=== PATIENT | female | born 1945 | race Caucasian/White ===

== ENCOUNTER 2017-10-07 01:42 | Inpatient (IN) | payer OTHER, MEDICARE ==
--- NOTE | 2017-10-01 15:59 | Cons- Neurosurgical ---
General Information and HPI Consulting Request Date of Consult: 10/01/17 Requested By: Dania HARRIS,Ray Rose Reason for Consult: Pseudo claudication and lumbar spinal stenosis Source of Information: patient Exam Limitations: no limitations History of Present Illness: 71-year-old right-handed lady in satisfactory condition intensive neurosurgical claudication many years back. She was operated on and 2013 Dr. Gonzales tediously from which she did very well however his symptoms have returned and she is unable to walk a city block without having to stop. She has cramping in her legs sensation of weakness as well as discomfort in her back Symptoms are worse with activity bending standing and walking is somewhat improved with rest Review of systems is positive for hearing problems She has been in physical therapy extensively without any strong persistent improvement Allergies/Medications Allergies: Coded Allergies: Sulfa (Sulfonamide Antibiotics) (Intermediate, SKIN TURNS PURPLE/HOT 09/24/17) Penicillins (Mild, ITCHING 09/24/17) aspirin (HX GASTRITIS 09/24/17) atorvastatin (PER PT MED LIST 09/24/17) prednisone (Severe, VISION CHANGES 09/24/17) Uncoded Allergies: ENVIRONMENTAL (UNKNOWN 07/20/13) MULTIPLE ANTIBIOTICS (UNKNOWN 07/20/13) Home Med List: Acetaminophen (Tylenol) 325 MG TABLET PAIN (Reported) Azelastine/Fluticasone (Dymista Nasal [place]) 137 MCG-50 MCG/SPRAY SPRAY.PUMP 1 SPRAY NASB PRN ALLERGIES (Reported) Budesonide/Formoterol Fumarate (Symbicort 160-4.5 Mcg Inhaler) 160 MCG-4.5 MCG/ ACTUATION HFA.AER.AD ASTHMA (Reported) Cetirizine HCl (Zyrtec) 10 MG CAPSULE aLLERGIES (Reported) Cholecalciferol (Vitamin D3) (Vitamin D) 1,000 UNIT TABLET 1 TAB PO DAILY SUPPLEMENT (Reported) Clopidogrel Bisulfate (Plavix) 75 MG TABLET 1 TAB PO DAILY ANTICOAGULATION ( Reported) Cyclobenzaprine HCl 5 MG TABLET SLEEP (Reported) Diltiazem HCl (Cartia Xt) 120 MG CAP.ER.24H 1 CAP PO DAILY CARDIAC (Reported) Docusate Sodium (Colace) 100 MG CAPSULE 1 CAP PO BID STOOL SOFTENER (Reported ) Gabapentin 300 MG CAPSULE 1 CAP PO PRN PAIN (Reported) Glimepiride 2 MG TABLET 1.5 TAB PO DAILY DM (Reported) Iron Carb,Gl/FA/B12/C/Docusate (Ferralet 90 Tablet) 90 MG-1 MG-12 MCG-120 MG-50 MG TABLET 1 TAB PO DAILY SUPPLEMENT (Reported) Losartan Potassium (Cozaar) 25 MG TABLET 1 TAB PO DAILY HTN (Reported) Magnesium Oxide (Magnesium) 400 MG CAPSULE 1 CAP PO DAILY SUPPLEMENT ( Reported) Melatonin 3 MG TABLET 1 TAB PO QPM SLEEP AID (Reported) Montelukast Sodium (Singulair) 10 MG TABLET 1 TAB PO DAILY ALLERGIES ( Reported) Multiple Vitamin (Multivitamins) 1 EACH TABLET 1 TAB PO DAILY SUPPLEMENT ( Reported) Multivit-Min/FA/Lutein/Zeaxant (Macular Vitamin Tablet) 500 MCG-5 MG-1 MG TABLET SUPPLEMENT (Reported) Omeprazole 40 MG CAPSULE.DR 1 CAP PO DAILY GERD (Reported) Sitagliptin Phosphate (Januvia) 100 MG TABLET 1 TAB PO DAILY DM (Reported) Tobramycin (Tobrex) 0.3 % DROPS 2 GTT OPH TID EYE (Reported) Current Medications: see attached list Past History Medical History Blood Transfusion Hx: No Neurological: TIA EENT: NONE Cardiovascular: hypertension, hyperlipidemia Respiratory: asthma, bronchitis, COPD, MRSA PNA Gastrointestinal: NONE Hepatic: NONE Renal: NONE Musculoskeletal: osteoarthritis, chronic back pain s/p spinal fusion; OA CARPAL TUNNEL Psychiatric: NONE Endocrine: NIDDM Blood Disorders: NONE Cancer(s): NONE 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 Home Who Do You Live With? spouse Services at Home: None Primary Language: Pashto Smoking Status: Never Smoked ETOH Use: denies use Illicit Drug Use: denies illicit drug use Living Will? unknown Power of Appliquer/HCP? unknown Name of POA/HCP: Dr. Rollins Other Social History: Not relevant Functional Ability ADLs Independent: dressing. Ambulation: independent IADLs Independent: shopping. Employment History Employment: Retired Profession/Employer: not applicable Retired? yes Review of Systems Review of Systems: She denies bowel or bladder or sexual dysfunction. She has hearing problems. Review of Systems Constitutional: Denies: no symptoms. EENTM: Reports: hearing changes. Denies: no symptoms. Cardiovascular: Denies: no symptoms. Respiratory: Denies: no symptoms. GI: Denies: no symptoms. Genitourinary: Denies: no symptoms. Musculoskeletal: Reports: see HPI. Skin: Denies: no symptoms. Neurological/Psychological: Denies: no symptoms. Hematologic/Endocrine: Denies: no symptoms. Immunologic/Allergic: Denies: no symptoms. All Other Systems: Reviewed and Negative Exam & Diagnostic Data Vital Signs and I&O . she stands 4 foot 11 and weighs 186pounds Physical Exam: To palpation of the incision. Preserved range of forward bending limitation of hyperextension. Her gait is within normal limits and she is able to stand on tiptoes Motor strength is 5 over 5 in all groups. She is areflexic at knee and ankle. Her toes are indifference. She has negative straight leg raising Physical Exam General Appearance: no apparent distress Head: atraumatic Eyes: Bilateral: normal appearance. Ears, Nose, Throat: normal pharynx Neck: normal inspection Respiratory: normal breath sounds Cardiovascular: regular rate/rhythm Breasts deferred to primary care Peripheral Pulses: 2+ carotid (R), 2+ carotid (L) Gastrointestinal: soft Rectal: deferred Back: normal inspection, normal range of motion Extremities: normal inspection Neurologic/Psych: no motor/sensory deficits Cranial Nerves: normal speech Reflexes: 0: knee (R), knee (L), ankle (R), ankle (L). Skin: intact Lymphatic: no anterior cervical fidel Reproductive: deferred Pelvic: deferred Other Physical Findings: Scars from previous surgery Last 24 Hours of Labs: Pending results from primary care Imaging Results: CT and MRI demonstrated satisfactory fusion, L4 5 L5-S1, shows a grade 1 retrolisthesis of L2 on L3 anterolisthesis grade 1 of L5 and S1 with a collapsed disc space at L5-S1. She has very severe canal stenosis and facet overgrowth at L2-3 and at L5-S1, significant spondylosis with irritation of nerve roots and the foramen Other Results: Pending Assessment/Plan Assessment/Plan She has severe spinal stenosis above and below levels were previous surgery. She requires surgery for treatment of cervical claudication Consult Acknowledgment - Thank you for your consult request.
[~2017-10-07] VITALS: Ht 149.9 cm; Wt 89.0 kg
[~2017-10-07 01:42] MED LIST: 8HR ARTHRITIS650 M1 PO; ALBUTEROL0.09 MG/A2 IH; AMARYL2 M1; ARTIFICIAL TEAR15 M2 OP; ATROVENT 0.02%2.5 ML INH; AZITHROMYCIN250 MG PO; CARTIA XT120 M1 PO; CHERATUSSIN AC120 ML PO; CHLORASEPTI1 LOZ/PAC PO; CLOPIDOGREL75 MG PO; COLACE100 M1 PO; COLACE100 MG PO; COZAAR 100MG T100 MG PO; COZAAR25 M1 PO; CRESTOR20 MG PO; CYCLOBENZAPRINE5 M2 PO; DIOVAN 40 MG40 MG PO; DIOVAN80 MG PO; DUONEB 3 MG/3 ML3 ML INH/SOL; DYMISTA NASAL S23 GM NASB; FERRALET 90 TA1 EACH PO; FLUTICASON0.05 MG/A2 NS; GABAPENTIN300 M2 PO; GLIMEPIRIDE2 MG PO; GLYBURIDE2.5 MG PO; GLYBURIDE5 MG PO; GUANFACINE HCL1 MG PO; HYDRALAZINE HCL50 MG PO; HYDRODIURIL 2525 MG PO; JANUVIA 100MG100 MG PO; JANUVIA100 M1 PO; LANSOPRAZOLE30 MG PO; LEADER MELATONIN5 MG PO; LIDODERM 5% PAT1 PAT EXT; LOSARTAN POTASS50 MG PO; MACULAR VITAMI1 EACH PO; MAGNESIUM OXID400 MG PO; MAGNESIUM400 M1 PO; MEDROL 2 MG TABL2 MG PO; MEDROL DOSEPAK1 PA1 PO; MELATONIN10 M5 PO; MELATONIN3 M4 PO; METHYLPREDNISOLO4 MG PO; MIRALAX17 GM PO; MONTELUKAST SOD10 MG PO; MOXIFLOXACIN H400 M1 PO; MULTIVITAMIN1 TAB PO; MULTIVITAMINS1 EAC9 PO; NORVASC 5MG TAB5 MG PO; NOVOLOG100 U/ML SC; OMEPRAZOLE40 M1 PO; PLAVIX75 M1 PO; PROAIR HFA0.09 MG/Ac INH; PROAIR HFA8.5 GM INH; ROBITUSSIN COU118 ML PO; ROBITUSSIN W/CO10 ML PO; Robitussin PO; SINGULAIR10 M1 PO; SYMBICORT 160/41 PUF INH; SYMBICORT 16010.2 GM INH; TESSALON PERLE100 MG PO; TOBREX5 ML OPH; TRAMADOL50 MG PO; TYLENOL TAB 32325 MG PO; TYLENOL325 M1; TYLENOL325 MG PO; VALSARTAN80 MG PO; VANCOMYCIN 11000 MG IV; VANCOMYCIN HC1000 MG IV; VENTOLIN H0.09 MG/Ac INH; VICODIN5-300 PO; VITAMIN C500 M3 PO; VITAMIN C500 M6 PO; VITAMIN D NATU400 IU PO; VITAMIN D1000 UNIT PO; ZYRTEC ALLERGY10 MG PO; ZYRTEC10 M6 PO
--- NOTE | 2017-10-07 16:06 | RADIOLOGY REPORT ---
EXAMINATION: XR LUMBOSACRAL SPINE CLINICAL INFORMATION: 71-year-old female for L2-L3 and L5-S1 fusion. COMPARISON: MRI of the lumbosacral spine done on 10/06/[address] of the lumbosacral spine done on 01/05/2017. TECHNIQUE: Multiple fluoroscopic spot radiographs were obtained at the time of the procedure. FLUOROSCOPY TIME: 1 minute and 7 seconds. FINDINGS: Fluoroscopic assistance is provided at the time of the spinal fusion. Postsurgical changes of previous posterior spinal fusion are noted at L3 through L5 showing intact hardware and satisfactory alignment. New radiopaque hardware is identified at L2-L3 and L5-S1 disc space. IMPRESSION: New radiopaque hardware is visualized at L2-L3 and L5-S1. Please refer to Dr. Najera's operative note for further full details.
--- NOTE | 2017-10-07 17:11 | Operative Report ---
Operative/Inv Procedure Report Surgery Date: 10/07/17 Name of Procedure: #1 decompressive lumbar laminectomy L2-3 #2 decompressive lumbar laminectomy L5 S1. #3 revision laminectomy L3-4 #4 neurolysis L3 4 #5 preparation of space for fusion L5-S1 #6 reconstitution of graft material #7 insertion of TL ORIF fuse F UAC cage L5-S1 left As secondary #8 stealth registration #9 stealth guided pedicle screw insertion L2-3 L5 S1 #10 arthrodesis bilateral L2 to S1 #11 pedicle screw insertion L3 4 L4 5 bilateral #12 installation of vancomycin antibiotic Pre-Operative Diagnosis: #1 spondylolisthesis L2-3 #2 spinal stenosis L2-3 #3 spinal stenosis L5-S1 #4 status post fusion L3 to L5 Post-Operative Diagnosis: same Estimated Blood Loss: 1200cc Surgeon/Server Programmer: Dania HARRIS,Ray Rose(co-surgeon) MD Dempsey Michael Anesthesia: general endotracheal tube Monitors: neurophysiology arterial line IV Fluids: D5NS Implants: 11 11 mm x 24 mm x 4 fuse cage at L5-S1 Urine Output: Satisfactory Drains: 2xhemovacs Specimens: explanted hardware Microbiology: none Tourniquet: none Complications: none Condition: stable Operative Indication: 71-year-old woman who is status post multilevel fusion and did well for a few years and then developed significant back pain and leg pain especially in her thighs and difficulty ambulating Her films demonstrated significant spinal stenosis at the level above and below the fusion with an element of instability at the level above the fusion and to a lesser degree at the level beneath the fusion Indication for surgery alternative risks and possible complication were discussed at length patient elected to have surgery performed O guarantees given all questions answered Operative/Procedure Note Note: Patient was brought to the operating room supine was intubated supine and placed prone on the Leo table. All surfaces were double checked with myself Ray Najera MD anesthesia to verify that there were no compromises The patient was given vancomycin intravenously because of the allergies Her back was prepped and draped in usual sterile manner and infiltrated with lidocaine and epinephrine. Sharp dissection was carried down to the aponeurosis was taken down on both sides of the midline and the lamina of 2 and 5 were identified and the transverse processes of 2 and 5 likewise identified. The previous hardware was identified and from scar tissue and the underlying bone and was then removed by Ray Najera MD and this we dictated separately Following this a film was obtained demonstrating a marker under the lamina of L2 and following this the spinous processes of L2 was removed the lamina of L2 fins and limp full laminectomy at L2-3 accomplished with a medial facetectomy and foraminotomy. It was noted that there was still significant stenosis at that point in this required taking down the root a no growth of lamina as well as residual lamina at the L3 4 level. This requires significant neural lysis then to free the dura and nerve tissue from the scar Attention was then directed to the L5-S1 level where the spinous process of L5 was removed and the whole lamina of L5 removed and a full exposure L5-S1 accomplish and foraminotomies accomplished bilaterally and a foraminotomy and facetectomy accomplished medially on the left. Following this the dura was retracted the annulus incised at the L5-S1 level disc removed and using dilation instruments 689 and 10 up to 11 mm it was verified that the space can tolerate a cage 11 mm. DBF graft on was prepared with patient's autologous blood and reconstituted. Following this the space was prepped by aggressive curettes used and upper up- biting and straight pituitaries following which the cage was inserted in the standard fashion under direct visualization and under C-arm control and with continuous neurophysiological monitoring which remained normal Attention was then directed to the L2-3 space 40 approach was made from the right hand side doing the exact same decompression insertion and placement of cage and this was done by Ray Najera MD will be dictated separately is to be noted that in both cases the spaces prior to an the insertion of the cage were packed with DBF graft on the autologous bone Following this, and this is going to be dictated separately, the stealth registration was accomplished pedicle screws were inserted bilaterally at L2. There were then also inserted at S1. The O arm was used to verify positioning and this suggested repositioning the left handed the screw at L2 which was done. After correct position was verified and all the neurophysiological monitoring was normal V spaces were prepped for the fusion the rods were inserted over the pedicles and were attached both autologous and allograft material was used in both gutters to accomplish arthrodesis 2 Hemovac drains were placed vancomycin was placed over the both gutters. The muscle was closed in depth with 0 Dexon muscle and aponeurosis were then closed with 0 Dexon subcutaneous and subcuticular tissue were closed with 3-0 Dexon and skin closed with stainless steel maya a full dressing was applied and the patient was in satisfactory condition upon removal to the recovery room Findings: Scarring, stenosis, spondylosis Discharge Disposition: PACU Additional Comments: Neurophysiological monitoring remained perfectly normal. Anesthesia had a lot of intervention required to keep the blood pressure and a satisfactory range CC: Dania HARRIS,Ray Rose
[2017-10-07 17:27] LABS: ABSOLUTE BASOPHIL COUNT 0.1 /CUMM (0.0-0.2); ABSOLUTE EOSINOPHIL COUNT 0.1 /CUMM (0.0-0.7); ABSOLUTE GRANULOCYTE CT 17.6 /CUMM (1.4-6.5); ABSOLUTE LYMPH COUNT 3.3 /CUMM (1.2-3.4); ABSOLUTE MONOCYTE COUNT 1.9 /CUMM (0.10-0.60); BASOPHIL % 0.6 % (0.0-2.0); EOSINOPHIL % 0.6 % (0-5); GRANULOCYTE % 76.4 % (42.2-75.2); MEAN CORPUSCULAR HGB 29.1 PG (27.0-31.0); MEAN CORPUSCULAR HGB CONC 33.8 G/DL (33.0-37.0); MEAN CORPUSCULAR VOLUME 85.9 FL (81.0-99.0); MEAN PLATELET VOLUME 7.9 FL (7.4-10.4); PLATELET COUNT 193 /CUMM (130-400); RBC DISTRIBUTION WIDTH 13.6 % (11.5-14.5); RED BLOOD CELL CT 3.61 /CUMM (4.20-5.40)
--- NOTE | 2017-10-07 17:46 | RADIOLOGY REPORT ---
EXAMINATION: XR LUMBOSACRAL SPINE CLINICAL INFORMATION: L2-L3, L3-L4, L4-L5 and L5-S1 laminectomy and fusion performed in operating room. COMPARISON: Recent lumbar spine MRI from 10/06/2017. TECHNIQUE: Intraoperative fluoroscopic and intraoperative CT imaging of lumbar spine performed. DLP was 1098 mGycm Fluoro time was 11.42 sec DAP was 692 Rcm2 FINDINGS: Please refer to accession # [id number]. The intraoperative CT images were obtained. Patient has undergone multilevel laminectomy and spinal fusion. The pedicle screws are in satisfactory position. Findings include intervertebral cage placement at L2-L3 and L5-S1. Postoperative edema/fluid and gas in the posterior paraspinal region. IMPRESSION: Intraoperative CT imaging of lumbar spine was utilized.
[2017-10-07 18:26] LABS: ABSOLUTE BASOPHIL COUNT 0.1 /CUMM (0.0-0.2); ABSOLUTE EOSINOPHIL COUNT 0.1 /CUMM (0.0-0.7); ABSOLUTE GRANULOCYTE CT 19.6 /CUMM (1.4-6.5); ABSOLUTE LYMPH COUNT 3.1 /CUMM (1.2-3.4); BASOPHIL % 0.2 % (0.0-2.0); EOSINOPHIL % 0.4 % (0-5); GRANULOCYTE % 78.9 % (42.2-75.2); HEMATOCRIT 31.4 % (37-47); MEAN CORPUSCULAR HGB 28.8 PG (27.0-31.0); MEAN CORPUSCULAR HGB CONC 33.6 G/DL (33.0-37.0); MEAN CORPUSCULAR VOLUME 85.8 FL (81.0-99.0); MEAN PLATELET VOLUME 7.9 FL (7.4-10.4); PLATELET COUNT 193 /CUMM (130-400); RBC DISTRIBUTION WIDTH 13.5 % (11.5-14.5); RED BLOOD CELL CT 3.66 /CUMM (4.20-5.40); WHITE BLOOD CELL COUNT 24.8 /CUMM (4.8-10.8)
--- NOTE | 2017-10-07 18:52 | RADIOLOGY REPORT ---
EXAMINATION: XR PORTABLE CHEST CLINICAL INFORMATION: 71-year-old woman post intubation. COMPARISON: 09/25/2017 chest radiograph TECHNIQUE: Portable frontal view of the chest was obtained. FINDINGS: Lung volumes are somewhat low, accentuating normal bronchovascular markings. A new endotracheal tube is seen with its tip at the level of the thoracic inlet, about 3.5 cm from the dashawn. No definite focal airspace consolidation or overt pulmonary edema is appreciated. Heart size is approximately stable. IMPRESSION: Low lung volumes with endotracheal tube placement as described.
--- NOTE | 2017-10-07 19:30 | Cons- CRCU ---
General Information and HPI Consulting Request Date of Consult: 10/07/17 Requested By: Dr Najera Reason for Consult: Hypotension requiring pressors Source of Information: old records Exam Limitations: unable to give history, clinical condition, physical impairment History of Present Illness: This is a 71-year-old female with past medical history significant for asthma, COPD not on home oxygen, history of multiple admissions for MRSA pneumonia, hypertension, hyperlipidemia, diabetes mellitus, TIA on Plavix, insomnia, GERD, osteoarthritis, carpal tunnel syndrome, peripheral vascular disease, bilateral lung nodules, previous occluded right internal carotid artery with no significant flow, chronic back pain status post spinal fusion in 2012, was admitted to surgical service on 10/06/2017 for severe back pain, and claudication, found to have severe spinal stenosis requiring laminectomy. She is status post lumbar laminectomy on 10/07/2017, underwent surgery for 9 hours, intubated for the procedure, hypotensive requiring pressors. Medical team was consulted for management of hypotension/ventilator management. Patient was intubated, we couldn't get any history from her. However according to the charts, Patient has extensive neurosurgical history. She has chronic back pain, underwent lumbar surgery in 2012. However patient has been having back pain, bilateral leg pain, thigh pain associated with lower extremity weakness for a few months. Increased with activity, bending, sitting, walking. Decreased with rest. No improvement with physical therapy. MRI BACK 10/06/2017 Status post posterior lumbar interbody fusion with decompressive laminectomies at L3-L4 and L4-L5 with a stable mild anterolisthesis at the L4-L5 level. Retrosubluxation at L2-L3 with a diffuse disc bulge and broad-based right posterolateral disc protrusion are stable. Severe central canal stenosis with thecal sac compression and exuberant facet arthropathy. PACU EVENTS She has very severe canal stenosis and facet overgrowth at L2-3 and at L5-S1, significant spondylosis with irritation of nerve roots and the foramen. Underwent decompressive lumbar laminectomy L2-L3, L5-S1, revision laminectomy L3 -L4 by on 10/07/2017. She was intubated for the surgery, which lasted for about 9 hours with 1200 mL blood loss. She did have a Cell Saver and apparently she did receive back about half a liter of blood. Patient was under general anesthesia for a prolonged period of time with continuous neurophysiological monitoring. She was receiving propofol and subsequently fentanyl. Apparently during the surgery she became significantly bradycardic and went into junctional rhythm. Initially she was hemodynamically stable and subsequently she became profoundly hypotensive during the surgery requiring more than 5 L of normal saline resuscitation. She was treated with epinephrine drip with resolution of her junctional rhythm now in sinus bradycardia. And slowly the epinephrine drip is now being weaned off. According to the documentation, review of systems was negative except for above. Allergies/Medications Allergies: Coded Allergies: Sulfa (Sulfonamide Antibiotics) (Intermediate, SKIN TURNS PURPLE/HOT 09/24/17) Penicillins (Mild, ITCHING 09/24/17) aspirin (HX GASTRITIS 10/06/17) ASA->BLEEDING atorvastatin (PER PT MED LIST 09/24/17) prednisone (Severe, VISION CHANGES 09/24/17) Uncoded Allergies: ENVIRONMENTAL (UNKNOWN 07/20/13) MULTIPLE ANTIBIOTICS (UNKNOWN 07/20/13) Home Med List: Acetaminophen (8HR Arthritis Pain Relief) 650 MG TABLET.ER 2 TAB PO QHS PAIN (Reported) Albuterol Sulfate (Proair Hfa) 90 MCG HFA.AER.AD 2 PUF INH PRN ASTHMA/ ALLERGIES (Reported) Ascorbate Calcium (Vitamin C) 500 MG TABLET 1 TAB PO DAILY SUPPLEMENT ( Reported) Azelastine/Fluticasone (Dymista Nasal [place]) 137 MCG-50 MCG/SPRAY SPRAY.PUMP 1 SPRAY NASB PRN ALLERGIES (Reported) Budesonide/Formoterol Fumarate (Symbicort 160-4.5 Mcg Inhaler) 160 MCG-4.5 MCG/ ACTUATION HFA.AER.AD 2 PUFF INH BID ASTHMA/ALLERGIES (Reported) Cetirizine HCl (Zyrtec) 10 MG CAPSULE 1 CAP PO DAILY ALLERGIES (Reported) Cholecalciferol (Vitamin D3) (Vitamin D) 1,000 UNIT TABLET 1 TAB PO DAILY SUPPLEMENT (Reported) Clopidogrel Bisulfate (Plavix) 75 MG TABLET 1 TAB PO DAILY ANTICOAGULATION ( Reported) Cyclobenzaprine HCl 5 MG TABLET 1 TAB PO QHS MUSCLE SPASMS (Reported) Diltiazem HCl (Cartia Xt) 120 MG CAP.ER.24H 1 CAP PO DAILY CARDIAC (Reported) Docusate Sodium (Colace) 100 MG CAPSULE 1 CAP PO BID STOOL SOFTENER (Reported ) Gabapentin 300 MG CAPSULE 1 CAP PO PRN PAIN (Reported) Glimepiride 2 MG TABLET 1.5 TAB PO DAILY DM (Reported) Iron Carb,Gl/FA/B12/C/Docusate (Ferralet 90 Tablet) 90 MG-1 MG-12 MCG-120 MG-50 MG TABLET 1 TAB PO DAILY SUPPLEMENT (Reported) Losartan Potassium (Cozaar) 25 MG TABLET 1 TAB PO DAILY HTN (Reported) Magnesium Oxide (Magnesium) (Unknown Strength) CAPSULE (Unknown Dose) PO TID SUPPLEMENT (Reported) Melatonin 10 MG CAPSULE 1 CAP PO QPM SLEEP (Reported) Montelukast Sodium (Singulair) 10 MG TABLET 1 TAB PO DAILY ALLERGIES ( Reported) Multiple Vitamin (Multivitamins) 1 EACH TABLET 1 TAB PO DAILY SUPPLEMENT ( Reported) Multivit-Min/FA/Lutein/Zeaxant (Macular Vitamin Tablet) 500 MCG-5 MG-1 MG TABLET 1 TAB PO DAILY SUPPLEMENT (Reported) Omeprazole 40 MG CAPSULE.DR 1 CAP PO DAILY AC GERD (Reported) Sitagliptin Phosphate (Januvia) 100 MG TABLET 1 TAB PO DAILY DM (Reported) Tobramycin (Tobrex) 0.3 % DROPS 2 GTT OPH TID EYE (Reported) Current Medications: Current Medications Sig/Clementine Start time Last Medication Dose Route Stop Time Status Admin Acetaminophen 1,000 MG .STK-MED ONE 10/07 0645 DC IV 10/07 0646 Cefazolin Sodium 2,000 MG ONCE 10/07 0000 NR IV 10/07 2359 Fentanyl Citrate 250 MCG .STK-MED ONE 10/07 0645 DC IM 10/07 0646 Midazolam HCl 4 MG .STK-MED ONE 10/07 0646 DC IM 10/07 0647 Morphine Sulfate 8 MG .STK-MED ONE 10/07 0646 DC IM 10/07 0647 Remifentanil 3 MG .STK-MED ONE 10/07 0646 DC IV 10/07 0647 Review of Systems Comments ROS UNOBTAINABLE Past History Medical History Blood Transfusion Hx: No Neurological: TIA EENT: NONE Cardiovascular: hypertension, hyperlipidemia Respiratory: asthma, bronchitis, COPD, MRSA PNA Gastrointestinal: NONE Hepatic: NONE Renal: NONE Musculoskeletal: osteoarthritis, chronic back pain s/p spinal fusion; OA CARPAL TUNNEL Psychiatric: NONE Endocrine: NIDDM Blood Disorders: NONE Cancer(s): NONE 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 Home Who Do You Live With? spouse Primary Language: Croatian Smoking Status: Never Smoked ETOH Use: denies use Illicit Drug Use: denies illicit drug use Living Will? unknown Power of Information Services Vice President/HCP? unknown Name of POA/HCP: Dr. Rollins Other Social History: Not relevant Functional Ability ADLs Independent: dressing. Ambulation: independent IADLs Independent: shopping. Employment History Employment: Retired Profession/Employer: not applicable Exam & Diagnostic Data Last 24 Hrs of Vital Signs/I&O Vital Signs Date Time Temp Pulse Resp B/P B/P Pulse O2 O2 Flow FiO2 Mean Ox Delivery Rate 10/07 1730 100 Physical Exam General Appearance: well developed/nourished, no apparent distress, sedated, intubated Head: atraumatic, normal appearance Ears, Nose, Throat: normal pharynx Neck: normal inspection Respiratory: decreased breath sounds, rhonchi Cardiovascular: regular rate/rhythm Gastrointestinal: normal bowel sounds, soft, non-tender Back: S/P LUMBAR LAMINECTOMY AND [address] Extremities: no edema Last 48 Hrs of Labs/Chucky: Laboratory Tests 10/07/17 1805: pH 7.45, pCO2 25 L, pO2 228 H, HCO3 17 L, ABG O2 Sat (Measured) 98.0, P-50 ( Temp Corrected) N, Carboxyhemoglobin 0.3 L, O2 Concentration % 100%, Temperature 97.2, Respiration Rate 16, O2 Delivery Method ESPRIT, Vent Mode AC, Expiratory Pressure 5, Tidal Volume 500, Phlebotomy Draw Site CRUZITO 10/07/17 1754: Magnesium Cancelled 10/07/17 1710: CBC w Diff NO MAN DIFF REQ, RBC 3.61 L, MCV 85.9, MCH 29.1, MCHC 33.8, RDW 13.6 , MPV 7.9, Gran % 76.4 H, Lymphocytes % 14.3 L, Monocytes % 8.1, Eosinophils % 0.6, Basophils % 0.6, Absolute Granulocytes 17.6 H, Absolute Lymphocytes 3.3, Absolute Monocytes 1.9 H, Absolute Eosinophils 0.1, Absolute Basophils 0.1 10/07/17 1655: Anion Gap 8, Estimated GFR 54 L, BUN/Creatinine Ratio 19.0, Magnesium 1.1 L, Troponin I 0.03, Cortisol PM Sample 27.9 H, CBC w Diff NO MAN DIFF REQ, RBC 3.66 L, MCV 85.8, MCH 28.8, MCHC 33.6, RDW 13.5, MPV 7.9, Gran % 78.9 H, Lymphocytes % 12.4 L, Monocytes % 8.1, Eosinophils % 0.4, Basophils % 0.2, Absolute Granulocytes 19.6 H, Absolute Lymphocytes 3.1, Absolute Monocytes 2.0 H, Absolute Eosinophils 0.1, Absolute Basophils 0.1 Assessment/Plan CRCU Impression/Plan: This is a 71-year-old female with past medical history significant for asthma, COPD not on home oxygen, history of multiple admissions for MRSA pneumonia, hypertension, hyperlipidemia, diabetes mellitus, TIA on Plavix, insomnia, GERD, osteoarthritis, carpal tunnel syndrome, peripheral vascular disease, bilateral lung nodules, previous occluded right internal carotid artery with no significant flow, chronic back pain status post spinal fusion in 2012, was admitted to surgical service on 10/06/2017 for severe back pain, and claudication, found to have severe spinal stenosis requiring laminectomy. She is status post lumbar laminectomy on 10/07/2017, underwent surgery for 9 hours, intubated for the procedure, hypotensive requiring pressors. Medical team was consulted for management of hypotension/ventilator management. Vitals afebrile, heart rate 50-60, blood pressure 110/70, saturating at 99, intubated tidal volume 500, FiO2 60%, PEEP 5, respiratory rate 16. labs Leukocytosis 23, no bandemia, hemoglobin 10.5, hematocrit 31, platelets 190 ABG 7.4, 2009 Sodium 134, potassium 4.2, BUN 19 creatinine 1 Mag 1.1 CHEST x-ray low lung volumes for with endotracheal tube placement, no consolidation or pulmonary edema - Severe lumbar spinal stenosis status post laminectomy She has very severe canal stenosis and facet overgrowth at L2-3 and at L5-S1, significant spondylosis with irritation of nerve roots and the foramen. She was admitted under surgical service on 10/06/2017 for elective surgery. * Underwent decompressive lumbar laminectomy L2-L3, L5-S1, revision laminectomy L3-L4 by on 10/07/2017. * She was intubated after the surgery * Surgery lasted for about 9 hours with 1200 mL blood loss. She did have a Cell Saver and apparently she did receive back about half a liter of blood. * Postoperative wound care as per neurosurgery team * [address] * Venodyne boots ordered * No anticoagulationplavix home med/ DVT prophylaxis given back surgery * Patient was given 1 dose of cefazolin before her surgery. She was started on vancomycin as per primary team. * Continue antibiotics as per surgical team Postoperative respiratory failure Patient had extensive lumbar surgery for 8 hours, required anesthesia for long time, propofol, remifentanil. She was intubated postoperatively for respiratory failure due to prolonged anesthesia. Also she was noted to have apnea periods during her surgery. * Status post intubated * Ventilator settings respiratory rate 16, tidal volume 500, PEEP 5, FiO2 60% * Started on fentanyl IV drip-titrate to mild sedation * Aspiration precautions * Continue to monitor vitals and ventilator settings * DUO. Nebs every 8 hours * ABG in the a.m. * Chest x-ray in a.m. * We'll keep her on ventilator tonight given her prolonged periods of apnea during surgery * Will start weaning trials in morning and extubate if needed * IV Protonix 40 daily Hypotension/SHOCK requiring pressors Patient was found to have significant hypotension during her surgery, SBP was noted to be around 60-70. Hypotension most likely from propofol sedation for longer periods of time. Also patient was found to have significant blood loss 1200 mL due to extensive lumbar surgery which might have led to hypotension. Patient received 5 L of IV fluid resuscitation during her surgery. Later she was started on levo fed through her PICC line to maintain adequate blood pressure support, map goal greater than 65. * Epinephrine drip now weaned off * Blood pressure ranging in between 120-130 * If necessary will start dopamine drip for hypotension given her sinus bradycardia * Continue D5 Ringer's lactated 75 mL per hour, adjust accordingly based on her urine output * Monitor urine output * Map goals 60-65 * Monitor hemoglobin and hematocrit closely * Transfuse if hemoglobin falls less than 7 * Follow-up random cortisol level * If patient's blood pressure starts to rise can give her amlodipine followed by her home medication losartan Significant sinus bradycardia/junctional rhythm Patient was found to be in in junctional rhythm, later sinus bradycardia during her surgery. Sinus bradycardia most likely from prolonged GERD propofol sedation. She follows Dr. Young aquarist. Echocardiogram in 2014 showed ejection fraction 65%. * Will get troponin and EKG * Continuous telemetry monitoring * Cardiology consult in a.m. * Rule out ACS Leukocytosis Patient was found to have elevated WBC count 23,000, no bandemia at the time of admission. She has history of chronic leukocytosis with the baseline WBC ranging around 15,000. Chest x-ray was clear, no pneumonia or consolidation was found. Will follow-up her urine cultures. * Monitor for any fever, worsening leukocytosis * No source of infection found * Most possibly from STRESS/surgery * Patient is on postoperative antibiotics vancomycin as per surgical team Hypomagnesemia Patient was found to have low mag 1.1. Repleted with 2 bags of IV mag sulfate Follow-up electrolytes in the a.m. Follow-up phosphorus History of diabetes mellitus Patient has diabetes mellitus type 2, takes oral hypoglycemic agents. Fingersticks every 4 hours Novolin nothing by mouth sliding scale was ordered Continue d5 RL Hold her home medications oral hypoglycemic agents glimepiride and sitagliptin for now COPD continue [facility] nebs H/O TIA 2012- Prominent calcified plaque is seen in the right ICA as described, with only trickle flow noted in the proximal and mid ICA, and no definite flow in the distal ICA. There is no hemodynamically significant stenosis in the left ICA. * Continue holding Plavix 75 daily given back surgery. History of hypertension Takes losartan 25 and Cardizem 120 extended release daily Hold them for now given hypotension Patient is full code Nothing by mouth, intubated Pain pathway fentanyl drip Alps given back surgery for DVT prophylaxis Housekeeping IntubatION-yes PICC line-10/06/2017-double lumen peripheral line-yes Arterial line-yes-10/07/2017 Foleys catheter yes NG tube-none back surgery- [address] Consult Acknowledgment - Thank you for your consult request.
--- NOTE | 2017-10-07 19:34 | Cons- CRCU ---
General Information and HPI Consulting Request Date of Consult: 10/07/17 Requested By: surg History of Present Illness: PT followed by Dr. Kahn as out pt This is a lady with extensive past history which includes MRSA pneumonia, significant asthma history, chronic bronchitis, significant chronic low back pain, hypertension, diabetes, hyperlipidemia, previous spirometry and pulmonary function test showing mild obstructive pulmonary disease, peripheral vascular disease, bilateral lung nodules which has been stable, coronary artery calcification, goiter, previous occluded right internal carotid artery with no significant flow, previous lumbar surgery now with significant pain and claudication had a very prolonged surgery today with extensive lumbar disc and vertebrae surg. Patient did go through significant amount of blood loss approximately 1200 mL. She did have a Cell Saver and apparently she did receive back about half a liter of blood. Patient was under general anesthesia for a prolonged period of time with continuous neurophysiological monitoring. She was receiving propofol and subsequently fentanyl. Apparently during the surgery she became significantly bradycardic and went into junctional rhythm. Initially she was hemodynamically stable and subsequently she became profoundly hypotensive during the surgery requiring more than 5 L of normal saline resuscitation. She was treated with epinephrine drip with resolution of her junctional rhythm now in sinus bradycardia. And slowly the epinephrine drip is now being weaned off. When I saw her she was intubated just coming out of anesthesia. She was awake and was following commands. She did move all her limbs. The heart rate was about 52 and she was in sinus bradycardia. No other history could be obtained. Allergies/Medications Allergies: Coded Allergies: Sulfa (Sulfonamide Antibiotics) (Intermediate, SKIN TURNS PURPLE/HOT 09/24/17) Penicillins (Mild, ITCHING 09/24/17) aspirin (HX GASTRITIS 10/06/17) ASA->BLEEDING atorvastatin (PER PT MED LIST 09/24/17) prednisone (Severe, VISION CHANGES 09/24/17) Uncoded Allergies: ENVIRONMENTAL (UNKNOWN 07/20/13) MULTIPLE ANTIBIOTICS (UNKNOWN 07/20/13) Home Med List: Acetaminophen (8HR Arthritis Pain Relief) 650 MG TABLET.ER 2 TAB PO QHS PAIN (Reported) Albuterol Sulfate (Proair Hfa) 90 MCG HFA.AER.AD 2 PUF INH PRN ASTHMA/ ALLERGIES (Reported) Ascorbate Calcium (Vitamin C) 500 MG TABLET 1 TAB PO DAILY SUPPLEMENT ( Reported) Azelastine/Fluticasone (Dymista Nasal [place]) 137 MCG-50 MCG/SPRAY SPRAY.PUMP 1 SPRAY NASB PRN ALLERGIES (Reported) Budesonide/Formoterol Fumarate (Symbicort 160-4.5 Mcg Inhaler) 160 MCG-4.5 MCG/ ACTUATION HFA.AER.AD 2 PUFF INH BID ASTHMA/ALLERGIES (Reported) Cetirizine HCl (Zyrtec) 10 MG CAPSULE 1 CAP PO DAILY ALLERGIES (Reported) Cholecalciferol (Vitamin D3) (Vitamin D) 1,000 UNIT TABLET 1 TAB PO DAILY SUPPLEMENT (Reported) Clopidogrel Bisulfate (Plavix) 75 MG TABLET 1 TAB PO DAILY ANTICOAGULATION ( Reported) Cyclobenzaprine HCl 5 MG TABLET 1 TAB PO QHS MUSCLE SPASMS (Reported) Diltiazem HCl (Cartia Xt) 120 MG CAP.ER.24H 1 CAP PO DAILY CARDIAC (Reported) Docusate Sodium (Colace) 100 MG CAPSULE 1 CAP PO BID STOOL SOFTENER (Reported ) Gabapentin 300 MG CAPSULE 1 CAP PO PRN PAIN (Reported) Glimepiride 2 MG TABLET 1.5 TAB PO DAILY DM (Reported) Iron Carb,Gl/FA/B12/C/Docusate (Ferralet 90 Tablet) 90 MG-1 MG-12 MCG-120 MG-50 MG TABLET 1 TAB PO DAILY SUPPLEMENT (Reported) Losartan Potassium (Cozaar) 25 MG TABLET 1 TAB PO DAILY HTN (Reported) Magnesium Oxide (Magnesium) (Unknown Strength) CAPSULE (Unknown Dose) PO TID SUPPLEMENT (Reported) Melatonin 10 MG CAPSULE 1 CAP PO QPM SLEEP (Reported) Montelukast Sodium (Singulair) 10 MG TABLET 1 TAB PO DAILY ALLERGIES ( Reported) Multiple Vitamin (Multivitamins) 1 EACH TABLET 1 TAB PO DAILY SUPPLEMENT ( Reported) Multivit-Min/FA/Lutein/Zeaxant (Macular Vitamin Tablet) 500 MCG-5 MG-1 MG TABLET 1 TAB PO DAILY SUPPLEMENT (Reported) Omeprazole 40 MG CAPSULE.DR 1 CAP PO DAILY AC GERD (Reported) Sitagliptin Phosphate (Januvia) 100 MG TABLET 1 TAB PO DAILY DM (Reported) Tobramycin (Tobrex) 0.3 % DROPS 2 GTT OPH TID EYE (Reported) Review of Systems Comments Could not be obtained intubated sedated Past History Medical History Blood Transfusion Hx: No Neurological: TIA EENT: NONE Cardiovascular: hypertension, hyperlipidemia Respiratory: asthma, bronchitis, COPD, MRSA PNA Gastrointestinal: NONE Hepatic: NONE Renal: NONE Musculoskeletal: osteoarthritis, chronic back pain s/p spinal fusion; OA CARPAL TUNNEL Psychiatric: NONE Endocrine: NIDDM Blood Disorders: NONE Cancer(s): NONE 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 Home Who Do You Live With? spouse Primary Language: Luxembourgish Smoking Status: Never Smoked ETOH Use: denies use Illicit Drug Use: denies illicit drug use Living Will? 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 Rollins Other Social History: Not relevant Functional Ability ADLs Independent: dressing. Ambulation: independent IADLs Independent: shopping. Employment History Employment: Retired Profession/Employer: not applicable Exam & Diagnostic Data Last 24 Hrs of Vital Signs/I&O Vital Signs Date Time Temp Pulse Resp B/P B/P Pulse O2 O2 Flow FiO2 Mean Ox Delivery Rate 10/07 1730 100 Last 48 Hrs of Labs/Chucky: Laboratory Tests 10/07/17 1805: pH 7.45, pCO2 25 L, pO2 228 H, HCO3 17 L, ABG O2 Sat (Measured) 98.0, P-50 ( Temp Corrected) N, Carboxyhemoglobin 0.3 L, O2 Concentration % 100%, Temperature 97.2, Respiration Rate 16, O2 Delivery Method ESPRIT, Vent Mode AC, Expiratory Pressure 5, Tidal Volume 500, Phlebotomy Draw Site [place] 10/07/17 1754: Magnesium Cancelled 10/07/17 1710: CBC w Diff NO MAN DIFF REQ, RBC 3.61 L, MCV 85.9, MCH 29.1, MCHC 33.8, RDW 13.6 , MPV 7.9, Gran % 76.4 H, Lymphocytes % 14.3 L, Monocytes % 8.1, Eosinophils % 0.6, Basophils % 0.6, Absolute Granulocytes 17.6 H, Absolute Lymphocytes 3.3, Absolute Monocytes 1.9 H, Absolute Eosinophils 0.1, Absolute Basophils 0.1 10/07/17 1655: Anion Gap 8, Estimated GFR 54 L, BUN/Creatinine Ratio 19.0, Magnesium 1.1 L, Troponin I 0.03, Cortisol PM Sample Pending, CBC w Diff NO MAN DIFF REQ, RBC 3.66 L, MCV 85.8, MCH 28.8, MCHC 33.6, RDW 13.5, MPV 7.9, Gran % 78.9 H, Lymphocytes % 12.4 L, Monocytes % 8.1, Eosinophils % 0.4, Basophils % 0.2, Absolute Granulocytes 19.6 H, Absolute Lymphocytes 3.1, Absolute Monocytes 2.0 H, Absolute Eosinophils 0.1, Absolute Basophils 0.1 Assessment/Plan CRCU Impression/Plan: CORTEZ Obese lady Intubated Vitals reviewed HR 52 sinus bp 110/70 sat 99 on 60 percent fio2 Moves all limbs Neck supp no jvd, bruit noted Chest reduced bs, no rhonchi, mild wheezing Abd soft obese non tender Back s/p surg with 2 drains Ext trace edema neuro intact This is a lady with extensive past history which includes MRSA pneumonia, significant asthma history, chronic bronchitis, significant chronic low back pain, hypertension, diabetes, hyperlipidemia, previous spirometry and pulmonary function test showing mild obstructive pulmonary disease, peripheral vascular disease, bilateral lung nodules which has been stable, coronary artery calcification, goiter, previous occluded right internal carotid artery with no significant flow, previous lumbar surgery now with significant pain and claudication had extensive surgery today with extensive lumbar surgery. Patient did go through significant amount of blood loss approximately 1200 mL. She did have a Cell Saver and apparently she did receive back about half a liter of blood. Patient was under general anesthesia for a prolonged period of time with continuous neurophysiological monitoring. She was receiving propofol and subsequently fentanyl. Apparently during the surgery she became significantly bradycardic and went into junctional rhythm. Initially she was hemodynamically stable and subsequently she became profoundly hypotensive during the surgery requiring more than 5 L of normal saline resuscitation. She was treated with epinephrine drip with resolution of her junctional rhythm now in sinus bradycardia. And slowly the epinephrine drip is now being weaned off. Attempted spontaneous breathing trial was not sucessful and hence needs to be intubated overnight ISSUES include * Postoperative respiratory failure due to prolonged anesthesia now noted periods of apnea during postanesthesia (patient had extensive lumbar surgery and a very long anesthesia time) * Significant bradycardia, junctional rhythm, significant hypotension during prolonged period of anesthesia which included propofol and fentanyl as she needed to have neurophysiological monitoring. This may be related to propofol causing significant bradycardia. Acute ischemic heart disease needs to be ruled out but that seems less likely. Her initial troponin is stable. EKG now pending. Patient seems to have sinus bradycardia at this time. Initially required epinephrine drip now this is being weaned off. * Significant blood loss due to extensive lumbar surgery, with hypotension and shock requiring vasopressors and aggressive fluid resuscitation now improved. Appears euvolemic and patient appears to be aggressively resuscitated already * Severe peripheral vascular disease coronary artery disease history. Patient has had complete obstruction of her carotid artery on the right side no evidence suggestive of acute stroke at this time as she was moving all her limbs and following commands * Mild Obstructive lung disease with sig reversible component by history, previous smoking history, previous recurrent pneumonia with MRSA infection in the past * Morbid obesity with signs and symptoms suggestive of sleep apnea * History of DM, HTN, PVD on plavix now held, severe Chronic pain RECOMMENDATION * Keep on the ventilator tonight as she has prolonged periods of apnea * If sedation is needed please start fentanyl drip and titrate to mild sedation. * Check random cortisol level * If she becomes hypotensive we will start her on dopamine drip which would also help a heart rate * Fingerstick glucose to be checked every 4 hours as she is diabetic and was on oral hypoglycemic agents in the past * D5 lactated Ringer's at 75 mL * Venodyne boots * Watch urine output and blood pressure * Hold antihypertensives for now to the blood pressure comes up * If the blood pressure starts to rise can give amlodipine followed by losartan if needed * Orogastric tube if needed * Nebulizer therapy with DuoNeb every 8 hours * We will start weaning trials in the morning and extubate if needed * Repeat chest x-ray in am * Check EKG and troponin * Keep sugars around 150 pt is critically ill tts 90 mins with the patient discussed with anesthesia, geological technical officer and surg staff and OR nurse Consult Acknowledgment - Thank you for your consult request.
[2017-10-07 20:00] VITALS: BP 160/70
--- NOTE | 2017-10-07 20:54 | PN- Orthopedic ---
See Addendum Subjective Subjective: Patient intubated, awake and alert, complaining of pain in her lower back Objective Vital Signs and I&Os Vital Signs Date Time Temp Pulse Resp B/P B/P Pulse O2 O2 Flow FiO2 Mean Ox Delivery Rate 10/08 1999 40 10/07 1730 100 Vital signs stable, afebrile, blood pressure 160/70. Heart rate 68, normal sinus rhythm, oxygen 100% on ventilator Physical Exam: Well-developed well-nourished Awake and alert, following commands HEENT: Atraumatic, extraocular motion intact, intubated Neck: Supple, no lymphadenopathy Respiratory: No respiratory distress, on ventilator Extremities: Bilateral lower extremities are neurovascularly intact with sensation motor grossly intact CLARIBEL drains in place, holding self suction, approximately 10 mL of bloody drainage in each Neuro: Alert Skin: Warm and dry, no rash on exposed skin Results Last 48 Hours of Labs: Laboratory Tests 10/07 10/07 10/07 1805 1754 1710 Blood Gas pH (7.35 - 7.45 PH) 7.45 pCO2 (35 - 45 TORR) 25 L pO2 (80 - 100 TORR) 228 H HCO3 (21 - 28 MEQ/L) 17 L ABG O2 Sat (Measured) (>96.0 %) 98.0 P-50 (Temp Corrected) N Carboxyhemoglobin (1.5 - 5.0 %) 0.3 L O2 Concentration % 100% Temperature (97.0 - 100.0 FARH) 97.2 Respiration Rate (BPM) 16 O2 Delivery Method ESPRIT Vent Mode AC Expiratory Pressure (CMH2O/P) 5 Tidal Volume (CC) 500 Chemistry Magnesium Cancelled Hematology CBC w Diff NO MAN DIFF REQ WBC (4.8 - 10.8 /CUMM) 23.0 H RBC (4.20 - 5.40 /CUMM) 3.61 L Hgb (12.0 - 16.0 G/DL) 10.5 L Hct (37 - 47 %) 31.0 L MCV (81.0 - 99.0 FL) 85.9 MCH (27.0 - 31.0 PG) 29.1 MCHC (33.0 - 37.0 G/DL) 33.8 RDW (11.5 - 14.5 %) 13.6 Plt Count (130 - 400 /CUMM) 193 MPV (7.4 - 10.4 FL) 7.9 Gran % (42.2 - 75.2 %) 76.4 H Lymphocytes % (20.5 - 51.1 %) 14.3 L Monocytes % (1.7 - 9.3 %) 8.1 Eosinophils % (0 - 5 %) 0.6 Basophils % (0.0 - 2.0 %) 0.6 Absolute Granulocytes (1.4 - 6.5 /CUMM) 17.6 H Absolute Lymphocytes (1.2 - 3.4 /CUMM) 3.3 Absolute Monocytes (0.10 - 0.60 /CUMM) 1.9 H Absolute Eosinophils (0.0 - 0.7 /CUMM) 0.1 Absolute Basophils (0.0 - 0.2 /CUMM) 0.1 Miscellaneous Phlebotomy Draw Site [facility] 10/07 1655 Chemistry Sodium (137 - 145 mmol/L) 134 L Potassium (3.5 - 5.1 mmol/L) 4.2 Chloride (98 - 107 mmol/L) 105 Carbon Dioxide (22 - 30 mmol/L) 20 L Anion Gap (5 - 16) 8 BUN (7 - 17 mg/dL) 19 H Creatinine (0.5 - 1.0 mg/dL) 1.0 Estimated GFR (>60 ml/min) 54 L BUN/Creatinine Ratio (7 - 25 %) 19.0 Magnesium (1.6 - 2.3 mg/dL) 1.1 L Troponin I (< 0.11 ng/ml) 0.03 Cortisol PM Sample (1.7 - 14.1) 27.9 H Hematology CBC w Diff NO MAN DIFF REQ WBC (4.8 - 10.8 /CUMM) 24.8 H RBC (4.20 - 5.40 /CUMM) 3.66 L Hgb (12.0 - 16.0 G/DL) 10.5 L Hct (37 - 47 %) 31.4 L MCV (81.0 - 99.0 FL) 85.8 MCH (27.0 - 31.0 PG) 28.8 MCHC (33.0 - 37.0 G/DL) 33.6 RDW (11.5 - 14.5 %) 13.5 Plt Count (130 - 400 /CUMM) 193 MPV (7.4 - 10.4 FL) 7.9 Gran % (42.2 - 75.2 %) 78.9 H Lymphocytes % (20.5 - 51.1 %) 12.4 L Monocytes % (1.7 - 9.3 %) 8.1 Eosinophils % (0 - 5 %) 0.4 Basophils % (0.0 - 2.0 %) 0.2 Absolute Granulocytes (1.4 - 6.5 /CUMM) 19.6 H Absolute Lymphocytes (1.2 - 3.4 /CUMM) 3.1 Absolute Monocytes (0.10 - 0.60 /CUMM) 2.0 H Absolute Eosinophils (0.0 - 0.7 /CUMM) 0.1 Absolute Basophils (0.0 - 0.2 /CUMM) 0.1 Assessment/Plan Assessment/Plan Status post 4 level lumbar fusion, L2-3, L3 4, L4 5, L5-S1 secondary to spinal stenosis and previous lumbar fusion Admitted into the ICU for overnight monitoring secondary to junctional bradycardia and hypotension intraoperative and immediately postoperatively. Patient is currently stable. Arrhythmia discussed with Dr. Young who reviewed EKG, now in normal sinus rhythm, continue telemetry monitoring Appreciate ICU management and input, remains intubated on ventilator support due to inability to wean in the recovery room Leukocytosis postoperatively, likely reactive, recheck in a.m. A.m. labs Continue CLARIBEL drains 2 to self suction, recorded output every shift May weight-bear as tolerated and out of bed when extubated Pain medication as needed, fentanyl drip started Continue vancomycin every 12 hours Hold Plavix Heparin subcutaneous starting in the morning Dressing change postop day 2 Core Measures Venous Thromboembolism VTE Risk Factors Age>40 No Mechanical VTE Prophylaxis d/t N/A MechProphylax Ordered No VTE Pharm Prophylaxis d/t Surgical Contraindication (initially)
[2017-10-08] VITALS: BP 110/60
--- NOTE | 2017-10-08 03:53 | PN- Orthopedic ---
See Addendum Subjective Subjective: awake and alert, requesting tube be removed pain better controlled. moving extermities well, no deficits noted Objective Vital Signs and I&Os Vital Signs Date Time Temp Pulse Resp B/P B/P Pulse O2 O2 Flow FiO2 Mean Ox Delivery Rate 10/08 0256 40 10/08 0012 40 10/08 0000 98.0 87 16 110/60 99 Ventilator 40% 10/08 0000 99 Ventilator 40% 10/07 2258 78 167/58 10/07 2223 40 10/076 100 Ventilator 40% 10/07 2108 Ventilator 40% 10/08 1999 40 10/08 1999 95.5 64 18 160/70 100 Ventilator 40% 10/07 1730 100 Intake & Output 10/08 0810/08 0000 10/07 0810/07 0000 10/06 1600 Intake Total 149 Output Total 215 Balance -66 Intake, IV 149 Intake, Oral 0 Output, 100 Drainage Output, Urine 115 Patient 205 lb Weight Weight Bed scale Measurement Method Physical Exam: Well-developed well-nourished Awake and alert, following commands HEENT: Atraumatic, extraocular motion intact, intubated Neck: Supple, no lymphadenopathy Respiratory: No respiratory distress, on ventilator Back: dressing CDI Extremities: Bilateral lower extremities are neurovascularly intact with sensation motor grossly intact KWAME drains in place, holding self suction, approximately 10 mL/15ml of bloody drainage last recorded outputs since surgery kwame#1 80/40(last 4hrs), kwame #2 20/45 (last 4hrs) Skin: Warm and dry, no rash on exposed skin Results Last 48 Hours of Labs: Laboratory Tests 10/07 10/07 10/07 1805 1754 1710 Blood Gas pH (7.35 - 7.45 PH) 7.45 pCO2 (35 - 45 TORR) 25 L pO2 (80 - 100 TORR) 228 H HCO3 (21 - 28 MEQ/L) 17 L ABG O2 Sat (Measured) (>96.0 %) 98.0 P-50 (Temp Corrected) N Carboxyhemoglobin (1.5 - 5.0 %) 0.3 L O2 Concentration % 100% Temperature (97.0 - 100.0 FARH) 97.2 Respiration Rate (BPM) 16 O2 Delivery Method ESPRIT Vent Mode AC Expiratory Pressure (CMH2O/P) 5 Tidal Volume (CC) 500 Chemistry Magnesium Cancelled Hematology CBC w Diff NO MAN DIFF REQ WBC (4.8 - 10.8 /CUMM) 23.0 H RBC (4.20 - 5.40 /CUMM) 3.61 L Hgb (12.0 - 16.0 G/DL) 10.5 L Hct (37 - 47 %) 31.0 L MCV (81.0 - 99.0 FL) 85.9 MCH (27.0 - 31.0 PG) 29.1 MCHC (33.0 - 37.0 G/DL) 33.8 RDW (11.5 - 14.5 %) 13.6 Plt Count (130 - 400 /CUMM) 193 MPV (7.4 - 10.4 FL) 7.9 Gran % (42.2 - 75.2 %) 76.4 H Lymphocytes % (20.5 - 51.1 %) 14.3 L Monocytes % (1.7 - 9.3 %) 8.1 Eosinophils % (0 - 5 %) 0.6 Basophils % (0.0 - 2.0 %) 0.6 Absolute Granulocytes (1.4 - 6.5 /CUMM) 17.6 H Absolute Lymphocytes (1.2 - 3.4 /CUMM) 3.3 Absolute Monocytes (0.10 - 0.60 /CUMM) 1.9 H Absolute Eosinophils (0.0 - 0.7 /CUMM) 0.1 Absolute Basophils (0.0 - 0.2 /CUMM) 0.1 Miscellaneous Phlebotomy Draw Site [place] 10/07 1655 Chemistry Sodium (137 - 145 mmol/L) 134 L Potassium (3.5 - 5.1 mmol/L) 4.2 Chloride (98 - 107 mmol/L) 105 Carbon Dioxide (22 - 30 mmol/L) 20 L Anion Gap (5 - 16) 8 BUN (7 - 17 mg/dL) 19 H Creatinine (0.5 - 1.0 mg/dL) 1.0 Estimated GFR (>60 ml/min) 54 L BUN/Creatinine Ratio (7 - 25 %) 19.0 Calcium (8.4 - 10.2 mg/dL) 7.5 L Phosphorus (2.5 - 4.5 mg/dL) 4.8 H Magnesium (1.6 - 2.3 mg/dL) 1.1 L Troponin I (< 0.11 ng/ml) 0.03 TSH (0.270 - 4.200 uIU/mL) 2.140 Free T4 (0.78 - 2.44 ng/dL) 1.98 Cortisol PM Sample (1.7 - 14.1) 27.9 H Hematology CBC w Diff NO MAN DIFF REQ WBC (4.8 - 10.8 /CUMM) 24.8 H RBC (4.20 - 5.40 /CUMM) 3.66 L Hgb (12.0 - 16.0 G/DL) 10.5 L Hct (37 - 47 %) 31.4 L MCV (81.0 - 99.0 FL) 85.8 MCH (27.0 - 31.0 PG) 28.8 MCHC (33.0 - 37.0 G/DL) 33.6 RDW (11.5 - 14.5 %) 13.5 Plt Count (130 - 400 /CUMM) 193 MPV (7.4 - 10.4 FL) 7.9 Gran % (42.2 - 75.2 %) 78.9 H Lymphocytes % (20.5 - 51.1 %) 12.4 L Monocytes % (1.7 - 9.3 %) 8.1 Eosinophils % (0 - 5 %) 0.4 Basophils % (0.0 - 2.0 %) 0.2 Absolute Granulocytes (1.4 - 6.5 /CUMM) 19.6 H Absolute Lymphocytes (1.2 - 3.4 /CUMM) 3.1 Absolute Monocytes (0.10 - 0.60 /CUMM) 2.0 H Absolute Eosinophils (0.0 - 0.7 /CUMM) 0.1 Absolute Basophils (0.0 - 0.2 /CUMM) 0.1 Assessment/Plan Assessment/Plan POD1 Status post 4 level lumbar fusion, L2-3, L3 4, L4 5, L5-S1 secondary to spinal stenosis and previous lumbar fusion Continue ICU monitoring secondary to junctional bradycardia and hypotension intraoperative and immediately postoperatively. Patient is currently stable. no further Arrhythmias remains intubated on ventilator support due to inability to wean in the recovery room, likely trial of extubation today per critical care Leukocytosis postoperatively, likely reactive, recheck in a.m. A.m. labs Continue KWAME drains 2 to self suction, recorded output every shift oob to chair when extubated Pain medication as needed, fentanyl drip started Continue vancomycin every 12 hours Hold Plavix Heparin subcutaneous starting today for DVT PPX ALPS Dressing change postop day 2 Core Measures Venous Thromboembolism VTE Risk Factors Age>40 No Mechanical VTE Prophylaxis d/t N/A MechProphylax Ordered No VTE Pharm Prophylaxis d/t Surgical Contraindication (initially)
[2017-10-08 04:54] LABS: ABSOLUTE BASOPHIL COUNT 0 /CUMM (0.0-0.2); ABSOLUTE EOSINOPHIL COUNT 0 /CUMM (0.0-0.7); ABSOLUTE GRANULOCYTE CT 20.2 /CUMM (1.4-6.5); ABSOLUTE LYMPH COUNT 1.5 /CUMM (1.2-3.4); ABSOLUTE MONOCYTE COUNT 2.2 /CUMM (0.10-0.60); BASOPHIL % 0.1 % (0.0-2.0); EOSINOPHIL % 0 % (0-5); GRANULOCYTE % 84.3 % (42.2-75.2); HEMATOCRIT 33.7 % (37-47); MEAN CORPUSCULAR HGB 28.7 PG (27.0-31.0); MEAN CORPUSCULAR HGB CONC 33.2 G/DL (33.0-37.0); MEAN CORPUSCULAR VOLUME 86.3 FL (81.0-99.0); MEAN PLATELET VOLUME 8.8 FL (7.4-10.4); PLATELET COUNT 201 /CUMM (130-400); RBC DISTRIBUTION WIDTH 13.8 % (11.5-14.5); RED BLOOD CELL CT 3.91 /CUMM (4.20-5.40)
--- NOTE | 2017-10-08 07:38 | PN- CRCU ---
Dulce Webster 10/08/17 0738: Subjective HPI/Critical Care Issues: #Severe lumbar spinal stenosis status post laminectomy on 10/07/2017 #Postoperative respiratory failure requiring mechanical ventilation #Intraoperative severe hypotension/circular tissue shock requiring pressor support #Intraoperative sinus bradycardia/junctional rhythm #Leukocytosis with bandemia without source of infection #Electrolyte imbalance #History of diabetes #History of severe COPD/asthma #History of TIA #History of hypertension 24 hour events Patient was seen and examined this morning. She is alert and awake and slightly anxious and requesting to take intubation tube out. She denied any significant complaint except generalized body aches especially at back. She is off of pressor at the moment and maintaining her blood pressure on her own. Minimum drainage were noted from surgical drains. Intake/Output--- 6860/898 MAXIMUM TEMPERATURE 98.0 Heart rate ranges from 6494 Respiratory [id number] Blood pressure 110378/6390 6 mmHg Ventilator setting at mode before meals/respiratory rate set at 16tidal volume [id number] 40%peak at 5 ABGs this morning 7.51///-- Objective Current Medications: Current Medications Sig/Clementine Start time Last Medication Dose Route Stop Time Status Admin Acetaminophen 1,000 MG .STK-MED ONE 10/07 1436 DC IV 10/07 1437 Albuterol Sulfate 3 ML Q8 10/07 2200 DC INH Albuterol Sulfate 3 ML TID 10/07 2100 AC 10/08 INH 0814 Cefazolin Sodium 2,000 MG ONCE 10/07 0000 DC IV 10/07 2359 Dextrose/Lactated 1,000 ML Q13H 10/07 2030 CAN Ringer's IV Dextrose/Lactated 1,000 ML Q13H 10/07 1945 AC 10/07 Ringer's IV 2158 Fentanyl Citrate 1,000 MCG Q24H 10/07 2030 AC 10/08 Dextrose/Water 250 ML IV 0739 Hydralazine HCl 5 MG ONCE ONE 10/07 2300 DC 10/07 IV 10/07 2301 2258 Insulin Human Regular 0 Q6 10/08 1200 AC SC Insulin Human Regular 0 Q4 10/08 0200 DC 10/08 SC 0535 Insulin Human Regular 0 Q6 10/07 2359 DC SC Ipratropium Crawford 2.5 ML TID 10/07 2100 AC 10/08 INH 0814 Magnesium Sulfate 1 GM ONCE ONE 10/08 0745 AC 10/08 Dextrose/Water 100 ML IV 10/08 1144 0815 Magnesium Sulfate 1 GM Q2H 10/07 2045 DC 10/08 Dextrose/Water 100 ML IV 10/08 0044 0021 Morphine Sulfate 4 MG ONCE ONE 10/07 2100 DC 10/07 IV 10/07 Ondansetron HCl 4 MG Q6P PRN 10/07 194 AC 10/07 IV 2155 Pantoprazole Sodium 40 MG DAILY 10/08 0900 AC 10/08 IV 0815 Promethazine HCl 12.5 MG Q6P PRN 10/07 194 AC IV 10/14 1859 Remifentanil 1 MG .STK-MED ONE 10/07 1531 DC IV 10/07 1532 Remifentanil 2 MG .STK-MED ONE 10/07 1436 DC IV 10/07 1437 Remifentanil 2 MG .STK-MED ONE 10/07 1125 DC IV 10/07 1126 Vancomycin HCl 1,000 MG Q12H 10/08 0400 AC 10/08 Sodium Chloride 250 ML IV 0345 Vital Signs & I&O Last 24 Hrs of Vitals and I&O: Vital Signs Date Time Temp Pulse Resp B/P B/P Pulse O2 O2 Flow FiO2 Mean Ox Delivery Rate 10/08 0822 40 10/08 0626 40 10/08 0400 100 Ventilator 40% 10/08 0256 40 10/08 0012 40 10/08 0000 98.0 87 16 110/60 99 Ventilator 40% 10/08 0000 99 Ventilator 40% 10/07 2258 78 167/58 10/07 2223 40 10/07 2136 100 Ventilator 40% 10/07 2108 Ventilator 40% 10/08 1999 40 10/08 1999 95.5 64 18 160/70 100 Ventilator 40% 10/07 1730 100 Intake & Output 10/08 1600 10/08 0800 10/08 0000 Intake Total 911 149 Output Total 438 215 Balance 473 -66 Intake, IV 911 149 Intake, Oral 0 Output, 155 100 Drainage Output, Urine 283 115 Patient 205 lb Weight Weight Bed scale Measurement Method Exam General Appearance: well developed/nourished, alert, awake, anxious, intubated Head: atraumatic Neck: supple Respiratory: chest non-tender, no respiratory distress Cardiovascular: regular rate/rhythm Abdomen: normal bowel sounds, soft, non-tender Extremities: normal inspection, no edema Results Last 24 Hrs of Lab Results: Laboratory Tests 10/08/17 0615: pH 7.51 H, pCO2 23 L, pO2 187 H, HCO3 18 L, ABG O2 Sat (Measured) 99.0, P-50 (Temp Corrected) N, Carboxyhemoglobin 0.3 L, O2 Concentration % .40, Respiration Rate 16, O2 Delivery Method VENT, Vent Mode A/C, Expiratory Pressure 5, Tidal Volume 500, Phlebotomy Draw Site MUSE 10/08/17 0400: Anion Gap 10, Estimated GFR > 60, Glucose 277 H, Calcium 8.1 L, Phosphorus 3.1 , Magnesium 1.8, Total Bilirubin 0.5, AST 59 H, ALT 46, Troponin I 0.16 *H, Albumin 2.7 L, Cortisol AM Sample 20.5, CBC w Diff MAN DIFF ORDERED, RBC 3.91 L, MCV 86.3, MCH 28.7, MCHC 33.2, RDW 13.8, MPV 8.8, Gran % 84.3 H, Lymphocytes % 6.4 L, Monocytes % 9.2, Eosinophils % 0, Basophils % 0.1, Absolute Granulocytes 20.2 H, Segmented Neutrophils 88 H, Absolute Lymphocytes 1.5, Lymphocytes 6 L, Monocytes 6, Absolute Monocytes 2.2 H, Absolute Eosinophils 0 , Absolute Basophils 0, Platelet Estimate ADEQUATE, Polychromasia 1+, Ovalocytes FEW, Fld Total RBCs Counted 100 10/07/17 1805: pH 7.45, pCO2 25 L, pO2 228 H, HCO3 17 L, ABG O2 Sat (Measured) 98.0, P-50 ( Temp Corrected) N, Carboxyhemoglobin 0.3 L, O2 Concentration % 100%, Temperature 97.2, Respiration Rate 16, O2 Delivery Method ESPRIT, Vent Mode AC, Expiratory Pressure 5, Tidal Volume 500, Phlebotomy Draw Site MUSE 10/07/17 1754: Magnesium Cancelled 10/07/17 1710: CBC w Diff NO MAN DIFF REQ, RBC 3.61 L, MCV 85.9, MCH 29.1, MCHC 33.8, RDW 13.6 , MPV 7.9, Gran % 76.4 H, Lymphocytes % 14.3 L, Monocytes % 8.1, Eosinophils % 0.6, Basophils % 0.6, Absolute Granulocytes 17.6 H, Absolute Lymphocytes 3.3, Absolute Monocytes 1.9 H, Absolute Eosinophils 0.1, Absolute Basophils 0.1 10/07/17 1655: Anion Gap 8, Estimated GFR 54 L, BUN/Creatinine Ratio 19.0, Calcium 7.5 L, Phosphorus 4.8 H, Magnesium 1.1 L, Troponin I 0.03, TSH 2.140, Free T4 1.98, Cortisol PM Sample 27.9 H, CBC w Diff NO MAN DIFF REQ, RBC 3.66 L, MCV 85.8, MCH 28.8, MCHC 33.6, RDW 13.5, MPV 7.9, Gran % 78.9 H, Lymphocytes % 12.4 L, Monocytes % 8.1, Eosinophils % 0.4, Basophils % 0.2, Absolute Granulocytes 19.6 H, Absolute Lymphocytes 3.1, Absolute Monocytes 2.0 H, Absolute Eosinophils 0.1 , Absolute Basophils 0.1 Diagnostic Data CXR Findings: IMPRESSION: Endotracheal tube terminates approximately 5 cm above the dashawn. No acute pulmonary disease. Impression/Plan Impression/Plan Impression/Plan: This is a 71-year-old female with past medical history significant for asthma, COPD not on home oxygen, history of multiple admissions for MRSA pneumonia, hypertension, hyperlipidemia, diabetes mellitus, TIA on Plavix, insomnia, GERD, osteoarthritis, carpal tunnel syndrome, peripheral vascular disease, bilateral lung nodules, previous occluded right internal carotid artery with no significant flow, chronic back pain status post spinal fusion in 2012, was admitted to surgical service on 10/06/2017 for severe back pain, and claudication, found to have severe spinal stenosis requiring laminectomy on .She underwent prolonged surgery and had general anesthesia for prolonged period of time. Severe lumbar spinal stenosis status post laminectomy on 10/07/2017 Postoperative respiratory failure requiring mechanical ventilation Intraoperative severe hypotension/circular tissue shock requiring pressor support Intraoperative sinus bradycardia/junctional rhythm Leukocytosis with bandemia without source of infection Electrolyte imbalance History of diabetes History of severe COPD/asthma History of TIA History of hypertension Management Respiratory Patient was intubated this morning with ventilator settings of before meals/16 bladder volume [id number] 40%/PEEP at 5-----tolerated breathing trial well and was extubated successfully around 10 AM this morning. Postextubation she was breathing fine without any difficulty and maintaining her oxygen saturation more than 90%. ID Patient has significant leukocytosis with no bandemia most likely it's reactive and patient remained afebrile, will watch WBCs. Currently she is on vancomycin as per primary team and according to them neurosurgical patients needs to be on vancomycin while drains are inside the surgical site. Once drainage good taken out vancomycin would be stopped. Cardiovascular Patient had significant bradycardia and junctional rhythm which was noticed during anesthesia/neurosurgery. Patient was seen by cardiology and most likely her transient bradycardia and junctional rhythm was due to anesthesia side effects. Currently she is in sinus rhythm without any significant complaints. Cardiology on board And also had significant intraoperative hypotension acquired fluid resuscitation and pressor support for a few hours. Currently maintaining her blood pressure without any pressor support. Morning troponin also went up to 0.16 most likely demand supply mismatch and given her significant hypotension. Serial troponins and EKGs needs to be done Hematology H&H stable at 11.2/33.7 WBC count 24.0 with no bandemia most likely reactive and we will watch Metabolic Potassium 4.0, magnesium 1.8. We will replete electrolytes accordingly Currently on Novolin nothing by mouth sliding scale for blood glucose coverage And she will start eating should switch to NovoLog Alimentary Restart oral food as tolerated, recommending consistent carbohydrate 2. Neurology Neurological deficit noted ICU checklist Lines: PICC line placed yesterday Drips D5 Ringer's lactate at 75 m/h Pressors--- weaned off Ventilator--- successfully extubated at 10 AM on 10/08/2017 Prophylaxis GI--- on IV protonix DVT----Alps Sedation/analgesia weaned off from fentanyl currently on as needed morphine CODE STATUS: Full code Oleg Kahn MD 10/08/17 1003: Impression/Plan Impression/Plan Recommendations: Impression 71 year old woman * extensive back surgery * intubated for perioperative respiratory failure now resolved * bradycardia resolved, likely perioperative/anesthesia related * hypotension resolved likely perioperative blood loss * hx of asthma * hx of MRSA pna Plan Respiratory -doing well with spontaneous breathing trial -extubate -trc/nebs ID -per surgical team CVS -f/u Dr. Young's/Cardiology recommendations -bradycardia resolved, likely perioperative/anesthesia related -hypotension resolved likely perioperative blood loss Heme -monitor cbc, platelets Metabolic -ins/outs -creatinine/electrolyte monitoring Alimentary -NPO for now, will check swallowing evaluation after extubation Neuro -pain control -dc fentanyl DVT prophylaxis at all times TTS 35 min
[2017-10-08 08:00] VITALS: BP 140/70
--- NOTE | 2017-10-08 08:25 | RADIOLOGY REPORT ---
EXAMINATION: XR PORTABLE CHEST CLINICAL INFORMATION: Status post intubation COMPARISON: Multiple chest x-rays most recent prior dated 10/07/2017 TECHNIQUE: Portable frontal view of the chest was obtained. FINDINGS: Endotracheal tube terminates approximately 5 cm above the dashawn. Right-sided PICC line with the tip at the cavoatrial junction. Borderline heart size. Lungs are clear. IMPRESSION: Endotracheal tube terminates approximately 5 cm above the dashawn. No acute pulmonary disease.
--- NOTE | 2017-10-08 11:37 | Cons- Cardiology ---
General Information and HPI Consulting Request Date of Consult: 10/08/17 Requested By: Dania HARRIS,Ray Rose Reason for Consult: Bradycardia and hypotension Source of Information: patient, old records Exam Limitations: unable to give history History of Present Illness: Mrs. Eduardo is a 71-year-old female with a history of hypertension and abnormal EKG with prior coronary disease. The patient underwent a 9 hour surgical procedure yesterday. During the surgical procedure she was noted to be hypotensive and in a junctional rhythm. She was subsequently transferred to the PACU and ultimately the ICU. By the time the patient arrived in the ICU, her rhythm had stabilized into sinus bradycardia with episodes of sinus arrhythmia. She was tapered off of her epinephrine. She remained intubated overnight. This morning, she is hemodynamically stable and, if anything, mildly hypertensive. She remains in sinus rhythm with a heart rate of 80-100/min. She remains intubated. Weaning trials are ongoing. The patient is awake and alert and denies any symptoms. Allergies/Medications Allergies: Coded Allergies: Sulfa (Sulfonamide Antibiotics) (Intermediate, SKIN TURNS PURPLE/HOT 09/24/17) Penicillins (Mild, ITCHING 09/24/17) aspirin (HX GASTRITIS 10/06/17) ASA->BLEEDING atorvastatin (PER PT MED LIST 09/24/17) prednisone (Severe, VISION CHANGES 09/24/17) Uncoded Allergies: ENVIRONMENTAL (UNKNOWN 07/20/13) MULTIPLE ANTIBIOTICS (UNKNOWN 07/20/13) Home Med List: Acetaminophen (8HR Arthritis Pain Relief) 650 MG TABLET.ER 2 TAB PO QHS PAIN (Reported) Albuterol Sulfate (Proair Hfa) 90 MCG HFA.AER.AD 2 PUF INH PRN ASTHMA/ ALLERGIES (Reported) Ascorbate Calcium (Vitamin C) 500 MG TABLET 1 TAB PO DAILY SUPPLEMENT ( Reported) Azelastine/Fluticasone (Dymista Nasal [place]) 137 MCG-50 MCG/SPRAY SPRAY.PUMP 1 SPRAY NASB PRN ALLERGIES (Reported) Budesonide/Formoterol Fumarate (Symbicort 160-4.5 Mcg Inhaler) 160 MCG-4.5 MCG/ ACTUATION HFA.AER.AD 2 PUFF INH BID ASTHMA/ALLERGIES (Reported) Cetirizine HCl (Zyrtec) 10 MG CAPSULE 1 CAP PO DAILY ALLERGIES (Reported) Cholecalciferol (Vitamin D3) (Vitamin D) 1,000 UNIT TABLET 1 TAB PO DAILY SUPPLEMENT (Reported) Clopidogrel Bisulfate (Plavix) 75 MG TABLET 1 TAB PO DAILY ANTICOAGULATION ( Reported) Cyclobenzaprine HCl 5 MG TABLET 1 TAB PO QHS MUSCLE SPASMS (Reported) Diltiazem HCl (Cartia Xt) 120 MG CAP.ER.24H 1 CAP PO DAILY CARDIAC (Reported) Docusate Sodium (Colace) 100 MG CAPSULE 1 CAP PO BID STOOL SOFTENER (Reported ) Gabapentin 300 MG CAPSULE 1 CAP PO PRN PAIN (Reported) Glimepiride 2 MG TABLET 1.5 TAB PO DAILY DM (Reported) Iron Carb,Gl/FA/B12/C/Docusate (Ferralet 90 Tablet) 90 MG-1 MG-12 MCG-120 MG-50 MG TABLET 1 TAB PO DAILY SUPPLEMENT (Reported) Losartan Potassium (Cozaar) 25 MG TABLET 1 TAB PO DAILY HTN (Reported) Magnesium Oxide (Magnesium) (Unknown Strength) CAPSULE (Unknown Dose) PO TID SUPPLEMENT (Reported) Melatonin 10 MG CAPSULE 1 CAP PO QPM SLEEP (Reported) Montelukast Sodium (Singulair) 10 MG TABLET 1 TAB PO DAILY ALLERGIES ( Reported) Multiple Vitamin (Multivitamins) 1 EACH TABLET 1 TAB PO DAILY SUPPLEMENT ( Reported) Multivit-Min/FA/Lutein/Zeaxant (Macular Vitamin Tablet) 500 MCG-5 MG-1 MG TABLET 1 TAB PO DAILY SUPPLEMENT (Reported) Omeprazole 40 MG CAPSULE.DR 1 CAP PO DAILY AC GERD (Reported) Sitagliptin Phosphate (Januvia) 100 MG TABLET 1 TAB PO DAILY DM (Reported) Tobramycin (Tobrex) 0.3 % DROPS 2 GTT OPH TID EYE (Reported) Past History Medical History Blood Transfusion Hx: No Neurological: TIA EENT: NONE Cardiovascular: hypertension, hyperlipidemia, CAROTID ARTERY STENOSIS Respiratory: asthma, bronchitis, COPD, MRSA PNA Gastrointestinal: GERD Hepatic: STEATOSIS OF LIVER Renal: NONE Musculoskeletal: osteoarthritis, chronic back pain s/p spinal fusion; OA CARPAL TUNNEL Psychiatric: NONE Endocrine: NIDDM Blood Disorders: NONE Cancer(s): NONE 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 Home Who Do You Live With? spouse Primary Language: Malaysian Smoking Status: Never Smoked ETOH Use: denies use Illicit Drug Use: denies illicit drug use Living Will? 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 Rollins Other Social History: Not relevant Functional Ability ADLs Independent: dressing. Ambulation: independent IADLs Independent: shopping. Employment History Employment: Retired Profession/Employer not applicable Exam & Diagnostic Data Vital Signs and I&O Vital Signs Date Time Temp Pulse Resp B/P B/P Pulse O2 O2 Flow FiO2 Mean Ox Delivery Rate 10/08 0822 40 10/08 0800 100 Ventilator 40% 10/08 0800 97.1 92 23 140/70 100 Ventilator 40% 10/08 0626 40 10/08 0400 100 Ventilator 40% 10/08 0256 40 10/08 0012 40 10/08 0000 98.0 87 16 110/60 99 Ventilator 40% 10/08 0000 99 Ventilator 40% 10/07 2258 78 167/58 10/07 2223 40 10/07 2136 100 Ventilator 40% 10/07 2108 Ventilator 40% 10/07 2000 40 10/08 1999 95.5 64 18 160/70 100 Ventilator 40% 10/07 1730 100 Intake & Output 10/08 1600 10/08 0800 10/08 0000 10/07 1600 10/07 0800 10/07 0000 Intake Total 911 149 Output Total 438 215 Balance 473 -66 Intake, IV 911 149 Intake, Oral 0 Output, 155 100 Drainage Output, Urine 283 115 Patient 205 lb Weight Weight Bed scale Measurement Method Physical Exam: General Appearance: well developed/nourished, alert, awake, anxious, intubated Head: normal Neck: supple, JVP normal, carotid upstrokes normal bilaterally, no masses or thyromegaly Respiratory: chest non-tender, clear to auscultation and percussion bilaterally Cardiovascular: regular rate/rhythm, normal S1, S2, 1/6 to 2/6 systolic murmur Abdomen: normal bowel sounds, soft, non-tender Extremities: Trace bilateral edema Labs/Chucky Results: Laboratory Tests 10/08 10/08 10/08 1118 0615 0400 Blood Gas pH (7.35 - 7.45 PH) 7.51 H pCO2 (35 - 45 TORR) 23 L pO2 (80 - 100 TORR) 187 H HCO3 (21 - 28 MEQ/L) 18 L ABG O2 Sat (Measured) (>96.0 %) 99.0 P-50 (Temp Corrected) N Carboxyhemoglobin (1.5 - 5.0 %) 0.3 L O2 Concentration % .40 Respiration Rate (BPM) 16 O2 Delivery Method VENT Vent Mode A/C Expiratory Pressure (CMH2O/P) 5 Tidal Volume (CC) 500 Chemistry Sodium (137 - 145 mmol/L) 136 L Potassium (3.5 - 5.1 mmol/L) 4.0 Chloride (98 - 107 mmol/L) 103 Carbon Dioxide (22 - 30 mmol/L) 22 Anion Gap (5 - 16) 10 BUN (7 - 17 mg/dL) 18 H Creatinine (0.5 - 1.0 mg/dL) 0.8 Estimated GFR (>60 ml/min) > 60 Glucose (65 - 99 mg/dL) 277 H Calcium (8.4 - 10.2 mg/dL) 8.1 L Phosphorus (2.5 - 4.5 mg/dL) 3.1 Magnesium (1.6 - 2.3 mg/dL) 1.8 Total Bilirubin (0.2 - 1.3 mg/dL) 0.5 AST (14 - 36 U/L) 59 H ALT (9 - 52 U/L) 46 Troponin I (< 0.11 ng/ml) 0.06 0.16 *H Albumin (3.5 - 5.0 g/dL) 2.7 L Cortisol AM Sample (4.46 - 22.7 ug/dL) 20.5 Hematology CBC w Diff MAN DIFF ORDERED WBC (4.8 - 10.8 /CUMM) 24.0 H RBC (4.20 - 5.40 /CUMM) 3.91 L Hgb (12.0 - 16.0 G/DL) 11.2 L Hct (37 - 47 %) 33.7 L MCV (81.0 - 99.0 FL) 86.3 MCH (27.0 - 31.0 PG) 28.7 MCHC (33.0 - 37.0 G/DL) 33.2 RDW (11.5 - 14.5 %) 13.8 Plt Count (130 - 400 /CUMM) 201 MPV (7.4 - 10.4 FL) 8.8 Gran % (42.2 - 75.2 %) 84.3 H Lymphocytes % (20.5 - 51.1 %) 6.4 L Monocytes % (1.7 - 9.3 %) 9.2 Eosinophils % (0 - 5 %) 0 Basophils % (0.0 - 2.0 %) 0.1 Absolute Granulocytes (1.4 - 6.5 /CUMM) 20.2 H Segmented Neutrophils (42.2 - 75.2 %) 88 H Absolute Lymphocytes (1.2 - 3.4 /CUMM) 1.5 Lymphocytes (20.5 - 51.1 %) 6 L Monocytes (1.7 - 9.3 %) 6 Absolute Monocytes (0.10 - 0.60 /CUMM) 2.2 H Absolute Eosinophils (0.0 - 0.7 /CUMM) 0 Absolute Basophils (0.0 - 0.2 /CUMM) 0 Platelet Estimate (ADEQUATE) ADEQUATE Polychromasia 1+ Ovalocytes FEW Miscellaneous Phlebotomy Draw Site CRUZITO Other Body Source Fld Total RBCs Counted (%) 100 10/07 10/07 10/07 1805 1754 1710 Blood Gas pH (7.35 - 7.45 PH) 7.45 pCO2 (35 - 45 TORR) 25 L pO2 (80 - 100 TORR) 228 H HCO3 (21 - 28 MEQ/L) 17 L ABG O2 Sat (Measured) (>96.0 %) 98.0 P-50 (Temp Corrected) N Carboxyhemoglobin (1.5 - 5.0 %) 0.3 L O2 Concentration % 100% Temperature (97.0 - 100.0 FARH) 97.2 Respiration Rate (BPM) 16 O2 Delivery Method ESPRIT Vent Mode AC Expiratory Pressure (CMH2O/P) 5 Tidal Volume (CC) 500 Chemistry Magnesium Cancelled Hematology CBC w Diff NO MAN DIFF REQ WBC (4.8 - 10.8 /CUMM) 23.0 H RBC (4.20 - 5.40 /CUMM) 3.61 L Hgb (12.0 - 16.0 G/DL) 10.5 L Hct (37 - 47 %) 31.0 L MCV (81.0 - 99.0 FL) 85.9 MCH (27.0 - 31.0 PG) 29.1 MCHC (33.0 - 37.0 G/DL) 33.8 RDW (11.5 - 14.5 %) 13.6 Plt Count (130 - 400 /CUMM) 193 MPV (7.4 - 10.4 FL) 7.9 Gran % (42.2 - 75.2 %) 76.4 H Lymphocytes % (20.5 - 51.1 %) 14.3 L Monocytes % (1.7 - 9.3 %) 8.1 Eosinophils % (0 - 5 %) 0.6 Basophils % (0.0 - 2.0 %) 0.6 Absolute Granulocytes (1.4 - 6.5 /CUMM) 17.6 H Absolute Lymphocytes (1.2 - 3.4 /CUMM) 3.3 Absolute Monocytes (0.10 - 0.60 /CUMM) 1.9 H Absolute Eosinophils (0.0 - 0.7 /CUMM) 0.1 Absolute Basophils (0.0 - 0.2 /CUMM) 0.1 Miscellaneous Phlebotomy Draw Site [place] 10/07 1655 Chemistry Sodium (137 - 145 mmol/L) 134 L Potassium (3.5 - 5.1 mmol/L) 4.2 Chloride (98 - 107 mmol/L) 105 Carbon Dioxide (22 - 30 mmol/L) 20 L Anion Gap (5 - 16) 8 BUN (7 - 17 mg/dL) 19 H Creatinine (0.5 - 1.0 mg/dL) 1.0 Estimated GFR (>60 ml/min) 54 L BUN/Creatinine Ratio (7 - 25 %) 19.0 Calcium (8.4 - 10.2 mg/dL) 7.5 L Phosphorus (2.5 - 4.5 mg/dL) 4.8 H Magnesium (1.6 - 2.3 mg/dL) 1.1 L Troponin I (< 0.11 ng/ml) 0.03 TSH (0.270 - 4.200 uIU/mL) 2.140 Free T4 (0.78 - 2.44 ng/dL) 1.98 Cortisol PM Sample (1.7 - 14.1) 27.9 H Hematology CBC w Diff NO MAN DIFF REQ WBC (4.8 - 10.8 /CUMM) 24.8 H RBC (4.20 - 5.40 /CUMM) 3.66 L Hgb (12.0 - 16.0 G/DL) 10.5 L Hct (37 - 47 %) 31.4 L MCV (81.0 - 99.0 FL) 85.8 MCH (27.0 - 31.0 PG) 28.8 MCHC (33.0 - 37.0 G/DL) 33.6 RDW (11.5 - 14.5 %) 13.5 Plt Count (130 - 400 /CUMM) 193 MPV (7.4 - 10.4 FL) 7.9 Gran % (42.2 - 75.2 %) 78.9 H Lymphocytes % (20.5 - 51.1 %) 12.4 L Monocytes % (1.7 - 9.3 %) 8.1 Eosinophils % (0 - 5 %) 0.4 Basophils % (0.0 - 2.0 %) 0.2 Absolute Granulocytes (1.4 - 6.5 /CUMM) 19.6 H Absolute Lymphocytes (1.2 - 3.4 /CUMM) 3.1 Absolute Monocytes (0.10 - 0.60 /CUMM) 2.0 H Absolute Eosinophils (0.0 - 0.7 /CUMM) 0.1 Absolute Basophils (0.0 - 0.2 /CUMM) 0.1 Diagnostic Data EKG Results Currently sinus rhythm with nonspecific ST-T changes. Assessment/Plan Assessment/Plan Assessment: 1. Day #1 postop multilevel back fusion surgery 2. Intraoperative and postoperative bradycardia with transient junctional rhythm 3. Intraoperative and transient postoperative hypotension, initially requiring pressors, now stable 4. History of hypertension 5. History of hyperlipidemia 6. History of carotid arteries plaque bilaterally. Recommendations: -Ongoing weaning trials as per the critical care team -Serial troponins checked -No reason to repeat echocardiogram at the present time -Monitor heart rate and blood pressure for now. -Once hemodynamically stable, restart Cardizem at 30 milligrams p.o. every 6 hours -Further plans at the above Consult Acknowledgment - Thank you for your consult request.
--- NOTE | 2017-10-08 15:06 | PN- Neurosurgical ---
Surgical Brief Attending Note Brief Attending Note: POD#1 AVSS no motor or sensory deficit drains functioning feels tired out and is hoarse but doing quite well given extent of surgery mobilize with brace as per Dr Najera
[2017-10-08 16:00] VITALS: BP 158/60
--- NOTE | 2017-10-08 18:12 | ULTRASOUND REPORT ---
EXAMINATION: US TRIPLEX LOWER EXTREMITY, RIGHT UPPER EXTREMITY CLINICAL INFORMATION: Swollen status post PICC line placement. COMPARISON: Chest x-ray 10/08/2017 TECHNIQUE: Color-flow triplex imaging with spectral analysis and compression Doppler were performed on the right upper extremity FINDINGS: There is a right PICC line in place. There is occlusive thrombus within the right brachial veins and basilic vein. Study limited secondary to bandages. The right internal jugular vein, imaged innominate vein, subclavian vein, and axillary vein remain patent. The cephalic vein remains patent. IMPRESSION: Positive study. Right PICC line in place with occlusive thrombus within the mid to distal right brachial veins and the basilic vein Findings were discussed with Dr. Alva GODDARD at 6:06 PM on 10/08/2017.
--- NOTE | 2017-10-08 18:26 | Event Note ---
Event Note Event Note: The patient was noted to have right upper extremity edema more than left. She has PICC line in her right upper extremity, right upper extremity ultrasound was ordered to rule out DVT. Around 6:15 PM [facility] was called with positive DVT results. Attending Dr. Kahn was informed and he want to update surgical PA that they should call neurosurgery, orthopedic Ray Najera MD, vascular surgery Dr. zayas . Surgical PA was called and informed. Surgical PA will consult vascular surgery and neurosurgery for further advice if need of any IVC filter placement. Of note patient has recent spinal laminectomy and not a candidate for IV heparin drip given bleeding risk.
--- NOTE | 2017-10-08 20:49 | Event Note ---
Event Note Event Note: Surgical PA Elicia contacted Ray Najera MD for critical finding-right upper extremity deep vein thrombosis- occlusive thrombus within the mid to distal right brachial veins and the basilic vein. * Ray Najera MD recommended to get vascular surgery commendations. * Surgical PA Spoke with Vascular surgeon registration clerk who recommended to start the xaralto 15 mg twice daily. No recommendations for IV heparin drip. Recommended to follow-up as an outpatient to get ultrasound right upper extremity within 1 week. * Surgical PA Discussed with Ray Najera MD about starting Xarelto who agreed with the plan. * Finally patient was started on Xarelto for right upper extremity DVT as per neurosurgeon, orthopedic surgeon, vascular surgeon * I discussed with patient at bedside who agreed with the plan. * We will closely monitor her drain output, hemoglobin for any acute bleed given her back surgery
--- NOTE | 2017-10-08 21:08 | Cons- Vascular Surgery ---
Elicia Ferraro 10/08/17 2106: General Information and HPI Consulting Request Date of Consult: 10/08/17 Requested By: Dania HARRIS,Ray Rose Reason for Consult: dvt right arm Source of Information: patient (chart) Exam Limitations: no limitations History of Present Illness: This is a 71-year-old female who is postop day 1 lumbar instrumented fusion. She had a prolonged operative course and was intubated and admitted to the ICU for postoperative care. While in the ICU. she developed a right upper extremity DVT, ultrasound showed both basilic and cephalic veins occluded distally. Patient complained of right arm pain with swelling. She denied any shortness of breath or chest pain. Bilateral lower extremities are slightly edematous however nontender. Allergies/Medications Allergies: Coded Allergies: Sulfa (Sulfonamide Antibiotics) (Intermediate, SKIN TURNS PURPLE/HOT 09/24/17) Penicillins (Mild, ITCHING 09/24/17) aspirin (HX GASTRITIS 10/06/17) ASA->BLEEDING atorvastatin (PER PT MED LIST 09/24/17) prednisone (Severe, VISION CHANGES 09/24/17) Uncoded Allergies: ENVIRONMENTAL (UNKNOWN 07/20/13) MULTIPLE ANTIBIOTICS (UNKNOWN 07/20/13) Home Med List: Acetaminophen (8HR Arthritis Pain Relief) 650 MG TABLET.ER 2 TAB PO QHS PAIN (Reported) Albuterol Sulfate (Proair Hfa) 90 MCG HFA.AER.AD 2 PUF INH PRN ASTHMA/ ALLERGIES (Reported) Ascorbate Calcium (Vitamin C) 500 MG TABLET 1 TAB PO DAILY SUPPLEMENT ( Reported) Azelastine/Fluticasone (Dymista Nasal [place]) 137 MCG-50 MCG/SPRAY SPRAY.PUMP 1 SPRAY NASB PRN ALLERGIES (Reported) Budesonide/Formoterol Fumarate (Symbicort 160-4.5 Mcg Inhaler) 160 MCG-4.5 MCG/ ACTUATION HFA.AER.AD 2 PUFF INH BID ASTHMA/ALLERGIES (Reported) Cetirizine HCl (Zyrtec) 10 MG CAPSULE 1 CAP PO DAILY ALLERGIES (Reported) Cholecalciferol (Vitamin D3) (Vitamin D) 1,000 UNIT TABLET 1 TAB PO DAILY SUPPLEMENT (Reported) Clopidogrel Bisulfate (Plavix) 75 MG TABLET 1 TAB PO DAILY ANTICOAGULATION ( Reported) Cyclobenzaprine HCl 5 MG TABLET 1 TAB PO QHS MUSCLE SPASMS (Reported) Diltiazem HCl (Cartia Xt) 120 MG CAP.ER.24H 1 CAP PO DAILY CARDIAC (Reported) Docusate Sodium (Colace) 100 MG CAPSULE 1 CAP PO BID STOOL SOFTENER (Reported ) Gabapentin 300 MG CAPSULE 1 CAP PO PRN PAIN (Reported) Glimepiride 2 MG TABLET 1.5 TAB PO DAILY DM (Reported) Iron Carb,Gl/FA/B12/C/Docusate (Ferralet 90 Tablet) 90 MG-1 MG-12 MCG-120 MG-50 MG TABLET 1 TAB PO DAILY SUPPLEMENT (Reported) Losartan Potassium (Cozaar) 25 MG TABLET 1 TAB PO DAILY HTN (Reported) Magnesium Oxide (Magnesium) (Unknown Strength) CAPSULE (Unknown Dose) PO TID SUPPLEMENT (Reported) Melatonin 10 MG CAPSULE 1 CAP PO QPM SLEEP (Reported) Montelukast Sodium (Singulair) 10 MG TABLET 1 TAB PO DAILY ALLERGIES ( Reported) Multiple Vitamin (Multivitamins) 1 EACH TABLET 1 TAB PO DAILY SUPPLEMENT ( Reported) Multivit-Min/FA/Lutein/Zeaxant (Macular Vitamin Tablet) 500 MCG-5 MG-1 MG TABLET 1 TAB PO DAILY SUPPLEMENT (Reported) Omeprazole 40 MG CAPSULE.DR 1 CAP PO DAILY AC GERD (Reported) Sitagliptin Phosphate (Januvia) 100 MG TABLET 1 TAB PO DAILY DM (Reported) Tobramycin (Tobrex) 0.3 % DROPS 2 GTT OPH TID EYE (Reported) Current Medications: Current Medications Sig/Clementine Start time Last Medication Dose Route Stop Time Status Admin Albuterol Sulfate 3 ML TID 10/07 2099 AC 10/08 INH 2018 Budesonide/ 2 PUF BID 10/08 2100 AC Formoterol Fumarate INH Dextrose/Lactated 1,000 ML Q13H 10/07 1945 AC 10/07 Ringer's IV 2158 Diltiazem HCl 30 MG Q6 10/08 194 AC PO Fentanyl Citrate 1,000 MCG Q24H 10/07 2030 DC 10/08 Dextrose/Water 250 ML IV 0739 Guaifenesin 600 MG Q12 10/08 2100 AC PO Hydralazine HCl 5 MG ONCE ONE 10/07 2300 DC 10/07 IV 10/07 2301 2258 Insulin Aspart 0 TIDAC 10/08 1700 AC 10/08 SC 1720 Insulin Human Regular 0 Q6 10/08 1200 DC SC Insulin Human Regular 0 Q4 10/08 0200 DC 10/08 SC 0535 Insulin Human Regular 0 Q6 10/07 2359 DC SC Ipratropium Sentinel 2.5 ML TID 10/07 2100 AC 10/08 INH 2018 Magnesium Sulfate 1 GM ONCE ONE 10/08 0745 DC 10/08 Dextrose/Water 100 ML IV 10/08 1144 0815 Magnesium Sulfate 1 GM Q2H 10/07 2045 DC 10/08 Dextrose/Water 100 ML IV 10/08 0044 0021 Montelukast Sodium 10 MG AT BEDTIME 10/08 2100 AC PO Morphine Sulfate 2 MG Q3P PRN 10/08 1345 AC 10/08 IV 1727 Morphine Sulfate 2 MG Q3P PRN 10/08 1030 DC 10/08 IV 1036 Ondansetron HCl 4 MG .STK-MED ONE 10/08 0948 DC IM 10/08 0949 Ondansetron HCl 4 MG Q6P PRN 10/07 1945 AC 10/08 IV 0950 Oxycodone/ 1 TAB Q3P PRN 10/08 1030 AC Acetaminophen PO Oxycodone/ 2 TAB Q3P PRN 10/08 1030 AC Acetaminophen PO Pantoprazole Sodium 40 MG DAILY 10/08 0900 AC 10/08 IV 0815 Promethazine HCl 12.5 MG Q6P PRN 10/07 1945 AC IV 10/14 1859 Rivaroxaban 15 MG BID 10/08 2100 AC PO Vancomycin HCl 1,000 MG Q12H 10/08 0400 AC 10/08 Sodium Chloride 250 ML IV 1640 Past History Medical History Blood Transfusion Hx: No Neurological: TIA EENT: NONE Cardiovascular: hypertension, hyperlipidemia, CAROTID ARTERY STENOSIS Respiratory: asthma, bronchitis, COPD, MRSA PNA Gastrointestinal: GERD Hepatic: STEATOSIS OF LIVER Renal: NONE Musculoskeletal: osteoarthritis, chronic back pain s/p spinal fusion; OA CARPAL TUNNEL Psychiatric: NONE Endocrine: NIDDM Blood Disorders: NONE Cancer(s): NONE 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 Home Who Do You Live With? spouse Primary Language: Bolivian Smoking Status: Never Smoked ETOH Use: denies use Illicit Drug Use: denies illicit drug use Living Will? unknown Power of Professor Of Floriculture/HCP? unknown Name of POA/HCP: Dr. Rollins Other Social History: Not relevant Functional Ability ADLs Independent: dressing. Ambulation: independent IADLs Independent: shopping. Employment History Employment: Retired Profession/Employer: not applicable Retired? yes Review of Systems Review of Systems: Constitutional: No chills no fever pos weakness HEENT: No blurred vision visual changes. pos sore throat pain CV: denies chest pain edema orthopnea syncopal episode no peripheral edema Respiratory: No cough hemoptysis shortness of breath or wheeze GI: No abdominal pain bloating constipation or diarrhea or bloody stools no vomiting Musculoskeletal: No neck pain pos back pain Skin: No recent acute changes in skin Neurological: No dizziness weakness or acute mental status changes Review of Systems Constitutional: Reports: malaise. Exam & Diagnostic Data Vital Signs and I&O Vital Signs Date Time Temp Pulse Resp B/P B/P Pulse O2 O2 Flow FiO2 Mean Ox Delivery Rate 10/08 2020 95 Nasal 2.0L Cannula 10/08 1600 97 Nasal 1.0L Cannula 10/09 1599 98.4 102 20 158/60 97 Nasal 1.0L Cannula 10/08 1338 98 Nasal 1.0L Cannula 10/08 1200 Nasal 2.0L Cannula 10/08 0822 40 10/08 0800 100 Ventilator 40% 10/08 0800 97.1 92 23 140/70 100 Ventilator 40% 10/08 0626 40 10/08 0400 100 Ventilator 40% 10/08 0256 40 10/08 0012 40 10/08 0000 98.0 87 16 110/60 99 Ventilator 40% 10/08 0000 99 Ventilator 40% 10/07 2258 78 167/58 10/07 2223 40 10/07 2136 100 Ventilator 40% Intake & Output 10/08 1600 10/08 0800 10/08 0000 10/07 1600 10/07 0800 10/07 0000 Intake Total 970 911 149 Output Total 300 438 215 Balance 670 473 -66 Intake, IV 750 911 149 Intake, Oral 220 0 Number 0 Bowel Movements Output, 150 155 100 Drainage Output, Urine 150 283 115 Patient 205 lb Weight Weight Bed scale Measurement Method Physical Exam: Patient is alert and oriented sitting upright eating soup Answers all questions appropriately moves all extremities without deficits Chest is clear to auscultation symmetric without rales rhonchi or wheeze Is regular rate rhythm without murmurs rubs gallops Abdomen is rounded without distention nontender to palpation Lumbar spine dressings intact drains functioning Bilateral lower extremities are soft without tenderness Right upper extremity moderate edema distal to the PICC line there is good radial pulse palpated and sensory motor is intact Admission Lab Results I reviewed the following labs: ultrasound imprssion -There is a right PICC line in place. There is occlusive thrombus within the right brachial veins and basilic vein. Study limited secondary to bandages. The right internal jugular vein, imaged innominate vein, subclavian vein, and axillary vein remain patent. The cephalic vein remains patent. Laboratory Tests 10/08 10/08 10/08 1118 0615 0400 Blood Gas pH (7.35 - 7.45 PH) 7.51 H pCO2 (35 - 45 TORR) 23 L pO2 (80 - 100 TORR) 187 H HCO3 (21 - 28 MEQ/L) 18 L ABG O2 Sat (Measured) (>96.0 %) 99.0 P-50 (Temp Corrected) N Carboxyhemoglobin (1.5 - 5.0 %) 0.3 L O2 Concentration % .40 Respiration Rate (BPM) 16 O2 Delivery Method VENT Vent Mode A/C Expiratory Pressure (CMH2O/P) 5 Tidal Volume (CC) 500 Chemistry Sodium (137 - 145 mmol/L) 136 L Potassium (3.5 - 5.1 mmol/L) 4.0 Chloride (98 - 107 mmol/L) 103 Carbon Dioxide (22 - 30 mmol/L) 22 Anion Gap (5 - 16) 10 BUN (7 - 17 mg/dL) 18 H Creatinine (0.5 - 1.0 mg/dL) 0.8 Estimated GFR (>60 ml/min) > 60 Glucose (65 - 99 mg/dL) 277 H Calcium (8.4 - 10.2 mg/dL) 8.1 L Phosphorus (2.5 - 4.5 mg/dL) 3.1 Magnesium (1.6 - 2.3 mg/dL) 1.8 Total Bilirubin (0.2 - 1.3 mg/dL) 0.5 AST (14 - 36 U/L) 59 H ALT (9 - 52 U/L) 46 Troponin I (< 0.11 ng/ml) 0.06 0.16 *H Albumin (3.5 - 5.0 g/dL) 2.7 L Cortisol AM Sample (4.46 - 22.7 ug/dL) 20.5 Hematology CBC w Diff MAN DIFF ORDERED WBC (4.8 - 10.8 /CUMM) 24.0 H RBC (4.20 - 5.40 /CUMM) 3.91 L Hgb (12.0 - 16.0 G/DL) 11.2 L Hct (37 - 47 %) 33.7 L MCV (81.0 - 99.0 FL) 86.3 MCH (27.0 - 31.0 PG) 28.7 MCHC (33.0 - 37.0 G/DL) 33.2 RDW (11.5 - 14.5 %) 13.8 Plt Count (130 - 400 /CUMM) 201 MPV (7.4 - 10.4 FL) 8.8 Gran % (42.2 - 75.2 %) 84.3 H Lymphocytes % (20.5 - 51.1 %) 6.4 L Monocytes % (1.7 - 9.3 %) 9.2 Eosinophils % (0 - 5 %) 0 Basophils % (0.0 - 2.0 %) 0.1 Absolute Granulocytes (1.4 - 6.5 /CUMM) 20.2 H Segmented Neutrophils (42.2 - 75.2 %) 88 H Absolute Lymphocytes (1.2 - 3.4 /CUMM) 1.5 Lymphocytes (20.5 - 51.1 %) 6 L Monocytes (1.7 - 9.3 %) 6 Absolute Monocytes (0.10 - 0.60 /CUMM) 2.2 H Absolute Eosinophils (0.0 - 0.7 /CUMM) 0 Absolute Basophils (0.0 - 0.2 /CUMM) 0 Platelet Estimate (ADEQUATE) ADEQUATE Polychromasia 1+ Ovalocytes FEW Miscellaneous Phlebotomy Draw Site CRUZITO Other Body Source Fld Total RBCs Counted (%) 100 Assessment/Plan Assessment/Plan A/P 71-year-old female postop day 1 after lumbar instrumented fusion currently in the ICU She is progressing well but has developed a right upper extremity DVT (occlusive thrombus within the right brachial veins and basilic vein). Recommendation I have spoken with Dr. Vernon who is the attending surgeon has cleared the patient for anticoagulation from a surgical standpoint. I have consulted with Dr. Velazquez who is the on-call vascular surgeon and discussed the patient and her postoperative course. He is recommending xeralto 15 mg twice a day and repeat ultrasound in 1 week as an outpatient. He has asked the patient to follow-up in his office after the ultrasound Consult Acknowledgment - Thank you for your consult request. Tye Velazquez MD 10/10/17 0025: Assessment/Plan Consult Acknowledgment - Thank you for your consult request. Attending MD Review Statement Attending Statement Attending MD Statement: discuss w/resident/PA/CHILD CARE COORDINATOR, agreed w/resident/PA/CHILD CARE COORDINATOR Attending Assessment/Plan: She has iatrogenic venous thrombosis of the right arm with edema. This is at risk of propagation and central embolization. She will benefit from systemic anticoagulation to decrease risk of clot propagation. Recommend Xarelto 15mg BID as long as orthopedic surgeon feels bleeding risk is low. Surveillance duplex in 1 week to evaluate for clot stabilization. Mobilize right arm to promote venous recanalization.
[2017-10-09] VITALS: BP 144/60
[2017-10-09 05:18] LABS: ABSOLUTE BASOPHIL COUNT 0 /CUMM (0.0-0.2); ABSOLUTE EOSINOPHIL COUNT 0.2 /CUMM (0.0-0.7); ABSOLUTE GRANULOCYTE CT 15.6 /CUMM (1.4-6.5); ABSOLUTE LYMPH COUNT 2.2 /CUMM (1.2-3.4); ABSOLUTE MONOCYTE COUNT 1.9 /CUMM (0.10-0.60); BASOPHIL % 0.2 % (0.0-2.0); EOSINOPHIL % 0.8 % (0-5); GRANULOCYTE % 78.4 % (42.2-75.2); MEAN CORPUSCULAR HGB 28.9 PG (27.0-31.0); MEAN CORPUSCULAR HGB CONC 33.5 G/DL (33.0-37.0); MEAN CORPUSCULAR VOLUME 86.2 FL (81.0-99.0); MEAN PLATELET VOLUME 8.3 FL (7.4-10.4); PLATELET COUNT 177 /CUMM (130-400); RED BLOOD CELL CT 3.29 /CUMM (4.20-5.40); WHITE BLOOD CELL COUNT 19.9 /CUMM (4.8-10.8)
[2017-10-09 05:29] LABS: HEMATOCRIT 28.3 % (37-47)
--- NOTE | 2017-10-09 05:40 | PN- Orthopedic ---
See Addendum Subjective Subjective: 71-year-old female postop day #2 after lumbar fusion with instrumentation. Patient is sitting up in bed complaints of moderate back pain but this is tolerable. Drains putting out approximately 120 mL of serosanguineous fluid. Right arm is wrapped with an Bernabe bandage. She is tolerating by mouth's and is passing gas. She denies any shortness of breath or chest pain. Review of Systems: No fevers chills or weakness no paresthesias of the lower extremities no motor weakness Objective Vital Signs and I&Os Vital Signs Date Time Temp Pulse Resp B/P B/P Pulse O2 O2 Flow FiO2 Mean Ox Delivery Rate 10/09 0000 98 Nasal 1.0L Cannula 10/09 0000 99.6 103 22 144/60 98 Nasal 1.0L Cannula 10/08 2200 100 Nasal 1.0L Cannula 10/08 2132 104 22 138/44 10/08 2020 95 Nasal 2.0L Cannula 10/08 1600 97 Nasal 1.0L Cannula 10/08 1600 98.4 102 20 158/60 97 Nasal 1.0L Cannula 10/08 1338 98 Nasal 1.0L Cannula 10/08 1200 Nasal 2.0L Cannula 10/08 0822 40 10/08 0800 100 Ventilator 40% 10/08 0800 97.1 92 23 140/70 100 Ventilator 40% 10/08 0626 40 Intake & Output 10/09 0800 10/09 0000 10/08 1600 10/08 0800 10/08 0000 10/07 1600 Intake Total 1036 970 911 149 Output Total 315 300 438 215 Balance 721 670 473 -66 Intake, IV 936 750 911 149 Intake, Oral 100 220 0 Number 0 Bowel Movements Output, 105 150 155 100 Drainage Output, Urine 210 150 283 115 Patient 205 lb Weight Weight Bed scale Measurement Method Physical Exam: Alert and oriented 3 comfortable Chest is clear to auscultation symmetric without rales rhonchi Heart regular rate and rhythm without murmurs rubs gallops Abdomen is rounded nontender no guarding no rebound Lumbar spine dressings changed wound is clean dry and intact no drainage noted, CLARIBEL drains put out approximately 120 overnight Lower extremities without edema sensorimotor intact Right upper extremity moderate edema distal to PICC line Bernabe wrap applied Assessment/Plan Assessment/Plan 71-year-old female postop day 2 instrumented lumbar fusion. She developed a right arm DVT consultation with Dr. Velazquez from vascular surgery was obtained and recommendations of oral coagulation has been started, xeralto. She had a low urine output overnight and was bolused 500 mL of normal saline she responded well to this. Plan today will be out of bed with brace continue to monitor her JPs we will leave in the [place]. Core Measures Venous Thromboembolism VTE Risk Factors Age>40 No Mechanical VTE Prophylaxis d/t N/A MechProphylax Ordered No VTE Pharm Prophylaxis d/t Surgical Contraindication (initially)
--- NOTE | 2017-10-09 07:46 | PN- Cardiology ---
Subjective Subjective: The patient remains stable from a cardiac standpoint. Her heart rate and blood pressure are stable. She was restarted on Cardizem yesterday. Increased shortness of breath overnight. Right upper extremity DVT associated with PICC line noted. Currently on oral anticoagulation. CTA chest pending Objective Vital Signs and I&Os Vital Signs Date Time Temp Pulse Resp B/P B/P Pulse O2 O2 Flow FiO2 Mean Ox Delivery Rate 10/09 0548 100 Nasal 2.0L Cannula 10/09 05 98.7 90 24 109/37 10/09 0400 100 Nasal 1.0L Cannula 10/09 0000 98 Nasal 1.0L Cannula 10/09 0000 99.6 103 22 144/60 98 Nasal 1.0L Cannula 10/08 2200 100 Nasal 1.0L Cannula 10/08 2132 104 22 138/44 10/08 2020 95 Nasal 2.0L Cannula 10/08 1600 97 Nasal 1.0L Cannula 10/08 1600 98.4 102 20 158/60 97 Nasal 1.0L Cannula 10/08 1338 98 Nasal 1.0L Cannula 10/08 1200 Nasal 2.0L Cannula 10/08 0822 40 10/08 0800 100 Ventilator 40% 10/08 08 97.1 92 23 140/70 100 Ventilator 40% Intake & Output 10/09 0800 10/09 0000 10/08 1600 10/08 0800 10/08 0000 10/07 1600 Intake Total 1387 1036 970 911 149 Output Total 470 315 300 438 215 Balance 917 721 670 473 -66 Intake, IV 1167 936 750 911 149 Intake, Oral 220 100 220 0 Number 0 Bowel Movements Output, 130 105 150 155 100 Drainage Output, Urine 340 210 150 283 115 Patient 205 lb 205 lb Weight Weight Bed scale Measurement Method Physical Exam: General Appearance: well developed/nourished, alert, awake, oriented, mild distress related to dyspnea Head: normal HEENT: Normal Neck: supple, JVP normal, carotid upstrokes normal bilaterally, no masses or thyromegaly Respiratory: chest non-tender, clear to auscultation and percussion bilaterally Cardiovascular: regular rate/rhythm, normal S1, S2, 1-2/6 systolic murmur Abdomen: normal bowel sounds, soft, non-tender Extremities: normal inspection, right upper extremity bandaged, bilateral upper extremity edema noted Vascular: Pulses are 2+ and equal bilaterally Neurologic: Grossly normal/nonfocal Current Medications: Current Medications Sig/Clementine Start time Last Medication Dose Route Stop Time Status Admin Albuterol Sulfate 3 ML TID 10/07 2100 AC 10/09 INH 0545 Budesonide/ 2 PUF BID 10/08 2100 AC 10/09 Formoterol Fumarate INH 0517 Dextrose/Lactated 1,000 ML Q13H 10/07 194 AC 10/07 Ringer's IV 2158 Diltiazem HCl 30 MG Q6 10/08 194 AC 10/09 PO 0526 Fentanyl Citrate 1,000 MCG Q24H 10/07 2030 DC 10/08 Dextrose/Water 250 ML IV 0739 Guaifenesin 600 MG Q12 10/08 2100 AC 10/08 PO 2135 Insulin Aspart 0 TIDAC 10/08 1700 AC 10/08 SC 1720 Insulin Human Regular 0 Q6 10/08 1200 DC SC Insulin Human Regular 0 Q4 10/08 0200 DC 10/08 SC 0535 Ipratropium [place] 2.5 ML TID 10/07 2100 AC 10/09 INH 0545 Magnesium Sulfate 1 GM ONCE ONE 10/08 0745 WV 10/08 Dextrose/Water 100 ML IV 10/08 1144 0815 Montelukast Sodium 10 MG AT BEDTIME 10/08 2100 AC 10/08 PO 2132 Morphine Sulfate 2 MG Q3P PRN 10/08 1345 AC 10/09 IV 0524 Morphine Sulfate 2 MG Q3P PRN 10/08 1030 DC 10/08 IV 1036 Ondansetron HCl 4 MG .STK-MED ONE 10/08 0948 DC IM 10/08 0949 Ondansetron HCl 4 MG Q6P PRN 10/07 1945 10/08 IV 0950 Oxycodone/ 1 TAB Q3P PRN 10/08 1030 AC Acetaminophen PO Oxycodone/ 2 TAB Q3P PRN 10/08 1030 AC Acetaminophen PO Pantoprazole Sodium 40 MG DAILY 10/08 0900 AC 10/08 IV 0815 Promethazine HCl 12.5 MG Q6P PRN 10/07 1945 AC IV 10/14 1859 Rivaroxaban 15 MG BID 10/08 2100 AC 10/08 PO 2134 Sodium Chloride 500 ML BOLUS ONE 10/09 0045 DC 10/09 IV 10/09 0144 0052 Vancomycin HCl 1,000 MG Q12H 10/09 399 AC 10/09 Sodium Chloride 250 ML IV 0350 Results Last 48 Hrs of Labs/Mics: Laboratory Tests 10/09/17399: Anion Gap 5, Estimated GFR > 60, Glucose 178 H, Calcium 7.7 L, Phosphorus 2.8, Magnesium 1.5 L, Total Bilirubin 0.3, AST 45 H, ALT 47, Albumin 2.4 L, CBC w Diff NO MAN DIFF REQ, RBC 3.29 L, MCV 86.2, MCH 28.9, MCHC 33.5, RDW 14.0, MPV 8.3, Gran % 78.4 H, Lymphocytes % 11.0 L, Monocytes % 9.6 H, Eosinophils % 0.8, Basophils % 0.2, Absolute Granulocytes 15.6 H, Absolute Lymphocytes 2.2, Absolute Monocytes 1.9 H, Absolute Eosinophils 0.2, Absolute Basophils 0 10/08/17 1118: Troponin I 0.06 10/08/17 0615: pH 7.51 H, pCO2 23 L, pO2 187 H, HCO3 18 L, ABG O2 Sat (Measured) 99.0, P-50 (Temp Corrected) N, Carboxyhemoglobin 0.3 L, O2 Concentration % .40, Respiration Rate 16, O2 Delivery Method VENT, Vent Mode A/C, Expiratory Pressure 5, Tidal Volume 500, Phlebotomy Draw Site CASCADE 10/08/17399: Anion Gap 10, Estimated GFR > 60, Glucose 277 H, Calcium 8.1 L, Phosphorus 3.1 , Magnesium 1.8, Total Bilirubin 0.5, AST 59 H, ALT 46, Troponin I 0.16 *H, Albumin 2.7 L, Cortisol AM Sample 20.5, CBC w Diff MAN DIFF ORDERED, RBC 3.91 L, MCV 86.3, MCH 28.7, MCHC 33.2, RDW 13.8, MPV 8.8, Gran % 84.3 H, Lymphocytes % 6.4 L, Monocytes % 9.2, Eosinophils % 0, Basophils % 0.1, Absolute Granulocytes 20.2 H, Segmented Neutrophils 88 H, Absolute Lymphocytes 1.5, Lymphocytes 6 L, Monocytes 6, Absolute Monocytes 2.2 H, Absolute Eosinophils 0 , Absolute Basophils 0, Platelet Estimate ADEQUATE, Polychromasia 1+, Ovalocytes FEW, Fld Total RBCs Counted 100 10/07/172033: Urine Color Cancelled, Urine Clarity Cancelled, Urine pH Cancelled, Ur Specific [place] Cancelled, Urine Protein Cancelled, Urine Ketones Cancelled, Urine Nitrite Cancelled, Urine Bilirubin Cancelled, Urine Urobilinogen Cancelled, Ur Leukocyte Esterase Cancelled, Ur Microscopic Cancelled, Urine Hemoglobin Cancelled, Urine Glucose Cancelled 10/07/17 1805: pH 7.45, pCO2 25 L, pO2 228 H, HCO3 17 L, ABG O2 Sat (Measured) 98.0, P-50 ( Temp Corrected) N, Carboxyhemoglobin 0.3 L, O2 Concentration % 100%, Temperature 97.2, Respiration Rate 16, O2 Delivery Method ESPRIT, Vent Mode AC, Expiratory Pressure 5, Tidal Volume 500, Phlebotomy Draw Site CASCADE 10/07/17 1754: Magnesium Cancelled 10/07/17 1710: CBC w Diff NO MAN DIFF REQ, RBC 3.61 L, MCV 85.9, MCH 29.1, MCHC 33.8, RDW 13.6 , MPV 7.9, Gran % 76.4 H, Lymphocytes % 14.3 L, Monocytes % 8.1, Eosinophils % 0.6, Basophils % 0.6, Absolute Granulocytes 17.6 H, Absolute Lymphocytes 3.3, Absolute Monocytes 1.9 H, Absolute Eosinophils 0.1, Absolute Basophils 0.1 10/07/17 1655: Anion Gap 8, Estimated GFR 54 L, BUN/Creatinine Ratio 19.0, Calcium 7.5 L, Phosphorus 4.8 H, Magnesium 1.1 L, Troponin I 0.03, TSH 2.140, Free T4 1.98, Cortisol PM Sample 27.9 H, CBC w Diff NO MAN DIFF REQ, RBC 3.66 L, MCV 85.8, MCH 28.8, MCHC 33.6, RDW 13.5, MPV 7.9, Gran % 78.9 H, Lymphocytes % 12.4 L, Monocytes % 8.1, Eosinophils % 0.4, Basophils % 0.2, Absolute Granulocytes 19.6 H, Absolute Lymphocytes 3.1, Absolute Monocytes 2.0 H, Absolute Eosinophils 0.1 , Absolute Basophils 0.1 Assessment/Plan Assessment/Plan Assessment: 1. Day #2 postop multilevel back fusion surgery 2. Intraoperative and postoperative bradycardia with transient junctional rhythm-resolved 3. Intraoperative and transient postoperative hypotension, initially requiring pressors, now stable and resolved 4. History of hypertension 5. History of hyperlipidemia 6. History of carotid arteries plaque bilaterally. Recommendations: -Stable postextubation -Serial troponins negative -No reason to repeat echocardiogram at the present time -Monitor heart rate and blood pressure for now. -Oral Cardizem restarted as discussed. Continue to monitor for now. Further increases in Cardizem dose depending on clinical course -As noted, the patient was started on Xarelto for right upper extremity DVT -Evaluation for increased shortness of breath in process -In view of the fact that the patient is significantly positive on her fluid balance and is edematous, consider increasing IV Lasix to optimize negative fluid balance. (In addition to the fluid status recorded, the patient reportedly received 5 L of IV fluid in the operating room). Continue telemetry? Yes
[2017-10-09 08:00] VITALS: BP 160/60
--- NOTE | 2017-10-09 08:53 | PN- Neurosurgical ---
Surgical Brief Attending Note Brief Attending Note: Postoperative day #2 Able to move both lower extremities and upper extremities well Incision dry Definite shortness of breath and tachypnea Being sent down for CTA of chest Anticoagulation per medicine cardiology
--- NOTE | 2017-10-09 08:54 | PN- Resident CRCU ---
Dulce Webster 10/09/17 0854: Subjective HPI/CRCU Issues: #Severe lumbar spinal stenosis status post laminectomy on 10/07/2017 #Postoperative respiratory failure requiring mechanical ventilation #Intraoperative severe hypotension leading to hypovolemic shock requiring pressor support #Intraoperative sinus bradycardia/junctional rhythm #Leukocytosis with bandemia without source of infection #Electrolyte imbalance #History of diabetes #History of severe COPD/asthma #History of TIA #History of hypertension 24 Hour Events: Yesterday evening patient was found to have a right upper extremity DVT. We consulted surgical PA who spoke with vascular surgery and started patient on xeralto 15 mg twice a day. Patient was seen and examined this morning. She was found to be very short of breath and uncomfortable. She was complaining cough of right upper abdominal/ right lower chest pain and tenderness. Pain was pleuritic in nature. Yesterday night she was slightly hypotensive with tachycardic there was concern for PE and given her right lower chest pleuritic pain CTA was ordered to rule out PE or any pulmonary pathology/infiltrate. 470 mL of drainage from CLARIBEL drain 1 and 2 since surgery.She was also complaining of some pain while swallowing food. Objective Vital Signs & I&O Last 8 Hrs of Vitals and I&O: Blood pressure 138/50, temperature 98.2, pulse 102, respiratory rate 20 and she is saturating 100% on 2 L nasal cannula. Exam General Appearance: alert, awake, mild distress Head: atraumatic, normal appearance Neck: supple Respiratory: bilateral mild rhonchi, right lower chest/upper abdomen tenderness Cardiovascular: regular rate/rhythm, edema Gastrointestinal: soft, right upper quadrant tenderness Extremities: normal inspection, bilateral trace lower extremity edema Weaning Parameters NIF: 37 Minute Volume: 9.5 Resp rate: 22 Vt: 432 Heart Rate: 93 Weaning Schedule Start Time: 0812 Minute Volume: 10.2 Resp Rate: 17 Vt: 325 Heart Rate: 92 End Time: 1012 Minute Volume: 10.7 Resp Rate: 24 Vt: 400 Heart Rate: 95 Impression/Plan Impression/Problem List Impression: This is a 71-year-old female with past medical history significant for asthma, COPD not on home oxygen, history of multiple admissions for MRSA pneumonia, hypertension, hyperlipidemia, diabetes mellitus, TIA on Plavix, insomnia, GERD, osteoarthritis, carpal tunnel syndrome, peripheral vascular disease, bilateral lung nodules, previous occluded right internal carotid artery with no significant flow, chronic back pain status post spinal fusion in 2012, was admitted to surgical service on 10/06/2017 for severe back pain, and claudication, found to have severe spinal stenosis requiring laminectomy on .She underwent prolonged surgery and had general anesthesia for prolonged period of time. Patient was also found to have right upper extremity DVT significant for occlusive thrombus within the mid to distal right brachial vein and the Basilic vein Severe lumbar spinal stenosis status post laminectomy on 10/07/2017 Postoperative respiratory failure requiring mechanical ventilation Intraoperative severe hypotension/circular tissue shock requiring pressor support Intraoperative sinus bradycardia/junctional rhythm Leukocytosis with bandemia without source of infection Electrolyte imbalance History of diabetes History of severe COPD/asthma History of TIA History of hypertension Problem List: 1. Spondylosis of lumbar spine 2. DVT (deep venous thrombosis) Pain Ratin Pain Location: Right upper quadrant Tomorrow's Labs & Rationales: CBC and ICU BUNDLE Plan Respiratory: * Patient was extubated successfully yesterday. No postextubation dyspnea. As she was complaining of some pain and difficulty on swallowing we will give her 40 mg of IV Solu-Medrol to reduce edema if any. * She was dyspneic and short of breath this morning. CTA doesn't show any evidence of pulmonary embolism or infiltrate. I shortness of breath was most likely due to fluid overload and 40 mg of IV Lasix was given resulted in significant relief. * Patient was also encouraged for incentive spirometry Infectious Diseases: Leukocytosis is most likely reactive in nature. Her WBC count is nicely going down. We will continue vancomycin as per surgery for prophylaxis. Cardiovascular: She remained stable and troponin became negative yesterday and she remained in sinus rhythm. Cardiology is on board. Home dose of Cardizem was started yesterday. As per cardiology there is no need for echocardiogram in this admission. Hematology: For her DVT patient was started on anticoagulation with xeralto 15 mg twice a day. Anticoagulation with risk of bleeding were again discussed with surgical PA who contacted neurosurgery as well as vascular surgery given her increased bleeding risk for spinal hematoma in situation of prolonged recent surgery we found out that neurosurgery as well as vascular surgery are comfortable continuing her on current dose of anticoagulation. We'll continue monitoring H&H daily Metabolic: We will replete electrolytes accordingly Alimentary: She is currently on regular diet Neurological: No neurological deficit noted DVT/Prophylaxis: shannan Kahn MD,Oleg 10/09/17 1349: Objective Current Medications: Current Medications Sig/Clementine Start time Last Medication Dose Route Stop Time Status Admin Albuterol Sulfate 3 ML TID 10/07 2100 AC 10/10 INH 0813 Budesonide/ 2 PUF BID 10/08 2100 AC 10/10 Formoterol Fumarate INH 0511 Dextrose/Lactated 1,000 ML Q13H 10/07 1945 DC 10/09 Ringer's IV 1149 Diltiazem HCl 30 MG Q6 10/08 1946 AC 10/10 PO 0547 Furosemide 40 MG ONCE ONE 10/09 1015 DC 10/09 IV 10/09 1016 1006 Guaifenesin 600 MG Q12 10/08 2100 AC 10/10 PO 0915 Hydrocodone Bitart/ 2 TAB Q4 10/10 1000 CAN Acetaminophen PO Hydrocodone Bitart/ 1 TAB Q4 HRS NEEDED PRN 10/10 0715 AC Acetaminophen PO Hydrocodone Bitart/ 1 TAB Q4P PRN 10/10 0715 CAN Acetaminophen PO Hydrocodone Bitart/ 2 TAB Q4 HRS NEEDED PRN 10/10 0715 AC Acetaminophen PO Insulin Aspart 0 TIDAC 10/10 1200 UNVr SC Insulin Aspart 0 TIDAC 10/08 1700 DC 10/10 SC 0753 Ipratropium [place] 2.5 ML TID 10/07 2100 AC 10/10 INH 0813 Magnesium Oxide 400 MG BID 10/09 1004 DC 10/09 PO 10/09 2101 2053 Magnesium Sulfate 1 GM ONCE ONE 10/10 0900 AC 10/10 Dextrose/Water 100 ML IV 10/10 1259 0915 Methylprednisolone 40 MG ONCE ONE 10/09 1100 DC 10/09 IV 10/09 1101 1119 Montelukast Sodium 10 MG AT BEDTIME 10/08 2100 AC 10/09 PO 2053 Morphine Sulfate 2 MG Q3P PRN 10/08 1345 AC 10/10 IV 0547 Ondansetron HCl 4 MG Q6P PRN 10/07 1945 AC 10/08 IV 0950 Oxycodone/ 1 TAB Q3P PRN 10/08 1030 DC Acetaminophen PO Oxycodone/ 2 TAB Q3P PRN 10/08 1030 DC Acetaminophen PO Pantoprazole Sodium 40 MG DAILY 10/08 0900 AC 10/10 IV 0915 Polyethylene Glycol 17 GM DAILY 10/09 1115 AC 10/10 PO 0915 Potassium Chloride 40 MEQ ONCE ONE 10/09 1015 DC 10/09 PO 10/09 1016 1120 Promethazine HCl 12.5 MG Q6P PRN 10/07 1945 AC IV 10/14 1859 Rivaroxaban 15 MG BID 10/08 2100 AC 10/10 PO 0915 Senna/Docusate Sodium 2 TAB DAILY PRN 10/09 1115 AC 10/09 PO 2052 Vancomycin HCl 1,000 MG Q12H 10/08 0400 AC 10/10 Sodium Chloride 250 ML IV 0409 Attending MD Review Statement Attending Sign Off Attending Cosign Statement: I have: examined this patient, reviewed avalbl EMR data, personally reviewd images, discussd w/resident/PA/CALCINER OPERATOR, discussed mgmt plan w/anna marie, discussed mgmt plan w/CM, discussed mgmt plan w/pt, agreed w/resident/PA/CALCINER OPERATOR, amended to note. Other Findings: Impression 71 year old woman * extensive back surgery * RUE DVT * hx of asthma * hx of MRSA pna Plan Respiratory -trc/nebs -solumedrol once today ID -per surgical team CVS -f/u Dr. Young's/Cardiology recommendations Heme -monitor cbc, platelets -xarelto -inquire with vascular surgery plan of action regarding picc line on right Metabolic -ins/outs -creatinine/electrolyte monitoring Alimentary -diet as tolerated Neuro -pain control DVT prophylaxis at all times TTS 35 min
--- NOTE | 2017-10-09 10:21 | CT SCAN REPORT ---
EXAMINATION: CT ANGIOGRAM CHEST CLINICAL INFORMATION: PE. Shortness of breath and DVT. The technologist notes indicate the patient is status post back surgery. COMPARISON: None TECHNIQUE: Multiple axial images were obtained through the chest after the administration of 59 mL of Optiray 320 intravenous contrast. Images were reviewed on a dedicated 3-D workstation. FINDINGS: No central or segmental pulmonary embolus seen. The aorta is normal in caliber. No aneurysm or dissection. No pulmonary nodules or masses seen. There is borderline bronchiectasis in the lower lobes bilaterally. There is chronic appearing posterior left lower lobe consolidation. No pleural effusion or pneumothorax. Normal heart size. No adrenal mass. No acute or suspicious osseous abnormality with multilevel degenerative changes of the thoracic spine. IMPRESSION: No central or segmental pulmonary embolus seen.
[2017-10-09 12:00] VITALS: BP 138/50
--- NOTE | 2017-10-09 12:03 | ULTRASOUND REPORT ---
EXAMINATION: LEFT UPPER EXTREMITY VENOUS ULTRASOUND CLINICAL INFORMATION: Left upper extremity edema COMPARISON: None. TECHNIQUE: Doppler spectral analysis and color flow Doppler imaging was performed of the left upper extremity. Compression and augmentation maneuvers were performed. FINDINGS: The left internal jugular vein, subclavian vein, axillary vein, brachial vein, basilic vein, cephalic vein, and visualized forearm veins were well-identified and normal. They demonstrate normal compressibility and color fill-in. IMPRESSION: No evidence for left upper extremity deep vein thrombosis.
--- NOTE | 2017-10-09 13:00 | ULTRASOUND REPORT ---
EXAMINATION: US ABDOMEN LIMITED CLINICAL INFORMATION: This is a 71-year-old female with a positive Sales's sign. Possible cholecystitis.. Right upper quadrant pain. COMPARISON: None TECHNIQUE: Real-time imaging of the right upper quadrant abdominal viscera. FINDINGS: PANCREAS: Normal. LIVER: There is coarse inhomogeneous increased echogenicity throughout the liver consistent with primary hepatocellular disease. There are small areas of decreased density in the classic location near the gallbladder suggesting focal fatty sparing. No intrahepatic or extrahepatic biliary duct dilatation is demonstrated. Liver is of normal size. No focal masses are seen. GALLBLADDER: Normal. The gallbladder is physiologically distended without evidence of stones, sludge, polyps, wall thickening or pericholecystic fluid. There is no tenderness to direct palpation over the gallbladder. COMMON BILE DUCT: Normal in caliber measuring 0.3 cm in diameter. RIGHT KIDNEY: Normal. No hydronephrosis. No renal calculi or focal parenchymal lesions. The kidney measures 9.2 cm in maximum dimension. FREE FLUID: None. IMPRESSION: 1. 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 2. Normal-appearing gallbladder without evidence of cholelithiasis or ultrasound findings of cholecystitis.
[2017-10-09 16:00] VITALS: BP 140/52
[2017-10-09 23:00] VITALS: BP 168/60
[2017-10-10 04:05] LABS: ABSOLUTE BASOPHIL COUNT 0 /CUMM (0.0-0.2); ABSOLUTE EOSINOPHIL COUNT 0 /CUMM (0.0-0.7); ABSOLUTE GRANULOCYTE CT 16.9 /CUMM (1.4-6.5); ABSOLUTE LYMPH COUNT 1.5 /CUMM (1.2-3.4); ABSOLUTE MONOCYTE COUNT 1.5 /CUMM (0.10-0.60); BASOPHIL % 0 % (0.0-2.0); EOSINOPHIL % 0 % (0-5); GRANULOCYTE % 85.2 % (42.2-75.2); HEMATOCRIT 26.3 % (37-47); MEAN CORPUSCULAR HGB 28.8 PG (27.0-31.0); MEAN CORPUSCULAR HGB CONC 33.3 G/DL (33.0-37.0); MEAN CORPUSCULAR VOLUME 86.6 FL (81.0-99.0); MEAN PLATELET VOLUME 7.8 FL (7.4-10.4); PLATELET COUNT 180 /CUMM (130-400); RBC DISTRIBUTION WIDTH 13.4 % (11.5-14.5); RED BLOOD CELL CT 3.04 /CUMM (4.20-5.40); WHITE BLOOD CELL COUNT 19.8 /CUMM (4.8-10.8)
--- NOTE | 2017-10-10 05:44 | PN- Orthopedic ---
See Addendum Subjective Subjective: Overnight events noted. Patient is sitting up in bed and is comfortable in current position. Was oob yesterday to bedside chair, but has not ambulated. Drains putting out 10mL from #1 CLARIBEL and 20 mL from #2 CLARIBEL overnight. Tolerating diet. Otherwise, comfortable. Denies sob, cp, n/v/d, f/c/s. Objective Vital Signs and I&Os Vital Signs Date Time Temp Pulse Resp B/P B/P Pulse O2 O2 Flow FiO2 Mean Ox Delivery Rate 10/10 0547 84 25 176/64 10/10 0400 98 Nasal 2.0L Cannula 10/10 0000 98 Nasal 2.0L Cannula 10/09 2315 102 16 168/58 10/09 2300 97.9 100 21 168/60 98 Nasal 2.0L Cannula 10/09 2000 98 Nasal 2.0L Cannula 10/09 1939 96 Nasal 1.0L Cannula 10/09 1704 99 140/52 10/09 1600 97 Nasal 2.0L Cannula 10/09 1600 98.2 92 18 140/52 97 Nasal 2.0L Cannula 10/09 1200 100 Nasal 2.0L Cannula 10/09 1200 98.2 102 20 138/50 100 Nasal 2.0L Cannula 10/09 1120 99 176/79 10/09 0826 97 Nasal 1.0L Cannula 10/09 0800 100 Nasal 1.0L Cannula 10/09 0800 97.9 92 18 160/60 100 Nasal 1.0L Cannula Intake & Output 10/10 0800 10/10 0000 10/09 1600 10/09 0800 10/09 0000 10/08 1600 Intake Total 3782 677 3182 1036 970 Output Total 1255 2070 470 315 300 Balance -192 -1180 917 721 670 Intake, IV 530 063 1054 936 750 Intake, Oral 360 340 220 100 220 Number 0 0 0 Bowel Movements Output, 55 120 130 105 150 Drainage Output, Urine 1200 1950 340 210 150 Patient 205 lb Weight Physical Exam: General: AAOx3, answering questions without problems, NAd CV: RRR Pulm: decrease in bilateral bases Abdmomen: obese, nt/nd Neuro: dressing are c/d/i, CLARIBEL putting out about 30mL overnight, bloody moving all extremitys spontaneously Extremities: moderate amount of peripheral edema Current Medications: Current Medications Sig/Clementine Start time Last Medication Dose Route Stop Time Status Admin Albuterol Sulfate 3 ML TID 10/07 2100 AC 10/09 INH 1933 Budesonide/ 2 PUF BID 10/08 2100 AC 10/10 Formoterol Fumarate INH 0511 Dextrose/Lactated 1,000 ML Q13H 10/07 1945 AC 10/09 Ringer's IV 1149 Diltiazem HCl 30 MG Q6 10/08 1946 AC 10/09 PO 2315 Furosemide 40 MG ONCE ONE 10/09 1015 DC 10/09 IV 10/09 1016 1006 Guaifenesin 600 MG Q12 10/08 2100 AC 10/09 PO 2052 Insulin Aspart 0 TIDAC 10/08 1700 AC 10/09 SC 210 Ipratropium [place] 2.5 ML TID 10/07 2100 AC 10/09 INH 1933 Magnesium Oxide 400 MG BID 10/09 1004 DC 10/09 PO 10/09 Methylprednisolone 40 MG ONCE ONE 10/09 1100 DC 10/09 IV 10/09 1101 1119 Montelukast Sodium 10 MG AT BEDTIME 10/08 2100 AC 10/09 PO 2052 Morphine Sulfate 2 MG Q3P PRN 10/08 1345 AC 10/09 IV 2133 Ondansetron HCl 4 MG Q6P PRN 10/07 1945 AC 10/08 IV 0950 Oxycodone/ 1 TAB Q3P PRN 10/08 1030 AC Acetaminophen PO Oxycodone/ 2 TAB Q3P PRN 10/08 1030 AC Acetaminophen PO Pantoprazole Sodium 40 MG DAILY 10/08 0900 AC 10/09 IV 0833 Polyethylene Glycol 17 GM DAILY 10/09 1115 AC PO Potassium Chloride 40 MEQ ONCE ONE 10/09 1015 DC 10/09 PO 10/09 1016 1120 Promethazine HCl 12.5 MG Q6P PRN 10/07 1945 AC IV 10/14 1859 Rivaroxaban 15 MG BID 10/08 2100 AC 10/09 PO 2054 Senna/Docusate Sodium 2 TAB DAILY PRN 10/09 1115 AC 10/09 PO 2052 Vancomycin HCl 1,000 MG Q12H 10/08 0400 AC 10/10 Sodium Chloride 250 ML IV 0409 Results Last 48 Hours of Labs: Laboratory Tests 10/10 10/09 0320 0400 Chemistry Sodium (137 - 145 mmol/L) 137 135 L Potassium (3.5 - 5.1 mmol/L) 4.3 3.8 Chloride (98 - 107 mmol/L) 99 101 Carbon Dioxide (22 - 30 mmol/L) 30 28 Anion Gap (5 - 16) 7 5 BUN (7 - 17 mg/dL) 13 11 Creatinine (0.5 - 1.0 mg/dL) 0.6 0.7 Estimated GFR (>60 ml/min) > 60 > 60 BUN/Creatinine Ratio (7 - 25 %) 21.7 Glucose (65 - 99 mg/dL) 178 H Calcium (8.4 - 10.2 mg/dL) 7.7 L Phosphorus (2.5 - 4.5 mg/dL) 2.8 Magnesium (1.6 - 2.3 mg/dL) 1.5 L Total Bilirubin (0.2 - 1.3 mg/dL) 0.3 AST (14 - 36 U/L) 45 H ALT (9 - 52 U/L) 47 [id number] Pept (<125 pg/mL) 389 H Albumin (3.5 - 5.0 g/dL) 2.4 L Hematology CBC w Diff MAN DIFF ORDERED NO MAN DIFF REQ WBC (4.8 - 10.8 /CUMM) 19.8 H 19.9 H RBC (4.20 - 5.40 /CUMM) 3.04 L 3.29 L Hgb (12.0 - 16.0 G/DL) 8.8 L 9.5 L Hct (37 - 47 %) 26.3 L 28.3 L MCV (81.0 - 99.0 FL) 86.6 86.2 MCH (27.0 - 31.0 PG) 28.8 28.9 MCHC (33.0 - 37.0 G/DL) 33.3 33.5 RDW (11.5 - 14.5 %) 13.4 14.0 Plt Count (130 - 400 /CUMM) 180 177 MPV (7.4 - 10.4 FL) 7.8 8.3 Gran % (42.2 - 75.2 %) 85.2 H 78.4 H Lymphocytes % (20.5 - 51.1 %) 7.4 L 11.0 L Monocytes % (1.7 - 9.3 %) 7.4 9.6 H Eosinophils % (0 - 5 %) 0 0.8 Basophils % (0.0 - 2.0 %) 0 0.2 Absolute Granulocytes (1.4 - 6.5 /CUMM) 16.9 H 15.6 H Absolute Lymphocytes (1.2 - 3.4 /CUMM) 1.5 2.2 Absolute Monocytes (0.10 - 0.60 /CUMM) 1.5 H 1.9 H Absolute Eosinophils (0.0 - 0.7 /CUMM) 0 0.2 Absolute Basophils (0.0 - 0.2 /CUMM) 0 0 Platelet Estimate (ADEQUATE) ADEQUATE Normocytic RBCs VERIFIED Normochromic RBCs VERIFIED 10/08 10/08 1118 0615 Blood Gas pH (7.35 - 7.45 PH) 7.51 H pCO2 (35 - 45 TORR) 23 L pO2 (80 - 100 TORR) 187 H HCO3 (21 - 28 MEQ/L) 18 L ABG O2 Sat (Measured) (>96.0 %) 99.0 P-50 (Temp Corrected) N Carboxyhemoglobin (1.5 - 5.0 %) 0.3 L O2 Concentration % .40 Respiration Rate (BPM) 16 O2 Delivery Method VENT Vent Mode A/C Expiratory Pressure (CMH2O/P) 5 Tidal Volume (CC) 500 Chemistry Troponin I (< 0.11 ng/ml) 0.06 Miscellaneous Phlebotomy Draw Site CRUZITO Assessment/Plan Assessment/Plan 71-year-old female POD#3 s/p instrumented lumbar fusion. Post op course complicated by RUE DVT. Consultation with Dr. Velazquez from vascular surgery was obtained and recommendations of oral coagulation has been started, xeralto. Making good UOP and otherwise HD stable - Monitor and record CLARIBEL output - Appreciate ongoing medical and vascular recommendations - Castillo - OOB with PT/OT/nursing as tolerated - continue current pain regimen - dc IVFs - Continue abx - Need to monitor H&H, drop to 8.8/26.3 this morning - xerelto per vascular Core Measures Venous Thromboembolism VTE Risk Factors Age>40 No Mechanical VTE Prophylaxis d/t N/A MechProphylax Ordered No VTE Pharm Prophylaxis d/t Surgical Contraindication (initially)
--- NOTE | 2017-10-10 06:14 | PN- Resident CRCU ---
CaitlinGeorgenicole 10/10/17 0612: Subjective HPI/CRCU Issues: #Severe lumbar spinal stenosis status post laminectomy on 10/07/2017 #Postoperative respiratory failure requiring mechanical ventilation #Intraoperative severe hypotension leading to hypovolemic shock requiring pressor support #Intraoperative sinus bradycardia/junctional rhythm #Leukocytosis with bandemia without source of infection #Electrolyte imbalance #History of diabetes #History of severe COPD/asthma #History of TIA #History of hypertension Mrs. Eduardo feels better compared to yesterday. No shortness of breath no chest pain, and cough is improved compared to yesterday. She has been afebrile overnight. Vitals were stable overnight. Pain is adequately controlled, and pain in her right hypochondriac area seems to have improved compared to yesterday. Rates it as 4-10/22. 24 Hour Events: Temp99.4 MO 92-104 SBP 146-173 DBP 50-80 Pulse ox 100% on 2 L nasal cannula Input 2767 mL Output 4405 milliliters CLARIBEL drain output. 160 mL, 45 mL Objective Vital Signs & I&O Last 8 Hrs of Vitals and I&O: Intake & Output 10/10 0800 Intake Total 814 Output Total 1080 Balance -266 Intake, IV 714 Intake, Oral 100 Number 0 Bowel Movements Output, 30 Drainage Output, Urine 1050 Exam General Appearance: awake Other Physical Findings: General Exam: AAOx3, No acute distress, Skin: No rashes, no breakdown;HEENT: PERRLA, EOMI;Neck: Supple, No JVD; No cervical lymphadenopathy;CVS: Reg Rate, Normal S1,S2, No MGR;Resp: Normal air entry, ronchi but no rales;Abdomen: Soft, No tenderness, Normal Bowel Sounds;Neuro: Normal Speech, Strength 5/5 b/l x 4 extremities, Sensation intact, CN III-XII NL, Reflexes 2+;Extremities: No cyanosis, bilateral pedal edema; CLARIBEL drains in place. Couldnt complete the neurological exam, but she could move her lower extremities, and was able to push the leg against resistance. She has PICC line in place on the right arm, but no erythema was noted. Weaning Parameters NIF: 37 Minute Volume: 9.5 Resp rate: 22 Vt: 432 Heart Rate: 93 Weaning Schedule Start Time: 0812 Minute Volume: 10.2 Resp Rate: 17 Vt: 325 Heart Rate: 92 End Time: 1012 Minute Volume: 10.7 Resp Rate: 24 Vt: 400 Heart Rate: 95 Current Medications: Current Medications Sig/Clementine Start time Last Medication Dose Route Stop Time Status Admin Albuterol Sulfate 3 ML TID 10/07 2100 AC 10/09 INH 1933 Budesonide/ 2 PUF BID 10/08 2100 AC 10/10 Formoterol Fumarate INH 0511 Dextrose/Lactated 1,000 ML Q13H 10/07 1945 DC 10/09 Ringer's IV 1149 Diltiazem HCl 30 MG Q6 10/08 1946 AC 10/10 PO 0547 Furosemide 40 MG ONCE ONE 10/09 1015 DC 10/09 IV 10/09 1016 1006 Guaifenesin 600 MG Q12 10/08 2100 AC 10/09 PO 2052 Insulin Aspart 0 TIDAC 10/08 1700 AC 10/09 SC 210 Ipratropium [place] 2.5 ML TID 10/07 2100 AC 10/09 INH 1933 Magnesium Oxide 400 MG BID 10/09 1004 DC 10/09 PO 10/09 Methylprednisolone 40 MG ONCE ONE 10/09 1100 DC 10/09 IV 10/09 1101 1119 Montelukast Sodium 10 MG AT BEDTIME 10/08 2100 AC 10/09 PO 2052 Morphine Sulfate 2 MG Q3P PRN 10/08 1345 AC 10/10 IV 0547 Ondansetron HCl 4 MG Q6P PRN 10/07 194 AC 10/08 IV 0950 Oxycodone/ 1 TAB Q3P PRN 10/08 1030 AC Acetaminophen PO Oxycodone/ 2 TAB Q3P PRN 10/08 1030 AC Acetaminophen PO Pantoprazole Sodium 40 MG DAILY 10/08 0900 AC 10/09 IV 0833 Polyethylene Glycol 17 GM DAILY 10/09 1115 AC PO Potassium Chloride 40 MEQ ONCE ONE 10/09 1015 DC 10/09 PO 10/09 1016 1120 Promethazine HCl 12.5 MG Q6P PRN 10/07 1945 AC IV 10/14 1859 Rivaroxaban 15 MG BID 10/08 2100 AC 10/09 PO 2054 Senna/Docusate Sodium 2 TAB DAILY PRN 10/09 1115 AC 10/09 PO 2052 Vancomycin HCl 1,000 MG Q12H 10/08 0400 AC 10/10 Sodium Chloride 250 ML IV 0409 Impression/Plan Impression/Problem List Impression: Ms Eduardo is a 71-year-old woman with past medical history significant for asthma, COPD not on home oxygen, history of multiple admissions for MRSA pneumonia, hypertension, hyperlipidemia, diabetes mellitus, TIA on Plavix, insomnia, GERD, osteoarthritis, carpal tunnel syndrome, peripheral vascular disease, bilateral lung nodules, previous occluded right internal carotid artery with no significant flow, chronic back pain status post spinal fusion in 2012, was admitted to surgical service on 10/06/2017 for severe back pain, and claudication, found to have severe spinal stenosis requiring laminectomy on .She underwent prolonged surgery and had general anesthesia for prolonged period of time. Severe lumbar spinal stenosis status post laminectomy on 10/07/2017 Postoperative respiratory failure requiring mechanical ventilation Intraoperative severe hypotension/circular tissue shock requiring pressor support Intraoperative sinus bradycardia/junctional rhythm Leukocytosis with bandemia without source of infection Electrolyte imbalance History of diabetes History of severe COPD/asthma History of TIA History of hypertension Pertinent labs in the last 24 hrs: WBC 24.01 (10/08/2017)-->19.8 (10/10/2017) Hemoglobin 11.2 (10/08/2017)-->8.8 (10/10/2017) Platelet count 180k Sodium 137, K 4.3 BUN 13, creatinine 0.6. Magnesium 1.6, phosphorus 2.9, Problem list: #1 postoperative day 3 laminectomy #2 deep venous thrombosis right upper extremity #3 anemia, likely acute blood loss #4 hypomagnesemia 1. Respiratory: Stable at this time. She was given 1 dose of Solu-Medrol 40 mg IV, which could be repeated today. She's currently on 2 L nasal cannula supplemental oxygen, which could be tapered down today as tolerated. Continue guaifenesin, beta agonists. If the respiratory status worsens, would get a chest x-ray and diures appropriately. 2. Infectious: Leukocytosis. Improving she is currently on vancomycin for prophylaxis of MRSA infection as per orthopedic service. Difficulty decision to surgeon regarding continuation of prophylactic dose of vancomycin. 3. Circulatory-rate controlled. Currently normal sinus rhythm. Continue Cardizem 30 mg every 6. We'll change it to long-acting Cardizem in the next 24 hours. No echocardiogram at this time as per the salesperson terrazzo tiles. Would continue to monitor closely, and if she has any signs of volume overload, would get an echocardiogram and diurese her appropriately. Would add Losartan today after discussing with the salesperson terrazzo tiles. 4. Hematology: Noted to have a drop in H&H. Would recheck her H&H in the p.m., and would transfuse to keep it about 8. Given her recent surgery, she probably is not appropriately responding to loss of blood. Check reticulocyte counts, iron panel and transfuse if needed which would give her a good load of iron. Guaiac all stools. Platelets stable at this time. Monitor any abnormal bleed given her anticoagulation, and recent surgery. In regards to treatment of DVT, difficulty decision to the surgeon to continue the DOAC at this time. As per the vascular/surgical service who opted to leave the PICC line in place. Would defer the decision of PICC line management to surgical service. 5. Metabolic stable at this time. Blood sugars in the range of 200-300s. Range NovoLog sliding scale coverage from medium to high. Would start levemir at a low dose, after discussing with the attending. 6. Alimentary-tolerating diet well. Bowel regimen ordered. 7. Neurology-pain control with Vicodin as per surgical service. ICU checklist: DVT prophylaxis-pharmacological. GI prophylaxis-Protonix. #1 Central line- PICC line in place. #2 Arterial line- none( removed ) #3 Castillo catheter ( in place ) #4 Rectal tube ( none ) #5 NG tube ( none ) #6 IV/peripheral line- in place. #7 IV drips ( none ) #8 Vent settings: ( none ) #9 pressors ( none ) Problem List: 1. DVT (deep venous thrombosis) 2. MRSA (methicillin resistant staph aureus) culture positive 3. DVT prophylaxis Pain Ratin Tomorrow's Labs & Rationales: cbc icu bundle Plan DVT/Prophylaxis: pharmacological Oleg Kahn MD 10/10/17 1052: Attending MD Review Statement Attending Sign Off Attending Cosign Statement: I have: examined this patient, reviewed [facility] EMR data, personally reviewd images, discussd w/resident/PA/SENIOR EXECUTIVE ASSISTANT, discussed mgmt plan w/anna marie, discussed mgmt plan w/CM, discussed mgmt plan w/pt, agreed w/resident/PA/SENIOR EXECUTIVE ASSISTANT, amended to note. Other Findings: Impression 71 year old woman * extensive back surgery * RUE DVT * hx of asthma * hx of MRSA pna Plan Respiratory -trc/nebs -solumedrol once more today ID -per surgical team CVS -f/u Dr. Young's/Cardiology recommendations Heme -monitor cbc, platelets -xarelto -continue picc line per vascular surgery - RUE DVT and PICC line management per vascular Metabolic -ins/outs -creatinine/electrolyte monitoring Alimentary -diet as tolerated Neuro -pain control DVT prophylaxis at all times TTS 35 min DG to telemetry
[2017-10-10 08:00] VITALS: BP 140/60
--- NOTE | 2017-10-10 11:02 | PN- Cardiology ---
Subjective Subjective: The patient seems to be doing somewhat better today. No specific complaints. Respiratory status improved. Tearful over the recent of her cousin in [place]. Objective Vital Signs and I&Os Vital Signs Date Time Temp Pulse Resp B/P B/P Pulse O2 O2 Flow FiO2 Mean Ox Delivery Rate 10/10 0835 96 Room Air 10/10 0800 97.4 76 18 140/60 100 Nasal 2.0L Cannula 10/10 0800 100 Nasal 2.0L Cannula 10/10 0547 84 25 176/64 10/10 0400 98 Nasal 2.0L Cannula 10/10 0000 98 Nasal 2.0L Cannula 10/09 2315 102 16 168/58 10/09 2300 97.9 100 21 168/60 98 Nasal 2.0L Cannula 10/09 2000 98 Nasal 2.0L Cannula 10/09 1939 96 Nasal 1.0L Cannula 10/09 1704 99 140/52 10/09 1600 97 Nasal 2.0L Cannula 10/09 1600 98.2 92 18 140/52 97 Nasal 2.0L Cannula 10/09 1200 100 Nasal 2.0L Cannula 10/09 1200 98.2 102 20 138/50 100 Nasal 2.0L Cannula 10/09 1120 99 176/79 Intake & Output 10/10 1600 10/10 0800 10/10 0000 10/09 1600 10/09 0800 10/09 0000 Intake Total 814 6489 589 8246 1036 Output Total 1080 1255 2070 470 315 Balance -266 -192 -1180 917 721 Intake, IV 714 597 205 6397 936 Intake, Oral 100 360 340 220 100 Number 0 0 0 Bowel Movements Output, 30 55 120 130 105 Drainage Output, Urine 1050 1200 1950 340 210 Patient 205 lb Weight Physical Exam: General Appearance: well developed/nourished, alert, awake, oriented, mild distress related to dyspnea Head: normal HEENT: Normal Neck: supple, JVP normal, carotid upstrokes normal bilaterally, no masses or thyromegaly Respiratory: chest non-tender, essentially clear to auscultation and percussion bilaterally Cardiovascular: regular rate/rhythm, normal S1, S2, 1-2/6 systolic murmur Abdomen: normal bowel sounds, soft, non-tender Extremities: normal inspection, right upper extremity bandaged, bilateral upper extremity edema noted Vascular: Pulses are 2+ and equal bilaterally Neurologic: Grossly normal/nonfocal Current Medications: Current Medications Sig/Clementine Start time Last Medication Dose Route Stop Time Status Admin Albuterol Sulfate 3 ML TID 10/07 2100 AC 10/10 INH 0813 Budesonide/ 2 PUF BID 10/08 2100 AC 10/10 Formoterol Fumarate INH 0511 Dextrose/Lactated 1,000 ML Q13H 10/07 1945 DC 10/09 Ringer's IV 1149 Diltiazem HCl 30 MG Q6 10/08 1946 AC 10/10 PO 0547 Guaifenesin 600 MG Q12 10/08 2100 AC 10/10 PO 0915 Hydrocodone Bitart/ 2 TAB Q4 10/10 1000 CAN Acetaminophen PO Hydrocodone Bitart/ 1 TAB Q4 HRS NEEDED PRN 10/10 0715 AC 10/10 Acetaminophen PO 1027 Hydrocodone Bitart/ 1 TAB Q4P PRN 10/10 0715 CAN Acetaminophen PO Hydrocodone Bitart/ 2 TAB Q4 HRS NEEDED PRN 10/10 0715 AC Acetaminophen PO Insulin Aspart 0 TIDAC 10/10 1200 AC SC Insulin Aspart 0 TIDAC 10/08 1700 DC 10/10 SC 0753 Ipratropium [place] 2.5 ML TID 10/07 2100 AC 10/10 INH 0813 Magnesium Oxide 400 MG BID 10/09 1004 DC 10/09 PO 10/09 2102052 Magnesium Sulfate 1 GM ONCE ONE 10/10 0900 AC 10/10 Dextrose/Water 100 ML IV 10/10 1259 0915 Methylprednisolone 40 MG ONCE ONE 10/09 1100 DC 10/09 IV 10/09 1101 1119 Montelukast Sodium 10 MG AT BEDTIME 10/08 2100 AC 10/09 PO 205 Morphine Sulfate 2 MG Q3P PRN 10/08 1345 AC 10/10 IV 0547 Ondansetron HCl 4 MG Q6P PRN 10/07 1945 AC 10/08 IV 0950 Oxycodone/ 1 TAB Q3P PRN 10/08 1030 DC Acetaminophen PO Oxycodone/ 2 TAB Q3P PRN 10/08 1030 DC Acetaminophen PO Pantoprazole Sodium 40 MG DAILY 10/08 0900 AC 10/10 IV 0915 Polyethylene Glycol 17 GM DAILY 10/09 1115 AC 10/10 PO 0915 Promethazine HCl 12.5 MG Q6P PRN 04/25 1945 AC IV 10/14 1858 Rivaroxaban 15 MG BID 10/08 2099 AC 10/10 PO 0915 Senna/Docusate Sodium 2 TAB DAILY PRN 10/09 111 AC 10/09 PO 2052 Vancomycin HCl 1,000 MG Q12H 10/09 399 10/10 Sodium Chloride 250 ML IV 0409 Results Last 48 Hrs of Labs/Mics: Laboratory Tests 10/10/17 0320: Anion Gap 7, Estimated GFR > 60, BUN/Creatinine Ratio 21.7, Phosphorus 2.9, Magnesium 1.6, Iron 21 L, TIBC 228 L, Ferritin 209.0, CBC w Diff MAN DIFF ORDERED, RBC 3.04 L, MCV 86.6, MCH 28.8, MCHC 33.3, RDW 13.4, MPV 7.8, Gran % 85.2 H, Lymphocytes % 7.4 L, Monocytes % 7.4, Eosinophils % 0, Basophils % 0, Absolute Granulocytes 16.9 H, Absolute Lymphocytes 1.5, Absolute Monocytes 1.5 H, Absolute Eosinophils 0, Absolute Basophils 0, Platelet Estimate ADEQUATE, Normocytic RBCs VERIFIED, Normochromic RBCs VERIFIED, Retic Count 2.73 H 10/09/17 0400: Anion Gap 5, Estimated GFR > 60, Glucose 178 H, Calcium 7.7 L, Phosphorus 2.8, Magnesium 1.5 L, Total Bilirubin 0.3, AST 45 H, ALT 47, Yox-Y-Ipauofggzcr Pept 389 H, Albumin 2.4 L, CBC w Diff NO MAN DIFF REQ, RBC 3.29 L, MCV 86.2, MCH 28.9, MCHC 33.5, RDW 14.0, MPV 8.3, Gran % 78.4 H, Lymphocytes % 11.0 L, Monocytes % 9.6 H, Eosinophils % 0.8, Basophils % 0.2, Absolute Granulocytes 15.6 H, Absolute Lymphocytes 2.2, Absolute Monocytes 1.9 H, Absolute Eosinophils 0.2, Absolute Basophils 0 10/08/17 1118: Troponin I 0.06 Assessment/Plan Assessment/Plan Assessment: 1. Day #3 postop multilevel back fusion surgery 2. Intraoperative and postoperative bradycardia with transient junctional rhythm-resolved 3. Intraoperative and transient postoperative hypotension, initially requiring pressors, now stable and resolved 4. History of hypertension 5. History of hyperlipidemia 6. History of carotid arteries plaque bilaterally. Recommendations: -Respiratory status stable -Cardiac status stable -No reason to repeat echocardiogram at the present time -Monitor heart rate and blood pressure for now. -Oral Cardizem restarted as discussed. Continue to monitor for now. Further increases in Cardizem dose depending on clinical course -As noted, the patient was started on Xarelto for right upper extremity DVT -Evaluation for increased shortness of breath in process -In view of the fact that the patient is significantly positive on her fluid balance and is edematous, consider increasing IV Lasix to optimize negative fluid balance. (In addition to the fluid status recorded, the patient reportedly received 5 L of IV fluid in the operating room). Continue telemetry? Yes
--- NOTE | 2017-10-10 12:08 | Transfer of Care Summary ---
Hospital Course Course Hospital Course: Ms Eduardo is a 71-year-old woman with past medical history significant for asthma, COPD not on home oxygen, history of multiple admissions for MRSA pneumonia, hypertension, hyperlipidemia, diabetes mellitus, TIA on Plavix, insomnia, GERD, osteoarthritis, carpal tunnel syndrome, peripheral vascular disease, bilateral lung nodules, previous occluded right internal carotid artery with no significant flow, chronic back pain status post spinal fusion in 2012, was admitted to surgical service on 10/06/2017 for severe back pain, and claudication, found to have severe spinal stenosis requiring laminectomy on .She underwent prolonged surgery and had general anesthesia for prolonged period of time. Problem list: #1 postoperative day 3 laminectomy #2 deep venous thrombosis right upper extremity #3 anemia, likely acute blood loss #4 hypomagnesemia #5 Postoperative respiratory failure requiring mechanical ventilation #6 Intraoperative severe hypotension/circular tissue shock requiring pressor support #7 Intraoperative sinus bradycardia/junctional rhythm #8 Leukocytosis with bandemia without source of infection #9 Electrolyte imbalance #10 History of diabetes #11 History of severe COPD/asthma #12 History of TIA History of hypertension 1. Respiratory: Stable at this time. She was given 1 dose of Solu-Medrol 40 mg IV, which could be repeated today. She's currently on 2 L nasal cannula supplemental oxygen, which could be tapered down today as tolerated. Continue guaifenesin, beta agonists. If the respiratory status worsens, would get a chest x-ray and diures appropriately. 2. Infectious: Leukocytosis. Improving she is currently on vancomycin for prophylaxis of MRSA infection as per orthopedic service. Difficulty decision to surgeon regarding continuation of prophylactic dose of vancomycin. 3. Circulatory-rate controlled. Currently normal sinus rhythm. Continue Cardizem 30 mg every 6. We'll change it to long-acting Cardizem in the next 24 hours. No echocardiogram at this time as per the chip loft worker. Would continue to monitor closely, and if she has any signs of volume overload, would get an echocardiogram and diurese her appropriately. Would add Losartan today after discussing with the chip loft worker. 4. Hematology: Noted to have a drop in H&H. Would recheck her H&H in the p.m., and would transfuse to keep it about 8. Given her recent surgery, she probably is not appropriately responding to loss of blood. Check reticulocyte counts, iron panel and transfuse if needed which would give her a good load of iron. Guaiac all stools. Platelets stable at this time. Monitor any abnormal bleed given her anticoagulation, and recent surgery. In regards to treatment of DVT, difficulty decision to the surgeon to continue the DOAC at this time. As per the vascular/surgical service who opted to leave the PICC line in place. Would defer the decision of PICC line management to surgical service. 5. Metabolic stable at this time. Blood sugars in the range of 200-300s. Range NovoLog sliding scale coverage from medium to high. Would start levemir at a low dose, after discussing with the attending. 6. Alimentary-tolerating diet well. Bowel regimen ordered. 7. Neurology-pain control with Vicodin as per surgical service. ICU checklist: DVT prophylaxis-pharmacological. GI prophylaxis-Protonix. #1 Central line- PICC line in place. #2 Arterial line- none( removed ) #3 Castillo catheter ( in place ) #4 Rectal tube ( none ) #5 NG tube ( none ) #6 IV/peripheral line- in place. #7 IV drips ( none ) #8 Vent settings: ( none ) #9 pressors ( none )
--- NOTE | 2017-10-10 14:06 | PN- Orthopedic ---
See Addendum Subjective Subjective: Patient was seen earlier this morning and once again this afternoon. I have seen and examined the patient with Dr. Hopper from neurosurgery. Patient is comfortable on current pain meds. Drains are still in place Castillo will be removed this afternoon she is reminded to get out of bed with assistance Objective Vital Signs and I&Os Vital Signs Date Time Temp Pulse Resp B/P B/P Pulse O2 O2 Flow FiO2 Mean Ox Delivery Rate 10/10 1315 84 120/48 10/10 1131 147/58 10/10 0835 96 Room Air 10/10 0800 97.4 76 18 140/60 100 Nasal 2.0L Cannula 10/10 0800 100 Nasal 2.0L Cannula 10/10 0547 84 25 176/64 10/10 0400 98 Nasal 2.0L Cannula 10/10 0000 98 Nasal 2.0L Cannula 10/09 2315 102 16 168/58 10/09 2300 97.9 100 21 168/60 98 Nasal 2.0L Cannula 10/09 2000 98 Nasal 2.0L Cannula 10/09 1939 96 Nasal 1.0L Cannula 10/09 1704 99 140/52 10/09 1600 97 Nasal 2.0L Cannula 10/09 1600 98.2 92 18 140/52 97 Nasal 2.0L Cannula Intake & Output 10/10 1600 10/10 0800 10/10 0000 10/09 1600 10/09 0800 10/09 0000 Intake Total 814 7710 487 5992 1036 Output Total 1080 1255 2070 470 315 Balance -266 -192 -1180 917 721 Intake, IV 714 600 777 3436 936 Intake, Oral 100 360 340 220 100 Number 0 0 0 Bowel Movements Output, 30 55 120 130 105 Drainage Output, Urine 1050 1200 1950 340 210 Patient 205 lb Weight Physical Exam: Patient is alert and oriented 3 dressings dry drains with minimal output. Bilateral lower extremities are soft without tenderness. She has moderate weakness of her lower extremities due to deconditioning. Chest is clear to auscultation symmetric without rales rhonchi or wheeze Is regular rate rhythm without murmurs rubs gallops Assessment/Plan Assessment/Plan Assessment and plan patient is 3 days status post multilevel lumbar fusion with instrumentation she still has 2 Leo-Lawson drains and these will be removed when there is no drainage. She will continue on vancomycin and Zaroxolyn. Plan is to get her out of bed DC the Castillo and advance her Core Measures Venous Thromboembolism VTE Risk Factors Age>40 No Mechanical VTE Prophylaxis d/t N/A MechProphylax Ordered No VTE Pharm Prophylaxis d/t Surgical Contraindication (initially)
[2017-10-10 16:00] VITALS: BP 152/60
[2017-10-10 21:34] LABS: ABSOLUTE BASOPHIL COUNT 0 /CUMM (0.0-0.2); ABSOLUTE EOSINOPHIL COUNT 0 /CUMM (0.0-0.7); ABSOLUTE GRANULOCYTE CT 16.1 /CUMM (1.4-6.5); ABSOLUTE LYMPH COUNT 0.9 /CUMM (1.2-3.4); ABSOLUTE MONOCYTE COUNT 0.8 /CUMM (0.10-0.60); BASOPHIL % 0 % (0.0-2.0); EOSINOPHIL % 0 % (0-5); HEMATOCRIT 25.6 % (37-47); MEAN CORPUSCULAR HGB CONC 33.5 G/DL (33.0-37.0); MEAN CORPUSCULAR VOLUME 86.7 FL (81.0-99.0); MEAN PLATELET VOLUME 8.1 FL (7.4-10.4); PLATELET COUNT 231 /CUMM (130-400); RBC DISTRIBUTION WIDTH 13.8 % (11.5-14.5); RED BLOOD CELL CT 2.95 /CUMM (4.20-5.40); WHITE BLOOD CELL COUNT 17.8 /CUMM (4.8-10.8)
[2017-10-10 21:52] LABS: GRANULOCYTE % 90.6 % (42.2-75.2)
[2017-10-10 22:28] VITALS: BP 140/58
[2017-10-11 06:30] VITALS: BP 166/68
[2017-10-11 07:50] LABS: ABSOLUTE BASOPHIL COUNT 0 /CUMM (0.0-0.2); ABSOLUTE EOSINOPHIL COUNT 0 /CUMM (0.0-0.7); ABSOLUTE GRANULOCYTE CT 14.2 /CUMM (1.4-6.5); ABSOLUTE MONOCYTE COUNT 1.3 /CUMM (0.10-0.60); BASOPHIL % 0.2 % (0.0-2.0); EOSINOPHIL % 0 % (0-5); GRANULOCYTE % 80.8 % (42.2-75.2); HEMATOCRIT 25.2 % (37-47); MEAN CORPUSCULAR HGB 28.7 PG (27.0-31.0); MEAN CORPUSCULAR VOLUME 87.1 FL (81.0-99.0); MEAN PLATELET VOLUME 8.1 FL (7.4-10.4); PLATELET COUNT 244 /CUMM (130-400); RBC DISTRIBUTION WIDTH 13.6 % (11.5-14.5); WHITE BLOOD CELL COUNT 17.6 /CUMM (4.8-10.8)
--- NOTE | 2017-10-11 08:22 | PN- Orthopedic ---
See Addendum Subjective Subjective: 71-year-old female postop day 4 after multilevel lumbar instrumented fusion with complications doing daily include Postoperative respiratory failure requiring mechanical ventilation Intraoperative severe hypotension leading to hypovolemic shock requiring pressor support Intraoperative sinus bradycardia/junctional rhythm Leukocytosis with bandemia without source of infection Electrolyte imbalance DVT right upper extremity. She is now been downgraded to telemetry and has been seen today and appears to be doing well. She has an appetite however she hasn't had a bowel movement yet she denies any abdominal pain nausea or vomiting. Her back pain currently is controlled with pain medication. She has been complaining of right anterior rib pain. She had a prior CAT scan of the abdomen and also ultrasound of the right upper quadrant that showed no evidence of gallbladder disease. She has pinpoint tenderness over the anterior lateral aspect of the right ribs. Review of Systems: No fevers or chills no shortness of breath or chest pain Pain is controlled No bowel movement yet No abdominal pain or tenderness Positive right anterior reproducible chest pain No numbness or weakness of her lower extremities No edema or calf tenderness of the lower extremities Right arm edema has subsided Objective Vital Signs and I&Os Vital Signs Date Time Temp Pulse Resp B/P B/P Pulse O2 O2 Flow FiO2 Mean Ox Delivery Rate 10/11 0809 98 Room Air Room Air 10/11 0630 98.0 84 18 166/68 94 Room Air 10/11 0506 86 10/11 0000 Room Air 10/10 2358 92 156/68 10/10 2228 98.4 93 18 140/58 93 Room Air 10/10 2038 94 Room Air Room Air 10/10 1837 98 150/62 10/10 1600 94 Room Air 10/10 1600 98.3 88 18 152/60 94 Room Air 10/10 1315 84 120/48 10/10 1131 147/58 10/10 0835 96 Room Air Intake & Output 10/11 1600 10/11 0800 10/11 0000 10/10 1600 10/10 0800 10/10 0000 Intake Total 250 950 518 9938 Output Total 800 477 780 8690 1255 Balance -550 -250 -15 -266 -192 Intake, IV 250 160 714 703 Intake, Oral 800 100 360 Number 0 0 Bowel Movements Output, 50 75 30 55 Drainage Output, Urine 750 150 040 0941 1200 Patient is lying in bed sitting upright had breakfast complains of no abdominal pain however has right anterior rib pain. Chest is clear to auscultation symmetric without rales rhonchi or wheeze palpation of the anterior chest wall over the 10th rib area there is pain but no crepitus and there is reproducible pain that follows anteriorly and to the lateral aspect of the sternum. There is no bruising over this area or ecchymosis. Abdomen is rounded without distention nontender in all 4 quadrants there is no epigastric pain or right upper quadrant tenderness Heart is regular rate rhythm without murmurs rubs gallops Lumbar incision dressing was changed yesterday dressings are clean dry and intact. Drains are in place with minimal output overnight Bilateral lower extremities calves are soft bilaterally distal pulses are intact Physical Exam: Physical exam see above Assessment/Plan Assessment/Plan Assessment and plan Postop day #4 after lumbar instrumented fusion Short stay in the ICU and now on telemetry Recommend chest x-ray with marker placement over symptomatic area 's may be as result of positioning and surgery that she has tenderness over the ribs. Prior CAT scan and ultrasound of her right upper quadrant was done on 10/09 which was normal She hasn't had a bowel movement yet but is on stool softeners. Out of bed to chair today and hopefully she will get out with physical therapy Castillo catheter is out Core Measures Venous Thromboembolism VTE Risk Factors Age>40 No Mechanical VTE Prophylaxis d/t N/A MechProphylax Ordered No VTE Pharm Prophylaxis d/t Surgical Contraindication (initially)
--- NOTE | 2017-10-11 11:34 | RADIOLOGY REPORT ---
EXAMINATION: XR RIBS, RIGHT CLINICAL INFORMATION: Right anterior rib pain. Possible fracture. COMPARISON: CT images of the chest from 10/09/2017. TECHNIQUE: 3 views of the right ribs were obtained. FINDINGS: Lungs are symmetrically expanded and clear. No pulmonary consolidation, pneumothorax or pleural effusion. Cardiac silhouette is normal in size. The tip of the right arm peripherally inserted catheter is located in the [id number] superior vena cava. The right-sided ribs are unremarkable. No evidence of an acute, displaced rib fracture. 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 Lower lumbar spinal fusion hardware is partially included in the [id number]. IMPRESSION: 1. No acute pulmonary disease. 2. No evidence of right rib fracture.
--- NOTE | 2017-10-11 13:17 | PN- Pulmonary ---
Subjective HPI/Critical Care Issues: Patient seen and examined this morning. She had a rib x-ray which was normal. Overall she's feeling much better and she is not short of breath at rest. Her pain seems to be controlled as well. Objective Current Medications: Current Medications Sig/Clementine Start time Last Medication Dose Route Stop Time Status Admin Albuterol Sulfate 3 ML TID 10/07 2100 AC 10/11 INH 0807 Artificial Tears 2 GTT 4 TIMES/DAY 10/10 2100 AC 10/11 OPH 1252 Budesonide/ 2 PUF BID 10/08 2100 AC 10/11 Formoterol Fumarate INH 0825 Diclofenac Sodium 1 ALVARO 4 TIMES/DAY 10/11 1300 AC 10/11 TOP 1252 Diltiazem HCl 120 MG DAILY 10/12 0900 AC PO Diltiazem HCl 30 MG Q6 10/08 1946 AC 10/11 PO 10/12 0800 1252 Guaifenesin 600 MG Q12 10/08 2100 AC 10/11 PO 0823 Hydrocodone Bitart/ 1 TAB Q4 HRS NEEDED PRN 10/10 0715 AC 10/11 Acetaminophen PO 1027 Hydrocodone Bitart/ 2 TAB Q4 HRS NEEDED PRN 10/10 0715 AC 10/10 Acetaminophen PO 1514 Insulin Aspart 0 TIDAC 10/10 1200 AC 10/11 SC 1249 Ipratropium [place] 2.5 ML TID 10/07 2100 AC 10/11 INH 0807 Losartan Potassium 25 MG DAILY 10/10 1121 AC 10/11 PO 0823 Montelukast Sodium 10 MG AT BEDTIME 10/08 2100 AC 10/10 PO 2147 Morphine Sulfate 4 MG .STK-MED ONE 10/10 1659 DC IM 10/10 1700 Morphine Sulfate 2 MG Q3P PRN 10/08 1345 AC 10/11 IV 0540 Ondansetron HCl 4 MG Q6P PRN 10/07 1945 AC 10/08 IV 0950 Pantoprazole Sodium 40 MG DAILY 10/08 0900 AC 10/11 IV 1026 Polyethylene Glycol 17 GM DAILY 10/09 1115 AC 10/11 PO 0824 Promethazine HCl 12.5 MG Q6P PRN 10/07 1945 AC IV 10/14 1859 Rivaroxaban 15 MG BID 10/08 2100 AC 10/11 PO 0824 Senna/Docusate Sodium 2 TAB DAILY PRN 10/09 1115 AC 10/09 PO 205 Vancomycin HCl 1,000 MG Q12H 10/08 0400 AC 10/11 Sodium Chloride 250 ML IV 0505 Vital Signs & I&O Last 24 Hrs of Vitals and I&O: Vital Signs Date Time Temp Pulse Resp B/P B/P Pulse O2 O2 Flow FiO2 Mean Ox Delivery Rate 10/11 1252 88 160/88 10/11 0823 84 166/88 10/11 0809 98 Room Air Room Air 10/11 0630 98.0 84 18 166/68 94 Room Air 10/11 0506 86 10/11 0000 Room Air 10/10 2358 92 156/68 10/10 2228 98.4 93 18 140/58 93 Room Air 10/10 2038 94 Room Air Room Air 10/10 1837 98 150/62 10/10 1600 94 Room Air 10/10 1600 98.3 88 18 152/60 94 Room Air Intake & Output 10/11 1600 10/11 0800 10/11 0000 Intake Total 250 Output Total 800 250 Balance -550 -250 Intake, IV 250 Output, 50 Drainage Output, Urine 750 250 Exam Other Physical Findings: Generally the patient is awake and alert and comfortable at rest. Her lung examination reveals an improved examination with diminished breath sounds at the bases. Abdomen is soft. Upper extremity edema is improving. Cardiovascular exam reveals an S1 and S2. Results Last 24 Hrs of Lab Results: Laboratory Tests 10/11/17 0640: Anion Gap 7, Estimated GFR > 60, BUN/Creatinine Ratio 30.0 H, CBC w Diff NO MAN DIFF REQ, RBC 2.90 L, MCV 87.1, MCH 28.7, MCHC 33.0, RDW 13.6, MPV 8.1, Gran % 80.8 H, Lymphocytes % 11.3 L, Monocytes % 7.7, Eosinophils % 0, Basophils % 0.2, Absolute Granulocytes 14.2 H, Absolute Lymphocytes 2.0, Absolute Monocytes 1.3 H, Absolute Eosinophils 0, Absolute Basophils 0 10/10/17 2016: CBC w Diff NO MAN DIFF REQ, RBC 2.95 L, MCV 86.7, MCH 29.0, MCHC 33.5, RDW 13.8 , MPV 8.1, Gran % 90.6 H, Lymphocytes % 5.2 L, Monocytes % 4.2, Eosinophils % 0, Basophils % 0, Absolute Granulocytes 16.1 H, Absolute Lymphocytes 0.9 L, Absolute Monocytes 0.8 H, Absolute Eosinophils 0, Absolute Basophils 0 Impression/Plan Impression/Plan Impression/Plan: Impression 71 year old woman * extensive back surgery * RUE DVT * hx of asthma * hx of MRSA pna Plan -trc/nebs -No further steroids are necessary -f/u Dr. Young's/Cardiology recommendations -xarelto -continue picc line per vascular surgery - RUE DVT and PICC line management per vascular -pain control -IST -will sign out to medical team to follow up in consultation as of 10/12 DVT prophylaxis at all times
[2017-10-11 14:00] VITALS: BP 160/60
--- NOTE | 2017-10-11 15:15 | PN- Cardiology ---
Subjective Subjective: The patient continues to improve clinically. She has less discomfort today. Cardiac status stable. Objective Vital Signs and I&Os Vital Signs Date Time Temp Pulse Resp B/P B/P Pulse O2 O2 Flow FiO2 Mean Ox Delivery Rate 10/11 1252 88 160/88 10/11 0823 84 166/88 10/11 0809 98 Room Air Room Air 10/11 0630 98.0 84 18 166/68 94 Room Air 10/11 0506 86 10/11 0000 Room Air 10/10 2358 92 156/68 10/10 2228 98.4 93 18 140/58 93 Room Air 10/10 2038 94 Room Air Room Air 10/10 1837 98 150/62 10/10 1600 94 Room Air 10/10 1600 98.3 88 18 152/60 94 Room Air Intake & Output 10/11 1600 10/11 0800 10/11 0000 10/10 1600 10/10 0800 10/10 0000 Intake Total 440 250 763 233 8084 Output Total 600 800 914 867 4023 1255 Balance -160 -550 -250 -15 -266 -192 Intake, IV 40 250 160 714 703 Intake, Oral 400 800 100 360 Number 0 0 Bowel Movements Output, 50 75 30 55 Drainage Output, Urine 600 750 396 232 5538 1200 Physical Exam: General Appearance: well developed/nourished, alert, awake, oriented, mild distress related to dyspnea Head: normal HEENT: Normal Neck: supple, JVP normal, carotid upstrokes normal bilaterally, no masses or thyromegaly Respiratory: chest non-tender, essentially clear to auscultation and percussion bilaterally Cardiovascular: regular rate/rhythm, normal S1, S2, 1-2/6 systolic murmur Abdomen: normal bowel sounds, soft, non-tender Extremities: normal inspection, right upper extremity bandaged, bilateral upper extremity edema noted Vascular: Pulses are 2+ and equal bilaterally Neurologic: Grossly normal/nonfocal Current Medications: Current Medications Sig/Clementine Start time Last Medication Dose Route Stop Time Status Admin Albuterol Sulfate 3 ML TID 10/07 INH 1320 Artificial Tears 2 GTT 4 TIMES/DAY 10/10 2100 10/11 OPH 1252 Budesonide/ 2 PUF BID 10/08 Formoterol Fumarate INH 0825 Diclofenac Sodium 1 ALVARO 4 TIMES/DAY 10/11 1300 AC 10/11 TOP 1252 Diltiazem HCl 120 MG DAILY 10/12 0900 AC PO Diltiazem HCl 30 MG Q6 10/08 1946 AC 10/11 PO 10/12 0800 1252 Guaifenesin 600 MG Q12 10/08 2100 AC 10/11 PO 0823 Hydrocodone Bitart/ 1 TAB Q4 HRS NEEDED PRN 10/10 0715 AC 10/11 Acetaminophen PO 1448 Hydrocodone Bitart/ 2 TAB Q4 HRS NEEDED PRN 10/10 0715 AC 10/10 Acetaminophen PO 1514 Insulin Aspart 0 TIDAC 10/10 1200 AC 10/11 SC 1249 Ipratropium [place] 2.5 ML TID 10/07 2100 AC 10/11 INH 1320 Losartan Potassium 25 MG DAILY 10/10 1121 AC 10/11 PO 0823 Montelukast Sodium 10 MG AT BEDTIME 10/08 2100 AC 10/10 PO 2147 Morphine Sulfate 4 MG .STK-MED ONE 10/10 1659 DC IM 10/10 1700 Morphine Sulfate 2 MG Q3P PRN 10/08 1345 AC 10/11 IV 1400 Ondansetron HCl 4 MG Q6P PRN 10/07 1945 AC 10/08 IV 0950 Pantoprazole Sodium 40 MG DAILY 10/08 0900 AC 10/11 IV 1026 Polyethylene Glycol 17 GM DAILY 10/09 1115 AC 10/11 PO 0824 Promethazine HCl 12.5 MG Q6P PRN 10/07 194 AC IV 10/14 1859 Rivaroxaban 15 MG BID 10/08 2100 AC 10/11 PO 0824 Senna/Docusate Sodium 2 TAB DAILY PRN 10/09 1115 AC 10/09 PO 2053 Vancomycin HCl 1,000 MG Q12H 10/08 0400 AC 10/11 Sodium Chloride 250 ML IV 0505 Results Last 48 Hrs of Labs/Mics: Laboratory Tests 10/11/17 0640: Anion Gap 7, Estimated GFR > 60, BUN/Creatinine Ratio 30.0 H, CBC w Diff NO MAN DIFF REQ, RBC 2.90 L, MCV 87.1, MCH 28.7, MCHC 33.0, RDW 13.6, MPV 8.1, Gran % 80.8 H, Lymphocytes % 11.3 L, Monocytes % 7.7, Eosinophils % 0, Basophils % 0.2, Absolute Granulocytes 14.2 H, Absolute Lymphocytes 2.0, Absolute Monocytes 1.3 H, Absolute Eosinophils 0, Absolute Basophils 0 10/10/17 2016: CBC w Diff NO MAN DIFF REQ, RBC 2.95 L, MCV 86.7, MCH 29.0, MCHC 33.5, RDW 13.8 , MPV 8.1, Gran % 90.6 H, Lymphocytes % 5.2 L, Monocytes % 4.2, Eosinophils % 0, Basophils % 0, Absolute Granulocytes 16.1 H, Absolute Lymphocytes 0.9 L, Absolute Monocytes 0.8 H, Absolute Eosinophils 0, Absolute Basophils 0 10/10/17 0320: Anion Gap 7, Estimated GFR > 60, BUN/Creatinine Ratio 21.7, Phosphorus 2.9, Magnesium 1.6, Iron 21 L, TIBC 228 L, Ferritin 209.0, CBC w Diff MAN DIFF ORDERED, RBC 3.04 L, MCV 86.6, MCH 28.8, MCHC 33.3, RDW 13.4, MPV 7.8, Gran % 85.2 H, Lymphocytes % 7.4 L, Monocytes % 7.4, Eosinophils % 0, Basophils % 0, Absolute Granulocytes 16.9 H, Absolute Lymphocytes 1.5, Absolute Monocytes 1.5 H, Absolute Eosinophils 0, Absolute Basophils 0, Platelet Estimate ADEQUATE, Normocytic RBCs VERIFIED, Normochromic RBCs VERIFIED, Retic Count 2.73 H Assessment/Plan Assessment/Plan Assessment: 1. Day #3 postop multilevel back fusion surgery 2. Intraoperative and postoperative bradycardia with transient junctional rhythm-resolved 3. Intraoperative and transient postoperative hypotension, initially requiring pressors, now stable and resolved 4. History of hypertension 5. History of hyperlipidemia 6. History of carotid arteries plaque bilaterally. Recommendations: -Respiratory status stable -Cardiac status stable -No reason to repeat echocardiogram at the present time -Monitor heart rate and blood pressure for now. -Restart Cardizem CD 120 mg daily in the morning -As noted, the patient was started on Xarelto for right upper extremity DVT -Continue to monitor fluid status -Out of bed as tolerated with physical therapy Continue telemetry? Yes
--- NOTE | 2017-10-11 17:01 | Operative Report ---
Operative/Inv Procedure Report Surgery Date: 10/07/17 Name of Procedure: 1) L3-L5 Removal Of Posterobilateral Btcurih-Arlzo-Zay-Crosslink Transvertebral Segmental Instrumentation Construct (Dania/Ke) 2) L3-L5 Posterobilateral Lumbar Region Fusion Mass Exploration (With Visual , Palpation And Mechanical Assessment) (Dania/Ke) 3) L3-L4 Posterobilateral Two Column Osteotomy Of Surgical Fusion Mass Required To Achieve Optimal Clinically Necessary Posterobilateral Revision Lateral Recess And Unroofing Foraminal Decompression At The L3-L4 Spinal Level As Well As L2-S1 Revision And New Fusion With Partial Congregation Of Segmental Lordosis (Dania/Ke) 4) L2 New Bilateral Decompressive Hemilaminotomies, L2-L3 Posterobilateral Osseous Element Lateral Recess And Foraminal Decompression (Right Subtotal And Left Partial Medial Facetectomies With Right Unroofing And Left Medial Expanding Foraminotomies), Extensive But Otherwise Standard Bilateral Recess Untethering Neurolysis, Right Neurodecompressive Intracanal Lateral Recess And Intraforaminal Discectomy Of Impinging Herniated Disk Fragment, Posterobilateral Neural Element Decompression And Subtotal Intradiscal Decorticating Discectomy For Interbody Arthrodesis Disk Space Preparation (Ke/Dania) 5) L3 Revision Bilateral Hemilaminectomies, L3-L4 Revision Posterobilateral Osseous Element Lateral Recess And Foraminal Decompression (Bilateral Subtotal Facetectomies And Unroofing Foraminotomies Which Could Only Be Accomplished After The Above Bilateral Osteotomy) And Complete Multizone Neural Element Decompression (Excluding The Component Of Decompression Requiring Extensive And Distinct Bilateral Recess Epidural Neurolysis Procedural Service Which Is Separately Listed Below With Detailed Description Of Surgical Necessity) (Ke /Dania) 6) L4 Revision Bilateral Hemilaminectomies, L4-L5 Revision Posterobilateral Osseous Element Lateral Recess And Foraminal Decompression (Bilateral Partial Medial Facetectomies And Expanding Foraminotomies), Extensive But Otherwise Standard Decompressive Bilateral Recess Neurolysis (Consistent With Other Decompresisve Procedures At This Level) And Complete Multizone Neural Element Decompression (Ke/Dania) 7) L5 Revision Bilateral Decompressive Hemilaminectomies, L5-S1 Posterobilateral Osseous Element Lateral Recess And Foraminal Decompression ( Right Partial Medial And Left Subtotal Facetectomies With Right Medial Expanding And Left Partial Unroofing Foraminotomies), Bilateral Recess Neurolysis, Left Intracanal Lateral Recess And Intraforaminal Neurodecompressive Discectomy, Confirmation Of Multizone Neural Element Decompression And Intradiscal Subtotal Decorticating Discectomy For Interbody Arthrodesis Disk Space Preparation ( Ke/Dania) 8) L2-L3 Bilateral Spinal Canal Dorsal, Dorsobilateral, Lateral Canal And Lateral Recess As Well As L2-L3 And L5-S1 Ventrobilateral, And Ventrobilateral Paracentral Epidural Neurolysis Surgically Required For Safe Completion Of The Remaining Originally Planned Multilevel Bilateral Neural Element Decompression And Mobilization, Discectomy And Interbody Fusion Portions Of The Procedure ( Ke/Dania) 9) L2-L3 Multicolumn (Anterior Column Interbody And Posterobilateral Column Osteoarticular Element And Intertransverse Process) Instrumented Fusion Using Morselized Locally Harvested Autograft Augmented With Nonstructural Allograft Substitute Osteopromotive Material ([facility]chner[facility] [facility]) 10) L3-L4 Revision Posterobilateral Column Osteoarticular Element And Intertransverse Process Instrumented Fusion Using Morselized Locally Harvested Autograft Augmented With Nonstructural Allograft Substitute Osteopromotive Material ([facility] [facility]) 11) L4-L5 Revision Posterobilateral Column Osteoarticular Element And Intertransverse Process Instrumented Fusion Using Morselized Locally Harvested Autograft Augmented With Nonstructural Allograft Substitute Osteopromotive Material ([facility] [facility]) 12) L5-S1 Multicolumn (Anterior Column Interbody And Posterobilateral Column Osteoarticular Element And Intertransverse Process) Instrumented Fusion Using Morselized Locally Harvested Autograft Augmented With Nonstructural Allograft Substitute Osteopromotive Material ([facility] [facility]) 13) L5-S1 Combination Closed And Open Treatment Of Dynamically Hypermobile And Unstable Lumbar Spondylolisthesis Subluxation Associated With Neural Element Deviation, Compression And Risk Of Neurological Functional Compromise Indicating Reduction Using Intraoperative Positioning And Direct Internal Manipulation Prior To Instrumented Stabilization Followed By Postoperative Rigid Lumbar Orthotic Bracing (Dania/Violetak) 14) L2-L3 Implantation Of Right Interbody Cage Instrumentation ([place]/ Blechner) 15) L5-S1 Implantation Of Left Interbody Cage Instrumentation (Blechner/[place] ) 16) L2-S1 Implantation Of Posterobilateral Miompsg-Vpust-Tiv Segmental Instrumentation Construct (Blechner/[place]) 17) L2-S1 Stealth Frameless Stereotactic Computer-Assisted Spinal Navigational Placement Of Posterobilateral Pedicle Screw Instrumentation (Dania) 18) Preparation, Reconstitution And Implantation Of L2-S1 Interbody And Posterobilateral Intertransverse Process Nonstructural Allograft Subtitute Osteopromotive Material (Dania) 19) Maurice, Preparation And Implantation Of L2-S1 Interbody And Posterobilateral Intertransverse Process Morselized Local Autograft (Dania) Pre-Operative Diagnosis: Primary Surgically Treated Diagnoses: 1) L5-S1 Lumbosacral Intervertebral Disc Disorder With Associated Bilateral Combined Proximal Lower Lumbar And Lumbosacral Distribution As Well As Concurrent Bilateral Combined Upper And Mid-Lumbar Distribution Radiculopathy* 2) L2-L3, L3-L4 And L4-L5 Lumbar Intervertebral Disc Disorder With Associated Bilateral Combined Upper And Mid-Lumbar Distribution As Well As Concurrent Bilateral Combined Proximal Lower Lumbar And Lumbosacral Distribution Radiculopathy* 3) L5-S1 Degenerative Dynamic Mid Grade I Lumbar Spondylolisthesis 4) Bilateral (Right Greater Than Left) Lower Extremity Proximal (Iliopsoas) Subjective And Objectively Documented Motor Neurological Deficit 5) L2-L3 And L5-S1 Degenerative And Secondary Postoperative Adjacent Spinal Segmental Radiologic And Clinical Lumbar And Lumbosacral Symptomatic And Laterally Compressive Microinstability (L2-L3 Low Grade I Dynamic Retrolisthesis And L5-S1 Grade I Dynamic Anterolisthesis) Secondary To Loss Of Posterobilateral Column Stability Due To Incompetent Facet Complex Associated With Translational Motion Greater Than Adjacent Segments Without Meeting Formal Mechanical Radiologic Criteria For High Risk Segmental Instability 6) L5-S1 Bilateral Recess And Foraminal Lumbosacral Osseous And Hypertrophic Soft Tissue Spinal Stenosis 7) L2-L3, L3-L4 And L4-L5 Bilateral Recess And Foraminal Lumbar Spinal Stenosis (Osseous And Hypertrophic Soft Tissue Stenosis Bilaterally At L2-L3 And Left L4-L5; Postoperative Epidural Fibrotic Soft Tissue Stenosis Bilaterally At L3-L4 And L4-L5) 8) Severe, Activity And Functionally Limiting, Intermittently Incapacitating , Debilitating And Disabling Lumbosacral Region Back Pain 9) L5-S1 Lumbosacral Spondylosis With Associated Bilateral Combined Proximal Lower Lumbar And Lumbosacral Distribution As Well As Concurrent Bilateral Combined Upper And Mid-Lumbar Distribution Radiculopathy* 10) L2-L3, L3-L4 And L4-L5 Lumbar Spondylosis With Associated Bilateral Combined Upper And Mid-Lumbar Distribution As Well As Concurrent Bilateral Combined Proximal Lower Lumbar And Lumbosacral Distribution Radiculopathy* 11) L2-L3 Degenerative Low Grade I Lumbar Retrolisthesis 12) L5-S1 Severe Degeneration Of Lumbosacral Intervertebral Disk Associated With Significant Disk Space Collapse, Intradiscal Vacuum Phenomenon, Degenerative Segmental Instability And Bilateral Vertical Foraminal Narrowing With Stenosis As Well As Adjacent Endplate MRI Modic Signal, Radiologic And CT Sclerotic And Erosive Changes 13) L2-L3, L3-L4 And L4-L5 Severe Degeneration Of Lumbar Intervertebral Discs Associated With L2-L3 Disk Space Collapse, Bilateral Vertical Foraminal Narrowing And Stenosis And Adjacent Endplate MRI Modic Signal, Radiologic And CT Sclerotic And Mild Erosive Changes As Well As L3-L4 And L4-L5 Postoperative Changes Consistent With Mature Interbody Fusion 14) Bilateral Lower Extremity Upper And Mid-Lumbar Distribution Resting, Positional And Claudicating Radiculopathy (Intermittent Anterior Thigh Pain And Iliopsoas Motor Deficit As Well As Associated Mild Ambulatory Dysfunction) (* = Refer Here And Elsewhere In This Diagnosis List And Document As Well As To Other Hospital And Office Documents For Additional Detailed Radiculopathy Symptom And Finding Description) 15) Bilateral Lower Extremity Proximal Lower Lumbar And Lumbosacral Distribution Resting, Positional And Claudicating Radiculopathy (Intermittent Radiating Buttock Pain) (* = Refer Here And To Other Sources Listed Above For Additional Details Regarding Radiculopathy) 16) L5-S1 Left-Sided Intraforaminal Displacement Of Degenerative Lumbosacral Intervertebral Disk 17) L2-L3 Right-Sided Broad Based Lateral Recess, Intraforaminal And Far Lateral Displacement Of Degenerative Lumbar Intervertebral Disk 18) L5-S1 Lumbosacral Spondylosis 19) L2-L3, L3-L4 And L4-L5 Lumbar Spondylosis 20) L2-L3, L3-L4, L4-L5 And L5-S1 Bilateral Hypertrophic Degenerative Lumbar Facet Arthritis 21) L2-L3, L3-L4, L4-L5 And L5-S1 Bilateral Degenerative Lumbar Facet Osteoarthritis 22) L2-L3 And L5-S1 Bilateral Degenerative Lumbar Facet Instability 23) L2-L3, L3-L4, L4-L5 And L5-S1 Bilateral Multizone (L2-L3 And L5-S1 Degenerative Dorsal, Dorsolateral And Lateral As Well As L3-L4 And L4-L5 Postoperative Circumferential) Likely Adherent, Tethering And Potentially Neurocompressive Or Circumferentially Neuroconstricting Degenerative And Postoperative Lumbar And Lumbosacral Epidural Fibrosis 24) L3-L4 And L4-L5 Postprocedural Arthrodesis Status 25) L3-L5 Retained Hardware 26) Lumbosacral Regional Spinal Degenerative Arthritis (Spondylopathy) 27) Diffuse Lumbar Regional Spinal Degenerative Arthritis (Spondylopathy) Comorbid Diagnoses: 28) History Of MRSA Pneumonia 29) Type II Diabetes Without Known Or Reported Specifically Associated Conditions Or Complications 30) Moderate Obesity (Based On World Health Organization Body Mass Index Criteria With Patient BMI = 37.6) 31) Very High Body Mass Index (BMI = 37.6) Potentially Adversely Affecting Acute And Detention Lumbar And Lumbosacral Spine General And Surgical Orthopaedic Treatment As Well As Overall Health Outcomes 32) Hypertension 33) Hypercholesterolemia Post-Operative Diagnosis: Same as preoperative diagnosis list with the addition of: Intraoperative Surgically Treated Diagnoses: 1) L2-L3 And L5-S1 Exacerbated Intraoperative (Post-Decompression And Pre- Instrumentation)Significant Anterior And Posterior Column Destabilization Secondary To Required Extensive Osseous Decompression Above And Beyond Preoperatively Documented Segmental Instability Significant Associated Translational Instability With Axial Disk Space Collapse Associated With Transpedicular Foraminal Narrowing Requiring Acute Intraoperative Instrumentation For Stabilization, Transpedicular Foraminal Distraction And Height Congregation As Well As For Optimization Of Fusion Potential And Overall Outcome 2) L3-L4 Extreme Dense Adherent, Compressive And Constricting Circumferential Epidrual Fibrosis (Well Beyond Two Standard Deviations Above The Mean Even For Revision Procedure) Requiring Separate And Distinct Neurolysis To Safely Decompress And Protect Neural Elements As Well As To Allow Completion Of The Remainder Of The Necessary Components Of The Procedure Intraoperative And Postoperative Diagnoses Relevant To Postoperative Care: 1) L2-L3 And L5-S1 Potential Increased Postoperative (Post-Osteotomy, Post- Decompression, Post-Instrumentation And Pre-Arthrodesis) Microinstability Under Cyclic Loading Even With Multicolumn Instrumentation Requiring Early Postoperative Activity Limitation And Circumferential Buttressed Lumbar Compression Orthosis Use For Optimized Symptom Control, Stabilization, Fusion, Postoperative Function And Overall Outcome Particularly Given Preoperative Diagnosis Of Osteoporosis 2) Expected Acute Postoperative Lumbar And Lumbosacral Region Pain Requiring Postoperative Intravenous Narcotic Analgesic Pain Medication And Inpatient Nursing Observation Following Complex And Extensive But Uncomplicated Revision Multilevel Lumbar And Lumbosacral Decompression And Revision Multicolumn Instrumented Fusion With Reduction Of Spondylolisthesis 3) Expected Acute Postoperative Lumbar And Lumbosacral Region Muscular Spasm Requiring Postoperative Muscle Relaxant Medication And Inpatient Nursing Observation Following Procedure Documented Above 4) L2 New; L2-L3, L3, L3-L4, L4 And L4-L5 Revision; L5 And L5-S1 New Acute Lumbar And Lumbosacral Region Dorsal, Dorsolateral, Lateral And Ventrolateral Osseous And Soft Tissue Stenosis Decompression, Epidural Neurolysis As Well As L2-L3 Right And L5-S1 Left Decompressive Discectomy Postprocedural Status 5) L2-L3 And L5-S1 New; L3-L4 And L4-L5 Revision Lumbar And Lumbosacral Spine Region Early Postprocedural Instrumented Arthrodesis Status 6) Potential For Impaired Bone Healing Relative To The Standard Healing Likelihood And Timecourse For The Extent (Number Of Levels And Overall Complexity) Of Arthrodesis Performed (Due To The Multicolumn, Multilevel, Revision Nature Of The Patient's Procedure, The Need For Partial Augmentation Of Fusion Mass With Allograft Substitute Osteopromotive Material, Multiple Active And Labile Medical Conditions And Medications With Potential Adverse Bone Healing Effects As Well As Patient History Of Osteoporosis And Diffuse Erosive Arthritic Processes) All Of Which Meet Criteria For The Use Of An External Pulsed Electromagnetic Field Stimulation Device To Likely Optimize And Potentially Accelerate Osseous Fusion Formation Estimated Blood Loss: 1200 cc estimated blood loss with 575 cc cell saver return Surgeon/Windows Laptop Technician: UMER MURRELL MD - Primary Consulting Orthopaedic Co-Surgeon ERIC DEMPSEY MD - Primary Admitting Neurological Co-Surgeon Surgical Providers: Regarding Orthopaedic Spine Portion Of Procedure Dictated Here: Umer Murrell M.D. - Orthopaedic Surgeon (Co-Surgeon/Primary Surgeon) Eric Dempsey M.D. - Neurosurgeon (Co-Surgeon/Windows Laptop Technician Surgeon) See Neurosurgical Operative Report Regarding Surgical Provider Designation For Neurosurgical Spine Portion Of Procedure Anesthesia: general endotracheal tube Monitors: Standard general anesthesia and other perioperative monitoring was performed per anesthesia protocols. Standard Intraoperative EMG, SSEP and MEP electrophysiological monitoring was performed per protocol (NeuroAlert). Refer to anesthesia and intraoperative electrophysiological monitoring records for details. IV Fluids: Standard anesthesia perioperative fluid management was performed without requirement for additional or emergent fluid resuscitation. Refer to anesthesia and cell-saver records for details. Implants: Implants Removed (And Sent To Pathology For Analysis Per Hospital Protocol): Posterolateral Transvertebral Pedicle Dkfzd-[id number]-[id number] Instrumentation Construct Implants Removed: [place] Crosslink x 1 [place] Trans-Segmental Connecting Rods x 2 [place] F[place] Pedicle Screws x 4 Graft Removed: None Implants Placed: Posterolateral Lumbar And Lumbosacral [place] Region Interbody Implants: OSSIANIX FUSE Titanium Posterolateral Interbody Cage Implants: 1 x 11 mm Height x 9 mm Width x 24.5 mm Depth x 8 Degree Lordosis On The Left At L5-S1 1 x 10 mm Height x 9 mm Width x 24.5 mm Depth x 4 Degree Lordosis On The Right At L2-L3 Posterobilateral Lumbosacral Region Transpedicular Transvertebral Implants: Alektoa ATS System Posterobilateral Transpedicular Transvertebral Towlczu-Ixyxe-Kap\\ Construct: 2 x 6.5 mm Diameter x 40 mm Length Dual Thread Pitch Pedicle Screws One On Each Side At S1 5 x 6.5 mm Diameter x 45 mm Length Dual Thread Pitch Pedicle Screws One On Each Side At L5 And L4 And On The Right At L3 2 x 5.5 mm Diameter x 50 mm Length Dual Thread Pitch Pedicle Screws One On The Left At L3 And One On The Right At L2 1 x 5.5 mm Diameter x 45 mm Length Dual Thread Pitch Pedicle Screw On The Left At L2 1 x 4.75 mm Diameter x 90 mm Length Pratts-Chrome Richard On The Right From L2-S1 1 x 4.75 mm Diameter x 100 mm Length Pratts-Chrome Richard On The Left From L2-S1 Graft Placed: Autograft Placed: Morselized Locally Harvested Autograft Harvested From: Resection Of L2 And L5 Spinous Processes L2 And L5 New And L3 And L4 Revision Bilateral Hemilaminectomies L2-L3 And L5-S1 New And L3-L4 And L4-L5 Revision Facetectomies And Foraminotomies Placed At L2-L3 And L5-S1 In Anterior Column Filling Central Chamber Of Each Interbody Cage In Disk Space Anterior To And Surrounding Each Interbody Cage Placed At L2-L3, L3-L4, L4-L5 And L5-S1 In Posterobilateral Columns In Bilateral Intertransverse Posterolateral Spaces Allograft Placed: Nonstructural Processed Allograft Substitute Osteopromotive Material Placed: Medtronic Sofamor [place] Edelmira DBF 1 x 6 cc Container Placed In Intervertebral Disk Spaces Anterior To Cage At L2-L3 And L5-S1 2 x 3 cc Containers Placed In The Posterolateral Intertransverse Spaces Bilaterally From L2-S1 MedRazorsight SpinalGraft Flixpress Progenix Plus 2 x 10 cc Syringe Containers In The Posterolateral Intertransverse Spaces Bilaterally From L2 To S1 Urine Output: Refer to anesthesia records for details. Drains: Large bore (15 Kinyarwanda) subfascial CLARIBEL drains x 2 to medium bulb suction reservoir. Fenestrated portions of drain tubes placed in each posterolateral intertransverse space (lateral gutter) with unfenestrated portion through deep muscle, fascia, subcutaneous tissue, and skin of bilateral superolateral aspect of surgical site [place] without suture fixation. Specimens: Removed implants from prior instrumented fusion surgery as well as L2-L3 And L5- S1 lumbar disk fragments sent to pathology for analysis per hospital protocol Complications: None Operative/Procedure Note Note: Preoperative Holding Area Assessment/Preparation: The patient was evaluated in the preoperative holding area prior to the administration of any sedating medications and shortly prior to transporting her to the operating room for surgery. No significant clinical changes or contraindications to the scheduled surgical procedure were documented compared to the stable longstanding preoperative baseline of mechanical axial and radicular lumbar painful symptoms and reported exacerbation with provocative activity or testing without gross physiologic examination deficit which was documented on primary orthopaedic office, neurosurgical consultation and medical clearance general, neurovascular and musculoskeletal evaluations. Specifically, she continues to report her original presenting preoperative resting, activity limiting and claudicating aching and spasmodic axial lower back pain and bilateral anterior thigh radiation. These symptoms are unchanged from her pre- admission office evaluation. As in the office, she was otherwise grossly neurovascularly and musculoskeletally intact in both lower extremities based on standard detailed but directed immediate preoperative motor and sensory testing with no new findings or suggestion that her surgical risk profile might need to be reassessed compared to that reviewed during the recent consent process. The patient showed no obvious signs of respiratory obstruction, restriction, other abnormality or distress that might be associated with her pulmonary history which was cleared preoperatively and appeared to be adequately controlled. The surgical plan and site were confirmed with the patient and preoperative paperwork was finalized. The region of the intended surgical site was cleansed, prepped and marked per protocol. The surgeons, anesthesia care team members, and operating room staff verified the patient identity, surgical procedure, and operative site as well as other clinical details with the patient in an initial documented preoperative confirmation (awake time out) prior to the administration of significant sedation or anesthesia. The patient confirmed that she had discontinued her anticoagulant medication at least 7 days prior to surgery. Prior to receiving any preoperative medications, she also confirmed her NPO status since midnight. The patient has a remote history of culture documented pulmonary MRSA infection several years ago and so, although she has not had any recurrence of either pneumonia or MRSA, contact precautions were followed throughout the preoperative process and will be continued throughout her hospitalization per hospital protocol. The patient has very poor peripheral venous access and, at the recommendation of both the [facility] IV team and the Anesthesia service, arrangement was made for placement of a PICC line preoperatively. This was performed by interventional radiology in the right antecubital region on the day prior to surgery and confirmed to be in optimal position radiologically. Achieving access preoperatively also allowed the patient to have a contrast MRI that same day which was reviewed and will be available for reference intraoperatively. The site evidently required dressing change following placement. The site currently appears clean and the dressing is intact. There is no erythema, site abnormality or more proximal tenderness in the right upper extremity. Surgical Procedure: Dr. Murrell and Dr. Dempsey were both present for and participated equally as co-surgeons in all clinically significant phases of the surgical procedure documented below as well as for all critical intraoperative and perioperative decisions and interventions. The set-up, positioning, hardware removal, exploration and mechanical testing of previous fusion, posterolateral column osteotomy, reduction of spondylolisthesis, frameless CT-referenced stereotactic analysis and guidance, disk space and posterobilateral osseous element fusion surface preparation and decortication, stabilization with implantation of multicolumn (interbody cage and posterobilateral sonnkrv-dzmjc-spp construct) instrumentation, multicolumn (interbody and posterobilateral intertransverse- process space) arthrodesis and closure portions of the procedure are described in greatest detail in this operative report. Refer to Dr. Garza Neurosurgical operative report for additional details particularly regarding the electrophysiological monitoring, exposure, combined revision and new decompressive laminar and posterobilateral osseoligamentous resections ( facetectomies and foraminotomies), distinct procedural epidural neurolysis where necessary and decompressive intraforaminal discectomies as well as complete neural element decompression and mobilization (as necessary for instrumentation and fusion) portions of the procedure. The patient's body habitus and obesity (based on World Health Organization criteria with BMI = 37.6) with very deep soft tissue layers increased the complexity, duration, difficulty and risk of the procedure and intraoperative care as well as all perioperative (both pre-operative and post-operative as well as both outpatient and inpatient) care. This increase was quite significant but estimated to be less than 50% and slightly less than two standard deviations from the mean in all categories even for similar clinical presentations in the more complex range for this type of procedure. This additional care, although nearly a statistically significant increase, was not felt to yet warrant distinct and separate procedural services as designated by modifier coding but may require additional separately designated services later depending on her postoperative course. Set-Up/Positioning/Exposure - The patient was brought to the operating room in stable condition and underwent uncomplicated induction of general anesthesia, intubation, and placement of all appropriate monitors, lines, tubes and catheters without difficulty. 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 This antibiotic dose was repeated after eight hours at the end of the procedure per standard operative protocols. The patient was positioned prone on the Leo operating table in standard fashion for a lower lumbar discectomy taking care to protect and stabilize the spine during transfer, avoid positions of nerve stretch, pad all pressure points, and support the head without any pressure on the eyes using a foam head rest and head-holding frame. The patient 's obese body habitus required several areas of additional foam padding to minimize pressure both at the chest, iliac crest and thigh supports as well as between these supports particularly at the lower chest wall and abdomen where there was some unavoidable contact with the frame of the Leo table. This additional padding was successful in minimizing pressure in these areas as much as was possible in this circumstance. Electrophysiological monitoring electrodes were applied per standard monitoring protocol. The arms were abducted less than 90 degrees at the shoulders, flexed less than 90 degrees at the elbows and supported on well-padded arm-boards with additional foam padding from the axillary regions to the hands. All pressure points were either fully padded or suspended without any contact at all between pads. Baseline preoperative electrophysiological monitoring readings were obtained and no gross abnormalities were noted with no asymmetry or other finding to suggest occult compression or neurophysiologic deficit. A cross-table lateral fluoroscopic image was obtained with a skin marker in place to determine the optimal levels for incision, to define the rostral and caudal extension of dissection both above and below her previous incision, to document optimized intraoperative lumbar alignment, and to confirm acceptable radiologic visualization as well as definitive numerical identification of all intended operative levels with sufficient detail up to the upper lumbar and down to the lumbosacral junction regions throughout the procedure. This image also documented the lack of positional reduction of the L5-S1 Grade II spondylolisthesis confirming the need for separate and distinct mechanical reduction of this subluxation throughout the instrumentation and stabilization portion of the procedure so as to restore alignment and sagittal balance as close to normal as possible which is required to optimize long-term outcome and minimize further regional degenerative processes. Fortunately, the subluxation at L2-L3 was minimal, less dynamic, less unstable, aligned well with standard surgical positioning and did not appear to require specific mechanical reduction beyond that provided by standard interspace distraction and cage implantation as described in the instrumentation section below. The approach, exposure, hemostasis and retractor placement are dictated in greatest detail by Dr. Dempsey in his Neurosurgery operative report. The exploration of previous fusion and mechanical testing at the L3-L4 and L4-L5 levels as well as the L3-L4 posterolateral fusion mass osteotomy required for safe revision decompression at that level is detailed in this operative report. The new and revision laminar, posterobilateral osseous and soft tissue resection , extensive epidural neurolysis, decompressive discectomy, osteophytectomy and final central canal, lateral recess and foraminal neural element decompression portions of the procedure are then also described in greatest detail in the Neurosurgery operative report. Refer to that document for additional details regarding the primary neurosurgical portions of the procedure which are only briefly summarized here. All remaining post-decompression procedural services are described most completely in this operative report as detailed in the final sections below regarding the spondylolisthesis reduction, instrumented arthrodesis and closure portions of the procedure. The surgical field was prepped and draped using standard sterile technique with Duraprep, sterile towels, an Ioband incise drape and an edge-adhesive rectangular surgical field drape. Prior to beginning the procedure, the surgeons, anesthesia care team, and operating room staff again documented the patient identity, surgical procedure, and operative site in a final confirmation ("final time out") per standard hospital and [facility] protocol. In brief summary of the initial primarily neurosurgical portions of the procedure, after sterile prep and drape as described above, the patient's previous midline surgical site incision was mapped based on visualization and palpation localization of surface landmarks (bilateral iliac crests and spinous process tips), marked with a sterile surgical marking pen and infiltrated with 0.5% Marcaine local anesthetic with epinephrine prior to making a new incision using a #10 scalpel blade which extended the old incision longitudinally from the palpated and radiologically localized superior tip of the L1 spinous process to the inferior tip of the S1 spinous process overlying the intended L2-S1 operative vertebral levels. Hemostasis was achieved using Bovie and Bipolar electrocautery as well as Aquamantys bipolar radiofrequency hydrothermal hemostatic vascular cautery beginning with the incision and continuing throughout the procedure with settings appropriate to each progressive level. The lumbosacral fascia was divided over both sides of the fluoroscopically localized L1-S1 midline structures and L3-L5 posterolateral fixation hardware using the Bovie electrocautery which was also used to maintain hemostasis throughout the exposure. Care was taken to preserve the midline interspinous ligamentous tissue as much as possible at all newly dissected levels until these levels had been confirmed to be the intended operative levels by fluoroscopic localization. Care was also taken to avoid electrocautery dissection below the fascial level until intact osseous elements had been definitively identified to provide a protected periosteal plane for dissection outside of the previous laminectomy defect. The dissection was then carried down both side of the spinous processes and intact palpated laminae above and below the previous midline surgical dissection (presumed to be the L2 and L5 levels by palpation) down to the medial laminar margin and then extended laterally to expose the corresponding laminae, the adjacent inferior facet complex for each level and both the upper and lower extent of the previous hardware at L3 and L5 respectively. The laminar edges and interlaminar spaces were dissected using straight and curved curettes taking care to dissect in a subperiosteal plane along the laminar bone and avoid early dissection into the previously operated interlaminar zone and laminotomy site. With the edges of the previous laminectomy identified and defined the dissection was continued out to the medial margin of the L2-L3 and L5-S1 facet capsules which were preserved initially. The edge of the previous laminectomy was identified and dissection carried along its superficial margin taking care to avoid revision dissection into the previous laminectomy defect until the entire laminectomy area had been carefully cleared of fibrous tissue and defined. This allowed optimized neurolysis which in turn allowed revision decompression into the canal. With the previous operative site identified and cleared of extraspinal postoperative fibrous tissue from her previous surgery, careful sublaminar dissection was carried beneath the previously unoperated upper lamina which was marked with a radioopaque instrument and confirmed to be the intended operative level by fluoroscopic imaging. Intraoperative findings of multilevel lumbar degenerative disk disease and spondylolisthesis were unchanged from the preoperative and earlier intraoperative radiologic studies and no obvious interval change or additional abnormality was noted. The L5-S1 spondylolisthesis was still sufficiently subluxed that a separate reduction procedure was indicated likley even to allow and certainly to optimize alignment for fixation and long-term healing. Once the previous laminectomy region was fully circumscribed with the new operative laminar level confirmed and before neurolysis and revision decompression was initiated, the posterolateral dissection was extended over the facet complexes, down the lateral faceteal wall and along the dorsal surfaces of the L2 transverse processes, L3-L5 posterolateral fusions masses and sacral ala bilaterally out to their most lateral extent to fully expose and prepare the posterolateral gutter for osteotomy and revision fusion. This area was packed with a moist counted sponge and attention was returned to the canal region where the level was confirmed prior to beginning the revision decompression. The supralaminar fibrotic tissue from the patients prior surgery made dissection difficult, as had been discussed with her preoperatively, and was associated with meningeal tethering in the previous laminectomy site. Debulking of this superficial fibrotic tissue with direct dissection in the epidural plane was required to safely access the laminar edges and perform revision laminectomy. This epidural dissection was well beyond (more than two standard deviations above the mean compared to) the normal dissection required even for revision decompression and discectomy in duration and complexity particularly at the L3 laminar and L3-L4 interlaminar levels adjacent to her new L2-L3 level of maximal stenosis and was required to safely mobilize the thecal sac from the edges of the previous laminectomy. The thecal sac could not have been safely mobilized from the undersurface of the lamina and the remainder of the critical decompressive portions of the procedure could not have been completed without this additional neurolysis procedural service. Superior and inferior deep Gelpi retractors were placed with the deep retractor ends inserted beneath the deep muscular layer just superficial to the fusion masses and transverse processes in the posterolateral spaces so as to provide optimal retraction and visualization. The depth of the patient's soft tissue planes made retraction, visualization, dissection, neural element retraction and discectomy considerably more difficult. The L3-L5 bilateral hardware construct was then debrided of overlying soft tissue as well as bone where necessary and removed using standard techniques with a universal removal instrument set. The crosslink, set screws and rods were removed and a distractor was used between each screw head to perform mechanical testing to assess the stability of the bone-screw interface at each screw site and the integrity of the arthrodesis at each level on each side. Distraction at each interval confirmed solid fusion at each level on both sides. There was no evidence of gross motion of any screw within its pedicle screw hole except for the L5 screw on the right which had some obvious toggling but no gross erosive changes. Given that the fusion appeared solid throughout the previous intended arthrodesis segment this toggling likely represented either asymptomatic loosening or a small minority of the patient's mechanical pain in this case. The screws were then removed with fairly significant counterclockwise torque application required in each case for removal (even on the right at L5) confirming that none of the screws were grossly loose or likley a significant pain generator. With the screws removed, the bilateral fusion masses were debrided of overlying soft tissue and visualy inspected. The fusion masses were confirmed to be fully bridging the arthrodesis levels, confluent, corticated and mature without any detectable clefts, defects or osteopenic areas by visual and palpation assessment. All removed hardware was sent to pathology for documentation per hospital protocol. Hemostasis was achieved with Bovie electrocautery, Gelfoam and bone wax where necessary particularly in the previous screw holes. FloSeal (5 cc) was used to assist with hemostasis throughout this initial phase of dissection particularly in previously operated areas. Osteotomy/Laminectomy/Discectomy/Neural Element Decompression - The lateral margin of the pars interarticularis of L2 was identified bilaterally so as to insure that the hemilaminectomies did not approach, thin or destabilize this region. The L2 spinous process was debrided of periosteal soft tissue and attached interspinous ligament, resected en bloc at its base and morselized for later reimplantation as local autograft. Bilateral hemilaminectomies were performed by piecemeal resection of the laminar bone using Kerrison rongeurs after dissecting under the leading edge with a curved curette to free any underlying adhesions. This sublaminar dissection was made possible bilaterally by the debulking epidural neurolysis described above. Where possible the ligamentum flavum was left in place during the osseous decompression as a protective layer and then later removed to complete the dorsal central canal and dorsolateral recess decompression where the ligament contributed significantly to the compression. Once the canal could be safely accessed and decompressed at the newly dissected L2 level on both sides, attention was turned to the adherent fibrotic tissue at the superior margin of the L3 level which was still tethering the thecal sac and precluding safe dissection into the lateral recesses for decompression at that level or into the ventral canal for access to the disk space at the L2-L3 level. Working dorsally it was found that the L3 lamina had partially reformed with recurrent compression and significant tethering of the neural elements bilaterally in this region. Complex epidural neurolysis significantly greater than usual (well more than two standard deviations above the mean) even for revision cases was necessary first in the dorsal midline and then extending into the dorsolateral and lateral recess zones bilaterally using very delicate dissection with a combination of curved curettes and fine blunt or ball tip nerve hooks to slowly free the tethered dura from the dense adhesions and to decompress several areas of compressing and even circumferentially constricting fibrotic tissue. This tissue was much more dense, adherent and compressive than usual due to the combined postoperative, inflammatory, degenerative and hypermobility origin of the scar. Once a clear plane was developed the revision laminectomy and partial medial facetectomy could be performed using Kerrison rongeurs. Even this was not sufficient to gain access to the lateral canal for safe mobilization of the neural elements so as to allow for L2-L3 discectomy and instrumentation. Therefore, an osteotomy of the right sided L3-L4 fusion mass was necessary to perform a complete right L3-L4 facetectomy and medial partial unroofing foraminotomy to access a clear epidural plane in the lateral canal at that level. This allowed sufficient untethering of the dorsolateral, lateral and ventrolateral thecal sac to the level of the L3 pedicle so as to allow safe mobilization and retraction of the traversing L3 root and thecal sac. Even then some additional ventral epidural neurolysis was required using an Madelyn curette so as to free the ventral dura from the L2-L3 disk space, the L3 dorsal vertebral body wall and even the upper L3-L4 disk margin so that there was no tension on the neural elements during discectomy and interbody instrumentation of the L2-L3 interspace. Without this extensive and distinct epidural neurolysis procedural service, the remainder of the planned and necessary procedure could not have been completed. The severe stenosis at both the L2-L3 and relaminized L3-L4 region was associated with hyperemia of the nerve root meninges, inflammation and irritation consistent with the severity, chronicity and poor response to conservative measures of the patient's static and claudicating symptoms and deficits confirming the indications for surgery. All of these findings also suggested that improvement would have been unlikely with further conservative management and without surgical intervention. Attention was then turned to the L5 level which was resected using standard technique by piecemeal removal with a Kerrison rongeur after dissecting under the leading edge with a curved curette to remove any adhesions. Since the inferior aspect of the L5 laminar level had not been previously operated, this area did not have evidence of significant epidural fibrosis. As the laminectomy dissection approached the upper margin of the L5 lamina more adherent and tethering fibrotic tisue was noted, however the adhesions were not as dense or as difficult to dissect at the L4-L5 interlaminar and L4 laminar levels as was described above for L3-L4 and L3. As at L3 there was partial relaminization at L4 however there was less hypertrophic bone growth and inflammatory response in the lateral recesses at L4-L5 compared to L3-L4. At L4 and L4-L5 there was still considerable requirement for detailed and delicate epidural neurolysis well above average for even revision procedures but not beyond two standard deviations above the mean as had been the case at L3 and L3-L4. Therefore epidural neurolysis was felt to be more consistent with the normally included degree of dissection associated with revision decompression at this level whereas neurolysis required a prolonged and distinct complex additional procedural service at the upper level. Once the neural elements were untethered within the lateral recess, a partial medial facetectomy was performed on the right and a subtotal facetectomy was performed on the left to provide optimal access to the left L5-S1 disk space for posterolateral-transforaminal discectomy and instrumentation. With the decompression, epidural neurolysis and required neural element mobilization completed from L2 to S1, attention was turned to the discectomy and instrumented interbody fusion portion of the procedure. All resected osteotomy, laminar and faceteal decompression bone along with the spinous processes resected initially were cleaned of soft tissue, morselized, and saved in sterile saline for later reimplantation as autograft. Initial discectomy and anterior column stabilization was performed at the L5-S1 level. A Barrington 4 was used to dissect down the superomedial wall of the left S1 pedicle to the floor of the canal in the plane previously cleared by epidural neurolysis as described above. Some additional ventral neurolysis and untethering of the thecal sac was required using an Madelyn curette so as to adequately and safely medially retract the neural elements. During dissection and nerve root mobilization a focal contained disk herniation fragment was identified elevating the fibrotic tissue in the ventral lateral recess to form an area of unidirectional compression and elevation of the exiting L5 root in the entry zone of the foramen. With the perineural dissection, neurolysis and exposure of the contained disk herniation fragment complete, the traversing nerve root and thecal sac could be gently and safely retracted with a Love nerve root retractor so as to expose the disk space while protecting the neural elements. This exposure allowed safe rectangular annulectomy using a #11 scalpal blade followed by complete decompressive discectomy of the primary intraforaminal herniated fragment and any remaining loose or nonviable intradiscal fragments within the disk space and in the lateral subforaminal zone using standard technique with pituitary rongeurs. Epidural hemostasis was achieved using Bipolar electrocautery and gentle packing of the epidural space with small volume of Thrombin soaked Gelfoam held with Patties which also provided some medial retraction of the neural elements for optimal exposure of the disk space. All resected disk material was sent to pathology for analysis per hospital protocol. Before proceding with the decorticating discectomy and fusion, the neural element retraction was released and the decompression was again checked bilaterally to insure clear passage by a nerve hook and [place] instrument dorsal and ventral to the nerve root within the foramen to the maximal depth palpable with those instruments. The ventral canal was also checked to insure that there were no entraped, migrated or sequestered disk material and that there was no residual unidirectional impingement from the ventral aspect of the canal. On this final check there was no evidence of residual compression from the preoperatively disgnosed stenosis, epidural fibrosis or disk herniation impingement. Arthrodesis/Instrumentation - The fusion portion of the procedure including instrumentation and grafting is dictated in greatest detail in this operative report. Arthrodesis was first performed at the L5-S1 level. With the left L5-S1 disk space fully exposed and the neural elements retracted and protected with a Love nerve root retractor, the disk space was prepared and optimized for interbody arthrodesis by performing a subtotal decorticating discectomy (distinct from the decompressive discectomy required and previously performed for neural element decompression to address the patient's significant radicular symptoms and deficits as detailed above). This was accomplished using standard technique starting with straight and angled pituitary rongeurs. Chondral endplate resection down to punctate cortical bleeding bone was then performed using sequential and alternating rotating distracting and decorticating aaron. Endplate decortication was finalized using multiple straight and angled serrated curettes. As expected based on preoperative imaging, the disk space was extremely degenerative with minimal disk space and near [id number] contact palpable throughout the width and depth of the space. Although the degree of degeneration makes it very likely that the anterior annulus is incompetent, there were no defects detected on gentle palpation at the anterior and anterolateral disk space margins using the decorticating curettes noted above suggesting a fairly well preserved and competent annulus or possibly the presence of dense fibrotic scarring which should contain the graft within the disk space. Care was still taken to avoid any projection of instruments, implants or graft material beyond the annular disk margin in any direction. The interbody distractors were able to achieve good disk space and foraminal height baptism but did not significantly reduce the spondyolisthesis which required a distinct procedure for maintenance of a manual intraoperative reduction during interbody implant placement so that improved sagittal alignment could be maintained. Although this reduction meets criteria for a deformity correction, it was felt that, in this case, the less specialized and complex reduction of spondylolisthesis procedural service designation would be most appropriate since the alignment correction was primarily in a single plane and the patient's baseline functional limitations (above and beyond those related to her spinal condition) make the functional impact of this correction less pronounced to her overall outcome than it owuld be in a healthier individual ( although still critical to minimizing her risk of accelerated degenerative processes in the future). Hemostasis was confirmed and the interspace and surgical site were thoroughly irrigated prior to placement of the anterior column interbody implant and central morselized autograft. The L5-S1 disk space was templated using standard sequential trialing technique ultimately documenting optimal fit and soft tissue tension with a standard trial of 11 mm height, 24.5 mm depth, 9 mm width and 4 degrees of lordosis. Fluoroscopic anterior-posterior and lateral images were obtained and documented optimal positioning, disk space and foraminal height baptism, fixation of the manually reduced position of spondylolisthesis previously achieved by manipulation and maintained throughout the implantation of instrumentation, adequate lordosis baptism with good endplate support and distraction without endplate compromise. It was felt that additional lordosis would be beneficial in this circumstance at the lumbosacral junction level and would not likely significantly increase the risk of endplate compromise and so a final implant was chosen with all dimensions identical in size to that of the trial with the exception of the lordosis which was selected to be increased to 8 degrees compared to the trial. Approximately 5 cc of autograft and 2 cc of a 6 cc container of Vouchr Grayson Demineralized Bone Fiber (DBF) allograft substitute osteopromotive material was gently compressed into the anterior margin of the disk space and across the midline anterior and contralateral to the intended position of the interbody cage taking care to avoid projection of graft beyond the confines of the grossly degenerative disk space and incompetent annulus. Care was also taken to completely fill the height of the disk space with graft in these peripheral zones while avoiding excessive packing of graft in the intended path of the cage so that the graft would not impede optimal placement of the cage or result in projection of graft outside of the disk space during cage impaction. The 11 mm height x 9 mm width x 24.5 mm depth x 8 degree lordosis FUSE Titanium rotating lordotic implant central chamber was packed with morselized autograft such that graft was projecting slightly beyond the height of the implant so as to provide optimal graft-endplate contact after central disk space placement of the graft-filled implant and rotation into lordotic alignment. The above prepared interbody implant was then gently impacted into the interspace in the flat horizontal position until it was recessed well beyond the posterior vertebral body wall and endplate edge on lateral fluoroscopic view. The cage was then further impacted until fluoroscopic lateral images documented the final position to be nearly to the anterior endplate edge of both adjacent vertebral bodies so as to provide optimal anterior distraction and final lordosis. The cage was then rotated 90 degrees into final vertical lordotic position per the implant design. With the implant in final position, the spondylolisthesis documented preoperatively was maintained in a partially reduced position. Manual manipulation during implantation was required to achieve this result constituting a distinct spondylolisthesis reduction maneuver. This reduction was sufficient to noticably improve spinal alignment, mechanics and opposing endplate overlapping surface area for fusion. Since the spondylolisthesis was the only deformity present, no other deformity reduction in any other plane was necessary in this case. Final fluoroscopic views confirmed optimal cage position with partial baptism of disk space and foraminal height, partial reduction of anterolisthesis, complete control of dynamic instability at that level and partial baptism of segmental lordosis all of which were felt to be adequate to optimize the patient's outcome. Once the interbody FUSE implant was in optimal position, excellent interference fit was documented with no motion visualized or palpated when gentle dorsally directed ("pull-out") force was applied to the cage using the captured impaction handle. The impaction handle was then removed and the posterior aspect of the cage was both visually and fluoroscopically confirmed to be recessed by several millimeters within the disk space well below the edge of both endplates. The Love nerve root retractor was removed and the overlying traversing neural elements were allowed to return to their normal resting positions with no encroachment, contact or even close proximity noted to the interbody cage. No significant residual epidural fibrotic tethering or compression was noted. The shoulder and axilla of each exposed root was checked to insure that there was no significant tethering in either region that might be associated with compressive acute take-off ("kinking") at the nerve exit from the thecal sac. Attention was then turned to the L2-L3 level where similar decompression and arthrodesis procedure was performed to that described for L5-S1 above. The L2- L3 right ventrolateral canal dissection, neural element mobilization and decompressive discectomy were performed after all portions of the L2-L3 ventrolateral decompression were completed as previously documented above and in greatest detail in Dr. Dempsey's neurosurgical operative report. Once the decompression had been completed (including decompressive discectomy of the documented intraforaminal herniation fragment causing deviation of the exiting nerve root correlating with clinical presentation and MRI findings) and clear passage of all neural structures was confirmed by palpation, the interbody instrumented arthrodesis portion of the procedure was performed which is described in greatest detail in this operative report. Identical interbody arthrodesis procedure was performed at L2-L3 on the right using similar technique and implant to that described above for L5-S1 on the left and with identical optimized final intraoperative assessment and results. After endplate preparation and decortication the anterior and anterolateral disk space was filled with the same volume of combined autograft and allograft material as that described for the L5-S1 level above using identical technique. Based on trial sizing, an identical type, width and depth but slightly smaller height and lordotic angle of interbody implant (10 mm height x 9 mm width x 24.5 mm depth x 4 degree lordosis FUSE Titanium rotating lordotic implant) as that described above for the L5-S1 level was selected, centrally filled with morselized local autograft, gently impacted into the L2-L3 interspace with optimal anterior position and rotated into vertical lordotic position with good interference fit and full baptism of disk space height, foraminal height and stability by radiographic and gentle mechanical testing. Once the interbody instrumentation was completed optimally at both operative levels, epidural hemostasis was carefully achieved using small pieces of Thrombin soaked Gelfoam as well as FloSeal gently packed with paddies where necessary. Attention was then turned to the posterobilateral screw-richard construct placement and stabilization. The O-Arm was not initially functioning and so pedicle screws were placed using standard posterolateral entry point landmarks and palpation of the medial pedicle wall within the canal. The four new pedicle screws were placed bilaterally at S1 and L2 using standard and identical, bilaterally symmetrical technique. At each screw site the entry point was selected using standard anatomic landmarks for normal anatomy patients without deformity. Each entry point was localized at the confluence of the base of the transverse process or sacral ala just superior and lateral to the upper flare of the pars interarticularis of that vertebral level where it meets the inferolateral margin of the facet joint above it. Once the pedicle screw entry site was localized, the outer cortex at that site was breached with an awl and a pedicle dissector was advanced through the pedicle (along a trajectory determined by palpation of the medial pedicle wall within the canal using a curved curette) and projected into the anterior third of the vertebral body taking care not to angle too closely to the upper vertebral body endplate. This defined pedicle screw path was then tapped with a 5.5 mm tap at S1 and a 4.5 mm tap at L2 following the same trajectory. Initial screw length measurement was made off the tap depth markings. The screw path was then palpated with a ball-tip probe to its base and along the obregon of the screw hole in all four quadrants with no deep or pedicle wall cortical breach detected. With the probe at the maximal depth of the screw hole , a hemostat was applied to the probe at the screw entry site level and the previous screw length estimate from the tap markings was confirmed by measuring from the clamp to the tip of the probe with a ruler. The measurements were consistent in each case and screw length was then selected on the basis of those correlated measurements. All four new screw holes were dissected, tapped, checked for breach and measured before any of the screws were placed so that bilateral decortication of the posterobilateral osseous elements could be readily performed without access being blocked or limited by implanted hardware. Prior to final screw placement, the intertransverse spaces were thoroughly irrigated with 500 cc of antibiotic irrigant and the transverse processes, sacral ala, lateral facet complexes and pars interarticularis as well as the previous L3-L5 fusion masses and superficial bone surrounding the previous screw holes were decorticated bilaterally to punctate bleeding corticocancellous bone using the [place] Oscar drill. The inner obregon of the previous screw holes were debrided of soft tissue using a straight curette taking care to preserve as much bone as possible for optimal fixation of the new screws placed at these positions. For each screw site, the entry opening and trajectory was confirmed using the ball-tip probe, the appropriate size screw was attached to the pedicle screwdriver and the screw was advanced at the previously defined entry site and trajectory with good insertional and final torque documented at each site. Rigid final fixation was also documented with no loosening evident when posteriorly directed ("pull-out") force was applied with the route driver coin machines. The route driver coin machines was then removed and the implanted screw was confirmed to be in optimal position with mobile head to allow for final richard placement and fixation. This identical technique was used for placement of all ten (6 replacement and 4 new) screws. Based on the above confirmed depth measurements, Medtronic Oceansblue Systemsa system dual thread-pitch 40 mm length by 6.5 mm diameter pedicle screws were placed bilaterally at S1, 45 mm length by 6.5 mm diameter screws were placed bilaterally at L5, L4 and on the right at L3, 50 mm length by 5.5 mm diameter screws were placed on the left at L3 and on the right at L2, and a 45 mm length by 5.5 mm diameter screw was placed on the left at L2. Each screw was tested using NIM electrical stimulation and neurophysiological monitoring. All screws were found to have extremely low conductance to exiting and traversing nerve roots well within standard and acceptable levels suggesting intact pedicle wall without cortical breach to or direct screw contact with adjacent neural structures. This confirmed the findings on intrapedicular palpation performed after tapping and prior to screw placement described above as well as visual inspection of the medial pedicle wall where accessable during final assessment of neural element decompression prior to closure described below. By this stage of the procedure, the O-Arm was operational and so navigational technique was used to confirm optimal positioning as well as to adjust placement where necessary (in this case at the left L2 site as described below). The reference grid was rigidly affixed to the long spinous process post which had in turn been rigidly secured to the S1 spinous process using the clamp designed for this purpose. The entire height and depth of this spinous process had been previously exposed via initial subperiosteal dissection (described above) and was confirmed to be stable to palpation as well as to gentle side-to- side stress application prior to use as the fixed anatomic reference point for stereotactic navigation. Any previously placed packing sponges in the latter gutters were removed and accounted for. Prior to and following each O-Arm scan the surgical site was thoroughly irrigated with approximately 150 cc of antibiotic irrigant using manual bulb mechanical pulse lavage technique, the deep Gelpi retractors were removed and an additional 150 cc of manual pulse antibiotic irrigation was used for the obregon of the surgical site. The final irrigant was left to fill the surgical opening during the O-Arm scan so as to further cleanse and hydrate the tissues as well as to optimize scan image contrast and overall quality. The O-Arm CT scan was acquired per standard protocol and the scan data was transferred to the [email or web address] station for rendering of three-dimensional navigation model. All appropriate operating room personnel precautions were followed during CT scan acquisition. The scan images were reviewed in all planes and found to be of good quality and appropriate anatomic detail for evaluation and stereotactic navigation of osseous structures. The O-Arm was opened and backed out of the room. The protective covering was removed from the operative field using proper technique to maintain surgical field sterility at all times. Deep Gelpi retractors were replaced with optimal exposure and visualization again achieved. The surgical site was again thoroughly irrigated with 150 cc of antibiotic irrigant using manual pulse lavage technique prior to proceeding with pedicle screw navigation and placement. The navigated instruments were registered to the reference frame and confirmed to be accurate within the spatial model by properly localizing anatomical landmarks with the registered instrument tips prior to proceeding with stereotactically guided pedicle screw placement. The left L2 screw was noted to be lateral in the pedicle with partial lateral wall breach remote from any of the neural elements. Although the distal end of the screw appeared well fixed within the vertebral body, it was felt that intrapedicular purchase could be improved by adjusting the screw trajectory to a more medial position within the pedicle using stereotactic guidance. The left L2 screw was removed and the pedicle hole was re-dissected and re-tapped using navigating instruments and guidance with standard stereotactic technique taking care to avoid any medial or inferior secondary breach of this fairly small diameter pedicle on repositioning. The screw was then replaced in this slightly more medial position and found to be stable with good osseous purchase and fixation in this position. Electrophysiological testing of the screw was repeated with low conductance demonstrated to the neural structures similar to results during initial testing described above (and consistent with a small superficial lateral but no oher directional pedicle wall breach). With the posterolateral osseous decortication completed and the pedicle screw instrumentation in place as described above, the posterobilateral fusion was then performed using standard technique prior to final interpedicular richard placement and fixation. The intertransverse space was then gently packed on both sides with a mixture of the remaining cleaned and morselized autograft, the remainder (2 cc) of the previously opened and three new containers of OPHTHONIX Edelmira DBF (one 6 cc and two 3 cc containers for a total of 14 cc reconstituted with several milliliters of blood per recommended protocol), and Progenix DBM (20 cc) in order from deep-medial (closely approximating the decorticated structures) to superficial-lateral. All graft material was divided equally between the two sides and distributed evenly on each side (with a majority of new graft placed at L5-S1 and L2-L3 and less added to the already solid fusion mass from L3 to L5) so that the total fusion mass volume was even across the four intended arthrodesis levels from L2-S1. Care was taken to compress graft against the posterolateral decorticated structures for optimal ingrowth while avoiding any extension of graft deep (below the intertransverse membrane) or medial (close to the decompressed canal or foraminal openings) to the intended fusion bed so as to prevent any contact or impingement on the neural elements or other unintended structures. Precontoured Medtronic Oceansblue Systemsa system 4.75 mm diameter Pratts-Chrome rods 90 and 100 mm in length were found to fit optimally without need for additional lordotic contouring. The length of both rods was checked to insure that there was only minimal extension beyond the superior or inferior screw heads with no impingement on the upper facet complex or sacral ala. The rods were placed so as to optimize baptism of lordosis with the concavity of the richard contour oriented posteriorly. Due to thespondylolisthesis at L5-S1, the heads of the L5 screws were slightly below those of the S1 level. Reduction of these screws to the rods using a ventral to dorsal reducing tool specifically designed for this purpose provided the final manipulation for reduction of the spondylolisthesis to lock this level into an adequately and significantly reduced position so as to optimize overall fusion healing, lumbar sagittal alignment and post-fusion spinal mechanics. Set screws were placed over the rods in the heads of each screw taking care not to cross-thread. Prior to final tightening all neural elements including each exposed and decompressed foraminal nerve root exit zone was confirmed to have unimpeded passage by palpation with a nerve hook and [place] dissecting instrument. The alignment and decompression was felt to be optimal with no additional in-situ correction required and so the set screws were tightened maximally and sheared off at preset torque per their design with the screw-richard interfaces fixed in their resting position (neutral mode) with no compression or distraction applied. Upon final assessment, this [id number] instrumentation combined with the anterior implants formed a rigid construct which resisted both translational and angular forces in the sagittal, coronal and axial planes by gentle intraoperative manual testing. Following posterobilateral decortication with arthrodesis graft placement and after hardware fixation but prior to final closure, each exposed foraminal opening and all neural elements including each decompressed foraminal nerve root exit zone was again checked with a Perez instrument passed above and below as well as a nerve hook passes on all sides of each decompressed nerve root and confirmed to have unimpeded passage by palpation with a nerve hook and Perez instrument. The decompression was felt to be optimal with no residual stenosis or impingement by graft or other material noted. The retractors were removed and the superficial soft tissues were checked with no evidence of pressure changes or need for debridement. Continuous electrophysiological monitoring throughout the procedure showed no significant or prolonged adverse changes at any point during the decompression, instrumentation, or at any other time during the case. Although significant, regional alignment improvement was achieved, this was felt to be a consequence of the fusion and spondylolisthesis reduction procedures and so this deformity correction was felt to be an included part of those procedural services and not designated as a separately required additional service in this case. Closure/Recovery - The surgical site was thoroughly irrigated and hemostasis was carefully achieved prior to closure. FloSeal (5 cc) was then placed in the bilateral epidural spaces to provide additional hemostasis. Several pieces of Thrombin- soaked Gelfoam were used to cover the laminectomy and unroofed foraminotomy openings and placed over the dorsal and dorsolateral surfaces of the decompressed thecal sac as well as the exiting and traversing nerve roots so as to minimize epidural fibrotic adhesions to the decompressed neural elements. 250 cc of a 500 cc vial of Vancomycin powder was divided equally between the two posterolateral gutters and spread evenly overlying the arthrodesis bone graft on each side taking care to avoid placement close to the canal or unroofed foramina. Dual large bore subfascial CLARIBEL drains were placed with one on each side in the lateral intertransverse spaces and carried out through the superior wall of each side of the surgical site using trocars. Initial counts were correct prior to closure. The deep lumbar muscular layer was reapproximated using #0 Vicryl interrupted suture technique so as to minimize open subfascial space for hematoma collection. The fascial layer was reapproximated in a [id number]-[id number] closure using #0 Vicryl interrupted, [id number] suture technique. The suprafacial tissues were thoroughly irrigated and the remaining Vancomycin powder (250 cc) was placed in the suprafascial plane prior to final superficial closure. The deep suprafascial closure was performed with #2-0 Vicryl interrupted, simple suture technique. The superficial subcutaneous layer was closed with #3-0 undyed Vicryl inverted, interrupted, simple sutures. The skin was closed using maya with the edges everted. A standard, sterile Xeroform dressing was placed, covered with folded fluff gauze 6x6s and ABD pads and held in place using Cover-Roll with good surgical site and bilateral drain site coverage. All counts were correct prior to removing the drapes. The patient was turned into the supine position on the hospital bed using careful log-roll technique, avoiding torsional stress and stabilizing the lumbar region during transfer. She was then extubated in the operating room without difficulty. Recovery Room Assessment: The patient was transported to the recovery room in stable condition where gross neurological examination showed normal function on initial recovery from anesthesia with no obvious deficits compared to her pre-operative assessments. The patient will follow the usual postoperative protocol for lower lumbar revision decompression, extensive neurolysis, spondylolisthesis reduction followed by revision and extending new multicolumn instrumented fusion with some adjustments and accommodations made to the standard protocol because of the extent and duration of her surgery, degree of preoperative functional limitation , patient's body habitus, multilevel severe degenerative changes and multiple comorbid medical conditions. Her postoperative care plan will include early mobilization, IV and then weaning to oral medication pain control, and discharge planning starting on postoperative day #1 or #2 with possible need for inpatient rehabilitation program. She will use a circumferential four-quadrant buttressed compression brace during the initial phase of healing for stability and to limit angular motion. She has difficult venous access and so the PICC line which was placed preoperatively will be maintained per protocol by the specialty nursing team postoperatively until venous access is no longer required. Lower extremity (particularly gentle hip and knee) motion is encouraged to promote longitudinal nerve motion and minimize fibrotic neural tethering during the fibrous consolidation and motion segment stabilization healing phase. She is an excellent candidate for an inpatient rehabilitation program given her limited functional level, complex spinal condition and multiple medical problems. She has already made some preoperative preparations for rehabilitation program transfer and discharge planning will assist in finalizing these arrangements starting on POD #2 or #3. Once she is home, outpatient rehabilitation program will be arranged through the office to begin slowly but progressively at approximately 6 weeks after surgery assuming standard and uncomplicated postoperative course and following clearance at initial postoperative follow-up assessment. Given the revision nature of her lumbar procedure, use of allograft substitute osteopromotive material to augment arthrodesis graft and her history of osteoporosis, a spinal fusion osteogenesis stimulator is indicated and will be ordered, applied and followed through the office. Discharge Disposition: PACU (-> ICU) CC: Dania HARRIS,Umer Rose; Ke HARRIS,Eric Lang
[2017-10-11 19:21] LABS: ABSOLUTE BASOPHIL COUNT 0 /CUMM (0.0-0.2); ABSOLUTE EOSINOPHIL COUNT 0.1 /CUMM (0.0-0.7); ABSOLUTE GRANULOCYTE CT 10.4 /CUMM (1.4-6.5); ABSOLUTE LYMPH COUNT 2.9 /CUMM (1.2-3.4); ABSOLUTE MONOCYTE COUNT 1.4 /CUMM (0.10-0.60); BASOPHIL % 0.3 % (0.0-2.0); EOSINOPHIL % 0.9 % (0-5); GRANULOCYTE % 69.8 % (42.2-75.2); HEMATOCRIT 22.8 % (37-47); MEAN CORPUSCULAR HGB 28.8 PG (27.0-31.0); MEAN CORPUSCULAR HGB CONC 33.3 G/DL (33.0-37.0); MEAN CORPUSCULAR VOLUME 86.5 FL (81.0-99.0); MEAN PLATELET VOLUME 7.5 FL (7.4-10.4); PLATELET COUNT 275 /CUMM (130-400); RBC DISTRIBUTION WIDTH 14.1 % (11.5-14.5); RED BLOOD CELL CT 2.63 /CUMM (4.20-5.40); WHITE BLOOD CELL COUNT 14.9 /CUMM (4.8-10.8)
[2017-10-11 22:10] VITALS: BP 158/52
[2017-10-12 06:21] LABS: ABSOLUTE BASOPHIL COUNT 0.1 /CUMM (0.0-0.2); ABSOLUTE EOSINOPHIL COUNT 0.4 /CUMM (0.0-0.7); ABSOLUTE LYMPH COUNT 3.6 /CUMM (1.2-3.4); ABSOLUTE MONOCYTE COUNT 2.1 /CUMM (0.10-0.60); BASOPHIL % 0.5 % (0.0-2.0); EOSINOPHIL % 2.4 % (0-5); GRANULOCYTE % 65.8 % (42.2-75.2); MEAN CORPUSCULAR HGB 28.4 PG (27.0-31.0); MEAN CORPUSCULAR HGB CONC 32.9 G/DL (33.0-37.0); MEAN CORPUSCULAR VOLUME 86.3 FL (81.0-99.0); MEAN PLATELET VOLUME 7.6 FL (7.4-10.4); PLATELET COUNT 221 /CUMM (130-400); RBC DISTRIBUTION WIDTH 14.1 % (11.5-14.5); WHITE BLOOD CELL COUNT 18.3 /CUMM (4.8-10.8)
[2017-10-12 06:24] VITALS: BP 150/60
--- NOTE | 2017-10-12 07:57 | PN- Orthopedic ---
See Addendum Subjective Subjective: Pt was seen numerous times overnight by evening PA due to calls regarding bleeding from CLARIBEL site. Site has a constant bloody ooze. Dr. Najera notified. Pt remained stable overnight, HCT 22 - 2 units of prbc transfused which completed around 540 this morning. Stat post transfusion hct 25.8 and all vitasl stable. Pt seen at approx 720 - pale, nauseated, lightheaded. Awake and answers questions appropriately but seems lethargic. Denies any pain but states that she feels horrible - mostly nausea. Objective Vital Signs and I&Os Vital Signs Date Time Temp Pulse Resp B/P B/P Pulse O2 O2 Flow FiO2 Mean Ox Delivery Rate 10/12 0627 98.5 10/12 0624 98.7 105 36 150/60 96 Room Air 10/12 0337 98.5 10/12 0000 Room Air 10/11 2255 98 150/58 10/11 2210 97.8 94 20 158/52 98 Room Air 10/11 2029 96 Room Air 10/11 1714 92 158/70 10/11 1400 97.9 94 20 160/60 95 Room Air 10/11 1252 88 160/88 10/11 0823 84 166/88 10/11 0809 98 Room Air Room Air Intake & Output 10/12 0800 10/12 0000 10/11 1600 10/11 0810/11 0000 10/10 1600 Intake Total 440 250 960 Output Total 350 600 800 250 975 Balance -350 -160 -550 -250 -15 Intake, IV 40 250 160 Intake, Oral 400 800 Output, 100 50 75 Drainage Output, Urine 250 600 750 250 900 Physical Exam: Current Vitals: HR 100, Sat 97% on RA, systolic bp 130, temp 97 General: somewhat lethargic although awake and answering all questions appropriately Chest: regular rhythm, rate around 100-105, no rales/rhonchi/wheezes - clear bilaterally Abd: softly distended, nontender except to deep palpation Ext: 1-2+ edema all 4 ext, PICC in RUE Wd: dressing saturated with bloody drainage. Last changed at 430 am per RN, active constant bloody drainage from R CLARIBEL site, wound is clean and dry with maya intact, no surrounding erythema Current Medications: Current Medications Sig/Clementine Start time Last Medication Dose Route Stop Time Status Admin Acetaminophen 650 MG ONCE ONE 04/30 0330 DC 10/12 PO 10/12 0331 0337 Albuterol Sulfate 3 ML TID 10/07 2100 AC 10/12 INH 0247 Artificial Tears 2 GTT 4 TIMES/DAY 10/10 2100 AC 10/11 OPH 2025 Budesonide/ 2 PUF BID 10/08 2100 AC 10/11 Formoterol Fumarate INH 2026 Cefazolin Sodium 2 GM IQ8 10/12 0000 CAN N/A 1 UNIT IV 10/13 0000 Diclofenac Sodium 1 ALVARO 4 TIMES/DAY 10/11 1300 AC 10/11 TOP 202 Diltiazem HCl 120 MG DAILY 10/12 0900 AC PO Diltiazem HCl 30 MG Q6 10/08 1946 AC 10/12 PO 10/12 0800 0601 Diphenhydramine HCl 25 MG ONCE ONE 10/12 0330 DC 10/12 IV 10/12 0331 0337 Guaifenesin 600 MG Q12 10/08 2100 AC 10/11 PO 202 Hydrocodone Bitart/ 1 TAB Q4 HRS NEEDED PRN 10/10 0715 AC 10/11 Acetaminophen PO 1448 Hydrocodone Bitart/ 2 TAB Q4 HRS NEEDED PRN 10/10 0715 AC 10/11 Acetaminophen PO 2304 Insulin Aspart 0 TIDAC 10/10 1200 AC 10/11 SC 1715 Ipratropium [place] 2.5 ML TID 10/07 2100 AC 10/12 INH 0248 Losartan Potassium 25 MG DAILY 10/10 1121 AC 10/11 PO 0823 Montelukast Sodium 10 MG AT BEDTIME 10/08 2100 AC 10/11 PO 202 Morphine Sulfate 4 MG .STK-MED ONE 10/11 1717 DC IM 10/11 1718 Morphine Sulfate 4 MG .STK-MED ONE 10/11 1356 DC IM 10/11 1357 Morphine Sulfate 2 MG Q3P PRN 10/08 1345 AC 10/11 IV 1400 Ondansetron HCl 4 MG Q6P PRN 10/07 1945 AC 10/08 IV 0950 Pantoprazole Sodium 40 MG DAILY 10/08 0900 AC 10/11 IV 1026 Polyethylene Glycol 17 GM DAILY 10/09 1115 AC 10/11 PO 0824 Promethazine HCl 12.5 MG Q6P PRN 10/07 1945 AC IV 10/14 1859 Rivaroxaban 15 MG BID 10/08 2100 AC 10/11 PO 2025 Senna/Docusate Sodium 1 TAB .STK-MED ONE 10/11 2256 DC PO 10/11 2257 Senna/Docusate Sodium 2 TAB DAILY PRN 10/09 1115 AC 10/11 PO 2258 Sodium Chloride 500 ML BOLUS ONE 10/12 0745 AC IV 10/12 0844 Vancomycin HCl 1,000 MG Q12H 10/12 0400 AC 10/12 Sodium Chloride 250 ML IV 10/13 0359 0550 Vancomycin HCl 1,000 MG Q12H 10/08 0400 DC 10/11 Sodium Chloride 250 ML IV 1714 Results Last 48 Hours of Labs: Laboratory Tests 10/12 10/11 0550 1900 Chemistry Sodium (137 - 145 mmol/L) 134 L Potassium (3.5 - 5.1 mmol/L) 4.4 Chloride (98 - 107 mmol/L) 99 Carbon Dioxide (22 - 30 mmol/L) 30 Anion Gap (5 - 16) 4 L BUN (7 - 17 mg/dL) 28 H Creatinine (0.5 - 1.0 mg/dL) 0.8 Estimated GFR (>60 ml/min) > 60 BUN/Creatinine Ratio (7 - 25 %) 35.0 H Magnesium (1.6 - 2.3 mg/dL) 1.4 L Hematology CBC w Diff MAN DIFF ORDERED NO MAN DIFF REQ WBC (4.8 - 10.8 /CUMM) 18.3 H 14.9 H RBC (4.20 - 5.40 /CUMM) 2.90 L 2.63 L Hgb (12.0 - 16.0 G/DL) 8.2 L 7.6 L Hct (37 - 47 %) 25.0 L 22.8 L MCV (81.0 - 99.0 FL) 86.3 86.5 MCH (27.0 - 31.0 PG) 28.4 28.8 MCHC (33.0 - 37.0 G/DL) 32.9 L 33.3 RDW (11.5 - 14.5 %) 14.1 14.1 Plt Count (130 - 400 /CUMM) 221 275 MPV (7.4 - 10.4 FL) 7.6 7.5 Gran % (42.2 - 75.2 %) 65.8 69.8 Lymphocytes % (20.5 - 51.1 %) 19.7 L 19.5 L Monocytes % (1.7 - 9.3 %) 11.6 H 9.5 H Eosinophils % (0 - 5 %) 2.4 0.9 Basophils % (0.0 - 2.0 %) 0.5 0.3 Absolute Granulocytes (1.4 - 6.5 /CUMM) 12.0 H 10.4 H Segmented Neutrophils (42.2 - 75.2 %) 71 Band Neutrophils (0.0 - 5.0 %) 1 Absolute Lymphocytes (1.2 - 3.4 /CUMM) 3.6 H 2.9 Lymphocytes (20.5 - 51.1 %) 16 L Monocytes (1.7 - 9.3 %) 10 H Absolute Monocytes (0.10 - 0.60 /CUMM) 2.1 H 1.4 H Eosinophils (0 - 5.0 %) 2 Absolute Eosinophils (0.0 - 0.7 /CUMM) 0.4 0.1 Absolute Basophils (0.0 - 0.2 /CUMM) 0.1 0 Platelet Estimate (ADEQUATE) ADEQUATE Polychromasia 1+ Hypochromic-Microcytic 1+ Poikilocytosis 1+ Ovalocytes 1+ Other Body Source Fld Total RBCs Counted (%) 100 10/11 10/10 0640 2015 Chemistry Sodium (137 - 145 mmol/L) 137 Potassium (3.5 - 5.1 mmol/L) 4.5 Chloride (98 - 107 mmol/L) 98 Carbon Dioxide (22 - 30 mmol/L) 32 H Anion Gap (5 - 16) 7 BUN (7 - 17 mg/dL) 21 H Creatinine (0.5 - 1.0 mg/dL) 0.7 Estimated GFR (>60 ml/min) > 60 BUN/Creatinine Ratio (7 - 25 %) 30.0 H Hematology CBC w Diff NO MAN DIFF REQ NO MAN DIFF REQ WBC (4.8 - 10.8 /CUMM) 17.6 H 17.8 H RBC (4.20 - 5.40 /CUMM) 2.90 L 2.95 L Hgb (12.0 - 16.0 G/DL) 8.3 L 8.6 L Hct (37 - 47 %) 25.2 L 25.6 L MCV (81.0 - 99.0 FL) 87.1 86.7 MCH (27.0 - 31.0 PG) 28.7 29.0 MCHC (33.0 - 37.0 G/DL) 33.0 33.5 RDW (11.5 - 14.5 %) 13.6 13.8 Plt Count (130 - 400 /CUMM) 244 231 MPV (7.4 - 10.4 FL) 8.1 8.1 Gran % (42.2 - 75.2 %) 80.8 H 90.6 H Lymphocytes % (20.5 - 51.1 %) 11.3 L 5.2 L Monocytes % (1.7 - 9.3 %) 7.7 4.2 Eosinophils % (0 - 5 %) 0 0 Basophils % (0.0 - 2.0 %) 0.2 0 Absolute Granulocytes (1.4 - 6.5 /CUMM) 14.2 H 16.1 H Absolute Lymphocytes (1.2 - 3.4 /CUMM) 2.0 0.9 L Absolute Monocytes (0.10 - 0.60 /CUMM) 1.3 H 0.8 H Absolute Eosinophils (0.0 - 0.7 /CUMM) 0 0 Absolute Basophils (0.0 - 0.2 /CUMM) 0 0 Assessment/Plan Assessment/Plan 71yo female 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
[2017-10-12 08:02] VITALS: BP 130/54
--- NOTE | 2017-10-12 09:25 | PN- Resident CRCU ---
Subjective HPI/CRCU Issues: Status post laminectomy day 5 Postoperative respiratory failure status post extubation Postoperative hypotension off from pressors Intraoperative sinus bradycardia Right upper extremity deep vein thrombosis Leukocytosis Electrolyte abnormalities Acute blood loss anemia Right upper quadrant abdomen pain 24 Hour Events: pt was seen and examined this afternoon. Patient was found to have significant bleed from the drain sites, drop in hemoglobin, requiring blood transfusion overnight,, found to be lethargic this morning, transferred to ICU for close monitoring She is very lethargic but awakens and responds appropriately Denies any fever or chills, chest pain, short of breath Complains of right upper quadrant pain associated with the nausea. Denies any vomiting She has no back pain. Vitals- 99, 101,18,150/70, 95 on ra. Objective Vital Signs & I&O Last 8 Hrs of Vitals and I&O: Vital Signs Date Time Temp Pulse Resp B/P B/P Pulse O2 O2 Flow FiO2 Mean Ox Delivery Rate 10/12 1200 98 Nasal 2.0L Cannula 10/12 1154 110 154/78 10/12 0842 96 Nasal 2.0L Cannula 10/12 0802 97.5 104 22 130/54 97 Room Air 10/12 0627 98.5 10/12 0624 98.7 105 36 150/60 96 Room Air Exam General Appearance: well developed/nourished, alert, awake, lethargic, mild distress Other Physical Findings: Chest: regular rhythm, rate around 100-105, no rales/rhonchi/wheezes - clear bilaterally Abd: softly distended, nontender except to deep palpation Ext: 1-2+ edema all 4 ext, PICC in RUE Wd: dressing saturated with bloody drainage. active constant bloody drainage from R CLARIBEL site, wound is clean and dry with maya intact, no surrounding erythema Weaning Parameters NIF: 37 Minute Volume: 9.5 Resp rate: 22 Vt: 432 Heart Rate: 93 Weaning Schedule Start Time: 0812 Minute Volume: 10.2 Resp Rate: 17 Vt: 325 Heart Rate: 92 End Time: 1012 Minute Volume: 10.7 Resp Rate: 24 Vt: 400 Heart Rate: 95 Current Medications: Current Medications Sig/Clementine Start time Last Medication Dose Route Stop Time Status Admin Acetaminophen 650 MG ONCE ONE 10/12 329 DC 10/12 PO 10/12 Albuterol Sulfate 3 ML TID 10/07 2099 AC 10/12 INH 1329 Artificial Tears 2 GTT 4 TIMES/DAY 10/10 2100 AC 10/11 OPH 2025 Budesonide/ 2 PUF BID 10/08 2100 AC 10/11 Formoterol Fumarate INH 2026 Cefazolin Sodium 2 GM IQ8 10/12 0000 CAN N/A 1 UNIT IV 10/13 0000 Diclofenac Sodium 1 ALVARO 4 TIMES/DAY 10/11 1300 AC 10/11 TOP 202 Diltiazem HCl 120 MG DAILY 10/12 0900 AC 10/12 PO 1154 Diltiazem HCl 30 MG Q6 10/08 1946 DC 10/12 PO 10/12 0800 0601 Diphenhydramine HCl 25 MG .STK-MED ONE 10/12 0336 DC PO 10/12 0337 Diphenhydramine HCl 25 MG ONCE ONE 10/12 0330 DC 10/12 IV 10/12 0331 0337 Guaifenesin 600 MG Q12 10/08 2100 AC 10/12 PO 1154 Hydrocodone Bitart/ 1 TAB Q4 HRS NEEDED PRN 10/10 0715 AC 10/11 Acetaminophen PO 1448 Hydrocodone Bitart/ 2 TAB Q4 HRS NEEDED PRN 10/10 0715 AC 10/11 Acetaminophen PO 2304 Insulin Aspart 0 TIDAC 10/10 1200 AC 10/12 SC 1155 Ipratropium [place] 2.5 ML TID 10/07 2100 AC 10/12 INH 1329 Losartan Potassium 25 MG DAILY 10/10 1121 AC 10/12 PO 1154 Magnesium Oxide 400 MG ONE ONE 10/12 0915 DC 10/12 PO 10/12 0916 1154 Montelukast Sodium 10 MG AT BEDTIME 10/08 2100 AC 10/11 PO 202 Morphine Sulfate 4 MG .STK-MED ONE 10/11 1717 DC IM 10/11 1718 Morphine Sulfate 4 MG .STK-MED ONE 10/11 1356 DC IM 10/11 1357 Morphine Sulfate 2 MG Q3P PRN 10/08 1345 AC 10/12 IV 1139 Ondansetron HCl 4 MG Q6P PRN 10/07 1945 AC 10/08 IV 0950 Pantoprazole Sodium 40 MG DAILY 10/08 0900 AC 10/12 IV 1142 Polyethylene Glycol 17 GM DAILY 10/09 1115 AC 10/12 PO 1154 Promethazine HCl 12.5 MG Q6P PRN 10/07 1945 AC IV 10/14 185 Rivaroxaban 15 MG BID 10/08 2100 DC 10/11 PO 2025 Senna/Docusate Sodium 1 TAB .STK-MED ONE 10/11 2257 DC PO 10/11 2257 Senna/Docusate Sodium 2 TAB DAILY PRN 10/09 1115 AC 10/11 PO 2258 Sodium Chloride 500 ML BOLUS ONE 10/12 0745 DC 10/12 IV 10/12 0844 0807 Vancomycin HCl 1,000 MG Q12H 10/12 0400 AC 10/12 Sodium Chloride 250 ML IV 10/13 0359 0550 Vancomycin HCl 1,000 MG Q12H 10/08 0400 DC 10/11 Sodium Chloride 250 ML IV 1714 Impression/Plan Impression/Problem List Impression: This is a 71-year-old female with past medical history significant for asthma, COPD not on home oxygen, history of multiple admissions for MRSA pneumonia, hypertension, hyperlipidemia, diabetes mellitus, TIA on Plavix, insomnia, GERD, osteoarthritis, carpal tunnel syndrome, peripheral vascular disease, bilateral lung nodules, previous occluded right internal carotid artery with no significant flow, chronic back pain status post spinal fusion in 2012, was admitted to surgical service on 10/06/2017 for severe back pain, and claudication, found to have severe spinal stenosis requiring laminectomy. She is status post lumbar laminectomy on 10/07/2017 and she is status post respiratory failure requiring intubation, hypotension requiring pressors, bradycardia from prolonged anesthesia. Was in ICU for couple of days for close monitoring. she is status post exbut, s/p off from pressors. Bradycardia was resolved. Also patient was found to have right upper extremity deep vein thrombosis, started on xaralto based on vascular surgery, ortho surgery, neuro surgery recommendations. She was transferred from ICU to telemetry on 2017. On 10/12/2017, Ms. Eduardo was found to have acute blood loss anemia and significant bleeding from CLARIBEL site overnight that required 2 units of blood transfusion. She has right upper quadrant pain associated with the nausea. Given her acute blood loss anemia, bleed from her surgical site patient was transferred again to ICU for close monitoring. Medical team was consulted to follow-up with her closely Vitals afebrile, heart rate 110, blood pressure 150/70, saturating at 99 2L. labs Leukocytosis 21, no bandemia, hemoglobin 7.8, hematocrit 22, platelets 223 INR 2.03 Sodium 133, potassium 5, BUN 31, creatinine 0.9, serum glucose 268 Lactic acid 1.[address] abdomen was done which showed no acute findings. No evidence of paraspinal abscess. No evidence of acute lower Rib fracture Rib x-ray negative for fracture RUE US- Right PICC line in place with occlusive thrombus within the mid to distal right brachial veins and the basilic vein LUE US no deep vein thrombosis CT angiogram chest no evidence of pulmonary embolus Ultrasound abdomen showed hepatocellular disease possibly from hepatic steatosis. No evidence of cholelithiasis or cholecystitis - Acute blood loss anemia On postoperative day 5 patient was found to have significant bleeding from the drain sites. She was very lethargic. She was found to have a drop in hemoglobin 7.8, hematocrit 22 requiring blood transfusion. Acute blood loss anemia, significant bleeding from drain sites most possibly from starting xaralto very soon after her back surgery laminectomy. * ICU close monitoring * Monitor vitals closely every shift * Serial hemoglobin and hematocrit * Transfuse with hemoglobin cold greater than 8 * She is status post 3 unit blood transfusion so far * xaralto was held * Surgical site management as per neurosurgery * No Further neurosurgical interventions were planned * No other sites of bleeding or hematoma were found Right upper quadrant pain Patient has been complaining right upper quadrant pain associated with the nausea for last couple of days. Ultrasound abdomen showed hepatocellular disease possibly from hepatic steatosis. No evidence of cholelithiasis or cholecystitis. CAT scan abdomen and pelvis was done, with no acute findings in abdomen or pelvis. No evidence of paraspinal abscess. No evidence of acute lower rib fracture. No source was found to explain her right upper quadrant pain. That possibility might be musculoskeletal pain. Of note her liver function tests were normal. Right upper extremity deep vein thrombosis Right PICC line in place with occlusive thrombus within the mid to distal right brachial veins and the basilic vein. patient was started on Xarelto for right upper extremity DVT as per neurosurgeon, orthopedic surgeon, vascular surgeon. * Postoperative day 5- patient had acute blood loss anemia from surgical site bleeding * Xarelto was stopped * Further plan for anticoagulation as per vascular surgery Severe lumbar spinal stenosis status post laminectomy day 5 She has very severe canal stenosis and facet overgrowth at L2-3 and at L5-S1, significant spondylosis with irritation of nerve roots and the foramen. She was admitted under surgical service on 10/06/2017 for elective surgery. She Underwent decompressive lumbar laminectomy L2-L3, L5-S1, revision laminectomy L3 -L4 by on 10/07/2017. Status post respiratory failure requiring intubation. She was extubated on 10/08/2017. Surgery lasted for about 9 hours with 1200 mL blood loss. She did have a Cell Saver and apparently she did receive back about half a liter of blood. She has [address]. She was found to have right upper extremity deep vein thrombosis started on Xarelto. However 10/12/2017 she was found to acute blood loss anemia and bleeding from CLARIBEL drain, xaralto was held. * Management as per surgery * Wound dressing as per surgery Postoperative respiratory failure s/p extubation Patient had extensive lumbar surgery for 8 hours, required anesthesia for long time, propofol, remifentanil. She was intubated postoperatively for respiratory failure due to prolonged anesthesia. Also she was noted to have apnea periods during her surgery. Status post extubation on 10/08/2017. * Aspiration precautions * Continue to monitor vitals * DUO. Nebs every 8 hours Hypotension s/p off from pressors Patient was found to have significant hypotension during her surgery, SBP was noted to be around 60-70. Hypotension most likely from propofol sedation for longer periods of time. Also patient was found to have significant blood loss 1200 mL due to extensive lumbar surgery which might have led to hypotension. Patient received 5 L of IV fluid resuscitation during her surgery. Later she was started on levo fed through her PICC line to maintain adequate blood pressure support. * off from pressors * Blood pressure ranging in between 130-150 Significant sinus bradycardia/junctional rhythm Patient was found to be in in junctional rhythm, later sinus bradycardia during her surgery. Sinus bradycardia most likely from prolonged GERD propofol sedation. 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 Echocardiogram in 2014 showed ejection fraction 65%. Her troponin and EKGs within normal limits. * Customer Support Executive on board * Telemetry events uneventful Leukocytosis Patient was found to have elevated WBC count 23,000, no bandemia at the time of admission. She has history of chronic leukocytosis with the baseline WBC ranging around 15,000. Chest x-ray was clear, no pneumonia or consolidation was found. Cultures were negative. * Monitor for any fever, worsening leukocytosis * No source of infection found * Most possibly from STRESS/surgery * Patient is on postoperative antibiotics vancomycin DAY5 as per surgical team Hypomagnesemia Patient was found to have low mag 1.4 Repleted with 2 bags of IV mag sulfate Follow-up electrolytes in the a.m. History of diabetes mellitus Patient has diabetes mellitus type 2, takes oral hypoglycemic agents. Fingersticks tidac/HS Novolog nothing by mouth sliding scale Hold her home medications oral hypoglycemic agents glimepiride and sitagliptin for now consider starting Levemir given her uncontrolled blood sugars COPD continue [facility] nebs H/O TIA 2012- Prominent calcified plaque is seen in the right ICA as described, with only trickle flow noted in the proximal and mid ICA, and no definite flow in the distal ICA. There is no hemodynamically significant stenosis in the left ICA. * Continue holding Plavix 75 daily given back surgery/ABLA. History of hypertension Takes losartan 25 and Cardizem 120 extended release daily Patient is full code REG DIET Pain pathway Vicodin, morphine Alps given back surgery/ABLA for DVT prophylaxis Housekeeping Status post extubation PICC line-10/06/2017-double lumen peripheral line-yes Arterial line-yes-10/07/2017-removed Foleys catheter yes NG tube-none back surgery- 2 drains -removed 10/12/2017 Problem List: 1. DVT (deep venous thrombosis) 2. Spondylosis of lumbar spine Pain Ratin Tomorrow's Labs & Rationales: cbc icu labs Plan DVT/Prophylaxis: pharmacological
[2017-10-12 09:38] LABS: ABSOLUTE BASOPHIL COUNT 0 /CUMM (0.0-0.2); ABSOLUTE EOSINOPHIL COUNT 0.3 /CUMM (0.0-0.7); ABSOLUTE GRANULOCYTE CT 15.6 /CUMM (1.4-6.5); ABSOLUTE LYMPH COUNT 3.1 /CUMM (1.2-3.4); ABSOLUTE MONOCYTE COUNT 1.8 /CUMM (0.10-0.60); BASOPHIL % 0.1 % (0.0-2.0); EOSINOPHIL % 1.6 % (0-5); GRANULOCYTE % 74.8 % (42.2-75.2); HEMATOCRIT 22.7 % (37-47); MEAN CORPUSCULAR HGB 29.2 PG (27.0-31.0); MEAN CORPUSCULAR HGB CONC 34.3 G/DL (33.0-37.0); MEAN CORPUSCULAR VOLUME 85.1 FL (81.0-99.0); PLATELET COUNT 223 /CUMM (130-400); RBC DISTRIBUTION WIDTH 14.1 % (11.5-14.5); RED BLOOD CELL CT 2.67 /CUMM (4.20-5.40); WHITE BLOOD CELL COUNT 20.8 /CUMM (4.8-10.8)
--- NOTE | 2017-10-12 09:43 | Event Note ---
Event Note Event Note: S: I received a call from surgical service for an urgent consult of Mrs. Eduardo for acute blood loss anemia and severe right upper quadrant pain associated with nausea. B: Ms Eduardo is a 71-year-old female status post major lumbar laminectomy and fusion procedure postop day #5, PICC line right side with DVT on Xarelto. Patient has past medical history significant for asthma, COPD not on home oxygen , history of multiple admissions for MRSA pneumonia, hypertension, hyperlipidemia, diabetes mellitus, TIA on Plavix, insomnia, GERD, osteoarthritis , carpal tunnel syndrome, peripheral vascular disease, bilateral lung nodules, 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She underwent prolonged surgery and had general anesthesia for prolonged period of time. Patient had a CRCU stay for hypotension postoperative, improved. No right chest pain, right upper quadrant abdominal pain radiated to the right flank with negative chest x-ray for right hip fracture, abdominal ultrasound showed a hepatocellular process possibly due to hepatic steatosis. Normal-appearing gallbladder without evidence of cholelithiasis or ultrasound findings of cholecystitis. PE was ruled out. Patient was transferred to telemetry floor overnight. A: Patient had significant bleeding from CLARIBEL site overnight that required transfusion of 2 units of blood. This morning vital signs are stable blood pressure 130/54, pulse rate 104, temperature 97.5, saturating 97% on room air. Patient is alert oriented 3 Patient complains of shortness of breath despite adequate saturation on room air and was started on 2 L nasal cannula for comfort. Patient complains of right upper quadrant pain radiating to right flank that has been constant for the last 4 days, associated with nausea today but no vomiting. Patient denied any bowel movement only passed some gas. Patient has adequate urine output. Tele events were reviewed, NSR average 90 BPM R: Discussed the case with Ray Najera MD and my attending Dr. Magana 1-we will obtain abdomen and pelvis CT scan with and without contrast to rule out intra-peritoneal bleeds, hepatic bleeding, kidney stone, concerns for intestinal perforation (discussed the differential and study choice with Arsenio Schulz MD) 2-a call back from vascular services was placed to discussed anticoagulation--- meanwhile will hold Xarelto dose 3-we will obtain surveillance ultrasound of bilateral lower extremity to rule out DVT in anticipation to discontinue anticoagulation given massive bleeding from CLARIBEL site 4-we will obtain CBC, lactic acid, lactate dehydrogenase, liver function, coagulation profile 5-magnesium was repleted p.o. 6-recommendation to start low-dose Levemir, avoid tight control of blood sugar. Fasting blood sugar has been running between 203 100 7-patient will be transferred back to ICU for close monitoring, I signed out to ICU team, the attending Dr. Kahn will evaluate the patient and give further recommendation Surgical PA Kamilla Paula was updated about the recommendations. The patient was seen and discussed with Dr. Herrera and above events noted this morning. CT abd/pelvis done. Agree with transfer back to ICU as above. Orthopedics and Dr. Kahn aware. Dr. Kahn will resume care.
[2017-10-12 10:03] LABS: PT 22.3 SEC (9.4-12.5); PTT 26 SEC (25-37)
--- NOTE | 2017-10-12 10:49 | CT SCAN REPORT ---
EXAMINATION: CT ABDOMEN AND PELVIS WITHOUT AND WITH CONTRAST CLINICAL INFORMATION: 71-year-old female, postoperative day 5, with profuse drainage from CLARIBEL site and abdominal pain. Evaluate for abdominal process, pulmonary process and rib fracture. COMPARISON: Limited abdominal ultrasound from 10/09/2017. CT images from 08/21/2015. TECHNIQUE: Multidetector volumetric imaging was performed through the abdomen prior to IV contrast. The abdomen and pelvis were then reexamined after the administration of 95 mL Optiray 320 intravenous contrast. Sagittal and coronal reformatted images were obtained on the technologist's workstation. DLP: 2557 mGy-cm FINDINGS: LUNG BASES: No evidence of basilar consolidation, pulmonary edema or pleural effusion. Atherosclerotic calcification of coronary arteries. LIVER, GALLBLADDER, AND BILIARY TREE: Liver has normal size and contour. The attenuation of the liver is in the normal range on the noncontrast images. However, on the portal venous phase postcontrast images, the liver is diffusely hypodense compared to the spleen, which suggests possibility of mild steatosis. No evidence of hepatic mass or intrahepatic bile duct dilatation. The gallbladder is unremarkable. PANCREAS: Unremarkable. SPLEEN: Unremarkable. ADRENAL GLANDS: Unremarkable. KIDNEYS AND URETERS: Kidneys are normal in size and enhance symmetrically. No suspicious renal lesion, nephrolithiasis or hydronephrosis. BLADDER: Urinary bladder has normal wall thickness. Small focus of gas in the lumen of the bladder is likely secondary to recent bladder catheterization. GASTROINTESTINAL TRACT: Stomach is unremarkable. Loops of bowel are normal in caliber. The appendix is normal. There is a diverticulum of the sigmoid colon without diverticulitis. No ascites or pneumoperitoneum. ABDOMINAL WALL: No acute findings. There is chronic diastases of rectus abdominis muscles. A very small fat-containing umbilical hernia is noted. LYMPH NODES: Normal. VASCULAR: Atherosclerotic calcification of the abdominal aorta and iliac arteries without aneurysm. No retroperitoneal hematoma. PELVIC VISCERA: The uterus and adnexa are grossly unremarkable. No pelvic free fluid or pelvic abscess. MUSCULOSKELETAL STRUCTURES: Eris along the midline of the back in this patient who is status post multilevel lumbar laminectomy and spinal fusion. Spinal fusion rods and transpedicular screws are noted from L2 to S1. Surgical changes from the multilevel discectomy/fusion, and the intervertebral cages are in satisfactory position at L2-L3 and L5-S1. There is no unusual posterior paraspinal fluid collection. The visualized ribs in the lower chest are intact; no acute, displaced rib fracture. IMPRESSION: 1. No acute findings in the abdomen or pelvis. 2. Status post lumbosacral spinal surgery; no evidence of paraspinal abscess. 3. No evidence of an acute lower rib fracture.
--- NOTE | 2017-10-12 11:38 | Cons- Medical ---
General Information and HPI Consulting Request Date of Consult: 10/12/17 Requested By: Dania HARRIS,Ray Rose Reason for Consult: Acute blood loss anemia DVT right upper limb Allergies/Medications Allergies: Coded Allergies: Sulfa (Sulfonamide Antibiotics) (Intermediate, SKIN TURNS PURPLE/HOT 09/24/17) Penicillins (Mild, ITCHING 09/24/17) aspirin (HX GASTRITIS 10/06/17) ASA->BLEEDING atorvastatin (PER PT MED LIST 09/24/17) prednisone (Severe, VISION CHANGES 09/24/17) Uncoded Allergies: ENVIRONMENTAL (UNKNOWN 07/20/13) MULTIPLE ANTIBIOTICS (UNKNOWN 07/20/13) Home Med List: Acetaminophen (8HR Arthritis Pain Relief) 650 MG TABLET.ER 2 TAB PO QHS PAIN (Reported) Albuterol Sulfate (Proair Hfa) 90 MCG HFA.AER.AD 2 PUF INH PRN ASTHMA/ ALLERGIES (Reported) Ascorbate Calcium (Vitamin C) 500 MG TABLET 1 TAB PO DAILY SUPPLEMENT ( Reported) Azelastine/Fluticasone (Dymista Nasal [place]) 137 MCG-50 MCG/SPRAY SPRAY.PUMP 1 SPRAY NASB PRN ALLERGIES (Reported) Budesonide/Formoterol Fumarate (Symbicort 160-4.5 Mcg Inhaler) 160 MCG-4.5 MCG/ ACTUATION HFA.AER.AD 2 PUFF INH BID ASTHMA/ALLERGIES (Reported) Cetirizine HCl (Zyrtec) 10 MG CAPSULE 1 CAP PO DAILY ALLERGIES (Reported) Cholecalciferol (Vitamin D3) (Vitamin D) 1,000 UNIT TABLET 1 TAB PO DAILY SUPPLEMENT (Reported) Clopidogrel Bisulfate (Plavix) 75 MG TABLET 1 TAB PO DAILY ANTICOAGULATION ( Reported) Cyclobenzaprine HCl 5 MG TABLET 1 TAB PO QHS MUSCLE SPASMS (Reported) Diltiazem HCl (Cartia Xt) 120 MG CAP.ER.24H 1 CAP PO DAILY CARDIAC (Reported) Docusate Sodium (Colace) 100 MG CAPSULE 1 CAP PO BID STOOL SOFTENER (Reported ) Gabapentin 300 MG CAPSULE 1 CAP PO PRN PAIN (Reported) Glimepiride 2 MG TABLET 1.5 TAB PO DAILY DM (Reported) Iron Carb,Gl/FA/B12/C/Docusate (Ferralet 90 Tablet) 90 MG-1 MG-12 MCG-120 MG-50 MG TABLET 1 TAB PO DAILY SUPPLEMENT (Reported) Losartan Potassium (Cozaar) 25 MG TABLET 1 TAB PO DAILY HTN (Reported) Magnesium Oxide (Magnesium) (Unknown Strength) CAPSULE (Unknown Dose) PO TID SUPPLEMENT (Reported) Melatonin 10 MG CAPSULE 1 CAP PO QPM SLEEP (Reported) Montelukast Sodium (Singulair) 10 MG TABLET 1 TAB PO DAILY ALLERGIES ( Reported) Multiple Vitamin (Multivitamins) 1 EACH TABLET 1 TAB PO DAILY SUPPLEMENT ( Reported) Multivit-Min/FA/Lutein/Zeaxant (Macular Vitamin Tablet) 500 MCG-5 MG-1 MG TABLET 1 TAB PO DAILY SUPPLEMENT (Reported) Omeprazole 40 MG CAPSULE.DR 1 CAP PO DAILY AC GERD (Reported) Sitagliptin Phosphate (Januvia) 100 MG TABLET 1 TAB PO DAILY DM (Reported) Tobramycin (Tobrex) 0.3 % DROPS 2 GTT OPH TID EYE (Reported) Past History Medical History Blood Transfusion Hx: No Neurological: TIA EENT: NONE Cardiovascular: hypertension, hyperlipidemia, CAROTID ARTERY STENOSIS Respiratory: asthma, bronchitis, COPD, MRSA PNA Gastrointestinal: GERD Hepatic: STEATOSIS OF LIVER Renal: NONE Musculoskeletal: osteoarthritis, chronic back pain s/p spinal fusion; OA CARPAL TUNNEL Psychiatric: NONE Endocrine: NIDDM Blood Disorders: NONE Cancer(s): NONE 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 Home Who Do You Live With? spouse Primary Language: Romanian Smoking Status: Never Smoked ETOH Use: denies use Illicit Drug Use: denies illicit drug use Living Will? unknown Power of Sas Developer Analyst/HCP? unknown Name of POA/HCP: Dr. Rollins Other Social History: Not relevant Functional Ability ADLs Independent: dressing. Ambulation: independent IADLs Independent: shopping. Employment History Employment: Retired Profession/Employer: not applicable Assessment/Plan Consult Acknowledgment - Thank you for your consult request.
--- NOTE | 2017-10-12 11:51 | PN- Cardiology ---
Subjective Subjective: The patient was noted to develop significant bleeding from CLARIBEL site on Xarelto overnight requiring transfusion of 2 units of packed red blood cells. Xarelto has been placed on hold, and she was transferred to the intensive care unit. She has had no recent chest pain. 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 She complains of shortness of breath which has been stable for the past few days. No nausea or vomiting. No diaphoresis. Objective Vital Signs and I&Os Vital Signs Date Time Temp Pulse Resp B/P B/P Pulse O2 O2 Flow FiO2 Mean Ox Delivery Rate 10/12 0842 96 Nasal 2.0L Cannula 10/12 0802 97.5 104 22 130/54 97 Room Air 10/12 0627 98.5 10/12 0624 98.7 105 36 150/60 96 Room Air 10/12 0337 98.5 10/12 0000 Room Air 10/11 2255 98 150/58 10/11 2210 97.8 94 20 158/52 98 Room Air 10/11 2029 96 Room Air 10/11 1714 92 158/70 10/11 1400 97.9 94 20 160/60 95 Room Air 10/11 1252 88 160/88 Intake & Output 10/12 1600 10/12 0800 10/12 0000 10/11 1600 10/11 0800 10/11 0000 Intake Total 850 440 250 Output Total 350 350 600 800 250 Balance 500 -350 -160 -550 -250 Intake, IV 850 40 250 Intake, Oral 400 Output, 100 50 Drainage Output, Urine 350 250 600 750 250 Physical Exam: Gen: NAD HEENT: normal Lungs: clear to auscultation, normal resp. effort Heart: RRR, S1, S2, 1/6 systolic murmur Abdomen: Soft, nontender, no masses Extremities: No clubbing, cyanosis, or edema. Neuro: Alert and oriented x 3, cranial nerves intact Current Medications: Current Medications Sig/Clementine Start time Last Medication Dose Route Stop Time Status Admin Acetaminophen 650 MG ONCE ONE 10/12 329 DC 10/12 PO 10/12 Albuterol Sulfate 3 ML TID 10/07 INH 0247 Artificial Tears 2 GTT 4 TIMES/DAY 10/10 OPH 2024 Budesonide/ 2 PUF BID 10/08 Formoterol Fumarate INH 2026 Cefazolin Sodium 2 GM IQ8 10/12 0000 CAN N/A 1 UNIT IV 10/13 0000 Diclofenac Sodium 1 ALVARO 4 TIMES/DAY 10/11 1300 AC 10/11 TOP 2025 Diltiazem HCl 120 MG DAILY 10/12 0900 AC PO Diltiazem HCl 30 MG Q6 10/08 1946 DC 10/12 PO 10/12 0800 0601 Diphenhydramine HCl 25 MG .STK-MED ONE 10/12 0336 DC PO 10/12 0337 Diphenhydramine HCl 25 MG ONCE ONE 10/12 0330 DC 10/12 IV 10/12 0331 0337 Guaifenesin 600 MG Q12 10/08 2100 AC 10/11 PO 202 Hydrocodone Bitart/ 1 TAB Q4 HRS NEEDED PRN 10/10 0715 AC 10/11 Acetaminophen PO 1448 Hydrocodone Bitart/ 2 TAB Q4 HRS NEEDED PRN 10/10 0715 AC 10/11 Acetaminophen PO 2304 Insulin Aspart 0 TIDAC 10/10 1200 AC 10/11 SC 1715 Ipratropium Armstrong 2.5 ML TID 10/07 2100 AC 10/12 INH 0248 Losartan Potassium 25 MG DAILY 10/10 1121 AC 10/11 PO 0823 Magnesium Oxide 400 MG ONE ONE 10/12 0915 DC PO 10/12 0916 Montelukast Sodium 10 MG AT BEDTIME 10/08 2100 AC 10/11 PO 2024 Morphine Sulfate 4 MG .STK-MED ONE 10/11 1717 DC IM 10/11 1718 Morphine Sulfate 4 MG .STK-MED ONE 10/11 1356 DC IM 10/11 1357 Morphine Sulfate 2 MG Q3P PRN 10/08 1345 AC 10/12 IV 1139 Ondansetron HCl 4 MG Q6P PRN 10/07 1945 AC 10/08 IV 0950 Pantoprazole Sodium 40 MG DAILY 10/08 0900 AC 10/11 IV 1026 Polyethylene Glycol 17 GM DAILY 10/09 1115 AC 10/11 PO 0824 Promethazine HCl 12.5 MG Q6P PRN 10/07 1945 AC IV 10/14 1859 Rivaroxaban 15 MG BID 10/08 2100 DC 10/11 PO 202 Senna/Docusate Sodium 1 TAB .STK-MED ONE 10/11 2257 DC PO 10/11 225 Senna/Docusate Sodium 2 TAB DAILY PRN 10/09 1115 AC 10/11 PO 2258 Sodium Chloride 500 ML BOLUS ONE 10/12 0745 DC 10/12 IV 10/12 0844 0807 Vancomycin HCl 1,000 MG Q12H 10/12 040 AC 10/12 Sodium Chloride 250 ML IV 10/13 0359 0550 Vancomycin HCl 1,000 MG Q12H 10/08 0400 DC 10/11 Sodium Chloride 250 ML IV 1714 Results Last 48 Hrs of Labs/Mics: Laboratory Tests 10/12/17 0912: Lactic Acid 1.6 10/12/17 0912: Anion Gap 4 L, Estimated GFR > 60, Glucose 268 H, Calcium 7.5 L, Phosphorus 4.0, Magnesium 1.4 L, Total Bilirubin 0.3, AST 21, ALT 50, Albumin 2.1 L, PT 22.3 H, INR 2.03 H, APTT 26, CBC w Diff NO MAN DIFF REQ, RBC 2.67 L, MCV 85.1 , MCH 29.2, MCHC 34.3, RDW 14.1, MPV 8.0, Gran % 74.8, Lymphocytes % 14.7 L, Monocytes % 8.8, Eosinophils % 1.6, Basophils % 0.1, Absolute Granulocytes 15.6 H, Absolute Lymphocytes 3.1, Absolute Monocytes 1.8 H, Absolute Eosinophils 0.3 , Absolute Basophils 0 10/12/17 0550: Anion Gap 4 L, Estimated GFR > 60, BUN/Creatinine Ratio 35.0 H, Magnesium 1.4 L, Total Bilirubin 0.4, Direct Bilirubin 0.3, AST 23, ALT 43, Alkaline Phosphatase 47, Lactate Dehydrogenase 557, Total Protein 4.0 L, Albumin 2.1 L, CBC w Diff MAN DIFF ORDERED, RBC 2.90 L, MCV 86.3, MCH 28.4, MCHC 32.9 L, RDW 14.1, MPV 7.6, Gran % 65.8, Lymphocytes % 19.7 L, Monocytes % 11.6 H, Eosinophils % 2.4, Basophils % 0.5, Absolute Granulocytes 12.0 H, Segmented Neutrophils 71, Band Neutrophils 1, Absolute Lymphocytes 3.6 H, Lymphocytes 16 L, Monocytes 10 H, Absolute Monocytes 2.1 H, Eosinophils 2, Absolute Eosinophils 0.4, Absolute Basophils 0.1, Platelet Estimate ADEQUATE, Polychromasia 1+, Hypochromic-Microcytic 1+, Poikilocytosis 1+, Ovalocytes 1+, Fld Total RBCs Counted 100 10/11/17 1900: CBC w Diff NO MAN DIFF REQ, RBC 2.63 L, MCV 86.5, MCH 28.8, MCHC 33.3, RDW 14.1 , MPV 7.5, Gran % 69.8, Lymphocytes % 19.5 L, Monocytes % 9.5 H, Eosinophils % 0.9, Basophils % 0.3, Absolute Granulocytes 10.4 H, Absolute Lymphocytes 2.9, Absolute Monocytes 1.4 H, Absolute Eosinophils 0.1, Absolute Basophils 0 10/11/17 0640: Anion Gap 7, Estimated GFR > 60, BUN/Creatinine Ratio 30.0 H, CBC w Diff NO MAN DIFF REQ, RBC 2.90 L, MCV 87.1, MCH 28.7, MCHC 33.0, RDW 13.6, MPV 8.1, Gran % 80.8 H, Lymphocytes % 11.3 L, Monocytes % 7.7, Eosinophils % 0, Basophils % 0.2, Absolute Granulocytes 14.2 H, Absolute Lymphocytes 2.0, Absolute Monocytes 1.3 H, Absolute Eosinophils 0, Absolute Basophils 0 10/10/17 2016: CBC w Diff NO MAN DIFF REQ, RBC 2.95 L, MCV 86.7, MCH 29.0, MCHC 33.5, RDW 13.8 , MPV 8.1, Gran % 90.6 H, Lymphocytes % 5.2 L, Monocytes % 4.2, Eosinophils % 0, Basophils % 0, Absolute Granulocytes 16.1 H, Absolute Lymphocytes 0.9 L, Absolute Monocytes 0.8 H, Absolute Eosinophils 0, Absolute Basophils 0 Recent Imaging Studies: CT scan of the abdomen and pelvis: 1. No acute findings in the abdomen or pelvis. 2. Status post lumbosacral spinal surgery; no evidence of paraspinal abscess. 3. No evidence of an acute lower rib fracture. Assessment/Plan Assessment/Plan Assessment: 1. Status post back fusion surgery 2. Intraoperative and postoperative bradycardia and hypotension, improved 3. Acute blood loss anemia on Xarelto 4. Left upper extremity deep vein thrombus Plan: * Anticoagulation on hold on hold * The patient is currently receiving transfusion * Continue diltiazem and losartan Continue telemetry? Yes
--- NOTE | 2017-10-12 12:04 | PN- Neurosurgical ---
Surgical Brief Attending Note Brief Attending Note: Postoperative day #5 Significant bleeding from the drains sides probably consecutive to being restarted on Xarelto so soon after surgery. This is a recognized issue with anticoagulants especially those that are difficult to reverse She is very lethargic, but awakens and responds appropriately. She is complaining significantly of right flank pain much more than incisional pain or leg pain. She is markedly tender to palpation of her lower ribs on the right side and the whole area between the underside of her breast and her right flank. She is being transfused. Her H&H is still 7 and 22 thus she will require 4 more units to remain in a satisfactory level. A CAT scan of her abdomen has been obtained and apparently it does not show any significant lesion and a lot in the liver however we are waiting on the final reports. She has been returned to the intensive care which is a logical decision. At this point no neurosurgical intervention necessary
--- NOTE | 2017-10-12 12:13 | ULTRASOUND REPORT ---
EXAMINATION: US TRIPLEX OF LOWER EXTREMITIES, BILATERAL CLINICAL INFORMATION: Pain COMPARISON: None TECHNIQUE: Color-flow triplex imaging with spectral analysis and compression Doppler were performed on the lower extremities. FINDINGS: Respiratory variation, normal compression and augmented flow are noted throughout the lower extremities. The visualized common femoral vein, superficial femoral vein, profunda femoral vein, popliteal vein and midcalf peroneal and posterior tibial venous segments show no evidence of deep venous thrombosis. There is no Mclean's cyst. IMPRESSION: Normal triplex scan without evidence of deep venous thrombosis involving the lower extremities.
--- NOTE | 2017-10-12 12:22 | PN- CRCU ---
Subjective HPI/Critical Care Issues: Patient seen and examined this morning. She was transferred to the ICU after significant bleeding/blood loss from her back surgical area resulting in a drop in hemoglobin. She appears pale and lethargic however her vital signs appear within reasonable limits. Objective Current Medications: Current Medications Sig/Clementine Start time Last Medication Dose Route Stop Time Status Admin Acetaminophen 650 MG ONCE ONE 10/12 0330 DC 10/12 PO 10/12 0331 0337 Albuterol Sulfate 3 ML TID 10/07 2100 AC 10/12 INH 0247 Artificial Tears 2 GTT 4 TIMES/DAY 10/10 2100 AC 10/11 OPH 2025 Budesonide/ 2 PUF BID 10/08 2100 AC 10/11 Formoterol Fumarate INH 2026 Cefazolin Sodium 2 GM IQ8 10/12 0000 CAN N/A 1 UNIT IV 10/13 0000 Diclofenac Sodium 1 ALVARO 4 TIMES/DAY 10/11 1300 AC 10/11 TOP 202 Diltiazem HCl 120 MG DAILY 10/12 0900 AC 10/12 PO 1154 Diltiazem HCl 30 MG Q6 10/08 1946 DC 10/12 PO 10/12 0800 0601 Diphenhydramine HCl 25 MG .STK-MED ONE 10/12 0336 DC PO 10/12 0337 Diphenhydramine HCl 25 MG ONCE ONE 10/12 0330 DC 10/12 IV 10/12 0331 0337 Guaifenesin 600 MG Q12 10/08 2100 AC 10/12 PO 1154 Hydrocodone Bitart/ 1 TAB Q4 HRS NEEDED PRN 10/10 0715 AC 10/11 Acetaminophen PO 1448 Hydrocodone Bitart/ 2 TAB Q4 HRS NEEDED PRN 10/10 0715 AC 10/11 Acetaminophen PO 2304 Insulin Aspart 0 TIDAC 10/10 1200 AC 10/12 SC 1155 Ipratropium [place] 2.5 ML TID 10/07 2100 AC 10/12 INH 0248 Losartan Potassium 25 MG DAILY 10/10 1121 AC 10/12 PO 1154 Magnesium Oxide 400 MG ONE ONE 10/12 0915 DC 10/12 PO 10/12 0916 1154 Montelukast Sodium 10 MG AT BEDTIME 10/08 2100 AC 10/11 PO 2025 Morphine Sulfate 4 MG .STK-MED ONE 10/11 1717 DC IM 10/11 1718 Morphine Sulfate 4 MG .STK-MED ONE 10/11 1356 DC IM 10/11 1357 Morphine Sulfate 2 MG Q3P PRN 10/08 1345 AC 10/12 IV 1139 Ondansetron HCl 4 MG Q6P PRN 10/07 1945 AC 10/08 IV 0950 Pantoprazole Sodium 40 MG DAILY 10/08 0900 AC 10/12 IV 1142 Polyethylene Glycol 17 GM DAILY 10/09 1115 AC 10/12 PO 1154 Promethazine HCl 12.5 MG Q6P PRN 10/07 1945 AC IV 10/14 1859 Rivaroxaban 15 MG BID 10/08 2100 DC 10/11 PO 2026 Senna/Docusate Sodium 1 TAB .STK-MED ONE 10/11 2257 DC PO 10/11 2258 Senna/Docusate Sodium 2 TAB DAILY PRN 10/09 1115 AC 10/11 PO 2258 Sodium Chloride 500 ML BOLUS ONE 10/12 0745 DC 10/12 IV 10/12 0844 0807 Vancomycin HCl 1,000 MG Q12H 10/12 0400 AC 10/12 Sodium Chloride 250 ML IV 10/13 0359 0550 Vancomycin HCl 1,000 MG Q12H 10/08 0400 DC 10/11 Sodium Chloride 250 ML IV 1714 Vital Signs & I&O Last 24 Hrs of Vitals and I&O: Vital Signs Date Time Temp Pulse Resp B/P B/P Pulse O2 O2 Flow FiO2 Mean Ox Delivery Rate 10/12 1154 110 154/78 10/12 0842 96 Nasal 2.0L Cannula 10/12 0802 97.5 104 22 130/54 97 Room Air 10/12 0627 98.5 10/12 0624 98.7 105 36 150/60 96 Room Air 10/12 0337 98.5 10/12 0000 Room Air 10/11 2255 98 150/58 10/11 2210 97.8 94 20 158/52 98 Room Air 10/11 2029 96 Room Air 10/11 1714 92 158/70 10/11 1400 97.9 94 20 160/60 95 Room Air 10/11 1252 88 160/88 Intake & Output 10/12 1600 10/12 0800 10/12 0000 Intake Total 850 Output Total 350 350 Balance 500 -350 Intake, IV 850 Output, 100 Drainage Output, Urine 350 250 Exam Other Physical Findings: Patient is arousable awake however lethargic. She appears pale. Her heart exam is normal. Respiratory examination is with some rare rhonchi. Her dressing in the back was soaked with blood and recently changed by surgery. Some upper extremity edema. Results Last 24 Hrs of Lab Results: Laboratory Tests 10/12/17 0912: Lactic Acid 1.6 10/12/17 0912: Anion Gap 4 L, Estimated GFR > 60, Glucose 268 H, Calcium 7.5 L, Phosphorus 4.0, Magnesium 1.4 L, Total Bilirubin 0.3, AST 21, ALT 50, Albumin 2.1 L, PT 22.3 H, INR 2.03 H, APTT 26, CBC w Diff NO MAN DIFF REQ, RBC 2.67 L, MCV 85.1 , MCH 29.2, MCHC 34.3, RDW 14.1, MPV 8.0, Gran % 74.8, Lymphocytes % 14.7 L, Monocytes % 8.8, Eosinophils % 1.6, Basophils % 0.1, Absolute Granulocytes 15.6 H, Absolute Lymphocytes 3.1, Absolute Monocytes 1.8 H, Absolute Eosinophils 0.3 , Absolute Basophils 0 10/12/17 0550: Anion Gap 4 L, Estimated GFR > 60, BUN/Creatinine Ratio 35.0 H, Magnesium 1.4 L, Total Bilirubin 0.4, Direct Bilirubin 0.3, AST 23, ALT 43, Alkaline Phosphatase 47, Lactate Dehydrogenase 557, Total Protein 4.0 L, Albumin 2.1 L, CBC w Diff MAN DIFF ORDERED, RBC 2.90 L, MCV 86.3, MCH 28.4, MCHC 32.9 L, RDW 14.1, MPV 7.6, Gran % 65.8, Lymphocytes % 19.7 L, Monocytes % 11.6 H, Eosinophils % 2.4, Basophils % 0.5, Absolute Granulocytes 12.0 H, Segmented Neutrophils 71, Band Neutrophils 1, Absolute Lymphocytes 3.6 H, Lymphocytes 16 L, Monocytes 10 H, Absolute Monocytes 2.1 H, Eosinophils 2, Absolute Eosinophils 0.4, Absolute Basophils 0.1, Platelet Estimate ADEQUATE, Polychromasia 1+, Hypochromic-Microcytic 1+, Poikilocytosis 1+, Ovalocytes 1+, Fld Total RBCs Counted 100 10/11/17 1900: CBC w Diff NO MAN DIFF REQ, RBC 2.63 L, MCV 86.5, MCH 28.8, MCHC 33.3, RDW 14.1 , MPV 7.5, Gran % 69.8, Lymphocytes % 19.5 L, Monocytes % 9.5 H, Eosinophils % 0.9, Basophils % 0.3, Absolute Granulocytes 10.4 H, Absolute Lymphocytes 2.9, Absolute Monocytes 1.4 H, Absolute Eosinophils 0.1, Absolute Basophils 0 Impression/Plan Impression/Plan Impression/Plan: Impression 71 year old woman * extensive back surgery * acute blood loss anemia, likely surgical site * RUE DVT * hx of asthma * hx of MRSA pna Plan Respiratory -trc/nebs -monitor saturations ID -per surgical team CVS -f/u Dr. Young's/Cardiology recommendations Heme -monitor cbc, platelets -xarelto was discontinued, alert vascular surgery regarding inability to anticoagulate given blood loss -continue picc line per vascular surgery - RUE DVT and PICC line management per vascular Metabolic -ins/outs -creatinine/electrolyte monitoring Alimentary -per surgery Neuro -pain control DVT prophylaxis at all times TTS 35 min F/u all imaging and cbc's
--- NOTE | 2017-10-12 15:47 | PN- Vascular Surgery ---
Subjective Subjective: pt complaining of abdominal pain and feeling weak. Review of Systems: as above Objective Vital Signs and I&Os Vital Signs Date Time Temp Pulse Resp B/P B/P Pulse O2 O2 Flow FiO2 Mean Ox Delivery Rate 10/12 1524 Nasal 2.0L Cannula 10/12 1200 98 Nasal 2.0L Cannula 10/12 1154 110 154/78 10/12 0842 96 Nasal 2.0L Cannula 10/12 0802 97.5 104 22 130/54 97 Room Air 10/12 0627 98.5 10/12 0624 98.7 105 36 150/60 96 Room Air 10/12 0337 98.5 10/12 0000 Room Air 10/11 2255 98 150/58 10/11 2210 97.8 94 20 158/52 98 Room Air 10/11 2029 96 Room Air 10/11 1714 92 158/70 Intake & Output 10/12 1600 10/12 0800 10/12 0000 10/11 1600 10/11 0800 10/11 0000 Intake Total 520 850 440 250 Output Total 300 350 350 600 800 250 Balance 220 500 -350 -160 -550 -250 Intake, Blood 320 Product Intake, IV 850 40 250 Intake, Oral 200 400 Output, 100 50 Drainage Output, Urine 300 350 250 600 750 250 soft,nt,nd extremities wwp. no appreciable swelling. Assessment/Plan Assessment/Plan 71 f w/ hx of obestiy s/p lumbar spinal fusion post op with right arm dvt 2/2 picc line started on xarelto now with concern for bleed. -ok to hold AC in setting of possible active bleeding -CT does not show intra-abdominal/rp bleed. -consider gi consult for possible gi bleed. -lower extremity duplex with no le dvt. no indication for IVC filter at this time as it is upper extremity dvt and no pe. -would resume ac when no contr-indication. Consider asa/low dose sqh if possible. please call with questions.
[2017-10-12 17:59] LABS: ABSOLUTE BASOPHIL COUNT 0 /CUMM (0.0-0.2); ABSOLUTE EOSINOPHIL COUNT 0 /CUMM (0.0-0.7); ABSOLUTE GRANULOCYTE CT 23.5 /CUMM (1.4-6.5); ABSOLUTE LYMPH COUNT 3.4 /CUMM (1.2-3.4); ABSOLUTE MONOCYTE COUNT 2.3 /CUMM (0.10-0.60); BASOPHIL % 0 % (0.0-2.0); EOSINOPHIL % 0.1 % (0-5); GRANULOCYTE % 80.6 % (42.2-75.2); HEMATOCRIT 27.5 % (37-47); MEAN CORPUSCULAR HGB 29.2 PG (27.0-31.0); MEAN CORPUSCULAR HGB CONC 33.3 G/DL (33.0-37.0); MEAN CORPUSCULAR VOLUME 87.7 FL (81.0-99.0); MEAN PLATELET VOLUME 8.2 FL (7.4-10.4); PLATELET COUNT 207 /CUMM (130-400); RBC DISTRIBUTION WIDTH 14.2 % (11.5-14.5); RED BLOOD CELL CT 3.14 /CUMM (4.20-5.40)
[2017-10-12 18:00] VITALS: BP 162/84
[2017-10-12 18:17] LABS: WHITE BLOOD CELL COUNT 29.2 /CUMM (4.8-10.8)
[2017-10-13] VITALS: BP 150/60
[2017-10-13 00:23] LABS: ABSOLUTE BASOPHIL COUNT 0.2 /CUMM (0.0-0.2); ABSOLUTE EOSINOPHIL COUNT 0.2 /CUMM (0.0-0.7); ABSOLUTE GRANULOCYTE CT 21.5 /CUMM (1.4-6.5); ABSOLUTE LYMPH COUNT 4.4 /CUMM (1.2-3.4); ABSOLUTE MONOCYTE COUNT 2.5 /CUMM (0.10-0.60); BASOPHIL % 0.7 % (0.0-2.0); EOSINOPHIL % 0.6 % (0-5); GRANULOCYTE % 74.8 % (42.2-75.2); HEMATOCRIT 28.5 % (37-47); MEAN CORPUSCULAR HGB 30.7 PG (27.0-31.0); MEAN CORPUSCULAR HGB CONC 35.2 G/DL (33.0-37.0); MEAN CORPUSCULAR VOLUME 87.2 FL (81.0-99.0); MEAN PLATELET VOLUME 8.3 FL (7.4-10.4); PLATELET COUNT 198 /CUMM (130-400); RBC DISTRIBUTION WIDTH 14.3 % (11.5-14.5); RED BLOOD CELL CT 3.26 /CUMM (4.20-5.40); WHITE BLOOD CELL COUNT 28.8 /CUMM (4.8-10.8)
[2017-10-13 05:29] LABS: ABSOLUTE BASOPHIL COUNT 0.1 /CUMM (0.0-0.2); ABSOLUTE EOSINOPHIL COUNT 0.4 /CUMM (0.0-0.7); ABSOLUTE GRANULOCYTE CT 20.3 /CUMM (1.4-6.5); ABSOLUTE LYMPH COUNT 3.8 /CUMM (1.2-3.4); ABSOLUTE MONOCYTE COUNT 2.8 /CUMM (0.10-0.60); BASOPHIL % 0.3 % (0.0-2.0); EOSINOPHIL % 1.6 % (0-5); GRANULOCYTE % 73.9 % (42.2-75.2); HEMATOCRIT 28.4 % (37-47); MEAN CORPUSCULAR HGB 29.7 PG (27.0-31.0); MEAN CORPUSCULAR HGB CONC 33.3 G/DL (33.0-37.0); MEAN PLATELET VOLUME 7.8 FL (7.4-10.4); PLATELET COUNT 212 /CUMM (130-400); RBC DISTRIBUTION WIDTH 14.4 % (11.5-14.5); RED BLOOD CELL CT 3.19 /CUMM (4.20-5.40); WHITE BLOOD CELL COUNT 27.4 /CUMM (4.8-10.8)
--- NOTE | 2017-10-13 05:35 | PN- Resident CRCU ---
Jared Tucker 10/13/17 0534: Subjective HPI/CRCU Issues: Tm 96.8 heart rate 90-103 Pulse rate 18-20 Systolic blood pressure 119-167 Diastolic blood pressure 60-84 96% on 2 L nasal cannula Total input 2160 mL, output 1400 mL. She was comfortable this morning. She seems improved compared to yesterday. She did not have any chest pain, palpitations. Continues to have cough, which seems to have been improved compared to yesterday. Did not have any excess bleeding at the dressing site, as per the nursing staff. Did not have any fever. Continues to have pain in the right side of the chest, although the imaging has been unremarkable. Objective Vital Signs & I&O Last 8 Hrs of Vitals and I&O: Vital Signs Date Time Temp Pulse Resp B/P B/P Pulse O2 O2 Flow FiO2 Mean Ox Delivery Rate 10/13 0521 98 Nasal 2.0L Cannula 10/13 0400 99 Nasal 2.0L Cannula 10/13 0000 100 Nasal 2.0L Cannula 10/13 0000 96.0 95 20 150/60 100 Nasal 2.0L Cannula 10/12 2000 98 Nasal 2.0L Cannula 10/12 1951 94 Nasal 2.0L Cannula 10/12 1800 97 Nasal 2.0L Cannula 10/12 1800 97.2 92 28 162/84 100 Nasal 2.0L Cannula 10/12 1524 Nasal 2.0L Cannula 10/12 1200 98 Nasal 2.0L Cannula 10/12 1154 110 154/78 10/12 0842 96 Nasal 2.0L Cannula 10/12 0802 97.5 104 22 130/54 97 Room Air 10/12 0627 98.5 10/12 0624 98.7 105 36 150/60 96 Room Air Intake & Output 10/13 0800 10/13 0000 10/12 1600 Intake Total 1290 520 Output Total 700 300 Balance 590 220 Intake, Blood 300 320 Product Intake, IV 300 Intake, Oral 690 200 Output, Urine 700 300 Exam General Appearance: alert Other Physical Findings: General Exam: AAOx3, No acute distress, Skin: No rashes, dressing in place on the back ( couldnt examine the wound, as she was in a lot of pain);HEENT: PERRLA , EOMI;Neck: Supple, No JVD; No cervical lymphadenopathy;CVS: Reg Rate, Normal S1,S2, No MGR;Resp: Normal air entry, no ronchi/rales;Abdomen: Soft, No tenderness, Normal Bowel Sounds;Neuro: Normal Speech, Strength 5/5 b/l x 4 extremities, Sensation intact, CN III-XII NL, Reflexes 2+;Extremities: No cyanosis,1 + pedal edema Weaning Parameters NIF: 37 Minute Volume: 9.5 Resp rate: 22 Vt: 432 Heart Rate: 93 Weaning Schedule Start Time: 0812 Minute Volume: 10.2 Resp Rate: 17 Vt: 325 Heart Rate: 92 End Time: 1012 Minute Volume: 10.7 Resp Rate: 24 Vt: 400 Heart Rate: 95 Current Medications: Current Medications Sig/Clementine Start time Last Medication Dose Route Stop Time Status Admin Albuterol Sulfate 3 ML TID 10/07 2100 AC 10/13 INH 1153 Artificial Tears 2 GTT 4 TIMES/DAY 10/10 2100 AC 10/13 OPH 0802 Bisacodyl 5 MG DAILY 10/13 0845 AC 10/13 PO 1138 Budesonide/ 2 PUF BID 10/08 2100 AC 10/13 Formoterol Fumarate INH 0846 Diclofenac Sodium 1 ALVARO 4 TIMES/DAY 10/11 1300 AC 10/13 TOP 0846 Diltiazem HCl 120 MG DAILY 10/12 0900 AC 10/13 PO 0750 Furosemide 20 MG ONCE ONE 10/12 1845 DC 10/12 IV 10/12 1846 1908 Guaifenesin 10 ML Q6P PRN 10/12 2030 AC 10/12 PO 2022 Guaifenesin 600 MG Q12 10/08 2100 AC 10/13 PO 0845 Heparin Sodium 5,000 UNIT Q8 10/13 1400 AC (Porcine) SC Hydrocodone Bitart/ 1 TAB Q4 HRS NEEDED PRN 10/10 0715 AC 10/11 Acetaminophen PO 1448 Hydrocodone Bitart/ 2 TAB Q4 HRS NEEDED PRN 10/10 0715 AC 10/13 Acetaminophen PO 0750 Insulin Aspart 0 TIDAC 10/13 1200 AC 10/13 SC 1142 Insulin Aspart 0 TIDAC 10/10 1200 DC 10/12 SC 1646 Insulin Human Regular 0 Q6 10/13 0745 DC 10/13 SC 0750 Ipratropium [place] 2.5 ML TID 10/07 2100 AC 10/13 INH 0518 Losartan Potassium 25 MG DAILY 10/10 1121 AC 10/13 PO 0845 Magnesium Oxide 400 MG BID 10/12 2100 DC 10/13 PO 10/13 0901 0845 Montelukast Sodium 10 MG AT BEDTIME 10/08 2100 AC 10/12 PO 2114 Morphine Sulfate 2 MG Q3P PRN 10/08 1345 AC 10/13 IV 1138 Ondansetron HCl 4 MG Q6P PRN 10/07 1945 AC 10/08 IV 0950 Pantoprazole Sodium 40 MG DAILY 10/08 0900 AC 10/13 IV 0845 Polyethylene Glycol 17 GM DAILY 10/09 1115 AC 10/13 PO 0845 Promethazine HCl 12.5 MG Q6P PRN 10/07 1945 AC 10/12 IV 10/14 1859 1641 Senna/Docusate Sodium 2 TAB DAILY 10/13 0900 AC 10/13 PO 1138 Senna/Docusate Sodium 2 TAB DAILY PRN 10/09 1115 DC 10/11 PO 10/13 0859 2258 Vancomycin HCl 1,000 MG Q12H 10/12 0400 DC 10/12 Sodium Chloride 250 ML IV 10/13 0359 1620 Impression/Plan Impression/Problem List Impression: Ms Eduardo is a 71-year-old woman with PMHx of Asthma, COPD not on home oxygen, history of multiple admissions for MRSA pneumonia, HTN, HLD, T2DM, TIA on Plavix , insomnia, GERD, osteoarthritis, carpal tunnel syndrome, PVD, bilateral lung nodules, 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 Hospital course was complicated by a prolonged surgery for approximately 9 hrs, with blood loss of approximately 1200 ml intraoperatively. She was under continuous neurophysiological monitoring. She received propofol and fentanyl. As per the note, she was significantly bradycardic and had into junctional rhythm. She was also found to be hypotensive during the surgery requiring more than 5 L of normal saline resuscitation, and was started on epinephrine drip with resolution of her junctional rhythm now in sinus bradycardia. She was transfered to the ICU for the managment of post operative repiratory failure, and was successfully extubated without any complications. She was found to have DVT in right arm, which was attributed to prolonged surgery, and was started on xarelto after consulting vascular surgery. After she was more hemodynamically stable, she was transfered to floor for further management under surgical service. Daily ins and outs were monitored closely in the ICU,and was found to have decreasing CLARIBEL drain output from the surgical site, with eventual discontinuation of CLARIBEL drains by the surgery. She was found to have an acute drop in H&H, and had severe bleeding from the surgical site. Problem list : -Severe lumbar spinal stenosis status post laminectomy on 10/07/2017 -Postoperative respiratory failure requiring mechanical ventilation -Intraoperative severe hypotension/circular tissue shock requiring pressor support -Intraoperative sinus bradycardia/junctional rhythm -Leukocytosis with bandemia without source of infection -Electrolyte imbalance -History of diabetes -History of severe COPD/asthma -History of TIA -History of hypertension Pertinent labs in the last 24 hrs: WBC 24.01 (10/08/2017)-->19.8 (10/10/2017)--> 27.4 (10/13) Hemoglobin 11.2 (10/08/2017)-->8.8 (10/10/2017)-->7.8 (10/12)--> post 2 PRBC tx 9.4 (10/13) Platelet count 180k Sodium 137, K 4.3 BUN 13, creatinine 0.6. Magnesium 1.6, phosphorus 2.9, Problem list: #1 postoperative day 3 laminectomy #2 deep venous thrombosis right upper extremity #3 anemia, likely acute blood loss #4 hypomagnesemia 1. Respiratory: Stable at this time. She was tx'ed w/ Solumedrol briefly. She' s currently on 2 L nasal cannula supplemental oxygen, which could be tapered down today as tolerated. Continue guaifenesin, beta agonists. 2. Infectious: Leukocytosis. Likely multifactorial in her case, with hematological cause likely. She also received Solu-Medrol recently. She was on vancomycin for prophylaxis, as per orthopedics. -Continue to monitor daily CBCs. -Continue to monitor for any signs of infection. -Daily wound check, as per surgery. 3. Circulatory-rate controlled. Currently normal sinus rhythm. Currently on Cardizem and Cozaar. No echocardiogram at this time as per the assembly instructions writer. -Restart aspirin after discussing with the assembly instructions writer. 4. Hematology: Noted to have a drop in H&H, likely due to bleeding from the surgery site. Would recheck her H&H in the p.m., and would transfuse to keep it about 8. Given her recent surgery, she probably is not appropriately responding to loss of blood. - Recheck CBC q12hr. In regards to treatment of DVT, difficulty decision to the surgeon to continue the DOAC at this time. As per the vascular/surgical service who opted to leave the PICC line in place. Would defer the decision of PICC line management to surgical service. -AC as per surgery. Risks vs benefits discussed w/ the pt. -Ideally, she should be started on iv heparin and transitioned to lovenox/ coumdin -Heparin sc has been started by the surgical service. -Guiac negative. 5. Metabolic stable at this time. Blood sugars in the range of 200-300s. Range NovoLog sliding scale coverage from medium to high. 6. Alimentary-tolerating diet well. Bowel regimen ordered. Gi was consulted by the overnight team. Informed the surgical team. 7. Neurology-pain control with Vicodin as per surgical service. ICU checklist: DVT prophylaxis-pharmacological. GI prophylaxis-Protonix. #1 Central line- PICC line in place. Would defer the decision to the #2 Arterial line- none( removed ) #3 Castillo catheter ( in place ) #4 Rectal tube ( none ) #5 NG tube ( none ) #6 IV/peripheral line- in place. #7 IV drips ( none ) #8 Vent settings: ( none ) #9 pressors ( none ) Problem List: 1. DVT (deep venous thrombosis) Pain Ratin Tomorrow's Labs & Rationales: cbc bep Plan DVT/Prophylaxis: pharmacological Oleg Kahn MD 10/13/17 1115: Attending MD Review Statement Attending Sign Off Attending Cosign Statement: I have: examined this patient, reviewed [employer] EMR data, personally reviewd images, discussd w/resident/PA/[employer] W[employer]OW [employer]AME MAKER, discussed mgmt plan w/anna marie, discussed mgmt plan w/CM, discussed mgmt plan w/pt, agreed w/resident/PA/[employer] W[employer]OW FRAME [employer]KER, amended to note. Other Findings: Impression 71 year old woman * extensive back surgery * acute blood loss anemia, likely surgical site * RUE DVT * hx of asthma * hx of MRSA pna * leukocytosis - etiology is steroids, vs inflammatory, vs infectious, vs ? hematological disorder Plan Respiratory -trc/nebs -monitor saturations ID -per surgical team, has been on vancomycin, given leukocytosis, it would be reasonable to consider ID consultation, will d/w surgical team CVS -f/u cardiology recommendations Heme -monitor cbc, platelets -a/c is held -once appropriate from the surgical point of view, a/c should be restarted, however agents with reversibility should be considered -f/u vascular sx -continue picc line per vascular surgery - RUE DVT and PICC line management per vascular Metabolic -ins/outs -creatinine/electrolyte monitoring Alimentary -per surgery -GI has been consulted as well given blood loss Neuro -pain control DVT prophylaxis at all times TTS 35 min
--- NOTE | 2017-10-13 05:56 | PN- Orthopedic ---
See Addendum Subjective Subjective: Awake and alert this morning Seems much improved from yesterday States that she doesn't remember everything that happened yesterday but she feels much better Coughing overnight and now having a breathing treatment Still complaining of pain at the right lower chest/upper quadrant area which has been present since surgery Objective Vital Signs and I&Os Vital Signs Date Time Temp Pulse Resp B/P B/P Pulse O2 O2 Flow FiO2 Mean Ox Delivery Rate 10/13 0521 98 Nasal 2.0L Cannula 10/13 0400 99 Nasal 2.0L Cannula 10/13 0000 100 Nasal 2.0L Cannula 10/13 0000 96.0 95 20 150/60 100 Nasal 2.0L Cannula 10/13 1999 98 Nasal 2.0L Cannula 10/12 1951 94 Nasal 2.0L Cannula 10/12 1800 97 Nasal 2.0L Cannula 10/12 1800 97.2 92 28 162/84 100 Nasal 2.0L Cannula 10/12 1524 Nasal 2.0L Cannula 10/12 1200 98 Nasal 2.0L Cannula 10/12 1154 110 154/78 10/12 0842 96 Nasal 2.0L Cannula 10/12 0802 97.5 104 22 130/54 97 Room Air 10/12 0627 98.5 10/12 0624 98.7 105 36 150/60 96 Room Air Intake & Output 10/13 0800 10/13 0000 10/12 1600 10/12 0800 10/12 0000 10/11 1600 Intake Total 1290 520 850 440 Output Total 700 300 350 350 600 Balance 590 220 500 -350 -160 Intake, Blood 300 320 Product Intake, IV 300 850 40 Intake, Oral 690 200 400 Output, 100 Drainage Output, Urine 700 300 350 250 600 Physical Exam: afebrile, vss Sat 99% on 2L General: alert and oriented times three Chest: decreased sounds at bases bilaterally, no r/r/w, RRR Abd: soft, good bs Ext: 1-2+ edema all 4 ext, PICC in RUE Wd: - dressing was just changed 15 minutes ago by nursing - she states that the dressing was wet with bloody drainage but it did not soak through to the entire dressing. Per RN no active drainage from the CLARIBEL site Assessment/Plan Assessment/Plan 71yo female s/p lumbar fusion 10/07 and RUE dvt who was transferred to ICU secondary to profuse bleeding/anemia from site ysterday now greatly improved. Numerous transfusions -total of 4 units yesterday Hct this morning stable at 28 Holding xarelto Vascular surgery recommending asa/hep sc if possible - Right sided pain likely secondary to positioning in the OR - ambulation will help Pain management OOB today Core Measures Venous Thromboembolism VTE Risk Factors Age>40 No Mechanical VTE Prophylaxis d/t N/A MechProphylax Ordered No VTE Pharm Prophylaxis d/t Surgical Contraindication (initially)
[2017-10-13 08:00] VITALS: BP 178/60
--- NOTE | 2017-10-13 09:07 | PN- Neurosurgical ---
Surgical Brief Attending Note Brief Attending Note: Postoperative day #6 Much more awake and alert and conversant No new deficits H&H appears stable Continue workup for flank pain
--- NOTE | 2017-10-13 14:41 | Cons- Gastroenterology ---
General Information and HPI Consulting Request Date of Consult: 10/13/17 Requested By: Dania HARRIS,Ray Rose Reason for Consult: Acute drop in H&H Source of Information: patient, electronic medical record Exam Limitations: no limitations History of Present Illness: B: Ms Eduardo is a 71-year-old female status post major lumbar laminectomy and fusion procedure who developed a right upper extremity DVT due to a PICC line and who is on Xarelto. This was diagnosed by Doppler ultrasound results are as follows. FINDINGS: There is a right PICC line in place. There is occlusive thrombus within the right brachial veins and basilic vein. Study limited secondary to bandages. The right internal jugular vein, imaged innominate vein, subclavian vein, and axillary vein remain patent. The cephalic vein remains patent. IMPRESSION: Positive study. Right PICC line in place with occlusive thrombus within the mid to distal right brachial veins and the basilic vein Patient has past medical history significant for asthma, COPD not on home oxygen. She has had multiple admissions for MRSA pneumonia, hypertension, hyperlipidemia, diabetes mellitus, TIA on Plavix, insomnia, GERD, osteoarthritis , carpal tunnel syndrome, peripheral vascular disease, bilateral lung nodules, and a previously occluded right internal carotid artery, chronic back pain for which she underwent spinal fusion in 2012. Ms. Eduardo was admitted to the surgical service on 10/06/2017 for severe back pain, and claudication, found to have severe spinal stenosis requiring laminectomy on 10/07/2017. She underwent prolonged surgery and had general anesthesia for prolonged period of time. On 10/07 Ms. Eduardo had significant bleeding from her CLARIBEL site that required transfusion of 2 units of blood. The morning after she was seen by vascular surgery. At that time her viral signs were stable and she was alert and oriented times three. She reports that she had soaked many gauze pads after the CLARIBEL drain was removed and ultimately require transfusion of another 2 units of blood. Her H&H has been stable for the past 3 days. She denies melena or bright red blood per rectum. She had some mild nausea and vomiting which has resolved. She is had no fever or shaking chills. She of fact has had no bowel movement since admission and is recently been given MiraLAX and feels that she may need to move her bowels within the next several hours. She underwent a CT scan of the abdomen and pelvis which did not show a retroperitoneal hematoma. Allergies/Medications Allergies: Coded Allergies: Sulfa (Sulfonamide Antibiotics) (Intermediate, SKIN TURNS PURPLE/HOT 09/24/17) Penicillins (Mild, ITCHING 09/24/17) aspirin (HX GASTRITIS 10/06/17) ASA->BLEEDING atorvastatin (PER PT MED LIST 09/24/17) prednisone (Severe, VISION CHANGES 09/24/17) Uncoded Allergies: ENVIRONMENTAL (UNKNOWN 07/20/13) MULTIPLE ANTIBIOTICS (UNKNOWN 07/20/13) Home Med List: Acetaminophen (8HR Arthritis Pain Relief) 650 MG TABLET.ER 2 TAB PO QHS PAIN (Reported) Albuterol Sulfate (Proair Hfa) 90 MCG HFA.AER.AD 2 PUF INH PRN ASTHMA/ ALLERGIES (Reported) Ascorbate Calcium (Vitamin C) 500 MG TABLET 1 TAB PO DAILY SUPPLEMENT ( Reported) Azelastine/Fluticasone (Dymista Nasal [place]) 137 MCG-50 MCG/SPRAY SPRAY.PUMP 1 SPRAY NASB PRN ALLERGIES (Reported) Budesonide/Formoterol Fumarate (Symbicort 160-4.5 Mcg Inhaler) 160 MCG-4.5 MCG/ ACTUATION HFA.AER.AD 2 PUFF INH BID ASTHMA/ALLERGIES (Reported) Cetirizine HCl (Zyrtec) 10 MG CAPSULE 1 CAP PO DAILY ALLERGIES (Reported) Cholecalciferol (Vitamin D3) (Vitamin D) 1,000 UNIT TABLET 1 TAB PO DAILY SUPPLEMENT (Reported) Clopidogrel Bisulfate (Plavix) 75 MG TABLET 1 TAB PO DAILY ANTICOAGULATION ( Reported) Cyclobenzaprine HCl 5 MG TABLET 1 TAB PO QHS MUSCLE SPASMS (Reported) Diltiazem HCl (Cartia Xt) 120 MG CAP.ER.24H 1 CAP PO DAILY CARDIAC (Reported) Docusate Sodium (Colace) 100 MG CAPSULE 1 CAP PO BID STOOL SOFTENER (Reported ) Gabapentin 300 MG CAPSULE 1 CAP PO PRN PAIN (Reported) Glimepiride 2 MG TABLET 1.5 TAB PO DAILY DM (Reported) Iron Carb,Gl/FA/B12/C/Docusate (Ferralet 90 Tablet) 90 MG-1 MG-12 MCG-120 MG-50 MG TABLET 1 TAB PO DAILY SUPPLEMENT (Reported) Losartan Potassium (Cozaar) 25 MG TABLET 1 TAB PO DAILY HTN (Reported) Magnesium Oxide (Magnesium) (Unknown Strength) CAPSULE (Unknown Dose) PO TID SUPPLEMENT (Reported) Melatonin 10 MG CAPSULE 1 CAP PO QPM SLEEP (Reported) Montelukast Sodium (Singulair) 10 MG TABLET 1 TAB PO DAILY ALLERGIES ( Reported) Multiple Vitamin (Multivitamins) 1 EACH TABLET 1 TAB PO DAILY SUPPLEMENT ( Reported) Multivit-Min/FA/Lutein/Zeaxant (Macular Vitamin Tablet) 500 MCG-5 MG-1 MG TABLET 1 TAB PO DAILY SUPPLEMENT (Reported) Omeprazole 40 MG CAPSULE.DR 1 CAP PO DAILY AC GERD (Reported) Sitagliptin Phosphate (Januvia) 100 MG TABLET 1 TAB PO DAILY DM (Reported) Tobramycin (Tobrex) 0.3 % DROPS 2 GTT OPH TID EYE (Reported) Current Medications: Current Medications Sig/Clementine Start time Last Medication Dose Route Stop Time Status Admin Albuterol Sulfate 3 ML TID 10/07 2100 AC 10/13 INH 1153 Artificial Tears 2 GTT 4 TIMES/DAY 10/10 2100 AC 10/13 OPH 1420 Bisacodyl 5 MG DAILY 10/13 0845 AC 10/13 PO 1138 Budesonide/ 2 PUF BID 10/08 2100 AC 10/13 Formoterol Fumarate INH 0846 Diclofenac Sodium 1 ALVARO 4 TIMES/DAY 10/11 1300 AC 10/13 TOP 1420 Diltiazem HCl 120 MG DAILY 10/12 0900 AC 10/13 PO 0750 Furosemide 20 MG ONCE ONE 10/12 1845 DC 10/12 IV 10/12 1846 1908 Guaifenesin 10 ML Q6P PRN 10/12 2030 AC 10/12 PO 2022 Guaifenesin 600 MG Q12 10/08 2100 AC 10/13 PO 0845 Heparin Sodium 5,000 UNIT Q8 10/13 1400 AC 10/13 (Porcine) SC 1420 Hydrocodone Bitart/ 1 TAB Q4 HRS NEEDED PRN 10/10 0715 AC 10/11 Acetaminophen PO 1448 Hydrocodone Bitart/ 2 TAB Q4 HRS NEEDED PRN 10/10 0715 AC 10/13 Acetaminophen PO 1422 Insulin Aspart 0 TIDAC 10/13 1200 AC 10/13 SC 1142 Insulin Aspart 0 TIDAC 10/10 1200 DC 10/12 SC 1646 Insulin Human Regular 0 Q6 10/13 0745 DC 10/13 SC 0750 Ipratropium [place] 2.5 ML TID 10/07 2100 AC 10/13 INH 0518 Losartan Potassium 25 MG DAILY 10/10 1121 AC 10/13 PO 0845 Magnesium Oxide 400 MG BID 10/12 2100 DC 10/13 PO 10/13 0901 0845 Montelukast Sodium 10 MG AT BEDTIME 10/08 2100 AC 10/12 PO 2114 Morphine Sulfate 4 MG .STK-MED ONE 10/13 0508 DC IM 10/13 0509 Morphine Sulfate 2 MG Q3P PRN 10/08 1345 AC 10/13 IV 1138 Ondansetron HCl 4 MG Q6P PRN 10/07 1945 AC 10/08 IV 0950 Pantoprazole Sodium 40 MG DAILY 10/08 0900 AC 10/13 IV 0845 Polyethylene Glycol 17 GM DAILY 10/09 1115 AC 10/13 PO 0845 Promethazine HCl 12.5 MG Q6P PRN 10/07 1945 AC 10/12 IV 10/14 1859 1641 Senna/Docusate Sodium 2 TAB DAILY 10/13 0900 AC 10/13 PO 1138 Senna/Docusate Sodium 2 TAB DAILY PRN 10/09 1115 DC 10/11 PO 10/13 0859 2258 Vancomycin HCl 1,000 MG Q12H 10/12 0400 DC 10/12 Sodium Chloride 250 ML IV 10/13 0359 1620 Past History Medical History Blood Transfusion Hx: No Neurological: TIA EENT: NONE Cardiovascular: hypertension, hyperlipidemia, CAROTID ARTERY STENOSIS Respiratory: asthma, bronchitis, COPD, MRSA PNA Gastrointestinal: GERD Hepatic: STEATOSIS OF LIVER Renal: NONE Musculoskeletal: osteoarthritis, chronic back pain s/p spinal fusion; OA CARPAL TUNNEL Psychiatric: NONE Endocrine: NIDDM Blood Disorders: NONE Cancer(s): NONE 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 Home Who Do You Live With? spouse Primary Language: Turkmen Smoking Status: Never Smoked ETOH Use: denies use Illicit Drug Use: denies illicit drug use Living Will? unknown Power of Junior Engineer/HCP? unknown Name of POA/HCP: Dr. Rollins Other Social History: Not relevant Functional Ability ADLs Independent: dressing. Ambulation: independent IADLs Independent: shopping. Employment History Employment: Retired Profession/Employer: not applicable Exam & Diagnostic Data Vital Signs and I&O Vital Signs Date Time Temp Pulse Resp B/P B/P Pulse O2 O2 Flow FiO2 Mean Ox Delivery Rate 10/13 1153 96 Nasal 2.0L Cannula 10/13 0845 95 171/55 10/13 0800 97.4 92 23 178/60 100 Nasal 2.0L Cannula 10/13 0800 99 Nasal 2.0L Cannula 10/13 0521 98 Nasal 2.0L Cannula 10/13 0400 99 Nasal 2.0L Cannula 10/13 0000 100 Nasal 2.0L Cannula 10/13 0000 96.0 95 20 150/60 100 Nasal 2.0L Cannula 10/12 2000 98 Nasal 2.0L Cannula 10/12 1951 94 Nasal 2.0L Cannula 10/12 1800 97 Nasal 2.0L Cannula 10/12 1800 97.2 92 28 162/84 100 Nasal 2.0L Cannula 10/12 1524 Nasal 2.0L Cannula Intake & Output 10/13 1600 10/13 0400 10/12 1600 10/12 0400 10/11 1600 10/11 0400 Intake Total 400 1290 1370 690 Output Total 400 700 313 507 3444 250 Balance 0 590 720 -350 -710 -250 Intake, Blood 300 320 Product Intake, IV 300 850 290 Intake, Oral 400 690 200 400 Output, 100 50 Drainage Output, Urine 400 700 729 100 1720 250 Physical Exam General Appearance: well developed/nourished, no apparent distress Head: atraumatic, normal appearance Eyes: Bilateral: normal appearance. Neck: normal inspection, supple Respiratory: lungs clear Cardiovascular: regular rate/rhythm Gastrointestinal: normal bowel sounds, soft, non-tender, no organomegaly Extremities: normal inspection Neurologic/Psych: awake, alert, oriented x 3, normal mood/affect Skin: intact, normal color, warm/dry Results Pertinent Lab Results: Laboratory Tests 10/13 10/13 0430 0030 Chemistry Sodium (137 - 145 mmol/L) 131 L 132 L Potassium (3.5 - 5.1 mmol/L) 4.6 4.6 Chloride (98 - 107 mmol/L) 96 L 96 L Carbon Dioxide (22 - 30 mmol/L) 29 28 Anion Gap (5 - 16) 6 8 BUN (7 - 17 mg/dL) 36 H 38 H Creatinine (0.5 - 1.0 mg/dL) 0.9 1.0 Estimated GFR (>60 ml/min) > 60 54 L Glucose (65 - 99 mg/dL) 162 H 184 H Calcium (8.4 - 10.2 mg/dL) 7.4 L 7.4 L Phosphorus (2.5 - 4.5 mg/dL) 4.6 H 4.4 Magnesium (1.6 - 2.3 mg/dL) 1.6 1.5 L Total Bilirubin (0.2 - 1.3 mg/dL) 0.5 0.4 AST (14 - 36 U/L) 16 16 ALT (9 - 52 U/L) 40 39 Albumin (3.5 - 5.0 g/dL) 2.3 L 2.2 L Hematology CBC w Diff MAN DIFF ORDERED WBC (4.8 - 10.8 /CUMM) 27.4 H RBC (4.20 - 5.40 /CUMM) 3.19 L Hgb (12.0 - 16.0 G/DL) 9.4 L Hct (37 - 47 %) 28.4 L MCV (81.0 - 99.0 FL) 89.0 MCH (27.0 - 31.0 PG) 29.7 MCHC (33.0 - 37.0 G/DL) 33.3 RDW (11.5 - 14.5 %) 14.4 Plt Count (130 - 400 /CUMM) 212 MPV (7.4 - 10.4 FL) 7.8 Gran % (42.2 - 75.2 %) 73.9 Lymphocytes % (20.5 - 51.1 %) 13.9 L Monocytes % (1.7 - 9.3 %) 10.3 H Eosinophils % (0 - 5 %) 1.6 Basophils % (0.0 - 2.0 %) 0.3 Absolute Granulocytes (1.4 - 6.5 /CUMM) 20.3 H Segmented Neutrophils (42.2 - 75.2 %) 74 Band Neutrophils (0.0 - 5.0 %) 4 Absolute Lymphocytes (1.2 - 3.4 /CUMM) 3.8 H Lymphocytes (20.5 - 51.1 %) 13 L Monocytes (1.7 - 9.3 %) 5 Absolute Monocytes (0.10 - 0.60 /CUMM) 2.8 H Eosinophils (0 - 5.0 %) 4 Absolute Eosinophils (0.0 - 0.7 /CUMM) 0.4 Absolute Basophils (0.0 - 0.2 /CUMM) 0.1 Nucleated RBCs (0.0 - 0.0 /100WBC) 1 H Platelet Estimate (ADEQUATE) ADEQUATE Polychromasia 1+ Basophilic Stippling 1+ Anisocytosis 1+ Elliptocytes FEW 10/12 10/12 2350 2000 Chemistry Sodium Cancelled Potassium Cancelled Chloride Cancelled Carbon Dioxide Cancelled Anion Gap Cancelled BUN Cancelled Creatinine Cancelled BUN/Creatinine Ratio Cancelled Hematology CBC w Diff MAN DIFF ORDERED WBC (4.8 - 10.8 /CUMM) 28.8 H RBC (4.20 - 5.40 /CUMM) 3.26 L Hgb (12.0 - 16.0 G/DL) 10.0 L Hct (37 - 47 %) 28.5 L MCV (81.0 - 99.0 FL) 87.2 MCH (27.0 - 31.0 PG) 30.7 MCHC (33.0 - 37.0 G/DL) 35.2 RDW (11.5 - 14.5 %) 14.3 Plt Count (130 - 400 /CUMM) 198 MPV (7.4 - 10.4 FL) 8.3 Gran % (42.2 - 75.2 %) 74.8 Lymphocytes % (20.5 - 51.1 %) 15.2 L Monocytes % (1.7 - 9.3 %) 8.7 Eosinophils % (0 - 5 %) 0.6 Basophils % (0.0 - 2.0 %) 0.7 Absolute Granulocytes (1.4 - 6.5 /CUMM) 21.5 H Segmented Neutrophils (42.2 - 75.2 %) 66 Band Neutrophils (0.0 - 5.0 %) 2 Absolute Lymphocytes (1.2 - 3.4 /CUMM) 4.4 H Lymphocytes (20.5 - 51.1 %) 15 L Monocytes (1.7 - 9.3 %) 12 H Absolute Monocytes (0.10 - 0.60 /CUMM) 2.5 H Eosinophils (0 - 5.0 %) 1 Absolute Eosinophils (0.0 - 0.7 /CUMM) 0.2 Absolute Basophils (0.0 - 0.2 /CUMM) 0.2 Metamyelocytes (0.0 - 1.0 %) 3 H Myelocytes (0 - 0 %) 1 H Platelet Estimate (ADEQUATE) ADEQUATE Polychromasia 1+ Basophilic Stippling RARE Anisocytosis 1+ Stomatocytes 1+ Dane Cells FEW Elliptocytes FEW 10/12 10/12 1840 1840 Urines Urinalysis MOD H Urine Color (YEL,AMB,STR) YEL Urine Clarity (CLEAR) CLEAR Urine pH (5.0 - 8.0) 6.0 Ur Specific [place] (1.001 - 1.035) 1.015 Urine Protein (NEG,<30 MG/DL) NEG Urine Ketones (NEG) NEG Urine Nitrite (NEG) NEG Urine Bilirubin (NEG) NEG Urine Urobilinogen (0.1 - 1.0 EU/dl) 0.2 Ur Leukocyte Esterase (NEG) NEG Ur Microscopic SEDIMENT EXAMINED Urine RBC (0 - 5 /HPF) 1-3 Urine WBC (0 - 2 /HPF) 1-3 H Ur Epithelial Cells (NONE,FEW) MOD H Urine Hemoglobin (NEG) TRACE-INTACT Ur Random Creatinine (mg/dL) 87.1 Ur Random Sodium (30 - 90 mmol/L) 5 L Ur Random Potassium (mmol/L) 70.0 Fraction Sodium Excret (<1% %) 0.0 Urine Glucose (N MG/DL) NEG 10/12 10/12 1700 0912 Chemistry Sodium (137 - 145 mmol/L) 128 L Potassium (3.5 - 5.1 mmol/L) 5.2 H Chloride (98 - 107 mmol/L) 94 L Carbon Dioxide (22 - 30 mmol/L) 27 Anion Gap (5 - 16) 7 BUN (7 - 17 mg/dL) 35 H Creatinine (0.5 - 1.0 mg/dL) 0.9 Estimated GFR (>60 ml/min) > 60 Glucose (65 - 99 mg/dL) 226 H Serum Osmolality (285 - 295 MOSM/KG) 291 Lactic Acid (0.7 - 2.1 mmol/L) 1.6 Calcium (8.4 - 10.2 mg/dL) 7.3 L Phosphorus (2.5 - 4.5 mg/dL) 4.8 H Magnesium (1.6 - 2.3 mg/dL) 1.5 L Total Bilirubin (0.2 - 1.3 mg/dL) 0.4 AST (14 - 36 U/L) 19 ALT (9 - 52 U/L) 40 Albumin (3.5 - 5.0 g/dL) 2.3 L Hematology CBC w Diff NO MAN DIFF REQ WBC (4.8 - 10.8 /CUMM) 29.2 H RBC (4.20 - 5.40 /CUMM) 3.14 L Hgb (12.0 - 16.0 G/DL) 9.2 L Hct (37 - 47 %) 27.5 L MCV (81.0 - 99.0 FL) 87.7 MCH (27.0 - 31.0 PG) 29.2 MCHC (33.0 - 37.0 G/DL) 33.3 RDW (11.5 - 14.5 %) 14.2 Plt Count (130 - 400 /CUMM) 207 MPV (7.4 - 10.4 FL) 8.2 Gran % (42.2 - 75.2 %) 80.6 H Lymphocytes % (20.5 - 51.1 %) 11.5 L Monocytes % (1.7 - 9.3 %) 7.8 Eosinophils % (0 - 5 %) 0.1 Basophils % (0.0 - 2.0 %) 0 Absolute Granulocytes (1.4 - 6.5 /CUMM) 23.5 H Absolute Lymphocytes (1.2 - 3.4 /CUMM) 3.4 Absolute Monocytes (0.10 - 0.60 /CUMM) 2.3 H Absolute Eosinophils (0.0 - 0.7 /CUMM) 0 Absolute Basophils (0.0 - 0.2 /CUMM) 0 10/12 10/12 0912 0550 Chemistry Sodium (137 - 145 mmol/L) 133 L 134 L Potassium (3.5 - 5.1 mmol/L) 5.0 4.4 Chloride (98 - 107 mmol/L) 100 99 Carbon Dioxide (22 - 30 mmol/L) 29 30 Anion Gap (5 - 16) 4 L 4 L BUN (7 - 17 mg/dL) 31 H 28 H Creatinine (0.5 - 1.0 mg/dL) 0.9 0.8 Estimated GFR (>60 ml/min) > 60 > 60 BUN/Creatinine Ratio (7 - 25 %) 35.0 H Glucose (65 - 99 mg/dL) 268 H Calcium (8.4 - 10.2 mg/dL) 7.5 L Phosphorus (2.5 - 4.5 mg/dL) 4.0 Magnesium (1.6 - 2.3 mg/dL) 1.4 L 1.4 L Total Bilirubin (0.2 - 1.3 mg/dL) 0.3 0.4 Direct Bilirubin (< 0.4 mg/dL) 0.3 AST (14 - 36 U/L) 21 23 ALT (9 - 52 U/L) 50 43 Alkaline Phosphatase (<127 U/L) 47 Lactate Dehydrogenase (313 - 618 U/L) 557 Total Protein (6.3 - 8.2 g/dL) 4.0 L Albumin (3.5 - 5.0 g/dL) 2.1 L 2.1 L Coagulation PT (9.4 - 12.5 SEC) 22.3 H INR (0.90 - 1.19) 2.03 H APTT (25 - 37 SEC) 26 Hematology CBC w Diff NO MAN DIFF REQ MAN DIFF ORDERED WBC (4.8 - 10.8 /CUMM) 20.8 H 18.3 H RBC (4.20 - 5.40 /CUMM) 2.67 L 2.90 L Hgb (12.0 - 16.0 G/DL) 7.8 L 8.2 L Hct (37 - 47 %) 22.7 L 25.0 L MCV (81.0 - 99.0 FL) 85.1 86.3 MCH (27.0 - 31.0 PG) 29.2 28.4 MCHC (33.0 - 37.0 G/DL) 34.3 32.9 L RDW (11.5 - 14.5 %) 14.1 14.1 Plt Count (130 - 400 /CUMM) 223 221 MPV (7.4 - 10.4 FL) 8.0 7.6 Gran % (42.2 - 75.2 %) 74.8 65.8 Lymphocytes % (20.5 - 51.1 %) 14.7 L 19.7 L Monocytes % (1.7 - 9.3 %) 8.8 11.6 H Eosinophils % (0 - 5 %) 1.6 2.4 Basophils % (0.0 - 2.0 %) 0.1 0.5 Absolute Granulocytes (1.4 - 6.5 /CUMM) 15.6 H 12.0 H Segmented Neutrophils (42.2 - 75.2 %) 71 Band Neutrophils (0.0 - 5.0 %) 1 Absolute Lymphocytes (1.2 - 3.4 /CUMM) 3.1 3.6 H Lymphocytes (20.5 - 51.1 %) 16 L Monocytes (1.7 - 9.3 %) 10 H Absolute Monocytes (0.10 - 0.60 /CUMM) 1.8 H 2.1 H Eosinophils (0 - 5.0 %) 2 Absolute Eosinophils (0.0 - 0.7 /CUMM) 0.3 0.4 Absolute Basophils (0.0 - 0.2 /CUMM) 0 0.1 Platelet Estimate (ADEQUATE) ADEQUATE Polychromasia 1+ Hypochromic-Microcytic 1+ Poikilocytosis 1+ Ovalocytes 1+ Other Body Source Fld Total RBCs Counted (%) 100 10/11 10/11 1900 0640 Chemistry Sodium (137 - 145 mmol/L) 137 Potassium (3.5 - 5.1 mmol/L) 4.5 Chloride (98 - 107 mmol/L) 98 Carbon Dioxide (22 - 30 mmol/L) 32 H Anion Gap (5 - 16) 7 BUN (7 - 17 mg/dL) 21 H Creatinine (0.5 - 1.0 mg/dL) 0.7 Estimated GFR (>60 ml/min) > 60 BUN/Creatinine Ratio (7 - 25 %) 30.0 H Hematology CBC w Diff NO MAN DIFF REQ NO MAN DIFF REQ WBC (4.8 - 10.8 /CUMM) 14.9 H 17.6 H RBC (4.20 - 5.40 /CUMM) 2.63 L 2.90 L Hgb (12.0 - 16.0 G/DL) 7.6 L 8.3 L Hct (37 - 47 %) 22.8 L 25.2 L MCV (81.0 - 99.0 FL) 86.5 87.1 MCH (27.0 - 31.0 PG) 28.8 28.7 MCHC (33.0 - 37.0 G/DL) 33.3 33.0 RDW (11.5 - 14.5 %) 14.1 13.6 Plt Count (130 - 400 /CUMM) 275 244 MPV (7.4 - 10.4 FL) 7.5 8.1 Gran % (42.2 - 75.2 %) 69.8 80.8 H Lymphocytes % (20.5 - 51.1 %) 19.5 L 11.3 L Monocytes % (1.7 - 9.3 %) 9.5 H 7.7 Eosinophils % (0 - 5 %) 0.9 0 Basophils % (0.0 - 2.0 %) 0.3 0.2 Absolute Granulocytes (1.4 - 6.5 /CUMM) 10.4 H 14.2 H Absolute Lymphocytes (1.2 - 3.4 /CUMM) 2.9 2.0 Absolute Monocytes (0.10 - 0.60 /CUMM) 1.4 H 1.3 H Absolute Eosinophils (0.0 - 0.7 /CUMM) 0.1 0 Absolute Basophils (0.0 - 0.2 /CUMM) 0 0 10/11 2015 Hematology CBC w Diff NO MAN DIFF REQ WBC (4.8 - 10.8 /CUMM) 17.8 H RBC (4.20 - 5.40 /CUMM) 2.95 L Hgb (12.0 - 16.0 G/DL) 8.6 L Hct (37 - 47 %) 25.6 L MCV (81.0 - 99.0 FL) 86.7 MCH (27.0 - 31.0 PG) 29.0 MCHC (33.0 - 37.0 G/DL) 33.5 RDW (11.5 - 14.5 %) 13.8 Plt Count (130 - 400 /CUMM) 231 MPV (7.4 - 10.4 FL) 8.1 Gran % (42.2 - 75.2 %) 90.6 H Lymphocytes % (20.5 - 51.1 %) 5.2 L Monocytes % (1.7 - 9.3 %) 4.2 Eosinophils % (0 - 5 %) 0 Basophils % (0.0 - 2.0 %) 0 Absolute Granulocytes (1.4 - 6.5 /CUMM) 16.1 H Absolute Lymphocytes (1.2 - 3.4 /CUMM) 0.9 L Absolute Monocytes (0.10 - 0.60 /CUMM) 0.8 H Absolute Eosinophils (0.0 - 0.7 /CUMM) 0 Absolute Basophils (0.0 - 0.2 /CUMM) 0 Assessment/Plan Assessment/Recommendations: ASSESSMENT: 1. Acute drop in H&H 2. Large volume bleeding from CLARIBEL drain 3. Status post lumbar laminectomy RECOMMENDATIONS: Given that there is a source of blood loss which was acute as well as the fact the patient's H&H has been stable for 3 days with no luminal GI blood losses I do not believe that any GI evaluation is necessary at this time. Should patient have evidence of active luminal GI bleeding, either melena or bright red blood per rectum or nausea vomiting and hematemesis we will be more than happy to investigate endoscopically. However given recent lumbar laminectomy I am hesitant to term patient back and forth in the immediate postoperative state especially with little evidence for GI bleeding. I discussed this with surgery who does not feel that he GI consult is needed at this time as well as with the medical house staff. We will be more than happy to come back should there be any change in her clinical condition. Meantime GI will sign off for now. Consult Acknowledgment - Thank you for your consult request.
[2017-10-13 16:00] VITALS: BP 140/70
--- NOTE | 2017-10-13 17:22 | PN- Cardiology ---
Subjective Subjective: No chest pain. No shortness of breath. Minimal bleeding noted. No nausea or vomiting. No lightheadedness or dizziness. Objective Vital Signs and I&Os Vital Signs Date Time Temp Pulse Resp B/P B/P Pulse O2 O2 Flow FiO2 Mean Ox Delivery Rate 10/13 1600 100 Nasal 2.0L Cannula 10/13 1600 98.8 88 16 140/70 100 Nasal 2.0L Cannula 10/13 1153 96 Nasal 2.0L Cannula 10/13 0845 95 171/55 10/13 0800 97.4 92 23 178/60 100 Nasal 2.0L Cannula 10/13 0800 99 Nasal 2.0L Cannula 10/13 0521 98 Nasal 2.0L Cannula 10/13 0400 99 Nasal 2.0L Cannula 10/13 0000 100 Nasal 2.0L Cannula 10/13 0000 96.0 95 20 150/60 100 Nasal 2.0L Cannula 10/13 1999 98 Nasal 2.0L Cannula 10/12 1951 94 Nasal 2.0L Cannula 10/12 1800 97 Nasal 2.0L Cannula 10/12 1800 97.2 92 28 162/84 100 Nasal 2.0L Cannula Intake & Output 10/13 1600 10/13 0800 10/13 0000 10/12 1600 10/12 0800 10/12 0000 Intake Total 037 708 1485 520 850 Output Total 400 400 700 300 350 350 Balance 120 0 590 220 500 -350 Intake, Blood 300 320 Product Intake, IV 80 300 850 Intake, Oral 440 400 690 200 Number 0 Bowel Movements Output, 100 Drainage Output, Urine 400 400 700 300 350 250 Physical Exam: Gen: NAD HEENT: normal Lungs: clear to auscultation, normal resp. effort Heart: RRR, S1, S2, 1/6 systolic murmur Abdomen: Soft, nontender, no masses Extremities: No clubbing, cyanosis, or edema. Neuro: Alert and oriented x 3, cranial nerves intact Current Medications: Current Medications Sig/Clementine Start time Last Medication Dose Route Stop Time Status Admin Albuterol Sulfate 3 ML TID 10/07 2099 AC 10/13 INH 1153 Artificial Tears 2 GTT 4 TIMES/DAY 10/10 OPH 1643 Bisacodyl 5 MG DAILY 10/13 08 AC 10/13 PO 1138 Budesonide/ 2 PUF BID 04/26 2100 AC 05/01 Formoterol Fumarate INH 0846 Diclofenac Sodium 1 ALVARO 4 TIMES/DAY 10/11 1300 AC 10/13 TOP 1420 Diltiazem HCl 120 MG DAILY 10/12 0900 AC 10/13 PO 0750 Furosemide 20 MG ONCE ONE 10/12 1845 DC 10/12 IV 10/12 1846 1908 Guaifenesin 10 ML Q6P PRN 10/12 2030 AC 10/12 PO 2022 Guaifenesin 600 MG Q12 10/08 2100 AC 10/13 PO 0845 Heparin Sodium 5,000 UNIT Q8 10/13 1400 AC 10/13 (Porcine) SC 1420 Hydrocodone Bitart/ 1 TAB Q4 HRS NEEDED PRN 10/10 0715 AC 10/11 Acetaminophen PO 1448 Hydrocodone Bitart/ 2 TAB Q4 HRS NEEDED PRN 10/10 0715 AC 10/13 Acetaminophen PO 1422 Insulin Aspart 0 TIDAC 10/13 1200 AC 10/13 SC 1643 Insulin Aspart 0 TIDAC 10/10 1200 DC 10/12 SC 1646 Insulin Human Regular 0 Q6 10/13 0745 DC 10/13 SC 0750 Ipratropium [place] 2.5 ML TID 10/07 2100 AC 10/13 INH 0518 Losartan Potassium 25 MG DAILY 10/10 1121 AC 10/13 PO 0845 Magnesium Oxide 400 MG BID 10/12 2100 DC 10/13 PO 10/13 0901 0845 Montelukast Sodium 10 MG AT BEDTIME 10/08 2100 AC 10/12 PO 2114 Morphine Sulfate 4 MG .STK-MED ONE 10/13 0508 DC IM 10/13 0509 Morphine Sulfate 2 MG Q3P PRN 10/08 1345 AC 10/13 IV 1138 Ondansetron HCl 4 MG Q6P PRN 10/07 194 AC 10/08 IV 0950 Pantoprazole Sodium 40 MG DAILY 10/08 0900 AC 10/13 IV 0845 Polyethylene Glycol 17 GM DAILY 10/09 1115 AC 10/13 PO 0845 Promethazine HCl 12.5 MG Q6P PRN 10/07 194 AC 10/12 IV 10/14 1859 1641 Senna/Docusate Sodium 2 TAB DAILY 10/13 0900 AC 10/13 PO 1138 Senna/Docusate Sodium 2 TAB DAILY PRN 10/09 1115 DC 10/11 PO 10/13 0859 2258 Vancomycin HCl 1,000 MG Q12H 10/120 DC 10/12 Sodium Chloride 250 ML IV 10/13 0359 1620 Results Last 48 Hrs of Labs/Mics: Laboratory Tests 10/13/17 0430: Anion Gap 6, Estimated GFR > 60, Glucose 162 H, Calcium 7.4 L, Phosphorus 4.6 H, Magnesium 1.6, Total Bilirubin 0.5, AST 16, ALT 40, Albumin 2.3 L, CBC w Diff MAN DIFF ORDERED, RBC 3.19 L, MCV 89.0, MCH 29.7, MCHC 33.3, RDW 14.4, MPV 7.8, Gran % 73.9, Lymphocytes % 13.9 L, Monocytes % 10.3 H, Eosinophils % 1.6, Basophils % 0.3, Absolute Granulocytes 20.3 H, Segmented Neutrophils 74, Band Neutrophils 4, Absolute Lymphocytes 3.8 H, Lymphocytes 13 L, Monocytes 5, Absolute Monocytes 2.8 H, Eosinophils 4, Absolute Eosinophils 0.4, Absolute Basophils 0.1, Nucleated RBCs 1 H, Platelet Estimate ADEQUATE, Polychromasia 1+ , Basophilic Stippling 1+, Anisocytosis 1+, Elliptocytes FEW 10/13/17 0030: Anion Gap 8, Estimated GFR 54 L, Glucose 184 H, Calcium 7.4 L, Phosphorus 4.4 , Magnesium 1.5 L, Total Bilirubin 0.4, AST 16, ALT 39, Albumin 2.2 L 10/12/17 2350: CBC w Diff MAN DIFF ORDERED, RBC 3.26 L, MCV 87.2, MCH 30.7, MCHC 35.2, RDW 14.3, MPV 8.3, Gran % 74.8, Lymphocytes % 15.2 L, Monocytes % 8.7, Eosinophils % 0.6, Basophils % 0.7, Absolute Granulocytes 21.5 H, Segmented Neutrophils 66, Band Neutrophils 2, Absolute Lymphocytes 4.4 H, Lymphocytes 15 L, Monocytes 12 H, Absolute Monocytes 2.5 H, Eosinophils 1, Absolute Eosinophils 0.2, Absolute Basophils 0.2, Metamyelocytes 3 H, Myelocytes 1 H, Platelet Estimate ADEQUATE, Polychromasia 1+, Basophilic Stippling RARE, Anisocytosis 1+, Stomatocytes 1+, [place] Cells FEW, Elliptocytes FEW 10/12/171999: Sodium Cancelled, Potassium Cancelled, Chloride Cancelled, Carbon Dioxide Cancelled, Anion Gap Cancelled, BUN Cancelled, Creatinine Cancelled, BUN/ Creatinine Ratio Cancelled 10/12/171839: Urinalysis MOD H, Urine Color YEL, Urine Clarity CLEAR, Urine pH 6.0, Ur Specific [place] 1.015, Urine Protein NEG, Urine Ketones NEG, Urine Nitrite NEG, Urine Bilirubin NEG, Urine Urobilinogen 0.2, Ur Leukocyte Esterase NEG, Ur Microscopic SEDIMENT EXAMINED, Urine RBC 1-3, Urine WBC 1-3 H, Ur Epithelial Cells MOD H, Urine Hemoglobin TRACE-INTACT, Urine Glucose NEG 10/12/171839: Ur Random Creatinine 87.1, Ur Random Sodium 5 L, Ur Random Potassium 70.0, Fraction Sodium Excret 0.0 10/12/17 1700: Anion Gap 7, Estimated GFR > 60, Glucose 226 H, Serum Osmolality 291, Calcium 7.3 L, Phosphorus 4.8 H, Magnesium 1.5 L, Total Bilirubin 0.4, AST 19, ALT 40 , Albumin 2.3 L, CBC w Diff NO MAN DIFF REQ, RBC 3.14 L, MCV 87.7, MCH 29.2, MCHC 33.3, RDW 14.2, MPV 8.2, Gran % 80.6 H, Lymphocytes % 11.5 L, Monocytes % 7.8, Eosinophils % 0.1, Basophils % 0, Absolute Granulocytes 23.5 H, Absolute Lymphocytes 3.4, Absolute Monocytes 2.3 H, Absolute Eosinophils 0, Absolute Basophils 0 10/12/17 0912: Lactic Acid 1.6 10/12/17 0912: Anion Gap 4 L, Estimated GFR > 60, Glucose 268 H, Calcium 7.5 L, Phosphorus 4.0, Magnesium 1.4 L, Total Bilirubin 0.3, AST 21, ALT 50, Albumin 2.1 L, PT 22.3 H, INR 2.03 H, APTT 26, CBC w Diff NO MAN DIFF REQ, RBC 2.67 L, MCV 85.1 , MCH 29.2, MCHC 34.3, RDW 14.1, MPV 8.0, Gran % 74.8, Lymphocytes % 14.7 L, Monocytes % 8.8, Eosinophils % 1.6, Basophils % 0.1, Absolute Granulocytes 15.6 H, Absolute Lymphocytes 3.1, Absolute Monocytes 1.8 H, Absolute Eosinophils 0.3 , Absolute Basophils 0 10/12/17 0550: Anion Gap 4 L, Estimated GFR > 60, BUN/Creatinine Ratio 35.0 H, Magnesium 1.4 L, Total Bilirubin 0.4, Direct Bilirubin 0.3, AST 23, ALT 43, Alkaline Phosphatase 47, Lactate Dehydrogenase 557, Total Protein 4.0 L, Albumin 2.1 L, CBC w Diff MAN DIFF ORDERED, RBC 2.90 L, MCV 86.3, MCH 28.4, MCHC 32.9 L, RDW 14.1, MPV 7.6, Gran % 65.8, Lymphocytes % 19.7 L, Monocytes % 11.6 H, Eosinophils % 2.4, Basophils % 0.5, Absolute Granulocytes 12.0 H, Segmented Neutrophils 71, Band Neutrophils 1, Absolute Lymphocytes 3.6 H, Lymphocytes 16 L, Monocytes 10 H, Absolute Monocytes 2.1 H, Eosinophils 2, Absolute Eosinophils 0.4, Absolute Basophils 0.1, Platelet Estimate ADEQUATE, Polychromasia 1+, Hypochromic-Microcytic 1+, Poikilocytosis 1+, Ovalocytes 1+, Fld Total RBCs Counted 100 10/11/17 1900: CBC w Diff NO MAN DIFF REQ, RBC 2.63 L, MCV 86.5, MCH 28.8, MCHC 33.3, RDW 14.1 , MPV 7.5, Gran % 69.8, Lymphocytes % 19.5 L, Monocytes % 9.5 H, Eosinophils % 0.9, Basophils % 0.3, Absolute Granulocytes 10.4 H, Absolute Lymphocytes 2.9, Absolute Monocytes 1.4 H, Absolute Eosinophils 0.1, Absolute Basophils 0 Microbiology 10/12 0900 GI: Surveillance Culture - COMP Assessment/Plan Assessment/Plan Assessment: 1. Status post back fusion surgery 2. Intraoperative and postoperative bradycardia and hypotension, improved 3. Acute blood loss anemia on Xarelto 4. Left upper extremity deep vein thrombus Plan: * Anticoagulation on hold for acute bleeding * Recommend low-dose aspirin and subcutaneous heparin if possible. * Continue diltiazem and losartan Continue telemetry? Yes
[2017-10-13 19:03] LABS: ABSOLUTE BASOPHIL COUNT 0.1 /CUMM (0.0-0.2); ABSOLUTE EOSINOPHIL COUNT 0.4 /CUMM (0.0-0.7); ABSOLUTE GRANULOCYTE CT 18.7 /CUMM (1.4-6.5); ABSOLUTE LYMPH COUNT 2.8 /CUMM (1.2-3.4); ABSOLUTE MONOCYTE COUNT 1.3 /CUMM (0.10-0.60); BASOPHIL % 0.3 % (0.0-2.0); EOSINOPHIL % 1.8 % (0-5); GRANULOCYTE % 80.3 % (42.2-75.2); HEMATOCRIT 25.3 % (37-47); MEAN CORPUSCULAR HGB CONC 33.6 G/DL (33.0-37.0); MEAN CORPUSCULAR VOLUME 89.2 FL (81.0-99.0); MEAN PLATELET VOLUME 7.8 FL (7.4-10.4); PLATELET COUNT 217 /CUMM (130-400); RBC DISTRIBUTION WIDTH 14.6 % (11.5-14.5); RED BLOOD CELL CT 2.84 /CUMM (4.20-5.40); WHITE BLOOD CELL COUNT 23.3 /CUMM (4.8-10.8)
[2017-10-14] VITALS: BP 144/60
--- NOTE | 2017-10-14 05:38 | PN- Neurosurgical ---
Subjective Subjective: PT ASLEEP IN BED. UPON WAKING, SHE COMPLAINS OF STILL RIGHT SIDE ABD PAIN. STILL NOT MUCH OF AN APPETITE. WAS OOB TO CHAIR YESTERDAY. dENIES PARESTHESIAS VOIDED OVERNIGHT MANY TIMES DUE TO LASIX. DENIES SOB/CP. HAD SOME MILD SOB LAST NIGHT BUT NOT SURE IF THE BREATHIUNG TREATMENT OR THE LASIX HELPED MORE RN states that she changed the dressing 2 hours ago and that the dressing was completely dry and that the incision looked dry with no drainage or surrounding erythema Objective Vital Signs and I&Os Vital Signs Date Time Temp Pulse Resp B/P B/P Pulse O2 O2 Flow FiO2 Mean Ox Delivery Rate 10/14 0400 100 Nasal 2.0L Cannula 10/14 0045 99 Nasal 2.0L Cannula 10/14 0000 98.7 80 20 144/60 98 Nasal 2.0L Cannula 10/14 0000 98 Nasal 2.0L Cannula 10/13 2019 96 Room Air Room Air 10/13 2000 Room Air 10/13 1600 100 Nasal 2.0L Cannula 10/13 1600 98.8 88 16 140/70 100 Nasal 2.0L Cannula 10/13 1153 96 Nasal 2.0L Cannula 10/13 0845 95 171/55 10/13 0800 97.4 92 23 178/60 100 Nasal 2.0L Cannula 10/13 0800 99 Nasal 2.0L Cannula Intake & Output 10/14 0810/14 0000 10/13 1600 10/13 0800 10/13 0000 10/12 1600 Intake Total 940 166 511 5251 520 Output Total 600 400 400 700 300 Balance 340 120 0 590 220 Intake, Blood 300 300 320 Product Intake, IV 80 300 Intake, Oral 640 440 400 690 200 Number 0 Bowel Movements Output, Urine 600 400 400 700 300 Physical Exam: GEN- NAD RESP- CLEAR, GOOD EFFORT CARDIAC- RRR ABD-ND, SOFT, TENDER IN RUQ AND MID ABDOMEN. NO REBOUND EXT- WARM AND DRY, NO PITTING EDEMA, SENSORY AND MOTOR FUNCTION INTACT DISTALLY Current Medications: Current Medications Sig/Clementine Start time Last Medication Dose Route Stop Time Status Admin Albuterol Sulfate 3 ML TID 10/07 2099 AC 10/14 INH 0042 Artificial Tears 2 GTT 4 TIMES/DAY 10/10 OPH 2037 Bisacodyl 5 MG DAILY 10/13 844 AC 10/13 PO 1138 Budesonide/ 2 PUF BID 10/08 2100 AC 10/13 Formoterol Fumarate INH 2037 Diclofenac Sodium 1 ALVARO 4 TIMES/DAY 10/11 1300 AC 10/13 TOP 1420 Diltiazem HCl 120 MG DAILY 10/12 0900 AC 10/13 PO 0750 Furosemide 20 MG ONCE ONE 10/14 0100 DC 10/14 IV 10/14 0101 0050 Guaifenesin 10 ML Q6P PRN 10/12 2030 AC 10/13 PO 2159 Guaifenesin 600 MG Q12 10/08 2100 AC 10/13 PO 2037 Heparin Sodium 5,000 UNIT Q8 10/13 1400 AC 10/13 (Porcine) SC 2036 Hydrocodone Bitart/ 1 TAB Q4 HRS NEEDED PRN 10/10 0715 AC 10/11 Acetaminophen PO 1448 Hydrocodone Bitart/ 2 TAB Q4 HRS NEEDED PRN 10/10 0715 AC 10/13 Acetaminophen PO 2320 Insulin Aspart 0 TIDAC 10/13 1200 AC 10/13 SC 1643 Insulin Aspart 0 TIDAC 10/10 1200 DC 10/12 SC 1646 Insulin Human Regular 0 Q6 10/13 0745 DC 10/13 SC 0750 Ipratropium [place] 2.5 ML TID 10/07 2100 AC 10/14 INH 0045 Lidocaine 1 PAT DAILY 10/13 1813 AC 10/13 EXT 2036 Losartan Potassium 25 MG DAILY 10/10 1121 AC 10/13 PO 0845 Magnesium Oxide 400 MG BID 10/12 2100 DC 10/13 PO 10/13 0901 0845 Montelukast Sodium 10 MG AT BEDTIME 10/08 2100 AC 10/13 PO 2037 Morphine Sulfate 2 MG Q3P PRN 10/08 1345 AC 10/13 IV 1138 Ondansetron HCl 4 MG Q6P PRN 10/07 1945 AC 10/08 IV 0950 Pantoprazole Sodium 40 MG DAILY 10/08 0900 AC 10/13 IV 0845 Polyethylene Glycol 17 GM DAILY 10/09 1115 AC 10/13 PO 0845 Promethazine HCl 12.5 MG Q6P PRN 10/07 1945 AC 10/12 IV 10/14 1859 1641 Senna/Docusate Sodium 2 TAB DAILY 10/13 0900 AC 10/13 PO 1138 Senna/Docusate Sodium 2 TAB DAILY PRN 10/09 1115 DC 10/11 PO 10/13 0859 2258 Results Last 48 Hours of Labs: Laboratory Tests 10/13 10/13 1810 8840 Chemistry Sodium (137 - 145 mmol/L) 131 L Potassium (3.5 - 5.1 mmol/L) 4.6 Chloride (98 - 107 mmol/L) 96 L Carbon Dioxide (22 - 30 mmol/L) 29 Anion Gap (5 - 16) 6 BUN (7 - 17 mg/dL) 36 H Creatinine (0.5 - 1.0 mg/dL) 0.9 Estimated GFR (>60 ml/min) > 60 Glucose (65 - 99 mg/dL) 162 H Calcium (8.4 - 10.2 mg/dL) 7.4 L Phosphorus (2.5 - 4.5 mg/dL) 4.6 H Magnesium (1.6 - 2.3 mg/dL) 1.6 Total Bilirubin (0.2 - 1.3 mg/dL) 0.5 AST (14 - 36 U/L) 16 ALT (9 - 52 U/L) 40 Albumin (3.5 - 5.0 g/dL) 2.3 L Hematology CBC w Diff MAN DIFF ORDERED MAN DIFF ORDERED WBC (4.8 - 10.8 /CUMM) 23.3 H 27.4 H RBC (4.20 - 5.40 /CUMM) 2.84 L 3.19 L Hgb (12.0 - 16.0 G/DL) 8.5 L 9.4 L Hct (37 - 47 %) 25.3 L 28.4 L MCV (81.0 - 99.0 FL) 89.2 89.0 MCH (27.0 - 31.0 PG) 30.0 29.7 MCHC (33.0 - 37.0 G/DL) 33.6 33.3 RDW (11.5 - 14.5 %) 14.6 H 14.4 Plt Count (130 - 400 /CUMM) 217 212 MPV (7.4 - 10.4 FL) 7.8 7.8 Gran % (42.2 - 75.2 %) 80.3 H 73.9 Lymphocytes % (20.5 - 51.1 %) 12.2 L 13.9 L Monocytes % (1.7 - 9.3 %) 5.4 10.3 H Eosinophils % (0 - 5 %) 1.8 1.6 Basophils % (0.0 - 2.0 %) 0.3 0.3 Absolute Granulocytes (1.4 - 6.5 /CUMM) 18.7 H 20.3 H Segmented Neutrophils (42.2 - 75.2 %) 80 H 74 Band Neutrophils (0.0 - 5.0 %) 1 4 Absolute Lymphocytes (1.2 - 3.4 /CUMM) 2.8 3.8 H Lymphocytes (20.5 - 51.1 %) 14 L 13 L Monocytes (1.7 - 9.3 %) 3 5 Absolute Monocytes (0.10 - 0.60 /CUMM) 1.3 H 2.8 H Eosinophils (0 - 5.0 %) 1 4 Absolute Eosinophils (0.0 - 0.7 /CUMM) 0.4 0.4 Absolute Basophils (0.0 - 0.2 /CUMM) 0.1 0.1 Metamyelocytes (0.0 - 1.0 %) 1 Nucleated RBCs (0.0 - 0.0 /100WBC) 1 H Platelet Estimate (ADEQUATE) ADEQUATE ADEQUATE Polychromasia 1+ 1+ Basophilic Stippling 1+ Anisocytosis 1+ 1+ Elliptocytes FEW Other Body Source Fld Total RBCs Counted (%) 100 10/13 10/12 10/12 0030 2350 1999 Chemistry Sodium (137 - 145 mmol/L) 132 L Cancelled Potassium (3.5 - 5.1 mmol/L) 4.6 Cancelled Chloride (98 - 107 mmol/L) 96 L Cancelled Carbon Dioxide (22 - 30 mmol/L) 28 Cancelled Anion Gap (5 - 16) 8 Cancelled BUN (7 - 17 mg/dL) 38 H Cancelled Creatinine (0.5 - 1.0 mg/dL) 1.0 Cancelled Estimated GFR (>60 ml/min) 54 L BUN/Creatinine Ratio Cancelled Glucose (65 - 99 mg/dL) 184 H Calcium (8.4 - 10.2 mg/dL) 7.4 L Phosphorus (2.5 - 4.5 mg/dL) 4.4 Magnesium (1.6 - 2.3 mg/dL) 1.5 L Total Bilirubin (0.2 - 1.3 mg/dL) 0.4 AST (14 - 36 U/L) 16 ALT (9 - 52 U/L) 39 Albumin (3.5 - 5.0 g/dL) 2.2 L Hematology CBC w Diff MAN DIFF ORDERED WBC (4.8 - 10.8 /CUMM) 28.8 H RBC (4.20 - 5.40 /CUMM) 3.26 L Hgb (12.0 - 16.0 G/DL) 10.0 L Hct (37 - 47 %) 28.5 L MCV (81.0 - 99.0 FL) 87.2 MCH (27.0 - 31.0 PG) 30.7 MCHC (33.0 - 37.0 G/DL) 35.2 RDW (11.5 - 14.5 %) 14.3 Plt Count (130 - 400 /CUMM) 198 MPV (7.4 - 10.4 FL) 8.3 Gran % (42.2 - 75.2 %) 74.8 Lymphocytes % (20.5 - 51.1 %) 15.2 L Monocytes % (1.7 - 9.3 %) 8.7 Eosinophils % (0 - 5 %) 0.6 Basophils % (0.0 - 2.0 %) 0.7 Absolute Granulocytes (1.4 - 6.5 /CUMM) 21.5 H Segmented Neutrophils (42.2 - 75.2 %) 66 Band Neutrophils (0.0 - 5.0 %) 2 Absolute Lymphocytes (1.2 - 3.4 /CUMM) 4.4 H Lymphocytes (20.5 - 51.1 %) 15 L Monocytes (1.7 - 9.3 %) 12 H Absolute Monocytes (0.10 - 0.60 /CUMM) 2.5 H Eosinophils (0 - 5.0 %) 1 Absolute Eosinophils (0.0 - 0.7 /CUMM) 0.2 Absolute Basophils (0.0 - 0.2 /CUMM) 0.2 Metamyelocytes (0.0 - 1.0 %) 3 H Myelocytes (0 - 0 %) 1 H Platelet Estimate (ADEQUATE) ADEQUATE Polychromasia 1+ Basophilic Stippling RARE Anisocytosis 1+ Stomatocytes 1+ [place] Cells FEW Elliptocytes FEW 10/12 10/12 1840 1840 Urines Urinalysis MOD H Urine Color (YEL,AMB,STR) YEL Urine Clarity (CLEAR) CLEAR Urine pH (5.0 - 8.0) 6.0 Ur Specific [place] (1.001 - 1.035) 1.015 Urine Protein (NEG,<30 MG/DL) NEG Urine Ketones (NEG) NEG Urine Nitrite (NEG) NEG Urine Bilirubin (NEG) NEG Urine Urobilinogen (0.1 - 1.0 EU/dl) 0.2 Ur Leukocyte Esterase (NEG) NEG Ur Microscopic SEDIMENT EXAMINED Urine RBC (0 - 5 /HPF) 1-3 Urine WBC (0 - 2 /HPF) 1-3 H Ur Epithelial Cells (NONE,FEW) MOD H Urine Hemoglobin (NEG) TRACE-INTACT Ur Random Creatinine (mg/dL) 87.1 Ur Random Sodium (30 - 90 mmol/L) 5 L Ur Random Potassium (mmol/L) 70.0 Fraction Sodium Excret (<1% %) 0.0 Urine Glucose (N MG/DL) NEG 10/12 10/12 1700 0912 Chemistry Sodium (137 - 145 mmol/L) 128 L Potassium (3.5 - 5.1 mmol/L) 5.2 H Chloride (98 - 107 mmol/L) 94 L Carbon Dioxide (22 - 30 mmol/L) 27 Anion Gap (5 - 16) 7 BUN (7 - 17 mg/dL) 35 H Creatinine (0.5 - 1.0 mg/dL) 0.9 Estimated GFR (>60 ml/min) > 60 Glucose (65 - 99 mg/dL) 226 H Serum Osmolality (285 - 295 MOSM/KG) 291 Lactic Acid (0.7 - 2.1 mmol/L) 1.6 Calcium (8.4 - 10.2 mg/dL) 7.3 L Phosphorus (2.5 - 4.5 mg/dL) 4.8 H Magnesium (1.6 - 2.3 mg/dL) 1.5 L Total Bilirubin (0.2 - 1.3 mg/dL) 0.4 AST (14 - 36 U/L) 19 ALT (9 - 52 U/L) 40 Albumin (3.5 - 5.0 g/dL) 2.3 L Hematology CBC w Diff NO MAN DIFF REQ WBC (4.8 - 10.8 /CUMM) 29.2 H RBC (4.20 - 5.40 /CUMM) 3.14 L Hgb (12.0 - 16.0 G/DL) 9.2 L Hct (37 - 47 %) 27.5 L MCV (81.0 - 99.0 FL) 87.7 MCH (27.0 - 31.0 PG) 29.2 MCHC (33.0 - 37.0 G/DL) 33.3 RDW (11.5 - 14.5 %) 14.2 Plt Count (130 - 400 /CUMM) 207 MPV (7.4 - 10.4 FL) 8.2 Gran % (42.2 - 75.2 %) 80.6 H Lymphocytes % (20.5 - 51.1 %) 11.5 L Monocytes % (1.7 - 9.3 %) 7.8 Eosinophils % (0 - 5 %) 0.1 Basophils % (0.0 - 2.0 %) 0 Absolute Granulocytes (1.4 - 6.5 /CUMM) 23.5 H Absolute Lymphocytes (1.2 - 3.4 /CUMM) 3.4 Absolute Monocytes (0.10 - 0.60 /CUMM) 2.3 H Absolute Eosinophils (0.0 - 0.7 /CUMM) 0 Absolute Basophils (0.0 - 0.2 /CUMM) 0 10/12 10/12 0912 0550 Chemistry Sodium (137 - 145 mmol/L) 133 L 134 L Potassium (3.5 - 5.1 mmol/L) 5.0 4.4 Chloride (98 - 107 mmol/L) 100 99 Carbon Dioxide (22 - 30 mmol/L) 29 30 Anion Gap (5 - 16) 4 L 4 L BUN (7 - 17 mg/dL) 31 H 28 H Creatinine (0.5 - 1.0 mg/dL) 0.9 0.8 Estimated GFR (>60 ml/min) > 60 > 60 BUN/Creatinine Ratio (7 - 25 %) 35.0 H Glucose (65 - 99 mg/dL) 268 H Calcium (8.4 - 10.2 mg/dL) 7.5 L Phosphorus (2.5 - 4.5 mg/dL) 4.0 Magnesium (1.6 - 2.3 mg/dL) 1.4 L 1.4 L Total Bilirubin (0.2 - 1.3 mg/dL) 0.3 0.4 Direct Bilirubin (< 0.4 mg/dL) 0.3 AST (14 - 36 U/L) 21 23 ALT (9 - 52 U/L) 50 43 Alkaline Phosphatase (<127 U/L) 47 Lactate Dehydrogenase (313 - 618 U/L) 557 Total Protein (6.3 - 8.2 g/dL) 4.0 L Albumin (3.5 - 5.0 g/dL) 2.1 L 2.1 L Coagulation PT (9.4 - 12.5 SEC) 22.3 H INR (0.90 - 1.19) 2.03 H APTT (25 - 37 SEC) 26 Hematology CBC w Diff NO MAN DIFF REQ MAN DIFF ORDERED WBC (4.8 - 10.8 /CUMM) 20.8 H 18.3 H RBC (4.20 - 5.40 /CUMM) 2.67 L 2.90 L Hgb (12.0 - 16.0 G/DL) 7.8 L 8.2 L Hct (37 - 47 %) 22.7 L 25.0 L MCV (81.0 - 99.0 FL) 85.1 86.3 MCH (27.0 - 31.0 PG) 29.2 28.4 MCHC (33.0 - 37.0 G/DL) 34.3 32.9 L RDW (11.5 - 14.5 %) 14.1 14.1 Plt Count (130 - 400 /CUMM) 223 221 MPV (7.4 - 10.4 FL) 8.0 7.6 Gran % (42.2 - 75.2 %) 74.8 65.8 Lymphocytes % (20.5 - 51.1 %) 14.7 L 19.7 L Monocytes % (1.7 - 9.3 %) 8.8 11.6 H Eosinophils % (0 - 5 %) 1.6 2.4 Basophils % (0.0 - 2.0 %) 0.1 0.5 Absolute Granulocytes (1.4 - 6.5 /CUMM) 15.6 H 12.0 H Segmented Neutrophils (42.2 - 75.2 %) 71 Band Neutrophils (0.0 - 5.0 %) 1 Absolute Lymphocytes (1.2 - 3.4 /CUMM) 3.1 3.6 H Lymphocytes (20.5 - 51.1 %) 16 L Monocytes (1.7 - 9.3 %) 10 H Absolute Monocytes (0.10 - 0.60 /CUMM) 1.8 H 2.1 H Eosinophils (0 - 5.0 %) 2 Absolute Eosinophils (0.0 - 0.7 /CUMM) 0.3 0.4 Absolute Basophils (0.0 - 0.2 /CUMM) 0 0.1 Platelet Estimate (ADEQUATE) ADEQUATE Polychromasia 1+ Hypochromic-Microcytic 1+ Poikilocytosis 1+ Ovalocytes 1+ Other Body Source Fld Total RBCs Counted (%) 100 Assessment/Plan Assessment/Plan 71yo female s/p lumbar fusion 10/07 and RUE dvt who has got 2 units of pRBCs last night as H&H continues to drop, a total of 6units of pRBCs for acute blood loss anemia during this admission. Got 20mg lasix last night for SOB which seemed to have helped FU H&H this morning May consider another dose of lasix today if still with SOB Cont breathing treatments Holding xarelto Vascular surgery recommending asa/hep sc if possible - Right sided pain likely secondary to positioning in the OR - ambulation will help Pain management OOB today ALPS Core Measures Venous Thromboembolism VTE Risk Factors Age>40 No Mechanical VTE Prophylaxis d/t N/A MechProphylax Ordered No VTE Pharm Prophylaxis d/t Surgical Contraindication (initially)
[2017-10-14 06:22] LABS: ABSOLUTE BASOPHIL COUNT 0.1 /CUMM (0.0-0.2); ABSOLUTE EOSINOPHIL COUNT 0.6 /CUMM (0.0-0.7); ABSOLUTE GRANULOCYTE CT 14.2 /CUMM (1.4-6.5); ABSOLUTE LYMPH COUNT 2.8 /CUMM (1.2-3.4); ABSOLUTE MONOCYTE COUNT 1.5 /CUMM (0.10-0.60); BASOPHIL % 0.4 % (0.0-2.0); EOSINOPHIL % 3.2 % (0-5); GRANULOCYTE % 74.1 % (42.2-75.2); MEAN CORPUSCULAR HGB 29.4 PG (27.0-31.0); MEAN CORPUSCULAR HGB CONC 33.4 G/DL (33.0-37.0); MEAN PLATELET VOLUME 7.6 FL (7.4-10.4); PLATELET COUNT 197 /CUMM (130-400); RBC DISTRIBUTION WIDTH 14.7 % (11.5-14.5); WHITE BLOOD CELL COUNT 19.1 /CUMM (4.8-10.8)
[2017-10-14 06:27] LABS: HEMATOCRIT 31.9 % (37-47); RED BLOOD CELL CT 3.62 /CUMM (4.20-5.40)
--- NOTE | 2017-10-14 07:03 | PN- Resident CRCU ---
Jared Tucker 10/14/17 0702: Subjective HPI/CRCU Issues: Tm 99.4 heart rate 86-90 Pulse rate 12-28 Systolic blood pressure 135-187 Diastolic blood pressure 48-62 96% on 2 L nasal cannula Total input 1930 mL, output 3175 mL ( after she received 20mg lasix iv in the pm of 10/13/17) She was sleepy this morning when I saw her. She stated that she was more tired compared to yesterday. She also had dyspnea this a.m. She received 2 units of packed red blood cells overnight, and was also given a dose of Lasix because of which she had to use the bedpan overnight. Pain is adequately controlled. She did not have any weakness in her lower extremity is, paresthesia. As per the nursing note, the dressing was changed twice yesterday, and did not have any gross blood. It appeared dry. Objective Vital Signs & I&O Last 8 Hrs of Vitals and I&O: Intake & Output 10/14 0800 Intake Total 470 Output Total 2175 Balance -1705 Intake, Blood 350 Product Intake, Oral 120 Output, Urine 2175 Exam General Appearance: no apparent distress Other Physical Findings: General Exam: AAOx3, No acute distress, Skin: No rashes, dressing in place on the back ( couldnt examine the wound, as she was in a lot of pain);HEENT: PERRLA , EOMI;Neck: Supple, No JVD; No cervical lymphadenopathy;CVS: Reg Rate, Normal S1,S2, No MGR;Resp: decreased air entry, ronchi and rales found ;Abdomen: Soft, No tenderness, Normal Bowel Sounds;Neuro: Normal Speech, Strength 5/5 b/l x 4 extremities, Sensation intact, CN III-XII NL, Reflexes 2+;Extremities: No cyanosis,1 + pedal edema Weaning Parameters NIF: 37 Minute Volume: 9.5 Resp rate: 22 Vt: 432 Heart Rate: 93 Weaning Schedule Start Time: 0812 Minute Volume: 10.2 Resp Rate: 17 Vt: 325 Heart Rate: 92 End Time: 1012 Minute Volume: 10.7 Resp Rate: 24 Vt: 400 Heart Rate: 95 Current Medications: Current Medications Sig/Clementine Start time Last Medication Dose Route Stop Time Status Admin Albuterol Sulfate 3 ML TID 10/07 2100 AC 10/14 INH 1332 Artificial Tears 2 GTT 4 TIMES/DAY 10/10 2100 AC 10/14 OPH 1340 Bisacodyl 10 MG ONCE PRN 10/14 1245 AC 10/14 VA 1340 Bisacodyl 5 MG DAILY 10/13 0845 AC 10/14 PO 0945 Budesonide/ 2 PUF BID 10/08 2100 AC 10/14 Formoterol Fumarate INH 0806 Cyclobenzaprine HCl 5 MG BID 10/14 1030 AC 10/14 PO 1159 Diclofenac Sodium 1 ALVARO 4 TIMES/DAY 10/11 1300 AC 10/13 TOP 1420 Diltiazem HCl 120 MG DAILY 10/12 0900 AC 10/14 PO 0946 Furosemide 20 MG ONCE ONE 10/14 0100 DC 10/14 IV 10/14 0101 0050 Guaifenesin 10 ML .STK-MED ONE 10/13 2157 DC PO 10/13 215 Guaifenesin 10 ML Q6P PRN 10/12 2030 AC 10/13 PO 2159 Guaifenesin 600 MG Q12 10/08 2100 AC 10/14 PO 0946 Heparin Sodium 5,000 UNIT Q8 10/13 1400 AC 10/14 (Porcine) SC 1340 Hydrocodone Bitart/ 1 TAB Q4 HRS NEEDED PRN 10/10 0715 AC 10/11 Acetaminophen PO 1448 Hydrocodone Bitart/ 2 TAB Q4 HRS NEEDED PRN 10/10 0715 AC 10/14 Acetaminophen PO 0636 Insulin Aspart 0 TIDAC 10/13 1200 AC 10/14 SC 1200 Ipratropium [place] 2.5 ML TID 10/07 2100 AC 10/14 INH 1332 Lidocaine 1 PAT DAILY 10/13 1813 AC 10/14 EXT 0946 Losartan Potassium 25 MG DAILY 10/10 1121 AC 10/14 PO 0946 Magnesium Sulfate 1 GM ONCE ONE 10/14 0815 DC 10/14 Dextrose/Water 100 ML IV 10/14 1214 0946 Montelukast Sodium 10 MG AT BEDTIME 10/08 2100 AC 10/13 PO 2037 Morphine Sulfate 2 MG Q3P PRN 10/08 1345 AC 10/14 IV 1340 Ondansetron HCl 4 MG Q6P PRN 10/07 1945 AC 10/08 IV 0950 Pantoprazole Sodium 40 MG DAILY 10/08 0900 AC 10/14 IV 0947 Polyethylene Glycol 17 GM DAILY 10/09 1115 AC 10/14 PO 0946 Promethazine HCl 12.5 MG Q6P PRN 10/07 1944 AC 10/12 IV 10/14 1859 1641 Senna/Docusate Sodium 2 TAB DAILY 10/13 09 10/14 PO 0947 Impression/Plan Impression/Problem List Impression: Ms Eduardo is a 71-year-old woman with PMHx of Asthma, COPD not on home oxygen, history of multiple admissions for MRSA pneumonia, HTN, HLD, T2DM, TIA on Plavix , insomnia, GERD, osteoarthritis, carpal tunnel syndrome, PVD, bilateral lung nodules, 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 Hospital course was complicated by a prolonged surgery for approximately 9 hrs, with blood loss of approximately 1200 ml intraoperatively. She was under continuous neurophysiological monitoring. She received propofol and fentanyl. As per the note, she was significantly bradycardic and had into junctional rhythm. She was also found to be hypotensive during the surgery requiring more than 5 L of normal saline resuscitation, and was started on epinephrine drip with resolution of her junctional rhythm now in sinus bradycardia. She was transfered to the ICU for the managment of post operative repiratory failure, and was successfully extubated without any complications. She was found to have DVT in right arm, which was attributed to prolonged surgery, and was started on xarelto after consulting vascular surgery. After she was more hemodynamically stable, she was transfered to floor for further management under surgical service. Daily ins and outs were monitored closely in the ICU,and was found to have decreasing CLARIBEL drain output from the surgical site, with eventual discontinuation of CLARIBEL drains by the surgery. She was found to have an acute drop in H&H, and had severe bleeding from the surgical site. Problem list : Pertinent labs in the last 24 hrs: WBC 24.01 (10/08/2017)-->19.8 (10/10/2017)--> 27.4 (10/13) Hemoglobin 11.2 (10/08/2017)-->8.8 (10/10/2017)-->7.8 (10/12)--> post 2 PRBC tx 9.4 (10/13) Platelet count 180k Sodium 137, K 4.3 BUN 13, creatinine 0.6. Magnesium 1.6, phosphorus 2.9, Problem list: #1 postoperative day 7 laminectomy ( Severe lumbar spinal stenosis status post laminectomy on 10/07/2017) #2 deep venous thrombosis right upper extremity #3 anemia, likely acute blood loss #4 hypomagnesemia, electrolyte imbalance #5 history of diabetes #6 Postoperative respiratory failure requiring mechanical ventilation #7 Intraoperative severe hypotension/circular tissue shock requiring pressor support #8 Intraoperative sinus bradycardia/junctional rhythm #9 Leukocytosis with bandemia without source of infection #10 History of COPD #11 History of TIA #12 History of hypertension 1. Respiratory: Continues to have dyspnea, likely due to fluid overload. She was tx'ed w/ Solumedrol briefly. She's currently on 2 L nasal cannula supplemental oxygen, which could be tapered down today as tolerated. Continue guaifenesin, beta agonists. -She would likely need a dose of lasix this am. 2. Infectious: Leukocytosis. Likely multifactorial in her case, with hematological cause likely. She also received Solu-Medrol recently. She was on vancomycin for prophylaxis, as per orthopedics. -Continue to monitor daily CBCs. -Continue to monitor for any signs of infection. -Daily wound check, as per surgery. -Leucocytosis chornic, hematological cause likely ? CLL 3. Circulatory-rate controlled. Currently normal sinus rhythm. Currently on Cardizem and Cozaar. No echocardiogram at this time as per the sewer line repairer. -Restart aspirin after discussing with the sewer line repairer. 4. Hematology: Noted to have a drop in H&H, likely due to bleeding from the surgery site. Would recheck her H&H in the p.m., and would transfuse to keep it about 8. Given her recent surgery, she probably is not appropriately responding to loss of blood. - Recheck CBC q12hr. - Please dont overzealously transfuse, which would put her at a higher risk of fluid overload. In regards to treatment of DVT, difficulty decision to the surgeon to continue the DOAC at this time. As per the vascular/surgical service who opted to leave the PICC line in place. Would defer the decision of PICC line management to surgical service. -AC as per surgery. Risks vs benefits discussed w/ the pt. -Ideally, she should be started on iv heparin and transitioned to lovenox/ coumdin -Heparin sc has been started by the surgical service. -Guiac negative. 5. Metabolic stable at this time. Blood sugars in the range of 180-200. Range NovoLog sliding scale coverage from medium to high. 6. Alimentary-tolerating diet well. Bowel regimen ordered. Gi was consulted by the overnight team. Informed the surgical team. 7. Neurology-pain control with Vicodin as per surgical service. ICU checklist: DVT prophylaxis-pharmacological. GI prophylaxis-Protonix. #1 Central line- PICC line in place. Would defer the decision to the vascular to remove the line. #2 Arterial line- none( removed ) #3 Castillo catheter ( in place ) #4 Rectal tube ( none ) #5 NG tube ( none ) #6 IV/peripheral line- in place. #7 IV drips ( none ) #8 Vent settings: ( none ) #9 pressors ( none ) Problem List: 1. DVT (deep venous thrombosis) 2. Spondylosis of lumbar spine 3. Chronic pain 4. Leukocytosis 5. H/O carotid stenosis Pain Ratin Tomorrow's Labs & Rationales: cbc icu bundle. Plan DVT/Prophylaxis: pharmacological Oleg Kahn MD 10/14/17 1146: Attending MD Review Statement Attending Sign Off Attending Cosign Statement: I have: examined this patient, reviewed [facility] EMR data, personally reviewd images, discussd w/resident/PA/TELEVISION CAMERA OPERATOR, discussed mgmt plan w/anna marie, discussed mgmt plan w/CM, discussed mgmt plan w/pt, agreed w/resident/PA/TELEVISION CAMERA OPERATOR, amended to note. Other Findings: Impression 71 year old woman * extensive back surgery * acute blood loss anemia, likely surgical site * RUE DVT * hx of asthma * hx of MRSA pna * leukocytosis improved - etiology - ?hematological disorder Plan Respiratory -trc/nebs -monitor saturations ID -off abx, has chronically elevated leukocytosis, no indication for any infection at this time, continue to trend and inquire with hematology regarding pursuing a hematological workup CVS -f/u cardiology recommendations Heme -monitor cbc, platelets -a/c is held, once her hemoglobin is stable within 24-48 hours will hope to resume aspirin and heparin subcutaneously initially for prophylaxis if okay with surgery -f/u vascular sx regarding picc line/RUE DVT Metabolic -ins/outs -creatinine/electrolyte monitoring Alimentary -tolerating diet Neuro -pain control -add muscle relaxant (flexeril) takes on an outpatient basis, her pain seems to be related to this DVT prophylaxis at all times TTS 35 min The critical care team (Richa Kahn) - will assume the role of the attending of record from surgery for the duration of Mrs. Eduardo's ICU stay.
[2017-10-14 08:00] VITALS: BP 150/60
--- NOTE | 2017-10-14 08:22 | RADIOLOGY REPORT ---
EXAMINATION: XR PORTABLE CHEST CLINICAL INFORMATION: Abnormal lungs auscultation on exam. Rales and rhonchi. Fluid overload. Status post blood transfusion. COMPARISON: Chest radiograph 10/11/2017 TECHNIQUE: Portable frontal view of the chest was obtained. FINDINGS: Allowing for low lung volumes the lungs are clear without consolidation, edema, or effusion. No pneumothorax. A right-sided PICC is in stable position with tip overlying the central SVC. EKG leads overlie the chest. IMPRESSION: - No active disease in the chest. - Stable right-sided PICC.
--- NOTE | 2017-10-14 11:39 | PN- Cardiology ---
Subjective Subjective: Clinically, the patient is doing a bit better today. She remains extremely fatigued. She did not sleep well last night. She is continues to complain of right sided discomfort. Objective Vital Signs and I&Os Vital Signs Date Time Temp Pulse Resp B/P B/P Pulse O2 O2 Flow FiO2 Mean Ox Delivery Rate 10/14 0946 165/58 10/14 0859 97 Nasal 2.0L Cannula 10/14 0819 Nasal 2.0L Cannula 10/14 08 98.8 74 18 150/60 96 Nasal 2.0L Cannula 10/14 0800 96 Nasal 2.0L Cannula 10/14 0400 100 Nasal 2.0L Cannula 10/14 0045 99 Nasal 2.0L Cannula 10/14 0000 98.7 80 20 144/60 98 Nasal 2.0L Cannula 10/14 0000 98 Nasal 2.0L Cannula 10/13 2019 96 Room Air Room Air 10/13 2000 Room Air 10/13 1600 100 Nasal 2.0L Cannula 10/13 1600 98.8 88 16 140/70 100 Nasal 2.0L Cannula 10/13 1153 96 Nasal 2.0L Cannula Intake & Output 10/14 1600 10/14 0800 10/14 0000 10/13 1600 10/13 0800 10/13 0000 Intake Total 470 940 879 671 0152 Output Total 2175 600 400 400 700 Balance -1705 340 120 0 590 Intake, Blood 350 300 300 Product Intake, IV 80 300 Intake, Oral 120 640 440 400 690 Number 0 Bowel Movements Output, Urine 2175 600 400 400 700 Physical Exam: General Appearance: well developed/nourished, alert, awake, oriented, mild distress related to dyspnea Head: normal HEENT: Normal Neck: supple, JVP normal, carotid upstrokes normal bilaterally, no masses or thyromegaly Respiratory: chest non-tender, essentially clear to auscultation and percussion bilaterally Cardiovascular: regular rate/rhythm, normal S1, S2, 1-2/6 systolic murmur Abdomen: normal bowel sounds, soft, non-tender Extremities: normal inspection, right upper extremity bandaged, bilateral upper extremity edema noted Vascular: Pulses are 2+ and equal bilaterally Neurologic: Grossly normal/nonfocal Current Medications: Current Medications Sig/Clementine Start time Last Medication Dose Route Stop Time Status Admin Albuterol Sulfate 3 ML TID 10/07 2099 AC 05/02 INH 0854 Artificial Tears 2 GTT 4 TIMES/DAY 10/10 2100 AC 10/14 OPH 0947 Bisacodyl 5 MG DAILY 10/13 0845 AC 10/14 PO 0945 Budesonide/ 2 PUF BID 10/08 2100 AC 10/14 Formoterol Fumarate INH 0806 Cyclobenzaprine HCl 5 MG BID 10/14 1030 AC PO Diclofenac Sodium 1 ALVARO 4 TIMES/DAY 10/11 1300 AC 10/13 TOP 1420 Diltiazem HCl 120 MG DAILY 10/12 0900 AC 10/14 PO 0946 Furosemide 20 MG ONCE ONE 10/14 0100 DC 10/14 IV 10/14 0101 0050 Guaifenesin 10 ML .STK-MED ONE 10/13 2157 DC PO 10/13 2159 Guaifenesin 10 ML Q6P PRN 10/12 2030 AC 10/13 PO 2159 Guaifenesin 600 MG Q12 10/08 2100 AC 10/14 PO 0946 Heparin Sodium 5,000 UNIT Q8 10/13 1400 AC 10/14 (Porcine) SC 0626 Hydrocodone Bitart/ 1 TAB Q4 HRS NEEDED PRN 10/10 0715 AC 10/11 Acetaminophen PO 1448 Hydrocodone Bitart/ 2 TAB Q4 HRS NEEDED PRN 10/10 0715 AC 10/14 Acetaminophen PO 0636 Insulin Aspart 0 TIDAC 10/13 1200 AC 10/14 SC 0806 Ipratropium [place] 2.5 ML TID 10/07 2100 AC 10/14 INH 0855 Lidocaine 1 PAT DAILY 10/13 1813 AC 10/14 EXT 0946 Losartan Potassium 25 MG DAILY 10/10 1121 AC 10/14 PO 0946 Magnesium Sulfate 1 GM ONCE ONE 10/14 0815 AC 10/14 Dextrose/Water 100 ML IV 10/14 1214 0946 Montelukast Sodium 10 MG AT BEDTIME 10/08 2100 AC 10/13 PO 2037 Morphine Sulfate 2 MG Q3P PRN 10/08 1345 AC 10/14 IV 0806 Ondansetron HCl 4 MG Q6P PRN 10/07 194 AC 10/08 IV 0950 Pantoprazole Sodium 40 MG DAILY 10/08 0900 AC 10/14 IV 0947 Polyethylene Glycol 17 GM DAILY 10/09 1115 AC 10/14 PO 0946 Promethazine HCl 12.5 MG Q6P PRN 10/07 1945 AC 10/12 IV 10/14 1859 1641 Senna/Docusate Sodium 2 TAB DAILY 10/13 09 AC 10/14 PO 0947 Results Last 48 Hrs of Labs/Mics: Laboratory Tests 10/14/17 0540: Anion Gap 5, Estimated GFR > 60, Glucose 154 H, Calcium 7.9 L, Phosphorus 3.9, Magnesium 1.5 L, Total Bilirubin 0.5, AST 18, ALT 46, Albumin 2.4 L, CBC w Diff NO MAN DIFF REQ, RBC 3.62 L, MCV 88.0, MCH 29.4, MCHC 33.4, RDW 14.7 H, MPV 7.6, Gran % 74.1, Lymphocytes % 14.5 L, Monocytes % 7.8, Eosinophils % 3.2, Basophils % 0.4, Absolute Granulocytes 14.2 H, Absolute Lymphocytes 2.8, Absolute Monocytes 1.5 H, Absolute Eosinophils 0.6, Absolute Basophils 0.1 10/13/17 1810: CBC w Diff MAN DIFF ORDERED, RBC 2.84 L, MCV 89.2, MCH 30.0, MCHC 33.6, RDW 14.6 H, MPV 7.8, Gran % 80.3 H, Lymphocytes % 12.2 L, Monocytes % 5.4, Eosinophils % 1.8, Basophils % 0.3, Absolute Granulocytes 18.7 H, Segmented Neutrophils 80 H, Band Neutrophils 1, Absolute Lymphocytes 2.8, Lymphocytes 14 L, Monocytes 3, Absolute Monocytes 1.3 H, Eosinophils 1, Absolute Eosinophils 0.4, Absolute Basophils 0.1, Metamyelocytes 1, Platelet Estimate ADEQUATE, Polychromasia 1+, Anisocytosis 1+, Fld Total RBCs Counted 100 10/13/17 0430: Anion Gap 6, Estimated GFR > 60, Glucose 162 H, Calcium 7.4 L, Phosphorus 4.6 H, Magnesium 1.6, Total Bilirubin 0.5, AST 16, ALT 40, Albumin 2.3 L, CBC w Diff MAN DIFF ORDERED, RBC 3.19 L, MCV 89.0, MCH 29.7, MCHC 33.3, RDW 14.4, MPV 7.8, Gran % 73.9, Lymphocytes % 13.9 L, Monocytes % 10.3 H, Eosinophils % 1.6, Basophils % 0.3, Absolute Granulocytes 20.3 H, Segmented Neutrophils 74, Band Neutrophils 4, Absolute Lymphocytes 3.8 H, Lymphocytes 13 L, Monocytes 5, Absolute Monocytes 2.8 H, Eosinophils 4, Absolute Eosinophils 0.4, Absolute Basophils 0.1, Nucleated RBCs 1 H, Platelet Estimate ADEQUATE, Polychromasia 1+ , Basophilic Stippling 1+, Anisocytosis 1+, Elliptocytes FEW 10/13/17 0030: Anion Gap 8, Estimated GFR 54 L, Glucose 184 H, Calcium 7.4 L, Phosphorus 4.4 , Magnesium 1.5 L, Total Bilirubin 0.4, AST 16, ALT 39, Albumin 2.2 L 10/12/17 2350: CBC w Diff MAN DIFF ORDERED, RBC 3.26 L, MCV 87.2, MCH 30.7, MCHC 35.2, RDW 14.3, MPV 8.3, Gran % 74.8, Lymphocytes % 15.2 L, Monocytes % 8.7, Eosinophils % 0.6, Basophils % 0.7, Absolute Granulocytes 21.5 H, Segmented Neutrophils 66, Band Neutrophils 2, Absolute Lymphocytes 4.4 H, Lymphocytes 15 L, Monocytes 12 H, Absolute Monocytes 2.5 H, Eosinophils 1, Absolute Eosinophils 0.2, Absolute Basophils 0.2, Metamyelocytes 3 H, Myelocytes 1 H, Platelet Estimate ADEQUATE, Polychromasia 1+, Basophilic Stippling RARE, Anisocytosis 1+, Stomatocytes 1+, [place] Cells FEW, Elliptocytes FEW 10/12/17 2000: Sodium Cancelled, Potassium Cancelled, Chloride Cancelled, Carbon Dioxide Cancelled, Anion Gap Cancelled, BUN Cancelled, Creatinine Cancelled, BUN/ Creatinine Ratio Cancelled 10/12/17 184: Urinalysis MOD H, Urine Color YEL, Urine Clarity CLEAR, Urine pH 6.0, Ur Specific [place] 1.015, Urine Protein NEG, Urine Ketones NEG, Urine Nitrite NEG, Urine Bilirubin NEG, Urine Urobilinogen 0.2, Ur Leukocyte Esterase NEG, Ur Microscopic SEDIMENT EXAMINED, Urine RBC 1-3, Urine WBC 1-3 H, Ur Epithelial Cells MOD H, Urine Hemoglobin TRACE-INTACT, Urine Glucose NEG 10/12/17 1840: Ur Random Creatinine 87.1, Ur Random Sodium 5 L, Ur Random Potassium 70.0, Fraction Sodium Excret 0.0 10/12/17 1700: Anion Gap 7, Estimated GFR > 60, Glucose 226 H, Serum Osmolality 291, Calcium 7.3 L, Phosphorus 4.8 H, Magnesium 1.5 L, Total Bilirubin 0.4, AST 19, ALT 40 , Albumin 2.3 L, CBC w Diff NO MAN DIFF REQ, RBC 3.14 L, MCV 87.7, MCH 29.2, MCHC 33.3, RDW 14.2, MPV 8.2, Gran % 80.6 H, Lymphocytes % 11.5 L, Monocytes % 7.8, Eosinophils % 0.1, Basophils % 0, Absolute Granulocytes 23.5 H, Absolute Lymphocytes 3.4, Absolute Monocytes 2.3 H, Absolute Eosinophils 0, Absolute Basophils 0 Assessment/Plan Assessment/Plan Assessment: 1. Status post back fusion surgery 2. Intraoperative and postoperative bradycardia and hypotension, improved 3. Acute blood loss anemia on Xarelto 4. Left upper extremity deep vein thrombus 5. History of hypertension 6. History of hyperlipidemia 7. History of bilateral carotid plaque Plan: -Anticoagulation remains on hold for acute bleeding -Recommend low-dose aspirin and subcutaneous heparin if possible. -Continue diltiazem and losartan -Continue as per the surgical/medical team Continue telemetry? Yes
[2017-10-14 15:10] LABS: PT 11.4 SEC (9.4-12.5)
[2017-10-14 15:15] LABS: ABSOLUTE BASOPHIL COUNT 0.1 /CUMM (0.0-0.2); ABSOLUTE EOSINOPHIL COUNT 0.6 /CUMM (0.0-0.7); ABSOLUTE LYMPH COUNT 2.6 /CUMM (1.2-3.4); ABSOLUTE MONOCYTE COUNT 1.3 /CUMM (0.10-0.60); BASOPHIL % 0.3 % (0.0-2.0); GRANULOCYTE % 75.7 % (42.2-75.2); HEMATOCRIT 31.7 % (37-47); MEAN CORPUSCULAR HGB 29.6 PG (27.0-31.0); MEAN CORPUSCULAR HGB CONC 33.7 G/DL (33.0-37.0); MEAN PLATELET VOLUME 7.8 FL (7.4-10.4); PLATELET COUNT 220 /CUMM (130-400); RBC DISTRIBUTION WIDTH 14.9 % (11.5-14.5); WHITE BLOOD CELL COUNT 18.5 /CUMM (4.8-10.8)
[2017-10-14 16:00] VITALS: BP 150/60
[2017-10-15] VITALS: BP 146/52
[2017-10-15 05:35] LABS: ABSOLUTE BASOPHIL COUNT 0.1 /CUMM (0.0-0.2); ABSOLUTE EOSINOPHIL COUNT 0.7 /CUMM (0.0-0.7); ABSOLUTE GRANULOCYTE CT 12.8 /CUMM (1.4-6.5); ABSOLUTE LYMPH COUNT 2.6 /CUMM (1.2-3.4); ABSOLUTE MONOCYTE COUNT 1.4 /CUMM (0.10-0.60); BASOPHIL % 0.5 % (0.0-2.0); EOSINOPHIL % 4.2 % (0-5); GRANULOCYTE % 72.6 % (42.2-75.2); HEMATOCRIT 32.2 % (37-47); MEAN CORPUSCULAR HGB 29.1 PG (27.0-31.0); MEAN CORPUSCULAR HGB CONC 33.1 G/DL (33.0-37.0); MEAN CORPUSCULAR VOLUME 88.1 FL (81.0-99.0); MEAN PLATELET VOLUME 7.6 FL (7.4-10.4); PLATELET COUNT 246 /CUMM (130-400); RBC DISTRIBUTION WIDTH 14.9 % (11.5-14.5); RED BLOOD CELL CT 3.66 /CUMM (4.20-5.40); WHITE BLOOD CELL COUNT 17.7 /CUMM (4.8-10.8)
--- NOTE | 2017-10-15 05:45 | PN- Orthopedic ---
See Addendum Subjective Subjective: FEELING OK, MINIMAL OOB YESTERDAY, +BM, AYAH DIET, PAIN CONTROLLED, DENIES ABD PAIN, DENIES EXTREMITY PAIN. MAIN COMPLAINT IS SLIGHT SOB Objective Vital Signs and I&Os Vital Signs Date Time Temp Pulse Resp B/P B/P Pulse O2 O2 Flow FiO2 Mean Ox Delivery Rate 10/15 0538 97 Nasal 1.0L Cannula 10/15 0400 97 Nasal 1.0L Cannula 10/15 0000 93 Nasal 1.0L Cannula 10/15 0000 97.3 81 27 146/52 93 Nasal 1.0L Cannula 10/14 2000 94 Room Air Room Air 10/14 1925 99 Nasal 2.0L Cannula 10/14 1600 97.6 82 22 150/60 95 Nasal 2.0L Cannula 10/14 1600 95 Nasal 2.0L Cannula 10/14 1200 95 Nasal 2.0L Cannula 10/14 0946 165/58 10/14 0859 97 Nasal 2.0L Cannula 10/14 0819 Nasal 2.0L Cannula 10/14 0800 98.8 74 18 150/60 96 Nasal 2.0L Cannula 10/14 0800 96 Nasal 2.0L Cannula Intake & Output 10/15 0800 10/15 0000 10/14 1600 10/14 0800 10/14 0000 10/13 1600 Intake Total 500 710 470 940 520 Output Total 622 592 8875 600 400 Balance -400 -115 -1705 340 120 Intake, Blood 350 300 Product Intake, IV 150 80 Intake, Oral 500 560 120 640 440 Number 1 0 0 Bowel Movements Output, Urine 735 542 3687 600 400 Physical Exam: gen- NAD card-S1S2 RRR pulm- DECREASED BS BL anteriorly abd- obese, soft, nt back- dressing cdi, ttp at inciison ext-calves soft nt bl, palp dp bl, some edema bl le, gross motor intact bl. rue picc in place- no erythema, nontender, site clean/dry. Current Medications: Current Medications Sig/Clementine Start time Last Medication Dose Route Stop Time Status Admin Albuterol Sulfate 3 ML TID 10/07 2099 AC 10/15 INH 0536 Artificial Tears 2 GTT 4 TIMES/DAY 10/10 2099 AC 10/14 OPH 2124 Bisacodyl 10 MG ONCE PRN 10/14 1245 AC 10/14 [place] 1340 Bisacodyl 5 MG DAILY 10/13 0845 AC 10/14 PO 0945 Budesonide/ 2 PUF BID 10/08 2100 AC 10/14 Formoterol Fumarate INH 2122 Cyclobenzaprine HCl 5 MG BID 10/14 1030 AC 10/14 PO 2121 Diclofenac Sodium 1 ALVARO 4 TIMES/DAY 10/11 1300 AC 10/14 TOP 2131 Diltiazem HCl 120 MG DAILY 10/12 0900 AC 10/14 PO 0946 Guaifenesin 10 ML .STK-MED ONE 10/14 2128 DC PO 10/14 2130 Guaifenesin 10 ML Q6P PRN 10/12 2030 AC 10/14 PO 2130 Guaifenesin 600 MG Q12 10/08 2100 AC 10/14 PO 2121 Heparin Sodium 5,000 UNIT Q8 10/13 1400 AC 10/14 (Porcine) SC 2127 Hydrocodone Bitart/ 1 TAB Q4 HRS NEEDED PRN 10/10 0715 AC 10/11 Acetaminophen PO 1448 Hydrocodone Bitart/ 2 TAB Q4 HRS NEEDED PRN 10/10 0715 AC 10/14 Acetaminophen PO 2120 Insulin Aspart 0 TIDAC 10/13 1200 AC 10/14 SC 1638 Ipratropium [place] 2.5 ML TID 10/07 2100 AC 10/15 INH 0536 Lidocaine 1 PAT DAILY 10/13 1813 AC 10/14 EXT 0946 Losartan Potassium 25 MG DAILY 10/10 1121 AC 10/14 PO 0946 Magnesium Sulfate 1 GM ONCE ONE 10/14 0815 DC 10/14 Dextrose/Water 100 ML IV 10/14 1214 0946 Montelukast Sodium 10 MG AT BEDTIME 10/08 2100 AC 10/14 PO 2121 Morphine Sulfate 4 MG .STK-MED ONE 10/14 2009 DC IM 10/14 2010 Morphine Sulfate 2 MG Q3P PRN 10/08 1345 AC 10/15 IV 0256 Ondansetron HCl 4 MG Q6P PRN 10/07 1945 AC 10/08 IV 0950 Pantoprazole Sodium 40 MG DAILY 10/08 0900 AC 10/14 IV 0947 Polyethylene Glycol 17 GM DAILY 10/09 1115 AC 10/14 PO 0946 Promethazine HCl 12.5 MG Q6P PRN 10/07 194 DC 10/12 IV 10/14 1859 1641 Senna/Docusate Sodium 2 TAB DAILY 10/13 0900 AC 10/14 PO 0947 Sodium Chloride 2 SPRAY Q4P PRN 10/14 2000 AC KIM Results Last 48 Hours of Labs: Laboratory Tests 10/15 10/14 0508 1406 Chemistry Sodium Pending Potassium Pending Chloride Pending Carbon Dioxide Pending Anion Gap Pending BUN Pending Creatinine Pending Glucose Pending Calcium Pending Phosphorus Pending Magnesium Pending Total Bilirubin Pending AST Pending ALT Pending Albumin Pending Coagulation PT (9.4 - 12.5 SEC) 11.4 INR (0.90 - 1.19) 1.05 Hematology CBC w Diff NO MAN DIFF REQ NO MAN DIFF REQ WBC (4.8 - 10.8 /CUMM) 17.7 H 18.5 H RBC (4.20 - 5.40 /CUMM) 3.66 L 3.60 L Hgb (12.0 - 16.0 G/DL) 10.7 L 10.7 L Hct (37 - 47 %) 32.2 L 31.7 L MCV (81.0 - 99.0 FL) 88.1 88.0 MCH (27.0 - 31.0 PG) 29.1 29.6 MCHC (33.0 - 37.0 G/DL) 33.1 33.7 RDW (11.5 - 14.5 %) 14.9 H 14.9 H Plt Count (130 - 400 /CUMM) 246 220 MPV (7.4 - 10.4 FL) 7.6 7.8 Gran % (42.2 - 75.2 %) 72.6 75.7 H Lymphocytes % (20.5 - 51.1 %) 14.8 L 14.1 L Monocytes % (1.7 - 9.3 %) 7.9 6.9 Eosinophils % (0 - 5 %) 4.2 3.0 Basophils % (0.0 - 2.0 %) 0.5 0.3 Absolute Granulocytes (1.4 - 6.5 /CUMM) 12.8 H 14.0 H Absolute Lymphocytes (1.2 - 3.4 /CUMM) 2.6 2.6 Absolute Monocytes (0.10 - 0.60 /CUMM) 1.4 H 1.3 H Absolute Eosinophils (0.0 - 0.7 /CUMM) 0.7 0.6 Absolute Basophils (0.0 - 0.2 /CUMM) 0.1 0.1 10/14 05 0540 1810 Chemistry Sodium (137 - 145 mmol/L) 134 L Potassium (3.5 - 5.1 mmol/L) 3.8 Chloride (98 - 107 mmol/L) 96 L Carbon Dioxide (22 - 30 mmol/L) 33 H Anion Gap (5 - 16) 5 BUN (7 - 17 mg/dL) 21 H Creatinine (0.5 - 1.0 mg/dL) 0.7 Estimated GFR (>60 ml/min) > 60 Glucose (65 - 99 mg/dL) 154 H Calcium (8.4 - 10.2 mg/dL) 7.9 L Phosphorus (2.5 - 4.5 mg/dL) 3.9 Magnesium (1.6 - 2.3 mg/dL) 1.5 L Total Bilirubin (0.2 - 1.3 mg/dL) 0.5 AST (14 - 36 U/L) 18 ALT (9 - 52 U/L) 46 Albumin (3.5 - 5.0 g/dL) 2.4 L Hematology CBC w Diff NO MAN DIFF REQ MAN DIFF ORDERED WBC (4.8 - 10.8 /CUMM) 19.1 H 23.3 H RBC (4.20 - 5.40 /CUMM) 3.62 L 2.84 L Hgb (12.0 - 16.0 G/DL) 10.6 L 8.5 L Hct (37 - 47 %) 31.9 L 25.3 L MCV (81.0 - 99.0 FL) 88.0 89.2 MCH (27.0 - 31.0 PG) 29.4 30.0 MCHC (33.0 - 37.0 G/DL) 33.4 33.6 RDW (11.5 - 14.5 %) 14.7 H 14.6 H Plt Count (130 - 400 /CUMM) 197 217 MPV (7.4 - 10.4 FL) 7.6 7.8 Gran % (42.2 - 75.2 %) 74.1 80.3 H Lymphocytes % (20.5 - 51.1 %) 14.5 L 12.2 L Monocytes % (1.7 - 9.3 %) 7.8 5.4 Eosinophils % (0 - 5 %) 3.2 1.8 Basophils % (0.0 - 2.0 %) 0.4 0.3 Absolute Granulocytes (1.4 - 6.5 /CUMM) 14.2 H 18.7 H Segmented Neutrophils (42.2 - 75.2 %) 80 H Band Neutrophils (0.0 - 5.0 %) 1 Absolute Lymphocytes (1.2 - 3.4 /CUMM) 2.8 2.8 Lymphocytes (20.5 - 51.1 %) 14 L Monocytes (1.7 - 9.3 %) 3 Absolute Monocytes (0.10 - 0.60 /CUMM) 1.5 H 1.3 H Eosinophils (0 - 5.0 %) 1 Absolute Eosinophils (0.0 - 0.7 /CUMM) 0.6 0.4 Absolute Basophils (0.0 - 0.2 /CUMM) 0.1 0.1 Metamyelocytes (0.0 - 1.0 %) 1 Platelet Estimate (ADEQUATE) ADEQUATE Polychromasia 1+ Anisocytosis 1+ Other Body Source Fld Total RBCs Counted (%) 100 Assessment/Plan Assessment/Plan A- POD8 sp 4level lumbar fusion, to icu postop due to acute blood loss anemia and hemodynamic instability, now with improving H&H after multiple transfusions, with UE dvt at picc site with one lumen occluded, neurosurg stable. P- daily dsg changes- not changed now as pt on bedpan having bm cont hold xarelto picc line- if not working, attempt access lue. per vasc surg yesterday- tpa to occluded lumen if ok with neurosurg/primary team, cont hepsq. prn pain meds fu lytes oob titrate o2 off medical care per primary team will dw attending
--- NOTE | 2017-10-15 07:06 | PN- Resident CRCU ---
Jared Tucker 10/15/17 0705: Subjective HPI/CRCU Issues: She is comfortable this morning. Did not have any new concerns. Pain is adequately controlled. As per the nursing staff, she did not have any bleeding from the surgical site. No paresthesias, weakness in lower extremities. She worked with physical therapy yesterday to get out of the bed and sit in a chair. Had 1 bowel movement yesterday. MAXIMUM TEMPERATURE 98.8 Pulse rate 74-81, respiration 22-36 Blood pressure 143-171/53-101 Input 1330, output 2350 mL. Objective Vital Signs & I&O Last 8 Hrs of Vitals and I&O: Intake & Output 10/15 0800 Intake Total 120 Output Total 625 Balance -505 Intake, Oral 120 Number 0 Bowel Movements Output, Urine 625 Exam General Appearance: awake Other Physical Findings: General Exam: AAOx3, No acute distress, Skin: No rashes, dressing in place on the back w/ no e/o bleeding ( couldnt examine the wound, as she was in a lot of pain);HEENT: PERRLA, EOMI;Neck: Supple, No JVD; No cervical lymphadenopathy;CVS: Reg Rate, Normal S1,S2, No MGR;Resp: coarse ronchi found ;Abdomen: Soft, No tenderness, Normal Bowel Sounds;Neuro: Normal Speech, Strength 5/5 b/l x 4 extremities, Sensation intact, CN III-XII NL, Reflexes 2+;Extremities: No cyanosis,1 + pedal edema Weaning Parameters NIF: 37 Minute Volume: 9.5 Resp rate: 22 Vt: 432 Heart Rate: 93 Weaning Schedule Start Time: 0812 Minute Volume: 10.2 Resp Rate: 17 Vt: 325 Heart Rate: 92 End Time: 1012 Minute Volume: 10.7 Resp Rate: 24 Vt: 400 Heart Rate: 95 Impression/Plan Impression/Problem List Impression: Ms Eduardo is a 71-year-old woman with PMHx of Asthma, COPD not on home oxygen, history of multiple admissions for MRSA pneumonia, HTN, HLD, T2DM, TIA on Plavix , insomnia, GERD, osteoarthritis, carpal tunnel syndrome, PVD, bilateral lung nodules, 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 Hospital course was complicated by a prolonged surgery for approximately 9 hrs, with blood loss of approximately 1200 ml intraoperatively. She was under continuous neurophysiological monitoring. She received propofol and fentanyl. As per the note, she was significantly bradycardic and had into junctional rhythm. She was also found to be hypotensive during the surgery requiring more than 5 L of normal saline resuscitation, and was started on epinephrine drip with resolution of her junctional rhythm now in sinus bradycardia. She was transfered to the ICU for the managment of post operative repiratory failure, and was successfully extubated without any complications. She was found to have DVT in right arm, which was attributed to prolonged surgery, and was started on xarelto after consulting vascular surgery. After she was more hemodynamically stable, she was transfered to floor for further management under surgical service. Daily ins and outs were monitored closely in the ICU,and was found to have decreasing CLARIBEL drain output from the surgical site, with eventual discontinuation of CLARIBEL drains by the surgery. She was found to have an acute drop in H&H, and had severe bleeding from the surgical site. Problem list : Pertinent labs in the last 24 hrs: WBC 24.01 (10/08/2017)-->19.8 (10/10/2017)--> 27.4 (10/13)-->17.7(10/14) Hemoglobin 11.2 (10/08/2017)-->8.8 (10/10/2017)-->7.8 (10/12)--> post 2 PRBC tx 9.4 (10/13)-->10.7(10/14) Platelet count 180k-->246(10/14) Sodium 137, K 4.3 BUN 13, creatinine 0.6. Problem list: #1 postoperative day 8 laminectomy ( Severe lumbar spinal stenosis status post laminectomy on 10/07/2017) #2 deep venous thrombosis right upper extremity #3 anemia, likely acute blood loss #4 hypomagnesemia, electrolyte imbalance #5 history of diabetes #6 Postoperative respiratory failure requiring mechanical ventilation #7 Intraoperative severe hypotension/circular tissue shock requiring pressor support #8 Intraoperative sinus bradycardia/junctional rhythm #9 Leukocytosis with bandemia without source of infection #10 History of COPD #11 History of TIA #12 History of hypertension 1. Respiratory: Dyspnea improved. She's currently on 2 L nasal cannula supplemental oxygen, which could be tapered down today as tolerated. Continue guaifenesin, beta agonists. -No lasix today. 2. Infectious: Leukocytosis. Likely multifactorial in her case, with hematological cause likely,which is improving. She also received Solu-Medrol recently. She was on vancomycin for prophylaxis, as per orthopedics. -Continue to monitor daily CBCs. -Continue to monitor for any signs of infection. -Daily wound check, as per surgery. -Leucocytosis chornic, hematological cause likely ? CLL 3. Circulatory-rate controlled. Currently normal sinus rhythm. Currently on Cardizem and Cozaar. No echocardiogram at this time as per the public relations player. -Restart aspirin after discussing with the public relations player. -Reached out to the surgical team for advise on restarting ASA. 4. Hematology: Noted to have a drop in H&H, likely due to bleeding from the surgery site. Given her recent surgery, she probably is not appropriately responding to loss of blood. - Recheck CBC in the am. - Please dont overzealously transfuse, which would put her at a higher risk of fluid overload. In regards to treatment of DVT, difficulty decision to the surgeon to continue the DOAC at this time. As per the vascular/surgical service who opted to leave the PICC line in place. Would defer the decision of PICC line management to surgical service. -AC as per surgery. Risks vs benefits discussed w/ the pt. -Ideally, she should be started on iv heparin and transitioned to lovenox/ coumdin -Heparin sc has been started by the surgical service. -Guiac negative. -To reach out to Heamatology for advice. 5. Metabolic stable at this time. Blood sugars in the range of 200s. Range NovoLog sliding scale coverage from medium to high. 6. Alimentary-tolerating diet well. Bowel regimen ordered. Gi was consulted by the overnight team. Informed the surgical team. 7. Neurology-pain control with Vicodin as per surgical service. ICU checklist: DVT prophylaxis-pharmacological. GI prophylaxis-Protonix. #1 Central line- PICC line in place. Would defer the decision to the vascular to remove the line. #2 Arterial line- none( removed ) #3 Castillo catheter ( in place ) #4 Rectal tube ( none ) #5 NG tube ( none ) #6 IV/peripheral line- in place. #7 IV drips ( none ) #8 Vent settings: ( none ) #9 pressors ( none ) Final recs after discssing with the attending... Problem List: 1. DVT (deep venous thrombosis) 2. MRSA (methicillin resistant staph aureus) culture positive Pain Ratin Tomorrow's Labs & Rationales: cbc bep Plan DVT/Prophylaxis: pharmacological Oleg Kahn MD 10/15/17 0933: Objective Current Medications: Current Medications Sig/Clementine Start time Last Medication Dose Route Stop Time Status Admin Albuterol Sulfate 3 ML TID 10/07 2100 AC 10/16 INH 0834 Artificial Tears 2 GTT 4 TIMES/DAY 10/10 2100 AC 10/15 OPH 2145 Bisacodyl 10 MG ONCE PRN 10/14 1245 AC 10/14 [place] 1340 Bisacodyl 5 MG DAILY 10/13 0845 AC 10/14 PO 0945 Budesonide/ 2 PUF BID 10/08 2100 AC 10/15 Formoterol Fumarate INH 2145 Cyclobenzaprine HCl 5 MG BID 10/14 1030 AC 10/15 PO 2145 Diclofenac Sodium 1 ALVARO 4 TIMES/DAY 10/11 1300 AC 10/15 TOP 2145 Diltiazem HCl 120 MG DAILY 10/12 0900 AC 10/15 PO 1008 Guaifenesin 10 ML Q6P PRN 10/12 2030 AC 10/14 PO 2130 Guaifenesin 600 MG Q12 10/08 2100 AC 10/15 PO 2145 Heparin Sodium 5,000 UNIT Q8 10/13 1400 AC 10/16 (Porcine) SC 0616 Hydrocodone Bitart/ 1 TAB Q4 HRS NEEDED PRN 10/10 0715 AC 10/11 Acetaminophen PO 1448 Hydrocodone Bitart/ 2 TAB Q4 HRS NEEDED PRN 10/10 0715 AC 10/16 Acetaminophen PO 0743 Insulin Aspart 0 TIDAC 10/13 1200 AC 10/15 SC 1708 Ipratropium [place] 2.5 ML TID 10/07 2100 DC 10/15 INH 1338 Lidocaine 1 PAT DAILY 10/13 1813 AC 10/15 EXT 1008 Losartan Potassium 25 MG DAILY 10/10 1121 AC 10/15 PO 1008 Montelukast Sodium 10 MG AT BEDTIME 10/08 2100 AC 10/15 PO 2145 Morphine Sulfate 2 MG Q3P PRN 10/08 1345 DC 10/15 IV 1137 Ondansetron HCl 4 MG Q6P PRN 10/07 1945 AC 10/08 IV 0950 Pantoprazole Sodium 40 MG DAILY 10/08 0900 AC 10/15 IV 1007 Polyethylene Glycol 17 GM DAILY 10/09 1115 AC 10/15 PO 1007 Senna/Docusate Sodium 2 TAB DAILY 10/13 0900 AC 10/15 PO 1007 Sodium Chloride 2 SPRAY Q4P PRN 10/15 1999 AC KIM Attending MD Review Statement Attending Sign Off Attending Cosign Statement: I have: examined this patient, reviewed avalbl EMR data, personally reviewd images, discussd w/resident/PA/CONVEYOR MONITOR, discussed mgmt plan w/anna marie, discussed mgmt plan w/CM, discussed mgmt plan w/pt, agreed w/resident/PA/CONVEYOR MONITOR, amended to note. Other Findings: Impression 71 year old woman * extensive back surgery * acute blood loss anemia, likely surgical site * RUE DVT * hx of asthma * hx of MRSA pna * leukocytosis improved - etiology - ?hematological disorder Plan Respiratory -trc/nebs -monitor saturations ID -off abx, has chronically elevated leukocytosis, no indication for any infection at this time, continue to trend and inquire with hematology regarding pursuing a hematological workup -leukocytosis is trending down CVS -f/u cardiology recommendations -aspirin was recommended - however the patient has an allergy to aspirin and this will not be started Heme -monitor cbc, platelets -f/u vascular sx regarding picc line/RUE DVT -if continues to have a stable hgb without bleeding, will need to evaluate vermin exterminator a/c options, such as pradaxa vs coumadin, would avoid xarelto likely Metabolic -ins/outs -creatinine/electrolyte monitoring Alimentary -tolerating diet Neuro -pain control -add muscle relaxant (flexeril) takes on an outpatient basis, her pain seems to be related to this DVT prophylaxis at all times TTS 35 min Downgrade to telemetry
[2017-10-15 08:00] VITALS: BP 160/60
--- NOTE | 2017-10-15 12:28 | PN- Cardiology ---
Subjective Subjective: No chest pain. No shortness of breath. No bleeding noted. No nausea or vomiting. I spoke to the patient to clarify the history of aspirin intolerance. She notes that decades ago she had bleeding while taking aspirin, and she was told not to take aspirin after that. She is not able to recall the details, however it does not sound like a true allergy. Patients who have bleeding secondary to high- dose aspirin are typically able to tolerate low-dose aspirin. Objective Vital Signs and I&Os Vital Signs Date Time Temp Pulse Resp B/P B/P Pulse O2 O2 Flow FiO2 Mean Ox Delivery Rate 10/15 1008 82 160/55 10/15 0905 97 Room Air Room Air 10/15 0800 100 Nasal 1.0L Cannula 10/15 0800 97.9 80 22 160/60 100 Nasal 1.0L Cannula 10/15 0538 97 Nasal 1.0L Cannula 10/15 0400 97 Nasal 1.0L Cannula 10/15 0000 93 Nasal 1.0L Cannula 10/15 0000 97.3 81 27 146/52 93 Nasal 1.0L Cannula 10/14 2000 94 Room Air Room Air 10/14 1925 99 Nasal 2.0L Cannula 10/14 1600 97.6 82 22 150/60 95 Nasal 2.0L Cannula 10/14 1600 95 Nasal 2.0L Cannula Intake & Output 10/15 1600 / 0800 05/ 0000 / 1600 10/14 0800 05/ 0000 Intake Total 120 500 710 470 940 Output Total 625 567 219 4025 600 Balance -505 -400 -115 -1705 340 Intake, Blood 350 300 Product Intake, IV 150 Intake, Oral 120 500 560 120 640 Number 0 1 0 Bowel Movements Output, Urine 625 198 490 3219 600 Physical Exam: Gen: NAD HEENT: normal Lungs: clear to auscultation, normal resp. effort Heart: RRR, S1, S2, 1/6 systolic murmur Abdomen: Soft, nontender, no masses Extremities: No clubbing, cyanosis, or edema. Neuro: Alert and oriented x 3, cranial nerves intact Assessment/Plan Assessment/Plan Assessment: 1. Status post back fusion surgery 2. Intraoperative and postoperative bradycardia and hypotension, improved 3. Acute blood loss anemia on Xarelto 4. Left upper extremity deep vein thrombus 5. History of hypertension 6. History of hyperlipidemia 7. History of bilateral carotid plaque Plan: * Anticoagulation remains on hold for acute bleeding. Would discuss with surgery regarding timing of restarting anticoagulation. * Given the history of bleeding while on Xarelto, would consider changing to Pradaxa when anticoagulation is restarted since a reversal agent is available for Pradaxa * Continue diltiazem and losartan Continue telemetry? Yes
--- NOTE | 2017-10-15 14:43 | Transfer of Care Summary ---
Hospital Course Course Hospital Course: Ms Eduardo is a 71-year-old woman with PMHx of Asthma, COPD not on home oxygen, history of multiple admissions for MRSA pneumonia, HTN, HLD, T2DM, TIA on Plavix , insomnia, GERD, osteoarthritis, carpal tunnel syndrome, PVD, bilateral lung nodules, 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 Hospital course was complicated by a prolonged surgery for approximately 9 hrs, with blood loss of approximately 1200 ml intraoperatively. She was under continuous neurophysiological monitoring. She received propofol and fentanyl. As per the note, she was significantly bradycardic and had into junctional rhythm. She was also found to be hypotensive during the surgery requiring more than 5 L of normal saline resuscitation, and was started on epinephrine drip with resolution of her junctional rhythm now in sinus bradycardia which was not documented. She was transfered to the ICU for the managment of post operative repiratory failure, and was successfully extubated without any complications. She was found to have DVT in right arm, which was attributed to prolonged surgery, and was started on xarelto after consulting vascular surgery. After she was more hemodynamically stable, she was transfered to floor for further management under surgical service. Daily ins and outs were monitored closely in the ICU,and was found to have decreasing CLARIBEL drain output from the surgical site, with eventual discontinuation of CLARIBEL drains by the surgery. She was found to have an acute drop in H&H, and had severe bleeding from the surgical site. Pertinent labs: WBC 24.01 (10/08)-->19.8 (10/10)--> 27.4 (10/13)-->17.7(10/14) Hemoglobin 11.2 (10/08)-->8.8 (10/10)-->7.8 (10/12)--> post 2 PRBC tx 9.4 (10/13)--> 10.7(10/14) Platelet count 180k-->246(10/14) Sodium 137, K 4.3 BUN 13, creatinine 0.6. Problem list: #1 postoperative day 9 laminectomy ( Severe lumbar spinal stenosis status post laminectomy on 10/07/2017) #2 deep venous thrombosis right upper extremity #3 anemia, likely acute blood loss #4 hypomagnesemia, electrolyte imbalance #5 history of diabetes #6 Postoperative respiratory failure requiring mechanical ventilation #7 Intraoperative severe hypotension/circular tissue shock requiring pressor support #8 Intraoperative sinus bradycardia/junctional rhythm #9 Leukocytosis with bandemia without source of infection #10 History of COPD #11 History of TIA #12 History of hypertension She was initiallly being taken care of by the surgical service, and was transitioned to the medical team on 10/14/17 when she had acute dyspnea likely secondary to transfuson of 2-3 PRBCs. She was given furosemide, as needed. The surgical service was managing the area of laminectomy actively, and CLARIBEL drain was kept in place till the drainage was minimal as per the surgery. The wound was checked every day, and was found to have increased bleeding from the area after xarelto was inititated. After consulting with the vascular surgery, the surgical team discontinued the anticoagulation with resulting in resolution of post-surgical bleeding. She was kept off anticoagulation, despite her recent diagnosis of VTE in upper extremity since the risk of bleeding leading to neurological compromose was far greater than worsening venous thrombolism. The risks and benefits were discussed with the patient. The surgical service including vascular surgery was consulted for advice. CTA and US doppler LE negative for VTE. 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 She was also on vancomycin as part of prophylaxis, as per the surgical service which was discontinued when she was taken over by the surgical service, given no clear indication. CT abdomen negative for any infection or any acute processes. Hemodynamics monitored while she was in the ICU. She did not have any epsiodes of hypotension, and her antihypertensives were resumed after discussing with the auricular acupuncturist. Tele events were monitored closley, since she had recent h/o junctional rhythm during surgery that was not clearly documented by the surgical service. No echocardiogram at this time as per the auricular acupuncturist. H&H was checked daily, and monitored closely. Since she did not have a significant drop in H&H, with bhaskar 7.6 on 10/11, but was transfused approximately 6 units by the surgical service; other sources of blood loss were investigated including GI. She was found to be hemo-occult negative, and also undwernt a GI evaluation by the business development consultant. Bleeding was thought to be from the surgery site, and the bonemarrow was likely not responding appropriately to the acute loss of blood, makes us think that she might be having some form of PMN. Retic count was very low, adjusted to anemia. In regards to treatment of DVT, the treatment was deferred to the surgeon to continue the DOAC or warfarin which is safter in her case at this time or even pradaxa after starting heparin. As per the vascular/surgical service who opted to leave the PICC line in place, as againt the medical opinon. Deferred the decision of PICC line management to surgical service. It was planned to attempt at finding iv access again, and if unsuccessful would request IR for a PICC line placement on the opposite side of the current picc line. No use of tPA, as per Dr Kahn which would increase the risk of bleeding into the surgical site. The blood sugars stayed in the range of 200s, which was slighly lesser than optimal in regards to diabetic management, and was not started any long acting given her her transient use of steroids. The dose of insulin sliding scale adjusted accordingly. BM+ w/ dulcolax suppository. Pain management was done by the surgical service, w/ vicodin. She continued to have pain in her right side of the chest which could not be attributed to any visceral cause. RUQ, chest x ray was negative for any pathology. It was likely due to musculoskeletal cause, and was monitored closely. No change in respiratory status. DVT prophylaxis-pharmacological. GI prophylaxis-Protonix. #1 Central line- PICC line in place. Would defer the decision to the vascular to remove the line. #2 Arterial line- none( removed ) #3 Castillo catheter ( in place ) #4 Rectal tube ( none ) #5 NG tube ( none ) #6 IV/peripheral line- in place. #7 IV drips ( none ) #8 Vent settings: ( none ) #9 pressors ( none ) To follow on the floors after being transferred from the ICU: 1. Restart Plavix after discussing with Surgery. Await response from the surgery. As per surgery, they prefer to start antiplatelets at the time of dc. 2. PICC line placement on the opposite side, and removal of current PICC line ( would have surgery remove the line given thrombosis ) 3. Restart iv heparin once Hb is stable, and transition to either warfarin or Pradaxa ( renal function stable ) 4. Taper off oxygen. 5. Daily neuro checks. 6. Lasix, if needed for volume overload. 7. Discuss the final plan with Ortho, Neuro surg and Vascular before discharging the pt. 8. Reached out to [facility] for advice on leucocytosis. Would discuss with the attending, if workup could be done in house, for example- flow cytometry before being evaluated by hem onc as an outpatient. Pertinent Lab Results: RAD - XRY-LUMBOSACRAL SPINE AP & LAT 10/07/17- Fluoroscopic assistance is provided at the time of the spinal fusion. Postsurgical changes of previous posterior spinal fusion are noted at L3 through L5 showing intact hardware and satisfactory alignment. New radiopaque hardware is identified at L2-L3 and L5-S1 disc space. IMPRESSION: New radiopaque hardware is visualized at L2-L3 and L5-S1 RAD - XRY-PORTABLE CHEST XRAY 10/07/17-1808 Lung volumes are somewhat low, accentuating normal bronchovascular markings. A new endotracheal tube is seen with its tip at the level of the thoracic inlet, about 3.5 cm from the dashawn. No definite focal airspace consolidation or overt pulmonary edema is appreciated. Heart size is approximately stable. IMPRESSION: Low lung volumes with endotracheal tube placement as described. US - US-UNILATERAL VENOUS DOPPLER 10/08/17- There is a right PICC line in place. There is occlusive thrombus within the right brachial veins and basilic vein. Study limited secondary to bandages. The right internal jugular vein, imaged innominate vein, subclavian vein, and axillary vein remain patent. The cephalic vein remains patent. IMPRESSION: Positive study. Right PICC line in place with occlusive thrombus within the mid to distal right brachial veins and the basilic vein XRY-PORTABLE CHEST XRAY 10/08/17-0500 Endotracheal tube terminates approximately 5 cm above the dashawn. Right-sided PICC line with the tip at the cavoatrial junction. Borderline heart size. Lungs are clear. IMPRESSION: Endotracheal tube terminates approximately 5 cm above the dashawn. No acute pulmonary disease. --------- CAT - CTA CHEST 10/09/17-08 No central or segmental pulmonary embolus seen. The aorta is normal in caliber. No aneurysm or dissection. No pulmonary nodules or masses seen. There is borderline bronchiectasis in the lower lobes bilaterally. There is chronic appearing posterior left lower lobe consolidation. No pleural effusion or pneumothorax. Normal heart size. No adrenal mass. No acute or suspicious osseous abnormality with multilevel degenerative changes of the thoracic spine. IMPRESSION: No central or segmental pulmonary embolus seen. CT ABDOMEN AND PELVIS WITHOUT AND WITH CONTRAST 10/12/171030 1. No acute findings in the abdomen or pelvis. 2. Status post lumbosacral spinal surgery; no evidence of paraspinal abscess. 3. No evidence of an acute lower rib fracture. US - US-EXT BILAT VENOUS DOPPLER, US TRIPLEX OF LOWER EXTREMITIES, BILATERAL Normal triplex scan without evidence of deep venous thrombosis involving the lower extremities. XRY-PORTABLE CHEST XRAY 10/14/17-32 - No active disease in the chest. - Stable right-sided PICC. Assessment/Plan: as above Attending MD Review Statement Documenting Attending: Femi HARRIS,Oleg
[2017-10-15 16:00] VITALS: BP 170/64
[2017-10-15 18:15] VITALS: BP 150/86
[2017-10-15 22:50] VITALS: BP 160/100
[2017-10-16 06:05] VITALS: BP 150/60
--- NOTE | 2017-10-16 07:35 | Cons- Hematology ---
General Information and HPI Consulting Request Date of Consult: 10/16/17 Requested By: Oleg Kahn MD History of Present Illness: The 71-year-old woman with an extremely complicated recent past medical history now found to have a right upper extremity DVT associated with a PICC line and persistent leukocytosis. She was initially admitted on orthopedic procedure. Patient underwent prolonged operation applicator by respiratory failure , hypotension and bradycardia. While he PICC line was in place, she developed a DVT. Oral anticoagulation was initiated, applicator by surgical wound bleeding. Anti-coagulation was discontinued; the PICC line remains in place. Patient was also noted to have a persistent leukocytosis. Currently she feels she is improving globally Allergies/Medications Allergies: Coded Allergies: Sulfa (Sulfonamide Antibiotics) (Intermediate, SKIN TURNS PURPLE/HOT 09/24/17) Penicillins (Mild, ITCHING 09/24/17) aspirin (HX GASTRITIS 10/06/17) ASA->BLEEDING atorvastatin (PER PT MED LIST 09/24/17) prednisone (Severe, VISION CHANGES 09/24/17) Uncoded Allergies: ENVIRONMENTAL (UNKNOWN 07/20/13) MULTIPLE ANTIBIOTICS (UNKNOWN 07/20/13) Home Med List: Acetaminophen (8HR Arthritis Pain Relief) 650 MG TABLET.ER 2 TAB PO QHS PAIN (Reported) Albuterol Sulfate (Proair Hfa) 90 MCG HFA.AER.AD 2 PUF INH PRN ASTHMA/ ALLERGIES (Reported) Ascorbate Calcium (Vitamin C) 500 MG TABLET 1 TAB PO DAILY SUPPLEMENT ( Reported) Azelastine/Fluticasone (Dymista Nasal [place]) 137 MCG-50 MCG/SPRAY SPRAY.PUMP 1 SPRAY NASB PRN ALLERGIES (Reported) Budesonide/Formoterol Fumarate (Symbicort 160-4.5 Mcg Inhaler) 160 MCG-4.5 MCG/ ACTUATION HFA.AER.AD 2 PUFF INH BID ASTHMA/ALLERGIES (Reported) Cetirizine HCl (Zyrtec) 10 MG CAPSULE 1 CAP PO DAILY ALLERGIES (Reported) Cholecalciferol (Vitamin D3) (Vitamin D) 1,000 UNIT TABLET 1 TAB PO DAILY SUPPLEMENT (Reported) Clopidogrel Bisulfate (Plavix) 75 MG TABLET 1 TAB PO DAILY ANTICOAGULATION ( Reported) Cyclobenzaprine HCl 5 MG TABLET 1 TAB PO QHS MUSCLE SPASMS (Reported) Diltiazem HCl (Cartia Xt) 120 MG CAP.ER.24H 1 CAP PO DAILY CARDIAC (Reported) Docusate Sodium (Colace) 100 MG CAPSULE 1 CAP PO BID STOOL SOFTENER (Reported ) Gabapentin 300 MG CAPSULE 1 CAP PO PRN PAIN (Reported) Glimepiride 2 MG TABLET 1.5 TAB PO DAILY DM (Reported) Iron Carb,Gl/FA/B12/C/Docusate (Ferralet 90 Tablet) 90 MG-1 MG-12 MCG-120 MG-50 MG TABLET 1 TAB PO DAILY SUPPLEMENT (Reported) Losartan Potassium (Cozaar) 25 MG TABLET 1 TAB PO DAILY HTN (Reported) Magnesium Oxide (Magnesium) (Unknown Strength) CAPSULE (Unknown Dose) PO TID SUPPLEMENT (Reported) Melatonin 10 MG CAPSULE 1 CAP PO QPM SLEEP (Reported) Montelukast Sodium (Singulair) 10 MG TABLET 1 TAB PO DAILY ALLERGIES ( Reported) Multiple Vitamin (Multivitamins) 1 EACH TABLET 1 TAB PO DAILY SUPPLEMENT ( Reported) Multivit-Min/FA/Lutein/Zeaxant (Macular Vitamin Tablet) 500 MCG-5 MG-1 MG TABLET 1 TAB PO DAILY SUPPLEMENT (Reported) Omeprazole 40 MG CAPSULE.DR 1 CAP PO DAILY AC GERD (Reported) Sitagliptin Phosphate (Januvia) 100 MG TABLET 1 TAB PO DAILY DM (Reported) Tobramycin (Tobrex) 0.3 % DROPS 2 GTT OPH TID EYE (Reported) Current Medications: Current Medications Sig/Clementine Start time Last Medication Dose Route Stop Time Status Admin Albuterol Sulfate 3 ML TID 10/07 2100 AC 10/16 INH 0041 Artificial Tears 2 GTT 4 TIMES/DAY 10/10 2100 AC 10/15 OPH 2145 Bisacodyl 10 MG ONCE PRN 10/14 1245 AC 10/14 VA 1340 Bisacodyl 5 MG DAILY 10/13 0845 AC 10/14 PO 0945 Budesonide/ 2 PUF BID 10/08 2100 AC 10/15 Formoterol Fumarate INH 2145 Cyclobenzaprine HCl 5 MG BID 10/14 1030 AC 10/15 PO 2145 Diclofenac Sodium 1 ALVARO 4 TIMES/DAY 10/11 1300 AC 10/15 TOP 2145 Diltiazem HCl 120 MG DAILY 10/12 0900 AC 10/15 PO 1008 Guaifenesin 10 ML Q6P PRN 10/12 2030 AC 10/14 PO 2130 Guaifenesin 600 MG Q12 10/08 2100 AC 10/15 PO 2145 Heparin Sodium 5,000 UNIT Q8 10/13 1400 AC 10/16 (Porcine) SC 0616 Hydrocodone Bitart/ 1 TAB Q4 HRS NEEDED PRN 10/10 0715 AC 10/11 Acetaminophen PO 1448 Hydrocodone Bitart/ 2 TAB Q4 HRS NEEDED PRN 10/10 0715 AC 10/16 Acetaminophen PO 0025 Insulin Aspart 0 TIDAC 10/13 1200 AC 10/15 SC 1708 Ipratropium [place] 2.5 ML TID 10/07 2100 DC 10/15 INH 1338 Lidocaine 1 PAT DAILY 10/13 1813 AC 10/15 EXT 1008 Losartan Potassium 25 MG DAILY 10/10 1121 AC 10/15 PO 1008 Montelukast Sodium 10 MG AT BEDTIME 10/08 2100 AC 10/15 PO 2145 Morphine Sulfate 2 MG Q3P PRN 10/08 1345 DC 10/15 IV 1137 Ondansetron HCl 4 MG Q6P PRN 10/07 1945 AC 10/08 IV 0950 Pantoprazole Sodium 40 MG DAILY 10/08 0900 AC 10/15 IV 1007 Polyethylene Glycol 17 GM DAILY 10/09 1115 AC 10/15 PO 1007 Senna/Docusate Sodium 2 TAB DAILY 10/13 0900 AC 10/15 PO 1007 Sodium Chloride 2 SPRAY Q4P PRN 10/15 1999 [facility] Review of Systems Review of Systems: Patient denies headaches or dizziness. Patient denies new shortness of breath cough chest pain or hemoptysis. She denies nausea vomiting or abdominal pain. Unaware GI blood loss. She denies dysuria hematuria. 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 Home Who Do You Live With? spouse Primary Language: [place] Smoking Status: Never Smoked ETOH Use: denies use Illicit Drug Use: denies illicit drug use Living Will? unknown Power of Barkeep/HCP? unknown Name of POA/HCP: Dr. Rollins Other Social History: Not relevant Functional Ability ADLs Independent: dressing. Ambulation: independent IADLs Independent: shopping. Employment History Employment: Retired Profession/Employer: not applicable Exam & Diagnostic Data Vital Signs and I&O Vital Signs Date Time Temp Pulse Resp B/P B/P Pulse O2 O2 Flow FiO2 Mean Ox Delivery Rate 10/16 06 98.1 77 20 150/60 97 Room Air 10/16 0044 97 Room Air Room Air 10/16 0000 92 Room Air 10/15 2250 98.8 81 19 160/100 98 / 1945 97 Room Air 10/15 1815 97.7 83 16 150/86 96 10/15 1615 Nasal 2.0L Cannula 10/15 1612 Nasal 2.0L Cannula 10/15 1600 97.8 90 20 170/64 95 Room Air / 1008 82 160/55 / 0905 97 Room Air Room Air 10/15 0800 100 Nasal 1.0L Cannula 10/15 0800 97.9 80 22 160/60 100 Nasal 1.0L Cannula Intake & Output 10/16 0800 / 0000 /03 1600 Intake Total 740 Output Total 1000 450 Balance -1000 290 Intake, IV 20 Intake, Oral 720 Output, Urine 1000 450 Patient 204 lb Weight Gen.: in NAD ENT: Sclera anicteric Chest: Normal respiratory effort, decreased breath sounds Cor: RRR, no extra sounds Abdomen: Soft, bowel sounds present, no tenderness, no rebound Extremities: Without clubbing, cyanosis, PICC line in place, minimal right upper extremity edema Neurology: Alert and oriented 3, no gross deficit Last 48 Hours of Lab Results: Laboratory Tests 10/16 10/15 0630 0508 Chemistry Sodium (137 - 145 mmol/L) Pending 135 L Potassium (3.5 - 5.1 mmol/L) Pending 4.0 Chloride (98 - 107 mmol/L) Pending 96 L Carbon Dioxide (22 - 30 mmol/L) Pending 34 H Anion Gap (5 - 16) Pending 4 L BUN (7 - 17 mg/dL) Pending 12 Creatinine (0.5 - 1.0 mg/dL) Pending 0.6 Estimated GFR (>60 ml/min) > 60 Glucose (65 - 99 mg/dL) Pending 148 H Calcium (8.4 - 10.2 mg/dL) Pending 8.1 L Phosphorus (2.5 - 4.5 mg/dL) Pending 3.4 Magnesium (1.6 - 2.3 mg/dL) Pending 1.6 Total Bilirubin (0.2 - 1.3 mg/dL) Pending 0.5 AST (14 - 36 U/L) Pending 16 ALT (9 - 52 U/L) Pending 36 Albumin (3.5 - 5.0 g/dL) Pending 2.5 L Hematology CBC w Diff Pending NO MAN DIFF REQ WBC (4.8 - 10.8 /CUMM) Pending 17.7 H RBC (4.20 - 5.40 /CUMM) Pending 3.66 L Hgb (12.0 - 16.0 G/DL) Pending 10.7 L Hct (37 - 47 %) Pending 32.2 L MCV (81.0 - 99.0 FL) Pending 88.1 MCH (27.0 - 31.0 PG) Pending 29.1 MCHC (33.0 - 37.0 G/DL) Pending 33.1 RDW (11.5 - 14.5 %) Pending 14.9 H Plt Count (130 - 400 /CUMM) Pending 246 MPV (7.4 - 10.4 FL) Pending 7.6 Gran % (42.2 - 75.2 %) 72.6 Lymphocytes % (20.5 - 51.1 %) 14.8 L Monocytes % (1.7 - 9.3 %) 7.9 Eosinophils % (0 - 5 %) 4.2 Basophils % (0.0 - 2.0 %) 0.5 Absolute Granulocytes (1.4 - 6.5 /CUMM) 12.8 H Absolute Lymphocytes (1.2 - 3.4 /CUMM) 2.6 Absolute Monocytes (0.10 - 0.60 /CUMM) 1.4 H Absolute Eosinophils (0.0 - 0.7 /CUMM) 0.7 Absolute Basophils (0.0 - 0.2 /CUMM) 0.1 / 1406 Coagulation PT (9.4 - 12.5 SEC) 11.4 INR (0.90 - 1.19) 1.05 Hematology CBC w Diff NO MAN DIFF REQ WBC (4.8 - 10.8 /CUMM) 18.5 H RBC (4.20 - 5.40 /CUMM) 3.60 L Hgb (12.0 - 16.0 G/DL) 10.7 L Hct (37 - 47 %) 31.7 L MCV (81.0 - 99.0 FL) 88.0 MCH (27.0 - 31.0 PG) 29.6 MCHC (33.0 - 37.0 G/DL) 33.7 RDW (11.5 - 14.5 %) 14.9 H Plt Count (130 - 400 /CUMM) 220 MPV (7.4 - 10.4 FL) 7.8 Gran % (42.2 - 75.2 %) 75.7 H Lymphocytes % (20.5 - 51.1 %) 14.1 L Monocytes % (1.7 - 9.3 %) 6.9 Eosinophils % (0 - 5 %) 3.0 Basophils % (0.0 - 2.0 %) 0.3 Absolute Granulocytes (1.4 - 6.5 /CUMM) 14.0 H Absolute Lymphocytes (1.2 - 3.4 /CUMM) 2.6 Absolute Monocytes (0.10 - 0.60 /CUMM) 1.3 H Absolute Eosinophils (0.0 - 0.7 /CUMM) 0.6 Absolute Basophils (0.0 - 0.2 /CUMM) 0.1 NATALEE-negative in 2016 Imaging/Other Studies: 1. chest x-ray no active disease 2. CTA chest-no pulmonary emboli 3. CT abdomen and pelvis-no acute issues 4. Doppler ultrasound-no DVT in lower extremities 5. Doppler ultrasound-right upper extremity DVT Assessment/Plan Assessment: 1. leukocytosis with left shift-careful review of the hospital records/computer documented leukocytosis since 2013. Myeloproliferative disorders are still possible. Recommend- Flow cytometry MARCUS-2 analysis bcr-abl This can easily be accomplished as an outpatient 2. Right upper extremity [id number] line currently in place not on anticoagulation. Strong consideration should be given to removal of the PICC line and +/-short-term anticoagulation. Would reimage right upper extremity or possible clot propagation Recommendations: .. Consult Acknowledgment - Thank you for your consult request.
[2017-10-16 08:09] LABS: ABSOLUTE BASOPHIL COUNT 0.1 /CUMM (0.0-0.2); ABSOLUTE EOSINOPHIL COUNT 0.7 /CUMM (0.0-0.7); ABSOLUTE GRANULOCYTE CT 9.2 /CUMM (1.4-6.5); ABSOLUTE LYMPH COUNT 2.4 /CUMM (1.2-3.4); ABSOLUTE MONOCYTE COUNT 1.3 /CUMM (0.10-0.60); BASOPHIL % 0.5 % (0.0-2.0); EOSINOPHIL % 5.3 % (0-5); GRANULOCYTE % 67.4 % (42.2-75.2); HEMATOCRIT 30.3 % (37-47); MEAN CORPUSCULAR HGB 29.7 PG (27.0-31.0); MEAN CORPUSCULAR HGB CONC 33.4 G/DL (33.0-37.0); MEAN CORPUSCULAR VOLUME 88.8 FL (81.0-99.0); MEAN PLATELET VOLUME 7.6 FL (7.4-10.4); RBC DISTRIBUTION WIDTH 15.3 % (11.5-14.5); RED BLOOD CELL CT 3.41 /CUMM (4.20-5.40)
--- NOTE | 2017-10-16 08:26 | PN- Housestaff ---
Rita HARRIS,Dar 10/16/17 0825: Subjective Follow-up For: Acute blood loss anemia DVT right upper extremity Persistent leukocytosis Tele-Events Since Last Visit: Sinus rhythm HR 60s-80s Subjective: Patient was seen and examined at bedside. She was resting comfortably in a chair. She had no acute events overnight. She reports that she is having some mild right groin pain which occurred after transitioning from the commode to her bed. She also complains of mild pain and tenderness of the left volar aspect of the forearm as well as some swelling. She is also reporting mild gas pain. Other than that she offers no complaints. Review of Systems Constitutional: Denies: chills, fever. Cardiovascular: Reports: no symptoms. Respiratory: Reports: no symptoms. Gastrointestinal: Reports: bloating. Genitourinary: Reports: no symptoms. Musculoskeletal: Reports: see HPI, joint pain. Objective Last 24 Hrs of Vital Signs/I&O Vital Signs Date Time Temp Pulse Resp B/P B/P Pulse O2 O2 Flow FiO2 Mean Ox Delivery Rate 10/16 06 98.1 77 20 150/60 97 Room Air 10/16 0044 97 Room Air Room Air 10/16 0000 92 Room Air 10/15 2250 98.8 81 19 160/100 98 10/15 1945 97 Room Air 10/15 1815 97.7 83 16 150/86 96 10/15 1615 Nasal 2.0L Cannula 10/15 1612 Nasal 2.0L Cannula 10/15 1600 97.8 90 20 170/64 95 Room Air 10/15 1008 82 160/55 10/15 0905 97 Room Air Room Air Intake & Output 10/16 1600 10/16 0800 10/16 0000 Intake Total 480 Output Total 375 1000 Balance 105 -1000 Intake, Oral 480 Output, Urine 375 1000 Patient 204 lb Weight Physical Exam General Appearance: Alert, Oriented X3, Cooperative, No Acute Distress Cardiovascular: Regular Rate, Normal S1, Normal S2 Lungs: Clear to Auscultation, Normal Air Movement Abdomen: Normal Bowel Sounds, Soft, No Tenderness Neurological: Normal Speech, Normal Tone, Sensation Intact Extremities: No Clubbing, No Cyanosis, No Edema, there is induration and tenderness to palpation of the left volar forearm Current Medications: Current Medications Sig/Clementine Start time Last Medication Dose Route Stop Time Status Admin Albuterol Sulfate 3 ML TID 10/07 2100 AC 10/16 INH 0041 Artificial Tears 2 GTT 4 TIMES/DAY 10/10 2100 AC 10/15 OPH 2145 Bisacodyl 10 MG ONCE PRN 10/14 1245 AC 10/14 IN 1340 Bisacodyl 5 MG DAILY 10/13 0845 AC 10/14 PO 0945 Budesonide/ 2 PUF BID 10/08 2100 AC 10/15 Formoterol Fumarate INH 2145 Cyclobenzaprine HCl 5 MG BID 10/14 1030 AC 10/15 PO 2145 Diclofenac Sodium 1 ALVARO 4 TIMES/DAY 10/11 1300 AC 10/15 TOP 2145 Diltiazem HCl 120 MG DAILY 10/12 0900 AC 10/15 PO 1008 Guaifenesin 10 ML Q6P PRN 10/12 2030 AC 10/14 PO 2130 Guaifenesin 600 MG Q12 10/08 2100 AC 10/15 PO 2145 Heparin Sodium 5,000 UNIT Q8 10/13 1400 AC 10/16 (Porcine) SC 0616 Hydrocodone Bitart/ 1 TAB Q4 HRS NEEDED PRN 10/10 0715 AC 10/11 Acetaminophen PO 1448 Hydrocodone Bitart/ 2 TAB Q4 HRS NEEDED PRN 10/10 0715 AC 10/16 Acetaminophen PO 0743 Insulin Aspart 0 TIDAC 10/13 1200 AC 10/15 SC 1708 Ipratropium [place] 2.5 ML TID 10/07 2100 DC 10/15 INH 1338 Lidocaine 1 PAT DAILY 10/13 1813 AC 10/15 EXT 1008 Losartan Potassium 25 MG DAILY 10/10 1121 AC 10/15 PO 1008 Montelukast Sodium 10 MG AT BEDTIME 10/08 2100 AC 10/15 PO 2145 Morphine Sulfate 2 MG Q3P PRN 10/08 1345 DC 10/15 IV 1137 Ondansetron HCl 4 MG Q6P PRN 10/07 1945 AC 10/08 IV 0950 Pantoprazole Sodium 40 MG DAILY 10/08 09 AC 10/15 IV 1007 Polyethylene Glycol 17 GM DAILY 10/09 1115 AC 10/15 PO 1007 Senna/Docusate Sodium 2 TAB DAILY 10/13 0900 AC 10/15 PO 1007 Sodium Chloride 2 SPRAY Q4P PRN 10/14 2000 AC KIM Last 24 Hrs of Lab/Chucky Results Last 24 Hrs of Labs/Mics: Laboratory Tests 10/16/17 0630: Anion Gap 5, Estimated GFR > 60, Glucose 171 H, Calcium 8.3 L, Phosphorus 3.4, Magnesium 1.5 L, Total Bilirubin 0.4, AST 16, ALT 31, Albumin 2.5 L, CBC w Diff NO MAN DIFF REQ, RBC 3.41 L, MCV 88.8, MCH 29.7, MCHC 33.4, RDW 15.3 H, MPV 7.6, Gran % 67.4, Lymphocytes % 17.3 L, Monocytes % 9.5 H, Eosinophils % 5.3 H, Basophils % 0.5, Absolute Granulocytes 9.2 H, Absolute Lymphocytes 2.4, Absolute Monocytes 1.3 H, Absolute Eosinophils 0.7, Absolute Basophils 0.1 Assessment/Plan Assessment: 71-year-old woman with PMHx of Asthma, COPD not on home oxygen, history of multiple admissions for MRSA pneumonia, HTN, HLD, T2DM, TIA on Plavix, insomnia, GERD, osteoarthritis, carpal tunnel syndrome, PVD, bilateral lung nodules, 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 Patient was transferred out of the ICU to the telemetry floor on 11/11/2017 #Right upper extremity DVT DVT is surrounding the PICC line. One of the 2 lm is occluded. After discussion with Dr. Trinidad, IR, today they are unwilling to put in another PICC line so that the current one may be removed stating that the standard of care is to treat through the PICC line already in place. -We will begin IV heparin for DVT protocol and observe for any signs of bleeding -We'll begin bridging to Coumadin in a day or 2 after a period of observation on IV heparin -Patient is properly bridged we will remove the PICC line prior to discharge #Persistent leukocytosis WBC continues to trend down. Patient was seen and evaluated by the heme/onc today -We'll refer to heme for outpatient workup of potential MDS -Continue to trend WBC #Status post laminectomy Surgical recommendations appreciated, will continue to follow. #Acute blood loss anemia H/H has remained stable -Continue to follow CBC #Chronic medical problems Continue current medical regimen DVT prophylaxis: IV heparin Diet: Diabetic diet CODE STATUS: Full code Problem List: 1. DVT (deep venous thrombosis) Pain Ratin Pain Location: Right groin, left forearm, back Pain Goal: Pain 4 or less Pain Plan: Pain pathway Tomorrow's Labs & Rationales: CBC, BEP Mekhi HARRISMichellelisseth 10/16/17 1201: Attending MD Review Statement Attending Statement Attending MD Statement: examined this patient, discuss w/resident/PA/CREDIT COLLECTIONS MANAGER, agreed w/resident/PA/CREDIT COLLECTIONS MANAGER, reviewed EMR data (avail) Attending Assessment/Plan: 71F PMH COPD not on home oxygen, history of MRSA pneumonia, HTN, HLD, T2DM, TIA on Plavix, insomnia, GERD, osteoarthritis, carpal tunnel syndrome, PVD, bilateral lung nodules, previous occluded right internal carotid artery with no significant flow, chronic back pain status post spinal fusion in 2012, was admitted to surgical service on 10/06/2017 for severe back pain, and claudication, found to have severe spinal stenosis requiring laminectomy on . Course was complicated by acute blood loss anemia requiring transfusion with junctional rhythm zachary-operatively that has resolved, also now with RUE DVT surrounding PICC. Patient complains of significant back pain today. It is relieved by Vicodin but has now worn off. She has no other complaints and is able to walk with walker. 1. RUE DVT 2. S/p laminectomy 3. Acute blood loss anemia Plan - Continue on telemetry - Will speak with vascular surgery regarding plan for RUE DVT and IV line that is in place, will need to be pulled, and when to start anti-coagulation, which should be with Coumadin so that it is reversible in case of further bleeding - Continue home medications
[2017-10-16 09:01] LABS: WHITE BLOOD CELL COUNT 13.6 /CUMM (4.8-10.8)
[2017-10-16 09:02] LABS: PLATELET COUNT 297 /CUMM (130-400)
[2017-10-16 09:07] VITALS: BP 178/62
--- NOTE | 2017-10-16 09:44 | PN- Pulmonary ---
Subjective HPI/Critical Care Issues: pt seen and examined 97% on room air transferred out of ICU Objective Current Medications: Current Medications Sig/Clementine Start time Last Medication Dose Route Stop Time Status Admin Albuterol Sulfate 3 ML TID 10/07 2100 AC 10/16 INH 0834 Artificial Tears 2 GTT 4 TIMES/DAY 10/10 2100 AC 10/16 OPH 0920 Bisacodyl 10 MG ONCE PRN 10/14 1245 AC 10/14 CA 1340 Bisacodyl 5 MG DAILY 10/13 0845 AC 10/16 PO 0910 Budesonide/ 2 PUF BID 10/08 2100 AC 10/16 Formoterol Fumarate INH 0919 Cyclobenzaprine HCl 5 MG BID 10/14 1030 AC 10/16 PO 0910 Diclofenac Sodium 1 ALVARO 4 TIMES/DAY 10/11 1300 AC 10/15 TOP 2145 Diltiazem HCl 120 MG DAILY 10/12 0900 AC 10/16 PO 0910 Guaifenesin 10 ML Q6P PRN 10/12 2030 AC 10/14 PO 2130 Guaifenesin 600 MG Q12 10/08 2100 AC 10/16 PO 0910 Heparin Sodium 5,000 UNIT Q8 10/13 1400 AC 10/16 (Porcine) SC 0616 Hydrocodone Bitart/ 1 TAB Q4 HRS NEEDED PRN 10/10 0715 AC 10/11 Acetaminophen PO 1448 Hydrocodone Bitart/ 2 TAB Q4 HRS NEEDED PRN 10/10 0715 AC 10/16 Acetaminophen PO 0743 Insulin Aspart 0 TIDAC 10/13 1200 AC 10/16 SC 0909 Ipratropium [place] 2.5 ML TID 10/07 2100 DC 10/15 INH 1338 Lidocaine 1 PAT DAILY 10/13 1813 AC 10/16 EXT 0911 Losartan Potassium 25 MG DAILY 10/10 1121 AC 10/16 PO 0910 Montelukast Sodium 10 MG AT BEDTIME 10/08 2100 AC 10/15 PO 2145 Morphine Sulfate 2 MG Q3P PRN 10/08 1345 DC 10/15 IV 1137 Ondansetron HCl 4 MG Q6P PRN 10/07 1945 AC 10/08 IV 0950 Pantoprazole Sodium 40 MG DAILY 10/08 0900 AC 10/16 IV 0911 Polyethylene Glycol 17 GM DAILY 10/09 1115 AC 10/16 PO 0909 Senna/Docusate Sodium 2 TAB DAILY 10/13 0900 AC 10/15 PO 1007 Sodium Chloride 2 SPRAY Q4P PRN 10/15 1999 AC 10/16 KIM 0922 Vital Signs & I&O Last 24 Hrs of Vitals and I&O: Vital Signs Date Time Temp Pulse Resp B/P B/P Pulse O2 O2 Flow FiO2 Mean Ox Delivery Rate 10/16 0910 87 178/62 10/16 0907 87 178/62 10/16 0605 98.1 77 20 150/60 97 Room Air 10/16 0044 97 Room Air Room Air 10/16 0000 92 Room Air 10/15 2250 98.8 81 19 160/100 98 10/15 1945 97 Room Air 10/15 1815 97.7 83 16 150/86 96 10/15 1615 Nasal 2.0L Cannula 10/15 1612 Nasal 2.0L Cannula 10/15 1600 97.8 90 20 170/64 95 Room Air 10/15 1008 82 160/55 Intake & Output 10/16 1600 10/16 0800 10/16 0000 Intake Total 480 Output Total 375 1000 Balance 105 -1000 Intake, Oral 480 Output, Urine 375 1000 Patient 204 lb Weight Exam Other Physical Findings: awake and alert room air diminished bs abd soft mild edema back dressing intact Results Last 24 Hrs of Lab Results: Laboratory Tests 10/16/17 0630: Anion Gap 5, Estimated GFR > 60, Glucose 171 H, Calcium 8.3 L, Phosphorus 3.4, Magnesium 1.5 L, Total Bilirubin 0.4, AST 16, ALT 31, Albumin 2.5 L, CBC w Diff NO MAN DIFF REQ, RBC 3.41 L, MCV 88.8, MCH 29.7, MCHC 33.4, RDW 15.3 H, MPV 7.6, Gran % 67.4, Lymphocytes % 17.3 L, Monocytes % 9.5 H, Eosinophils % 5.3 H, Basophils % 0.5, Absolute Granulocytes 9.2 H, Absolute Lymphocytes 2.4, Absolute Monocytes 1.3 H, Absolute Eosinophils 0.7, Absolute Basophils 0.1 Impression/Plan Impression/Plan Impression/Plan: Impression 71 year old woman * extensive back surgery * acute blood loss anemia, likely surgical site * RUE DVT * hx of asthma * hx of MRSA pna * leukocytosis improved - etiology - ?hematological disorder Plan -trc/nebs, symbicort -monitor saturations -off abx, has chronically elevated leukocytosis, no indication for any infection at this time, continue to trend and inquire with hematology regarding pursuing a hematological workup -leukocytosis is trending down -f/u cardiology recommendations -aspirin was recommended - however the patient has an allergy to aspirin and this will not be started -monitor cbc, platelets -f/u vascular sx regarding picc line/RUE DVT -repeat RUE imaging -if continues to have a stable hgb without bleeding, will need to evaluate termite control technician a/c options, such as pradaxa vs coumadin, would avoid xarelto likely DVT prophylaxis at all times
--- NOTE | 2017-10-16 11:28 | PN- Neurosurgical ---
See Addendum Subjective Subjective: Reports pain not well controlled this morning with vicodin. Out of bed to chair and requiring assist of 2 with rolling walker to get from chair to commode. PICC line still in place in right upper extremity. Objective Vital Signs and I&Os Vital Signs Date Time Temp Pulse Resp B/P B/P Pulse O2 O2 Flow FiO2 Mean Ox Delivery Rate 10/16 0955 96 Room Air Room Air 10/16 0910 87 178/62 10/16 0907 87 178/62 10/16 0800 Room Air 10/16 0605 98.1 77 20 150/60 97 Room Air 10/16 0044 97 Room Air Room Air 10/16 0000 92 Room Air 10/15 2250 98.8 81 19 160/100 98 10/15 1945 97 Room Air 10/15 1815 97.7 83 16 150/86 96 10/15 1615 Nasal 2.0L Cannula 10/15 1612 Nasal 2.0L Cannula 10/15 1600 97.8 90 20 170/64 95 Room Air Intake & Output 10/16 1600 10/16 0800 10/16 0000 10/15 1600 10/15 0800 10/15 0000 Intake Total 480 740 120 500 Output Total 375 1000 450 625 900 Balance 105 -1000 290 -505 -400 Intake, IV 20 Intake, Oral 480 720 120 500 Number 0 1 Bowel Movements Output, Urine 375 1000 450 625 900 Patient 204 lb Weight Physical Exam: General - alert & oriented x 3. uncomfortable. no acute distress. Lumbar - brace in place (removed to change dressing). lumbar incision well approximated with maya. no erythema or exudates. no drains in place. dry guaze dressing replaced over lumbar incision. Extremities - warm bilaterally. no c/c/e. calves soft and nontender b/l. rue picc remains in place, without evidence no erythema, nontender, site clean/dry. no gross motor or sensory deficits. Current Medications: Current Medications Sig/Clementine Start time Last Medication Dose Route Stop Time Status Admin Albuterol Sulfate 3 ML TID 10/07 2099 AC 10/16 INH 0834 Artificial Tears 2 GTT 4 TIMES/DAY 10/10 2099 AC 10/16 OPH 0920 Bisacodyl 10 MG ONCE PRN 10/14 1245 AC 10/14 IN 1340 Bisacodyl 5 MG DAILY 10/13 0845 AC 10/16 PO 0910 Budesonide/ 2 PUF BID 10/08 2100 AC 10/16 Formoterol Fumarate INH 0919 Cyclobenzaprine HCl 5 MG BID 10/14 1030 AC 10/16 PO 0910 Diclofenac Sodium 1 ALVARO 4 TIMES/DAY 10/11 1300 AC 10/15 TOP 2145 Diltiazem HCl 120 MG DAILY 10/12 0900 AC 10/16 PO 0910 Guaifenesin 10 ML Q6P PRN 10/12 2030 AC 10/14 PO 2130 Guaifenesin 600 MG Q12 10/08 2100 AC 10/16 PO 0910 Heparin Sodium 5,000 UNIT Q8 10/13 1400 AC 10/16 (Porcine) SC 0616 Hydrocodone Bitart/ 1 TAB Q4 HRS NEEDED PRN 10/10 0715 AC 10/11 Acetaminophen PO 1448 Hydrocodone Bitart/ 2 TAB Q4 HRS NEEDED PRN 10/10 0715 AC 10/16 Acetaminophen PO 0743 Insulin Aspart 0 TIDAC 10/13 1200 AC 10/16 SC 0909 Ipratropium [place] 2.5 ML TID 10/07 2100 DC 10/15 INH 1338 Lidocaine 1 PAT DAILY 10/13 1813 AC 10/16 EXT 0911 Losartan Potassium 25 MG DAILY 10/10 1121 AC 10/16 PO 0910 Montelukast Sodium 10 MG AT BEDTIME 10/08 2100 AC 10/15 PO 2145 Morphine Sulfate 2 MG ONCE ONE 10/16 1115 DC 10/16 IV 10/16 1116 1122 Morphine Sulfate 2 MG Q3P PRN 10/08 1345 DC 10/15 IV 1137 Ondansetron HCl 4 MG Q6P PRN 10/07 1945 AC 10/08 IV 0950 Pantoprazole Sodium 40 MG DAILY 10/08 09 AC 10/16 IV 0911 Polyethylene Glycol 17 GM DAILY 10/09 1115 AC 10/16 PO 0909 Senna/Docusate Sodium 2 TAB DAILY 10/13 0900 AC 10/15 PO 1007 Sodium Chloride 2 SPRAY Q4P PRN 10/15 1999 AC 10/16 KIM 0922 Results Last 48 Hours of Labs: Laboratory Tests 10/16 10/15 0630 0508 Chemistry Sodium (137 - 145 mmol/L) 136 L 135 L Potassium (3.5 - 5.1 mmol/L) 4.3 4.0 Chloride (98 - 107 mmol/L) 97 L 96 L Carbon Dioxide (22 - 30 mmol/L) 33 H 34 H Anion Gap (5 - 16) 5 4 L BUN (7 - 17 mg/dL) 14 12 Creatinine (0.5 - 1.0 mg/dL) 0.7 0.6 Estimated GFR (>60 ml/min) > 60 > 60 Glucose (65 - 99 mg/dL) 171 H 148 H Calcium (8.4 - 10.2 mg/dL) 8.3 L 8.1 L Phosphorus (2.5 - 4.5 mg/dL) 3.4 3.4 Magnesium (1.6 - 2.3 mg/dL) 1.5 L 1.6 Total Bilirubin (0.2 - 1.3 mg/dL) 0.4 0.5 AST (14 - 36 U/L) 16 16 ALT (9 - 52 U/L) 31 36 Albumin (3.5 - 5.0 g/dL) 2.5 L 2.5 L Hematology CBC w Diff NO MAN DIFF REQ NO MAN DIFF REQ WBC (4.8 - 10.8 /CUMM) 13.6 H 17.7 H RBC (4.20 - 5.40 /CUMM) 3.41 L 3.66 L Hgb (12.0 - 16.0 G/DL) 10.1 L 10.7 L Hct (37 - 47 %) 30.3 L 32.2 L MCV (81.0 - 99.0 FL) 88.8 88.1 MCH (27.0 - 31.0 PG) 29.7 29.1 MCHC (33.0 - 37.0 G/DL) 33.4 33.1 RDW (11.5 - 14.5 %) 15.3 H 14.9 H Plt Count (130 - 400 /CUMM) 297 246 MPV (7.4 - 10.4 FL) 7.6 7.6 Gran % (42.2 - 75.2 %) 67.4 72.6 Lymphocytes % (20.5 - 51.1 %) 17.3 L 14.8 L Monocytes % (1.7 - 9.3 %) 9.5 H 7.9 Eosinophils % (0 - 5 %) 5.3 H 4.2 Basophils % (0.0 - 2.0 %) 0.5 0.5 Absolute Granulocytes (1.4 - 6.5 /CUMM) 9.2 H 12.8 H Absolute Lymphocytes (1.2 - 3.4 /CUMM) 2.4 2.6 Absolute Monocytes (0.10 - 0.60 /CUMM) 1.3 H 1.4 H Absolute Eosinophils (0.0 - 0.7 /CUMM) 0.7 0.7 Absolute Basophils (0.0 - 0.2 /CUMM) 0.1 0.1 05/02 1406 Coagulation PT (9.4 - 12.5 SEC) 11.4 INR (0.90 - 1.19) 1.05 Hematology CBC w Diff NO MAN DIFF REQ WBC (4.8 - 10.8 /CUMM) 18.5 H RBC (4.20 - 5.40 /CUMM) 3.60 L Hgb (12.0 - 16.0 G/DL) 10.7 L Hct (37 - 47 %) 31.7 L MCV (81.0 - 99.0 FL) 88.0 MCH (27.0 - 31.0 PG) 29.6 MCHC (33.0 - 37.0 G/DL) 33.7 RDW (11.5 - 14.5 %) 14.9 H Plt Count (130 - 400 /CUMM) 220 MPV (7.4 - 10.4 FL) 7.8 Gran % (42.2 - 75.2 %) 75.7 H Lymphocytes % (20.5 - 51.1 %) 14.1 L Monocytes % (1.7 - 9.3 %) 6.9 Eosinophils % (0 - 5 %) 3.0 Basophils % (0.0 - 2.0 %) 0.3 Absolute Granulocytes (1.4 - 6.5 /CUMM) 14.0 H Absolute Lymphocytes (1.2 - 3.4 /CUMM) 2.6 Absolute Monocytes (0.10 - 0.60 /CUMM) 1.3 H Absolute Eosinophils (0.0 - 0.7 /CUMM) 0.6 Absolute Basophils (0.0 - 0.2 /CUMM) 0.1 Assessment/Plan Assessment/Plan This 71 year old female with hx htn, tia, hld, oa, dm, carotid stenosis, is POD# 9 s/p 4 level lumbar fusion, icu postop due to acute blood loss anemia and hemodynamic instability, with improving anemia after multiple transfusions, right upper extremity dvt at picc line site with one lumen occluded, and currently uncontrolled pain tolerating diet pain currently not well controlled. may consider trying alternative narcotic or adding a long acting pain medication, if vicodin not working well lumbar dressing changed (incision without evidence of infection, dry guaze dressing daily) cont hold xarelto. will clarify what a/c is recommended by vascular hep sc ordered may consider another site for peripheral access ?picc line removal if not working will clarify with vascular surgeon oob/ambulation d/c planning will d/w and
--- NOTE | 2017-10-16 12:24 | PN- Cardiology ---
Subjective Subjective: Stable cardiac status Objective Vital Signs and I&Os Vital Signs Date Time Temp Pulse Resp B/P B/P Pulse O2 O2 Flow FiO2 Mean Ox Delivery Rate 10/16 0955 96 Room Air Room Air 10/16 0910 87 178/62 10/16 0907 87 178/62 10/16 0800 Room Air 10/16 0605 98.1 77 20 150/60 97 Room Air 10/16 0044 97 Room Air Room Air 10/16 0000 92 Room Air 10/15 2250 98.8 81 19 160/100 98 10/15 1945 97 Room Air 10/15 1815 97.7 83 16 150/86 96 10/15 1615 Nasal 2.0L Cannula 10/15 1612 Nasal 2.0L Cannula 10/15 1600 97.8 90 20 170/64 95 Room Air Intake & Output 10/16 1600 10/16 0800 10/16 0000 10/15 1600 10/15 0800 10/15 0000 Intake Total 480 740 120 500 Output Total 375 1000 450 625 900 Balance 105 -1000 290 -505 -400 Intake, IV 20 Intake, Oral 480 720 120 500 Number 0 1 Bowel Movements Output, Urine 375 1000 450 625 900 Patient 204 lb Weight Physical Exam: General Appearance: well developed/nourished, alert, awake, oriented, mild distress related to dyspnea Head: normal HEENT: Normal Neck: supple, JVP normal, carotid upstrokes normal bilaterally, no masses or thyromegaly Respiratory: chest non-tender, essentially clear to auscultation and percussion bilaterally Cardiovascular: regular rate/rhythm, normal S1, S2, 1-2/6 systolic murmur Abdomen: normal bowel sounds, soft, non-tender Extremities: normal inspection, right upper extremity bandaged, bilateral upper extremity edema noted Vascular: Pulses are 2+ and equal bilaterally Neurologic: Grossly normal/nonfocal Current Medications: Current Medications Sig/Clementine Start time Last Medication Dose Route Stop Time Status Admin Albuterol Sulfate 3 ML TID 10/07 INH 0834 Artificial Tears 2 GTT 4 TIMES/DAY 10/10 OPH 1221 Bisacodyl 10 MG ONCE PRN 10/14 1245 AC 10/14 VT 1340 Bisacodyl 5 MG DAILY 10/13 0845 AC 10/16 PO 0910 Budesonide/ 2 PUF BID 10/08 Formoterol Fumarate INH 0919 Cyclobenzaprine HCl 5 MG BID 10/14 1030 AC 10/16 PO 0910 Diclofenac Sodium 1 ALVARO 4 TIMES/DAY 10/11 1300 AC 10/15 TOP 2145 Diltiazem HCl 120 MG DAILY 10/12 0900 AC 10/16 PO 0910 Guaifenesin 10 ML Q6P PRN 10/12 2030 AC 10/14 PO 2130 Guaifenesin 600 MG Q12 10/08 2100 AC 10/16 PO 0910 Heparin Sodium 5,000 UNIT Q8 10/13 1400 AC 10/16 (Porcine) SC 0616 Hydrocodone Bitart/ 1 TAB Q4 HRS NEEDED PRN 10/10 0715 AC 10/11 Acetaminophen PO 1448 Hydrocodone Bitart/ 2 TAB Q4 HRS NEEDED PRN 10/10 0715 AC 10/16 Acetaminophen PO 0743 Insulin Aspart 0 TIDAC 10/13 1200 AC 10/16 SC 1220 Ipratropium [place] 2.5 ML TID 10/07 2100 DC 10/15 INH 1338 Lidocaine 1 PAT DAILY 10/13 1813 AC 10/16 EXT 0911 Losartan Potassium 25 MG DAILY 10/10 1121 AC 10/16 PO 0910 Montelukast Sodium 10 MG AT BEDTIME 10/08 2100 AC 10/15 PO 2145 Morphine Sulfate 2 MG ONCE ONE 10/16 1115 DC 10/16 IV 10/16 1116 1122 Morphine Sulfate 2 MG Q3P PRN 10/08 1345 DC 10/15 IV 1137 Ondansetron HCl 4 MG Q6P PRN 10/07 1945 AC 10/08 IV 0950 Pantoprazole Sodium 40 MG DAILY 10/08 09 AC 10/16 IV 0911 Polyethylene Glycol 17 GM DAILY 10/09 1115 AC 10/16 PO 0909 Senna/Docusate Sodium 2 TAB DAILY 10/13 0900 AC 10/15 PO 1007 Sodium Chloride 2 SPRAY Q4P PRN 10/15 1999 AC 10/16 KIM 0922 Results Last 48 Hrs of Labs/Mics: Laboratory Tests 10/16/17 0630: Anion Gap 5, Estimated GFR > 60, Glucose 171 H, Calcium 8.3 L, Phosphorus 3.4, Magnesium 1.5 L, Total Bilirubin 0.4, AST 16, ALT 31, Albumin 2.5 L, CBC w Diff NO MAN DIFF REQ, RBC 3.41 L, MCV 88.8, MCH 29.7, MCHC 33.4, RDW 15.3 H, MPV 7.6, Gran % 67.4, Lymphocytes % 17.3 L, Monocytes % 9.5 H, Eosinophils % 5.3 H, Basophils % 0.5, Absolute Granulocytes 9.2 H, Absolute Lymphocytes 2.4, Absolute Monocytes 1.3 H, Absolute Eosinophils 0.7, Absolute Basophils 0.1 10/15/17 0508: Anion Gap 4 L, Estimated GFR > 60, Glucose 148 H, Calcium 8.1 L, Phosphorus 3.4, Magnesium 1.6, Total Bilirubin 0.5, AST 16, ALT 36, Albumin 2.5 L, CBC w Diff NO MAN DIFF REQ, RBC 3.66 L, MCV 88.1, MCH 29.1, MCHC 33.1, RDW 14.9 H, MPV 7.6, Gran % 72.6, Lymphocytes % 14.8 L, Monocytes % 7.9, Eosinophils % 4.2, Basophils % 0.5, Absolute Granulocytes 12.8 H, Absolute Lymphocytes 2.6, Absolute Monocytes 1.4 H, Absolute Eosinophils 0.7, Absolute Basophils 0.1 10/14/17 1406: PT 11.4, INR 1.05, CBC w Diff NO MAN DIFF REQ, RBC 3.60 L, MCV 88.0, MCH 29.6, MCHC 33.7, RDW 14.9 H, MPV 7.8, Gran % 75.7 H, Lymphocytes % 14.1 L, Monocytes % 6.9, Eosinophils % 3.0, Basophils % 0.3, Absolute Granulocytes 14.0 H, Absolute Lymphocytes 2.6, Absolute Monocytes 1.3 H, Absolute Eosinophils 0.6 , Absolute Basophils 0.1 Assessment/Plan Assessment/Plan Assessment: 1. Status post back fusion surgery 2. Intraoperative and postoperative bradycardia and hypotension, improved 3. Acute blood loss anemia on Xarelto 4. Left upper extremity deep vein thrombus 5. History of hypertension 6. History of hyperlipidemia 7. History of bilateral carotid plaque Plan: * Anticoagulation remains on hold to recent bleeding issues. Would discuss with surgery regarding timing of restarting anticoagulation. * Given the history of bleeding while on Xarelto, would consider changing to Pradaxa when anticoagulation is restarted since a reversal agent is available for Pradaxa * Continue diltiazem and losartan Continue telemetry? Yes
[2017-10-16 14:20] VITALS: BP 148/76
[2017-10-16 23:29] VITALS: BP 146/52
[2017-10-17 00:49] LABS: PTT > 120 SEC (25-37)
[2017-10-17 07:05] VITALS: BP 138/60
[2017-10-17 08:32] LABS: ABSOLUTE BASOPHIL COUNT 0.1 /CUMM (0.0-0.2); ABSOLUTE EOSINOPHIL COUNT 0.9 /CUMM (0.0-0.7); ABSOLUTE LYMPH COUNT 2.3 /CUMM (1.2-3.4); ABSOLUTE MONOCYTE COUNT 1.5 /CUMM (0.10-0.60); BASOPHIL % 0.5 % (0.0-2.0); GRANULOCYTE % 68.1 % (42.2-75.2); HEMATOCRIT 30.6 % (37-47); MEAN CORPUSCULAR HGB 29.5 PG (27.0-31.0); MEAN CORPUSCULAR HGB CONC 33.2 G/DL (33.0-37.0); MEAN CORPUSCULAR VOLUME 88.9 FL (81.0-99.0); MEAN PLATELET VOLUME 7.6 FL (7.4-10.4); PLATELET COUNT 325 /CUMM (130-400); RBC DISTRIBUTION WIDTH 15.6 % (11.5-14.5); RED BLOOD CELL CT 3.45 /CUMM (4.20-5.40); WHITE BLOOD CELL COUNT 14.7 /CUMM (4.8-10.8)
[2017-10-17 08:40] VITALS: BP 174/64
--- NOTE | 2017-10-17 08:41 | PN- Housestaff ---
Alfred HARRIS,Eric 10/17/17 0841: Subjective Follow-up For: Acute blood loss anemia DVT right upper extremity Persistent leukocytosis Tele-Events Since Last Visit: sinus rhythm, no events Subjective: no overnight events Review of Systems Constitutional: Reports: see HPI. Objective Last 24 Hrs of Vital Signs/I&O Vital Signs Date Time Temp Pulse Resp B/P B/P Pulse O2 O2 Flow FiO2 Mean Ox Delivery Rate 10/17 0917 97 Room Air 10/17 0852 76 174/64 10/17 0840 76 174/64 10/17 0800 Room Air 10/17 0705 98.1 74 20 138/60 94 Room Air 10/16 2329 97.8 75 20 146/52 100 Room Air 10/16 2104 98 Room Air Room Air 10/16 1420 98.0 85 20 148/76 96 Intake & Output 10/17 1600 10/17 0800 10/17 0000 Intake Total 263 Output Total 400 200 Balance -137 -200 Intake, IV 163 Intake, Oral 100 Output, Urine 400 200 Patient 93.1 kg Weight Physical Exam General Appearance: Alert, Oriented X3, Cooperative, No Acute Distress Cardiovascular: Regular Rate, Normal S1, Normal S2, No Murmurs Lungs: Clear to Auscultation, Normal Air Movement Abdomen: Normal Bowel Sounds, Soft, No Tenderness, No Masses Extremities: No Clubbing, No Cyanosis, No Edema, Normal Pulses, left forearm tender Current Medications: Current Medications Sig/Clementine Start time Last Medication Dose Route Stop Time Status Admin Al Hydroxide/Mg 30 ML Q4-6 PRN PRN 10/16 1530 CAN Hydroxide PO Albuterol Sulfate 3 ML TID 10/07 2100 AC 10/17 INH 0914 Artificial Tears 2 GTT 4 TIMES/DAY 10/10 2100 AC 10/17 OPH 0853 Bisacodyl 10 MG ONCE PRN 10/14 1245 AC 10/14 WA 1340 Bisacodyl 5 MG DAILY 10/13 0845 AC 10/16 PO 0910 Budesonide/ 2 PUF BID 10/08 2100 AC 10/17 Formoterol Fumarate INH 0900 Cyclobenzaprine HCl 5 MG BID 10/14 1030 AC 10/17 PO 0852 Diclofenac Sodium 1 ALVARO 4 TIMES/DAY 10/11 1300 AC 10/15 TOP 2145 Diltiazem HCl 120 MG DAILY 10/12 0900 AC 10/17 PO 0851 Guaifenesin 10 ML Q6P PRN 10/12 2030 AC 10/14 PO 2130 Guaifenesin 600 MG Q12 10/08 2100 AC 10/17 PO 0852 Heparin Sodium 5,000 UNIT Q8 10/13 1400 DC 10/16 (Porcine) SC 1407 Heparin Sodium/ 25,000 UNIT Q24H 10/16 1515 AC 10/16 Dextrose IV 1702 Dextrose/Water 500 ML Hydrocodone Bitart/ 1 TAB Q4 HRS NEEDED PRN 10/10 0715 AC 10/11 Acetaminophen PO 1448 Hydrocodone Bitart/ 2 TAB Q4 HRS NEEDED PRN 10/10 0715 AC 10/17 Acetaminophen PO 1018 Insulin Aspart 0 TIDAC 10/13 1200 AC 10/17 SC 0849 Lidocaine 1 PAT DAILY 10/13 1813 AC 10/17 EXT 0852 Losartan Potassium 25 MG DAILY 10/10 1121 AC 10/17 PO 0852 Magnesium Oxide 400 MG BID 10/17 1004 AC 10/17 PO 10/18 210 1018 Magnesium Sulfate 1 GM ONCE ONE 10/16 1315 DC 10/16 Dextrose/Water 100 ML IV 10/16 1714 1407 Montelukast Sodium 10 MG AT BEDTIME 10/08 2100 AC 10/16 PO 2017 Morphine Sulfate 2 MG ONCE ONE 10/16 1115 DC 10/16 IV 10/16 1116 1122 Ondansetron HCl 4 MG Q6P PRN 10/07 1945 AC 10/08 IV 0950 Pantoprazole Sodium 40 MG DAILY 10/08 0900 AC 10/17 IV 0852 Polyethylene Glycol 17 GM DAILY 10/09 1115 AC 10/17 PO 0849 Senna/Docusate Sodium 2 TAB DAILY 10/13 0900 AC 10/15 PO 1007 Simethicone 40 MG Q6P PRN 10/16 1500 AC 10/16 PO 1628 Sodium Chloride 2 SPRAY Q4P PRN 10/14 2000 AC 10/16 KIM 0922 Warfarin Sodium 5 MG COUMADIN 1700 ONE 10/17 1700 AC PO 10/17 1701 Last 24 Hrs of Lab/Chucky Results Last 24 Hrs of Labs/Mics: Laboratory Tests 10/17/17 0810: PT 11.9, INR 1.09, APTT > 120 *H 10/17/17 0634: Magnesium Cancelled 10/17/17 0634: Anion Gap 5, Estimated GFR > 60, BUN/Creatinine Ratio 23.3, Magnesium 1.5 L, CBC w Diff NO MAN DIFF REQ, RBC 3.45 L, MCV 88.9, MCH 29.5, MCHC 33.2, RDW 15.6 H, MPV 7.6, Gran % 68.1, Lymphocytes % 15.5 L, Monocytes % 9.9 H, Eosinophils % 6.0 H, Basophils % 0.5, Absolute Granulocytes 10.0 H, Absolute Lymphocytes 2.3, Absolute Monocytes 1.5 H, Absolute Eosinophils 0.9, Absolute Basophils 0.1 10/16/17 2349: APTT > 120 *H Assessment/Plan Assessment: 71-year-old woman with PMHx of Asthma, COPD not on home oxygen, history of multiple admissions for MRSA pneumonia, HTN, HLD, T2DM, TIA on Plavix, insomnia, GERD, osteoarthritis, carpal tunnel syndrome, PVD, bilateral lung nodules, 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 Patient was transferred out of the ICU to the telemetry floor on 11/11/2017 RUE DVT: DVT surrounding the PICC line 1 lumen occluded Plan to replace PICC IV heparin bridge to coumadin Follow up repeat RUE ultrasound Persistent leukocytosis Follow up hematology/oncology Continue to trend WBC Laminectomy: Follow up neurosurgical recommendations Acute blood loss anemia CBC stable on IV heparin Start coumadin today 5mg Daily INR Diabetic diet DVT ppx-IV heparin and coumadin Full code Problem List: 1. DVT (deep venous thrombosis) 2. Leukocytosis 3. Spondylosis of lumbar spine Pain Ratin Pain Location: back Pain Goal: Pain 4 or less Pain Plan: prn Tomorrow's Labs & Rationales: cbc, pt/inr Oleg Kahn MD 10/17/17 1117: Attending MD Review Statement Attending Statement Attending Statement: examined this patient, discuss w/resident/PA/ENGLISH ADJUNCT FACULTY, agreed w/resident/PA/ENGLISH ADJUNCT FACULTY, discussed with family, reviewed EMR data (avail), discussed with nursing, discussed with case mgmt, reviewed images, amended to note Attending Assessment/Plan: I, Oleg Femi, M.D. have examined this patient, reviewed available EMR data, personally reviewed images, discussed with resident/PA/ENGLISH ADJ[employer]CT FACULTY, discussed management plan with housestaff and nursing staff, discussed managment plan all of healthcare providers, discussed management plan with patient and/or family, agreed with resident/PA/ENGLISH ADJ[employer]CT FACULTY. The past history and parts of the chart have been autopopulated. Impression 71 year old woman * extensive back surgery * acute blood loss anemia, likely surgical site * RUE DVT * hx of asthma * hx of MRSA pna * leukocytosis improved - etiology - ?hematological disorder Plan -trc/nebs, symbicort -monitor saturations -off abx, has chronically elevated leukocytosis, no indication for any infection at this time, continue to trend and inquire with hematology regarding pursuing a hematological workup -leukocytosis is trending down -f/u cardiology recommendations -aspirin was recommended - however the patient has an allergy to aspirin and this will not be started -monitor cbc, platelets -f/u vascular sx regarding picc line/RUE DVT -f/u RUE imaging -initiate coumadin 5mg tonight, in dicussion with patient, agreed upon coumadin with heparin as a 5 days overlap and therapeutic for 24 hrs - goal INR 2-3 DVT prophylaxis at all times
[2017-10-17 09:23] LABS: PTT > 120 SEC (25-37)
[2017-10-17 09:28] LABS: PT 11.9 SEC (9.4-12.5)
--- NOTE | 2017-10-17 16:19 | ULTRASOUND REPORT ---
EXAMINATION: US TRIPLEX UPPER EXTREMITY, RIGHT CLINICAL INFORMATION: History of right upper extremity DVT, evaluate for propagation COMPARISON: 10/08/2017 TECHNIQUE: Color-flow triplex imaging with spectral analysis and compression Doppler were performed on the lower extremity. FINDINGS: Limited evaluation due to presence of bandaging. Decreased clot burden within the upper brachial vein. Decreased clot burden within the basilic vein with improved compressibility and color flow. No evidence of thrombus within the internal jugular vein, innominate vein, subclavian vein, axillary vein, cephalic vein. IMPRESSION: Improved appearance with decreasing clot burden within the brachial and basilic veins. There is limited visualization of portions of the brachials from the mid arm to the elbow due to PICC line bandaging.
[2017-10-17 17:00] LABS: PTT > 120 SEC (25-37)
--- NOTE | 2017-10-17 17:49 | CT SCAN REPORT ---
EXAMINATION: CT HEAD WITHOUT CONTRAST CLINICAL INFORMATION: Head trauma. COMPARISON: None TECHNIQUE: Contiguous axial imaging was performed from the skull base to vertex without intravenous administration of contrast. DLP: 621 mGy-cm FINDINGS: No acute intracranial hemorrhage or extra-axial fluid collection. There is chronic encephalomalacia in the right parietal lobe. No acute territorial infarction demonstrated. No hydrocephalus. Incidental cavum septum lucidum. No mass effect or midline shift. No calvarial fracture. Mild mucosal thickening within the sphenoid sinus. Mastoid air cells are aerated. No subgaleal hematoma. IMPRESSION: No acute intracranial pathology. Chronic right parietal encephalomalacia.
[2017-10-17 22:36] VITALS: BP 172/70
[2017-10-18 01:15] LABS: PTT 44 SEC (25-37)
[2017-10-18 06:09] LABS: ABSOLUTE BASOPHIL COUNT 0.1 /CUMM (0.0-0.2); ABSOLUTE EOSINOPHIL COUNT 0.8 /CUMM (0.0-0.7); ABSOLUTE GRANULOCYTE CT 8.4 /CUMM (1.4-6.5); ABSOLUTE LYMPH COUNT 2.6 /CUMM (1.2-3.4); ABSOLUTE MONOCYTE COUNT 1.4 /CUMM (0.10-0.60); BASOPHIL % 0.4 % (0.0-2.0); GRANULOCYTE % 63.6 % (42.2-75.2); HEMATOCRIT 31.2 % (37-47); MEAN CORPUSCULAR HGB 29.3 PG (27.0-31.0); MEAN CORPUSCULAR HGB CONC 32.7 G/DL (33.0-37.0); MEAN CORPUSCULAR VOLUME 89.5 FL (81.0-99.0); PLATELET COUNT 373 /CUMM (130-400); RBC DISTRIBUTION WIDTH 15.6 % (11.5-14.5); RED BLOOD CELL CT 3.48 /CUMM (4.20-5.40); WHITE BLOOD CELL COUNT 13.2 /CUMM (4.8-10.8)
[2017-10-18 06:10] LABS: PT 11.7 SEC (9.4-12.5)
[2017-10-18 06:41] VITALS: BP 170/70
--- NOTE | 2017-10-18 09:12 | PN- Housestaff ---
Rita HARRIS,Dar 10/18/17911: Subjective Follow-up For: Right upper extremity DVT Status post laminectomy POD #11 Tele-Events Since Last Visit: Sinus rhythm HR 70s80s Subjective: Patient was seen and examined at bedside. Patient is currently complaining of severe back pain with since her bandages were changed. Chest wall is that her lower extremities are slightly swollen today. She has no other complaints at this time. While being taken down to ultrasound yesterday transportation lost control of her wheelchair and she ended up hitting her head on an IV pole. CT head was negative for any acute pathology. He denies any chest pain, shortness of breath, nausea, vomiting, fever, chills.. Review of Systems Constitutional: Reports: see HPI. Objective Last 24 Hrs of Vital Signs/I&O Vital Signs Date Time Temp Pulse Resp B/P B/P Pulse O2 O2 Flow FiO2 Mean Ox Delivery Rate 10/18 0902 98 Room Air 10/18 0819 81 160/62 10/18 0800 Room Air 10/18 0641 97.6 78 20 170/70 95 Room Air 10/17 2236 98.6 85 18 172/70 96 Room Air 10/17 1936 97 Room Air Room Air 10/17 0917 97 Room Air Intake & Output 10/18 1600 10/18 0800 10/18 0000 Intake Total 380 780.5 Output Total 1000 650 Balance -620 130.5 Intake, IV 80 60.5 Intake, Oral 300 720 Output, Urine 1000 650 Patient 193 lb Weight Physical Exam General Appearance: Alert, Oriented X3, Cooperative Skin Temp/Moisture Exam: Warm/Dry Cardiovascular: Regular Rate, Normal S1, Normal S2 Lungs: Clear to Auscultation, Normal Air Movement Abdomen: Normal Bowel Sounds, Soft, No Tenderness Neurological: Normal Speech, Normal Tone, Sensation Intact Extremities: No Clubbing, No Cyanosis, 1+ PITTING EDEMA OF THE DISTAL EXTREMITIES Current Medications: Current Medications Sig/Clementine Start time Last Medication Dose Route Stop Time Status Admin Albuterol Sulfate 3 ML TID 10/07 2099 AC 10/18 INH 0901 Artificial Tears 2 GTT 4 TIMES/DAY 10/10 2099 AC 10/18 OPH 0821 Bisacodyl 10 MG ONCE PRN 10/14 1245 AC 10/14 WI 1340 Bisacodyl 5 MG DAILY 10/13 0845 AC 05/04 PO 0910 Budesonide/ 2 PUF 0700,1900 10/18 1900 AC 10/18 Formoterol Fumarate INH 0822 Budesonide/ 2 PUF BID 10/08 2100 DC 10/17 Formoterol Fumarate INH 2016 Cyclobenzaprine HCl 5 MG BID 10/14 1030 AC 10/18 PO 0819 Diclofenac Sodium 1 ALVARO 4 TIMES/DAY 10/11 1300 AC 10/15 TOP 2145 Diltiazem HCl 120 MG DAILY 10/12 0900 AC 10/18 PO 0819 Guaifenesin 10 ML Q6P PRN 10/12 2030 AC 10/14 PO 2130 Guaifenesin 600 MG Q12 10/08 2100 AC 10/18 PO 0819 Heparin Sodium 6,578 UNIT BOLUS ONE 10/18 0230 DC 10/18 (Porcine) IV 10/18 0231 0230 Heparin Sodium/ 25,000 UNIT Q24H 10/16 1515 AC 10/17 Dextrose IV 1621 Dextrose/Water 500 ML Hydrocodone Bitart/ 1 TAB Q4 HRS NEEDED PRN 10/10 0715 AC 10/17 Acetaminophen PO 1625 Hydrocodone Bitart/ 2 TAB Q4 HRS NEEDED PRN 10/10 0715 AC 10/18 Acetaminophen PO 0543 Insulin Aspart 0 TIDAC 10/13 1200 AC 10/18 SC 0816 Lidocaine 1 PAT DAILY 10/13 1813 AC 10/18 EXT 0817 Losartan Potassium 25 MG DAILY 10/10 1121 AC 10/18 PO 0819 Magnesium Oxide 400 MG BID 10/17 1004 AC 10/18 PO 10/18 2101 0819 Montelukast Sodium 10 MG AT BEDTIME 10/08 2100 AC 10/17 PO 2014 Ondansetron HCl 4 MG Q6P PRN 10/07 1945 AC 10/08 IV 0950 Pantoprazole Sodium 40 MG DAILY 10/08 0900 AC 10/18 IV 0817 Polyethylene Glycol 17 GM DAILY 10/09 1115 AC 10/17 PO 0849 Senna/Docusate Sodium 2 TAB DAILY 10/13 0900 AC 10/15 PO 1007 Simethicone 40 MG Q6P PRN 10/16 1500 AC 10/16 PO 1628 Sodium Chloride 2 SPRAY Q4P PRN 10/14 2000 AC 10/16 KIM 0922 Warfarin Sodium 5 MG COUMADIN 1700 ONE 10/17 1700 DC 10/17 PO 10/17 1701 1620 Last 24 Hrs of Lab/Chucky Results Last 24 Hrs of Labs/Mics: Laboratory Tests 10/18/17 0830: APTT 50 H 10/18/17 0552: PT 11.7, INR 1.07, CBC w Diff NO MAN DIFF REQ, RBC 3.48 L, MCV 89.5, MCH 29.3, MCHC 32.7 L, RDW 15.6 H, MPV 7.0 L, Gran % 63.6, Lymphocytes % 19.6 L, Monocytes % 10.4 H, Eosinophils % 6.0 H, Basophils % 0.4, Absolute Granulocytes 8.4 H, Absolute Lymphocytes 2.6, Absolute Monocytes 1.4 H, Absolute Eosinophils 0.8, Absolute Basophils 0.1 10/18/17 0026: APTT 44 H 10/17/17 1545: APTT > 120 *H Orders Radiology Findings: CT head No acute intracranial hemorrhage or extra-axial fluid collection. There is chronic encephalomalacia in the right parietal lobe. No acute territorial infarction demonstrated. No hydrocephalus. Incidental cavum septum lucidum. No mass effect or midline shift. No calvarial fracture. Mild mucosal thickening within the sphenoid sinus. Mastoid air cells are aerated. No subgaleal hematoma. IMPRESSION: No acute intracranial pathology. Chronic right parietal encephalomalacia. RUE doppler US Limited evaluation due to presence of bandaging. Decreased clot burden within the upper brachial vein. Decreased clot burden within the basilic vein with improved compressibility and color flow. No evidence of thrombus within the internal jugular vein, innominate vein, subclavian vein, axillary vein, cephalic vein. IMPRESSION: Improved appearance with decreasing clot burden within the brachial and basilic veins. There is limited visualization of portions of the brachials from the mid arm to the elbow due to PICC line bandaging. Assessment/Plan Assessment: 71-year-old woman with PMHx of Asthma, COPD not on home oxygen, history of multiple admissions for MRSA pneumonia, HTN, HLD, T2DM, TIA on Plavix, insomnia, GERD, osteoarthritis, carpal tunnel syndrome, PVD, bilateral lung nodules, 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 Patient suffered very mild head trauma when she went down for her ultrasound yesterday, CT head was negative for any acute intracranial pathology. #Right upper extremity DVT Currently bridging from heparin to warfarin. INR today remains subtherapeutic. -Continue IV heparin -Continue to monitor INR and dose Coumadin -Will remove PICC line after patient isn't therapeutic INR range. #Persistent leukocytosis Persistent leukocytosis, has continues to trend down but remains steadily elevated. -Continue to trend WBC -We'll refer to heme for outpatient workup of potential MDS #Status post laminectomy Surgical recommendations appreciated, will continue to follow. #Acute blood loss anemia H/H has remained stable -Continue to follow CBC #Chronic medical problems Continue current medical regimen DVT prophylaxis: IV heparin, alps Diet: Diabetic diet CODE STATUS: Full code Problem List: 1. DVT (deep venous thrombosis) 2. Spondylosis of lumbar spine Pain Ratin Pain Location: Lower back Pain Goal: Pain 4 or less Pain Plan: Pain pathway Tomorrow's Labs & Rationales: CBC, BEP Oleg Kahn MD 10/18/17 1036: Attending MD Review Statement Attending Statement Attending Statement: examined this patient, discuss w/resident/PA/NEWS INTERN, agreed w/resident/PA/NEWS INTERN, discussed with family, reviewed EMR data (avail), discussed with nursing, discussed with case mgmt, reviewed images, amended to note Attending Assessment/Plan: Oleg Tinsley M.D. have examined this patient, reviewed available EMR data, personally reviewed images, discussed with resident/PA/NEWS INTERN, discussed management plan with housestaff and nursing staff, discussed managment plan all of healthcare providers, discussed management plan with patient and/or family, agreed with resident/PA/NEWS INTERN. The past history and parts of the chart have been autopopulated. Impression 71 year old woman * extensive back surgery * acute blood loss anemia, likely surgical site * RUE DVT * hx of asthma * hx of MRSA pna * leukocytosis improved - etiology - ?hematological disorder Plan -f/u surgical recommendations -trc/nebs, symbicort -leukocytosis can be followed up with Dr. Junior on an outpatient basis -f/u cardiology recommendations -aspirin was recommended - however the patient has an allergy to aspirin and this will not be started -monitor cbc, platelets -f/u vascular sx regarding picc line/RUE DVT -coumadin 5mg tonight, check INR in am - in dicussion with patient, agreed upon coumadin with heparin as a 5 days overlap and therapeutic for 24 hrs - goal INR 2-3 DVT prophylaxis at all times
[2017-10-18 09:30] LABS: PTT 50 SEC (25-37)
[2017-10-18 14:22] VITALS: BP 156/62
[2017-10-18 17:24] LABS: PTT > 120 SEC (25-37)
[2017-10-18 22:15] VITALS: BP 158/66
[2017-10-19 01:19] LABS: PTT 48 SEC (25-37)
[2017-10-19 06:55] VITALS: BP 146/64
--- NOTE | 2017-10-19 07:13 | PN- Housestaff ---
Rita HARRIS,Dar 10/19/1712: Subjective Follow-up For: Right upper extremity DVT Status post laminectomy POD #12 Tele-Events Since Last Visit: Sinus rhythm with HR 70s90s Subjective: Patient was seen and examined at bedside. She was in mild distress secondary to back pain. She also has less severe pain of her left forearm and right hip. This morning while working with respiratory therapy she will short of breath and complained of chest tightness and at times chest pressure. She denies any nausea, vomiting, fever, chills. Review of Systems Constitutional: Reports: see HPI. Objective Last 24 Hrs of Vital Signs/I&O Vital Signs Date Time Temp Pulse Resp B/P B/P Pulse O2 O2 Flow FiO2 Mean Ox Delivery Rate 10/19 0655 99.0 74 18 146/64 98 Room Air 10/18 2215 99.3 86 18 158/66 96 Room Air 10/18 2002 96 Room Air Room Air 10/18 1422 98.8 72 20 156/62 99 Room Air 10/18 0902 98 Room Air 10/18 0819 81 160/62 10/18 0800 Room Air Intake & Output 10/19 0810/19 0000 10/18 1600 Intake Total 510 537 734.2 Output Total 400 750 700 Balance 110 -213 34.2 Intake, IV 150 75 152.2 Intake, Oral 360 462 582 Number 2 Bowel Movements Output, Urine 400 750 700 Patient 196 lb Weight Weight Bed scale Measurement Method Physical Exam General Appearance: Alert, Oriented X3, Cooperative, Mild Distress Skin Temp/Moisture Exam: Warm/Dry Cardiovascular: Regular Rate, Normal S1, Normal S2 Lungs: Clear to Auscultation, Normal Air Movement Abdomen: Normal Bowel Sounds, Soft, mild tendernss to palpation of lower abdomen Neurological: Normal Speech, Normal Tone Extremities: No Clubbing, No Cyanosis, No Edema Current Medications: Current Medications Sig/Clementine Start time Last Medication Dose Route Stop Time Status Admin Albuterol Sulfate 3 ML TID 10/07 2099 AC 10/18 INH 1957 Artificial Tears 2 GTT 4 TIMES/DAY 10/10 2099 AC 10/18 OPH 2016 Bisacodyl 10 MG ONCE PRN 10/14 1245 AC 10/14 HI 1340 Bisacodyl 5 MG DAILY 10/13 0845 AC 10/16 PO 0910 Budesonide/ 2 PUF 0700,1900 10/18 1900 AC 10/19 Formoterol Fumarate INH 0519 Cyclobenzaprine HCl 5 MG BID 10/14 1030 AC 10/18 PO 2015 Diclofenac Sodium 1 ALVARO 4 TIMES/DAY 10/11 1300 AC 10/18 TOP 2016 Diltiazem HCl 120 MG DAILY 10/12 0900 AC 10/18 PO 0819 Guaifenesin 10 ML Q6P PRN 10/12 2030 AC 10/14 PO 2130 Guaifenesin 600 MG Q12 10/08 2100 AC 10/18 PO 2016 Heparin Sodium 3,548 UNIT BOLUS ONE 10/19 0150 DC 10/19 (Porcine) IV 10/19 0151 0200 Heparin Sodium 3,500 UNIT ONCE ONE 10/18 0950 DC 10/18 (Porcine) IV 10/18 0951 1029 Heparin Sodium/ 25,000 UNIT Q24H 10/16 1515 AC 10/18 Dextrose IV 1553 Dextrose/Water 500 ML Hydrocodone Bitart/ 1 TAB Q4 HRS NEEDED PRN 10/10 0715 AC 10/17 Acetaminophen PO 1625 Hydrocodone Bitart/ 2 TAB Q4 HRS NEEDED PRN 10/10 0715 AC 10/18 Acetaminophen PO 2152 Insulin Aspart 0 TIDAC 10/13 1200 AC 10/18 SC 1247 Lidocaine 1 PAT DAILY 10/13 1813 AC 10/18 EXT 0817 Losartan Potassium 25 MG DAILY 10/10 1121 AC 10/18 PO 0819 Magnesium Oxide 400 MG BID 10/17 1004 DC 10/18 PO 10/18 2102014 Montelukast Sodium 10 MG AT BEDTIME 10/08 2100 AC 10/18 PO 2016 Ondansetron HCl 4 MG Q6P PRN 10/07 1945 AC 10/08 IV 0950 Pantoprazole Sodium 40 MG DAILY 10/08 0900 AC 10/18 IV 0817 Polyethylene Glycol 17 GM DAILY 10/09 1115 AC 10/17 PO 0849 Senna/Docusate Sodium 2 TAB DAILY 10/13 0900 AC 10/15 PO 1007 Simethicone 40 MG Q6P PRN 10/16 1500 AC 10/18 PO 1151 Sodium Chloride 2 SPRAY Q4P PRN 10/14 2000 AC 10/16 KIM 0922 Warfarin Sodium 5 MG COUMADIN 1700 ONE 10/18 1700 DC 10/18 PO 10/18 1701 1551 Last 24 Hrs of Lab/Chucky Results Last 24 Hrs of Labs/Mics: Laboratory Tests 10/19/17 0915: Troponin I < 0.01, APTT 55 H 10/19/17 0538: Anion Gap 6, Estimated GFR > 60, BUN/Creatinine Ratio 28.3 H, Magnesium 1.5 L, PT 11.7, INR 1.07, CBC w Diff NO MAN DIFF REQ, RBC 3.62 L, MCV 89.7, MCH 29.5, MCHC 32.9 L, RDW 15.9 H, MPV 7.6, Gran % 65.7, Lymphocytes % 18.0 L, Monocytes % 10.2 H, Eosinophils % 5.6 H, Basophils % 0.5, Absolute Granulocytes 8.7 H, Absolute Lymphocytes 2.4, Absolute Monocytes 1.4 H, Absolute Eosinophils 0.7, Absolute Basophils 0.1 10/19/17 0049: APTT 48 H Assessment/Plan Assessment: 71-year-old woman with PMHx of Asthma, COPD not on home oxygen, history of multiple admissions for MRSA pneumonia, HTN, HLD, T2DM, TIA on Plavix, insomnia, GERD, osteoarthritis, carpal tunnel syndrome, PVD, bilateral lung nodules, 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 #Right upper extremity DVT Currently bridging from heparin to warfarin. INR today remains subtherapeutic. -Continue IV heparin -Increased Coumadin dose to 10 mg today -Continue to monitor INR and dose Coumadin -Will remove PICC line after patient isn't therapeutic INR range. #Persistent leukocytosis Persistent leukocytosis, has remained stable but elevated for the past 4 days -Continue to trend WBC -We'll refer to heme for outpatient workup of potential MDS #Status post laminectomy Surgical recommendations appreciated, will continue to follow. -Patient started on MS Contin 15 mg by mouth twice a day for continued surgical pain #Acute blood loss anemia H/H has remained stable -Continue to follow CBC #Chronic medical problems Continue current medical regimen DVT prophylaxis: IV heparin, alps Diet: Diabetic diet CODE STATUS: Full code Problem List: 1. DVT (deep venous thrombosis) Pain Ratin Pain Location: lower back, L forearm, lower abdomen Pain Goal: Pain 4 or less Pain Plan: pain pathway Tomorrow's Labs & Rationales: cbc, bep, INR Steven Gaming MD 10/19/17 1125: Attending MD Review Statement Attending Statement Attending MD Statement: examined this patient, discuss w/resident/PA/DIE TRIMMER, agreed w/resident/PA/DIE TRIMMER, reviewed EMR data (avail) Attending Assessment/Plan: 71F PMH COPD not on home oxygen, history of MRSA pneumonia, HTN, HLD, T2DM, TIA on Plavix, insomnia, GERD, osteoarthritis, carpal tunnel syndrome, PVD, bilateral lung nodules, previous occluded right internal carotid artery with no significant flow, chronic back pain status post spinal fusion in 2012, was admitted to surgical service on 10/06/2017 for severe back pain, and claudication, found to have severe spinal stenosis requiring laminectomy on . Course was complicated by acute blood loss anemia requiring transfusion with junctional rhythm zachary-operatively that has resolved, also now with RUE DVT surrounding PICC. Back pain is still present but improved. Also complains of right lower anterior rib pain, left wrist pain, and bilateral lower abdominal pain (that occured after being moved a few days ago). 1. RUE DVT 2. S/p laminectomy 3. Acute blood loss anemia Plan - Continue on telemetry - Continue to bridge to Coumadin - Will continue heparin through PICC and pull when INR is therapeutic with appropriate overlap - Continue home medications - Continue current pain regimen
[2017-10-19 08:07] LABS: ABSOLUTE BASOPHIL COUNT 0.1 /CUMM (0.0-0.2); ABSOLUTE EOSINOPHIL COUNT 0.7 /CUMM (0.0-0.7); ABSOLUTE GRANULOCYTE CT 8.7 /CUMM (1.4-6.5); ABSOLUTE LYMPH COUNT 2.4 /CUMM (1.2-3.4); ABSOLUTE MONOCYTE COUNT 1.4 /CUMM (0.10-0.60); BASOPHIL % 0.5 % (0.0-2.0); EOSINOPHIL % 5.6 % (0-5); GRANULOCYTE % 65.7 % (42.2-75.2); HEMATOCRIT 32.5 % (37-47); MEAN CORPUSCULAR HGB 29.5 PG (27.0-31.0); MEAN CORPUSCULAR HGB CONC 32.9 G/DL (33.0-37.0); MEAN CORPUSCULAR VOLUME 89.7 FL (81.0-99.0); MEAN PLATELET VOLUME 7.6 FL (7.4-10.4); PLATELET COUNT 393 /CUMM (130-400); RBC DISTRIBUTION WIDTH 15.9 % (11.5-14.5); RED BLOOD CELL CT 3.62 /CUMM (4.20-5.40); WHITE BLOOD CELL COUNT 13.3 /CUMM (4.8-10.8)
[2017-10-19 08:12] LABS: PT 11.7 SEC (9.4-12.5)
[2017-10-19 09:37] LABS: PTT 55 SEC (25-37)
--- NOTE | 2017-10-19 10:45 | PN- Pulmonary ---
Subjective HPI/Critical Care Issues: pt seen and examined still with pain on exertion dyspnea on exertion no cough no n/v/d/c, no cp, no delacruz Objective Current Medications: Current Medications Sig/Clementine Start time Last Medication Dose Route Stop Time Status Admin Albuterol Sulfate 3 ML TID 10/07 2100 AC 10/19 INH 0820 Artificial Tears 2 GTT 4 TIMES/DAY 10/10 2100 AC 10/19 OPH 0844 Bisacodyl 10 MG ONCE PRN 10/14 1245 AC 10/14 CO 1340 Bisacodyl 5 MG DAILY 10/13 0845 AC 10/19 PO 0843 Budesonide/ 2 PUF 0700,1900 10/18 1900 AC 10/19 Formoterol Fumarate INH 0519 Cyclobenzaprine HCl 5 MG BID 10/14 1030 AC 10/19 PO 0843 Diclofenac Sodium 1 ALVARO 4 TIMES/DAY 10/11 1300 AC 10/19 TOP 0844 Diltiazem HCl 120 MG DAILY 10/12 0900 AC 10/19 PO 0843 Guaifenesin 10 ML Q6P PRN 10/12 2030 AC 10/14 PO 2130 Guaifenesin 600 MG Q12 10/08 2100 AC 10/19 PO 0843 Heparin Sodium 5,000 UNIT .STK-MED ONE 10/19 0155 DC (Porcine) IV 10/19 0156 Heparin Sodium 3,548 UNIT BOLUS ONE 10/19 0150 DC 10/19 (Porcine) IV 10/19 0151 0200 Heparin Sodium/ 25,000 UNIT Q24H 10/16 1515 AC 10/18 Dextrose IV 1553 Dextrose/Water 500 ML Hydrocodone Bitart/ 1 TAB Q4 HRS NEEDED PRN 10/10 0715 AC 10/17 Acetaminophen PO 1625 Hydrocodone Bitart/ 2 TAB Q4 HRS NEEDED PRN 10/10 0715 AC 10/19 Acetaminophen PO 0843 Insulin Aspart 0 TIDAC 10/13 1200 AC 10/19 SC 0844 Lidocaine 1 PAT DAILY 10/13 1813 AC 10/19 EXT 0844 Losartan Potassium 25 MG DAILY 10/10 1121 AC 10/19 PO 0843 Magnesium Oxide 400 MG BID 10/17 1004 DC 10/18 PO 10/18 Montelukast Sodium 10 MG AT BEDTIME 10/08 2100 AC 10/18 PO 2016 Ondansetron HCl 4 MG Q6P PRN 10/07 1945 AC 10/08 IV 0950 Pantoprazole Sodium 40 MG DAILY 10/08 09 AC 10/19 IV 0843 Polyethylene Glycol 17 GM DAILY 10/09 1115 AC 10/19 PO 0843 Senna/Docusate Sodium 2 TAB DAILY 10/13 09 AC 10/19 PO 0843 Simethicone 40 MG Q6P PRN 10/16 1500 AC 10/18 PO 1151 Sodium Chloride 2 SPRAY Q4P PRN 10/15 1999 AC 10/16 KIM 0922 Warfarin Sodium 5 MG COUMADIN 1700 ONE 10/18 1700 DC 10/18 PO 10/18 1701 1551 Vital Signs & I&O Last 24 Hrs of Vitals and I&O: Vital Signs Date Time Temp Pulse Resp B/P B/P Pulse O2 O2 Flow FiO2 Mean Ox Delivery Rate 10/20 0748 98 Room Air Room Air 10/19 0655 99.0 74 18 146/64 98 Room Air 10/18 2215 99.3 86 18 158/66 96 Room Air 10/18 2002 96 Room Air Room Air 10/18 1422 98.8 72 20 156/62 99 Room Air Intake & Output 10/19 1600 10/19 0800 10/19 0000 Intake Total 510 537 Output Total 400 750 Balance 110 -213 Intake, IV 150 75 Intake, Oral 360 462 Output, Urine 400 750 Patient 196 lb Weight Weight Bed scale Measurement Method Exam Other Physical Findings: gen awake and alert heent room air cvs s1, s2 lungs clear bilaterally abd soft ext no edema Results Last 24 Hrs of Lab Results: Laboratory Tests 10/19/17 0915: Troponin I < 0.01, APTT 55 H 10/19/17 0538: Anion Gap 6, Estimated GFR > 60, BUN/Creatinine Ratio 28.3 H, Magnesium 1.5 L, PT 11.7, INR 1.07, CBC w Diff NO MAN DIFF REQ, RBC 3.62 L, MCV 89.7, MCH 29.5, MCHC 32.9 L, RDW 15.9 H, MPV 7.6, Gran % 65.7, Lymphocytes % 18.0 L, Monocytes % 10.2 H, Eosinophils % 5.6 H, Basophils % 0.5, Absolute Granulocytes 8.7 H, Absolute Lymphocytes 2.4, Absolute Monocytes 1.4 H, Absolute Eosinophils 0.7, Absolute Basophils 0.1 10/19/17 0049: APTT 48 H 10/18/17 1600: APTT > 120 *H Impression/Plan Impression/Plan Impression/Plan: Impression 71 year old woman * extensive back surgery * acute blood loss anemia, likely surgical site * RUE DVT * hx of asthma * hx of MRSA pna * leukocytosis improved - etiology - ?hematological disorder Plan -f/u surgery and cardiology recommendations -trc/nebs, symbicort -leukocytosis is now stable - can be followed up with Dr. Junior on an outpatient basis -monitor cbc, platelets -f/u vascular sx regarding picc line/RUE DVT -coumadin dosing - in dicussion with patient, agreed upon coumadin with heparin as a 5 days overlap and therapeutic for 24 hrs - goal INR 2-3 DVT prophylaxis at all times
[2017-10-19 14:00] VITALS: BP 140/88
[2017-10-19 18:02] LABS: PTT 61 SEC (25-37)
--- NOTE | 2017-10-19 18:21 | PN- Cardiology ---
Subjective Subjective: Intermittent mild shortness of breath and chest discomfort. No nausea or vomiting. No palpitations. Objective Vital Signs and I&Os Vital Signs Date Time Temp Pulse Resp B/P B/P Pulse O2 O2 Flow FiO2 Mean Ox Delivery Rate 10/20 08 78 144/70 10/20 0802 97 Room Air Room Air 10/20 0718 98.2 78 20 144/70 95 Room Air 10/19 2311 99.0 82 17 154/94 97 10/19 2040 96 Room Air Intake & Output 10/20 0000 10/19 1600 10/19 0000 Intake Total 200 355 550 510 537 Output Total 550 700 350 400 750 Balance -350 -345 200 110 -213 Intake, IV 115 100 150 75 Intake, Oral 200 240 450 360 462 Number 1 Bowel Movements Output, Urine 550 700 350 400 750 Patient 195 lb 196 lb Weight Weight Bed scale Measurement Method Physical Exam: Gen: NAD HEENT: normal Lungs: clear to auscultation, normal resp. effort Heart: RRR, S1, S2, 1/6 systolic murmur Abdomen: Soft, nontender, no masses Extremities: No clubbing, cyanosis, or edema. Neuro: Alert and oriented x 3, cranial nerves intact Current Medications: Current Medications Sig/Clementine Start time Last Medication Dose Route Stop Time Status Admin Albuterol Sulfate 3 ML TID 10/07 2100 AC 10/20 INH 1407 Artificial Tears 2 GTT 4 TIMES/DAY 10/10 2100 AC 10/20 OPH 1230 Bisacodyl 10 MG ONCE PRN 10/14 1245 AC 10/14 MO 1340 Bisacodyl 5 MG DAILY 10/13 0845 AC 10/20 PO 0802 Budesonide/ 2 PUF 0700,1900 10/18 1900 AC 10/20 Formoterol Fumarate INH 0638 Cyclobenzaprine HCl 5 MG BID 10/14 1030 AC 10/20 PO 0801 Diclofenac Sodium 1 ALVARO 4 TIMES/DAY 10/11 1300 AC 10/19 TOP 2133 Diltiazem HCl 120 MG DAILY 10/12 0900 AC 10/20 PO 0802 Guaifenesin 10 ML Q6P PRN 10/12 2030 AC 10/14 PO 2130 Guaifenesin 600 MG Q12 10/08 2100 AC 10/20 PO 0801 Heparin Sodium/ 25,000 UNIT Q24H 10/16 1515 AC 10/19 Dextrose IV 1646 Dextrose/Water 500 ML Hydrocodone Bitart/ 1 TAB Q4 HRS NEEDED PRN 10/10 0715 AC 10/17 Acetaminophen PO 1625 Hydrocodone Bitart/ 2 TAB Q4 HRS NEEDED PRN 10/10 0715 AC 10/20 Acetaminophen PO 0951 Insulin Aspart 0 TIDAC 10/13 1200 AC 10/20 SC 1228 Lidocaine 1 PAT DAILY 10/13 1813 AC 10/20 EXT 0801 Losartan Potassium 25 MG DAILY 10/10 1121 AC 10/20 PO 0802 Montelukast Sodium 10 MG AT BEDTIME 10/08 2100 AC 10/19 PO 2130 Morphine Sulfate 15 MG BID 10/19 1335 AC 10/20 PO 0801 Ondansetron HCl 4 MG Q6P PRN 10/07 1945 AC 10/08 IV 0950 Pantoprazole Sodium 40 MG DAILY 10/08 0900 AC 10/20 IV 0802 Polyethylene Glycol 17 GM DAILY 10/09 1115 AC 10/20 PO 0759 Senna/Docusate Sodium 2 TAB DAILY 10/13 0900 AC 10/20 PO 0801 Simethicone 40 MG Q6P PRN 10/16 1500 AC 10/18 PO 1151 Sodium Chloride 2 SPRAY Q4P PRN 10/14 2000 AC 10/16 KIM 0922 Warfarin Sodium 10 MG COUMADIN 1700 ONE 10/20 1700 AC PO 10/20 1701 Warfarin Sodium 10 MG COUMADIN 1700 ONE 10/19 1700 DC 10/19 PO 10/19 1701 1647 Results Last 48 Hrs of Labs/Mics: Laboratory Tests 10/20/17 0500: PT 13.5 H, INR 1.24 H 10/20/17 0500: APTT 66 H, CBC w Diff NO MAN DIFF REQ, RBC 3.47 L, MCV 89.6, MCH 29.3, MCHC 32.7 L, RDW 16.0 H, MPV 7.6, Gran % 70.1, Lymphocytes % 14.3 L, Monocytes % 8.9, Eosinophils % 5.2 H, Basophils % 1.5, Absolute Granulocytes 10.0 H, Absolute Lymphocytes 2.0, Absolute Monocytes 1.3 H, Absolute Eosinophils 0.7, Absolute Basophils 0.2 10/19/17 1700: APTT 61 H 10/19/17 0915: Troponin I < 0.01, APTT 55 H 10/19/17 0538: Anion Gap 6, Estimated GFR > 60, BUN/Creatinine Ratio 28.3 H, Magnesium 1.5 L, PT 11.7, INR 1.07, CBC w Diff NO MAN DIFF REQ, RBC 3.62 L, MCV 89.7, MCH 29.5, MCHC 32.9 L, RDW 15.9 H, MPV 7.6, Gran % 65.7, Lymphocytes % 18.0 L, Monocytes % 10.2 H, Eosinophils % 5.6 H, Basophils % 0.5, Absolute Granulocytes 8.7 H, Absolute Lymphocytes 2.4, Absolute Monocytes 1.4 H, Absolute Eosinophils 0.7, Absolute Basophils 0.1 10/19/17 0049: APTT 48 H 10/18/17 1600: APTT > 120 *H Assessment/Plan Assessment/Plan Assessment: 1. Status post back fusion surgery 2. Intraoperative and postoperative bradycardia and hypotension, improved 3. Acute blood loss anemia on Xarelto 4. Left upper extremity deep vein thrombus 5. History of hypertension 6. History of hyperlipidemia 7. History of bilateral carotid plaque Plan: * Dose warfarin for INR 2-3 * IV heparin bridging * Continue other cardiac medications Continue telemetry? Yes
[2017-10-19 23:11] VITALS: BP 154/94
[2017-10-20 06:11] LABS: ABSOLUTE BASOPHIL COUNT 0.2 /CUMM (0.0-0.2); ABSOLUTE EOSINOPHIL COUNT 0.7 /CUMM (0.0-0.7); ABSOLUTE MONOCYTE COUNT 1.3 /CUMM (0.10-0.60); BASOPHIL % 1.5 % (0.0-2.0); EOSINOPHIL % 5.2 % (0-5); GRANULOCYTE % 70.1 % (42.2-75.2); MEAN CORPUSCULAR HGB 29.3 PG (27.0-31.0); MEAN CORPUSCULAR HGB CONC 32.7 G/DL (33.0-37.0); MEAN CORPUSCULAR VOLUME 89.6 FL (81.0-99.0); MEAN PLATELET VOLUME 7.6 FL (7.4-10.4); PLATELET COUNT 421 /CUMM (130-400); RED BLOOD CELL CT 3.47 /CUMM (4.20-5.40); WHITE BLOOD CELL COUNT 14.2 /CUMM (4.8-10.8)
[2017-10-20 06:16] LABS: PT 13.5 SEC (9.4-12.5)
[2017-10-20 06:19] LABS: PTT 66 SEC (25-37)
[2017-10-20 07:18] VITALS: BP 144/70
--- NOTE | 2017-10-20 07:26 | PN- Housestaff ---
Rita HARRIS,Dar 10/20/17 0725: Subjective Follow-up For: Right upper extremity DVT Status post laminectomy POD #13 Tele-Events Since Last Visit: Sinus rhythm with HR 70s90s Subjective: Patient was seen and examined. She is resting comfortably. She had no acute events overnight. The change to her analgesic regimen significantly improved her pain, she reports now 5/10 pain in her back, and he applied to her left forearm is also improving pain as well. She denies any chest tightness, chest pain, shortness of breath, nausea, vomiting, fever, chills. Review of Systems Constitutional: Reports: see HPI. Objective Last 24 Hrs of Vital Signs/I&O Vital Signs Date Time Temp Pulse Resp B/P B/P Pulse O2 O2 Flow FiO2 Mean Ox Delivery Rate 10/20 717 98.2 78 20 144/70 95 Room Air 10/19 2311 99.0 82 17 154/94 97 10/19 2040 96 Room Air 10/19 1400 97.6 79 20 140/88 96 10/19 0848 98 Room Air Room Air Intake & Output 10/20 0810/20 0000 10/19 1600 Intake Total 200 355 550 Output Total 550 700 350 Balance -350 -345 200 Intake, IV 115 100 Intake, Oral 200 240 450 Number 1 Bowel Movements Output, Urine 550 700 350 Patient 195 lb Weight Physical Exam General Appearance: Alert, Oriented X3, Cooperative, No Acute Distress Skin Temp/Moisture Exam: Warm/Dry Cardiovascular: Regular Rate, Normal S1, Normal S2 Lungs: Clear to Auscultation, Normal Air Movement Abdomen: mild TTP in lower abdomen, improved from yesterday Neurological: Normal Speech, Normal Tone, Sensation Intact Current Medications: Current Medications Sig/Clementine Start time Last Medication Dose Route Stop Time Status Admin Albuterol Sulfate 3 ML TID 10/07 2099 AC 10/19 INH 2036 Artificial Tears 2 GTT 4 TIMES/DAY 10/10 2100 AC 10/19 OPH 2132 Bisacodyl 10 MG ONCE PRN 10/14 1245 AC 10/14 OH 1340 Bisacodyl 5 MG DAILY 10/13 0845 AC 10/19 PO 0843 Budesonide/ 2 PUF 0700,1900 0506 1900 AC 10/20 Formoterol Fumarate INH 0638 Cyclobenzaprine HCl 5 MG BID 10/14 1030 AC 10/19 PO 2130 Diclofenac Sodium 1 ALVARO 4 TIMES/DAY 10/11 1300 AC 10/19 TOP 2133 Diltiazem HCl 120 MG DAILY 10/12 09 AC 10/19 PO 0843 Guaifenesin 10 ML Q6P PRN 10/12 2030 AC 10/14 PO 2130 Guaifenesin 600 MG Q12 10/08 2100 AC 10/19 PO 2130 Heparin Sodium/ 25,000 UNIT Q24H 10/16 1515 AC 10/19 Dextrose IV 1646 Dextrose/Water 500 ML Hydrocodone Bitart/ 1 TAB Q4 HRS NEEDED PRN 10/10 0715 AC 10/17 Acetaminophen PO 1625 Hydrocodone Bitart/ 2 TAB Q4 HRS NEEDED PRN 10/10 0715 AC 10/20 Acetaminophen PO 0517 Insulin Aspart 0 TIDAC 10/13 1200 AC 10/19 SC 1835 Lidocaine 1 PAT DAILY 10/13 181 AC 10/19 EXT 0844 Losartan Potassium 25 MG DAILY 10/10 1121 AC 10/19 PO 0843 Montelukast Sodium 10 MG AT BEDTIME 10/08 2100 AC 10/19 PO 2130 Morphine Sulfate 4 MG ONCE ONE 10/19 1345 DC 10/19 IV 10/19 1346 1353 Morphine Sulfate 15 MG BID 10/19 1335 AC 10/19 PO 2130 Ondansetron HCl 4 MG Q6P PRN 10/07 194 AC 10/08 IV 0950 Pantoprazole Sodium 40 MG DAILY 10/08 09 AC 10/19 IV 0843 Polyethylene Glycol 17 GM DAILY 10/09 1115 AC 10/19 PO 0843 Senna/Docusate Sodium 2 TAB DAILY 10/13 0900 AC 10/19 PO 0843 Simethicone 40 MG Q6P PRN 10/16 1500 AC 10/18 PO 1151 Sodium Chloride 2 SPRAY Q4P PRN 10/14 2000 AC 10/16 KIM 0922 Warfarin Sodium 10 MG COUMADIN 1700 ONE 10/19 1700 DC 10/19 PO 10/19 1701 1647 Last 24 Hrs of Lab/Chucky Results Last 24 Hrs of Labs/Mics: Laboratory Tests 10/20/17 0500: PT 13.5 H, INR 1.24 H 10/20/17 0500: APTT 66 H, CBC w Diff NO MAN DIFF REQ, RBC 3.47 L, MCV 89.6, MCH 29.3, MCHC 32.7 L, RDW 16.0 H, MPV 7.6, Gran % 70.1, Lymphocytes % 14.3 L, Monocytes % 8.9, Eosinophils % 5.2 H, Basophils % 1.5, Absolute Granulocytes 10.0 H, Absolute Lymphocytes 2.0, Absolute Monocytes 1.3 H, Absolute Eosinophils 0.7, Absolute Basophils 0.2 10/19/17 1700: APTT 61 H Assessment/Plan Assessment: 71-year-old woman with PMHx of Asthma, COPD not on home oxygen, history of multiple admissions for MRSA pneumonia, HTN, HLD, T2DM, TIA on Plavix, insomnia, GERD, osteoarthritis, carpal tunnel syndrome, PVD, bilateral lung nodules, 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 #Right upper extremity DVT Currently bridging from heparin to warfarin. INR increased today but remains subtherapeutic. -Continue IV heparin - continue Coumadin dose to 10 mg today - Continue to monitor INR and dose Coumadin - Will remove PICC line after patient isn't therapeutic INR range. #Persistent leukocytosis Persistent leukocytosis, has remained stable but elevated for the past 4 days -Continue to trend WBC -We'll refer to heme for outpatient workup of potential MDS #Status post laminectomy Surgical recommendations appreciated, will continue to follow. -continue MS Contin 15 mg by mouth twice a day for continued surgical pain, continue vicodin for breakthrough pain #Acute blood loss anemia H/H has remained stable -Continue to follow CBC #Chronic medical problems - Continue current medical regimen DVT prophylaxis: IV heparin, warfarin, alps Diet: Diabetic diet CODE STATUS: Full code Problem List: 1. DVT (deep venous thrombosis) 2. Spondylosis of lumbar spine Pain Ratin Pain Location: lower back, L forearm Pain Goal: Pain 7 or less Pain Plan: pain pathway Tomorrow's Labs & Rationales: cbc, bep, INR Steven Gaming MD 10/20/17 1330: Attending MD Review Statement Attending Statement Attending MD Statement: examined this patient, discuss w/resident/PA/IRON MOLDER HELPER, agreed w/resident/PA/IRON MOLDER HELPER, reviewed EMR data (avail) Attending Assessment/Plan: 71F PMH COPD not on home oxygen, history of MRSA pneumonia, HTN, HLD, T2DM, TIA on Plavix, insomnia, GERD, osteoarthritis, carpal tunnel syndrome, PVD, bilateral lung nodules, previous occluded right internal carotid artery with no significant flow, chronic back pain status post spinal fusion in 2012, was admitted to surgical service on 10/06/2017 for severe back pain, and claudication, found to have severe spinal stenosis requiring laminectomy on . Course was complicated by acute blood loss anemia requiring transfusion with junctional rhythm zachary-operatively that has resolved, also now with RUE DVT surrounding PICC. Pain is significantly improved today. Her right rib and lower abdominal pain have nearly resolved, and her left wrist/hand pain has improved with a warm compress. Her back pain is under control and she was able to participate with PT today. No other complaints. INR creeping up. 1. RUE DVT 2. S/p laminectomy 3. Acute blood loss anemia Plan - Continue on telemetry - Continue to bridge to Coumadin - Will continue heparin through PICC and pull when INR is therapeutic with appropriate overlap - Continue home medications - Continue current pain regimen - Anticipated discharge tomorrow on Coumadin with or without Lovenox
--- NOTE | 2017-10-20 07:47 | Discharge Summary ---
Visit Information Visit Dates Admission Date: 10/07/17 Discharge Date: 10/22/17 Hospital Course Course Attending Physician: Steven Gaming MD Primary Care Physician: Flavio Garcia MD Consulting Request: 1 Consulting Specialty: Cardiology Consulting Request: 2 Consulting Specialty: Gastroenterology Consulting Request: 3 Consulting Specialty: Neurosurgery Consulting Request: 4 Consulting Specialty: Orthopedics Consulting Request: 5 Consulting Specialty: Thoracic/Vascular Surgery Hospital Course: 71-year-old woman with past medical history of COPD not on home oxygen, asthma, MRSA pneumonia, inm-wllcqik-psozjiqrk diabetes mellitus, hypertension, hyperlipidemia, TIA on Plavix, insomnia, GERD, osteoarthritis, PVD, carpal tunnel syndrome, bilateral lung nodules, occluded right ICA, and chronic back pain status post spinal fusion (2012) admitted to the surgical service on for severe back pain and claudication found to have severe spinal stenosis for which a laminectomy was performed on 10/07/17. The laminectomy was prolonged lasting approximately 9 hours with approximately 1200 mL of intraoperative blood loss. Patient developed significant bradycardia with junctional rhythm intraoperatively while receiving intravenous propofol/ fentanyl with resulting hypotension requiring 5 L of normal saline fluid resuscitation and epinephrine drip. Junctional rhythm resolved by the end of the surgery. Postoperatively patient was transferred to the ICU for respiratory failure but was subsequently extubated. Surgical maya were removed on . Patient was found to have a right upper extremity DVT which was attributed to the prolonged surgery for which vascular surgery consult was placed and she was started on Xarelto. During the ICU stay patient suffered acute blood loss anemia from the surgical site. Problem list -Severe lumbar spinal stenosis status post laminectomy -right upper extremity DVT -Acute surgical blood loss anemia -Acute hypoxic respiratory failure -intraoperative severe hypotension, resolved -Intraoperative sinus bradycardia/junctional rhythm, resolved -COPD, not on home oxygen -Nkt-ncedyap-apjeqkjpl diabetes mellitus -History of recurrent MRSA pneumonia -Hypertension -Hyperlipidemia -History of TIA, on Plavix -GERD -Osteoarthritis -Bilateral pulmonary nodules -History of occluded right ICA Patient was transferred to care under the medical service on 10/14/17 when she developed acute shortness of breath thought to be secondary to transfusion of multiple units of packed red blood cells for which she was given intravenous Lasix. Patient was found to have bleeding from the surgical site for which Xarelto was discontinued. CTA chest and lower extremity Doppler were negative for VTE. 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 She was also on vancomycin as part of prophylaxis, as per the surgical service which was discontinued when she was taken over by the surgical service, given no clear indication. CT abdomen negative for any infection or any acute processes. H&H was checked daily, and monitored closely. Since she did not have a significant drop in H&H, with bhaskar 7.6 on 10/11, but was transfused approximately 6 units by the surgical service; other sources of blood loss were investigated including GI. She was found to be hemo-occult negative, and also undwernt a GI evaluation by the cancer program consultant. Bleeding was thought to be from the surgery site, and the bonemarrow was likely not responding appropriately to the acute loss of blood, makes us think that she might be having some form of PMN. Retic count was very low, adjusted to anemia. In regards to treatment of DVT, the treatment was deferred to the surgeon to continue the DOAC or warfarin which is safter in her case at this time or even pradaxa after starting heparin. As per the vascular/surgical service who opted to leave the PICC line in place, as againt the medical opinon. Deferred the decision of PICC line management to surgical service. It was planned to attempt at finding iv access again, and if unsuccessful would request IR for a PICC line placement on the opposite side of the current picc line. No use of tPA, as per Dr Kahn which would increase the risk of bleeding into the surgical site. It was decided that despite having a DVT in the right upper extremity and given that 1 of the lumens was patent and the PICC line the line would remain in place while in hospital. Patient was started on heparin for anticoagulation and hemoglobin and INR were checked daily. Coumadin was dosed but patient remained out of the therapeutic range. She was discharged to [facility] with explicit instructions to continue anticoagulation with Lovenox and continue Coumadin until with daily INR checks until she is within the therapeutic range (INR 2-3). Patient was seen by physical therapy whom recommended discharge to a [place] [facility] facility. PICC line was removed prior to discharge. Plavix will be held on discharge in light of starting warfarin. Allergies: Coded Allergies: Sulfa (Sulfonamide Antibiotics) (Intermediate, SKIN TURNS PURPLE/HOT 09/24/17) Penicillins (Mild, ITCHING 09/24/17) aspirin (HX GASTRITIS 10/06/17) ASA->BLEEDING atorvastatin (PER PT MED LIST 09/24/17) prednisone (Severe, VISION CHANGES 09/24/17) Uncoded Allergies: ENVIRONMENTAL (UNKNOWN 07/20/13) MULTIPLE ANTIBIOTICS (UNKNOWN 07/20/13) Significant Procedures: SERVICE DATE: 10/07/17- EXAM TYPE: RAD - XRY-LUMBOSACRAL SPINE AP & LAT IMPRESSION: New radiopaque hardware is visualized at L2-L3 and L5-S1. SERVICE DATE: 10/07/17- EXAM TYPE: RAD - XRY-LUMBOSACRAL SPINE AP & LAT IMPRESSION: Intraoperative CT imaging of lumbar spine was utilized. SERVICE DATE: 10/07/17 EXAM TYPE: RAD - XRY-PORTABLE CHEST XRAY IMPRESSION: Low lung volumes with endotracheal tube placement as described. SERVICE DATE: 10/08/17- EXAM TYPE: US - US-UNILATERAL VENOUS DOPPLER IMPRESSION: Positive study. Right PICC line in place with occlusive thrombus within the mid to distal right brachial veins and the basilic vein SERVICE DATE: 10/08/17 EXAM TYPE: RAD - XRY-PORTABLE CHEST XRAY IMPRESSION: Endotracheal tube terminates approximately 5 cm above the dashawn. No acute pulmonary disease. SERVICE DATE: 10/09/17 EXAM TYPE: CAT - CTA CHEST IMPRESSION: No central or segmental pulmonary embolus seen. SERVICE DATE: 10/09/17 EXAM TYPE: US - US-LIMITED ABDOMEN IMPRESSION: 1. 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 2. Normal-appearing gallbladder without evidence of cholelithiasis or ultrasound findings of cholecystitis. SERVICE DATE: 10/09/17 EXAM TYPE: US - US-UNILATERAL VENOUS DOPPLER IMPRESSION: No evidence for left upper extremity deep vein thrombosis. SERVICE DATE: 10/11/17- EXAM TYPE: RAD - XRY-RIBS UNILATERAL-RIGHT IMPRESSION: 1. No acute pulmonary disease. 2. No evidence of right rib fracture. SERVICE DATE: 10/12/17 EXAM TYPE: CAT - CT ABD & PELVIS W/ & W/O IV CO IMPRESSION: 1. No acute findings in the abdomen or pelvis. 2. Status post lumbosacral spinal surgery; no evidence of paraspinal abscess. 3. No evidence of an acute lower rib fracture. SERVICE DATE: 10/12/17 EXAM TYPE: US - US-EXT BILAT VENOUS DOPPLER IMPRESSION: Normal triplex scan without evidence of deep venous thrombosis involving the lower extremities. SERVICE DATE: 10/14/17 EXAM TYPE: RAD - XRY-PORTABLE CHEST XRAY IMPRESSION: - No active disease in the chest. - Stable right-sided PICC. SERVICE DATE: 10/17/17 EXAM TYPE: US - US-DUPLEX VENOUS EXTREM UNI IMPRESSION: Improved appearance with decreasing clot burden within the brachial and basilic veins. There is limited visualization of portions of the brachials from the mid arm to the elbow due to PICC line bandaging. SERVICE DATE: 10/17/17 EXAM TYPE: CAT - CT HEAD WO IV CONTRAST IMPRESSION: No acute intracranial pathology. Chronic right parietal encephalomalacia. Disposition Summary Disposition Principal Diagnosis: Acute surgical blood loss anemia Intraoperative hypotension/bradycardia Acute hypoxic respiratory failure requiring mechanical ventilation Severe lumbar spinal stenosis status post prolonged laminectomy Right upper extremity deep venous thrombosis Additional Diagnosis: As above Discharge Disposition: SNF Discharge Instructions General Discharge Information Code Status: Full Code Patient's Diet: Diabetic diet Patient's Activity: Per PT assessment Follow-Up Instructions/Appts: Follow-up with your orthopedist, neurosurgeon, technician chemical cleaning, and vascular surgeon after discharge. Take Coumadin as directed and follow up with your Coumadin clinic. Restart Plavix. Medications at Discharge Discharge Medications: Stop taking the following medications: Clopidogrel Bisulfate (Plavix) 75 MG TABLET ORAL DAILY Acetaminophen (8HR Arthritis Pain Relief) 650 MG TABLET.ER ORAL TAKE AT BEDTIME Continue taking these medications: Cetirizine HCl (Zyrtec) 10 MG CAPSULE 1 Capsule ORAL DAILY Cholecalciferol (Vitamin D3) (Vitamin D) 1,000 UNIT TABLET 1 Tablet ORAL DAILY Omeprazole (Omeprazole) 40 MG CAPSULE.DR 1 Capsule ORAL DAILY BEFORE BREAKFAST Tobramycin (Tobrex) 0.3 % DROPS 2 Drop In the eye THREE TIMES DAILY Multivit-Min/FA/Lutein/Zeaxant (Macular Vitamin Tablet) 500 MCG-5 MG-1 MG TABLET 1 Tablet ORAL DAILY Budesonide/Formoterol Fumarate (Symbicort 160-4.5 Mcg Inhaler) 160 MCG-4.5 MCG/ ACTUATION HFA.AER.AD 2 PUFF Inhale through mouth TWICE DAILY Docusate Sodium (Colace) 100 MG CAPSULE 1 Capsule ORAL TWICE DAILY Multiple Vitamin (Multivitamins) 1 EACH TABLET 1 Tablet ORAL DAILY Montelukast Sodium (Singulair) 10 MG TABLET 1 Tablet ORAL DAILY Magnesium Oxide (Magnesium) (Unknown Strength) CAPSULE Unknown Dose ORAL THREE TIMES DAILY Losartan Potassium (Cozaar) 25 MG TABLET 1 Tablet ORAL DAILY Sitagliptin Phosphate (Januvia) 100 MG TABLET 1 Tablet ORAL DAILY Iron Carb,Gl/FA/B12/C/Docusate (Ferralet 90 Tablet) 90 MG-1 MG-12 MCG-120 MG-50 MG TABLET 1 Tablet ORAL DAILY Azelastine/Fluticasone (Dymista Nasal [place]) 137 MCG-50 MCG/SPRAY SPRAY.PUMP 1 [place] Both sides of nose NEEDED Cyclobenzaprine HCl (Cyclobenzaprine HCl) 5 MG TABLET 1 Tablet ORAL TAKE AT BEDTIME Diltiazem HCl (Cartia Xt) 120 MG CAP.ER.24H 1 Capsule ORAL DAILY Glimepiride (Glimepiride) 2 MG TABLET 1.5 Tablet ORAL DAILY Gabapentin (Gabapentin) 300 MG CAPSULE 1 Capsule ORAL NEEDED Melatonin (Melatonin) 10 MG CAPSULE 1 Capsule ORAL Every night Ascorbate Calcium (Vitamin C) 500 MG TABLET 1 Tablet ORAL DAILY Albuterol Sulfate (Proair Hfa) 90 MCG HFA.AER.AD 2 Puff Inhale through mouth as needed for ASTHMA/ALLERGIES Start taking the following new medications: Polyethylene Glycol 3350 (Miralax) 17 GRAM/DOSE POWDER 17 Gram ORAL DAILY Qty = 1 No Refills Hydrocodone/Acetaminophen (Hydrocodon-Acetaminophen 5-325) 5 MG-325 MG TABLET 1 Tablet ORAL EVERY 4 HOURS NEEDED as needed for PAIN SCALE 4-6 (MODERATE ) Qty = 10 No Refills Hydrocodone/Acetaminophen (Hydrocodon-Acetaminophen 5-325) 5 MG-325 MG TABLET 2 Tablet ORAL EVERY 4 HOURS NEEDED as needed for PAIN SCALE 7-10 (SEVERE) Qty = 10 No Refills Morphine Sulfate (Morphine Sulfate ER) 15 MG TABLET.ER 15 Milligram ORAL TWICE DAILY Qty = 20 No Refills Lidocaine (Lidoderm) 5 % ADH..PATCH 1 Patch ON SKIN DAILY as needed for Post-op pain Qty = 30 No Refills Enoxaparin Sodium (Lovenox) 80 MG/0.8 ML SYRINGE 80 Milligram Inject into fatty tissue TWICE DAILY Qty = 10 No Refills Instructions: 80 mg BID until INR is therapeutic then discontinue Check INR daily until therapeutic Warfarin Sodium (Coumadin) 10 MG TABLET 1 Tablet ORAL DAILY Qty = 30 No Refills Copies To: Dania HARRIS,Ray Rose; Radha HARRIS,Flavio Chaudhry; Marcus HARRIS,Tye Chauhan; Ke HARRIS,Eric Lang ; Vernon HARRIS,Amari Llamas; Hannah HARRIS, Gino
[2017-10-20 15:26] VITALS: BP 160/62
--- NOTE | 2017-10-20 16:47 | PN- Pulmonary ---
Subjective HPI/Critical Care Issues: pt seen and examined pain improving ambulating Objective Current Medications: Current Medications Sig/Clementine Start time Last Medication Dose Route Stop Time Status Admin Albuterol Sulfate 3 ML TID 10/07 2100 AC 10/20 INH 1407 Artificial Tears 2 GTT 4 TIMES/DAY 10/10 2100 AC 10/20 OPH 1630 Bisacodyl 10 MG ONCE PRN 10/14 1245 AC 10/14 [place] 1340 Bisacodyl 5 MG DAILY 10/13 0845 AC 10/20 PO 0802 Budesonide/ 2 PUF 0700,1900 10/18 1900 AC 10/20 Formoterol Fumarate INH 0638 Cyclobenzaprine HCl 5 MG BID 10/14 1030 AC 10/20 PO 0801 Diclofenac Sodium 1 ALVARO 4 TIMES/DAY 10/11 1300 AC 10/19 TOP 2133 Diltiazem HCl 120 MG DAILY 10/12 0900 AC 10/20 PO 0802 Guaifenesin 10 ML Q6P PRN 10/12 2030 AC 10/14 PO 2130 Guaifenesin 600 MG Q12 10/08 2100 AC 10/20 PO 0801 Heparin Sodium/ 25,000 UNIT Q24H 10/16 1515 AC 10/19 Dextrose IV 1646 Dextrose/Water 500 ML Hydrocodone Bitart/ 1 TAB Q4 HRS NEEDED PRN 10/10 0715 AC 10/17 Acetaminophen PO 1625 Hydrocodone Bitart/ 2 TAB Q4 HRS NEEDED PRN 10/10 0715 AC 10/20 Acetaminophen PO 1629 Insulin Aspart 0 TIDAC 10/13 1200 AC 10/20 SC 1228 Lidocaine 1 PAT DAILY 10/13 1813 AC 10/20 EXT 0801 Losartan Potassium 25 MG DAILY 10/10 1121 AC 10/20 PO 0802 Montelukast Sodium 10 MG AT BEDTIME 10/08 2100 AC 10/19 PO 2130 Morphine Sulfate 15 MG BID 10/19 1335 AC 10/20 PO 0801 Ondansetron HCl 4 MG Q6P PRN 10/07 1945 AC 10/08 IV 0950 Pantoprazole Sodium 40 MG DAILY 10/08 0900 AC 10/20 IV 0802 Polyethylene Glycol 17 GM DAILY 10/09 1115 AC 10/20 PO 0759 Senna/Docusate Sodium 2 TAB DAILY 10/13 0900 AC 10/20 PO 0801 Simethicone 40 MG Q6P PRN 10/16 1500 AC 10/20 PO 1635 Sodium Chloride 2 SPRAY Q4P PRN 10/14 2000 AC 10/16 KIM 0922 Warfarin Sodium 10 MG COUMADIN 1700 ONE 10/20 1700 AC / PO 10/20 1701 1630 Warfarin Sodium 10 MG COUMADIN 1700 ONE 10/19 1700 DC 10/19 PO 10/19 1701 1647 Vital Signs & I&O Last 24 Hrs of Vitals and I&O: Vital Signs Date Time Temp Pulse Resp B/P B/P Pulse O2 O2 Flow FiO2 Mean Ox Delivery Rate 10/20 1526 98.6 87 20 160/62 96 10/20 0802 78 144/70 10/20 0802 97 Room Air Room Air 10/20 0718 98.2 78 20 144/70 95 Room Air 10/19 2311 99.0 82 17 154/94 97 10/19 2040 96 Room Air Intake & Output 10/20 1600 10/20 0800 05/ 0000 Intake Total 520 200 355 Output Total 1350 550 700 Balance -830 -350 -345 Intake, IV 120 115 Intake, Oral 400 200 240 Number 2 1 Bowel Movements Output, Urine 1350 550 700 Patient 195 lb Weight Exam Other Physical Findings: gen awake and alert heent room air cvs s1, s2 lungs clear bilaterally abd soft ext no edema Results Last 24 Hrs of Lab Results: Laboratory Tests 10/20/17 0500: PT 13.5 H, INR 1.24 H 10/20/17 0500: APTT 66 H, CBC w Diff NO MAN DIFF REQ, RBC 3.47 L, MCV 89.6, MCH 29.3, MCHC 32.7 L, RDW 16.0 H, MPV 7.6, Gran % 70.1, Lymphocytes % 14.3 L, Monocytes % 8.9, Eosinophils % 5.2 H, Basophils % 1.5, Absolute Granulocytes 10.0 H, Absolute Lymphocytes 2.0, Absolute Monocytes 1.3 H, Absolute Eosinophils 0.7, Absolute Basophils 0.2 10/19/17 1700: APTT 61 H Impression/Plan Impression/Plan Impression/Plan: Impression 71 year old woman * extensive back surgery * acute blood loss anemia, likely surgical site * RUE DVT * hx of asthma * hx of MRSA pna * leukocytosis improved - etiology - ?hematological disorder Plan -f/u surgery and cardiology recommendations -trc/nebs, symbicort -leukocytosis is now stable - can be followed up with Dr. Junior on an outpatient basis -monitor cbc, platelets -f/u vascular sx regarding picc line/RUE DVT -coumadin dosing - in dicussion with patient, agreed upon coumadin with heparin as a 5 days overlap and therapeutic for 24 hrs - goal INR 2-3 -can alternatively consider lovenox for bridging will sign off for now, call with any questions DVT prophylaxis at all times
[2017-10-20 18:17] LABS: PTT 41 SEC (25-37)
[2017-10-20 22:13] VITALS: BP 158/94
[2017-10-21 02:16] LABS: PTT 90 SEC (25-37)
[2017-10-21 07:21] VITALS: BP 138/62
--- NOTE | 2017-10-21 07:22 | PN- Housestaff ---
Subjective Follow-up For: Right upper extremity DVT Status post laminectomy POD #14 Tele-Events Since Last Visit: Sinus rhythm [id number] Subjective: Patient was seen and examined at bedside. She was resting comfortably. She had no acute events overnight. She continues to complain of back pain especially with motion. She is also complaining of a new productive cough with very mild shortness of breath. She denies any fevers, chills, chest pain. Review of Systems Constitutional: Reports: see HPI. Objective Last 24 Hrs of Vital Signs/I&O Vital Signs Date Time Temp Pulse Resp B/P B/P Pulse O2 O2 Flow FiO2 Mean Ox Delivery Rate 10/20 2213 98.3 82 18 158/94 94 10/21 2127 97 Room Air Room Air 10/20 1526 98.6 87 20 160/62 96 10/20 0802 78 144/70 10/20 0802 97 Room Air Room Air Intake & Output 10/21 0800 10/21 0000 10/20 1600 Intake Total 440 550 520 Output Total 2825 511 6369 Balance -760 50 -830 Intake, IV 200 150 120 Intake, Oral 240 400 400 Number 2 Bowel Movements Output, Urine 6237 706 3928 Patient 191 lb Weight Physical Exam General Appearance: Alert, Oriented X3, Cooperative, No Acute Distress Cardiovascular: Regular Rate, Normal S1, Normal S2, systolic murmur Lungs: scant rhonchi Abdomen: Normal Bowel Sounds, Soft, mild tenderness to palpation of lower abdomen, improving Neurological: Normal Speech, Normal Tone, Sensation Intact Extremities: trace LE edema Current Medications: Current Medications Sig/Clementine Start time Last Medication Dose Route Stop Time Status Admin Albuterol Sulfate 3 ML TID 10/07 2100 AC 10/20 INH 2128 Artificial Tears 2 GTT 4 TIMES/DAY 10/10 2100 AC 10/20 OPH 2104 Bisacodyl 10 MG ONCE PRN 10/14 1245 AC 10/14 DC 1340 Bisacodyl 5 MG DAILY 10/13 0845 AC 10/20 PO 0802 Budesonide/ 2 PUF 0700,1900 10/18 1900 AC 10/21 Formoterol Fumarate INH 0619 Cyclobenzaprine HCl 5 MG BID 10/14 1030 AC 10/20 PO 2104 Diclofenac Sodium 1 ALVARO 4 TIMES/DAY 10/11 1300 AC 10/20 TOP 2104 Diltiazem HCl 120 MG DAILY 10/12 0900 AC 10/20 PO 0802 Guaifenesin 10 ML Q6P PRN 10/12 2030 AC 10/20 PO 2341 Guaifenesin 600 MG Q12 10/08 2100 AC 10/20 PO 2104 Heparin Sodium/ 25,000 UNIT Q24H 10/16 1515 AC 10/21 Dextrose IV 0155 Dextrose/Water 500 ML Hydrocodone Bitart/ 1 TAB Q4 HRS NEEDED PRN 10/10 0715 AC 10/17 Acetaminophen PO 1625 Hydrocodone Bitart/ 2 TAB Q4 HRS NEEDED PRN 10/10 0715 AC 10/21 Acetaminophen PO 0134 Insulin Aspart 0 TIDAC 10/13 1200 AC 10/20 SC 1749 Lidocaine 1 PAT DAILY 10/13 1813 AC 10/20 EXT 0801 Losartan Potassium 25 MG DAILY 10/10 1121 AC 10/20 PO 0802 Montelukast Sodium 10 MG AT BEDTIME 10/08 2100 AC 10/20 PO 2104 Morphine Sulfate 15 MG BID 10/19 1335 AC 10/20 PO 2104 Ondansetron HCl 4 MG Q6P PRN 10/07 1945 AC 10/08 IV 0950 Pantoprazole Sodium 40 MG DAILY 10/08 0900 AC 10/20 IV 0802 Polyethylene Glycol 17 GM DAILY 10/09 1115 AC 10/20 PO 0759 Senna/Docusate Sodium 2 TAB DAILY 10/13 0900 AC 10/20 PO 0801 Simethicone 40 MG Q6P PRN 10/16 1500 AC 10/20 PO 1635 Sodium Chloride 2 SPRAY Q4P PRN 10/14 2000 AC 10/16 KIM 0922 Warfarin Sodium 10 MG COUMADIN 1700 ONE 10/20 1700 DC 10/20 PO 10/20 1701 1630 Last 24 Hrs of Lab/Chucky Results Last 24 Hrs of Labs/Mics: Laboratory Tests 10/21/17 0630: Anion Gap 7, Estimated GFR > 60, BUN/Creatinine Ratio 33.3 H, PT 17.8 H, INR 1.63 H, CBC w Diff NO MAN DIFF REQ, RBC 3.26 L, MCV 89.1, MCH 29.2, MCHC 32.7 L, RDW 16.1 H, MPV 7.5, Gran % 71.5, Lymphocytes % 14.0 L, Monocytes % 9.5 H, Eosinophils % 4.5, Basophils % 0.5, Absolute Granulocytes 9.8 H, Absolute Lymphocytes 1.9, Absolute Monocytes 1.3 H, Absolute Eosinophils 0.6, Absolute Basophils 0.1 10/21/17 0140: APTT 90 H 10/20/17 1730: APTT 41 H Assessment/Plan Assessment: 71-year-old woman with PMHx of Asthma, COPD not on home oxygen, history of multiple admissions for MRSA pneumonia, HTN, HLD, T2DM, TIA on Plavix, insomnia, GERD, osteoarthritis, carpal tunnel syndrome, PVD, bilateral lung nodules, 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 #Right upper extremity DVT Currently bridging from heparin to warfarin. INR increased again today but remains subtherapeutic. -Continue IV heparin, until discharge, will start lovenox at STR until INR becomes therapeutic - Patient will be discharged with instructions for INR to be checked daily at STR until it becomes therapeutic - Will remove PICC line prior to discharge #Persistent leukocytosis Persistent leukocytosis, has remained stable but elevated for the past 4 days -Continue to trend WBC -We'll refer to heme for outpatient workup of potential MDS #Status post laminectomy Surgical recommendations appreciated, will continue to follow. -continue MS Contin 15 mg by mouth twice a day for continued surgical pain, continue vicodin for breakthrough pain -Eris to come out today -Follow-up with Dr. Caruso as an outpatient #Onset productive cough Patient has a history of MRSA pneumonia, she is afebrile and her white count is persistently elevated but has not spiked recently -We'll follow-up chest x-ray #Acute blood loss anemia H/H has remained stable -Continue to follow CBC #Chronic medical problems - Continue current medical regimen DVT prophylaxis: IV heparin, warfarin, alps Diet: Diabetic diet CODE STATUS: Full code Problem List: 1. DVT (deep venous thrombosis) Pain Ratin Pain Location: lower back, L forearm Alt Method for Pain Treatment: Warm Pack Pain Goal: Pain 4 or less Pain Plan: pain pathway Tomorrow's Labs & Rationales: none Consulting Request: Consulting Specialty: Thoracic/Vascular Surgery
[2017-10-21] MEDS ORDERED: MIRALAX119 GM PO (07:53)
--- NOTE | 2017-10-21 08:04 | Patient Discharge Instructions ---
Discharge Instructions General Discharge Information You were seen/treated for: DVT spinal stenosis You had these procedures: Laminectomy Special Instructions: Follow-up with your primary care physician within 1-2 weeks of discharge. Follow-up with Ray Najera MD, orthopedic surgery, for postoperative appointment. Follow-up with Dr. Junior in 1-2 weeks of discharge, to work up your high white blood cell count. Follow-up with your nursery worker within 1-2 weeks of discharge. Take all medications as directed. Call your doctor or return to the ER if you have bleeding of the surgical sites, redness around the surgical site, pus leaking from the surgical site, severe worsening back pain, numbness, tingling or weakness of her lower extremities. INR should be checked daily while at the rehabilitation facility until it is within the therapeutic range of 23, daily Lovenox should be given until that time. Can decrease Coumadin dose once therapuetic INR and continue to monitor INR regularly. Acute Coronary Syndrome Inclusion Criteria At DC or during hospital stay patient has or had the following: ACS DIAGNOSIS No Discharge Core Measures Meds if any: Prescribed or Continued at Discharge Meds if any: NOT Prescribed or Continued at Discharge Congestive Heart Failure Inclusion Criteria At DC or during hospital stay patient has or had the following: CHF DIAGNOSIS No Discharge Core Measures Meds if any: Prescribed or Continued at Discharge Meds if any: NOT Prescribed or Continued at Discharge Cerebrovascular accident Inclusion Criteria At DC or during hospital stay patient has or had the following: CVA/TIA Diagnosis No Discharge Core Measures Meds if any: Prescribed or Continued at Discharge Meds if any: NOT Prescribed or Continued at Discharge Venous thromboembolism Inclusion Criteria VTE Diagnosis Yes VTE Type Deep Venous Thrombosis VTE Confirmed by (Test) DUPLEX VENOUS EXTREM UNI Discharge Core Measures - Per Current guidelines, there needs to be overlap - treatment for the first 5 days of Warfarin therapy. - If discharged on Warfarin prior to 5 days of - overlap therapy, the patient will need to be - assessed for post discharge needs including - *Post discharge parental anticoagulation - *Warfarin and/or parental anticoagulation education - *Follow up date to check INR post discharge At least 5 days overlap therapy as Inpatient Yes Meds if any: Prescribed or Continued at Discharge Note: Overlap Therapy is Warfarin and Anticoagulant Meds if any: NOT Prescribed or Continued at Discharge
[2017-10-21 08:05] LABS: ABSOLUTE BASOPHIL COUNT 0.1 /CUMM (0.0-0.2); ABSOLUTE EOSINOPHIL COUNT 0.6 /CUMM (0.0-0.7); ABSOLUTE GRANULOCYTE CT 9.8 /CUMM (1.4-6.5); ABSOLUTE LYMPH COUNT 1.9 /CUMM (1.2-3.4); ABSOLUTE MONOCYTE COUNT 1.3 /CUMM (0.10-0.60); BASOPHIL % 0.5 % (0.0-2.0); EOSINOPHIL % 4.5 % (0-5); GRANULOCYTE % 71.5 % (42.2-75.2); HEMATOCRIT 29.1 % (37-47); MEAN CORPUSCULAR HGB 29.2 PG (27.0-31.0); MEAN CORPUSCULAR HGB CONC 32.7 G/DL (33.0-37.0); MEAN CORPUSCULAR VOLUME 89.1 FL (81.0-99.0); MEAN PLATELET VOLUME 7.5 FL (7.4-10.4); PLATELET COUNT 430 /CUMM (130-400); RBC DISTRIBUTION WIDTH 16.1 % (11.5-14.5); RED BLOOD CELL CT 3.26 /CUMM (4.20-5.40); WHITE BLOOD CELL COUNT 13.7 /CUMM (4.8-10.8)
[2017-10-21 08:30] LABS: PT 17.8 SEC (9.4-12.5)
[2017-10-21] MEDS ORDERED: COUMADIN5 M2 PO (10:18)
[2017-10-21] MEDS ORDERED: LOVENOX80 MG/0.1 SC (10:18)
[2017-10-21] MEDS ORDERED: HYDROCODON-ACE1 EAC2 PO (10:22)
[2017-10-21] MEDS ORDERED: MORPHINE SULFAT15 M3 PO (10:22)
[2017-10-21] MEDS ORDERED: LIDODERM1 EACH EXT (10:22)
--- NOTE | 2017-10-21 10:39 | PN- Orthopedic ---
Subjective Subjective: Patient seen by Dr. Najera on 10/14/2017 @ 06:00 PM: Stronger. Able to mobilize to chair fairly well and tolerate prolonged OOB. Still not ambulating but reports she is ready to try. Not c/o much back pain. Using brace when OOB. Appetite improving. Bowel function normalizing. Objective Vital Signs and I&Os Vital Signs AVSS Physical Exam: Dressing CDI. No bleeding. Incision CDI. NVI Still with R chest wall tenderness but slowly decreasing in size and severity. No longer bothering her as much with deep breathing or motion. Still has cough. Assessment/Plan Assessment/Plan Improving slowly. Core Measures Venous Thromboembolism VTE Risk Factors Age>40 No Mechanical VTE Prophylaxis d/t N/A MechProphylax Ordered No VTE Pharm Prophylaxis d/t Surgical Contraindication (initially) Attending MD Review Statement Attending Statement Attending MD Statement: examined this patient, discuss w/resident/PA/DESULPHURIZER OPERATOR, agreed w/resident/PA/DESULPHURIZER OPERATOR, reviewed EMR data (avail)
--- NOTE | 2017-10-21 10:46 | PN- Att Addend ---
Attending Addendum Attending Brief Note 71F PMH COPD not on home oxygen, history of MRSA pneumonia, HTN, HLD, T2DM, TIA on Plavix, insomnia, GERD, osteoarthritis, carpal tunnel syndrome, PVD, bilateral lung nodules, previous occluded right internal carotid artery with no significant flow, chronic back pain status post spinal fusion in 2012, was admitted to surgical service on 10/06/2017 for severe back pain, and claudication, found to have severe spinal stenosis requiring laminectomy on . Course was complicated by acute blood loss anemia requiring transfusion with junctional rhythm zachary-operatively that has resolved, also now with RUE DVT surrounding PICC. Pain was well controlled this morning, now worse after having moved around. No other complaints. INR creeping up. 1. RUE DVT 2. S/p laminectomy 3. Acute blood loss anemia Plan - Stable for discharge to [facility] - Coumadin 5mg + Lovenox on discharge, check INR daily until therapeutic and stop Lovenox then - PICC can be removed after Lovenox is given - Continue home medications - Continue current pain regimen - Eris to be removed today by surgery
--- NOTE | 2017-10-21 11:02 | PN- Orthopedic ---
Surgical Brief Attending Note Brief Attending Note: Patient seen by Dr. Najera on 10/16/2017 @ 06:00 PM: Stronger. Able to mobilize to chair fairly well and tolerate prolonged OOB. AVSS. Clinically stable. HCT stable. WBC decreasing. Still c/o chest wall pain and congested cough but not as limited by them. Now ambulating in room. Not yet to BR. Still requiring significant assistance. Reports legs are weak at knees. Strength 5/5 so this likely represents loss of endurance due to prolonged immobilization due to patient's medical issues and poor tolerance for early mobilization despite encouragement and being well aware of risks. She is no longer declining PT and at least she is progressing steadily (albeit slowly) without further setbacks. Dressing CDI. Incision CDI without erythema, bleeding or drainage by nursing report. Back pain is increasing proportional to mobilization but reasonably well tolerated for now. Patient not using much pain med and so this could be increased to facilitate mobilization as long as she does not then get sedated. Using brace when OOB. Appetite improving. Bowel function normalizing. Continue to mobilize and ambulate with PT and nursing. PICC management, R UE DVT management and DVT monitoring per Medicine and Vascular team. D/C planning to rehab per arrangements which patient started preop. It appears that the plan is now for Heparin and ultimate bridge to Coumadin anticoagulation for RUE DVT. This will likely keep patient in hospital until middle of next week.
--- NOTE | 2017-10-21 11:07 | PN- Orthopedic ---
Surgical Brief Attending Note Brief Attending Note: Patient seen by Dr. Najera on 10/17/2017 @ 09:00 AM: Stronger. Now ambulating in room and to BR with assistance. Can almost get OOB independently but has great difficulty getting back in without at least one oncology physician assistant. AVSS. Clinically stable. HCT stable. WBC decreasing. Still c/o chest wall pain and congested cough but not as limited by them. NVI. Dressing CDI. Incision CDI without erythema, bleeding or drainage by nursing report. Back pain more pronounced as activity has increased. Still not using much pain med and so this could be increased to facilitate mobilization as long as she does not then get sedated. Continue to mobilize and ambulate with PT and nursing. PICC management, R UE DVT management and DVT monitoring per Medicine and Vascular team. (Heparin -> Coumadin anticoagulation for RUE DVT) D/C planning to rehab per arrangements which patient started preop to begin early in week for likely mid-week transfer.
--- NOTE | 2017-10-21 11:13 | PN- Orthopedic ---
Surgical Brief Attending Note Brief Attending Note: Patient seen by Dr. Najera on 10/18/2017 @ 09:00 AM: Stronger. Better ambulation. Still not independent. AVSS. Clinically stable. HCT stable. Still c/o chest wall pain and congested cough but not as limited by them. Both are improving with better mobilization. NVI. Dressing CDI. Changed by Dr. Najera. Incision CDI without erythema, bleeding or drainage. Back pain continues to be more pronounced as activity has increased despite use of brace. Using more pain med without significant sedation. May need to adjust oral meds if continuess to require intermittent IV. Continue to mobilize. PICC and DVT management per Medicine and Vascular team. (Heparin -> Coumadin anticoagulation for RUE DVT in progress) D/C planning to rehab for likely mid-week transfer.
--- NOTE | 2017-10-21 11:19 | PN- Orthopedic ---
Surgical Brief Attending Note Brief Attending Note: Patient seen by Dr. Najera on 10/19/2017 @ 07:00 PM: Continues to improve. First time that patient has not had productive (albeit always nonpurulent) cough during evaluation (and report of continuous cough otherwise. Short distance ambulation in prajapati. AVSS. Clinically improving. Still c/o chest wall pain but may be finally decreaing. More focal to palpation. No radiation. Has never been related to back pain. NVI. Dressing CDI. Incision CDI without erythema, bleeding or drainage by nursing report. Back pain continues to require intermittent IV med after activity. Agree with changing to combination short and long-activing oral meds. Continue to mobilize and ambulate with PT and nursing. PICC and R UE DVT management per Medicine and Vascular team with bridge Heparin -> Coumadin anticoagulation D/C planning for likely mid-week transfer to rehab.
--- NOTE | 2017-10-21 11:26 | PN- Orthopedic ---
Surgical Brief Attending Note Brief Attending Note: Patient seen by Dr. Najera on 10/20/2017 @ 07:00 PM: Continues to improve although still slow to mobilize due to poor pain tolerance even though combination of long and short acting medication seems to be controlling her pain better. Today, patient again has productive nonpurulent cough during evaluation similar to 1st week postop. Now better able to independently mobilize and ambulate short distance in hallway. Still has difficulty getting back into bed. AVSS. Chest wall pain continues to be very focal over lower anterolateral ribs and likely represents deep pressure contusion from prolonged prone positioning for surgery which was unavoidable in this case (even with extra padding applied to all potential pressure areas). NVI. Dressing CDI. Incision CDI without erythema, bleeding or drainage by nursing report. Back pain better controlled with combination of short and long-activing oral meds. Continue to mobilize and ambulate with PT and nursing. PICC and R UE DVT management per Medicine and Vascular team with bridge Heparin -> Coumadin anticoagulation D/C planning for likely mid-week )possibly tomorrow) transfer to rehab.
--- NOTE | 2017-10-21 12:36 | RADIOLOGY REPORT ---
EXAMINATION: XR PORTABLE CHEST CLINICAL INFORMATION: Leukocytosis; productive cough and shortness of breath; question pneumonia. COMPARISON: Prior chest radiographs, most recently 10/14/2017. TECHNIQUE: Portable frontal view of the chest was obtained. FINDINGS: The heart, great vessels, pulmonary vasculature and mediastinum are stable. No infiltrate, effusion or pneumothorax is seen. There is stable moderate elevation of the right hemidiaphragm. There is no acute osseous abnormality. IMPRESSION: No active cardiopulmonary disease. There is no significant interim change.
--- NOTE | 2017-10-21 12:49 | PN- Cardiology ---
Subjective Subjective: Patient seems to be doing well. No new cardiac symptoms. The patient notes that she has had a worsening cough over the last 24 hours with production of yellow sputum but no fevers, etc. Objective Vital Signs and I&Os Vital Signs Date Time Temp Pulse Resp B/P B/P Pulse O2 O2 Flow FiO2 Mean Ox Delivery Rate 10/22 0748 95 Room Air 10/21 0807 75 138/62 10/21 0721 98.0 75 18 138/62 95 Room Air 10/20 2213 98.3 82 18 158/94 94 10/20 2128 97 Room Air Room Air 10/20 1526 98.6 87 20 160/62 96 Intake & Output 10/21 1600 10/21 0000 10/20 1600 10/20 0000 Intake Total 240 440 550 520 200 355 Output Total 2138 575 7912 550 700 Balance 240 -760 50 -830 -350 -345 Intake, IV 200 150 120 115 Intake, Oral 240 240 400 400 200 240 Number 2 1 Bowel Movements Output, Urine 2678 004 9963 550 700 Patient 191 lb 195 lb Weight Current Medications: Current Medications Sig/Clementine Start time Last Medication Dose Route Stop Time Status Admin Albuterol Sulfate 3 ML TID 10/07 2100 AC 10/21 INH 0848 Artificial Tears 2 GTT 4 TIMES/DAY 10/10 2100 AC 10/21 OPH 0809 Bisacodyl 10 MG ONCE PRN 10/14 1245 AC 10/14 IA 1340 Bisacodyl 5 MG DAILY 10/13 0845 AC 10/20 PO 0802 Budesonide/ 2 PUF 0700,1900 10/18 1900 AC 10/21 Formoterol Fumarate INH 0619 Cyclobenzaprine HCl 5 MG BID 10/14 1030 AC 10/21 PO 0807 Diclofenac Sodium 1 ALVARO 4 TIMES/DAY 10/11 1300 AC 10/20 TOP 2104 Diltiazem HCl 120 MG DAILY 10/12 0900 AC 10/21 PO 0807 Guaifenesin 10 ML .STK-MED ONE 10/20 2339 DC PO 10/20 2340 Guaifenesin 10 ML Q6P PRN 10/12 2030 AC 10/20 PO 2341 Guaifenesin 600 MG Q12 10/08 2100 AC 10/21 PO 0807 Heparin Sodium/ 25,000 UNIT Q24H 10/16 1515 AC 10/21 Dextrose IV 0155 Dextrose/Water 500 ML Hydrocodone Bitart/ 1 TAB Q4 HRS NEEDED PRN 10/10 0715 AC 10/17 Acetaminophen PO 1625 Hydrocodone Bitart/ 2 TAB Q4 HRS NEEDED PRN 10/10 0715 AC 10/21 Acetaminophen PO 0944 Insulin Aspart 0 TIDAC 10/13 1200 AC 10/21 SC 1234 Lidocaine 1 PAT DAILY 10/13 1813 AC 10/21 EXT 0817 Losartan Potassium 25 MG DAILY 10/10 1121 AC 10/21 PO 0807 Montelukast Sodium 10 MG AT BEDTIME 10/08 2100 AC 10/20 PO 2104 Morphine Sulfate 2 MG ONCE ONE 10/21 1130 DC 10/21 IV 10/21 1131 1143 Morphine Sulfate 15 MG BID 10/19 1335 AC 10/21 PO 0802 Ondansetron HCl 4 MG Q6P PRN 10/07 1945 AC 10/08 IV 0950 Pantoprazole Sodium 40 MG DAILY 10/08 0900 AC 10/21 IV 0817 Polyethylene Glycol 17 GM DAILY 10/09 1115 AC 10/21 PO 0944 Senna/Docusate Sodium 2 TAB DAILY 10/13 0900 AC 10/20 PO 0801 Simethicone 40 MG Q6P PRN 10/16 1500 AC 10/20 PO 1635 Sodium Chloride 2 SPRAY Q4P PRN 10/14 2000 AC 10/21 KIM 0818 Warfarin Sodium 7.5 MG COUMADIN 1700 ONE 10/21 1700 AC PO 10/21 1701 Warfarin Sodium 10 MG COUMADIN 1700 ONE 10/20 1700 DC 10/20 PO 10/20 1701 1630 Results Last 48 Hrs of Labs/Mics: Laboratory Tests 10/21/17 0630: Anion Gap 7, Estimated GFR > 60, BUN/Creatinine Ratio 33.3 H, PT 17.8 H, INR 1.63 H, CBC w Diff NO MAN DIFF REQ, RBC 3.26 L, MCV 89.1, MCH 29.2, MCHC 32.7 L, RDW 16.1 H, MPV 7.5, Gran % 71.5, Lymphocytes % 14.0 L, Monocytes % 9.5 H, Eosinophils % 4.5, Basophils % 0.5, Absolute Granulocytes 9.8 H, Absolute Lymphocytes 1.9, Absolute Monocytes 1.3 H, Absolute Eosinophils 0.6, Absolute Basophils 0.1 10/21/17 0140: APTT 90 H 10/20/17 1730: APTT 41 H 10/20/17 0500: PT 13.5 H, INR 1.24 H 10/20/17 0500: APTT 66 H, CBC w Diff NO MAN DIFF REQ, RBC 3.47 L, MCV 89.6, MCH 29.3, MCHC 32.7 L, RDW 16.0 H, MPV 7.6, Gran % 70.1, Lymphocytes % 14.3 L, Monocytes % 8.9, Eosinophils % 5.2 H, Basophils % 1.5, Absolute Granulocytes 10.0 H, Absolute Lymphocytes 2.0, Absolute Monocytes 1.3 H, Absolute Eosinophils 0.7, Absolute Basophils 0.2 10/19/17 1700: APTT 61 H Assessment/Plan Assessment/Plan Assessment: 1. Status post back fusion surgery 2. Intraoperative and postoperative bradycardia and hypotension, improved 3. Acute blood loss anemia on Xarelto 4. Left upper extremity deep vein thrombus 5. History of hypertension 6. History of hyperlipidemia 7. History of bilateral carotid plaque Plan: * Dose warfarin for INR 2-3 * Consider PA/lateral chest x-ray in view of patient's new worsening cough and sputum production * Continue other cardiac medications; discharge planning and process Continue telemetry? No
[2017-10-21 15:11] VITALS: BP 168/70
[2017-10-21 15:35] LABS: PTT 65 SEC (25-37)
[2017-10-21 22:44] VITALS: BP 134/76
--- NOTE | 2017-10-21 23:02 | PN- Orthopedic ---
Surgical Brief Attending Note Brief Attending Note: Patient seen by Dr. Najera on 10/21/2017 @ 06:00 PM: Continues to improve. Ambulated around the floor today. Moderate pain. Used IV pain med x 1 but does not seem to be using PO meds regularly so hopefully better PO schedule will obviate the need for IV and she can be D/Cd as planned to rehab tomorrow. Had been c/o left radial hand, wrist and proximal forearm swelling and pain for the last few days. Improved significantly with warm compresses. When first evaluated several days ago appeared most consistent with superficial phlebitis but with compresses the swelling and mild erythema resolved and she was left with tenderness in first dorsal compartment most consistent with DeQuervains. This is also improving with compresses and motion. Inclusion of this area in her PT/OT/Rehab program would be appropriate including modalities, stretches and strengthening exercises and/or bracing which should resolve the problem. Otherwise this can be followed in the office as an outpatient and treated by more advanced means if necessary. Phlebitis may have originated from IV site attempts, blood draws, etc. Tenosynovitis may have resulted from the swelling and gripping for walker use. No cough on evaluation today but reports significant cough overnight. Agree with plan to get repeat CXR prior to rehab transfer. Chest wall pain very slowly but steadily decreasing and no longer impairing her mobilization out of or back into bed. AVSS. NVI. Dressing CDI. Incision CDI without erythema, bleeding or drainage by report. Eris D/Cd and steristrips applied. Back pain better controlled with combination of short and long-activing oral meds. Encouraged patient to use more frequent and earlier (in anticipation of therapy) short acting meds. PICC and R UE DVT management per Medicine and Vascular team with bridge Heparin -> Coumadin anticoagulation. Apparently, plan is for D/C Heparin and PICC in AM prior to rehab transfer. Agree with plan. Coumadin INR monitoring and dose adjustment as well as decisions regarding duration of treatment and repeat U/S assessmemt per Medicine and Vascular consultants. Agree with above Medicine plan and transfer to rehab tomorrow. Will follow in office after D/C from rehab to home unless earlier evaluation is requested.
[2017-10-22 02:28] LABS: PTT 81 SEC (25-37)
[2017-10-22 05:49] LABS: ABSOLUTE BASOPHIL COUNT 0 /CUMM (0.0-0.2); ABSOLUTE EOSINOPHIL COUNT 0.6 /CUMM (0.0-0.7); ABSOLUTE GRANULOCYTE CT 7.9 /CUMM (1.4-6.5); ABSOLUTE LYMPH COUNT 1.9 /CUMM (1.2-3.4); ABSOLUTE MONOCYTE COUNT 1.3 /CUMM (0.10-0.60); BASOPHIL % 0.4 % (0.0-2.0); EOSINOPHIL % 5.2 % (0-5); GRANULOCYTE % 67.3 % (42.2-75.2); HEMATOCRIT 29.4 % (37-47); MEAN CORPUSCULAR HGB 29.5 PG (27.0-31.0); MEAN CORPUSCULAR HGB CONC 33.2 G/DL (33.0-37.0); MEAN CORPUSCULAR VOLUME 88.9 FL (81.0-99.0); MEAN PLATELET VOLUME 7.1 FL (7.4-10.4); PLATELET COUNT 430 /CUMM (130-400); RBC DISTRIBUTION WIDTH 15.9 % (11.5-14.5); RED BLOOD CELL CT 3.31 /CUMM (4.20-5.40); WHITE BLOOD CELL COUNT 11.7 /CUMM (4.8-10.8)
[2017-10-22 05:51] LABS: PT 15.8 SEC (9.4-12.5)
[2017-10-22 07:01] VITALS: BP 130/58
--- NOTE | 2017-10-22 07:26 | PN- Housestaff ---
Rita HARRIS,Dar 10/22/17 0726: Subjective Follow-up For: DVT Status post laminectomy POD #15 Subjective: Patient was seen and examined at bedside. She was resting comfortably. She had no acute events overnight. She reports that her pain is significantly improved today from yesterday, rates it about a 5/10, worst in the lower back. Her cough is also improving, with significantly less sputum production, she denies any fevers, chills, chest pain, shortness of breath, nausea, vomiting. Review of Systems Constitutional: Reports: see HPI. Objective Last 24 Hrs of Vital Signs/I&O Vital Signs Date Time Temp Pulse Resp B/P B/P Pulse O2 O2 Flow FiO2 Mean Ox Delivery Rate 10/22 0701 98.4 74 18 130/58 97 Room Air 10/21 2244 98.4 79 20 134/76 99 10/21 2014 96 Room Air 10/21 1511 98.1 81 20 168/70 95 Room Air 10/21 0848 95 Room Air 10/21 0807 75 138/62 Intake & Output 10/22 0800 10/22 0000 10/21 1600 Intake Total 590 300 722.8 Output Total 250 625 300 Balance 340 -325 422.8 Intake, IV 150 182.8 Intake, Oral 440 300 540 Number 1 Bowel Movements Output, Urine 250 625 300 Patient 196 lb Weight Physical Exam General Appearance: Alert, Oriented X3, Cooperative, No Acute Distress Cardiovascular: Regular Rate, Normal S1, Normal S2 Lungs: Clear to Auscultation, Normal Air Movement, systolic murmur Abdomen: Normal Bowel Sounds, Soft, No Tenderness Neurological: Normal Speech, Normal Tone, Sensation Intact Extremities: 1+ pitting edema of the distal lower extremities Current Medications: Current Medications Sig/Clementine Start time Last Medication Dose Route Stop Time Status Admin Albuterol Sulfate 3 ML TID 10/07 2099 AC 10/21 INH 2010 Artificial Tears 2 GTT 4 TIMES/DAY 10/10 2100 AC 10/21 OPH 2108 Bisacodyl 10 MG ONCE PRN 10/14 1245 AC 10/14 AK 1340 Bisacodyl 5 MG DAILY 10/13 0845 AC 10/20 PO 0802 Budesonide/ 2 PUF 0700,1900 05 1900 AC 10/21 Formoterol Fumarate INH 1900 Cyclobenzaprine HCl 5 MG BID 10/14 1030 AC 10/21 PO 2104 Diclofenac Sodium 1 ALVARO 4 TIMES/DAY 10/11 1300 AC 10/21 TOP 2108 Diltiazem HCl 120 MG DAILY 10/12 0900 AC 10/21 PO 0807 Guaifenesin 10 ML Q6P PRN 10/12 2030 AC 10/20 PO 2341 Guaifenesin 600 MG Q12 10/08 2100 AC 10/21 PO 2105 Heparin Sodium/ 25,000 UNIT Q24H 10/16 1515 AC 10/22 Dextrose IV 0207 Dextrose/Water 500 ML Hydrocodone Bitart/ 1 TAB Q4 HRS NEEDED PRN 10/10 0715 AC 10/17 Acetaminophen PO 1625 Hydrocodone Bitart/ 2 TAB Q4 HRS NEEDED PRN 10/10 0715 AC 10/22 Acetaminophen PO 0523 Insulin Aspart 0 TIDAC 10/13 1200 AC 10/21 SC 1705 Lidocaine 1 PAT DAILY 10/13 1813 AC 10/21 EXT 0817 Losartan Potassium 25 MG DAILY 10/10 1121 AC 10/21 PO 0807 Montelukast Sodium 10 MG AT BEDTIME 10/08 2100 AC 10/21 PO 2104 Morphine Sulfate 2 MG ONCE ONE 10/21 1130 DC 10/21 IV 10/21 1131 1143 Morphine Sulfate 15 MG BID 10/19 1335 AC 10/21 PO 2105 Ondansetron HCl 4 MG Q6P PRN 10/07 1945 AC 10/08 IV 0950 Pantoprazole Sodium 40 MG DAILY 10/08 09 AC 10/21 IV 0817 Polyethylene Glycol 17 GM DAILY 10/09 1115 AC 10/21 PO 0944 Senna/Docusate Sodium 2 TAB DAILY 10/13 0900 AC 10/20 PO 0801 Simethicone 40 MG Q6P PRN 10/16 1500 AC 10/21 PO 1439 Sodium Chloride 2 SPRAY Q4P PRN 10/14 2000 AC 10/21 KIM 0818 Warfarin Sodium 7.5 MG COUMADIN 1700 ONE 10/21 1700 DC 10/21 PO 10/21 1701 1703 Last 24 Hrs of Lab/Chucky Results Last 24 Hrs of Labs/Mics: Laboratory Tests 10/22/17 0528: Anion Gap 9, Estimated GFR > 60, BUN/Creatinine Ratio 33.3 H, PT 15.8 H, INR 1.44 H, CBC w Diff NO MAN DIFF REQ, RBC 3.31 L, MCV 88.9, MCH 29.5, MCHC 33.2, RDW 15.9 H, MPV 7.1 L, Gran % 67.3, Lymphocytes % 15.8 L, Monocytes % 11.3 H , Eosinophils % 5.2 H, Basophils % 0.4, Absolute Granulocytes 7.9 H, Absolute Lymphocytes 1.9, Absolute Monocytes 1.3 H, Absolute Eosinophils 0.6, Absolute Basophils 0 10/22/17 0205: APTT 81 H 10/21/17 1417: APTT 65 H Assessment/Plan Assessment: 71-year-old woman with PMHx of Asthma, COPD not on home oxygen, history of multiple admissions for MRSA pneumonia, HTN, HLD, T2DM, TIA on Plavix, insomnia, GERD, osteoarthritis, carpal tunnel syndrome, PVD, bilateral lung nodules, 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 #Right upper extremity DVT Currently bridging from heparin to warfarin. INR increased again today but remains subtherapeutic. -Continue IV heparin, until discharge, will start lovenox at STR until INR becomes therapeutic - Patient will be discharged with instructions for INR to be checked daily at STR until it becomes therapeutic - Will remove PICC line prior to discharge -INR decreased yesterday when warfarin dose was decreased from 10-7.5 mg, will discharge patient on 10 mg warfarin daily with instructions to decrease dose once patient's INR becomes therapeutic and continue to monitor INR closely #Persistent leukocytosis Persistent leukocytosis, has remained stable but elevated for the past 4 days -Continue to trend WBC -We'll refer to heme for outpatient workup of potential MDS #Status post laminectomy Surgical recommendations appreciated, will continue to follow. -continue MS Contin 15 mg by mouth twice a day for continued surgical pain, continue vicodin for breakthrough pain -Eris were removed yesterday, although this painful patient tolerated the removal well -Follow-up with Dr. Najera as an outpatient #Productive cough, improving Chest x-ray yesterday showed no acute pulmonary process. #Acute blood loss anemia H/H has remained stable -Continue to follow CBC #Chronic medical problems - Continue current medical regimen DVT prophylaxis: IV heparin, warfarin, alps Diet: Diabetic diet CODE STATUS: Full code Problem List: 1. DVT (deep venous thrombosis) 2. Spondylosis of lumbar spine Pain Ratin Pain Location: lower back Pain Goal: Pain 7 or less Pain Plan: pain pathway Tomorrow's Labs & Rationales: none Consulting Request: Consulting Specialty: Thoracic/Vascular Surgery Discharge Plan Discharge Disposition: STR/NH Stable for Discharge? Yes Anticipated Discharge (Day): today If Discharged Today/In 24 Hrs: enter [facility] discharge ord, -/discharge paper done, DC summary done, CMR done Steven Gaming MD 10/22/17 1118: Attending MD Review Statement Attending Statement Attending MD Statement: examined this patient, discuss w/resident/PA/CUSTOMER MANAGEMENT SPECIALIST, agreed w/resident/PA/CUSTOMER MANAGEMENT SPECIALIST, reviewed EMR data (avail) Attending Assessment/Plan: 71F PMH COPD not on home oxygen, history of MRSA pneumonia, HTN, HLD, T2DM, TIA on Plavix, insomnia, GERD, osteoarthritis, carpal tunnel syndrome, PVD, bilateral lung nodules, previous occluded right internal carotid artery with no significant flow, chronic back pain status post spinal fusion in 2012, was admitted to surgical service on 10/06/2017 for severe back pain, and claudication, found to have severe spinal stenosis requiring laminectomy on . Course was complicated by acute blood loss anemia requiring transfusion with junctional rhythm zachary-operatively that has resolved, also now with RUE DVT surrounding PICC. Pain better today. INR still not at goal. 1. RUE DVT 2. S/p laminectomy 3. Acute blood loss anemia Plan - Stable for discharge to [facility] - Coumadin 10mg + Lovenox on discharge, check INR daily until therapeutic and stop Lovenox then - PICC can be removed after Lovenox is given - Continue home medications - Continue current pain regimen
[2017-10-22] MEDS ORDERED: COUMADIN10 M1 PO (09:06)
[2017-10-22 10:55] VITALS: BP 130/58
--- NOTE | 2017-10-22 16:06 | PN- Cardiology ---
Subjective Subjective: Stable and doing well. Ambulating today with physical therapy. Discharge pending. Objective Vital Signs and I&Os Vital Signs Date Time Temp Pulse Resp B/P B/P Pulse O2 O2 Flow FiO2 Mean Ox Delivery Rate 10/22 1055 98.4 76 18 130/58 05 0826 98 Room Air Room Air 10/22 0815 76 130/58 10/22 0701 98.4 74 18 130/58 97 Room Air 10/21 2244 98.4 79 20 134/76 99 10/21 2014 96 Room Air Intake & Output 10/22 1600 10/22 0800 10/22 0000 10/21 1600 10/21 0800 10/21 0000 Intake Total 400 590 300 722.8 440 550 Output Total 250 653 701 9579 500 Balance 400 340 -325 422.8 -760 50 Intake, IV 150 182.8 200 150 Intake, Oral 400 440 300 540 240 400 Number 1 Bowel Movements Output, Urine 250 460 598 8304 500 Patient 196 lb 191 lb Weight Current Medications: Current Medications Sig/Clementine Start time Last Medication Dose Route Stop Time Status Admin Albuterol Sulfate 3 ML TID 10/07 2100 DCD 05 INH 0823 Artificial Tears 2 GTT 4 TIMES/DAY 10/10 2100 DCD 0510 OPH 0816 Bisacodyl 10 MG ONCE PRN 10/14 1245 DCD 10/14 [place] 1340 Bisacodyl 5 MG DAILY 10/13 0845 DCD 0508 PO 0802 Budesonide/ 2 PUF 0700,1900 0506 1900 DCD 0510 Formoterol Fumarate INH 0728 Cyclobenzaprine HCl 5 MG BID 10/14 1030 DCD 0510 PO 0815 Diclofenac Sodium 1 ALVARO 4 TIMES/DAY 10/11 1300 DCD 05 TOP 2108 Diltiazem HCl 120 MG DAILY 10/12 0900 DCD 0510 PO 0814 Guaifenesin 10 ML Q6P PRN 10/12 2030 DCD 0508 PO 2341 Guaifenesin 600 MG Q12 10/08 2100 DCD 05/10 PO 0815 Heparin Sodium/ 25,000 UNIT Q24H / 1515 DCD 05/10 Dextrose IV 0207 Dextrose/Water 500 ML Hydrocodone Bitart/ 1 TAB Q4 HRS NEEDED PRN 10/10 0715 DCD 05/10 Acetaminophen PO 1112 Hydrocodone Bitart/ 2 TAB Q4 HRS NEEDED PRN 10/10 0715 DCD 10/22 Acetaminophen PO 0923 Insulin Aspart 0 TIDAC 10/13 1200 DCD 10/22 SC 0813 Lidocaine 1 PAT DAILY 10/13 1813 DCD 10/22 EXT 0814 Losartan Potassium 25 MG DAILY 10/10 1121 DCD 10/22 PO 0815 Montelukast Sodium 10 MG AT BEDTIME 10/08 2100 DCD 10/21 PO 2104 Morphine Sulfate 15 MG BID 10/19 1335 DCD 10/22 PO 0816 Ondansetron HCl 4 MG Q6P PRN 10/07 1945 DCD 10/08 IV 0950 Pantoprazole Sodium 40 MG DAILY 10/08 0900 DCD 10/22 IV 0814 Polyethylene Glycol 17 GM DAILY 10/09 1115 DCD 10/22 PO 0814 Senna/Docusate Sodium 2 TAB DAILY 10/13 0900 DCD 10/22 PO 0815 Simethicone 40 MG Q6P PRN 10/16 1500 DCD 10/21 PO 1439 Sodium Chloride 2 SPRAY Q4P PRN 10/14 2000 DCD 10/22 KIM 0817 Warfarin Sodium 7.5 MG COUMADIN 1700 ONE 10/21 1700 DC 10/21 PO 10/21 1701 1703 Results Last 48 Hrs of Labs/Mics: Laboratory Tests 10/22/17 1430: APTT Cancelled 10/22/17 0528: Anion Gap 9, Estimated GFR > 60, BUN/Creatinine Ratio 33.3 H, PT 15.8 H, INR 1.44 H, CBC w Diff NO MAN DIFF REQ, RBC 3.31 L, MCV 88.9, MCH 29.5, MCHC 33.2, RDW 15.9 H, MPV 7.1 L, Gran % 67.3, Lymphocytes % 15.8 L, Monocytes % 11.3 H , Eosinophils % 5.2 H, Basophils % 0.4, Absolute Granulocytes 7.9 H, Absolute Lymphocytes 1.9, Absolute Monocytes 1.3 H, Absolute Eosinophils 0.6, Absolute Basophils 0 10/22/17 0205: APTT 81 H 10/21/17 1417: APTT 65 H 10/21/17 0630: Anion Gap 7, Estimated GFR > 60, BUN/Creatinine Ratio 33.3 H, PT 17.8 H, INR 1.63 H, CBC w Diff NO MAN DIFF REQ, RBC 3.26 L, MCV 89.1, MCH 29.2, MCHC 32.7 L, RDW 16.1 H, MPV 7.5, Gran % 71.5, Lymphocytes % 14.0 L, Monocytes % 9.5 H, Eosinophils % 4.5, Basophils % 0.5, Absolute Granulocytes 9.8 H, Absolute Lymphocytes 1.9, Absolute Monocytes 1.3 H, Absolute Eosinophils 0.6, Absolute Basophils 0.1 10/21/17 0140: APTT 90 H 10/20/17 1730: APTT 41 H Assessment/Plan Assessment/Plan Assessment: 1. Status post back fusion surgery 2. Intraoperative and postoperative bradycardia and hypotension, improved 3. Acute blood loss anemia on Xarelto 4. Left upper extremity deep vein thrombus 5. History of hypertension 6. History of hyperlipidemia 7. History of bilateral carotid plaque Plan: * Dose warfarin for INR 2-3 * Consider PA/lateral chest x-ray in view of patient's new worsening cough and sputum production * Continue other cardiac medications; discharge planning and process Continue telemetry? No
== END 2017-10-22 12:00 | DRG 453 ==
LOC: 1NO 01:42 → CRI 01:42 → SDA 01:42 → ENRESERV 17:19 → ENTRNSPT 19:34 → EDTRNSPT 19:45 → EDTRNSPTSTS 19:45 → CMPTRNSPT 19:55 → CRI 20:09 → ENTRNSPT 10-10 15:04 → EDTRNSPTSTS 10-10 16:24 → EDTRNSPT 10-10 16:24 → 1NO 10-10 16:49 → CMPTRNSPT 10-10 17:00 → CRI 10-12 08:58 → 1NO 10-15 17:50 → ENPENDDIS 10-22 10:48 → 1NO 10-22 12:00
PROVIDERS: Dermatology; Hospitalist; Internal Medicine; Internal Medicine Endocrinology, Diabetes & Metabolism; Orthopaedic Surgery Orthopaedic Surgery of the Spine; Physician Assistant; Physician Assistant Surgical; Student in an Organized Health Care Education/Training Program
PROC: 4A11X4G Monitoring of Peripheral Nervous Electrical Activity, Intraoperative, External Approach (ICD-10-PCS; principal; 2017-10-07)
PROC: 0QP004Z Removal of Internal Fixation Device from Lumbar Vertebra, Open Approach (ICD-10-PCS; principal; 2017-10-07)
PROC: 0SB40ZZ Excision of Lumbosacral Disc, Open Approach (ICD-10-PCS; principal; 2017-10-07)
PROC: 0SG30AJ Fusion of Lumbosacral Joint with Interbody Fusion Device, Posterior Approach, Anterior Column, Open Approach (ICD-10-PCS; principal; 2017-10-07)
PROC: 0SG1071 Fusion of 2 or more Lumbar Vertebral Joints with Autologous Tissue Substitute, Posterior Approach, Posterior Column, Open Approach (ICD-10-PCS; principal; 2017-10-07)
PROC: 0SG3071 Fusion of Lumbosacral Joint with Autologous Tissue Substitute, Posterior Approach, Posterior Column, Open Approach (ICD-10-PCS; principal; 2017-10-07)
PROC: 8E0WXBZ Computer Assisted Procedure of Trunk Region (ICD-10-PCS; principal; 2017-10-07)
PROC: 0SG00AJ Fusion of Lumbar Vertebral Joint with Interbody Fusion Device, Posterior Approach, Anterior Column, Open Approach (ICD-10-PCS; principal; 2017-10-07)
PROC: 0SB20ZZ Excision of Lumbar Vertebral Disc, Open Approach (ICD-10-PCS; principal; 2017-10-07)
PROC: 30233N1 Transfusion of Nonautologous Red Blood Cells into Peripheral Vein, Percutaneous Approach (ICD-10-PCS; 2017-10-11)
DX: M51.17 Intervertebral disc disorders with radiculopathy, lumbosacral region (principal); J95.821 Acute postprocedural respiratory failure; I95.89 Other hypotension; E66.01 Morbid (severe) obesity due to excess calories; E83.42 Hypomagnesemia; D62 Acute posthemorrhagic anemia; T81.19XA Other postprocedural shock, initial encounter; Z68.41 Body mass index [BMI] 40.0-44.9, adult; T82.868A Thrombosis due to vascular prosthetic devices, implants and grafts, initial encounter; J44.9 Chronic obstructive pulmonary disease, unspecified; E11.9 Type 2 diabetes mellitus without complications; M43.17 Spondylolisthesis, lumbosacral region; M51.16 Intervertebral disc disorders with radiculopathy, lumbar region; R00.1 Bradycardia, unspecified; M48.061 Spinal stenosis, lumbar region without neurogenic claudication; M48.07 Spinal stenosis, lumbosacral region; M47.27 Other spondylosis with radiculopathy, lumbosacral region; M47.26 Other spondylosis with radiculopathy, lumbar region; M51.37 Other intervertebral disc degeneration, lumbosacral region; M51.36 Other intervertebral disc degeneration, lumbar region; M51.26 Other intervertebral disc displacement, lumbar region; M51.27 Other intervertebral disc displacement, lumbosacral region; I10 Essential (primary) hypertension; E78.00 Pure hypercholesterolemia, unspecified; Z98.1 Arthrodesis status; E78.5 Hyperlipidemia, unspecified; Z79.84 Long term (current) use of oral hypoglycemic drugs; R91.8 Other nonspecific abnormal finding of lung field; Y83.8 Other surgical procedures as the cause of abnormal reaction of the patient, or of later complication, without mention of misadventure at the time of the procedure; I25.10 Atherosclerotic heart disease of native coronary artery without angina pectoris; G47.30 Sleep apnea, unspecified; G89.29 Other chronic pain; I73.9 Peripheral vascular disease, unspecified; D72.829 Elevated white blood cell count, unspecified; Y83.9 Surgical procedure, unspecified as the cause of abnormal reaction of the patient, or of later complication, without mention of misadventure at the time of the procedure; Z88.2 Allergy status to sulfonamides; Z88.0 Allergy status to penicillin; Z88.8 Allergy status to other drugs, medicaments and biological substances; Y84.8 Other medical procedures as the cause of abnormal reaction of the patient, or of later complication, without mention of misadventure at the time of the procedure; Z86.14 Personal history of Methicillin resistant Staphylococcus aureus infection; Z86.73 Personal history of transient ischemic attack (TIA), and cerebral infarction without residual deficits
CPT/HCPCS: 1NP; 75711; 84133; 84300; CCU; 36415; 36592; 71045; 71100-RT; 72100; 72158; 74178; 77002; 81001; 82436; 82570; 86920; 87086; 87147; 88304; 93005; 93010; 93970; 97110-GO; 97112-GO; 97116-GO; 97162-GP; 97164-GP; 97530-GO; A9579; C1713; C1769; C9399; J0131; J0360; J0610; J0690; J1200; J1642; J1644; J1815; J1940; J2001; J2405; J2550; J2920; J3010; J3370; J3490; J7040; J7060; P9016

== ENCOUNTER 2017-10-28 15:32 | Inpatient (IN) | payer OTHER, MEDICARE ==
[~2017-10-28] VITALS: Ht 149.9 cm; Wt 84.8 kg
[~2017-10-28 15:32] MED LIST changes: +COUMADIN10 M1 PO; +COUMADIN5 M2 PO; +HYDROCODON-ACE1 EAC2 PO; +LIDODERM1 EACH EXT; +LOVENOX80 MG/0.1 SC; +MIRALAX119 GM PO; +MORPHINE SULFAT15 M3 PO
--- NOTE | 2017-10-28 15:36 | ED GENERAL ADULT ---
History of Present Illness General Chief Complaint: General Adult Stated Complaint: BIBA WITH POSSIBLE INFECTION Source: patient Exam Limitations: no limitations Vital Signs & Intake/Output Vital Signs & Intake/Output Vital Signs Date Time Temp Pulse Resp B/P B/P Pulse O2 O2 Flow FiO2 Mean Ox Delivery Rate 10/28 1933 82 18 161/70 98 Room Air 10/28 1535 98.2 82 18 161/71 95 Allergies Coded Allergies: Sulfa (Sulfonamide Antibiotics) (Intermediate, SKIN TURNS PURPLE/HOT 10/28/17) Penicillins (Mild, ITCHING 10/28/17) aspirin (HX GASTRITIS 10/28/17) ASA->BLEEDING atorvastatin (PER PT MED LIST 10/28/17) prednisone (Severe, VISION CHANGES 10/28/17) Uncoded Allergies: ENVIRONMENTAL (UNKNOWN 07/20/13) MULTIPLE ANTIBIOTICS (UNKNOWN 07/20/13) Reconcile Medications Albuterol Sulfate (Proair Hfa) 90 MCG HFA.AER.AD 2 PUF INH PRN ASTHMA/ ALLERGIES (Reported) Ascorbate Calcium (Vitamin C) 500 MG TABLET 1 TAB PO DAILY SUPPLEMENT ( Reported) Azelastine/Fluticasone (Dymista Nasal Holt) 137 MCG-50 MCG/SPRAY SPRAY.PUMP 1 SPRAY NASB PRN ALLERGIES (Reported) Budesonide/Formoterol Fumarate (Symbicort 160-4.5 Mcg Inhaler) 160 MCG-4.5 MCG/ ACTUATION HFA.AER.AD 2 PUFF INH BID ASTHMA/ALLERGIES (Reported) Cetirizine HCl (Zyrtec) 10 MG CAPSULE 1 CAP PO DAILY ALLERGIES (Reported) Cholecalciferol (Vitamin D3) (Vitamin D) 1,000 UNIT TABLET 1 TAB PO DAILY SUPPLEMENT (Reported) Cyclobenzaprine HCl 5 MG TABLET 1 TAB PO QHS MUSCLE SPASMS (Reported) Diltiazem HCl (Cartia Xt) 120 MG CAP.ER.24H 1 CAP PO DAILY CARDIAC (Reported) Docusate Sodium (Colace) 100 MG CAPSULE 1 CAP PO BID STOOL SOFTENER (Reported ) Enoxaparin Sodium (Lovenox) 80 MG/0.8 ML SYRINGE 80 MG SC BID DVT 80 mg BID until INR is therapeutic then discontinue Check INR daily until therapeutic Gabapentin 300 MG CAPSULE 1 CAP PO PRN PAIN (Reported) Glimepiride 2 MG TABLET 1.5 TAB PO DAILY DM (Reported) Hydrocodone/Acetaminophen (Hydrocodon-Acetaminophen 5-325) 5 MG-325 MG TABLET 1 TAB PO Q4 HRS NEEDED PRN PAIN SCALE 4-6 (MODERATE) Hydrocodone/Acetaminophen (Hydrocodon-Acetaminophen 5-325) 5 MG-325 MG TABLET 2 TAB PO Q4 HRS NEEDED PRN PAIN SCALE 7-10 (SEVERE) Iron Carb,Gl/FA/B12/C/Docusate (Ferralet 90 Tablet) 90 MG-1 MG-12 MCG-120 MG-50 MG TABLET 1 TAB PO DAILY SUPPLEMENT (Reported) Lidocaine (Lidoderm) 5 % ADH..PATCH 1 PAT EXT DAILY PRN Post-op pain Losartan Potassium (Cozaar) 25 MG TABLET 1 TAB PO DAILY HTN (Reported) Magnesium Oxide (Magnesium) (Unknown Strength) CAPSULE (Unknown Dose) PO TID SUPPLEMENT (Reported) Melatonin 10 MG CAPSULE 1 CAP PO QPM SLEEP (Reported) Montelukast Sodium (Singulair) 10 MG TABLET 1 TAB PO DAILY ALLERGIES ( Reported) Morphine Sulfate (Morphine Sulfate ER) 15 MG TABLET.ER 15 MG PO BID Post-op pain Multiple Vitamin (Multivitamins) 1 EACH TABLET 1 TAB PO DAILY SUPPLEMENT ( Reported) Multivit-Min/FA/Lutein/Zeaxant (Macular Vitamin Tablet) 500 MCG-5 MG-1 MG TABLET 1 TAB PO DAILY SUPPLEMENT (Reported) Omeprazole 40 MG CAPSULE.DR 1 CAP PO DAILY AC GERD (Reported) Polyethylene Glycol 3350 (Miralax) 17 GRAM/DOSE POWDER 17 GM PO DAILY opiod constipation Sitagliptin Phosphate (Januvia) 100 MG TABLET 1 TAB PO DAILY DM (Reported) Tobramycin (Tobrex) 0.3 % DROPS 2 GTT OPH TID EYE (Reported) Warfarin Sodium (Coumadin) 10 MG TABLET 1 TAB PO DAILY DVT Triage Nurses Notes Reviewed? yes Onset: Abrupt Duration: day(s): Timing: recent history HPI: 10/28/17 The patient presents to the emergency department for revision and washout of her spine incision. She is status post spinal fusion by Dr. Gandara. She's been having ongoing drainage from the wound. Past History Travel History Traveled to [place] past 21 day No Medical History Any Pertinent Medical History? 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 No Review of Systems Review of Systems Constitutional: Denies: fever. EENTM: Reports: no symptoms. Respiratory: Denies: short of breath. Cardiovascular: Denies: chest pain. GI: Denies: abdominal pain. Genitourinary: Reports: no symptoms. Musculoskeletal: Reports: see HPI. Skin: Reports: see HPI. Neurological/Psychological: Reports: no symptoms. Hematologic/Endocrine: Reports: no symptoms. Immunologic/Allergic: Reports: no symptoms. Physical Exam Physical Exam General Appearance: well developed/nourished Head: atraumatic Eyes: Bilateral: normal appearance, PERRL, EOMI. Ears, Nose, Throat: normal pharynx Neck: normal inspection Respiratory: no respiratory distress Cardiovascular: regular rate/rhythm Peripheral Pulses: 4+ radial (R), 4+ radial (L) Gastrointestinal: non-tender Extremities: no edema Neurologic/Psych: no motor/sensory deficits, awake, alert, oriented x 3 Skin: intact Core Measures ACS in differential dx? No CVA/TIA Diagnosis: No Sepsis Present: No Sepsis Focused Exam Completed? No Progress Differential Diagnoses I considered the following diagnoses in my evaluation of the patient: [Wound infection, osteomyelitis] Plan of Care: Orders Procedure Date/time Status Nothing by Mouth 10/29 B Active PARTIAL THROMBOPLASTIN TIME 10/29 0500 Active PROTHROMBIN TIME 10/29 0500 Active HIGH SENSITIVITY CRP 10/29 0500 Active WESTERGREN SED RATE 10/29 0500 Active CBC WITHOUT DIFFERENTIAL 10/29 0500 Active Consistent Carbohydrate 3 10/28 D Complete BLOOD CULTURE 10/28 1835 Active FingerStick- Glucose 10/28 1818 Active Patient Data 10/28 1805 Active PROTHROMBIN TIME 10/28 1553 Complete COMPREHENSIVE METABOLIC PANEL 10/28 1553 Complete CBC WITHOUT DIFFERENTIAL 10/28 1553 Complete TYPE & SCREEN (NOT X-MATCH) 10/28 1553 Complete EKG 10/28 1549 Active ED Holding Orders 10/28 1541 Active Admit to inpatient 10/28 1541 Active Vital Signs 10/28 1541 Active Code Status 10/28 1541 Active Current Medications Sig/Clementine Start time Last Medication Dose Stop Time Status Admin Diltiazem HCl 120 MG DAILY 10/29 0900 AC (Cardizem CD) Loratadine 10 MG DAILY 10/29 09 AC (Claritin) Losartan Potassium 25 MG DAILY 10/29 09 AC (Cozaar) Montelukast Sodium 10 MG DAILY 10/29 09 AC (Singulair) Omeprazole 40 MG DAILY AC 10/29 07 AC (Prilosec) Dextrose/Sodium 1,000 ML Q10H 10/29 0000 AC Chloride (D5-Normal Saline) Artificial Tears 2 GTT 4 TIMES/DAY 10/28 2099 UNVr (Tears Natural) Insulin Human Regular 0 TIDAC/HS 10/28 2099 AC (NovoLIN R) Phytonadione 5 MG ONCE ONE 10/29 1999 AC (Mephyton 5MG Tab) 10/28 2000 Sodium Chloride 2 SPRAY Q4P PRN 10/29 1999 UNVr (Nasal) Morphine Sulfate 2 MG Q2P PRN 10/28 1944 UNVr (Morphine) Morphine Sulfate 4 MG Q3P PRN 10/28 1944 UNVr (MORPHINE SULFATE) Acetaminophen 650 MG Q4P PRN 10/28 190 AC (Tylenol) Ondansetron HCl 4 MG Q6P PRN 10/28 190 AC (Zofran) Albuterol Sulfate 2 PUF Q6P PRN 10/28 181 AC (Ventolin) Laboratory Tests 10/28/17 1625: Anion Gap 11, Estimated GFR > 60, BUN/Creatinine Ratio 18.6, Glucose 126 H, Calcium 9.5, Total Bilirubin 0.5, AST 29, ALT 26, Alkaline Phosphatase 149 H, Total Protein 6.7, Albumin 3.9, Globulin 2.8, Albumin/Globulin Ratio 1.4, PT 20.4 H, INR 1.86 H, CBC w Diff NO MAN DIFF REQ, RBC 3.87 L, MCV 87.9, MCH 29.0, MCHC 33.1, RDW 14.8 H, MPV 7.3 L, Gran % 72.8, Lymphocytes % 14.3 L, Monocytes % 9.1, Eosinophils % 3.6, Basophils % 0.2, Absolute Granulocytes 8.8 H, Absolute Lymphocytes 1.7, Absolute Monocytes 1.1 H, Absolute Eosinophils 0.4 , Absolute Basophils 0 Microbiology 10/28 1834 BLOOD: Blood Culture - COLB 10/28 1834 BLOOD: Blood Culture - COLB Initial ED EKG: pending Departure Departure Disposition: STILL A PATIENT Condition: Stable Clinical Impression Primary Impression: Wound infection Referrals: Radha HARRIS,Flavio Chaudhry (PCP/Family) Departure Forms: Customer Survey General Discharge Information Comments 10/28/17 The patient has serosanguineous discharge from her lumbar wound. Admission Note Spoke With: Dania HARRIS,Ray Rose Documentation of Exam: Documentation of any treatments & extenuating circumstances including Concerns Regarding Discharge (functional status, medication knowledge or non-compliance, living conditions, etc.) that warrant an admission rather than observation: [The patient needs admission for IV antibiotics and operative intervention] Critical Care Note Critical Care Note Critical Care Time: non-applicable
--- NOTE | 2017-10-28 16:31 | RADIOLOGY REPORT ---
EXAMINATION: XR PORTABLE CHEST CLINICAL INFORMATION: For OR. COMPARISON: Chest radiograph 10/21/2017. TECHNIQUE: Portable frontal view of the chest was obtained. FINDINGS: There is elevation of the right hemidiaphragm. The lungs are otherwise clear without consolidation, edema, or effusion. No pneumothorax. The cardiomediastinal silhouette appears normal. IMPRESSION: No active disease in the chest.
[2017-10-28 16:36] LABS: ABSOLUTE BASOPHIL COUNT 0 /CUMM (0.0-0.2); ABSOLUTE EOSINOPHIL COUNT 0.4 /CUMM (0.0-0.7); ABSOLUTE GRANULOCYTE CT 8.8 /CUMM (1.4-6.5); ABSOLUTE LYMPH COUNT 1.7 /CUMM (1.2-3.4); ABSOLUTE MONOCYTE COUNT 1.1 /CUMM (0.10-0.60); BASOPHIL % 0.2 % (0.0-2.0); EOSINOPHIL % 3.6 % (0-5); GRANULOCYTE % 72.8 % (42.2-75.2); MEAN CORPUSCULAR HGB CONC 33.1 G/DL (33.0-37.0); MEAN CORPUSCULAR VOLUME 87.9 FL (81.0-99.0); MEAN PLATELET VOLUME 7.3 FL (7.4-10.4); PLATELET COUNT 462 /CUMM (130-400); RBC DISTRIBUTION WIDTH 14.8 % (11.5-14.5); RED BLOOD CELL CT 3.87 /CUMM (4.20-5.40); WHITE BLOOD CELL COUNT 12.1 /CUMM (4.8-10.8)
[2017-10-28 16:43] LABS: PT 20.4 SEC (9.4-12.5)
--- NOTE | 2017-10-28 18:23 | Admission Core Measures ---
Acute Coronary Syndrome (CM) ACS Core Measures Acute Coronary Syndrome Diagnosis No Congestive Heart Failure (NEW) CHF Core Measures Congestive Heart Failure Diagnosis No Cerebrovascular Accident (NEW) CVA Core Measures CVA/TIA Diagnosis No Venous Thromboembolism VTE Core Barbara (View Protocol) VTE Risk Factors Age>40 No Mechanical VTE Prophylaxis d/t N/A MechProphylax Ordered No VTE Pharm Prophylaxis d/t Surgical Contraindication Problem List As ranked by this Provider includes Assessment & Plan 1. Wound infection HOME MEDS Home Med List Albuterol Sulfate (Proair Hfa) 90 MCG HFA.AER.AD 2 PUF INH PRN ASTHMA/ ALLERGIES (Reported) Ascorbate Calcium (Vitamin C) 500 MG TABLET 1 TAB PO DAILY SUPPLEMENT ( Reported) Azelastine/Fluticasone (Dymista Nasal [place]) 137 MCG-50 MCG/SPRAY SPRAY.PUMP 1 SPRAY NASB PRN ALLERGIES (Reported) Budesonide/Formoterol Fumarate (Symbicort 160-4.5 Mcg Inhaler) 160 MCG-4.5 MCG/ ACTUATION HFA.AER.AD 2 PUFF INH BID ASTHMA/ALLERGIES (Reported) Cetirizine HCl (Zyrtec) 10 MG CAPSULE 1 CAP PO DAILY ALLERGIES (Reported) Cholecalciferol (Vitamin D3) (Vitamin D) 1,000 UNIT TABLET 1 TAB PO DAILY SUPPLEMENT (Reported) Cyclobenzaprine HCl 5 MG TABLET 1 TAB PO QHS MUSCLE SPASMS (Reported) Diltiazem HCl (Cartia Xt) 120 MG CAP.ER.24H 1 CAP PO DAILY CARDIAC (Reported) Docusate Sodium (Colace) 100 MG CAPSULE 1 CAP PO BID STOOL SOFTENER (Reported ) Enoxaparin Sodium (Lovenox) 80 MG/0.8 ML SYRINGE 80 MG SC BID DVT Gabapentin 300 MG CAPSULE 1 CAP PO PRN PAIN (Reported) Glimepiride 2 MG TABLET 1.5 TAB PO DAILY DM (Reported) Hydrocodone/Acetaminophen (Hydrocodon-Acetaminophen 5-325) 5 MG-325 MG TABLET 1 TAB PO Q4 HRS NEEDED PRN PAIN SCALE 4-6 (MODERATE) Hydrocodone/Acetaminophen (Hydrocodon-Acetaminophen 5-325) 5 MG-325 MG TABLET 2 TAB PO Q4 HRS NEEDED PRN PAIN SCALE 7-10 (SEVERE) Iron Carb,Gl/FA/B12/C/Docusate (Ferralet 90 Tablet) 90 MG-1 MG-12 MCG-120 MG-50 MG TABLET 1 TAB PO DAILY SUPPLEMENT (Reported) Lidocaine (Lidoderm) 5 % ADH..PATCH 1 PAT EXT DAILY PRN Post-op pain Losartan Potassium (Cozaar) 25 MG TABLET 1 TAB PO DAILY HTN (Reported) Magnesium Oxide (Magnesium) (Unknown Strength) CAPSULE (Unknown Dose) PO TID SUPPLEMENT (Reported) Melatonin 10 MG CAPSULE 1 CAP PO QPM SLEEP (Reported) Montelukast Sodium (Singulair) 10 MG TABLET 1 TAB PO DAILY ALLERGIES ( Reported) Morphine Sulfate (Morphine Sulfate ER) 15 MG TABLET.ER 15 MG PO BID Post-op pain Multiple Vitamin (Multivitamins) 1 EACH TABLET 1 TAB PO DAILY SUPPLEMENT ( Reported) Multivit-Min/FA/Lutein/Zeaxant (Macular Vitamin Tablet) 500 MCG-5 MG-1 MG TABLET 1 TAB PO DAILY SUPPLEMENT (Reported) Omeprazole 40 MG CAPSULE.DR 1 CAP PO DAILY AC GERD (Reported) Polyethylene Glycol 3350 (Miralax) 17 GRAM/DOSE POWDER 17 GM PO DAILY opiod constipation Sitagliptin Phosphate (Januvia) 100 MG TABLET 1 TAB PO DAILY DM (Reported) Tobramycin (Tobrex) 0.3 % DROPS 2 GTT OPH TID EYE (Reported) Warfarin Sodium (Coumadin) 10 MG TABLET 1 TAB PO DAILY DVT Discontinued Medications Acetaminophen (8HR Arthritis Pain Relief) 650 MG TABLET.ER 2 TAB PO QHS PAIN (Reported) Discontinued reason: Per Doctor Decision Clopidogrel Bisulfate (Plavix) 75 MG TABLET 1 TAB PO DAILY ANTICOAGULATION ( Reported) Discontinued reason: Per Doctor Decision
--- NOTE | 2017-10-28 18:46 | History & Physical ---
General Information and HPI MD Statement: I have seen and personally examined TAMMY EDUARDO and documented this H&P. The patient is a 71 year old F who presented with a patient stated chief complaint of lumbar wound infection []. Source of Information: patient, family, old records Exam Limitations: no limitations History of Present Illness: Ms. Eduardo is a 71-year-old female with past medical history significant for asthma, COPD not on home oxygen, history of multiple admissions for MRSA pneumonia, hypertension, hyperlipidemia, diabetes mellitus, TIA on Plavix, insomnia, GERD, osteoarthritis, carpal tunnel syndrome, peripheral vascular disease, bilateral lung nodules, previous occluded right internal carotid artery with no significant flow, chronic back pain status post spinal fusion in 2012, who is now status post lumbar fusion 10/07/2017. She was discharged on 2017. Her hospital stay was complicated with an intraoperative bradycardic event requiring post ICU observation. However when she was transferred to the floor she had a respiratory decompensation event that required reintubation and observation in the ICU. This was mostly directed to her hypovolemic state due to postop hemorrhagic anemia. Also during his hospital stay it was discovered that she had a right upper extremity DVT for which she was discharged on Lovenox and Coumadin. After her discharge on 10/22/2017 she was [facility] a [facility] at which time her wound continued to drain. It was initially serous. An evaluation by Dr. fazal webb yesterday it was determined that this serous drainage has now become purulent. Currently she will be admitted to the surgical service under Dr. fazal ramos care for intraoperative irrigation debridement in a.m. Allergies/Medications Allergies: Coded Allergies: Sulfa (Sulfonamide Antibiotics) (Intermediate, SKIN TURNS PURPLE/HOT 10/28/17) Penicillins (Mild, ITCHING 10/28/17) aspirin (HX GASTRITIS 10/28/17) ASA->BLEEDING atorvastatin (PER PT MED LIST 10/28/17) prednisone (Severe, VISION CHANGES 10/28/17) Uncoded Allergies: ENVIRONMENTAL (UNKNOWN 07/20/13) MULTIPLE ANTIBIOTICS (UNKNOWN 07/20/13) Home Med list Albuterol Sulfate (Proair Hfa) 90 MCG HFA.AER.AD 2 PUF INH PRN ASTHMA/ ALLERGIES (Reported) Ascorbate Calcium (Vitamin C) 500 MG TABLET 1 TAB PO DAILY SUPPLEMENT ( Reported) Azelastine/Fluticasone (Dymista Nasal [place]) 137 MCG-50 MCG/SPRAY SPRAY.PUMP 1 SPRAY NASB PRN ALLERGIES (Reported) Budesonide/Formoterol Fumarate (Symbicort 160-4.5 Mcg Inhaler) 160 MCG-4.5 MCG/ ACTUATION HFA.AER.AD 2 PUFF INH BID ASTHMA/ALLERGIES (Reported) Cetirizine HCl (Zyrtec) 10 MG CAPSULE 1 CAP PO DAILY ALLERGIES (Reported) Cholecalciferol (Vitamin D3) (Vitamin D) 1,000 UNIT TABLET 1 TAB PO DAILY SUPPLEMENT (Reported) Cyclobenzaprine HCl 5 MG TABLET 1 TAB PO QHS MUSCLE SPASMS (Reported) Diltiazem HCl (Cartia Xt) 120 MG CAP.ER.24H 1 CAP PO DAILY CARDIAC (Reported) Docusate Sodium (Colace) 100 MG CAPSULE 1 CAP PO BID STOOL SOFTENER (Reported ) Enoxaparin Sodium (Lovenox) 80 MG/0.8 ML SYRINGE 80 MG SC BID DVT 80 mg BID until INR is therapeutic then discontinue Check INR daily until therapeutic Gabapentin 300 MG CAPSULE 1 CAP PO PRN PAIN (Reported) Glimepiride 2 MG TABLET 1.5 TAB PO DAILY DM (Reported) Hydrocodone/Acetaminophen (Hydrocodon-Acetaminophen 5-325) 5 MG-325 MG TABLET 1 TAB PO Q4 HRS NEEDED PRN PAIN SCALE 4-6 (MODERATE) Hydrocodone/Acetaminophen (Hydrocodon-Acetaminophen 5-325) 5 MG-325 MG TABLET 2 TAB PO Q4 HRS NEEDED PRN PAIN SCALE 7-10 (SEVERE) Iron Carb,Gl/FA/B12/C/Docusate (Ferralet 90 Tablet) 90 MG-1 MG-12 MCG-120 MG-50 MG TABLET 1 TAB PO DAILY SUPPLEMENT (Reported) Lidocaine (Lidoderm) 5 % ADH..PATCH 1 PAT EXT DAILY PRN Post-op pain Losartan Potassium (Cozaar) 25 MG TABLET 1 TAB PO DAILY HTN (Reported) Magnesium Oxide (Magnesium) (Unknown Strength) CAPSULE (Unknown Dose) PO TID SUPPLEMENT (Reported) Melatonin 10 MG CAPSULE 1 CAP PO QPM SLEEP (Reported) Montelukast Sodium (Singulair) 10 MG TABLET 1 TAB PO DAILY ALLERGIES ( Reported) Morphine Sulfate (Morphine Sulfate ER) 15 MG TABLET.ER 15 MG PO BID Post-op pain Multiple Vitamin (Multivitamins) 1 EACH TABLET 1 TAB PO DAILY SUPPLEMENT ( Reported) Multivit-Min/FA/Lutein/Zeaxant (Macular Vitamin Tablet) 500 MCG-5 MG-1 MG TABLET 1 TAB PO DAILY SUPPLEMENT (Reported) Omeprazole 40 MG CAPSULE.DR 1 CAP PO DAILY AC GERD (Reported) Polyethylene Glycol 3350 (Miralax) 17 GRAM/DOSE POWDER 17 GM PO DAILY opiod constipation Sitagliptin Phosphate (Januvia) 100 MG TABLET 1 TAB PO DAILY DM (Reported) Tobramycin (Tobrex) 0.3 % DROPS 2 GTT OPH TID EYE (Reported) Warfarin Sodium (Coumadin) 10 MG TABLET 1 TAB PO DAILY DVT Past History Travel History Traveled to [place] past 21 day No Medical History Neurological: TIA EENT: NONE Cardiovascular: hypertension, hyperlipidemia, CAROTID ARTERY STENOSIS Respiratory: asthma, bronchitis, COPD, MRSA PNA Gastrointestinal: GERD Hepatic: STEATOSIS OF LIVER Renal: NONE Musculoskeletal: osteoarthritis, chronic back pain s/p spinal fusion; OA CARPAL TUNNEL Psychiatric: NONE Endocrine: NIDDM Blood Disorders: NONE Cancer(s): 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 [employer] History of MRSA: Yes History of VRE: Yes History of CDIFF: No Pneumonia Vaccine: 07/30/13 Influenza Vaccine: 03/15/14 Surgical History Surgical History: spinal fusion (lumbar), status post carpal tunnel release right rotator cuff Past Family/Social History Family History Relations & Conditions if any FATHER Relation not specified for: FH: myocardial infarction Psychosocial History ETOH Use: denies use Illicit Drug Use: denies illicit drug use Review of Systems Review of Systems Constitutional: Denies: no symptoms, see HPI, chills, diaphoresis, fever, malaise, weakness, unexplained weight loss. Exam & Diagnostic Data Last 24 Hrs of Vital Signs/I&O Vital Signs Date Time Temp Pulse Resp B/P B/P Pulse O2 O2 Flow FiO2 Mean Ox Delivery Rate 10/28 1535 98.2 82 18 161/71 95 Physical Exam General Appearance Alert, Oriented X3, Cooperative, No Acute Distress Skin No Significant Lesion HEENT PERRLA Cardiovascular Regular Rate, Normal S1, Normal S2 Lungs Clear to Auscultation Abdomen Normal Bowel Sounds, Soft Neurological Strength at 5/5 X4 Ext Extremities bilateral +2 lower extremity edema, lumbar wound with fluctuant area at lumbar incision with purulent drainage expressed at palpation. No evidence of fulminant cellulitis but area is indurated and erythematous. Vascular Normal Pulses Last 24 Hrs of Labs/Chucky: Laboratory Tests 10/28/171624: Anion Gap 11, Estimated GFR > 60, BUN/Creatinine Ratio 18.6, Glucose 126 H, Calcium 9.5, Total Bilirubin 0.5, AST 29, ALT 26, Alkaline Phosphatase 149 H, Total Protein 6.7, Albumin 3.9, Globulin 2.8, Albumin/Globulin Ratio 1.4, PT 20.4 H, INR 1.86 H, CBC w Diff NO MAN DIFF REQ, RBC 3.87 L, MCV 87.9, MCH 29.0, MCHC 33.1, RDW 14.8 H, MPV 7.3 L, Gran % 72.8, Lymphocytes % 14.3 L, Monocytes % 9.1, Eosinophils % 3.6, Basophils % 0.2, Absolute Granulocytes 8.8 H, Absolute Lymphocytes 1.7, Absolute Monocytes 1.1 H, Absolute Eosinophils 0.4 , Absolute Basophils 0 Microbiology 10/28 1834 BLOOD: Blood Culture - COLB 10/28 1834 BLOOD: Blood Culture - COLB Diagnostic Data CXR Results SERVICE DATE: 10/28/17 EXAM TYPE: RAD - XRY-PORTABLE CHEST XRAY EXAMINATION: XR PORTABLE CHEST CLINICAL INFORMATION: For OR. COMPARISON: Chest radiograph 10/21/2017. TECHNIQUE: Portable frontal view of the chest was obtained. FINDINGS: There is elevation of the right hemidiaphragm. The lungs are otherwise clear without consolidation, edema, or effusion. No pneumothorax. The cardiomediastinal silhouette appears normal. IMPRESSION: No active disease in the chest. DICTATED BY: Mary Alice Patel MD DATE/TIME DICTATED:10/28/171624 REFRACTORY TILE HELPER:SANGEETA Assessment/Plan Assessment: Miss Eduardo is 71-year-old female with extensive past cardiopulmonary history who underwent recent lumbar surgery with fusion that resulted in an extended hospital stay due to postop hemorrhagic anemia and bradycardic event involving respiratory distress. She was discharged after these symptoms have resolved however her wound continues to drain post discharge that is now a lumbar wound draining purulent fluid. Value H and by Dr. Batista or yesterday. He determined that the patient should return to the hospital for washout of this lumbar wound in the operating room in a.m. Prior to this surgery due to her previous admission and past medical history we will obtain a medical consultation from the hospitalist service to address her anticoagulation status with an INR 1.86 and options for presurgical reversal. We will also recommend that the medical team to involve to assist with medical management of all her prehospital medical conditions. As Ranked By This Provider Problem List: 1. Diabetes mellitus 2. Hypertension 3. Leukocytosis 4. MRSA (methicillin resistant staph aureus) culture positive 5. DVT (deep venous thrombosis) 6. Wound infection Core Measures/Misc (03/01) Acute Coronary Syndrome ACS Diagnosis: No Congestive Heart Failure Congestive Heart Failure Diagnosis No Cerebrovascular Accident CVA/TIA Diagnosis: No VTE (View Protocol) VTE Risk Factors Age>40 No Mechanical VTE Prophylaxis d/t N/A MechProphylax Ordered No VTE Pharm Prophylaxis d/t Surgical Contraindication Sepsis (View protocol) Sepsis Present: Yes
--- NOTE | 2017-10-28 22:11 | Cons- Medical ---
Javier HARRIS,[facility] 10/28/17 2210: General Information and HPI Consulting Request Date of Consult: 10/28/17 Requested By: Dania HARRIS,Ray Rose Reason for Consult: Comanagement for multiple medical diseases Guidance regarding anticoagulation in setting of recent history of upper extremity DVT Source of Information: patient, old records Exam Limitations: no limitations History of Present Illness: Ms. Eduardo is 71 year old female with past medical history significant for COPD not on home oxygen, asthma, MRSA pneumonia, [id number]-[id number] diabetes mellitus, hypertension, hyperlipidemia, TIA on Plavix, insomnia, GERD, osteoarthritis, PVD, carpal tunnel syndrome, bilateral lung nodules, occluded right ICA, and chronic back pain status post spinal fusion (2012) and lumbar fusion 10/07/2017 complicated with bradycardia, new onset of junctional rhythm resolved, respiratory distress, postop hemorrhagic anemia and right upper extremity DVT at site of PICC line (that was placed for extreme difficulty finding a peripheral line) on Coumadin. Patient was discharged on 10/22/2017 to [facility]. Patient reported feeling well since discharge except of some soreness at the site of surgery, denied any fever, chills, chest pain, shortness of breath, palpitation. She reported seeing some brown fluid on the bed sheet, had follow up on Thursday where she was evaluated by Ray Najera MD PA and was asked to come next day to see Dr. Najera for reevaluation. Patient was advised to come to ED for evaluation upon finding some purulent discharge from the surgical wound. Patient reported good oral intake, denied fatigue, weakness, numbness, weight loss, night sweats. Patient was admitted under surgical services for intraoperative irrigation debridement in a.m. We were asked to comanage patient's chronic medical issues and to guide presurgical INR reversal. Allergies/Medications Allergies: Coded Allergies: Sulfa (Sulfonamide Antibiotics) (Intermediate, SKIN TURNS PURPLE/HOT 10/28/17) Penicillins (Mild, ITCHING 10/28/17) aspirin (HX GASTRITIS 10/28/17) ASA->BLEEDING atorvastatin (PER PT MED LIST 10/28/17) prednisone (Severe, VISION CHANGES 10/28/17) Uncoded Allergies: ENVIRONMENTAL (UNKNOWN 07/20/13) MULTIPLE ANTIBIOTICS (UNKNOWN 07/20/13) Review of Systems Review of Systems Constitutional: Reports: see HPI. Denies: chills, fever, weakness. EENTM: Denies: blurred vision, visual changes. Cardiovascular: Denies: chest pain, palpitations. Respiratory: Denies: cough, short of breath. GI: Denies: constipation, diarrhea, nausea, vomiting. Genitourinary: Denies: dysuria, frequency. Musculoskeletal: Denies: joint pain, joint swelling, muscle pain. Skin: Denies: erythema, rash. Neurological/Psychological: Denies: ataxia, confusion, headache, numbness. Hematologic/Endocrine: Denies: bruising, bleeding. 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 Surgical History Surgical History: spinal fusion (lumbar), status post carpal tunnel release right rotator cuff Family History Relations & Conditions If Any: FATHER Relation not specified for: FH: myocardial infarction Psychosocial History Smoking Status: Unknown If Ever Smoked ETOH Use: denies use Illicit Drug Use: denies illicit drug use Exam & Diagnostic Data Last 24 Hrs of Vital Signs/I&O Vital Signs Date Time Temp Pulse Resp B/P B/P Pulse O2 O2 Flow FiO2 Mean Ox Delivery Rate 10/28 2220 98.3 79 18 144/60 97 Room Air 10/28 1933 82 18 161/70 98 Room Air 10/28 1535 98.2 82 18 161/71 95 Intake & Output 10/29 0800 10/29 0000 10/28 1600 Intake Total Output Total Balance Patient 84.822 kg Weight Weight Reported by Patient Measurement Method Physical Exam General Appearance: well developed/nourished, no apparent distress, alert, awake Head: atraumatic, normal appearance Eyes: Bilateral: PERRL, EOMI. Ears, Nose, Throat: normal pharynx, normal ENT inspection, hearing grossly normal Neck: normal inspection, supple, full range of motion Respiratory: normal breath sounds, chest non-tender, quiet respiration Cardiovascular: regular rate/rhythm, edema Gastrointestinal: normal bowel sounds, soft, non-tender Back: midline lumber surgical incision, indurated, erythematous and dehisced. serosanguineous fluid draining from the wound. Extremities: normal inspection, normal capillary refill, normal range of motion, no edema Neurologic/Psych: no motor/sensory deficits, awake, alert, oriented x 3, psych sales specialist II- XII nml as tested Last 24 Hrs of Labs/Chucky: Laboratory Tests 10/28/17 1625: Anion Gap 11, Estimated GFR > 60, BUN/Creatinine Ratio 18.6, Glucose 126 H, Calcium 9.5, Total Bilirubin 0.5, AST 29, ALT 26, Alkaline Phosphatase 149 H, Troponin I < 0.01, Total Protein 6.7, Albumin 3.9, Globulin 2.8, Albumin/ Globulin Ratio 1.4, PT 20.4 H, INR 1.86 H, CBC w Diff NO MAN DIFF REQ, RBC 3.87 L, MCV 87.9, MCH 29.0, MCHC 33.1, RDW 14.8 H, MPV 7.3 L, Gran % 72.8, Lymphocytes % 14.3 L, Monocytes % 9.1, Eosinophils % 3.6, Basophils % 0.2, Absolute Granulocytes 8.8 H, Absolute Lymphocytes 1.7, Absolute Monocytes 1.1 H, Absolute Eosinophils 0.4, Absolute Basophils 0 Assessment/Plan Assessment/Plan Ms. Eduardo is 71 year old female with past medical history significant for COPD not on home oxygen, asthma, MRSA pneumonia, [id number] diabetes mellitus, hypertension, hyperlipidemia, TIA, insomnia, GERD, osteoarthritis, PVD , carpal tunnel syndrome, bilateral lung nodules, occluded right ICA, and chronic back pain status post spinal fusion (2012) and lumbar fusion 10/07/2017 complicated with bradycardia, new onset of junctional rhythm resolved, respiratory distress, postop hemorrhagic anemia and right upper extremity DVT at site of PICC line (that was placed for extreme difficulty finding a peripheral line) on Coumadin. Patient was discharged on 10/22/2017 to [facility]. Patient was admitted under surgical services for intraoperative irrigation debridement in a.m. We were asked to comanage patient's chronic medical issues and to guide presurgical INR reversal. Problem list #Surgical wound dehiscence with purulent discharge #Mild leukocytosis #History of right upper extremity DVT on Coumadin with INR 1.86 #History of hypertension, hyperlipidemia, diabetes Recommendation Vital signs every shift Repeat BEP and CBC in a.m. Blood type and crossmatch Patient status post 5 mg p.o. vitamin K to reverse INR of 1.86. INR target is < 1.5 Repeat INR in a.m. and if continue to be above target recommendation of FFB Continue to hold Coumadin Postsurgery recommendation to resume Coumadin with bridge by heparin IV or Lovenox Continue home medication except for hypoglycemic agents NovoLog sliding scale and Accu-Chek every 6 as patient is n.p.o. IV fluid D5 half normal saline while n.p.o. Pain management Vicodin every 4 for moderate pain and morphine IV for severe pain Aggressive bowel regimen as patient has history of severe constipation MiraLAX and senna DVT prophylaxis Alps Diet n.p.o. for surgery in a.m. Code full Consult Acknowledgment - Thank you for your consult request. Hemant HARRIS, [facility] 10/29/17 0001: General Information and HPI Allergies/Medications Home Med List: Albuterol Sulfate (Proair Hfa) 90 MCG HFA.AER.AD 2 PUF INH PRN ASTHMA/ ALLERGIES (Reported) Ascorbate Calcium (Vitamin C) 500 MG TABLET 1 TAB PO DAILY SUPPLEMENT ( Reported) Azelastine/Fluticasone (Dymista Nasal [place]) 137 MCG-50 MCG/SPRAY SPRAY.PUMP 1 SPRAY NASB PRN ALLERGIES (Reported) Budesonide/Formoterol Fumarate (Symbicort 160-4.5 Mcg Inhaler) 160 MCG-4.5 MCG/ ACTUATION HFA.AER.AD 2 PUFF INH BID ASTHMA/ALLERGIES (Reported) Cetirizine HCl (Zyrtec) 10 MG CAPSULE 1 CAP PO DAILY ALLERGIES (Reported) Cholecalciferol (Vitamin D3) (Vitamin D) 1,000 UNIT TABLET 1 TAB PO DAILY SUPPLEMENT (Reported) Cyclobenzaprine HCl 5 MG TABLET 1 TAB PO QHS MUSCLE SPASMS (Reported) Diltiazem HCl (Cartia Xt) 120 MG CAP.ER.24H 1 CAP PO DAILY CARDIAC (Reported) Docusate Sodium (Colace) 100 MG CAPSULE 1 CAP PO BID STOOL SOFTENER (Reported ) Enoxaparin Sodium (Lovenox) 80 MG/0.8 ML SYRINGE 80 MG SC BID DVT 80 mg BID until INR is therapeutic then discontinue Check INR daily until therapeutic Gabapentin 300 MG CAPSULE 1 CAP PO PRN PAIN (Reported) Glimepiride 2 MG TABLET 1.5 TAB PO DAILY DM (Reported) Hydrocodone/Acetaminophen (Hydrocodon-Acetaminophen 5-325) 5 MG-325 MG TABLET 1 TAB PO Q4 HRS NEEDED PRN PAIN SCALE 4-6 (MODERATE) Hydrocodone/Acetaminophen (Hydrocodon-Acetaminophen 5-325) 5 MG-325 MG TABLET 2 TAB PO Q4 HRS NEEDED PRN PAIN SCALE 7-10 (SEVERE) Iron Carb,Gl/FA/B12/C/Docusate (Ferralet 90 Tablet) 90 MG-1 MG-12 MCG-120 MG-50 MG TABLET 1 TAB PO DAILY SUPPLEMENT (Reported) Lidocaine (Lidoderm) 5 % ADH..PATCH 1 PAT EXT DAILY PRN Post-op pain Losartan/Hydrochlorothiazide (Losartan-Hctz 100-25 MG Tab) 100 MG-25 MG TABLET 1 TAB PO DAILY HTN (Reported) Magnesium Oxide (Magnesium) (Unknown Strength) CAPSULE (Unknown Dose) PO TID SUPPLEMENT (Reported) Melatonin 10 MG CAPSULE 1 CAP PO QPM SLEEP (Reported) Montelukast Sodium (Singulair) 10 MG TABLET 1 TAB PO DAILY ALLERGIES ( Reported) Morphine Sulfate (Morphine Sulfate ER) 15 MG TABLET.ER 15 MG PO BID Post-op pain Multiple Vitamin (Multivitamins) 1 EACH TABLET 1 TAB PO DAILY SUPPLEMENT ( Reported) Multivit-Min/FA/Lutein/Zeaxant (Macular Vitamin Tablet) 500 MCG-5 MG-1 MG TABLET 1 TAB PO DAILY SUPPLEMENT (Reported) Omeprazole 40 MG CAPSULE.DR 1 CAP PO DAILY AC GERD (Reported) Polyethylene Glycol 3350 (Miralax) 17 GRAM/DOSE POWDER 17 GM PO DAILY opiod constipation Sitagliptin Phosphate (Januvia) 100 MG TABLET 1 TAB PO DAILY DM (Reported) Tobramycin (Tobrex) 0.3 % DROPS 2 GTT OPH TID EYE (Reported) Warfarin Sodium (Coumadin) 10 MG TABLET 1 TAB PO DAILY DVT Assessment/Plan Consult Acknowledgment - Thank you for your consult request. Attending MD Review Statement Attending Statement Attending MD Statement: examined this patient, discuss w/resident/PA/INTERNET RETAILER, agreed w/resident/PA/INTERNET RETAILER, reviewed images, amended to note Attending Assessment/Plan: 71 yo F with h/o asthma, COPD, HTN, T2DM, TIA, GERD, PVD, lung nodules, OA, previous MRSA pneumonia, chronic back pain s/p fusion (2012), s/p lumbar laminectomy for severe spinal stenosis on October 07, 2017 hospital course complicated by prolonged surgery with intra-operative blood loss requiring PRBC, bradycardia with junctional rhythm, hypotension requiring pressors, respiratory failure s/p intubation and RUE DVT now on coumadin with a subtherapeutic INR. She was discharged to [facility] at [facility] on October 22. While at the facility she continued to have serosanguinous discharge that then became purulent, hence she is not admitted to the Surgical service with a plan for wound irrigation in the OR. Patient currently denies chest pain, palpitations or lightheadedness. She has baseline chronic dyspnea which is unchanged. She is able to ambulate with a walker but needs assistance to get into and out of bed. She has seasonal allergies and is supposed to get allergy shots every 2 weeks but she has not received any over past 3 weeks. She feels her allergy symptoms are resurfacing. She has worsening LE edema mostly dependent edema. She was on HCTZ which was not given to her in the hospital. Her back pain is adequately controlled with vicodin and MSER. She has severe constipation and needs laxatives to help with bowel movements. She reports right flank pain since her surgery, probably muscular. And she also has mild dysphagia / soreness to her throat probably 2/2 intubation. She denies choking or aspirating on food. Vitals stable, BP 161/70 --> 144/60. Exam as above. Labs: WBC 12.1, H/H 11.2/34, Plt 462, INR 1.86, glucose 126, trop neg. CXR: no active disease. EKG: sinus rhythm, inferior Q waves (old), Qtc 409. Echo (2015): EF 65-70%, diffuse sclerosis of aortic valve. Assessment and plan: 1. Post op wound infection 2. S/p lumbar laminectomy for spinal stenosis with a complicated hospital course 3. Recent RUE DVT in the setting of PICC line on coumadin 4. Subtherapeutic INR 5. Chronic leukocytosis ?hematologic disorder 6. Chronic back pain on opiate therapy 7. Essential hypetension 8. Type 2 diabetes with neuropathy 9. H/o seasonal allergies and COPD - Wound management as per Surgical team. - NPO after midnight for OR in AM - Vitamin K 5 mg PO given - Goal INR to be < 1.5 for surgery - Recheck INR in AM - Type and crossmatch - If INR still elevated in AM, consider FFP for reversal - Risk and benefits of reversal discussed with patient and she is in agreement - Post- procedure, plan to resume coumadin with lovenox or IV heparin bridging - Patient was on Plavix for h/o TIA but this was discontinued upon discharge as she was on coumadin - Pain control with MS contin, vicodin and IV morphine as needed - Resume cardizem, losartan, HCTZ, singulair, symbicort, omeprazole, gabapentin and TRC nebs - Treat constipation with Senna S and miralax - Add saline nasal spray and artifical tears as needed - Diabetes ct accucheks, check HbA1c, hold januvia and glimepiride, will start on insulin NPO SS. - PT therapy DVT ppx Alps. Full code.
[2017-10-28 22:20] VITALS: BP 144/60
[2017-10-29] MEDS ORDERED: LOSARTAN-HCTZ1 EAC2 PO (01:14)
[2017-10-29 05:46] VITALS: BP 138/60
[2017-10-29 07:47] LABS: ABSOLUTE BASOPHIL COUNT 0 /CUMM (0.0-0.2); ABSOLUTE EOSINOPHIL COUNT 0.3 /CUMM (0.0-0.7); ABSOLUTE GRANULOCYTE CT 6.2 /CUMM (1.4-6.5); ABSOLUTE LYMPH COUNT 1.4 /CUMM (1.2-3.4); ABSOLUTE MONOCYTE COUNT 1.1 /CUMM (0.10-0.60); BASOPHIL % 0.2 % (0.0-2.0); EOSINOPHIL % 3.4 % (0-5); GRANULOCYTE % 68.8 % (42.2-75.2); HEMATOCRIT 29.2 % (37-47); MEAN CORPUSCULAR HGB 29.2 PG (27.0-31.0); MEAN CORPUSCULAR HGB CONC 32.9 G/DL (33.0-37.0); MEAN CORPUSCULAR VOLUME 88.6 FL (81.0-99.0); MEAN PLATELET VOLUME 7.2 FL (7.4-10.4); PLATELET COUNT 392 /CUMM (130-400); RBC DISTRIBUTION WIDTH 15.1 % (11.5-14.5)
[2017-10-29 08:20] LABS: PT 16.8 SEC (9.4-12.5); PTT 30 SEC (25-37)
[2017-10-29 09:57] VITALS: BP 172/58
--- NOTE | 2017-10-29 10:31 | PN- Medicine Consult ---
Dimple Weller 10/29/17 1031: Assessment/PlanMedical Consult Assessment/Plan Assessment: This is a 71 year old female with past medical history significant for COPD not on home oxygen, asthma, MRSA pneumonia, [id number]-[id number] diabetes mellitus, hypertension, hyperlipidemia, TIA, insomnia, GERD, osteoarthritis, PVD, carpal tunnel syndrome, bilateral lung nodules, occluded right ICA, and chronic back pain status post spinal fusion (2012) and lumbar fusion 10/07/2017 complicated with bradycardia, new onset of junctional rhythm resolved, respiratory distress, postop hemorrhagic anemia and right upper extremity DVT at site of PICC line ( that was placed for extreme difficulty finding a peripheral line) on warfarin. The patient was discharged on 10/22/2017 to [facility]. Patient was admitted under surgical services for intraoperative irrigation debridement. Medical team has been consulted for chronic medical issues and to guide presurgical INR reversal. Problem list: Post op wound infection awaiting intraoperative irrigation debridement S/p lumbar laminectomy for spinal stenosis with a complicated hospital course Recent RUE DVT in the setting of PICC line on warfarin Subtherapeutic INR Chronic leukocytosis ?hematologic disorder Chronic back pain on opiate therapy Essential hypetension Type 2 diabetes with neuropathy H/o seasonal allergies and COPD The case was discussed with attending Dr. Malone, please refer to his dental for further recommendations. Plan: Recommendations: - Wound management as per Surgical team. -S/p Vitamin K 5 mg PO yesterday and 1 unit FFP this am -Recheck INR 12:00 - Per surgery Goal INR to be < 1.2 for surgery - Post- procedure, consider resuming warfarin with lovenox or IV heparin bridging -Restarted fluticasene and nasal saline spray(diagnosed on March level and pharmacy) - Pain control as per surgery -Continue with cardizem, losartan, HCTZ, singulair, symbicort, omeprazole, gabapentin and TRC nebs -Elevated blood pressure likely secondary to pain, monitor blood pressure closely, if not improved consider increasing antihypertensive dose. -Continue with Bowel regimen - Monitor blood glucose levels, continue insulin sliding scale -consider checking hemoglobin A1c - PT evaluation and treatment - Patient was on Plavix for h/o TIA but this was discontinued upon discharge as she was on coumadin Problem List: 1. Wound infection Subjective Subjective: The patient was seen and examined. She reports mild pain at the site of her wound. She also complains of nasal congestion, she is on Dymista as an outpatient for her seasonal allergies; would like to be restarted on it. Denies any headache, dizziness, lightheadedness, nausea, vomiting, chest pain, shortness of breath, abdominal pain. Status post 1 unit FFP. hypertensive, otherwise VS. Review of Systems Constitutional: Reports: no symptoms. Objective Last 24 Hrs of Vital Signs/I&O Vital Signs Date Time Temp Pulse Resp B/P B/P Pulse O2 O2 Flow FiO2 Mean Ox Delivery Rate 10/29 1325 99.6 84 18 164/90 97 Room Air 10/29 1035 Room Air 10/29 0957 98.5 79 18 172/58 97 Room Air 10/29 0834 182/80 10/29 0800 98 Room Air 10/29 0546 98.3 82 18 138/60 97 Room Air 10/28 2220 98.3 79 18 144/60 97 Room Air 10/28 1933 82 18 161/70 98 Room Air Intake & Output 10/29 1600 10/29 0800 10/29 0000 Intake Total 841 Output Total 700 Balance 141 Intake, Blood 1 Product Intake, IV 840 Intake, Oral 0 Number 1 Bowel Movements Output, Urine 700 Patient 187 lb Weight Weight Reported by Patient Measurement Method Physical Exam General Appearance: alert, awake Head: atraumatic Other Physical Findings: Ears, Nose, Throat: normal pharynx, normal ENT inspection, hearing grossly normal Neck: normal inspection, supple, full range of motion Respiratory: normal breath sounds, chest non-tender Cardiovascular: regular rate/rhythm, edema Gastrointestinal: normal bowel sounds, soft, non-tender Back: indurated, erythematous and dehisced midline lumber surgical incision with serosanguineous fluid draining from the wound. 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 Current Medications: Current Medications Sig/Clementine Start time Last Medication Dose Route Stop Time Status Admin Acetaminophen 1,000 MG .STK-MED ONE 10/29 1337 DC IV 10/29 1338 Acetaminophen 650 MG Q4P PRN 10/28 1900 AC PO Albuterol Sulfate 2 PUF Q6P PRN 10/28 1815 AC INH Artificial Tears 2 GTT 4 TIMES/DAY 10/28 2100 10/29 OPH 2035 Budesonide/ 2 PUF BID 10/28 2100 10/29 Formoterol Fumarate INH 203 Dextrose/Sodium 1,000 ML Q10H 10/29 204 AC 10/30 Chloride IV 0602 Dextrose/Sodium 1,000 ML Q10H 10/29 0000 DC 10/29 Chloride IV 10/29 0959 0036 Diltiazem HCl 120 MG DAILY 10/29 0900 10/29 PO 0832 Fentanyl Citrate 250 MCG .STK-MED ONE 10/29 1337 DC IM 10/29 1338 Fluticasone 2 SPRAY DAILY 10/29 1039 10/29 Propionate KIM 1151 Hydrochlorothiazide 25 MG DAILY 10/29 0900 10/29 PO 0834 Hydrocodone Bitart/ 2 TAB Q4-6 PRN PRN 10/30 0245 10/30 Acetaminophen PO 0603 Hydrocodone Bitart/ 1 TAB Q4P PRN 10/29 0130 10/30 Acetaminophen PO 0215 Hydromorphone HCl 2 MG .STK-MED ONE 10/29 1811 DC IM 10/29 1812 Hydromorphone HCl 2 MG .STK-MED ONE 10/29 1759 VT IM 10/29 1800 Hydromorphone HCl 2 MG .STK-MED ONE 10/29 1739 VT IM 10/29 1740 Hydromorphone HCl 2 MG .STK-MED ONE 10/29 1731 DC IM 10/29 1732 Hydromorphone HCl 2 MG .STK-MED ONE 10/29 1336 DC IM 10/29 1337 Insulin Human Regular 6 UNITS .STK-MED ONE 10/29 2345 DC IV 10/29 2346 Insulin Human Regular 6 UNITS .STK-MED ONE 10/29 202 DC IV 10/29 202 Insulin Human Regular 0 Q6 10/28 2359 10/29 SC 2351 Loratadine 10 MG DAILY 10/29 0900 10/29 PO 0833 Losartan Potassium 100 MG DAILY 10/29 0900 10/29 PO 0834 Meperidine HCl 50 MG .STK-MED ONE 10/29 1750 DC IM 10/29 1751 Midazolam HCl 2 MG .STK-MED ONE 10/29 1337 DC IM 10/29 1338 Montelukast Sodium 10 MG 1800 10/29 1800 AC 10/29 PO 2034 Montelukast Sodium 10 MG DAILY 10/29 0900 DC PO Morphine Sulfate 4 MG Q3P PRN 10/30 0245 AC 10/30 IV 0449 Morphine Sulfate 2 MG Q2P PRN 10/29 0130 DC 10/30 IV 0208 Morphine Sulfate 15 MG BID 10/28 2100 AC 10/29 PO 2036 Omeprazole 40 MG DAILY AC 10/29 0700 AC 10/30 PO 0602 Ondansetron HCl 4 MG .STK-MED ONE 10/29 1338 DC IM 10/29 1339 Ondansetron HCl 4 MG Q6P PRN 10/28 1900 AC IV Polyethylene Glycol 17 GM DAILY 10/28 2009 AC 10/29 PO 0032 Senna/Docusate Sodium 1 TAB BID PRN 10/28 2014 AC PO Sodium Chloride 2 SPRAY Q4P PRN 10/29 1045 AC KIM Sodium Chloride 2 SPRAY Q4P PRN 10/29 1999 DC 10/29 KIM 1042 Results Last 24 Hrs Lab/Chucky Results: . Liv Malone 10/29/17 1623: Attending MD Review Statement Attending Sign Off Attending Cosign Statement: I have: examined this patient, reviewed [employer] EMR data, discussd w/resident/PA/ ORTHO ASSISTANT, discussed mgmt plan w/anna marie, discussed mgmt plan w/pt, agreed w/resident/PA/ ORTHO ASSISTANT. Other Findings: given 1 U of FFP this am and INR post that was 1.29 . WIll resume anticoagulation post surgery after discussion with surgery. d/w pt the care plan.
[2017-10-29 13:01] LABS: PT 14.1 SEC (9.4-12.5)
[2017-10-29 13:25] VITALS: BP 164/90
--- NOTE | 2017-10-29 20:06 | PN- Neurosurgical ---
Subjective Subjective: POSTOP CHECK Patient reports back soreness. She denies appetite. She nausea, vomiting, fever or chills. She offers no other complaints. Objective Vital Signs and I&Os Vital Signs Date Time Temp Pulse Resp B/P B/P Pulse O2 O2 Flow FiO2 Mean Ox Delivery Rate 10/29 1325 99.6 84 18 164/90 97 Room Air 10/29 1035 Room Air 10/29 0957 98.5 79 18 172/58 97 Room Air 10/29 0834 182/80 10/29 0800 98 Room Air 10/29 0546 98.3 82 18 138/60 97 Room Air 10/28 2220 98.3 79 18 144/60 97 Room Air Intake & Output 10/29 1600 10/29 0800 10/29 0000 10/28 1600 10/28 0800 10/28 0000 Intake Total 841 Output Total 700 Balance 141 Intake, Blood 1 Product Intake, IV 840 Intake, Oral 0 Number 1 Bowel Movements Output, Urine 700 Patient 187 lb Weight Weight Reported by Patient Measurement Method Physical Exam: Gen - drowsy in bed in nad Cardiac - S1S2 Lungs - CTAB - day in place Back - midline dressing c/d/i kwame x2 with 25 cc/25 cc sanguineous drainage, appropriately tenderness zachary-incisionally Ext - moves all extremities, motor an sensory intact, alps in place, no edema or calf tenderness Current Medications: Current Medications Sig/Clementine Start time Last Medication Dose Route Stop Time Status Admin Acetaminophen 650 MG Q4P PRN 10/28 1900 AC PO Albuterol Sulfate 2 PUF Q6P PRN 10/28 1815 AC INH Artificial Tears 2 GTT 4 TIMES/DAY 10/28 2100 AC 10/29 OPH 2035 Budesonide/ 2 PUF BID 10/28 2100 AC 10/29 Formoterol Fumarate INH 2035 Dextrose/Sodium 1,000 ML Q10H 10/29 2045 AC Chloride IV Dextrose/Sodium 1,000 ML Q10H 10/29 0000 DC 10/29 Chloride IV 10/29 0959 0036 Diltiazem HCl 120 MG DAILY 10/29 0900 AC 10/29 PO 0832 Fluticasone 2 SPRAY DAILY 10/29 1039 AC 10/29 Propionate KIM 1151 Hydrochlorothiazide 25 MG DAILY 10/29 0900 AC 10/29 PO 0834 Hydrocodone Bitart/ 1 TAB Q4P PRN 10/29 0130 AC Acetaminophen PO Insulin Human Regular 4 UNITS .STK-MED ONE 10/29 0605 DC IV 10/29 0606 Insulin Human Regular 4 UNITS .STK-MED ONE 10/29 0020 DC IV 10/29 0021 Insulin Human Regular 0 Q6 10/28 2359 AC 10/29 SC 203 Insulin Human Regular 0 TIDAC/HS 10/28 2100 DC SC 10/28 235 Loratadine 10 MG DAILY 10/29 0900 AC 10/29 PO 0833 Losartan Potassium 25 MG DAILY 10/29 0900 CAN PO Losartan Potassium 100 MG DAILY 10/29 0900 AC 10/29 PO 0834 Montelukast Sodium 10 MG 1800 10/29 1800 AC 10/29 PO 203 Montelukast Sodium 10 MG DAILY 10/29 0900 DC PO Morphine Sulfate 2 MG Q2P PRN 10/29 0130 AC IV Morphine Sulfate 15 MG BID 10/28 2100 AC 10/29 PO 203 Morphine Sulfate 0 .STK-MED ONE 10/28 2057 DC .ROUTE Morphine Sulfate 2 MG Q2P PRN 10/28 1945 DC 10/29 IV 0037 Morphine Sulfate 4 MG Q3P PRN 10/28 1945 DC 10/28 IV 2122 Omeprazole 40 MG DAILY AC 10/29 0700 AC 10/29 PO 0609 Ondansetron HCl 4 MG Q6P PRN 10/28 1900 AC IV Polyethylene Glycol 17 GM DAILY 10/28 2009 AC 10/29 PO 0032 Senna/Docusate Sodium 1 TAB BID PRN 10/28 2015 AC PO Sodium Chloride 2 SPRAY Q4P PRN 10/29 1045 AC KIM Sodium Chloride 2 SPRAY Q4P PRN 10/29 1999 DC 10/29 KIM 1042 Results Last 48 Hours of Labs: Laboratory Tests 10/29 10/29 1250 0723 Chemistry C-Reactive Prot, Quant (<1.0 mg/dL) 6.2 H C-React Prot High Sens (1.0 - 3.0 mg/L) > 15.0 H Coagulation PT (9.4 - 12.5 SEC) 14.1 H 16.8 H INR (0.90 - 1.19) 1.29 H 1.53 H APTT (25 - 37 SEC) 30 Hematology CBC w Diff NO MAN DIFF REQ WBC (4.8 - 10.8 /CUMM) 9.0 RBC (4.20 - 5.40 /CUMM) 3.30 L Hgb (12.0 - 16.0 G/DL) 9.6 L Hct (37 - 47 %) 29.2 L MCV (81.0 - 99.0 FL) 88.6 MCH (27.0 - 31.0 PG) 29.2 MCHC (33.0 - 37.0 G/DL) 32.9 L RDW (11.5 - 14.5 %) 15.1 H Plt Count (130 - 400 /CUMM) 392 MPV (7.4 - 10.4 FL) 7.2 L Gran % (42.2 - 75.2 %) 68.8 Lymphocytes % (20.5 - 51.1 %) 15.9 L Monocytes % (1.7 - 9.3 %) 11.7 H Eosinophils % (0 - 5 %) 3.4 Basophils % (0.0 - 2.0 %) 0.2 Absolute Granulocytes (1.4 - 6.5 /CUMM) 6.2 Absolute Lymphocytes (1.2 - 3.4 /CUMM) 1.4 Absolute Monocytes (0.10 - 0.60 /CUMM) 1.1 H Absolute Eosinophils (0.0 - 0.7 /CUMM) 0.3 Absolute Basophils (0.0 - 0.2 /CUMM) 0 ESR Westergren (0 - 20 MM) 111 H 16 1625 Chemistry Sodium (137 - 145 mmol/L) 138 Potassium (3.5 - 5.1 mmol/L) 4.7 Chloride (98 - 107 mmol/L) 98 Carbon Dioxide (22 - 30 mmol/L) 29 Anion Gap (5 - 16) 11 BUN (7 - 17 mg/dL) 13 Creatinine (0.5 - 1.0 mg/dL) 0.7 Estimated GFR (>60 ml/min) > 60 BUN/Creatinine Ratio (7 - 25 %) 18.6 Glucose (65 - 99 mg/dL) 126 H Calcium (8.4 - 10.2 mg/dL) 9.5 Total Bilirubin (0.2 - 1.3 mg/dL) 0.5 AST (14 - 36 U/L) 29 ALT (9 - 52 U/L) 26 Alkaline Phosphatase (<127 U/L) 149 H Troponin I (< 0.11 ng/ml) < 0.01 Total Protein (6.3 - 8.2 g/dL) 6.7 Albumin (3.5 - 5.0 g/dL) 3.9 Globulin (1.9 - 4.2 gm/dL) 2.8 Albumin/Globulin Ratio (1.1 - 2.2 %) 1.4 Coagulation PT (9.4 - 12.5 SEC) 20.4 H INR (0.90 - 1.19) 1.86 H Hematology CBC w Diff NO MAN DIFF REQ WBC (4.8 - 10.8 /CUMM) 12.1 H RBC (4.20 - 5.40 /CUMM) 3.87 L Hgb (12.0 - 16.0 G/DL) 11.2 L Hct (37 - 47 %) 34.0 L MCV (81.0 - 99.0 FL) 87.9 MCH (27.0 - 31.0 PG) 29.0 MCHC (33.0 - 37.0 G/DL) 33.1 RDW (11.5 - 14.5 %) 14.8 H Plt Count (130 - 400 /CUMM) 462 H MPV (7.4 - 10.4 FL) 7.3 L Gran % (42.2 - 75.2 %) 72.8 Lymphocytes % (20.5 - 51.1 %) 14.3 L Monocytes % (1.7 - 9.3 %) 9.1 Eosinophils % (0 - 5 %) 3.6 Basophils % (0.0 - 2.0 %) 0.2 Absolute Granulocytes (1.4 - 6.5 /CUMM) 8.8 H Absolute Lymphocytes (1.2 - 3.4 /CUMM) 1.7 Absolute Monocytes (0.10 - 0.60 /CUMM) 1.1 H Absolute Eosinophils (0.0 - 0.7 /CUMM) 0.4 Absolute Basophils (0.0 - 0.2 /CUMM) 0 Assessment/Plan Assessment/Plan 71 F with a recent h/o of lumbar fusion on 10/07/2017 and a right upper extremity DVT, who was admitted with a surgical site infection, now s/p I&D of lumbar surgical site drainage and dehisense Advance to ada diet in am Keep NPO on IVF overnight Pain meds prn KWAME x2 to bulb suction Keep day in place ISS on board DVT ppx - alps Resume home meds Hold coumadin in setting of recent surgery TRC, encourage IS PT eval in am Strict I&Os Follow up OR cultures Appreciate medicine involvement Antibiotics and pharm anticoag plan pending discussion with Dr. Najera Core Measures Venous Thromboembolism VTE Risk Factors Age>40 No Mechanical VTE Prophylaxis d/t N/A MechProphylax Ordered No VTE Pharm Prophylaxis d/t Surgical Contraindication
[2017-10-29 21:26] VITALS: BP 162/60
[2017-10-30 05:45] VITALS: BP 140/72
--- NOTE | 2017-10-30 08:15 | PN- Neurosurgical ---
Chantell Ferraroa 10/30/17 0807: Subjective Subjective: 71 y/o female S/P I+D lumbar wound with 2 drains placed 10/29 10/07 -instrumented lumbar fusion lying in bed, pain with movement, comfortable lying in place drains with little output overnight. no fevers or chills Objective Vital Signs and I&Os Vital Signs Date Time Temp Pulse Resp B/P B/P Pulse O2 O2 Flow FiO2 Mean Ox Delivery Rate 10/30 0545 97.9 84 22 140/72 99 Room Air 10/30 0000 99 Nasal 3.0L Cannula 10/29 2126 97.7 72 20 162/60 100 Room Air 10/29 1325 99.6 84 18 164/90 97 Room Air 10/29 1035 Room Air 10/29 0957 98.5 79 18 172/58 97 Room Air 10/29 0834 182/80 Intake & Output 10/30 1600 10/30 0800 10/30 0000 10/29 1600 10/29 0800 10/29 0000 Intake Total 920 200 841 Output Total 1020 165 700 Balance -100 35 141 Intake, Blood 1 Product Intake, IV 800 200 840 Intake, Oral 120 0 Number 1 Bowel Movements Output, 120 40 Drainage Output, Urine 900 125 700 Patient 187 lb Weight Weight Reported by Patient Measurement Method chest- CTA symmetric heart -RRR without MRG Abd - rounded without distention NT, pos BS passing gas lumbar wound - dry, drains this am with few cc of serosang fluid Assessment/Plan Assessment/Plan S/P I+D after lumbar wound dehisence day in place with IVF continue to follow drain outputs DVT proph -ALPs currently not on ABX RUE DVT repeat US advance diet this am awaiting results of OR culture and consult with ID Admission Lab Results I reviewed the following labs: Laboratory Tests 10/29 1250 Coagulation PT (9.4 - 12.5 SEC) 14.1 H INR (0.90 - 1.19) 1.29 H Core Measures Venous Thromboembolism VTE Risk Factors Age>40 No Mechanical VTE Prophylaxis d/t N/A MechProphylax Ordered No VTE Pharm Prophylaxis d/t Surgical Contraindication Kamilla Peraza 10/30/17 1103: Assessment/Plan Assessment/Plan rounded on the patient himself this morning, and reported the following to the floor PA: order iv vanco call for ID consult get picc line for access (left arm, since right arm has known provoked dvt s/p picc line / removal) hold coumadin until thursday night. no hep sc or alternative coagulants until then (ALPS ok) nutrition consult
--- NOTE | 2017-10-30 08:33 | PN- Medicine Consult ---
Dimple Weller 10/30/17 0833: Assessment/PlanMedical Consult Assessment/Plan Assessment: This is a 71 year old female with past medical history significant for COPD not on home oxygen, asthma, MRSA pneumonia, cii-[id number]-[id number] diabetes mellitus, hypertension, hyperlipidemia, TIA, insomnia, GERD, osteoarthritis, PVD, carpal tunnel syndrome, bilateral lung nodules, occluded right ICA, and chronic back pain status post spinal fusion (2012) and lumbar fusion 10/07/2017 complicated with bradycardia, new onset of junctional rhythm resolved, respiratory distress, postop hemorrhagic anemia and right upper extremity DVT at site of PICC line ( that was placed for extreme difficulty finding a peripheral line) on warfarin. The patient was discharged on 10/22/2017 to [facility]. Patient was admitted under surgical service on 10/28/17 for intraoperative irrigation and debridement( performed on 10/29/17). Problem list: Post op wound infection s/p intraoperative irrigation debridement (10/29/17); cultures + for Gr neg rods S/p lumbar laminectomy for spinal stenosis with a complicated hospital course Recent RUE DVT in the setting of PICC line on warfarin s/p INR reversal pre op (1 UFFP, vit K). Chronic leukocytosis ?hematologic disorder Chronic back pain on opiate therapy Essential hypetension Type 2 diabetes with neuropathy H/o seasonal allergies and COPD Plan: -Wound management as per Surgical team. -AB therapy as per ID recs -S/p Vitamin K 5 mg PO and 1 unit FFP this am pre-op -AC post op as per surgery - Pain control as per surgery -Continue with cardizem, losartan, HCTZ, singulair, symbicort, omeprazole, gabapentin and TRC nebs -Continue with Bowel regimen -Monitor blood glucose levels, continue insulin sliding scale -Consider checking hemoglobin A1c -Follow up today's labs - PT evaluation and treatment Problem List: 1. Wound infection Subjective Subjective: The patient was seen and examined. She is s/p intraoperative irrigation and debridement(yesterday), reports back pain. Denies any headache, dizziness, lightheadedness, nausea, vomiting, chest pain, shortness of breath, abdominal pain. OR cultures positive for gram negative rods. Afebrile. Review of Systems Constitutional: Denies: see HPI. Objective Last 24 Hrs of Vital Signs/I&O Vital Signs Date Time Temp Pulse Resp B/P B/P Pulse O2 O2 Flow FiO2 Mean Ox Delivery Rate 10/30 0944 84 140/72 10/30 0800 97 Nasal 2.0L Cannula 10/30 0545 97.9 84 22 140/72 99 Room Air 10/30 0000 99 Nasal 3.0L Cannula 10/296 97.7 72 20 162/60 100 Room Air 10/29 1325 99.6 84 18 164/90 97 Room Air Intake & Output 10/30 1600 10/30 0800 10/30 0000 Intake Total 920 200 Output Total 1020 165 Balance -100 35 Intake, IV 800 200 Intake, Oral 120 Output, 120 40 Drainage Output, Urine 900 125 Physical Exam General Appearance: no apparent distress, alert, awake Other Physical Findings: Head: atraumatic Ears, Nose, Throat: normal pharynx, normal ENT inspection, hearing grossly normal Neck: normal inspection, supple, full range of motion Respiratory: normal breath sounds, chest non-tender Cardiovascular: regular rate/rhythm, edema Gastrointestinal: normal bowel sounds, soft, non-tender Back: Dressing intact, [address] Extremities: normal inspection, normal capillary refill, normal range of motion, no edema Neurologic/Psych: no motor/sensory deficits, awake, alert, oriented x 3, support representative II- XII nml as tested Current Medications: reviewed Results Last 24 Hrs Lab/Chucky Results: reviewed Liv Malone 10/30/17 1649: Attending MD Review Statement Attending Sign Off Attending Cosign Statement: I have: examined this patient, reviewed aval EMR data, discussd w/resident/PA/ ASPHALT PATCHER, discussed mgmt plan w/pt, agreed w/resident/PA/ASPHALT PATCHER. Other Findings: D/w surgical PA- hold off on chemical dvt proph till thursday. On ALPS.
--- NOTE | 2017-10-30 11:35 | Cons- Infect Disease ---
General Information and HPI Consulting Request Date of Consult: 10/30/17 Requested By: Dania HARRSI,Ray Rose Reason for Consult: Surgical site infection Source of Information: patient, old records History of Present Illness: This is a 71-year-old woman with a history of COPD, MRSA pneumonia, diabetes, hypertension osteoarthritis, with chronic back pain, status post spinal fusion 4 years prior to admission, status post decompressive lumbar laminectomy L2-S1, with insertion of a cage and pedicle screws, with removal of the old screws, 3 weeks prior to admission for spinal stenosis, with Vancomycin prophylaxis, which was continued for 6 days postop, with removal of the drains on postop Day 4, with her intraoperative course complicated by bradycardia/junctional rhythm and hypotension and her postop course complicated by anemia, felt to be secondary to intraoperative blood loss, requiring 6 units of blood, a right upper extremity DVT in the setting of a PICC, which had been placed one day prior to admission, a persistent leukocytosis, which had nearly resolved prior to discharge, and persistent back pain, discharged on Coumadin and Lovenox on postop Day 15 to a rehab facility, begun on Keflex 3 days prior to admission because of drainage from the incision, admitted on October 28 in anticipation of surgery because of persistent drainage from the incision and continued back pain, but with no fevers or chills. On admission she was afebrile. Laboratory data revealed a white blood cell count of 12,000, BUN/creatinine 13 and 0.7, alkaline phosphatase 149, INR 1.86. Chest x-ray was negative. She was followed off antibiotics and was taken to the OR on October 29 for an I&D of her wound, with placement of 2 drains. She has remained afebrile overnight. At present she complains of back pain. Allergies/Medications Allergies: Coded Allergies: Sulfa (Sulfonamide Antibiotics) (Intermediate, SKIN TURNS PURPLE/HOT 10/28/17) Penicillins (Mild, ITCHING 10/28/17) aspirin (HX GASTRITIS 10/28/17) ASA->BLEEDING atorvastatin (PER PT MED LIST 10/28/17) prednisone (Severe, VISION CHANGES 10/28/17) Uncoded Allergies: ENVIRONMENTAL (UNKNOWN 07/20/13) MULTIPLE ANTIBIOTICS (UNKNOWN 07/20/13) Home Med List: Albuterol Sulfate (Proair Hfa) 90 MCG HFA.AER.AD 2 PUF INH PRN ASTHMA/ ALLERGIES (Reported) Ascorbate Calcium (Vitamin C) 500 MG TABLET 1 TAB PO DAILY SUPPLEMENT ( Reported) Azelastine/Fluticasone (Dymista Nasal Mallory) 137 MCG-50 MCG/SPRAY SPRAY.PUMP 1 SPRAY NASB PRN ALLERGIES (Reported) Budesonide/Formoterol Fumarate (Symbicort 160-4.5 Mcg Inhaler) 160 MCG-4.5 MCG/ ACTUATION HFA.AER.AD 2 PUFF INH BID ASTHMA/ALLERGIES (Reported) Cetirizine HCl (Zyrtec) 10 MG CAPSULE 1 CAP PO DAILY ALLERGIES (Reported) Cholecalciferol (Vitamin D3) (Vitamin D) 1,000 UNIT TABLET 1 TAB PO DAILY SUPPLEMENT (Reported) Cyclobenzaprine HCl 5 MG TABLET 1 TAB PO QHS MUSCLE SPASMS (Reported) Diltiazem HCl (Cartia Xt) 120 MG CAP.ER.24H 1 CAP PO DAILY CARDIAC (Reported) Docusate Sodium (Colace) 100 MG CAPSULE 1 CAP PO BID STOOL SOFTENER (Reported ) Enoxaparin Sodium (Lovenox) 80 MG/0.8 ML SYRINGE 80 MG SC BID DVT 80 mg BID until INR is therapeutic then discontinue Check INR daily until therapeutic Gabapentin 300 MG CAPSULE 1 CAP PO PRN PAIN (Reported) Glimepiride 2 MG TABLET 1.5 TAB PO DAILY DM (Reported) Hydrocodone/Acetaminophen (Hydrocodon-Acetaminophen 5-325) 5 MG-325 MG TABLET 1 TAB PO Q4 HRS NEEDED PRN PAIN SCALE 4-6 (MODERATE) Hydrocodone/Acetaminophen (Hydrocodon-Acetaminophen 5-325) 5 MG-325 MG TABLET 2 TAB PO Q4 HRS NEEDED PRN PAIN SCALE 7-10 (SEVERE) Iron Carb,Gl/FA/B12/C/Docusate (Ferralet 90 Tablet) 90 MG-1 MG-12 MCG-120 MG-50 MG TABLET 1 TAB PO DAILY SUPPLEMENT (Reported) Lidocaine (Lidoderm) 5 % ADH..PATCH 1 PAT EXT DAILY PRN Post-op pain Losartan/Hydrochlorothiazide (Losartan-Hctz 100-25 MG Tab) 100 MG-25 MG TABLET 1 TAB PO DAILY HTN (Reported) Magnesium Oxide (Magnesium) (Unknown Strength) CAPSULE (Unknown Dose) PO TID SUPPLEMENT (Reported) Melatonin 10 MG CAPSULE 1 CAP PO QPM SLEEP (Reported) Montelukast Sodium (Singulair) 10 MG TABLET 1 TAB PO DAILY ALLERGIES ( Reported) Morphine Sulfate (Morphine Sulfate ER) 15 MG TABLET.ER 15 MG PO BID Post-op pain Multiple Vitamin (Multivitamins) 1 EACH TABLET 1 TAB PO DAILY SUPPLEMENT ( Reported) Multivit-Min/FA/Lutein/Zeaxant (Macular Vitamin Tablet) 500 MCG-5 MG-1 MG TABLET 1 TAB PO DAILY SUPPLEMENT (Reported) Omeprazole 40 MG CAPSULE.DR 1 CAP PO DAILY AC GERD (Reported) Polyethylene Glycol 3350 (Miralax) 17 GRAM/DOSE POWDER 17 GM PO DAILY opiod constipation Sitagliptin Phosphate (Januvia) 100 MG TABLET 1 TAB PO DAILY DM (Reported) Tobramycin (Tobrex) 0.3 % DROPS 2 GTT OPH TID EYE (Reported) Warfarin Sodium (Coumadin) 10 MG TABLET 1 TAB PO DAILY DVT Past History Travel History Traveled to [place] past 21 day No Medical History Neurological: TIA EENT: NONE Cardiovascular: hypertension, hyperlipidemia, CAROTID ARTERY STENOSIS Respiratory: asthma, bronchitis, COPD, MRSA PNA Gastrointestinal: GERD Hepatic: STEATOSIS OF LIVER Renal: NONE Musculoskeletal: osteoarthritis, chronic back pain s/p spinal fusion; OA CARPAL TUNNEL Psychiatric: NONE Endocrine: NIDDM Blood Disorders: NONE Cancer(s): NONE 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 History of MRSA: Yes History of VRE: Yes History of CDIFF: No Isolation History: Contact Pneumonia Vaccine: 07/30/13 Influenza Vaccine: 03/15/14 Surgical History Surgical History: spinal fusion (lumbar), status post carpal tunnel release right rotator cuff Family History Relations & Conditions If Any: FATHER Relation not specified for: FH: myocardial infarction Psychosocial History Smoking Status: Unknown If Ever Smoked ETOH Use: denies use Illicit Drug Use: denies illicit drug use Review of Systems Review of Systems All Other Systems: Reviewed and Negative Exam & Diagnostic Data Last 24 Hrs of Vital Signs/I&O Vital Signs Date Time Temp Pulse Resp B/P B/P Pulse O2 O2 Flow FiO2 Mean Ox Delivery Rate 10/30 0944 84 140/72 10/30 0800 97 Nasal 2.0L Cannula 10/30 0545 97.9 84 22 140/72 99 Room Air 10/30 0000 99 Nasal 3.0L Cannula 10/29 2126 97.7 72 20 162/60 100 Room Air 10/29 1325 99.6 84 18 164/90 97 Room Air Intake & Output 10/30 1600 10/30 0800 10/30 0000 Intake Total 920 200 Output Total 1020 165 Balance -100 35 Intake, IV 800 200 Intake, Oral 120 Output, 120 40 Drainage Output, Urine 900 125 Physical Exam Other Physical Findings: She is awake and alert in no acute distress. She is afebrile. Skin reveals no rash. HEENT exam is negative. Neck is supple with no adenopathy. Lungs are clear. Heart regular rhythm with no murmur. Abdomen is soft, nontender with positive bowel sounds. Back dressing intact with [address]. Extremities trace edema both lower extremities. Neuro without focality. Castlilo catheter is in place. Last 24 Hours of Lab Results: Laboratory Tests 10/29 10/29 1250 0723 Chemistry C-Reactive Prot, Quant (<1.0 mg/dL) 6.2 H C-React Prot High Sens (1.0 - 3.0 mg/L) > 15.0 H Coagulation PT (9.4 - 12.5 SEC) 14.1 H 16.8 H INR (0.90 - 1.19) 1.29 H 1.53 H APTT (25 - 37 SEC) 30 Hematology CBC w Diff NO MAN DIFF REQ WBC (4.8 - 10.8 /CUMM) 9.0 RBC (4.20 - 5.40 /CUMM) 3.30 L Hgb (12.0 - 16.0 G/DL) 9.6 L Hct (37 - 47 %) 29.2 L MCV (81.0 - 99.0 FL) 88.6 MCH (27.0 - 31.0 PG) 29.2 MCHC (33.0 - 37.0 G/DL) 32.9 L RDW (11.5 - 14.5 %) 15.1 H Plt Count (130 - 400 /CUMM) 392 MPV (7.4 - 10.4 FL) 7.2 L Gran % (42.2 - 75.2 %) 68.8 Lymphocytes % (20.5 - 51.1 %) 15.9 L Monocytes % (1.7 - 9.3 %) 11.7 H Eosinophils % (0 - 5 %) 3.4 Basophils % (0.0 - 2.0 %) 0.2 Absolute Granulocytes (1.4 - 6.5 /CUMM) 6.2 Absolute Lymphocytes (1.2 - 3.4 /CUMM) 1.4 Absolute Monocytes (0.10 - 0.60 /CUMM) 1.1 H Absolute Eosinophils (0.0 - 0.7 /CUMM) 0.3 Absolute Basophils (0.0 - 0.2 /CUMM) 0 ESR Westergren (0 - 20 MM) 111 H 10/28 1625 Chemistry Sodium (137 - 145 mmol/L) 138 Potassium (3.5 - 5.1 mmol/L) 4.7 Chloride (98 - 107 mmol/L) 98 Carbon Dioxide (22 - 30 mmol/L) 29 Anion Gap (5 - 16) 11 BUN (7 - 17 mg/dL) 13 Creatinine (0.5 - 1.0 mg/dL) 0.7 Estimated GFR (>60 ml/min) > 60 BUN/Creatinine Ratio (7 - 25 %) 18.6 Glucose (65 - 99 mg/dL) 126 H Calcium (8.4 - 10.2 mg/dL) 9.5 Total Bilirubin (0.2 - 1.3 mg/dL) 0.5 AST (14 - 36 U/L) 29 ALT (9 - 52 U/L) 26 Alkaline Phosphatase (<127 U/L) 149 H Troponin I (< 0.11 ng/ml) < 0.01 Total Protein (6.3 - 8.2 g/dL) 6.7 Albumin (3.5 - 5.0 g/dL) 3.9 Globulin (1.9 - 4.2 gm/dL) 2.8 Albumin/Globulin Ratio (1.1 - 2.2 %) 1.4 Coagulation PT (9.4 - 12.5 SEC) 20.4 H INR (0.90 - 1.19) 1.86 H Hematology CBC w Diff NO MAN DIFF REQ WBC (4.8 - 10.8 /CUMM) 12.1 H RBC (4.20 - 5.40 /CUMM) 3.87 L Hgb (12.0 - 16.0 G/DL) 11.2 L Hct (37 - 47 %) 34.0 L MCV (81.0 - 99.0 FL) 87.9 MCH (27.0 - 31.0 PG) 29.0 MCHC (33.0 - 37.0 G/DL) 33.1 RDW (11.5 - 14.5 %) 14.8 H Plt Count (130 - 400 /CUMM) 462 H MPV (7.4 - 10.4 FL) 7.3 L Gran % (42.2 - 75.2 %) 72.8 Lymphocytes % (20.5 - 51.1 %) 14.3 L Monocytes % (1.7 - 9.3 %) 9.1 Eosinophils % (0 - 5 %) 3.6 Basophils % (0.0 - 2.0 %) 0.2 Absolute Granulocytes (1.4 - 6.5 /CUMM) 8.8 H Absolute Lymphocytes (1.2 - 3.4 /CUMM) 1.7 Absolute Monocytes (0.10 - 0.60 /CUMM) 1.1 H Absolute Eosinophils (0.0 - 0.7 /CUMM) 0.4 Absolute Basophils (0.0 - 0.2 /CUMM) 0 Last 24 Hours of Chucky Results: Blood culture 1 October 29 negative Urine culture October 29 negative OR cultures October 29 labeled purulent superficial subcutaneous tissue, deep fluid from the lumbar wound, and large section of the scar tissue all positive for gram-negative rods The OR culture October 29 labeled bone graft pending, with gram stain revealing few white blood cells with gram-negative rods present Diagnostic Data Recent Imaging Findings: Chest x-ray October 28 negative Assessment/Plan Assessment/Plan Impression: This is a 71-year-old woman with a history of chronic back pain, status post decompressive lumbar laminectomy L2-S1, with insertion of a cage and pedicle screws, 3 weeks prior to admission for spinal stenosis, with Vancomycin prophylaxis, with her postop course complicated by anemia, felt to be secondary to intraoperative blood loss, a right upper extremity DVT in the setting of a PICC, and persistent back pain, begun on Keflex 3 days prior to admission because of drainage from the incision, admitted on October 28 because of persistent drainage from the incision and continued back pain, found to be afebrile with a mild leukocytosis, now status post I&D of the surgical wound with her OR cultures all positive for gram-negative rods. Her clinical picture is consistent with a surgical site infection which must be assumed to involve the bone and, likely, the hardware and, in order to ultimately resolve this infection, it may well be necessary to remove the hardware. Her OR cultures are so far growing gram-negative rods; therefore her antibiotics should be directed against these organisms, but her final cultures are pending. Of note she was on Keflex for 3 days prior to admission, which may affect her OR cultures. She will require a prolonged course of antibiotics. Her IV access is poor and a PICC is to be placed later today. Suggestion: 1. Further management of her surgical site, with consideration of the need for removal of all of her hardware, per Orthopedics 2. Follow-up final OR cultures 3. Remove Castillo catheter 4. Begin Ceftriaxone 2 g IV every 24 hours pending above Consult Acknowledgment - Thank you for your consult request.
--- NOTE | 2017-10-30 14:01 | RADIOLOGY REPORT ---
EXAMINATION: XR PORTABLE CHEST CLINICAL INFORMATION: PICC line placement. COMPARISON: Chest radiograph 10/28/2017. TECHNIQUE: Portable frontal view of the chest was obtained. FINDINGS: A left upper extremity PICC has been placed and its distal tip is located at the cavoatrial junction. Lungs are well-expanded. There is no focal consolidative disease, pleural effusion, or pneumothorax. The cardiac silhouette and upper mediastinal contours are normal. No acute osseous finding. IMPRESSION: The tip of the left upper extremity PICC is located at the cavoatrial junction.
[2017-10-30 14:50] VITALS: BP 130/68
[2017-10-30 22:27] VITALS: BP 150/69
[2017-10-31 06:23] VITALS: BP 176/74
[2017-10-31 07:03] VITALS: BP 162/52
[2017-10-31 08:35] LABS: ABSOLUTE BASOPHIL COUNT 0.1 /CUMM (0.0-0.2); ABSOLUTE EOSINOPHIL COUNT 0.6 /CUMM (0.0-0.7); ABSOLUTE GRANULOCYTE CT 8.3 /CUMM (1.4-6.5); ABSOLUTE LYMPH COUNT 1.7 /CUMM (1.2-3.4); ABSOLUTE MONOCYTE COUNT 1.6 /CUMM (0.10-0.60); BASOPHIL % 0.5 % (0.0-2.0); EOSINOPHIL % 4.6 % (0-5); GRANULOCYTE % 67.8 % (42.2-75.2); MEAN CORPUSCULAR HGB 29.2 PG (27.0-31.0); MEAN CORPUSCULAR HGB CONC 33.2 G/DL (33.0-37.0); MEAN CORPUSCULAR VOLUME 87.9 FL (81.0-99.0); MEAN PLATELET VOLUME 7.6 FL (7.4-10.4); PLATELET COUNT 337 /CUMM (130-400); RBC DISTRIBUTION WIDTH 15.1 % (11.5-14.5); RED BLOOD CELL CT 2.74 /CUMM (4.20-5.40); WHITE BLOOD CELL COUNT 12.3 /CUMM (4.8-10.8)
[2017-10-31 09:00] LABS: PT 12.2 SEC (9.4-12.5)
--- NOTE | 2017-10-31 09:57 | PN- Orthopedic ---
See Addendum Subjective Subjective: PATIENT SITTING UP EATING BREAKFAST COMPLAINS OF GENERALIZED SORENESS AND WEAKNESS DRAINS WITH 60CC/10CC OUTPUTS NO FEVERS OR CHILLS Objective Vital Signs and I&Os Vital Signs Date Time Temp Pulse Resp B/P B/P Pulse O2 O2 Flow FiO2 Mean Ox Delivery Rate 10/31 825 176/74 10/31 0703 81 162/52 96 10/31 0623 98.0 87 20 176/74 99 10/31 0000 Nasal 2.0L Cannula 10/30 2226 98.2 97 20 150/69 100 10/30 1757 Room Air 10/30 1450 99.3 92 20 130/68 99 Nasal Cannula Intake & Output 10/31 1600 10/31 0800 10/31 0000 10/30 1600 10/30 0810/30 0000 Intake Total 510 490 770 920 200 Output Total 288 208 2265 1020 165 Balance -180 -430 -730 -100 35 Intake, IV 30 10 150 800 200 Intake, Oral 480 480 620 120 Number 0 0 0 Bowel Movements Output, 40 70 120 40 Drainage Output, Urine 696 384 6170 900 125 Patient 187 lb Weight Physical Exam: PATIENT IS ALERT AND ORIENTED, APPEARS COMFORTABLE CHEST -CTA SYMMETRIC HEART- RRR WITHOUT MRG ABDOMEN -SOFT, NT LUMBAR SPINE - WOUND -CDI WITHOUT ERYTHEMA OR DRAINAGE, DRESSINGS CHANGED CLARIBEL WITH 60/10 CC OUTPUT BILATERAL LOWER EXTREMITIES, SENSORY-MOTOR INTACT NO CALF PAIN OR EDEMA Admission Lab Results I reviewed the following labs: Laboratory Tests 10/31 0530 Chemistry Sodium (137 - 145 mmol/L) 137 Potassium (3.5 - 5.1 mmol/L) 4.2 Chloride (98 - 107 mmol/L) 96 L Carbon Dioxide (22 - 30 mmol/L) 33 H Anion Gap (5 - 16) 7 BUN (7 - 17 mg/dL) 10 Creatinine (0.5 - 1.0 mg/dL) 0.7 Estimated GFR (>60 ml/min) > 60 BUN/Creatinine Ratio (7 - 25 %) 14.3 Coagulation PT (9.4 - 12.5 SEC) 12.2 INR (0.90 - 1.19) 1.12 Hematology CBC w Diff Pending WBC Pending RBC Pending Hgb Pending Hct Pending MCV Pending MCH Pending MCHC Pending RDW Pending Plt Count Pending MPV Pending Assessment/Plan Assessment/Plan POD 3 LUMBAR I+D OOB WITH PT PICC LINE IN PLACE ARRANGE DISCHARGE FOR ECF AWAITING FINAL CX G-MARTA, SENSITIVIES AND ID INPUT ON OUTPATIENT IV ABX COUMADIN TO START TONIGHT Core Measures Venous Thromboembolism VTE Risk Factors Age>40 No Mechanical VTE Prophylaxis d/t N/A MechProphylax Ordered No VTE Pharm Prophylaxis d/t Surgical Contraindication
[2017-10-31 10:57] LABS: HEMATOCRIT 24.1 % (37-47)
[2017-10-31 11:30] VITALS: BP 128/56
--- NOTE | 2017-10-31 14:03 | PN- Infect Dx ---
Subjective Subjective: Afebrile. She continues to complain of back pain. Objective Last 24 Hrs of Vital Signs/I&O Vital Signs Date Time Temp Pulse Resp B/P B/P Pulse O2 O2 Flow FiO2 Mean Ox Delivery Rate 10/31 1130 98.5 96 20 128/56 96 Room Air 10/31 0826 176/74 10/31 0800 96 Room Air 10/31 0703 81 162/52 96 10/31 0623 98.0 87 20 176/74 99 10/31 0000 Nasal 2.0L Cannula 10/30 2227 98.2 97 20 150/69 100 10/30 1757 Room Air 10/30 1450 99.3 92 20 130/68 99 Nasal Cannula Intake & Output 10/31 1600 10/31 0800 10/31 0000 Intake Total 510 490 Output Total 400 690 920 Balance -400 -180 -430 Intake, IV 30 10 Intake, Oral 480 480 Number 1 0 0 Bowel Movements Output, 40 70 Drainage Output, Urine 400 650 850 Physical Exam Other Physical Findings: She appears comfortable in no acute distress Lungs are clear Heart regular rhythm with no murmur Back dressing intact, with drains in place Extremities no cyanosis, clubbing or edema; PICC in the left upper extremity with no inflammation at the site Results Last 24 Hours of Lab Results: Laboratory Tests 10/31 0530 Chemistry Sodium (137 - 145 mmol/L) 137 Potassium (3.5 - 5.1 mmol/L) 4.2 Chloride (98 - 107 mmol/L) 96 L Carbon Dioxide (22 - 30 mmol/L) 33 H Anion Gap (5 - 16) 7 BUN (7 - 17 mg/dL) 10 Creatinine (0.5 - 1.0 mg/dL) 0.7 Estimated GFR (>60 ml/min) > 60 BUN/Creatinine Ratio (7 - 25 %) 14.3 Coagulation PT (9.4 - 12.5 SEC) 12.2 INR (0.90 - 1.19) 1.12 Hematology CBC w Diff NO MAN DIFF REQ WBC (4.8 - 10.8 /CUMM) 12.3 H RBC (4.20 - 5.40 /CUMM) 2.74 L Hgb (12.0 - 16.0 G/DL) 8.0 L Hct (37 - 47 %) 24.1 L MCV (81.0 - 99.0 FL) 87.9 MCH (27.0 - 31.0 PG) 29.2 MCHC (33.0 - 37.0 G/DL) 33.2 RDW (11.5 - 14.5 %) 15.1 H Plt Count (130 - 400 /CUMM) 337 MPV (7.4 - 10.4 FL) 7.6 Gran % (42.2 - 75.2 %) 67.8 Lymphocytes % (20.5 - 51.1 %) 14.0 L Monocytes % (1.7 - 9.3 %) 13.1 H Eosinophils % (0 - 5 %) 4.6 Basophils % (0.0 - 2.0 %) 0.5 Absolute Granulocytes (1.4 - 6.5 /CUMM) 8.3 H Absolute Lymphocytes (1.2 - 3.4 /CUMM) 1.7 Absolute Monocytes (0.10 - 0.60 /CUMM) 1.6 H Absolute Eosinophils (0.0 - 0.7 /CUMM) 0.6 Absolute Basophils (0.0 - 0.2 /CUMM) 0.1 Last 24 Hours of Chucky Results: OR cultures October 29 4, including bone and soft tissue, all positive for Klebsiella pneumoniae resistant to Ampicillin Blood culture October 29 negative Urine culture October 29 negative Assessment/Plan ID Impression: Stable, with temperatures remaining normal but with her white blood cell count increased today, on Ceftriaxone for a surgical site infection secondary to Klebsiella following a decompressive lumbar laminectomy L2-S1 3 weeks prior to admission now 3 days status post I&D. The bone culture is positive, confirming the suspicion of osteomyelitis, and involvement of the hardware must be considered. It may not be feasible to remove the hardware at this time but this may ultimately be necessary in order to resolve this infection. She will require a minimum of 6 weeks of antibiotics but, given the isolation of Klebsiella, options for treatment include oral Ciprofloxacin and will discuss this further with Orthopedics. Suggestion: 1. Further management of her surgical site per Orthopedics 2. Continue Ceftriaxone
[2017-10-31 14:37] VITALS: BP 149/64
--- NOTE | 2017-10-31 15:17 | PN- Att Addend ---
Attending Addendum Attending Brief Note h/o recent DVT in upper extremity - pt started back on coumadin. d/w surgical PA about putting her on sc heparin atleast but Dr Mondragon does not want any sc heparin or any pharmacological proph for now.
[2017-10-31 21:36] VITALS: BP 132/58
[2017-11-01 06:35] VITALS: BP 160/58
[2017-11-01 08:20] VITALS: BP 134/70
[2017-11-01 08:27] LABS: PT 12.4 SEC (9.4-12.5)
[2017-11-01 12:36] LABS: ABSOLUTE BASOPHIL COUNT 0 /CUMM (0.0-0.2); ABSOLUTE EOSINOPHIL COUNT 0.6 /CUMM (0.0-0.7); ABSOLUTE GRANULOCYTE CT 7.1 /CUMM (1.4-6.5); ABSOLUTE LYMPH COUNT 1.3 /CUMM (1.2-3.4); ABSOLUTE MONOCYTE COUNT 1.1 /CUMM (0.10-0.60); BASOPHIL % 0.3 % (0.0-2.0); EOSINOPHIL % 6.3 % (0-5); GRANULOCYTE % 69.7 % (42.2-75.2); HEMATOCRIT 24.6 % (37-47); MEAN CORPUSCULAR HGB 28.8 PG (27.0-31.0); MEAN CORPUSCULAR HGB CONC 32.9 G/DL (33.0-37.0); MEAN CORPUSCULAR VOLUME 87.7 FL (81.0-99.0); MEAN PLATELET VOLUME 7.1 FL (7.4-10.4); PLATELET COUNT 408 /CUMM (130-400); RBC DISTRIBUTION WIDTH 14.9 % (11.5-14.5); WHITE BLOOD CELL COUNT 10.2 /CUMM (4.8-10.8)
[2017-11-01 14:50] VITALS: BP 149/61
--- NOTE | 2017-11-01 20:32 | PN- Orthopedic ---
Subjective Subjective: pt was seen and examined by dr najera earlier today, he pulled both drains and changed the dressing. pt still having mederate back pain but she was able to ambulate today. Denies cp/sob, says breathing treatments are helping. denies fevers Objective Vital Signs and I&Os Vital Signs Date Time Temp Pulse Resp B/P B/P Pulse O2 O2 Flow FiO2 Mean Ox Delivery Rate 11/01 1830 93 Room Air 11/01 1540 Room Air 11/01 1450 98.2 96 18 149/61 98 Room Air 11/01 0937 98 Room Air 11/01 0820 134/70 11/01 0819 134/70 11/01 0800 96 Room Air 11/01 0635 98.1 91 20 160/58 96 10/31 2136 97.9 84 18 132/58 99 Room Air Intake & Output 11/01 1600 11/01 0800 11/01 0000 10/31 1600 10/31 0800 10/31 0000 Intake Total 1280 842 522 2222 510 490 Output Total 900 868 56 2630 690 920 Balance 380 -430 936 -28 -180 -430 Intake, IV 80 30 10 Intake, Oral 1200 173 502 4887 480 480 Number 1 1 2 2 0 0 Bowel Movements Output, 30 14 28 40 70 Drainage Output, Urine 096 421 9176 650 850 Physical Exam: gen- NAD resp- clear abd- obese, soft, nt back- clean dry dressing in place ext- mild swelling, minimal calf tenderness Current Medications: Current Medications Sig/Clementine Start time Last Medication Dose Route Stop Time Status Admin Acetaminophen 650 MG Q4P PRN 10/28 1900 AC PO Albuterol Sulfate 3 ML BID 10/31 2100 AC 11/01 INH 183 Albuterol Sulfate 2 PUF Q6P PRN 10/28 1815 AC 11/01 INH 0820 Artificial Tears 2 GTT 4 TIMES/DAY 10/28 2100 AC 11/01 OPH 2006 Budesonide/ 2 PUF BID 10/28 2100 AC 11/01 Formoterol Fumarate INH 2005 Calcium Carbonate 1,000 MG Q6-PRN PRN 10/30 1945 AC 10/30 PO 2022 Ceftriaxone Sodium 2,000 MG DAILY 10/30 1200 AC 11/01 IV 0819 Diltiazem HCl 120 MG DAILY 10/29 0900 AC 11/01 PO 0818 Fluticasone 2 SPRAY DAILY 10/29 1039 AC 10/31 Propionate KIM 0826 Hydrochlorothiazide 25 MG DAILY 10/29 0900 AC 11/01 PO 0819 Hydrocodone Bitart/ 2 TAB Q4-6 PRN PRN 10/30 0245 AC 11/01 Acetaminophen PO 1622 Hydrocodone Bitart/ 1 TAB Q4P PRN 10/29 0130 AC 11/01 Acetaminophen PO 1229 Insulin Human Regular 10 UNITS .STK-MED ONE 11/01 1151 DC IV 11/01 1152 Insulin Human Regular 1 UNITS .STK-MED ONE 11/01 0757 DC IV 11/01 0758 Insulin Human Regular 0 TIDAC/HS 10/30 0800 AC 11/01 SC 2006 Loratadine 10 MG DAILY 10/29 0900 AC 11/01 PO 0818 Losartan Potassium 100 MG DAILY 10/29 09 AC 11/01 PO 0819 Montelukast Sodium 10 MG 1800 10/29 1800 AC 11/01 PO 1622 Morphine Sulfate 4 MG Q3P PRN 10/30 0245 AC 10/31 IV 0006 Morphine Sulfate 15 MG BID 10/28 2100 AC 11/01 PO 2005 Omeprazole 40 MG DAILY AC 10/29 0700 AC 11/01 PO 0656 Ondansetron HCl 4 MG Q6P PRN 10/28 1900 AC IV Polyethylene Glycol 17 GM DAILY 10/28 2009 AC 11/01 PO 0821 Senna/Docusate Sodium 1 TAB BID PRN 10/28 2014 AC 10/31 PO 0006 Sodium Chloride 2 SPRAY Q4P PRN 10/29 1045 AC 11/01 KIM 0821 Warfarin Sodium 5 MG COUMADIN 1700 ONE 11/01 1730 DC 11/01 PO 11/01 1731 1740 Results Last 48 Hours of Labs: Laboratory Tests 11/01 11/01 1225 0730 Coagulation PT (9.4 - 12.5 SEC) 12.4 INR (0.90 - 1.19) 1.14 Hematology CBC w Diff NO MAN DIFF REQ WBC (4.8 - 10.8 /CUMM) 10.2 RBC (4.20 - 5.40 /CUMM) 2.80 L Hgb (12.0 - 16.0 G/DL) 8.1 L Hct (37 - 47 %) 24.6 L MCV (81.0 - 99.0 FL) 87.7 MCH (27.0 - 31.0 PG) 28.8 MCHC (33.0 - 37.0 G/DL) 32.9 L RDW (11.5 - 14.5 %) 14.9 H Plt Count (130 - 400 /CUMM) 408 H MPV (7.4 - 10.4 FL) 7.1 L Gran % (42.2 - 75.2 %) 69.7 Lymphocytes % (20.5 - 51.1 %) 12.8 L Monocytes % (1.7 - 9.3 %) 10.9 H Eosinophils % (0 - 5 %) 6.3 H Basophils % (0.0 - 2.0 %) 0.3 Absolute Granulocytes (1.4 - 6.5 /CUMM) 7.1 H Absolute Lymphocytes (1.2 - 3.4 /CUMM) 1.3 Absolute Monocytes (0.10 - 0.60 /CUMM) 1.1 H Absolute Eosinophils (0.0 - 0.7 /CUMM) 0.6 Absolute Basophils (0.0 - 0.2 /CUMM) 0 05/19 0530 Chemistry Sodium (137 - 145 mmol/L) 137 Potassium (3.5 - 5.1 mmol/L) 4.2 Chloride (98 - 107 mmol/L) 96 L Carbon Dioxide (22 - 30 mmol/L) 33 H Anion Gap (5 - 16) 7 BUN (7 - 17 mg/dL) 10 Creatinine (0.5 - 1.0 mg/dL) 0.7 Estimated GFR (>60 ml/min) > 60 BUN/Creatinine Ratio (7 - 25 %) 14.3 Coagulation PT (9.4 - 12.5 SEC) 12.2 INR (0.90 - 1.19) 1.12 Hematology CBC w Diff NO MAN DIFF REQ WBC (4.8 - 10.8 /CUMM) 12.3 H RBC (4.20 - 5.40 /CUMM) 2.74 L Hgb (12.0 - 16.0 G/DL) 8.0 L Hct (37 - 47 %) 24.1 L MCV (81.0 - 99.0 FL) 87.9 MCH (27.0 - 31.0 PG) 29.2 MCHC (33.0 - 37.0 G/DL) 33.2 RDW (11.5 - 14.5 %) 15.1 H Plt Count (130 - 400 /CUMM) 337 MPV (7.4 - 10.4 FL) 7.6 Gran % (42.2 - 75.2 %) 67.8 Lymphocytes % (20.5 - 51.1 %) 14.0 L Monocytes % (1.7 - 9.3 %) 13.1 H Eosinophils % (0 - 5 %) 4.6 Basophils % (0.0 - 2.0 %) 0.5 Absolute Granulocytes (1.4 - 6.5 /CUMM) 8.3 H Absolute Lymphocytes (1.2 - 3.4 /CUMM) 1.7 Absolute Monocytes (0.10 - 0.60 /CUMM) 1.6 H Absolute Eosinophils (0.0 - 0.7 /CUMM) 0.6 Absolute Basophils (0.0 - 0.2 /CUMM) 0.1 Assessment/Plan Assessment/Plan 71yo f SP I&D of infected back wound POD3. The wound is from an instrumented lumbar fusion on 10/07/[address] Najera which was complicated by acute blood loss anemia and an upper extremity dvt. Wound cultures are positive for klebsiella. She is currently getting IV ABX via a PICC line and is afebrile. Dr Najera saw the pt earlier today and changed the dressing and pulled both drains. COnt ABX per ID- Rocephin, appreciate input Physical therapy dvt ppx- coumadin- medicine input appreciated for dosing DC planning- plan for ECF Core Measures Venous Thromboembolism VTE Risk Factors Age>40 No Mechanical VTE Prophylaxis d/t N/A MechProphylax Ordered No VTE Pharm Prophylaxis d/t Surgical Contraindication
[2017-11-01 21:25] VITALS: BP 134/72
--- NOTE | 2017-11-02 05:31 | Operative Report ---
Operative/Inv Procedure Report Surgery Date: 10/29/17 Name of Procedure: 1) L2-S1 Lumbar And Lumbosacral Junction Region Surgical Site Incision, Exploration, Culture, Evacuation Of Fluid Collection, Pulse Lavage Irrigation Of All Exposed Soft Tissue Structures, Hardware, Posterobilateral Intertransverse Spaces And Fusion Mass For Delayed Onset Postoperative Incisional Dehiscence, Purulent Incisional Fluid Drainage, Associated Underlying Purulent Fluid Collection Consistent With Potentially Infected Postoperative Paraspinal Liquefied Hematoma Versus Seroma Without Evidence Of Epidural Or Anterior Column Extension Following Complex Index Revision Decompression, Reduction Of Multilevel Spondylolisthesis And Multicolumn Instrumented Fusion (10/07/2017) ( Dania/Ke) 2) L2-S1 Lumbar And Lumbosacral Junction Region Initial Section (1st 20 Square Centimeters) Surgical Site Multizone (Superficial Suprafascial, Fascial And Deep Subfascial Level) Sharp (Scalpel), Blunt Mechanical (Curette) And Hydrodynamic (Pulse Lavage) Superficial Surface Tissue Layer Debridement Of All Exposed Surgical Site Tissues Down To And Including The Osseous Layer ([place] Adjacent Level Spinous Processes And Previously Operated Laminar, Lateral Mass, And Sacral Alar Osseous Structures, Partially Incorporated And As Yet Unincorporated Previously Implanted Autograft Tissue And Allograft Implanted Material) Out Of A Total Osseous Surface Area Of Debridement Of 80 Square Centimeters (Debrided Exposed Spinal Osseous Surface) As Well As All More Superficial (Epidermal, Dermal, Subcutaneous, Fascial And Paraspinal Muscular) Tissues Out Of A Total Surgical Site Surface Area Of Debridement Of 400 Square Centimeters (Suprafascial Epidermal, Dermal, Subcutaneous Suprafascial, Fascial, Deep Subfascial And Osseous Surfaces) (* = Refer To This Procedure Description For Details Of Debridement) (Dania/Ke) 3) L2-S1 Lumbar And Lumbosacral Junction Region Second Section (2nd 20 Square Centimeters) Of Surgical Site Multizone Sharp (Scalpel), Blunt Mechanical (Curette) And Hydrodynamic (Pulse Lavage) Superficial Surface Tissue Layer Debridement* Down To And Including The Osseous Tissue Commercial Portfolio Manager Of A Total Osseous Surface Area Of Debridement Of 80 Square Centimeters (Debrided Exposed Spinal Osseous Surface) (Dania/Ke) 4) L2-S1 Lumbar And Lumbosacral Junction Region Third Section (3rd 20 Square Centimeters) Of Surgical Site Debridement* Down To And Including The Osseous Tissue Layer (Dania/Ke) 5) L2-S1 Lumbar And Lumbosacral Junction Region Fourth Section (4th 20 Square Centimeters) Of Surgical Site Debridement* Down To And Including The Osseous Tissue Layer (Dania/Ke) 6) L2-S1 Lumbar And Lumbosacral Junction Region (Lower Posterior Trunk) Surgical Site Scar Revision With Excision Of Dehiscence Sites As Well As Other Areas Of Compromised And Devitalized Or Potentially Infected Cutaneous And Subcutaneous Soft Tissue Followed By Adjacent Tissue Repair Of 20 Total Square Centimeters Of Primary And Secondary Soft Tissue Defect (1st 30.0 Square Centimeter Section Or Significant Portion Thereof) (Dania/Ke) 7) L2-S1 Exploration (Visual And Palpation Assessment) Of Posterobilateral Column Fusion (Dania/Ke) Pre-Operative Diagnosis: Primary Surgically Treated Diagnoses: 1) Lumbar Surgical Site Superficial (External) Dehiscence 2) Postoperative Hematoma (Likely Infected Based On Clinical Correlation With Late Postoperative Onset Of Incisional Dehiscence, Surgical Site Drainage, Increased Back Pain As Well As Low Grade Systemic Symptoms, Signs And Other Clinical Findings But Without Definitive Culture Documentation Of Infection) 3) Delayed Onset And Persistent Lumbar Postoperative Surgical Site Drainage 4) Moderate To Severe And Increasing, Activity-Limiting Dehiscence-Related ( And Potentially Infection-Related) Lumbosacral Region Back Pain Post-Operative Diagnosis: Same as preoperative diagnosis list. Estimated Blood Loss: 150-200 cc estimated blood loss Surgeon/Specialist Physicians: UMER MURRELL MD - Primary Admitting Orthopaedic Surgeon ERIC DEMPSEY MD - Primary Consulting Neurological Surgeon Surgical Providers: Umer Murrell M.D. - Orthopaedic Surgeon (Primary Admitting Surgeon) Eric Dempsey M.D. - Neurosurgeon (Specialist Physicians Surgeon) Vero Harding P.A.-C - Second Specialist Physicians Anesthesia: general endotracheal tube Monitors: Standard general anesthesia and other perioperative monitoring was performed per anesthesia protocols. Refer to anesthesia records for details. IV Fluids: Standard anesthesia perioperative fluid management was performed without requirement for additional or emergent fluid resuscitation. Refer to anesthesia records for details. Implants: Implants Removed: None Graft Removed: Small Volume Of Posterobilateral Loose, Unincorporated Superficial AlloGraft Material Removed ~20% Of Total Graft Volume Was Removed By Curettage Debridement Debrided Specimen Sent To Microbiology For Tissue Culture Analysis Remaining Incorporating Graft Was Superficially Debrided But Otherwise Retained New Implants Placed: None New Graft Placed: None Urine Output: Refer to anesthesia records for details. Drains: Large bore (15 Mauritian) subfascial CLARIBEL drains x 2 to medium deflation vacuum bulb suction reservoirs. Fenestrated portions of drain tubes placed in each posterolateral intertransverse space (lateral gutter) with unfenestrated portion through deep muscle, fascia, subcutaneous tissue, and skin of bilateral inferolateral aspect of surgical site [place] without suture fixation. Specimens: No pathology specimens sent. See Microbiology section for desription of specimens. Microbiology: Multiple superficial suprfascial and deep subfascial labelled fluid and tissue culture specimens sent to microbiology for analysis (gram stain, culture and sensitivity) Complications: None Operative/Procedure Note Note: Preoperative Holding Area Assessment/Preparation: The patient was evaluated in the preoperative holding area prior to surgery and no clinical changes or contraindications to surgical intervention were noted compared to the preoperative baseline findings documented on admission and preoperative orthopaedic clearance general, neurovascular and musculoskeletal evaluations. Her lumbar surgical site showed partial dehiscence, moderate erythema and moderate thin purulent drainage on office examination immediately prior to admission and on evaluation at the time of admission to the hospital. There does not appear to be any change since those evaluations. The dressing was not changed at the time of immediate preoperative evaluation. The patient was grossly neurovascularly intact in both lower extremities to standard immediate preoperative testing. She did not have any nuchal rigidity, photophobia or any other central meningeal signs. The patient's anticoagulation treatment had been discontinued and her INR adequately normalized prior to surgery. The surgical plan and site were confirmed with the patient and preoperative paperwork was finalized. The region of the intended surgical site was cleansed, prepped and marked per protocol. The primary surgeon, anesthesia care team members, and operating room staff confirmed the patient identity, surgical procedure, and operative site as well as other clinical details with the patient in an initial documented preoperative confirmation (awake time out ) prior to the administration of significant sedation or anesthesia. Surgical Procedure: The procedure was performed by Dr. Murrell who was present and served as the primary surgeon for all critical intraoperative and perioperative decisions and interventions. Dr. Dempsey assisted throughout all critical phases of the procedure. Vero Harding P.A.-C served as second loan assistant during the initial phases of the procedure. The patient's grossly endomorphic body habitus and obesity (based on World Health Organization criteria with BMI = 37.6) increased the difficulty and risk of the procedure (particularly for initial incidence as well as for potential recurrence of infection) well above average even for a complex procedure of this type but did not specifically require additional procedural services in this case beyond the standard I&D procedures and surgical site revision with adjacent tissue reconstruction as outlined in the procedure list above and in the detailed description below. The assistance of a specialty trained physician was critical for safe completion of all phases of the procedure, particularly for maintenance of clear visualization in the operative field and for protection of exposed neural elements during dissection, debridement and irrigation. Set-Up/Positioning/Exposure - The patient was brought to the operating room in stable condition and underwent uncomplicated induction of general anesthesia, intubation, and placement of all appropriate monitors, lines and catheters without difficulty. No antibiotics were given until all cultures were obtained following complete initial incision, dissection, exposure, drainage of fluid collection and debridement of all involved soft and osseous tissues. Thereafter, the patient was given 1 gram of IV Vancomycin. No steroids were administered (even low dose by anesthesia for airway management) because of the patient's active lumbar surgical site infection. The patient was positioned prone on the Leo operating table in standard fashion for the planned procedure of mid- and lower lumbar irrigation and debridement followed by exploration of posterobilateral fusion mass. Care was taken to protect and stabilize the spine during transfer, avoid positions of nerve stretch, pad all pressure points, and support the head without any pressure on the eyes using a foam head rest and head-holding frame. Additional foam padding was used at the iliac crest and thigh pads as well as against the Leo frame because of the patients' large size. Particular attention was paid to padding the right chest wall at the site of persistent but improving focal pain which had been difficult to manage following the index procedure but which had been ruled out for pleuritic or rib fracture by extensive work-up during previous hospitalization. The arms were abducted less than 90 degrees at the shoulders, flexed less than 90 degrees at the elbows and supported on well- padded arm-boards with additional foam padding from the axillary regions to the hands. All pressure points were either fully padded or supported without any contact at all between pads. Particular attention was paid to the right upper extremity to avoid pressure points or acute angle position given her recent upper extremity deep venous thrombosis diagnosed by serial Doppler and requiring anticoagulant treatment. Care was also taken to avoid acute angulation at the elbow at her current PICC site. On visual inspection, the immediate paraincisional area at the superficial lower surgical site dehiscence was significantly erythematous with extension into the surrounding tissues thus indicating en bloc excision of the superficial paraincisional tissues with local tissue flap reconstruction so as to optimize healing potential and minimize risk of recurrent dehiscence or infection. It should be noted that the incision had appeared to be healing at the standard 2 week postoperative timepoint and so all maya had already been removed with the dehiscence occurring on a very delayed basis almost a week thereafter. Intermediate level [id number] pressure was applied to both sides of the surgical region and this downward pressure was maintained while additional pressure was also directed toward the midline and centered at the level of primary incisional dehiscence in an attempt to express and evacuate as much retained fluid collection as possible prior to prep and drape. Only a small amount of fluid was expressed. The expressed fluid was thin, dark and cloudy with no gross purulent material evident. The primary surgeon, anesthesia care team, and operating room staff again documented the patient identity, surgical procedure, and operative site as well as other clinical details in a final documented confirmation (final time out) prior to beginning the procedure. After sterile prep and drape using standard technique with Gel Prep, a pointed elliptical incision was mapped and made extending longitudinally just beyond the cephalad and caudal ends of the previous incision, competely circumscribing and excising the patient's previous cutaneous surgical site from the level of the tip of the L1 spinous process to the level of the S1 spinous process overlying the intended L2-S1 operative vertebral segments. This dissection was extended down through the subcutaneous layer to the level of the fascia in a tapered fashion beginning approximately 0.5 cm from the incisional edge at the cutaneous level and beveling toward the midline to resect a thin and steadily decreasing thickness of subcutaneous tissue leaving adequate thickness of suprafascial tissue wall in the deep subcutaneous layer just above the fascia so as to maintain fascial vascularity and soft tissue coverage. This tapered resection was continued throughout the length of the dissection so as to resect all previously compromised skin and subcutaneous tissue and leaving healthy edges to be advanced and approximated in the midline for later closure of well vascularized tissues. Hemostasis was achieved using Bovie and Bipolar electrocautery where necessary beginning with the incision and continuing throughout the procedure with settings appropriate to each progressive level. No gross purulence was noted in the suprafascial subcutaneous space except within the channels of the dehiscence sites which had been completely resected and did not show any sign of direct communication with the subfascial deep space by inspection or palpation at the base of either of the resected dehiscence areas. The thin dark cloudy fluid which had been draining from the dehiscence site was noted within the superficial tissues and was felt to be most consistent with infected hematoma. The lumbosacral fascia was reopened overlying the inferior tip of the L1 spinous process, the previously decompressed L2, L3, L4 and L5 vertebral levels and the S1 spinous process tip. All previously placed fascial sutures were removed. It should be noted that even after suture removal, the fascia had to be digitally mechanically dissected through most of its length as much of the fascial repair appeared to be healing well without any sign of tissue compromise , dehiscence or deep space communication. There was a small opening at the inferior third of the repair that appeared to communicate. Prior to opening the fascia, pressure was applied to both sides of midline and directed ventral and medial so as to express any retained fluid collection. No fluid was expressible. The dissection was then carried down both sides of the midline taking care to avoid the laminectomy defect, over the facets and into the intertransverse spaces overlying the arthrodesis and fusion masses bilaterally. During dissection there was evidence of a small liquified hematoma in the subfascial space. This collection was similar in description to the fluid noted at the dehiscence site and in the suprafascial level. Swab and syringe culture samples were obtained and sent to microbiology for culture and sensitivity analysis per standard protocols. The fluid collection was readily evacuated and did not appear to reaccumulate to suggest an entrapped or occult source from within the paraspinal tissues or spinal structures. On visual and minimal palpation evaluation, there was no evidence or suggestion of purulence or any fluid efflux from the laminotomy sites which were densely covered with normal healing fibrous tissue and were therefore not dissected or otherwise further explored. There was no sign of purulent material directly involving or eminating from the osseous structures including the exposed L1 and S1 spinous process surfaces, laminectomy edges, lateral masses or sacral ala bilaterally. There was no sign of purulent material or even thin infected hematoma involving the bone graft in either intertransverse space or intimately involving the hardware on either side. The hardware was in good position, rigidly fixed and shoed no sign of loosening on visual evaluation or gentle mechanical testing. The superficial layer of bone graft (which was primarily allograft osteopromotive material) did not appear to be fully incorporated at this early timepoint and was removed using a large curette. This superficial layer of graft resection involved approximately 20% of the graft volume bilaterally. There was no evidence of deep infection extending into the lower layers of the fusion mass which appeared to be fully incorporating, solidifying and could not be easily dislodged even with moderate shear pressure application using a large curette. Therefore, this deeper layer (including most of the allograft and essentially all of the deeper placed autograft) of fusion mass was retained. The resected graft material was sent to microbiology for tissue culture. Vancomycin 1 gram IV was given once these final culture specimens were collected. The retained fusion mass was thoroughly explored bilaterally throughout its length by both visual, palpation and gentle mechanical evaluation and there was no evidence for vic pseudoarthrosis at any point within the arthrodesis. With all dissection completed, Gelpi retractors were placed for optimal exposure. Scalpel, Leksell rongeur, large curettes and Pearce elevators were used to remove any potential compromised or infected soft or osseous tissue from all superficial exposed surfaces of the surgical site [place], the spinous processes, intact or partially resected laminae, facets, sacral ala and fusion masses bilaterally. Once all surfaces were sharply and mechanically debrided, 12 liters of Bacitracin irrigant pulse lavage hydrodynamic debridement was performed covering all surfaces equally taking care to protect the exposed (but well granulated) neural structures in the midline. At intervals throughout this process the retractors were removed so that the [place] of the surgical site behind them could be effectively debrided and pulse irrigated. Finally, the midline structures were cleansed with 500 cc of mechanical pulse bulb antibiotic irrigation. After completion of this process, there was no suggestion of retained compromised tissue, hematoma or fluid collection. There was no sign of efflux of draining fluid from any region within the surgical site and no suggestion of either epidural origin or involvement. In fact, the laminectomy sites and epidural spaces were found to be well covered with healthy granulation tissue throughout the procedure and there was no indication for deep dissection, exploration or debridement below the laminar level or into the canal. The hardware appeared clean with no potentially infected tissue retained in the set screw heads or at the screw-mary interfaces. Closure/Recovery - The surgical site was thoroughly irrigated and hemostasis was carefully achieved prior to closure. 250 cc of Vancomycin powder was divided equally between the two posterolateral gutters overlying the arthrodesis bone graft. Care was taken to avoid contact with the midline structures. Dual large bore subfascial CLARIBEL drains were placed with one on each side in the lateral intertransverse spaces and carried out through the inferior wall of each side of the surgical site using a trocar. Initial counts were correct prior to closure. The deep lumbar muscular layer was reapproximated using #0 Nylon interrupted suture technique so as to minimize open subfascial space for hematoma collection. The fascial layer was reapproximated in a [id number] closure using #0 Nylon interrupted, [id number] suture technique. The suprafacial tissues were thoroughly irrigated and the remaining Vancomycin powder (250 cc) was placed in the suprafascial plane prior to final superficial closure. During the superficial (suprafascial) closure, adjacent tissue advancement techniques were used to approximate the well vascularized subcutaneous and cutaneous tissues exposed by en-bloc resection of the previous surgical site. Use of this technique was successful in minimizing "-space" and optimizing superficial closure so as to enhance healiong potential and minimize risk of recurrent dehiscence. The deep suprafascial closure was performed with #2-0 Nylon interrupted, simple suture technique. The superficial subcutaneous layer was closed with #3-0 Nylon inverted, interrupted, simple sutures. The skin was closed using running #3-0 Nylon with interlocking technique taking care to avoid any excessive focal pressure or constriction of cutaneous and subcutaneous tissue at the incision edges. A standard, sterile Xeroform dressing was placed, covered with folded fluff 6x6 gauze and ABD pads and held using Cover-Roll with good surgical site and bilateral drain site coverage. All counts were correct prior to removing the drapes. The patient was turned into the supine position on the hospital bed using careful log-roll technique, avoiding torsional stress and stabilizing the lumbar region during transfer. She was then extubated in the operating room without difficulty. Recovery Room Assessment: The patient was transported to the recovery room in stable condition where gross neurological examination showed normal function with no deficits or worsening compared to her pre-operative assessments on initial recovery from anesthesia. The patient will follow the usual postoperative protocol for lumbar surgical site irrigation, debridement, cutaneous and subcutaneous en-bloc edge resection and adjacent tissue reconstruction with some adjustments and accommodations made to the standard protocol because of the patient's complex spinal condition, multiple medical comorbidities including diabetes, multiple medication requirements, infection recurrence risk, requirement for ongoing and simultaneous anticoagulation treatment for upper extremity DVT and obese body habitus. Her postoperative care plan will include early mobilization, IV and then weaning to oral medication pain control, and home discharge planning starting on postoperative day #1 or #2 with plan for transfer back to inpatient rehabilitation to continue her already initiated program of recovery from the index procedure. She will use a circumferential four-quadrant buttressed compression brace during the initial phase of healing for stability and to limit angular motion. Lower extremity (particularly gentle hip and knee) motion is encouraged to promote longitudinal nerve motion and minimize fibrotic neural tethering during the fibrous consolidation and motion segment stabilization healing phase. she will require close follow-up in the office while at the rehabilitation facility. Antibiotic treatment protocols will be determined and followed by the infectious disease consult service with any assistance from the primary orthopaedic service that would be jeanetteoful. she will require close follow-up in the office while at the rehabilitation facility. Once she is home, outpatient rehabilitation program will be arranged through the office to begin slowly but progressively at approximately 6 weeks after surgery following clearance at initial postoperative follow-up assessments and assuming standard and uncomplicated completion of inpatient rehabilitation program and postoperative course. Indications, recommendations, plans and arrangements for spinal fusion osteogenesis stimulator as detailed in the operative report for the index procedure remain unchanged. Discharge Disposition: PACU CC: Dania HARRIS,Umer Rose; Ke HARRIS,Eric Lang; Vero Buck
[2017-11-02 06:54] VITALS: BP 140/65
[2017-11-02 08:14] LABS: ABSOLUTE BASOPHIL COUNT 0.1 /CUMM (0.0-0.2); ABSOLUTE GRANULOCYTE CT 6.1 /CUMM (1.4-6.5); ABSOLUTE LYMPH COUNT 1.4 /CUMM (1.2-3.4); ABSOLUTE MONOCYTE COUNT 1.2 /CUMM (0.10-0.60); BASOPHIL % 0.6 % (0.0-2.0); EOSINOPHIL % 10.3 % (0-5); HEMATOCRIT 24.4 % (37-47); MEAN CORPUSCULAR HGB 29.3 PG (27.0-31.0); MEAN CORPUSCULAR HGB CONC 33.7 G/DL (33.0-37.0); MEAN CORPUSCULAR VOLUME 87.1 FL (81.0-99.0); MEAN PLATELET VOLUME 7.3 FL (7.4-10.4); PLATELET COUNT 384 /CUMM (130-400); RBC DISTRIBUTION WIDTH 15.1 % (11.5-14.5); WHITE BLOOD CELL COUNT 9.8 /CUMM (4.8-10.8)
--- NOTE | 2017-11-02 09:20 | PN- Orthopedic ---
Subjective Subjective: sitting up in chair this am comfortably deneis cp, sob, c/o intermittent mild nausea no vomiting deneis fever/chils overnight ambulating with assistance picc line in place Objective Vital Signs and I&Os Vital Signs Date Time Temp Pulse Resp B/P B/P Pulse O2 O2 Flow FiO2 Mean Ox Delivery Rate 11/02 0810 90 140/65 11/02 0654 98.1 90 20 140/65 95 Room Air 11/02 0000 Room Air 11/01 2125 98.2 91 19 134/72 97 Room Air 11/01 1830 93 Room Air 11/01 1540 Room Air 11/01 1450 98.2 96 18 149/61 98 Room Air 11/01 0937 98 Room Air Intake & Output 11/02 1600 11/02 0800 11/02 0000 11/01 1600 11/01 0800 11/01 0000 Intake Total 275 321 2939 100 950 Output Total 600 900 530 14 Balance 240 350 380 -430 936 Intake, IV 80 Intake, Oral 063 431 6533 100 950 Number 1 3 1 1 2 Bowel Movements Output, 30 14 Drainage Output, Urine 600 900 500 Physical Exam: cv: rrr lungs: clear abd: soft,+bs ext; no calf tenderness bilat wound drainage improved on iv rocephin currently no leukocytosis Assessment/Plan Assessment/Plan orhto stable plan cont current abx course oob with brace advance diet d/c planning per attneding awaiting final on abx course per id Core Measures Venous Thromboembolism VTE Risk Factors Age>40 No Mechanical VTE Prophylaxis d/t N/A MechProphylax Ordered No VTE Pharm Prophylaxis d/t Surgical Contraindication
--- NOTE | 2017-11-02 12:17 | PN- Medicine Consult ---
Dimple Weller 11/02/17 1217: Assessment/PlanMedical Consult Assessment/Plan Assessment: This is a 71 year old female with past medical history significant for COPD not on home oxygen, asthma, MRSA pneumonia, [id number] diabetes mellitus, hypertension, hyperlipidemia, TIA, insomnia, GERD, osteoarthritis, PVD, carpal tunnel syndrome, bilateral lung nodules, occluded right ICA, and chronic back pain status post spinal fusion (2012) and lumbar fusion 10/07/2017 complicated with bradycardia, new onset of junctional rhythm resolved, respiratory distress, postop hemorrhagic anemia and right upper extremity DVT at site of PICC line ( that was placed for extreme difficulty finding a peripheral line) on warfarin. The patient was discharged on 10/22/2017 to [facility]. Patient is admitted under surgical service on 10/28/17 for intraoperative irrigation and debridement( performed on 10/29/17). Problem list: -Post op wound infection s/p intraoperative irrigation debridement (10/29/17); cultures + for Klebsiella -S/p lumbar laminectomy for spinal stenosis with a complicated hospital course -Recent RUE DVT in the setting of PICC line on warfarin; has been held pre-op and restarted post op, no AC bridge with heparin was started by surgery post op. -s/p INR reversal pre op (1 UFFP, vit K); subtherapeutic INR 1.10 -Chronic back pain on opioid therapy -Essential hypetension -Type 2 diabetes with neuropathy -H/o seasonal allergies and COPD Plan: Recommendations: Wound management as per Surgical team. -AB therapy as per ID recs -INR subtherapeutic, would consider some type of prophylaxis meanwhile. -AC post op as per surgery - Pain control as per surgery -Continue with cardizem, losartan, HCTZ, singulair, symbicort, omeprazole -Continue with Bowel regimen -Monitor blood glucose levels, continue insulin sliding scale -Consider checking hemoglobin A1c - PT evaluation and treatment Case to be discussed with attending Dr. Malone. Please refer to his addendum for further recs. Problem List: 1. Wound infection Subjective Subjective: The patient was seen and examined. She reports "feeling sick", having nausea w/o vomiting. Also has some pain at the site of surgery. Denies any headache, dizziness, lightheadedness, chest pain, shortness of breath, abdominal pain. VSS. Afebrile. Review of Systems Constitutional: Reports: no symptoms. Denies: see HPI. Objective Last 24 Hrs of Vital Signs/I&O Vital Signs Date Time Temp Pulse Resp B/P B/P Pulse O2 O2 Flow FiO2 Mean Ox Delivery Rate 11/02 1018 98 Room Air 11/02 0810 90 140/65 11/02 0654 98.1 90 20 140/65 95 Room Air 11/02 0000 Room Air 11/01 2125 98.2 91 19 134/72 97 Room Air 11/01 1830 93 Room Air 11/01 1540 Room Air 11/01 1450 98.2 96 18 149/61 98 Room Air Intake & Output 11/02 1600 11/02 0800 11/02 0000 Intake Total 240 950 Output Total 600 Balance 240 350 Intake, Oral 240 950 Number 1 3 Bowel Movements Output, Urine 600 Physical Exam General Appearance: well developed/nourished, no apparent distress, alert, awake Other Physical Findings: Head: atraumatic Ears, Nose, Throat: normal pharynx, normal ENT inspection, hearing grossly normal Neck: normal inspection, supple, full range of motion Respiratory: normal breath sounds, chest non-tender Cardiovascular: regular rate/rhythm, edema Gastrointestinal: normal bowel sounds, soft, non-tender Back: Dressing intact Extremities: normal inspection, normal capillary refill, normal range of motion, no edema Neurologic/Psych: no motor/sensory deficits, awake, alert, oriented x 3, 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 Current Medications: Current Medications Sig/Clementine Start time Last Medication Dose Route Stop Time Status Admin Acetaminophen 650 MG Q4P PRN 10/28 1900 AC PO Albuterol Sulfate 3 ML BID 10/31 2099 AC 11/02 INH 1009 Albuterol Sulfate 2 PUF Q6P PRN 10/28 1815 AC 11/01 INH 0820 Artificial Tears 2 GTT 4 TIMES/DAY 10/28 OPH 0811 Budesonide/ 2 PUF BID 10/28 Formoterol Fumarate INH 0706 Calcium Carbonate 1,000 MG Q6-PRN PRN 10/30 1945 AC 10/30 PO 2023 Ceftriaxone Sodium 2,000 MG DAILY 10/30 1200 AC 11/02 IV 0812 Diltiazem HCl 120 MG DAILY 10/29 0900 AC 11/02 PO 0810 Fluticasone 2 SPRAY DAILY 10/29 1039 AC 11/02 Propionate KIM 0811 Hydrochlorothiazide 25 MG DAILY 10/29 0900 AC 11/02 PO 0811 Hydrocodone Bitart/ 2 TAB Q4-6 PRN PRN 10/30 0245 AC 11/02 Acetaminophen PO 0944 Hydrocodone Bitart/ 1 TAB Q4P PRN 10/29 0130 AC 11/01 Acetaminophen PO 1229 Insulin Human Regular 6 UNITS .STK-MED ONE 11/01 1615 DC IV 11/01 1616 Insulin Human Regular 0 TIDAC/HS 10/30 0800 AC 11/02 SC 1226 Lactobacillus 1 CAP DAILY 11/02 09 AC 11/02 Acidophilus PO 0944 Loratadine 10 MG DAILY 10/29 0900 AC 11/02 PO 0810 Losartan Potassium 100 MG DAILY 10/29 0900 AC 11/02 PO 0810 Montelukast Sodium 10 MG 1800 10/29 1800 AC 11/01 PO 1622 Morphine Sulfate 4 MG Q3P PRN 10/30 0245 AC 10/31 IV 0006 Morphine Sulfate 15 MG BID 10/28 2100 AC 11/02 PO 0811 Nystatin 1 ALVARO TIDPRN PRN 11/02 1045 AC 11/02 TOP 1226 Omeprazole 40 MG DAILY AC 10/29 0700 AC 11/02 PO 0533 Ondansetron HCl 4 MG Q6P PRN 10/28 1900 AC IV Polyethylene Glycol 17 GM DAILY 10/28 2009 AC 11/02 PO 0810 Senna/Docusate Sodium 1 TAB BID PRN 10/28 2015 AC 10/31 PO 0006 Sodium Chloride 2 SPRAY Q4P PRN 10/29 1045 AC 11/01 KIM 0821 Warfarin Sodium 5 MG COUMADIN 1700 11/02 1700 AC PO 11/02 2359 Warfarin Sodium 5 MG COUMADIN 1700 ONE 11/01 1730 DC 11/01 PO 11/01 1731 1740 Results Last 24 Hrs Lab/Chucky Results: Laboratory Tests 11/02/17 0546: Anion Gap 7, Estimated GFR > 60, BUN/Creatinine Ratio 21.4, PT 12.0, INR 1.10, CBC w Diff NO MAN DIFF REQ, RBC 2.80 L, MCV 87.1, MCH 29.3, MCHC 33.7, RDW 15.1 H, MPV 7.3 L, Gran % 62.0, Lymphocytes % 14.6 L, Monocytes % 12.5 H, Eosinophils % 10.3 H, Basophils % 0.6, Absolute Granulocytes 6.1, Absolute Lymphocytes 1.4, Absolute Monocytes 1.2 H, Absolute Eosinophils 1.0, Absolute Basophils 0.1 Liv Malone 11/02/17 1533: Attending MD Review Statement Attending Sign Off Attending Cosign Statement: I have: reviewed [facility] EMR data, discussd w/resident/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 Other Findings: Spoke with the surgical pa and d/w them that the pt be started on sc heparin for dvt proph given her INR is low . She is going to d/w NSG attending about starting sc heparin.
[2017-11-02 14:00] VITALS: BP 141/81
--- NOTE | 2017-11-02 15:20 | PN- Infect Dx ---
Subjective Subjective: Afebrile. She complains of nausea, with no abdominal pain or diarrhea. She continues to have back pain, though notes some increase in her mobility. She complains of chronic dyspnea. Objective Last 24 Hrs of Vital Signs/I&O Vital Signs Date Time Temp Pulse Resp B/P B/P Pulse O2 O2 Flow FiO2 Mean Ox Delivery Rate 11/02 1400 98.8 98 98 141/81 99 Room Air 11/02 1018 98 Room Air 11/02 0810 90 140/65 11/02 0654 98.1 90 20 140/65 95 Room Air 11/02 0000 Room Air 11/01 2125 98.2 91 19 134/72 97 Room Air 11/01 1830 93 Room Air 11/01 1540 Room Air Intake & Output 11/02 1600 11/02 0800 11/02 0000 Intake Total 1000 240 950 Output Total 700 600 Balance 300 240 350 Intake, Oral 1000 240 950 Number 1 3 Bowel Movements Output, Urine 700 600 Physical Exam Other Physical Findings: She appears mildly uncomfortable but in no acute distress Lungs are clear Heart regular rhythm without a murmur Abdomen is soft, nontender with positive bowel sounds Back dressing intact Extremities PICC in the left upper extremity with no inflammation at the site Results Last 24 Hours of Lab Results: Laboratory Tests 11/02 0546 Chemistry Sodium (137 - 145 mmol/L) 136 L Potassium (3.5 - 5.1 mmol/L) 4.3 Chloride (98 - 107 mmol/L) 95 L Carbon Dioxide (22 - 30 mmol/L) 35 H Anion Gap (5 - 16) 7 BUN (7 - 17 mg/dL) 15 Creatinine (0.5 - 1.0 mg/dL) 0.7 Estimated GFR (>60 ml/min) > 60 BUN/Creatinine Ratio (7 - 25 %) 21.4 Coagulation PT (9.4 - 12.5 SEC) 12.0 INR (0.90 - 1.19) 1.10 Hematology CBC w Diff NO MAN DIFF REQ WBC (4.8 - 10.8 /CUMM) 9.8 RBC (4.20 - 5.40 /CUMM) 2.80 L Hgb (12.0 - 16.0 G/DL) 8.2 L Hct (37 - 47 %) 24.4 L MCV (81.0 - 99.0 FL) 87.1 MCH (27.0 - 31.0 PG) 29.3 MCHC (33.0 - 37.0 G/DL) 33.7 RDW (11.5 - 14.5 %) 15.1 H Plt Count (130 - 400 /CUMM) 384 MPV (7.4 - 10.4 FL) 7.3 L Gran % (42.2 - 75.2 %) 62.0 Lymphocytes % (20.5 - 51.1 %) 14.6 L Monocytes % (1.7 - 9.3 %) 12.5 H Eosinophils % (0 - 5 %) 10.3 H Basophils % (0.0 - 2.0 %) 0.6 Absolute Granulocytes (1.4 - 6.5 /CUMM) 6.1 Absolute Lymphocytes (1.2 - 3.4 /CUMM) 1.4 Absolute Monocytes (0.10 - 0.60 /CUMM) 1.2 H Absolute Eosinophils (0.0 - 0.7 /CUMM) 1.0 Absolute Basophils (0.0 - 0.2 /CUMM) 0.1 Last 24 Hours of Chucky Results: No new cultures Assessment/Plan ID Impression: Stable, with temperatures and white blood cell count now normal, on Ceftriaxone Day 4 of treatment for a surgical site infection/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 It may not be feasible to remove the hardware at this time but must consider the possibility that it is infected and that this infection may not clear without its removal. She will require a minimum of 6 weeks of antibiotics but, with the isolation of Klebsiella alone from the OR cultures, this can be done with oral Ciprofloxacin, which would allow the PICC to be removed upon discharge. Of note her CBC reveals an increasing eosinophil percentage, possibly secondary to the Ceftriaxone, given her Penicillin allergy. Suggestion: 1. Discontinue Ceftriaxone 2. Begin Ciprofloxacin 750 mg p.o. every 12 hours to plan on a 6 week course ( until December 10) 3. Weekly ESR while on Ciprofloxacin
[2017-11-02 21:14] VITALS: BP 140/72
[2017-11-03 06:58] VITALS: BP 142/66
[2017-11-03 08:49] LABS: PT 12.5 SEC (9.4-12.5)
--- NOTE | 2017-11-03 11:50 | PN- Medicine Consult ---
Assessment/PlanMedical Consult Assessment/Plan Assessment: This is a 71 year old female with past medical history significant for COPD not on home oxygen, asthma, MRSA pneumonia, [id number] diabetes mellitus, hypertension, hyperlipidemia, TIA, insomnia, GERD, osteoarthritis, PVD, carpal tunnel syndrome, bilateral lung nodules, occluded right ICA, and chronic back pain status post spinal fusion (2012) and lumbar fusion 10/07/2017 complicated with bradycardia, new onset of junctional rhythm resolved, respiratory distress, postop hemorrhagic anemia and right upper extremity DVT at site of PICC line ( that was placed for extreme difficulty finding a peripheral line) on warfarin. Patient is admitted under surgical service on 10/28/17 for intraoperative irrigation and debridement(performed on 10/29/17). Problem list: -Post op wound infection s/p intraoperative irrigation debridement (10/29/17); cultures + for Klebsiella -S/p lumbar laminectomy for spinal stenosis with a complicated hospital course -Recent RUE DVT in the setting of PICC line on warfarin; has been held pre-op and restarted post op, was not started on AC bridge with heparin by surgery post op. -s/p INR reversal pre op (1 UFFP, vit K); subtherapeutic INR 1.15 -Was started on SC heparin for DVT ppx by the surgery yesterday -Chronic back pain on opioid therapy -Essential hypetension -Type 2 diabetes with neuropathy -H/o seasonal allergies and COPD Plan: Recommendations: -Wound management as per Surgical team. -AB therapy as per ID recs -INR subtherapeutic would c/w DVT ppx meanwhile -AC post op as per surgery - Pain control as per surgery -Continue with cardizem, losartan, HCTZ, singulair, symbicort, omeprazole -Continue with Bowel regimen -Monitor blood glucose levels, continue insulin sliding scale -Consider checking hemoglobin A1c - PT evaluation and treatment Case to be discussed with attending Dr. Malone. Please refer to his addendum for further recs. Problem List: 1. Wound infection 2. DVT (deep venous thrombosis) Subjective Subjective: The patient was seen and examined. She feels better compared to yesterday, however, states that she is not at her baseline yet. Her abdominal upset is improved. Still has pain at the site of surgery which is well controlled with current pain regimen. Denies any headache, dizziness, lightheadedness, chest pain, shortness of breath, abdominal pain. VSS. Afebrile. Review of Systems Constitutional: Reports: no symptoms. Objective Last 24 Hrs of Vital Signs/I&O Vital Signs Date Time Temp Pulse Resp B/P B/P Pulse O2 O2 Flow FiO2 Mean Ox Delivery Rate 11/03 1115 Room Air 11/03 0857 66 116/72 11/03 0822 94 Room Air Room Air 11/03 0658 98.0 92 18 142/66 98 11/02 2114 99.0 93 140/72 95 Room Air 11/02 1905 96 Room Air 11/02 1400 98.8 98 98 141/81 99 Room Air Intake & Output 11/03 1600 11/03 0800 11/03 0000 Intake Total 520 490 Output Total 350 Balance 170 490 Intake, IV 40 10 Intake, Oral 480 480 Number 0 0 Bowel Movements Output, Urine 350 Physical Exam General Appearance: well developed/nourished, no apparent distress, alert, awake , comfortable Other Physical Findings: Head: atraumatic Ears, Nose, Throat: normal pharynx, normal ENT inspection, hearing grossly normal Neck: normal inspection, supple, full range of motion Respiratory: normal breath sounds, chest non-tender Cardiovascular: regular rate/rhythm, edema Gastrointestinal: normal bowel sounds, soft, non-tender Back: Dressing intact Extremities: normal inspection, normal capillary refill, normal range of motion, no edema Neurologic/Psych: no motor/sensory deficits, awake, alert, oriented x 3, 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 Current Medications: Current Medications Sig/Clementine Start time Last Medication Dose Route Stop Time Status Admin Acetaminophen 650 MG Q4P PRN 10/28 190 AC PO Albuterol Sulfate 3 ML BID 10/31 INH 0821 Albuterol Sulfate 2 PUF Q6P PRN 10/28 181 AC 11/01 INH 0820 Artificial Tears 2 GTT 4 TIMES/DAY 10/28 OPH 1236 Budesonide/ 2 PUF BID 10/28 2099 AC 11/03 Formoterol Fumarate INH 0843 Calcium Carbonate 1,000 MG Q6-PRN PRN 10/30 194 AC 10/30 PO 2022 Ceftriaxone Sodium 2,000 MG DAILY 10/30 1200 DC 11/03 IV 0847 Ciprofloxacin 750 MG BID 05/22 2100 AC PO 11/07 2059 Diltiazem HCl 120 MG DAILY 10/29 0900 AC 11/03 PO 0857 Fluticasone 2 SPRAY DAILY 10/29 1039 AC 11/03 Propionate KIM 0845 Heparin Sodium 5,000 UNIT Q8 11/02 1445 AC 11/03 (Porcine) SC 1236 Hydrochlorothiazide 25 MG DAILY 10/29 0900 AC 11/03 PO 0857 Hydrocodone Bitart/ 2 TAB Q4-6 PRN PRN 10/30 0245 AC 11/03 Acetaminophen PO 1042 Hydrocodone Bitart/ 1 TAB Q4P PRN 10/29 0130 AC 11/01 Acetaminophen PO 1229 Insulin Human Regular 4 UNITS .STK-MED ONE 11/02 1701 DC IV 11/02 1702 Insulin Human Regular 0 TIDAC/HS 10/30 08 AC 11/03 SC 1236 Lactobacillus 1 CAP DAILY 11/02 0900 AC 11/03 Acidophilus PO 0857 Loratadine 10 MG DAILY 10/29 0900 AC 11/03 PO 0857 Losartan Potassium 100 MG DAILY 10/29 0900 AC 11/03 PO 0857 Montelukast Sodium 10 MG 1800 10/29 1800 AC 11/02 PO 1721 Morphine Sulfate 4 MG Q3P PRN 10/30 0245 AC 10/31 IV 0006 Morphine Sulfate 15 MG BID 10/28 2100 AC 11/03 PO 0857 Nystatin 1 ALVARO TIDPRN PRN 11/02 1045 AC 11/03 TOP 1047 Omeprazole 40 MG DAILY AC 10/29 0700 AC 11/03 PO 0633 Ondansetron HCl 4 MG Q6P PRN 10/28 1900 AC 11/03 IV 0900 Polyethylene Glycol 17 GM DAILY 10/28 2009 AC 11/03 PO 0844 Senna/Docusate Sodium 1 TAB BID PRN 10/28 2014 AC 11/02 PO 2117 Sodium Chloride 2 SPRAY Q4P PRN 10/29 1045 AC 11/03 KIM 0847 Warfarin Sodium 5 MG COUMADIN 1700 11/02 1700 CAN PO 11/02 2359 Warfarin Sodium 7.5 MG COUMADIN 1700 ONE 11/02 1700 DC 11/02 PO 11/02 1701 1721 Results Last 24 Hrs Lab/Chucky Results: Laboratory Tests 11/03/17 0640: PT 12.5, INR 1.15
--- NOTE | 2017-11-03 12:45 | Patient Discharge Instructions ---
Discharge Instructions General Discharge Information You were seen/treated for: Lumbar wound sepsis You had these procedures: Irrigation and debridement lumbar wound Watch for these problems: Temperature greater than 101.5, increased wound drainage, wound changes Call Surgeon to remove: Eris No bath, but you may shower: Yes Other wound care: Daily dry dressings to lumbar wound, and as needed for increased drainage Diet Continue normal diet: Yes Activity Activity Limited to: Weight bear as tolerated Other activity limits: May be out of bed with back brace 2-3 times a day Acute Coronary Syndrome Inclusion Criteria At DC or during hospital stay patient has or had the following: ACS DIAGNOSIS No Discharge Core Measures Meds if any: Prescribed or Continued at Discharge Meds if any: NOT Prescribed or Continued at Discharge Congestive Heart Failure Inclusion Criteria At DC or during hospital stay patient has or had the following: CHF DIAGNOSIS No Discharge Core Measures Meds if any: Prescribed or Continued at Discharge Meds if any: NOT Prescribed or Continued at Discharge Cerebrovascular accident Inclusion Criteria At DC or during hospital stay patient has or had the following: CVA/TIA Diagnosis No Discharge Core Measures Meds if any: Prescribed or Continued at Discharge Meds if any: NOT Prescribed or Continued at Discharge Venous thromboembolism Inclusion Criteria VTE Diagnosis No VTE Type NONE VTE Confirmed by (Test) UNILATERAL VENOUS DOPPLER Discharge Core Measures - Per Current guidelines, there needs to be overlap - treatment for the first 5 days of Warfarin therapy. - If discharged on Warfarin prior to 5 days of - overlap therapy, the patient will need to be - assessed for post discharge needs including - *Post discharge parental anticoagulation - *Warfarin and/or parental anticoagulation education - *Follow up date to check INR post discharge At least 5 days overlap therapy as Inpatient Yes Meds if any: Prescribed or Continued at Discharge Note: Overlap Therapy is Warfarin and Anticoagulant Meds if any: NOT Prescribed or Continued at Discharge
--- NOTE | 2017-11-03 12:58 | Discharge Summary ---
See Addendum Visit Information Visit Dates Admission Date: 10/28/17 Discharge Date: 11/03/17 Hospital Course Course Attending Physician: Dania HARRIS,Ray Rose Primary Care Physician: Radha HARRIS,Flavio Chaudhry Consulting Request: Consulting Specialty: Infectious Disease Consulting Physician: Eron Roche Reason for Consult: antibiotic coverage Hospital Course: Ms. Eduardo is a 71-year-old female who was admitted on 10/28/2017 for increased lumbar wound drainage status post lumbar fusion 2 weeks prior. She was taken to the operating room on 10/29/2017 and underwent irrigation and debridement of lumbar wound with placement of Leo-Lawson drainage. Postop day 1 a PICC line was placed for the possible need of intravenous antibiotics and IV access. Also on postop day 1 infectious disease consult was obtained by Dr. Eron Roche who follow this patient during this hospital admission. Also during her stay she was out of bed with physical therapy however required maximum assistance secondary to pain. Pain medication was titrated for activity. Also wound cultures were obtained which final bacteria was sensitive to ciprofloxacin at which time it was determined by infectious disease team that she may continue on this ciprofloxacin by mouth for 6 weeks post discharge. Her hospital stays otherwise unremarkable. Allergies: Coded Allergies: Sulfa (Sulfonamide Antibiotics) (Intermediate, SKIN TURNS PURPLE/HOT 10/28/17) Penicillins (Mild, ITCHING 10/28/17) aspirin (HX GASTRITIS 10/28/17) ASA->BLEEDING atorvastatin (PER PT MED LIST 10/28/17) prednisone (Severe, VISION CHANGES 10/28/17) Uncoded Allergies: ENVIRONMENTAL (UNKNOWN 07/20/13) MULTIPLE ANTIBIOTICS (UNKNOWN 07/20/13) Significant Procedures: Irrigation and debridement of lumbar wound, PICC line placement Pertinent Lab Results: None Disposition Summary Disposition Principal Diagnosis: Lumbar wound sepsis Additional Diagnosis: Right upper extremity DVT Discharge Disposition: SNF Discharge Instructions General Discharge Information Code Status: Full Code Patient's Diet: Diabetic diet Patient's Activity: May be out of bed weightbearing as tolerated bilateral lower extremities, with back brace as needed Follow-Up Instructions/Appts: #1 ciprofloxacin 750 mg by mouth twice a day for 6 weeks to stop on 12/10/2017 #2 dry sterile dressing to lumbar wound daily, and when necessary for increased drainage #3 a weekly ESR should be drawn, results to Dr. Eron Roche #4 Coumadin by mouth daily to maintain an INR between 2 and 3 for right upper extremity DVT, she should continue her subcutaneous heparin 5000 units 3 times a day until INR is therapeutic #5 Coumadin dosage be titrated based on daily INR Copies To: Dania HARRIS,Ray Rose; Alfred HARRIS,Eron Kang
--- NOTE | 2017-11-03 14:00 | PN- Infect Dx ---
Subjective Subjective: Afebrile. She continues to complain of nausea/GI upset. Her back pain persists. She also notes chronic dyspnea. Objective Last 24 Hrs of Vital Signs/I&O Vital Signs Date Time Temp Pulse Resp B/P B/P Pulse O2 O2 Flow FiO2 Mean Ox Delivery Rate 11/03 1115 Room Air 11/03 0857 66 116/72 11/03 0822 94 Room Air Room Air 11/03 0658 98.0 92 18 142/66 98 11/02 2114 99.0 93 140/72 95 Room Air 11/02 1905 96 Room Air 11/02 1400 98.8 98 98 141/81 99 Room Air Intake & Output 11/03 1600 11/03 0800 11/03 0000 Intake Total 520 490 Output Total 350 Balance 170 490 Intake, IV 40 10 Intake, Oral 480 480 Number 0 0 Bowel Movements Output, Urine 350 Physical Exam Other Physical Findings: She appears comfortable in no acute distress Lungs are clear Heart regular rhythm with no murmur Back dressing intact Extremities PICC in the left upper extremity with no inflammation at the site Results Last 24 Hours of Lab Results: Laboratory Tests 11/03 0640 Coagulation PT (9.4 - 12.5 SEC) 12.5 INR (0.90 - 1.19) 1.15 Last 24 Hours of Chucky Results: No recent cultures Assessment/Plan ID Impression: Stable, with temperatures and white blood cell count normal, on Ceftriaxone Day 5 of treatment for a surgical site infection/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 It may not be feasible to remove the hardware at this time but must consider the possibility that it is infected and that this infection may not clear without its removal. She will require a minimum of 6 weeks of antibiotics but, as discussed, this can be done with oral Ciprofloxacin, which would allow the PICC to be removed. Of note her recent CBC revealed an increasing eosinophil percentage, possibly secondary to the Ceftriaxone, given her Penicillin allergy. Suggestion: 1. Discontinue Ceftriaxone 2. Begin Ciprofloxacin 750 mg p.o. every 12 hours to plan on a 6 week course ( until December 10) 3. Remove PICC if she tolerates the Ciprofloxacin 4. Weekly ESR while on Ciprofloxacin
[2017-11-03] MEDS ORDERED: CIPRO500 M1 PO (14:03)
[2017-11-03 14:45] VITALS: BP 116/72
--- NOTE | 2017-11-06 17:31 | Operative Report ---
Operative/Inv Procedure Report Surgery Date: 10/29/17
== END 2017-11-03 15:37 | DRG 464 ==
LOC: ERH 15:32 → ERHI 15:49 → 2NB 15:49 → ENRESERV 18:14 → ENTRNSPT 21:23 → EDTRNSPTSTS 21:41 → EDTRNSPT 21:41 → 2NB 21:49 → CMPTRNSPT 21:58 → ENTRNSPT 10-29 18:16 → EDTRNSPT 10-29 18:26 → EDTRNSPTSTS 10-29 18:26 → CMPTRNSPT 10-29 18:49 → 2NB 11-03 15:37
PROVIDERS: Emergency Medicine; Physician Assistant; Physician Assistant Surgical
PROC: 0JB70ZZ Excision of Back Subcutaneous Tissue and Fascia, Open Approach (ICD-10-PCS; principal; 2017-10-29)
PROC: 30233K1 Transfusion of Nonautologous Frozen Plasma into Peripheral Vein, Percutaneous Approach (ICD-10-PCS; principal; 2017-10-29)
PROC: 0HB6XZZ Excision of Back Skin, External Approach (ICD-10-PCS; principal; 2017-10-29)
PROC: 0J9730Z Drainage of Back Subcutaneous Tissue and Fascia with Drainage Device, Percutaneous Approach (ICD-10-PCS; principal; 2017-10-29)
DX: M46.26 Osteomyelitis of vertebra, lumbar region (principal); T81.4XXA Infection following a procedure, initial encounter; E11.52 Type 2 diabetes mellitus with diabetic peripheral angiopathy with gangrene; I82.621 Acute embolism and thrombosis of deep veins of right upper extremity; T81.31XA Disruption of external operation (surgical) wound, not elsewhere classified, initial encounter; E11.40 Type 2 diabetes mellitus with diabetic neuropathy, unspecified; I11.9 Hypertensive heart disease without heart failure; L08.9 Local infection of the skin and subcutaneous tissue, unspecified; J44.9 Chronic obstructive pulmonary disease, unspecified; Z79.84 Long term (current) use of oral hypoglycemic drugs; Z86.718 Personal history of other venous thrombosis and embolism; Z79.01 Long term (current) use of anticoagulants; D72.829 Elevated white blood cell count, unspecified; K21.9 Gastro-esophageal reflux disease without esophagitis; E78.5 Hyperlipidemia, unspecified; M19.90 Unspecified osteoarthritis, unspecified site; G89.29 Other chronic pain; M54.89 Other dorsalgia; B96.1 Klebsiella pneumoniae [K. pneumoniae] as the cause of diseases classified elsewhere; Z88.6 Allergy status to analgesic agent; Z88.0 Allergy status to penicillin; Z88.2 Allergy status to sulfonamides; Z88.8 Allergy status to other drugs, medicaments and biological substances; Z79.891 Long term (current) use of opiate analgesic; Z79.51 Long term (current) use of inhaled steroids; Z98.51 Tubal ligation status; Z98.1 Arthrodesis status; G47.00 Insomnia, unspecified; R91.8 Other nonspecific abnormal finding of lung field; J45.909 Unspecified asthma, uncomplicated; Z86.73 Personal history of transient ischemic attack (TIA), and cerebral infarction without residual deficits; R79.89 Other specified abnormal findings of blood chemistry; E66.9 Obesity, unspecified; Z68.37 Body mass index [BMI] 37.0-37.9, adult
CPT/HCPCS: 87070; 87075; 36415; 36592; 71045; 82436; 87040; 87086; 93005; 93010; 97110-GO; 97116-GO; 97161-GP; C1769; J0131; J0696; J1644; J1815; J2001; J2405; J3370; J3490; J7040; J7042

== ENCOUNTER 2017-11-30 09:10 | Inpatient (IN) | payer OTHER, MEDICARE ==
[~2017-11-30] VITALS: Ht 149.9 cm; Wt 82.7 kg
[~2017-11-30 09:10] MED LIST changes: +CIPRO500 M1 PO; +LOSARTAN-HCTZ1 EAC2 PO
--- NOTE | 2017-11-30 09:17 | ED NECK/BACK PAIN COMPLAINT ---
History of Present Illness General Chief Complaint: Low Back Pain/Injury Stated Complaint: SENT BY [facility] FOR POSSIBLE ADMISSION Source: patient Exam Limitations: no limitations Vital Signs & Intake/Output Vital Signs & Intake/Output Vital Signs Date Time Temp Pulse Resp B/P B/P Pulse O2 O2 Flow FiO2 Mean Ox Delivery Rate 11/30 1245 97.8 68 18 152/62 98 11/30 1207 98.0 64 18 176/66 98 Room Air 11/30 0916 97.5 69 20 150/67 95 Room Air Allergies Coded Allergies: Sulfa (Sulfonamide Antibiotics) (Intermediate, SKIN TURNS PURPLE/HOT 10/28/17) Penicillins (Mild, ITCHING 10/28/17) aspirin (HX GASTRITIS 10/28/17) ASA->BLEEDING atorvastatin (PER PT MED LIST 10/28/17) prednisone (Severe, VISION CHANGES 10/28/17) Uncoded Allergies: ENVIRONMENTAL (UNKNOWN 07/20/13) MULTIPLE ANTIBIOTICS (UNKNOWN 07/20/13) Reconcile Medications Albuterol Sulfate (Proair Hfa) 90 MCG HFA.AER.AD 2 PUF INH PRN ASTHMA/ ALLERGIES (Reported) Ascorbate Calcium (Vitamin C) 500 MG TABLET 1 TAB PO DAILY SUPPLEMENT ( Reported) Azelastine/Fluticasone (Dymista Nasal [place]) 137 MCG-50 MCG/SPRAY SPRAY.PUMP 1 SPRAY NASB PRN ALLERGIES (Reported) Budesonide/Formoterol Fumarate (Symbicort 160-4.5 Mcg Inhaler) 160 MCG-4.5 MCG/ ACTUATION HFA.AER.AD 2 PUFF INH BID ASTHMA/ALLERGIES (Reported) Cetirizine HCl (Zyrtec) 10 MG CAPSULE 1 CAP PO DAILY ALLERGIES (Reported) Cholecalciferol (Vitamin D3) (Vitamin D) 1,000 UNIT TABLET 1 TAB PO DAILY SUPPLEMENT (Reported) Ciprofloxacin HCl 750 MG TABLET 1 TAB PO BID ANTIBIOTIC, INFECTION (Reported) Cyclobenzaprine HCl 5 MG TABLET 1 TAB PO QHS MUSCLE SPASMS (Reported) Diltiazem HCl (Cartia Xt) 120 MG CAP.ER.24H 1 CAP PO DAILY CARDIAC (Reported) Glimepiride 2 MG TABLET 1.5 TAB PO DAILY DM (Reported) Hydrocodone/Acetaminophen (Hydrocodon-Acetaminophen 5-325) 5 MG-325 MG TABLET 1 TAB PO Q4 HRS NEEDED PRN PAIN SCALE 4-6 (MODERATE) Hydrocodone/Acetaminophen (Hydrocodon-Acetaminophen 5-325) 5 MG-325 MG TABLET 2 TAB PO Q4 HRS NEEDED PRN PAIN SCALE 7-10 (SEVERE) Iron Carb,Gl/FA/B12/C/Docusate (Ferralet 90 Tablet) 90 MG-1 MG-12 MCG-120 MG-50 MG TABLET 1 TAB PO DAILY IRON, VITAMIN (Reported) Lactobacillus Acidophilus (Acidophilus) 1 EACH CAPSULE 1 CAP PO DAILY GI ( Reported) Losartan/Hydrochlorothiazide (Losartan-Hctz 100-25 MG Tab) 100 MG-25 MG TABLET 1 TAB PO DAILY HTN (Reported) Melatonin 10 MG CAPSULE 1 CAP PO QPM SLEEP (Reported) Montelukast Sodium (Singulair) 10 MG TABLET 1 TAB PO DAILY ALLERGIES ( Reported) Multiple Vitamin (Multivitamins) 1 EACH TABLET 1 TAB PO DAILY SUPPLEMENT ( Reported) Multivit-Min/FA/Lutein/Zeaxant (Macular Vitamin Tablet) 500 MCG-5 MG-1 MG TABLET 1 TAB PO DAILY SUPPLEMENT (Reported) Omeprazole 40 MG CAPSULE.DR 1 CAP PO DAILY AC GERD (Reported) Ondansetron HCl (Zofran) 4 MG TABLET 1 TAB PO TID NAUSEA (Reported) Polyethylene Glycol 3350 (Miralax) 17 GRAM/DOSE POWDER 17 GM PO DAILY opiod constipation Sennosides/Docusate Sodium (Senna S Tablet) 8.6 MG-50 MG TABLET 2 TAB PO QPM CONSTIPATION (Reported) Sitagliptin Phosphate (Januvia) 100 MG TABLET 1 TAB PO DAILY DM (Reported) Triage Nurses Notes Reviewed? yes Onset: Gradual Duration: getting worse Timing: recent history Quality/Severity: moderate Location: lumbar spine Radiation: none Loss of Consciousness: no loss of consciousness HPI: Patient is a 72-year-old female who presents emergency room with request by orthopedic surgeon Ray Najera MD for concerns of spinal fusion and abscess in which records indicate that patient recently received a MRI showing fluid collection near the hardware placement patient currently is on ciprofloxacin Initial surgical intervention was performed in September by Ray Najera MD patient approximately one month ago was admitted under Dr. Najera service for infected hardware Patient states that she has been having purulent discharge from the incision site of her back and persistent 5/10 localized pain. Denies any fever chills (Eamon Matos) Past History Travel History Traveled to [place] past 21 day No Medical History Any Pertinent Medical History? 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 No (Eamon Matos) Review of Systems Review of Systems Constitutional: Reports: see HPI. Eyes: Reports: no symptoms. Ears, Nose, Throat, Mouth: Reports: no symptoms. Respiratory: Reports: no symptoms. Cardiovascular: Reports: no symptoms. Gastrointestinal/Abdominal: Reports: no symptoms. Musculoskeletal: Reports: see HPI. Skin: Reports: see HPI. Neurological/Psychological: Reports: no symptoms. All Other Systems: Reviewed and Negative (Eamon Matos) Physical Exam Physical Exam General Appearance: no apparent distress, alert, comfortable Head: atraumatic Eyes: Bilateral: normal appearance. Ears, Nose, Throat, Mouth: moist mucous membrane Neck: normal inspection Respiratory: normal breath sounds Cardiovascular: regular rate/rhythm Gastrointestinal: normal bowel sounds, soft, non-tender Diagram Body: 1) Noted erythema warmth point tenderness and mild purulence from the incision site Core Measures CVA/TIA Diagnosis: No (Eamon Matos) Progress Differential Diagnosis: C spine injury, carotid dissection, cauda equina syn, herniated disc, myofascial strain, pyelo/UTI, sciatica, spinal cord inj, thoracic outlet syn, T/L spine injury, ureterolithiasis Plan of Care: Orders Procedure Date/time Status CBC WITHOUT DIFFERENTIAL 12/02 0600 Active BASIC ELECTROLYTES PLUS BUN&CR 12/02 0600 Active Nothing by Mouth 11/30 L Complete Nothing by Mouth 11/30 D Active Weight 11/30 1318 Active Vital Signs 11/30 1318 Active Teach/Educate 11/30 1318 Active Pain Treatment and Response 11/30 1318 Active Nutritional Intake, Monitor 11/30 1318 Active Isolation 11/30 1318 Active Intake & Output 11/30 1318 Complete Patient Care Conference 11/30 1318 Active Activity/Ambulation 11/30 1318 Complete ED Holding Orders 11/30 1145 Active Admit to inpatient 11/30 1145 Active Pathway - chart 11/30 1108 Active Patient Data 11/30 1108 Active FingerStick- Glucose 11/30 1051 Active Code Status 11/30 1047 Active EKG 11/30 1046 Active PARTIAL THROMBOPLASTIN TIME 11/30 0915 Complete PROTHROMBIN TIME 11/30 0915 Complete COMPREHENSIVE METABOLIC PANEL 11/30 0915 Complete CBC WITHOUT DIFFERENTIAL 11/30 0915 Complete TYPE & SCREEN (NOT X-MATCH) 11/30 0915 Complete VTE Mechanical Prophylaxis 11/30 UNK Active Vital Signs 11/30 UNK Complete Intake & Output 11/30 UNK Active Activity/Ambulation 11/30 UNK Active Current Medications Sig/Clementine Start time Last Medication Dose Stop Time Status Admin Diltiazem HCl 120 MG DAILY 12/01 0900 AC (Cardizem CD) Glimepiride 3 MG DAILY 12/01 0900 AC (Amaryl) Hydrochlorothiazide 25 MG DAILY 12/01 0900 AC (Hydrodiuril) Losartan Potassium 100 MG DAILY 12/01 0900 AC (Cozaar) Sitagliptin Phosphate 100 MG DAILY 12/01 0900 AC (JANUVIA) Budesonide/ 2 PUF BID 11/30 2100 AC Formoterol Fumarate (Symbicort) Montelukast Sodium 10 MG AT BEDTIME 11/30 2100 AC (Singulair) Albuterol Sulfate 2 PUF Q4P PRN 11/30 1300 AC (Ventolin) Pantoprazole Sodium 40 MG DAILY 11/30 1251 AC (Protonix) Acetaminophen 1,000 MG Q6P PRN 11/30 1100 AC 11/30 (Ofirmev) 1132 N/A 1 UNIT (No Carrier) Morphine Sulfate 2 MG Q2P PRN 11/30 1100 AC (MORPHINE SULFATE) Ondansetron HCl 4 MG Q8P PRN 11/30 1100 AC (Zofran) Sodium Chloride 1,000 ML .[id number] 11/30 1100 AC 11/30 (Normal Saline 0.9%) 1132 Laboratory Tests 11/30/17 1056: Anion Gap 9, Estimated GFR > 60, BUN/Creatinine Ratio 23.8, Glucose 108 H, Calcium 9.6, Total Bilirubin 0.2, AST 27, ALT 26, Alkaline Phosphatase 101, Total Protein 6.5, Albumin 3.5, Globulin 3.0, Albumin/Globulin Ratio 1.2, PT 22.9 H, INR 2.09 H, APTT 31, CBC w Diff NO MAN DIFF REQ, RBC 3.80 L, MCV 83.7 , MCH 27.7, MCHC 33.1, RDW 14.6 H, MPV 7.3 L, Gran % 69.2, Lymphocytes % 18.2 L, Monocytes % 9.7 H, Eosinophils % 2.5, Basophils % 0.4, Absolute Granulocytes 6.4, Absolute Lymphocytes 1.7, Absolute Monocytes 0.9 H, Absolute Eosinophils 0.2, Absolute Basophils 0 0920- MJ GARCIA IS aware of patient's presentation to the emergency room and WILL EVALUATE Differential diagnoses include spinal abscess cellulitis Was aware to me that no antibiotics were advised in the emergency room Patient is currently resting comfortably at bedside afebrile No concerns upon admission of septic shock or severe sepsis Diagnostic Imaging: Viewed by Me: Radiology Read. Radiology Impression: acute abnormality (2) Comments: PATIENT: TAMMY FOSTER PRESENT AGE: 72 PATIENT ACCOUNT NO: [id number] : 43 LOCATION: [facility] ORDERING PHYSICIAN: Eamon CRAWLEY SERVICE DATE: 11/30/17 EXAM TYPE: RAD - XRY-LUMBOSACRAL SPINE AP & LAT EXAMINATION: XR LUMBOSACRAL SPINE CLINICAL INFORMATION: Infection of lumbosacral spine COMPARISON: MRI of the lumbosacral spine 11/25/2017. CT abdomen pelvis . Lumbosacral spine films from 10/07/2017 TECHNIQUE: Frontal and lateral views of the lumbosacral spine FINDINGS: Posterior spinal fusion hardware is present from L2 to S1 with paired posterior fusion rods and hooks along with paired transpedicular pedicle screws from L2 to S1. Metallic spacer material is seen at the L2-L3 disc space and at the L5-S1 disc space. Nonmetallic spacer material is seen at L3-L4 and L4-L5. The hardware appears grossly intact, without evidence for loosening or failure. There is diffuse osteopenia. The L2 vertebral body is extensively demineralized and not well seen on the current films.. There is increased loss of vertebral body height along with demineralization, as seen on the recent MRI. This has progressed since the CT scan of 10/12/2017. Diffuse osteopenia of the remaining vertebral bodies limits visualization but alignment and vertebral body height is grossly maintained. IMPRESSION: Increased demineralization and compression deformity of the L2 vertebral body is consistent with the MRI findings. The hardware appears grossly intact with no evidence for hardware failure, loosening or displacement. DICTATED BY: Arcelia Gotti MD DATE/TIME DICTATED:11/30/171015 [employer] PRODUCTION LINE:SANGEETA DATE/TIME TRANSCRIBED:11/30/171015 (Eamon Matos) Departure Departure Disposition: STILL A PATIENT Condition: Stable Clinical Impression Primary Impression: Hardware complicating wound infection Secondary Impressions: Cellulitis of back, Spinal abscess Referrals: Flavio Garcia MD (PCP/Family) Departure Forms: Customer Survey General Discharge Information Admission Note Spoke With: Dania HARRIS,Ray Rose Documentation of Exam: Documentation of any treatments & extenuating circumstances including Concerns Regarding Discharge (functional status, medication knowledge or non-compliance, living conditions, etc.) that warrant an admission rather than observation: [ Patient requires surgical washout, cultures pending, pain management and IV antibiotics, orthopedic consultation] (Eamon Matos) PA/LAST PICKER Co-Sign Statement Statement: ED Attending supervision documentation- [X] I saw and evaluated the patient. I have also reviewed all the pertinent lab results and diagnostic results. I agree with the findings and the plan of care as documented in the PA's/LAST PICKER's documentation. [X] I have reviewed the ED Record and agree with the PA's/LAST PICKER's documentation. [] Additions or exceptions (if any) to the PAs/LAST PICKER's note and plan are summarized below: [Patient is to be admitted for an infected lumbar wound. Patient will need operative debridement.] (Saundra HARRIS,Dar Chapa) Critical Care Note Critical Care Note Critical Care Time: 30-74 min (Eamon Matos)
--- NOTE | 2017-11-30 10:34 | RADIOLOGY REPORT ---
EXAMINATION: XR LUMBOSACRAL SPINE CLINICAL INFORMATION: Infection of lumbosacral spine COMPARISON: MRI of the lumbosacral spine 11/25/2017. CT abdomen pelvis . Lumbosacral spine films from 10/07/2017 TECHNIQUE: Frontal and lateral views of the lumbosacral spine FINDINGS: Posterior spinal fusion hardware is present from L2 to S1 with paired posterior fusion rods and hooks along with paired transpedicular pedicle screws from L2 to S1. Metallic spacer material is seen at the L2-L3 disc space and at the L5-S1 disc space. Nonmetallic spacer material is seen at L3-L4 and L4-L5. The hardware appears grossly intact, without evidence for loosening or failure. There is diffuse osteopenia. The L2 vertebral body is extensively demineralized and not well seen on the current films.. There is increased loss of vertebral body height along with demineralization, as seen on the recent MRI. This has progressed since the CT scan of 10/12/2017. Diffuse osteopenia of the remaining vertebral bodies limits visualization but alignment and vertebral body height is grossly maintained. IMPRESSION: Increased demineralization and compression deformity of the L2 vertebral body is consistent with the MRI findings. The hardware appears grossly intact with no evidence for hardware failure, loosening or displacement.
[2017-11-30 11:05] LABS: ABSOLUTE BASOPHIL COUNT 0 /CUMM (0.0-0.2); ABSOLUTE EOSINOPHIL COUNT 0.2 /CUMM (0.0-0.7); ABSOLUTE GRANULOCYTE CT 6.4 /CUMM (1.4-6.5); ABSOLUTE LYMPH COUNT 1.7 /CUMM (1.2-3.4); ABSOLUTE MONOCYTE COUNT 0.9 /CUMM (0.10-0.60); BASOPHIL % 0.4 % (0.0-2.0); EOSINOPHIL % 2.5 % (0-5); GRANULOCYTE % 69.2 % (42.2-75.2); HEMATOCRIT 31.8 % (37-47); MEAN CORPUSCULAR HGB 27.7 PG (27.0-31.0); MEAN CORPUSCULAR HGB CONC 33.1 G/DL (33.0-37.0); MEAN CORPUSCULAR VOLUME 83.7 FL (81.0-99.0); MEAN PLATELET VOLUME 7.3 FL (7.4-10.4); PLATELET COUNT 334 /CUMM (130-400); RBC DISTRIBUTION WIDTH 14.6 % (11.5-14.5); WHITE BLOOD CELL COUNT 9.2 /CUMM (4.8-10.8)
[2017-11-30 11:39] LABS: PT 22.9 SEC (9.4-12.5); PTT 31 SEC (25-37)
[2017-11-30] MEDS ORDERED: CIPROFLOXACIN750 M1 PO (11:44)
[2017-11-30] MEDS ORDERED: FERRALET 90 TA1 EACH PO (11:45)
[2017-11-30] MEDS ORDERED: ZOFRAN4 M2 PO (11:47)
[2017-11-30] MEDS ORDERED: SENNA S TABLET1 EACH PO (11:48)
[2017-11-30] MEDS ORDERED: ACIDOPHILUS1 EACH PO (11:51)
[2017-11-30 12:45] VITALS: BP 152/62
--- NOTE | 2017-11-30 12:47 | RADIOLOGY REPORT ---
EXAMINATION: XR PORTABLE CHEST CLINICAL INFORMATION: Preop COMPARISON: 10/30/2017 portable chest x-ray TECHNIQUE: Portable AP frontal view of the chest was obtained. FINDINGS: There is a PICC line with the tip in the region of the junction of superior vena cava and brachiocephalic vein. This is similar to prior. Lungs are mildly hypoexpanded but clear with no focal consolidation or atelectasis. Heart size and pulmonary vascularity is unchanged. There is no pneumothorax or pleural effusion IMPRESSION: Hypoexpanded but grossly clear lungs with no acute findings. Left-sided PICC line in place as described.
--- NOTE | 2017-11-30 12:54 | Admission Core Measures ---
Acute Coronary Syndrome (CM) ACS Core Measures Acute Coronary Syndrome Diagnosis No Congestive Heart Failure (NEW) CHF Core Measures Congestive Heart Failure Diagnosis No Cerebrovascular Accident CVA Core Measures CVA/TIA Diagnosis No Venous Thromboembolism VTE Core Barbara (View Protocol) VTE Risk Factors Surgery No Mechanical VTE Prophylaxis d/t N/A MechProphylax Ordered No VTE Pharm Prophylaxis d/t Surgical Contraindication Problem List As ranked by this Provider includes Assessment & Plan 1. Wound infection HOME MEDS Home Med List Albuterol Sulfate (Proair Hfa) 90 MCG HFA.AER.AD 2 PUF INH PRN ASTHMA/ ALLERGIES (Reported) Ascorbate Calcium (Vitamin C) 500 MG TABLET 1 TAB PO DAILY SUPPLEMENT ( Reported) Azelastine/Fluticasone (Dymista Nasal [place]) 137 MCG-50 MCG/SPRAY SPRAY.PUMP 1 SPRAY NASB PRN ALLERGIES (Reported) Budesonide/Formoterol Fumarate (Symbicort 160-4.5 Mcg Inhaler) 160 MCG-4.5 MCG/ ACTUATION HFA.AER.AD 2 PUFF INH BID ASTHMA/ALLERGIES (Reported) Cetirizine HCl (Zyrtec) 10 MG CAPSULE 1 CAP PO DAILY ALLERGIES (Reported) Cholecalciferol (Vitamin D3) (Vitamin D) 1,000 UNIT TABLET 1 TAB PO DAILY SUPPLEMENT (Reported) Ciprofloxacin HCl 750 MG TABLET 1 TAB PO BID ANTIBIOTIC, INFECTION (Reported) Cyclobenzaprine HCl 5 MG TABLET 1 TAB PO QHS MUSCLE SPASMS (Reported) Diltiazem HCl (Cartia Xt) 120 MG CAP.ER.24H 1 CAP PO DAILY CARDIAC (Reported) Glimepiride 2 MG TABLET 1.5 TAB PO DAILY DM (Reported) Hydrocodone/Acetaminophen (Hydrocodon-Acetaminophen 5-325) 5 MG-325 MG TABLET 1 TAB PO Q4 HRS NEEDED PRN PAIN SCALE 4-6 (MODERATE) Hydrocodone/Acetaminophen (Hydrocodon-Acetaminophen 5-325) 5 MG-325 MG TABLET 2 TAB PO Q4 HRS NEEDED PRN PAIN SCALE 7-10 (SEVERE) Iron Carb,Gl/FA/B12/C/Docusate (Ferralet 90 Tablet) 90 MG-1 MG-12 MCG-120 MG-50 MG TABLET 1 TAB PO DAILY IRON, VITAMIN (Reported) Lactobacillus Acidophilus (Acidophilus) 1 EACH CAPSULE 1 CAP PO DAILY GI ( Reported) Losartan/Hydrochlorothiazide (Losartan-Hctz 100-25 MG Tab) 100 MG-25 MG TABLET 1 TAB PO DAILY HTN (Reported) Melatonin 10 MG CAPSULE 1 CAP PO QPM SLEEP (Reported) Montelukast Sodium (Singulair) 10 MG TABLET 1 TAB PO DAILY ALLERGIES ( Reported) Multiple Vitamin (Multivitamins) 1 EACH TABLET 1 TAB PO DAILY SUPPLEMENT ( Reported) Multivit-Min/FA/Lutein/Zeaxant (Macular Vitamin Tablet) 500 MCG-5 MG-1 MG TABLET 1 TAB PO DAILY SUPPLEMENT (Reported) Omeprazole 40 MG CAPSULE.DR 1 CAP PO DAILY AC GERD (Reported) Ondansetron HCl (Zofran) 4 MG TABLET 1 TAB PO TID NAUSEA (Reported) Polyethylene Glycol 3350 (Miralax) 17 GRAM/DOSE POWDER 17 GM PO DAILY opiod constipation Sennosides/Docusate Sodium (Senna S Tablet) 8.6 MG-50 MG TABLET 2 TAB PO QPM CONSTIPATION (Reported) Sitagliptin Phosphate (Januvia) 100 MG TABLET 1 TAB PO DAILY DM (Reported)
--- NOTE | 2017-11-30 13:54 | Cons- Medical ---
Sanjay Medel MD 11/30/17 1354: General Information and HPI Consulting Request Date of Consult: 11/30/17 Requested By: Dania HARRIS,Ray Rose History of Present Illness: 72-year-old woman with past medical history of TIA, hyperlipidemia, hypertension , asthma, bronchitis, COPD, MRSA, GERD, OA, chronic back pain status post spinal fusion, [id number] diabetes mellitus, and upper extremity DVT on Coumadin sent in by her orthopedic surgeon Ray Najera MD for evaluation of possible spinal infection. Patient was admitted to [facility] from 10/28/17-11/03/17 for evaluation of increased lumbar wound drainage status post lumbar fusion 2 weeks prior for which she was taken to the OR on 10/29/17 and underwent I&D. ID consult was placed postoperatively. Patient was discharged on 6 weeks of oral ciprofloxacin. Prior to this patient was admitted to [facility] from 10/07/17-10/22/17 status post laminectomy for spinal stenosis on 10/07/17. The procedure lasted approximately 9 hours resulting in 1200 mL of intraoperative blood loss complicated by bradycardia and junctional rhythm resulting in hypotension requiring 5 L normal saline fluid resuscitation with epinephrine drip. Postoperatively patient was transferred to the ICU. Xarelto was discontinued due to acute blood loss anemia. She was found to have a right upper extremity DVT for which she was placed on intravenous heparin which was bridged to Coumadin. Patient was ultimately discharged to short-term rehab. Presently patient states that she feels well but is complaining of a new bandlike epigastric discomfort that started approximately 10 minutes prior to the interview. Patient states that this is never happened to her before and describes it as moderately uncomfortable. She is unable to characterize the discomfort further but feels it may be due to missing her dose of Symbicort this morning. Review of Systems Otherwise she denies any headache, fever, chills, blurred / double vision, lightheadedness, dizziness, numbness, tingling, weakness, chest pain, palpitations, heartburn, shortness of breath, cough, nausea, vomiting, diarrhea, constipation, urinary symptoms. Allergies/Medications Allergies: Coded Allergies: Sulfa (Sulfonamide Antibiotics) (Intermediate, SKIN TURNS PURPLE/HOT 10/28/17) Penicillins (Mild, ITCHING 10/28/17) aspirin (HX GASTRITIS 10/28/17) ASA->BLEEDING atorvastatin (PER PT MED LIST 10/28/17) prednisone (Severe, VISION CHANGES 10/28/17) Uncoded Allergies: ENVIRONMENTAL (UNKNOWN 07/20/13) MULTIPLE ANTIBIOTICS (UNKNOWN 07/20/13) Home Med List: Albuterol Sulfate (Proair Hfa) 90 MCG HFA.AER.AD 2 PUF INH PRN ASTHMA/ ALLERGIES (Reported) Ascorbate Calcium (Vitamin C) 500 MG TABLET 1 TAB PO DAILY SUPPLEMENT ( Reported) Azelastine/Fluticasone (Dymista Nasal [place]) 137 MCG-50 MCG/SPRAY SPRAY.PUMP 1 SPRAY NASB PRN ALLERGIES (Reported) Budesonide/Formoterol Fumarate (Symbicort 160-4.5 Mcg Inhaler) 160 MCG-4.5 MCG/ ACTUATION HFA.AER.AD 2 PUFF INH BID ASTHMA/ALLERGIES (Reported) Cetirizine HCl (Zyrtec) 10 MG CAPSULE 1 CAP PO DAILY ALLERGIES (Reported) Cholecalciferol (Vitamin D3) (Vitamin D) 1,000 UNIT TABLET 1 TAB PO DAILY SUPPLEMENT (Reported) Ciprofloxacin HCl 750 MG TABLET 1 TAB PO BID ANTIBIOTIC, INFECTION (Reported) Cyclobenzaprine HCl 5 MG TABLET 1 TAB PO QHS MUSCLE SPASMS (Reported) Diltiazem HCl (Cartia Xt) 120 MG CAP.ER.24H 1 CAP PO DAILY CARDIAC (Reported) Glimepiride 2 MG TABLET 1.5 TAB PO DAILY DM (Reported) Hydrocodone/Acetaminophen (Hydrocodon-Acetaminophen 5-325) 5 MG-325 MG TABLET 1 TAB PO Q4 HRS NEEDED PRN PAIN SCALE 4-6 (MODERATE) Hydrocodone/Acetaminophen (Hydrocodon-Acetaminophen 5-325) 5 MG-325 MG TABLET 2 TAB PO Q4 HRS NEEDED PRN PAIN SCALE 7-10 (SEVERE) Iron Carb,Gl/FA/B12/C/Docusate (Ferralet 90 Tablet) 90 MG-1 MG-12 MCG-120 MG-50 MG TABLET 1 TAB PO DAILY IRON, VITAMIN (Reported) Lactobacillus Acidophilus (Acidophilus) 1 EACH CAPSULE 1 CAP PO DAILY GI ( Reported) Losartan/Hydrochlorothiazide (Losartan-Hctz 100-25 MG Tab) 100 MG-25 MG TABLET 1 TAB PO DAILY HTN (Reported) Melatonin 10 MG CAPSULE 1 CAP PO QPM SLEEP (Reported) Montelukast Sodium (Singulair) 10 MG TABLET 1 TAB PO DAILY ALLERGIES ( Reported) Multiple Vitamin (Multivitamins) 1 EACH TABLET 1 TAB PO DAILY SUPPLEMENT ( Reported) Multivit-Min/FA/Lutein/Zeaxant (Macular Vitamin Tablet) 500 MCG-5 MG-1 MG TABLET 1 TAB PO DAILY SUPPLEMENT (Reported) Omeprazole 40 MG CAPSULE.DR 1 CAP PO DAILY AC GERD (Reported) Ondansetron HCl (Zofran) 4 MG TABLET 1 TAB PO TID NAUSEA (Reported) Polyethylene Glycol 3350 (Miralax) 17 GRAM/DOSE POWDER 17 GM PO DAILY opiod constipation Sennosides/Docusate Sodium (Senna S Tablet) 8.6 MG-50 MG TABLET 2 TAB PO QPM CONSTIPATION (Reported) Sitagliptin Phosphate (Januvia) 100 MG TABLET 1 TAB PO DAILY DM (Reported) Review of Systems Review of Systems Constitutional: Reports: see HPI. Past History Travel History Traveled to [place] past 21 day No Medical History Neurological: TIA EENT: NONE Cardiovascular: hypertension, hyperlipidemia, CAROTID ARTERY STENOSIS Respiratory: asthma, bronchitis, COPD, MRSA PNA Gastrointestinal: GERD Hepatic: STEATOSIS OF LIVER Renal: NONE Musculoskeletal: osteoarthritis, chronic back pain s/p spinal fusion; OA CARPAL TUNNEL Psychiatric: NONE Endocrine: NIDDM Blood Disorders: NONE Cancer(s): NONE THERAPEUTIC STRATEGY LEAD/Reproductive: TUBAL LIGATION Surgical History Surgical History: spinal fusion (lumbar), status post carpal tunnel release right rotator cuff Family History Relations & Conditions If Any: FATHER Relation not specified for: FH: myocardial infarction Psychosocial History ETOH Use: denies use Illicit Drug Use: denies illicit drug use Exam & Diagnostic Data Last 24 Hrs of Vital Signs/I&O Vital Signs Date Time Temp Pulse Resp B/P B/P Pulse O2 O2 Flow FiO2 Mean Ox Delivery Rate 11/30 1245 97.8 68 18 152/62 98 11/30 1207 98.0 64 18 176/66 98 Room Air 11/30 0916 97.5 69 20 150/67 95 Room Air Intake & Output 11/30 1600 11/30 0800 11/30 0000 Intake Total 1100 Output Total 400 Balance 700 Intake, IV 1100 Output, Urine 400 Patient 82.667 kg Weight Weight Chair scale Measurement Method Physical Exam Other Physical Findings: General - well developed, well nourished elderly woman in no acute distress HEENT - NCAT, PERRL, EOMI, anicteric sclera Neck- Supple, no JVD/HJR, no bruits, trachea midline, thyroid normal Cardio - S1, S2 w/o murmurs/gallops/rubs; regular rate and rhythm Resp - Clear to auscultation bilaterally GI - Soft, nontender, nondistended, bowel sounds present Back-large midline surgical scar with sutures in place draining a mild amount of clear liquid Neuro - Awake and alert, CN II - XII grossly intact Extremities - No edema, pulses intact Last 24 Hrs of Labs/Chucky: Laboratory Tests 11/30/17 1056: Anion Gap 9, Estimated GFR > 60, BUN/Creatinine Ratio 23.8, Glucose 108 H, Calcium 9.6, Total Bilirubin 0.2, AST 27, ALT 26, Alkaline Phosphatase 101, Total Protein 6.5, Albumin 3.5, Globulin 3.0, Albumin/Globulin Ratio 1.2, PT 22.9 H, INR 2.09 H, APTT 31, CBC w Diff NO MAN DIFF REQ, RBC 3.80 L, MCV 83.7 , MCH 27.7, MCHC 33.1, RDW 14.6 H, MPV 7.3 L, Gran % 69.2, Lymphocytes % 18.2 L, Monocytes % 9.7 H, Eosinophils % 2.5, Basophils % 0.4, Absolute Granulocytes 6.4, Absolute Lymphocytes 1.7, Absolute Monocytes 0.9 H, Absolute Eosinophils 0.2, Absolute Basophils 0 Assessment/Plan Assessment/Plan 72-year-old woman with multiple medical problems significant for 2 recent hospitalization status post laminectomy for spinal stenosis on 10/07/17 complicated by acute surgical blood loss anemia with bradycardia and hypotension requiring vasopressors and fluid resuscitation and right upper extremity DVT on Coumadin sent in from [facility] facility for increasing drainage from her midline surgical site. Presently patient otherwise feels well but is complaining of a new epigastric discomfort. Vital signs are significant only for an elevated systolic blood pressure ranging 150-176 and are otherwise within normal limits. Physical exam is significant for a large midline spinal surgical incision with sutures in place draining a clear scant amount of liquid; patient has a normal cardiopulmonary examination with a soft nontender abdomen. Labs including complete blood count, serum chemistry, and hepatic function panel are unremarkable; INR is 2.09. Chest x-ray demonstrates the presence of a left upper extremity PICC line. Lumbar spine x-ray demonstrates increased demineralization and compression deformity of the L2 vertebral body. Given patient's recent reported history of drainage of purulent material from her large midline surgical incision in her back there is clinical concern of a possible spinal abscess which will be evaluated by the primary surgical team. INR is therapeutic at 2.09 however should be reduced preoperatively. Problem list -Surgical site drainage of reported purulent material, possible spinal abscess -Recent laminectomy complicated with acute blood loss anemia -Epigastric abdominal discomfort, etiology unclear -Chronic back pain status post lumbar fusion -Right upper extremity DVT on Coumadin -Ilm-ntkxhxm-vdvskymcv diabetes mellitus -Osteoarthritis -GERD -History of MRSA -COPD, not on home oxygen -History of asthma/bronchitis -Hyperlipidemia -History of TIA Recommendations -Pre-/postoperative care per primary surgical team -I&D of surgical site, sent material for culture and Gram stain -Give oral vitamin K to reverse INR, if procedure is required tonight consider giving fresh frozen plasma as well -Obtain cardiology consult for presurgical risk stratification given her multiple medical comorbidities -ID consult for antibiotic recommendations -Follow daily INR, hold Coumadin today -When surgical bleeding risk acceptable start IV heparin postoperatively while bridging back to Coumadin -Consider post operative placement on telemetry -Ensure DVT prophylaxis at all times Consult Acknowledgment - Thank you for your consult request. All Magana MD 11/30/172048: Assessment/Plan Consult Acknowledgment - Thank you for your consult request. Attending MD Review Statement Attending Statement Attending MD Statement: examined this patient, discuss w/resident/PA/REVIEW MANAGER, agreed w/resident/PA/REVIEW MANAGER, discussed with family, reviewed EMR data (avail), discussed with nursing, amended to note Attending Assessment/Plan: The patient is a 72 yo female with h/o TIA, HL, HTN, asthma/COPD, OA, chronic back pain, DM2 (on insulin), and h/o RUE DVT (with PICC) who is status post prior lumbar fusion procedure earlier this year and subsequent infection requiring drainage (10/29/17). She was discharged to [facility] in [place] on po Cipro. She presented with significant drainage from wound requiring further surgery. She has been on Coumadin for DVT and her INR is 2.09. She requires reversal of anti-coagulation. She denied any fever, chills, chest pain or dyspnea. Physical Exam: VS: T 97.5, P 69, R 20, BP 152/62, PO 98% RA HEENT: eyes- PERRLA, EOMI sangeetha- normal mucosa Neck: no bruits or JVD Chest: clear Cor: RRR nl S1, S2 w/o murm Abd: BS+, soft, NT Ext: tr edema bilat w/o cords, pulses 2+ Neuro: alert & oriented x 3, non-focal exam Labs/Tests- as above Impression/Plan: #Lumbar Spinal Wound Infection- patient requires operative drainage. No fever/ chills, etc. Plan: To OR as per Dr. Najera. Culture wound. Agree with ID consult/follow-up with Dr. Simon regarding anitbiotics. #Coagulopathy- on Coumadin for h/o recent RUE DVT. Need INR < 1.5 for OR. Plan: Agree with Vitamin K 5 mg po. Would give 2U FFP pre-op (if going to OR this evening). #DM2- on insulin & oral agents (Glimepiride/Sitagliptin). Plan: Continue monitoring glucose and insulin. #RUE DVT- no swelling at present. Plan: Will restart Coumadin post operatively. #COPD/Asthma- not on oxygen. Followed by Dr. Kahn. Lungs clear at present. Plan: Continue inhalers, zachary-operative nebulizer to optimize lungs. Continue Singulair. #HTN/Cardiac- BP good. Plan: Continue Losartan/HCTZ and follow BP. Dr. Onofre saw patient (for Dr. Young) and stated medically stable for planned surgery.
--- NOTE | 2017-11-30 14:18 | History & Physical Pre-Op ---
Jessica Mari 11/30/17 1344: General Information and HPI MD Statement: I have seen and personally examined DAVID EDUARDO and documented this H&P. The patient is a 72 year old F who presented with a patient stated chief complaint of [wound infection]. Source of Information: patient, old records Exam Limitations: no limitations History of Present Illness: David is a 72 year old female who presents through ER today with complaints of drainage from lumbar wound. Earlier today she was evaluated by Dr. Najera in an outpatient setting and it was recommended to her by him that she report to emergency department for further evaluation and management of wound infection. Her past surgical history is significant for a lumbar fusion on 10/07/2017. In the early postoperative period following that procedure, she experienced a bradycardic episode with a new onset of a junctional rhythm. She was evaluated by Dr. Young and Dr. Quintana and was placed in the ICU for further evaluation, she converted back to sinus rhythm, and remained hemodynamically stable. She experienced A picc line had been placed because of poor venous access. She developed an upper extremity dvt and has been on coumadin for anticoagulation. She was readmitted to the hospital and underwent an i&d of her lumbar wound on . She was followed by infectious disease and placed on ciprofloxacin po post operatively. She has been on po cipro since that admission. Her past medical history is signficant for copd, dm, htn, asthma, tia and pvd. Upon admission to hospital, her INR is 2.09. Medicine to evaluate, INR reversal with vitamin K to be administered in anticipation for I&D later this evening. Allergies/Medications Allergies: Coded Allergies: Sulfa (Sulfonamide Antibiotics) (Intermediate, SKIN TURNS PURPLE/HOT 10/28/17) Penicillins (Mild, ITCHING 10/28/17) aspirin (HX GASTRITIS 10/28/17) ASA->BLEEDING atorvastatin (PER PT MED LIST 10/28/17) prednisone (Severe, VISION CHANGES 10/28/17) Uncoded Allergies: ENVIRONMENTAL (UNKNOWN 07/20/13) MULTIPLE ANTIBIOTICS (UNKNOWN 07/20/13) Home Med list Albuterol Sulfate (Proair Hfa) 90 MCG HFA.AER.AD 2 PUF INH PRN ASTHMA/ ALLERGIES (Reported) Ascorbate Calcium (Vitamin C) 500 MG TABLET 1 TAB PO DAILY SUPPLEMENT ( Reported) Azelastine/Fluticasone (Dymista Nasal [place]) 137 MCG-50 MCG/SPRAY SPRAY.PUMP 1 SPRAY NASB PRN ALLERGIES (Reported) Budesonide/Formoterol Fumarate (Symbicort 160-4.5 Mcg Inhaler) 160 MCG-4.5 MCG/ ACTUATION HFA.AER.AD 2 PUFF INH BID ASTHMA/ALLERGIES (Reported) Cetirizine HCl (Zyrtec) 10 MG CAPSULE 1 CAP PO DAILY ALLERGIES (Reported) Cholecalciferol (Vitamin D3) (Vitamin D) 1,000 UNIT TABLET 1 TAB PO DAILY SUPPLEMENT (Reported) Ciprofloxacin HCl 750 MG TABLET 1 TAB PO BID ANTIBIOTIC, INFECTION (Reported) Cyclobenzaprine HCl 5 MG TABLET 1 TAB PO QHS MUSCLE SPASMS (Reported) Diltiazem HCl (Cartia Xt) 120 MG CAP.ER.24H 1 CAP PO DAILY CARDIAC (Reported) Glimepiride 2 MG TABLET 1.5 TAB PO DAILY DM (Reported) Hydrocodone/Acetaminophen (Hydrocodon-Acetaminophen 5-325) 5 MG-325 MG TABLET 1 TAB PO Q4 HRS NEEDED PRN PAIN SCALE 4-6 (MODERATE) Hydrocodone/Acetaminophen (Hydrocodon-Acetaminophen 5-325) 5 MG-325 MG TABLET 2 TAB PO Q4 HRS NEEDED PRN PAIN SCALE 7-10 (SEVERE) Iron Carb,Gl/FA/B12/C/Docusate (Ferralet 90 Tablet) 90 MG-1 MG-12 MCG-120 MG-50 MG TABLET 1 TAB PO DAILY IRON, VITAMIN (Reported) Lactobacillus Acidophilus (Acidophilus) 1 EACH CAPSULE 1 CAP PO DAILY GI ( Reported) Losartan/Hydrochlorothiazide (Losartan-Hctz 100-25 MG Tab) 100 MG-25 MG TABLET 1 TAB PO DAILY HTN (Reported) Melatonin 10 MG CAPSULE 1 CAP PO QPM SLEEP (Reported) Montelukast Sodium (Singulair) 10 MG TABLET 1 TAB PO DAILY ALLERGIES ( Reported) Multiple Vitamin (Multivitamins) 1 EACH TABLET 1 TAB PO DAILY SUPPLEMENT ( Reported) Multivit-Min/FA/Lutein/Zeaxant (Macular Vitamin Tablet) 500 MCG-5 MG-1 MG TABLET 1 TAB PO DAILY SUPPLEMENT (Reported) Omeprazole 40 MG CAPSULE.DR 1 CAP PO DAILY AC GERD (Reported) Ondansetron HCl (Zofran) 4 MG TABLET 1 TAB PO TID NAUSEA (Reported) Polyethylene Glycol 3350 (Miralax) 17 GRAM/DOSE POWDER 17 GM PO DAILY opiod constipation Sennosides/Docusate Sodium (Senna S Tablet) 8.6 MG-50 MG TABLET 2 TAB PO QPM CONSTIPATION (Reported) Sitagliptin Phosphate (Januvia) 100 MG TABLET 1 TAB PO DAILY DM (Reported) Past History Medical History Neurological: TIA EENT: NONE Cardiovascular: hypertension, hyperlipidemia, CAROTID ARTERY STENOSIS Respiratory: asthma, bronchitis, COPD, MRSA PNA Gastrointestinal: GERD Hepatic: STEATOSIS OF LIVER Renal: NONE Musculoskeletal: osteoarthritis, chronic back pain s/p spinal fusion; OA CARPAL TUNNEL Psychiatric: NONE Endocrine: NIDDM Blood Disorders: NONE Cancer(s): NONE HOME CARE CHAPLAIN/Reproductive: TUBAL LIGATION History of MRSA: Yes History of VRE: Yes History of CDIFF: No Surgical History Pertinent Surgical History: spinal fusion (lumbar), status post carpal tunnel release right rotator cuff Past Family/Social History Family History Relations & Conditions if any FATHER Relation not specified for: FH: myocardial infarction Psychosocial History ETOH Use: denies use Illicit Drug Use: denies illicit drug use Review of Systems Review of Systems Respiratory: Reports: short of breath. GI: Reports: no symptoms. Musculoskeletal: Reports: back pain. Skin: Reports: see HPI. Exam & Diagnostic Data Last 24 Hrs of Vital Signs/I&O Vital Signs Date Time Temp Pulse Resp B/P B/P Pulse O2 O2 Flow FiO2 Mean Ox Delivery Rate 11/30 1245 97.8 68 18 152/62 98 11/30 1207 98.0 64 18 176/66 98 Room Air 11/30 0916 97.5 69 20 150/67 95 Room Air Intake & Output 11/30 1600 11/30 0800 11/30 0000 Intake Total 1100 Output Total 400 Balance 700 Intake, IV 1100 Output, Urine 400 Patient 182 lb Weight Weight Reported by Patient Measurement Method Physical Exam: General: Alert and oriented x3, no acute distress Cardiac: RRR, s1s2 Pulm: CTA bilatearlly, non-labored respiratory effort Abd: Non-tender, non-disteneded Extremiteis: Neurovascular status grossly intact, bilateral ankle swelling noted. Bialteral calves soft and non-tender. Surgical site: Lumbar spine, distal aspect of wound erythematous, open, with purulent drainage noted. Assessment/Plan Assessment/Plan: This is a 72 year old female who is s/p lumbar fusion with concerns for surgical site infection requiring i&d. Has been anticoagulated due to dvt in upper extremity, INR therapeutic, requires reversal in the setting of surgery. -Vitamin k 5 mg now -NPO -IV hydration -hold coumadin preoperatively -consult medicine, cardiology and infectious disease Will discuss poc with Dr. Najera As Ranked By This Provider Problem List: 1. Wound infection Dania HARRIS,Ray Mackenzie. 11/30/17 6614: Assessment/Plan Assessment/Plan: Dr. Najera evaluated the patient in the office immediately prior to admission David Eduardo is a 72 year old obese diabetic WF with multiple other medical comorbidities who is now S/P L3-L5 decompression and instrumented fusion for stairstep spondylolisthesis and spinal stenosis (04/01/13 - [facility]) complicated by slow and prolonged postoperative recovery with persistent, recurrent and subsequently progressive back and leg radiating symptoms secondary to the development of new L2-L3 and L5-S1 stairstep spondylolisthesis and stenosis which was unresponsive to and worsening despite comprehensive conservative measures. Preoperative rheumatologic laboratory evaluation was negative for definitive rheumatlogic diagnosis to explain her progressive erosive and destabilizing spondylopathy but underlying rheumatologic diagnosis or spondyloarthropathy are still likely given the rapidly progressive nature of her degenrative disease and instability. After extensive discussion and counseling reagrding relative risks and benefits she elected to proceed with L2-S1 new and revision decompression and instrumented fusion (10/07/2017, [facility]) understanding and accepting all potential risks. She required ICU care postoperatively because of hypotension at the end of the procedure which was felt to be associated with idiopathic reaction to anesthesia and which resolved rapidly. She had a history of MRSA pneumonia after her first surgery and screening nares cultures prior to her revision surgery were MRSA positive. She had a history of poor venous access preoperatively and so a PICC line had been placed in the right upper extremity. She had swelling in the right arm postoperatively and was diagnosed with an upper extremity DVT. She was anticoagulated and developed bleeding from her drain sites and anemia requiring transfusion. She had arthritic pain in multiple joints, significant pulmonary congestion and poor pain tolerance in her back as well as other exacerbations of comorbid medical condition all resulting in delayed mobilization. She was ultimately mobilized and over more than a week was able to reach criterion for rehab D/C. Shortly after D/C but more than 2 weeks after surgery and following uncomplicated staple removal she developed an incisional dehiscence and drainage requiring readmission and return to the OR for I&D. Operative cultures showed Klebsiella pneumoniae resistant to Ampicillin but otherwise pansensitive. Infectious disease consultation recommendations were followed and the patient was placed on PO Cipro. She was discharged back to rehab and initially did well. Approximately 2 weeks after discharge she again developed a lower incisional dehiscence this time with mostly serous drainage but with a slight purulent discoloration. When this superficial draiange did not resolve rapidly, readmission and revision I&D surgery was recommended last week but, because of new and urgent patient obligations regarding her family, she declined urgent admission at that time. The associated risk of delay in treatment were discussed and accepted by the patient and her decision to postpone, which was felt to be reasonable given the importance of her family situation, was made with good understanding of the associated risks. She was reevaluated in the office on the morning of readmission (11/30/2017) and her drainage remained unchanged. Readmission was again recommended and this time, with her family obligations completed, she agreed to urgent admission, reversal of anticoagulation and I&D. She still has a functioning PICC line which was changed to the left upper extremity during her last hospitalization. This has been maintained per protocol but not used since her last discharged. On examination earlier today in the office she was able to mobilize fairly well with only mild pain. She was neurovascularly intact in both lower extremities. She is tender in the lower midline and right greater than left paraspinal region to palpation. Palpation and even ventromedial pressure applied to the paraspinal regions did not yield drainage. The edges of the incision are erythematous and likely compromised physiologically at this point given the chronic dehiscence, drainage and presumed persistent infection. These tissues will be resected back to viable margins during I&D. No other abnormalities or findings of concern were noted. An MRI was performed last week which showed a small epidural fluid collection in the upper end of the surgical bed and a smaller superficial suprafascial collection. Neither has significant enhancement surrounding it and both are consistent with liquified hematoma although contained abscess or other etiologies cannot be excluded on the basis of this study. There is a new L2 osteoporotic wedge compression fracture with very minimal left retropulsion. I am not aware of any postoperative radiographs, injuries or symptom changes which would better define when this new fracture might have occurred. The patient has not begun using the postoperative electromagnetic bone growth stimulator arranged for her through the office and planned to start use once she was discharged home from the rehabilitation facility. There is L1-L2 moderate canal stenosis which may be slightly worse than on previous studies. This slight increase appears t be more related to the slight L1-L2 kyphoyic angulation associated with the L2 wedge compression than any retropulsion or disk herniation. Fortunately, the stenosis is only at the disk level and could easily be decompressed by bilateral hemilaminotomy without destabilizing the adjacent segment. Thsi will be assessed intaroperativelty and decompression will be performed if indicated. The plan will be for clinical stabilization, discontinuation of antibiotics until surgery, medicine and ID consultation, any other necessary clearance evaluations, reversal of anticoagulation following medicine (and any other requested) consult service recommendations, revision I&D and postoperative treatment with Vancomycin (for surgical prophylaxis) and Cipro until definitive antibiotic regimen can be recommended by ID based on operative cultures and sensitivities. She will use mechanical thromboembolic postoperative prophylaxis along with subQ Heparin until her drains are removed. She will then begin Coumadin the following day per standard protocol and titrate dose to previous target INR levels unless otherwise recommended by the consulting medicine team. Given that most of her medical conditions are stable currently, it is reasonable for the patient to be admitted to the orthopaedic service. However, given the complexity of her comorbidities which have actually had a much larger affect on her outcome than the surgical procedure itself, if she develops significant medical health concerns, transfer to the medical service will be discussed as the medical team has very appropriately accepted in the past. We will likely proceed with surgery tomorrow afternoon once her anticoagulation has been reversed and normalized per recommendations from medicine and/or vascular service consultations (who have managed her right upper extremity DVT on previous admissions and as an outpatient). Hold antibiotics. NPO after midnight. Signed operative consent was obtained in the office today with good understanding of all reasonable indications, treatment options, goals, limitations, benefits and risks of the recommended and planned procedure as well as all reasonable alternatives.
--- NOTE | 2017-11-30 15:47 | Cons- Infect Disease ---
General Information and HPI Consulting Request Date of Consult: 11/30/17 Requested By: Dania HARRIS,Ray Rose Reason for Consult: Surgical site infection Source of Information: patient, family, old records History of Present Illness: This is a 72-year-old woman with a history of COPD, diabetes, hypertension, osteoarthritis and spinal stenosis, with chronic back pain, status post decompressive lumbar laminectomy L2-S1 8 weeks prior to admission, with insertion of a cage and pedicle screws and removal of screws from a previous spinal fusion, with her intraoperative course complicated by bradycardia/ junctional rhythm and hypotension, and her postop course completed by anemia, felt secondary to intraoperative blood loss, requiring 6 units of blood, a right upper extremity DVT from a PICC that was placed prior to admission, and persistent back pain, readmitted 5 weeks prior to admission because of persistent drainage from the incision and back pain, status post I&D with retention of the hardware, with her OR cultures positive for Klebsiella, treated initially with Ceftriaxone and discharged to a short-term rehab facility on po Ciprofloxacin to complete a 6 week course, with her PICC, which had been placed for IV access, kept in place, admitted today after an MRI 5 days prior to admission revealed a new 2 cm epidural fluid collection at the L2-L3 level, contiguous with a second collection at the L3- L5 laminectomy beds, with persistent drainage, reportedly foul-smelling, from her incision, and minimal back discomfort, relieved with 3 Vicodin a day, without any associated fevers, chills or other symptoms. On admission she was afebrile. Laboratory data reveals a white blood cell count of 9000, BUN/creatinine 19 and 0.8, with normal liver enzymes, INR 2.09. Chest x-ray was negative. X-ray of the lumbosacral spine reveals intact hardware with no acute findings. Allergies/Medications Allergies: Coded Allergies: Sulfa (Sulfonamide Antibiotics) (Intermediate, SKIN TURNS PURPLE/HOT 10/28/17) Penicillins (Mild, ITCHING 10/28/17) aspirin (HX GASTRITIS 10/28/17) ASA->BLEEDING atorvastatin (PER PT MED LIST 10/28/17) prednisone (Severe, VISION CHANGES 10/28/17) Uncoded Allergies: ENVIRONMENTAL (UNKNOWN 07/20/13) MULTIPLE ANTIBIOTICS (UNKNOWN 07/20/13) Home Med List: Albuterol Sulfate (Proair Hfa) 90 MCG HFA.AER.AD 2 PUF INH PRN ASTHMA/ ALLERGIES (Reported) Ascorbate Calcium (Vitamin C) 500 MG TABLET 1 TAB PO DAILY SUPPLEMENT ( Reported) Azelastine/Fluticasone (Dymista Nasal [place]) 137 MCG-50 MCG/SPRAY SPRAY.PUMP 1 SPRAY NASB PRN ALLERGIES (Reported) Budesonide/Formoterol Fumarate (Symbicort 160-4.5 Mcg Inhaler) 160 MCG-4.5 MCG/ ACTUATION HFA.AER.AD 2 PUFF INH BID ASTHMA/ALLERGIES (Reported) Cetirizine HCl (Zyrtec) 10 MG CAPSULE 1 CAP PO DAILY ALLERGIES (Reported) Cholecalciferol (Vitamin D3) (Vitamin D) 1,000 UNIT TABLET 1 TAB PO DAILY SUPPLEMENT (Reported) Ciprofloxacin HCl 750 MG TABLET 1 TAB PO BID ANTIBIOTIC, INFECTION (Reported) Cyclobenzaprine HCl 5 MG TABLET 1 TAB PO QHS MUSCLE SPASMS (Reported) Diltiazem HCl (Cartia Xt) 120 MG CAP.ER.24H 1 CAP PO DAILY CARDIAC (Reported) Glimepiride 2 MG TABLET 1.5 TAB PO DAILY DM (Reported) Hydrocodone/Acetaminophen (Hydrocodon-Acetaminophen 5-325) 5 MG-325 MG TABLET 1 TAB PO Q4 HRS NEEDED PRN PAIN SCALE 4-6 (MODERATE) Hydrocodone/Acetaminophen (Hydrocodon-Acetaminophen 5-325) 5 MG-325 MG TABLET 2 TAB PO Q4 HRS NEEDED PRN PAIN SCALE 7-10 (SEVERE) Iron Carb,Gl/FA/B12/C/Docusate (Ferralet 90 Tablet) 90 MG-1 MG-12 MCG-120 MG-50 MG TABLET 1 TAB PO DAILY IRON, VITAMIN (Reported) Lactobacillus Acidophilus (Acidophilus) 1 EACH CAPSULE 1 CAP PO DAILY GI ( Reported) Losartan/Hydrochlorothiazide (Losartan-Hctz 100-25 MG Tab) 100 MG-25 MG TABLET 1 TAB PO DAILY HTN (Reported) Melatonin 10 MG CAPSULE 1 CAP PO QPM SLEEP (Reported) Montelukast Sodium (Singulair) 10 MG TABLET 1 TAB PO DAILY ALLERGIES ( Reported) Multiple Vitamin (Multivitamins) 1 EACH TABLET 1 TAB PO DAILY SUPPLEMENT ( Reported) Multivit-Min/FA/Lutein/Zeaxant (Macular Vitamin Tablet) 500 MCG-5 MG-1 MG TABLET 1 TAB PO DAILY SUPPLEMENT (Reported) Omeprazole 40 MG CAPSULE.DR 1 CAP PO DAILY AC GERD (Reported) Ondansetron HCl (Zofran) 4 MG TABLET 1 TAB PO TID NAUSEA (Reported) Polyethylene Glycol 3350 (Miralax) 17 GRAM/DOSE POWDER 17 GM PO DAILY opiod constipation Sennosides/Docusate Sodium (Senna S Tablet) 8.6 MG-50 MG TABLET 2 TAB PO QPM CONSTIPATION (Reported) Sitagliptin Phosphate (Januvia) 100 MG TABLET 1 TAB PO DAILY DM (Reported) Past History Travel History Traveled to [place] past 21 day No Medical History Blood Transfusion Hx: Yes Neurological: TIA EENT: NONE, allergies Cardiovascular: hypertension, hyperlipidemia, CAROTID ARTERY STENOSIS BRADYCARDIA Respiratory: asthma, bronchitis, MRSA PNA Gastrointestinal: GERD Hepatic: NONE Renal: NONE Musculoskeletal: osteoarthritis, chronic back pain s/p spinal fusion; OA CARPAL TUNNEL Psychiatric: NONE Endocrine: NIDDM Blood Disorders: NONE Cancer(s): 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 [facility] Smoking Status: Never Smoked ETOH Use: denies use Illicit Drug Use: denies illicit drug use Review of Systems Review of Systems All Other Systems: Reviewed and Negative Exam & Diagnostic Data Last 24 Hrs of Vital Signs/I&O Vital Signs Date Time Temp Pulse Resp B/P B/P Pulse O2 O2 Flow FiO2 Mean Ox Delivery Rate 11/30 1245 97.8 68 18 152/62 98 11/30 1207 98.0 64 18 176/66 98 Room Air 11/30 0916 97.5 69 20 150/67 95 Room Air Intake & Output 11/30 1600 11/30 0800 11/30 0000 Intake Total 1100 Output Total 400 Balance 700 Intake, IV 1100 Output, Urine 400 Patient 182 lb Weight Weight Chair scale Measurement Method Physical Exam Other Physical Findings: She is awake and alert in no acute distress. She is afebrile. Skin reveals no rash. HEENT exam is negative. Neck is supple with no adenopathy. Lungs are clear. Heart regular rhythm with no murmur. Abdomen is soft, nontender with positive bowel sounds. Back incision fairly clean, with minimal erythema, tender to palpation, with drainage on the dressing. Extremities no cyanosis, clubbing or edema; PICC in the left upper extremity with no inflammation at the site. Neuro is without focality. Last 24 Hours of Lab Results: Laboratory Tests 11/30 1056 Chemistry Sodium (137 - 145 mmol/L) 140 Potassium (3.5 - 5.1 mmol/L) 3.8 Chloride (98 - 107 mmol/L) 101 Carbon Dioxide (22 - 30 mmol/L) 30 Anion Gap (5 - 16) 9 BUN (7 - 17 mg/dL) 19 H Creatinine (0.5 - 1.0 mg/dL) 0.8 Estimated GFR (>60 ml/min) > 60 BUN/Creatinine Ratio (7 - 25 %) 23.8 Glucose (65 - 99 mg/dL) 108 H Calcium (8.4 - 10.2 mg/dL) 9.6 Total Bilirubin (0.2 - 1.3 mg/dL) 0.2 AST (14 - 36 U/L) 27 ALT (9 - 52 U/L) 26 Alkaline Phosphatase (<127 U/L) 101 Total Protein (6.3 - 8.2 g/dL) 6.5 Albumin (3.5 - 5.0 g/dL) 3.5 Globulin (1.9 - 4.2 gm/dL) 3.0 Albumin/Globulin Ratio (1.1 - 2.2 %) 1.2 Coagulation PT (9.4 - 12.5 SEC) 22.9 H INR (0.90 - 1.19) 2.09 H APTT (25 - 37 SEC) 31 Hematology CBC w Diff NO MAN DIFF REQ WBC (4.8 - 10.8 /CUMM) 9.2 RBC (4.20 - 5.40 /CUMM) 3.80 L Hgb (12.0 - 16.0 G/DL) 10.5 L Hct (37 - 47 %) 31.8 L MCV (81.0 - 99.0 FL) 83.7 MCH (27.0 - 31.0 PG) 27.7 MCHC (33.0 - 37.0 G/DL) 33.1 RDW (11.5 - 14.5 %) 14.6 H Plt Count (130 - 400 /CUMM) 334 MPV (7.4 - 10.4 FL) 7.3 L Gran % (42.2 - 75.2 %) 69.2 Lymphocytes % (20.5 - 51.1 %) 18.2 L Monocytes % (1.7 - 9.3 %) 9.7 H Eosinophils % (0 - 5 %) 2.5 Basophils % (0.0 - 2.0 %) 0.4 Absolute Granulocytes (1.4 - 6.5 /CUMM) 6.4 Absolute Lymphocytes (1.2 - 3.4 /CUMM) 1.7 Absolute Monocytes (0.10 - 0.60 /CUMM) 0.9 H Absolute Eosinophils (0.0 - 0.7 /CUMM) 0.2 Absolute Basophils (0.0 - 0.2 /CUMM) 0 Last 24 Hours of Chucky Results: No cultures Diagnostic Data Recent Imaging Findings: Chest x-ray negative. X-ray of the lumbosacral spine reveals intact hardware with no acute findings. Assessment/Plan Assessment/Plan Impression: This is a 72-year-old woman status post decompressive lumbar laminectomy L2-S1 for spinal stenosis 8 weeks prior to admission, with insertion of a cage and pedicle screws and removal of screws from a previous spinal fusion, readmitted 5 weeks prior to admission with a surgical site infection secondary to Klebsiella, status post I&D with retention of the hardware and discharged on po Ciprofloxacin to complete a 6 week course, admitted today after an MRI 5 days prior to admission revealed a new 2 cm epidural fluid collection at the L2-L3 level, contiguous with a second collection at the L3-L5 laminectomy beds, with persistent drainage, reportedly foul-smelling, from her incision, and minimal back discomfort, found to be afebrile with a normal white blood cell count, with plans for exploration of her wound in the OR in the a.m. She has evidence of a persistent surgical site infection, with persistent drainage from the incision and with a recent MRI revealing 2 fluid collections, felt to be contiguous, from L2-L5. She is scheduled for exploration of the wound in the a.m. but must suspect that the hardware is infected and, therefore, feel that all of the hardware should be removed. She has been on antibiotics up until today, which may affect any cultures that are obtained in the OR. As she is stable she can be followed off antibiotics pending results of the OR cultures. Suggestion: 1. Await OR in the a.m. 2. Follow-up OR cultures 3. Follow off antibiotics pending above Consult Acknowledgment - Thank you for your consult request.
--- NOTE | 2017-11-30 16:57 | Cons- Pulmonary ---
General Information and HPI Consulting Request Date of Consult: 11/30/17 Requested By: Dr. Magana Reason for Consult: hx of asthma Source of Information: patient Exam Limitations: no limitations History of Present Illness: 72 year old woman. Consultation for history of asthma, patient and medical service request for preoperative pulmonary assessment. Significant PMH of asthma controlled with symbicort. Hx of MRSA pna, htn, hyperlipidemia, DM. Recent lumbar surgery 09/2017 where she developed drainage/bleeding and possible infection requiring antibiotic therapy. She also was found to have a right sided DVT along the PICC line trajectory. She was placed on coumadin given bleeding and potential need for reversal. She now presents with continued drainage and will require OR washout. She reports to be at her respiratory baseline. Exertional dysnea. No dyspnea at rest, no CP, no palpitations, no dizziness, no n/v/d/c. Recently attended her sisters . Allergies/Medications Allergies: Coded Allergies: Sulfa (Sulfonamide Antibiotics) (Intermediate, SKIN TURNS PURPLE/HOT 10/28/17) Penicillins (Mild, ITCHING 10/28/17) aspirin (HX GASTRITIS 10/28/17) ASA->BLEEDING atorvastatin (PER PT MED LIST 10/28/17) prednisone (Severe, VISION CHANGES 10/28/17) Uncoded Allergies: ENVIRONMENTAL (UNKNOWN 07/20/13) MULTIPLE ANTIBIOTICS (UNKNOWN 07/20/13) Home Med List: Albuterol Sulfate (Proair Hfa) 90 MCG HFA.AER.AD 2 PUF INH PRN ASTHMA/ ALLERGIES (Reported) Ascorbate Calcium (Vitamin C) 500 MG TABLET 1 TAB PO DAILY SUPPLEMENT ( Reported) Azelastine/Fluticasone (Dymista Nasal [place]) 137 MCG-50 MCG/SPRAY SPRAY.PUMP 1 SPRAY NASB PRN ALLERGIES (Reported) Budesonide/Formoterol Fumarate (Symbicort 160-4.5 Mcg Inhaler) 160 MCG-4.5 MCG/ ACTUATION HFA.AER.AD 2 PUFF INH BID ASTHMA/ALLERGIES (Reported) Cetirizine HCl (Zyrtec) 10 MG CAPSULE 1 CAP PO DAILY ALLERGIES (Reported) Cholecalciferol (Vitamin D3) (Vitamin D) 1,000 UNIT TABLET 1 TAB PO DAILY SUPPLEMENT (Reported) Ciprofloxacin HCl 750 MG TABLET 1 TAB PO BID ANTIBIOTIC, INFECTION (Reported) Cyclobenzaprine HCl 5 MG TABLET 1 TAB PO QHS MUSCLE SPASMS (Reported) Diltiazem HCl (Cartia Xt) 120 MG CAP.ER.24H 1 CAP PO DAILY CARDIAC (Reported) Glimepiride 2 MG TABLET 1.5 TAB PO DAILY DM (Reported) Hydrocodone/Acetaminophen (Hydrocodon-Acetaminophen 5-325) 5 MG-325 MG TABLET 1 TAB PO Q4 HRS NEEDED PRN PAIN SCALE 4-6 (MODERATE) Hydrocodone/Acetaminophen (Hydrocodon-Acetaminophen 5-325) 5 MG-325 MG TABLET 2 TAB PO Q4 HRS NEEDED PRN PAIN SCALE 7-10 (SEVERE) Iron Carb,Gl/FA/B12/C/Docusate (Ferralet 90 Tablet) 90 MG-1 MG-12 MCG-120 MG-50 MG TABLET 1 TAB PO DAILY IRON, VITAMIN (Reported) Lactobacillus Acidophilus (Acidophilus) 1 EACH CAPSULE 1 CAP PO DAILY GI ( Reported) Losartan/Hydrochlorothiazide (Losartan-Hctz 100-25 MG Tab) 100 MG-25 MG TABLET 1 TAB PO DAILY HTN (Reported) Melatonin 10 MG CAPSULE 1 CAP PO QPM SLEEP (Reported) Montelukast Sodium (Singulair) 10 MG TABLET 1 TAB PO DAILY ALLERGIES ( Reported) Multiple Vitamin (Multivitamins) 1 EACH TABLET 1 TAB PO DAILY SUPPLEMENT ( Reported) Multivit-Min/FA/Lutein/Zeaxant (Macular Vitamin Tablet) 500 MCG-5 MG-1 MG TABLET 1 TAB PO DAILY SUPPLEMENT (Reported) Omeprazole 40 MG CAPSULE.DR 1 CAP PO DAILY AC GERD (Reported) Ondansetron HCl (Zofran) 4 MG TABLET 1 TAB PO TID NAUSEA (Reported) Polyethylene Glycol 3350 (Miralax) 17 GRAM/DOSE POWDER 17 GM PO DAILY opiod constipation Sennosides/Docusate Sodium (Senna S Tablet) 8.6 MG-50 MG TABLET 2 TAB PO QPM CONSTIPATION (Reported) Sitagliptin Phosphate (Januvia) 100 MG TABLET 1 TAB PO DAILY DM (Reported) Current Medications: Current Medications Sig/Clementine Start time Last Medication Dose Route Stop Time Status Admin Acetaminophen 0 .STK-MED ONE 11/30 1123 DC IV Acetaminophen 1,000 MG Q6P PRN 11/30 1100 AC 11/30 N/A 1 UNIT IV 1132 Albuterol Sulfate 3 ML Q4-PRN PRN 11/30 1915 AC 11/30 INH 1918 Albuterol Sulfate 2 PUF Q4P PRN 11/30 1300 AC INH Budesonide/ 2 PUF BID 11/30 2100 AC 11/30 Formoterol Fumarate INH 1646 Dextrose/Sodium 1,000 ML Q10H 11/30 2030 AC 11/30 Chloride IV 2053 Diltiazem HCl 120 MG DAILY 12/01 0900 AC PO Docusate Sodium 100 MG QPM 11/30 2100 AC 11/30 PO 2054 Fluticasone 2 SPRAY DAILY 11/30 1343 AC 11/30 Propionate KIM 1648 Glimepiride 3 MG DAILY 12/01 0900 CAN PO Hydrochlorothiazide 25 MG DAILY 12/01 0900 DC PO Hydrochlorothiazide 25 MG DAILY 11/30 2145 AC PO Hydrocodone Bitart/ 2 TAB ONCE ONE 11/30 2030 DC 11/30 Acetaminophen PO 11/30 2032053 Insulin Aspart 0 TIDAC 12/01 0800 CAN SC Insulin Aspart 0 AT BEDTIME 11/30 2100 AC SC Insulin Human Regular 0 Q6 11/30 2359 AC SC Losartan Potassium 100 MG DAILY 12/01 0900 DC PO Losartan Potassium 100 MG DAILY 11/30 2145 AC PO Melatonin 10 MG AT BEDTIME NEED.. 11/30 2145 AC 11/30 PO 2157 Montelukast Sodium 10 MG AT BEDTIME 11/30 2100 AC 11/30 PO 2053 Morphine Sulfate 2 MG ONCE ONE 11/30 1130 DC IV 11/30 1131 Morphine Sulfate 2 MG Q2P PRN 11/30 1100 AC IV Ondansetron HCl 0 .STK-MED ONE 11/30 1123 DC .ROUTE Ondansetron HCl 4 MG Q8P PRN 11/30 1100 AC IV Pantoprazole Sodium 40 MG DAILY 11/30 1251 AC 11/30 IV 1648 Patient Medication 1 ED ONE ONE 11/30 1315 DC 11/30 Teaching ED 11/30 1316 1648 Phytonadione 5 MG ONCE ONE 11/30 1430 DC 11/30 PO 11/30 1431 1648 Polyethylene Glycol 17 GM DAILY 11/30 1534 AC PO Sitagliptin Phosphate 100 MG DAILY 12/01 0900 CAN PO Sodium Chloride 2 SPRAY Q4P PRN 11/30 1345 AC 11/30 KIM 2053 Sodium Chloride 1,000 ML .[id number] 11/30 1100 DC 11/30 IV 1414 Review of Systems Comments 18 pt ros reviewed pertinent positives and negatives in chart otherwise negative Past History Travel History Traveled to [place] past 21 day No Medical History Blood Transfusion Hx: Yes Neurological: TIA EENT: NONE, allergies Cardiovascular: hypertension, hyperlipidemia, CAROTID ARTERY STENOSIS BRADYCARDIA Respiratory: asthma, bronchitis, MRSA PNA Gastrointestinal: GERD Hepatic: NONE Renal: NONE Musculoskeletal: osteoarthritis, chronic back pain s/p spinal fusion; OA CARPAL TUNNEL Psychiatric: NONE Endocrine: NIDDM Blood Disorders: NONE Cancer(s): 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 Residential Facility Smoking Status: Never Smoked ETOH Use: denies use Illicit Drug Use: denies illicit drug use Exam & Diagnostic Data Last 24 Hrs of Vital Signs/I&O Vital Signs Date Time Temp Pulse Resp B/P B/P Pulse O2 O2 Flow FiO2 Mean Ox Delivery Rate 11/30 1921 Room Air Room Air 11/30 1245 97.8 68 18 152/62 98 11/30 1207 98.0 64 18 176/66 98 Room Air 11/30 0916 97.5 69 20 150/67 95 Room Air Intake & Output 11/30 1600 11/30 0800 11/30 0000 Intake Total 1700 Output Total 600 Balance 1100 Intake, IV 1700 Number 1 Bowel Movements Output, Urine 600 Patient 182 lb Weight Weight Chair scale Measurement Method Physical Exam Other Physical Findings: gen-awake,alert heent-ncat cvs-s1,s2 lungs-reduced bs at bases abd-soft,bs+ ext-without edema Last 48 Hrs of Labs/Chucky: Laboratory Tests 11/30/17 1056: Anion Gap 9, Estimated GFR > 60, BUN/Creatinine Ratio 23.8, Glucose 108 H, Calcium 9.6, Total Bilirubin 0.2, AST 27, ALT 26, Alkaline Phosphatase 101, Total Protein 6.5, Albumin 3.5, Globulin 3.0, Albumin/Globulin Ratio 1.2, PT 22.9 H, INR 2.09 H, APTT 31, CBC w Diff NO MAN DIFF REQ, RBC 3.80 L, MCV 83.7 , MCH 27.7, MCHC 33.1, RDW 14.6 H, MPV 7.3 L, Gran % 69.2, Lymphocytes % 18.2 L, Monocytes % 9.7 H, Eosinophils % 2.5, Basophils % 0.4, Absolute Granulocytes 6.4, Absolute Lymphocytes 1.7, Absolute Monocytes 0.9 H, Absolute Eosinophils 0.2, Absolute Basophils 0 Assessment/Plan Impression/Plan: Impression 71 year old woman * extensive back surgery history with drainage * History of RUE DVT * hx of asthma * hx of MRSA pna Plan -from the pulmonary perspective the patient has an acceptable risk to proceed with surgery -recommend aggressive incentive spirometry throughout hospitalization and especially in the immediate post-operative period -TRC/Nebs -check peak flows -f/u ID, cardiology recommendations -continue symbicort -on coumadin for DVT - however reversal for surgical intervention DVT prophylaxis at all times Consult Acknowledgment - Thank you for your consult request.
--- NOTE | 2017-11-30 19:59 | Cons- Cardiology ---
General Information and HPI Consulting Request Date of Consult: 11/30/17 Requested By: Dania HARRIS,Ray Rose Reason for Consult: Preoperative evaluation History of Present Illness: The patient is a pleasant 72-year-old female with history of hypertension, hyperlipidemia, TIA, and diabetes mellitus who was sent to the hospital for possible spinal infection. She underwent lumbar laminectomy in September 2017 for spinal stenosis. The surgery was complicated by postoperative bradycardia and junctional rhythm with hypotension. Xarelto was discontinued because of postoperative bleeding. She was found to have a right upper extremity DVT for which she was placed on IV heparin which was bridged to Coumadin. She was discharged to short-term rehab. She is now readmitted with drainage of purulent material from her surgical site with concern for possible abscess. She is planned for surgery. She denies any recent cardiac symptoms. No chest pain. No shortness of breath. No palpitations. No lightheadedness or dizziness. No nausea or vomiting. She has been receiving warfarin in rehab. She received vitamin K for reversal of the INR. INR will be rechecked, and FFP will be needed if necessary in preparation for surgery tomorrow. Allergies/Medications Allergies: Coded Allergies: Sulfa (Sulfonamide Antibiotics) (Intermediate, SKIN TURNS PURPLE/HOT 10/28/17) Penicillins (Mild, ITCHING 10/28/17) aspirin (HX GASTRITIS 10/28/17) ASA->BLEEDING atorvastatin (PER PT MED LIST 10/28/17) prednisone (Severe, VISION CHANGES 10/28/17) Uncoded Allergies: ENVIRONMENTAL (UNKNOWN 07/20/13) MULTIPLE ANTIBIOTICS (UNKNOWN 07/20/13) Home Med List: Albuterol Sulfate (Proair Hfa) 90 MCG HFA.AER.AD 2 PUF INH PRN ASTHMA/ ALLERGIES (Reported) Ascorbate Calcium (Vitamin C) 500 MG TABLET 1 TAB PO DAILY SUPPLEMENT ( Reported) Azelastine/Fluticasone (Dymista Nasal [place]) 137 MCG-50 MCG/SPRAY SPRAY.PUMP 1 SPRAY NASB PRN ALLERGIES (Reported) Budesonide/Formoterol Fumarate (Symbicort 160-4.5 Mcg Inhaler) 160 MCG-4.5 MCG/ ACTUATION HFA.AER.AD 2 PUFF INH BID ASTHMA/ALLERGIES (Reported) Cetirizine HCl (Zyrtec) 10 MG CAPSULE 1 CAP PO DAILY ALLERGIES (Reported) Cholecalciferol (Vitamin D3) (Vitamin D) 1,000 UNIT TABLET 1 TAB PO DAILY SUPPLEMENT (Reported) Ciprofloxacin HCl 750 MG TABLET 1 TAB PO BID ANTIBIOTIC, INFECTION (Reported) Cyclobenzaprine HCl 5 MG TABLET 1 TAB PO QHS MUSCLE SPASMS (Reported) Diltiazem HCl (Cartia Xt) 120 MG CAP.ER.24H 1 CAP PO DAILY CARDIAC (Reported) Glimepiride 2 MG TABLET 1.5 TAB PO DAILY DM (Reported) Hydrocodone/Acetaminophen (Hydrocodon-Acetaminophen 5-325) 5 MG-325 MG TABLET 1 TAB PO Q4 HRS NEEDED PRN PAIN SCALE 4-6 (MODERATE) Hydrocodone/Acetaminophen (Hydrocodon-Acetaminophen 5-325) 5 MG-325 MG TABLET 2 TAB PO Q4 HRS NEEDED PRN PAIN SCALE 7-10 (SEVERE) Iron Carb,Gl/FA/B12/C/Docusate (Ferralet 90 Tablet) 90 MG-1 MG-12 MCG-120 MG-50 MG TABLET 1 TAB PO DAILY IRON, VITAMIN (Reported) Lactobacillus Acidophilus (Acidophilus) 1 EACH CAPSULE 1 CAP PO DAILY GI ( Reported) Losartan/Hydrochlorothiazide (Losartan-Hctz 100-25 MG Tab) 100 MG-25 MG TABLET 1 TAB PO DAILY HTN (Reported) Melatonin 10 MG CAPSULE 1 CAP PO QPM SLEEP (Reported) Montelukast Sodium (Singulair) 10 MG TABLET 1 TAB PO DAILY ALLERGIES ( Reported) Multiple Vitamin (Multivitamins) 1 EACH TABLET 1 TAB PO DAILY SUPPLEMENT ( Reported) Multivit-Min/FA/Lutein/Zeaxant (Macular Vitamin Tablet) 500 MCG-5 MG-1 MG TABLET 1 TAB PO DAILY SUPPLEMENT (Reported) Omeprazole 40 MG CAPSULE.DR 1 CAP PO DAILY AC GERD (Reported) Ondansetron HCl (Zofran) 4 MG TABLET 1 TAB PO TID NAUSEA (Reported) Polyethylene Glycol 3350 (Miralax) 17 GRAM/DOSE POWDER 17 GM PO DAILY opiod constipation Sennosides/Docusate Sodium (Senna S Tablet) 8.6 MG-50 MG TABLET 2 TAB PO QPM CONSTIPATION (Reported) Sitagliptin Phosphate (Januvia) 100 MG TABLET 1 TAB PO DAILY DM (Reported) Current Medications: Current Medications Sig/Clementine Start time Last Medication Dose Route Stop Time Status Admin Acetaminophen 0 .STK-MED ONE 11/30 1123 DC IV Acetaminophen 1,000 MG Q6P PRN 11/30 1100 AC 11/30 N/A 1 UNIT IV 1132 Albuterol Sulfate 3 ML Q4-PRN PRN 11/30 1915 AC 11/30 INH 1918 Albuterol Sulfate 2 PUF Q4P PRN 11/30 1300 AC INH Budesonide/ 2 PUF BID 11/30 2100 AC 11/30 Formoterol Fumarate INH 1646 Diltiazem HCl 120 MG DAILY 12/01 0900 AC PO Docusate Sodium 100 MG QPM 11/30 2100 AC PO Fluticasone 2 SPRAY DAILY 11/30 1343 AC Propionate KIM Glimepiride 3 MG DAILY 12/01 0900 AC PO Hydrochlorothiazide 25 MG DAILY 12/01 0900 AC PO Losartan Potassium 100 MG DAILY 12/01 09 AC PO Montelukast Sodium 10 MG AT BEDTIME 11/30 2100 AC PO Morphine Sulfate 2 MG ONCE ONE 11/30 1130 DC IV 11/30 1131 Morphine Sulfate 2 MG Q2P PRN 11/30 1100 AC IV Ondansetron HCl 0 .STK-MED ONE 11/30 1123 DC .ROUTE Ondansetron HCl 4 MG Q8P PRN 11/30 1100 AC IV Pantoprazole Sodium 40 MG DAILY 11/30 1251 AC 11/30 IV 1648 Patient Medication 1 ED ONE ONE 11/30 1315 DC 11/30 Teaching ED 11/30 1316 1648 Phytonadione 5 MG ONCE ONE 11/30 1430 DC 11/30 PO 11/30 1431 1648 Polyethylene Glycol 17 GM DAILY 11/30 1534 AC PO Sitagliptin Phosphate 100 MG DAILY 12/01 0900 AC PO Sodium Chloride 2 SPRAY Q4P PRN 11/30 1345 AC KIM Sodium Chloride 1,000 ML .[id number] 11/30 1100 AC 11/30 IV 1414 Review of Systems Review of Systems: No hemoptysis. No hematemesis. No diaphoresis. All other systems were reviewed, and were noted to be negative. 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 Long Term Facility Smoking Status: Never Smoked ETOH Use: denies use Illicit Drug Use: denies illicit drug use Exam & Diagnostic Data Vital Signs and I&O Vital Signs Date Time Temp Pulse Resp B/P B/P Pulse O2 O2 Flow FiO2 Mean Ox Delivery Rate 11/30 1921 Room Air Room Air 11/30 1245 97.8 68 18 152/62 98 11/30 1207 98.0 64 18 176/66 98 Room Air 11/30 0916 97.5 69 20 150/67 95 Room Air Intake & Output 11/30 1600 11/30 0800 11/30 0000 11/29 1600 11/29 0800 11/29 0000 Intake Total 1700 Output Total 600 Balance 1100 Intake, IV 1700 Number 1 Bowel Movements Output, Urine 600 Patient 182 lb Weight Weight Chair scale Measurement Method Physical Exam: Gen: The patient is in no acute distress HEENT: Normal nose, ears, and oropharynx. Pupils equal bilaterally. Conjunctiva normal. Neck: Supple with no JVD, no masses, and no thyromegaly Lungs: Clear to auscultation with normal respiratory effort Heart: RRR, S1, S2, 1/6 systolic murmur. No peripheral edema, 2+ pulses in the lower extremities bilaterally Abdomen: Soft, nontender, no masses. No hepatomegaly. No splenomegaly Extremities: No clubbing or cyanosis. Normal muscle strength in the upper and lower extremities Skin: Normal skin turgor with no skin ulcers or lesions noted. Neuro: Cranial nerves intact. Sensation intact Psych: Alert and oriented x 3 with appropriate affect Labs/Chucky Results: Laboratory Tests 11/30 1056 Chemistry Sodium (137 - 145 mmol/L) 140 Potassium (3.5 - 5.1 mmol/L) 3.8 Chloride (98 - 107 mmol/L) 101 Carbon Dioxide (22 - 30 mmol/L) 30 Anion Gap (5 - 16) 9 BUN (7 - 17 mg/dL) 19 H Creatinine (0.5 - 1.0 mg/dL) 0.8 Estimated GFR (>60 ml/min) > 60 BUN/Creatinine Ratio (7 - 25 %) 23.8 Glucose (65 - 99 mg/dL) 108 H Calcium (8.4 - 10.2 mg/dL) 9.6 Total Bilirubin (0.2 - 1.3 mg/dL) 0.2 AST (14 - 36 U/L) 27 ALT (9 - 52 U/L) 26 Alkaline Phosphatase (<127 U/L) 101 Total Protein (6.3 - 8.2 g/dL) 6.5 Albumin (3.5 - 5.0 g/dL) 3.5 Globulin (1.9 - 4.2 gm/dL) 3.0 Albumin/Globulin Ratio (1.1 - 2.2 %) 1.2 Coagulation PT (9.4 - 12.5 SEC) 22.9 H INR (0.90 - 1.19) 2.09 H APTT (25 - 37 SEC) 31 Hematology CBC w Diff NO MAN DIFF REQ WBC (4.8 - 10.8 /CUMM) 9.2 RBC (4.20 - 5.40 /CUMM) 3.80 L Hgb (12.0 - 16.0 G/DL) 10.5 L Hct (37 - 47 %) 31.8 L MCV (81.0 - 99.0 FL) 83.7 MCH (27.0 - 31.0 PG) 27.7 MCHC (33.0 - 37.0 G/DL) 33.1 RDW (11.5 - 14.5 %) 14.6 H Plt Count (130 - 400 /CUMM) 334 MPV (7.4 - 10.4 FL) 7.3 L Gran % (42.2 - 75.2 %) 69.2 Lymphocytes % (20.5 - 51.1 %) 18.2 L Monocytes % (1.7 - 9.3 %) 9.7 H Eosinophils % (0 - 5 %) 2.5 Basophils % (0.0 - 2.0 %) 0.4 Absolute Granulocytes (1.4 - 6.5 /CUMM) 6.4 Absolute Lymphocytes (1.2 - 3.4 /CUMM) 1.7 Absolute Monocytes (0.10 - 0.60 /CUMM) 0.9 H Absolute Eosinophils (0.0 - 0.7 /CUMM) 0.2 Absolute Basophils (0.0 - 0.2 /CUMM) 0 Diagnostic Data EKG Results EKG tracing is independently reviewed, and reveals normal sinus rhythm at 66 with borderline inferior Q waves and nonspecific T-wave abnormality CXR Results Hypoexpanded but grossly clear lungs with no acute findings. Left-sided PICC line in place as described. Other Results Echo 08/05/14: 1. This was a technically difficult examination 2. Moderate aortic sclerosis is present with no evidence of valvular stenosis or insufficiency. 3. Mitral leaflet thickening is present with mild mitral insufficiency and mild left atrial dilatation. 4. There is no significant pericardial fluid present. 5. The left ventricular chamber size is normal with mild concentric hypertrophy and an ejection fraction of greater than 75% with no obvious resting wall motion abnormalities. 6. The right heart structures were not optimally visualized. Mild tricuspid insufficiency is noted. The RV systolic pressure was not accurately assessed. 7. Mild left ventricular diastolic dysfunction is noted. 8. The patient was tachycardic during the examination. Assessment/Plan Assessment/Plan The patient is a 72-year-old female with history of hypertension, TIA, type 2 diabetes mellitus, and recent lumbar laminectomy complicated by acute surgical blood loss, bradycardia with junctional rhythm, and right upper extremity deep vein thrombosis. She is admitted for increased drainage from her surgical site and concern for abscess. She is planned for surgery, and we are consulted for preoperative evaluation. She is stable from a cardiac standpoint with no recent cardiac symptoms. She does not have any known history of cardiac disease. Recommendations: * Cardiac risk for surgery is acceptable. The patient is cleared from a cardiac standpoint for the planned surgery. * I agree with reversal of INR with vitamin K +/- FFP. * Continue current cardiac medications per Consult Acknowledgment - Thank you for your consult request.
[2017-11-30 22:33] VITALS: BP 180/62
[2017-12-01 01:00] VITALS: BP 183/82
[2017-12-01 02:30] VITALS: BP 178/77
[2017-12-01 05:32] LABS: ABSOLUTE BASOPHIL COUNT 0 /CUMM (0.0-0.2); ABSOLUTE EOSINOPHIL COUNT 0.3 /CUMM (0.0-0.7); ABSOLUTE GRANULOCYTE CT 4.3 /CUMM (1.4-6.5); ABSOLUTE LYMPH COUNT 1.5 /CUMM (1.2-3.4); ABSOLUTE MONOCYTE COUNT 0.8 /CUMM (0.10-0.60); BASOPHIL % 0.3 % (0.0-2.0); EOSINOPHIL % 4.2 % (0-5); GRANULOCYTE % 62.3 % (42.2-75.2); HEMATOCRIT 29.1 % (37-47); MEAN CORPUSCULAR HGB 27.2 PG (27.0-31.0); MEAN CORPUSCULAR HGB CONC 32.5 G/DL (33.0-37.0); MEAN CORPUSCULAR VOLUME 83.7 FL (81.0-99.0); MEAN PLATELET VOLUME 7.4 FL (7.4-10.4); PLATELET COUNT 303 /CUMM (130-400); RBC DISTRIBUTION WIDTH 14.9 % (11.5-14.5); RED BLOOD CELL CT 3.47 /CUMM (4.20-5.40); WHITE BLOOD CELL COUNT 6.9 /CUMM (4.8-10.8)
[2017-12-01 05:40] LABS: PT 19.7 SEC (9.4-12.5)
[2017-12-01 06:11] VITALS: BP 170/64
--- NOTE | 2017-12-01 08:55 | PN- Medicine Consult ---
Brody HARRIS,Sadie 12/01/17 0854: Assessment/PlanMedical Consult Assessment/Plan Assessment: 72-year-old woman with multiple medical problems significant for 2 recent hospitalization status post laminectomy for spinal stenosis on 10/07/17 complicated by acute surgical blood loss anemia with bradycardia and hypotension requiring vasopressors and fluid resuscitation and right upper extremity DVT on Coumadin sent in from [facility] facility for increasing drainage from her midline surgical site. Presently patient otherwise feels well but is complaining of a new epigastric discomfort. Vital signs are significant only for an elevated systolic blood pressure ranging 150-176 and are otherwise within normal limits. Physical exam is significant for a large midline spinal surgical incision with sutures in place draining a clear scant amount of liquid; patient has a normal cardiopulmonary examination with a soft nontender abdomen. Labs including complete blood count, serum chemistry, and hepatic function panel are unremarkable; INR is 2.09. Chest x-ray demonstrates the presence of a left upper extremity PICC line. Lumbar spine x-ray demonstrates increased demineralization and compression deformity of the L2 vertebral body. Given patient's recent reported history of drainage of purulent material from her large midline surgical incision in her back there is clinical concern of a possible spinal abscess which will be evaluated by the primary surgical team. INR is therapeutic at 2.09 however should be reduced preoperatively. Problem list -Surgical site drainage of reported purulent material, possible spinal abscess -Recent laminectomy complicated with acute blood loss anemia -Epigastric abdominal discomfort, etiology unclear -Chronic back pain status post lumbar fusion -Right upper extremity DVT on Coumadin -Csc-loigxhz-apnhrqwxa diabetes mellitus -Osteoarthritis -GERD -History of MRSA -COPD, not on home oxygen -History of asthma/bronchitis -Hyperlipidemia -History of TIA Recommendations -Pre-/postoperative care per primary surgical team -I&D of surgical site, sent material for culture and Gram stain -Give oral vitamin K to reverse INR - today INR 1.8. - Cardiology agreeable with proceeding to surgery and risk stratified. - Follow off antibiotics per ID till cultures were sent. - Follow daily INR, hold Coumadin today -When surgical bleeding risk acceptable start IV heparin postoperatively while bridging back to Coumadin -Consider post operative placement on telemetry -Ensure DVT prophylaxis at all times Plan: as above Problem List: 1. Spinal abscess 2. Wound infection Subjective Subjective: seen and examined Reports sleeping well, no pain. Awaiting going for CT today. Review of Systems Constitutional: Reports: see HPI. EENTM: Reports: no symptoms. Cardiovascular: Reports: see HPI. Objective Last 24 Hrs of Vital Signs/I&O Vital Signs Date Time Temp Pulse Resp B/P B/P Pulse O2 O2 Flow FiO2 Mean Ox Delivery Rate 12/01 0611 98.3 72 20 170/64 97 Room Air 12/01 0230 68 178/77 12/01 0104 67 183/82 12/01 0100 67 183/82 11/30 2233 97.8 71 18 180/62 99 Room Air 11/30 1921 Room Air Room Air 11/30 1245 97.8 68 18 152/62 98 11/30 1207 98.0 64 18 176/66 98 Room Air 11/30 0916 97.5 69 20 150/67 95 Room Air Intake & Output 12/01 1600 12/01 0800 12/01 0000 Intake Total 700 1320 Output Total 750 Balance 700 570 Intake, IV 700 600 Intake, Oral 720 Number 0 Bowel Movements Output, Urine 750 Physical Exam General Appearance: well developed/nourished, no apparent distress, alert, awake , comfortable Head: atraumatic, normal appearance Ears, Nose, Throat: normal pharynx Neck: normal inspection, supple Cardiovascular: S1, S2 normal with possible systolic murmur Respiratory: normal breath sounds, chest non-tender, no respiratory distress Abdomen: normal bowel sounds, soft, non-tender Back: dressing present in the lumbar region Extremities: normal inspection, 2+ pitting edema Neurologic/Psychiatric: no motor/sensory deficits, awake, alert, oriented x 3 Skin: intact, normal color Current Medications: Current Medications Sig/Clementine Start time Last Medication Dose Route Stop Time Status Admin Acetaminophen 0 .STK-MED ONE 11/30 1123 DC IV Acetaminophen 1,000 MG Q6P PRN 11/30 1100 AC 12/01 N/A 1 UNIT IV 0515 Albuterol Sulfate 3 ML Q4-PRN PRN 11/30 191 AC 11/30 INH 1918 Albuterol Sulfate 2 PUF Q4P PRN 11/30 1300 AC INH Budesonide/ 2 PUF BID 11/30 2100 AC 12/01 Formoterol Fumarate INH 0847 Dextrose/Sodium 1,000 ML Q10H 11/30 2030 AC 12/01 Chloride IV 0905 Diltiazem HCl 120 MG DAILY 12/01 0900 AC 12/01 PO 0851 Docusate Sodium 100 MG QPM 11/30 2100 AC 11/30 PO 2054 Fluticasone 2 SPRAY DAILY 11/30 1343 AC 12/01 Propionate KIM 0855 Glimepiride 3 MG DAILY 12/01 0900 CAN PO Hydrochlorothiazide 25 MG DAILY 12/01 0900 DC PO Hydrochlorothiazide 25 MG DAILY 11/30 2145 AC 12/01 PO 0850 Hydrocodone Bitart/ 1 TAB Q4P PRN 12/01 0930 AC Acetaminophen PO Hydrocodone Bitart/ 2 TAB Q4 HRS NEEDED PRN 12/01 0930 AC Acetaminophen PO Hydrocodone Bitart/ 2 TAB ONCE ONE 11/30 2030 DC 11/30 Acetaminophen PO 11/30 203 2054 Insulin Aspart 0 TIDAC 12/01 0800 CAN SC Insulin Aspart 0 AT BEDTIME 11/30 2100 AC SC Insulin Human Regular 0 Q6 11/30 2359 AC 12/01 SC 0537 Losartan Potassium 100 MG DAILY 12/01 0900 DC PO Losartan Potassium 100 MG DAILY 11/30 2145 AC 12/01 PO 0851 Melatonin 10 MG AT BEDTIME NEED.. 11/30 2145 AC 11/30 PO 2157 Methadone HCl 10 MG .STK-MED ONE 11/30 2154 DC PO 11/30 2155 Montelukast Sodium 10 MG AT BEDTIME 11/30 2100 AC 11/30 PO 205 Morphine Sulfate 2 MG ONCE ONE 11/30 1130 DC IV 11/30 1131 Morphine Sulfate 2 MG Q2P PRN 11/30 1100 AC IV Ondansetron HCl 0 .STK-MED ONE 11/30 1123 DC .ROUTE Ondansetron HCl 4 MG Q8P PRN 11/30 1100 AC IV Pantoprazole Sodium 40 MG DAILY 11/30 1251 AC 12/01 IV 0859 Patient Medication 1 ED ONE ONE 11/30 1315 DC 11/30 Teaching ED 11/30 1316 1648 Phytonadione 5 MG ONCE ONE 12/01 0945 DC PO 12/01 0946 Phytonadione 5 MG ONCE ONE 11/30 1430 DC 11/30 PO 11/30 1431 1648 Polyethylene Glycol 17 GM DAILY 11/30 1534 AC 12/01 PO 0852 Sitagliptin Phosphate 100 MG DAILY 12/01 0900 CAN PO Sodium Chloride 2 SPRAY Q4P PRN 11/30 1345 AC 12/01 KIM 0858 Sodium Chloride 1,000 ML .[id number] 11/30 1100 DC 11/30 IV 1414 Results Last 24 Hrs Lab/Chucky Results: Laboratory Tests 12/01/17 0510: Anion Gap 8, Estimated GFR > 60, BUN/Creatinine Ratio 14.3, PT 19.7 H, INR 1.80 H, CBC w Diff NO MAN DIFF REQ, RBC 3.47 L, MCV 83.7, MCH 27.2, MCHC 32.5 L, RDW 14.9 H, MPV 7.4, Gran % 62.3, Lymphocytes % 22.0, Monocytes % 11.2 H, Eosinophils % 4.2, Basophils % 0.3, Absolute Granulocytes 4.3, Absolute Lymphocytes 1.5, Absolute Monocytes 0.8 H, Absolute Eosinophils 0.3, Absolute Basophils 0 11/30/17 1056: Anion Gap 9, Estimated GFR > 60, BUN/Creatinine Ratio 23.8, Glucose 108 H, Calcium 9.6, Total Bilirubin 0.2, AST 27, ALT 26, Alkaline Phosphatase 101, Total Protein 6.5, Albumin 3.5, Globulin 3.0, Albumin/Globulin Ratio 1.2, PT 22.9 H, INR 2.09 H, APTT 31, CBC w Diff NO MAN DIFF REQ, RBC 3.80 L, MCV 83.7 , MCH 27.7, MCHC 33.1, RDW 14.6 H, MPV 7.3 L, Gran % 69.2, Lymphocytes % 18.2 L, Monocytes % 9.7 H, Eosinophils % 2.5, Basophils % 0.4, Absolute Granulocytes 6.4, Absolute Lymphocytes 1.7, Absolute Monocytes 0.9 H, Absolute Eosinophils 0.2, Absolute Basophils 0 All Magana MD 12/01/17 1556: Attending MD Review Statement Attending Sign Off Attending Cosign Statement: I have: examined this patient, reviewed aval EMR data, discussd w/resident/PA/ UPTWISTER TENDER, discussed mgmt plan w/pt, agreed w/resident/PA/UPTWISTER TENDER, amended to note. Other Findings: The patient was seen and discussed with resident and nursing. Received additional oral Vitamin K today and if INR still above 1.5 will need FFP. To OR later today. No antibiotics at present as per ID.
--- NOTE | 2017-12-01 10:59 | PN- Pulmonary ---
Subjective HPI/Critical Care Issues: pt seen and examined no cough, no dyspnea, no cp, no delacruz, no n/v/d/c awaiting possible OR based on INR Objective Current Medications: Current Medications Sig/Clementine Start time Last Medication Dose Route Stop Time Status Admin Acetaminophen 0 .STK-MED ONE 11/30 1123 DC IV Acetaminophen 1,000 MG Q6P PRN 11/30 1100 AC 12/01 N/A 1 UNIT IV 0515 Albuterol Sulfate 3 ML Q4-PRN PRN 11/30 1915 AC 12/01 INH 1009 Albuterol Sulfate 2 PUF Q4P PRN 11/30 1300 AC INH Budesonide/ 2 PUF BID 11/30 2100 AC 12/01 Formoterol Fumarate INH 0847 Dextrose/Sodium 1,000 ML Q10H 11/30 2030 AC 12/01 Chloride IV 0905 Diltiazem HCl 120 MG DAILY 12/01 0900 AC 12/01 PO 0851 Docusate Sodium 100 MG QPM 11/30 2100 AC 11/30 PO 2054 Fluticasone 2 SPRAY DAILY 11/30 1343 AC 12/01 Propionate KIM 0855 Glimepiride 3 MG DAILY 12/01 0900 CAN PO Hydrochlorothiazide 25 MG DAILY 12/01 0900 DC PO Hydrochlorothiazide 25 MG DAILY 11/30 2145 AC 12/01 PO 0850 Hydrocodone Bitart/ 1 TAB Q4P PRN 12/01 0930 AC Acetaminophen PO Hydrocodone Bitart/ 2 TAB Q4 HRS NEEDED PRN 12/01 0930 AC Acetaminophen PO Hydrocodone Bitart/ 2 TAB ONCE ONE 11/30 2030 DC 11/30 Acetaminophen PO 11/30 Insulin Aspart 0 TIDAC 12/01 0800 CAN SC Insulin Aspart 0 AT BEDTIME 11/30 2100 AC SC Insulin Human Regular 0 Q6 11/30 2359 AC 12/01 SC 0537 Losartan Potassium 100 MG DAILY 12/01 0900 DC PO Losartan Potassium 100 MG DAILY 11/30 214 AC 12/01 PO 0851 Melatonin 10 MG AT BEDTIME NEED.. 11/30 2144 AC 11/30 PO 2156 Methadone HCl 10 MG .STK-MED ONE 11/30 2154 DC PO 11/30 215 Montelukast Sodium 10 MG AT BEDTIME 11/30 2100 AC 11/30 PO 2053 Morphine Sulfate 2 MG ONCE ONE 11/30 1130 DC IV 11/30 1131 Morphine Sulfate 2 MG Q2P PRN 11/30 1100 AC IV Ondansetron HCl 0 .STK-MED ONE 11/30 1123 DC .ROUTE Ondansetron HCl 4 MG Q8P PRN 11/30 1100 AC IV Pantoprazole Sodium 40 MG DAILY 11/30 1251 AC 12/01 IV 0859 Patient Medication 1 ED ONE ONE 11/30 1315 DC 11/30 Teaching ED 11/30 1316 1648 Phytonadione 5 MG ONCE ONE 12/01 0945 DC 12/01 PO 12/01 0946 1034 Phytonadione 5 MG ONCE ONE 11/30 1430 DC 11/30 PO 11/30 1431 1648 Polyethylene Glycol 17 GM DAILY 11/30 1534 AC 12/01 PO 0852 Sitagliptin Phosphate 100 MG DAILY 12/01 0900 CAN PO Sodium Chloride 2 SPRAY Q4P PRN 11/30 1345 AC 12/01 KIM 0858 Sodium Chloride 1,000 ML .[id number] 11/30 1100 DC 11/30 IV 1414 Vital Signs & I&O Last 24 Hrs of Vitals and I&O: Vital Signs Date Time Temp Pulse Resp B/P B/P Pulse O2 O2 Flow FiO2 Mean Ox Delivery Rate 12/01 1013 98 Room Air 12/01 0851 79 162/78 12/01 0611 98.3 72 20 170/64 97 Room Air 12/01 0230 68 178/77 12/01 0104 67 183/82 12/01 0100 67 183/82 11/30 2233 97.8 71 18 180/62 99 Room Air 11/30 1921 Room Air Room Air 11/30 1245 97.8 68 18 152/62 98 11/30 1207 98.0 64 18 176/66 98 Room Air Intake & Output 12/01 1600 12/01 0800 12/01 0000 Intake Total 700 1320 Output Total 750 Balance 700 570 Intake, IV 700 600 Intake, Oral 720 Number 0 Bowel Movements Output, Urine 750 Exam Other Physical Findings: gen-awake,alert heent-ncat cvs-s1,s2 lungs-reduced bs at bases abd-soft,bs+ ext-without edema Results Last 24 Hrs of Lab Results: Laboratory Tests 12/01/17 0510: Anion Gap 8, Estimated GFR > 60, BUN/Creatinine Ratio 14.3, PT 19.7 H, INR 1.80 H, CBC w Diff NO MAN DIFF REQ, RBC 3.47 L, MCV 83.7, MCH 27.2, MCHC 32.5 L, RDW 14.9 H, MPV 7.4, Gran % 62.3, Lymphocytes % 22.0, Monocytes % 11.2 H, Eosinophils % 4.2, Basophils % 0.3, Absolute Granulocytes 4.3, Absolute Lymphocytes 1.5, Absolute Monocytes 0.8 H, Absolute Eosinophils 0.3, Absolute Basophils 0 11/30/17 1056: Anion Gap 9, Estimated GFR > 60, BUN/Creatinine Ratio 23.8, Glucose 108 H, Calcium 9.6, Total Bilirubin 0.2, AST 27, ALT 26, Alkaline Phosphatase 101, Total Protein 6.5, Albumin 3.5, Globulin 3.0, Albumin/Globulin Ratio 1.2, PT 22.9 H, INR 2.09 H, APTT 31, CBC w Diff NO MAN DIFF REQ, RBC 3.80 L, MCV 83.7 , MCH 27.7, MCHC 33.1, RDW 14.6 H, MPV 7.3 L, Gran % 69.2, Lymphocytes % 18.2 L, Monocytes % 9.7 H, Eosinophils % 2.5, Basophils % 0.4, Absolute Granulocytes 6.4, Absolute Lymphocytes 1.7, Absolute Monocytes 0.9 H, Absolute Eosinophils 0.2, Absolute Basophils 0 Impression/Plan Impression/Plan Impression/Plan: Impression 71 year old woman * extensive back surgery history with drainage * History of RUE DVT * hx of asthma * hx of MRSA pna Plan -from the pulmonary perspective the patient has an acceptable risk to proceed with surgery -recommend aggressive incentive spirometry throughout hospitalization and especially in the immediate post-operative period -TRC/Nebs -check peak flows -f/u ID, cardiology recommendations -continue symbicort -on coumadin for DVT - however reversal for surgical intervention DVT prophylaxis at all times
[2017-12-01 13:13] VITALS: BP 152/48
--- NOTE | 2017-12-01 13:17 | CT SCAN REPORT ---
EXAMINATION: CT LUMBAR SPINE WITHOUT CONTRAST CLINICAL INFORMATION: L2 compression fracture, postop lumbar infection, history of fusion. COMPARISON: Lumbar spine MRI 11/25/2017. TECHNIQUE: Helical non-contrast CT images were obtained through the lumbar spine and 1.25 and 2.5 mm axial reconstructions were reviewed along with sagittal and coronal MPRs. FINDINGS: This study is very limited by significant artifact related to the patient's spinal fusion hardware. Redemonstrated postoperative changes following laminectomy and posterior instrumented lumbar interbody fusion at L2-S1. There are bilateral transpedicular screws with vertical connecting rods at the postoperative levels. The surgical hardware appears intact and there is no definite evidence of hardware loosening though assessment is limited by artifact. A upper endplate compression fracture at L2 associated with slight superior endplate retropulsion is likely similar to the 11/25/2017 MRI with marrow edema seen within the vertebral body on that exam. There is a fracture line paralleling the upper endplate and there is vacuum phenomenon within the L1-L2 disc. There is solid posterior lateral bone fusion mass spanning the L3-L5 levels. The L2 and L5 pedicle screws mildly extend beyond the anterior vertebral body cortex at these levels. Degenerative changes involving the SI joints bilaterally. Nondiagnostic assessment of the epidural fluid collection seen at the L2-L3 level on the recent MRI that was noted to be contiguous with a fluid collection filling the L3-L5 laminectomy beds with artifact resulting in nondiagnostic assessment of these areas on CT. There is likely similar moderate central canal stenosis at L1-L2 with assessment limited by artifact from the surgical hardware. The central canal and bony neural foramen at all lumbar levels are not diagnostically assessed secondary to artifact from the patient's surgical hardware. IMPRESSION: - Stable appearing postoperative changes following laminectomy and posterior instrumented lumbar interbody fusion at L2-S1. - Stable appearing mild superior endplate compression fracture at L2 with associated mild upper endplate retropulsion. This acute to subacute fracture was first noted on the 11/25/2017 and lumbar spine MRI. There is likely similar moderate central canal stenosis at L1-L2 with assessment limited by artifact from the surgical hardware. - Nondiagnostic assessment of the epidural fluid collection seen at the L2-L3 level on the recent MRI that was noted to be contiguous with a fluid collection filling the L3-L5 laminectomy beds with artifact resulting in nondiagnostic assessment of these areas on CT. - The central canal and bony neural foramen at all lumbar levels are not diagnostically assessed secondary to artifact from the patient's surgical hardware.
[2017-12-01 14:00] VITALS: BP 152/48
[2017-12-01 15:16] LABS: PT 17.9 SEC (9.4-12.5)
[2017-12-01 17:54] LABS: PT 15.1 SEC (9.4-12.5)
--- NOTE | 2017-12-01 21:19 | Operative Report ---
Operative/Inv Procedure Report Surgery Date: 12/01/17 Name of Procedure: Intraoperative consultation Pre-Operative Diagnosis: Draining lumbar wound, rule out infection, dehiscence Post-Operative Diagnosis: Same Estimated Blood Loss: to be determined Surgeon/Stem Dryer Maintainer: Dania HARRIS,Ray Rose Anesthesia: general endotracheal tube Monitors: None IV Fluids: See anesthesia note Implants: 9 Urine Output: See anesthesia note Drains: 2 Hemovacs Specimens: Multiple Microbiology: Multiple specimens Tourniquet: None Complications: 9 Condition: Stable Operative Indication: Ray Najera MD asked me to come in and see this woman while she was in side the operating room being explored for dehiscence of wound. The patient was a consultation was to determine just whether or not this woman had a deep infection and having a deep infection whether or not it was necessary to remove both the hardware and the bone graft material. This is a woman well known to me from her previous admission for her initial surgery Operative/Procedure Note Note: The patient had already been placed prone and had her back prepped and draped in usual sterile manner, the previous skin incision being reopened and tissue being removed for revision of scar There were small areas of grayish material at towards the base of the incision and a level that was above the aponeurosis. All bleeders were cauterized in this tissue sent for cultures Beyond that it was rapidly obvious that there was no dehiscence of the aponeurosis itself nor was there any seepage of purulent material from under this aponeurosis The aponeurosis was then opened and direct inspection of the dura being covered with granulation tissue as well as of the screws and rods and the graft material was done. At no point was there any collection of purulent material nor was there any granulation tissue that appeared particularly suspicious for infection. It was notable that the graft material on both side was already beginning to form a solid bone and integrating into the underlying bony bed Multiple specimens were taken but in the absence of any obvious infection was of the opinion that the hardware should be left in place and likewise the graft material in the process of becoming integrated. The patient after that underwent Pulsavac irrigation with 4 L of antibiotic soaked solution and 2 Hemovacs were placed in the epidural space Following this the closure was accomplished in the standard fashion will be dictated separately Findings: No evidence of deep infection by prolonged examination Discharge Disposition: PACU Additional Comments: Obviously the findings might be subject to revision should the cultures in depth prove the existence of an active infection CC: Dania HARRIS,Ray Rose
[2017-12-01 22:05] VITALS: BP 140/70
[2017-12-01 22:25] LABS: PT 14.4 SEC (9.4-12.5)
[2017-12-02 05:53] LABS: ABSOLUTE BASOPHIL COUNT 0 /CUMM (0.0-0.2); ABSOLUTE EOSINOPHIL COUNT 0 /CUMM (0.0-0.7); ABSOLUTE GRANULOCYTE CT 9.2 /CUMM (1.4-6.5); ABSOLUTE LYMPH COUNT 0.8 /CUMM (1.2-3.4); ABSOLUTE MONOCYTE COUNT 0.2 /CUMM (0.10-0.60); BASOPHIL % 0.2 % (0.0-2.0); EOSINOPHIL % 0 % (0-5); HEMATOCRIT 24.2 % (37-47); MEAN CORPUSCULAR HGB 27.2 PG (27.0-31.0); MEAN CORPUSCULAR HGB CONC 32.7 G/DL (33.0-37.0); MEAN CORPUSCULAR VOLUME 83.3 FL (81.0-99.0); MEAN PLATELET VOLUME 7.7 FL (7.4-10.4); PLATELET COUNT 288 /CUMM (130-400); RBC DISTRIBUTION WIDTH 14.9 % (11.5-14.5); RED BLOOD CELL CT 2.91 /CUMM (4.20-5.40); WHITE BLOOD CELL COUNT 10.3 /CUMM (4.8-10.8)
[2017-12-02 07:06] VITALS: BP 146/64
--- NOTE | 2017-12-02 07:42 | PN- Neurosurgical ---
See Addendum Subjective Subjective: feeling ok, very sore at incision, denies parasthesias. +uo via day, no oob yet, little po intake. Objective Vital Signs and I&Os Vital Signs Date Time Temp Pulse Resp B/P B/P Pulse O2 O2 Flow FiO2 Mean Ox Delivery Rate 12/02 0706 97.6 70 18 146/64 98 12/02 0000 97 Nasal 1.5L Cannula 12/01 2226 97 Nasal 1.5L Cannula 12/01 2205 97.7 76 18 140/70 100 Nasal 1.5L Cannula 12/01 1400 98.4 74 20 152/48 95 Room Air 12/01 1313 74 152/48 12/01 1013 98 Room Air 12/01 0851 79 162/78 12/01 0800 Room Air Intake & Output 12/02 0800 12/02 0000 12/01 1600 12/01 0800 12/01 0000 11/30 1600 Intake Total 2657 134 6735 1700 Output Total 430 25 750 600 Balance 610 -25 741 889 7463 Intake, IV 800 420 966 9801 Intake, Oral 240 720 Number 0 1 Bowel Movements Output, 80 25 Drainage Output, Urine 350 750 600 Patient 182 lb Weight Weight Chair scale Measurement Method Physical Exam: gen- nad card-s1s2 rrr pulm- ctab abd- soft nt obese back- incision w large bulky dressing- cdi. jpx2, both serosang, 80cc out overnight total ext- calves soft nt, alps on bl, palp pedal pulses, gross sensation intact ble, +dorsi/plantarflexion bl Assessment/Plan Assessment/Plan POD1 sp lumbar wound exploration/i&d, on vanco/cipro, stable with inciisonal pain, awaiting OR culture results P- cont current abx, await further input from ID based on OR cultures prn po pain meds labs pdg oob, ambulate home meds hepsq, alps ada diet riss, fs hl, dc day. will dw attending Core Measures Venous Thromboembolism VTE Risk Factors Surgery No Mechanical VTE Prophylaxis d/t N/A MechProphylax Ordered No VTE Pharm Prophylaxis d/t Surgical Contraindication
--- NOTE | 2017-12-02 09:03 | PN- Medicine Consult ---
Brody HARRIS,Sadie 12/02/17 0900: Assessment/PlanMedical Consult Assessment/Plan Assessment: 72-year-old woman with multiple medical problems significant for 2 recent hospitalization status post laminectomy for spinal stenosis on 10/07/17 complicated by acute surgical blood loss anemia with bradycardia and hypotension requiring vasopressors and fluid resuscitation and right upper extremity DVT on Coumadin sent in from [facility] facility for increasing drainage from her midline surgical site. Presently patient otherwise feels well but is complaining of a new epigastric discomfort. Vital signs are significant only for an elevated systolic blood pressure ranging 150-176 and are otherwise within normal limits. Physical exam is significant for a large midline spinal surgical incision with sutures in place draining a clear scant amount of liquid; patient has a normal cardiopulmonary examination with a soft nontender abdomen. Labs including complete blood count, serum chemistry, and hepatic function panel are unremarkable; INR is 2.09. Chest x-ray demonstrates the presence of a left upper extremity PICC line. Lumbar spine x-ray demonstrates increased demineralization and compression deformity of the L2 vertebral body. Given patient's recent reported history of drainage of purulent material from her large midline surgical incision in her back there is clinical concern of a possible spinal abscess which will be evaluated by the primary surgical team. INR is therapeutic at 2.09 however should be reduced preoperatively. Problem list -Surgical site drainage of reported purulent material, possible spinal abscess -Recent laminectomy complicated with acute blood loss anemia -Epigastric abdominal discomfort, etiology unclear -Chronic back pain status post lumbar fusion -Right upper extremity DVT on Coumadin -[id number]-nadmhbimi diabetes mellitus -Osteoarthritis -GERD -History of MRSA -COPD, not on home oxygen -History of asthma/bronchitis -Hyperlipidemia -History of TIA Recommendations -Postoperative care per primary surgical team -I&D of surgical site - await cultures - Cardiology agreeable with proceeding to surgery and risk stratified. - Follow off antibiotics for now -When surgical bleeding risk acceptable start IV heparin postoperatively while bridging back to Coumadin - check INR daily. -Consider post operative placement on telemetry -Ensure DVT prophylaxis at all times Plan: as above Problem List: 1. Cellulitis of back 2. Wound infection 3. Wound dehiscence Subjective Subjective: seen at bedside Reports significant back pain. still in distress. otherwise no issues. concerned about need for removal of hardware. Review of Systems Constitutional: Reports: see HPI. Objective Last 24 Hrs of Vital Signs/I&O Vital Signs Date Time Temp Pulse Resp B/P B/P Pulse O2 O2 Flow FiO2 Mean Ox Delivery Rate 12/02 0858 125/52 12/02 0706 97.6 70 18 146/64 98 12/02 0000 97 Nasal 1.5L Cannula 12/01 2226 97 Nasal 1.5L Cannula 12/01 2205 97.7 76 18 140/70 100 Nasal 1.5L Cannula 12/01 1400 98.4 74 20 152/48 95 Room Air 12/01 1313 74 152/48 12/01 1013 98 Room Air Intake & Output 12/02 1600 12/02 0800 12/02 0000 Intake Total 1040 Output Total 430 25 Balance 610 -25 Intake, IV 800 Intake, Oral 240 Output, 80 25 Drainage Output, Urine 350 Physical Exam General Appearance: well developed/nourished, alert, awake, comfortable Head: atraumatic, normal appearance Ears, Nose, Throat: normal pharynx Neck: normal inspection, supple Cardiovascular: regular rate/rhythm, normal peripheral pulses Respiratory: normal breath sounds, chest non-tender, no respiratory distress Peripheral Pulses: 2+ radial (R), 2+ radial (L) Abdomen: normal bowel sounds, soft, brace around th back to the front Back: dressing present on the back Extremities: normal inspection, normal capillary refill Current Medications: Current Medications Sig/Clementine Start time Last Medication Dose Route Stop Time Status Admin Acetaminophen 500 MG Q4-6 PRN PRN 12/01 2115 AC PO Albuterol Sulfate 3 ML Q4-PRN PRN 11/30 1915 AC 12/01 INH 1009 Albuterol Sulfate 2 PUF Q4P PRN 11/30 1300 AC INH Budesonide/ 2 PUF BID 11/30 2100 AC 12/03 Formoterol Fumarate INH 0801 Ciprofloxacin 750 MG BID 12/02 09 AC 12/03 PO 12/06 0859 0945 Diltiazem HCl 120 MG DAILY 12/01 0900 AC 12/03 PO 0808 Docusate Sodium 100 MG BID 12/02 0900 AC 12/02 PO 2107 Fluticasone 2 SPRAY DAILY 11/30 1343 AC 12/03 Propionate KIM 0802 Heparin Sodium 5,000 UNIT Q8 12/02 06 AC 12/03 (Porcine) SC 0546 Hydrochlorothiazide 25 MG DAILY 11/30 2145 AC 12/03 PO 0807 Hydrocodone Bitart/ 1 TAB Q4P PRN 12/01 0930 AC Acetaminophen PO Hydrocodone Bitart/ 2 TAB Q4 HRS NEEDED PRN 12/01 0930 AC 12/03 Acetaminophen PO 0759 Insulin Aspart 0 AT BEDTIME 11/30 2100 AC SC Insulin Human Regular 0 TIDAC/HS 12/02 0800 AC 12/03 SC 0804 Lactobacillus 1 CAP BID 12/02 1018 AC 12/03 Acidophilus PO 0807 Losartan Potassium 100 MG DAILY 11/30 214 AC 12/03 PO 0808 Melatonin 10 MG .STK-MED ONE 12/02 2052 DC PO 12/02 205 Melatonin 10 MG AT BEDTIME NEED.. 11/30 214 AC 12/02 PO 210 Montelukast Sodium 10 MG AT BEDTIME 11/30 2100 AC 12/02 PO 210 Morphine Sulfate 2 MG Q2P PRN 11/30 1100 AC 12/03 IV 0902 Omeprazole 40 MG DAILY AC 12/02 0739 AC 12/03 PO 0546 Ondansetron HCl 4 MG Q8P PRN 11/30 1100 AC IV Polyethylene Glycol 17 GM DAILY 11/30 1534 AC 12/03 PO 0800 Sodium Chloride 2 SPRAY Q4P PRN 11/30 1345 AC 12/03 KIM 0802 Vancomycin HCl 1,250 MG DAILY 12/03 0900 AC 12/03 Sodium Chloride 250 ML IV 0947 Vancomycin HCl 1,000 MG Q12 12/02 0900 DC 12/02 Sodium Chloride 250 ML IV 0910 Results Last 24 Hrs Lab/Chucky Results: Laboratory Tests 12/03/17 0611: Anion Gap 7, Estimated GFR > 60, BUN/Creatinine Ratio 21.3, Glucose 125 H, CBC w Diff NO MAN DIFF REQ, RBC 3.70 L, MCV 83.5, MCH 27.0, MCHC 32.4 L, RDW 15.1 H, MPV 8.4, Gran % 73.4, Lymphocytes % 16.0 L, Monocytes % 10.0 H, Eosinophils % 0.2, Basophils % 0.4, Absolute Granulocytes 6.0, Absolute Lymphocytes 1.3, Absolute Monocytes 0.8 H, Absolute Eosinophils 0, Absolute Basophils 0 All Magana MD 12/02/17 1541: Attending MD Review Statement Attending Sign Off Attending Cosign Statement: I have: examined this patient, reviewed [facility] EMR data, discussed mgmt plan w/ anna marie, discussed mgmt plan w/pt, agreed w/resident/PA/INDUSTRIAL LOCOMOTIVE OPERATOR, amended to note. Other Findings: The patient was seen and discussed with house staff and nursing as well as pulmonary (Dr. Kahn). The patient is experiencing significant pain. Hardware remains in place and patient is now on Vanco/Cipro as per ID. INR yesterday was 1.35. Need to make decision regarding anti-coagulation. If OK with surgery would consider Lovenox and restart Coumadin. If there is a plan for surgery in the very near future would hold off on Coumadin and just use Lovenox.
--- NOTE | 2017-12-02 11:30 | PN- Cardiology ---
Subjective Subjective: Clinically, the patient is stable from a cardiac standpoint. She remains very upset and discouraged about the surgical issues and infection. Objective Vital Signs and I&Os Vital Signs Date Time Temp Pulse Resp B/P B/P Pulse O2 O2 Flow FiO2 Mean Ox Delivery Rate 12/02 1045 95 Room Air 12/02 0858 125/52 12/02 0800 Room Air 12/02 0706 97.6 70 18 146/64 98 12/02 0000 97 Nasal 1.5L Cannula 12/01 2226 97 Nasal 1.5L Cannula 12/01 2205 97.7 76 18 140/70 100 Nasal 1.5L Cannula 12/01 1400 98.4 74 20 152/48 95 Room Air 12/01 1313 74 152/48 Intake & Output 12/02 1600 12/02 0800 12/02 0000 12/01 1600 12/01 0800 12/01 0000 Intake Total 4354 594 8308 Output Total 430 25 750 Balance 610 -25 700 570 Intake, IV 800 700 600 Intake, Oral 240 720 Number 0 Bowel Movements Output, 80 25 Drainage Output, Urine 350 750 Current Medications: Current Medications Sig/Clementine Start time Last Medication Dose Route Stop Time Status Admin Acetaminophen 500 MG Q4-6 PRN PRN 12/01 2114 AC PO Acetaminophen 1,000 MG Q6P PRN 11/30 1100 DC 12/01 N/A 1 UNIT IV 0515 Albuterol Sulfate 3 ML Q4-PRN PRN 11/30 1915 AC 12/01 INH 1009 Albuterol Sulfate 2 PUF Q4P PRN 11/30 1300 AC INH Budesonide/ 2 PUF BID 11/30 2100 AC 12/02 Formoterol Fumarate INH 0848 Ciprofloxacin 750 MG BID 12/02 0900 AC 12/02 PO 12/06 0859 0924 Dexamethasone 8 MG .STK-MED ONE 12/01 1542 DC IM 12/01 1543 Dextrose/Sodium 1,000 ML Q10H 11/30 2030 DC 12/02 Chloride IV 0655 Diltiazem HCl 120 MG DAILY 12/01 0900 AC 12/02 PO 0853 Docusate Sodium 100 MG BID 12/02 09 AC PO Docusate Sodium 100 MG QPM 11/30 2100 DC 11/30 PO 2054 Fentanyl Citrate 250 MCG .STK-MED ONE 12/01 1542 DC IM 12/01 1543 Fluticasone 2 SPRAY DAILY 11/30 1343 AC 12/02 Propionate KIM 0852 Heparin Sodium 5,000 UNIT Q8 12/02 0600 AC 12/02 (Porcine) SC 0503 Hydrochlorothiazide 25 MG DAILY 11/30 2145 AC 12/02 PO 0852 Hydrocodone Bitart/ 1 TAB Q4P PRN 12/01 0930 AC Acetaminophen PO Hydrocodone Bitart/ 2 TAB Q4 HRS NEEDED PRN 12/01 0930 AC 12/02 Acetaminophen PO 0908 Hydromorphone HCl 2 MG .STK-MED ONE 12/01 2120 DC IM 12/01 212 Hydromorphone HCl 2 MG .STK-MED ONE 12/01 1541 DC IM 12/01 1542 Insulin Aspart 0 AT BEDTIME 11/30 2100 AC SC Insulin Human Regular 0 TIDAC/HS 12/02 0800 12/02 SC 0850 Insulin Human Regular 4 UNITS .STK-MED ONE 12/01 1258 DC IV 12/01 1259 Insulin Human Regular 0 Q6 11/30 2359 DC 12/01 SC 1310 Lactobacillus 1 CAP BID 12/02 1018 AC Acidophilus PO Losartan Potassium 100 MG DAILY 11/30 2145 12/02 PO 0858 Melatonin 10 MG AT BEDTIME NEED.. 11/30 2145 11/30 PO 2157 Midazolam HCl 2 MG .STK-MED ONE 12/01 1542 DC IM 12/01 1543 Montelukast Sodium 10 MG AT BEDTIME 11/30 2100 AC 11/30 PO 2054 Morphine Sulfate 2 MG Q2P PRN 11/30 1100 AC 12/02 IV 1058 Omeprazole 40 MG DAILY AC 12/02 0739 12/02 PO 0846 Ondansetron HCl 8 MG .STK-MED ONE 12/01 1542 DC IM 12/01 1543 Ondansetron HCl 4 MG Q8P PRN 11/30 1100 AC IV Pantoprazole Sodium 40 MG DAILY 11/30 1251 DC 12/01 IV 0859 Patient Medication 1 ED ONE ONE 12/01 1630 DC 12/01 Teaching ED 12/01 1631 2227 Polyethylene Glycol 17 GM DAILY 11/30 1534 AC 12/02 PO 0847 Sodium Chloride 2 SPRAY Q4P PRN 11/30 1345 AC 12/02 KIM 0853 Vancomycin HCl 1,000 MG Q12 12/02 0900 AC 12/02 Sodium Chloride 250 ML IV 0910 Results Last 48 Hrs of Labs/Mics: Laboratory Tests 12/02/17 0530: Anion Gap 8, Estimated GFR > 60, BUN/Creatinine Ratio 12.9, CBC w Diff NO MAN DIFF REQ, RBC 2.91 L, MCV 83.3, MCH 27.2, MCHC 32.7 L, RDW 14.9 H, MPV 7.7, Gran % 90.0 H, Lymphocytes % 7.8 L, Monocytes % 2.0, Eosinophils % 0, Basophils % 0.2, Absolute Granulocytes 9.2 H, Absolute Lymphocytes 0.8 L, Absolute Monocytes 0.2, Absolute Eosinophils 0, Absolute Basophils 0 12/01/17 2145: PT 14.4 H, INR 1.32 H 12/01/17 1742: PT 15.1 H, INR 1.38 H 12/01/17 1425: PT 17.9 H, INR 1.63 H 12/01/17 0510: Anion Gap 8, Estimated GFR > 60, BUN/Creatinine Ratio 14.3, PT 19.7 H, INR 1.80 H, CBC w Diff NO MAN DIFF REQ, RBC 3.47 L, MCV 83.7, MCH 27.2, MCHC 32.5 L, RDW 14.9 H, MPV 7.4, Gran % 62.3, Lymphocytes % 22.0, Monocytes % 11.2 H, Eosinophils % 4.2, Basophils % 0.3, Absolute Granulocytes 4.3, Absolute Lymphocytes 1.5, Absolute Monocytes 0.8 H, Absolute Eosinophils 0.3, Absolute Basophils 0 Assessment/Plan Assessment/Plan Assessment: 1. Postoperative wound infection following lumbar laminectomy 2. 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 History of hypertension 4. Type 2 diabetes 5. Prior TIA 6. Worsening normocytic anemia Recommendations: -The patient appears to be stable post operatively. She is quite pale today. CBCs shows that her hemoglobin and hematocrit has decreased to 7.9/24.2 -Continue close monitoring of hemoglobin and hematocrit and consider transfusion if necessary -Continue regular cardiac medications -Continue as per the surgery and infectious disease services. Continue telemetry? No
--- NOTE | 2017-12-02 11:46 | PN- Infect Dx ---
Subjective Subjective: Afebrile. She complains of a significant amount of back pain but she has been ambulating and is sitting in a chair. Objective Last 24 Hrs of Vital Signs/I&O Vital Signs Date Time Temp Pulse Resp B/P B/P Pulse O2 O2 Flow FiO2 Mean Ox Delivery Rate 12/02 1045 95 Room Air 12/02 0858 125/52 12/02 0800 Room Air 12/02 0706 97.6 70 18 146/64 98 12/02 0000 97 Nasal 1.5L Cannula 12/01 2226 97 Nasal 1.5L Cannula 12/01 2205 97.7 76 18 140/70 100 Nasal 1.5L Cannula 12/01 1400 98.4 74 20 152/48 95 Room Air 12/01 1313 74 152/48 Intake & Output 12/02 1600 12/02 0800 12/02 0000 Intake Total 1040 Output Total 430 25 Balance 610 -25 Intake, IV 800 Intake, Oral 240 Output, 80 25 Drainage Output, Urine 350 Physical Exam Other Physical Findings: She appears comfortable in no acute distress Lungs are clear Heart regular rhythm without murmur Back dressing intact Extremities PICC in the left upper extremity with no inflammation at the site Castillo catheter is in place Results Last 24 Hours of Lab Results: Laboratory Tests 12/02 12/01 12/01 0530 2145 1742 Chemistry Sodium (137 - 145 mmol/L) 139 Potassium (3.5 - 5.1 mmol/L) 4.1 Chloride (98 - 107 mmol/L) 103 Carbon Dioxide (22 - 30 mmol/L) 29 Anion Gap (5 - 16) 8 BUN (7 - 17 mg/dL) 9 Creatinine (0.5 - 1.0 mg/dL) 0.7 Estimated GFR (>60 ml/min) > 60 BUN/Creatinine Ratio (7 - 25 %) 12.9 Coagulation PT (9.4 - 12.5 SEC) 14.4 H 15.1 H INR (0.90 - 1.19) 1.32 H 1.38 H Hematology CBC w Diff NO MAN DIFF REQ WBC (4.8 - 10.8 /CUMM) 10.3 RBC (4.20 - 5.40 /CUMM) 2.91 L Hgb (12.0 - 16.0 G/DL) 7.9 L Hct (37 - 47 %) 24.2 L MCV (81.0 - 99.0 FL) 83.3 MCH (27.0 - 31.0 PG) 27.2 MCHC (33.0 - 37.0 G/DL) 32.7 L RDW (11.5 - 14.5 %) 14.9 H Plt Count (130 - 400 /CUMM) 288 MPV (7.4 - 10.4 FL) 7.7 Gran % (42.2 - 75.2 %) 90.0 H Lymphocytes % (20.5 - 51.1 %) 7.8 L Monocytes % (1.7 - 9.3 %) 2.0 Eosinophils % (0 - 5 %) 0 Basophils % (0.0 - 2.0 %) 0.2 Absolute Granulocytes (1.4 - 6.5 /CUMM) 9.2 H Absolute Lymphocytes (1.2 - 3.4 /CUMM) 0.8 L Absolute Monocytes (0.10 - 0.60 /CUMM) 0.2 Absolute Eosinophils (0.0 - 0.7 /CUMM) 0 Absolute Basophils (0.0 - 0.2 /CUMM) 0 12/01 1425 Coagulation PT (9.4 - 12.5 SEC) 17.9 H INR (0.90 - 1.19) 1.63 H Last 24 Hours of Chucky Results: OR culture December 01 labeled fat necrosis superficial positive for Staph species Multiple other OR cultures December 01 negative so far Urine culture December 01 negative Recent Imaging Studies: CT of the lumbar spine December 01 revealed stable appearing postop changes; stable appearing mild superior endplate compression fracture at L2; limited assessment of the L2-L3 and L3 L5 epidural fluid collections seen on the MRI secondary to artifact Assessment/Plan ID Impression: Stable, with temperatures and white blood cell count remaining normal, status post exploration and I&D of the lumbar wound because of persistent drainage from the incision following surgery 8 weeks prior to admission for a surgical site infection (secondary to Klebsiella) following a decompressive lumbar laminectomy L2-S1. She is now on Vancomycin in addition to the Ciprofloxacin that she was on prior to admission, with one OR culture positive for Staph species, and she can be continued on this antibiotic regimen pending final OR cultures. Of note the hardware was not removed and, if it is infected, her infection will not clear without its removal. Suggestion: 1. Follow-up final OR cultures 2. Remove Castillo catheter as soon as possible 3. Decrease Vancomycin to 1250 mg IV every 24 hours 4. Continue Ciprofloxacin
--- NOTE | 2017-12-02 11:51 | PN- Pulmonary ---
Subjective HPI/Critical Care Issues: pt seen and examined pain post OR s/p washout respiratory status at baseline Objective Current Medications: Current Medications Sig/Clementine Start time Last Medication Dose Route Stop Time Status Admin Acetaminophen 500 MG Q4-6 PRN PRN 12/01 2115 AC PO Acetaminophen 1,000 MG Q6P PRN 11/30 1100 DC 12/01 N/A 1 UNIT IV 0515 Albuterol Sulfate 3 ML Q4-PRN PRN 11/30 1915 AC 12/01 INH 1009 Albuterol Sulfate 2 PUF Q4P PRN 11/30 1300 AC INH Budesonide/ 2 PUF BID 11/30 2100 AC 12/02 Formoterol Fumarate INH 0848 Ciprofloxacin 750 MG BID 12/02 0900 AC 12/02 PO 12/06 0859 0924 Dexamethasone 8 MG .STK-MED ONE 12/01 1542 DC IM 12/01 1543 Dextrose/Sodium 1,000 ML Q10H 11/30 2030 DC 12/02 Chloride IV 0655 Diltiazem HCl 120 MG DAILY 12/01 0900 AC 12/02 PO 0853 Docusate Sodium 100 MG BID 12/02 0900 AC PO Docusate Sodium 100 MG QPM 11/30 2100 DC 11/30 PO 2054 Fentanyl Citrate 250 MCG .STK-MED ONE 12/01 1542 DC IM 12/01 1543 Fluticasone 2 SPRAY DAILY 11/30 1343 AC 12/02 Propionate KIM 0852 Heparin Sodium 5,000 UNIT Q8 12/02 0600 AC 12/02 (Porcine) SC 0503 Hydrochlorothiazide 25 MG DAILY 11/30 2145 AC 12/02 PO 0852 Hydrocodone Bitart/ 1 TAB Q4P PRN 12/01 0930 AC Acetaminophen PO Hydrocodone Bitart/ 2 TAB Q4 HRS NEEDED PRN 12/01 0930 AC 12/02 Acetaminophen PO 0908 Hydromorphone HCl 2 MG .STK-MED ONE 12/01 2120 DC IM 12/01 2121 Hydromorphone HCl 2 MG .STK-MED ONE 12/01 1541 DC IM 12/01 1542 Insulin Aspart 0 AT BEDTIME 11/30 2100 AC SC Insulin Human Regular 0 TIDAC/HS 12/02 0800 AC 12/02 SC 0850 Insulin Human Regular 4 UNITS .STK-MED ONE 12/01 1258 DC IV 12/01 1259 Insulin Human Regular 0 Q6 11/30 2359 DC 12/01 SC 1310 Lactobacillus 1 CAP BID 12/02 1018 AC Acidophilus PO Losartan Potassium 100 MG DAILY 11/30 2145 12/02 PO 0858 Melatonin 10 MG AT BEDTIME NEED.. 11/30 2145 11/30 PO 2157 Midazolam HCl 2 MG .STK-MED ONE 12/01 1542 DC IM 12/01 1543 Montelukast Sodium 10 MG AT BEDTIME 11/30 2100 11/30 PO 2054 Morphine Sulfate 2 MG Q2P PRN 11/30 1100 12/02 IV 1058 Omeprazole 40 MG DAILY AC 12/02 0739 12/02 PO 0846 Ondansetron HCl 8 MG .STK-MED ONE 12/01 1542 DC IM 12/01 1543 Ondansetron HCl 4 MG Q8P PRN 11/30 1100 AC IV Pantoprazole Sodium 40 MG DAILY 11/30 1251 [place] 12/01 IV 0859 Patient Medication 1 ED ONE ONE 12/01 1630 [place] 12/01 Teaching ED 12/01 1631 2227 Polyethylene Glycol 17 GM DAILY 11/30 1534 12/02 PO 0847 Sodium Chloride 2 SPRAY Q4P PRN 11/30 1345 12/02 KIM 0853 Vancomycin HCl 1,000 MG Q12 12/02 0900 12/02 Sodium Chloride 250 ML IV 0910 Vital Signs & I&O Last 24 Hrs of Vitals and I&O: Vital Signs Date Time Temp Pulse Resp B/P B/P Pulse O2 O2 Flow FiO2 Mean Ox Delivery Rate 12/02 1045 95 Room Air 12/02 0858 125/52 12/02 0800 Room Air 12/02 0706 97.6 70 18 146/64 98 12/02 0000 97 Nasal 1.5L Cannula 12/01 2226 97 Nasal 1.5L Cannula 12/01 2205 97.7 76 18 140/70 100 Nasal 1.5L Cannula 12/01 1400 98.4 74 20 152/48 95 Room Air 12/01 1313 74 152/48 Intake & Output 12/02 1600 12/02 0800 12/02 0000 Intake Total 1040 Output Total 430 25 Balance 610 -25 Intake, IV 800 Intake, Oral 240 Output, 80 25 Drainage Output, Urine 350 Exam Other Physical Findings: gen-awake,alert heent-ncat cvs-s1,s2 lungs-reduced bs at bases abd-soft,bs+ ext-without edema Results Last 24 Hrs of Lab Results: Laboratory Tests 12/02/17 0530: Anion Gap 8, Estimated GFR > 60, BUN/Creatinine Ratio 12.9, CBC w Diff NO MAN DIFF REQ, RBC 2.91 L, MCV 83.3, MCH 27.2, MCHC 32.7 L, RDW 14.9 H, MPV 7.7, Gran % 90.0 H, Lymphocytes % 7.8 L, Monocytes % 2.0, Eosinophils % 0, Basophils % 0.2, Absolute Granulocytes 9.2 H, Absolute Lymphocytes 0.8 L, Absolute Monocytes 0.2, Absolute Eosinophils 0, Absolute Basophils 0 12/01/17 2145: PT 14.4 H, INR 1.32 H 12/01/17 1742: PT 15.1 H, INR 1.38 H 12/01/17 1425: PT 17.9 H, INR 1.63 H Impression/Plan Impression/Plan Impression/Plan: Impression 71 year old woman * extensive back surgery history with drainage * History of RUE DVT * hx of asthma * hx of MRSA pna Plan -pain control - Incentive Spirometry -TRC/Nebs -f/u ID, cardiology recommendations -continue symbicort -resume a/c when appropriate from surgical standpoint DVT prophylaxis at all times
--- NOTE | 2017-12-02 13:11 | PN- Neurosurgical ---
Surgical Brief Attending Note Brief Attending Note: Postoperative day #1 Afebrile Complaining of significant back pain No leg pain Drains functioning Explained to her the rationale for the intraoperative procedure and why we did not think the hardware needed to come out Pending final cultures
[2017-12-02 14:19] VITALS: BP 138/60
[2017-12-02 21:32] VITALS: BP 140/50
[2017-12-03 07:00] VITALS: BP 154/56
[2017-12-03 08:20] LABS: ABSOLUTE BASOPHIL COUNT 0 /CUMM (0.0-0.2); ABSOLUTE EOSINOPHIL COUNT 0 /CUMM (0.0-0.7); ABSOLUTE LYMPH COUNT 1.3 /CUMM (1.2-3.4); ABSOLUTE MONOCYTE COUNT 0.8 /CUMM (0.10-0.60); BASOPHIL % 0.4 % (0.0-2.0); EOSINOPHIL % 0.2 % (0-5); GRANULOCYTE % 73.4 % (42.2-75.2); MEAN CORPUSCULAR HGB CONC 32.4 G/DL (33.0-37.0); MEAN CORPUSCULAR VOLUME 83.5 FL (81.0-99.0); MEAN PLATELET VOLUME 8.4 FL (7.4-10.4); PLATELET COUNT 211 /CUMM (130-400); RBC DISTRIBUTION WIDTH 15.1 % (11.5-14.5); WHITE BLOOD CELL COUNT 8.2 /CUMM (4.8-10.8)
[2017-12-03 08:56] LABS: HEMATOCRIT 30.9 % (37-47)
--- NOTE | 2017-12-03 10:25 | PN- Medicine Consult ---
Brody HARRIS,Sadie 12/03/17 1024: Assessment/PlanMedical Consult Assessment/Plan Assessment: 72-year-old woman with multiple medical problems significant for 2 recent hospitalization status post laminectomy for spinal stenosis on 10/07/17 complicated by acute surgical blood loss anemia with bradycardia and hypotension requiring vasopressors and fluid resuscitation and right upper extremity DVT on Coumadin sent in from [facility] facility for increasing drainage from her midline surgical site. Presently patient otherwise feels well but is complaining of a new epigastric discomfort. Vital signs are significant only for an elevated systolic blood pressure ranging 150-176 and are otherwise within normal limits. Physical exam is significant for a large midline spinal surgical incision with sutures in place draining a clear scant amount of liquid; patient has a normal cardiopulmonary examination with a soft nontender abdomen. Labs including complete blood count, serum chemistry, and hepatic function panel are unremarkable; INR is 2.09. Chest x-ray demonstrates the presence of a left upper extremity PICC line. Lumbar spine x-ray demonstrates increased demineralization and compression deformity of the L2 vertebral body. Problem list -Surgical site drainage of reported purulent material, possible spinal abscess -Recent laminectomy complicated with acute blood loss anemia -Epigastric abdominal discomfort, etiology unclear -Chronic back pain status post lumbar fusion -Right upper extremity DVT on Coumadin -Ffc-uiwuvav-ghjhkvlyt diabetes mellitus -Osteoarthritis -GERD -History of MRSA -COPD, not on home oxygen -History of asthma/bronchitis -Hyperlipidemia -History of TIA Recommendations -Postoperative care per primary surgical team -I&D of surgical site - MRSA in spinal and blood cultures, started on IV vancomycin and ciprofloxacin - Please recheck INR daily, also communicated personally - Please restart anticoagulation with SC lovenox/restrating coumadin given recent DVT once surgically bleeding risk is acceptable. - Pain management per surgical team -Ensure DVT prophylaxis at all times Plan: as above Problem List: 1. Wound dehiscence 2. Spinal abscess 3. Hardware complicating wound infection 4. DVT (deep venous thrombosis) Subjective Subjective: seen and examined at bedside Patient seems to be in distress, requesting pain medications. Given cultures growing MRSA now, worried if needed to removal of hardware. Review of Systems Constitutional: Reports: see HPI. Objective Last 24 Hrs of Vital Signs/I&O Vital Signs Date Time Temp Pulse Resp B/P B/P Pulse O2 O2 Flow FiO2 Mean Ox Delivery Rate 12/03 0808 78 145/52 12/03 0700 98.2 78 18 154/56 96 Room Air 12/02 2132 98.3 85 18 140/50 99 Room Air 12/02 1905 96 Room Air 12/02 1419 98.3 86 20 138/60 100 Room Air 12/02 1045 95 Room Air Intake & Output 12/03 1600 12/03 0800 12/03 0000 Intake Total 500 613 Output Total 200 1000 1100 Balance -200 -500 -487 Intake, IV 100 20 Intake, Oral 400 593 Output, 100 Drainage Output, Urine 695 393 6988 Physical Exam General Appearance: well developed/nourished, alert, awake, mild distress Head: atraumatic, normal appearance Ears, Nose, Throat: normal pharynx, normal ENT inspection Neck: normal inspection, supple Cardiovascular: regular rate/rhythm, normal peripheral pulses Respiratory: normal breath sounds, chest non-tender, no respiratory distress Peripheral Pulses: 2+ radial (R), 2+ radial (L) Abdomen: normal bowel sounds, soft, non-tender Current Medications: Current Medications Sig/Clementine Start time Last Medication Dose Route Stop Time Status Admin Acetaminophen 500 MG Q4-6 PRN PRN 12/01 2114 AC PO Albuterol Sulfate 3 ML Q4-PRN PRN 11/30 1915 AC 12/01 INH 1009 Albuterol Sulfate 2 PUF Q4P PRN 11/30 1300 AC INH Budesonide/ 2 PUF BID 11/30 2100 AC 12/03 Formoterol Fumarate INH 0801 Ciprofloxacin 750 MG BID 12/02 0900 AC 12/03 PO 12/06 0859 0945 Diltiazem HCl 120 MG DAILY 12/01 0900 AC 12/03 PO 0808 Docusate Sodium 100 MG BID 12/02 0900 AC 12/02 PO 2107 Fluticasone 2 SPRAY DAILY 11/30 1343 AC 12/03 Propionate KIM 0802 Heparin Sodium 5,000 UNIT Q8 12/02 06 AC 12/03 (Porcine) SC 0546 Hydrochlorothiazide 25 MG DAILY 11/30 2145 AC 12/03 PO 0807 Hydrocodone Bitart/ 1 TAB Q4P PRN 12/01 0930 AC Acetaminophen PO Hydrocodone Bitart/ 2 TAB Q4 HRS NEEDED PRN 12/01 0930 AC 12/03 Acetaminophen PO 0759 Insulin Aspart 0 AT BEDTIME 11/30 2100 AC SC Insulin Human Regular 0 TIDAC/HS 12/02 0800 AC 12/03 SC 0804 Lactobacillus 1 CAP BID 12/02 1018 AC 12/03 Acidophilus PO 08 Losartan Potassium 100 MG DAILY 11/30 2144 AC 12/03 PO 0808 Melatonin 10 MG .STK-MED ONE 12/02 2052 DC PO 12/02 2053 Melatonin 10 MG AT BEDTIME NEED.. 11/30 2144 AC 12/02 PO 2106 Montelukast Sodium 10 MG AT BEDTIME 11/30 2100 AC 12/02 PO 210 Morphine Sulfate 2 MG Q2P PRN 11/30 1100 AC 12/03 IV 0902 Omeprazole 40 MG DAILY AC 12/02 0739 AC 12/03 PO 0546 Ondansetron HCl 4 MG Q8P PRN 11/30 1100 AC IV Polyethylene Glycol 17 GM DAILY 11/30 1534 AC 12/03 PO 0800 Sodium Chloride 2 SPRAY Q4P PRN 11/30 1345 AC 12/03 KIM 0802 Vancomycin HCl 1,250 MG DAILY 12/03 0900 AC 12/03 Sodium Chloride 250 ML IV 0947 Vancomycin HCl 1,000 MG Q12 12/02 0900 DC 12/02 Sodium Chloride 250 ML IV 0910 Results Last 24 Hrs Lab/Chucky Results: Laboratory Tests 12/03/17 0611: Anion Gap 7, Estimated GFR > 60, BUN/Creatinine Ratio 21.3, Glucose 125 H, CBC w Diff NO MAN DIFF REQ, RBC 3.70 L, MCV 83.5, MCH 27.0, MCHC 32.4 L, RDW 15.1 H, MPV 8.4, Gran % 73.4, Lymphocytes % 16.0 L, Monocytes % 10.0 H, Eosinophils % 0.2, Basophils % 0.4, Absolute Granulocytes 6.0, Absolute Lymphocytes 1.3, Absolute Monocytes 0.8 H, Absolute Eosinophils 0, Absolute Basophils 0 All Magana MD 12/03/17 1418: Attending MD Review Statement Attending Sign Off Attending Cosign Statement: I have: examined this patient, reviewed avalbl EMR data, discussd w/resident/PA/ SOLE PAINTER, discussed mgmt plan w/anna marie, agreed w/resident/PA/SOLE PAINTER, amended to note. Other Findings: The patient was seen and discussed with house staff and ID (Dr. Simon). Some UE swelling noted today and she has h/o UE DVT. Now off anticoagulation (is on prophylactic dose of SQ heparin). Agree with US of UE to evaluate for DVT. If no immediate surgery planned, consider Lovenox/restart Coumadin. Need to check INR (not done x 2 days). The patient also c/o significant pain and may need to adjust meds (surgery managing.
--- NOTE | 2017-12-03 11:40 | PN- Infect Dx ---
Subjective Subjective: Afebrile. She continues to complain of back pain. Objective Last 24 Hrs of Vital Signs/I&O Vital Signs Date Time Temp Pulse Resp B/P B/P Pulse O2 O2 Flow FiO2 Mean Ox Delivery Rate 12/03 0808 78 145/52 12/03 0700 98.2 78 18 154/56 96 Room Air 12/02 2132 98.3 85 18 140/50 99 Room Air 12/02 1905 96 Room Air 12/02 1419 98.3 86 20 138/60 100 Room Air Intake & Output 12/03 1600 12/03 0800 12/03 0000 Intake Total 500 613 Output Total 200 1000 1100 Balance -200 -500 -487 Intake, IV 100 20 Intake, Oral 400 593 Output, 100 Drainage Output, Urine 972 176 0759 Physical Exam Other Physical Findings: She appears comfortable in no acute distress Back dressing intact Extremities PICC in place in the left upper extremity with no inflammation at the site; left upper extremity edema, compared to the right upper extremity, with no erythema or tenderness; trace edema both lower extremities Results Last 24 Hours of Lab Results: Laboratory Tests 12/03 0611 Chemistry Sodium (137 - 145 mmol/L) 140 Potassium (3.5 - 5.1 mmol/L) 4.0 Chloride (98 - 107 mmol/L) 105 Carbon Dioxide (22 - 30 mmol/L) 27 Anion Gap (5 - 16) 7 BUN (7 - 17 mg/dL) 17 Creatinine (0.5 - 1.0 mg/dL) 0.8 Estimated GFR (>60 ml/min) > 60 BUN/Creatinine Ratio (7 - 25 %) 21.3 Glucose (65 - 99 mg/dL) 125 H Hematology CBC w Diff NO MAN DIFF REQ WBC (4.8 - 10.8 /CUMM) 8.2 RBC (4.20 - 5.40 /CUMM) 3.70 L Hgb (12.0 - 16.0 G/DL) 10.0 L Hct (37 - 47 %) 30.9 L MCV (81.0 - 99.0 FL) 83.5 MCH (27.0 - 31.0 PG) 27.0 MCHC (33.0 - 37.0 G/DL) 32.4 L RDW (11.5 - 14.5 %) 15.1 H Plt Count (130 - 400 /CUMM) 211 MPV (7.4 - 10.4 FL) 8.4 Gran % (42.2 - 75.2 %) 73.4 Lymphocytes % (20.5 - 51.1 %) 16.0 L Monocytes % (1.7 - 9.3 %) 10.0 H Eosinophils % (0 - 5 %) 0.2 Basophils % (0.0 - 2.0 %) 0.4 Absolute Granulocytes (1.4 - 6.5 /CUMM) 6.0 Absolute Lymphocytes (1.2 - 3.4 /CUMM) 1.3 Absolute Monocytes (0.10 - 0.60 /CUMM) 0.8 H Absolute Eosinophils (0.0 - 0.7 /CUMM) 0 Absolute Basophils (0.0 - 0.2 /CUMM) 0 Last 24 Hours of Chucky Results: OR cultures December 01 all positive for MRSA, with 2 cultures also positive for "Staph species", which may prove to be coag negative Staph Urine culture December 01 negative Assessment/Plan ID Impression: Stable, with temperatures and white blood cell count remaining normal, status post I&D of the lumbar wound 2 days ago for a surgical site infection secondary to MRSA and, possibly, coag negative Staph, following an I&D 4 weeks prior to admission for a surgical site infection secondary to Klebsiella complicating a decompressive lumbar laminectomy L2-S1 3 weeks earlier. She is now on Vancomycin in addition to the Ciprofloxacin that she was on prior to admission, and it may be reasonable to consider the addition of Rifampin for synergy given the data on treatment of prosthetic joint infections. She is aware of the possibility that this infection may not clear without removal of the hardware. She has mild left upper extremity edema and, with a PICC in place, a DVT should be ruled out. It may be reasonable at the same time to obtain a follow-up right upper extremity Doppler. Suggestion: 1. Doppler of both upper extremities 2. Obtain a baseline postop ESR 3. Add Rifampin 450 mg p.o. every 12 hours 4. Continue Vancomycin and Ciprofloxacin
[2017-12-03 14:14] VITALS: BP 136/50
[2017-12-03 21:12] VITALS: BP 138/58
--- NOTE | 2017-12-03 21:43 | ULTRASOUND REPORT ---
EXAMINATION: DUPLEX DOPPLER UPPER EXTREMITY, bilateral CLINICAL INFORMATION: Edema. Post IV puncture. COMPARISON: None. TECHNIQUE: Duplex Doppler performed of both upper extremities deep veins with grayscale, color Doppler and spectral Doppler examination. FINDINGS: There is no evidence of deep vein thrombosis. Portions of the left brachial and basilic veins are not visualized due to bandages for PICC lines. All visualized veins are patent in both upper extremities.. IMPRESSION: No evidence of deep vein thrombosis.
[2017-12-04 06:57] VITALS: BP 140/81
--- NOTE | 2017-12-04 08:49 | PN- Medicine Consult ---
Brody HARRIS,Sadie 12/04/17 0848: Assessment/PlanMedical Consult Assessment/Plan Assessment: 72-year-old woman with multiple medical problems significant for 2 recent hospitalization status post laminectomy for spinal stenosis on 10/07/17 complicated by acute surgical blood loss anemia with bradycardia and hypotension requiring vasopressors and fluid resuscitation and right upper extremity DVT on Coumadin sent in from [facility] facility for increasing drainage from her midline surgical site. Presently patient otherwise feels well but is complaining of a new epigastric discomfort. Vital signs are significant only for an elevated systolic blood pressure ranging 150-176 and are otherwise within normal limits. Physical exam is significant for a large midline spinal surgical incision with sutures in place draining a clear scant amount of liquid; patient has a normal cardiopulmonary examination with a soft nontender abdomen. Labs including complete blood count, serum chemistry, and hepatic function panel are unremarkable; INR is 2.09. Chest x-ray demonstrates the presence of a left upper extremity PICC line. Lumbar spine x-ray demonstrates increased demineralization and compression deformity of the L2 vertebral body. Problem list -Surgical site infection with MRSA, klebsiella -Recent laminectomy complicated with acute blood loss anemia -Epigastric abdominal discomfort, etiology unclear -Chronic back pain status post lumbar fusion -Right upper extremity DVT on Coumadin -Svg-gnejtdw-wtssrnblg diabetes mellitus -Osteoarthritis -GERD -COPD, not on home oxygen -History of asthma/bronchitis -Hyperlipidemia -History of TIA Recommendations -Postoperative care per primary surgical team -I&D of surgical site - MRSA in spinal and blood cultures, started on IV vancomycin and continue ciprofloxacin for Klebsiella. - Please recheck INR daily, also communicated personally. - Please restart anticoagulation with SC lovenox/restrating coumadin given recent DVT once surgically bleeding risk is acceptable. - Pain management per surgical team -Ensure DVT prophylaxis at all times Plan: as above Problem List: 1. Spinal abscess 2. Wound infection Subjective Subjective: seen at bedside Patient reports still having pain, but better tolerated compared to past few days. Able to walk with assistance. Reports having a family meeting this evening at 5pm with . Review of Systems Constitutional: Reports: see HPI. Objective Last 24 Hrs of Vital Signs/I&O Vital Signs Date Time Temp Pulse Resp B/P B/P Pulse O2 O2 Flow FiO2 Mean Ox Delivery Rate 12/04 0657 97.7 85 20 140/81 99 Room Air 12/03 2204 99 Room Air 12/03 2112 98.3 83 16 138/58 98 Room Air 12/03 1414 98.3 80 18 136/50 100 Room Air 12/03 1359 98 Room Air 12/03 1230 Room Air 1.5L Intake & Output 12/04 1600 12/04 0800 12/04 0000 Intake Total 240 480 Output Total 1435 235 Balance -1195 245 Intake, Oral 240 480 Number 1 Bowel Movements Output, 35 35 Drainage Output, Urine 1400 200 Physical Exam General Appearance: well developed/nourished, no apparent distress, alert, awake , obese Head: atraumatic, normal appearance Ears, Nose, Throat: normal pharynx, normal ENT inspection Neck: normal inspection, supple Cardiovascular: regular rate/rhythm, normal peripheral pulses Respiratory: normal breath sounds, chest non-tender, no respiratory distress Abdomen: normal bowel sounds, soft, non-tender Back: normal inspection, dressing present on the back Extremities: normal inspection, normal capillary refill, normal range of motion Skin: intact Current Medications: Current Medications Sig/Clementine Start time Last Medication Dose Route Stop Time Status Admin Acetaminophen 500 MG Q4-6 PRN PRN 12/015 AC PO Albuterol Sulfate 3 ML Q4-PRN PRN 11/30 1915 AC 12/04 INH 0836 Albuterol Sulfate 2 PUF Q4P PRN 11/30 1300 AC INH Bismuth Subsalicylate 30 ML PCHS PRN 12/04 1030 AC PO Budesonide/ 2 PUF BID 11/30 2100 AC 12/04 Formoterol Fumarate INH 0938 Ciprofloxacin 750 MG BID 12/02 09 AC 12/04 PO 12/06 0859 0938 Diltiazem HCl 120 MG DAILY 12/01 0900 AC 12/04 PO 0939 Docusate Sodium 100 MG BID 12/02 0900 AC 12/04 PO 0940 Fluticasone 2 SPRAY DAILY 11/30 1343 AC 12/04 Propionate IKM 0936 Heparin Sodium 5,000 UNIT Q8 12/02 0600 AC 12/04 (Porcine) SC 1325 Hydrochlorothiazide 25 MG DAILY 11/30 2145 AC 12/04 PO 0939 Hydrocodone Bitart/ 1 TAB Q4P PRN 12/01 0930 AC Acetaminophen PO Hydrocodone Bitart/ 2 TAB Q4 HRS NEEDED PRN 12/01 0930 AC 12/04 Acetaminophen PO 1409 Insulin Aspart 0 AT BEDTIME 11/30 2100 AC SC Insulin Human Regular 2 UNITS .STK-MED ONE 12/03 1640 DC IV 12/03 1641 Insulin Human Regular 0 TIDAC/HS 12/02 0800 AC 12/04 SC 1230 Lactobacillus 1 CAP BID 12/02 1018 AC 12/04 Acidophilus PO 0940 Losartan Potassium 100 MG DAILY 11/30 2145 12/04 PO 0939 Melatonin 10 MG .STK-MED ONE 12/03 2138 DC PO 12/03 2139 Melatonin 10 MG AT BEDTIME NEED.. 11/30 2145 AC 12/03 PO 2139 Montelukast Sodium 10 MG AT BEDTIME 11/30 2100 AC 12/03 PO 2125 Morphine Sulfate 2 MG Q2P PRN 11/30 1100 AC 12/04 IV 1127 Omeprazole 40 MG DAILY AC 12/02 0739 AC 12/04 PO 0530 Ondansetron HCl 4 MG Q8P PRN 11/30 1100 AC IV Patient Medication 1 ED ONE ONE 12/04 0715 [place] 12/04 Teaching ED 12/04 0716 0940 Polyethylene Glycol 17 GM DAILY 11/30 1534 AC 12/04 PO 0940 Rifampin 450 MG BID 12/03 1300 12/04 PO 0939 Sodium Chloride 2 SPRAY Q4P PRN 11/30 1345 12/03 KIM 0802 Vancomycin HCl 1,250 MG DAILY 12/03 0900 AC 12/04 Sodium Chloride 250 ML IV 0936 Warfarin Sodium 5 MG COUMADIN 1700 ONE 12/04 1700 AC PO 12/04 1701 Results Last 24 Hrs Lab/Chucky Results: Laboratory Tests 12/04/17 1230: PT 12.8 H, INR 1.17 All Magana MD 12/04/17 2008: Attending MD Review Statement Attending Sign Off Attending Cosign Statement: I have: examined this patient, reviewed avalbl EMR data, discussd w/resident/PA/ MEDICAL ADMINISTRATIVE, discussed mgmt plan w/anna marie, discussed mgmt plan w/CM, discussed mgmt plan w/ pt, agreed w/resident/PA/MEDICAL ADMINISTRATIVE, amended to note. Other Findings: The patient was seen and discussed with house staff. Dr. Najera to meet with patient's family later today to discuss plans of treatment. Spoke with surgical PA. Will obtain INR and restart Coumadin. Neg DVT on UE US. Continue Vanco/Cipro /Rifampin as per ID. If stable will return to [facility]. Pain under better control today.
--- NOTE | 2017-12-04 10:25 | PN- Neurosurgical ---
Subjective Subjective: Patient seen by this morning, who changed her dressing and told her the drains would be staying in place at least until tomorrow. She reports "upset stomach" since rifampin was added yesterday. No dizziness. No shortness of breath. No chest pains. Venous doppler ultrasound studies of both arms were negative for dvt yesterday. Objective Vital Signs and I&Os Vital Signs Date Time Temp Pulse Resp B/P B/P Pulse O2 O2 Flow FiO2 Mean Ox Delivery Rate 12/04 0939 140/81 12/04 0836 99 Room Air 12/04 0657 97.7 85 20 140/81 99 Room Air 12/03 2204 99 Room Air 12/03 2112 98.3 83 16 138/58 98 Room Air 12/03 1414 98.3 80 18 136/50 100 Room Air 12/03 1359 98 Room Air 12/03 1230 Room Air 1.5L Intake & Output 12/04 1600 12/04 0800 12/04 0000 12/03 1600 12/03 0800 12/03 0000 Intake Total 240 480 597 500 613 Output Total 1435 867 874 8175 1100 Balance -1195 245 -288 -500 -487 Intake, IV 100 20 Intake, Oral 240 480 597 400 593 Number 1 Bowel Movements Output, 35 35 35 100 Drainage Output, Urine 1400 200 393 172 5046 Physical Exam: General - alert & oriented x 3. out of bed to chair. comfortable. Lungs - clear bilaterally. no w/r/r. Cardiac - s1s2. reg. Abdomen - soft. nontender. Lumbar - dressing changed by this morning. CLARIBEL drains remain, with serosang drainage (see i/o's) Extremities - warm bilaterally. trace edema b/l lower legs. calves soft and nontender b/l. Current Medications: Current Medications Sig/Clementine Start time Last Medication Dose Route Stop Time Status Admin Acetaminophen 500 MG Q4-6 PRN PRN 12/01 2114 AC PO Albuterol Sulfate 3 ML Q4-PRN PRN 11/30 191 AC 12/04 INH 0836 Albuterol Sulfate 2 PUF Q4P PRN 11/30 1300 AC INH Budesonide/ 2 PUF BID 11/30 2100 AC 12/04 Formoterol Fumarate INH 0938 Ciprofloxacin 750 MG BID 12/02 0900 AC 12/04 PO 12/06 0859 0938 Diltiazem HCl 120 MG DAILY 12/01 0900 AC 12/04 PO 0939 Docusate Sodium 100 MG BID 12/02 0900 AC 12/04 PO 0940 Fluticasone 2 SPRAY DAILY 11/30 1343 AC 12/04 Propionate KIM 0936 Heparin Sodium 5,000 UNIT Q8 12/02 0600 AC 12/04 (Porcine) SC 0531 Hydrochlorothiazide 25 MG DAILY 11/30 2145 AC 12/04 PO 0939 Hydrocodone Bitart/ 1 TAB Q4P PRN 12/01 0930 AC Acetaminophen PO Hydrocodone Bitart/ 2 TAB Q4 HRS NEEDED PRN 12/01 0930 AC 12/04 Acetaminophen PO 1003 Insulin Aspart 0 AT BEDTIME 11/30 2100 AC SC Insulin Human Regular 2 UNITS .STK-MED ONE 12/03 1640 DC IV 12/03 1641 Insulin Human Regular 4 UNITS .STK-MED ONE 12/03 1200 DC IV 12/03 1201 Insulin Human Regular 0 TIDAC/HS 12/02 0800 12/04 SC 0953 Lactobacillus 1 CAP BID 12/02 1018 AC 12/04 Acidophilus PO 0940 Losartan Potassium 100 MG DAILY 11/30 2145 12/04 PO 0939 Melatonin 10 MG .STK-MED ONE 12/03 2138 DC PO 12/03 2139 Melatonin 10 MG AT BEDTIME NEED.. 11/30 2145 12/03 PO 2139 Montelukast Sodium 10 MG AT BEDTIME 11/30 2100 AC 12/03 PO 2125 Morphine Sulfate 2 MG Q2P PRN 11/30 1100 AC 12/04 IV 0248 Omeprazole 40 MG DAILY AC 12/02 0739 AC 12/04 PO 0530 Ondansetron HCl 4 MG Q8P PRN 11/30 1100 IV Patient Medication 1 ED ONE ONE 12/04 0715 DC 12/04 Teaching ED 12/04 0716 0940 Polyethylene Glycol 17 GM DAILY 11/30 1534 12/04 PO 0940 Rifampin 450 MG BID 12/03 1300 AC 12/04 PO 0939 Sodium Chloride 2 SPRAY Q4P PRN 11/30 1345 AC 12/03 KIM 0802 Vancomycin HCl 1,250 MG DAILY 12/03 0900 AC 12/04 Sodium Chloride 250 ML IV 0936 Warfarin Sodium 5 MG COUMADIN 1700 ONE 12/04 1700 AC PO 12/04 1701 Results Last 48 Hours of Labs: Laboratory Tests 12/03 12/03 1242 0611 Chemistry Sodium (137 - 145 mmol/L) 140 Potassium (3.5 - 5.1 mmol/L) 4.0 Chloride (98 - 107 mmol/L) 105 Carbon Dioxide (22 - 30 mmol/L) 27 Anion Gap (5 - 16) 7 BUN (7 - 17 mg/dL) 17 Creatinine (0.5 - 1.0 mg/dL) 0.8 Estimated GFR (>60 ml/min) > 60 BUN/Creatinine Ratio (7 - 25 %) 21.3 Glucose (65 - 99 mg/dL) 125 H Hematology CBC w Diff NO MAN DIFF REQ WBC (4.8 - 10.8 /CUMM) 8.2 RBC (4.20 - 5.40 /CUMM) 3.70 L Hgb (12.0 - 16.0 G/DL) 10.0 L Hct (37 - 47 %) 30.9 L MCV (81.0 - 99.0 FL) 83.5 MCH (27.0 - 31.0 PG) 27.0 MCHC (33.0 - 37.0 G/DL) 32.4 L RDW (11.5 - 14.5 %) 15.1 H Plt Count (130 - 400 /CUMM) 211 MPV (7.4 - 10.4 FL) 8.4 Gran % (42.2 - 75.2 %) 73.4 Lymphocytes % (20.5 - 51.1 %) 16.0 L Monocytes % (1.7 - 9.3 %) 10.0 H Eosinophils % (0 - 5 %) 0.2 Basophils % (0.0 - 2.0 %) 0.4 Absolute Granulocytes (1.4 - 6.5 /CUMM) 6.0 Absolute Lymphocytes (1.2 - 3.4 /CUMM) 1.3 Absolute Monocytes (0.10 - 0.60 /CUMM) 0.8 H Absolute Eosinophils (0.0 - 0.7 /CUMM) 0 Absolute Basophils (0.0 - 0.2 /CUMM) 0 ESR Westergren (0 - 20 MM) 66 H Assessment/Plan Assessment/Plan This 72 year old female with hx copd, htn, hld, hx dvt s/p picc line/removal, lumbar wound infection r/o hardward infection, now POD#3 s/p lumbar wound exploration/i&d, on vanco/cipro/rifampin for +mrsa from OR cultures, CLARIBEL drains still in place tolerating diet although now with "upset stomach" pain improves with vicodin / prn morphine oob with assistance. continue PT hep sc - dvt ppx to restart coumadin tonight. will check INR now and tomorrow morning for dose adjustment dressing changed by continue to monitor drain output. ?possible drain removal tomorrow add pepto bismol prn upset stomach d/c planning, to go back to rehab possibly tomorrow will be returning today to meet with family @ 5pm the patient understands and agrees with the above plan d/w and hospitalist. will f/u Core Measures Venous Thromboembolism VTE Risk Factors Surgery No Mechanical VTE Prophylaxis d/t N/A MechProphylax Ordered No VTE Pharm Prophylaxis d/t Surgical Contraindication
[2017-12-04 14:10] LABS: PT 12.8 SEC (9.4-12.5)
[2017-12-04 14:16] VITALS: BP 170/63
--- NOTE | 2017-12-04 14:19 | PN- Infect Dx ---
Subjective Subjective: Afebrile. She continues to complain of severe back pain. She also notes mild GI discomfort. Objective Last 24 Hrs of Vital Signs/I&O Vital Signs Date Time Temp Pulse Resp B/P B/P Pulse O2 O2 Flow FiO2 Mean Ox Delivery Rate 12/04 0939 140/81 12/04 0836 99 Room Air 12/04 0657 97.7 85 20 140/81 99 Room Air 12/03 2204 99 Room Air 12/03 2112 98.3 83 16 138/58 98 Room Air 12/03 1414 98.3 80 18 136/50 100 Room Air Intake & Output 12/04 1600 12/04 0800 12/04 0000 Intake Total 240 480 Output Total 300 1435 235 Balance -300 -1195 245 Intake, Oral 240 480 Number 1 1 Bowel Movements Output, 35 35 Drainage Output, Urine 300 1400 200 Physical Exam Other Physical Findings: She appears mildly uncomfortable but in no acute distress Abdomen is soft, nontender with positive bowel sounds Back dressing intact Extremities PICC in the left upper extremity with no inflammation at the site; no upper extremity edema Results Last 24 Hours of Lab Results: Laboratory Tests 12/04 1230 Coagulation PT Pending INR Pending Last 24 Hours of Chucky Results: OR cultures December 01 positive for MRSA, with 2 cultures also positive for coag negative Staph sensitive to Tetracycline and Vancomycin Recent Imaging Studies: Dopplers of both upper extremities December 03 negative Assessment/Plan ID Impression: Stable, with temperatures and white blood cell count remaining normal, status post I&D of the lumbar wound 3 days ago for a surgical site infection secondary to MRSA and coag negative Staph following an I&D 4 weeks prior to admission for a surgical site infection secondary to Klebsiella complicating a decompressive lumbar laminectomy L2-S1 3 weeks earlier. She is now on Vancomycin and Rifampin (added yesterday for possible synergy) in addition to the Ciprofloxacin that she was on prior to admission. She is aware of the possibility that this infection may not clear without removal of the hardware. Her GI upset may be multifactorial, but the dose of Rifampin could be decreased. Suggestion: 1. Decrease Rifampin to 300 mg p.o. every 12 hours 2. Continue Vancomycin to plan on a 6-8 week course from her recent surgery 3. Continue Ciprofloxacin to complete at least a 6 week course from her previous surgery (until December 10) 4. Weekly CBC, ESR, BUN/creatinine and Vancomycin level while on Vancomycin
--- NOTE | 2017-12-04 21:30 | Operative Report ---
Operative/Inv Procedure Report Surgery Date: 12/01/17 Name of Procedure: 1) L2-S1 Mid-Lumbar, Lower Lumbar And Lumbosacral Region Surgical Site Second Incision, Exploration, Culture, Evacuation Of Fluid Collection, And Post- Debridement Pulse Lavage Irrigation Of All Exposed [place] Soft Tissue And Osseous Structures, Grafted Fusion Mass And Hardware For Recurrent Postoperative Incisional Dehiscence, Recurrent Purulent Incisional Fluid Drainage And Suggestion Of Possible Associated Underlying Recurrent Purulent Fluid Collection Consistent With Potentially Infected Postoperative Superficial And Deep Midline Paraspinal Liquefied Hematoma Without Evidence Of Epidural Or Anterior Column Extension Following Complex Index Revision And New Decompression With Multicolumn Instrumented Fusion (10/07/2017) Complicated By Late Infection Requiring Previous Initial I&D (10/29/2017) (Dania/Ke) 2) L2-S1 Posterobilateral Exploration Of Fusion (Dania/Ke) 3) L2-S1 Mid-Lumbar, Lower Lumbar And Lumbosacral Region Initial Section ( Initial 20 Square Centimeters) Of Surgical Site Suprafascial, Fascial, And Deep Subfascial Tissue Layer Sharp (Scalpel Dissection), Blunt Mechanical (Curette And Other Instrument Surface Abrasion) And Hydrodynamic (Pulse Lavage) Superficial Tissue Surface Surgical Site Debridement Of All Exposed Surgical Site Tissues Down To The Osseous Level (Including Epidermal, Dermal, Subcutaneous, Fascial, Deep Paraspinal Muscular And Both [place] Spinous Process, Laminar, Lateral Mass And Sacral Alar As Well As Grafted Nearly-Completely Incorporated Bilateral L2-S1 Fusion Mass Osseous Tissues); (Debrided Osseous Dimensions: Initial Section - Initial 20 Square Centimeters Out Of A Total Debrided Osseous Area Of Approximately 80 Square Centimeters) (* = Refer To This Procedure Description For Details Of Debridement) (Dheeraj) 4) L2-S1 Mid-Lumbar, Lower Lumbar And Lumbosacral Region Second Section (2nd 20 Square Centimeters) Of Surgical Site Suprafascial, Fascial And Deep Subfascial Tissue Layer Sharp, Blunt Mechanical And Hydrodynamic Superficial Surface Tissue Layer Surgical Site Debridement* Of All Exposed Surgical Site Tissues Down To And Including The Osseous Tissue Level; 2nd Section - 2nd 20 Square Centimeters Out Of A Total Debrided Osseous Area Of Approximately 80 Square Centimeters ( = Refer To This Procedure Description For Details Of Additional Sections Of Debridement) (Dheeraj) 5) L2-S1 Lumbar And Lumbosacral Region Third Section (3rd 20 Square Centimeters Out Of A Total Of Approximately 80 Square Centimeters) Of Surgical Site Osseous Tissue Level Debridement (Dania/Ke) 6) L2-S1 Lumbar And Lumbosacral Region Fourth Section (4th 20 Square Centimeters Out Of A Total Of Approximately 80 Square Centimeters) Of Surgical Site Osseous Tissue Level Debridement (Dania/Ke) 7) Initial 20.0 Square Centimeter Surface Area Section Of L2-S1 Lumbar ( Trunk) Surgical Site Scar Revision With Excision Of Dehiscence Sites As Well As Other Areas Of Compromised, Devitalized, Hypertrophic And Potentially Infected Cutaneous And Subcutaneous Soft Tissue Followed By Adjacent Tissue Repair (> 10.1 And < 30.0 Square Centimeter Section Of Primary And Secondary Soft Tissue Defect) (Dania/Ke) Pre-Operative Diagnosis: Primary Surgically Treated Diagnoses: 1) L2-S1 Infected Superficial (Suprafascial) And Deep (Subfascial) Lumbar And Lumbosacral Region Surgical Site (Undergoing Active And Acute Surgical Treatment) 2) Moderate To Severe, Activity And Functionally Limiting Lumbosacral Region Back Pain Post-Operative Diagnosis: Same as preoperative diagnosis list. Estimated Blood Loss: 200 cc Surgeon/Director It Project: UMER MURRELL MD - Primary Admitting Orthopaedic Surgeon ERIC DEMPSEY MD - Primary Consulting Neurological Co-Surgeon Surgical Providers: Umer Murrell M.D. - Orthopaedic Surgeon (Primary Admitting Surgeon) Eric Dempsey M.D. - Neurosurgeon (Director It Project Surgeon) Anesthesia: general endotracheal tube Monitors: Standard general anesthesia and other perioperative monitoring was performed per anesthesia protocols. Refer to anesthesia records for details. IV Fluids: Standard anesthesia perioperative fluid management was performed without requirement for additional or emergent fluid resuscitation. Refer to anesthesia records for details. Implants: Implants Removed: None Graft Removed: None. Incorporating Graft Was Superficially Debrided But Otherwise Retained. New Implants Placed: None New Graft Placed: None Urine Output: Refer to anesthesia records for details. Drains: Large bore (15 K[place]ili) subfascial CLARIBEL drains x 2 to medium vacuum bulb suction reservoirs. Fenestrated portions of drain tubes placed in each posterolateral intertransverse space (lateral gutter) with unfenestrated portion through deep muscle, fascia, subcutaneous tissue, and skin of bilateral superolateral aspect of surgical site [place] without suture fixation. Specimens: No pathology specimens sent. See Microbiology section for desription of specimens. Microbiology: Multiple suprfascial and deep subfascial labelled fluid and tissue culture specimens as well as small sample of superficially debrided, partially incorporated bone graft from the right fusion mass sent to microbiology for analysis (gram stain, culture and sensitivity) Complications: None Operative/Procedure Note Note: Preoperative Holding Area Assessment/Preparation: The patient was evaluated in the preoperative holding area prior to surgery and no clinical changes or contraindications to surgical intervention were noted compared to the preoperative baseline findings of incisional dehiscence, thin cloudy but not grossly purulent drainage and otherwise normal neuromusculoskeletal examination documented on orthopaedic office and clearance general, medical, neurovascular and musculoskeletal evaluations. She denied any significant systemic or constitutional symptoms and had no physiologic signs or changes to suggest systemic infection. As in the office, the patient was otherwise grossly neurovascularly intact in both lower extremities to standard testing. The patient showed no signs of respiratory abnormality associated with her moderate, medication-controlled pulmonary history. The surgical plan and site were confirmed with the patient and preoperative paperwork was finalized. The region of the intended surgical site was cleansed, prepped and marked per protocol. The primary surgeon, anesthesia care team members, and operating room staff confirmed the patient identity, surgical procedure, and operative site as well as other clinical details with the patient in an initial documented preoperative confirmation (awake time out) prior to the administration of significant sedation or anesthesia. The patient's anticoagulant had been discontinued on admission and her elevated INR was reversed at optimal rate over the 24 hours prior to surgery using Vitamin K (2 doses) initially and then FFP (2 units) shortly prior to surgery with correction confirmed prior to proceeding with the final phases of anesthesia and surgical preoperative preparation. The patient had also been on oral Cipro prior to surgery and this was disconinued shortly after admission so that optimal intraoperative cultures could be obtained. Prior to receiving any preoperative medications, she also confirmed her NPO status since midnight. The patient has a remote history of culture documented pulmonary MRSA infection several years ago as well as positive screening nasal swab culture on this admission suggesting chronic colonization and so, although she has not had any recurrence of either pneumonia or MRSA infection, contact precautions were followed throughout the preoperative process and will be continued throughout her hospitalization per hospital protocol. Surgical Procedure: The procedure was performed by Dr. Murrell who was present and served as the primary surgeon for all critical intraoperative and perioperative decisions and interventions. Dr. Dempsey served as assistant public defender surgeon throughout all significant phases of the procedure and his expertise was extremely helpful for evaluation and protection of the midline structures and particularly for intraoperative assessment and decision-making regarding the extent and treatment of the patient's surgical site infection. Set-Up/Positioning/Exposure - The patient was brought to the operating room in stable condition and underwent uncomplicated induction of general anesthesia, intubation, and placement of all appropriate monitors, lines and catheters without difficulty. The PICC line was used for primary access with secondary access also established for backup. Antibiotics were held until all cultures were obtained following complete initial incision, dissection, exposure, drainage of fluid collection and debridement of all involved soft and osseous tissues. Thereafter, the patient was given 1 gram of IV Vancomycin per standard infusion protocols. Steroids ( even low dose by anesthesia for airway management and nausea prophylaxis) were avoided in this case because of the patient's active lumbar surgical site infection. The patient was positioned prone on the Leo operating table in standard fashion for the planned procedure of mid- and lower lumbar culture, irrigation and debridement followed by exploration of posterobilateral fusion mass with possible hardware and/or bone graft removal depending on intraoperative findings and then revision of scar using local tissue advancement reconstruction techniques. Care was taken to protect and stabilize the spine during transfer, avoid positions of nerve stretch, pad all pressure points, and support the head without any pressure on the eyes using a foam head rest and head-holding frame. Additional foam padding was used at the iliac crest and thigh pads as well as against the Leo frame because of the patient's large size. The arms were abducted less than 90 degrees at the shoulders, flexed less than 90 degrees at the elbows and supported on well-padded arm-boards with additional foam padding from the axillary regions to the hands. All pressure points were either fully padded or supported without any contact at all between pads. The dressing was removed and was noted to have a small area of discolored drainage approximately 5 cm in diameter in the lower third of the dressing overlying the primary area of incisional dehiscence. The loosely locked running nylon cutaneous suture was removed and the entire length of the previous surgical site incision was carefully inspected. The area of dehiscence was isolated to a few small openings within the inferior 1/3 of the length of the incision and these areas were noted to be widened only a millimeter even with the closing suture removed and with gentle pressure applied suggesting that the lower layers and surrounding areas of closed surgical site were healing normally. Without significant maniulation there was only a very small amount of drainage evident at the skin level. This appeared to be more cloudy with a brownish discoloration which had not been evident at the time of office evaluations when the exudate had been more serous. The edges of the incision were thickened, erythematous and appeared somewhat dusky and suboptimal for healing in the area of dehicense and immediately surrounding areas encompassing the entire inferior half of the incision. The upper half of the incision appeared healthier and better healed but still had erythema surrounding the suture. It was felt that the optimal outcome with the least adverse effect would be achieved by full zachary-incisional tissue resection throughout the entire length of the incision in this case particularly given that such a full length resection would not likely result in excessive tissue tension after adjacent tissue advancement in this patient given her body habitus. Intermediate level pressure was applied to both sides of the surgical region and this downward pressure was maintained while additional pressure was also directed toward the midline and centered at the level of primary incisional dehiscence in an attempt to evacuate as much retained fluid collection as possible prior to prep and drape. Only a small amount of dark red-brown fluid was expressed. The appearance of this fluid was most consistent with infected hematoma. The primary surgeon, anesthesia care team, and operating room staff again documented the patient identity, surgical procedure, and operative site as well as other clinical details in a final documented confirmation (final time out) prior to beginning the procedure. After sterile prep and drape using standard technique with Gel Prep, two opposing, mirror-image but otherwise symmetrical incisions circumscribing the entire length of the patient's previous surgical site were mapped and made with a #10 scalpel blade extending longitudinally in a biconvex pattern forming a pointed ellipse from the level of the tip of the L1 spinous process to the level of the tip of the S1 spinous process overlying the intended L2-S1 operative levels. These incisions completely circumscribed and resected all potentially compromised (infected, dehisced, erythematous and hypertrophic) cutaneous and subcutaneous zachary-incisional tissue. The total length of this elliptical resection was approximately 20 cm with the resected width being approximately 1 cm (0.5 cm on each side) for a total resected cutaneous surface area of 20 square centimeters. This dissection and resection was continued down through the subcutaneous layer to the level of the fascia in a tapering fashion beginning approximately 0.5 cm from the incisional edge at the cutaneous level and beveling toward the midline to resect a thin and steadily decreasing thickness of subcutaneous tissue leaving adequate thickness of suprafascial tissue wall in the deep subcutaneous layer just above the fascia so as to maintain fascial vascularity and soft tissue coverage. All superficial suture material was removed. Hemostasis was achieved using Bovie electrocautery beginning with the incision and continuing throughout the procedure with settings appropriate to each progressive level. Aquamantis hydrothermal cautery was also used for hemostasis in highly vascular areas while avoiding the deep midline structures. The retained margins of the resection appeared normal with good blood supply and no evidence of further compromise or infection. Due to the patient's body habitus there was extensive fat within the subcutaneous layer and evidence of fat necrosis particularly near the dehiscence sites. Following edge resection there was no further suggestion of fat necrosis, devascularized or nonviable tissues however, although normal in appearance, the concentration of fat within the subcutaneous layer was still quite extensive. During superficial debridement a small amount of light brownish fluid collection consistent with infected superficial hematoma was evident only at the dehiscence sites in the lower half of the surgical site. This fluid collection was only a few milliliters in volume. This small specimen was collected in a syringe and sent to microbiology for culture. Because of the small sample size, a swab culture was also sent of the region where this fluid collection was found following edge debridement. The fluid collection did not extend beyond the layer of tissue resected from both lateral [place]. The new tissue [place] exposed by the resection showed no sign of infection, fluid collection or abnormal tissue. The fluid collection did not extend down to the fascial layer which was covered with intact granulation tissue and was healed by palpation. There was no sign of deep extension of the draining dehiscence channels down to or through the fascia to suggest a fistula. All other fluid in the superficial space was minimal, thin, serous and appeared consistent with normal soft tissue and fatty tissue exudate in this obese patient. The fascia was exposed in the midline taking care to preserve as much soft tissue coverage and vascularization as possible to the fascial layer. This was achieved with superficial coverage preserved throughout the length of the dissection all the way to the fascial edge on both sides. Dorsal to ventral and lateral to medial directed manual pressure was applied to the midline fascia and paramedian overlying soft tissues in an attempt to express any subfascial fluid through any as yet unidentified fascial opening that might be present but no communication or fluid was noted. Attempt was made to digitally dissect through the midline fascial repair but it appeared to be healing with no obvious openings or defects. Several fascial sutures were removed and even then there was no evidence of fascial dehiscence or spread. Once sutures were removed digital dissection was able to separate the two sides of the fascial repair and this occurred with much less forceful dissection in the caudal half than in the cephalad half raising the question of whether there may have been a very small opening in the fascia allowing communication of residual infection between the superficial and deep space. Even with all fascial sutures removed and the fascia dissected open throughout its length there was no obvious fluid efflux from the subfascial compartment with pressure applied to the bilateral fascia as described above. This dissection was continued into the subfascial layer where the muscle also appeared to have granulated reasonably well, required fairly forceful digital dissection to elevate the muscle from the underlying osseous structures and hardware (particularly for this early timepoint since her last I&D), and showed no sign of devitalized, dysvascular, compromised or grossly infected muscular side-wall tissues on inspection. With dissection completed down to the spinal osseous and laminectomy level in the midline and over the hardware to the lateral fusion mass on both sides, deep Gelpi retractors were placed for optimal exposure. There was a small volume of deep fluid (~5 cc) which was collected in a syringe and sent to microbiology for culture. There was also a small amount of fibrinous material which did not appear to be normal early granulation tissue but was also not grossly purulent. This material was overlying the midline decompression site and did not appear to extend laterally to the hardware or bone graft. The possibility of "sterile purulence" following antibiotic treatment could not be ruled out and so this tissue was collected along with some of the superficial tissue of the deep side [place] and granulation overlying the hardware and sent as microbiological tissue specimen. With the fibrinous material removed, the underlying decompressed canal was inspected and the thecal sac was found to be well covered with healthy granulation tissue without any direct exposure of neural elements or dura in any region. There was no lateral epidural extension of fibrinous material and no exudate or drainage from that region. In fact the epidural spaces on both sides were already filled with healthy granulation tissue with no sign of exudate to suggest anterior column or epidural sequestrum or involvement. Therefore, no epidural dissection, exploration or neurolysis was felt to be indicated. Again, as in the superficial layer, because of the low volume of fluid and abnormal appearing tissue specimen available for culture, a deep swab culture was also obtained from the midline and posterobilateral deep surgical bed overlying the laminectomy defects, hardware and arthrodesis mass. A combination of sharp (scalpel), rongeur ([place]) and blunt mechanical (large curettes and Pearce elevator) dissection was used to remove any potential compromised or infected superficial soft or osseous tissue from all exposed surfaces of the surgical site [place], the spinous processes, laminae, facets, sacral ala and fusion masses bilaterally. After sharp debridement of any devitalized tissues as outlined above, the margins of both the superficial and deep layers were further debrided using blunt mechanical technique with a large straight curette down to healthy, viable and well vascularized tissue at all levels. Some of this mechanically debrided materal was sent for tissue culture. The hardware was carefully inspected bilaterally and there was no evidence of purulent material in the region of or entrapped within the metal-metal or metal- bone interfaces of the instrumentation. The fusion mass was also carefully inspected bilaterally and all bone graft appeared to be incorporating well. There was no retained lose or unincorporated bone graft (all of which had been removed at her last surgery) and in fact the fusion appeared to be covered with more robust granulation than before suggesting early incorporation without obvious involvement if infection. Vigorous curettage was avoided so as to preserve what appeared to be healing fusion, and with intermediate force applied to the curette only a single piece of graft was dislodged from the superficial fusion mass on the right. This was sent for tissue culture along with some of the overlying granulation tissue removed by curettage. The tissue wall margins throughout the length of the surgical site appeared normal with good blood supply and no evidence of gross compromise or infection folowing completion of this multistage edge resection, surface debridement and irrigation. There was no abnormal appearing tissue or fluid in the region of the hardware or fusion mass following debridement and irrigation. Vancomycin 1 gram IV was given once all culture specimens were collected. All tissue layers of the entire extent of the surgical site were thoroughly cleaned using hydrodynamic pulse lavage technique with 12 liters of antibiotic irrigation. Care was taken to avoid direct pulse lavage application to the region of the laminectomy opening which was later separately irrigated with more gentle but still high volume (500 cc) bulb irrgation. At intervals throughout the procedure the retractors were removed so that the [place] of the surgical site behind them could be effectively debrided and pulse irrigated. Once the irrigation of all tissues was complete, the suprafascial, fascial and deep tissue margins were again checked and found to be viable with reasonably good color, mechanical integrity and vascularity. Closure/Recovery - The surgical site was thoroughly irrigated and hemostasis was carefully achieved prior to closure. Dual large bore subfascial CLARIBEL drains were placed with one on each side in the lateral intertransverse spaces and carried out through the superior wall of each side of the surgical site using a trocar. Initial counts were correct prior to closure. The deep lumbar muscular layer was reapproximated using #0 Maxon interrupted suture technique so as to minimize open subfascial space for hematoma collection. The fascial layer was reapproximated in a [id number] closure using #0 Maxon interrupted, figure-of- eight suture technique. The deep suprafascial closure was performed with #2-0 Maxon interrupted, simple suture technique. The superficial subcutaneous layer was closed with #3-0 Maxon inverted, interrupted, simple sutures. The skin was closed using several running interlocked #3-0 nylon sutures connected end-to-end so as to reapproximate the skin edges throughout the length of the repair taking care to avoid excessive tension and to preserve skin edge perfusion. A standard , sterile Xeroform dressing was placed, covered with folded fluff 6x6 gauze and ABD pads and held using foam tape with good surgical site and bilateral drain site coverage. All counts were correct prior to removing the drapes. The patient was turned into the supine position on the hospital bed using careful log-roll technique, avoiding torsional stress and stabilizing the lumbar region during transfer. She was then extubated in the operating room without difficulty. Recovery Room Assessment: The patient was transported to the recovery room in stable condition where gross neurological examination showed normal function on initial recovery from anesthesia with no deficits or worsening compared to her pre-operative assessments. The patient will follow the usual postoperative protocol for lower lumbar incision, drainage, debridement and exploration of fusion for dehiscence and probable infected hematoma. Some adjustments and accommodations will likely need to be made to the standard protocol because of her complex lumbar surgical history, multiple medical comorbidities and possible need to change antibiotic regimen. Infectious disease service will be consulted on POD #1. She will be continued on Vancomycin and PO Cipro until culture and sensitivity microbiology results are available at which point more definitive infectious disease service consultation recommendations will be followed for longer term antibiotic treatment. Her postoperative care plan will include early mobilization, IV (then rapidly weaning to oral) medication pain control, and discharge planning starting on postoperative day #2 or #3 once culture results have been evaluated and antibiotic treatments optimized. The plan will be to to return her to an inpatient rehabilitation program until she is independent with normal home activities of daily living as her is functionaly limited as well and she does not have any other help at home. She will be restarted on anticoagulation once her drains have been removed or on POD #2 whichever is first. All other postoperative plans and protocols (including brace use, lower extremity motion exercises, etc.) will remain unchanged and will be followed as fully detailed in previous office records, operative reports and hospital notes. Discharge Disposition: PACU CC: Dania HARRIS,Umer Rose; Ke HARRIS,Eric Lang
--- NOTE | 2017-12-04 21:58 | PN- Orthopedic ---
Surgical Brief Attending Note Brief Attending Note: Patient seen by Dr. 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 Overall she is still recovering well and mobilizing more quickly then with previous surgeries. She reports moderate pain which is adequately controlled on standard oral pain meds. B UE Doppler U/S was negative by report. AVSS. Drain output is moderate but decreasing steadily. She is neurovascularly intact. Dressing is CD+I. She is sitting in a recliner and appears comfortable. She is taking PO. 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 No UE DVT. Will discuss plans for further anticoagulation with medicine consultation team. Discussed ABX recommendations with ID consult team who will order and manage Vanc. Cipro and Rifampin. Plan: Dressing change in AM. Consider D/C drains depending on output. Continue to mobilize and progress with PT. Brace when OOB. ABX per ID recommendations. D/C planning likely back to rehab until independent with home functions and then D/C home with home nursing and PT care arrangements.
[2017-12-04 22:05] VITALS: BP 158/60
--- NOTE | 2017-12-04 22:20 | PN- Orthopedic ---
Surgical Brief Attending Note Brief Attending Note: Patient seen by Dr. 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 She continues to setadily improve. She reports moderate pain which is adequately controlled on standard oral pain meds. She has very poor venous access. PICC line is functioning normally. Taking PO but c/o stomach upset probably related to ABX. When she required Vanc for MRSA pneumonia a few years ago she developed C. Diff and so she will be closely monitored for concerning symptoms or signs. She seems to be having some difficulty normalizing her blood glucose and has had some hypoglycemic episodes since this most recent surgery. AVSS. Drain output is steadily decreasing but moderate increase associated with recent increase in walking activities. Dressing CD+I. Dressing changed but drains retained. Incision CD+I. She is neurovascularly intact. Dressing is CD +I. No calf tenderness. No symptom or sign to suggest DVT in any extremity. She is sitting in a recliner and appears comfortable. Patient was able to ambulate in the prajapati with supervision. Once drains are out tomorrow she should be ready for transfer back to rehab within 1-2 days after she has adjusted to the new ABX and is able to take PO well. Appetite and blood glucose must remain stable for at least 1 day prior to rehab transfer. If necessary will consult Dr. Lopez to make any necessary receommendations or adjustements. Plan: Dressing change qD (bid if small amount of drainage). Continue to mobilize and progress with PT. Brace when OOB. ABX per ID recommendations. D/C planning likely back to rehab until independent with home functions and then D/C home with home nursing and PT care arrangements. Close BG monitoring. Endocrinology consultation if BG is not stabilized by tomorrow or significantly worsens at any time. At patient request Dr. Najera met with patient and immediate family ( and children) for conference on 12/04/2017 @ 06:00 PM to discuss details of plans for further treatment including indications and future plans for hardware removal depending on various scenarios. All of the patient's and family's questions were answered to their satisfaction. The patient and family all understand and accept the significant complexity of her history, multiple diagnosed conditions and comorbidities. They all wish to proceed with treatment as planned.
[2017-12-05 06:56] VITALS: BP 164/62
[2017-12-05 08:27] LABS: PT 12.5 SEC (9.4-12.5)
--- NOTE | 2017-12-05 09:07 | Patient Discharge Instructions ---
Discharge Instructions General Discharge Information You were seen/treated for: Draining lumbar wound, rule out infection, dehiscence You had these procedures: Lumbar spine wound irrigation and debridement and placement of drains Watch for these problems: Worsening signs of infection such as fever, flulike illness, draining from the wound, numbness or pain in the extremities, loss of bowel or bladder function Call Surgeon to remove: [place] (1W) Do not soak the wound: Yes No bath, but you may shower: Yes Other wound care: Dry sterile dressings daily with xeroform TELFA WITH TEGADERM OR BOARDER GAUZE, PLEASE TRY TO AVOID TAPE Pain medication as needed Avoid heavy lifting greater than 10 pounds, activity as tolerated, avoid excessive bending, twisting and lifting back brace when out of bed Continue Coumadin for a goal of INR between 2-3 Special Instructions: 1. Continue Vancomycin to plan on a 6-8 week course from her recent surgery 2. Continue Ciprofloxacin to complete at least a 6 week course from her previous surgery (until December 10) 3. Weekly CBC, ESR, BUN/creatinine and Vancomycin level while on Vancomycin 4. Coumadin daily, titrate per INR, target INR 2.0-2.5. Please discuss all anticoagulation requirements and/or changes with Dr. Najera. Lovenox 80 mg subcu twice daily until INR therapeutic Dose Coumadin per INR daily, goal between 2 and 3 Diet Continue normal diet: Yes Activity Full Activity/No Limits: No Activity Self Limited: Yes Pounds, do NOT lift more than: 10 Acute Coronary Syndrome Inclusion Criteria At DC or during hospital stay patient has or had the following: ACS DIAGNOSIS No Discharge Core Measures Meds if any: Prescribed or Continued at Discharge Meds if any: NOT Prescribed or Continued at Discharge Congestive Heart Failure Inclusion Criteria At DC or during hospital stay patient has or had the following: CHF DIAGNOSIS No Discharge Core Measures Meds if any: Prescribed or Continued at Discharge Meds if any: NOT Prescribed or Continued at Discharge Cerebrovascular accident Inclusion Criteria At DC or during hospital stay patient has or had the following: CVA/TIA Diagnosis No Discharge Core Measures Meds if any: Prescribed or Continued at Discharge Meds if any: NOT Prescribed or Continued at Discharge Venous thromboembolism Inclusion Criteria VTE Diagnosis No VTE Type NONE VTE Confirmed by (Test) NONE Discharge Core Measures - Per Current guidelines, there needs to be overlap - treatment for the first 5 days of Warfarin therapy. - If discharged on Warfarin prior to 5 days of - overlap therapy, the patient will need to be - assessed for post discharge needs including - *Post discharge parental anticoagulation - *Warfarin and/or parental anticoagulation education - *Follow up date to check INR post discharge At least 5 days overlap therapy as Inpatient No Meds if any: Prescribed or Continued at Discharge Note: Overlap Therapy is Warfarin and Anticoagulant Meds if any: NOT Prescribed or Continued at Discharge
[2017-12-05] MEDS ORDERED: VANCO 1.251.25 GM/25 IV (09:16)
[2017-12-05] MEDS ORDERED: DOCUSATE SODIU100 M3 PO (09:16)
[2017-12-05] MEDS ORDERED: RIFAMPIN300 M1 PO (09:16)
[2017-12-05] MEDS ORDERED: COUMADIN5 M2 PO (09:23)
--- NOTE | 2017-12-05 09:28 | Discharge Summary ---
Visit Information Visit Dates Admission Date: 11/30/17 Discharge Date: 12/09/17 Hospital Course Course Attending Physician: Dania HARRIS,Ray Rose Primary Care Physician: Radha HARRIS,Flavio Chaudhry Other Care Providers: Dr. Onofre, Dr. Young, Dr. Magana, Dr. Femi Tinsley MD Hospital Course: This is a 72-year-old female who is readmitted for a draining lumbar wound after initial lumbar laminectomy and fusion in September of this year and subsequent infections with a prolonged complicated postoperative course, continued on Cipro as outpatient for this continued infection however her wound continued to drain and she was readmitted for surgical irrigation and debridement. Her INR was elevated at time of admission and she got vitamin K and FFP prior to surgery. She had appropriate medical clearances by cardiology medicine and pulmonology prior to her surgery and underwent the procedure without complications. She had an upper extremity DVT previously with a PICC line and ultrasound was repeated which shows no DVT. She was seen by infectious disease and her cultures grew out MRSA, she was continued on Vanco Cipro and rifampin. Her rifampin was discontinued due to gi distress. Her Coumadin was restarted as her postoperative bleeding had stopped. Patient suffered from acute blood loss anemia postoperatively and required 3 units of blood transfusion when her hematocrit dropped to 22. Her vital signs remained stable, she is afebrile laboratory values stabilized and her pain was controlled, she was deemed stable for transfer to detention facility for continued physical therapy rehabilitation and monitoring of her wound. Complications: Acute blood loss anemia requiring transfusion of 2 units Allergies: Coded Allergies: Sulfa (Sulfonamide Antibiotics) (Intermediate, SKIN TURNS PURPLE/HOT 10/28/17) Penicillins (Mild, ITCHING 10/28/17) aspirin (HX GASTRITIS 10/28/17) ASA->BLEEDING atorvastatin (PER PT MED LIST 10/28/17) prednisone (Severe, VISION CHANGES 10/28/17) Uncoded Allergies: ENVIRONMENTAL (UNKNOWN 07/20/13) MULTIPLE ANTIBIOTICS (UNKNOWN 07/20/13) Significant Procedures: Lumbar wound irrigation and debridement by Ray Najera MD Disposition Summary Disposition Principal Diagnosis: Infected draining lumbar postoperative wound Additional Diagnosis: See HPI Discharge Disposition: SNF Discharge Instructions General Discharge Information Code Status: Full Code Patient's Diet: Regular diet Patient's Activity: Out of bed with assist, requires physical therapy, weightbearing as tolerated Follow-Up Instructions/Appts: Follow-up with Dr. Najera on Thursday12/14/2017 or Thursday12/15/2017 Continue the vancomycin for approximately 6-8 weeks, she will see Dr. TINSLEY in 2 weeks time, weekly CBC, ESR and Vanco trough should be drawn, results to Dr. TINSLEY Continue Cipro until December 10, then this may be discontinued Dry sterile dressing changes to the lumbar wound Medications at Discharge Discharge Medications: Continue taking these medications: Cetirizine HCl (Zyrtec) 10 MG CAPSULE 1 Capsule ORAL DAILY Comments: NOT GIVEN IN HOSPITAL Cholecalciferol (Vitamin D3) (Vitamin D) 1,000 UNIT TABLET 1 Tablet ORAL DAILY Comments: NOT GIVEN IN HOSPITAL Omeprazole (Omeprazole) 40 MG CAPSULE.DR 1 Capsule ORAL DAILY BEFORE BREAKFAST Comments: Last Taken: 11/03/17 Time: 06:33 AM Multivit-Min/FA/Lutein/Zeaxant (Macular Vitamin Tablet) 500 MCG-5 MG-1 MG TABLET 1 Tablet ORAL DAILY Comments: NOT GIVEN IN HOSPITAL Budesonide/Formoterol Fumarate (Symbicort 160-4.5 Mcg Inhaler) 160 MCG-4.5 MCG/ ACTUATION HFA.AER.AD 2 PUFF Inhale through mouth TWICE DAILY Comments: Last Taken: 11/03/17 Time: 0845 AM Multiple Vitamin (Multivitamins) 1 EACH TABLET 1 Tablet ORAL DAILY Comments: NOT GIVEN IN HOSPITAL Montelukast Sodium (Singulair) 10 MG TABLET 1 Tablet ORAL DAILY Comments: Last Taken: 11/02/17 Time: 5:30 PM Sitagliptin Phosphate (Januvia) 100 MG TABLET 1 Tablet ORAL DAILY Comments: NOT GIVEN IN HOSPITAL Azelastine/Fluticasone (Dymista Nasal [place]) 137 MCG-50 MCG/SPRAY SPRAY.PUMP 1 [place] Both sides of nose NEEDED Comments: FLONASE GIVEN Last Taken:11/03/17 Time:0845AM Cyclobenzaprine HCl (Cyclobenzaprine HCl) 5 MG TABLET 1 Tablet ORAL TAKE AT BEDTIME Comments: NOT GIVEN IN HOSPITAL Diltiazem HCl (Cartia Xt) 120 MG CAP.ER.24H 1 Capsule ORAL DAILY Comments: Last Taken: 11/03/17 Time: 8:45 AM Glimepiride (Glimepiride) 2 MG TABLET 1.5 Tablet ORAL DAILY Comments: NOT GIVEN IN HOSPITAL Melatonin (Melatonin) 10 MG CAPSULE 1 Capsule ORAL Every night Comments: NOT GIVEN IN HOSPITAL Ascorbate Calcium (Vitamin C) 500 MG TABLET 1 Tablet ORAL DAILY Comments: NOT GIVEN IN HOSPITAL Albuterol Sulfate (Proair Hfa) 90 MCG HFA.AER.AD 2 Puff Inhale through mouth as needed for ASTHMA/ALLERGIES Comments: Last Taken: 11/01/17 Time: 8:20 AM Polyethylene Glycol 3350 (Miralax) 17 GRAM/DOSE POWDER 17 Gram ORAL DAILY Qty = 1 Comments: Last Taken: 11/03/17 Time: 8:45 AM Hydrocodone/Acetaminophen (Hydrocodon-Acetaminophen 5-325) 5 MG-325 MG TABLET 1 Tablet ORAL EVERY 4 HOURS NEEDED as needed for PAIN SCALE 4-6 (MODERATE ) Qty = 10 Comments: NOT GIVEN IN HOSPITAL Hydrocodone/Acetaminophen (Hydrocodon-Acetaminophen 5-325) 5 MG-325 MG TABLET 2 Tablet ORAL EVERY 4 HOURS NEEDED as needed for PAIN SCALE 7-10 (SEVERE) Qty = 10 Comments: Last Taken:11/03/17 Time:1430 Losartan/Hydrochlorothiazide (Losartan-Hctz 100-25 MG Tab) 100 MG-25 MG TABLET 1 Tablet ORAL DAILY Comments: Last Taken:11/03/17 Time:0857AM Ciprofloxacin HCl (Ciprofloxacin HCl) 750 MG TABLET 1 Tablet ORAL TWICE DAILY Qty = 4 Instructions: STOP ON 12/10/17 Iron Carb,Gl/FA/B12/C/Docusate (Ferralet 90 Tablet) 90 MG-1 MG-12 MCG-120 MG-50 MG TABLET 1 Tablet ORAL DAILY Ondansetron HCl (Zofran) 4 MG TABLET 1 Tablet ORAL THREE TIMES DAILY Sennosides/Docusate Sodium (Senna S Tablet) 8.6 MG-50 MG TABLET 2 Tablet ORAL Every night Lactobacillus Acidophilus (Acidophilus) 1 EACH CAPSULE 1 Capsule ORAL DAILY Start taking the following new medications: Vancomycin/0.9 % Sod Chloride (Vanco 1.25 Gm/250 Ml-0.9% NaCl) 1.25 GRAM/250 ML PLAST..BAG 1.5 Gram INTRAVEN DAILY Qty = 40 No Refills Instructions: CONTINUE FOR 6-[address] TINSLEY Docusate Sodium (Docusate Sodium) 100 MG CAPSULE 100 Milligram ORAL TWICE DAILY Qty = 30 No Refills Warfarin Sodium (Coumadin) 5 MG TABLET 1 Tablet ORAL DAILY Qty = 30 No Refills Instructions: ADJUST DOSE PER INR Ciprofloxacin HCl (Ciprofloxacin HCl) 750 MG TABLET 1 Tablet ORAL TWICE DAILY Qty = 2 No Refills Instructions: LAST DAY OF CIPRO: 12/10/2017 Copies To: Dania HARRIS,Ray Rose
[2017-12-05 09:51] LABS: ABSOLUTE BASOPHIL COUNT 0 /CUMM (0.0-0.2); ABSOLUTE EOSINOPHIL COUNT 0.3 /CUMM (0.0-0.7); ABSOLUTE GRANULOCYTE CT 7.1 /CUMM (1.4-6.5); ABSOLUTE LYMPH COUNT 1.2 /CUMM (1.2-3.4); ABSOLUTE MONOCYTE COUNT 0.8 /CUMM (0.10-0.60); BASOPHIL % 0.3 % (0.0-2.0); EOSINOPHIL % 3.7 % (0-5); GRANULOCYTE % 75.2 % (42.2-75.2); MEAN CORPUSCULAR HGB 27.1 PG (27.0-31.0); MEAN CORPUSCULAR HGB CONC 32.5 G/DL (33.0-37.0); MEAN CORPUSCULAR VOLUME 83.3 FL (81.0-99.0); MEAN PLATELET VOLUME 7.3 FL (7.4-10.4); WHITE BLOOD CELL COUNT 9.5 /CUMM (4.8-10.8)
[2017-12-05 09:55] LABS: PLATELET COUNT 373 /CUMM (130-400)
[2017-12-05 09:56] LABS: RED BLOOD CELL CT 2.66 /CUMM (4.20-5.40)
[2017-12-05 09:57] LABS: HEMATOCRIT 22.1 % (37-47)
--- NOTE | 2017-12-05 10:40 | PN- Orthopedic ---
See Addendum Subjective Subjective: No acute events overnight, no fever. Patient with several loose bowel movements this morning and abdominal cramping Patient seen and examined by Dr. Najera Objective Vital Signs and I&Os Vital Signs Date Time Temp Pulse Resp B/P B/P Pulse O2 O2 Flow FiO2 Mean Ox Delivery Rate 12/05 0812 80 156/60 12/05 0656 98.4 82 18 164/62 96 12/04 2205 98.6 80 18 158/60 98 Room Air 12/04 2125 95 Room Air 12/04 1416 97.9 80 17 170/63 99 Room Air Intake & Output 12/05 1600 12/05 0800 12/05 0000 12/04 1600 12/04 0800 12/04 0000 Intake Total 480 300 920 240 480 Output Total 20 163 718 7363 235 Balance 460 - 245 Intake, IV 300 Intake, Oral 480 300 620 240 480 Number 1 4 1 Bowel Movements Output, 20 35 40 35 35 Drainage Output, Urine 112 086 1386 200 Physical Exam: Well-developed well-nourished no apparent distress. Mildly pale appearing HEENT: Atraumatic, Respiratory: No respiratory distress Back: Dressing clean dry and intact, drains removed without incident, Xeroform and dry sterile dressing applied by Ray Najera MD Extremities: No edema, no calf pain Neuro: Alert and oriented x3. bilateral lower extremities are neurovascular intact with sensation and motor grossly intact. Psych: Mood affect normal, normal memory normal judgment. Skin: Warm and dry, no rash on exposed skin Results Last 48 Hours of Labs: Laboratory Tests 12/05 12/05 12/04 12/03 0930 0720 1230 1242 Coagulation PT (9.4 - 12.5 SEC) 12.5 12.8 H INR (0.90 - 1.19) 1.15 1.17 Hematology CBC w Diff NO MAN DIFF REQ WBC (4.8 - 10.8 /CUMM) 9.5 RBC (4.20 - 5.40 /CUMM) 2.66 L Hgb (12.0 - 16.0 G/DL) 7.2 *L Hct (37 - 47 %) 22.1 L MCV (81.0 - 99.0 FL) 83.3 MCH (27.0 - 31.0 PG) 27.1 MCHC (33.0 - 37.0 G/DL) 32.5 L RDW (11.5 - 14.5 %) 15.0 H Plt Count (130 - 400 /CUMM) 373 MPV (7.4 - 10.4 FL) 7.3 L Gran % (42.2 - 75.2 %) 75.2 Lymphocytes % (20.5 - 51.1 %) 12.2 L Monocytes % (1.7 - 9.3 %) 8.6 Eosinophils % (0 - 5 %) 3.7 Basophils % (0.0 - 2.0 %) 0.3 Absolute Granulocytes (1.4 - 6.5 /CUMM) 7.1 H Absolute Lymphocytes (1.2 - 3.4 /CUMM) 1.2 Absolute Monocytes (0.10 - 0.60 /CUMM) 0.8 H Absolute Eosinophils (0.0 - 0.7 /CUMM) 0.3 Absolute Basophils (0.0 - 0.2 /CUMM) 0 ESR Westergren (0 - 20 MM) 66 H Assessment/Plan Assessment/Plan This 72 year old female with postoperative lumbar wound infection after laminectomy and fusion, POD#4 s/p lumbar wound exploration/i&d, on vanco/cipro/ rifampin for +mrsa from OR cultures Acute blood loss anemia: Transfuse 2 units, recheck in a.m. pain improves with vicodin / prn morphine oob with assistance. continue PT, back brace when out of bed hep sc - dvt ppx until INR therapeutic continue Coumadin, recheck INR in a.m. Lumbar drains removed today by Ray Najera MD Twice daily dressing changes with Xeroform and Telfa until drain sites are dry, then may switch to daily dressing changes Appreciate ID input, will continue antibiotics for 6-8 weeks, vancomycin and rifampin, stop Cipro on 12/10 as she completed a 6 week course DC planning: [facility] Najera Core Measures Venous Thromboembolism VTE Risk Factors Surgery No Mechanical VTE Prophylaxis d/t N/A MechProphylax Ordered No VTE Pharm Prophylaxis d/t Surgical Contraindication
--- NOTE | 2017-12-05 11:55 | PN- Pulmonary ---
Subjective HPI/Critical Care Issues: pt seen and examined hgb 7.2 +fatigue +dyspnea with exertion afebrile some abdominal cramping Objective Current Medications: Current Medications Sig/Clementine Start time Last Medication Dose Route Stop Time Status Admin Acetaminophen 500 MG Q4-6 PRN PRN 12/01 2115 AC PO Albuterol Sulfate 3 ML Q4-PRN PRN 11/30 1915 AC 12/05 INH 1125 Albuterol Sulfate 2 PUF Q4P PRN 11/30 1300 AC 12/05 INH 0128 Alteplase, 2 MG ONE ONE 12/05 0615 DC 12/05 Recombinant IV 12/05 0616 0641 Bismuth Subsalicylate 30 ML PCHS PRN 12/04 1030 AC PO Budesonide/ 2 PUF BID 11/30 2100 AC 12/05 Formoterol Fumarate INH 0812 Ciprofloxacin 750 MG BID 12/02 0900 AC 12/05 PO 12/09 0859 0812 Diltiazem HCl 120 MG DAILY 12/01 0900 AC 12/05 PO 0811 Docusate Sodium 100 MG BID 12/02 0900 AC 12/04 PO 2024 Fluticasone 2 SPRAY DAILY 11/30 1343 AC 12/05 Propionate KIM 0811 Heparin Sodium 5,000 UNIT Q8 12/02 0600 AC 12/05 (Porcine) SC 0523 Hydrochlorothiazide 25 MG DAILY 11/30 214 AC 12/05 PO 0812 Hydrocodone Bitart/ 1 TAB Q4P PRN 12/01 0930 AC Acetaminophen PO Hydrocodone Bitart/ 2 TAB Q4 HRS NEEDED PRN 12/01 0930 AC 12/05 Acetaminophen PO 0950 Insulin Aspart 0 AT BEDTIME 11/30 2100 SC Insulin Human Regular 2 UNITS .STK-MED ONE 12/04 2020 DC IV 12/04 2021 Insulin Human Regular 8 UNITS .STK-MED ONE 12/04 1323 DC IV 12/04 1324 Insulin Human Regular 0 TIDAC/HS 12/02 0800 12/05 SC 0811 Lactobacillus 1 CAP BID 12/02 1018 AC 12/05 Acidophilus PO 0812 Losartan Potassium 100 MG DAILY 11/30 2144 AC 12/05 PO 0812 Melatonin 10 MG .STK-MED ONE 12/04 2133 DC PO 12/04 2134 Melatonin 10 MG AT BEDTIME NEED.. 11/30 2144 AC 12/04 PO 2135 Montelukast Sodium 10 MG AT BEDTIME 11/30 2100 AC 12/04 PO 2023 Morphine Sulfate 2 MG Q2P PRN 11/30 1100 AC 12/04 IV 203 Omeprazole 40 MG DAILY AC 12/02 0739 AC 12/05 PO 0523 Ondansetron HCl 4 MG Q8P PRN 11/30 1100 AC 12/05 IV 0957 Polyethylene Glycol 17 GM DAILY 11/30 1534 AC 12/05 PO 0812 Rifampin 300 MG BID 12/04 2100 12/05 PO 0812 Rifampin 450 MG BID 12/03 1300 DC 12/04 PO 0939 Sodium Chloride 2 SPRAY Q4P PRN 11/30 1345 12/05 KIM 0810 Vancomycin HCl 1,250 MG DAILY 12/03 0900 12/05 Sodium Chloride 250 ML IV 0951 Warfarin Sodium 5 MG COUMADIN 1700 ONE 12/05 1700 AC PO 12/05 1701 Warfarin Sodium 5 MG COUMADIN 1700 ONE 12/04 1700 DC 12/04 PO 12/04 1701 1758 Vital Signs & I&O Last 24 Hrs of Vitals and I&O: Vital Signs Date Time Temp Pulse Resp B/P B/P Pulse O2 O2 Flow FiO2 Mean Ox Delivery Rate 12/05 1128 98 Room Air 12/05 0812 80 156/60 12/05 0800 96 12/05 0656 98.4 82 18 164/62 96 12/04 2205 98.6 80 18 158/60 98 Room Air 12/04 2125 95 Room Air 12/04 1416 97.9 80 17 170/63 99 Room Air Intake & Output 12/05 1600 12/05 0800 12/05 0000 Intake Total 480 300 Output Total 20 735 Balance 460 -435 Intake, Oral 480 300 Number 1 Bowel Movements Output, 20 35 Drainage Output, Urine 700 Exam Other Physical Findings: [id number] head/neck-room air cvs-s1,s2 lungs-anterior chest clear abd-soft,bs+ ext-no edema LE Results Last 24 Hrs of Lab Results: Laboratory Tests 12/05/17 0930: CBC w Diff NO MAN DIFF REQ, RBC 2.66 L, MCV 83.3, MCH 27.1, MCHC 32.5 L, RDW 15.0 H, MPV 7.3 L, Gran % 75.2, Lymphocytes % 12.2 L, Monocytes % 8.6, Eosinophils % 3.7, Basophils % 0.3, Absolute Granulocytes 7.1 H, Absolute Lymphocytes 1.2, Absolute Monocytes 0.8 H, Absolute Eosinophils 0.3, Absolute Basophils 0 12/05/17 0720: PT 12.5, INR 1.15 12/04/17 1230: PT 12.8 H, INR 1.17 Impression/Plan Impression/Plan Impression/Plan: Impression 71 year old woman * extensive back surgery history with drainage * History of RUE DVT * hx of asthma * hx of MRSA pna * Anemia Plan -to get transfused -pain control - Incentive Spirometry -TRC/Nebs - asked for nebulizer therapy -f/u ID, cardiology recommendations -continue symbicort -a/c on hold due to anemia and recent surgery DVT prophylaxis at all times
--- NOTE | 2017-12-05 13:28 | PN- Att Addend ---
Attending Addendum Attending Brief Note Patient seen and examined, not feeling well. She was complaining of some shortness of breath. She also had large volume of stool although that's not that loose and she was also complaining of some abdominal pain with nausea stress. Patient has dropped her H&H. Vital Signs Date Time Temp Pulse Resp B/P B/P Pulse O2 O2 Flow FiO2 Mean Ox Delivery Rate 12/05 1128 98 Room Air 12/05 0812 80 156/60 12/05 0800 96 12/05 0656 98.4 82 18 164/62 96 12/04 2205 98.6 80 18 158/60 98 Room Air 12/04 2125 95 Room Air 12/04 1416 97.9 80 17 170/63 99 Room Air on exam; aox3, nad. cv; s1,s2 rrr resp; clear abd; soft, nt, bs+ ext; no edema back: intact dressing with drains removed. Laboratory Tests 12/05 12/05 0930 0720 Coagulation PT (9.4 - 12.5 SEC) 12.5 INR (0.90 - 1.19) 1.15 Hematology CBC w Diff NO MAN DIFF REQ WBC (4.8 - 10.8 /CUMM) 9.5 RBC (4.20 - 5.40 /CUMM) 2.66 L Hgb (12.0 - 16.0 G/DL) 7.2 *L Hct (37 - 47 %) 22.1 L MCV (81.0 - 99.0 FL) 83.3 MCH (27.0 - 31.0 PG) 27.1 MCHC (33.0 - 37.0 G/DL) 32.5 L RDW (11.5 - 14.5 %) 15.0 H Plt Count (130 - 400 /CUMM) 373 MPV (7.4 - 10.4 FL) 7.3 L Gran % (42.2 - 75.2 %) 75.2 Lymphocytes % (20.5 - 51.1 %) 12.2 L Monocytes % (1.7 - 9.3 %) 8.6 Eosinophils % (0 - 5 %) 3.7 Basophils % (0.0 - 2.0 %) 0.3 Absolute Granulocytes (1.4 - 6.5 /CUMM) 7.1 H Absolute Lymphocytes (1.2 - 3.4 /CUMM) 1.2 Absolute Monocytes (0.10 - 0.60 /CUMM) 0.8 H Absolute Eosinophils (0.0 - 0.7 /CUMM) 0.3 Absolute Basophils (0.0 - 0.2 /CUMM) 0 Assessment and recommendations: 72 y/o F with pmh sig for 2 recent hospitalization status post laminectomy for spinal stenosis on 10/07/17 complicated by acute surgical blood loss anemia with bradycardia and hypotension requiring vasopressors and fluid resuscitation and right upper extremity DVT on Coumadin admitted with postoperative lumbar wound infection after laminectomy and fusion, POD#4 s/p lumbar wound exploration/i&d, on vanco/cipro/rifampin for +mrsa from OR cultures. Coumadin was initially held and was restarted as of yesterday. This morning patient had a significant drop in her H&H. Recommend RBC transfusion. Can cortez continue coumadin with recent DVT and it will not bring INR up too quickly as pt has received Vit K. But if H&H continues to run low despite transfusion, then would rtecommend hold coumadin. please order stool for guaiac to rule out any GI bleed. Antibiotics per infectious disease. Continue other current cardiac medications. Patient getting TRC nebs for shortness of breath. Also noted the patient on heparin subcutaneous. With a drop in H&H, I would recommend stopping the heparin subcutaneous H&H is stabilized. D/W surgical MISBAH Pratt.
[2017-12-05 15:11] VITALS: BP 140/60
[2017-12-05 21:33] VITALS: BP 140/66
[2017-12-06 06:11] LABS: ABSOLUTE BASOPHIL COUNT 0 /CUMM (0.0-0.2); ABSOLUTE EOSINOPHIL COUNT 0.5 /CUMM (0.0-0.7); ABSOLUTE GRANULOCYTE CT 6.4 /CUMM (1.4-6.5); BASOPHIL % 0.4 % (0.0-2.0); EOSINOPHIL % 5.3 % (0-5); GRANULOCYTE % 63.9 % (42.2-75.2); MEAN CORPUSCULAR HGB CONC 33.3 G/DL (33.0-37.0); PLATELET COUNT 398 /CUMM (130-400); RBC DISTRIBUTION WIDTH 14.5 % (11.5-14.5); RED BLOOD CELL CT 3.28 /CUMM (4.20-5.40)
[2017-12-06 06:14] LABS: HEMATOCRIT 27.6 % (37-47)
[2017-12-06 06:16] LABS: PT 11.8 SEC (9.4-12.5)
[2017-12-06 07:11] VITALS: BP 156/62
--- NOTE | 2017-12-06 08:30 | PN- Orthopedic ---
Vero Harding 12/06/17825: Subjective Subjective: Patient in room sitting in chair with complaints of diarrhea, nausea, and right thigh pain. Patient states that during the night last night she started having pain radiating from her groin down to her thigh and a little bit into her leg and foot, she asked to have the alps removed. Patient denies paresthesias. Patient is hoping that stopping the rifampin will help her nausea subside. Objective Vital Signs and I&Os Vital Signs Date Time Temp Pulse Resp B/P B/P Pulse O2 O2 Flow FiO2 Mean Ox Delivery Rate 12/06 0800 Room Air 12/06 0711 98.0 80 18 156/62 96 12/05 2133 140/66 12/05 2058 97 Room Air 12/05 1511 98.1 82 20 140/60 99 Room Air 12/05 1128 98 Room Air Intake & Output 12/06 1600 12/06 0800 12/06 0000 12/05 1600 12/05 0800 12/05 0000 Intake Total 785 137 3102 480 300 Output Total 4167 828 3508 20 735 Balance -520 190 -20 460 -435 Intake, Blood 350 Product Intake, IV 10 280 Intake, Oral 480 480 600 480 300 Number 3 1 Bowel Movements Output, 20 35 Drainage Output, Urine 5344 818 8803 700 Physical Exam: Generalno acute distress Respirations clear to auscultation bilaterally Cardiacregular rate and rhythm Abdomenobese, nontender Backdressing changed, minimal drainage. Sutures in place no signs of infection , no surrounding erythema or drainage. Clean dry dressing applied. Extremitiesno calf tenderness. Distal sensory and motor function intact. Minimal swelling bilaterally. Current Medications: Current Medications Sig/Clementine Start time Last Medication Dose Route Stop Time Status Admin Acetaminophen 500 MG Q4-6 PRN PRN 12/01 2114 AC PO Albuterol Sulfate 3 ML Q4-PRN PRN 11/30 1915 AC 12/05 INH 205 Albuterol Sulfate 2 PUF Q4P PRN 11/30 1300 AC 12/05 INH 0128 Bismuth Subsalicylate 30 ML PCHS PRN 12/04 1030 AC PO Budesonide/ 2 PUF BID 11/30 2100 AC 12/06 Formoterol Fumarate INH 0743 Ciprofloxacin 750 MG BID 12/02 0900 AC 12/05 PO 12/09 0859 2021 Diltiazem HCl 120 MG DAILY 12/01 0900 AC 12/05 PO 0811 Docusate Sodium 100 MG BID 12/02 0900 AC 12/05 PO 2021 Fluticasone 2 SPRAY DAILY 11/30 1343 AC 12/06 Propionate KIM 0743 Heparin Sodium 5,000 UNIT Q8 12/02 0600 DC 12/05 (Porcine) SC 0523 Hydrochlorothiazide 25 MG DAILY 11/30 2145 12/05 PO 0812 Hydrocodone Bitart/ 1 TAB Q4P PRN 12/01 0930 AC Acetaminophen PO Hydrocodone Bitart/ 2 TAB Q4 HRS NEEDED PRN 12/01 0930 AC 12/06 Acetaminophen PO 0740 Insulin Aspart 0 AT BEDTIME 11/30 2100 SC Insulin Human Regular 2 UNITS .STK-MED ONE 12/05 2018 DC IV 12/05 2019 Insulin Human Regular 2 UNITS .STK-MED ONE 12/05 1633 DC IV 12/05 1634 Insulin Human Regular 8 UNITS .STK-MED ONE 12/05 1233 DC IV 12/05 1234 Insulin Human Regular 0 TIDAC/HS 12/02 0800 12/06 SC 0753 Lactobacillus 1 CAP BID 12/02 1018 AC 12/05 Acidophilus PO 2021 Losartan Potassium 100 MG DAILY 11/30 214 12/05 PO 811 Melatonin 10 MG .STK-MED ONE 12/05 2033 DC PO 12/05 2034 Melatonin 10 MG AT BEDTIME NEED.. 11/30 2145 12/05 PO 2034 Montelukast Sodium 10 MG AT BEDTIME 11/30 2100 12/05 PO 2021 Morphine Sulfate 2 MG Q2P PRN 11/30 1100 12/04 IV 203 Omeprazole 40 MG DAILY AC 12/02 0739 AC 12/06 PO 0544 Ondansetron HCl 4 MG Q8P PRN 11/30 1100 12/05 IV 1658 Polyethylene Glycol 17 GM DAILY 11/30 1534 12/05 PO 0812 Rifampin 300 MG BID 12/04 2100 12/05 PO 202 Sodium Chloride 2 SPRAY Q4P PRN 11/30 1345 AC 12/06 KIM 0743 Vancomycin HCl 1,250 MG DAILY 12/03 0900 AC 12/05 Sodium Chloride 250 ML IV 0951 Warfarin Sodium 5 MG COUMADIN 1700 ONE 12/05 1700 DC 12/05 PO 12/05 1701 1603 Results Last 48 Hours of Labs: Laboratory Tests 12/06 12/05 0600 0930 Coagulation PT (9.4 - 12.5 SEC) 11.8 INR (0.90 - 1.19) 1.08 Hematology CBC w Diff NO MAN DIFF REQ NO MAN DIFF REQ WBC (4.8 - 10.8 /CUMM) 10.0 9.5 RBC (4.20 - 5.40 /CUMM) 3.28 L 2.66 L Hgb (12.0 - 16.0 G/DL) 9.2 L 7.2 *L Hct (37 - 47 %) 27.6 L 22.1 L MCV (81.0 - 99.0 FL) 84.0 83.3 MCH (27.0 - 31.0 PG) 28.0 27.1 MCHC (33.0 - 37.0 G/DL) 33.3 32.5 L RDW (11.5 - 14.5 %) 14.5 15.0 H Plt Count (130 - 400 /CUMM) 398 373 MPV (7.4 - 10.4 FL) 7.0 L 7.3 L Gran % (42.2 - 75.2 %) 63.9 75.2 Lymphocytes % (20.5 - 51.1 %) 20.2 L 12.2 L Monocytes % (1.7 - 9.3 %) 10.2 H 8.6 Eosinophils % (0 - 5 %) 5.3 H 3.7 Basophils % (0.0 - 2.0 %) 0.4 0.3 Absolute Granulocytes (1.4 - 6.5 /CUMM) 6.4 7.1 H Absolute Lymphocytes (1.2 - 3.4 /CUMM) 2.0 1.2 Absolute Monocytes (0.10 - 0.60 /CUMM) 1.0 H 0.8 H Absolute Eosinophils (0.0 - 0.7 /CUMM) 0.5 0.3 Absolute Basophils (0.0 - 0.2 /CUMM) 0 0 12/05 12/04 0720 1230 Coagulation PT (9.4 - 12.5 SEC) 12.5 12.8 H INR (0.90 - 1.19) 1.15 1.17 Hematology WBC Cancelled RBC Cancelled Hgb Cancelled Hct Cancelled MCV Cancelled MCH Cancelled MCHC Cancelled RDW Cancelled Plt Count Cancelled MPV Cancelled Assessment/Plan Assessment/Plan This 72 year old female with postoperative lumbar wound infection after laminectomy and fusion, POD#5 s/p lumbar wound exploration/i&d, on vanco/cipro/ rifampin for +mrsa from OR cultures Will order US to rule out DVT today Check c diff due to diarrhea, and prolonged course of ABX Stool guiac pending Acute blood loss anemia: Transfused 2 units yesterday. Crit up for 27.6 from 22 yesterday pain improves with vicodin / prn morphine oob with assistance. continue PT, back brace when out of bed hep sc on hold due to anemia continue Coumadin for now Daily dressing changes with Xeroform and Island dressing Appreciate ID input, will continue antibiotics for 6-8 weeks, vancomycin, stop Cipro on 12/10 as she completed a 6 week course. Per ID will stoip Rifiampin DC planning: possibly tomorrow to snf Core Measures Venous Thromboembolism VTE Risk Factors Surgery No Mechanical VTE Prophylaxis d/t N/A MechProphylax Ordered No VTE Pharm Prophylaxis d/t Surgical Contraindication Dania HARRIS,Ray Deanna 12/09/17 0059: Attending MD Review Statement Attending Statement Attending MD Statement: examined this patient, discuss w/resident/PA/[employer], agreed w/resident/PA/[employer], discussed with family, reviewed EMR data (avail), discussed w/ nursing Attending Assessment/Plan: Patient seen by Dr. Najera for routine postoperative inpatient follow-up evaluation on 12/06/2017 @ 11:00 AM: David Eduardo is a 72 year old female now POD #5 S/P Lumbar surgical site (L2-S1 ) I&D with incisional margin resection and revision (12/01/2017, Dania/Ke ) whose operative cultures from that surgery were positive for MRSA from both the superficial and deep spaces. She is currently on Vanc, Cipro (for previous Cx documented infection of Klebsiella) and Rifampin. ID has decreased Rifampin dose to see if patient's fairly severe GI symptoms improve. Dr. Simon is considering discontinuing Rifampin altogether if GI symptoms persist particularly given that the patient's GI distress seemed to begin with and are best explained by the initial administration of this medication. Her stomach upset, loose bowel movements persist. Her general malaise has improved considerably after transfusion with her HVT increased from 22 to 27. Her pain remains adequately controlled on standard oral pain meds even as her mobility increases. She has very poor venous access. PICC line is functioning normally. PO intake is still limited with poor appetite related to GI symptoms. By earlier report patient had hip and groin region pain and tenderness possibly extending down the anteromedial thigh. Doppler is pending. Patient now reports that those symptoms resolved however patient history puts her in increased risk category and so will proceed with "rule out" workup. Medicine is also concerned that she has now been off of anticoagulant for several days since surgery. Given that today's concern involves a new extremity, these symptoms of concern are only intermittent and seem to have already reesolved, her previously positive right upper extremity Doppler is now negative, she has already had a left upper extremity "rule out" evaluation which was negative and her postoperative spine surgery status and hypersensitivity to many medications suggests that she is likely at higher risk for bleeding from anticoagulation treatment than most patients, I feel that the patient's risk for DVT and indications for thromboembolic prophylaxis must be balanced against the risk of aggressive therapy during the early postoperative period. This was discussed with the patient and she accepts associated risks of both proceeding with and/or holding anticoagulant treatment. Given her continued diarrhea on ABX we will check for C.Diff. AVSS. H/H improved after 2U. She is sitting in a recliner and appears comfortable. Less somnolent and more conversational today. Dressing CD+I except small inferior serosanguinous area. This area appears to be draining a small amount with each bid dressing change. It is unclear whether it is decreasing in volume slowly but it does not appear to be increasing. Also small amount of drainage from drain sites after drains removed. Dressing changed. Incision CD+I. New dressing placed using clean technique. She is neurovascularly intact. No calf tenderness. No symptom or sign to suggest DVT in any extremity to current exam. Hip ROM somewhat limited (possibly arthritic) but not significantly painful or reproductive of earlier reported hip and groin symptoms. Patient is mobilizing fairly well. She is nearly independent. I have recommended monitoring her for another night and will consider transfer to rehab tomorrow if drainage stops and HCT remains stable. Plan: Dressing change bid until dry x 2 then qd Continue to mobilize and progress with PT. Ambulate in hallway 4-5 times per day. Brace when OOB. ABX per ID recommendations. D/C planning likely back to rehab until independent with home functions and then D/C home with home nursing and PT care arrangements. Patient is considering different rehab facility. She and family will discuss with D/C planning. Recheck H/H in AM. Check for C. Diff. and guiac for occult blood.
--- NOTE | 2017-12-06 09:07 | PN- Infect Dx ---
Subjective Subjective: Afebrile. She feels poorly with complaints of nausea and diarrhea. She also notes continued back pain and right hip/thigh pain. She also reports some shortness of breath. Objective Last 24 Hrs of Vital Signs/I&O Vital Signs Date Time Temp Pulse Resp B/P B/P Pulse O2 O2 Flow FiO2 Mean Ox Delivery Rate 12/06 0800 Room Air 12/06 0711 98.0 80 18 156/62 96 12/05 2133 140/66 12/05 2059 97 Room Air 12/05 1511 98.1 82 20 140/60 99 Room Air 12/05 1128 98 Room Air Intake & Output 12/06 1600 12/06 0800 12/06 0000 Intake Total 480 490 Output Total 1000 300 Balance -520 190 Intake, IV 10 Intake, Oral 480 480 Output, Urine 1000 300 Physical Exam Other Physical Findings: She appears uncomfortable but in no acute distress Lungs are clear Heart regular rhythm without murmur Abdomen is soft, nontender with positive bowel sounds Back incision clean, with no erythema, but with a small amount of drainage reported Extremities no cyanosis, clubbing or edema; PICC in the left upper extremity with no inflammation at the site Results Last 24 Hours of Lab Results: Laboratory Tests 12/06 12/05 0600 0930 Coagulation PT (9.4 - 12.5 SEC) 11.8 INR (0.90 - 1.19) 1.08 Hematology CBC w Diff NO MAN DIFF REQ NO MAN DIFF REQ WBC (4.8 - 10.8 /CUMM) 10.0 9.5 RBC (4.20 - 5.40 /CUMM) 3.28 L 2.66 L Hgb (12.0 - 16.0 G/DL) 9.2 L 7.2 *L Hct (37 - 47 %) 27.6 L 22.1 L MCV (81.0 - 99.0 FL) 84.0 83.3 MCH (27.0 - 31.0 PG) 28.0 27.1 MCHC (33.0 - 37.0 G/DL) 33.3 32.5 L RDW (11.5 - 14.5 %) 14.5 15.0 H Plt Count (130 - 400 /CUMM) 398 373 MPV (7.4 - 10.4 FL) 7.0 L 7.3 L Gran % (42.2 - 75.2 %) 63.9 75.2 Lymphocytes % (20.5 - 51.1 %) 20.2 L 12.2 L Monocytes % (1.7 - 9.3 %) 10.2 H 8.6 Eosinophils % (0 - 5 %) 5.3 H 3.7 Basophils % (0.0 - 2.0 %) 0.4 0.3 Absolute Granulocytes (1.4 - 6.5 /CUMM) 6.4 7.1 H Absolute Lymphocytes (1.2 - 3.4 /CUMM) 2.0 1.2 Absolute Monocytes (0.10 - 0.60 /CUMM) 1.0 H 0.8 H Absolute Eosinophils (0.0 - 0.7 /CUMM) 0.5 0.3 Absolute Basophils (0.0 - 0.2 /CUMM) 0 0 Last 24 Hours of Chucky Results: No new cultures Assessment/Plan ID Impression: Recent GI complaints, possibly secondary to the Rifampin, which was begun 3 days ago for possible synergy with the Vancomycin for her MRSA infection, versus C. difficile, given her prolonged antibiotics, versus an adverse reaction from one of her other medications. She remains afebrile with a normal white blood cell count on Vancomycin and Rifampin now 5 days status post I&D of a surgical site infection secondary to MRSA and coag negative Staph following an I&D 4 weeks prior to admission for a surgical site infection secondary to Klebsiella (for which she remains on Ciprofloxacin) complicating a decompressive lumbar laminectomy L2-S1 3 weeks earlier. She is aware of the possibility that this infection may not clear without removal of the hardware. Suggestion: 1. Stool for C. difficile 2. Repeat chemistries 3. Vancomycin trough level with her next dose 4. Discontinue Rifampin 5. Continue Vancomycin and Ciprofloxacin
--- NOTE | 2017-12-06 11:24 | PN- Pulmonary ---
Subjective HPI/Critical Care Issues: pt seen and examined returned from ultrasound +diarrhea +dyspnea relieved by nebs Objective Current Medications: Current Medications Sig/Clementine Start time Last Medication Dose Route Stop Time Status Admin Acetaminophen 500 MG Q4-6 PRN PRN 12/01 2115 AC PO Albuterol Sulfate 3 ML Q4-PRN PRN 11/30 1915 AC 12/06 INH 1103 Albuterol Sulfate 2 PUF Q4P PRN 11/30 1300 AC 12/05 INH 0128 Bismuth Subsalicylate 30 ML PCHS PRN 12/04 1030 AC PO Budesonide/ 2 PUF BID 11/30 2100 AC 12/06 Formoterol Fumarate INH 0743 Ciprofloxacin 750 MG BID 12/02 0900 AC 12/06 PO 12/09 0859 0908 Diltiazem HCl 120 MG DAILY 12/01 0900 AC 12/06 PO 0908 Docusate Sodium 100 MG BID 12/02 0900 AC 12/05 PO 2022 Fluticasone 2 SPRAY DAILY 11/30 1343 AC 12/06 Propionate KIM 0743 Heparin Sodium 5,000 UNIT Q8 12/02 0600 DC 12/05 (Porcine) SC 0523 Hydrochlorothiazide 25 MG DAILY 11/30 214 AC 12/06 PO 0907 Hydrocodone Bitart/ 1 TAB Q4P PRN 12/01 0930 AC Acetaminophen PO Hydrocodone Bitart/ 2 TAB Q4 HRS NEEDED PRN 12/01 0930 AC 12/06 Acetaminophen PO 0740 Insulin Aspart 0 AT BEDTIME 11/30 2100 [facility] Insulin Human Regular 2 UNITS .STK-MED ONE 12/05 2017 DC IV 12/05 2019 Insulin Human Regular 2 UNITS .STK-MED ONE 12/05 1633 DC IV 12/05 1634 Insulin Human Regular 8 UNITS .STK-MED ONE 12/05 1233 DC IV 12/05 1234 Insulin Human Regular 0 TIDAC/HS 12/02 0800 AC 12/06 SC 0753 Lactobacillus 1 CAP BID 12/02 1018 AC 12/06 Acidophilus PO 09 Losartan Potassium 100 MG DAILY 11/30 2144 AC 12/06 PO 906 Melatonin 10 MG .STK-MED ONE 12/05 2033 DC PO 12/05 2034 Melatonin 10 MG AT BEDTIME NEED.. 11/30 2144 AC 12/05 PO 2034 Montelukast Sodium 10 MG AT BEDTIME 11/30 2100 AC 12/05 PO 2021 Morphine Sulfate 2 MG Q2P PRN 11/30 1100 AC 12/04 IV 2039 Omeprazole 40 MG DAILY AC 12/02 0739 AC 12/06 PO 0544 Ondansetron HCl 4 MG Q8P PRN 11/30 1100 AC 12/06 IV 0917 Polyethylene Glycol 17 GM DAILY 11/30 1534 AC 12/05 PO 0812 Rifampin 300 MG BID 12/04 2100 DC 12/06 PO 0910 Sodium Chloride 2 SPRAY Q4P PRN 11/30 1345 AC 12/06 KIM 0743 Vancomycin HCl 1,250 MG DAILY 12/03 0900 AC 12/06 Sodium Chloride 250 ML IV 0908 Warfarin Sodium 5 MG COUMADIN 1700 ONE 12/05 1700 DC 12/05 PO 12/05 1701 1603 Vital Signs & I&O Last 24 Hrs of Vitals and I&O: Vital Signs Date Time Temp Pulse Resp B/P B/P Pulse O2 O2 Flow FiO2 Mean Ox Delivery Rate 12/06 0907 71 148/62 12/06 0800 Room Air 12/06 0711 98.0 80 18 156/62 96 12/05 2133 140/66 12/05 2059 97 Room Air 12/05 1511 98.1 82 20 140/60 99 Room Air 12/05 1128 98 Room Air Intake & Output 12/06 1600 12/06 0800 12/06 0000 Intake Total 480 490 Output Total 1000 300 Balance -520 190 Intake, IV 10 Intake, Oral 480 480 Output, Urine 1000 300 Exam Other Physical Findings: [id number] head/neck-room air cvs-s1,s2 lungs-anterior chest clear abd-soft,bs+ ext-no edema LE Results Last 24 Hrs of Lab Results: Laboratory Tests 12/06/17 0600: PT 11.8, INR 1.08, CBC w Diff NO MAN DIFF REQ, RBC 3.28 L, MCV 84.0, MCH 28.0, MCHC 33.3, RDW 14.5, MPV 7.0 L, Gran % 63.9, Lymphocytes % 20.2 L, Monocytes % 10.2 H, Eosinophils % 5.3 H, Basophils % 0.4, Absolute Granulocytes 6.4, Absolute Lymphocytes 2.0, Absolute Monocytes 1.0 H, Absolute Eosinophils 0.5, Absolute Basophils 0 Impression/Plan Impression/Plan Impression/Plan: Impression 71 year old woman * extensive back surgery history with drainage * History of RUE DVT * hx of asthma * hx of MRSA pna * Anemia Plan -pain control - Incentive Spirometry -TRC/Nebs - asked for nebulizer therapy - can change to BID if pt prefers -f/u ID, cardiology recommendations -continue symbicort -a/c on hold due to anemia and recent surgery DVT prophylaxis at all times
--- NOTE | 2017-12-06 11:51 | ULTRASOUND REPORT ---
EXAMINATION: US TRIPLEX LOWER EXTREMITY, RIGHT CLINICAL INFORMATION: Right mid thigh pain COMPARISON: Previous exam most recent September 2017 TECHNIQUE: Color-flow triplex imaging with spectral analysis and compression Doppler were performed on the veins of the lower extremity. FINDINGS: Respiratory variation, normal compression and augmented flow are noted throughout the lower extremity. The visualized common femoral vein, superficial femoral vein, profunda femoral vein, popliteal vein and midcalf peroneal and posterior tibial venous segments show no evidence of deep venous thrombosis. There is no Mclean's cyst. IMPRESSION: No evidence of deep venous thrombosis involving the lower extremity.
--- NOTE | 2017-12-06 13:26 | PN- Att Addend ---
Attending Addendum Attending Brief Note Patient seen and examined, continues to complain of stomach discomfort. She has consistent feeling of some nauseous past. Stool for C. difficile was checked today and it was negative. Vital Signs Date Time Temp Pulse Resp B/P B/P Pulse O2 O2 Flow FiO2 Mean Ox Delivery Rate 12/06 0907 71 148/62 12/06 0800 Room Air 12/06 0711 98.0 80 18 156/62 96 12/05 2133 140/66 12/05 2059 97 Room Air 12/05 1511 98.1 82 20 140/60 99 Room Air on exam; aox3, nad. cv; s1,s2 rrr resp; clear abd; soft, nt, bs+ ext; no edema Laboratory Tests 12/06 12/06 1135 0600 Chemistry Sodium (137 - 145 mmol/L) 138 Potassium (3.5 - 5.1 mmol/L) 4.2 Chloride (98 - 107 mmol/L) 100 Carbon Dioxide (22 - 30 mmol/L) 30 Anion Gap (5 - 16) 7 BUN (7 - 17 mg/dL) 8 Creatinine (0.5 - 1.0 mg/dL) 0.6 Estimated GFR (>60 ml/min) > 60 BUN/Creatinine Ratio (7 - 25 %) 13.3 Coagulation PT (9.4 - 12.5 SEC) 11.8 INR (0.90 - 1.19) 1.08 Hematology CBC w Diff NO MAN DIFF REQ WBC (4.8 - 10.8 /CUMM) 10.0 RBC (4.20 - 5.40 /CUMM) 3.28 L Hgb (12.0 - 16.0 G/DL) 9.2 L Hct (37 - 47 %) 27.6 L MCV (81.0 - 99.0 FL) 84.0 MCH (27.0 - 31.0 PG) 28.0 MCHC (33.0 - 37.0 G/DL) 33.3 RDW (11.5 - 14.5 %) 14.5 Plt Count (130 - 400 /CUMM) 398 MPV (7.4 - 10.4 FL) 7.0 L Gran % (42.2 - 75.2 %) 63.9 Lymphocytes % (20.5 - 51.1 %) 20.2 L Monocytes % (1.7 - 9.3 %) 10.2 H Eosinophils % (0 - 5 %) 5.3 H Basophils % (0.0 - 2.0 %) 0.4 Absolute Granulocytes (1.4 - 6.5 /CUMM) 6.4 Absolute Lymphocytes (1.2 - 3.4 /CUMM) 2.0 Absolute Monocytes (0.10 - 0.60 /CUMM) 1.0 H Absolute Eosinophils (0.0 - 0.7 /CUMM) 0.5 Absolute Basophils (0.0 - 0.2 /CUMM) 0 Assessment and recommendations: 72 y/o F with pmh sig for 2 recent hospitalization status post laminectomy for spinal stenosis on 10/07/17 complicated by acute surgical blood loss anemia with bradycardia and hypotension requiring vasopressors and fluid resuscitation and right upper extremity DVT on Coumadin admitted with postoperative lumbar wound infection after laminectomy and fusion, POD#5 s/p lumbar wound exploration/i&d, on vanco/cipro/rifampin for +mrsa from OR cultures. H&H improved after transfusion. Stool for C. difficile negative. Antibiotics per infectious disease recommendations. Continue TRC nebs and other current meds. INR is still subtherapeutic. Dose Coumadin accordingly. Continue TRC nebs.
[2017-12-06 14:48] VITALS: BP 152/82
[2017-12-06 21:23] VITALS: BP 154/72
[2017-12-07 06:39] VITALS: BP 176/72
[2017-12-07 07:56] LABS: ABSOLUTE BASOPHIL COUNT 0 /CUMM (0.0-0.2); ABSOLUTE EOSINOPHIL COUNT 0.5 /CUMM (0.0-0.7); ABSOLUTE LYMPH COUNT 1.5 /CUMM (1.2-3.4); BASOPHIL % 0.4 % (0.0-2.0); EOSINOPHIL % 4.5 % (0-5); GRANULOCYTE % 70.2 % (42.2-75.2); HEMATOCRIT 26.1 % (37-47); MEAN CORPUSCULAR HGB 27.8 PG (27.0-31.0); MEAN CORPUSCULAR HGB CONC 32.9 G/DL (33.0-37.0); MEAN CORPUSCULAR VOLUME 84.7 FL (81.0-99.0); MEAN PLATELET VOLUME 7.8 FL (7.4-10.4); PLATELET COUNT 387 /CUMM (130-400); RBC DISTRIBUTION WIDTH 15.4 % (11.5-14.5); RED BLOOD CELL CT 3.09 /CUMM (4.20-5.40)
--- NOTE | 2017-12-07 08:11 | PN- Neurosurgical ---
See Addendum Subjective Subjective: Patient continues to complain of abdominal discomfort despite stopping rifampin yesterday. She also continues to complain of pain radiating down her right back thigh. She denies parathesias. She is voiding and moving her bowels, which are loose, c.diff was negative. Per nursing, patient dressing became slightly saturated at around 8:00 last night. Objective Vital Signs and I&Os Vital Signs Date Time Temp Pulse Resp B/P B/P Pulse O2 O2 Flow FiO2 Mean Ox Delivery Rate 12/07 0639 98.4 79 20 176/72 96 12/06 2123 98.3 85 154/72 98 Room Air 12/06 1940 97 Room Air Room Air 12/06 1448 77 20 152/82 100 Room Air 12/06 1103 98 Room Air 12/06 0907 71 148/62 12/06 0800 Room Air Intake & Output 12/07 0800 12/07 0000 12/06 1600 12/06 0800 12/06 0000 12/05 1600 Intake Total 480 1230 371 513 2255 Output Total 406 374 9853 300 1250 Balance -120 430 -520 190 -20 Intake, Blood 350 Product Intake, IV 270 10 280 Intake, Oral 480 960 480 480 600 Number 1 1 3 Bowel Movements Output, Urine 191 514 9648 300 1250 Physical Exam: General - sitting up in bed in nad Lungs - fair inspiratory effort, CTAB Cardiac - S1S2 noted Abdomen - obese, nontender Back - dressing slightly saturated with serosanguineous drainage, sutures in place with no surrounding erythema or active drainage noted, dressing changed Extremities - no significant edema or calf tenderness, nvi intact Current Medications: Current Medications Sig/Clementine Start time Last Medication Dose Route Stop Time Status Admin Acetaminophen 500 MG Q4-6 PRN PRN 12/01 2114 AC PO Albuterol Sulfate 3 ML BID 12/06 2100 AC 12/06 INH 1939 Albuterol Sulfate 3 ML Q4-PRN PRN 11/30 1915 AC 12/06 INH 1103 Albuterol Sulfate 2 PUF Q4P PRN 11/30 1300 AC 12/05 INH 0128 Bismuth Subsalicylate 30 ML PCHS PRN 12/04 1030 AC PO Budesonide/ 2 PUF BID 11/30 2100 AC 12/06 Formoterol Fumarate INH 211 Ciprofloxacin 750 MG BID 12/02 0900 AC 12/06 PO 12/09 0859 2105 Diltiazem HCl 120 MG DAILY 12/01 0900 AC 12/06 PO 0908 Docusate Sodium 100 MG BID 12/02 0900 AC 12/05 PO 2022 Fluticasone 2 SPRAY DAILY 11/30 1343 AC 12/06 Propionate KIM 0743 Hydrochlorothiazide 25 MG DAILY 11/30 2145 12/07 PO 0636 Hydrocodone Bitart/ 1 TAB Q4P PRN 12/01 0930 AC Acetaminophen PO Hydrocodone Bitart/ 2 TAB Q4 HRS NEEDED PRN 12/01 0930 AC 12/07 Acetaminophen PO 0557 Insulin Aspart 0 AT BEDTIME 11/30 2100 SC Insulin Human Regular 4 UNITS .STK-MED ONE 12/06 1646 DC IV 12/06 1647 Insulin Human Regular 8 UNITS .STK-MED ONE 12/06 1143 DC IV 12/06 1144 Insulin Human Regular 0 TIDAC/HS 12/02 0800 12/06 SC 1649 Lactobacillus 1 CAP BID 12/02 1018 AC 12/06 Acidophilus PO 2105 Losartan Potassium 100 MG DAILY 11/30 214 12/06 PO 0907 Melatonin 10 MG .STK-MED ONE 12/06 210 DC PO 12/06 2108 Melatonin 10 MG AT BEDTIME NEED.. 11/30 214 12/06 PO 2109 Montelukast Sodium 10 MG AT BEDTIME 11/30 2100 12/06 PO 2104 Morphine Sulfate 2 MG Q2P PRN 11/30 1100 12/04 IV 2039 Omeprazole 40 MG DAILY AC 12/02 0739 12/07 PO 0555 Ondansetron HCl 4 MG .STK-MED ONE 12/06 1903 DC IM 12/06 1904 Ondansetron HCl 4 MG .STK-MED ONE 12/06 0916 DC IM 12/06 0917 Ondansetron HCl 4 MG Q8P PRN 11/30 1100 AC 12/06 IV 1923 Polyethylene Glycol 17 GM DAILY 11/30 1534 AC 12/05 PO 0812 Rifampin 300 MG BID 12/04 2100 IN 12/06 PO 0910 Sodium Chloride 2 SPRAY Q4P PRN 11/30 1345 12/06 KIM 0743 Vancomycin HCl 1,250 MG DAILY 12/03 0900 AC 12/06 Sodium Chloride 250 ML IV 0908 Results Last 48 Hours of Labs: Laboratory Tests 12/07 12/06 12/06 0600 1135 0600 Chemistry Sodium (137 - 145 mmol/L) 138 Potassium (3.5 - 5.1 mmol/L) 4.2 Chloride (98 - 107 mmol/L) 100 Carbon Dioxide (22 - 30 mmol/L) 30 Anion Gap (5 - 16) 7 BUN (7 - 17 mg/dL) 8 Creatinine (0.5 - 1.0 mg/dL) 0.6 Estimated GFR (>60 ml/min) > 60 BUN/Creatinine Ratio (7 - 25 %) 13.3 Coagulation PT (9.4 - 12.5 SEC) Pending 11.8 INR (0.90 - 1.19) Pending 1.08 Hematology CBC w Diff Pending NO MAN DIFF REQ WBC (4.8 - 10.8 /CUMM) Pending 10.0 RBC (4.20 - 5.40 /CUMM) Pending 3.28 L Hgb (12.0 - 16.0 G/DL) Pending 9.2 L Hct (37 - 47 %) Pending 27.6 L MCV (81.0 - 99.0 FL) Pending 84.0 MCH (27.0 - 31.0 PG) Pending 28.0 MCHC (33.0 - 37.0 G/DL) Pending 33.3 RDW (11.5 - 14.5 %) Pending 14.5 Plt Count (130 - 400 /CUMM) Pending 398 MPV (7.4 - 10.4 FL) Pending 7.0 L Gran % (42.2 - 75.2 %) 63.9 Lymphocytes % (20.5 - 51.1 %) 20.2 L Monocytes % (1.7 - 9.3 %) 10.2 H Eosinophils % (0 - 5 %) 5.3 H Basophils % (0.0 - 2.0 %) 0.4 Absolute Granulocytes (1.4 - 6.5 /CUMM) 6.4 Absolute Lymphocytes (1.2 - 3.4 /CUMM) 2.0 Absolute Monocytes (0.10 - 0.60 /CUMM) 1.0 H Absolute Eosinophils (0.0 - 0.7 /CUMM) 0.5 Absolute Basophils (0.0 - 0.2 /CUMM) 0 12/05 0930 Hematology CBC w Diff NO MAN DIFF REQ WBC (4.8 - 10.8 /CUMM) 9.5 RBC (4.20 - 5.40 /CUMM) 2.66 L Hgb (12.0 - 16.0 G/DL) 7.2 *L Hct (37 - 47 %) 22.1 L MCV (81.0 - 99.0 FL) 83.3 MCH (27.0 - 31.0 PG) 27.1 MCHC (33.0 - 37.0 G/DL) 32.5 L RDW (11.5 - 14.5 %) 15.0 H Plt Count (130 - 400 /CUMM) 373 MPV (7.4 - 10.4 FL) 7.3 L Gran % (42.2 - 75.2 %) 75.2 Lymphocytes % (20.5 - 51.1 %) 12.2 L Monocytes % (1.7 - 9.3 %) 8.6 Eosinophils % (0 - 5 %) 3.7 Basophils % (0.0 - 2.0 %) 0.3 Absolute Granulocytes (1.4 - 6.5 /CUMM) 7.1 H Absolute Lymphocytes (1.2 - 3.4 /CUMM) 1.2 Absolute Monocytes (0.10 - 0.60 /CUMM) 0.8 H Absolute Eosinophils (0.0 - 0.7 /CUMM) 0.3 Absolute Basophils (0.0 - 0.2 /CUMM) 0 Recent Imaging Studies: SERVICE DATE: 12/06/17- EXAM TYPE: US - US-DUPLEX VENOUS EXTREM UNI EXAMINATION: US TRIPLEX LOWER EXTREMITY, RIGHT CLINICAL INFORMATION: Right mid thigh pain COMPARISON: Previous exam most recent September 2017 TECHNIQUE: Color-flow triplex imaging with spectral analysis and compression Doppler were performed on the veins of the lower extremity. FINDINGS: Respiratory variation, normal compression and augmented flow are noted throughout the lower extremity. The visualized common femoral vein, superficial femoral vein, profunda femoral vein, popliteal vein and midcalf peroneal and posterior tibial venous segments show no evidence of deep venous thrombosis. There is no Mclean's cyst. IMPRESSION: No evidence of deep venous thrombosis involving the lower extremity. Assessment/Plan Assessment/Plan 72 F admitted with postoperative lumbar wound infection s/p laminectomy and fusion who is now POD 6 s/p lumbar wound exploration, I&D with + MRSA OR cultures, currently on vanco and cipro Cont ada diet Cont IV abx per ID Pain regimen prn Redose Coumadin pending labs ISS on board Hold hsq due to anemia Daily dressing changes with xeroform and island dressing OOB ambulation, back brace when OOB Cont TRC, encourage IS Follow up labs Appreciate ID, medicine involvement Will d/w Dr. Najera Core Measures Venous Thromboembolism VTE Risk Factors Surgery No Mechanical VTE Prophylaxis d/t N/A MechProphylax Ordered No VTE Pharm Prophylaxis d/t Surgical Contraindication
[2017-12-07 08:12] LABS: PT 11.7 SEC (9.4-12.5)
--- NOTE | 2017-12-07 08:20 | PN- Medicine Consult ---
Brody HARRIS,Sadie 12/07/17 0819: Assessment/PlanMedical Consult Assessment/Plan Assessment: 72-year-old woman with multiple medical problems significant for 2 recent hospitalization status post laminectomy for spinal stenosis on 10/07/17 complicated by acute surgical blood loss anemia with bradycardia and hypotension requiring vasopressors and fluid resuscitation and right upper extremity DVT on Coumadin sent in from [facility] facility for increasing drainage from her midline surgical site. Problem list -Surgical site infection with MRSA, klebsiella -Recent laminectomy complicated with acute blood loss anemia -Dyspnea with profound edema -Chronic back pain status post lumbar fusion -Right upper extremity DVT on Coumadin -Vui-trbxrbs-sclwhmjfy diabetes mellitus -Osteoarthritis -GERD -COPD, not on home oxygen -History of asthma/bronchitis -Hyperlipidemia -History of TIA Recommendations -Postoperative care per primary surgical team -I&D of surgical site - MRSA in spinal and blood cultures, started on IV vancomycin and continue ciprofloxacin for Klebsiella. - Please recheck INR daily - PA lateral CXR and one dose of lasix if evidence of congestion - Check ProBNP - Consider transfusion if Hb continues to drop, please start Iron supplements. - Restarted warfarin, holded due to bleed yesterday. Strongly suggest to continue if bleeding risk is acceptable. - Pain management per surgical team -Ensure DVT prophylaxis at all times Plan: as above Problem List: 1. Spinal abscess 2. MRSA (methicillin resistant staph aureus) culture positive 3. Shortness of breath Subjective Subjective: Seen and examined at bedside Reports difficulty with breathing. Had some bleeding yesterday from the wound, appears subsided by today am. Pain is agreeable. Family meeting held and apparently continuing on 6 week of antibiotics and then considering to review again. Review of Systems Constitutional: Reports: see HPI. Objective Last 24 Hrs of Vital Signs/I&O Vital Signs Date Time Temp Pulse Resp B/P B/P Pulse O2 O2 Flow FiO2 Mean Ox Delivery Rate 12/07 0639 98.4 79 20 176/72 96 12/06 2123 98.3 85 154/72 98 Room Air 12/06 1940 97 Room Air Room Air 12/06 1448 77 20 152/82 100 Room Air 12/06 1103 98 Room Air 12/06 0907 71 148/62 Intake & Output 12/07 1600 12/07 0800 12/07 0000 Intake Total 480 Output Total 600 Balance -120 Intake, IV Intake, Oral 480 Number 1 Bowel Movements Output, Urine 600 Physical Exam General Appearance: alert, awake, mild distress Head: atraumatic, normal appearance Ears, Nose, Throat: normal pharynx Neck: normal inspection, supple Cardiovascular: regular rate/rhythm, normal peripheral pulses, significant peripheral edema Respiratory: normal breath sounds, chest non-tender, crackles at bilateral bases Abdomen: normal bowel sounds, soft, non-tender Back: brace around with dressing present Extremities: normal inspection, swelling Current Medications: Current Medications Sig/Clementine Start time Last Medication Dose Route Stop Time Status Admin Acetaminophen 500 MG Q4-6 PRN PRN 12/01 211 AC PO Albuterol Sulfate 3 ML BID 12/06 2100 AC 12/07 INH 2033 Albuterol Sulfate 3 ML Q4-PRN PRN 11/30 1915 AC 12/06 INH 1103 Albuterol Sulfate 2 PUF Q4P PRN 11/30 1300 AC 12/05 INH 0128 Bismuth Subsalicylate 30 ML PCHS PRN 12/04 1030 AC PO Budesonide/ 2 PUF BID 11/30 2100 AC 12/08 Formoterol Fumarate INH 0759 Ciprofloxacin 750 MG BID 12/02 0900 AC 12/07 PO 12/09 0859 2138 Diltiazem HCl 120 MG DAILY 12/01 0900 AC 12/07 PO 0835 Docusate Sodium 100 MG BID 12/02 0900 AC 12/07 PO 2138 Enoxaparin Sodium 80 MG BID 12/07 1128 AC 12/07 SC 2141 Fluticasone 2 SPRAY DAILY 11/30 1343 AC 12/08 Propionate KIM 0800 Hydrochlorothiazide 25 MG DAILY 11/30 2145 AC 12/07 PO 0636 Hydrocodone Bitart/ 1 TAB Q4P PRN 12/01 0930 AC Acetaminophen PO Hydrocodone Bitart/ 2 TAB Q4 HRS NEEDED PRN 12/01 0930 AC 12/08 Acetaminophen PO 0325 Insulin Aspart 0 TIDAC 12/07 1200 AC 12/07 SC 1713 Insulin Aspart 0 AT BEDTIME 11/30 2100 AC SC Lactobacillus 1 CAP BID 12/02 1018 AC 12/07 Acidophilus PO 2138 Losartan Potassium 100 MG DAILY 11/30 2145 AC 12/07 PO 0835 Melatonin 10 MG .STK-MED ONE 12/07 2140 DC PO 12/07 214 Melatonin 10 MG AT BEDTIME NEED.. 11/30 2145 AC 12/07 PO 2142 Montelukast Sodium 10 MG AT BEDTIME 11/30 2100 AC 12/07 PO 2138 Morphine Sulfate 2 MG Q2P PRN 11/30 1100 AC 12/04 IV 2039 Non-Formulary 0 SEE ADMIN CRITERIA 12/07 1515 UNV Medication ANY Omeprazole 40 MG DAILY AC 12/02 0739 AC 12/08 PO 0617 Ondansetron HCl 4 MG .STK-MED ONE 12/07 1719 DC IM 12/07 1720 Ondansetron HCl 4 MG Q8P PRN 11/30 1100 AC 12/08 IV 0757 Patient Medication 1 ED ONE ONE 12/07 0930 DC Teaching ED 12/07 0931 Polyethylene Glycol 17 GM DAILY 11/30 1534 12/08 PO 0743 Sodium Chloride 2 SPRAY Q4P PRN 11/30 1345 AC 12/08 KIM 0800 Vancomycin HCl 1,500 MG DAILY 12/08 0900 AC Sodium Chloride 250 ML IV Vancomycin HCl 1,250 MG DAILY 12/03 0900 AC 12/07 Sodium Chloride 250 ML IV 12/08 0859 0836 Warfarin Sodium 5 MG COUMADIN 1700 ONE 12/07 1700 DC 12/07 PO 12/07 1701 1713 Results Last 24 Hrs Lab/Chucky Results: Laboratory Tests 12/08/17 0627: PT Pending, INR Pending, CBC w Diff Pending, WBC Pending, RBC Pending, Hgb Pending, Hct Pending, MCV Pending, MCH Pending, MCHC Pending, RDW Pending, Plt Count Pending, MPV Pending 12/07/17 0830: [id number] Pept 772 H, Albumin 3.3 L, TSH 0.917, Free T4 1.40, Vancomycin Trough 9.5 L lAl Magana MD 12/07/17 1633: Attending MD Review Statement Attending Sign Off Attending Cosign Statement: I have: examined this patient, reviewed aval EMR data, discussd w/resident/PA/ LICENSED TAX CONSULTANT, discussed mgmt plan w/annam arie, discussed mgmt plan w/CM, discussed mgmt plan w/ pt, agreed w/resident/PA/LICENSED TAX CONSULTANT, amended to note. Other Findings: The patient was seen and discussed with house staff and orthopedics. Concern with slow drop in H/H associated with anti-coagulant use and frequent phlebotomy. The patient was on iron supplements prior to admission. Consider restarting iron therapy as inpatient. CXR negative and lungs clear at time of my exam. Has some diffuse abdominal discomfort (?secondary to Rifampin). C-diff is negative. No BM's since yesterday per patient.
--- NOTE | 2017-12-07 08:38 | PN- Pulmonary ---
Subjective HPI/Critical Care Issues: pt seen and examined afebrile 96% on ra hgb 8.6 Objective Current Medications: Current Medications Sig/Clementine Start time Last Medication Dose Route Stop Time Status Admin Acetaminophen 500 MG Q4-6 PRN PRN 12/01 211 AC PO Albuterol Sulfate 3 ML BID 12/06 2100 AC 12/06 INH 1939 Albuterol Sulfate 3 ML Q4-PRN PRN 11/30 1915 AC 12/06 INH 1103 Albuterol Sulfate 2 PUF Q4P PRN 11/30 1300 AC 12/05 INH 0128 Bismuth Subsalicylate 30 ML PCHS PRN 12/04 1030 AC PO Budesonide/ 2 PUF BID 11/30 2100 AC 12/06 Formoterol Fumarate INH 211 Ciprofloxacin 750 MG BID 12/02 09 AC 12/06 PO 12/09 0859 2105 Diltiazem HCl 120 MG DAILY 12/01 0900 AC 12/06 PO 0908 Docusate Sodium 100 MG BID 12/02 0900 AC 12/05 PO 2022 Fluticasone 2 SPRAY DAILY 11/30 1343 AC 12/06 Propionate KIM 0743 Hydrochlorothiazide 25 MG DAILY 11/30 2144 AC 12/07 PO 0636 Hydrocodone Bitart/ 1 TAB Q4P PRN 12/01 0930 AC Acetaminophen PO Hydrocodone Bitart/ 2 TAB Q4 HRS NEEDED PRN 12/01 0930 AC 12/07 Acetaminophen PO 0557 Insulin Aspart 0 TIDAC 12/07 1200 AC SC Insulin Aspart 0 AT BEDTIME 11/30 2100 AC SC Insulin Human Regular 4 UNITS .STK-MED ONE 12/06 1646 DC IV 12/06 1647 Insulin Human Regular 8 UNITS .STK-MED ONE 12/06 1143 DC IV 12/06 1144 Insulin Human Regular 0 TIDAC/HS 12/02 0800 DC 12/06 SC 1649 Lactobacillus 1 CAP BID 12/02 1018 AC 12/06 Acidophilus PO 2105 Losartan Potassium 100 MG DAILY 11/30 2144 AC 12/06 PO 09 Melatonin 10 MG .STK-MED ONE 12/06 2106 DC PO 12/06 2108 Melatonin 10 MG AT BEDTIME NEED.. 11/30 2144 AC 12/06 PO 210 Montelukast Sodium 10 MG AT BEDTIME 11/30 2100 AC 12/06 PO 210 Morphine Sulfate 2 MG Q2P PRN 11/30 1100 AC 12/04 IV 2039 Omeprazole 40 MG DAILY AC 12/02 0739 AC 12/07 PO 0555 Ondansetron HCl 4 MG .STK-MED ONE 12/06 190 DC IM 12/06 190 Ondansetron HCl 4 MG .STK-MED ONE 12/06 0916 DC IM 12/06 0917 Ondansetron HCl 4 MG Q8P PRN 11/30 1100 12/06 IV 1923 Polyethylene Glycol 17 GM DAILY 11/30 1534 AC 12/05 PO 0812 Rifampin 300 MG BID 12/04 2100 DC 12/06 PO 0910 Sodium Chloride 2 SPRAY Q4P PRN 11/30 1345 12/06 KIM 0743 Vancomycin HCl 1,250 MG DAILY 12/03 0900 12/06 Sodium Chloride 250 ML IV 0908 Vital Signs & I&O Last 24 Hrs of Vitals and I&O: Vital Signs Date Time Temp Pulse Resp B/P B/P Pulse O2 O2 Flow FiO2 Mean Ox Delivery Rate 12/07 0639 98.4 79 20 176/72 96 12/06 2123 98.3 85 154/72 98 Room Air 12/06 1940 97 Room Air Room Air 12/06 1448 77 20 152/82 100 Room Air 12/06 1103 98 Room Air 12/06 0907 71 148/62 Intake & Output 12/07 1600 12/07 0800 12/07 0000 Intake Total 480 Output Total 600 Balance -120 Intake, IV Intake, Oral 480 Number 1 Bowel Movements Output, Urine 600 Exam Other Physical Findings: [id number] head/neck-room air cvs-s1,s2 lungs-crackles at bilateral bases abd-soft,bs+ ext-mild edema LE b/l Results Last 24 Hrs of Lab Results: Laboratory Tests 12/07/17 0600: PT 11.7, INR 1.07, CBC w Diff NO MAN DIFF REQ, RBC 3.09 L, MCV 84.7, MCH 27.8, MCHC 32.9 L, RDW 15.4 H, MPV 7.8, Gran % 70.2, Lymphocytes % 15.4 L, Monocytes % 9.5 H, Eosinophils % 4.5, Basophils % 0.4, Absolute Granulocytes 7.0 H, Absolute Lymphocytes 1.5, Absolute Monocytes 1.0 H, Absolute Eosinophils 0.5, Absolute Basophils 0 12/06/17 1135: Anion Gap 7, Estimated GFR > 60, BUN/Creatinine Ratio 13.3 Impression/Plan Impression/Plan Impression/Plan: Impression 71 year old woman * extensive back surgery history with drainage * History of RUE DVT * hx of asthma * hx of MRSA pna * Anemia Plan -CXR pa/lateral today, assess for venous congestion in setting of edema - can consider lasix -pain control - Incentive Spirometry -TRC/Nebs - changed to prn and BID -f/u ID, cardiology recommendations -continue symbicort -a/c on hold due to anemia and recent surgery DVT prophylaxis at all times
--- NOTE | 2017-12-07 10:40 | RADIOLOGY REPORT ---
EXAMINATION: XR CHEST CLINICAL INFORMATION: Chest congestion. COMPARISON: 11/30/2017 TECHNIQUE: 2 views of the chest were obtained. FINDINGS: Left-sided PICC line terminates near the cavoatrial junction. The lungs are well expanded. There is no focal consolidation, edema, or effusion. No pneumothorax. The cardiomediastinal silhouette is within normal limits. No acute osseous abnormality. Mild degenerative changes of the spine. IMPRESSION: No acute pulmonary finding.
[2017-12-07 13:53] VITALS: BP 158/76
[2017-12-07 14:08] VITALS: BP 158/78
--- NOTE | 2017-12-07 18:40 | PN- Infect Dx ---
Subjective Subjective: Afebrile. She still notes some abdominal discomfort and anorexia but feels improved, with no further diarrhea. She also reports improvement in her shortness of breath. Objective Last 24 Hrs of Vital Signs/I&O Vital Signs Date Time Temp Pulse Resp B/P B/P Pulse O2 O2 Flow FiO2 Mean Ox Delivery Rate 12/07 1408 98.0 79 18 158/78 97 Room Air 12/07 1353 97.6 77 18 158/76 97 Room Air 12/07 1330 97 Room Air 12/07 1041 Room Air 1.5L 12/07 0800 Room Air 12/07 0639 98.4 79 20 176/72 96 12/06 2123 98.3 85 154/72 98 Room Air 12/06 1940 97 Room Air Room Air Intake & Output 12/07 1600 12/07 0800 12/07 0000 Intake Total 650 480 Output Total 300 600 Balance 350 -120 Intake, IV 250 Intake, Oral 400 480 Number 0 1 Bowel Movements Output, Urine 300 600 Physical Exam Other Physical Findings: She appears more comfortable in no acute distress Lungs are clear Heart regular rhythm with no murmur Abdomen is mildly distended, nontender with positive bowel sounds Back dressing intact Extremities PICC in the left upper extremity with no inflammation at the site Results Last 24 Hours of Lab Results: Laboratory Tests 12/07 12/07 0830 0600 Chemistry [id number]-Xsrzpeqktpr Pept (<125 pg/mL) 772 H Albumin (3.5 - 5.0 g/dL) 3.3 L TSH (0.270 - 4.200 uIU/mL) 0.917 Free T4 (0.78 - 2.44 ng/dL) 1.40 Coagulation PT (9.4 - 12.5 SEC) 11.7 INR (0.90 - 1.19) 1.07 Hematology CBC w Diff NO MAN DIFF REQ WBC (4.8 - 10.8 /CUMM) 10.0 RBC (4.20 - 5.40 /CUMM) 3.09 L Hgb (12.0 - 16.0 G/DL) 8.6 L Hct (37 - 47 %) 26.1 L MCV (81.0 - 99.0 FL) 84.7 MCH (27.0 - 31.0 PG) 27.8 MCHC (33.0 - 37.0 G/DL) 32.9 L RDW (11.5 - 14.5 %) 15.4 H Plt Count (130 - 400 /CUMM) 387 MPV (7.4 - 10.4 FL) 7.8 Gran % (42.2 - 75.2 %) 70.2 Lymphocytes % (20.5 - 51.1 %) 15.4 L Monocytes % (1.7 - 9.3 %) 9.5 H Eosinophils % (0 - 5 %) 4.5 Basophils % (0.0 - 2.0 %) 0.4 Absolute Granulocytes (1.4 - 6.5 /CUMM) 7.0 H Absolute Lymphocytes (1.2 - 3.4 /CUMM) 1.5 Absolute Monocytes (0.10 - 0.60 /CUMM) 1.0 H Absolute Eosinophils (0.0 - 0.7 /CUMM) 0.5 Absolute Basophils (0.0 - 0.2 /CUMM) 0 Toxicology Vancomycin Trough (10.0 - 20.0 ug/mL) 9.5 L Last 24 Hours of Chucky Results: Stool C. difficile December 06 negative Recent Imaging Studies: Doppler of the right lower extremity December 06 negative Chest x-ray December 07 negative Assessment/Plan ID Impression: Overall stable, with some improvement in her GI complaints, which were possibly secondary to the Rifampin, which has been discontinued. She remains afebrile with a normal white blood cell count on Vancomycin and Ciprofloxacin now 6 days status post I&D of a surgical site infection secondary to MRSA and coag negative Staph following an I&D 4 weeks prior to admission for a surgical site infection secondary to Klebsiella complicating a decompressive lumbar laminectomy L2-S1 3 weeks earlier. She is aware of the possibility that this infection may not clear without removal of the hardware. Her Vancomycin trough level is noted and her dose can be increased. Her anemia may be multifactorial now status post transfusion of 4 units of blood since her surgery. Suggestion: 1. Increase Vancomycin to 1500 mg IV every 24 hours 2. Continue Ciprofloxacin
[2017-12-07 22:29] VITALS: BP 158/66
[2017-12-08 06:39] VITALS: BP 156/76
[2017-12-08 08:16] LABS: ABSOLUTE BASOPHIL COUNT 0.1 /CUMM (0.0-0.2); ABSOLUTE EOSINOPHIL COUNT 0.5 /CUMM (0.0-0.7); ABSOLUTE GRANULOCYTE CT 7.3 /CUMM (1.4-6.5); ABSOLUTE LYMPH COUNT 2.1 /CUMM (1.2-3.4); ABSOLUTE MONOCYTE COUNT 1.2 /CUMM (0.10-0.60); BASOPHIL % 0.7 % (0.0-2.0); EOSINOPHIL % 4.8 % (0-5); GRANULOCYTE % 65.2 % (42.2-75.2); MEAN CORPUSCULAR HGB 27.8 PG (27.0-31.0); MEAN CORPUSCULAR HGB CONC 32.8 G/DL (33.0-37.0); MEAN CORPUSCULAR VOLUME 84.8 FL (81.0-99.0); MEAN PLATELET VOLUME 7.6 FL (7.4-10.4); PLATELET COUNT 431 /CUMM (130-400); RBC DISTRIBUTION WIDTH 15.2 % (11.5-14.5); RED BLOOD CELL CT 3.82 /CUMM (4.20-5.40); WHITE BLOOD CELL COUNT 11.2 /CUMM (4.8-10.8)
--- NOTE | 2017-12-08 08:26 | PN- Medicine Consult ---
Brody HARRIS,Sadie 12/08/17 0826: Assessment/PlanMedical Consult Assessment/Plan Assessment: 72-year-old woman with multiple medical problems significant for 2 recent hospitalization status post laminectomy for spinal stenosis on 10/07/17 complicated by acute surgical blood loss anemia with bradycardia and hypotension requiring vasopressors and fluid resuscitation and right upper extremity DVT on Coumadin sent in from [facility] facility for increasing drainage from her midline surgical site. Problem list -Surgical site infection with MRSA, klebsiella -Recent laminectomy complicated with acute blood loss anemia -Diffuse abdominal pain with right leg pain -Chronic back pain status post lumbar fusion -Right upper extremity DVT on Coumadin -Opq-yibawbs-kwhbqvhzf diabetes mellitus -Osteoarthritis -GERD -COPD, not on home oxygen -History of asthma/bronchitis -Hyperlipidemia -History of TIA Recommendations -Postoperative care per primary surgical team -I&D of surgical site - MRSA in spinal and blood cultures, started on IV vancomycin and continue ciprofloxacin for Klebsiella. - Please recheck INR daily - Check stool PCR for C.diff - Follow up with ID if considering CT abdomen and pelvis for further evaluation. - Consider muscle relaxant for hip pain - Consider transfusion if Hb continues to drop, please start Iron supplements. Appears stabilized today - Cotinue warfarin dosing with lovenox bridging. - Pain management per surgical team -Ensure DVT prophylaxis at all times Plan: as above Problem List: 1. Shortness of breath 2. Wound infection 3. DVT (deep venous thrombosis) 4. Hardware complicating wound infection 5. MRSA (methicillin resistant staph aureus) culture positive Subjective Subjective: Patient reports significant abdominal pain with discomfort which was not helped with bowel movement. She had 2 bowel movements today. she also reports significant right hip pain not really spastic. No associated fevers so far. Feels nauseous, forcing herself to eat. Review of Systems Constitutional: Reports: see HPI. Objective Last 24 Hrs of Vital Signs/I&O Vital Signs Date Time Temp Pulse Resp B/P B/P Pulse O2 O2 Flow FiO2 Mean Ox Delivery Rate 12/08 0747 96 Room Air 12/08 0639 98.3 77 16 156/76 96 Room Air 12/07 2229 98.3 86 16 158/66 97 Room Air 12/07 2037 98 Room Air 12/07 1600 Room Air 12/07 1408 98.0 79 18 158/78 97 Room Air 12/07 1353 97.6 77 18 158/76 97 Room Air 12/07 1330 97 Room Air 12/07 1041 Room Air 1.5L Intake & Output 12/08 1600 12/08 0800 12/08 0000 Intake Total 220 830 Output Total 1300 500 Balance -1080 330 Intake, Blood 350 Product Intake, Oral 220 480 Number 1 Bowel Movements Output, Urine 1300 500 Physical Exam General Appearance: alert, awake, moderate distress Head: atraumatic, normal appearance Ears, Nose, Throat: normal pharynx, normal ENT inspection Neck: normal inspection, supple Cardiovascular: regular rate/rhythm Respiratory: normal breath sounds, chest non-tender, no respiratory distress Peripheral Pulses: 2+ radial (R), 2+ radial (L) Abdomen: soft, tenderness in the lower abdomen region, unable examine completely due to brace Back: brace around Extremities: normal inspection, normal capillary refill Current Medications: Current Medications Sig/Clementine Start time Last Medication Dose Route Stop Time Status Admin Acetaminophen 500 MG Q4-6 PRN PRN 12/01 2115 AC PO Albuterol Sulfate 3 ML BID 12/06 2100 AC 12/08 INH 0928 Albuterol Sulfate 3 ML Q4-PRN PRN 11/30 1915 AC 12/06 INH 1103 Albuterol Sulfate 2 PUF Q4P PRN 11/30 1300 AC 12/05 INH 0128 Bismuth Subsalicylate 30 ML PCHS PRN 12/04 1030 AC PO Budesonide/ 2 PUF BID 11/30 2100 AC 12/08 Formoterol Fumarate INH 0759 Cetirizine HCl 10 MG DAILY 12/08 1000 AC PO Ciprofloxacin 750 MG BID 12/02 0900 AC 12/08 PO 12/09 0859 0841 Cyclobenzaprine HCl 5 MG TIDPRN PRN 12/08 0945 AC PO Diltiazem HCl 120 MG DAILY 12/01 0900 AC 12/08 PO 0840 Docusate Sodium 100 MG BID 12/02 0900 AC 12/07 PO 2138 Enoxaparin Sodium 80 MG BID 12/07 1128 AC 12/08 SC 0840 Fluticasone 2 SPRAY DAILY 11/30 1343 AC 12/08 Propionate KIM 0800 Hydrochlorothiazide 25 MG DAILY 11/30 2145 AC 12/08 PO 0840 Hydrocodone Bitart/ 1 TAB Q4P PRN 12/01 0930 AC 12/08 Acetaminophen PO 0847 Hydrocodone Bitart/ 2 TAB Q4 HRS NEEDED PRN 12/01 0930 AC 12/08 Acetaminophen PO 0325 Insulin Aspart 0 TIDAC 12/07 1200 AC 12/08 SC 0841 Insulin Aspart 0 AT BEDTIME 11/30 2100 AC SC Lactobacillus 1 CAP BID 12/02 1018 AC 12/08 Acidophilus PO 0840 Losartan Potassium 100 MG DAILY 11/30 2145 AC 12/08 PO 0841 Melatonin 10 MG .STK-MED ONE 12/07 214 DC PO 12/07 214 Melatonin 10 MG AT BEDTIME NEED.. 11/30 214 AC 12/07 PO 2142 Montelukast Sodium 10 MG AT BEDTIME 11/30 2100 AC 12/07 PO 2138 Morphine Sulfate 2 MG Q2P PRN 11/30 1100 AC 12/04 IV 2039 Omeprazole 40 MG DAILY AC 12/02 0739 12/08 PO 0617 Ondansetron HCl 4 MG .STK-MED ONE 12/07 1719 DC IM 12/07 1720 Ondansetron HCl 4 MG Q8P PRN 11/30 1100 12/08 IV 0757 Polyethylene Glycol 17 GM DAILY 11/30 1534 12/08 PO 0743 Sodium Chloride 2 SPRAY Q4P PRN 11/30 1345 12/08 KIM 0800 Vancomycin HCl 1,500 MG DAILY 12/08 09 AC Sodium Chloride 250 ML IV Vancomycin HCl 1,250 MG DAILY 12/03 09 AK 12/07 Sodium Chloride 250 ML IV 12/08 0859 0836 Warfarin Sodium 7.5 MG COUMADIN 1700 12/08 1700 AC PO 12/08 2359 Warfarin Sodium 5 MG COUMADIN 1700 [facility] 12/07 1700 [place] 12/07 PO 12/07 1701 1713 Results Last 24 Hrs Lab/Chucky Results: Laboratory Tests 12/08/17 0627: PT 13.0 H, INR 1.19, CBC w Diff NO MAN DIFF REQ, RBC 3.82 L, MCV 84.8, MCH 27.8, MCHC 32.8 L, RDW 15.2 H, MPV 7.6, Gran % 65.2, Lymphocytes % 18.8 L, Monocytes % 10.5 H, Eosinophils % 4.8, Basophils % 0.7, Absolute Granulocytes 7.3 H, Absolute Lymphocytes 2.1, Absolute Monocytes 1.2 H, Absolute Eosinophils 0.5, Absolute Basophils 0.1 All Magana MD 12/08/17 2200: Attending MD Review Statement Attending Sign Off Attending Cosign Statement: I have: examined this patient, reviewed aval EMR data, discussd w/resident/PA/ CTO, discussed mgmt plan w/anna marie, discussed mgmt plan w/pt, agreed w/resident/PA/CTO , amended to note. Other Findings: The patient was seen and discussed with house staff. Still with abdominal pain and some loose stool (improved). Will check PCR for C-diff. Plan as per Ortho and ID- on Vanco/Cipro (Rifampin stopped).
[2017-12-08 08:35] LABS: HEMATOCRIT 32.5 % (37-47)
--- NOTE | 2017-12-08 09:37 | PN- Orthopedic ---
See Addendum Subjective Subjective: Pain is well controlled in the lower back, she is having right leg and groin pain that has been present over the last several days and increased with increased activity. There is no weakness or numbness. She states her stomach upset is about the same Objective Vital Signs and I&Os Vital Signs Date Time Temp Pulse Resp B/P B/P Pulse O2 O2 Flow FiO2 Mean Ox Delivery Rate 12/08 0932 98 Room Air 12/08 0841 77 156/76 12/08 0747 96 Room Air 12/08 0639 98.3 77 16 156/76 96 Room Air 12/07 2229 98.3 86 16 158/66 97 Room Air 12/07 2037 98 Room Air 12/07 1600 Room Air 12/07 1408 98.0 79 18 158/78 97 Room Air 12/07 1353 97.6 77 18 158/76 97 Room Air 12/07 1330 97 Room Air 12/07 1041 Room Air 1.5L Intake & Output 12/08 1600 12/08 0800 12/08 0000 12/07 1600 12/07 0800 12/07 0000 Intake Total 220 830 650 480 Output Total 1300 500 300 600 Balance -1080 330 350 -120 Intake, Blood 350 Product Intake, IV 250 Intake, Oral 220 480 400 480 Number 1 0 1 Bowel Movements Output, Urine 1300 500 300 600 Physical Exam: Well-developed well-nourished no apparent distress. HEENT: Atraumatic, extraocular motion intact Neck: Supple, no lymphadenopathy Respiratory: No respiratory distress Back: Dressing with mild amount of serosanguineous drainage noted at the mid and distal aspect. No odor. Skin is intact. No cellulitis. Dry sterile dressing and Xeroform applied Extremities: No edema, no calf pain Neuro: Alert and oriented x3 neurovascularly intact bilateral lower extremities with sensation and motor grossly intact, walking well Psych: Mood affect normal, normal memory normal judgment. Skin: Warm and dry, no rash on exposed skin Results Last 48 Hours of Labs: Laboratory Tests 12/08 12/07 0627 0830 Chemistry [id number] Pept (<125 pg/mL) 772 H Albumin (3.5 - 5.0 g/dL) 3.3 L TSH (0.270 - 4.200 uIU/mL) 0.917 Free T4 (0.78 - 2.44 ng/dL) 1.40 Coagulation PT (9.4 - 12.5 SEC) 13.0 H INR (0.90 - 1.19) 1.19 Hematology CBC w Diff NO MAN DIFF REQ WBC (4.8 - 10.8 /CUMM) 11.2 H RBC (4.20 - 5.40 /CUMM) 3.82 L Hgb (12.0 - 16.0 G/DL) 10.6 L Hct (37 - 47 %) 32.5 L MCV (81.0 - 99.0 FL) 84.8 MCH (27.0 - 31.0 PG) 27.8 MCHC (33.0 - 37.0 G/DL) 32.8 L RDW (11.5 - 14.5 %) 15.2 H Plt Count (130 - 400 /CUMM) 431 H MPV (7.4 - 10.4 FL) 7.6 Gran % (42.2 - 75.2 %) 65.2 Lymphocytes % (20.5 - 51.1 %) 18.8 L Monocytes % (1.7 - 9.3 %) 10.5 H Eosinophils % (0 - 5 %) 4.8 Basophils % (0.0 - 2.0 %) 0.7 Absolute Granulocytes (1.4 - 6.5 /CUMM) 7.3 H Absolute Lymphocytes (1.2 - 3.4 /CUMM) 2.1 Absolute Monocytes (0.10 - 0.60 /CUMM) 1.2 H Absolute Eosinophils (0.0 - 0.7 /CUMM) 0.5 Absolute Basophils (0.0 - 0.2 /CUMM) 0.1 Toxicology Vancomycin Trough (10.0 - 20.0 ug/mL) 9.5 L 12/07 12/06 0600 1135 Chemistry Sodium (137 - 145 mmol/L) 138 Potassium (3.5 - 5.1 mmol/L) 4.2 Chloride (98 - 107 mmol/L) 100 Carbon Dioxide (22 - 30 mmol/L) 30 Anion Gap (5 - 16) 7 BUN (7 - 17 mg/dL) 8 Creatinine (0.5 - 1.0 mg/dL) 0.6 Estimated GFR (>60 ml/min) > 60 BUN/Creatinine Ratio (7 - 25 %) 13.3 Coagulation PT (9.4 - 12.5 SEC) 11.7 INR (0.90 - 1.19) 1.07 Hematology CBC w Diff NO MAN DIFF REQ WBC (4.8 - 10.8 /CUMM) 10.0 RBC (4.20 - 5.40 /CUMM) 3.09 L Hgb (12.0 - 16.0 G/DL) 8.6 L Hct (37 - 47 %) 26.1 L MCV (81.0 - 99.0 FL) 84.7 MCH (27.0 - 31.0 PG) 27.8 MCHC (33.0 - 37.0 G/DL) 32.9 L RDW (11.5 - 14.5 %) 15.4 H Plt Count (130 - 400 /CUMM) 387 MPV (7.4 - 10.4 FL) 7.8 Gran % (42.2 - 75.2 %) 70.2 Lymphocytes % (20.5 - 51.1 %) 15.4 L Monocytes % (1.7 - 9.3 %) 9.5 H Eosinophils % (0 - 5 %) 4.5 Basophils % (0.0 - 2.0 %) 0.4 Absolute Granulocytes (1.4 - 6.5 /CUMM) 7.0 H Absolute Lymphocytes (1.2 - 3.4 /CUMM) 1.5 Absolute Monocytes (0.10 - 0.60 /CUMM) 1.0 H Absolute Eosinophils (0.0 - 0.7 /CUMM) 0.5 Absolute Basophils (0.0 - 0.2 /CUMM) 0 Assessment/Plan Assessment/Plan 72 F admitted with postoperative lumbar wound infection s/p laminectomy and fusion who is now POD 7 s/p lumbar wound exploration, I&D with + MRSA OR cultures, currently on vanco, rifampin and cipro Cont IV abx per ID, DC Cipro on 12/10 Pain regimen prn Coumadin per INR, 7.5MG tonight, recheck in am Lovenox 80 mg subcu twice daily for history of DVT until INR is therapeutic Daily dressing changes with xeroform and island dressing , dressing change today , monitor drainage OOB ambulation, back brace when OOB Cont TRC, encourage IS Appreciate ID, medicine involvement Acute blood loss anemia: Stabilized Flexeril for R leg pain d/w Dr. Najera, discharge pending placement, possible change in nursing facilities may be required, will discuss with case management. Possible discharge as early as this afternoon versus tomorrow. Core Measures Venous Thromboembolism VTE Risk Factors Surgery No Mechanical VTE Prophylaxis d/t N/A MechProphylax Ordered No VTE Pharm Prophylaxis d/t Surgical Contraindication
[2017-12-08] MEDS ORDERED: VANCO 1.251.25 GM/25 IV (09:39)
[2017-12-08] MEDS ORDERED: LOVENOX40 MG/0.1 SC (09:45)
--- NOTE | 2017-12-08 11:49 | PN- Pulmonary ---
Subjective HPI/Critical Care Issues: pt seen and examined improved from the respiratory perspective Objective Current Medications: Current Medications Sig/Clementine Start time Last Medication Dose Route Stop Time Status Admin Acetaminophen 500 MG Q4-6 PRN PRN 12/01 2115 AC PO Albuterol Sulfate 3 ML BID 12/06 2100 AC 12/08 INH 0928 Albuterol Sulfate 3 ML Q4-PRN PRN 11/30 1915 AC 12/06 INH 1103 Albuterol Sulfate 2 PUF Q4P PRN 11/30 1300 AC 12/05 INH 0128 Bismuth Subsalicylate 30 ML PCHS PRN 12/04 1030 AC PO Budesonide/ 2 PUF BID 11/30 2100 AC 12/08 Formoterol Fumarate INH 0759 Cetirizine HCl 10 MG DAILY 12/08 1000 AC 12/08 PO 1032 Ciprofloxacin 750 MG BID 12/02 0900 AC 12/08 PO 12/09 0859 0841 Cyclobenzaprine HCl 5 MG TIDPRN PRN 12/08 0945 AC 12/08 PO 1035 Diltiazem HCl 120 MG DAILY 12/01 09 AC 12/08 PO 0840 Docusate Sodium 100 MG BID 12/02 0900 AC 12/07 PO 2138 Enoxaparin Sodium 80 MG BID 12/07 1128 AC 12/08 SC 0840 Fluticasone 2 SPRAY DAILY 11/30 1343 AC 12/08 Propionate KIM 0800 Hydrochlorothiazide 25 MG DAILY 11/30 2145 AC 12/08 PO 0840 Hydrocodone Bitart/ 1 TAB Q4P PRN 12/01 0930 AC 12/08 Acetaminophen PO 0847 Hydrocodone Bitart/ 2 TAB Q4 HRS NEEDED PRN 12/01 0930 AC 12/08 Acetaminophen PO 0325 Insulin Aspart 0 TIDAC 12/07 1200 AC 12/08 SC 0841 Insulin Aspart 0 AT BEDTIME 11/30 2100 AC SC Lactobacillus 1 CAP BID 12/02 1018 AC 12/08 Acidophilus PO 0840 Losartan Potassium 100 MG DAILY 11/30 2144 AC 12/08 PO 0841 Melatonin 10 MG .STK-MED ONE 12/07 2140 DC PO 12/07 214 Melatonin 10 MG AT BEDTIME NEED.. 11/30 214 AC 12/07 PO 2142 Montelukast Sodium 10 MG AT BEDTIME 11/30 2100 AC 12/07 PO 2138 Morphine Sulfate 2 MG Q2P PRN 11/30 1100 AC 12/04 IV 2039 Omeprazole 40 MG DAILY AC 12/02 0739 AC 12/08 PO 0617 Ondansetron HCl 4 MG .STK-MED ONE 12/07 1719 DC IM 12/07 1720 Ondansetron HCl 4 MG Q8P PRN 11/30 1100 AC 12/08 IV 0757 Polyethylene Glycol 17 GM DAILY 11/30 1534 AC 12/08 PO 0743 Sodium Chloride 2 SPRAY Q4P PRN 11/30 1345 AC 12/08 KIM 0800 Vancomycin HCl 1,500 MG DAILY 12/08 0900 AC 12/08 Sodium Chloride 250 ML IV 1029 Vancomycin HCl 1,250 MG DAILY 12/03 0900 DC 12/07 Sodium Chloride 250 ML IV 12/08 0859 0836 Warfarin Sodium 7.5 MG COUMADIN 1700 12/08 1700 AC PO 12/08 2359 Warfarin Sodium 5 MG COUMADIN 1700 ONE 12/07 1700 DC 12/07 PO 12/07 1701 1713 Vital Signs & I&O Last 24 Hrs of Vitals and I&O: Vital Signs Date Time Temp Pulse Resp B/P B/P Pulse O2 O2 Flow FiO2 Mean Ox Delivery Rate 12/08 0932 98 Room Air 12/08 0841 77 156/76 12/08 0747 96 Room Air 12/08 0639 98.3 77 16 156/76 96 Room Air 12/07 2229 98.3 86 16 158/66 97 Room Air 12/07 2037 98 Room Air 12/07 1600 Room Air 12/07 1408 98.0 79 18 158/78 97 Room Air 12/07 1353 97.6 77 18 158/76 97 Room Air 12/07 1330 97 Room Air Intake & Output 12/08 1600 12/08 0800 12/08 0000 Intake Total 220 830 Output Total 1300 500 Balance -1080 330 Intake, Blood 350 Product Intake, Oral 220 480 Number 1 Bowel Movements Output, Urine 1300 500 Exam Other Physical Findings: [id number] head/neck-room air cvs-s1,s2 lungs-clear today abd-soft,bs+ ext-mild edema LE b/l Results Last 24 Hrs of Lab Results: Laboratory Tests 12/08/17626: PT 13.0 H, INR 1.19, CBC w Diff NO MAN DIFF REQ, RBC 3.82 L, MCV 84.8, MCH 27.8, MCHC 32.8 L, RDW 15.2 H, MPV 7.6, Gran % 65.2, Lymphocytes % 18.8 L, Monocytes % 10.5 H, Eosinophils % 4.8, Basophils % 0.7, Absolute Granulocytes 7.3 H, Absolute Lymphocytes 2.1, Absolute Monocytes 1.2 H, Absolute Eosinophils 0.5, Absolute Basophils 0.1 Impression/Plan Impression/Plan Impression/Plan: Impression 71 year old woman * extensive back surgery history with drainage * History of RUE DVT * hx of asthma * hx of MRSA pna * Anemia Plan -pain control - Incentive Spirometry -TRC/Nebs - changed to prn and BID -f/u ID, cardiology recommendations -continue symbicort -a/c on hold due to anemia and recent surgery DVT prophylaxis at all times
--- NOTE | 2017-12-08 14:56 | PN- Infect Dx ---
Subjective Subjective: Afebrile. She continues to complain of some GI discomfort. She has had formed bowel movements. She notes improvement in her respiratory status with no shortness of breath. Her back pain persists, with a mild amount of serosanguineous drainage reported at the mid and distal aspects of her incision. Objective Last 24 Hrs of Vital Signs/I&O Vital Signs Date Time Temp Pulse Resp B/P B/P Pulse O2 O2 Flow FiO2 Mean Ox Delivery Rate 12/08 0932 98 Room Air 12/08 0841 77 156/76 12/08 0747 96 Room Air 12/08 0639 98.3 77 16 156/76 96 Room Air 12/07 2229 98.3 86 16 158/66 97 Room Air 12/07 2037 98 Room Air 12/07 1600 Room Air Intake & Output 12/08 1600 12/08 0800 12/08 0000 Intake Total 650 220 830 Output Total 450 1300 500 Balance 200 -1080 330 Intake, Blood 350 Product Intake, IV 250 Intake, Oral 400 220 480 Number 2 1 Bowel Movements Output, Urine 450 1300 500 Physical Exam Other Physical Findings: She appears somewhat more comfortable in no acute distress Back dressing intact Extremities PICC in the left upper extremity with no inflammation at the site Results Last 24 Hours of Lab Results: Laboratory Tests 12/08 626 Coagulation PT (9.4 - 12.5 SEC) 13.0 H INR (0.90 - 1.19) 1.19 Hematology CBC w Diff NO MAN DIFF REQ WBC (4.8 - 10.8 /CUMM) 11.2 H RBC (4.20 - 5.40 /CUMM) 3.82 L Hgb (12.0 - 16.0 G/DL) 10.6 L Hct (37 - 47 %) 32.5 L MCV (81.0 - 99.0 FL) 84.8 MCH (27.0 - 31.0 PG) 27.8 MCHC (33.0 - 37.0 G/DL) 32.8 L RDW (11.5 - 14.5 %) 15.2 H Plt Count (130 - 400 /CUMM) 431 H MPV (7.4 - 10.4 FL) 7.6 Gran % (42.2 - 75.2 %) 65.2 Lymphocytes % (20.5 - 51.1 %) 18.8 L Monocytes % (1.7 - 9.3 %) 10.5 H Eosinophils % (0 - 5 %) 4.8 Basophils % (0.0 - 2.0 %) 0.7 Absolute Granulocytes (1.4 - 6.5 /CUMM) 7.3 H Absolute Lymphocytes (1.2 - 3.4 /CUMM) 2.1 Absolute Monocytes (0.10 - 0.60 /CUMM) 1.2 H Absolute Eosinophils (0.0 - 0.7 /CUMM) 0.5 Absolute Basophils (0.0 - 0.2 /CUMM) 0.1 Last 24 Hours of Chucky Results: No recent cultures Assessment/Plan ID Impression: Overall stable, though with persistent GI complaints, most likely secondary to one of her medications, possibly her pain meds, status post discontinuation of Rifampin 2 days ago. She remains afebrile with a slightly increased white blood cell count today, likely related to yesterday's blood transfusion, with her H&H significantly increased, on Vancomycin and Ciprofloxacin now 1 week status post I&D of a surgical site infection secondary to MRSA and coag negative Staph following an I&D 4 weeks prior to admission for a surgical site infection secondary to Klebsiella complicating a decompressive lumbar laminectomy L2-S1 3 weeks earlier. She is aware of the possibility that this infection may not clear without removal of the hardware. Suggestion: 1. Continue Vancomycin and Ciprofloxacin
[2017-12-08 22:18] VITALS: BP 150/78
[2017-12-09 07:32] VITALS: BP 166/64
[2017-12-09 08:27] LABS: PT 12.6 SEC (9.4-12.5)
--- NOTE | 2017-12-09 10:53 | PN- Medicine Consult ---
Brody HARRIS,Sadie 12/09/17 1053: Assessment/PlanMedical Consult Assessment/Plan Assessment: 72-year-old woman with multiple medical problems significant for 2 recent hospitalization status post laminectomy for spinal stenosis on 10/07/17 complicated by acute surgical blood loss anemia with bradycardia and hypotension requiring vasopressors and fluid resuscitation and right upper extremity DVT on Coumadin sent in from [facility] facility for increasing drainage from her midline surgical site. Problem list -Surgical site infection with MRSA, klebsiella -Recent laminectomy complicated with acute blood loss anemia -Diffuse abdominal pain with right leg pain -Chronic back pain status post lumbar fusion -Right upper extremity DVT on Coumadin -Zgk-ctqqehd-fdevqzelo diabetes mellitus -Osteoarthritis -GERD -COPD, not on home oxygen -History of asthma/bronchitis -Hyperlipidemia -History of TIA Recommendations -Postoperative care per primary surgical team -I&D of surgical site - MRSA in spinal and blood cultures, started on IV vancomycin and continue ciprofloxacin for Klebsiella. - Please recheck INR daily - Consider muscle relaxant for hip pain - Holding anticoagulation in the setting of surgical site optimization. Needs restarting soon. - Pain management per surgical team -Ensure DVT prophylaxis at all times Plan: as above Problem List: 1. Spinal abscess 2. Wound infection 3. Hardware complicating wound infection Subjective Subjective: seen and examined Appears much better, reports able to tolerate food well. No overnight issues. Still had some abdominal discomfort. Review of Systems Constitutional: Reports: see HPI. EENTM: Reports: see HPI. Objective Last 24 Hrs of Vital Signs/I&O Vital Signs Date Time Temp Pulse Resp B/P B/P Pulse O2 O2 Flow FiO2 Mean Ox Delivery Rate 12/09 0838 97 Room Air 12/09 0806 80 166/64 12/09 0732 97.7 80 18 166/64 95 12/08 2218 98.0 77 18 150/78 97 Room Air 12/08 1948 99 Room Air 12/08 1600 Room Air 12/08 1557 Room Air 1.5L Intake & Output 12/09 1600 12/09 0800 12/09 0000 Intake Total 200 480 Output Total 1050 750 Balance -850 -270 Intake, Oral 200 480 Number 1 Bowel Movements Output, Urine 1050 750 Physical Exam General Appearance: well developed/nourished, no apparent distress, alert, awake , comfortable Head: atraumatic, normal appearance Ears, Nose, Throat: normal pharynx, normal ENT inspection Neck: normal inspection, supple Cardiovascular: regular rate/rhythm, normal S1, S2 Respiratory: normal breath sounds, chest non-tender, no respiratory distress Peripheral Pulses: 2+ radial (R), 2+ radial (L) Abdomen: normal bowel sounds, soft, non-tender Back: dressing present with brace around in the lumbar region Extremities: normal inspection, normal capillary refill Current Medications: Current Medications Sig/Clementine Start time Last Medication Dose Route Stop Time Status Admin Acetaminophen 500 MG Q4-6 PRN PRN 12/01 2115 DCD PO Albuterol Sulfate 3 ML BID 12/06 2100 DCD 12/09 INH 0815 Albuterol Sulfate 3 ML Q4-PRN PRN 11/30 1915 DCD 12/06 INH 1103 Albuterol Sulfate 2 PUF Q4P PRN 11/30 1300 DCD 12/09 INH 1151 Bismuth Subsalicylate 30 ML PCHS PRN 12/04 1030 DCD 12/09 PO 1152 Budesonide/ 2 PUF BID 11/30 2100 DCD 12/09 Formoterol Fumarate INH 0804 Cetirizine HCl 10 MG DAILY 12/08 1000 DCD 12/09 PO 0806 Ciprofloxacin 750 MG BID 12/09 2100 DC PO 12/13 2059 Ciprofloxacin 750 MG BID 12/09 1545 DCD 12/09 PO 12/13 1534 1612 Ciprofloxacin 750 MG BID 12/02 0900 DC 12/08 PO 12/09 0859 2043 Cyclobenzaprine HCl 5 MG TIDPRN PRN 12/08 0945 DCD 12/09 PO 0942 Diltiazem HCl 120 MG DAILY 12/01 0900 DCD 12/09 PO 0806 Docusate Sodium 100 MG BID 12/02 0900 DCD 12/08 PO 2044 Fluticasone 2 SPRAY DAILY 11/30 1343 DCD 12/09 Propionate KIM 0804 Hydrochlorothiazide 25 MG DAILY 11/30 2145 DCD 12/09 PO 0806 Hydrocodone Bitart/ 1 TAB Q4P PRN 12/01 0930 DCD 12/08 Acetaminophen PO 0847 Hydrocodone Bitart/ 2 TAB Q4 HRS NEEDED PRN 12/01 0930 DCD 12/09 Acetaminophen PO 1613 Insulin Aspart 0 TIDAC 12/07 1200 DCD 12/09 SC 1151 Insulin Aspart 0 AT BEDTIME 11/30 2100 DCD SC Lactobacillus 1 CAP BID 12/02 1018 DCD 12/09 Acidophilus PO 0806 Losartan Potassium 100 MG DAILY 11/30 2144 DCD 12/09 PO 0806 Melatonin 10 MG .STK-MED ONE 12/08 2042 DC PO 12/09 2043 Melatonin 10 MG AT BEDTIME NEED.. 11/30 2144 DCD 12/08 PO 204 Montelukast Sodium 10 MG AT BEDTIME 11/30 2100 DCD 12/08 PO 204 Morphine Sulfate 2 MG Q2P PRN 11/30 1100 DCD 12/04 IV 2039 Omeprazole 40 MG DAILY AC 12/02 0739 DCD 12/09 PO 0535 Ondansetron HCl 4 MG .STK-MED ONE 12/09 0801 DC IM 12/09 0802 Ondansetron HCl 4 MG Q8P PRN 11/30 1100 DCD 12/09 IV 0805 Polyethylene Glycol 17 GM DAILY 11/30 1534 DCD 12/09 PO 0805 Sodium Chloride 2 SPRAY Q4P PRN 11/30 1345 DCD 12/09 KIM 0805 Vancomycin HCl 1,500 MG DAILY 12/08 0900 DCD 12/09 Sodium Chloride 250 ML IV 0918 Warfarin Sodium 7.5 MG COUMADIN 1700 ONE 12/09 1700 DC 12/09 PO 12/09 1701 1613 Results Last 24 Hrs Lab/Chucky Results: Laboratory Tests 12/09/17 1618: ESR Westergren Pending 12/09/17 1410: CBC w Diff NO MAN DIFF REQ, RBC 3.74 L, MCV 85.4, MCH 27.9, MCHC 32.7 L, RDW 15.2 H, MPV 7.1 L, Gran % 64.5, Lymphocytes % 17.1 L, Monocytes % 13.3 H, Eosinophils % 5.0, Basophils % 0.1, Absolute Granulocytes 6.8 H, Absolute Lymphocytes 1.8, Absolute Monocytes 1.4 H, Absolute Eosinophils 0.5, Absolute Basophils 0 12/09/17 0545: PT 12.6 H, INR 1.15 All Magana MD 12/09/17 1103: Attending MD Review Statement Attending Sign Off Attending Cosign Statement: I have: examined this patient, reviewed avalbl EMR data, discussd w/resident/PA/ [employer], discussed mgmt plan w/anna marie, discussed mgmt plan w/pt, amended to note. Other Findings: The patient was seen and discussed with the resident and nursing. Diarrhea resolved, however still with some stomach discomfort that is better post Pepto- Bismol. Anticoagulation on hold due to some bleeding from wound. Awaiting Dr. Najera input regarding potential further surgery vs STR. Patient is looking at [facility].
[2017-12-09] MEDS ORDERED: CIPROFLOXACIN750 M1 PO (14:24)
[2017-12-09 14:35] LABS: ABSOLUTE BASOPHIL COUNT 0 /CUMM (0.0-0.2); ABSOLUTE EOSINOPHIL COUNT 0.5 /CUMM (0.0-0.7); ABSOLUTE GRANULOCYTE CT 6.8 /CUMM (1.4-6.5); ABSOLUTE LYMPH COUNT 1.8 /CUMM (1.2-3.4); ABSOLUTE MONOCYTE COUNT 1.4 /CUMM (0.10-0.60); BASOPHIL % 0.1 % (0.0-2.0); GRANULOCYTE % 64.5 % (42.2-75.2); MEAN CORPUSCULAR HGB 27.9 PG (27.0-31.0); MEAN CORPUSCULAR HGB CONC 32.7 G/DL (33.0-37.0); MEAN CORPUSCULAR VOLUME 85.4 FL (81.0-99.0); MEAN PLATELET VOLUME 7.1 FL (7.4-10.4); PLATELET COUNT 455 /CUMM (130-400); RBC DISTRIBUTION WIDTH 15.2 % (11.5-14.5); RED BLOOD CELL CT 3.74 /CUMM (4.20-5.40); WHITE BLOOD CELL COUNT 10.6 /CUMM (4.8-10.8)
--- NOTE | 2017-12-09 15:32 | Event Note ---
Event Note Event Note: Discussed plan of care with Dr. Najera. Per Dr. Najera, okay to dc pt to str today. Please repeat CBC on Thursday. Discussed with Dr. Simon. Per Dr. Simon, follow CBC, ESR, Vanc trough and BUN/Cr every thursday. Pt to be continued on cipro po for one additional day, vancomycin for 6-8 weeks following most recent surgery, and coumadin for a total of three months. INR to be titrated with coumadin for target INR of 2.0-2.5. Follow up with DR. Najera early next week, thursday12/14/2017 or thursday12/15/2017
--- NOTE | 2017-12-09 15:41 | PN- Infect Dx ---
Subjective Subjective: Afebrile. She feels somewhat better with her GI symptoms improved with Pepto- Bismol. She notes continued back pain, with no drainage reported. She does not report any further shortness of breath. Objective Last 24 Hrs of Vital Signs/I&O Vital Signs Date Time Temp Pulse Resp B/P B/P Pulse O2 O2 Flow FiO2 Mean Ox Delivery Rate 12/09 0838 97 Room Air 12/09 0806 80 166/64 12/09 0732 97.7 80 18 166/64 95 12/08 2218 98.0 77 18 150/78 97 Room Air 12/08 1948 99 Room Air 12/08 1600 Room Air 12/08 1557 Room Air 1.5L Intake & Output 12/09 1600 12/09 0800 12/09 0000 Intake Total 200 480 Output Total 1050 750 Balance -850 -270 Intake, Oral 200 480 Number 1 Bowel Movements Output, Urine 1050 750 Physical Exam Other Physical Findings: She appears comfortable in no acute distress Back incision clean, with no erythema or drainage Extremities PICC in the left upper extremity with no inflammation at the site Results Last 24 Hours of Lab Results: Laboratory Tests 12/09 12/09 1410 0545 Coagulation PT (9.4 - 12.5 SEC) 12.6 H INR (0.90 - 1.19) 1.15 Hematology CBC w Diff NO MAN DIFF REQ WBC (4.8 - 10.8 /CUMM) 10.6 RBC (4.20 - 5.40 /CUMM) 3.74 L Hgb (12.0 - 16.0 G/DL) 10.5 L Hct (37 - 47 %) 32.0 L MCV (81.0 - 99.0 FL) 85.4 MCH (27.0 - 31.0 PG) 27.9 MCHC (33.0 - 37.0 G/DL) 32.7 L RDW (11.5 - 14.5 %) 15.2 H Plt Count (130 - 400 /CUMM) 455 H MPV (7.4 - 10.4 FL) 7.1 L Gran % (42.2 - 75.2 %) 64.5 Lymphocytes % (20.5 - 51.1 %) 17.1 L Monocytes % (1.7 - 9.3 %) 13.3 H Eosinophils % (0 - 5 %) 5.0 Basophils % (0.0 - 2.0 %) 0.1 Absolute Granulocytes (1.4 - 6.5 /CUMM) 6.8 H Absolute Lymphocytes (1.2 - 3.4 /CUMM) 1.8 Absolute Monocytes (0.10 - 0.60 /CUMM) 1.4 H Absolute Eosinophils (0.0 - 0.7 /CUMM) 0.5 Absolute Basophils (0.0 - 0.2 /CUMM) 0 Last 24 Hours of Chucky Results: No recent cultures Assessment/Plan ID Impression: Overall stable, with improvement in her GI symptoms and with her temperatures and white blood cell count normal, on Vancomycin and Ciprofloxacin now 8 days status post I&D of a surgical site infection secondary to MRSA and coag negative Staph following an I&D 4 weeks prior to admission for a surgical site infection secondary to Klebsiella complicating a decompressive lumbar laminectomy L2-S1 3 weeks earlier. She is aware of the possibility that this infection may not clear without removal of the hardware. Suggestion: 1. Repeat ESR today 2. Discontinue Ciprofloxacin in the a.m. 3. Continue Vancomycin to plan on a minimum of 6 weeks from her I&D (until January 12) 4. Weekly CBC, ESR, BUN/creatinine and Vancomycin trough level while on Vancomycin
[2017-12-09 16:23] VITALS: BP 166/64
--- NOTE | 2017-12-10 13:15 | PN- Orthopedic ---
Surgical Brief Attending Note Brief Attending Note: Patient seen by Dr. Najera for routine postoperative inpatient follow-up evaluation on 12/09/2017 @ 12:30 PM: David Eduardo is a 72 year old female now POD #8 S/P Lumbar surgical site (L2-S1 ) I&D with incisional margin resection and revision (12/01/2017, Dania/Ke ) whose operative cultures from that surgery were positive for MRSA from both the superficial and deep spaces. She is currently on Vanc and Cipro (only one more day of scheduled Rx for previous Cx documented infection of Klebsiella per ID recommendation). Rifampin was D/Cd by ID due to possible primary contribution to significant GI distress and her GI Sx have improved since that time (although other potential causes of her GI Sx have also been addressed). Her stomach upset, loose bowel movements have largely resolved and have certainly improved to a more tolerable level at this point. C. Diff and guiac were negative several days ago. Tests will be repeated if symptoms worsen again. Her general malaise improved considerably after transfusion with HCT now > 30 and stable. No further workup for active blood loss is necessary at this point but this does warrant intermittent monitoring in rehab and as an outpatient. Her pain remains adequately controlled on standard oral pain meds and in fact continues to improve even as her mobility increases. She iis only requiring intermittent pain medication at this time and is tolerating this with good coverage of symptoms. She has very poor venous access. PICC line is functioning normally. PO intake is improving slowly as GI distress and malaise have decreased. Hip and groin region pain and tenderness seems to have improved and nearly resolved. Report of dressing changes over the last 24 hours suggests that drainage has significantly decreased to a minimal level with no concerning discoloration or other feature. Therefore it is reasonable to restart oral anticoagulation. Given patient's hypersensitivity to non-Coumadin Rx thus far (predisposing her to complications) and predictable (albeit slow) response to Coumadin along with the fact that Doppler is now negative in the area of previous UE DVT with the PICC changed to the opposite arm, I have recommended that she be on Coumadin only and that her dose be titrated to target INR 2-2.5 at a rate similar to patients being treated with prophylactic post-surgical regimens. She understands and accepts the risk of DVT, PE and associated complications but also accepts that this is likely outweighed by the risk of lumbar surgical site hemmorhage in her particular case. She will not be given Lovenox or any other "bridge". Should there be any concerns during outpatient follow-up by the medical and/or vascular teams, I would certainly strongly consider their recommendations but have requested that they contact me directly before changing her anticoagulant treatment. HCT stable >30. AVSS. She is awake, alert and conversational. She is sitting in a recliner and appears comfortable reading. She is able to elevate from the recliner and transfer to bed independently with only minimal walker support and no pain. Dressing checked. Only very minimal drainage in the middle of her incision ( above the previous dehiscence site) over more than 12 hours since last change. Serosanguinous. No discoloration. No purulence. Nothing expressible. She is neurovascularly intact. No calf or thigh tenderness. No DVT symptom or sign in any extremity. Hip ROM unchanged and not significantly painful or limiting. Mobilizing and ambulating comfortably. Patient's post-I&D condition appears to have stabilized adequately for her to safely be transferred to and cared for at inpatient rehab. She has chosen a new facility and D/C arrangements have been made. Plan: Dressing change bid until dry x 2 then qd Continue to mobilize and progress with PT. Ambulate with walker and progress to home independence status per rehab protocols. Brace when OOB. Vanc and lab monitoring per ID recommendations. Recheck H/H Thursday, Thursday, Thursday until stable and call office with results. Resatart Coumadin 7.5 load tonight and 5 mg q5 PM theerafter. Titrate per protocol with INR target 2-2.5. Call office with INR results. Follow-up with Dr. Najera Thursday
== END 2017-12-09 17:05 | DRG 857 ==
LOC: ERH 09:10 → ERHI 11:45 → 2NB 11:45 → ENTRNSPT 12:12 → EDTRNSPTSTS 12:32 → EDTRNSPT 12:32 → 2NB 12:35 → CMPTRNSPT 12:55 → ENTRNSPT 12-01 21:54 → EDTRNSPTSTS 12-01 21:56 → CMPTRNSPT 12-01 22:24 → ENPENDDIS 12-09 14:33 → ENTRNSPT 12-09 16:57 → EDTRNSPT 12-09 17:02 → EDTRNSPTSTS 12-09 17:02 → 2NB 12-09 17:05 → CMPTRNSPT 12-09 17:13
PROVIDERS: Nurse Practitioner; Orthopaedic Surgery Orthopaedic Surgery of the Spine; Physician Assistant; Physician Assistant Surgical
PROC: 0KBG0ZZ Excision of Left Trunk Muscle, Open Approach (ICD-10-PCS; principal; 2017-12-01)
PROC: 0KBF0ZZ Excision of Right Trunk Muscle, Open Approach (ICD-10-PCS; 2017-12-01)
PROC: 0QB00ZZ Excision of Lumbar Vertebra, Open Approach (ICD-10-PCS; 2017-12-01)
PROC: 0JX70ZZ Transfer Back Subcutaneous Tissue and Fascia, Open Approach (ICD-10-PCS; 2017-12-01)
PROC: 30233K1 Transfusion of Nonautologous Frozen Plasma into Peripheral Vein, Percutaneous Approach (ICD-10-PCS; 2017-12-01)
PROC: 30233N1 Transfusion of Nonautologous Red Blood Cells into Peripheral Vein, Percutaneous Approach (ICD-10-PCS; 2017-12-05)
DX: T81.4XXA Infection following a procedure, initial encounter (principal); T81.31XA Disruption of external operation (surgical) wound, not elsewhere classified, initial encounter; L02.212 Cutaneous abscess of back [any part, except buttock and flank]; M48.56XA Collapsed vertebra, not elsewhere classified, lumbar region, initial encounter for fracture; D62 Acute posthemorrhagic anemia; I97.89 Other postprocedural complications and disorders of the circulatory system, not elsewhere classified; R00.1 Bradycardia, unspecified; L08.9 Local infection of the skin and subcutaneous tissue, unspecified; J45.909 Unspecified asthma, uncomplicated; E66.9 Obesity, unspecified; Z68.36 Body mass index [BMI] 36.0-36.9, adult; Z98.1 Arthrodesis status; Z88.6 Allergy status to analgesic agent; Z88.0 Allergy status to penicillin; Z88.2 Allergy status to sulfonamides; Z88.8 Allergy status to other drugs, medicaments and biological substances; Z86.718 Personal history of other venous thrombosis and embolism; B95.62 Methicillin resistant Staphylococcus aureus infection as the cause of diseases classified elsewhere; R79.1 Abnormal coagulation profile; J44.9 Chronic obstructive pulmonary disease, unspecified; E11.51 Type 2 diabetes mellitus with diabetic peripheral angiopathy without gangrene; Z79.4 Long term (current) use of insulin; E11.9 Type 2 diabetes mellitus without complications; Z79.84 Long term (current) use of oral hypoglycemic drugs; I10 Essential (primary) hypertension; K21.9 Gastro-esophageal reflux disease without esophagitis; I95.81 Postprocedural hypotension; Z79.01 Long term (current) use of anticoagulants
CPT/HCPCS: 2NBP; 87070; 87075; 87184; 36415; 36592; 71045; 71046; 72100; 82436; 86920; 87086; 87147; 93005; 93010; 93970; 96374; 97110-GO; 97116-GO; 97161-GP; 97530-GO; J0131; J0694; J1100; J1644; J1650; J1815; J2405; J2997; J3370; J3490; J7040; J7042; P9016

== ENCOUNTER 2017-12-25 07:43 | Inpatient (IN) | payer OTHER, MEDICARE ==
[~2017-12-25] VITALS: Ht 149.9 cm; Wt 80.1 kg
[~2017-12-25 07:43] MED LIST changes: +ACIDOPHILUS1 EACH PO; -CARTIA XT120 M1 PO; +CARTIA XT300 M1 PO; +CIPROFLOXACIN750 M1 PO; +DOCUSATE SODIU100 M3 PO; +FERROUS SULFAT325 M3 PO; +LOVENOX40 MG/0.1 SC; -MELATONIN10 M5 PO; +RIFAMPIN300 M1 PO; +SENNA S TABLET1 EACH PO; +VANCO 1.251.25 GM/25 IV; +ZOFRAN4 M2 PO
--- NOTE | 2017-12-25 08:31 | ED GENERAL ADULT ---
History of Present Illness General Chief Complaint: General Adult Stated Complaint: SENT BY [facility] FOR ADMISSION Source: patient Exam Limitations: no limitations Vital Signs & Intake/Output Vital Signs & Intake/Output Vital Signs Date Time Temp Pulse Resp B/P B/P Pulse O2 O2 Flow FiO2 Mean Ox Delivery Rate 12/26 1600 100 Nasal 2.0L Cannula 12/26 1600 98.0 85 22 172/60 100 Nasal 2.0L Cannula 12/26 1200 Nasal 2.0L Cannula 12/26 1200 97.9 89 20 150/58 98 Nasal 2.0L Cannula 12/26 0918 93 170/66 12/26 0800 Nasal 2.0L Cannula 12/26 0800 97.8 83 18 160/60 100 Nasal 2.0L Cannula 12/26 0400 100 Nasal 3.0L Cannula 12/26 0000 100 Nasal 3.0L Cannula 12/26 0000 96.9 88 20 172/66 100 Nasal 3.0L Cannula ED Intake and Output 12/26 0000 12/25 1200 Intake Total 2114 Output Total 1280 Balance 834 Intake, Blood 314 Product Intake, IV 1800 Intake, Oral 0 Number 0 Bowel Movements Output, 130 Drainage Output, Other 1000 Output, Urine 150 Patient 173 lb 173 lb Weight Weight Reported by Patient Measurement Method Allergies Coded Allergies: Sulfa (Sulfonamide Antibiotics) (Intermediate, SKIN TURNS PURPLE/HOT 10/28/17) Penicillins (Mild, ITCHING 10/28/17) aspirin (HX GASTRITIS 10/28/17) ASA->BLEEDING atorvastatin (PER PT MED LIST 10/28/17) prednisone (Severe, VISION CHANGES 10/28/17) Uncoded Allergies: ENVIRONMENTAL (UNKNOWN 07/20/13) MULTIPLE ANTIBIOTICS (UNKNOWN 07/20/13) Reconcile Medications Albuterol Sulfate (Proair Hfa) 90 MCG HFA.AER.AD 2 PUF INH PRN ASTHMA/ ALLERGIES (Reported) Ascorbate Calcium (Vitamin C) 500 MG TABLET 1 TAB PO DAILY SUPPLEMENT ( Reported) Azelastine/Fluticasone (Dymista Nasal [place]) 137 MCG-50 MCG/SPRAY SPRAY.PUMP 1 SPRAY NASB PRN ALLERGIES (Reported) Budesonide/Formoterol Fumarate (Symbicort 160-4.5 Mcg Inhaler) 160 MCG-4.5 MCG/ ACTUATION HFA.AER.AD 2 PUFF INH BID ASTHMA/ALLERGIES (Reported) Cetirizine HCl (Zyrtec) 10 MG CAPSULE 1 CAP PO DAILY ALLERGIES (Reported) Cholecalciferol (Vitamin D3) (Vitamin D) 1,000 UNIT TABLET 1 TAB PO DAILY SUPPLEMENT (Reported) Cyclobenzaprine HCl 5 MG TABLET 1 TAB PO QPMP PRN MUSCLE SPASMS (Reported) Diltiazem HCl (Cartia Xt) 300 MG CAP.ER.24H 1 CAP PO DAILY HEART (Reported) Ferrous Sulfate 325 MG (65 MG IRON) TABLET 1 TAB PO DAILY IRON, VITAMIN ( Reported) Glimepiride 2 MG TABLET 1.5 TAB PO DAILY DM (Reported) Hydrocodone/Acetaminophen (Hydrocodon-Acetaminophen 5-325) 5 MG-325 MG TABLET 1 TAB PO Q4 HRS NEEDED PRN PAIN SCALE 4-6 (MODERATE) Lactobacillus Acidophilus (Acidophilus) 1 EACH CAPSULE 1 CAP PO DAILY GI ( Reported) Losartan/Hydrochlorothiazide (Losartan-Hctz 100-25 MG Tab) 100 MG-25 MG TABLET 1 TAB PO DAILY HTN (Reported) Melatonin 3 MG TABLET 3 TAB PO QPM SLEEP (Reported) Montelukast Sodium (Singulair) 10 MG TABLET 1 TAB PO DAILY ALLERGIES ( Reported) Multiple Vitamin (Multivitamins) 1 EACH TABLET 1 TAB PO DAILY SUPPLEMENT ( Reported) Multivit-Min/FA/Lutein/Zeaxant (Macular Vitamin Tablet) 500 MCG-5 MG-1 MG TABLET 1 TAB PO DAILY SUPPLEMENT (Reported) Omeprazole 40 MG CAPSULE.DR 1 CAP PO DAILY AC GERD (Reported) Ondansetron HCl (Zofran) 4 MG TABLET 1 TAB PO TID PRN NAUSEA/VOMITING ( Reported) Rosuvastatin Calcium (Crestor) 20 MG TABLET 1 TAB PO DAILY CHOLESTEROL ( Reported) Sitagliptin Phosphate (Januvia) 100 MG TABLET 1 TAB PO DAILY DM (Reported) Vancomycin/0.9 % Sod Chloride (Vanco 1.25 Gm/250 Ml-0.9% NaCl) 1.25 GRAM/250 ML PLAST..BAG 1.5 GM IV DAILY INFECTION CONTINUE FOR 6-[address] TINSLEY Warfarin Sodium 5 MG TABLET 1 TAB PO SuMoWeFrSa BLOOD THINNER (Reported) Warfarin Sodium 7.5 MG TABLET 1 TAB PO TuTh BLOOD THINNER (Reported) Triage Note: 72F RETURNS TO ED FOR POSSIBLE ADMISSION DUE TO WOUND DRAINAGE FROM LAMINECTOMY SITE, ADMITTED PREVIOUSLY FOR SAME. ARRIVES W LEFT ARM PICC LINE STATES SHE RECEIVED VANCO INFUSIONS DAILY. REPORTS THE DRAINAGE IS NOT WORSE THAN USUAL, IT JUST HAS NOT STOPPED OR IMPROVED. DENIES BLOOD TO DISCHARGE, STATES IT IS MOSTLY YELLOW. AFEBRILE. Triage Nurses Notes Reviewed? yes HPI: Patient presents for evaluation of delayed wound healing status post lumbar fixation surgery. The patient has had repeated follow-up visits with her spine surgeon for wound debridements. She had another evaluation today the patient was asked to go to the emergency department for evaluation of possible subsequent admission/surgery. The patient denies any fever, chills, chest pain or shortness of breath.. Past History Travel History Traveled to [place] past 21 day No Medical History Any Pertinent Medical History? 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 No Review of Systems Review of Systems Constitutional: Reports: no symptoms. EENTM: Reports: no symptoms. Respiratory: Reports: no symptoms. Cardiovascular: Reports: no symptoms. GI: Reports: no symptoms. Genitourinary: Reports: no symptoms. Musculoskeletal: Reports: no symptoms. Skin: Reports: see HPI. Neurological/Psychological: Reports: no symptoms. Hematologic/Endocrine: Reports: no symptoms. Immunologic/Allergic: Reports: no symptoms. All Other Systems: Reviewed and Negative Physical Exam Physical Exam General Appearance: see below Comments: Gen.: Well-nourished, well-developed, no acute respiratory distress. Head: Normocephalic, atraumatic. Eyes: Normal inspection bilaterally Ears: Normal inspection bilaterally Nose: Normal inspection Throat/mouth : Moist mucosa Neck: Supple, full range of motion, no goiter Lungs: Quiet respirations Back: Surgical wound with Steri-Strips without apparent drainage or surrounding erythema Extremities: Normal range of motion grossly, no cyanosis clubbing or edema of the upper extremities Neurologic: Cranial nerves grossly intact, speech is clear Skin: warm and dry Psychiatric: Calm, cooperative, no apparent delusions or hallucinations Core Measures ACS in differential dx? No CVA/TIA Diagnosis: No Sepsis Present: No Sepsis Focused Exam Completed? No Progress Differential Diagnoses I considered the following diagnoses in my evaluation of the patient: Wound dehiscence, wound infection, osteomyelitis, hardware failure Plan of Care: Orders Procedure Date/time Status Consistent Carbohydrate 3 12/26 B Active Wound Care/Dressing 12/26 1519 Active Drains/Tubes 12/26 1519 Active PROTHROMBIN TIME 12/26 0400 Complete ICU LAB BUNDLE 12/26 0400 Complete CBC WITHOUT DIFFERENTIAL 12/26 0400 Complete Discontinue Nursing Interventi 12/26 UNK Complete Castillo, Insertion/Removal/Asses 12/26 UNK Active MISSING MEDICATION FORM 12/26 UNK Active VRE ACTIVE SURVIELLANCE 12/25 2356 Active ACTIVE SURVEILLANCE NARES 12/25 2356 Active BLOOD PRODUCT PICKUP 12/25 2034 Active LEUKOCYTE POOR (PACKED CELLS) 12/25 2034 Active BLOOD PRODUCT PICKUP 12/25 2009 Active TRUNK AREA OR SPEC 12/25 1951 Active TRUNK AREA OR SPEC 12/25 1950 Active CBC WITHOUT DIFFERENTIAL 12/25 1950 Complete TRUNK AREA OR SPEC 12/25 1947 Active TRUNK AREA OR SPEC 12/25 1946 Active TRUNK AREA OR SPEC 12/25 194 Active THERAPIST ORDERS 12/25 UNK Complete Transfer patient to 12/25 UNK Active Precautions 12/25 UNK Active FingerStick- Glucose 12/25 UNK Complete Current Medications Sig/Clementine Start time Last Medication Dose Stop Time Status Admin Melatonin 9 MG QPM 12/26 2100 AC (Melatonin) Artificial Tears 2 GTT TID 12/26 1723 UNVr (Tears Natural) Rosuvastatin Calcium 20 MG 1700 12/26 1700 AC (Crestor) Morphine Sulfate 2 MG Q6P PRN 12/26 1600 AC 12/26 (MORPHINE SULFATE) 1604 Ascorbic Acid 500 MG DAILY 12/26 0900 CAN (Vitamin C) Ascorbic Acid 500 MG DAILY 12/26 0900 AC 12/26 (Vitamin C) 0918 Budesonide/ 2 PUF BID 12/26 0900 AC 12/26 Formoterol Fumarate 0923 (Symbicort) Cholecalciferol 1,000 IU DAILY 12/26 09 CAN (Vitamin D) Cholecalciferol 1,000 IU DAILY 12/26 0900 AC 12/26 (Vitamin D) 0918 Diltiazem HCl 300 MG DAILY 12/26 09 CAN (Cardizem CD) Diltiazem HCl 300 MG DAILY 12/26 0900 AC 12/26 (Cardizem CD) 0918 Hydrochlorothiazide 25 MG DAILY 12/26 0900 AC 12/26 (Hydrodiuril) 1030 Loratadine 10 MG DAILY 12/26 0900 CAN (Claritin) Loratadine 10 MG DAILY 12/26 0900 AC 12/26 (Claritin) 0918 Losartan Potassium 100 MG DAILY 12/26 09 CAN (Cozaar) Losartan Potassium 100 MG DAILY 12/26 0900 AC 12/26 (Cozaar) 0918 Montelukast Sodium 10 MG DAILY 12/26 09 CAN (Singulair) Montelukast Sodium 10 MG DAILY 12/26 0900 AC 12/26 (Singulair) 0918 Vancomycin HCl 1,500 MG DAILY 12/26 0900 AC 12/26 Sodium Chloride 250 ML 0944 (Normal Saline 0.9%) Insulin Aspart 0 TIDAC 12/26 0800 AC 12/26 (NovoLOG) 1220 Insulin Human Regular 0 TIDAC/HS 12/26 08 CAN (NovoLIN R) Omeprazole 40 MG DAILY AC 12/26 07 CAN (Prilosec) Omeprazole 40 MG DAILY AC 12/26 0700 AC 12/26 (Prilosec) 0627 Heparin Sodium 5,000 UNIT Q8 12/26 0600 AC 12/26 (Porcine) 1454 Acetaminophen 1,000 MG Q6P PRN 12/25 2315 AC 12/26 (Ofirmev) 0918 N/A 1 UNIT (No Carrier) Hydromorphone HCl 0.5 MG Q4P PRN 12/25 2314 AC (Dilaudid) Laboratory Tests 12/26/17 0520: Anion Gap 9, Estimated GFR > 60, Glucose 156 H, Calcium 8.0 L, Phosphorus 4.1, Magnesium 1.2 L, Total Bilirubin 0.3, AST 24, ALT 34, Albumin 2.9 L, PT 14.8 H, INR 1.35 H, CBC w Diff NO MAN DIFF REQ, RBC 3.61 L, MCV 83.8, MCH 27.6, MCHC 33.0, RDW 14.9 H, MPV 8.5, Gran % 73.2, Lymphocytes % 13.5 L, Monocytes % 12.3 H, Eosinophils % 0.7, Basophils % 0.3, Absolute Granulocytes 9.2 H, Absolute Lymphocytes 1.7, Absolute Monocytes 1.5 H, Absolute Eosinophils 0.1, Absolute Basophils 0 12/25/17 1950: CBC w Diff NO MAN DIFF REQ, RBC 2.92 L, MCV 81.7, MCH 26.8 L, MCHC 32.7 L, RDW 14.7 H, MPV 7.8, Gran % 70.7, Lymphocytes % 15.8 L, Monocytes % 10.1 H, Eosinophils % 3.1, Basophils % 0.3, Absolute Granulocytes 6.8 H, Absolute Lymphocytes 1.5, Absolute Monocytes 1.0 H, Absolute Eosinophils 0.3, Absolute Basophils 0 Microbiology 12/26 0000 UPPER RESP: Surveillance Culture - COLB 12/26 0000 GI: Surveillance Culture - COLB 12/25 2213 TRUNK/O.R.: Culture & Sensitivity - CAN Cancelled: DUPLICATED 12/25 2213 TRUNK/O.R.: Gram Stain - CAN Cancelled: DUPLICATED 12/25 2212 TRUNK/O.R.: Culture & Sensitivity - CAN Cancelled: DUPLICATED 12/25 2212 TRUNK/O.R.: Gram Stain - CAN Cancelled: DUPLICATED 12/25 2210 TRUNK/O.R.: Culture & Sensitivity - CAN Cancelled: DUPLICATED 12/25 2210 TRUNK/O.R.: Gram Stain - CAN Cancelled: DUPLICATED 12/25 2209 TRUNK/O.R.: Culture & Sensitivity - CAN Cancelled: DUPLICATED 12/25 2209 TRUNK/O.R.: Gram Stain - CAN Cancelled: DUPLICATED 12/26 2203 TRUNK/O.R.: Culture & Sensitivity - CAN Cancelled: DUPLICATED 12/26 2203 TRUNK/O.R.: Gram Stain - CAN Cancelled: DUPLICATED 12/25 2149 TRUNK/O.R.: Culture & Sensitivity - RES 12/25 2149 TRUNK/O.R.: Gram Stain - RES 12/25 2029 TRUNK/O.R.: Culture & Sensitivity - RES 12/25 2029 TRUNK/O.R.: Gram Stain - RES 12/26 1999 TRUNK/O.R.: Culture & Sensitivity - RES 12/26 1999 TRUNK/O.R.: Gram Stain - RES 12/26 1999 TRUNK/O.R.: Culture & Sensitivity - RES 12/26 1999 TRUNK/O.R.: Gram Stain - RES 12/26 1999 TRUNK/O.R.: Culture & Sensitivity - RES 12/26 1999 TRUNK/O.R.: Gram Stain - RES Initial ED EKG: none Comments: 12/25/2017 9:38:17 AM I have discussed this patient's case with Dr. Najera. He has already notified the surgical PA for admission. Departure Departure Disposition: STILL A PATIENT Condition: Stable Clinical Impression Primary Impression: Surgical wound dehiscence Qualifiers: Encounter type: initial encounter Qualified Code: T81.31XA - Disruption of external operation (surgical) wound, not elsewhere classified, initial encounter Referrals: Radha HARRIS,Flavio Chaudhry (PCP/Family) Departure Forms: Customer Survey General Discharge Information Admission Note Spoke With: Dania HARRIS,Ray Deanna Documentation of Exam: Documentation of any treatments & extenuating circumstances including Concerns Regarding Discharge (functional status, medication knowledge or non-compliance, living conditions, etc.) that warrant an admission rather than observation: Patient presents for evaluation of a chronic wound dehiscence status post lumbar fusion surgery. The patient has failed weeks of outpatient management and has a persistent surgical wound. This places her at higher risk of cellulitis, deep tissue space infection, abscess spinal osteomyelitis and infection of her surgical hardware. This patient now requires a more aggressive management with surgical wound debridement and consideration of removal of hardware to patient's ability to heal and to avoid secondary hardware infection. Given this patient's advanced age and medical comorbidities her treatment and recovery will likely be prolonged and complicated. I feel she will require a multiple day hospitalization. Critical Care Note Critical Care Note Critical Care Time: non-applicable
[2017-12-25] MEDS ORDERED: CRESTOR20 M2 PO (08:54)
[2017-12-25] MEDS ORDERED: WARFARIN SODIU7.5 M1 PO (08:57)
[2017-12-25] MEDS ORDERED: WARFARIN SODIUM5 M1 PO (08:57)
[2017-12-25 09:24] LABS: ABSOLUTE BASOPHIL COUNT 0.1 /CUMM (0.0-0.2); ABSOLUTE EOSINOPHIL COUNT 0.4 /CUMM (0.0-0.7); ABSOLUTE GRANULOCYTE CT 11.5 /CUMM (1.4-6.5); ABSOLUTE LYMPH COUNT 1.7 /CUMM (1.2-3.4); ABSOLUTE MONOCYTE COUNT 1.3 /CUMM (0.10-0.60); BASOPHIL % 0.5 % (0.0-2.0); EOSINOPHIL % 2.4 % (0-5); GRANULOCYTE % 77.3 % (42.2-75.2); HEMATOCRIT 36.8 % (37-47); MEAN CORPUSCULAR HGB 27.3 PG (27.0-31.0); MEAN CORPUSCULAR VOLUME 82.6 FL (81.0-99.0); MEAN PLATELET VOLUME 8.4 FL (7.4-10.4); PLATELET COUNT 328 /CUMM (130-400); RED BLOOD CELL CT 4.46 /CUMM (4.20-5.40); WHITE BLOOD CELL COUNT 14.8 /CUMM (4.8-10.8)
[2017-12-25 09:30] LABS: PT 18.7 SEC (9.4-12.5)
--- NOTE | 2017-12-25 10:27 | Admission Core Measures ---
Acute Coronary Syndrome (CM) ACS Core Measures Acute Coronary Syndrome Diagnosis No Congestive Heart Failure (NEW) CHF Core Measures Congestive Heart Failure Diagnosis No Cerebrovascular Accident CVA Core Measures CVA/TIA Diagnosis No Venous Thromboembolism VTE Core Barbara (View Protocol) VTE Risk Factors Age>40 No Mechanical VTE Prophylaxis d/t N/A MechProphylax Ordered No VTE Pharm Prophylaxis d/t Surgical Contraindication Problem List As ranked by this Provider includes Assessment & Plan 1. Surgical wound infection HOME MEDS Home Med List Albuterol Sulfate (Proair Hfa) 90 MCG HFA.AER.AD 2 PUF INH PRN ASTHMA/ ALLERGIES (Reported) Ascorbate Calcium (Vitamin C) 500 MG TABLET 1 TAB PO DAILY SUPPLEMENT ( Reported) Azelastine/Fluticasone (Dymista Nasal [place]) 137 MCG-50 MCG/SPRAY SPRAY.PUMP 1 SPRAY NASB PRN ALLERGIES (Reported) Budesonide/Formoterol Fumarate (Symbicort 160-4.5 Mcg Inhaler) 160 MCG-4.5 MCG/ ACTUATION HFA.AER.AD 2 PUFF INH BID ASTHMA/ALLERGIES (Reported) Cetirizine HCl (Zyrtec) 10 MG CAPSULE 1 CAP PO DAILY ALLERGIES (Reported) Cholecalciferol (Vitamin D3) (Vitamin D) 1,000 UNIT TABLET 1 TAB PO DAILY SUPPLEMENT (Reported) Cyclobenzaprine HCl 5 MG TABLET 1 TAB PO QPMP PRN MUSCLE SPASMS (Reported) Diltiazem HCl (Cartia Xt) 300 MG CAP.ER.24H 1 CAP PO DAILY HEART (Reported) Ferrous Sulfate 325 MG (65 MG IRON) TABLET 1 TAB PO DAILY IRON, VITAMIN ( Reported) Glimepiride 2 MG TABLET 1.5 TAB PO DAILY DM (Reported) Hydrocodone/Acetaminophen (Hydrocodon-Acetaminophen 5-325) 5 MG-325 MG TABLET 1 TAB PO Q4 HRS NEEDED PRN PAIN SCALE 4-6 (MODERATE) Lactobacillus Acidophilus (Acidophilus) 1 EACH CAPSULE 1 CAP PO DAILY GI ( Reported) Losartan/Hydrochlorothiazide (Losartan-Hctz 100-25 MG Tab) 100 MG-25 MG TABLET 1 TAB PO DAILY HTN (Reported) Melatonin 3 MG TABLET 3 TAB PO QPM SLEEP (Reported) Montelukast Sodium (Singulair) 10 MG TABLET 1 TAB PO DAILY ALLERGIES ( Reported) Multiple Vitamin (Multivitamins) 1 EACH TABLET 1 TAB PO DAILY SUPPLEMENT ( Reported) Multivit-Min/FA/Lutein/Zeaxant (Macular Vitamin Tablet) 500 MCG-5 MG-1 MG TABLET 1 TAB PO DAILY SUPPLEMENT (Reported) Omeprazole 40 MG CAPSULE.DR 1 CAP PO DAILY AC GERD (Reported) Ondansetron HCl (Zofran) 4 MG TABLET 1 TAB PO TID PRN NAUSEA/VOMITING ( Reported) Rosuvastatin Calcium (Crestor) 20 MG TABLET 1 TAB PO DAILY CHOLESTEROL ( Reported) Sitagliptin Phosphate (Januvia) 100 MG TABLET 1 TAB PO DAILY DM (Reported) Vancomycin/0.9 % Sod Chloride (Vanco 1.25 Gm/250 Ml-0.9% NaCl) 1.25 GRAM/250 ML PLAST..BAG 1.5 GM IV DAILY INFECTION Warfarin Sodium 5 MG TABLET 1 TAB PO SuMoWeFrSa BLOOD THINNER (Reported) Warfarin Sodium 7.5 MG TABLET 1 TAB PO TuTh BLOOD THINNER (Reported)
--- NOTE | 2017-12-25 10:51 | RADIOLOGY REPORT ---
EXAMINATION: XR LUMBOSACRAL SPINE CLINICAL INFORMATION: Status post lumbar fusion with wound dehiscence COMPARISON: CT lumbar spine dated 12/01/2017 x-ray lumbar spine dated 11/30/2017 TECHNIQUE: AP and lateral views FINDINGS: Status post posterior fusion with vertical rods and pedicle screws noted from L2 to S1 level. Interbody fusion noted again. Surgical hardware appears intact. Decrease intervertebral body height has remained stable compared to the prior CT and plain radiographs. Stable grade 1 retrolisthesis at L2-L3 level. No acute or interval osseous abnormality identified. Hypertrophic changes and heterotopic ossification noted lateral to the vertebral bodies. Visualized posterior soft tissues demonstrate small air bubble which may be related to recent wound dehiscence. There is any clinical concern for abscess formation. Further assessment with contrast-enhanced CT or MRI may be of greater value. IMPRESSION: 1. No acute osseous abnormality. Stable postoperative changes. 2. Subtle focus of air bubble noted in the posterior soft tissues representing an interval change. If there is clinical concern for abscess formation, further assessment with contrast-enhanced CT or MRI may be of greater value.
--- NOTE | 2017-12-25 11:04 | History & Physical Pre-Op ---
General Information and HPI MD Statement: I have seen and personally examined TAMMY EDUARDO and documented this H&P. The patient is a 72 year old F who presented with a patient stated chief complaint of [persistent lumbar wound drainage]. Source of Information: patient, family Exam Limitations: no limitations History of Present Illness: 72-year-old woman with past medical history of TIA, hyperlipidemia, hypertension , asthma, bronchitis, COPD, MRSA, GERD, OA, chronic back pain status post spinal fusion, [id number] diabetes mellitus, and upper extremity DVT on Coumadin sent in by her orthopedic surgeon Ray Najera MD for persistent lumbar wound drainage status post spinal fusion. She has been treated over the past few weeks for this known lumbar wound drainage has not quiesced she is here today for admission and plans to take her to the operating room this afternoon for irrigation and debridement of this lumbar wound with removal of hardware. Allergies/Medications Allergies: Coded Allergies: Sulfa (Sulfonamide Antibiotics) (Intermediate, SKIN TURNS PURPLE/HOT 10/28/17) Penicillins (Mild, ITCHING 10/28/17) aspirin (HX GASTRITIS 10/28/17) ASA->BLEEDING atorvastatin (PER PT MED LIST 10/28/17) prednisone (Severe, VISION CHANGES 10/28/17) Uncoded Allergies: ENVIRONMENTAL (UNKNOWN 07/20/13) MULTIPLE ANTIBIOTICS (UNKNOWN 07/20/13) Home Med list Albuterol Sulfate (Proair Hfa) 90 MCG HFA.AER.AD 2 PUF INH PRN ASTHMA/ ALLERGIES (Reported) Ascorbate Calcium (Vitamin C) 500 MG TABLET 1 TAB PO DAILY SUPPLEMENT ( Reported) Azelastine/Fluticasone (Dymista Nasal Castell) 137 MCG-50 MCG/SPRAY SPRAY.PUMP 1 SPRAY NASB PRN ALLERGIES (Reported) Budesonide/Formoterol Fumarate (Symbicort 160-4.5 Mcg Inhaler) 160 MCG-4.5 MCG/ ACTUATION HFA.AER.AD 2 PUFF INH BID ASTHMA/ALLERGIES (Reported) Cetirizine HCl (Zyrtec) 10 MG CAPSULE 1 CAP PO DAILY ALLERGIES (Reported) Cholecalciferol (Vitamin D3) (Vitamin D) 1,000 UNIT TABLET 1 TAB PO DAILY SUPPLEMENT (Reported) Cyclobenzaprine HCl 5 MG TABLET 1 TAB PO QPMP PRN MUSCLE SPASMS (Reported) Diltiazem HCl (Cartia Xt) 300 MG CAP.ER.24H 1 CAP PO DAILY HEART (Reported) Ferrous Sulfate 325 MG (65 MG IRON) TABLET 1 TAB PO DAILY IRON, VITAMIN ( Reported) Glimepiride 2 MG TABLET 1.5 TAB PO DAILY DM (Reported) Hydrocodone/Acetaminophen (Hydrocodon-Acetaminophen 5-325) 5 MG-325 MG TABLET 1 TAB PO Q4 HRS NEEDED PRN PAIN SCALE 4-6 (MODERATE) Lactobacillus Acidophilus (Acidophilus) 1 EACH CAPSULE 1 CAP PO DAILY GI ( Reported) Losartan/Hydrochlorothiazide (Losartan-Hctz 100-25 MG Tab) 100 MG-25 MG TABLET 1 TAB PO DAILY HTN (Reported) Melatonin 3 MG TABLET 3 TAB PO QPM SLEEP (Reported) Montelukast Sodium (Singulair) 10 MG TABLET 1 TAB PO DAILY ALLERGIES ( Reported) Multiple Vitamin (Multivitamins) 1 EACH TABLET 1 TAB PO DAILY SUPPLEMENT ( Reported) Multivit-Min/FA/Lutein/Zeaxant (Macular Vitamin Tablet) 500 MCG-5 MG-1 MG TABLET 1 TAB PO DAILY SUPPLEMENT (Reported) Omeprazole 40 MG CAPSULE. 1 CAP PO DAILY AC GERD (Reported) Ondansetron HCl (Zofran) 4 MG TABLET 1 TAB PO TID PRN NAUSEA/VOMITING ( Reported) Rosuvastatin Calcium (Crestor) 20 MG TABLET 1 TAB PO DAILY CHOLESTEROL ( Reported) Sitagliptin Phosphate (Januvia) 100 MG TABLET 1 TAB PO DAILY DM (Reported) Vancomycin/0.9 % Sod Chloride (Vanco 1.25 Gm/250 Ml-0.9% NaCl) 1.25 GRAM/250 ML PLAST..BAG 1.5 GM IV DAILY INFECTION CONTINUE FOR 6-[address] TINSLEY Warfarin Sodium 5 MG TABLET 1 TAB PO SuMoWeFrSa BLOOD THINNER (Reported) Warfarin Sodium 7.5 MG TABLET 1 TAB PO TuTh BLOOD THINNER (Reported) Past History Medical History Neurological: TIA EENT: NONE, allergies Cardiovascular: hypertension, hyperlipidemia, CAROTID ARTERY STENOSIS BRADYCARDIA Respiratory: asthma, bronchitis, MRSA PNA Gastrointestinal: GERD Hepatic: NONE Renal: NONE Musculoskeletal: osteoarthritis, chronic back pain s/p spinal fusion; OA CARPAL TUNNEL Psychiatric: NONE Endocrine: NIDDM Blood Disorders: NONE Cancer(s): NONE 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 History of MRSA: Yes History of VRE: Yes History of CDIFF: No Surgical History Pertinent Surgical History: spinal fusion (lumbar), status post carpal tunnel release right rotator cuff GANGION CYST REMOVAL TUBAL LIGATION Past Family/Social History Family History Relations & Conditions if any FATHER Relation not specified for: FH: myocardial infarction Exam & Diagnostic Data Last 24 Hrs of Vital Signs/I&O Vital Signs Date Time Temp Pulse Resp B/P B/P Pulse O2 O2 Flow FiO2 Mean Ox Delivery Rate 12/25 0750 98.0 83 18 134/65 97 Room Air Intake & Output 12/25 1600 12/25 0800 12/25 0000 Intake Total Output Total Balance Patient 173 lb Weight Physical Exam General Appearance Alert, Oriented X3, Cooperative HEENT PERRLA Cardiovascular Regular Rate, Normal S1, Normal S2 Lungs Clear to Auscultation, Normal Air Movement Abdomen Soft, No Tenderness Neurological Normal Speech, Strength at 5/5 X4 Ext, Normal Tone, Sensation Intact Extremities No Edema, Normal Pulses Last 24 Hrs of Labs/Chucky: Laboratory Tests 12/25/17 0905: Anion Gap 14, Estimated GFR > 60, BUN/Creatinine Ratio 23.8, Glucose 144 H, Calcium 10.1, Total Bilirubin 0.4, AST 30, ALT 45, Alkaline Phosphatase 103, Total Protein 7.4, Albumin 4.2, Globulin 3.2, Albumin/Globulin Ratio 1.3, PT 18.7 H, INR 1.71 H, CBC w Diff NO MAN DIFF REQ, RBC 4.46, MCV 82.6, MCH 27.3, MCHC 33.0, RDW 15.0 H, MPV 8.4, Gran % 77.3 H, Lymphocytes % 11.1 L, Monocytes % 8.7, Eosinophils % 2.4, Basophils % 0.5, Absolute Granulocytes 11.5 H, Absolute Lymphocytes 1.7, Absolute Monocytes 1.3 H, Absolute Eosinophils 0.4 , Absolute Basophils 0.1 Assessment/Plan Assessment/Plan: Ms. Eduardo is a 72-year-old female known to the orthopedic service for this persistent draining lumbar wound. She was sent in today by Dr. Estrada to be taken to the operating room this afternoon for irrigation and debridement of this wound with removal of hardware. With her known past medical history we will have the medical and cardiology team see her on this admission. Although she did not take her Coumadin for the past 2 days for her known right upper extremity DVT, her INR today is 1.71. Dr. Najera has been notified of this and will await reversal if necessary from him. Plan N.p.o. now We will review home medication IV vancomycin is scheduled for this evening Plan for irrigation and debridement and removal of hardware of lumbar wound this afternoon As Ranked By This Provider Problem List: 1. Surgical wound infection Copies To: Dania HARRIS,Ray Rose
--- NOTE | 2017-12-25 11:30 | Cons- Infect Disease ---
General Information and HPI Consulting Request Date of Consult: 12/25/17 Requested By: Dr. Ray Najera Reason for Consult: Persistent drainage from her surgical site Source of Information: patient, family, old records History of Present Illness: This is a 72-year-old woman with a history of COPD, diabetes, hypertension, osteoarthritis, spinal stenosis and chronic back pain, status post decompressive lumbar laminectomy L2-S1 11 weeks prior to admission, with insertion of a cage and pedicle screws and removal of the old screws from a previous spinal fusion 4 years earlier, with her postop course complicated by anemia, requiring 6 units of blood and a right upper extremity DVT secondary to a prior PICC, for which she has remained on Coumadin, readmitted 8 weeks prior to admission with a surgical site infection secondary to Klebsiella, status post I&D with retention of the hardware, and discharged on Ciprofloxacin, readmitted 3 1/2 weeks prior to admission with persistent drainage from her incision, status post I&D with retention of the hardware, with the OR cultures positive for MRSA, discharged on Vancomycin alone, having completed a 6 week course of Ciprofloxacin, admitted today because of persistent drainage from her incision, with plans for removal of the hardware later today. She denies any pain, fevers or chills. She has been ambulating well with no other complaints. Allergies/Medications Allergies: Coded Allergies: Sulfa (Sulfonamide Antibiotics) (Intermediate, SKIN TURNS PURPLE/HOT 10/28/17) Penicillins (Mild, ITCHING 10/28/17) aspirin (HX GASTRITIS 10/28/17) ASA->BLEEDING atorvastatin (PER PT MED LIST 10/28/17) prednisone (Severe, VISION CHANGES 10/28/17) Uncoded Allergies: ENVIRONMENTAL (UNKNOWN 07/20/13) MULTIPLE ANTIBIOTICS (UNKNOWN 07/20/13) Home Med List: Albuterol Sulfate (Proair Hfa) 90 MCG HFA.AER.AD 2 PUF INH PRN ASTHMA/ ALLERGIES (Reported) Ascorbate Calcium (Vitamin C) 500 MG TABLET 1 TAB PO DAILY SUPPLEMENT ( Reported) Azelastine/Fluticasone (Dymista Nasal [place]) 137 MCG-50 MCG/SPRAY SPRAY.PUMP 1 SPRAY NASB PRN ALLERGIES (Reported) Budesonide/Formoterol Fumarate (Symbicort 160-4.5 Mcg Inhaler) 160 MCG-4.5 MCG/ ACTUATION HFA.AER.AD 2 PUFF INH BID ASTHMA/ALLERGIES (Reported) Cetirizine HCl (Zyrtec) 10 MG CAPSULE 1 CAP PO DAILY ALLERGIES (Reported) Cholecalciferol (Vitamin D3) (Vitamin D) 1,000 UNIT TABLET 1 TAB PO DAILY SUPPLEMENT (Reported) Cyclobenzaprine HCl 5 MG TABLET 1 TAB PO QPMP PRN MUSCLE SPASMS (Reported) Diltiazem HCl (Cartia Xt) 300 MG CAP.ER.24H 1 CAP PO DAILY HEART (Reported) Ferrous Sulfate 325 MG (65 MG IRON) TABLET 1 TAB PO DAILY IRON, VITAMIN ( Reported) Glimepiride 2 MG TABLET 1.5 TAB PO DAILY DM (Reported) Hydrocodone/Acetaminophen (Hydrocodon-Acetaminophen 5-325) 5 MG-325 MG TABLET 1 TAB PO Q4 HRS NEEDED PRN PAIN SCALE 4-6 (MODERATE) Lactobacillus Acidophilus (Acidophilus) 1 EACH CAPSULE 1 CAP PO DAILY GI ( Reported) Losartan/Hydrochlorothiazide (Losartan-Hctz 100-25 MG Tab) 100 MG-25 MG TABLET 1 TAB PO DAILY HTN (Reported) Melatonin 3 MG TABLET 3 TAB PO QPM SLEEP (Reported) Montelukast Sodium (Singulair) 10 MG TABLET 1 TAB PO DAILY ALLERGIES ( Reported) Multiple Vitamin (Multivitamins) 1 EACH TABLET 1 TAB PO DAILY SUPPLEMENT ( Reported) Multivit-Min/FA/Lutein/Zeaxant (Macular Vitamin Tablet) 500 MCG-5 MG-1 MG TABLET 1 TAB PO DAILY SUPPLEMENT (Reported) Omeprazole 40 MG CAPSULE. 1 CAP PO DAILY AC GERD (Reported) Ondansetron HCl (Zofran) 4 MG TABLET 1 TAB PO TID PRN NAUSEA/VOMITING ( Reported) Rosuvastatin Calcium (Crestor) 20 MG TABLET 1 TAB PO DAILY CHOLESTEROL ( Reported) Sitagliptin Phosphate (Januvia) 100 MG TABLET 1 TAB PO DAILY DM (Reported) Vancomycin/0.9 % Sod Chloride (Vanco 1.25 Gm/250 Ml-0.9% NaCl) 1.25 GRAM/250 ML PLAST..BAG 1.5 GM IV DAILY INFECTION CONTINUE FOR 6-[address] TINSLEY Warfarin Sodium 5 MG TABLET 1 TAB PO SuMoWeFrSa BLOOD THINNER (Reported) Warfarin Sodium 7.5 MG TABLET 1 TAB PO TuTh BLOOD THINNER (Reported) Past History Travel History Traveled to [place] past 21 day No Medical History Neurological: TIA EENT: allergies Cardiovascular: hypertension, hyperlipidemia, CAROTID ARTERY STENOSIS BRADYCARDIA Respiratory: asthma, bronchitis, MRSA PNA Gastrointestinal: GERD Hepatic: NONE Renal: NONE Musculoskeletal: osteoarthritis, chronic back pain Psychiatric: NONE Endocrine: NIDDM Blood Disorders: NONE Cancer(s): NONE 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 History of MRSA: Yes History of VRE: Yes History of CDIFF: No Surgical History Surgical History: spinal fusion (lumbar), status post carpal tunnel release right rotator cuff GANGION CYST REMOVAL TUBAL LIGATION Family History Relations & Conditions If Any: FATHER Relation not specified for: FH: myocardial infarction Review of Systems Review of Systems All Other Systems: Reviewed and Negative Exam & Diagnostic Data Last 24 Hrs of Vital Signs/I&O Vital Signs Date Time Temp Pulse Resp B/P B/P Pulse O2 O2 Flow FiO2 Mean Ox Delivery Rate 12/25 1111 98.4 74 16 142/76 97 Room Air 12/25 0830 97 Room Air 12/25 0750 98.0 83 18 134/65 97 Room Air Intake & Output 12/25 1600 12/25 0800 12/25 0000 Intake Total Output Total Balance Patient 173 lb Weight Physical Exam Other Physical Findings: She is awake and alert in no acute distress. She is afebrile. Skin reveals no rash. HEENT exam is negative. Neck is supple with no adenopathy. Lungs are clear. Heart regular rhythm with no murmur. Abdomen is soft, nontender with positive bowel sounds. Back incision clean, with no erythema or drainage currently; several Steri-Strips remain in place. Extremities no cyanosis, clubbing or edema; PICC in the left upper extremity with no inflammation at the site. Neuro is without focality. Last 24 Hours of Lab Results: Laboratory Tests 12/25 0905 Chemistry Sodium (137 - 145 mmol/L) 143 Potassium (3.5 - 5.1 mmol/L) 4.5 Chloride (98 - 107 mmol/L) 101 Carbon Dioxide (22 - 30 mmol/L) 28 Anion Gap (5 - 16) 14 BUN (7 - 17 mg/dL) 19 H Creatinine (0.5 - 1.0 mg/dL) 0.8 Estimated GFR (>60 ml/min) > 60 BUN/Creatinine Ratio (7 - 25 %) 23.8 Glucose (65 - 99 mg/dL) 144 H Calcium (8.4 - 10.2 mg/dL) 10.1 Total Bilirubin (0.2 - 1.3 mg/dL) 0.4 AST (14 - 36 U/L) 30 ALT (9 - 52 U/L) 45 Alkaline Phosphatase (<127 U/L) 103 Total Protein (6.3 - 8.2 g/dL) 7.4 Albumin (3.5 - 5.0 g/dL) 4.2 Globulin (1.9 - 4.2 gm/dL) 3.2 Albumin/Globulin Ratio (1.1 - 2.2 %) 1.3 Coagulation PT (9.4 - 12.5 SEC) 18.7 H INR (0.90 - 1.19) 1.71 H Hematology CBC w Diff NO MAN DIFF REQ WBC (4.8 - 10.8 /CUMM) 14.8 H RBC (4.20 - 5.40 /CUMM) 4.46 Hgb (12.0 - 16.0 G/DL) 12.2 Hct (37 - 47 %) 36.8 L MCV (81.0 - 99.0 FL) 82.6 MCH (27.0 - 31.0 PG) 27.3 MCHC (33.0 - 37.0 G/DL) 33.0 RDW (11.5 - 14.5 %) 15.0 H Plt Count (130 - 400 /CUMM) 328 MPV (7.4 - 10.4 FL) 8.4 Gran % (42.2 - 75.2 %) 77.3 H Lymphocytes % (20.5 - 51.1 %) 11.1 L Monocytes % (1.7 - 9.3 %) 8.7 Eosinophils % (0 - 5 %) 2.4 Basophils % (0.0 - 2.0 %) 0.5 Absolute Granulocytes (1.4 - 6.5 /CUMM) 11.5 H Absolute Lymphocytes (1.2 - 3.4 /CUMM) 1.7 Absolute Monocytes (0.10 - 0.60 /CUMM) 1.3 H Absolute Eosinophils (0.0 - 0.7 /CUMM) 0.4 Absolute Basophils (0.0 - 0.2 /CUMM) 0.1 Last 24 Hours of Chucky Results: No cultures Diagnostic Data Recent Imaging Findings: X-ray of the lumbosacral spine from today reveals no acute osseous abnormality, with stable postop changes; subtle focus of air bubble noted in the posterior soft tissues Assessment/Plan Assessment/Plan Impression: This is a 72-year-old woman with chronic back pain, status post decompressive lumbar laminectomy L2-S1 11 weeks prior to admission, complicated by a surgical site infection secondary to Klebsiella, requiring an I&D 8 weeks prior to admission, with a return to the OR 3-1/2 weeks prior to admission because of persistent drainage, with her OR cultures positive for MRSA, discharged on Vancomycin alone, having completed a 6 week course of Ciprofloxacin, admitted today because of persistent drainage from her incision, with plans for removal of the hardware later today. Her persistent drainage is suggestive of a residual infection, presumably secondary to retention of the hardware and, hopefully, with removal of the hardware, her infection will resolve. She remains on Vancomycin, which can be continued pending her OR cultures, with adjustment of her antibiotics, if needed , based on these cultures. She will require another 6 week course of antibiotics beginning from this most recent debridement. Suggestion: 1. Await return to the OR later today for removal of the hardware and repeat cultures 2. Continue Vancomycin 1.5 g IV every 24 hours pending above Consult Acknowledgment - Thank you for your consult request.
--- NOTE | 2017-12-25 12:09 | RADIOLOGY REPORT ---
EXAMINATION: XR PORTABLE CHEST CLINICAL INFORMATION: Preoperative evaluation. COMPARISON: 12/07/2017 TECHNIQUE: Portable frontal view of the chest was obtained. FINDINGS: Hypoinflation of the lungs, lordotic positioning and body habitus limit evaluation. Right hemidiaphragm elevation, unchanged. No focal consolidation, pleural effusion or pneumothorax. Heart size is normal. Left upper extremity PICC with catheter tip at the superior cavoatrial junction. No acute osseous abnormality. IMPRESSION: No acute pulmonary process.
--- NOTE | 2017-12-25 12:23 | Cons- Cardiology ---
General Information and HPI Consulting Request Date of Consult: 12/25/17 Requested By: Dania HARRIS,Ray Rose Reason for Consult: Preoperative assessment and assistance with cardiac management Source of Information: patient, old records Exam Limitations: no limitations History of Present Illness: 72-year-old woman with past medical history of TIA, hyperlipidemia, hypertension , asthma, bronchitis, COPD, MRSA, GERD, OA, chronic back pain status post spinal fusion, anp-zgphtgg-fvhbtgagi diabetes mellitus, and 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 She underwent removal of surgical hardware and I&D of her lumbar region in the OR earlier today. Postoperatively, she was transferred to the ICU for recovery and further management. Allergies/Medications Allergies: Coded Allergies: Sulfa (Sulfonamide Antibiotics) (Intermediate, SKIN TURNS PURPLE/HOT 10/28/17) Penicillins (Mild, ITCHING 10/28/17) aspirin (HX GASTRITIS 10/28/17) ASA->BLEEDING atorvastatin (PER PT MED LIST 10/28/17) prednisone (Severe, VISION CHANGES 10/28/17) Uncoded Allergies: ENVIRONMENTAL (UNKNOWN 07/20/13) MULTIPLE ANTIBIOTICS (UNKNOWN 07/20/13) Home Med List: Albuterol Sulfate (Proair Hfa) 90 MCG HFA.AER.AD 2 PUF INH PRN ASTHMA/ ALLERGIES (Reported) Ascorbate Calcium (Vitamin C) 500 MG TABLET 1 TAB PO DAILY SUPPLEMENT ( Reported) Azelastine/Fluticasone (Dymista Nasal [place]) 137 MCG-50 MCG/SPRAY SPRAY.PUMP 1 SPRAY NASB PRN ALLERGIES (Reported) Budesonide/Formoterol Fumarate (Symbicort 160-4.5 Mcg Inhaler) 160 MCG-4.5 MCG/ ACTUATION HFA.AER.AD 2 PUFF INH BID ASTHMA/ALLERGIES (Reported) Cetirizine HCl (Zyrtec) 10 MG CAPSULE 1 CAP PO DAILY ALLERGIES (Reported) Cholecalciferol (Vitamin D3) (Vitamin D) 1,000 UNIT TABLET 1 TAB PO DAILY SUPPLEMENT (Reported) Cyclobenzaprine HCl 5 MG TABLET 1 TAB PO QPMP PRN MUSCLE SPASMS (Reported) Diltiazem HCl (Cartia Xt) 300 MG CAP.ER.24H 1 CAP PO DAILY HEART (Reported) Ferrous Sulfate 325 MG (65 MG IRON) TABLET 1 TAB PO DAILY IRON, VITAMIN ( Reported) Gabapentin 300 MG CAPSULE 300 MG PO Q8 PRN PAIN . Glimepiride 2 MG TABLET 1.5 TAB PO DAILY DM (Reported) Hydrocodone/Acetaminophen (Hydrocodon-Acetaminophen 5-325) 5 MG-325 MG TABLET 1 TAB PO Q4 HRS NEEDED PRN PAIN SCALE 4-6 (MODERATE) Lactobacillus Acidophilus (Acidophilus) 1 EACH CAPSULE 1 CAP PO DAILY GI ( Reported) Losartan/Hydrochlorothiazide (Losartan-Hctz 100-25 MG Tab) 100 MG-25 MG TABLET 1 TAB PO DAILY HTN (Reported) Melatonin 3 MG TABLET 3 TAB PO QPM SLEEP (Reported) Montelukast Sodium (Singulair) 10 MG TABLET 1 TAB PO DAILY ALLERGIES ( Reported) Multiple Vitamin (Multivitamins) 1 EACH TABLET 1 TAB PO DAILY SUPPLEMENT ( Reported) Multivit-Min/FA/Lutein/Zeaxant (Macular Vitamin Tablet) 500 MCG-5 MG-1 MG TABLET 1 TAB PO DAILY SUPPLEMENT (Reported) Omeprazole 40 MG CAPSULE.DR 1 CAP PO DAILY AC GERD (Reported) Ondansetron HCl (Zofran) 4 MG TABLET 1 TAB PO TID PRN NAUSEA/VOMITING ( Reported) Rosuvastatin Calcium (Crestor) 20 MG TABLET 1 TAB PO DAILY CHOLESTEROL ( Reported) Sitagliptin Phosphate (Januvia) 100 MG TABLET 1 TAB PO DAILY DM (Reported) Vancomycin/0.9 % Sod Chloride (Vanco 1.25 Gm/250 Ml-0.9% NaCl) 1.25 GRAM/250 ML PLAST..BAG 1.75 GM IV DAILY INFECTION CONTINUE UNTIL 02/05 Warfarin Sodium 5 MG TABLET 1 TAB PO SuMoWeFrSa BLOOD THINNER (Reported) Warfarin Sodium 7.5 MG TABLET 1 TAB PO TuTh BLOOD THINNER (Reported) Current Medications: Current Medications Sig/Clementine Start time Last Medication Dose Route Stop Time Status Admin Alteplase, 2 MG ONE ONE 12/25 0900 DC 12/25 Recombinant IV 12/25 0901 [id number] Past History Travel History Traveled to [place] past 21 day No Medical History Neurological: TIA EENT: allergies Cardiovascular: hypertension, hyperlipidemia, CAROTID ARTERY STENOSIS BRADYCARDIA Respiratory: asthma, bronchitis, MRSA PNA Gastrointestinal: GERD Hepatic: NONE Renal: NONE Musculoskeletal: osteoarthritis, chronic back pain Psychiatric: NONE Endocrine: NIDDM Blood Disorders: NONE Cancer(s): NONE 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 Surgical History Surgical History: spinal fusion (lumbar), status post carpal tunnel release right rotator cuff GANGION CYST REMOVAL TUBAL LIGATION Family History Relations & Conditions If Any: FATHER Relation not specified for: FH: myocardial infarction Exam & Diagnostic Data Vital Signs and I&O Vital Signs Date Time Temp Pulse Resp B/P B/P Pulse O2 O2 Flow FiO2 Mean Ox Delivery Rate 12/25 1111 98.4 74 16 142/76 97 Room Air 12/25 0830 97 Room Air 12/25 0750 98.0 83 18 134/65 97 Room Air Intake & Output 12/25 1600 12/25 0800 12/25 0000 12/24 1600 12/24 0800 12/24 0000 Intake Total Output Total Balance Patient 173 lb Weight Physical Exam: Gen: NAD HEENT: normal Lungs: clear to auscultation, normal resp. effort Heart: RRR, S1, S2, no murmurs Abdomen: Soft, nontender, no masses Extremities: No clubbing, cyanosis, or edema. Neuro: Alert and oriented x 3, cranial nerves intact Labs/Chucky Results: Laboratory Tests 12/25 904 Chemistry Sodium (137 - 145 mmol/L) 143 Potassium (3.5 - 5.1 mmol/L) 4.5 Chloride (98 - 107 mmol/L) 101 Carbon Dioxide (22 - 30 mmol/L) 28 Anion Gap (5 - 16) 14 BUN (7 - 17 mg/dL) 19 H Creatinine (0.5 - 1.0 mg/dL) 0.8 Estimated GFR (>60 ml/min) > 60 BUN/Creatinine Ratio (7 - 25 %) 23.8 Glucose (65 - 99 mg/dL) 144 H Calcium (8.4 - 10.2 mg/dL) 10.1 Total Bilirubin (0.2 - 1.3 mg/dL) 0.4 AST (14 - 36 U/L) 30 ALT (9 - 52 U/L) 45 Alkaline Phosphatase (<127 U/L) 103 Total Protein (6.3 - 8.2 g/dL) 7.4 Albumin (3.5 - 5.0 g/dL) 4.2 Globulin (1.9 - 4.2 gm/dL) 3.2 Albumin/Globulin Ratio (1.1 - 2.2 %) 1.3 Coagulation PT (9.4 - 12.5 SEC) 18.7 H INR (0.90 - 1.19) 1.71 H Hematology CBC w Diff NO MAN DIFF REQ WBC (4.8 - 10.8 /CUMM) 14.8 H RBC (4.20 - 5.40 /CUMM) 4.46 Hgb (12.0 - 16.0 G/DL) 12.2 Hct (37 - 47 %) 36.8 L MCV (81.0 - 99.0 FL) 82.6 MCH (27.0 - 31.0 PG) 27.3 MCHC (33.0 - 37.0 G/DL) 33.0 RDW (11.5 - 14.5 %) 15.0 H Plt Count (130 - 400 /CUMM) 328 MPV (7.4 - 10.4 FL) 8.4 Gran % (42.2 - 75.2 %) 77.3 H Lymphocytes % (20.5 - 51.1 %) 11.1 L Monocytes % (1.7 - 9.3 %) 8.7 Eosinophils % (0 - 5 %) 2.4 Basophils % (0.0 - 2.0 %) 0.5 Absolute Granulocytes (1.4 - 6.5 /CUMM) 11.5 H Absolute Lymphocytes (1.2 - 3.4 /CUMM) 1.7 Absolute Monocytes (0.10 - 0.60 /CUMM) 1.3 H Absolute Eosinophils (0.0 - 0.7 /CUMM) 0.4 Absolute Basophils (0.0 - 0.2 /CUMM) 0.1 Diagnostic Data CXR Results FINDINGS: Hypoinflation of the lungs, lordotic positioning and body habitus limit evaluation. Right hemidiaphragm elevation, unchanged. No focal consolidation, pleural effusion or pneumothorax. Heart size is normal. Left upper extremity PICC with catheter tip at the superior cavoatrial junction. No acute osseous abnormality. IMPRESSION: No acute pulmonary process. Assessment/Plan Assessment/Plan Assessment: 1. Postoperative wound infection following lumbar laminectomy; scheduled for removal of hardware later today 2. 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 History of hypertension 4. Type 2 diabetes 5. Prior TIA 6. Mild normocytic anemia Recommendations: 1. From a cardiac perspective, the patient appears unchanged and is stable for surgery as planned. 2. Continue current medication regimen 3. Of note, the patient has a history of perioperative bradycardia and junctional rhythm during a prior procedure. She has been taking her increased dose of Cardizem 300 mg daily at home. In view of this fact, I would monitor her for 24-48 hours on telemetry post surgery. 4. Cardizem dose to be readjusted depending on the patient's postoperative heart rate. 5. Anticoagulation reversal as per surgery 6. The timing of restarting the patient's anticoagulation will depend on decisions by the surgical service. Consult Acknowledgment - Thank you for your consult request.
[2017-12-25 13:17] VITALS: BP 140/70
[2017-12-25 14:02] VITALS: BP 138/68
[2017-12-25 15:00] VITALS: BP 140/70
[2017-12-25 16:00] VITALS: BP 158/70
[2017-12-25 16:24] LABS: PT 15.4 SEC (9.4-12.5)
[2017-12-25 20:00] LABS: ABSOLUTE BASOPHIL COUNT 0 /CUMM (0.0-0.2); ABSOLUTE EOSINOPHIL COUNT 0.3 /CUMM (0.0-0.7); ABSOLUTE GRANULOCYTE CT 6.8 /CUMM (1.4-6.5); ABSOLUTE LYMPH COUNT 1.5 /CUMM (1.2-3.4); BASOPHIL % 0.3 % (0.0-2.0); EOSINOPHIL % 3.1 % (0-5); GRANULOCYTE % 70.7 % (42.2-75.2); MEAN CORPUSCULAR HGB 26.8 PG (27.0-31.0); MEAN CORPUSCULAR HGB CONC 32.7 G/DL (33.0-37.0); MEAN CORPUSCULAR VOLUME 81.7 FL (81.0-99.0); MEAN PLATELET VOLUME 7.8 FL (7.4-10.4); PLATELET COUNT 254 /CUMM (130-400); RBC DISTRIBUTION WIDTH 14.7 % (11.5-14.5); WHITE BLOOD CELL COUNT 9.7 /CUMM (4.8-10.8)
[2017-12-25 20:06] LABS: HEMATOCRIT 23.8 % (37-47); RED BLOOD CELL CT 2.92 /CUMM (4.20-5.40)
--- NOTE | 2017-12-25 21:59 | Operative Report ---
Operative/Inv Procedure Report Surgery Date: 12/25/17 Name of Procedure: #1 revision of lumbar wound #2 I&D of lumbar wound As secondary #3 exploration of fusion #4 removal of hardware bilateral Pre-Operative Diagnosis: Infected lumbar wound Post-Operative Diagnosis: Infected lumbar wound Estimated Blood Loss: 1200 mL Surgeon/Machine Staker: Dania HARRIS,Ray Rose(co-surgeon) Eric Dempsey MD Anesthesia: general endotracheal tube Monitors: None IV Fluids: D5 normal Implants: None Urine Output: See anesthesia note Drains: 2 Hemovacs Specimens: Multiple cultures Microbiology: Multiple cultures sent from superficial and deep structures Tourniquet: None Complications: None Condition: Stable Operative Indication: 72-year-old woman who continues to drain from the wound that had already been explored. Patient had a diagnosis of postoperative infection and had been on antibiotics including vancomycin to date. Because she continues to drain it was felt imperative to explored of the fusion once more and to probably remove the hardware before performing and full irrigation with the Pulsavac. Indications alternative risks were discussed by Ray Najera MD with the patient Operative/Procedure Note Note: Patient was brought in supine intubated supine placed prone on the Leo table. Antibiotics only given after all the cultures were taken. There was no neurophysiological monitoring. The patient was placed prone on the Leo table and all surfaces were closely monitored to be sure there was no abnormal pressure The back was prepped and draped usual sterile manner reopened in its full length. 2 areas both at the lower midportion as well as the lower most portion were revised removing the tissue that had not healed and was perpetuating a defect and this was taken back down to bleeding edges All previous sutures were removed and the dissection was carried down to the aponeurosis was noted that the upper edge of the aponeurosis surprisingly had an area of deficit in that area of deficit was filled with purulent malodorous material this was cultured Following that the whole extent of the wound being opened the deep hematoma was removed and sample sent for culture as well. The hardware was identified and the fusion itself examined. No further comments on the hardware and fusion please see Ray Najera MD's note Following the removal of the hardware 1200 mL of bacitracin solution where insulated under pressure with the Pulsavac device and all surfaces were treated with his machinery and the fluid under pressure Following this the 2 Hemovacs were placed of the muscles work and aponeurosis were closed with 0 Maxon subcutaneous tissue was closed with 0 Maxon subcuticular tissue with 2-0 Maxon and the defects and subcuticular tissue with 3-0 Maxon before closing the skin with stainless steel maya and placing a full dressing. Patient was in satisfactory condition upon removal to the ICU Findings: An area of purulent material was identified above the aponeurosis extending in through the aponeurosis into the muscle layer at the top and which came as a new discovery There is no vic purulent material around the fusion site Multiple cultures were taken Discharge Disposition: Critical Care Unit Additional Comments: Patient treated with vancomycin until cultures will return CC: Dania HARRIS,Ray Rose; Alfred HARRIS,Eron Kang
--- NOTE | 2017-12-25 23:26 | History & Physical ---
General Information and HPI MD Statement: I have seen and personally examined TAMMY FOSTER and documented this H&P. The patient is a 72 year old F who presented with a patient stated chief complaint of []. Source of Information: patient, old records Exam Limitations: no limitations History of Present Illness: 72-year-old woman with past medical history of TIA, hyperlipidemia, hypertension , asthma, bronchitis, COPD, MRSA, GERD, OA, chronic back pain status post spinal fusion, umd-[id number]-lvhubhlij diabetes mellitus, and 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 She underwent removal of surgical hardware and I&D of her lumbar region in the OR earlier today. Postoperatively, she was transferred to the ICU for recovery and further management. Allergies/Medications Allergies: Coded Allergies: Sulfa (Sulfonamide Antibiotics) (Intermediate, SKIN TURNS PURPLE/HOT 10/28/17) Penicillins (Mild, ITCHING 10/28/17) aspirin (HX GASTRITIS 10/28/17) ASA->BLEEDING atorvastatin (PER PT MED LIST 10/28/17) prednisone (Severe, VISION CHANGES 10/28/17) Uncoded Allergies: ENVIRONMENTAL (UNKNOWN 07/20/13) MULTIPLE ANTIBIOTICS (UNKNOWN 07/20/13) Home Med list Albuterol Sulfate (Proair Hfa) 90 MCG HFA.AER.AD 2 PUF INH PRN ASTHMA/ ALLERGIES (Reported) Ascorbate Calcium (Vitamin C) 500 MG TABLET 1 TAB PO DAILY SUPPLEMENT ( Reported) Azelastine/Fluticasone (Dymista Nasal [place]) 137 MCG-50 MCG/SPRAY SPRAY.PUMP 1 SPRAY NASB PRN ALLERGIES (Reported) Budesonide/Formoterol Fumarate (Symbicort 160-4.5 Mcg Inhaler) 160 MCG-4.5 MCG/ ACTUATION HFA.AER.AD 2 PUFF INH BID ASTHMA/ALLERGIES (Reported) Cetirizine HCl (Zyrtec) 10 MG CAPSULE 1 CAP PO DAILY ALLERGIES (Reported) Cholecalciferol (Vitamin D3) (Vitamin D) 1,000 UNIT TABLET 1 TAB PO DAILY SUPPLEMENT (Reported) Cyclobenzaprine HCl 5 MG TABLET 1 TAB PO QPMP PRN MUSCLE SPASMS (Reported) Diltiazem HCl (Cartia Xt) 300 MG CAP.ER.24H 1 CAP PO DAILY HEART (Reported) Ferrous Sulfate 325 MG (65 MG IRON) TABLET 1 TAB PO DAILY IRON, VITAMIN ( Reported) Glimepiride 2 MG TABLET 1.5 TAB PO DAILY DM (Reported) Hydrocodone/Acetaminophen (Hydrocodon-Acetaminophen 5-325) 5 MG-325 MG TABLET 1 TAB PO Q4 HRS NEEDED PRN PAIN SCALE 4-6 (MODERATE) Lactobacillus Acidophilus (Acidophilus) 1 EACH CAPSULE 1 CAP PO DAILY GI ( Reported) Losartan/Hydrochlorothiazide (Losartan-Hctz 100-25 MG Tab) 100 MG-25 MG TABLET 1 TAB PO DAILY HTN (Reported) Melatonin 3 MG TABLET 3 TAB PO QPM SLEEP (Reported) Montelukast Sodium (Singulair) 10 MG TABLET 1 TAB PO DAILY ALLERGIES ( Reported) Multiple Vitamin (Multivitamins) 1 EACH TABLET 1 TAB PO DAILY SUPPLEMENT ( Reported) Multivit-Min/FA/Lutein/Zeaxant (Macular Vitamin Tablet) 500 MCG-5 MG-1 MG TABLET 1 TAB PO DAILY SUPPLEMENT (Reported) Omeprazole 40 MG CAPSULE. 1 CAP PO DAILY AC GERD (Reported) Ondansetron HCl (Zofran) 4 MG TABLET 1 TAB PO TID PRN NAUSEA/VOMITING ( Reported) Rosuvastatin Calcium (Crestor) 20 MG TABLET 1 TAB PO DAILY CHOLESTEROL ( Reported) Sitagliptin Phosphate (Januvia) 100 MG TABLET 1 TAB PO DAILY DM (Reported) Vancomycin/0.9 % Sod Chloride (Vanco 1.25 Gm/250 Ml-0.9% NaCl) 1.25 GRAM/250 ML PLAST..BAG 1.5 GM IV DAILY INFECTION CONTINUE FOR 6-[address] TINSLEY Warfarin Sodium 5 MG TABLET 1 TAB PO SuMoWeFrSa BLOOD THINNER (Reported) Warfarin Sodium 7.5 MG TABLET 1 TAB PO TuTh BLOOD THINNER (Reported) Past History Travel History Traveled to [place] past 21 day No Medical History Blood Transfusion Hx: Yes Neurological: TIA EENT: allergies Cardiovascular: hypertension, hyperlipidemia, CAROTID ARTERY STENOSIS BRADYCARDIA Respiratory: asthma, bronchitis, COPD, MRSA PNA Gastrointestinal: GERD Hepatic: NONE Renal: NONE Musculoskeletal: osteoarthritis, spinal stenosis, chronic back pain Psychiatric: NONE Endocrine: diabetes, NIDDM Blood Disorders: NONE Cancer(s): NONE 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 Home Services at Home: Nursing Smoking Status: Never Smoked Review of Systems Review of Systems Constitutional: Reports: no symptoms. Exam & Diagnostic Data Last 24 Hrs of Vital Signs/I&O Vital Signs Date Time Temp Pulse Resp B/P B/P Pulse O2 O2 Flow FiO2 Mean Ox Delivery Rate 12/25 1600 98.3 86 18 158/70 94 12/25 1500 97.5 69 18 140/70 98 Room Air 12/25 1402 97.0 71 20 138/68 98 Room Air 12/25 1317 97.9 89 20 140/70 94 Room Air 12/25 1111 98.4 74 16 142/76 97 Room Air 12/25 0830 97 Room Air 12/25 0750 98.0 83 18 134/65 97 Room Air Intake & Output 12/25 1600 12/25 0800 12/25 0000 Intake Total 314 Output Total Balance 314 Intake, Blood 314 Product Patient 173 lb 173 lb Weight Weight Reported by Patient Measurement Method Physical Exam General Appearance Cooperative, Mild Distress, awake Skin No Rashes, No Breakdown Skin Temp/Moisture Exam: Warm/Dry Sepsis Skin Exam (color): Normal for Ethnicity HEENT Atraumatic Cardiovascular Normal S1, Normal S2, No Murmurs Lungs Normal Air Movement Abdomen Soft, No Tenderness Extremities No Edema Last 24 Hrs of Labs/Chucky: Laboratory Tests 12/25/17 1950: CBC w Diff NO MAN DIFF REQ, RBC 2.92 L, MCV 81.7, MCH 26.8 L, MCHC 32.7 L, RDW 14.7 H, MPV 7.8, Gran % 70.7, Lymphocytes % 15.8 L, Monocytes % 10.1 H, Eosinophils % 3.1, Basophils % 0.3, Absolute Granulocytes 6.8 H, Absolute Lymphocytes 1.5, Absolute Monocytes 1.0 H, Absolute Eosinophils 0.3, Absolute Basophils 0 12/25/17 1555: PT 15.4 H, INR 1.41 H 12/25/17 0905: Anion Gap 14, Estimated GFR > 60, BUN/Creatinine Ratio 23.8, Glucose 144 H, Calcium 10.1, Total Bilirubin 0.4, AST 30, ALT 45, Alkaline Phosphatase 103, Total Protein 7.4, Albumin 4.2, Globulin 3.2, Albumin/Globulin Ratio 1.3, PT 18.7 H, INR 1.71 H, CBC w Diff NO MAN DIFF REQ, RBC 4.46, MCV 82.6, MCH 27.3, MCHC 33.0, RDW 15.0 H, MPV 8.4, Gran % 77.3 H, Lymphocytes % 11.1 L, Monocytes % 8.7, Eosinophils % 2.4, Basophils % 0.5, Absolute Granulocytes 11.5 H, Absolute Lymphocytes 1.7, Absolute Monocytes 1.3 H, Absolute Eosinophils 0.4 , Absolute Basophils 0.1 Microbiology 12/26 0000 UPPER RESP: Surveillance Culture - COLB 12/26 0000 GI: Surveillance Culture - COLB 12/25 2213 TRUNK/O.R.: Culture & Sensitivity - CAN Cancelled: DUPLICATED 12/25 2213 TRUNK/O.R.: Gram Stain - CAN Cancelled: DUPLICATED 12/25 2212 TRUNK/O.R.: Culture & Sensitivity - CAN Cancelled: DUPLICATED 12/25 2212 TRUNK/O.R.: Gram Stain - CAN Cancelled: DUPLICATED 12/25 2210 TRUNK/O.R.: Culture & Sensitivity - CAN Cancelled: DUPLICATED 12/25 2210 TRUNK/O.R.: Gram Stain - CAN Cancelled: DUPLICATED 12/25 2209 TRUNK/O.R.: Culture & Sensitivity - CAN Cancelled: DUPLICATED 12/25 2209 TRUNK/O.R.: Gram Stain - CAN Cancelled: DUPLICATED 12/26 2203 TRUNK/O.R.: Culture & Sensitivity - CAN Cancelled: DUPLICATED 12/26 2203 TRUNK/O.R.: Gram Stain - CAN Cancelled: DUPLICATED 12/25 2149 TRUNK/O.R.: Culture & Sensitivity - RECD 12/25 2149 TRUNK/O.R.: Gram Stain - RECD 12/25 2029 TRUNK/O.R.: Culture & Sensitivity - RECD 12/25 2029 TRUNK/O.R.: Gram Stain - RECD 12/26 1999 TRUNK/O.R.: Culture & Sensitivity - RECD 12/26 1999 TRUNK/O.R.: Gram Stain - RECD 12/26 1999 TRUNK/O.R.: Culture & Sensitivity - RECD 12/26 1999 TRUNK/O.R.: Gram Stain - RECD 12/26 1999 TRUNK/O.R.: Culture & Sensitivity - RECD 12/26 1999 TRUNK/O.R.: Gram Stain - RECD Diagnostic Data CXR Results FINDINGS: Hypoinflation of the lungs, lordotic positioning and body habitus limit evaluation. Right hemidiaphragm elevation, unchanged. No focal consolidation, pleural effusion or pneumothorax. Heart size is normal. Left upper extremity PICC with catheter tip at the superior cavoatrial junction. No acute osseous abnormality. IMPRESSION: No acute pulmonary process. Assessment/Plan Assessment: 72-year-old woman with past medical history of TIA, hyperlipidemia, hypertension , asthma, bronchitis, COPD, MRSA, GERD, OA, chronic back pain status post spinal fusion, kyz-[id number]-xsikftttj diabetes mellitus, and upper extremity DVT on Coumadin is currently admitted to the ICU for managment. Assessment: 1. Surgical site infection 2. Hypertensive Urgency 3. Acute Hypoxic Respiratory Failure Plan: * Admit patient to ICU * Continue supplemental oxygen to maintain target sats >92%. Currently on 3L. * Monitor blood pressure. Patient has an arterial line. * Continue IV Vancomycin. this will be needed for a total of 6 weeks. * Pain control with IV dilaudidd as needed. * Coumadin on hold for now. This can be restarted as per surgery. * Insulin SS with Accucheks * Diet: Diabetic * DVT Prophylaxis: SC Heparin * Code: Full Code As Ranked By This Provider Problem List: 1. Hardware complicating wound infection Core Measures/Misc (03/01) Acute Coronary Syndrome ACS Diagnosis: No Congestive Heart Failure Congestive Heart Failure Diagnosis No Cerebrovascular Accident CVA/TIA Diagnosis: No VTE (View Protocol) VTE Risk Factors Age>40 No Mechanical VTE Prophylaxis d/t N/A MechProphylax Ordered No VTE Pharm Prophylaxis d/t NA PharmProphylax ordered Sepsis (View protocol) Sepsis Present: Yes If YES complete Sepsis Event Note If YES complete Sepsis Event Note
[2017-12-26] VITALS: BP 172/66
--- NOTE | 2017-12-26 05:31 | PN- Orthopedic ---
Subjective Subjective: Pt is now POD #1 s/p lumbar washout, removal of hardware, jpx2. She received 2u of prbc's intraop for hypotension, which resolved. She was transferred to the ICU postoperatively for continuous BP monitoring. Upon arrival her BP was high, in the 170s-180s systolic, but she was noted to be in a fair amount of discomfort at that time. She received intermittent IV dilaudid overnight, with reasonable pain response and improvement in BP. Now 130s-160s systolic. She is tolerating sips of clears. Admits to peristent cough. Denies PARNELL, dizziness, chest pain, shortness of breath, nausea, vomiting, weakness. Objective Vital Signs and I&Os Vital Signs Date Time Temp Pulse Resp B/P B/P Pulse O2 O2 Flow FiO2 Mean Ox Delivery Rate 12/26 0000 100 Nasal 3.0L Cannula 12/26 0000 96.9 88 20 172/66 100 Nasal 3.0L Cannula 12/25 1600 98.3 86 18 158/70 94 12/25 1500 97.5 69 18 140/70 98 Room Air 12/25 1402 97.0 71 20 138/68 98 Room Air 12/25 1317 97.9 89 20 140/70 94 Room Air 12/25 1111 98.4 74 16 142/76 97 Room Air 12/25 0830 97 Room Air 12/25 0750 98.0 83 18 134/65 97 Room Air Intake & Output 12/26 0800 14 0000 13 1600 / 0800 12/25 0000 12 1600 Intake Total 1800 314 Output Total 1280 Balance 520 314 Intake, Blood 314 Product Intake, IV 1800 Intake, Oral 0 Number 0 Bowel Movements Output, 130 Drainage Output, Other 1000 Output, Urine 150 Patient 173 lb 173 lb Weight Weight Reported by Patient Measurement Method Physical Exam: Gen.: Patient is resting, but easily arousable. She is alert and oriented. Cardiac: Regular Pulmonary: Anterior and lateral lung liu reveal clear breath sounds. No wheezes appreciated. Congested cough noted. Abdomen: Soft, nontender nondistended. Extremities: The back dressing is clean, dry, and intact. [address] with a moderate amount of bloody drainage. (100 and 130 since OR). Patient is able to move all 4 extremities. Strenth of DF 5/5, PF 4/5 on R and 5/5 on L. Assessment/Plan Assessment/Plan Pt is a 72-year-old female known to the orthopedic service for this persistent draining lumbar wound. She is now POD #1 s/p washout/I&D with removal of hardware, and CLARIBEL drain x 2. Admitted to ICU overnight for BP monitoring. She remains relatively stable at this time. Plan: -Vancomycin 1.5g daily as per ID recommendations. Monitor temps and WBC. F/u OR cultures. -Pain control with Dilaudid. -Castillo for i/o's. -Leave dressings in place. Monitor CLARIBEL output. Drains are not stitched in, so use caution with movement. -Ok to resume SC heparin. Hold all other anticoagulation. -Medical management per critical care team. If pt remains stable, consider return to [facility]. -Will d/w Dr. Najera. Core Measures Venous Thromboembolism VTE Risk Factors Age>40 No Mechanical VTE Prophylaxis d/t N/A MechProphylax Ordered No VTE Pharm Prophylaxis d/t NA PharmProphylax ordered
[2017-12-26 06:16] LABS: ABSOLUTE EOSINOPHIL COUNT 0.1 /CUMM (0.0-0.7); ABSOLUTE MONOCYTE COUNT 1.5 /CUMM (0.10-0.60)
[2017-12-26 06:22] LABS: PT 14.8 SEC (9.4-12.5)
[2017-12-26 06:26] LABS: ABSOLUTE BASOPHIL COUNT 0 /CUMM (0.0-0.2); ABSOLUTE GRANULOCYTE CT 9.2 /CUMM (1.4-6.5); ABSOLUTE LYMPH COUNT 1.7 /CUMM (1.2-3.4); BASOPHIL % 0.3 % (0.0-2.0); EOSINOPHIL % 0.7 % (0-5); GRANULOCYTE % 73.2 % (42.2-75.2); MEAN CORPUSCULAR HGB 27.6 PG (27.0-31.0); MEAN CORPUSCULAR VOLUME 83.8 FL (81.0-99.0); MEAN PLATELET VOLUME 8.5 FL (7.4-10.4); PLATELET COUNT 227 /CUMM (130-400); RBC DISTRIBUTION WIDTH 14.9 % (11.5-14.5); RED BLOOD CELL CT 3.61 /CUMM (4.20-5.40); WHITE BLOOD CELL COUNT 12.6 /CUMM (4.8-10.8)
[2017-12-26 06:30] LABS: HEMATOCRIT 30.2 % (37-47)
[2017-12-26 08:00] VITALS: BP 160/60
--- NOTE | 2017-12-26 11:01 | PN- Cardiology ---
Subjective Subjective: Stable day 1 postoperatively. Elevated blood pressure noted. P.o. meds started this morning. Complains of discomfort at surgical site. Also complains of persistent cough with reportedly some yellowish sputum production. Objective Vital Signs and I&Os Vital Signs Date Time Temp Pulse Resp B/P B/P Pulse O2 O2 Flow FiO2 Mean Ox Delivery Rate 12/26 0918 93 170/66 12/26 0800 Nasal 2.0L Cannula 12/26 0800 97.8 83 18 160/60 100 Nasal 2.0L Cannula 12/26 0400 100 Nasal 3.0L Cannula 12/26 0000 100 Nasal 3.0L Cannula 12/26 0000 96.9 88 20 172/66 100 Nasal 3.0L Cannula 12/25 1600 98.3 86 18 158/70 94 12/25 1500 97.5 69 18 140/70 98 Room Air 12/25 1402 97.0 71 20 138/68 98 Room Air 12/25 1317 97.9 89 20 140/70 94 Room Air 12/25 1111 98.4 74 16 142/76 97 Room Air Intake & Output 12/26 1600 12/26 0800 12/26 0000 12/25 1600 12/25 0800 12/25 0000 Intake Total 823 1800 314 Output Total 340 1280 Balance 483 520 314 Intake, Blood 314 Product Intake, IV 773 1800 Intake, Oral 50 0 Number 0 0 Bowel Movements Output, 90 130 Drainage Output, Other 1000 Output, Urine 250 150 Patient 173 lb 173 lb Weight Weight Reported by Patient Measurement Method Physical Exam: General Appearance: well developed/nourished, alert, awake, oriented; mild distress Head: normal HEENT: Normal Neck: supple, JVP normal, carotid upstrokes normal bilaterally, no masses or thyromegaly Respiratory: chest non-tender, clear to auscultation and percussion bilaterally Cardiovascular: Regular S1, S2, 1-2/6 systolic murmur Abdomen: normal bowel sounds, soft, non-tender Extremities: normal inspection, no edema Vascular: Pulses are 2+ and equal bilaterally Neurologic: Grossly normal/nonfocal Current Medications: Current Medications Sig/Clementine Start time Last Medication Dose Route Stop Time Status Admin Acetaminophen 1,000 MG Q6P PRN 12/25 2315 AC 12/26 N/A 1 UNIT IV 0918 Albuterol Sulfate 2 PUF Q4 HRS NEEDED PRN 12/25 1345 DC 12/25 INH 1647 Ascorbic Acid 500 MG DAILY 12/26 0900 CAN PO Ascorbic Acid 500 MG DAILY 12/26 0900 AC 12/26 PO 0918 Atorvastatin Calcium 80 MG 1700 12/25 1700 DC PO Budesonide/ 2 PUF BID 12/26 0900 AC 12/26 Formoterol Fumarate INH 0923 Budesonide/ 2 PUF BID 12/25 2100 DC Formoterol Fumarate INH Cholecalciferol 1,000 IU DAILY 12/26 0900 CAN PO Cholecalciferol 1,000 IU DAILY 12/26 0900 AC 12/26 PO 0918 Diltiazem HCl 300 MG DAILY 12/26 0900 CAN PO Diltiazem HCl 300 MG DAILY 12/26 0900 AC 12/26 PO 0918 Fentanyl Citrate 500 MCG .STK-MED ONE 12/25 1637 DC IM 12/25 1638 Guaifenesin/ 10 ML ONCE ONE 12/26 1000 DC 12/26 Dextromethorphan PO 12/26 1001 1010 Heparin Sodium 5,000 UNIT Q8 12/26 0600 AC 12/26 (Porcine) SC 0627 Hydrochlorothiazide 25 MG DAILY 12/26 0900 AC 12/26 PO 1030 Hydromorphone HCl 1 MG Q4P PRN 12/25 2315 AC 12/26 IV 1010 Hydromorphone HCl 0.5 MG Q4P PRN 12/25 2315 AC IV Hydromorphone HCl 0.4 MG ONCE ONE 12/25 2300 DC 12/25 IV 12/25 2301 2324 Insulin Aspart 0 TIDAC 12/26 0800 AC 12/26 SC 0949 Insulin Human Regular 0 TIDAC/HS 12/26 0800 CAN SC Loratadine 10 MG DAILY 12/26 0900 CAN PO Loratadine 10 MG DAILY 12/26 0900 AC 12/26 PO 0918 Losartan Potassium 100 MG DAILY 12/26 0900 CAN PO Losartan Potassium 100 MG DAILY 12/26 0900 AC 12/26 PO 0918 Magnesium Sulfate 1 GM Q2H 12/26 0845 AC 12/26 Dextrose/Water 100 ML IV 12/26 1244 1032 Melatonin 9 MG QPM 12/26 2100 AC PO Melatonin 9 MG QPM 12/25 2100 DC PO Montelukast Sodium 10 MG DAILY 12/26 0900 CAN PO Montelukast Sodium 10 MG DAILY 12/26 0900 AC 12/26 PO 0918 Morphine Sulfate 4 MG ONCE ONE 12/25 1530 DC IV 12/25 1531 Omeprazole 40 MG DAILY AC 12/26 07 CAN PO Omeprazole 40 MG DAILY AC 12/26 07 AC 12/26 PO 0627 Rosuvastatin Calcium 20 MG 1700 12/26 1700 AC PO Rosuvastatin Calcium 20 MG 17012/25 1700 DC PO Sodium Chloride 1,000 ML Q10H 12/25 2330 AC 12/25 IV 2336 Vancomycin HCl 1,500 MG DAILY 12/26 09 DC Sodium Chloride 250 ML IV Vancomycin HCl 1,500 MG DAILY 12/26 09 AC 12/26 Sodium Chloride 250 ML IV 0944 Vancomycin HCl 1,500 MG DAILY 12/25 2199 CAN IV Vancomycin HCl 1,500 MG DAILY 12/25 2199 DC 12/25 Sodium Chloride 250 ML IV 1912 Results Last 48 Hrs of Labs/Mics: Laboratory Tests 12/26/17 0520: Anion Gap 9, Estimated GFR > 60, Glucose 156 H, Calcium 8.0 L, Phosphorus 4.1, Magnesium 1.2 L, Total Bilirubin 0.3, AST 24, ALT 34, Albumin 2.9 L, PT 14.8 H, INR 1.35 H, CBC w Diff NO MAN DIFF REQ, RBC 3.61 L, MCV 83.8, MCH 27.6, MCHC 33.0, RDW 14.9 H, MPV 8.5, Gran % 73.2, Lymphocytes % 13.5 L, Monocytes % 12.3 H, Eosinophils % 0.7, Basophils % 0.3, Absolute Granulocytes 9.2 H, Absolute Lymphocytes 1.7, Absolute Monocytes 1.5 H, Absolute Eosinophils 0.1, Absolute Basophils 0 12/25/17 1950: CBC w Diff NO MAN DIFF REQ, RBC 2.92 L, MCV 81.7, MCH 26.8 L, MCHC 32.7 L, RDW 14.7 H, MPV 7.8, Gran % 70.7, Lymphocytes % 15.8 L, Monocytes % 10.1 H, Eosinophils % 3.1, Basophils % 0.3, Absolute Granulocytes 6.8 H, Absolute Lymphocytes 1.5, Absolute Monocytes 1.0 H, Absolute Eosinophils 0.3, Absolute Basophils 0 12/25/17 1555: PT 15.4 H, INR 1.41 H 12/25/17 0905: Anion Gap 14, Estimated GFR > 60, BUN/Creatinine Ratio 23.8, Glucose 144 H, Calcium 10.1, Total Bilirubin 0.4, AST 30, ALT 45, Alkaline Phosphatase 103, Total Protein 7.4, Albumin 4.2, Globulin 3.2, Albumin/Globulin Ratio 1.3, PT 18.7 H, INR 1.71 H, CBC w Diff NO MAN DIFF REQ, RBC 4.46, MCV 82.6, MCH 27.3, MCHC 33.0, RDW 15.0 H, MPV 8.4, Gran % 77.3 H, Lymphocytes % 11.1 L, Monocytes % 8.7, Eosinophils % 2.4, Basophils % 0.5, Absolute Granulocytes 11.5 H, Absolute Lymphocytes 1.7, Absolute Monocytes 1.3 H, Absolute Eosinophils 0.4 , Absolute Basophils 0.1 Assessment/Plan Assessment/Plan Assessment: 1. Postoperative wound infection following lumbar laminectomy; stable, day 1 postop 2. 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 History of hypertension 4. Type 2 diabetes 5. Prior TIA 6. Mild normocytic anemia 7. New onset cough of unclear etiology Recommendations: -Continue management as per the ICU and surgical teams -Continue regular medications -Maintain on telemetry for at least another 24 hours -Oral anticoagulation on hold; as per surgery, consider restarting at time of surgical drain removal Continue telemetry? Yes
--- NOTE | 2017-12-26 11:30 | PN- Resident CRCU ---
Santiago Robins 12/26/17 1130: Subjective HPI/CRCU Issues: 72 y/o F with PMH of TIA, HLD, HTN, asthma, bronchitis, COPD, MRSA, GERD, OA, chronic back pain s/p spinal fusion, [id number] diabetes mellitus, and 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 She underwent removal of surgical hardware and I&D of her lumbar region in the OR on 12/25. Postoperatively, she was transferred to the ICU for further management. 24 Hour Events: Pt seen and examined at bedside. She was AAOX3, though complaining of very severe pain in her back. No other complains besides the pain. Objective Vital Signs & I&O Last 8 Hrs of Vitals and I&O: Laboratory Tests 12/26/17 0520: Anion Gap 9, Estimated GFR > 60, Glucose 156 H, Calcium 8.0 L, Phosphorus 4.1, Magnesium 1.2 L, Total Bilirubin 0.3, AST 24, ALT 34, Albumin 2.9 L, PT 14.8 H, INR 1.35 H, CBC w Diff NO MAN DIFF REQ, RBC 3.61 L, MCV 83.8, MCH 27.6, MCHC 33.0, RDW 14.9 H, MPV 8.5, Gran % 73.2, Lymphocytes % 13.5 L, Monocytes % 12.3 H, Eosinophils % 0.7, Basophils % 0.3, Absolute Granulocytes 9.2 H, Absolute Lymphocytes 1.7, Absolute Monocytes 1.5 H, Absolute Eosinophils 0.1, Absolute Basophils 0 12/25/17 1950: CBC w Diff NO MAN DIFF REQ, RBC 2.92 L, MCV 81.7, MCH 26.8 L, MCHC 32.7 L, RDW 14.7 H, MPV 7.8, Gran % 70.7, Lymphocytes % 15.8 L, Monocytes % 10.1 H, Eosinophils % 3.1, Basophils % 0.3, Absolute Granulocytes 6.8 H, Absolute Lymphocytes 1.5, Absolute Monocytes 1.0 H, Absolute Eosinophils 0.3, Absolute Basophils 0 Microbiology 12/26 0000 UPPER RESP: Surveillance Culture - COLB 12/26 0000 GI: Surveillance Culture - COLB 12/25 2214 TRUNK/O.R.: Culture & Sensitivity - CAN Cancelled: DUPLICATED 12/25 2213 TRUNK/O.R.: Gram Stain - CAN Cancelled: DUPLICATED 12/25 2212 TRUNK/O.R.: Culture & Sensitivity - CAN Cancelled: DUPLICATED 12/25 2212 TRUNK/O.R.: Gram Stain - CAN Cancelled: DUPLICATED 12/25 2210 TRUNK/O.R.: Culture & Sensitivity - CAN Cancelled: DUPLICATED 12/25 2210 TRUNK/O.R.: Gram Stain - CAN Cancelled: DUPLICATED 12/25 2209 TRUNK/O.R.: Culture & Sensitivity - CAN Cancelled: DUPLICATED 12/25 2209 TRUNK/O.R.: Gram Stain - CAN Cancelled: DUPLICATED 12/26 2203 TRUNK/O.R.: Culture & Sensitivity - CAN Cancelled: DUPLICATED 12/26 2203 TRUNK/O.R.: Gram Stain - CAN Cancelled: DUPLICATED 12/25 2149 TRUNK/O.R.: Culture & Sensitivity - RES 12/25 2149 TRUNK/O.R.: Gram Stain - RES 12/25 2029 TRUNK/O.R.: Culture & Sensitivity - RES 12/25 2029 TRUNK/O.R.: Gram Stain - RES 12/26 1999 TRUNK/O.R.: Culture & Sensitivity - RES 12/26 1999 TRUNK/O.R.: Gram Stain - RES 12/26 1999 TRUNK/O.R.: Culture & Sensitivity - RES 12/26 1999 TRUNK/O.R.: Gram Stain - RES 12/26 1999 TRUNK/O.R.: Culture & Sensitivity - RES 12/26 1999 TRUNK/O.R.: Gram Stain - RES Vital Signs Date Time Temp Pulse Resp B/P B/P Pulse O2 O2 Flow FiO2 Mean Ox Delivery Rate 12/26 1600 100 Nasal 2.0L Cannula 12/26 1600 98.0 85 22 172/60 100 Nasal 2.0L Cannula 12/26 1200 Nasal 2.0L Cannula 12/26 1200 97.9 89 20 150/58 98 Nasal 2.0L Cannula 12/26 0918 93 170/66 12/26 0800 Nasal 2.0L Cannula 12/26 0800 97.8 83 18 160/60 100 Nasal 2.0L Cannula 12/26 0400 100 Nasal 3.0L Cannula 12/26 0000 100 Nasal 3.0L Cannula 12/26 0000 96.9 88 20 172/66 100 Nasal 3.0L Cannula Intake & Output 12/26 1600 Intake Total 1873 Output Total 680 Balance 1193 Intake, IV 1153 Intake, Oral 720 Number 0 Bowel Movements Output, 80 Drainage Output, Urine 600 Exam General Appearance: alert, awake, anxious, severe distress Head: atraumatic, normal appearance Neck: normal inspection, supple Respiratory: decreased breath sounds (decreased breath sounds L>R), rhonchi Cardiovascular: regular rate/rhythm Gastrointestinal: normal bowel sounds, soft, non-tender, no organomegaly Extremities: normal inspection, normal capillary refill Cranial Nerves: normal hearing, normal speech Current Medications: Current Medications Sig/Clementine Start time Last Medication Dose Route Stop Time Status Admin Acetaminophen 1,000 MG Q6P PRN 12/25 2315 AC 12/26 N/A 1 UNIT IV 0918 Albuterol Sulfate 2 PUF Q4 HRS NEEDED PRN 12/25 1345 DC 12/25 INH 1647 Artificial Tears 2 GTT TID 12/26 1723 AC OPH Ascorbic Acid 500 MG DAILY 12/26 0900 CAN PO Ascorbic Acid 500 MG DAILY 12/26 0900 AC 12/26 PO 0918 Budesonide/ 2 PUF BID 12/26 0900 AC 12/26 Formoterol Fumarate INH 0923 Budesonide/ 2 PUF BID 12/25 2100 DC Formoterol Fumarate INH Cholecalciferol 1,000 IU DAILY 12/26 0900 CAN PO Cholecalciferol 1,000 IU DAILY 12/26 0900 AC 12/26 PO 0918 Diltiazem HCl 300 MG DAILY 12/26 0900 CAN PO Diltiazem HCl 300 MG DAILY 12/26 0900 AC 12/26 PO 0918 Guaifenesin 10 ML .STK-MED ONE 12/26 0934 DC PO 12/26 0935 Guaifenesin/ 10 ML ONCE ONE 12/26 1000 DC 12/26 Dextromethorphan PO 12/26 1001 1010 Heparin Sodium 5,000 UNIT Q8 12/26 0600 AC 12/26 (Porcine) SC 1454 Hydrochlorothiazide 25 MG DAILY 12/26 0900 AC 12/26 PO 1030 Hydrocodone Bitart/ 1 TAB Q4P PRN 12/26 1815 DC Acetaminophen PO Hydrocodone Bitart/ 2 TAB Q4P PRN 12/26 1815 AC 12/26 Acetaminophen PO 1815 Hydromorphone HCl 1 MG Q4P PRN 12/25 2315 DC 12/26 IV 1403 Hydromorphone HCl 0.5 MG Q4P PRN 12/25 2315 DC IV Hydromorphone HCl 0.4 MG ONCE ONE 12/25 2300 DC 12/25 IV 12/25 2301 2324 Insulin Aspart 0 TIDAC 12/26 0800 AC 12/26 SC 1815 Insulin Human Regular 0 TIDAC/HS 12/26 0800 CAN SC Loratadine 10 MG DAILY 12/26 0900 CAN PO Loratadine 10 MG DAILY 12/26 0900 AC 12/26 PO 0918 Losartan Potassium 100 MG DAILY 12/26 0900 CAN PO Losartan Potassium 100 MG DAILY 12/26 0900 AC 12/26 PO 0918 Magnesium Sulfate 1 GM Q2H 12/26 0845 DC 12/26 Dextrose/Water 100 ML IV 12/26 1244 1032 Melatonin 9 MG QPM 12/26 2100 AC PO Melatonin 9 MG QPM 12/25 2100 DC PO Montelukast Sodium 10 MG DAILY 12/26 0900 CAN PO Montelukast Sodium 10 MG DAILY 12/26 0900 AC 12/26 PO 0918 Morphine Sulfate 1 MG Q6P PRN 12/26 1815 AC IV Morphine Sulfate 2 MG Q6P PRN 12/26 1600 DC 12/26 IV 1604 Omeprazole 40 MG DAILY AC 12/26 0700 CAN PO Omeprazole 40 MG DAILY AC 12/26 0700 AC 12/26 PO 0627 Rosuvastatin Calcium 20 MG 1700 12/26 1700 AC 12/26 PO 1820 Rosuvastatin Calcium 20 MG 1700 12/25 1700 DC PO Sodium Chloride 1,000 ML Q10H 12/25 2330 DC 12/26 IV 1403 Vancomycin HCl 1,500 MG DAILY 12/26 0900 DC Sodium Chloride 250 ML IV Vancomycin HCl 1,500 MG DAILY 12/26 0900 AC 12/26 Sodium Chloride 250 ML IV 0944 Vancomycin HCl 1,500 MG DAILY 12/25 2200 DC 12/25 Sodium Chloride 250 ML IV 1912 Impression/Plan Impression/Problem List Impression: 72-year-old woman with past medical history of TIA, hyperlipidemia, hypertension , asthma, bronchitis, COPD, MRSA, GERD, OA, chronic back pain status post spinal fusion, [id number] diabetes mellitus, and 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 She underwent removal of surgical hardware and I&D of her lumbar region in the OR ON 12/25. Postoperatively, she was transferred to the ICU for further management. Currently in the ICU the patient is on 2L NC with 100% o2 sat, complaining of severe pain in the back. She has a wound drain with about 5 cc of serosanguineous liquid at her side. h/h stable at 10/30.2. #Surgical Site infection #Hypertensive Urgency #Acute Hypoxic Resp Failure PLAN -Encourage moving as tolerated -Continue supplemental O2, goal of >92%. Currently on 2L -IV vanc -Cardiology consulted, BP has remained high over 160/70. PO meds started this am. Hold anticoagulation. -Pain control with her home regimen: Vicodin BID for moderate pain, Morphine 1g for severe pain PRN -ISS with bedside glucose monitoring FULL CODE DVT PPX: sq heparin Consistent Carbohydrate 3 Problem List: 1. Hypertension 2. Myalgia 3. Chronic pain Pain Ratin Pain Location: surgical site in the back Tomorrow's Labs & Rationales: cbc icu lab bundle Plan DVT/Prophylaxis: mechanical, pharmacological Rolando Abdullahi MD 12/27/17 1244: Attending MD Review Statement Attending Sign Off Attending Cosign Statement: I have: examined this patient, reviewed [employer] EMR data, personally reviewd images, discussd w/resident/PA/[employer]ZEN[employer]KER HELPER, discussed mgmt plan w/pt, agreed w/resident/ PA/LOZENGE MAKER HELPER.
[2017-12-26 12:00] VITALS: BP 150/58
[2017-12-26 16:00] VITALS: BP 172/60
[2017-12-26 23:00] VITALS: BP 144/70
--- NOTE | 2017-12-26 23:31 | Operative Report ---
Operative/Inv Procedure Report Surgery Date: 12/25/17 Name of Procedure: 1) L1-S1 Lumbar And Lumbosacral Region Surgical Site Third Incision, Exploration, Culture, Evacuation Of Fluid Collection, And Post-Debridement Pulse Lavage Irrigation Of All Exposed [place] Soft Tissue And Osseous Structures And Grafted Fusion Mass For Recurrent Postoperative Incisional Dehiscence, Recurrent Purulent Incisional Fluid Drainage And Suggestion Of Possible Associated Underlying Recurrent Purulent Fluid Collection Consistent With Potentially Infected Surgical Site Tissues And Hardware Without Evidence Of Epidural Or Anterior Column Extension Following Complex Index Revision And New Decompression With Extension Of Multicolumn Instrumented Fusion (10/07/2017) Complicated By Late Infection Requiring Two Previous I&Ds (10/29/2017, 12/01/2017) ([place]/ Dania) 2) L2-S1 Removal Of Potentially Infected Posterobilateral Vlpfwyc-Pixdk-Gvz Transvertebral Instrumentation Construct Hadware (Dania/Ke) 3) L2-S1 Exploration Of Posterobilateral Column Lumbar And Lumbosacral Fusion With Visual, Palpation And Mechanical Assessment (Dania/Ke) 4) L1-S1 Lumbar And Lumbosacral Region Initial Section (Initial 20 Square Centimeters) Of Surgical Site Suprafascial, Fascial, And Deep Subfascial Tissue Layer Sharp (Scalpel Dissection), Blunt Mechanical (Curette And Other Instrument Surface Abrasion) And Hydrodynamic (Pulse Lavage) Superficial Tissue Surface Surgical Site Debridement Of All Exposed Tissues Down To The Osseous Level Including Epidermal, Dermal, Subcutaneous, Fascial, Deep Paraspinal Muscular And Both [place] (Spinous Process, Laminar, Lateral Mass And Sacral Alar) As Well As Grafted (Incorporated Bilateral L2-S1 Fusion Mass) Osseous Tissues; Debrided Osseous Dimensions: Initial Section - Initial 20 Square Centimeters Out Of A Total Debrided Osseous Area Of Approximately 80 Square Centimeters (* = Refer To This Procedure Description For Details Of Debridement) (Ke/Dania) 5) L1-S1 Lumbar And Lumbosacral Region Second Section (2nd 20 Square Centimeters) Of Surgical Site Suprafascial, Fascial And Deep Subfascial Tissue Layer Sharp, Blunt Mechanical And Hydrodynamic Superficial Surface Tissue Layer Surgical Site Debridement* Of All Exposed Tissues Down To And Including The Osseous Tissue Level; 2nd Section - 2nd 20 Square Centimeters Out Of A Total Debrided Osseous Area Of Approximately 80 Square Centimeters ( = Refer To This Procedure Description For Details Of Additional Sections Of Debridement) (Ke /Dania) 6) L1-S1 Lumbar And Lumbosacral Region Third Section (3rd 20 Square Centimeters Out Of A Total Of Approximately 80 Square Centimeters) Of Surgical Site Osseous Tissue Level Debridement (Ke/Dania) 7) L1-S1 Lumbar And Lumbosacral Region Fourth Section (4th 20 Square Centimeters Out Of A Total Of Approximately 80 Square Centimeters) Of Surgical Site Osseous Tissue Level Debridement (Ke/Dania) 8) L1-S1 Lumbar (Trunk) Surgical Site Scar Revision With Excision Of Dehiscence Sites As Well As Other Areas Of Compromised, Devitalized, Hypertrophic And Potentially Infected Cutaneous And Subcutaneous Soft Tissue Followed By Adjacent Tissue Advancement And Repair (< 10 Square Centimeter Section Of Primary And Secondary Soft Tissue Defect) (Dania/Ke) Pre-Operative Diagnosis: Primary Surgically Treated Diagnoses: 1) L2-S1 Infected Superficial (Suprafascial) And Deep (Subfascial) Lumbar And Lumbosacral Region Surgical Site (Undergoing Active And Acute Surgical Treatment) 2) Moderate To Severe, Activity And Functionally Limiting Lumbosacral Region Back Pain Post-Operative Diagnosis: Same as preoperative diagnosis list. Estimated Blood Loss: 1000 cc Surgeon/Manager Document Control: UMER MURRELL MD - Primary Admitting Orthopaedic Surgeon ERIC DEMPSEY MD - Primary Consulting Neurological Co-Surgeon Surgical Providers: Regarding Orthopaedic Spine Portion Of Procedure Dictated Here: Umer Murrell M.D. - Orthopaedic Surgeon (Primary Admitting Surgeon) Eric Dempsey M.D. - Neurosurgeon (Co-Surgeon/Manager Document Control Surgeon) See Neurosurgical Operative Report Regarding Surgical Provider Designation For Neurosurgical Spine Portion Of Procedure Anesthesia: general endotracheal tube Monitors: Standard general anesthesia and other perioperative monitoring was performed per anesthesia protocols. Refer to anesthesia records for details. IV Fluids: Standard anesthesia perioperative fluid management was performed without requirement for additional or emergent fluid resuscitation. Refer to anesthesia records for details. Implants: Implants Removed: Medtronic Solara Posterobilateral Dvlpqcb-Qfwma-Iwl Instrumentation Construct 10 x Pedicle Screws 2 x Interconnecting Rods Graft Removed: None. Incorporating Graft Was Superficially Debrided But Otherwise Retained. New Implants Placed: None New Graft Placed: None Urine Output: Refer to anesthesia records for details. Drains: Large bore (15 Macanese) subfascial CLARIBEL drains x 2 to medium vacuum bulb suction reservoirs. Fenestrated portions of drain tubes placed in each posterolateral intertransverse space (lateral gutter) with unfenestrated portion through deep muscle, fascia, subcutaneous tissue, and skin of bilateral inferolateral aspect of surgical site [place] without suture fixation. Specimens: No pathology specimens sent. See Microbiology section for desription of specimens. Microbiology: Multiple suprfascial and deep subfascial labelled swab, fluid and tissue culture specimens as well as small sample of superficially debrided, partially incorporated bone graft from the bilateral fusion mass sent to microbiology for analysis (gram stain, culture and sensitivity) Complications: None Operative/Procedure Note Note: Preoperative Holding Area Assessment/Preparation: The patient was evaluated in the preoperative holding area prior to surgery and no clinical changes or contraindications to surgical intervention were noted compared to the preoperative baseline findings of incisional dehiscence, thin clear drainage without gross purulence and otherwise normal neuromusculoskeletal examination documented on orthopaedic office and clearance general, medical, neurovascular and musculoskeletal evaluations. She denied any significant systemic or constitutional symptoms other than recent minimally productive cough which appears by description to be unrelated to her ongoing lumbar process. She had no physiologic signs or changes to suggest systemic infection. As in the office, the patient was otherwise grossly neurovascularly intact in both lower extremities to standard testing. The patient showed no other signs of respiratory abnormality associated with her moderate, medication-controlled pulmonary history. The surgical plan and site were confirmed with the patient and preoperative paperwork was finalized. The region of the intended surgical site was cleansed, prepped and marked per protocol. The primary surgeon, anesthesia care team members, and operating room staff confirmed the patient identity, surgical procedure, and operative site as well as other clinical details with the patient in an initial documented preoperative confirmation ( awake time out) prior to the administration of significant sedation or anesthesia. The patient's anticoagulant had been held beginning two days prior to admission and her still elevated INR was reversed at optimal rate over the 12 hours prior to surgery using FFP (2 units preoperatively and 1 unit intraoperatively) with adequate correction confirmed prior to proceeding with the final phases of anesthesia and surgical preoperative preparation. The patient had also been on IV Vancomycin prior to surgery and this was held only for the dose to be given on the day of surgery with plans to give it immediately after I&D. Prior to receiving any preoperative medications, she also confirmed her NPO status since midnight. The patient now has both a remote (pulmonary) and current (lumbar surgical site) history of culture documented MRSA infections as well as screening nasal swab culture on recent admission suggesting chronic colonization. Contact precautions were followed throughout the preoperative process and will be continued throughout her hospitalization per hospital protocol. Surgical Procedure: The procedure was performed by Dr. Murrell who was present and served as the primary surgeon for all critical intraoperative and perioperative decisions and interventions. Dr. Dempsey served as communications assistant surgeon throughout all significant phases of the procedure and his expertise was extremely helpful for evaluation and protection of the midline structures. Set-Up/Positioning/Exposure - The patient was brought to the operating room in stable condition and underwent uncomplicated induction of general anesthesia, intubation, and placement of all appropriate monitors, lines and catheters without difficulty. The left upper extremity PICC line was used for primary access with secondary access also established for backup. Additional venous access was established after the patient was anesthetized and before positioning. A right radial arterial line was also placed using fine-wire threading technique after anesthesia and prior to positioning without difficulty and with stable readings documented. Antibiotics were held until all cultures were obtained following complete initial incision, dissection, exposure, drainage of fluid collection and debridement of all involved soft and osseous tissues as well as removal of all posterobilateral hardware. Thereafter, the patient was given 1 gram of IV Vancomycin per standard surgical prophylaxis infusion protocols. Her specific dose will then be adjusted per Infectious Disease consult service therapeutic dosing protocols postoperatively. Steroids (even low dose by anesthesia for airway management and nausea prophylaxis) were avoided in this case because of the patient's active lumbar surgical site infection. The patient was positioned prone on the Leo operating table in standard fashion for the planned procedure of mid- and lower lumbar culture, irrigation and debridement followed by exploration of posterobilateral fusion mass with hardware and possible partial bone graft removal depending on intraoperative findings and then revision of scar using local tissue advancement reconstruction techniques. Care was taken to protect and stabilize the spine during transfer, avoid positions of nerve stretch, pad all pressure points, and support the head without any pressure on the eyes using a foam head rest and head-holding frame. Additional foam padding was used at the iliac crest and thigh pads as well as against the Leo frame because of the patient's body mass and large size. The arms were abducted less than 90 degrees at the shoulders, flexed less than 90 degrees at the elbows and supported on well-padded arm-boards with additional foam padding from the axillary regions to the hands. All pressure points were either fully padded or supported without any contact at all between pads. All intravenous, intraarterial and other sites, points of fixation and line paths were checked, padded and protected prior to continuing. The dressing was removed and was noted to have an intermediate-sized ( approximately 8 cm diameter) area of clear yellow, not otherwise discolored, nonmalodorous, nonpurulent drainage in the middle of the dressing overlying the current primary area of incisional dehiscence. The area of dehiscence remained pinpoint measuring only a few millimeters in the middle of the incision and did not appear to have opened further since the loosely locked running nylon cutaneous suture had been removed in the office a few days ago. The entire length of the previous surgical site incision was carefully inspected. The area of dehiscence did not readily open further even with gentle pressure applied suggesting that the lower layers and surrounding areas of closed surgical site were healing normally. Without significant manipulation there was only a very small amount of drainage evident at the skin level. This was clear yellow and similar to what had been documented at the time of recent office evaluations. The edges of the incision were thickened and erythematous but otherwise normal in the area of dehicense and in the immediately surrounding tissues encompassing the middle third of the incision. The upper third of the incision appeared healthier and better healed without erythema or signs of tissue compromise. Although no longer a site of drainage, the lowest 5 cm of the incision appeared to have partially slughed the skin edge and was not healed optimally with some surrounding erythema. The remainder of the lower third was healing normally. Given the patient's complex course and suboptimal healing potential related to her obesity and comorbidities, it was felt that the optimal outcome with the least adverse effect in this case would be achieved by focal zachary-incisional tissue resection of the middle dehiscence site and lower delayed healong site along with the surrounding erythematous or otherwise compromised tissues. It was felt that this resection would still allow adjacent tissue advancement without excessive tissue tension in this patient given her body habitus. The patient was counseled preoperatively that scarring following this procedure or the need for any further future resection might require more specialized plastic surgical soft tissue advancement techniques. Intermediate level pressure was applied to both sides of the surgical region and this downward pressure was maintained while additional pressure was also directed toward the midline and centered at the level of primary incisional dehiscence in an attempt to evacuate as much retained fluid collection as possible prior to prep and drape. Only a small amount of clear yellowish fluid was expressed. The appearance of this fluid was most consistent with seroma without obvious purulence although a persistently infected seroma was assumed given the patient's history and continuation of drainage now several weeks following I&D as well as culture and sensitivity optimized antibiotic treatment. The primary surgeon, anesthesia care team, and operating room staff again documented the patient identity, surgical procedure, and operative site as well as other clinical details in a final documented confirmation (final time out) prior to beginning the procedure. After sterile prep and drape using standard technique with Gel Prep, two opposing, mirror-image but otherwise symmetrical incisions circumscribing the two focally compromised areas of the patient's previous surgical site (detailed above) as well as the intervening linear sections of the patient's previous incision were mapped and made using a #10 scalpel blade extending longitudinally from the level of the tip of the L1 spinous process to the level of the tip of the S1 spinous process overlying the previous surgical site and intended L2-S1 operative levels. These incisions completely circumscribed and resected all potentially compromised (infected, dehisced, erythematous and hypertrophic) cutaneous and subcutaneous zachary-incisional tissues. In this case the surgical site was not extended. The total length of the elliptical resections requiring reconstruction was approximately 8 cm with the resected width being approximately 1 cm (0.5 cm on each side) for a total resected cutaneous surface area of 8 square centimeters. This dissection and resection was continued down through the subcutaneous layer to the level of the fascia in a tapering fashion beginning approximately 0.5 cm from the incisional edge in the regions of resection at the cutaneous level and beveling toward the midline to resect a thin and steadily decreasing thickness of subcutaneous tissue leaving adequate thickness of suprafascial tissue wall in the deep subcutaneous layer just above the fascia so as to maintain fascial vascularity and soft tissue coverage. All superficial suture material was removed. Hemostasis was achieved using Bovie electrocautery beginning with the incision and continuing throughout the procedure with settings appropriate to each progressive level. The retained margins of the resection appeared normal with good blood supply and no evidence of further compromise or infection. Due to the patient's body habitus there was extensive fat within the subcutaneous layer and evidence of fat necrosis particularly near the dehiscence sites. Following edge resection there was no further suggestion of fat necrosis, devascularized or nonviable tissues however, although normal in appearance, the concentration of fat within the subcutaneous layer was still quite extensive. During superficial debridement a small amount of clear yellow fluid collection consistent with infected superficial seroma was evident in the area underlying the now resected dehiscence site in the middle region of the surgical site. This fluid collection was only a few milliliters in volume. This small specimen was collected in a syringe and sent to microbiology for culture. Because of the small sample size, a swab culture was also sent of the region where this fluid collection was found following edge debridement. The fluid collection did not extend beyond the layer of tissue resected from both lateral obregon. The new tissue ob[place] exposed by the resection showed no sign of infection, fluid collection or abnormal tissue. The fluid collection did appear to extend down to the fascial layer which was slightly open and not fully healed by palpation despite intact suture repair and partial granulation in this region. This overall appearance suggests aearly formation of a sinus tract suggesting possible deep infection source. It should be noted that during this initial subcutaneous dissection, there was even more abnormal fluid collection found in the upper aspect of the surgical site at approximately the L1-L2 level. This fluid was more cloudy, whitish in color and appeared purulent with a distinct brief abnormal odor detected. This fluid collection was separately cultured. It did appear to communicate with the fascia but did not extend through it and the fascial layer appeared healed with intact suture repair and normal granulation tissue without palpable opening or sinus tract in this upper region. Since similar fluid was also found below the fascia in this same region (see below), it is presumed that there was a small sinus connecting the subfascial and suprafascial space in this region however such a communicating tract was not readily evident by palpation even using standard surgical instruments. All other fluid in the superficial space was minimal, thin, serous and appeared consistent with normal soft tissue and fatty tissue exudate in this obese patient. Given the suggestion of suprafascial infection with likely subfascal communication, preliminary antibiotic infused bulb irrigation was performed of the superficial exposed tissues (so as to minimize the possibility of superficial to deep seeding) before proceeding with fascial dissection but extensive irrigation and debridement was deferred until all layers were exposed and could be addressed simultaneously given that it appeared likely that all layers were equally involved. The fascia was exposed in the midline taking care to preserve as much soft tissue coverage and vascularization as possible to the fascial layer. This was achieved with superficial coverage preserved throughout the length of the dissection all the way to the fascial edge on both sides. Dorsal to ventral and lateral to medial directed manual pressure was applied to the midline fascia and paramedian overlying soft tissues in an attempt to express any subfascial fluid through the previously identified middle section fascial defect underlying the dehiscence as well as in the area of any as yet unidentified fascial opening that might be present in the upper end of the fascial closure in the region of unexpected purulent fluid collection. No fluid efflux was evident in the middle section at the site of fascial dehiscence and no even small amount of fluid efflux or suggestion of direct communication was noted in the upper fascial region. The lower thrid of the fascia appeared to be well healed. As noted previously there was a small opening in the fascia measuring approximately 5 cm in length by digital dissection. The suture repair appeared intact and so it is assumed that the tissues retracted or possibly necrosed at the edge to cause the sinus formation and prevent healing. The upper and lower thirds of the fascial repair were intact and appeared to be healing normally by visual inspection, palpation and manual testing. Attempt was made to digitally dissect through the midline fascial repair in the upper and lower thirds but it appeared to be healing with no obvious openings or defects. All fascial sutures were removed and even then there was no evidence of fascial dehiscence or spread except in the already open middle section which did not readily open further until manually digitally dissected which required a fair amount of dissecting force similar to that required for healing tissues at this postoperative stage. Once sutures were removed digital dissection was able to separate the two sides of the fascial repair requiring approximately equal force of dissection throughout the length of the surgical site suggesting at least reasonably normal healing of the lateral deep tissue with failure to heal primarily isolated to the midline. Even with all fascial sutures removed and the fascia dissected open throughout its length there was no obvious fluid efflux from the subfascial compartment with pressure applied to the bilateral fascia as described above. It should be noted that upon opening the fascia at the superior end of the surgical site there was an efflux of a small volume of purulent appearing cloudy , white fluid which appeared to be from the supralaminar space on the patient's left side adjacent to the L1 spinous process. This fluid was again malodorous similar to that noted with the suprafascial collection. Swab and fluid cultures were again sent of this subfascial collection. There was no suggestion of spinnous process osteomyelitic chaange. Although this area obviously communicates with the rest of the subfascia space, it appeared to be isolated to this upper loculated area without obvious extension of purulent material to the middle or lower regions. This collection did approximate the upper end of the left side of the posterolateral instrumentation construct. This dissection was continued into the subfascial layer where the muscle also appeared to have granulated reasonably well, required fairly forceful digital dissection to elevate the muscle from the underlying osseous structures and hardware, and showed no sign of devitalized, dysvascular, compromised or grossly infected muscular side-wall tissues on inspection. With dissection completed down to the spinal osseous and laminectomy level in the midline and over the hardware to the lateral fusion mass on both sides, deep Gelpi retractors were placed for optimal exposure. There was a small volume of deep clear yellow fluid (~5 cc) without evidece of purulence which was collected in a syringe and sent to microbiology for culture. There was also a small amount of fibrinous material which did not appear to be normal early granulation tissue but was also not grossly purulent. This material was mostly overlying the midline decompression site but did appear to extend laterally to the hardware in the upper half of the construct more on the left than the right. There was no obvious extension to the bone graft or previous fusion mass. This tissue was collected along with some of the superficial tissue of the deep side [place] and granulation overlying the hardware and sent as microbiological tissue specimen. With the fibrinous material removed, the underlying decompressed canal was inspected and the thecal sac was found to be well covered (even moreso than at the last surgery) with healthy granulation tissue without any direct exposure of neural elements or dura in any region. There was no lateral epidural extension of fibrinous material and no exudate or drainage from the epidural spaces which were filled bilaterally with healthy granulation tissue with no sign of exudate to suggest anterior column or epidural sequestrum or involvement. Therefore, no epidural dissection, exploration or neurolysis was felt to be indicated. A combination of sharp (scalpel), rongeur (Leksell) and blunt mechanical (large curettes and Pearce elevator) dissection was used to remove any potential compromised or infected superficial soft or osseous tissue from all exposed surfaces of the surgical site obregon, the spinous processes, laminae, facets, sacral ala and fusion masses bilaterally. After sharp debridement of any devitalized tissues as outlined above, the margins of both the superficial and deep layers were further debrided using blunt mechanical technique with a large straight curette down to healthy, viable and well vascularized tissue at all levels. Some of this mechanically debrided materal was sent for tissue culture. The hardware was carefully inspected bilaterally and there was no evidence of purulent material in the region of or entrapped within the metal-metal or metal- bone interfaces of the instrumentation. This was true even in the upper area on the left where the hardware had approximated the small purulent fluid collection. The abnormal granulation tissue had been previously removed and sent for culture with no additional abnormal tissue or fluid found around the hardware. The construct was manually tested and found to be intact, rigid and stable with no sign of loosening at either the screw-mary or screw-bone interfaces. The cap nuts were removed each ipsilateral screw pair was tested with a distractor demonstrating only toggling motion at L5-S1 and L2-L3 ( slightly more on the left than on the right) consistent with this early healing timepoint in this patient with limited healing potential related to numerous comorbidities. The L4-L5 and L3-L4 levels were more rigid as expected given the maturity of those levels of fusion several years after previous surgery. There was no suggestion of screw loosening within the screw holes at any site on intial mechanical testing. The rods were removed and the fusion mass was visually inspected. The entire arthrodesis on both sides appeared to be covered with normal and healthy-appearing granulation tissue. There was no abnormal tissue, adjacent abnormal sidewall tissue, overlying fluid collection or efflux of fluid from the fusion mass to suggest any deep involvement of infection. The area between each screw set as well as the bilateral fusion mass out to the level of the tips of the transverse processes and the lateral extent of the surgical arthrodesis was debrided down to visible fusion mass using a Leksell rongeur and straight curettes. The debrided tissue appeared normal but was included in the tissue culture specimen in any case. No loose or unincorporated graft material was identifed or required resection. The fusion mass appeared to be healing well with normal debrided surface bone which was soft and not yet fully corticated (as expected for this early timepoint following her index fusion surgery) but otherwise appeared to be healthy, well incorporated and fairly confluent without obvious gaps or defects. The posterobilateral coverage of the intertransverse zones appeared to be optimal without sign of either resorption or other loss (previous debridements, etc.) of graft resulting in paucity of fusion material for arthrodesis. Each ipsilateral screw set was again tested using the distractor. With the rods removed and under direct visualization the above noted toggling motion at L5-S1 and L2-L3 (more on the left than the right) could be better appreciated but still did not appear to be grossly unstable. The advantages of hardware removal to optimize potential for irradication of infection outweighed the potential risks of symptomatic pseudoarthrosis in this case and so the screws were removed using standard technique. All screws were removed easily with reasonable but somewhat decreased explantation torque applied compared to the final implantation torque which I recall at the time of implantation. This is most likely due to the patient's osteoporosis (possibly exacerbated by mechanical distractive screw testing earlier during this procedure) and less likely due to infection although the latter cannot be ruled out. All explanted hardware was sent to pathology for documentation per hospital protocol. There was no abnormal tissue or fluid evident at any screw hole once all screws had been removed. Final debridement of the fusion mass was performed with currettes and the debrided material was included with the deep tissue specimen for culture. Each screw site was debrided superficially with the drill and into the pedicle and verterbal body using straight curettes with no sign of deep osseous extention of infection evident. Care was taken to avoid pedicle or vertebral wall breach particularly given this patient's osteoporotic status. The fusion mass was then carefully inspected bilaterally and all bone graft appeared to be incorporating well. There was no retained lose or unincorporated bone graft (all of which had been removed at her previous debridements) and in fact the fusion appeared to be confluent without obvious defect even with toggling motion on distraction. The tissue wall margins throughout the length of the surgical site appeared normal with good blood supply and no evidence of gross compromise or infection folowing completion of this multistage edge resection, surface debridement and initial irrigation. There was no residual abnormal appearing tissue or fluid in the region of the hardware or fusion mass following this stage of the procedure. Vancomycin 1 gram IV was given once all culture specimens were collected. All tissue layers of the entire extent of the surgical site were thoroughly cleaned using hydrodynamic pulse lavage technique with 12 liters of antibiotic irrigation. Care was taken to avoid direct pulse lavage application to the region of the laminectomy opening which was later separately irrigated with more gentle but still high volume (500 cc) and thorough bulb irrgation. At intervals throughout the procedure the retractors were removed so that the obregon of the surgical site behind them could be effectively debrided and pulse irrigated. Once the irrigation of all tissues was complete, the suprafascial, fascial and deep tissue margins were again checked and found to be viable with reasonably good color, mechanical integrity and vascularity. There was no evidence of persistently infected or compromised tissue in any region or level of the surgical site at the end of the procedure. Closure/Recovery - The surgical site was thoroughly irrigated and hemostasis was carefully achieved prior to closure. FloSeal (5 cc) was placed in the lateral epidural spaces primarily In the region of the screw holes on each side to optimize hemostasis. Dual large bore subfascial CLARIBEL drains were placed with one on each side in the lateral intertransverse spaces and carried out through the inferior wall of each side of the surgical site using standard "outside=-in" technique through small bilateral "stab" incisions made with a #11 scalpel blade. Initial counts were correct prior to closure. The deep lumbar muscular layer was reapproximated using #1 Maxon interrupted suture technique so as to minimize open subfascial space for hematoma collection. The fascial layer was reapproximated in a [id number] closure using #0 Maxon interrupted, figure-of- eight suture technique. The deep suprafascial closure was performed with #0 and #2-0 Maxon interrupted, simple suture technique. The superficial subcutaneous layer was closed with #2-0 and #3-0 Maxon inverted, interrupted, simple sutures. The skin was closed using maya with the skin edges everted. A standard, sterile Xeroform dressing was placed, covered with folded fluff 6x6 gauze and ABD pads and held using Cover-Roll with good surgical site and bilateral drain site coverage. All counts were correct prior to removing the drapes. The patient was turned into the supine position on the hospital bed using careful log-roll technique, avoiding torsional stress and stabilizing the lumbar region during transfer. She was then extubated in the operating room without difficulty. Recovery Room Assessment: The patient was transported to the recovery room in stable condition where gross neurological examination showed normal function on initial recovery from anesthesia with no deficits or worsening compared to her pre-operative assessments. The patient will follow the usual postoperative protocol for lower lumbar incision, drainage, debridement, exploration of fusion and removal of hardware for dehiscence and persistent infection. Some adjustments and accommodations will likely need to be made to the standard protocol because of her complex lumbar surgical history, multiple medical comorbidities and possible need to change antibiotic regimen. Close perioperative monitoring has been recommended preoperatively by cardiology and medicine consultation services related to history of hemodynamic and pulmonary issues following prior surgeries , continued treatment for history of previous right upper extremity DVT (now resolved on last doppler ultrasound study) as well as her multiple comorbidities. Anesthesia has reinforced those recommendations postoperatively given her intraoperative blood loss and transient pressor requirements intraoperatively. I concur with all of these recommendations and the patient will be admitted to the ICU for appropriate monitoring and care for the first 48 hours. Infectious disease service will be consulted on POD #1. She will be continued on Vancomycin until culture and sensitivity microbiology results are available at which point any required change in antibiotic regimen will be determined by the infectious disease consult service and followed. She may need additional transfusions and her hemoglobin and hematocrit will be monitored daily until stable. Her postoperative care plan will include early mobilization, IV (then rapidly weaning to oral) medication pain control, and discharge planning starting on postoperative day #2 or #3 once culture results have been evaluated and antibiotic treatments optimized. The plan will be to to return her to home however it is equally likely that she will require a short inpatient rehabilitation program until she is independent with normal home activities of daily living as her is functionaly limited as well and she does not have any other help at home. She will be restarted on anticoagulation once her drains have been removed or possibly the day before drain removal if on or after POD #3 depending on clinical assessments. This will best balance the mild risks of subtherapeutic final phase DVT treatment versus the considerable risk (based on previous history in this patient) of hemorrage or other adverse event related to starting anticoagulation durign the early postoperative period. Given the complex nature of her lumbar condition requiring removal of posterobilateral hardware prior to documentation of mature fusion formation, a custom molded TLSO brace will be ordered and applied as soon as the patient can mobilize sufficiently to be fitted for it and will be used consistently whenever she is sitting up in or is out of bed. It is not required when lying flat> An external pulsed electromagnetic field spinal fusion osteogenesis stimulator has already been dispensed and her will bring this in to begin use in the hospital beginning on POD #3 and continuing for at least the next several months until solid arthrodesis and symptomatic improvement can be documented. All other postoperative plans and protocols will remain unchanged and will be followed as fully detailed in previous office records, operative reports and hospital notes. Discharge Disposition: PACU CC: Dania HARRIS,Umer Rose; Ke HARRIS,Eric Lang; Alfred HARRIS,Eron Kang
--- NOTE | 2017-12-26 23:31 | PN- Orthopedic ---
Surgical Brief Attending Note Brief Attending Note: Entire note addended to PA note. Deleted by system. Time does not allow repeat documentation. Patient doing well POD #1. Mobilize by AM. Will consder dressing change in AM. Continue IV ABX. Continue ICU monitoring Consider transfer to tele in AM.
[2017-12-27 05:51] LABS: ABSOLUTE BASOPHIL COUNT 0.1 /CUMM (0.0-0.2); ABSOLUTE EOSINOPHIL COUNT 0.5 /CUMM (0.0-0.7); ABSOLUTE GRANULOCYTE CT 7.7 /CUMM (1.4-6.5); ABSOLUTE LYMPH COUNT 2.1 /CUMM (1.2-3.4); ABSOLUTE MONOCYTE COUNT 1.8 /CUMM (0.10-0.60); BASOPHIL % 0.5 % (0.0-2.0); EOSINOPHIL % 4.1 % (0-5); GRANULOCYTE % 63.1 % (42.2-75.2); HEMATOCRIT 26.1 % (37-47); MEAN CORPUSCULAR HGB 27.5 PG (27.0-31.0); MEAN CORPUSCULAR HGB CONC 32.9 G/DL (33.0-37.0); MEAN CORPUSCULAR VOLUME 83.4 FL (81.0-99.0); MEAN PLATELET VOLUME 8.2 FL (7.4-10.4); PLATELET COUNT 222 /CUMM (130-400); RBC DISTRIBUTION WIDTH 14.6 % (11.5-14.5); RED BLOOD CELL CT 3.12 /CUMM (4.20-5.40); WHITE BLOOD CELL COUNT 12.2 /CUMM (4.8-10.8)
--- NOTE | 2017-12-27 06:48 | PN- Orthopedic ---
Subjective Subjective: POD#2 S/P REMOVAL OF HARDWARE INFECTED LUMBAR WOUND PRIMARY ISSUES PAIN CONTROL 01/22NOW DENEIS CP, SOB, NO N+V Objective Vital Signs and I&Os Vital Signs Date Time Temp Pulse Resp B/P B/P Pulse O2 O2 Flow FiO2 Mean Ox Delivery Rate 12/27 0400 95 Room Air Room Air 12/27 0000 98 Room Air Room Air 12/26 2300 98.0 84 22 144/70 95 Room Air Room Air 12/26 2000 97 Nasal 1.0L Cannula 12/26 1600 100 Nasal 2.0L Cannula 12/26 1600 98.0 85 22 172/60 100 Nasal 2.0L Cannula 12/26 1200 Nasal 2.0L Cannula 12/26 1200 97.9 89 20 150/58 98 Nasal 2.0L Cannula 12/26 0918 93 170/66 12/26 0800 Nasal 2.0L Cannula 12/26 0800 97.8 83 18 160/60 100 Nasal 2.0L Cannula Intake & Output 12/27 0800 12/27 0000 14 1600 12/26 0800 12/26 0000 12/25 1600 Intake Total 480 2248 413 8954 314 Output Total 950 050 921 7189 Balance -470 1193 483 520 314 Intake, Blood 314 Product Intake, IV 1665 645 5822 Intake, Oral 480 720 50 0 Number 0 0 0 0 Bowel Movements Output, 50 80 90 130 Drainage Output, Other 1000 Output, Urine 900 600 250 150 Patient 173 lb Weight Weight Reported by Patient Measurement Method Physical Exam: CV: RRR LUNGS: CLEAR ABDz: SOFT, +BS EXT: WARM DISTAL CMS INATCT BILAT LE MODERATE AMT DRAINAGE LUMBAR DRSG CLARIBEL: CONTINUED SANGUINOUS OUTPUT Assessment/Plan Assessment/Plan S/P I&D AND REMOVAL HARDWARE LUMBAR WOUND SEPSIS PLAN MORPHINE 10MG IV NOW WILL TITRATE FOR FCOMFORT OOB TO CHIAR TODAY F/U AM LABS F/U OR CX'S CONT IV VANCO ADVANCE DIET TOLERATED DRSG CHANGE LATER TODAY Core Measures Venous Thromboembolism VTE Risk Factors Age>40 No Mechanical VTE Prophylaxis d/t N/A MechProphylax Ordered No VTE Pharm Prophylaxis d/t NA PharmProphylax ordered
[2017-12-27 08:00] VITALS: BP 136/54
--- NOTE | 2017-12-27 08:04 | PN- Resident CRCU ---
Jeffrey HARRIS,Amina 12/27/17 0803: Subjective HPI/CRCU Issues: Lumbar spine wound infection patient seen and examined. States feeling lousy. Complains of persistent back and buttock pain. Requests for a breathing treatment. 24 Hour Events: No acute events overnight. Objective Vital Signs & I&O Last 8 Hrs of Vitals and I&O: . Exam General Appearance: alert, awake, mild distress Head: atraumatic, normal appearance Respiratory: chest non-tender, anterior chest cta Cardiovascular: regular rate/rhythm Gastrointestinal: soft, non-tender Extremities: no edema Cranial Nerves: normal hearing, normal speech Skin: intact, normal color, warm/dry Skin Temp/Moisture Exam: Warm/Dry Sepsis Skin Exam (color): Normal for Ethnicity Current Medications: Current Medications Sig/Clementine Start time Last Medication Dose Route Stop Time Status Admin Acetaminophen 1,000 MG Q6P PRN 12/25 2315 AC 12/26 N/A 1 UNIT IV 0918 Albuterol Sulfate 2 PUF Q4 12/26 2200 AC 12/27 INH 0211 Artificial Tears 2 GTT TID 12/26 1723 AC 12/27 OPH 0818 Ascorbic Acid 500 MG DAILY 12/26 0900 AC 12/27 PO 0816 Budesonide/ 2 PUF BID 12/26 0900 AC 12/27 Formoterol Fumarate INH 0817 Cholecalciferol 1,000 IU DAILY 12/26 0900 AC 12/27 PO 0816 Ciprofloxacin 2 GTT Q2 12/27 1000 UNVr OPH Diltiazem HCl 300 MG DAILY 12/26 0900 AC 12/27 PO 0817 Guaifenesin 10 ML ONCE ONE 12/26 2215 DC 12/26 PO 12/26 2216 2220 Guaifenesin/ 10 ML ONCE ONE 12/26 1000 DC 12/26 Dextromethorphan PO 12/26 1001 1010 Heparin Sodium 5,000 UNIT Q8 12/26 0600 AC 12/27 (Porcine) SC 0612 Hydrochlorothiazide 25 MG DAILY 12/26 0900 AC 12/27 PO 0816 Hydrocodone Bitart/ 1 TAB Q4P PRN 12/26 1815 DC Acetaminophen PO Hydrocodone Bitart/ 2 TAB Q4P PRN 12/26 1815 AC 12/27 Acetaminophen PO 0610 Hydromorphone HCl 1 MG ONCE ONE 12/27 0600 DC 12/27 IV 12/27 0601 0852 Hydromorphone HCl 1 MG Q4P PRN 12/25 2315 DC 12/26 IV 1403 Hydromorphone HCl 0.5 MG Q4P PRN 12/25 2315 DC IV Insulin Aspart 0 TIDAC 12/26 0800 AC 12/26 SC 1815 Loratadine 10 MG DAILY 12/26 0900 AC 12/27 PO 0816 Losartan Potassium 100 MG DAILY 12/26 0900 AC 12/27 PO 0817 Magnesium Sulfate 1 GM Q2H 12/26 0845 DC 12/26 Dextrose/Water 100 ML IV 12/26 1244 1032 Melatonin 9 MG QPM 12/26 2100 AC 12/26 PO 2043 Montelukast Sodium 10 MG AT BEDTIME 12/27 2100 AC PO Montelukast Sodium 10 MG DAILY 12/26 0900 DC 12/26 PO 0918 Morphine Sulfate 10 MG ONCE ONE 12/27 0600 CAN IV 12/27 0601 Morphine Sulfate 2 MG Q6P PRN 12/26 2030 AC IV Morphine Sulfate 1 MG ONCE ONE 12/26 2030 DC 12/26 IV 12/26 2031 2036 Morphine Sulfate 1 MG Q6P PRN 12/26 1815 DC 12/26 IV 1953 Morphine Sulfate 2 MG Q6P PRN 12/26 1600 DC 12/26 IV 1604 Nystatin 1 ALVARO TID 12/26 2100 AC 12/27 TOP 0818 Omeprazole 40 MG DAILY AC 12/26 0700 AC 12/27 PO 0610 Rosuvastatin Calcium 20 MG 1700 12/26 1700 AC 12/26 PO 1820 Sodium Chloride 2 SPRAY Q4P PRN 12/26 2215 AC 12/27 KIM 0818 Sodium Chloride 1,000 ML Q10H 12/25 2330 DC 12/26 IV 1403 Vancomycin HCl 1,500 MG DAILY 12/26 0900 AC 12/26 Sodium Chloride 250 ML IV 0944 Impression/Plan Impression/Problem List Impression: 72-year-old woman with past medical history of TIA, hyperlipidemia, hypertension , asthma, bronchitis, COPD, MRSA, GERD, OA, chronic back pain status post spinal fusion, [id number] diabetes mellitus, and 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 She underwent I&D and lumbar hardware removal on 12/25. Postoperatively, she was recovered in the ICU. Assessment: 1. Surgical site wound infection 2. History of Hypertension 3. History of MRSA Plan: * Stable to be downgraded to telemetry * Continue IV Vancomycin * Follow up final OR cultures. No growth so far. * Pain control with IV morphine q6 prn * Cipro eye drops for conjunctivitis * Coumadin can be restarted as per surgical team * Insulin SS and Accucheks * Diet: Diabetic * DVT Prophylaxis: SC heparin * Code: Full Code Problem List: 1. Surgical wound infection Pain Ratin Tomorrow's Labs & Rationales: CBC, BEP, Mg Plan DVT/Prophylaxis: mechanical, pharmacological Rolando Abdullahi MD 12/27/17 1244: Attending MD Review Statement Attending Sign Off Attending Cosign Statement: I have: examined this patient, reviewed [facility] EMR data, personally reviewd images, discussd w/resident/PA/BID MANAGER, discussed mgmt plan w/anna marie, discussed mgmt plan w/pt, agreed w/resident/PA/BID MANAGER, amended to note. Reason for Cont Hospitalizatn: Post operative management. Other Findings: The patient has been downgraded to telemetry and no longer requires ICU care. We will continue all current medications and supportive care. Will follow up consultants recommendations. We will add Colace 100 mg p.o. at bedtime as needed for constipation. The patient will be skin incentive spirometry to help with mucociliary clearance. She will continue on her nebulizer treatments and inhalers. DVT prophylaxis at all times. Continue all supportive care.
--- NOTE | 2017-12-27 08:46 | PN- Infect Dx ---
Subjective Subjective: Afebrile. She complains of back pain. She also notes irritation in both eyes Objective Last 24 Hrs of Vital Signs/I&O Vital Signs Date Time Temp Pulse Resp B/P B/P Pulse O2 O2 Flow FiO2 Mean Ox Delivery Rate 12/27 0817 83 136/54 12/27 0400 95 Room Air Room Air 12/27 0000 98 Room Air Room Air 12/26 2300 98.0 84 22 144/70 95 Room Air Room Air 12/26 2000 97 Nasal 1.0L Cannula 12/26 1600 100 Nasal 2.0L Cannula 12/26 1600 98.0 85 22 172/60 100 Nasal 2.0L Cannula 12/26 1200 Nasal 2.0L Cannula 12/26 1200 97.9 89 20 150/58 98 Nasal 2.0L Cannula 12/26 0918 93 170/66 Intake & Output 12/27 1600 12/27 0800 12/27 0000 Intake Total 1120 480 Output Total 1085 950 Balance 35 -470 Intake, Oral 1120 480 Number 0 0 Bowel Movements Output, 35 50 Drainage Output, Urine 1050 900 Physical Exam Other Physical Findings: She appears mildly uncomfortable but in no acute distress HEENT mild conjunctival injection bilaterally Lungs are clear Heart regular rhythm with no murmur Back dressing intact Extremities no cyanosis, clubbing or edema; PICC in the left upper extremity with no inflammation at the site Castillo catheter remains in place Results Last 24 Hours of Lab Results: Laboratory Tests 12/27 0531 Chemistry Sodium (137 - 145 mmol/L) 139 Potassium (3.5 - 5.1 mmol/L) 3.9 Chloride (98 - 107 mmol/L) 103 Carbon Dioxide (22 - 30 mmol/L) 28 Anion Gap (5 - 16) 8 BUN (7 - 17 mg/dL) 8 Creatinine (0.5 - 1.0 mg/dL) 0.6 Estimated GFR (>60 ml/min) > 60 Glucose (65 - 99 mg/dL) 134 H Calcium (8.4 - 10.2 mg/dL) 8.1 L Phosphorus (2.5 - 4.5 mg/dL) 2.8 Magnesium (1.6 - 2.3 mg/dL) 1.6 Total Bilirubin (0.2 - 1.3 mg/dL) 0.3 AST (14 - 36 U/L) 17 ALT (9 - 52 U/L) 36 Albumin (3.5 - 5.0 g/dL) 2.6 L Hematology CBC w Diff NO MAN DIFF REQ WBC (4.8 - 10.8 /CUMM) 12.2 H RBC (4.20 - 5.40 /CUMM) 3.12 L Hgb (12.0 - 16.0 G/DL) 8.6 L Hct (37 - 47 %) 26.1 L MCV (81.0 - 99.0 FL) 83.4 MCH (27.0 - 31.0 PG) 27.5 MCHC (33.0 - 37.0 G/DL) 32.9 L RDW (11.5 - 14.5 %) 14.6 H Plt Count (130 - 400 /CUMM) 222 MPV (7.4 - 10.4 FL) 8.2 Gran % (42.2 - 75.2 %) 63.1 Lymphocytes % (20.5 - 51.1 %) 17.4 L Monocytes % (1.7 - 9.3 %) 14.9 H Eosinophils % (0 - 5 %) 4.1 Basophils % (0.0 - 2.0 %) 0.5 Absolute Granulocytes (1.4 - 6.5 /CUMM) 7.7 H Absolute Lymphocytes (1.2 - 3.4 /CUMM) 2.1 Absolute Monocytes (0.10 - 0.60 /CUMM) 1.8 H Absolute Eosinophils (0.0 - 0.7 /CUMM) 0.5 Absolute Basophils (0.0 - 0.2 /CUMM) 0.1 Last 24 Hours of Chucky Results: OR cultures December 25 remain negative Urine culture December 25 negative Assessment/Plan ID Impression: Stable, status post removal of hardware from her spine 2 days ago for a presumably persistent surgical site infection, with continued drainage despite her most recent I&D over 3 weeks prior to admission, with no vic purulent material reported around the fusion site but with an area of purulent material apparently identified in the muscle layer. She remains afebrile with a mild leukocytosis on Vancomycin, with her OR cultures so far negative. Her eye irritation may suggest conjunctivitis and she can be treated for this. Suggestion: 1. Follow-up final OR cultures 2. Remove Castillo catheter 3. Topical antibiotic eyedrops 4. Repeat ESR 5. Continue Vancomycin
--- NOTE | 2017-12-27 14:23 | PN- Cardiology ---
Subjective Subjective: Clinically stable from cardiac perspective. Day #2 postop. No new issues or arrhythmias. Back pain noted Objective Vital Signs and I&Os Vital Signs Date Time Temp Pulse Resp B/P B/P Pulse O2 O2 Flow FiO2 Mean Ox Delivery Rate 12/27 1115 Room Air 12/27 0817 83 136/54 12/27 0400 95 Room Air Room Air 12/27 0000 98 Room Air Room Air 12/26 2300 98.0 84 22 144/70 95 Room Air Room Air 12/26 2000 97 Nasal 1.0L Cannula 12/26 1600 100 Nasal 2.0L Cannula 12/26 1600 98.0 85 22 172/60 100 Nasal 2.0L Cannula Intake & Output 12/27 1600 12/27 0800 12/27 0000 12/26 1600 12/26 0800 12/26 0000 Intake Total 7151 555 2739 823 1800 Output Total 1085 950 834 573 0068 Balance 35 -470 1193 483 520 Intake, IV 0080 240 8839 Intake, Oral 1120 480 720 50 0 Number 0 0 0 0 0 Bowel Movements Output, 35 50 80 90 130 Drainage Output, Other 1000 Output, Urine 1050 900 600 250 150 Physical Exam: General Appearance: well developed/nourished, alert, awake, oriented Head: normal HEENT: Normal Neck: supple, JVP normal, carotid upstrokes normal bilaterally, no masses or thyromegaly Respiratory: chest non-tender, clear to auscultation and percussion bilaterally Cardiovascular: regular rate/rhythm, normal S1, S2, 1/6 systolic murmur Abdomen: normal bowel sounds, soft, non-tender Extremities: normal inspection, no edema Vascular: Pulses are 2+ and equal bilaterally Neurologic: Grossly normal/nonfocal Current Medications: Current Medications Sig/Clementine Start time Last Medication Dose Route Stop Time Status Admin Acetaminophen 1,000 MG Q6P PRN 12/25 2315 AC 12/26 N/A 1 UNIT IV 0918 Albuterol Sulfate 3 ML Q4P PRN 12/27 1130 AC INH Albuterol Sulfate 2 PUF Q4 12/26 2200 AC 12/27 INH 0211 Artificial Tears 2 GTT TID 12/26 1723 AC 12/27 OPH 1407 Ascorbic Acid 500 MG DAILY 12/26 0900 AC 12/27 PO 0816 Budesonide/ 2 PUF BID 12/26 0900 AC 12/27 Formoterol Fumarate INH 0817 Cholecalciferol 1,000 IU DAILY 12/26 0900 AC 12/27 PO 0816 Ciprofloxacin 2 GTT Q4H 12/29 1200 AC OPH 01/03 0801 Ciprofloxacin 2 GTT Q2 12/27 1000 AC 12/27 OPH 12/29 0801 1407 Diltiazem HCl 300 MG DAILY 12/26 0900 AC 12/27 PO 0817 Docusate Sodium 100 MG DAILY NEEDED PRN 12/27 1345 AC PO Guaifenesin 10 ML ONCE ONE 12/26 2215 DC 12/26 PO 12/26 2216 2220 Heparin Sodium 5,000 UNIT Q8 12/26 0600 AC 12/27 (Porcine) SC 1406 Hydrochlorothiazide 25 MG DAILY 12/26 0900 AC 12/27 PO 0816 Hydrocodone Bitart/ 1 TAB Q4P PRN 12/26 1815 DC Acetaminophen PO Hydrocodone Bitart/ 2 TAB Q4P PRN 12/26 1815 AC 12/27 Acetaminophen PO 1404 Hydromorphone HCl 1 MG ONCE ONE 12/27 1115 DC 12/27 IV 12/27 1116 1126 Hydromorphone HCl 1 MG ONCE ONE 12/27 0600 DC 12/27 IV 12/27 0601 0852 Hydromorphone HCl 1 MG Q4P PRN 12/25 2315 DC 12/26 IV 1403 Hydromorphone HCl 0.5 MG Q4P PRN 12/25 2315 DC IV Insulin Aspart 0 TIDAC 12/26 0800 AC 12/26 SC 1815 Loratadine 10 MG DAILY 12/26 0900 AC 12/27 PO 0816 Losartan Potassium 100 MG DAILY 12/26 0900 AC 12/27 PO 0817 Magnesium Sulfate 1 GM Q2H 12/27 1000 DC 12/27 Dextrose/Water 100 ML IV 12/27 1359 1200 Melatonin 9 MG QPM 12/26 2100 AC 12/26 PO 2043 Montelukast Sodium 10 MG AT BEDTIME 12/27 2100 AC PO Montelukast Sodium 10 MG DAILY 12/26 0900 DC 12/26 PO 0918 Morphine Sulfate 10 MG ONCE ONE 12/27 0600 CAN IV 12/27 0601 Morphine Sulfate 2 MG Q6P PRN 12/26 2030 AC IV Morphine Sulfate 1 MG ONCE ONE 12/26 2030 DC 12/26 IV 12/26 2030 2036 Morphine Sulfate 1 MG Q6P PRN 12/26 1815 WA 12/26 IV 1953 Morphine Sulfate 2 MG Q6P PRN 12/26 1600 DC 12/26 IV 1604 Nystatin 1 ALVARO TID 12/26 2100 12/27 TOP 1407 Omeprazole 40 MG DAILY AC 12/26 0700 AC 12/27 PO 0610 Rosuvastatin Calcium 20 MG 1700 12/26 1700 AC 12/26 PO 1820 Sodium Chloride 2 SPRAY Q4P PRN 12/26 2215 12/27 KIM 0818 Sodium Chloride 1,000 ML Q10H 12/25 2330 WA 12/26 IV 1403 Vancomycin HCl 1,500 MG DAILY 12/26 0900 AC 12/27 Sodium Chloride 250 ML IV 1013 Results Last 48 Hrs of Labs/Mics: Laboratory Tests 12/27/17 0531: Anion Gap 8, Estimated GFR > 60, Glucose 134 H, Calcium 8.1 L, Phosphorus 2.8, Magnesium 1.6, Total Bilirubin 0.3, AST 17, ALT 36, Albumin 2.6 L, CBC w Diff NO MAN DIFF REQ, RBC 3.12 L, MCV 83.4, MCH 27.5, MCHC 32.9 L, RDW 14.6 H, MPV 8.2, Gran % 63.1, Lymphocytes % 17.4 L, Monocytes % 14.9 H, Eosinophils % 4.1, Basophils % 0.5, Absolute Granulocytes 7.7 H, Absolute Lymphocytes 2.1, Absolute Monocytes 1.8 H, Absolute Eosinophils 0.5, Absolute Basophils 0.1 12/26/17 0520: Anion Gap 9, Estimated GFR > 60, Glucose 156 H, Calcium 8.0 L, Phosphorus 4.1, Magnesium 1.2 L, Total Bilirubin 0.3, AST 24, ALT 34, Albumin 2.9 L, PT 14.8 H, INR 1.35 H, CBC w Diff NO MAN DIFF REQ, RBC 3.61 L, MCV 83.8, MCH 27.6, MCHC 33.0, RDW 14.9 H, MPV 8.5, Gran % 73.2, Lymphocytes % 13.5 L, Monocytes % 12.3 H, Eosinophils % 0.7, Basophils % 0.3, Absolute Granulocytes 9.2 H, Absolute Lymphocytes 1.7, Absolute Monocytes 1.5 H, Absolute Eosinophils 0.1, Absolute Basophils 0 12/25/17 1950: CBC w Diff NO MAN DIFF REQ, RBC 2.92 L, MCV 81.7, MCH 26.8 L, MCHC 32.7 L, RDW 14.7 H, MPV 7.8, Gran % 70.7, Lymphocytes % 15.8 L, Monocytes % 10.1 H, Eosinophils % 3.1, Basophils % 0.3, Absolute Granulocytes 6.8 H, Absolute Lymphocytes 1.5, Absolute Monocytes 1.0 H, Absolute Eosinophils 0.3, Absolute Basophils 0 12/25/17 1555: PT 15.4 H, INR 1.41 H Microbiology 12/26 0000 UPPER RESP: Surveillance Culture - COMP 12/26 0000 GI: Surveillance Culture - COMP VANC RESIST ENTEROCOCCUS Assessment/Plan Assessment/Plan Assessment: 1. Postoperative wound infection following lumbar laminectomy; stable, day 2 postop 2. 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 History of hypertension 4. Type 2 diabetes 5. Prior TIA 6. Mild normocytic anemia 7. New onset cough of unclear etiology Recommendations: -Continue management as per the ICU and surgical teams -Continue regular medications -Maintain on telemetry for at least another 24 hours -Oral anticoagulation on hold; as per surgery, consider restarting at time of surgical drain removal Continue telemetry? Yes
[2017-12-27 16:00] VITALS: BP 130/44
--- NOTE | 2017-12-27 22:11 | RADIOLOGY REPORT ---
EXAMINATION: XR PORTABLE CHEST CLINICAL INFORMATION: Cough COMPARISON: December 25, 2017 TECHNIQUE: Portable frontal view of the chest was obtained. FINDINGS: No significant abnormality is noted involving the heart, lungs, mediastinum, bony thorax or soft tissues. There has been no significant interval change since the prior study. IMPRESSION: Unremarkable examination.
[2017-12-28] VITALS: BP 154/56
[2017-12-28 04:57] LABS: ABSOLUTE BASOPHIL COUNT 0.1 /CUMM (0.0-0.2); ABSOLUTE EOSINOPHIL COUNT 0.6 /CUMM (0.0-0.7); ABSOLUTE GRANULOCYTE CT 8.4 /CUMM (1.4-6.5); ABSOLUTE LYMPH COUNT 2.2 /CUMM (1.2-3.4); ABSOLUTE MONOCYTE COUNT 1.6 /CUMM (0.10-0.60); BASOPHIL % 0.6 % (0.0-2.0); EOSINOPHIL % 4.7 % (0-5); GRANULOCYTE % 65.3 % (42.2-75.2); HEMATOCRIT 24.9 % (37-47); MEAN CORPUSCULAR HGB 27.4 PG (27.0-31.0); MEAN CORPUSCULAR HGB CONC 32.8 G/DL (33.0-37.0); MEAN CORPUSCULAR VOLUME 83.6 FL (81.0-99.0); MEAN PLATELET VOLUME 8.9 FL (7.4-10.4); PLATELET COUNT 238 /CUMM (130-400); RBC DISTRIBUTION WIDTH 14.1 % (11.5-14.5); RED BLOOD CELL CT 2.98 /CUMM (4.20-5.40); WHITE BLOOD CELL COUNT 12.8 /CUMM (4.8-10.8)
--- NOTE | 2017-12-28 07:41 | PN- Resident CRCU ---
Santiago Robins 12/28/17 0741: Subjective HPI/CRCU Issues: #Surgical Site Infection, on vancomycin, negative cultures so far 24 Hour Events: Pt seen and examined at bedside today. She was sitting comfortably on the chair. Stated pain is now better controlled, back to her baseline. She does complain of a productive cough with no blood streaks. No other acute complains Objective Vital Signs & I&O Last 8 Hrs of Vitals and I&O: Laboratory Tests 12/28 0400 Chemistry Sodium (137 - 145 mmol/L) 138 Potassium (3.5 - 5.1 mmol/L) 4.2 Chloride (98 - 107 mmol/L) 101 Carbon Dioxide (22 - 30 mmol/L) 32 H Anion Gap (5 - 16) 5 BUN (7 - 17 mg/dL) 8 Creatinine (0.5 - 1.0 mg/dL) 0.6 Estimated GFR (>60 ml/min) > 60 BUN/Creatinine Ratio (7 - 25 %) 13.3 Magnesium (1.6 - 2.3 mg/dL) 1.6 Hematology CBC w Diff NO MAN DIFF REQ WBC (4.8 - 10.8 /CUMM) 12.8 H RBC (4.20 - 5.40 /CUMM) 2.98 L Hgb (12.0 - 16.0 G/DL) 8.2 L Hct (37 - 47 %) 24.9 L MCV (81.0 - 99.0 FL) 83.6 MCH (27.0 - 31.0 PG) 27.4 MCHC (33.0 - 37.0 G/DL) 32.8 L RDW (11.5 - 14.5 %) 14.1 Plt Count (130 - 400 /CUMM) 238 MPV (7.4 - 10.4 FL) 8.9 Gran % (42.2 - 75.2 %) 65.3 Lymphocytes % (20.5 - 51.1 %) 17.1 L Monocytes % (1.7 - 9.3 %) 12.3 H Eosinophils % (0 - 5 %) 4.7 Basophils % (0.0 - 2.0 %) 0.6 Absolute Granulocytes (1.4 - 6.5 /CUMM) 8.4 H Absolute Lymphocytes (1.2 - 3.4 /CUMM) 2.2 Absolute Monocytes (0.10 - 0.60 /CUMM) 1.6 H Absolute Eosinophils (0.0 - 0.7 /CUMM) 0.6 Absolute Basophils (0.0 - 0.2 /CUMM) 0.1 ESR Westergren (0 - 20 MM) 80 H Microbiology Date/Time Procedure - Status Source Growth 12/26 0000 Surveillance Culture - COMP UPPER RESP 12/26 0000 Surveillance Culture - COMP GI VANC RESIST ENTEROCOCCUS 12/25 2213 Culture & Sensitivity - CAN TRUNK/O.R. Cancelled: DUPLICATED 12/25 2213 Gram Stain - CAN TRUNK/O.R. Cancelled: DUPLICATED 12/25 2212 Culture & Sensitivity - CAN TRUNK/O.R. Cancelled: DUPLICATED 12/25 2212 Gram Stain - CAN TRUNK/O.R. Cancelled: DUPLICATED 12/25 2210 Culture & Sensitivity - CAN TRUNK/O.R. Cancelled: DUPLICATED 12/25 2210 Gram Stain - CAN TRUNK/O.R. Cancelled: DUPLICATED 12/25 2209 Culture & Sensitivity - CAN TRUNK/O.R. Cancelled: DUPLICATED 12/25 2209 Gram Stain - CAN TRUNK/O.R. Cancelled: DUPLICATED 12/26 2203 Culture & Sensitivity - CAN TRUNK/O.R. Cancelled: DUPLICATED 12/26 2203 Gram Stain - CAN TRUNK/O.R. Cancelled: DUPLICATED 12/25 2149 Culture & Sensitivity - RES TRUNK/O.R. 12/25 2149 Gram Stain - RES TRUNK/O.R. 12/25 2029 Culture & Sensitivity - COMP TRUNK/O.R. 12/25 2029 Gram Stain - COMP TRUNK/O.R. 12/26 1999 Culture & Sensitivity - COMP TRUNK/O.R. 12/26 1999 Gram Stain - COMP TRUNK/O.R. 12/26 1999 Culture & Sensitivity - COMP TRUNK/O.R. 12/26 1999 Gram Stain - COMP TRUNK/O.R. 12/26 1999 Culture & Sensitivity - COMP TRUNK/O.R. 12/26 1999 Gram Stain - COMP TRUNK/O.R. Vital Signs Date Time Temp Pulse Resp B/P B/P Pulse O2 O2 Flow FiO2 Mean Ox Delivery Rate 12/28 0855 77 142/50 12/28 0800 Room Air 12/28 0800 97.1 69 18 142/50 97 Room Air 12/28 0000 97 Room Air 12/28 0000 97.4 83 18 154/56 97 Room Air 12/27 2028 95 Room Air Room Air 12/27 1600 99 Room Air 12/27 1600 97.8 80 20 130/44 98 Room Air Intake & Output 12/28 1600 12/28 0800 12/28 0000 Intake Total 150 1000 Output Total 30 730 Balance 120 270 Intake, Oral 150 1000 Number 0 Bowel Movements Output, 30 30 Drainage Output, Urine 700 Patient 183 lb Weight Exam General Appearance: alert, awake, mild distress Head: atraumatic, normal appearance Respiratory: normal breath sounds, chest non-tender, no respiratory distress, lungs clear Cardiovascular: regular rate/rhythm Gastrointestinal: normal bowel sounds, soft, non-tender, no organomegaly Extremities: normal inspection, normal capillary refill Cranial Nerves: normal hearing, normal speech Current Medications: Current Medications Sig/Clementine Start time Last Medication Dose Route Stop Time Status Admin Acetaminophen 1,000 MG Q6P PRN 12/25 2315 AC 12/26 N/A 1 UNIT IV 0918 Albuterol Sulfate 2 PUF Q4 PRN 12/27 1507 AC 12/27 INH 1430 Albuterol Sulfate 3 ML Q4P PRN 12/27 1130 AC 12/28 INH 0919 Artificial Tears 2 GTT TID 12/26 1723 AC 12/28 OPH 1409 Ascorbic Acid 500 MG DAILY 12/26 0900 AC 12/28 PO 0908 Benzonatate 200 MG TID 12/28 1004 AC 12/28 PO 1409 Budesonide/ 2 PUF BID 12/26 0900 AC 12/28 Formoterol Fumarate INH 0734 Cetirizine HCl 10 MG DAILY 12/27 1509 AC 12/28 PO 0841 Cholecalciferol 1,000 IU DAILY 12/26 0900 AC 12/28 PO 0840 Ciprofloxacin 2 GTT Q4H 12/29 1200 AC OPH 01/03 0801 Ciprofloxacin 2 GTT Q2 12/27 1000 AC 12/28 OPH 12/29 0801 1409 Diltiazem HCl 300 MG DAILY 12/26 0900 AC 12/28 PO 0855 Docusate Sodium 100 MG TID 12/28 0932 AC 12/28 PO 1048 Docusate Sodium 100 MG DAILY NEEDED PRN 12/27 1345 DC PO Gabapentin 300 MG Q8 12/28 1400 AC 12/28 PO 1305 Guaifenesin 10 ML .STK-MED ONE 12/28 0159 DC PO 12/28 0200 Guaifenesin 10 ML ONCE ONE 12/27 2300 DC 12/28 PO 12/27 2301 0202 Guaifenesin/ 10 ML Q6 12/28 1200 AC 12/28 Dextromethorphan PO 1224 Heparin Sodium 5,000 UNIT Q8 12/26 0600 AC 12/28 (Porcine) SC 1410 Hydrochlorothiazide 25 MG DAILY 12/26 0900 AC 12/28 PO 0855 Hydrocodone Bitart/ 2 TAB Q4P PRN 12/28 1045 AC 12/28 Acetaminophen PO 1408 Hydrocodone Bitart/ 1 TAB Q4P PRN 12/28 1045 AC Acetaminophen PO Hydrocodone Bitart/ 2 TAB Q4P PRN 12/26 1815 DC 12/28 Acetaminophen PO 1005 Insulin Aspart 0 TIDAC 12/26 0800 AC 12/28 SC 1223 Lactobacillus 1 CAP 0600,1700 12/28 0600 AC 12/28 Acidophilus PO 0617 Losartan Potassium 100 MG DAILY 12/26 0900 AC 12/28 PO 0855 Magnesium Sulfate 1 GM ONCE ONE 12/28 0745 DC 12/28 Dextrose/Water 100 ML IV 12/28 1144 0916 Melatonin 9 MG QPM 12/26 2100 AC 12/27 PO 2107 Montelukast Sodium 10 MG AT BEDTIME 12/27 2100 AC 12/27 PO 1730 Morphine Sulfate 2 MG Q6P PRN 12/26 2030 AC 12/28 IV 1102 Nystatin 1 ALVARO TID 12/26 2100 AC 12/28 TOP 1409 Omeprazole 40 MG DAILY AC 12/26 0700 AC 12/28 PO 0617 Polyethylene Glycol 17 GM DAILY 12/28 0933 AC 12/28 PO 1048 Rosuvastatin Calcium 20 MG 1700 12/26 1700 AC 12/27 PO 1647 Senna 187 MG AT BEDTIME NEED.. 12/28 0945 AC PO Sodium Chloride 2 SPRAY Q4P PRN 12/26 2215 AC 12/27 KIM 0818 Vancomycin HCl 1,500 MG DAILY 12/26 0900 AC 12/28 Sodium Chloride 250 ML IV 1048 CXR Findings: 12/27 EXAM TYPE: RAD - XRY-PORTABLE CHEST XRAY EXAMINATION: XR PORTABLE CHEST CLINICAL INFORMATION: Cough COMPARISON: December 25, 2017 TECHNIQUE: Portable frontal view of the chest was obtained. FINDINGS: No significant abnormality is noted involving the heart, lungs, mediastinum, bony thorax or soft tissues. There has been no significant interval change since the prior study. IMPRESSION: Unremarkable examination. Impression/Plan Impression/Problem List Impression: 72-year-old woman with past medical history of TIA, hyperlipidemia, hypertension , asthma, bronchitis, COPD, MRSA, GERD, OA, chronic back pain status post spinal fusion, men-[id number] diabetes mellitus, and 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 S/p washout/I&D with removal of hardware and CLARIBEL drain x2 on . Postoperatively, she was transferred to the ICU for BP monitoring. Patient today with better pain control, now back at her baseline. C/o productive cough likely related to her poor ambulatory status and respiratory effort impaired by pain. #Surgical Site infection Patient with leukocytosis on admit and persistent drainage now s/p I&D and hardware removal with negative cultures. She is currently on vancomycin (day #4) , plan is to continue for a 6 week course with weekly ESR monitoring to evaluate response. PLAN -Encourage moving as tolerated -IV vancomycin (day #4), trough level with her next dose. -Weekly ESR while on vanc -Anticoagulation with coumadin to be restarted at 5PM on 12/[address] Najera. -Pain control with her home regimen: Vicodin BID for moderate pain, Morphine 1g for severe pain PRN -ISS with bedside glucose monitoring -Antitussive therapy with guaifenesin and benzonatate FULL CODE DVT PPX: sq heparin Consistent Carbohydrate 3 Problem List: 1. Wound infection 2. Surgical wound dehiscence Pain Ratin (back) Tomorrow's Labs & Rationales: . Plan DVT/Prophylaxis: mechanical, pharmacological Oleg Kahn MD 12/28/17 3523: Attending MD Review Statement Attending Sign Off Attending Cosign Statement: I have: examined this patient, reviewed avalbl EMR data, personally reviewd images, discussd w/resident/PA/RECONCILIATION MACHINE OPERATOR, discussed mgmt plan w/anna marie, discussed mgmt plan w/CM, discussed mgmt plan w/pt, agreed w/resident/PA/RECONCILIATION MACHINE OPERATOR, amended to note. Other Findings: IOleg M.D. have examined this patient, reviewed available EMR data, personally reviewed images, discussed with resident/PA/RECONCILIATION MACHINE OPERATOR, discussed management plan with housestaff and nursing staff, discussed managment plan all of healthcare providers, discussed management plan with patient and/or family, agreed with resident/PA/RECONCILIATION MACHINE OPERATOR. The past history and parts of the chart have been autopopulated. Impression 72 year old woman * removal of hardware for surgical site infection * asthma/reactive airways disease * atelectasis Plan -incentive spirometry -trc/nebs -add tessalon perles -robitussin dm -continue vancomycin/ID recommendations Telemetry downgrade DVT prophylaxis at all times
[2017-12-28 08:00] VITALS: BP 142/50
--- NOTE | 2017-12-28 09:13 | PN- Orthopedic ---
See Addendum Subjective Subjective: pt sitting in chair, pain 01/22, due for pain meds soon. oob to bathroom with assist. no BM since thursday. voiding. toelrating diet. denies fevers denies cp/sob Objective Vital Signs and I&Os Vital Signs Date Time Temp Pulse Resp B/P B/P Pulse O2 O2 Flow FiO2 Mean Ox Delivery Rate 12/28 0855 77 142/50 12/28 0800 Room Air 12/28 0800 97.1 69 18 142/50 97 Room Air 12/28 0000 97 Room Air 12/28 0000 97.4 83 18 154/56 97 Room Air 12/27 2028 95 Room Air Room Air 12/27 1600 99 Room Air 12/27 1600 97.8 80 20 130/44 98 Room Air 12/27 1115 Room Air Intake & Output 12/28 1600 16 0800 16 0000 12/27 1600 12/27 0800 12/27 0000 Intake Total 150 1000 1340 1120 480 Output Total 30 717 486 0613 950 Balance 120 270 610 35 -470 Intake, IV 500 Intake, Oral 150 7116 901 8844 480 Number 0 0 0 0 Bowel Movements Output, 30 30 30 35 50 Drainage Output, Urine 461 089 7819 900 Patient 183 lb Weight Physical Exam: gen- nad resp- clear cardiac- rrr abd- soft, nt back- brace in place, will change dressing later today when pt gets back in to bed ext- distal sensory and motor function intact. 2+dp bilaterally. calves are soft and nontender Current Medications: Current Medications Sig/Clementine Start time Last Medication Dose Route Stop Time Status Admin Acetaminophen 1,000 MG Q6P PRN 12/25 2315 AC 12/26 N/A 1 UNIT IV 0918 Albuterol Sulfate 2 PUF Q4 PRN 12/27 1507 AC 12/27 INH 1430 Albuterol Sulfate 3 ML Q4P PRN 12/27 1130 AC 12/28 INH 0919 Albuterol Sulfate 2 PUF Q4 12/26 2200 DC 12/27 INH 0211 Artificial Tears 2 GTT TID 12/26 1723 AC 12/28 OPH 0842 Ascorbic Acid 500 MG DAILY 12/26 0900 AC 12/28 PO 0908 Benzonatate 200 MG TID 12/28 1004 UNVr PO Budesonide/ 2 PUF BID 12/26 0900 AC 12/28 Formoterol Fumarate INH 0734 Cetirizine HCl 10 MG DAILY 12/27 1509 AC 12/28 PO 0841 Cholecalciferol 1,000 IU DAILY 12/26 0900 AC 12/28 PO 0840 Ciprofloxacin 2 GTT Q4H 12/29 1200 AC OPH 01/03 0801 Ciprofloxacin 2 GTT Q2 12/27 1000 AC 12/28 OPH 12/29 0801 0842 Diltiazem HCl 300 MG DAILY 12/26 0900 AC 12/28 PO 0855 Docusate Sodium 100 MG TID 12/28 0932 AC PO Docusate Sodium 100 MG DAILY NEEDED PRN 12/27 1345 DC PO Guaifenesin 10 ML .STK-MED ONE 12/28 0159 DC PO 12/28 0200 Guaifenesin 10 ML ONCE ONE 12/27 2300 DC 12/28 PO 12/27 2301 0202 Guaifenesin/ 10 ML Q6 12/28 1200 UNVr Dextromethorphan PO Heparin Sodium 5,000 UNIT Q8 12/26 0600 AC 12/28 (Porcine) SC 0615 Hydrochlorothiazide 25 MG DAILY 12/26 0900 AC 12/28 PO 0855 Hydrocodone Bitart/ 2 TAB Q4P PRN 12/26 1815 AC 12/28 Acetaminophen PO 0618 Hydromorphone HCl 1 MG ONCE ONE 12/27 1115 DC 12/27 IV 12/27 1116 1126 Insulin Aspart 0 TIDAC 12/26 0800 AC 12/28 SC 0840 Lactobacillus 1 CAP 0600,1700 12/28 0600 AC 12/28 Acidophilus PO 0617 Loratadine 10 MG DAILY 12/26 0900 DC 12/27 PO 0816 Losartan Potassium 100 MG DAILY 12/26 0900 AC 12/28 PO 0855 Magnesium Sulfate 1 GM ONCE ONE 12/28 0745 AC 12/28 Dextrose/Water 100 ML IV 12/28 1144 0916 Magnesium Sulfate 1 GM Q2H 12/27 1000 DC 12/27 Dextrose/Water 100 ML IV 12/27 1359 1200 Melatonin 9 MG QPM 12/26 2100 AC 12/27 PO 2107 Montelukast Sodium 10 MG AT BEDTIME 12/27 2100 AC 12/27 PO 1730 Morphine Sulfate 2 MG Q6P PRN 12/26 2030 AC 12/27 IV 2334 Nystatin 1 ALVARO TID 12/26 2100 AC 12/28 TOP 0856 Omeprazole 40 MG DAILY AC 12/26 0700 AC 12/28 PO 0617 Polyethylene Glycol 17 GM DAILY 12/28 0933 AC PO Rosuvastatin Calcium 20 MG 1700 12/26 1700 AC 12/27 PO 1647 Senna 187 MG AT BEDTIME NEED.. 12/28 0945 PO Sodium Chloride 2 SPRAY Q4P PRN 12/26 2215 AC 12/27 KIM 0818 Vancomycin HCl 1,500 MG DAILY 12/26 09 AC 12/27 Sodium Chloride 250 ML IV 1013 Results Last 48 Hours of Labs: Laboratory Tests 12/28 12/27 0400 0531 Chemistry Sodium (137 - 145 mmol/L) 138 139 Potassium (3.5 - 5.1 mmol/L) 4.2 3.9 Chloride (98 - 107 mmol/L) 101 103 Carbon Dioxide (22 - 30 mmol/L) 32 H 28 Anion Gap (5 - 16) 5 8 BUN (7 - 17 mg/dL) 8 8 Creatinine (0.5 - 1.0 mg/dL) 0.6 0.6 Estimated GFR (>60 ml/min) > 60 > 60 BUN/Creatinine Ratio (7 - 25 %) 13.3 Glucose (65 - 99 mg/dL) 134 H Calcium (8.4 - 10.2 mg/dL) 8.1 L Phosphorus (2.5 - 4.5 mg/dL) 2.8 Magnesium (1.6 - 2.3 mg/dL) 1.6 1.6 Total Bilirubin (0.2 - 1.3 mg/dL) 0.3 AST (14 - 36 U/L) 17 ALT (9 - 52 U/L) 36 Albumin (3.5 - 5.0 g/dL) 2.6 L Hematology CBC w Diff NO MAN DIFF REQ NO MAN DIFF REQ WBC (4.8 - 10.8 /CUMM) 12.8 H 12.2 H RBC (4.20 - 5.40 /CUMM) 2.98 L 3.12 L Hgb (12.0 - 16.0 G/DL) 8.2 L 8.6 L Hct (37 - 47 %) 24.9 L 26.1 L MCV (81.0 - 99.0 FL) 83.6 83.4 MCH (27.0 - 31.0 PG) 27.4 27.5 MCHC (33.0 - 37.0 G/DL) 32.8 L 32.9 L RDW (11.5 - 14.5 %) 14.1 14.6 H Plt Count (130 - 400 /CUMM) 238 222 MPV (7.4 - 10.4 FL) 8.9 8.2 Gran % (42.2 - 75.2 %) 65.3 63.1 Lymphocytes % (20.5 - 51.1 %) 17.1 L 17.4 L Monocytes % (1.7 - 9.3 %) 12.3 H 14.9 H Eosinophils % (0 - 5 %) 4.7 4.1 Basophils % (0.0 - 2.0 %) 0.6 0.5 Absolute Granulocytes (1.4 - 6.5 /CUMM) 8.4 H 7.7 H Absolute Lymphocytes (1.2 - 3.4 /CUMM) 2.2 2.1 Absolute Monocytes (0.10 - 0.60 /CUMM) 1.6 H 1.8 H Absolute Eosinophils (0.0 - 0.7 /CUMM) 0.6 0.5 Absolute Basophils (0.0 - 0.2 /CUMM) 0.1 0.1 ESR Westergren (0 - 20 MM) 80 H Assessment/Plan Assessment/Plan Pt is a 72yo F with persistent draining lumbar wound, now POD #3 s/p washout/I&D with removal of hardware, and CLARIBEL drain x 2. She remains relatively stable at this time. plan to tranfer out of CCU to tele floor today Plan: -Vancomycin 1.5g daily as per ID recommendations. Monitor temps and WBC. F/u OR cultures. -Pain control- will add standing gabapentin for baseline pain management with prn vicodin -Bowel regimen - Monitor CLARIBEL output. Drains are not stitched in, so use caution with movement. - dressing cahnge later today -Ok SC heparin. To resume coumadin tomorrow, 12/29, at 5pm per Dr. Najera -Medical management per critical care team. -Will d/w Dr. Najera. Core Measures Venous Thromboembolism VTE Risk Factors Age>40 No Mechanical VTE Prophylaxis d/t N/A MechProphylax Ordered No VTE Pharm Prophylaxis d/t NA PharmProphylax ordered
--- NOTE | 2017-12-28 10:27 | Transfer of Care Summary ---
Hospital Course Course Hospital Course: Reason for ICU admission: postoperative monitoring of BP after hypotensive episode in OR. POD#3. History of presenting illness: 72 y/o F with extensive PMH significant for chronic back pain s/p spinal fusion, DM, hypertension, MRSA, that came to the ED for persistent lumbar wound drainage. S/p washout/I&D with removal of hardware and Leo-Lawson drain x2 with minimal serosanguineous fluid. Interval events in the ICU: Arterial line BP monitoring showed BPs over 200/80 though resolved upon restart of home meds and pain control. Pt was markedly dyspneic upon arrival with shallow breathing likely related to postoperative pain needing O2 support in the form of 3L O2 on NC that gradually improved upon better pain control. Mechanical ventilation: No NIPPV: No Antibiotics plan: PT on vancomycin 1.5g daily (day #4) Catheters/ Lines plan: PICC on L UE, DONITA Drain x2 Things to be followed up in the floor: coumadin tomorrow (12/29) @ [address] Najera, monitor WBC and/or appearance of fever, f/u on cultures, vanc trough on next dose, weekly ESR monitoring Nutrition: Consistent Carbohydrate 3 DVT prophylaxis: Sq Hep Code status: FULL CODE Significant Procedures: 12/25 Name of Procedure: #1 revision of lumbar wound #2 I&D of lumbar wound As secondary #3 exploration of fusion #4 removal of hardware bilateral Pre-Operative Diagnosis: Infected lumbar wound Post-Operative Diagnosis: Infected lumbar wound Estimated Blood Loss: 1200 mL Surgeon/Flooring Machine Feeder: Dania HARRIS,Ray Rose(co-surgeon) Eric Dempsey MD Anesthesia: general endotracheal tube Monitors: None IV Fluids: D5 normal Implants: None Urine Output: See anesthesia note Drains: 2 Hemovacs Specimens: Multiple cultures Microbiology: Multiple cultures sent from superficial and deep structures Tourniquet: None Complications: None Condition: Stable Pertinent Lab Results: Laboratory Tests 12/28/17 0400: Anion Gap 5, Estimated GFR > 60, BUN/Creatinine Ratio 13.3, Magnesium 1.6, CBC w Diff NO MAN DIFF REQ, RBC 2.98 L, MCV 83.6, MCH 27.4, MCHC 32.8 L, RDW 14.1, MPV 8.9, Gran % 65.3, Lymphocytes % 17.1 L, Monocytes % 12.3 H, Eosinophils % 4.7, Basophils % 0.6, Absolute Granulocytes 8.4 H, Absolute Lymphocytes 2.2, Absolute Monocytes 1.6 H, Absolute Eosinophils 0.6, Absolute Basophils 0.1, ESR Westergren 80 H 12/27/17 0531: Anion Gap 8, Estimated GFR > 60, Glucose 134 H, Calcium 8.1 L, Phosphorus 2.8, Magnesium 1.6, Total Bilirubin 0.3, AST 17, ALT 36, Albumin 2.6 L, CBC w Diff NO MAN DIFF REQ, RBC 3.12 L, MCV 83.4, MCH 27.5, MCHC 32.9 L, RDW 14.6 H, MPV 8.2, Gran % 63.1, Lymphocytes % 17.4 L, Monocytes % 14.9 H, Eosinophils % 4.1, Basophils % 0.5, Absolute Granulocytes 7.7 H, Absolute Lymphocytes 2.1, Absolute Monocytes 1.8 H, Absolute Eosinophils 0.5, Absolute Basophils 0.1 12/26/17 0520: Anion Gap 9, Estimated GFR > 60, Glucose 156 H, Calcium 8.0 L, Phosphorus 4.1, Magnesium 1.2 L, Total Bilirubin 0.3, AST 24, ALT 34, Albumin 2.9 L, PT 14.8 H, INR 1.35 H, CBC w Diff NO MAN DIFF REQ, RBC 3.61 L, MCV 83.8, MCH 27.6, MCHC 33.0, RDW 14.9 H, MPV 8.5, Gran % 73.2, Lymphocytes % 13.5 L, Monocytes % 12.3 H, Eosinophils % 0.7, Basophils % 0.3, Absolute Granulocytes 9.2 H, Absolute Lymphocytes 1.7, Absolute Monocytes 1.5 H, Absolute Eosinophils 0.1, Absolute Basophils 0 12/25/17 1950: CBC w Diff NO MAN DIFF REQ, RBC 2.92 L, MCV 81.7, MCH 26.8 L, MCHC 32.7 L, RDW 14.7 H, MPV 7.8, Gran % 70.7, Lymphocytes % 15.8 L, Monocytes % 10.1 H, Eosinophils % 3.1, Basophils % 0.3, Absolute Granulocytes 6.8 H, Absolute Lymphocytes 1.5, Absolute Monocytes 1.0 H, Absolute Eosinophils 0.3, Absolute Basophils 0 12/25/17 1555: PT 15.4 H, INR 1.41 H Microbiology 12/26 0000 UPPER RESP: Surveillance Culture - COMP 12/26 0000 GI: Surveillance Culture - COMP VANC RESIST ENTEROCOCCUS 12/25 2213 TRUNK/O.R.: Culture & Sensitivity - CAN Cancelled: DUPLICATED 12/25 2213 TRUNK/O.R.: Gram Stain - CAN Cancelled: DUPLICATED 12/25 2212 TRUNK/O.R.: Culture & Sensitivity - CAN Cancelled: DUPLICATED 12/25 2212 TRUNK/O.R.: Gram Stain - CAN Cancelled: DUPLICATED 12/25 2210 TRUNK/O.R.: Culture & Sensitivity - CAN Cancelled: DUPLICATED 12/25 2210 TRUNK/O.R.: Gram Stain - CAN Cancelled: DUPLICATED 12/25 2209 TRUNK/O.R.: Culture & Sensitivity - CAN Cancelled: DUPLICATED 12/25 2209 TRUNK/O.R.: Gram Stain - CAN Cancelled: DUPLICATED 12/26 2203 TRUNK/O.R.: Culture & Sensitivity - CAN Cancelled: DUPLICATED 12/26 2203 TRUNK/O.R.: Gram Stain - CAN Cancelled: DUPLICATED 12/25 2149 TRUNK/O.R.: Culture & Sensitivity - RES 12/25 2149 TRUNK/O.R.: Gram Stain - RES 12/25 2029 TRUNK/O.R.: Culture & Sensitivity - COMP 12/25 2029 TRUNK/O.R.: Gram Stain - COMP 12/26 1999 TRUNK/O.R.: Culture & Sensitivity - COMP 12/26 1999 TRUNK/O.R.: Gram Stain - COMP 12/26 1999 TRUNK/O.R.: Culture & Sensitivity - COMP 12/26 1999 TRUNK/O.R.: Gram Stain - COMP 12/26 1999 TRUNK/O.R.: Culture & Sensitivity - COMP 12/26 1999 TRUNK/O.R.: Gram Stain - COMP Microbiology 12/26 0000 UPPER RESP: Surveillance Culture - COMP 12/26 0000 GI: Surveillance Culture - COMP VANC RESIST ENTEROCOCCUS 12/25 2213 TRUNK/O.R.: Culture & Sensitivity - CAN Cancelled: DUPLICATED 12/25 2213 TRUNK/O.R.: Gram Stain - CAN Cancelled: DUPLICATED 12/25 2212 TRUNK/O.R.: Culture & Sensitivity - CAN Cancelled: DUPLICATED 12/25 2212 TRUNK/O.R.: Gram Stain - CAN Cancelled: DUPLICATED 12/25 2210 TRUNK/O.R.: Culture & Sensitivity - CAN Cancelled: DUPLICATED 12/25 2210 TRUNK/O.R.: Gram Stain - CAN Cancelled: DUPLICATED 12/25 2209 TRUNK/O.R.: Culture & Sensitivity - CAN Cancelled: DUPLICATED 12/25 2209 TRUNK/O.R.: Gram Stain - CAN Cancelled: DUPLICATED 12/26 2203 TRUNK/O.R.: Culture & Sensitivity - CAN Cancelled: DUPLICATED 12/26 2203 TRUNK/O.R.: Gram Stain - CAN Cancelled: DUPLICATED 12/25 2149 TRUNK/O.R.: Culture & Sensitivity - RES 12/25 2149 TRUNK/O.R.: Gram Stain - RES 12/25 2029 TRUNK/O.R.: Culture & Sensitivity - COMP 12/25 2029 TRUNK/O.R.: Gram Stain - COMP 12/26 1999 TRUNK/O.R.: Culture & Sensitivity - COMP 12/26 1999 TRUNK/O.R.: Gram Stain - COMP 12/26 1999 TRUNK/O.R.: Culture & Sensitivity - COMP 12/26 1999 TRUNK/O.R.: Gram Stain - COMP 12/26 1999 TRUNK/O.R.: Culture & Sensitivity - COMP 12/26 1999 TRUNK/O.R.: Gram Stain - COMP Vital Signs Date Time Temp Pulse Resp B/P B/P Pulse O2 O2 Flow FiO2 Mean Ox Delivery Rate 12/28 0855 77 142/50 12/28 0800 Room Air 12/28 0800 97.1 69 18 142/50 97 Room Air 12/28 0000 97 Room Air 12/28 0000 97.4 83 18 154/56 97 Room Air 12/27 2028 95 Room Air Room Air 12/27 1600 99 Room Air 12/27 1600 97.8 80 20 130/44 98 Room Air Assessment/Plan: Impression: 72-year-old woman with past medical history of TIA, hyperlipidemia, hypertension , asthma, bronchitis, COPD, MRSA, GERD, OA, chronic back pain status post spinal fusion, quu-[id number] diabetes mellitus, and upper extremity DVT on Coumadin was sent in to the ED by her orthopedic surgeon for persistent lumbar wound drainage, s/p washout/I&D with removal of hardware and CLARIBEL drain x2. Postoperatively, she was transferred to the ICU for BP monitoring. Her stay was marked by severe back pain related to her wound that worsened with movement. This likely contributed to her marked dyspneic appereance with shallow breathing on arrival that needed oxygen therapy to the tune of 3L on NC that later resolved. Productive cough was also noted upon questioning, likely related to poor ambulation and shallow breathing. Serial CXR have noted no pulmonary pathology. Pt had arterial line BP monitoring that showed episodes of increasingly high BP of over 200 SBP/80 DBP that slowly resolved, returning to her baseline upon restart of her home antihypertensive medication. #Surgical Site infection Patient with leukocytosis on admit and persistent drainage now s/p I&D and hardware removal with negative cultures. She is currently on vancomycin (day #4) , plan is to continue for a 6 week course with weekly ESR monitoring to evaluate response. PLAN -Encourage moving as tolerated -Continue IV vancomycin (day #4), vanc trough on next dose -Weekly ESR monitoring -Pain control with her home regimen: Vicodin BID for moderate pain, Morphine 1g for severe pain PRN. -ISS with bedside glucose monitoring -Cough suppresive therapy with benzonatate and guaifenesin -Coumadin to be restarted on 12/29 at [address] Najera. FULL CODE DVT PPX: sq heparin Consistent Carbohydrate 3
--- NOTE | 2017-12-28 10:27 | PN- Resident CRCU ---
Impression/Plan Impression/Problem List Impression: 72-year-old woman with past medical history of TIA, hyperlipidemia, hypertension , asthma, bronchitis, COPD, MRSA, GERD, OA, chronic back pain status post spinal fusion, jxn-egkqmsr-bitprlmsg diabetes mellitus, and 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 She underwent removal of surgical hardware and I&D of her lumbar region in the OR ON 12/25. Postoperatively, she was transferred to the ICU for further management. Currently in the ICU the patient is on 2L NC with 100% o2 sat, complaining of severe pain in the back. She has a wound drain with about 5 cc of serosanguineous liquid at her side. h/h stable at 04/13.2. #Surgical Site infection #Hypertensive Urgency #Acute Hypoxic Resp Failure PLAN -Encourage moving as tolerated -Continue supplemental O2, goal of >92%. Currently on 2L -IV vanc -Cardiology consulted, BP has remained high over 160/70. PO meds started this am. Hold anticoagulation. -Pain control with her home regimen: Vicodin BID for moderate pain, Morphine 1g for severe pain PRN -ISS with bedside glucose monitoring FULL CODE DVT PPX: sq heparin Consistent Carbohydrate 3 Plan DVT/Prophylaxis: mechanical, pharmacological
--- NOTE | 2017-12-28 11:44 | PN- Cardiology ---
Subjective Subjective: The patient has been transferred to telemetry. She is feeling well from a cardiac standpoint. No chest pain. No shortness of breath. No diaphoresis. No palpitations. No lightheadedness or dizziness. No nausea or vomiting. Telemetry monitoring reveals sinus rhythm Objective Vital Signs and I&Os Vital Signs Date Time Temp Pulse Resp B/P B/P Pulse O2 O2 Flow FiO2 Mean Ox Delivery Rate 12/28 0855 77 142/50 12/28 0800 Room Air 12/28 0800 97.1 69 18 142/50 97 Room Air 12/28 0000 97 Room Air 12/28 0000 97.4 83 18 154/56 97 Room Air 12/27 2028 95 Room Air Room Air 12/27 1600 99 Room Air 12/27 1600 97.8 80 20 130/44 98 Room Air Intake & Output 12/28 1600 12/28 0800 12/28 0000 12/27 1600 12/27 0800 12/27 0000 Intake Total 150 1000 1340 1120 480 Output Total 30 986 549 4020 950 Balance 120 270 610 35 -470 Intake, IV 500 Intake, Oral 150 6759 914 3459 480 Number 0 0 0 0 Bowel Movements Output, 30 30 30 35 50 Drainage Output, Urine 189 893 4288 900 Patient 183 lb Weight Physical Exam: Gen: NAD HEENT: normal Lungs: clear to auscultation, normal resp. effort Heart: RRR, S1, S2, no murmurs Abdomen: Soft, nontender, no masses Extremities: No clubbing, cyanosis, or edema. Neuro: Alert and oriented x 3, cranial nerves intact Current Medications: Current Medications Sig/Clementine Start time Last Medication Dose Route Stop Time Status Admin Acetaminophen 1,000 MG Q6P PRN 12/25 2315 AC 12/26 N/A 1 UNIT IV 0918 Albuterol Sulfate 2 PUF Q4 PRN 12/27 1507 AC 12/27 INH 1430 Albuterol Sulfate 3 ML Q4P PRN 12/27 1130 AC 12/28 INH 0919 Albuterol Sulfate 2 PUF Q4 12/26 2200 DC 12/27 INH 0211 Artificial Tears 2 GTT TID 12/26 1723 AC 12/28 OPH 0842 Ascorbic Acid 500 MG DAILY 12/26 0900 AC 12/28 PO 0908 Benzonatate 200 MG TID 12/28 1004 AC 12/28 PO 1112 Budesonide/ 2 PUF BID 12/26 0900 AC 12/28 Formoterol Fumarate INH 0734 Cetirizine HCl 10 MG DAILY 12/27 1509 AC 12/28 PO 0841 Cholecalciferol 1,000 IU DAILY 12/26 0900 AC 12/28 PO 0840 Ciprofloxacin 2 GTT Q4H 12/29 1200 AC OPH 01/03 0801 Ciprofloxacin 2 GTT Q2 12/27 1000 AC 12/28 OPH 12/29 0801 1049 Diltiazem HCl 300 MG DAILY 12/26 0900 AC 12/28 PO 0855 Docusate Sodium 100 MG TID 12/28 0932 AC 12/28 PO 1048 Docusate Sodium 100 MG DAILY NEEDED PRN 12/27 1345 DC PO Gabapentin 300 MG Q8 12/28 1400 AC PO Guaifenesin 10 ML .STK-MED ONE 12/28 0159 DC PO 12/28 0200 Guaifenesin 10 ML ONCE ONE 12/27 2300 DC 12/28 PO 12/27 2301 0202 Guaifenesin/ 10 ML Q6 12/28 1200 AC Dextromethorphan PO Heparin Sodium 5,000 UNIT Q8 12/26 0600 AC 12/28 (Porcine) SC 0615 Hydrochlorothiazide 25 MG DAILY 12/26 0900 AC 12/28 PO 0855 Hydrocodone Bitart/ 2 TAB Q4P PRN 12/28 1045 AC Acetaminophen PO Hydrocodone Bitart/ 1 TAB Q4P PRN 12/28 1045 AC Acetaminophen PO Hydrocodone Bitart/ 2 TAB Q4P PRN 12/26 1815 DC 12/28 Acetaminophen PO 1005 Insulin Aspart 0 TIDAC 12/26 0800 AC 12/28 SC 0840 Lactobacillus 1 CAP 0600,1700 12/28 0600 AC 12/28 Acidophilus PO 0617 Loratadine 10 MG DAILY 12/26 0900 DC 12/27 PO 0816 Losartan Potassium 100 MG DAILY 12/26 0900 AC 12/28 PO 0855 Magnesium Sulfate 1 GM ONCE ONE 12/28 0745 AC 12/28 Dextrose/Water 100 ML IV 12/28 1144 0916 Magnesium Sulfate 1 GM Q2H 12/27 1000 DC 12/27 Dextrose/Water 100 ML IV 12/27 1359 1200 Melatonin 9 MG QPM 12/26 2100 AC 12/27 PO 2107 Montelukast Sodium 10 MG AT BEDTIME 12/27 2100 AC 12/27 PO 1730 Morphine Sulfate 2 MG Q6P PRN 12/26 2030 AC 12/28 IV 1102 Nystatin 1 ALVARO TID 12/26 2099 12/28 TOP 0856 Omeprazole 40 MG DAILY AC 12/26 0700 AC 12/28 PO 0617 Polyethylene Glycol 17 GM DAILY 12/28 0933 12/28 PO 1048 Rosuvastatin Calcium 20 MG 1700 12/26 1700 AC 12/27 PO 1647 Senna 187 MG AT BEDTIME NEED.. 12/28 0945 PO Sodium Chloride 2 SPRAY Q4P PRN 12/26 2215 12/27 KIM 0818 Vancomycin HCl 1,500 MG DAILY 12/26 09 AC 12/28 Sodium Chloride 250 ML IV 1048 Results Last 48 Hrs of Labs/Mics: Laboratory Tests 12/28/17 0400: Anion Gap 5, Estimated GFR > 60, BUN/Creatinine Ratio 13.3, Magnesium 1.6, CBC w Diff NO MAN DIFF REQ, RBC 2.98 L, MCV 83.6, MCH 27.4, MCHC 32.8 L, RDW 14.1, MPV 8.9, Gran % 65.3, Lymphocytes % 17.1 L, Monocytes % 12.3 H, Eosinophils % 4.7, Basophils % 0.6, Absolute Granulocytes 8.4 H, Absolute Lymphocytes 2.2, Absolute Monocytes 1.6 H, Absolute Eosinophils 0.6, Absolute Basophils 0.1, ESR Westergren 80 H 12/27/17 0531: Anion Gap 8, Estimated GFR > 60, Glucose 134 H, Calcium 8.1 L, Phosphorus 2.8, Magnesium 1.6, Total Bilirubin 0.3, AST 17, ALT 36, Albumin 2.6 L, CBC w Diff NO MAN DIFF REQ, RBC 3.12 L, MCV 83.4, MCH 27.5, MCHC 32.9 L, RDW 14.6 H, MPV 8.2, Gran % 63.1, Lymphocytes % 17.4 L, Monocytes % 14.9 H, Eosinophils % 4.1, Basophils % 0.5, Absolute Granulocytes 7.7 H, Absolute Lymphocytes 2.1, Absolute Monocytes 1.8 H, Absolute Eosinophils 0.5, Absolute Basophils 0.1 Assessment/Plan Assessment/Plan Assessment: 1. Postoperative wound infection following lumbar laminectomy; stable, day 2 postop 2. 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 History of hypertension 4. Type 2 diabetes 5. Prior TIA 6. Mild normocytic anemia 7. New onset cough of unclear etiology Recommendations: * Continue current cardiac medication * Anticoagulation on hold until cleared by surgery to restart Continue telemetry? Yes
--- NOTE | 2017-12-28 13:19 | PN- Infect Dx ---
Subjective Subjective: Afebrile. She continues to complain of back pain, now radiating to the right side of her abdomen Objective Last 24 Hrs of Vital Signs/I&O Vital Signs Date Time Temp Pulse Resp B/P B/P Pulse O2 O2 Flow FiO2 Mean Ox Delivery Rate 12/28 0855 77 142/50 12/28 0800 Room Air 12/28 0800 97.1 69 18 142/50 97 Room Air 12/28 0000 97 Room Air 12/28 0000 97.4 83 18 154/56 97 Room Air 12/28 2027 95 Room Air Room Air 12/27 1600 99 Room Air 12/27 1600 97.8 80 20 130/44 98 Room Air Intake & Output 12/28 1600 12/28 0800 12/28 0000 Intake Total 150 1000 Output Total 30 730 Balance 120 270 Intake, Oral 150 1000 Number 0 Bowel Movements Output, 30 30 Drainage Output, Urine 700 Patient 183 lb Weight Physical Exam Other Physical Findings: She appears mildly uncomfortable but in no acute distress Lungs are clear Back dressing intact, with drains remain in place Extremities no cyanosis, clubbing or edema; PICC in the left upper extremity with no inflammation at the site Results Last 24 Hours of Lab Results: Laboratory Tests 12/28 0400 Chemistry Sodium (137 - 145 mmol/L) 138 Potassium (3.5 - 5.1 mmol/L) 4.2 Chloride (98 - 107 mmol/L) 101 Carbon Dioxide (22 - 30 mmol/L) 32 H Anion Gap (5 - 16) 5 BUN (7 - 17 mg/dL) 8 Creatinine (0.5 - 1.0 mg/dL) 0.6 Estimated GFR (>60 ml/min) > 60 BUN/Creatinine Ratio (7 - 25 %) 13.3 Magnesium (1.6 - 2.3 mg/dL) 1.6 Hematology CBC w Diff NO MAN DIFF REQ WBC (4.8 - 10.8 /CUMM) 12.8 H RBC (4.20 - 5.40 /CUMM) 2.98 L Hgb (12.0 - 16.0 G/DL) 8.2 L Hct (37 - 47 %) 24.9 L MCV (81.0 - 99.0 FL) 83.6 MCH (27.0 - 31.0 PG) 27.4 MCHC (33.0 - 37.0 G/DL) 32.8 L RDW (11.5 - 14.5 %) 14.1 Plt Count (130 - 400 /CUMM) 238 MPV (7.4 - 10.4 FL) 8.9 Gran % (42.2 - 75.2 %) 65.3 Lymphocytes % (20.5 - 51.1 %) 17.1 L Monocytes % (1.7 - 9.3 %) 12.3 H Eosinophils % (0 - 5 %) 4.7 Basophils % (0.0 - 2.0 %) 0.6 Absolute Granulocytes (1.4 - 6.5 /CUMM) 8.4 H Absolute Lymphocytes (1.2 - 3.4 /CUMM) 2.2 Absolute Monocytes (0.10 - 0.60 /CUMM) 1.6 H Absolute Eosinophils (0.0 - 0.7 /CUMM) 0.6 Absolute Basophils (0.0 - 0.2 /CUMM) 0.1 ESR Westergren (0 - 20 MM) 80 H Last 24 Hours of Chucky Results: OR cultures December 25 all negative Recent Imaging Studies: Chest x-ray December 27 negative Assessment/Plan ID Impression: Stable, status post removal of hardware from her spine 3 days ago for a persistent surgical site infection, with continued drainage despite her most recent I&D over 3 weeks prior to admission, with an area of purulent material apparently identified in the muscle layer. She remains afebrile with a persistent, mild leukocytosis on Vancomycin, with her OR cultures all negative. Suggestion: 1. Vancomycin trough level with her next dose 2. Continue Vancomycin for a 6 week course from her most recent surgery (until February 05) 3. Weekly ESR while on Vancomycin
[2017-12-28 15:17] VITALS: BP 168/58
[2017-12-28 21:36] VITALS: BP 146/60
[2017-12-29 06:48] VITALS: BP 168/74
--- NOTE | 2017-12-29 07:18 | PN- Housestaff ---
Shari White MD 12/29/17 0718: Subjective Follow-up For: SURGICAL SITE INFECTION Subjective: Patient seen and examined. She notes some pain in her back at the incision site which is clean and dry, bandaged. She denies any respiratory issues. No urinary changes. Has not had a bowel movement since thursday. Vitals are stable, afebrile. No use of O2. Review of Systems Constitutional: Reports: no symptoms. EENTM: Reports: no symptoms. Cardiovascular: Reports: no symptoms. Respiratory: Reports: no symptoms. Gastrointestinal: Reports: no symptoms. Genitourinary: Reports: no symptoms. Musculoskeletal: Reports: back pain. Skin: Reports: no symptoms. Neurological/Psychological: Reports: no symptoms. Hematologic/Endocrine: Reports: no symptoms. Objective Last 24 Hrs of Vital Signs/I&O Vital Signs Date Time Temp Pulse Resp B/P B/P Pulse O2 O2 Flow FiO2 Mean Ox Delivery Rate 12/29 0824 78 132/50 12/29 0648 98.2 73 18 168/74 95 Room Air 12/29 0000 Room Air 12/28 2136 98.1 81 18 146/60 97 12/28 2051 95 Room Air Room Air 12/28 1600 Room Air 12/28 1517 98.6 78 20 168/58 96 12/28 0855 77 142/50 Intake & Output 12/29 1600 12/29 0800 12/29 0000 Intake Total 120 120 Output Total 15 Balance 120 105 Intake, Oral 120 120 Output, 15 Drainage Patient 176 lb Weight Physical Exam General Appearance: Alert, Oriented X3, Cooperative, No Acute Distress Skin: No Rashes, No Breakdown, No Significant Lesion Skin Temp/Moisture Exam: Warm/Dry Sepsis Skin Exam (color): Normal for Ethnicity HEENT: Atraumatic, EOMI, Mucous Membr. moist/pink Cardiovascular: Regular Rate, Normal S1, Normal S2, No Murmurs Lungs: mild crackles at the bases Abdomen: Normal Bowel Sounds, Soft, No Tenderness Neurological: Normal Speech Extremities: No Clubbing, No Cyanosis, No Edema, Normal Pulses, No Tenderness/ Swelling Vascular: Normal Pulses, Pulses Symmetrical Sepsis Peripheral Pulse Location: Radial Current Medications: Current Medications Sig/Clementine Start time Last Medication Dose Route Stop Time Status Admin Acetaminophen 1,000 MG Q6P PRN 12/25 2315 AC 12/26 N/A 1 UNIT IV 0918 Albuterol Sulfate 3 ML TID 12/28 2100 AC 12/28 INH 2049 Albuterol Sulfate 2 PUF Q4 PRN 12/27 1507 AC 12/27 INH 1430 Albuterol Sulfate 3 ML Q4P PRN 12/27 1130 DC 12/28 INH 0919 Artificial Tears 2 GTT TID 12/26 1723 AC 12/28 OPH 2027 Ascorbic Acid 500 MG DAILY 12/26 0900 AC 12/28 PO 0908 Benzonatate 200 MG TID 12/28 1004 AC 12/28 PO 2028 Budesonide/ 2 PUF BID 12/26 0900 AC 12/29 Formoterol Fumarate INH 0558 Cetirizine HCl 10 MG DAILY 12/27 1509 AC 12/28 PO 0841 Cholecalciferol 1,000 IU DAILY 12/26 0900 AC 12/28 PO 0840 Ciprofloxacin 2 GTT Q4H 12/29 1200 AC OPH 01/03 0801 Ciprofloxacin 2 GTT Q2 12/27 1000 DC 12/29 OPH 12/29 0801 0555 Diltiazem HCl 300 MG DAILY 12/26 0900 AC 12/28 PO 0855 Docusate Sodium 100 MG TID 12/28 0932 AC 12/28 PO 2028 Docusate Sodium 100 MG DAILY NEEDED PRN 12/27 1345 DC PO Gabapentin 300 MG Q8 12/28 1400 AC 12/29 PO 0555 Guaifenesin 10 ML .STK-MED ONE 12/28 0907 DC PO 12/28 0908 Guaifenesin/ 10 ML Q6 12/28 1200 AC 12/29 Dextromethorphan PO 0554 Heparin Sodium 5,000 UNIT Q8 12/26 0600 AC 12/29 (Porcine) SC 0555 Hydrochlorothiazide 25 MG DAILY 12/26 0900 AC 12/28 PO 0855 Hydrocodone Bitart/ 2 TAB Q4P PRN 12/28 1045 AC 12/29 Acetaminophen PO 0555 Hydrocodone Bitart/ 1 TAB Q4P PRN 12/28 1045 AC Acetaminophen PO Hydrocodone Bitart/ 2 TAB Q4P PRN 12/26 1815 DC 12/28 Acetaminophen PO 1005 Insulin Aspart 0 TIDAC 12/26 0800 AC 12/28 SC 1806 Lactobacillus 1 CAP 0600,1700 12/28 0600 AC 12/29 Acidophilus PO 0553 Losartan Potassium 100 MG DAILY 12/26 0900 AC 12/28 PO 0855 Magnesium Sulfate 1 GM ONCE ONE 12/28 0745 DC 12/28 Dextrose/Water 100 ML IV 12/28 1144 0916 Melatonin 9 MG QPM 12/26 2099 AC 12/28 PO 2026 Montelukast Sodium 10 MG AT BEDTIME 12/27 2100 AC 12/28 PO 2027 Morphine Sulfate 2 MG Q6P PRN 12/26 2030 AC 12/28 IV 1102 Nystatin 1 ALVARO TID 12/26 2099 AC 12/28 TOP 2028 Omeprazole 40 MG DAILY AC 12/26 0700 AC 12/29 PO 0554 Polyethylene Glycol 17 GM DAILY 12/28 0933 AC 12/29 PO 0816 Rosuvastatin Calcium 20 MG 1700 12/26 1700 AC 12/28 PO 1627 Senna 187 MG AT BEDTIME NEED.. 12/28 0945 AC PO Sodium Chloride 2 SPRAY Q4P PRN 12/26 2215 AC 12/27 KIM 0818 Vancomycin HCl 1,500 MG DAILY 12/26 09 AC 12/28 Sodium Chloride 250 ML IV 1048 Last 24 Hrs of Lab/Chucky Results Last 24 Hrs of Labs/Mics: Laboratory Tests 12/29/17 0600: PT 12.0, INR 1.10, CBC w Diff NO MAN DIFF REQ, RBC 3.00 L, MCV 84.9, MCH 27.5, MCHC 32.3 L, RDW 14.8 H, MPV 8.7, Gran % 62.4, Lymphocytes % 18.8 L, Monocytes % 11.0 H, Eosinophils % 7.4 H, Basophils % 0.4, Absolute Granulocytes 7.3 H, Absolute Lymphocytes 2.2, Absolute Monocytes 1.3 H, Absolute Eosinophils 0.9, Absolute Basophils 0 Assessment/Plan Assessment: 72-year-old woman with past medical history of TIA, hyperlipidemia, hypertension , asthma, bronchitis, COPD, MRSA, GERD, OA, chronic back pain status post spinal fusion, dox-nofuqan-pzbkkwuem diabetes mellitus, and 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 S/p washout/I&D with removal of hardware and CLARIBEL drain x2 on . Postoperatively, she was transferred to the ICU for BP monitoring. Patient today with better pain control, now back at her baseline. C/o productive cough likely related to her poor ambulatory status and respiratory effort impaired by pain. #Surgical Site infection Patient with leukocytosis on admit and persistent drainage now s/p I&D and hardware removal with negative cultures. She is currently on vancomycin (day #4) , plan is to continue for a 6 week course with weekly ESR monitoring to evaluate response. PLAN -Encourage moving as tolerated -IV vancomycin (day #4), trough level with her next dose. -Weekly ESR while on vanc -Anticoagulation with coumadin to be restarted at 5PM on 12/[address] Najera. -Pain control with her home regimen: Vicodin BID for moderate pain, Morphine 1g for severe pain PRN -ISS with bedside glucose monitoring -Antitussive therapy with guaifenesin and benzonatate FULL CODE DVT PPX: sq heparin Consistent Carbohydrate 3 Problem List: 1. Surgical wound infection Pain Ratin Pain Location: back Pain Goal: Pain 4 or less Pain Plan: pathway Tomorrow's Labs & Rationales: Liv Coe 12/29/17 1258: Attending MD Review Statement Attending Statement Attending MD Statement: examined this patient, discuss w/resident/PA/CYBER FORENSICS ANALYST, agreed w/resident/PA/CYBER FORENSICS ANALYST, reviewed EMR data (avail), discussed with nursing, discussed with case mgmt Attending Assessment/Plan: 72 F with PMH of COPD, HTN, DM, OA, spinal stenosis and chronic back pain, s/p decompressive lumbar laminectomy L2-S1 almost 3 months prior to admission, with insertion of a cage and pedicle screws and removal of the old screws from a previous spinal fusion 4 years ago, with her postop course complicated by anemia , requiring 6 units of blood and a right upper extremity DVT secondary to a prior PICC, for which she has remained on Coumadin, readmitted 8 weeks prior to admission with a surgical site infection secondary to Klebsiella, status post I& D with retention of the hardware, and discharged on Ciprofloxacin, readmitted 3 1/2 weeks prior to admission with persistent drainage from her incision, status post I&D with retention of the hardware, with the OR cultures positive for MRSA, discharged on Vancomycin alone, admitted again because of persistent drainage from her incision and underwent on 12/25- revision of lumbar wound,I&D of lumbar wound ,exploration of fusion and removal of hardware bilateral. Pt currently on vancomycin. plan is to cont on that per ID till 02/05. But pt surveillance culture grew VRE, so will d/w ID the culture results. DVT proph- on heparin sc for now. Off coumadin ( Which she was on for Upper extremity DVT) . Will check with NSG if they are ok with resuming it tonight. d/w pt the care plan.
--- NOTE | 2017-12-29 07:36 | Patient Discharge Instructions ---
Discharge Instructions General Discharge Information You were seen/treated for: SURGICAL SITE INFECTION Special Instructions: 1. PLEASE FOLLOW UP WITH YOUR PCP IN ONE WEEK 2. PLEASE FOLLOW UP WITH DR. MURRELL IN ONE WEEK 3. PLEASE COME TO [facility] OR ANY OTHER LAB ON THURSDAY 01/04 FOR VANCO TROUGH, CBC, BEP, ESR ON THURSDAY AND WEEKLY WHILE ON VANCOMYCIN 4. TAKE VANCOMYCIN UNTIL January AND THEN STOP 5. PLEASE GET INR DRAW ON TUESDAY 01/02 BY VISITING NURSE Diet Continue normal diet: Yes Activity Full Activity/No Limits: Yes ( TOLERATED) Acute Coronary Syndrome Inclusion Criteria At DC or during hospital stay patient has or had the following: ACS DIAGNOSIS No Discharge Core Measures Meds if any: Prescribed or Continued at Discharge Meds if any: NOT Prescribed or Continued at Discharge Congestive Heart Failure Inclusion Criteria At DC or during hospital stay patient has or had the following: CHF DIAGNOSIS No Discharge Core Measures Meds if any: Prescribed or Continued at Discharge Meds if any: NOT Prescribed or Continued at Discharge Cerebrovascular accident Inclusion Criteria At DC or during hospital stay patient has or had the following: CVA/TIA Diagnosis No Discharge Core Measures Meds if any: Prescribed or Continued at Discharge Meds if any: NOT Prescribed or Continued at Discharge Venous thromboembolism Inclusion Criteria VTE Diagnosis No VTE Type NONE VTE Confirmed by (Test) NONE Discharge Core Measures - Per Current guidelines, there needs to be overlap - treatment for the first 5 days of Warfarin therapy. - If discharged on Warfarin prior to 5 days of - overlap therapy, the patient will need to be - assessed for post discharge needs including - *Post discharge parental anticoagulation - *Warfarin and/or parental anticoagulation education - *Follow up date to check INR post discharge At least 5 days overlap therapy as Inpatient No Meds if any: Prescribed or Continued at Discharge Note: Overlap Therapy is Warfarin and Anticoagulant Meds if any: NOT Prescribed or Continued at Discharge
[2017-12-29 08:01] LABS: ABSOLUTE BASOPHIL COUNT 0 /CUMM (0.0-0.2); ABSOLUTE EOSINOPHIL COUNT 0.9 /CUMM (0.0-0.7); ABSOLUTE GRANULOCYTE CT 7.3 /CUMM (1.4-6.5); ABSOLUTE LYMPH COUNT 2.2 /CUMM (1.2-3.4); ABSOLUTE MONOCYTE COUNT 1.3 /CUMM (0.10-0.60); BASOPHIL % 0.4 % (0.0-2.0); EOSINOPHIL % 7.4 % (0-5); GRANULOCYTE % 62.4 % (42.2-75.2); HEMATOCRIT 25.5 % (37-47); MEAN CORPUSCULAR HGB 27.5 PG (27.0-31.0); MEAN CORPUSCULAR HGB CONC 32.3 G/DL (33.0-37.0); MEAN CORPUSCULAR VOLUME 84.9 FL (81.0-99.0); MEAN PLATELET VOLUME 8.7 FL (7.4-10.4); PLATELET COUNT 289 /CUMM (130-400); RBC DISTRIBUTION WIDTH 14.8 % (11.5-14.5); WHITE BLOOD CELL COUNT 11.6 /CUMM (4.8-10.8)
[2017-12-29 08:24] VITALS: BP 132/50
--- NOTE | 2017-12-29 09:45 | PN- Neurosurgical ---
Surgical Brief Attending Note Brief Attending Note: POD#4 somewhat more comfortable no motor deficits cultures from OR negative so far continue Vancomycin Ambulate with brace and with PT
--- NOTE | 2017-12-29 10:26 | PN- Orthopedic ---
Subjective Subjective: pt sitting in chair, pain 5/10. thinks that she got too much pain medication this morning as she felt dizzy and had double vision. feeling much better now. Deneis Cp/SOB, PARNELL and fevers. Still no BM. tolerating diet, voiding Objective Vital Signs and I&Os Vital Signs Date Time Temp Pulse Resp B/P B/P Pulse O2 O2 Flow FiO2 Mean Ox Delivery Rate 12/29 0906 95 Room Air 12/29 0856 85 132/50 12/29 0824 78 132/50 12/29 0648 98.2 73 18 168/74 95 Room Air 12/29 0000 Room Air 12/28 2136 98.1 81 18 146/60 97 12/28 2051 95 Room Air Room Air 12/28 1600 Room Air 12/28 1517 98.6 78 20 168/58 96 Intake & Output 12/29 1600 12/29 0800 12/29 0000 12/28 1600 12/28 0800 12/28 0000 Intake Total 120 120 596 402 4476 Output Total 15 30 730 Balance 120 105 320 120 270 Intake, Oral 120 120 086 932 0852 Number 0 Bowel Movements Output, 15 30 30 Drainage Output, Urine 700 Patient 176 lb 183 lb Weight Physical Exam: gen- NAD resp- clear abd- soft, NT back- maya in midline, minimal drainage on dressing, no surrounding errythema. dressing changed, clean dry dressing applied. Back brace Current Medications: Current Medications Sig/Clementine Start time Last Medication Dose Route Stop Time Status Admin Acetaminophen 1,000 MG Q6P PRN 12/25 2315 AC 12/26 N/A 1 UNIT IV 0918 Albuterol Sulfate 3 ML TID 12/28 2100 AC 12/29 INH 0906 Albuterol Sulfate 2 PUF Q4 PRN 12/27 1507 AC 12/27 INH 1430 Albuterol Sulfate 3 ML Q4P PRN 12/27 1130 DC 12/28 INH 0919 Artificial Tears 2 GTT TID 12/26 1723 AC 12/28 OPH 2027 Ascorbic Acid 500 MG DAILY 12/26 0900 AC 12/29 PO 0856 Benzonatate 200 MG TID 12/28 1004 AC 12/29 PO 0856 Budesonide/ 2 PUF BID 12/26 0900 AC 12/29 Formoterol Fumarate INH 0558 Cetirizine HCl 10 MG DAILY 12/27 1509 AC 12/29 PO 0857 Cholecalciferol 1,000 IU DAILY 12/26 0900 AC 12/29 PO 0857 Ciprofloxacin 2 GTT Q4H 12/29 1200 AC OPH 01/03 0801 Ciprofloxacin 2 GTT Q2 12/27 1000 DC 12/29 OPH 12/29 0801 0555 Diltiazem HCl 300 MG DAILY 12/26 0900 AC 12/29 PO 0855 Docusate Sodium 100 MG TID 12/28 0932 AC 12/29 PO 0856 Gabapentin 300 MG Q8 12/28 1400 AC 12/29 PO 0555 Guaifenesin/ 10 ML Q6 12/28 1200 AC 12/29 Dextromethorphan PO 0554 Heparin Sodium 5,000 UNIT Q8 12/26 0600 AC 12/29 (Porcine) SC 0555 Hydrochlorothiazide 25 MG DAILY 12/26 0900 AC 12/29 PO 0856 Hydrocodone Bitart/ 2 TAB Q4P PRN 12/28 1045 AC 12/29 Acetaminophen PO 0555 Hydrocodone Bitart/ 1 TAB Q4P PRN 12/28 1045 Acetaminophen PO Hydrocodone Bitart/ 2 TAB Q4P PRN 12/26 1815 DC 12/28 Acetaminophen PO 1005 Insulin Aspart 0 TIDAC 12/26 0800 AC 12/28 SC 1806 Lactobacillus 1 CAP 0600,1700 12/28 0600 AC 12/29 Acidophilus PO 0553 Losartan Potassium 100 MG DAILY 12/26 0900 AC 12/29 PO 0856 Magnesium Sulfate 1 GM ONCE ONE 12/28 0745 DC 12/28 Dextrose/Water 100 ML IV 12/28 1144 0916 Melatonin 9 MG QPM 12/26 2100 AC 12/28 PO 202 Montelukast Sodium 10 MG AT BEDTIME 12/27 2100 AC 12/28 PO 2028 Morphine Sulfate 2 MG Q6P PRN 12/26 2030 AC 12/28 IV 1102 Nystatin 1 ALVARO TID 12/26 2100 AC 12/29 TOP 0932 Omeprazole 40 MG DAILY AC 12/26 0700 AC 12/29 PO 0554 Polyethylene Glycol 17 GM DAILY 12/28 0933 AC 12/29 PO 0816 Rosuvastatin Calcium 20 MG 1700 07/14 1700 AC 12/28 PO 1627 Senna 187 MG AT BEDTIME NEED.. 12/28 0945 AC PO Sodium Chloride 2 SPRAY Q4P PRN 12/26 2215 AC 12/27 KIM 0818 Vancomycin HCl 1,500 MG DAILY 12/26 0900 AC 12/29 Sodium Chloride 250 ML IV 0932 Results Last 48 Hours of Labs: Laboratory Tests 12/29 12/29 0910 0600 Coagulation PT (9.4 - 12.5 SEC) 12.0 INR (0.90 - 1.19) 1.10 Hematology CBC w Diff NO MAN DIFF REQ WBC (4.8 - 10.8 /CUMM) 11.6 H RBC (4.20 - 5.40 /CUMM) 3.00 L Hgb (12.0 - 16.0 G/DL) 8.2 L Hct (37 - 47 %) 25.5 L MCV (81.0 - 99.0 FL) 84.9 MCH (27.0 - 31.0 PG) 27.5 MCHC (33.0 - 37.0 G/DL) 32.3 L RDW (11.5 - 14.5 %) 14.8 H Plt Count (130 - 400 /CUMM) 289 MPV (7.4 - 10.4 FL) 8.7 Gran % (42.2 - 75.2 %) 62.4 Lymphocytes % (20.5 - 51.1 %) 18.8 L Monocytes % (1.7 - 9.3 %) 11.0 H Eosinophils % (0 - 5 %) 7.4 H Basophils % (0.0 - 2.0 %) 0.4 Absolute Granulocytes (1.4 - 6.5 /CUMM) 7.3 H Absolute Lymphocytes (1.2 - 3.4 /CUMM) 2.2 Absolute Monocytes (0.10 - 0.60 /CUMM) 1.3 H Absolute Eosinophils (0.0 - 0.7 /CUMM) 0.9 Absolute Basophils (0.0 - 0.2 /CUMM) 0 Toxicology Vancomycin Trough (10.0 - 20.0 ug/mL) 12.4 12/28 0400 Chemistry Sodium (137 - 145 mmol/L) 138 Potassium (3.5 - 5.1 mmol/L) 4.2 Chloride (98 - 107 mmol/L) 101 Carbon Dioxide (22 - 30 mmol/L) 32 H Anion Gap (5 - 16) 5 BUN (7 - 17 mg/dL) 8 Creatinine (0.5 - 1.0 mg/dL) 0.6 Estimated GFR (>60 ml/min) > 60 BUN/Creatinine Ratio (7 - 25 %) 13.3 Magnesium (1.6 - 2.3 mg/dL) 1.6 Hematology CBC w Diff NO MAN DIFF REQ WBC (4.8 - 10.8 /CUMM) 12.8 H RBC (4.20 - 5.40 /CUMM) 2.98 L Hgb (12.0 - 16.0 G/DL) 8.2 L Hct (37 - 47 %) 24.9 L MCV (81.0 - 99.0 FL) 83.6 MCH (27.0 - 31.0 PG) 27.4 MCHC (33.0 - 37.0 G/DL) 32.8 L RDW (11.5 - 14.5 %) 14.1 Plt Count (130 - 400 /CUMM) 238 MPV (7.4 - 10.4 FL) 8.9 Gran % (42.2 - 75.2 %) 65.3 Lymphocytes % (20.5 - 51.1 %) 17.1 L Monocytes % (1.7 - 9.3 %) 12.3 H Eosinophils % (0 - 5 %) 4.7 Basophils % (0.0 - 2.0 %) 0.6 Absolute Granulocytes (1.4 - 6.5 /CUMM) 8.4 H Absolute Lymphocytes (1.2 - 3.4 /CUMM) 2.2 Absolute Monocytes (0.10 - 0.60 /CUMM) 1.6 H Absolute Eosinophils (0.0 - 0.7 /CUMM) 0.6 Absolute Basophils (0.0 - 0.2 /CUMM) 0.1 ESR Westergren (0 - 20 MM) 80 H Assessment/Plan Assessment/Plan Pt is a 72yo F with persistent draining lumbar wound, now POD #4 s/p washout/I&D with removal of hardware. Dr Najera saw the patient yesterday and changed the dressing and removed both CLARIBEL drains. She remains stable at this time. Plan: -Vancomycin 1.5g daily as per ID recommendations. Monitor temps and WBC. -Pain control- standing gabapentin for baseline pain management with prn vicodin -Physical therapy -Bowel regimen -Ok SC heparin. To resume coumadin today at 5pm per Dr. Najera -Medical management per critical care team. -Will d/w Dr. Najera. Core Measures Venous Thromboembolism VTE Risk Factors Age>40 No Mechanical VTE Prophylaxis d/t N/A MechProphylax Ordered No VTE Pharm Prophylaxis d/t NA PharmProphylax ordered
--- NOTE | 2017-12-29 12:12 | PN- Pulmonary ---
Subjective HPI/Critical Care Issues: pt seen and examined cough persists, some yellowish phlegm still with some wheezing, improved with nebs Objective Current Medications: Current Medications Sig/Clementine Start time Last Medication Dose Route Stop Time Status Admin Acetaminophen 1,000 MG Q6P PRN 12/25 2315 AC 12/26 N/A 1 UNIT IV 0918 Albuterol Sulfate 3 ML TID 12/28 2100 AC 12/29 INH 0906 Albuterol Sulfate 2 PUF Q4 PRN 12/27 1507 AC 12/27 INH 1430 Albuterol Sulfate 3 ML Q4P PRN 12/27 1130 DC 12/28 INH 0919 Artificial Tears 2 GTT TID 12/26 1723 AC 12/28 OPH 2027 Ascorbic Acid 500 MG DAILY 12/26 0900 AC 12/29 PO 0856 Benzonatate 200 MG TID 12/28 1004 AC 12/29 PO 0856 Budesonide/ 2 PUF BID 12/26 0900 AC 12/29 Formoterol Fumarate INH 0558 Cetirizine HCl 10 MG DAILY 12/27 1509 AC 12/29 PO 0857 Cholecalciferol 1,000 IU DAILY 12/26 0900 AC 12/29 PO 0857 Ciprofloxacin 2 GTT Q4H 12/29 1200 AC OPH 01/03 0801 Ciprofloxacin 2 GTT Q2 12/27 1000 DC 12/29 OPH 12/29 0801 0555 Diltiazem HCl 300 MG DAILY 12/26 0900 AC 12/29 PO 0855 Docusate Sodium 100 MG TID 12/28 0932 AC 12/29 PO 0856 Gabapentin 300 MG Q8 12/28 1400 AC 12/29 PO 0555 Guaifenesin/ 10 ML Q6 12/28 1200 AC 12/29 Dextromethorphan PO 0554 Heparin Sodium 5,000 UNIT Q8 12/26 0600 AC 12/29 (Porcine) SC 0555 Hydrochlorothiazide 25 MG DAILY 12/26 0900 AC 12/29 PO 0856 Hydrocodone Bitart/ 2 TAB Q4P PRN 12/28 1045 AC 12/29 Acetaminophen PO 0555 Hydrocodone Bitart/ 1 TAB Q4P PRN 12/28 1045 AC 12/29 Acetaminophen PO 1157 Insulin Aspart 0 TIDAC 12/26 0800 AC 12/28 SC 1806 Lactobacillus 1 CAP 0600,1700 12/28 0600 AC 12/29 Acidophilus PO 0553 Losartan Potassium 100 MG DAILY 12/26 09 AC 12/29 PO 0856 Melatonin 9 MG QPM 12/26 2100 AC 12/28 PO 2026 Montelukast Sodium 10 MG AT BEDTIME 12/27 2099 AC 12/28 PO 2027 Morphine Sulfate 2 MG Q6P PRN 12/26 2030 AC 12/28 IV 1102 Nystatin 1 ALVARO TID 12/26 2100 AC 12/29 TOP 0932 Omeprazole 40 MG DAILY AC 12/26 07 AC 12/29 PO 0554 Polyethylene Glycol 17 GM DAILY 12/28 0933 AC 12/29 PO 0816 Rosuvastatin Calcium 20 MG 1700 12/26 1700 AC 12/28 PO 1627 Senna 187 MG AT BEDTIME NEED.. 12/28 0945 PO Sodium Chloride 2 SPRAY Q4P PRN 12/26 2215 AC 12/27 KIM 0818 Vancomycin HCl 1,500 MG DAILY 12/26 09 AC 12/29 Sodium Chloride 250 ML IV 0932 Vital Signs & I&O Last 24 Hrs of Vitals and I&O: Vital Signs Date Time Temp Pulse Resp B/P B/P Pulse O2 O2 Flow FiO2 Mean Ox Delivery Rate 12/29 0906 95 Room Air 12/29 0856 85 132/50 12/29 0824 78 132/50 12/29 0800 95 Room Air 12/29 0648 98.2 73 18 168/74 95 Room Air 12/29 0000 Room Air 12/28 2136 98.1 81 18 146/60 97 12/28 2051 95 Room Air Room Air 12/28 1600 Room Air 12/28 1517 98.6 78 20 168/58 96 Intake & Output 12/29 1600 12/29 0800 12/29 0000 Intake Total 120 120 Output Total 15 Balance 120 105 Intake, Oral 120 120 Output, 15 Drainage Patient 176 lb Weight Exam Other Physical Findings: [id number] head/neck-room air cvs-s1,s2 lungs-anterior chest overall clear abd-soft, bs+ ext-without edema Results Last 24 Hrs of Lab Results: Laboratory Tests 12/29/17 0910: Vancomycin Trough 12.4 12/29/17 0600: PT 12.0, INR 1.10, CBC w Diff NO MAN DIFF REQ, RBC 3.00 L, MCV 84.9, MCH 27.5, MCHC 32.3 L, RDW 14.8 H, MPV 8.7, Gran % 62.4, Lymphocytes % 18.8 L, Monocytes % 11.0 H, Eosinophils % 7.4 H, Basophils % 0.4, Absolute Granulocytes 7.3 H, Absolute Lymphocytes 2.2, Absolute Monocytes 1.3 H, Absolute Eosinophils 0.9, Absolute Basophils 0 Impression/Plan Impression/Plan Impression/Plan: Impression 72 year old woman * removal of hardware for surgical site infection * asthma/reactive airways disease Plan -incentive spirometry -trc/nebs -ry buchanan -yazitussin dm -continue vancomycin/ID recommendations -nasal spray please add - takes dymista at home DVT prophylaxis at all times
[2017-12-29 14:44] VITALS: BP 176/52
[2017-12-29 16:20] VITALS: BP 158/56
[2017-12-29 21:43] VITALS: BP 162/52
[2017-12-30 06:38] VITALS: BP 150/70
--- NOTE | 2017-12-30 07:20 | PN- Housestaff ---
Christopher HARRIS,Shari 12/30/17 0719: Subjective Follow-up For: surgical site infection Subjective: Patient seen and examined. She states that she has worsened back and left leg pain that she describes as "spasmy". Her vital signs are stable. The patient has been attempting to ambulate. She notes that her current pain regimen of gabapentin and Vicodin are not covering her pain. She also attributes these medications to her upper GI yesterday. She has no other complaints, no urinary changes, has had bowel movement. Review of Systems Constitutional: Reports: weakness. EENTM: Reports: no symptoms. Cardiovascular: Reports: no symptoms. Respiratory: Reports: no symptoms. Gastrointestinal: Reports: no symptoms. Genitourinary: Reports: no symptoms. Musculoskeletal: Reports: back pain, joint pain. Skin: Reports: see HPI, lesions. Neurological/Psychological: Reports: no symptoms. Hematologic/Endocrine: Reports: no symptoms. Objective Last 24 Hrs of Vital Signs/I&O Vital Signs Date Time Temp Pulse Resp B/P B/P Pulse O2 O2 Flow FiO2 Mean Ox Delivery Rate 12/30 0900 95 Room Air 12/30 0638 98.4 75 18 150/70 94 Room Air 12/29 2143 98.7 78 18 162/52 96 Room Air 12/29 1848 Room Air 12/29 1620 82 158/56 12/29 1600 95 Room Air Intake & Output 12/30 1600 12/30 0800 12/30 0000 Intake Total 400 760 Output Total Balance 400 760 Intake, Oral 400 760 Number 1 Bowel Movements Patient 175 lb Weight Weight Bed scale Measurement Method Physical Exam General Appearance: Alert, Oriented X3, Cooperative, No Acute Distress Skin: No Rashes, No Breakdown, surgical site is clean and dry, dressed Skin Temp/Moisture Exam: Warm/Dry Sepsis Skin Exam (color): Normal for Ethnicity HEENT: Atraumatic, EOMI, Mucous Membr. moist/pink Neck: Supple, No JVD Cardiovascular: Regular Rate, Normal S1, Normal S2, No Murmurs Lungs: Clear to Auscultation, Normal Air Movement Abdomen: Normal Bowel Sounds, Soft, No Tenderness Neurological: Normal Speech, Normal Tone, Sensation Intact Extremities: No Clubbing, No Cyanosis, No Edema, Normal Pulses Current Medications: Current Medications Sig/Clementine Start time Last Medication Dose Route Stop Time Status Admin Acetaminophen 1,000 MG Q6P PRN 12/25 2315 AC 12/26 N/A 1 UNIT IV 0918 Albuterol Sulfate 3 ML TID 12/28 2100 AC 12/30 INH 1330 Albuterol Sulfate 2 PUF Q4 PRN 12/27 1507 AC 12/27 INH 1430 Alteplase, 2 MG ONE ONE 12/30 1000 DC 12/30 Recombinant IV 12/30 1001 1215 Artificial Tears 2 GTT TID 12/26 1723 AC 12/30 OPH 0825 Ascorbic Acid 500 MG DAILY 12/26 0900 AC 12/30 PO 0818 Benzonatate 200 MG TID 12/28 1004 AC 12/30 PO 0818 Budesonide/ 2 PUF BID 12/26 0900 AC 12/30 Formoterol Fumarate INH 0825 Cetirizine HCl 10 MG DAILY 12/27 1509 AC 12/30 PO 0825 Cholecalciferol 1,000 IU DAILY 12/26 0900 AC 12/30 PO 0819 Ciprofloxacin 2 GTT Q4H 12/29 1200 AC 12/30 OPH 01/03 0801 1215 Diltiazem HCl 300 MG DAILY 12/26 0900 AC 12/30 PO 0819 Docusate Sodium 100 MG TID 12/28 0932 AC 12/30 PO 0819 Gabapentin 300 MG Q8 12/28 1400 AC 12/30 PO 0632 Guaifenesin/ 10 ML Q6 12/28 1200 AC 12/30 Dextromethorphan PO 1215 Heparin Sodium 5,000 UNIT Q8 12/26 0600 AC 12/30 (Porcine) SC 0440 Hydrochlorothiazide 25 MG DAILY 12/26 0900 AC 12/30 PO 0818 Hydrocodone Bitart/ 2 TAB Q4P PRN 12/28 1045 AC 12/30 Acetaminophen PO 1215 Hydrocodone Bitart/ 1 TAB Q4P PRN 12/28 1045 AC 12/30 Acetaminophen PO 0831 Insulin Aspart 0 TIDAC 12/26 0800 AC 12/30 SC 1215 Lactobacillus 1 CAP 0600,1700 12/28 0600 AC 12/30 Acidophilus PO 0819 Losartan Potassium 100 MG DAILY 12/26 0900 AC 12/30 PO 0818 Melatonin 9 MG QPM 12/26 2100 AC 12/29 PO 2037 Montelukast Sodium 10 MG AT BEDTIME 12/27 2100 AC 12/29 PO 204 Morphine Sulfate 2 MG Q6P PRN 12/26 2030 AC 12/28 IV 1102 Nystatin 1 ALVARO TID 12/26 2100 AC 12/30 TOP 0825 Omeprazole 40 MG DAILY AC 12/26 0700 AC 12/30 PO 0630 Polyethylene Glycol 17 GM DAILY 12/28 0933 AC 12/30 PO 0818 Rosuvastatin Calcium 20 MG 1700 12/26 1700 AC 12/29 PO 1723 Senna 187 MG AT BEDTIME NEED.. 12/28 0945 AC PO Sodium Chloride 2 SPRAY Q4P PRN 12/26 2215 AC 12/30 KIM 0825 Vancomycin HCl 1,750 MG DAILY 12/31 09 AC Sodium Chloride 500 ML IV Vancomycin HCl 1,500 MG DAILY 12/26 0900 DC 12/30 Sodium Chloride 250 ML IV 1027 Warfarin Sodium 5 MG COUMADIN 1700 ONE 12/29 1700 DC 12/29 PO 12/29 1701 1723 Last 24 Hrs of Lab/Chucky Results Last 24 Hrs of Labs/Mics: Laboratory Tests 12/30/17 1320: PT 12.1, INR 1.11, CBC w Diff NO MAN DIFF REQ, RBC 3.12 L, MCV 83.5, MCH 27.3, MCHC 32.7 L, RDW 14.9 H, MPV 8.0, Gran % 70.6, Lymphocytes % 14.9 L, Monocytes % 7.9, Eosinophils % 5.8 H, Basophils % 0.8, Absolute Granulocytes 9.7 H, Absolute Lymphocytes 2.0, Absolute Monocytes 1.1 H, Absolute Eosinophils 0.8, Absolute Basophils 0.1 Assessment/Plan Assessment: 72-year-old woman with past medical history of TIA, hyperlipidemia, hypertension , asthma, bronchitis, COPD, MRSA, GERD, OA, chronic back pain status post spinal fusion, [id number] diabetes mellitus, and 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 S/p washout/I&D with removal of hardware and CLARIBEL drain x2 on . Postoperatively, she was transferred to the ICU for BP monitoring. Patient today with better pain control, now back at her baseline. C/o productive cough likely related to her poor ambulatory status and respiratory effort impaired by pain. #Surgical Site infection Patient with leukocytosis on admit and persistent drainage now s/p I&D and hardware removal with negative cultures. She is currently on vancomycin (day #5) , plan is to continue for a 6 week course with weekly ESR monitoring to evaluate response. PLAN -Encourage moving as tolerated -IV vancomycin (day #6), being seen by infectious disease who has increased the vancomycin level to 1750 mg IV every 24 until February 05 with a CBC, BUN/ creatinine, ESR, Vanco trough next Thursday and weekly thereafter while she is on vancomycin. Patient has a PICC line. -We have contacted orthopedics for reassessment of her surgical site/pain medications as she has noted increased pain today on the gabapentin and Vicodin. Previously when she was on Vicodin and morphine she noted that her pain was better controlled. -We have restarted anticoagulation with Coumadin and will follow her INR. The Coumadin is for DVT found in September and she takes varying doses at home, most recently 10 mg and then 7.5 mg a days before her surgery. -I&D and HbA1c have been ordered as per patient request -ISS with bedside glucose monitoring -Antitussive therapy with guaifenesin and benzonatate FULL CODE DVT PPX: sq heparin WITH COUMADIN Consistent Carbohydrate 3 Problem List: 1. Surgical wound infection Pain Ratin Pain Location: BACK AND LEFT LEG Pain Goal: Pain 4 or less Pain Plan: GABAPENTIN AND VICODIN Tomorrow's Labs & Rationales: BEP INR Liv Malone 12/30/17 1241: Attending MD Review Statement Attending Statement Attending MD Statement: examined this patient, discuss w/resident/PA/RUBBING BED OPERATOR, agreed w/resident/PA/RUBBING BED OPERATOR, reviewed EMR data (avail), discussed with nursing, discussed with case mgmt Attending Assessment/Plan: 72 F with PMH of COPD, HTN, DM, OA, spinal stenosis and chronic back pain, s/p decompressive lumbar laminectomy L2-S1 almost 3 months prior to admission, with insertion of a cage and pedicle screws and removal of the old screws from a previous spinal fusion 4 years ago, with her postop course complicated by anemia , requiring 6 units of blood and a right upper extremity DVT secondary to a prior PICC, for which she has remained on Coumadin, readmitted 8 weeks prior to admission with a surgical site infection secondary to Klebsiella, status post I& D with retention of the hardware, and discharged on Ciprofloxacin, readmitted 3 1/2 weeks prior to admission with persistent drainage from her incision, status post I&D with retention of the hardware, with the OR cultures positive for MRSA, discharged on Vancomycin alone, admitted again because of persistent drainage from her incision and underwent on 12/25- revision of lumbar wound,I&D of lumbar wound ,exploration of fusion and removal of hardware bilateral. Pt currently on vancomycin. plan is to cont on that per ID till 02/05. But pt surveillance culture grew VRE, so will d/w ID the culture results. Pt already has PICC line and there is some issue with drawing blood, will have PICC nurse evaluate the PICC line. dw DVT upper extremity on 10/08/17 - on heparin sc for now. restarted on coumadin 5mg daily on 12/29. will f/u on INR. was held due to surgery. will plan dc once IV abx arranged as outpatient .
--- NOTE | 2017-12-30 10:03 | PN- Infect Dx ---
Subjective Subjective: Afebrile. She continues to complain of back pain and feeling cold Objective Last 24 Hrs of Vital Signs/I&O Vital Signs Date Time Temp Pulse Resp B/P B/P Pulse O2 O2 Flow FiO2 Mean Ox Delivery Rate 12/30 0900 95 Room Air 12/30 0638 98.4 75 18 150/70 94 Room Air 12/29 2143 98.7 78 18 162/52 96 Room Air 12/29 1848 Room Air 12/29 1620 82 158/56 12/29 1600 95 Room Air 12/29 1444 99.1 84 18 176/52 96 Room Air Intake & Output 12/30 1600 12/30 0800 12/30 0000 Intake Total 400 760 Output Total Balance 400 760 Intake, Oral 400 760 Number 1 Bowel Movements Patient 175 lb Weight Weight Bed scale Measurement Method Physical Exam Other Physical Findings: She appears more comfortable in no acute distress Back dressing intact, status post removal of drains Extremities trace edema both lower extremities; PICC in the left upper extremity with no inflammation at the site Results Last 24 Hours of Lab Results: Laboratory Tests 12/29 12/29 0910 0600 Coagulation PT (9.4 - 12.5 SEC) 12.0 INR (0.90 - 1.19) 1.10 Hematology CBC w Diff NO MAN DIFF REQ WBC (4.8 - 10.8 /CUMM) 11.6 H RBC (4.20 - 5.40 /CUMM) 3.00 L Hgb (12.0 - 16.0 G/DL) 8.2 L Hct (37 - 47 %) 25.5 L MCV (81.0 - 99.0 FL) 84.9 MCH (27.0 - 31.0 PG) 27.5 MCHC (33.0 - 37.0 G/DL) 32.3 L RDW (11.5 - 14.5 %) 14.8 H Plt Count (130 - 400 /CUMM) 289 MPV (7.4 - 10.4 FL) 8.7 Gran % (42.2 - 75.2 %) 62.4 Lymphocytes % (20.5 - 51.1 %) 18.8 L Monocytes % (1.7 - 9.3 %) 11.0 H Eosinophils % (0 - 5 %) 7.4 H Basophils % (0.0 - 2.0 %) 0.4 Absolute Granulocytes (1.4 - 6.5 /CUMM) 7.3 H Absolute Lymphocytes (1.2 - 3.4 /CUMM) 2.2 Absolute Monocytes (0.10 - 0.60 /CUMM) 1.3 H Absolute Eosinophils (0.0 - 0.7 /CUMM) 0.9 Absolute Basophils (0.0 - 0.2 /CUMM) 0 Toxicology Vancomycin Trough (10.0 - 20.0 ug/mL) 12.4 Last 24 Hours of Chucky Results: No new cultures Assessment/Plan ID Impression: Stable, status post removal of hardware from her spine 5 days ago because of persistent drainage, presumably related to a residual surgical site infection, despite her most recent I&D over 3 weeks prior to admission, with an area of purulent material apparently identified in the muscle layer at her recent. She remains afebrile, with a persistent, mild leukocytosis, on Vancomycin, with her OR cultures all negative. Her Vancomycin trough level of 12 is noted and her dose could be increased. Suggestion: 1. Increase Vancomycin to 1750 mg IV every 24 hours and continue until February 05 2. Repeat Vancomycin trough level with the 4th dose of this regimen 3. Weekly ESR while on Vancomycin
--- NOTE | 2017-12-30 13:06 | PN- Cardiology ---
Subjective Subjective: Cardiac status stable. No obvious arrhythmias detected. Objective Vital Signs and I&Os Vital Signs Date Time Temp Pulse Resp B/P B/P Pulse O2 O2 Flow FiO2 Mean Ox Delivery Rate 12/30 0900 95 Room Air 12/30 0638 98.4 75 18 150/70 94 Room Air 12/29 2143 98.7 78 18 162/52 96 Room Air 12/29 1848 Room Air 12/29 1620 82 158/56 12/29 1600 95 Room Air 12/29 1444 99.1 84 18 176/52 96 Room Air Intake & Output 12/30 1600 12/30 0800 12/30 0000 12/29 1600 12/29 0800 12/29 0000 Intake Total 400 760 780 120 120 Output Total 15 Balance 400 760 780 120 105 Intake, Oral 400 760 780 120 120 Number 1 0 Bowel Movements Output, 15 Drainage Patient 175 lb 176 lb Weight Weight Bed scale Measurement Method Current Medications: Current Medications Sig/Clementine Start time Last Medication Dose Route Stop Time Status Admin Acetaminophen 1,000 MG Q6P PRN 12/25 2315 AC 12/26 N/A 1 UNIT IV 0918 Albuterol Sulfate 3 ML TID 12/28 2100 AC 12/30 INH 0832 Albuterol Sulfate 2 PUF Q4 PRN 12/27 1507 AC 12/27 INH 1430 Alteplase, 2 MG ONE ONE 12/30 1000 DC 12/30 Recombinant IV 12/30 1001 1215 Artificial Tears 2 GTT TID 12/26 1723 AC 12/30 OPH 0825 Ascorbic Acid 500 MG DAILY 12/26 0900 AC 12/30 PO 0818 Benzonatate 200 MG TID 12/28 1004 AC 12/30 PO 0818 Budesonide/ 2 PUF BID 12/26 0900 AC 12/30 Formoterol Fumarate INH 0825 Cetirizine HCl 10 MG DAILY 12/27 1509 AC 12/30 PO 0825 Cholecalciferol 1,000 IU DAILY 12/26 0900 AC 12/30 PO 0819 Ciprofloxacin 2 GTT Q4H 12/29 1200 AC 12/30 OPH 01/03 0801 1215 Diltiazem HCl 300 MG DAILY 12/26 0900 AC 12/30 PO 0819 Docusate Sodium 100 MG TID 12/28 0932 AC 12/30 PO 0819 Gabapentin 300 MG Q8 12/28 1400 AC 12/30 PO 0632 Guaifenesin/ 10 ML Q6 12/28 1200 AC 12/30 Dextromethorphan PO 1215 Heparin Sodium 5,000 UNIT Q8 12/26 0600 AC 12/30 (Porcine) SC 0440 Hydrochlorothiazide 25 MG DAILY 12/26 0900 AC 12/30 PO 0818 Hydrocodone Bitart/ 2 TAB Q4P PRN 12/28 1045 AC 12/30 Acetaminophen PO 1215 Hydrocodone Bitart/ 1 TAB Q4P PRN 12/28 1045 AC 12/30 Acetaminophen PO 0831 Insulin Aspart 0 TIDAC 12/26 0800 AC 12/30 SC 1215 Lactobacillus 1 CAP 0600,1700 12/28 0600 AC 12/30 Acidophilus PO 0819 Losartan Potassium 100 MG DAILY 12/26 0900 AC 12/30 PO 0818 Melatonin 9 MG QPM 12/26 2100 AC 12/29 PO 2037 Montelukast Sodium 10 MG AT BEDTIME 12/27 2100 AC 12/29 PO 2041 Morphine Sulfate 2 MG Q6P PRN 12/26 2030 AC 12/28 IV 1102 Nystatin 1 ALVARO TID 12/26 2100 AC 12/30 TOP 0825 Omeprazole 40 MG DAILY AC 12/26 0700 AC 12/30 PO 0630 Polyethylene Glycol 17 GM DAILY 12/28 0933 AC 12/30 PO 0818 Rosuvastatin Calcium 20 MG 1700 12/26 1700 AC 12/29 PO 1723 Senna 187 MG AT BEDTIME NEED.. 12/28 0945 AC PO Sodium Chloride 2 SPRAY Q4P PRN 12/26 2215 AC 12/30 KIM 0825 Vancomycin HCl 1,750 MG DAILY 12/31 0900 AC Sodium Chloride 500 ML IV Vancomycin HCl 1,500 MG DAILY 12/26 0900 DC 12/30 Sodium Chloride 250 ML IV 1027 Warfarin Sodium 5 MG COUMADIN 1700 ONE 12/29 1700 DC 12/29 PO 12/29 1701 1723 Results Last 48 Hrs of Labs/Mics: Laboratory Tests 12/29/17 0910: Vancomycin Trough 12.4 12/29/17 0600: PT 12.0, INR 1.10, CBC w Diff NO MAN DIFF REQ, RBC 3.00 L, MCV 84.9, MCH 27.5, MCHC 32.3 L, RDW 14.8 H, MPV 8.7, Gran % 62.4, Lymphocytes % 18.8 L, Monocytes % 11.0 H, Eosinophils % 7.4 H, Basophils % 0.4, Absolute Granulocytes 7.3 H, Absolute Lymphocytes 2.2, Absolute Monocytes 1.3 H, Absolute Eosinophils 0.9, Absolute Basophils 0 Assessment/Plan Assessment/Plan Assessment: 1. Postoperative wound infection following lumbar laminectomy; stable, day 2 postop 2. 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 History of hypertension 4. Type 2 diabetes 5. Prior TIA 6. Mild normocytic anemia 7. New onset cough of unclear etiology Recommendations: * Continue current cardiac medication * Anticoagulation on hold until cleared by surgery to restart; at this point I believe it is safe for the patient to come off of the telemetry monitored service. Continue telemetry? No
[2017-12-30 14:12] LABS: PT 12.1 SEC (9.4-12.5)
[2017-12-30 14:15] LABS: ABSOLUTE BASOPHIL COUNT 0.1 /CUMM (0.0-0.2); ABSOLUTE EOSINOPHIL COUNT 0.8 /CUMM (0.0-0.7); ABSOLUTE GRANULOCYTE CT 9.7 /CUMM (1.4-6.5); ABSOLUTE MONOCYTE COUNT 1.1 /CUMM (0.10-0.60); BASOPHIL % 0.8 % (0.0-2.0); EOSINOPHIL % 5.8 % (0-5); GRANULOCYTE % 70.6 % (42.2-75.2); MEAN CORPUSCULAR HGB 27.3 PG (27.0-31.0); MEAN CORPUSCULAR HGB CONC 32.7 G/DL (33.0-37.0); MEAN CORPUSCULAR VOLUME 83.5 FL (81.0-99.0); PLATELET COUNT 358 /CUMM (130-400); RBC DISTRIBUTION WIDTH 14.9 % (11.5-14.5); RED BLOOD CELL CT 3.12 /CUMM (4.20-5.40); WHITE BLOOD CELL COUNT 13.7 /CUMM (4.8-10.8)
[2017-12-30 14:54] VITALS: BP 142/54
--- NOTE | 2017-12-30 17:09 | PN- Pulmonary ---
Subjective HPI/Critical Care Issues: pt seen and examined dc planning comfortable overall pain controlled cough remains, some phlegm, she feels attributed to allergies Objective Current Medications: Current Medications Sig/Clementine Start time Last Medication Dose Route Stop Time Status Admin Acetaminophen 1,000 MG Q6P PRN 12/25 2315 AC 12/26 N/A 1 UNIT IV 0918 Albuterol Sulfate 3 ML TID 12/28 2100 AC 12/30 INH 1330 Albuterol Sulfate 2 PUF Q4 PRN 12/27 1507 AC 12/27 INH 1430 Alteplase, 2 MG ONE ONE 12/30 1000 DC 12/30 Recombinant IV 12/30 1001 1215 Artificial Tears 2 GTT TID 12/26 1723 AC 12/30 OPH 1604 Ascorbic Acid 500 MG DAILY 12/26 0900 AC 12/30 PO 0818 Benzonatate 200 MG TID 12/28 1004 AC 12/30 PO 1603 Budesonide/ 2 PUF BID 12/26 0900 AC 12/30 Formoterol Fumarate INH 0825 Cetirizine HCl 10 MG DAILY 12/27 1509 AC 12/30 PO 0825 Cholecalciferol 1,000 IU DAILY 12/26 0900 AC 12/30 PO 0819 Ciprofloxacin 2 GTT Q4H 12/29 1200 AC 12/30 OPH 01/03 0801 1604 Diltiazem HCl 300 MG DAILY 12/26 0900 AC 12/30 PO 0819 Docusate Sodium 100 MG TID 12/28 0932 AC 12/30 PO 1603 Gabapentin 300 MG Q8 12/28 1400 AC 12/30 PO 1603 Guaifenesin/ 10 ML Q6 12/28 1200 AC 12/30 Dextromethorphan PO 1215 Heparin Sodium 5,000 UNIT Q8 12/26 0600 AC 12/30 (Porcine) SC 1604 Hydrochlorothiazide 25 MG DAILY 12/26 0900 AC 12/30 PO 0818 Hydrocodone Bitart/ 2 TAB Q4P PRN 12/28 1045 AC 12/30 Acetaminophen PO 1603 Hydrocodone Bitart/ 1 TAB Q4P PRN 12/28 1045 AC 12/30 Acetaminophen PO 0831 Insulin Aspart 0 TIDAC 12/26 0800 AC 12/30 SC 1215 Lactobacillus 1 CAP 0600,1700 12/28 0600 AC 12/30 Acidophilus PO 1604 Losartan Potassium 100 MG DAILY 12/26 0900 AC 12/30 PO 0818 Melatonin 9 MG QPM 12/26 2100 AC 12/29 PO 203 Montelukast Sodium 10 MG AT BEDTIME 12/27 2099 AC 12/29 PO 204 Morphine Sulfate 2 MG Q6P PRN 12/26 2030 AC 12/28 IV 1102 Nystatin 1 ALVARO TID 12/26 2100 AC 12/30 TOP 1604 Omeprazole 40 MG DAILY AC 12/26 07 AC 12/30 PO 0630 Polyethylene Glycol 17 GM DAILY 12/28 0933 AC 12/30 PO 0818 Rosuvastatin Calcium 20 MG 1700 12/26 1700 AC 12/30 PO 1604 Senna 187 MG AT BEDTIME NEED.. 12/28 0945 AC PO Sodium Chloride 2 SPRAY Q4P PRN 12/26 2215 AC 12/30 KIM 0825 Vancomycin HCl 1,750 MG DAILY 12/31 09 AC Sodium Chloride 500 ML IV Vancomycin HCl 1,500 MG DAILY 12/26 0900 DC 12/30 Sodium Chloride 250 ML IV 1027 Warfarin Sodium 5 MG COUMADIN 1700 ONE 12/30 1700 DC 12/30 PO 12/30 1701 1604 Vital Signs & I&O Last 24 Hrs of Vitals and I&O: Vital Signs Date Time Temp Pulse Resp B/P B/P Pulse O2 O2 Flow FiO2 Mean Ox Delivery Rate 12/30 1454 98.7 83 18 142/54 96 Room Air 12/30 0900 95 Room Air 12/30 0638 98.4 75 18 150/70 94 Room Air 12/29 2143 98.7 78 18 162/52 96 Room Air 12/29 1848 Room Air Intake & Output 12/30 1600 12/30 0800 12/30 0000 Intake Total 400 760 Output Total Balance 400 760 Intake, Oral 400 760 Number 1 Bowel Movements Patient 175 lb Weight Weight Bed scale Measurement Method Exam Other Physical Findings: [id number] head/neck-room air cvs-s1,s2 lungs-anterior chest overall clear abd-soft, bs+ ext-without edema Results Last 24 Hrs of Lab Results: Laboratory Tests 12/30/17 1320: PT 12.1, INR 1.11, CBC w Diff NO MAN DIFF REQ, RBC 3.12 L, MCV 83.5, MCH 27.3, MCHC 32.7 L, RDW 14.9 H, MPV 8.0, Gran % 70.6, Lymphocytes % 14.9 L, Monocytes % 7.9, Eosinophils % 5.8 H, Basophils % 0.8, Absolute Granulocytes 9.7 H, Absolute Lymphocytes 2.0, Absolute Monocytes 1.1 H, Absolute Eosinophils 0.8, Absolute Basophils 0.1 Impression/Plan Impression/Plan Impression/Plan: Impression 72 year old woman * removal of hardware for surgical site infection * asthma/reactive airways disease Plan -incentive spirometry -trc/nebs -tesemanion perlsheri (changed to 100mg po tid - order is in) -robitussin dm -f/u ID recommendations -nasal spray DVT prophylaxis at all times Will sign off at this time
[2017-12-31 06:35] VITALS: BP 154/58
--- NOTE | 2017-12-31 07:26 | PN- Housestaff ---
Christopher HARRIS,Shari 12/31/17 0726: Subjective Follow-up For: Surgical site infection Subjective: Patient was seen and examined. She states that she is feeling "okay" but still has a bit of pain in her lower back and left leg. Ray Najera MD came last night and change the dressing. The patient is getting Vicodin, gabapentin, morphine as needed for pain and last required a morphine last night as well as the Vicodin. She denies any cough, dyspnea, dysuria or increased urinary frequency. Review of Systems Constitutional: Reports: no symptoms. Cardiovascular: Reports: no symptoms. Respiratory: Reports: no symptoms. Gastrointestinal: Reports: no symptoms. Musculoskeletal: Reports: back pain, joint pain. Objective Last 24 Hrs of Vital Signs/I&O Vital Signs Date Time Temp Pulse Resp B/P B/P Pulse O2 O2 Flow FiO2 Mean Ox Delivery Rate 12/31 1444 98.3 83 18 168/48 98 Room Air 12/31 1050 96 Room Air 12/31 0835 74 154/56 12/31 0835 154/56 12/31 0800 Room Air 12/31 0635 98.8 74 18 154/58 97 Room Air 12/30 2020 99 Room Air Room Air Intake & Output 12/31 1600 12/31 0800 12/31 0000 Intake Total 822 120 120 Output Total Balance 822 120 120 Intake, Oral 822 120 120 Patient 177 lb Weight Physical Exam General Appearance: Alert, Oriented X3, Cooperative, No Acute Distress Skin: surgical site is clean and bandaged Skin Temp/Moisture Exam: Warm/Dry Sepsis Skin Exam (color): Normal for Ethnicity HEENT: Atraumatic, EOMI, Mucous Membr. moist/pink Neck: Supple, No JVD Cardiovascular: Regular Rate, Normal S1, Normal S2, No Murmurs Lungs: Clear to Auscultation, Normal Air Movement Abdomen: Normal Bowel Sounds, Soft, No Tenderness Extremities: No Clubbing, No Cyanosis, No Edema Current Medications: Current Medications Sig/Clementine Start time Last Medication Dose Route Stop Time Status Admin Acetaminophen 1,000 MG Q6P PRN 12/25 2315 AC 12/26 N/A 1 UNIT IV 0918 Albuterol Sulfate 3 ML TID 12/28 2100 AC 12/31 INH 1318 Albuterol Sulfate 2 PUF Q4 PRN 12/27 1507 AC 12/27 INH 1430 Artificial Tears 2 GTT TID 12/26 1723 AC 12/31 OPH 1338 Ascorbic Acid 500 MG DAILY 12/26 0900 AC 12/31 PO 0835 Baclofen 10 MG ONCE ONE 12/30 2200 DC 12/30 PO 12/30 2201 2320 Benzonatate 100 MG TID 12/30 2100 AC 12/31 PO 1337 Benzonatate 200 MG TID 12/28 1004 DC 12/30 PO 1603 Budesonide/ 2 PUF BID 12/26 0900 AC 12/31 Formoterol Fumarate INH 0836 Cetirizine HCl 10 MG DAILY 12/27 1509 AC 12/31 PO 0835 Cholecalciferol 1,000 IU DAILY 12/26 0900 AC 12/31 PO 0835 Ciprofloxacin 2 GTT Q4H 12/29 1200 AC 12/31 OPH 01/03 0801 1214 Diltiazem HCl 300 MG DAILY 12/26 0900 AC 12/31 PO 0836 Docusate Sodium 100 MG TID 12/28 0932 AC 12/31 PO 1337 Gabapentin 300 MG Q8 12/28 1400 AC 12/31 PO 1337 Guaifenesin/ 10 ML Q6 12/28 1200 AC 12/31 Dextromethorphan PO 1214 Heparin Sodium 5,000 UNIT Q8 12/26 0600 AC 12/31 (Porcine) SC 1337 Hydrochlorothiazide 25 MG DAILY 01/01 0900 AC PO Hydrochlorothiazide 25 MG DAILY 12/26 0900 DC 12/31 PO 0835 Hydrocodone Bitart/ 2 TAB Q4P PRN 12/28 1045 AC 12/31 Acetaminophen PO 1049 Hydrocodone Bitart/ 1 TAB Q4P PRN 12/28 1045 AC 12/30 Acetaminophen PO 0831 Insulin Aspart 0 TIDAC 12/26 0800 AC 12/31 SC 1214 Lactobacillus 1 CAP 0600,1700 12/28 0600 AC 12/31 Acidophilus PO 0558 Losartan Potassium 100 MG DAILY 12/26 0900 AC 12/31 PO 0835 Melatonin 9 MG QPM 12/26 2100 AC 12/30 PO 2156 Montelukast Sodium 10 MG AT BEDTIME 12/27 2100 AC 12/30 PO 2158 Morphine Sulfate 2 MG Q6P PRN 12/26 2030 AC 12/30 IV 2221 Nystatin 1 ALVARO TID 12/26 2100 AC 12/31 TOP 1338 Omeprazole 40 MG DAILY AC 12/26 0700 AC 12/31 PO 0558 Polyethylene Glycol 17 GM DAILY 12/28 0933 AC 12/31 PO 0835 Rosuvastatin Calcium 20 MG 1700 12/26 1700 AC 12/30 PO 1604 Senna 187 MG AT BEDTIME NEED.. 12/28 0945 AC PO Sodium Chloride 2 SPRAY Q4P PRN 12/26 2215 AC 12/31 KIM 0837 Vancomycin HCl 1,750 MG DAILY 12/31 09 AC 12/31 Sodium Chloride 500 ML IV 0949 Warfarin Sodium 5 MG COUMADIN 1700 ONE 12/31 1700 DC PO 12/31 1701 Warfarin Sodium 7.5 MG COUMADIN 1700 ONE 12/31 1700 AC 12/31 PO 12/31 170 1337 Warfarin Sodium 2.5 MG ONCE ONE 12/30 2129 DC 12/30 PO 12/30 213 2250 Warfarin Sodium 7.5 MG COUMADIN 1700 ONE 12/30 1815 CAN PO 12/30 1816 Warfarin Sodium 5 MG COUMADIN 1700 ONE 12/30 1700 DC 12/30 PO 12/30 1701 1604 Last 24 Hrs of Lab/Chucky Results Last 24 Hrs of Labs/Mics: Laboratory Tests 12/31/17 0610: Anion Gap 10, Estimated GFR > 60, BUN/Creatinine Ratio 18.8, PT 12.3, INR 1.13 Assessment/Plan Assessment: 72-year-old woman with past medical history of TIA, hyperlipidemia, hypertension , asthma, bronchitis, COPD, MRSA, GERD, OA, chronic back pain status post spinal fusion, [id number] diabetes mellitus, and 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 S/p washout/I&D with removal of hardware and CLARIBEL drain x2 on . Postoperatively, she was transferred to the ICU for BP monitoring. Patient today with better pain control, now back at her baseline. C/o productive cough likely related to her poor ambulatory status and respiratory effort impaired by pain. #Surgical Site infection Patient with leukocytosis on admit and persistent drainage now s/p I&D and hardware removal with negative cultures. She is currently on vancomycin (day #5) , plan is to continue for a 6 week course with weekly ESR monitoring to evaluate response. PLAN -Encourage moving as tolerated -IV vancomycin (day #7), being seen by infectious disease who has increased the vancomycin level to 1750 mg IV every 24 until February 05 with a CBC, BUN/ creatinine, ESR, Vanco trough next Thursday and weekly thereafter while she is on vancomycin. Patient has a left PICC line. -Patient will follow up with orthopedics, they last saw her last night and change her wound dressing. She will be discharged on Vicodin and gabapentin. -We have restarted anticoagulation with Coumadin and will follow her INR. The Coumadin is for DVT found in September and she takes varying doses at home, most recently 10 mg for 1 day and then 7.5 mg for 1 day on the 2 days before her surgery. We have written a prescription for patient to get INR blood draw by [facility] on Thursday with transmission of results to her PCP Dr. Rollins. Today patient's INR is still subtherapeutic so we will give 7.5 mg of Coumadin. -ISS with bedside glucose monitoring -Antitussive therapy with guaifenesin and benzonatate as needed FULL CODE DVT PPX: sq heparin WITH COUMADIN Consistent Carbohydrate 3 Problem List: 1. Surgical wound infection Pain Ratin Pain Location: left leg and back Pain Goal: Pain 4 or less Pain Plan: vicoden, morphine as needed, gabapentin Tomorrow's Labs & Rationales: patient is to be discharged MaloneAbel dwyerkofi 12/31/17 1441: Attending MD Review Statement Attending Statement Attending MD Statement: examined this patient, discuss w/resident/PA/PLUG WIRER, agreed w/resident/PA/PLUG WIRER, reviewed EMR data (avail), discussed with nursing, discussed with case mgmt Attending Assessment/Plan: plan dc today on iv vancomycin. nurse case manager is working on arranging supplies for iv vanco to be given at home. once it is arranged pt will be dced home. started back on po warfarin. pt will f/u with PCP for INR checks and dosing of coumadin. dw pt the care plan see dc summary for more details.
--- NOTE | 2017-12-31 08:07 | PN- Orthopedic ---
Subjective Subjective: Awake, alert No complaints overnight Brace is very uncomfortable but she is tolerating it Objective Vital Signs and I&Os Vital Signs Date Time Temp Pulse Resp B/P B/P Pulse O2 O2 Flow FiO2 Mean Ox Delivery Rate 12/31 0635 98.8 74 18 154/58 97 Room Air 12/30 2020 99 Room Air Room Air 12/30 1454 98.7 83 18 142/54 96 Room Air 12/30 0900 95 Room Air Intake & Output 12/31 1600 12/31 0800 12/31 0000 12/30 1600 12/30 0800 12/30 0000 Intake Total 120 120 400 760 Output Total Balance 120 120 400 760 Intake, Oral 120 120 400 760 Number 1 Bowel Movements Patient 177 lb 175 lb Weight Weight Bed scale Measurement Method Physical Exam: General: alert and oriented times three Chest: clear anteriorly bilaterally, RRR Abd: soft, good bs Ext: warm, no edema, normosensate all 4 ext with good 5/5 SKYE, PICC LUE - site clean and dry Wd: dressing changed, maya intact, no drainage or erythema, previous dressing with <1cm light serosang stain at inferior edge, no active drainage noted, the rest of the previous dressing is clean and dry Assessment/Plan Assessment/Plan 72yo female s/p lumbar wound drainage/removal of hardware, washout pod 6 Continue daily dressing changes vanco ordered per ID - dose increased yesterday - fu trough in 4 days per ID PICC LUE dc planning - ?home with services Continue PT as pt is deconditioned Core Measures Venous Thromboembolism VTE Risk Factors Age>40 No Mechanical VTE Prophylaxis d/t N/A MechProphylax Ordered No VTE Pharm Prophylaxis d/t NA PharmProphylax ordered
[2017-12-31 08:23] LABS: PT 12.3 SEC (9.4-12.5)
[2017-12-31 08:35] VITALS: BP 154/56
[2017-12-31] MEDS ORDERED: VANCO 1.251.25 GM/25 IV (08:54)
[2017-12-31] MEDS ORDERED: GABAPENTIN300 M2 PO ×3 (08:54→12:44)
[2017-12-31] MEDS ORDERED: DOCUSATE SODIU100 M3 PO (10:15)
[2017-12-31] MEDS ORDERED: MIRALAX119 GM PO (10:15)
[2017-12-31] MEDS ORDERED: HYDROCHLOROTHIA25 M1 PO ×2 (10:15→10:18)
[2017-12-31 14:44] VITALS: BP 168/48
--- NOTE | 2017-12-31 15:25 | PN- Cardiology ---
Subjective Subjective: The patient is doing somewhat better. Continues to have discomfort. Brace in place. Discharge pending. Objective Vital Signs and I&Os Vital Signs Date Time Temp Pulse Resp B/P B/P Pulse O2 O2 Flow FiO2 Mean Ox Delivery Rate 12/31 1444 98.3 83 18 168/48 98 Room Air 12/31 1050 96 Room Air 12/31 0835 74 154/56 12/31 0835 154/56 12/31 0800 Room Air 12/31 0635 98.8 74 18 154/58 97 Room Air 12/30 2020 99 Room Air Room Air Intake & Output 12/31 1600 12/31 0800 12/31 0000 12/30 1600 12/30 0800 12/30 0000 Intake Total 822 120 120 400 760 Output Total Balance 822 120 120 400 760 Intake, Oral 822 120 120 400 760 Number 1 Bowel Movements Patient 177 lb 175 lb Weight Weight Bed scale Measurement Method Current Medications: Current Medications Sig/Clementine Start time Last Medication Dose Route Stop Time Status Admin Acetaminophen 1,000 MG Q6P PRN 12/25 2315 AC 12/26 N/A 1 UNIT IV 0918 Albuterol Sulfate 3 ML TID 12/28 2100 AC 12/31 INH 1318 Albuterol Sulfate 2 PUF Q4 PRN 12/27 1507 AC 12/27 INH 1430 Artificial Tears 2 GTT TID 12/26 1723 AC 12/31 OPH 1338 Ascorbic Acid 500 MG DAILY 12/26 0900 AC 12/31 PO 0835 Baclofen 10 MG ONCE ONE 12/30 2200 DC 12/30 PO 12/30 2201 2320 Benzonatate 100 MG TID 12/30 2100 AC 12/31 PO 1337 Benzonatate 200 MG TID 12/28 1004 DC 12/30 PO 1603 Budesonide/ 2 PUF BID 12/26 0900 AC 12/31 Formoterol Fumarate INH 0836 Cetirizine HCl 10 MG DAILY 12/27 1509 AC 12/31 PO 0835 Cholecalciferol 1,000 IU DAILY 12/26 0900 AC 12/31 PO 0835 Ciprofloxacin 2 GTT Q4H 12/29 1200 AC 12/31 OPH 01/03 0801 1214 Diltiazem HCl 300 MG DAILY 12/26 0900 AC 12/31 PO 0836 Docusate Sodium 100 MG TID 12/28 0932 AC 12/31 PO 1337 Gabapentin 300 MG Q8 12/28 1400 AC 12/31 PO 1337 Guaifenesin/ 10 ML Q6 12/28 1200 AC 12/31 Dextromethorphan PO 1214 Heparin Sodium 5,000 UNIT Q8 12/26 0600 AC 12/31 (Porcine) SC 1337 Hydrochlorothiazide 25 MG DAILY 01/01 0900 AC PO Hydrochlorothiazide 25 MG DAILY 12/26 0900 DC 12/31 PO 0835 Hydrocodone Bitart/ 2 TAB Q4P PRN 12/28 1045 AC 12/31 Acetaminophen PO 1049 Hydrocodone Bitart/ 1 TAB Q4P PRN 12/28 1045 AC 12/30 Acetaminophen PO 0831 Insulin Aspart 0 TIDAC 12/26 0800 AC 12/31 SC 1214 Lactobacillus 1 CAP 0600,1700 12/28 0600 AC 12/31 Acidophilus PO 0558 Losartan Potassium 100 MG DAILY 12/26 0900 AC 12/31 PO 0835 Melatonin 9 MG QPM 12/26 2100 12/30 PO 2156 Montelukast Sodium 10 MG AT BEDTIME 12/27 2100 AC 12/30 PO 2158 Morphine Sulfate 2 MG Q6P PRN 12/26 2030 AC 12/30 IV 2221 Nystatin 1 ALVARO TID 12/26 2100 AC 12/31 TOP 1338 Omeprazole 40 MG DAILY AC 12/26 0700 AC 12/31 PO 0558 Polyethylene Glycol 17 GM DAILY 12/28 0933 AC 12/31 PO 0835 Rosuvastatin Calcium 20 MG 1700 12/26 1700 AC 12/30 PO 1604 Senna 187 MG AT BEDTIME NEED.. 12/28 0945 PO Sodium Chloride 2 SPRAY Q4P PRN 12/26 2215 12/31 KIM 0837 Vancomycin HCl 1,750 MG DAILY 12/31 0900 AC 12/31 Sodium Chloride 500 ML IV 0949 Warfarin Sodium 5 MG COUMADIN 1700 ONE 12/31 1700 DC PO 12/31 1701 Warfarin Sodium 7.5 MG COUMADIN 1700 ONE 12/31 1700 AC 12/31 PO 12/31 1701 1337 Warfarin Sodium 2.5 MG ONCE ONE 12/30 2130 DC 12/30 PO 12/30 2131 2250 Warfarin Sodium 7.5 MG COUMADIN 1700 ONE 12/30 1815 CAN PO 12/30 1816 Warfarin Sodium 5 MG COUMADIN 1700 ONE 12/30 1700 DC 12/30 PO 12/30 1701 1604 Results Last 48 Hrs of Labs/Mics: Laboratory Tests 12/31/17 0610: Anion Gap 10, Estimated GFR > 60, BUN/Creatinine Ratio 18.8, PT 12.3, INR 1.13 12/30/17 1320: PT 12.1, INR 1.11, CBC w Diff NO MAN DIFF REQ, RBC 3.12 L, MCV 83.5, MCH 27.3, MCHC 32.7 L, RDW 14.9 H, MPV 8.0, Gran % 70.6, Lymphocytes % 14.9 L, Monocytes % 7.9, Eosinophils % 5.8 H, Basophils % 0.8, Absolute Granulocytes 9.7 H, Absolute Lymphocytes 2.0, Absolute Monocytes 1.1 H, Absolute Eosinophils 0.8, Absolute Basophils 0.1 Assessment/Plan Assessment/Plan Assessment: 1. Postoperative wound infection following lumbar laminectomy; stable, day 2 postop 2. 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 History of hypertension 4. Type 2 diabetes 5. Prior TIA 6. Mild normocytic anemia 7. New onset cough of unclear etiology Recommendations: * Continue current cardiac medication * Anticoagulation on hold until cleared by surgery to restart; at this point I believe it is safe for the patient to come off of the telemetry monitored service. Continue telemetry? No
[2018-01-01] MEDS ORDERED: VITAMIN D10000 UNIT PO (18:19)
[2018-01-01] MEDS ORDERED: HYDROCODON-ACE1 EAC2 PO (18:21)
== END 2017-12-31 16:24 | disposition home health service (06) | DRG 857 ==
LOC: ERH 07:43 → ERHI 10:00 → ERH 10:00 → ERHI 10:30 → CRI 10:50 → 1NO 10:50 → ENRESERV 11:00 → ENTRNSPT 12:00 → EDTRNSPTSTS 12:19 → EDTRNSPT 12:19 → 2NA 12:34 → CMPTRNSPT 12:38 → CRI 22:29 → 1NO 12-28 09:57 → ENPENDDIS 12-31 12:45 → ENTRNSPT 12-31 15:51 → EDTRNSPTSTS 12-31 16:20 → EDTRNSPT 12-31 16:20 → 1NO 12-31 16:24 → CMPTRNSPT 12-31 16:35
PROVIDERS: Emergency Medicine; Internal Medicine; Orthopaedic Surgery Orthopaedic Surgery of the Spine; Physician Assistant; Physician Assistant Surgical; Student in an Organized Health Care Education/Training Program
PROC: 0QP004Z Removal of Internal Fixation Device from Lumbar Vertebra, Open Approach (ICD-10-PCS; principal; 2017-12-25)
PROC: 0JB70ZZ Excision of Back Subcutaneous Tissue and Fascia, Open Approach (ICD-10-PCS; principal; 2017-12-25)
PROC: 30233N1 Transfusion of Nonautologous Red Blood Cells into Peripheral Vein, Percutaneous Approach (ICD-10-PCS; 2017-12-25)
DX: T81.4XXA Infection following a procedure, initial encounter (principal); T81.32XA Disruption of internal operation (surgical) wound, not elsewhere classified, initial encounter; D62 Acute posthemorrhagic anemia; J44.9 Chronic obstructive pulmonary disease, unspecified; E11.9 Type 2 diabetes mellitus without complications; E78.5 Hyperlipidemia, unspecified; K21.9 Gastro-esophageal reflux disease without esophagitis; I10 Essential (primary) hypertension; I16.0 Hypertensive urgency; Z98.1 Arthrodesis status; Y83.8 Other surgical procedures as the cause of abnormal reaction of the patient, or of later complication, without mention of misadventure at the time of the procedure; Z79.84 Long term (current) use of oral hypoglycemic drugs; Z86.73 Personal history of transient ischemic attack (TIA), and cerebral infarction without residual deficits; Z88.2 Allergy status to sulfonamides; Z88.8 Allergy status to other drugs, medicaments and biological substances; Z88.1 Allergy status to other antibiotic agents; Z88.0 Allergy status to penicillin
CPT/HCPCS: 1NP; 87070; 87075; CCU; 36415; 71045; 72100; 82436; 86920; 93005; 93010; 96374; 97110-GO; 97116-GO; 97161-GP; 97530-GO; J0131; J1170; J1644; J2997; J3370; J3490; J7040; P9016

== ENCOUNTER 2018-01-04 18:59 | Inpatient (IN) | payer OTHER, MEDICARE ==
[~2018-01-04] VITALS: Ht 149.9 cm; Wt 78.7 kg
[~2018-01-04 18:59] MED LIST changes: +CRESTOR20 M2 PO; +HYDROCHLOROTHIA25 M1 PO; +VITAMIN D10000 UNIT PO
--- NOTE | 2018-01-04 19:25 | ED GENERAL ADULT ---
History of Present Illness General Chief Complaint: General Adult Stated Complaint: TO BE ADMITTED FOR BACK SURGERY PER MD Source: patient Exam Limitations: no limitations Vital Signs & Intake/Output Vital Signs & Intake/Output Vital Signs Date Time Temp Pulse Resp B/P B/P Pulse O2 O2 Flow FiO2 Mean Ox Delivery Rate 01/04 2055 Room Air 01/04 2010 98.6 77 16 162/70 98 Room Air 01/04 1909 98.0 77 16 184/77 99 Room Air Allergies Coded Allergies: Sulfa (Sulfonamide Antibiotics) (Intermediate, SKIN TURNS PURPLE/HOT 10/28/17) Penicillins (Mild, ITCHING 10/28/17) aspirin (HX GASTRITIS 10/28/17) ASA->BLEEDING atorvastatin (PER PT MED LIST 10/28/17) prednisone (Severe, VISION CHANGES 10/28/17) Uncoded Allergies: ENVIRONMENTAL (UNKNOWN 07/20/13) MULTIPLE ANTIBIOTICS (UNKNOWN 07/20/13) Reconcile Medications Albuterol Sulfate (Proair Hfa) 90 MCG HFA.AER.AD 2 PUF INH PRN ASTHMA/ ALLERGIES (Reported) Ascorbate Calcium (Vitamin C) 500 MG TABLET 1 TAB PO DAILY SUPPLEMENT ( Reported) Azelastine/Fluticasone (Dymista Nasal [place]) 137 MCG-50 MCG/SPRAY SPRAY.PUMP 1 SPRAY NASB PRN ALLERGIES (Reported) Budesonide/Formoterol Fumarate (Symbicort 160-4.5 Mcg Inhaler) 160 MCG-4.5 MCG/ ACTUATION HFA.AER.AD 2 PUFF INH BID ASTHMA/ALLERGIES (Reported) Cetirizine HCl (Zyrtec) 10 MG CAPSULE 1 CAP PO DAILY ALLERGIES (Reported) Cholecalciferol (Vitamin D3) (Vitamin D) 10,000 UNIT CAPSULE 1 CAP PO DAILY SUPPLEMENT (Reported) Cyclobenzaprine HCl 5 MG TABLET 1 TAB PO QPMP PRN MUSCLE SPASMS (Reported) Diltiazem HCl (Cartia Xt) 300 MG CAP.ER.24H 1 CAP PO DAILY HEART (Reported) Ferrous Sulfate 325 MG (65 MG IRON) TABLET 1 TAB PO DAILY IRON, VITAMIN ( Reported) Gabapentin 300 MG CAPSULE 300 MG PO Q8 PRN PAIN . Glimepiride 2 MG TABLET 1.5 TAB PO DAILY DM (Reported) Hydrocodone/Acetaminophen (Hydrocodon-Acetaminophen 5-325) 5 MG-325 MG TABLET 2 TAB PO Q4H PRN PAIN (Reported) Lactobacillus Acidophilus (Acidophilus) 1 EACH CAPSULE 1 CAP PO BID PROBIOTIC (Reported) Losartan/Hydrochlorothiazide (Losartan-Hctz 100-25 MG Tab) 100 MG-25 MG TABLET 1 TAB PO DAILY HTN (Reported) Melatonin 3 MG TABLET 3 TAB PO QPM SLEEP (Reported) Montelukast Sodium (Singulair) 10 MG TABLET 1 TAB PO DAILY ALLERGIES ( Reported) Multiple Vitamin (Multivitamins) 1 EACH TABLET 1 TAB PO DAILY SUPPLEMENT ( Reported) Multivit-Min/FA/Lutein/Zeaxant (Macular Vitamin Tablet) 500 MCG-5 MG-1 MG TABLET 1 TAB PO DAILY SUPPLEMENT (Reported) Omeprazole 40 MG CAPSULE. 1 CAP PO DAILY AC GERD (Reported) Ondansetron HCl (Zofran) 4 MG TABLET 1 TAB PO TID PRN NAUSEA/VOMITING ( Reported) Rosuvastatin Calcium (Crestor) 20 MG TABLET 1 TAB PO DAILY CHOLESTEROL ( Reported) Sitagliptin Phosphate (Januvia) 100 MG TABLET 1 TAB PO DAILY DM (Reported) Vancomycin/0.9 % Sod Chloride (Vanco 1.25 Gm/250 Ml-0.9% NaCl) 1.25 GRAM/250 ML PLAST..BAG 1.75 GM IV DAILY INFECTION CONTINUE UNTIL 02/05 Warfarin Sodium 5 MG TABLET 1 TAB PO AD BLOOD THINNER (Reported) Warfarin Sodium 7.5 MG TABLET 1 TAB PO AD BLOOD THINNER (Reported) Triage Note: ARRIVED TO ED FROM MRI. PT S/P BACK SURGERY WITH WOUND HEALING ISSUES. WENT TO MRI TODAY AND WAS TOLD TO COME TO ED BY DR NAJERA FOR SURGERY IN THE AM. PT ARRIVED VIA WHEELCHAIR. ASSISTED TO BED. COMPLAINING OF 10 OUT OF 10 BACK PAIN. STATES SHE IS OVER DUE FOR TWO VICODIN TABLETS FOR PAIN. DRESSING IN PLACE TO LOWER BACK Triage Nurses Notes Reviewed? yes Onset: Abrupt Duration: week(s): (1), constant, continues in ED, getting worse Timing: recent history Injury Environment: home Severity: moderate, severe Severity Numbers: 7 No Modifying Factors: none Associated Symptoms: back pain LMP (ages 10-50): unknown : No Patient currently breastfeeds: No HPI: 72 -year-old female history of hypertension and lipidemia diabetes chronic back pain presents for reevaluation of a infected lumbar spine surgical site. Patient was recently discharged from the hospital after having a washout of her lumbar spine surgical incision. She had hardware removed. Patient is currently on IV vancomycin. She has had continued pain in her back along with drainage. She followed up with Ray Najera MD who did the surgery who sent her back to the hospital for readmission for another surgery. Patient denies any fevers numbness tingling bowel or bladder dysfunction. The pain she has today is the same type pain she's been dealing with. She has no chest pain or shortness of breath. (Dave Trejo) Past History Travel History Traveled to [place] past 21 day No Medical History Any Pertinent Medical History? 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 No (Dave Trejo) Review of Systems Review of Systems Constitutional: Reports: no symptoms. EENTM: Reports: no symptoms. Respiratory: Reports: no symptoms. Cardiovascular: Reports: no symptoms. GI: Reports: no symptoms. Genitourinary: Reports: no symptoms. Musculoskeletal: Reports: see HPI, back pain, muscle pain, muscle stiffness. Skin: Reports: no symptoms. Neurological/Psychological: Reports: no symptoms. Hematologic/Endocrine: Reports: no symptoms. Immunologic/Allergic: Reports: no symptoms. All Other Systems: Reviewed and Negative (Dave Trejo) Physical Exam Physical Exam General Appearance: well developed/nourished, no apparent distress, alert, awake Head: atraumatic, normal appearance Eyes: Bilateral: normal appearance, PERRL, EOMI. Ears, Nose, Throat: normal pharynx, normal ENT inspection, hearing grossly normal Neck: normal inspection, supple, full range of motion Respiratory: normal breath sounds, chest non-tender, no respiratory distress, lungs clear Cardiovascular: regular rate/rhythm, normal peripheral pulses Peripheral Pulses: 2+ radial (R), 2+ radial (L) Gastrointestinal: soft, non-tender Back: decreased range of motion, large midline incision over the lumbar vertebrae extending down towards the sacrum and coccyx. Small amount of erythema surrounding the incision there is some purulent discharge and wound DEHISCENSE. Extremities: normal inspection, normal range of motion, no edema Neurologic/Psych: no motor/sensory deficits, awake, alert, oriented x 3 Skin: intact, normal color, warm/dry Core Measures ACS in differential dx? No CVA/TIA Diagnosis: No Sepsis Present: No Sepsis Focused Exam Completed? No (Jeremy CRAWLEY,Dave) Progress Differential Diagnoses I considered the following diagnoses in my evaluation of the patient: [Dehisced wound, surgical site infection, osteomyelitis, epidural abscess, cellulitis] Plan of Care: Orders Procedure Date/time Status Nothing by Mouth 01/05 B Active PARTIAL THROMBOPLASTIN TIME 01/05 06 Active PROTHROMBIN TIME 01/05 06 Active WESTERGREN SED RATE 01/05 06 Active CBC WITHOUT DIFFERENTIAL 01/05 06 Active BASIC ELECTROLYTES PLUS BUN&CR 01/05 06 Active Consistent Carbohydrate 3 01/04 D Complete Wound Care/Dressing 01/05 2216 Active LACTIC ACID 01/04 2205 Active Weight 01/04 2115 Active Vital Signs 01/04 2115 Active Teach/Educate 01/04 2115 Active Pain Treatment and Response 01/04 2115 Active Nutritional Intake, Monitor 01/04 2115 Active Isolation 01/04 2115 Active Intake & Output 01/04 2115 Active Patient Care Conference 01/04 2115 Active Activity/Ambulation 01/04 2115 Active TRC EVALUATION (GEN) 01/04 1957 Active Pathway - chart 01/04 1957 Active Patient Data 01/04 1942 Active Code Status 01/[address] LUMB SPINE W IV CONTRAST 01/04 1941 Active Admit to inpatient 01/04 193 Active URINALYSIS 01/05 1924 Active PARTIAL THROMBOPLASTIN TIME 01/05 1916 Complete PROTHROMBIN TIME 01/05 1916 Complete BLOOD CULTURE 01/04 1915 Active TYPE & SCREEN (NOT X-MATCH) 01/04 1915 Complete TROPONIN LEVEL 01/04 1905 Complete LACTIC ACID 01/04 1905 Complete COMPREHENSIVE METABOLIC PANEL 01/04 1905 Complete CBC WITHOUT DIFFERENTIAL 01/04 1905 Complete EKG 01/04 1905 Active VTE Mechanical Prophylaxis 01/04 UNK Active Vital Signs 01/04 UNK Active Intake & Output 01/04 UNK Complete FingerStick- Glucose 01/04 UNK Active Activity/Ambulation 01/04 UNK Active Current Medications Sig/Clementine Start time Last Medication Dose Stop Time Status Admin Diltiazem HCl 300 MG DAILY 01/05 900 AC (Cardizem CD) Loratadine 10 MG DAILY 01/05 900 AC (Claritin) Losartan Potassium 100 MG DAILY 01/05 900 AC (Cozaar) Montelukast Sodium 10 MG DAILY 01/05 900 AC (Singulair) Vancomycin HCl 1,750 MG DAILY 01/05 900 AC Sodium Chloride 250 ML (Normal Saline 0.9%) Omeprazole 40 MG DAILY AC 01/05 700 AC (Prilosec) Dextrose/Sodium 1,000 ML Q10H 01/05 AC Chloride (D5-Normal Saline) Insulin Human Regular 0 Q6 01/04 2359 AC (NovoLIN R) Budesonide/ 2 PUF BID 01/04 2100 AC Formoterol Fumarate (Symbicort) Docusate Sodium 100 MG BID 01/04 2100 AC (Colace) Melatonin 9 MG QPM 01/04 2100 AC (Melatonin) Albuterol Sulfate 2 PUF Q6P PRN 01/05 2000 AC (Ventolin) Gabapentin 300 MG Q8P PRN 01/05 2000 AC (Neurontin) Hydrocodone Bitart/ 2 TAB Q4P PRN 01/05 2000 AC Acetaminophen (Vicodin) Morphine Sulfate 2 MG Q4P PRN 01/05 2000 AC (MORPHINE SULFATE) Ondansetron HCl 4 MG Q6-PRN PRN 01/05 2000 AC (Zofran) Laboratory Tests 01/04/181939: Anion Gap 10, Estimated GFR > 60, BUN/Creatinine Ratio 27.1 H, Glucose 131 H, Lactic Acid 0.6 L, Calcium 9.7, Total Bilirubin 0.2, AST 20, ALT 26, Alkaline Phosphatase 93, Troponin I < 0.01, Total Protein 6.5, Albumin 3.5, Globulin 3.0, Albumin/Globulin Ratio 1.2, PT 18.8 H, INR 1.72 H, APTT 32, CBC w Diff NO MAN DIFF REQ, RBC 3.12 L, MCV 82.2, MCH 27.2, MCHC 33.1, RDW 15.0 H, MPV 7.0 L, Gran % 74.1, Lymphocytes % 13.1 L, Monocytes % 9.7 H, Eosinophils % 2.8, Basophils % 0.3, Absolute Granulocytes 9.1 H, Absolute Lymphocytes 1.6, Absolute Monocytes 1.2 H, Absolute Eosinophils 0.3, Absolute Basophils 0 Microbiology 01/05 1940 BLOOD: Blood Culture - RECD 01/04 1905 BLOOD: Blood Culture - CAN Cancelled: Cancelled via OE: Per MD Decision 01/04 1905 BLOOD: Blood Culture - CAN Cancelled: Cancelled via OE: Per MD Decision Patient is here for admission to Dr. Najera'S service for another washout. Preoperative labs ordered cultures ordered. Also a CT scan of the lumbar spine. Patient is medicated with Vicodin. Patient be admitted to surgical service. Case discussed with Dr. GALVAN he agrees Initial ED EKG: normal sinus rhythm, no ST T wave changes (Dave Trejo) Departure Departure Disposition: STILL A PATIENT Condition: Stable Clinical Impression Primary Impression: Surgical site infection Qualifiers: Encounter type: subsequent encounter Qualified Code: T81.4XXD - Infection following a procedure, subsequent encounter Referrals: Radha HARRIS,Flavio Chaudhry (PCP/Family) Departure Forms: Customer Survey General Discharge Information Admission Note Spoke With: Dania HARRIS,Ray Rose Documentation of Exam: Documentation of any treatments & extenuating circumstances including Concerns Regarding Discharge (functional status, medication knowledge or non-compliance, living conditions, etc.) that warrant an admission rather than observation: [IV antibiotics, wound care consult, serial labs, monitoring of vital signs, operating room for washout] (Dave Trejo) PA/ELECTRONIC WARFARE TECHNICIAN Co-Sign Statement Statement: ED Attending supervision documentation- x I saw and evaluated the patient. I have also reviewed all the pertinent lab results and diagnostic results. I agree with the findings and the plan of care as documented in the PA's/ELECTRONIC WARFARE TECHNICIAN's documentation. Lumbar surgical wound dehiscence for ortho intervention [] I have reviewed the ED Record and agree with the PA's/ELECTRONIC WARFARE TECHNICIAN's documentation. [] Additions or exceptions (if any) to the PAs/ELECTRONIC WARFARE TECHNICIAN's note and plan are summarized below: [] (Moses Galvan MD) Critical Care Note Critical Care Note Critical Care Time: non-applicable (Jeremy CRAWLEY,Dave)
--- NOTE | 2018-01-04 19:42 | Admission Core Measures ---
Acute Coronary Syndrome (CM) ACS Core Measures Acute Coronary Syndrome Diagnosis No Congestive Heart Failure (NEW) CHF Core Measures Congestive Heart Failure Diagnosis No Cerebrovascular Accident CVA Core Measures CVA/TIA Diagnosis No Venous Thromboembolism VTE Core Barbara (View Protocol) VTE Risk Factors VTE (Previous) No Mechanical VTE Prophylaxis d/t N/A MechProphylax Ordered No VTE Pharm Prophylaxis d/t Surgical Contraindication (per dr garcia) Problem List As ranked by this Provider includes Assessment & Plan 1. Wound infection HOME MEDS Home Med List Albuterol Sulfate (Proair Hfa) 90 MCG HFA.AER.AD 2 PUF INH PRN ASTHMA/ ALLERGIES (Reported) Ascorbate Calcium (Vitamin C) 500 MG TABLET 1 TAB PO DAILY SUPPLEMENT ( Reported) Azelastine/Fluticasone (Dymista Nasal [place]) 137 MCG-50 MCG/SPRAY SPRAY.PUMP 1 SPRAY NASB PRN ALLERGIES (Reported) Budesonide/Formoterol Fumarate (Symbicort 160-4.5 Mcg Inhaler) 160 MCG-4.5 MCG/ ACTUATION HFA.AER.AD 2 PUFF INH BID ASTHMA/ALLERGIES (Reported) Cetirizine HCl (Zyrtec) 10 MG CAPSULE 1 CAP PO DAILY ALLERGIES (Reported) Cholecalciferol (Vitamin D3) (Vitamin D) 10,000 UNIT CAPSULE 1 CAP PO DAILY SUPPLEMENT (Reported) Cyclobenzaprine HCl 5 MG TABLET 1 TAB PO QPMP PRN MUSCLE SPASMS (Reported) Diltiazem HCl (Cartia Xt) 300 MG CAP.ER.24H 1 CAP PO DAILY HEART (Reported) Ferrous Sulfate 325 MG (65 MG IRON) TABLET 1 TAB PO DAILY IRON, VITAMIN ( Reported) Gabapentin 300 MG CAPSULE 300 MG PO Q8 PRN PAIN Glimepiride 2 MG TABLET 1.5 TAB PO DAILY DM (Reported) Hydrocodone/Acetaminophen (Hydrocodon-Acetaminophen 5-325) 5 MG-325 MG TABLET 2 TAB PO Q4H PRN PAIN (Reported) Lactobacillus Acidophilus (Acidophilus) 1 EACH CAPSULE 1 CAP PO BID PROBIOTIC (Reported) Losartan/Hydrochlorothiazide (Losartan-Hctz 100-25 MG Tab) 100 MG-25 MG TABLET 1 TAB PO DAILY HTN (Reported) Melatonin 3 MG TABLET 3 TAB PO QPM SLEEP (Reported) Montelukast Sodium (Singulair) 10 MG TABLET 1 TAB PO DAILY ALLERGIES ( Reported) Multiple Vitamin (Multivitamins) 1 EACH TABLET 1 TAB PO DAILY SUPPLEMENT ( Reported) Multivit-Min/FA/Lutein/Zeaxant (Macular Vitamin Tablet) 500 MCG-5 MG-1 MG TABLET 1 TAB PO DAILY SUPPLEMENT (Reported) Omeprazole 40 MG CAPSULE.DR 1 CAP PO DAILY AC GERD (Reported) Ondansetron HCl (Zofran) 4 MG TABLET 1 TAB PO TID PRN NAUSEA/VOMITING ( Reported) Rosuvastatin Calcium (Crestor) 20 MG TABLET 1 TAB PO DAILY CHOLESTEROL ( Reported) Sitagliptin Phosphate (Januvia) 100 MG TABLET 1 TAB PO DAILY DM (Reported) Vancomycin/0.9 % Sod Chloride (Vanco 1.25 Gm/250 Ml-0.9% NaCl) 1.25 GRAM/250 ML PLAST..BAG 1.75 GM IV DAILY INFECTION Warfarin Sodium 5 MG TABLET 1 TAB PO AD BLOOD THINNER (Reported) Warfarin Sodium 7.5 MG TABLET 1 TAB PO AD BLOOD THINNER (Reported)
[2018-01-04 19:57] LABS: ABSOLUTE BASOPHIL COUNT 0 /CUMM (0.0-0.2); ABSOLUTE EOSINOPHIL COUNT 0.3 /CUMM (0.0-0.7); ABSOLUTE GRANULOCYTE CT 9.1 /CUMM (1.4-6.5); ABSOLUTE LYMPH COUNT 1.6 /CUMM (1.2-3.4); ABSOLUTE MONOCYTE COUNT 1.2 /CUMM (0.10-0.60); BASOPHIL % 0.3 % (0.0-2.0); EOSINOPHIL % 2.8 % (0-5); GRANULOCYTE % 74.1 % (42.2-75.2); HEMATOCRIT 25.6 % (37-47); MEAN CORPUSCULAR HGB 27.2 PG (27.0-31.0); MEAN CORPUSCULAR HGB CONC 33.1 G/DL (33.0-37.0); MEAN CORPUSCULAR VOLUME 82.2 FL (81.0-99.0); PLATELET COUNT 565 /CUMM (130-400); RED BLOOD CELL CT 3.12 /CUMM (4.20-5.40); WHITE BLOOD CELL COUNT 12.3 /CUMM (4.8-10.8)
[2018-01-04 20:12] LABS: PT 18.8 SEC (9.4-12.5); PTT 32 SEC (25-37)
--- NOTE | 2018-01-04 22:11 | History & Physical Pre-Op ---
General Information and HPI History of Present Illness: 72yoF sent to ED by Dr. Najera for persistent wound infection. Pt well known to Dr. Najera, as she is POD10 sp I&D of lumbar wound with hardware removal, and sp multiple recent I&Ds of this wound infection. Pt was DC'ed from hospital on 12/31, seen in ED on 01/01 for wound drainage and pain. Superficial cx taken in ED at that time grew out VRE. Pt well known by Dr. Simon as well, and has been on Iv Vanco as outpt via picc line. Allergies/Medications Allergies: Coded Allergies: Sulfa (Sulfonamide Antibiotics) (Intermediate, SKIN TURNS PURPLE/HOT 10/28/17) Penicillins (Mild, ITCHING 10/28/17) aspirin (HX GASTRITIS 10/28/17) ASA->BLEEDING atorvastatin (PER PT MED LIST 10/28/17) prednisone (Severe, VISION CHANGES 10/28/17) Uncoded Allergies: ENVIRONMENTAL (UNKNOWN 07/20/13) MULTIPLE ANTIBIOTICS (UNKNOWN 07/20/13) Home Med list Albuterol Sulfate (Proair Hfa) 90 MCG HFA.AER.AD 2 PUF INH PRN ASTHMA/ ALLERGIES (Reported) Ascorbate Calcium (Vitamin C) 500 MG TABLET 1 TAB PO DAILY SUPPLEMENT ( Reported) Azelastine/Fluticasone (Dymista Nasal [place]) 137 MCG-50 MCG/SPRAY SPRAY.PUMP 1 SPRAY NASB PRN ALLERGIES (Reported) Budesonide/Formoterol Fumarate (Symbicort 160-4.5 Mcg Inhaler) 160 MCG-4.5 MCG/ ACTUATION HFA.AER.AD 2 PUFF INH BID ASTHMA/ALLERGIES (Reported) Cetirizine HCl (Zyrtec) 10 MG CAPSULE 1 CAP PO DAILY ALLERGIES (Reported) Cholecalciferol (Vitamin D3) (Vitamin D) 10,000 UNIT CAPSULE 1 CAP PO DAILY SUPPLEMENT (Reported) Cyclobenzaprine HCl 5 MG TABLET 1 TAB PO QPMP PRN MUSCLE SPASMS (Reported) Diltiazem HCl (Cartia Xt) 300 MG CAP.ER.24H 1 CAP PO DAILY HEART (Reported) Ferrous Sulfate 325 MG (65 MG IRON) TABLET 1 TAB PO DAILY IRON, VITAMIN ( Reported) Gabapentin 300 MG CAPSULE 300 MG PO Q8 PRN PAIN . Glimepiride 2 MG TABLET 1.5 TAB PO DAILY DM (Reported) Hydrocodone/Acetaminophen (Hydrocodon-Acetaminophen 5-325) 5 MG-325 MG TABLET 2 TAB PO Q4H PRN PAIN (Reported) Lactobacillus Acidophilus (Acidophilus) 1 EACH CAPSULE 1 CAP PO BID PROBIOTIC (Reported) Losartan/Hydrochlorothiazide (Losartan-Hctz 100-25 MG Tab) 100 MG-25 MG TABLET 1 TAB PO DAILY HTN (Reported) Melatonin 3 MG TABLET 3 TAB PO QPM SLEEP (Reported) Montelukast Sodium (Singulair) 10 MG TABLET 1 TAB PO DAILY ALLERGIES ( Reported) Multiple Vitamin (Multivitamins) 1 EACH TABLET 1 TAB PO DAILY SUPPLEMENT ( Reported) Multivit-Min/FA/Lutein/Zeaxant (Macular Vitamin Tablet) 500 MCG-5 MG-1 MG TABLET 1 TAB PO DAILY SUPPLEMENT (Reported) Omeprazole 40 MG CAPSULE.DR 1 CAP PO DAILY AC GERD (Reported) Ondansetron HCl (Zofran) 4 MG TABLET 1 TAB PO TID PRN NAUSEA/VOMITING ( Reported) Rosuvastatin Calcium (Crestor) 20 MG TABLET 1 TAB PO DAILY CHOLESTEROL ( Reported) Sitagliptin Phosphate (Januvia) 100 MG TABLET 1 TAB PO DAILY DM (Reported) Vancomycin/0.9 % Sod Chloride (Vanco 1.25 Gm/250 Ml-0.9% NaCl) 1.25 GRAM/250 ML PLAST..BAG 1.75 GM IV DAILY INFECTION CONTINUE UNTIL 02/05 Warfarin Sodium 5 MG TABLET 1 TAB PO AD BLOOD THINNER (Reported) Warfarin Sodium 7.5 MG TABLET 1 TAB PO AD BLOOD THINNER (Reported) Past History Medical History Neurological: TIA EENT: allergies Cardiovascular: hypertension, hyperlipidemia, CAROTID ARTERY STENOSIS BRADYCARDIA Respiratory: asthma, bronchitis, COPD, MRSA PNA Gastrointestinal: GERD Musculoskeletal: osteoarthritis, spinal stenosis, chronic back pain Endocrine: diabetes, NIDDM 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 Smoking Status: Never Smoked Exam & Diagnostic Data Last 24 Hrs of Vital Signs/I&O Vital Signs Date Time Temp Pulse Resp B/P B/P Pulse O2 O2 Flow FiO2 Mean Ox Delivery Rate 01/04 2055 Room Air 01/04 2010 98.6 77 16 162/70 98 Room Air 01/04 1909 98.0 77 16 184/77 99 Room Air Physical Exam: gen- nad card-s1s2 pulm- no audible wheeze back- dressed, not assessed as pt on commode ext- nt Last 24 Hrs of Labs/Chucky: Laboratory Tests 01/04/181939: Anion Gap 10, Estimated GFR > 60, BUN/Creatinine Ratio 27.1 H, Glucose 131 H, Lactic Acid 0.6 L, Calcium 9.7, Total Bilirubin 0.2, AST 20, ALT 26, Alkaline Phosphatase 93, Troponin I < 0.01, Total Protein 6.5, Albumin 3.5, Globulin 3.0, Albumin/Globulin Ratio 1.2, PT 18.8 H, INR 1.72 H, APTT 32, CBC w Diff NO MAN DIFF REQ, RBC 3.12 L, MCV 82.2, MCH 27.2, MCHC 33.1, RDW 15.0 H, MPV 7.0 L, Gran % 74.1, Lymphocytes % 13.1 L, Monocytes % 9.7 H, Eosinophils % 2.8, Basophils % 0.3, Absolute Granulocytes 9.1 H, Absolute Lymphocytes 1.6, Absolute Monocytes 1.2 H, Absolute Eosinophils 0.3, Absolute Basophils 0 Microbiology 01/05 1940 BLOOD: Blood Culture - RECD 01/04 1905 BLOOD: Blood Culture - CAN Cancelled: Cancelled via OE: Per MD Decision 01/04 1905 BLOOD: Blood Culture - CAN Cancelled: Cancelled via OE: Per MD Decision Diagnostic Data Other Results Lumbar MRI: pending Lumbar CT: pending Assessment/Plan Assessment/Plan: A- 72yoF with persistent lumbar wound infection, POD10 sp wound I&D with hardware removal, on IV Vanco via picc line, with leukocytosis and back pain, with lumbar imaging pending. P- NPO after mn. hold coumadin (hx ue dvt) alps only. hepsq possibly postop, tbd by attending cont picc line (poor venous access) cont vanc am labs fu CT, MRI results Per Dr. Najera, will continue vanco at current dose and no cultures to be taken at this time, as pt going to OR tomorrow for further washout/I&D. Dr. Najera to see in am. Please refer to his addendum. As Ranked By This Provider Problem List: 1. Surgical wound infection 2. DVT (deep venous thrombosis) 3. Chronic pain 4. Diabetes mellitus 5. History of asthma 6. Hypertension
[2018-01-04 22:41] VITALS: BP 162/72
[2018-01-05 07:13] VITALS: BP 140/64
[2018-01-05 08:34] LABS: ABSOLUTE BASOPHIL COUNT 0 /CUMM (0.0-0.2); ABSOLUTE EOSINOPHIL COUNT 0.4 /CUMM (0.0-0.7); ABSOLUTE GRANULOCYTE CT 6.7 /CUMM (1.4-6.5); ABSOLUTE LYMPH COUNT 1.9 /CUMM (1.2-3.4); ABSOLUTE MONOCYTE COUNT 0.9 /CUMM (0.10-0.60); BASOPHIL % 0.5 % (0.0-2.0); EOSINOPHIL % 3.5 % (0-5); GRANULOCYTE % 67.7 % (42.2-75.2); HEMATOCRIT 23.4 % (37-47); MEAN CORPUSCULAR HGB 27.7 PG (27.0-31.0); MEAN CORPUSCULAR HGB CONC 33.6 G/DL (33.0-37.0); MEAN CORPUSCULAR VOLUME 82.3 FL (81.0-99.0); MEAN PLATELET VOLUME 7.5 FL (7.4-10.4); PLATELET COUNT 507 /CUMM (130-400); RBC DISTRIBUTION WIDTH 15.2 % (11.5-14.5); RED BLOOD CELL CT 2.84 /CUMM (4.20-5.40); WHITE BLOOD CELL COUNT 9.9 /CUMM (4.8-10.8)
[2018-01-05 08:52] LABS: PT 18.9 SEC (9.4-12.5); PTT 29 SEC (25-37)
--- NOTE | 2018-01-05 09:15 | CT SCAN REPORT ---
EXAMINATION: CT LUMBAR SPINE WITH CONTRAST CLINICAL INFORMATION: Spine surgery now with back pain and elevated white blood cell count. COMPARISON: Lumbar spine MRI 01/04/2018. Lumbar spine radiographs 12/25/2017. TECHNIQUE: Foreign Legal Consultant images were obtained. A CT acquisition of the lumbar spine was performed after the intravenous administration of contrast. A total of 95 mL Optiray 320 was utilized for this examination. No adverse contrast reaction was reported. DLP: 1167.46 mGy-cm FINDINGS: Post surgical changes of a decompressive laminectomy extending from L2 to L5 is redemonstrated. The transpedicular hardware construct has been removed and there are residual screw tracts extending from L2 to S1. The L3-S1 vertebral segments appear chronically fused. Metallic intervertebral hardware at L2-L3 and L5-S1 is noted. Possible nonunion at L2-L3. A compression fracture of the L2 vertebral body is redemonstrated with impaction of the upper endplate resulting in 30% vertebral body height loss anteriorly and there is buckling with subtle retropulsion of the posterior cortex similar to findings associated on prior imaging. There is slight grade 1 anterolisthesis of L3 on L4, L4-L5, and L5 on S1. The canal and foramina are better demonstrated on prior imaging. There is a peripherally enhancing fluid paraspinal collection containing air and fluid consistent with an abscess that is also better demonstrated on the recently obtained lumbar spine MRI from 01/04/2018. Limited visualization of the retroperitoneal structures demonstrates heavily calcified atheromatous plaque involving abdominal aorta and iliac vessels. Psoas muscles are symmetric. IMPRESSION: Again there are recent changes related to the removal of a transpedicular hardware construct with residual screw tracks visible within the L2-S1 vertebra. The L3-S1 vertebral segments appear chronically fused. Possible nonunion at L2-L3. There is an acute compression fracture of the L2 vertebral body with impaction of the upper endplate resulting in 30% vertebral body height loss anteriorly and buckling with retropulsion of the posterior cortex causing minimal indentation of the ventral thecal sac. The canal and foramina are better illustrated on the dedicated lumbar spine MRI from 01/04/2018. The known peripherally enhancing paraspinal fluid collection consistent with an abscess is also better demonstrated on prior imaging.
[2018-01-05 14:21] VITALS: BP 135/82
[2018-01-05 21:26] VITALS: BP 132/68
--- NOTE | 2018-01-05 22:48 | Cons- Medical ---
Idris Miller 01/05/18 2248: General Information and HPI Consulting Request Date of Consult: 01/05/18 Requested By: Dania HARRIS,Ray Rose Reason for Consult: Medical co management Source of Information: patient, old records Exam Limitations: no limitations History of Present Illness: 72-year-old woman with past medical history of TIA on Plavix, hyperlipidemia, hypertension, asthma, bronchitis, COPD, MRSA, GERD, OA, chronic back pain status post spinal fusion, [id number] diabetes mellitus, and upper extremity DVT on Coumadin status post decompressive lumbar laminectomy L2-S1 11 with insertion of a cage and pedicle screws and removal of the old screws from a previous spinal fusion 4 years earlier, with postop course complicated by anemia, requiring 6 units of blood and a right upper extremity DVT secondary to a prior PICC, for which she has remained on Coumadin, readmitted 2 months ago with a surgical site infection secondary to Klebsiella, status post I&D with retention of the hardware, and discharged on Ciprofloxacin, readmitted 3 1/2 weeks prior to admission with persistent drainage from her incision, status post I&D with retention of the hardware, with the OR cultures positive for MRSA, discharged on Vancomycin alone, having completed a 6 week course of Ciprofloxacin, recent admission to [place] on December 25 2017 for persistent drainage from her incision discharged on IV vancomycin with PICC line, sent to ED by Dr. valentin on January 04 for persistent wound infection. Medicine was consulted for comanagement of her comorbidities. On interview patient complained of back pain however she was satisfied with the current pain regimen she is on. She denies fever, chills, shortness of breath, chest pain, palpitations. Allergies/Medications Allergies: Coded Allergies: Sulfa (Sulfonamide Antibiotics) (Intermediate, SKIN TURNS PURPLE/HOT 10/28/17) Penicillins (Mild, ITCHING 10/28/17) aspirin (HX GASTRITIS 10/28/17) ASA->BLEEDING atorvastatin (PER PT MED LIST 10/28/17) prednisone (Severe, VISION CHANGES 10/28/17) Uncoded Allergies: ENVIRONMENTAL (UNKNOWN 07/20/13) MULTIPLE ANTIBIOTICS (UNKNOWN 07/20/13) Home Med List: Albuterol Sulfate (Proair Hfa) 90 MCG HFA.AER.AD 2 PUF INH PRN ASTHMA/ ALLERGIES (Reported) Ascorbate Calcium (Vitamin C) 500 MG TABLET 1 TAB PO DAILY SUPPLEMENT ( Reported) Azelastine/Fluticasone (Dymista Nasal [place]) 137 MCG-50 MCG/SPRAY SPRAY.PUMP 1 SPRAY NASB PRN ALLERGIES (Reported) Budesonide/Formoterol Fumarate (Symbicort 160-4.5 Mcg Inhaler) 160 MCG-4.5 MCG/ ACTUATION HFA.AER.AD 2 PUFF INH BID ASTHMA/ALLERGIES (Reported) Cetirizine HCl (Zyrtec) 10 MG CAPSULE 1 CAP PO DAILY ALLERGIES (Reported) Cholecalciferol (Vitamin D3) (Vitamin D) 10,000 UNIT CAPSULE 1 CAP PO DAILY SUPPLEMENT (Reported) Cyclobenzaprine HCl 5 MG TABLET 1 TAB PO QPMP PRN MUSCLE SPASMS (Reported) Diltiazem HCl (Cartia Xt) 300 MG CAP.ER.24H 1 CAP PO DAILY HEART (Reported) Ferrous Sulfate 325 MG (65 MG IRON) TABLET 1 TAB PO DAILY IRON, VITAMIN ( Reported) Gabapentin 300 MG CAPSULE 300 MG PO Q8 PRN PAIN . Glimepiride 2 MG TABLET 1.5 TAB PO DAILY DM (Reported) Hydrocodone/Acetaminophen (Hydrocodon-Acetaminophen 5-325) 5 MG-325 MG TABLET 2 TAB PO Q4H PRN PAIN (Reported) Lactobacillus Acidophilus (Acidophilus) 1 EACH CAPSULE 1 CAP PO BID PROBIOTIC (Reported) Losartan/Hydrochlorothiazide (Losartan-Hctz 100-25 MG Tab) 100 MG-25 MG TABLET 1 TAB PO DAILY HTN (Reported) Melatonin 3 MG TABLET 3 TAB PO QPM SLEEP (Reported) Montelukast Sodium (Singulair) 10 MG TABLET 1 TAB PO DAILY ALLERGIES ( Reported) Multiple Vitamin (Multivitamins) 1 EACH TABLET 1 TAB PO DAILY SUPPLEMENT ( Reported) Multivit-Min/FA/Lutein/Zeaxant (Macular Vitamin Tablet) 500 MCG-5 MG-1 MG TABLET 1 TAB PO DAILY SUPPLEMENT (Reported) Omeprazole 40 MG CAPSULE.DR 1 CAP PO DAILY AC GERD (Reported) Ondansetron HCl (Zofran) 4 MG TABLET 1 TAB PO TID PRN NAUSEA/VOMITING ( Reported) Rosuvastatin Calcium (Crestor) 20 MG TABLET 1 TAB PO DAILY CHOLESTEROL ( Reported) Sitagliptin Phosphate (Januvia) 100 MG TABLET 1 TAB PO DAILY DM (Reported) Vancomycin/0.9 % Sod Chloride (Vanco 1.25 Gm/250 Ml-0.9% NaCl) 1.25 GRAM/250 ML PLAST..BAG 1.75 GM IV DAILY INFECTION CONTINUE UNTIL 02/05 Warfarin Sodium 5 MG TABLET 1 TAB PO AD BLOOD THINNER (Reported) Warfarin Sodium 7.5 MG TABLET 1 TAB PO AD BLOOD THINNER (Reported) Current Medications: Current Medications Sig/Clementine Start time Last Medication Dose Route Stop Time Status Admin Acetaminophen 1,000 MG .STK-MED ONE 01/05 1536 DC IV 01/05 1537 Albuterol Sulfate 3 ML BID 01/05 2100 AC 01/05 INH 2045 Albuterol Sulfate 2 PUF Q6P PRN 01/05 2000 AC 01/05 INH 2350 Benzonatate 100 MG TID 01/06 0200 AC 01/06 PO 0220 Budesonide/ 2 PUF BID 01/04 2100 AC 01/05 Formoterol Fumarate INH 204 Cyclobenzaprine HCl 5 MG Q12P PRN 01/05 0015 AC 01/05 PO 0017 Dexamethasone 4 MG .STK-MED ONE 01/05 1536 DC IM 01/05 1537 Dextrose/Sodium 1,000 ML Q10H 01/05 0000 AC 01/05 Chloride IV 2155 Diltiazem HCl 300 MG DAILY 01/05 0900 AC 01/05 PO 0837 Docusate Sodium 100 MG BID 01/04 2100 AC 01/05 PO 204 Fentanyl Citrate 250 MCG .STK-MED ONE 01/05 1535 DC IM 01/05 1536 Gabapentin 300 MG Q8P PRN 01/05 2000 AC 01/05 PO 2307 Hydrocodone Bitart/ 2 TAB Q4P PRN 01/05 2000 AC 01/06 Acetaminophen PO 0220 Hydromorphone HCl 2 MG .STK-MED ONE 01/05 1911 DC IM 01/05 191 Hydromorphone HCl 2 MG .STK-MED ONE 01/05 1534 DC IM 01/05 1535 Insulin Aspart 0 TIDAC 01/06 0800 AC SC Insulin Human Regular 2 UNITS .STK-MED ONE 01/05 1314 DC IV 01/05 1315 Insulin Human Regular 4 UNITS .STK-MED ONE 01/05 0819 DC IV 01/05 0820 Insulin Human Regular 0 Q6 01/04 2359 DC 01/05 SC 1323 Loratadine 10 MG DAILY 01/05 0900 AC 01/05 PO 0835 Losartan Potassium 100 MG DAILY 01/05 0900 AC 01/05 PO 0839 Melatonin 9 MG QPM 01/04 2100 AC 01/05 PO 204 Midazolam HCl 2 MG .STK-MED ONE 01/05 1535 DC IM 01/05 1536 Montelukast Sodium 10 MG DAILY 01/05 0900 AC 01/05 PO 0835 Morphine Sulfate 4 MG Q3P PRN 01/05 191 AC IV Morphine Sulfate 2 MG Q4P PRN 01/05 2000 AC IV Omeprazole 40 MG DAILY AC 01/05 07 AC 01/05 PO 0834 Ondansetron HCl 8 MG .STK-MED ONE 01/05 1536 DC IM 01/05 1537 Ondansetron HCl 4 MG Q6-PRN PRN 01/05 2000 AC IV Vancomycin HCl 1,750 MG 1500 01/05 1500 AC 01/05 Sodium Chloride 500 ML IV 1526 Vancomycin HCl 1,750 MG DAILY 01/05 09 DC Sodium Chloride 250 ML IV Vancomycin HCl 1,750 MG DAILY 01/05 09 DC Sodium Chloride 500 ML IV Review of Systems Review of Systems Constitutional: Reports: see HPI. 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 Home: Nursing Smoking Status: Never Smoked Exam & Diagnostic Data Last 24 Hrs of Vital Signs/I&O Vital Signs Date Time Temp Pulse Resp B/P B/P Pulse O2 O2 Flow FiO2 Mean Ox Delivery Rate 01/06 0000 Nasal 2.0L Cannula 01/05 2126 97.8 64 18 132/68 97 01/05 2045 97 Nasal 2.0L Cannula 01/05 1421 98.3 78 20 135/82 95 Room Air 01/05 1053 99 Room Air 01/05 1043 Room Air 01/05 0800 Room Air 01/05 0713 97.9 65 20 140/64 97 Room Air Intake & Output 01/06 0800 01/06 0000 01/05 1600 Intake Total 760 800 Output Total 450 750 Balance 310 50 Intake, IV 400 800 Intake, Oral 360 Output, Urine 450 750 Physical Exam General Appearance: alert, awake, comfortable Respiratory: normal breath sounds Cardiovascular: regular rate/rhythm Extremities: no edema Last 24 Hrs of Labs/Chucky: Laboratory Tests 01/05/18 1522: PT 16.0 H, INR 1.46 H 01/05/18 0700: Anion Gap 10, Estimated GFR > 60, BUN/Creatinine Ratio 24.3, PT 18.9 H, INR 1.72 H, APTT 29, CBC w Diff NO MAN DIFF REQ, RBC 2.84 L, MCV 82.3, MCH 27.7, MCHC 33.6, RDW 15.2 H, MPV 7.5, Gran % 67.7, Lymphocytes % 19.0 L, Monocytes % 9.3, Eosinophils % 3.5, Basophils % 0.5, Absolute Granulocytes 6.7 H, Absolute Lymphocytes 1.9, Absolute Monocytes 0.9 H, Absolute Eosinophils 0.4, Absolute Basophils 0, ESR Westergren 100 H Diagnostic Data CXR Results CT LUMB SPINE W IV CONTRAST IMPRESSION: Again there are recent changes related to the removal of a transpedicular hardware construct with residual screw tracks visible within the L2-S1 vertebra. The L3-S1 vertebral segments appear chronically fused. Possible nonunion at L2-L3. There is an acute compression fracture of the L2 vertebral body with impaction of the upper endplate resulting in 30% vertebral body height loss anteriorly and buckling with retropulsion of the posterior cortex causing minimal indentation of the ventral thecal sac. The canal and foramina are better illustrated on the dedicated lumbar spine MRI from 01/04/2018. The known peripherally enhancing paraspinal fluid collection consistent with an abscess is also better demonstrated on prior imaging. Assessment/Plan Assessment/Plan 72-year-old woman with past medical history of TIA on Plavix, hyperlipidemia, hypertension, asthma, bronchitis, COPD, MRSA, GERD, OA, chronic back pain status post spinal fusion, usi-ebamfaa-pgnquruyb diabetes mellitus, and upper extremity DVT on Coumadin status post decompressive lumbar laminectomy L2-S1 11 with insertion of a cage and pedicle screws and removal of the old screws from a previous spinal fusion 4 years earlier, with postop course complicated by anemia, requiring 6 units of blood and a right upper extremity DVT secondary to a prior PICC, for which she has remained on Coumadin, readmitted 2 months ago with a surgical site infection secondary to Klebsiella, status post I&D with retention of the hardware, and discharged on Ciprofloxacin, readmitted 3 1/2 weeks prior to admission with persistent drainage from her incision, status post I&D with retention of the hardware, with the OR cultures positive for MRSA, discharged on Vancomycin alone, having completed a 6 week course of Ciprofloxacin, recent admission to [facility] on December 25 2017 for persistent drainage from her incision discharged on IV vancomycin with PICC line, sent to ED by Dr. valentin on January 04 for persistent wound infection. Current admission for washout of wound. 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 Will also need a trough level Continue rest of patient's medications Consider restarting patient's Plavix if okay by orthopedics Continue current pain management regimen DVT prophylaxis subcu heparin, Coumadin held per orthopedics Full code Formal attending recommendations below Thank you for your consult will follow along with you Consult Acknowledgment - Thank you for your consult request. [facility] 01/06[facility]18 0228: Assessment/Plan Consult Acknowledgment - Thank you for your consult request. Attending MD Review Statement Attending Statement Attending MD Statement: examined this patient, discuss w/resident/PA/TANK TRUCK DRIVER, agreed w/resident/PA/TANK TRUCK DRIVER, reviewed EMR data (avail) Attending Assessment/Plan: 72F PMH COPD, asthma, NIDD, HTN, HLD, TIA on Plavix, provoked RUE DVT on Xarelto , GERD, PVD, carpal tunnel syndrome, bilateral lung nodules, occluded right ICA, and chronic back pain status post spinal fusion complicated by acute blood loss anemia with multiple infections s/p multiple I&D and debridements, with Enterococcal wound infection on outpatient Vancomycin by PICC, admitted today by surgical service for washout of wound, medicine consulted for medical co- management. Patient tolerated procedure well, pain is controlled, no complaints. Vitals are stable, afebrile, fingerstick 131. Labs unremarkable aside from ESR 100, up from 80 on prior. Exam benign. Recommendations - Continue home medications - Sliding scale insulin - If hyperglycemic would start Levemir - Check Vancomycin trough - Continue Vancomycin at outpatient dose - Inform ID of patient's admission - Per orthopedics, Coumadin to be held and to be given SQ heparin for DVT PPx
[2018-01-06 06:20] VITALS: BP 160/68
--- NOTE | 2018-01-06 08:08 | PN- Orthopedic ---
See Addendum Cassidy CRAWLEY,Preeti 01/06/18 0805: Subjective Subjective: feeling ok, pain controlled at rest, lots of incisional pain with movement- asking for meds now. +uo via day. no oob yet. nelida diet. no n/v/cp/sob/f now or overnight. Objective Vital Signs and I&Os Vital Signs Date Time Temp Pulse Resp B/P B/P Pulse O2 O2 Flow FiO2 Mean Ox Delivery Rate 01/06 0620 98.5 84 20 160/68 95 Nasal Cannula 01/06 0000 Nasal 2.0L Cannula 01/05 2126 97.8 64 18 132/68 97 01/05 2045 97 Nasal 2.0L Cannula 01/05 1421 98.3 78 20 135/82 95 Room Air 01/05 1053 99 Room Air 01/05 1043 Room Air Intake & Output 01/06 1600 01/06 0800 01/06 0000 01/05 1600 01/05 0800 01/05 0000 Intake Total 760 800 760 Output Total 650 450 750 Balance -650 310 50 760 Intake, IV 400 800 700 Intake, Oral 360 60 Output, Urine 650 450 750 Patient 174 lb 179 lb Weight Weight Standing Scale Measurement Method Physical Exam: gen- nad card-s1s2 rrr pulm- ctab abd-obese soft nt back- vac in place to good suction, infusion machine functioning. very ttp at incision. ext- calves soft nt, some edema bl le FS: 389 now, controlled preop. Results Last 48 Hours of Labs: Laboratory Tests 01/06 01/05 01/05 0650 1522 0700 Chemistry Sodium (137 - 145 mmol/L) Pending 142 Potassium (3.5 - 5.1 mmol/L) Pending 4.1 Chloride (98 - 107 mmol/L) Pending 103 Carbon Dioxide (22 - 30 mmol/L) Pending 28 Anion Gap (5 - 16) Pending 10 BUN (7 - 17 mg/dL) Pending 17 Creatinine (0.5 - 1.0 mg/dL) Pending 0.7 Estimated GFR (>60 ml/min) > 60 BUN/Creatinine Ratio (7 - 25 %) Pending 24.3 Coagulation PT (9.4 - 12.5 SEC) 16.0 H 18.9 H INR (0.90 - 1.19) 1.46 H 1.72 H APTT (25 - 37 SEC) 29 Hematology CBC w Diff Pending NO MAN DIFF REQ WBC (4.8 - 10.8 /CUMM) Pending 9.9 RBC (4.20 - 5.40 /CUMM) Pending 2.84 L Hgb (12.0 - 16.0 G/DL) Pending 7.9 L Hct (37 - 47 %) Pending 23.4 L MCV (81.0 - 99.0 FL) Pending 82.3 MCH (27.0 - 31.0 PG) Pending 27.7 MCHC (33.0 - 37.0 G/DL) Pending 33.6 RDW (11.5 - 14.5 %) Pending 15.2 H Plt Count (130 - 400 /CUMM) Pending 507 H MPV (7.4 - 10.4 FL) Pending 7.5 Gran % (42.2 - 75.2 %) 67.7 Lymphocytes % (20.5 - 51.1 %) 19.0 L Monocytes % (1.7 - 9.3 %) 9.3 Eosinophils % (0 - 5 %) 3.5 Basophils % (0.0 - 2.0 %) 0.5 Absolute Granulocytes (1.4 - 6.5 /CUMM) 6.7 H Absolute Lymphocytes (1.2 - 3.4 /CUMM) 1.9 Absolute Monocytes (0.10 - 0.60 /CUMM) 0.9 H Absolute Eosinophils (0.0 - 0.7 /CUMM) 0.4 Absolute Basophils (0.0 - 0.2 /CUMM) 0 ESR Westergren (0 - 20 MM) 100 H 01/050 1939 1923 Chemistry Sodium (137 - 145 mmol/L) 139 Potassium (3.5 - 5.1 mmol/L) 4.2 Chloride (98 - 107 mmol/L) 100 Carbon Dioxide (22 - 30 mmol/L) 28 Anion Gap (5 - 16) 10 BUN (7 - 17 mg/dL) 19 H Creatinine (0.5 - 1.0 mg/dL) 0.7 Estimated GFR (>60 ml/min) > 60 BUN/Creatinine Ratio (7 - 25 %) 27.1 H Glucose (65 - 99 mg/dL) 131 H Lactic Acid (0.7 - 2.1 mmol/L) 0.7 0.6 L Calcium (8.4 - 10.2 mg/dL) 9.7 Total Bilirubin (0.2 - 1.3 mg/dL) 0.2 AST (14 - 36 U/L) 20 ALT (9 - 52 U/L) 26 Alkaline Phosphatase (<127 U/L) 93 Troponin I (< 0.11 ng/ml) < 0.01 Total Protein (6.3 - 8.2 g/dL) 6.5 Albumin (3.5 - 5.0 g/dL) 3.5 Globulin (1.9 - 4.2 gm/dL) 3.0 Albumin/Globulin Ratio (1.1 - 2.2 %) 1.2 Coagulation PT (9.4 - 12.5 SEC) 18.8 H INR (0.90 - 1.19) 1.72 H APTT (25 - 37 SEC) 32 Hematology CBC w Diff NO MAN DIFF REQ WBC (4.8 - 10.8 /CUMM) 12.3 H RBC (4.20 - 5.40 /CUMM) 3.12 L Hgb (12.0 - 16.0 G/DL) 8.5 L Hct (37 - 47 %) 25.6 L MCV (81.0 - 99.0 FL) 82.2 MCH (27.0 - 31.0 PG) 27.2 MCHC (33.0 - 37.0 G/DL) 33.1 RDW (11.5 - 14.5 %) 15.0 H Plt Count (130 - 400 /CUMM) 565 H MPV (7.4 - 10.4 FL) 7.0 L Gran % (42.2 - 75.2 %) 74.1 Lymphocytes % (20.5 - 51.1 %) 13.1 L Monocytes % (1.7 - 9.3 %) 9.7 H Eosinophils % (0 - 5 %) 2.8 Basophils % (0.0 - 2.0 %) 0.3 Absolute Granulocytes (1.4 - 6.5 /CUMM) 9.1 H Absolute Lymphocytes (1.2 - 3.4 /CUMM) 1.6 Absolute Monocytes (0.10 - 0.60 /CUMM) 1.2 H Absolute Eosinophils (0.0 - 0.7 /CUMM) 0.3 Absolute Basophils (0.0 - 0.2 /CUMM) 0 Urines Urine Color Cancelled Urine Clarity Cancelled Urine pH Cancelled Ur Specific [place] Cancelled Urine Protein Cancelled Urine Ketones Cancelled Urine Nitrite Cancelled Urine Bilirubin Cancelled Urine Urobilinogen Cancelled Ur Leukocyte Esterase Cancelled Ur Microscopic Cancelled Urine Hemoglobin Cancelled Urine Glucose Cancelled Assessment/Plan Assessment/Plan A- POD1 sp washout/i&D of persistent lumbar surgical wound infection, on vanco per id, hyperglycemic likely due to operative/infectious stress, with anemia present on admission, with postop pain. P- -await further ID input, DW Dr. Simon. ID aware of previous VRE cultures, cont vanco for now, await OR cultures from yest. -cont wound vac- to be changed with Dr. Najera 4pm tomorrow -hyperglycemia- insulin scale adjusted, D5NS stopped, CC2 diet ordered. May need long acting coverage if no improvement- will monitor today -anemia present on admission (hct 25), fu todays cbc. may need transfusion if symptomatic -pain- pt wants vicodin, neurontin prn and moprhine for breakthrough -needs oob- pt ordered, ambulate -dvt ppx- hep sq, alps only. no coumadin per dr. najera -cont picc line -dc day once oob today - titrate o2 off -htn- on all home meds. -appreciate medicine input -will dw attending Core Measures Venous Thromboembolism VTE Risk Factors VTE (Previous) No Mechanical VTE Prophylaxis d/t N/A MechProphylax Ordered No VTE Pharm Prophylaxis d/t Surgical Contraindication (per dr najera) Dania HARRIS,Ray Rose 01/08/180: Attending MD Review Statement Attending Statement Attending MD Statement: examined this patient, discuss w/resident/PA/TARIFF EXPERT, agreed w/resident/PA/TARIFF EXPERT, discussed with family, reviewed EMR data (avail) Attending Assessment/Plan: Patient seen by Dr. Najera on 01/06/2018 @ 06:00 PM: Reasonably comfortable, responsive and conversational although c/o surgical site pain. No radiation. No report of fever. Not yet mobilized. Patient declined today d/t limited pain tolerance. Pain controlled with oral Hydrocodone but requiring IV breakthrough at times. Vac had leak and loss of pressure earlier today. Glove Examiner rep came in and assisted PA in vac change without issue. Bed reportedly clean. WBC elevated at 14. HCT low but stable at 24. Sterilely prepped and collecteed operative cultures positive for VRE confirming results from ER. AVSS by nursing report. PICC site clean. Dressing clean and dry currently with negative pressure seal intact. Surrounding skin and visible soft tissues appear normal. ANEL SAENZ Will discuss with Dr. Simon but appears that he has already made arrangements to change ABX to cover VRE. Continue with plan to change Vac every 2 days (, Thu, Thu) until early next week when decision will be made regarding rehab and continued irrigating VAC versus dischard home and change to portable [id number] Vac. Will call [employer] Consultant to adjust brace for Vac and tubes. Hold Coumadin until close to D/C. Will discuss long-range palns with Medicine at that time. SQ Heparin is acceptable for now if they feel strongly that some form of anticoagulation is necessary.
[2018-01-06 09:03] LABS: ABSOLUTE BASOPHIL COUNT 0 /CUMM (0.0-0.2); ABSOLUTE EOSINOPHIL COUNT 0 /CUMM (0.0-0.7); ABSOLUTE GRANULOCYTE CT 12.7 /CUMM (1.4-6.5); ABSOLUTE LYMPH COUNT 0.8 /CUMM (1.2-3.4); ABSOLUTE MONOCYTE COUNT 0.2 /CUMM (0.10-0.60); BASOPHIL % 0.3 % (0.0-2.0); EOSINOPHIL % 0 % (0-5); HEMATOCRIT 23.8 % (37-47); MEAN CORPUSCULAR HGB 27.6 PG (27.0-31.0); MEAN CORPUSCULAR HGB CONC 33.6 G/DL (33.0-37.0); MEAN PLATELET VOLUME 7.4 FL (7.4-10.4); PLATELET COUNT 463 /CUMM (130-400); RBC DISTRIBUTION WIDTH 15.1 % (11.5-14.5); WHITE BLOOD CELL COUNT 13.8 /CUMM (4.8-10.8)
[2018-01-06 09:50] LABS: GRANULOCYTE % 92.1 % (42.2-75.2)
--- NOTE | 2018-01-06 10:11 | PN- Medicine Consult ---
Casandra Armstrong 01/06/18 1010: Assessment/PlanMedical Consult Assessment/Plan Assessment: Patient is 72-year-old woman with past medical history of TIA on plavix, hyperlipidemia, hypertension, asthma, COPD, GERD, chronic back pain status post spinal fusion, NIDD, right upper extremity DVT secondary to a recently placed PICC, now on warfarin, PVD, b/l lung nodules, was sent to ED by Ray Najera MD for persistent wound infection. Patient is postoperative day 12 status post I &D of lumbar wound with hardware removal. With multiple recent I&Ds of this wound infection. Patient was discharged from hospital on 12/31, had OR cultures positive for MRSA and was discharged on vancomycin. Patient came back to ED on for wound drainage and pain. Superficial cultures taken in ED at that time grew out VRE. Patient was continued on vancomycin and was taken to OR on 01/05 for wound debridement and wound VAC was placed. CT lumbar spine from 01/04: Again there are recent changes related to the removal of a transpedicular hardware construct with residual screw tracks visible within the L2-S1 vertebra. The L3-S1 vertebral segments appear chronically fused. Possible nonunion at L2-L3. There is an acute compression fracture of the L2 vertebral body with impaction of the upper endplate resulting in 30% vertebral body height loss anteriorly and buckling with retropulsion of the posterior cortex causing minimal indentation of the ventral thecal sac. The canal and foramina are better illustrated on the dedicated lumbar spine MRI from 01/04/2018. The known peripherally enhancing paraspinal fluid collection consistent with an abscess is also better demonstrated on prior imaging. Plan: Problem list 1. Persistent surgical site infection 2. Diabetes Mellitus 3. hx of Hypertension 4. hx of TIA 5. Hx of DVT- anticoagulation held 6. VRE and MRSA contact isolation Patient is admitted to general medicine floor under orthopedic surgery service and medicine team is consulted for management of comorbidities. Patient continues to be hyperglycemic with blood sugars elevated to 389, of note patient was on D5 normal saline which was stopped this morning, her sliding scale was changed by surgical team to high-dose sliding scale. Her elevated sugars could be due to D5 normal saline, will monitor closely for blood sugars tonight which are expected to come down. Given that her OR culture is growing VRE, antibiotics are switched to linezolid by infectious disease consult service as it covers both VRE and MRSA. Continue the rest of his home meds including hydrochlorothiazide, omeprazole, losartan, diltiazem seemed, loratadine, gabapentin. Pain management with morphine and Vicodin as needed. Patient's Coumadin is held, resume per orthopedic surgery recommendations, continue support his heparin for DVT prophylaxis. Patient is full code. Subjective Subjective: Patient seen and examined. Spoke with surgical PA, patient had debridement done yesterday and has a wound vac in place which will need to be replaced today as it is leaking. Patient continues to report of back pain. Her blood sugars were also elevated this mroning to 389 at 7-8 am, D5-NS now stopped. She has a picc line in left upper extremety. Review of Systems Constitutional: Reports: see HPI. Objective Last 24 Hrs of Vital Signs/I&O Vital Signs Date Time Temp Pulse Resp B/P B/P Pulse O2 O2 Flow FiO2 Mean Ox Delivery Rate 01/06 0807 98.5 84 20 160/68 01/06 0620 98.5 84 20 160/68 95 Nasal Cannula 01/06 0000 Nasal 2.0L Cannula 01/05 2126 97.8 64 18 132/68 97 01/05 2045 97 Nasal 2.0L Cannula 01/05 1421 98.3 78 20 135/82 95 Room Air Intake & Output 01/06 1600 01/06 0800 01/06 0000 Intake Total 1200 760 Output Total 900 450 Balance 300 310 Intake, IV 800 400 Intake, Oral 400 360 Output, 250 Drainage Output, Urine 650 450 Physical Exam General Appearance: well developed/nourished, alert, awake, anxious Head: atraumatic, normal appearance Neck: normal inspection, supple Cardiovascular: regular rate/rhythm Respiratory: normal breath sounds, chest non-tender Abdomen: normal bowel sounds, soft, non-tender Back: dressing with wound vac in place. no visible discharge Extremities: 1+ edema b/l Current Medications: Current Medications Sig/Clementine Start time Last Medication Dose Route Stop Time Status Admin Acetaminophen 1,000 MG .STK-MED ONE 01/05 1536 DC IV 01/05 1537 Albuterol Sulfate 3 ML BID 01/05 2100 AC 01/05 INH 2045 Albuterol Sulfate 2 PUF Q6P PRN 01/05 2000 AC 01/05 INH 2350 Benzonatate 100 MG TID 01/06 0200 AC 01/06 PO 0807 Budesonide/ 2 PUF BID 01/04 2100 AC 01/06 Formoterol Fumarate INH 0817 Cyclobenzaprine HCl 5 MG Q12P PRN 01/05 0015 AC 01/05 PO 0017 Dexamethasone 4 MG .STK-MED ONE 01/05 1536 DC IM 01/05 1537 Dextrose/Sodium 1,000 ML Q10H 01/05 0000 DC 01/06 Chloride IV 0642 Diltiazem HCl 300 MG DAILY 01/05 0900 AC 01/06 PO 0807 Docusate Sodium 100 MG BID 01/04 2100 AC 01/06 PO 1021 Fentanyl Citrate 250 MCG .STK-MED ONE 01/05 1535 DC IM 01/05 1536 Gabapentin 300 MG Q8P PRN 01/05 2000 AC 01/06 PO 0807 Heparin Sodium 5,000 UNIT Q8 01/06 0625 AC 01/06 (Porcine) SC 0642 Hydrochlorothiazide 25 MG DAILY 01/06 0900 AC 01/06 PO 1021 Hydrocodone Bitart/ 2 TAB Q4P PRN 01/05 2000 AC 01/06 Acetaminophen PO 1022 Hydromorphone HCl 2 MG .STK-MED ONE 01/05 1911 DC IM 01/05 191 Hydromorphone HCl 2 MG .STK-MED ONE 01/05 1534 DC IM 01/05 1535 Insulin Aspart 0 TIDAC 01/06 0815 AC 01/06 SC 0816 Insulin Aspart 0 TIDAC 01/06 0800 CAN SC Insulin Aspart 0 TIDAC 01/06 0800 DC SC Insulin Human Regular 2 UNITS .STK-MED ONE 01/05 1314 DC IV 01/05 1315 Insulin Human Regular 0 Q6 01/04 2359 DC 01/05 SC 1323 Loratadine 10 MG DAILY 01/05 0900 AC 01/06 PO 0807 Losartan Potassium 100 MG DAILY 01/05 0900 AC 01/06 PO 0807 Melatonin 9 MG QPM 01/04 2100 AC 01/05 PO 204 Midazolam HCl 2 MG .STK-MED ONE 01/05 1535 DC IM 01/05 1536 Montelukast Sodium 10 MG DAILY 01/05 0900 AC 01/06 PO 0807 Morphine Sulfate 2 MG Q2 HRS NEEDED PRN 01/06 0800 AC 01/06 IV 0817 Morphine Sulfate 4 MG Q3P PRN 01/05 191 DC IV Morphine Sulfate 2 MG Q4P PRN 01/05 2000 DC IV Non-Formulary 600 UNIT Q12 01/06 1051 UNVr Medication ANY Omeprazole 40 MG DAILY AC 01/05 07 AC 01/06 PO 0642 Ondansetron HCl 8 MG .STK-MED ONE 01/05 1536 DC IM 01/05 1537 Ondansetron HCl 4 MG Q6-PRN PRN 01/05 2000 AC IV Polyethylene Glycol 17 GM DAILY 01/06 09 AC 01/06 PO 0808 Vancomycin HCl 1,750 MG 1500 01/05 1500 DC 01/05 Sodium Chloride 500 ML IV 1526 Vancomycin HCl 1,750 MG DAILY 01/05 0900 DC Sodium Chloride 500 ML IV Results Last 24 Hrs Lab/Chucky Results: Laboratory Tests 01/06/18 0650: Anion Gap 10, Estimated GFR > 60, BUN/Creatinine Ratio 18.3, CBC w Diff NO MAN DIFF REQ, RBC 2.90 L, MCV 82.0, MCH 27.6, MCHC 33.6, RDW 15.1 H, MPV 7.4, Gran % 92.1 H, Lymphocytes % 6.2 L, Monocytes % 1.4 L, Eosinophils % 0, Basophils % 0.3, Absolute Granulocytes 12.7 H, Absolute Lymphocytes 0.8 L, Absolute Monocytes 0.2, Absolute Eosinophils 0, Absolute Basophils 0 01/05/18 1522: PT 16.0 H, INR 1.46 H Microbiology 01/05 1908 URINE ROUT: Urine Culture - COLB 01/05 1737 TRUNK/O.R.: Culture & Sensitivity - RES 01/05 173 TRUNK/O.R.: Gram Stain - RES 01/05 173 TRUNK/O.R.: Culture & Sensitivity - RES 01/05 173 TRUNK/O.R.: Gram Stain - RES 01/05 172 TRUNK/O.R.: Culture & Sensitivity - RES 01/05 172 TRUNK/O.R.: Gram Stain - RES 01/05 1715 BODY FLUID: Body Fluid Culture - RES 01/05 1715 BODY FLUID: Gram Stain - RES 01/05 171 BODY FLUID: Body Fluid Culture - RES 01/05 1710 BODY FLUID: Gram Stain - RES 01/05 1710 BODY FLUID: Body Fluid Culture - RES 07/24 1710 BODY FLUID: Gram Stain - RES Otis HARRIS,Kenna 01/06/18 1252: Attending MD Review Statement Attending Sign Off Attending Cosign Statement: I have: examined this patient, reviewed aval EMR data, personally reviewd images, discussd w/resident/PA/AIRLINE STATION AGENT, discussed mgmt plan w/anna marie, discussed mgmt plan w/pt, agreed w/resident/PA/AIRLINE STATION AGENT, amended to note. Other Findings: Patient seen and examined, not feeling too well. She was complaining of some pain. She had a wound VAC change this morning as it was leaking. Patient is admitted on orthopedic service for consistent surgical site wound infection in her back. Vital Signs Date Time Temp Pulse Resp B/P B/P Pulse O2 O2 Flow FiO2 Mean Ox Delivery Rate 01/06 1152 95 Room Air Room Air 01/06 0807 98.5 84 20 160/68 01/06 0620 98.5 84 20 160/68 95 Nasal Cannula 01/06 0000 Nasal 2.0L Cannula 01/05 2126 97.8 64 18 132/68 97 01/05 2045 97 Nasal 2.0L Cannula 01/05 1421 98.3 78 20 135/82 95 Room Air on exam; aox3, nad. cv; s1,s2, rrr resp; clear abd; soft, nt, bs+ ext; no edema skin: + wound vac on back. Laboratory Tests 01/06 01/05 0650 1522 Chemistry Sodium (137 - 145 mmol/L) 138 Potassium (3.5 - 5.1 mmol/L) 4.6 Chloride (98 - 107 mmol/L) 101 Carbon Dioxide (22 - 30 mmol/L) 27 Anion Gap (5 - 16) 10 BUN (7 - 17 mg/dL) 11 Creatinine (0.5 - 1.0 mg/dL) 0.6 Estimated GFR (>60 ml/min) > 60 BUN/Creatinine Ratio (7 - 25 %) 18.3 Coagulation PT (9.4 - 12.5 SEC) 16.0 H INR (0.90 - 1.19) 1.46 H Hematology CBC w Diff NO MAN DIFF REQ WBC (4.8 - 10.8 /CUMM) 13.8 H RBC (4.20 - 5.40 /CUMM) 2.90 L Hgb (12.0 - 16.0 G/DL) 8.0 L Hct (37 - 47 %) 23.8 L MCV (81.0 - 99.0 FL) 82.0 MCH (27.0 - 31.0 PG) 27.6 MCHC (33.0 - 37.0 G/DL) 33.6 RDW (11.5 - 14.5 %) 15.1 H Plt Count (130 - 400 /CUMM) 463 H MPV (7.4 - 10.4 FL) 7.4 Gran % (42.2 - 75.2 %) 92.1 H Lymphocytes % (20.5 - 51.1 %) 6.2 L Monocytes % (1.7 - 9.3 %) 1.4 L Eosinophils % (0 - 5 %) 0 Basophils % (0.0 - 2.0 %) 0.3 Absolute Granulocytes (1.4 - 6.5 /CUMM) 12.7 H Absolute Lymphocytes (1.2 - 3.4 /CUMM) 0.8 L Absolute Monocytes (0.10 - 0.60 /CUMM) 0.2 Absolute Eosinophils (0.0 - 0.7 /CUMM) 0 Absolute Basophils (0.0 - 0.2 /CUMM) 0 Assessment and recommendations. TIA on plavix, hyperlipidemia, hypertension, asthma, COPD, GERD, chronic back pain status post spinal fusion, NIDD, right upper extremity DVTon warfarin, PVD, b/l lung nodules, was sent to ED by Ray Najera MD for persistent wound infection., And status post multiple recent I&D's of this wound infection. This time admitted on January 05 with persistent drainage and pain after an MRI revealed a rim-enhancing fluid collection within the operative bed centered at the L3- S1 level. S/P repeat I&D. Patient was also seen by infectious disease and has been switched to linezolid for VRE. Postop care and wound care per orthopedic. Antibiotics per infectious disease. Blood sugar was high at this morning. Will monitor. Patient currently on sliding scale insulin. She was also on D5 IV fluids. Now that the fluids have been discontinued, expect blood sugars to improve. If continue to run high than we might have to add a basal insulin. Blood pressure was slightly high this morning but patient has received her antihypertensives. We will monitor the blood pressure. Coumadin was stopped on admission. Would recommend resuming Coumadin when okay from orthopedic standpoint. Please monitor INR once patient resumed back on Coumadin. Continue the rest of the management and pain medications. Thank you will follow with you.
--- NOTE | 2018-01-06 10:48 | Cons- Infect Disease ---
General Information and HPI Consulting Request Date of Consult: 01/06/18 Requested By: Dania HARRIS,Ray Rose Reason for Consult: Surgical site infection Source of Information: patient, old records History of Present Illness: This is a 72-year-old woman with a history of COPD, diabetes, hypertension, osteoarthritis, spinal stenosis and chronic back pain, status post decompressive lumbar laminectomy L2-S1 13 weeks prior to admission, with insertion of a cage and pedicle screws and removal of the screws from a spinal fusion 4 years earlier, with her postop course complicated by a right upper extremity DVT secondary to a recently placed PICC, for which she remains on Coumadin, status post several hospitalizations and returns to the OR since then, initially 10 weeks prior to admission for a surgical site infection secondary to Klebsiella, treated with Ciprofloxacin after an I&D with retention of the hardware, then 5 weeks prior to admission because of persistent drainage, with a repeat I&D and retention of the hardware, with her OR cultures positive for MRSA, treated with Vancomycin, and, most recently, 2 weeks prior to admission, again because of persistent drainage, with removal of the hardware and with her OR cultures negative, discharged on Vancomycin, seen in the emergency room one day after discharge with persistent drainage, found to be afebrile with a white blood cell count of 17,000 and with a superficial culture of the drainage positive for VRE, status post an MRI on the days of admission revealing a rim-enhancing fluid collection within the operative bed centered at the L3 -S1 level, measuring up to 6.8 cm, admitted on January 04 with continued pain and drainage from the surgical site, with no fevers or chills, in anticipation of a repeat I&D, which was performed on January 05. On admission she was afebrile. Laboratory data revealed a white blood cell count of 12,000, BUN/creatinine 19 and 0.7, with normal liver enzymes, INR 1.72. She was continued on Vancomycin and was taken to the OR on January 05, with purulent drainage reportedly found, and a wound VAC was placed. She has remained afebrile since admission. At present she complains of significant back pain. Allergies/Medications Allergies: Coded Allergies: Sulfa (Sulfonamide Antibiotics) (Intermediate, SKIN TURNS PURPLE/HOT 10/28/17) Penicillins (Mild, ITCHING 10/28/17) aspirin (HX GASTRITIS 10/28/17) ASA->BLEEDING atorvastatin (PER PT MED LIST 10/28/17) prednisone (Severe, VISION CHANGES 10/28/17) Uncoded Allergies: ENVIRONMENTAL (UNKNOWN 07/20/13) MULTIPLE ANTIBIOTICS (UNKNOWN 07/20/13) Home Med List: Albuterol Sulfate (Proair Hfa) 90 MCG HFA.AER.AD 2 PUF INH PRN ASTHMA/ ALLERGIES (Reported) Ascorbate Calcium (Vitamin C) 500 MG TABLET 1 TAB PO DAILY SUPPLEMENT ( Reported) Azelastine/Fluticasone (Dymista Nasal [place]) 137 MCG-50 MCG/SPRAY SPRAY.PUMP 1 SPRAY NASB PRN ALLERGIES (Reported) Budesonide/Formoterol Fumarate (Symbicort 160-4.5 Mcg Inhaler) 160 MCG-4.5 MCG/ ACTUATION HFA.AER.AD 2 PUFF INH BID ASTHMA/ALLERGIES (Reported) Cetirizine HCl (Zyrtec) 10 MG CAPSULE 1 CAP PO DAILY ALLERGIES (Reported) Cholecalciferol (Vitamin D3) (Vitamin D) 10,000 UNIT CAPSULE 1 CAP PO DAILY SUPPLEMENT (Reported) Cyclobenzaprine HCl 5 MG TABLET 1 TAB PO QPMP PRN MUSCLE SPASMS (Reported) Diltiazem HCl (Cartia Xt) 300 MG CAP.ER.24H 1 CAP PO DAILY HEART (Reported) Ferrous Sulfate 325 MG (65 MG IRON) TABLET 1 TAB PO DAILY IRON, VITAMIN ( Reported) Gabapentin 300 MG CAPSULE 300 MG PO Q8 PRN PAIN . Glimepiride 2 MG TABLET 1.5 TAB PO DAILY DM (Reported) Hydrocodone/Acetaminophen (Hydrocodon-Acetaminophen 5-325) 5 MG-325 MG TABLET 2 TAB PO Q4H PRN PAIN (Reported) Lactobacillus Acidophilus (Acidophilus) 1 EACH CAPSULE 1 CAP PO BID PROBIOTIC (Reported) Losartan/Hydrochlorothiazide (Losartan-Hctz 100-25 MG Tab) 100 MG-25 MG TABLET 1 TAB PO DAILY HTN (Reported) Melatonin 3 MG TABLET 3 TAB PO QPM SLEEP (Reported) Montelukast Sodium (Singulair) 10 MG TABLET 1 TAB PO DAILY ALLERGIES ( Reported) Multiple Vitamin (Multivitamins) 1 EACH TABLET 1 TAB PO DAILY SUPPLEMENT ( Reported) Multivit-Min/FA/Lutein/Zeaxant (Macular Vitamin Tablet) 500 MCG-5 MG-1 MG TABLET 1 TAB PO DAILY SUPPLEMENT (Reported) Omeprazole 40 MG CAPSULE. 1 CAP PO DAILY AC GERD (Reported) Ondansetron HCl (Zofran) 4 MG TABLET 1 TAB PO TID PRN NAUSEA/VOMITING ( Reported) Rosuvastatin Calcium (Crestor) 20 MG TABLET 1 TAB PO DAILY CHOLESTEROL ( Reported) Sitagliptin Phosphate (Januvia) 100 MG TABLET 1 TAB PO DAILY DM (Reported) Vancomycin/0.9 % Sod Chloride (Vanco 1.25 Gm/250 Ml-0.9% NaCl) 1.25 GRAM/250 ML PLAST..BAG 1.75 GM IV DAILY INFECTION CONTINUE UNTIL 02/05 Warfarin Sodium 5 MG TABLET 1 TAB PO AD BLOOD THINNER (Reported) Warfarin Sodium 7.5 MG TABLET 1 TAB PO AD BLOOD THINNER (Reported) Past History Travel History Traveled to [place] past 21 day No Medical History Neurological: TIA EENT: allergies Cardiovascular: hypertension, hyperlipidemia, CAROTID ARTERY STENOSIS BRADYCARDIA Respiratory: asthma, bronchitis, COPD, MRSA PNA Gastrointestinal: GERD Musculoskeletal: chronic back pain, osteoarthritis, spinal stenosis Endocrine: diabetes History of MRSA: Yes History of VRE: Yes History of CDIFF: No Isolation History: Contact Surgical History Surgical History: spinal fusion (infection sp hw removal-lumbar), tubal ligation , status post carpal tunnel release right rotator cuff GANGION CYST REMOVAL TUBAL LIGATION Family History Relations & Conditions If Any: FATHER Relation not specified for: FH: myocardial infarction Psychosocial History Where Do You Live? 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 Home: Nursing Smoking Status: Never Smoked Review of Systems Review of Systems Constitutional: Denies: chills, fever. All Other Systems: Reviewed and Negative Exam & Diagnostic Data Last 24 Hrs of Vital Signs/I&O Vital Signs Date Time Temp Pulse Resp B/P B/P Pulse O2 O2 Flow FiO2 Mean Ox Delivery Rate 01/06 0807 98.5 84 20 160/68 01/06 0620 98.5 84 20 160/68 95 Nasal Cannula 01/06 0000 Nasal 2.0L Cannula 01/05 2126 97.8 64 18 132/68 97 01/05 2045 97 Nasal 2.0L Cannula 01/05 1421 98.3 78 20 135/82 95 Room Air 01/05 1053 99 Room Air Intake & Output 01/06 1600 01/06 0800 01/06 0000 Intake Total 1200 760 Output Total 900 450 Balance 300 310 Intake, IV 800 400 Intake, Oral 400 360 Output, 250 Drainage Output, Urine 650 450 Physical Exam Other Physical Findings: She is awake and alert in moderate distress secondary to pain. She is afebrile. Skin reveals no rash. HEENT exam is negative. Neck is supple with no adenopathy. Lungs decreased breath sounds both bases. Heart regular rhythm with no murmur. Abdomen is soft, nontender with positive bowel sounds. Back dressing intact with wound VAC in place. Extremities trace edema both lower extremities; PICC in the left upper extremity with no inflammation at the site. Neuro is without focality. Last 24 Hours of Lab Results: Laboratory Tests 01/06 01/05 0650 1522 Chemistry Sodium (137 - 145 mmol/L) 138 Potassium (3.5 - 5.1 mmol/L) 4.6 Chloride (98 - 107 mmol/L) 101 Carbon Dioxide (22 - 30 mmol/L) 27 Anion Gap (5 - 16) 10 BUN (7 - 17 mg/dL) 11 Creatinine (0.5 - 1.0 mg/dL) 0.6 Estimated GFR (>60 ml/min) > 60 BUN/Creatinine Ratio (7 - 25 %) 18.3 Coagulation PT (9.4 - 12.5 SEC) 16.0 H INR (0.90 - 1.19) 1.46 H Hematology CBC w Diff NO MAN DIFF REQ WBC (4.8 - 10.8 /CUMM) 13.8 H RBC (4.20 - 5.40 /CUMM) 2.90 L Hgb (12.0 - 16.0 G/DL) 8.0 L Hct (37 - 47 %) 23.8 L MCV (81.0 - 99.0 FL) 82.0 MCH (27.0 - 31.0 PG) 27.6 MCHC (33.0 - 37.0 G/DL) 33.6 RDW (11.5 - 14.5 %) 15.1 H Plt Count (130 - 400 /CUMM) 463 H MPV (7.4 - 10.4 FL) 7.4 Gran % (42.2 - 75.2 %) 92.1 H Lymphocytes % (20.5 - 51.1 %) 6.2 L Monocytes % (1.7 - 9.3 %) 1.4 L Eosinophils % (0 - 5 %) 0 Basophils % (0.0 - 2.0 %) 0.3 Absolute Granulocytes (1.4 - 6.5 /CUMM) 12.7 H Absolute Lymphocytes (1.2 - 3.4 /CUMM) 0.8 L Absolute Monocytes (0.10 - 0.60 /CUMM) 0.2 Absolute Eosinophils (0.0 - 0.7 /CUMM) 0 Absolute Basophils (0.0 - 0.2 /CUMM) 0 Last 24 Hours of Chucky Results: Blood culture 1 January 04 negative OR culture January 05 positive for gram-positive cocci in pairs Assessment/Plan Assessment/Plan Impression: This is a 72-year-old woman status post decompressive lumbar laminectomy L2-S1 13 weeks prior to admission, with insertion of a cage and pedicle screws, status post multiple returns to the OR since then for surgical site infections, initially secondary to Klebsiella, followed by MRSA, with eventual removal of the hardware during her most recent surgery 2 weeks prior to admission, admitted on January 05 with persistent drainage and pain after an MRI revealed a rim-enhancing fluid collection within the operative bed centered at the L3- S1 level, now 1 days status post repeat I&D, with her OR cultures positive for what appears to be gram-positive cocci in pairs. Her clinical presentation is consistent with a persistent surgical site infection. It appears that the cultures are now growing Enterococci and, given the recent culture results from her superficial drainage positive for VRE, suspect that her OR cultures will also prove to be VRE. She is currently on Vancomycin but, pending the final cultures, her antibiotics should be changed to cover VRE. The recent culture for VRE revealed that the organism was sensitive to Linezolid and she can be changed to this medication pending final OR cultures. Of note her MRSA was also sensitive to Linezolid. Suggestion: 1. Follow-up final OR cultures 2. Discontinue Vancomycin 3. Begin Linezolid 600 mg p.o. every 12 hours pending above Consult Acknowledgment - Thank you for your consult request.
--- NOTE | 2018-01-06 11:01 | Operative Report ---
Operative/Inv Procedure Report Surgery Date: 01/05/18 Name of Procedure: 1) L1-S1 Lumbar And Lumbosacral Region Surgical Site Fourth Incision, Exploration, Culture, Evacuation Of Fluid Collection, And Post-Debridement Pulse Lavage Irrigation Of All Exposed [place] Soft Tissue And Osseous Structures As Well As Grafted Fusion Mass For Recurrent Postoperative Incisional Dehiscence, Recurrent Purulent Incisional Fluid Drainage And Suggestion Of Possible Associated Underlying Recurrent Purulent Fluid Collection Consistent With Potentially Infected Surgical Site Tissues Based On Preoperative ER Culture Without Evidence Of Epidural Or Anterior Column Involvement Following Complex Index Revision And New Decompression With Extension Of Multicolumn Instrumented Fusion (10/07/2017) Complicated By Late Infection Requiring Three Previous I&Ds (10/29/2017, 12/01/2017, 12/25/2017) (Marisa, MIKAYLA-TRAVIS) 2) L2-S1 Exploration Of Posterobilateral Column Lumbar And Lumbosacral Fusion With Visual And Palpation Assessment (Marisa, MIKAYLA-TRAVIS) 3) L1-S1 Lumbar And Lumbosacral Region Initial Section (Initial 20 Square Centimeters) Of Surgical Site Suprafascial, Fascial, And Deep Subfascial Tissue Layer Sharp (Scalpel Dissection), Blunt Mechanical (Curette And Other Instrument Surface Abrasion) And Hydrodynamic (Pulse Lavage) Superficial Tissue Surface Surgical Site Debridement Of All Exposed Tissues Down To The Osseous Level Including Epidermal, Dermal, Subcutaneous, Fascial, Deep Paraspinal Muscular And Both [place] (Spinous Process, Laminar, Lateral Mass And Sacral Alar) As Well As Grafted (Incorporated Bilateral L2-S1 Fusion Mass) Osseous Tissues; Debrided Osseous Dimensions: Initial Section - Initial 20 Square Centimeters Out Of A Total Debrided Osseous Area Of Approximately 80 Square Centimeters (* = Refer To This Procedure Description For Details Of Debridement) (Marisa, MIKAYLA-BC ) 4) L1-S1 Lumbar And Lumbosacral Region Second Section (2nd 20 Square Centimeters) Of Surgical Site Suprafascial, Fascial And Deep Subfascial Tissue Layer Sharp, Blunt Mechanical And Hydrodynamic Superficial Surface Tissue Layer Surgical Site Debridement* Of All Exposed Tissues Down To And Including The Osseous Tissue Level; 2nd Section - 2nd 20 Square Centimeters Out Of A Total Debrided Osseous Area Of Approximately 80 Square Centimeters ( = Refer To This Procedure Description For Details Of Additional Sections Of Debridement) ( Marisa, ROBOTICS ENGINEER-BC) 5) L1-S1 Lumbar And Lumbosacral Region Third Section (3rd 20 Square Centimeters Out Of A Total Of Approximately 80 Square Centimeters) Of Surgical Site Osseous Tissue Level Debridement (Marisa ROBOTICS ENGINEER-BC) 6) L1-S1 Lumbar And Lumbosacral Region Fourth Section (4th 20 Square Centimeters Out Of A Total Of Approximately 80 Square Centimeters) Of Surgical Site Osseous Tissue Level Debridement (Marisa ROBOTICS ENGINEER-BC) 7) Deep Bone Biopsy Of L2-S1 Posterobilateral Intertransverse-Process Fusion Mass (VLAD CunninghamP-BC) 8) L2-S1 Application Of Wound Vac To Open Suprafascial Infected Lumbar Surgical Site (VLAD CunninghamP-BC) Pre-Operative Diagnosis: Primary Surgically Treated Diagnoses: 1) L2-S1 Infected Superficial (Suprafascial) And Deep (Subfascial) Lumbar And Lumbosacral Region Surgical Site (Undergoing Active And Acute Surgical Treatment) 2) Moderate To Severe, Activity And Functionally Limiting Lumbosacral Region Back Pain Post-Operative Diagnosis: Same as preoperative diagnosis list with the addition of standard postoperative symptomatic diagnoses and without evidence of deep (subfascial) extension of infection Estimated Blood Loss: 50ml to 100ml Surgeon/Manager Environmental Health And Safety: NYASIA HARRIS,UMER Rose - Primary Admitting Orthopaedic Surgeon Surgical Providers: Umer Najera M.D. - Orthopaedic Surgeon (Primary Admitting Surgeon) Jessica Mari P.A.-C - Instructional Technology Facilitator Anesthesia: general endotracheal tube Monitors: Standard general anesthesia and other perioperative monitoring was performed per anesthesia protocols. Refer to anesthesia records for details. IV Fluids: Standard anesthesia perioperative fluid management was performed without requirement for additional or emergent fluid resuscitation. Refer to anesthesia records for details. Implants: Implants Removed: None Graft Removed: None. Minimal Superficial Layer Of Incorporating Graft Was Debrided And Sent For Culture Small Sample Of Superficial Incorporating Graft Was Biopsied And Sent For Tissue Pathology Graft Was Otherwise Found To Be Uninvolved with Infection, Incorporating Well And Therefore Was Retained New Implants Placed: None New Graft Placed: None Specialized External Device Applied: [employer] V.A.C. VERAFLO Instillation And Negative Pressure Wound Care Therapy System: V.A.C. VERAFLO CLEANSE CHOICE Dressing V.A.C. Advanced Drape V.A.C. VERAT.R.A.C. Pad and Tubing Set V.A.C. ULTA Therapy System Instillation And Negative Pressure Device Urine Output: Refer to anesthesia records for details. Drains: None Specimens: Small portion of base of L1 spinous process (in region of purulent fluid collection seen at last debridement but not involved at this time) as well as small portions of well incorporated superficial bone graft from both sides of the fusion mass (without sign of osteomyelitis) were biopsied and sent to pathology for analysis. See Microbiology section for desription of separate culture specimens. Microbiology: Multiple suprfascial and deep subfascial labelled swab, fluid and tissue culture specimens as well as small sample of superficially debrided, partially incorporated bone graft from the bilateral fusion mass sent to microbiology for analysis (gram stain, culture and sensitivity) Complications: None Operative/Procedure Note Note: Preoperative Holding Area Assessment/Preparation: The patient was evaluated in the preoperative holding area prior to surgery and no clinical changes or contraindications to surgical intervention were noted compared to the preoperative baseline findings of incisional dehiscence, thin yellow-brown drainage without gross purulence and otherwise normal neuromusculoskeletal examination documented on orthopaedic office and clearance general, medical, neurovascular and musculoskeletal evaluations. She denied any significant systemic or constitutional symptoms. She had no physiologic signs or changes to suggest systemic infection. As in the office, the patient was grossly neurovascularly intact in both lower extremities to standard testing. The patient showed no signs of acute respiratory abnormality or decompensation associated with her moderate, medication-controlled pulmonary history which seems to be under adequate control. The recent productive cough which was reported around the time of her last surgery seems to have resolved. The surgical plan and site were confirmed with the patient and preoperative paperwork was finalized. The region of the intended surgical site was marked per protocol. The primary surgeon, anesthesia care team members, and operating room staff confirmed the patient identity, surgical procedure, and operative site as well as other clinical details with the patient in an initial documented preoperative confirmation (awake time out) prior to the administration of significant sedation or anesthesia. The patient has been treated with therapeutic anticoagulation therapy for a right upper extremity DVT (at that time associated with PICC catheter which has now been changed to the opposite side) since late 09/2017 shortly after her index fusion surgery. This has been prescribed and managed by the medicine service and their recommendations are being followed regarding overall duration of therapy. The patient's anticoagulant had been held beginning the day of admission and her still elevated INR was reversed at optimal rate over the 12 hours prior to surgery using FFP (2 units preoperatively and 1 unit intraoperatively) with adequate correction confirmed prior to proceeding with the final phases of anesthesia and surgical preoperative preparation. The medicine team was notified of this change in anticoagulant therapy specific to her perioperative care. It should be noted that the patient has had some episodes of excessive bleeding related to even delayed postoperative use of anticoagulants and therefore resumption of Coumadin therapy will be deferred until the patient is fully stabilized and being planned for discharge at which time the long-term plan for anticoagulant therapy will be discussed with the primary treating medicine team. Her H/H was felt to be sufficiently low that intraoperative transfusion was recommended by both the surgeon and anesthesia team. One unit was given during the procedure using standard protocols for documentation and administration. There were no adverse reactions to transfusion noted. The patient had also been on IV Vancomycin prior to surgery and this was continued on its normal preoperative schedule without interruption so as to maintain ongoing and continuous treatment for her known MRSA infection. Prior to receiving any preoperative medications, she also confirmed her NPO status since midnight. Verbal consent for surgery had been obtained in the office prior to admission. Signed operative consent was obtained in the preoperative holding area directly from the patient with good understanding of all reasonable alternatives, indications, goals, expectations, limitations, risks and benefits of the planned procedure and proposed use of external wound care devices. The patient now has both a remote (pulmonary) and current (lumbar surgical site ) history of culture documented MRSA infections as well as screening nasal swab culture on recent admission suggesting chronic colonization. 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 There is also the suggestion of possible active lumbar surgical site infection with VRE on [facility] Department superficial cultures (although method of obtaining culture makes it impossible to distinguish cutaneous contamination from active subcutaneous tissue unfection). Contact precautions were therefore followed throughout the preoperative process and will be continued throughout her hospitalization per hospital protocol. Surgical Procedure: The procedure was performed by Dr. Najera who was present and served as the primary surgeon for all critical intraoperative and perioperative decisions and interventions. The assistance of a specialty trained surgical physician events and promotions assistant was critical for safe completion of all phases of the procedure, particularly for maintenance of clear visualization in the operative field. Jessica Mari P.A.-C assisted in this capacity throughout each critical phase of the procedure. Set-Up/Positioning/Exposure - The patient was brought to the operating room in stable condition and underwent uncomplicated induction of general anesthesia, intubation, and placement of all appropriate monitors, lines and catheters without difficulty. The left upper extremity PICC line was used for primary access. The patient was positioned prone on the Leo operating table in standard fashion for the planned procedure of mid- and lower lumbar culture, irrigation and debridement followed by exploration of posterobilateral fusion mass, partial (deep) closure and then placement of wound vac. Care was taken to protect and stabilize the spine during transfer, avoid positions of nerve stretch, pad all pressure points, and support the head without any pressure on the eyes using a foam head rest and head-holding frame. Additional foam padding was used at the iliac crest and thigh pads as well as against the Leo frame because of the patient's body mass and large size. The arms were abducted less than 90 degrees at the shoulders, flexed less than 90 degrees at the elbows and supported on well- padded arm-boards with additional foam padding from the axillary regions to the hands. All pressure points were either fully padded or supported without any contact at all between pads. The dressing was removed and was noted to have an intermediate-sized ( approximately 10 cm diameter) area of clear yellow, not otherwise discolored, nonmalodorous, nonpurulent drainage in the middle of the dressing overlying the current primary area of incisional dehiscence. The area of dehiscence remained small measuring only approzimately 3 millimeters in the middle of the incision. The entire length of the previous surgical site incision was carefully inspected. In addition to the dehicsence there were two small areas of cutaneous eschar and partial slough in the inferior third of the incision (in the original areas of incisional dehiscence debrided approximately 1 month ago). Although there was no evidence of dehiscence or drainage at these sites, the edges did not appear viable and were felt to be appropriate for resection. All maya were removed without difficulty. There was no erythema, drainage or other abnormality noted to suggest an origin or nidus at the staple sites. The entire length of the cutaneous surgical site was again carefully inspected after staple removal. The area of dehiscence in the middle of the incision and the inferior areas of eschar did not readily open further even after all maya were removed and with gentle pressure applied suggesting that the lower layers and surrounding areas of closed surgical site were healing adequately. Without significant manipulation there was only a very small amount of drainage evident at the skin level. This was clear yellow with a brownish tinge and similar to what had been documented at the time of recent office evaluation. The edges of the incision were not significantly swollen or erythematous and overall appeared normal throughout the length of the incision. The upper third of the incision appeared healthier and better healed without signs of dehiscence or incisional edge compromise. Given the patient's complex course and suboptimal healing potential related to her obesity and comorbidities, it was felt that the optimal outcome with the least adverse effect in this case would be achieved by focal zachary-incisional tissue resection of the middle dehiscence site and lower delayed healing sites along with the surrounding erythematous or otherwise compromised tissues followed by wound vac placement and (at least initial) closure by secondary intention. It was felt that this resection would likely still allow adjacent tissue advancement without excessive tissue tension in this patient given her body habitus. The patient was counseled preoperatively that scarring following this procedure or the need for any further future resection, debridement or other surgery might require more specialized plastic surgical soft tissue advancement techniques. Intermediate level pressure was applied to both sides of the surgical region and this downward pressure was maintained while additional pressure was also directed toward the midline and centered at the level of primary incisional dehiscence in an attempt to evacuate as much retained fluid collection as possible prior to prep and drape. Only a small amount of fluid was expressed similar in color and opacity to that described above. The appearance of this fluid was most consistent with seroma but persistent (MRSA), recurrent ( Klebsiella) or additional new uncovered or resistant infection (VRE or other) could not be ruled out. A resistant (presumably VRE) infected seroma was assumed given the patient's history with persistent and rapidly recurrent dehiscence and drainage very soon following thorough I&D, hardware removal and apprpriate Vancomycin antibiotic treatment for MRSA and particularly given the patient's known VRE colonization and recent positive ER culture in the area of the surgical site. The primary surgeon, anesthesia care team, and operating room staff again documented the patient identity, surgical procedure, and operative site as well as other clinical details in a final documented confirmation (final time out) prior to beginning the procedure. After sterile prep and drape using standard technique with Gel Prep, two opposing, mirror-image but otherwise symmetrical incisions involving the lower helf of the previous surgical site and circumscribing the dehiscence site as well as the two focally compromised areas of the patient's previous incision ( detailed above) were mapped and made using a #10 scalpel blade. The better healed upper half of the previous surgical site was then reopened in the midline without edge resection also using the scalpel. This combined incision and partial resection extended longitudinally from the level of the tip of the L1 spinous process to the level of the tip of the S1 spinous process overlying the previous surgical site and intended L2-S1 vertebral operative levels. These incisions completely circumscribed and resected all potentially compromised ( infected, dehisced, erythematous and hypertrophic) cutaneous and subcutaneous zachary-incisional tissues. In this case the surgical site was not extended. The total length of the elliptical resections requiring reconstruction was approximately 5 cm with the resected width being approximately 5 mm (0.25 cm on each side) for a total resected cutaneous surface area of 2.5 square centimeters. This dissection and resection was continued down through the subcutaneous layer to the level of the fascia in a tapering fashion beginning approximately 0.25 cm from the incisional edge in the regions of resection at the cutaneous level and beveling toward the midline to resect a thin and steadily decreasing thickness of subcutaneous tissue leaving adequate thickness of suprafascial tissue wall in the deep subcutaneous layer just above the fascia so as to maintain fascial vascularity and soft tissue coverage as much as possible. All superficial suture material was removed. Hemostasis was achieved using Bovie electrocautery beginning with the incision and continuing throughout the procedure with settings appropriate to each progressive level. The retained margins of the resection appeared normal with good blood supply and no evidence of further compromise or infection. Due to the patient's body habitus there was extensive fat within the subcutaneous layer and evidence of fat necrosis particularly near the dehiscence sites. Following edge resection there was no further suggestion of fat necrosis, devascularized or nonviable tissues however, although normal in appearance, the concentration of fat within the subcutaneous layer was still quite extensive. During superficial debridement a small amount of yellow-brown fluid collection consistent with infected superficial seroma was evident in the area underlying the now resected dehiscence site in the middle region of the surgical site. This fluid collection was only a few milliliters in volume. This small specimen was collected in a syringe and sent to microbiology for culture. Because of the small sample size, a swab culture was also sent of the region where this fluid collection was found following edge debridement. The fluid collection did not extend beyond the layer of tissue resected from both lateral obregno. The new tissue obregon exposed by the resection showed no sign of infection, fluid collection or abnormal tissue. The fluid collection did not appear to extend down to the fascial layer which was only exposed after digital and instrument dissection. Once exposed, there was no obvious fascial opening and the repaired fascia appeared healed throughout its length by inspection and palpation with intact suture repair and partial granulation covering. There was no sign of a sinus tract or communication with the deep space to suggest possible deep infection source or secondary extension from a superficial source. The L1-L2 paraspinous area noted to have unexpected purulence at the last I&D was dissected and carefully inspected with no sign of recurrence in that area. No abnormal odor was detected at any time during this procedure. All other fluid in the superficial space was minimal, thin, serous and appeared consistent with normal soft tissue and fatty tissue exudate in this obese patient. Given the suggestion of suprafascial infection without evidence of subfascial communication, preliminary antibiotic infused bulb irrigation was performed of the superficial exposed tissues (so as to minimize the possibility of superficial to deep seeding). The fascia was exposed in the midline taking care to preserve as much soft tissue coverage and vascularization as possible to the fascial layer. This was achieved with superficial coverage preserved throughout the length of the dissection all the way to the fascial edge on both sides particularly in the areas of incisional dehiscense or slough where superficial tissue was resected. Dorsal to ventral and lateral to medial directed manual pressure was applied to the midline fascia and paramedian overlying soft tissues in an attempt to express any subfascial fluid through any previously unidentified fascial defect that might be present however no fluid efflux or sign of communication through the fascia was found. The entire length of the fascia appeared to be well healed with intact suture repair by visual inspection, palpation and manual testing. Attempt was made to digitally dissect through the midline fascial repair but was unsuccessful. All fascial sutures were removed and even then there was no evidence of fascial dehiscence or spontaneous spread. Once sutures were removed manual digital dissection was able to separate the two sides of the fascial repair requiring a fair amount of dissecting force similar to that required for healing tissues at this postoperative stage with approximately equal force of dissection required throughout the length of the surgical site suggesting at least reasonably normal healing of the deep tissue layers with failure to heal primarily isolated to the suprafascial layers. Even with all fascial sutures removed and the fascia dissected open throughout its length there was no obvious fluid efflux from the subfascial compartment with pressure applied to the bilateral fascia as described above. This dissection was continued into the subfascial layer where the muscle also appeared to have granulated reasonably well, required fairly forceful digital dissection to elevate the muscle from the underlying osseous structures, and showed no sign of devitalized, dysvascular, compromised or grossly infected muscular side-wall tissues on inspection. With dissection completed down to the spinal osseous and laminectomy level in the midline and over the lateral fusion mass on both sides, deep Gelpi retractors were placed for optimal exposure. There was a small volume (~5 cc) of deep normal appearing nonpurulent fluid felt to be consistent with liquified hematoma which was collected in a syringe and sent to microbiology for culture. Because of the small volume a swab culture was also sent. There was healthy appearing granulation tissue without suggestion of infection seen overlying the exposed deep spinal structures including the midline decompression site and lateral fusion sites. The top layer of this granulation tissue was debrided, collected along with some of the superficial tissue of the deep side obregon and sent as microbiological tissue specimen. There was no abnormal tissue seen in the deep space. The decompressed canal was inspected and the thecal sac was found to be well covered (even moreso than at the last surgery) with healthy granulation tissue filling the epidural spaces bilaterally without any direct exposure of neural elements or dura in any region. There was no lateral epidural opening, exudate or drainage to suggest anterior column or epidural sequestrum or involvement. Therefore, no epidural exploration or neurolysis was felt to be indicated and no dissection in this region was performed. There was no suggestion of L1 or S1 spinous process osteomyelitic change. Preoperative discussion with infectious disease consultation service had agreed that both osseous tissue culture and pathological specimen would potentially be helpful in this case to assess for osteomyelitis and thus help to determine the duration of antibiotic treatment. Separate osseous culture and pathology specimens were sent of the base of the L1 spinous process (because of its proximity to purulent fluid collection at the last I&D, although no deep involvement was evident presently) and of both sides of the fusion mass. Care was taken to get adequate samples at each site without destabilizing any of these osseous structures. A combination of sharp (scalpel), rongeur (Leksell) and blunt mechanical (large curettes and Pearce elevator) dissection was used to remove granulation tissue and the superficial osseous tissue layer from all exposed deep surfaces of the surgical site obregon, the spinous processes, laminae, facets, sacral ala and fusion masses bilaterally. Some of this mechanically debrided materal was sent for tissue culture as noted above. The fusion mass was explored and inspected by visual and palpation assessment. No mechaanical testing was performed at this time. The entire arthrodesis on both sides appeared to be covered with normal and healthy-appearing granulation tissue. There was no abnormal tissue, adjacent abnormal sidewall tissue, overlying fluid collection or efflux of fluid from the fusion mass to suggest any deep involvement of infection. The area between each screw set as well as the bilateral fusion mass out to the level of the tips of the transverse processes and the lateral extent of the surgical arthrodesis was debrided down to visible fusion mass using a Leksell rongeur and straight curettes. The debrided tissue appeared normal but was included in the tissue culture specimen in any case. No loose or unincorporated graft material was identifed or required resection. The fusion mass appeared to be healing well with normal debrided surface bone which was soft and not yet fully corticated (as expected for this early timepoint following her index fusion surgery) but otherwise appeared to be healthy, well incorporated and fairly confluent without obvious gaps or defects. The posterobilateral coverage of the intertransverse zones appeared to be optimal without sign of either resorption or other loss (previous debridements, etc.) of graft resulting in paucity of fusion material for arthrodesis. The bilateral screw sites were filled in with granulation and showed no sign of fluid efflex or abnormal tissue to suggest osteomyelitic infection source from these sites. No specific or additional pedicle screw site debridement was deemed necessary in this case. After mechanical debridement, the fusion mass was again carefully inspected bilaterally and all bone graft appeared to be incorporating well. There was no retained lose or unincorporated bone graft (all of which had been removed at her previous debridements) and in fact the fusion appeared to be confluent without obvious defect. The tissue wall margins throughout the length of the surgical site appeared normal with good blood supply and no evidence of gross compromise or infection folowing completion of this multistage edge resection, surface debridement and initial irrigation. All tissue layers of the entire extent of the surgical site were thoroughly cleaned using hydrodynamic pulse lavage technique with 12 liters of antibiotic irrigation. Care was taken to avoid direct pulse lavage application to the region of the laminectomy opening which was later separately irrigated with more gentle but still high volume (500 cc) and thorough bulb irrgation. At intervals throughout the procedure the retractors were removed so that the obregon of the surgical site behind them could be effectively debrided and pulse irrigated. Once the irrigation of all tissues was complete, the suprafascial, fascial and deep tissue margins were again checked and found to be viable with reasonably good color, mechanical integrity and vascularity. There was no evidence of persistently infected or compromised tissue in any region or level of the surgical site at the end of the procedure. Closure/Recovery - The surgical site was thoroughly irrigated and hemostasis was carefully achieved prior to partial closure and wound vac placement. Initial counts were correct prior to deep layer closure. The deep lumbar muscular layer was reapproximated using #1 Maxon interrupted suture technique so as to minimize open subfascial space for hematoma collection. The fascial layer was reapproximated in a [id number] closure using #0 Maxon interrupted, figure-of- eight suture technique. Two small areas (one in the middle of each half of the fascial closure) which were approximated by adjacent suture closure but would normally be closed "water-tight" with a single interrupted suture were left unsutured to provide a reapproximated but not completely sealed opening for pressure transmission of the wound vac to the deep space so as to facilitate drainage of any fluid collection that might accumulate below the fascia at least during the initial phases of suprafascial negative pressure treatment. The edges of the fascial repair appeared healthy, viable and vascularized. All counts were correct prior to removing the drapes. The drapes were removed while sterile field was maintained. The wound vac was then placed using standard technique per its design. A fenestrated sponge was cut to fill the base of the suprafascial defect and placed against the exposed tissue layer. An unfenestrated sponge was then cut to match the same defect and placed as a secondary layer filling both the cross-sectional dimensions as well as the depth of the defect up to the cutaneous level and slight above (to allow for negative pressure sponge compression). Care was taken to avoid contact of the sponges with the cutaneous tissue so as to avoid abrasion or other irritation and potential breakdown. With the entire defect adequately filled by layered sponges as described above, the skin was prepped with Cavilon No-Sting Barrier Film and two sheets of the VAC Advanced drape were used to cover the entire width and length of the wound. Two appropriate (approximately quarter) sized holes were made in the sealing drape t expose the underlying sponge and two VAC VeraTrac Pads were applied over these openings. The inferior VeraTrac pad had both inflow and outflow (negative pressure) tubes connecting to it while the superior VeraTrac pad had only suction. The tubes were oriented vertically to exit the top of the patient's brace and minimize pressure to the underlying soft tissues. All tubes were padded with foam. The system was tested and negative pressure applied with good seal documented and negative pressure effect observed. There was no evidence of leak. The patient was turned into the supine position on the hospital bed using careful log-roll technique, avoiding torsional stress and stabilizing the lumbar region during transfer. The wound vac dressing and tubes were protected from pressure or shear stress at all times during positioning. She was then extubated in the operating room without difficulty. Recovery Room Assessment: The patient was transported to the recovery room in stable condition where gross neurological examination showed normal function on initial recovery from anesthesia with no deficits or worsening compared to her pre-operative assessments. The patient will follow the usual postoperative protocol for lower lumbar incision, drainage, debridement, exploration of fusion and partial (deep layer) closure with placement of wound vac for dehiscence and persistent infection. Some adjustments and accommodations will likely need to be made to the standard protocol because of her complex lumbar surgical history, multiple medical comorbidities, possible need to change antibiotic regimen as well as for the management of the wound vac system. Since the irrigating wound vac can only be used in a hospital or rehab facility at this time and her main benefit from this system is over the initial week of treatment until active infection has been controlled, we will plan to keep her in the hospital until the third dressing change after which, if there is no sign of infection and she is ready for home discharge, a standard portable vac can be applied which will be managed by visiting nurses at home. If there is still evidence of or concern for active infection (including consideration of possible transition to new antibiotic regimen) or if the patient will require rehab management for other reasons then the irrigating vac will be continued while it can be managed in the rehab facility and changed to the portable nonirrigating version once she is ready for home discharge from rehab. Infectious disease service will be consulted on POD #1. She will be continued on Vancomycin until culture and sensitivity microbiology results are available at which point any required change in antibiotic regimen will be determined by the infectious disease consult service and followed. She may need additional transfusions and her hemoglobin and hematocrit will be monitored daily until stable. Anticoagulation therapy will be held for the first two day postoperatively and then subcutaneous heparin may be used if medicine feels that some continues treatment is indicated. Reinitiation of Coumadin therapy will not be considered until after Vac dressing change on Thursday and then definitive longer-term treatment plan for her prior upper extremity DVT (with subsequent removal of likely inciting PICC line from that site and negative subsequent bilateral Doppler studies) will be discussed with medicine service which has been managing this condition. This will best balance the mild risks of subtherapeutic final phase DVT treatment versus the considerable risk (based on previous history in this patient as well as current requirement for negative pressure wound therapy for a large surface area potentially bleeding wound) of hemorrage or other adverse event related to starting anticoagulation during the early postoperative period." Her postoperative care plan will include early mobilization, IV (then rapidly weaning to oral) medication pain control, and discharge planning starting on postoperative day #2 or #3 once culture results have been evaluated and antibiotic treatments optimized. The plan will be to to return her to home however she may require a short inpatient rehabilitation program until she is independent with normal home activities of daily living as her is functionaly limited as well and she does not have any other help at home. Vac dressing changes will be planned for 01/07/2018, 01/09/2018 and 01/11/2018 with further plans made based on the findings at the time of that third dressing change. Premedication for dressing changes will obviosuly be required. We will make an attempt to control her vac dressing change associated pain with oral medications by that third dressing change but if IV is still required then inpatient rehab transfer may need to be considered until the pain is better tolerated. Other variations to standard protocols are described above. Given the complex nature of her lumbar condition requiring removal of posterobilateral hardware prior to documentation of mature fusion formation, a custom molded TLSO brace was fitted for the patient and has been used consistently whenever she is sitting up in or is out of bed since her last surgery. She is to continue to use the brace as previously recommended. Continuity Coordinator [employer] will be contacted to assess the need for any channels to be fashioned in the brace to accommodate the wound vac tubing. An external pulsed electromagnetic field spinal fusion osteogenesis stimulator has already been dispensed and was being used. She will continue its use for at least the next several months until solid arthrodesis and symptomatic improvement can be documented. All other postoperative plans and protocols will remain unchanged and will be followed as fully detailed in previous office records, operative reports and hospital notes. Discharge Disposition: PACU CC: Kamaljit RICHARD,Jessica; Nyasia HARRIS,Umer Rose
[2018-01-06 15:04] VITALS: BP 160/60
[2018-01-06 21:55] VITALS: BP 138/60
[2018-01-07 06:48] VITALS: BP 128/58
--- NOTE | 2018-01-07 07:35 | PN- Medicine Consult ---
Casandra Armstrong 01/07/18 0734: Assessment/PlanMedical Consult Assessment/Plan Assessment: Patient is 72-year-old woman with past medical history of TIA on plavix, hyperlipidemia, hypertension, asthma, COPD, GERD, chronic back pain status post spinal fusion, NIDD, right upper extremity DVT secondary to a recently placed PICC, now on warfarin, PVD, b/l lung nodules, was sent to ED by Ray Najera MD for persistent wound infection. Patient is postoperative day 12 status post I &D of lumbar wound with hardware removal. With multiple recent I&Ds of this wound infection. Patient was discharged from hospital on 12/31, had OR cultures positive for MRSA and was discharged on vancomycin. Patient came back to ED on for wound drainage and pain. Superficial cultures taken in ED at that time grew out VRE. Patient was continued on vancomycin and was taken to OR on 01/05 for wound debridement and wound VAC was placed. CT lumbar spine from 01/04: Again there are recent changes related to the removal of a transpedicular hardware construct with residual screw tracks visible within the L2-S1 vertebra. The L3-S1 vertebral segments appear chronically fused. Possible nonunion at L2-L3. There is an acute compression fracture of the L2 vertebral body with impaction of the upper endplate resulting in 30% vertebral body height loss anteriorly and buckling with retropulsion of the posterior cortex causing minimal indentation of the ventral thecal sac. The canal and foramina are better illustrated on the dedicated lumbar spine MRI from 01/04/2018. The known peripherally enhancing paraspinal fluid collection consistent with an abscess is also better demonstrated on prior imaging. Plan: Problem list 1. Persistent surgical site infection 2. Diabetes Mellitus 3. hx of Hypertension 4. hx of TIA 5. Hx of DVT- anticoagulation held 6. VRE and MRSA contact isolation Patient is admitted to general medicine floor under orthopedic surgery service and medicine team is consulted for management of comorbidities. Hemoglobin has dropped today, please check a cbc at 2 pm and if < 8, recommed tranfusing with 1 unit pRBC. Blood sugars are better controlled now. Given that her OR culture is growing VRE, antibiotics are switched to linezolid by infectious disease consult service as it covers both VRE and MRSA. Will be switched to PO today. Continue the rest of her home meds including hydrochlorothiazide, omeprazole, losartan, diltiazem seemed, loratadine, gabapentin. Pain management with morphine and vicodin. Patient's Coumadin is held, resume per orthopedic surgery recommendations, continue his heparin for DVT prophylaxis. Patient is full code. Problem List: 1. Surgical wound infection Subjective Subjective: Patient is seen and examined. She seems to be doing well but reports of pain , she was due for her vicodin. Review of system negative. Review of Systems Constitutional: Reports: see HPI. Objective Last 24 Hrs of Vital Signs/I&O Vital Signs Date Time Temp Pulse Resp B/P B/P Pulse O2 O2 Flow FiO2 Mean Ox Delivery Rate 01/07 0800 98.4 69 20 128/58 01/07 0648 98.4 69 20 128/58 96 Room Air 01/06 2155 98.3 84 20 138/60 96 Room Air 01/06 1504 98.5 79 18 160/60 96 01/06 1152 95 Room Air Room Air Intake & Output 01/07 1600 01/07 0800 01/07 0000 Intake Total 880 480 Output Total 830 550 Balance 50 -70 Intake, IV 400 Intake, Oral 480 480 Output, 80 100 Drainage Output, Urine 750 450 Physical Exam General Appearance: no apparent distress, alert, awake, comfortable Head: atraumatic, normal appearance Neck: normal inspection, supple Cardiovascular: regular rate/rhythm Respiratory: normal breath sounds Abdomen: soft, non-tender Extremities: dressing on the back with wound VAC in place. Current Medications: Current Medications Sig/Clementine Start time Last Medication Dose Route Stop Time Status Admin Albuterol Sulfate 3 ML BID 01/05 2100 AC 01/07 INH 0931 Albuterol Sulfate 2 PUF Q6P PRN 01/05 2000 AC 01/05 INH 2350 Alteplase, 2 MG ONE ONE 01/06 1345 DC 01/06 Recombinant IV 01/06 1346 1358 Benzonatate 100 MG TID 01/06 0200 AC 01/07 PO 0800 Budesonide/ 2 PUF BID 01/04 2100 AC 01/07 Formoterol Fumarate INH 0802 Cyclobenzaprine HCl 5 MG Q12P PRN 01/05 0015 AC 01/06 PO 2107 Diltiazem HCl 300 MG DAILY 01/05 0900 AC 01/07 PO 0759 Docusate Sodium 100 MG BID 01/04 2100 AC 01/07 PO 0800 Gabapentin 300 MG .STK-MED ONE 01/06 1638 DC PO 01/06 1639 Gabapentin 300 MG Q8P PRN 01/05 2000 AC 01/06 PO 1640 Heparin Sodium 5,000 UNIT Q8 01/06 0625 AC 01/07 (Porcine) SC 0619 Hydrochlorothiazide 25 MG DAILY 01/06 09 AC 01/07 PO 0800 Hydrocodone Bitart/ 2 TAB Q4P PRN 01/05 2000 AC 01/07 Acetaminophen PO 0623 Insulin Aspart 0 TIDAC 01/06 0815 AC 01/07 SC 0801 Lactobacillus 1 CAP BID 01/06 2100 AC 01/07 Acidophilus PO 0800 Linezolid 600 MG Q12 01/07 09 AC PO Linezolid 600 MG 1200,0 01/06 2330 DC 01/06 N/A 1 UNIT IV 01/07 0029 2233 Linezolid 600 MG 1200,2200 01/06 1200 DC 01/06 N/A 1 UNIT IV 01/06 2259 1259 Linezolid 600 MG Q12 01/06 1051 CAN PO Loratadine 10 MG DAILY 01/05 09 AC 01/07 PO 0807 Losartan Potassium 100 MG DAILY 01/05 09 AC 01/07 PO 0800 Melatonin 9 MG QPM 01/04 2100 AC 01/06 PO 2107 Montelukast Sodium 10 MG 01/07 AC PO Montelukast Sodium 10 MG DAILY 01/05 09 DC 01/06 PO 0807 Morphine Sulfate 2 MG Q2 HRS NEEDED PRN 01/06 08 AC 01/07 IV 0757 Non-Formulary 0 SEE ADMIN CRITERIA.. 01/06 1200 UNV Medication ANY Omeprazole 40 MG DAILY AC 01/05 07 AC 01/07 PO 0619 Ondansetron HCl 4 MG Q6-PRN PRN 01/05 2000 AC IV Polyethylene Glycol 17 GM DAILY 01/06 09 AC 01/07 PO 0800 Sodium Chloride 2 SPRAY Q4P PRN 01/06 1145 AC KIM Vancomycin HCl 1,750 MG 1500 01/05 1500 DC 01/05 Sodium Chloride 500 ML IV 1526 Results Last 24 Hrs Lab/Chucky Results: Laboratory Tests 01/07/18 0615: CBC w Diff NO MAN DIFF REQ, RBC 2.70 L, MCV 83.2, MCH 27.3, MCHC 32.8 L, RDW 15.6 H, MPV 7.7, Gran % 82.1 H, Lymphocytes % 10.9 L, Monocytes % 6.6, Eosinophils % 0.1, Basophils % 0.3, Absolute Granulocytes 13.9 H, Absolute Lymphocytes 1.8, Absolute Monocytes 1.1 H, Absolute Eosinophils 0, Absolute Basophils 0.1 Otis HARRIS,[facility] 01/07/18 1548: Attending MD Review Statement Attending Sign Off Attending Cosign Statement: I have: examined this patient, reviewed aval EMR data, discussd w/resident/PA/ MEDICAL EDUCATION COORDINATOR, discussed mgmt plan w/anna marie, discussed mgmt plan w/CM, discussed mgmt plan w/ pt, agreed w/resident/PA/MEDICAL EDUCATION COORDINATOR. Other Findings: Patient getting RBC transfusion. Monitor H&H. Monitor white count. Patient on linezolid per infectious disease. Blood sugars are running in acceptable range. Agree with the rest of the note as written by Dr. Armstrong.
--- NOTE | 2018-01-07 07:58 | PN- Orthopedic ---
See Addendum Subjective Subjective: Awake, alert Didn't sleep well, nothing specific Pain tolerable with meds Needs to ambulate with PT Objective Vital Signs and I&Os Vital Signs Date Time Temp Pulse Resp B/P B/P Pulse O2 O2 Flow FiO2 Mean Ox Delivery Rate 01/07 0648 98.4 69 20 128/58 96 Room Air 01/06 2155 98.3 84 20 138/60 96 Room Air 01/06 1504 98.5 79 18 160/60 96 01/06 1152 95 Room Air Room Air 01/06 0807 98.5 84 20 160/68 Intake & Output 01/07 0800 01/07 0000 01/06 1600 01/06 0800 01/06 0000 01/05 1600 Intake Total 880 901 402 1723 760 800 Output Total 830 550 450 900 450 750 Balance 50 -70 -90 300 310 50 Intake, IV 400 800 400 800 Intake, Oral 480 480 360 400 360 Output, 80 100 250 Drainage Output, Urine 750 450 450 650 450 750 Physical Exam: vss, afebrile General: alert and oriented times three Chest: clear bilaterally Wd: holding good suction Ext: warm, no edema Assessment/Plan Assessment/Plan 72yo female with wound vac vac change per Dr Najera Abx per ID - Core Measures Venous Thromboembolism VTE Risk Factors VTE (Previous) No Mechanical VTE Prophylaxis d/t N/A MechProphylax Ordered No VTE Pharm Prophylaxis d/t Surgical Contraindication (per dr najera)
[2018-01-07 08:03] LABS: ABSOLUTE BASOPHIL COUNT 0.1 /CUMM (0.0-0.2); ABSOLUTE EOSINOPHIL COUNT 0 /CUMM (0.0-0.7); ABSOLUTE GRANULOCYTE CT 13.9 /CUMM (1.4-6.5); ABSOLUTE LYMPH COUNT 1.8 /CUMM (1.2-3.4); ABSOLUTE MONOCYTE COUNT 1.1 /CUMM (0.10-0.60); BASOPHIL % 0.3 % (0.0-2.0); EOSINOPHIL % 0.1 % (0-5); GRANULOCYTE % 82.1 % (42.2-75.2); HEMATOCRIT 22.5 % (37-47); MEAN CORPUSCULAR HGB 27.3 PG (27.0-31.0); MEAN CORPUSCULAR HGB CONC 32.8 G/DL (33.0-37.0); MEAN CORPUSCULAR VOLUME 83.2 FL (81.0-99.0); MEAN PLATELET VOLUME 7.7 FL (7.4-10.4); PLATELET COUNT 448 /CUMM (130-400); RBC DISTRIBUTION WIDTH 15.6 % (11.5-14.5); WHITE BLOOD CELL COUNT 16.9 /CUMM (4.8-10.8)
--- NOTE | 2018-01-07 12:45 | PN- Infect Dx ---
See Addendum Subjective Subjective: Afebrile. She continues to complain of back pain. Objective Last 24 Hrs of Vital Signs/I&O Vital Signs Date Time Temp Pulse Resp B/P B/P Pulse O2 O2 Flow FiO2 Mean Ox Delivery Rate 01/07 0934 94 Room Air 01/07 0800 98.4 69 20 128/58 01/07 0648 98.4 69 20 128/58 96 Room Air 01/06 2155 98.3 84 20 138/60 96 Room Air 01/06 1504 98.5 79 18 160/60 96 Intake & Output 01/07 1600 01/07 0800 01/07 0000 Intake Total 880 480 Output Total 830 550 Balance 50 -70 Intake, IV 400 Intake, Oral 480 480 Output, 80 100 Drainage Output, Urine 750 450 Physical Exam Other Physical Findings: She appears comfortable, sitting in the chair, in no acute distress Lungs bibasilar crackles Heart regular rhythm with no murmur Back dressing intact Extremities PICC in the left upper extremity with no inflammation at the site; no cyanosis, clubbing or edema Castillo catheter remains in place Results Last 24 Hours of Lab Results: Laboratory Tests 01/07 615 Hematology CBC w Diff NO MAN DIFF REQ WBC (4.8 - 10.8 /CUMM) 16.9 H RBC (4.20 - 5.40 /CUMM) 2.70 L Hgb (12.0 - 16.0 G/DL) 7.4 *L Hct (37 - 47 %) 22.5 L MCV (81.0 - 99.0 FL) 83.2 MCH (27.0 - 31.0 PG) 27.3 MCHC (33.0 - 37.0 G/DL) 32.8 L RDW (11.5 - 14.5 %) 15.6 H Plt Count (130 - 400 /CUMM) 448 H MPV (7.4 - 10.4 FL) 7.7 Gran % (42.2 - 75.2 %) 82.1 H Lymphocytes % (20.5 - 51.1 %) 10.9 L Monocytes % (1.7 - 9.3 %) 6.6 Eosinophils % (0 - 5 %) 0.1 Basophils % (0.0 - 2.0 %) 0.3 Absolute Granulocytes (1.4 - 6.5 /CUMM) 13.9 H Absolute Lymphocytes (1.2 - 3.4 /CUMM) 1.8 Absolute Monocytes (0.10 - 0.60 /CUMM) 1.1 H Absolute Eosinophils (0.0 - 0.7 /CUMM) 0 Absolute Basophils (0.0 - 0.2 /CUMM) 0.1 Last 24 Hours of Chucky Results: OR cultures January 05 all positive for VRE sensitive to Linezolid Blood culture x January 04 negative Assessment/Plan ID Impression: Stable, with temperatures remaining normal, on Linezolid Day 2 of treatment for a recurrent/persistent surgical site infection, now found to be secondary to VRE , status post I&D 2 days ago. Her white blood cell count continues to increase, for unclear reasons, and will need to be monitored. Suggestion: 1. Remove Castillo catheter 2. Continue to monitor white blood cell count 3. Continue Linezolid
[2018-01-07 14:53] VITALS: BP 135/72
[2018-01-07 17:14] VITALS: BP 144/60
[2018-01-07 22:12] VITALS: BP 154/74
[2018-01-08 05:00] LABS: WHITE BLOOD CELL COUNT 16.7 /CUMM (4.8-10.8)
[2018-01-08 05:01] LABS: MEAN CORPUSCULAR HGB 27.6 PG (27.0-31.0); MEAN CORPUSCULAR VOLUME 83.6 FL (81.0-99.0); PLATELET COUNT 465 /CUMM (130-400); RBC DISTRIBUTION WIDTH 15.3 % (11.5-14.5)
[2018-01-08 05:02] LABS: ABSOLUTE BASOPHIL COUNT 0.2 /CUMM (0.0-0.2); ABSOLUTE EOSINOPHIL COUNT 0.2 /CUMM (0.0-0.7); ABSOLUTE GRANULOCYTE CT 12.1 /CUMM (1.4-6.5); ABSOLUTE LYMPH COUNT 2.6 /CUMM (1.2-3.4); ABSOLUTE MONOCYTE COUNT 1.7 /CUMM (0.10-0.60); BASOPHIL % 1.1 % (0.0-2.0); EOSINOPHIL % 1.4 % (0-5); GRANULOCYTE % 72.2 % (42.2-75.2)
[2018-01-08 05:03] LABS: RED BLOOD CELL CT 3.74 /CUMM (4.20-5.40)
[2018-01-08 05:04] LABS: HEMATOCRIT 31.3 % (37-47)
[2018-01-08 06:50] VITALS: BP 140/70
--- NOTE | 2018-01-08 07:24 | PN- Medicine Consult ---
Casandra Armstrong 01/08/18 0724: Assessment/PlanMedical Consult Assessment/Plan Assessment: Patient is 72-year-old woman with past medical history of TIA on plavix, hyperlipidemia, hypertension, asthma, COPD, GERD, chronic back pain status post spinal fusion, NIDD, right upper extremity DVT secondary to a recently placed PICC, now on warfarin, PVD, b/l lung nodules, was sent to ED by Ray Najera MD for persistent wound infection. Patient is postoperative day 12 status post I &D of lumbar wound with hardware removal. With multiple recent I&Ds of this wound infection. Patient was discharged from hospital on 12/31, had OR cultures positive for MRSA and was discharged on vancomycin. Patient came back to ED on for wound drainage and pain. Superficial cultures taken in ED at that time grew out VRE. Patient was continued on vancomycin and was taken to OR on 01/05 for wound debridement and wound VAC was placed. CT lumbar spine from 01/04: Again there are recent changes related to the removal of a transpedicular hardware construct with residual screw tracks visible within the L2-S1 vertebra. The L3-S1 vertebral segments appear chronically fused. Possible nonunion at L2-L3. There is an acute compression fracture of the L2 vertebral body with impaction of the upper endplate resulting in 30% vertebral body height loss anteriorly and buckling with retropulsion of the posterior cortex causing minimal indentation of the ventral thecal sac. The canal and foramina are better illustrated on the dedicated lumbar spine MRI from 01/04/2018. The known peripherally enhancing paraspinal fluid collection consistent with an abscess is also better demonstrated on prior imaging. Plan: Problem list 1. Persistent surgical site infection 2. Diabetes Mellitus 3. hx of Hypertension 4. hx of TIA 5. Hx of DVT- anticoagulation held 6. VRE and MRSA contact isolation 7. Pain management 8. Diarrhea -Patient is admitted to general medicine floor under orthopedic surgery service and medicine team is consulted for management of comorbidities. -She received 2 units of blood yesterday, her hemoglobin is improved to 10 this morning. -Blood sugars continue to be improved. -Patient reports of diarrhea every 2 hours since yesterday, please send stool for C. difficile given that she is on broad-spectrum antibiotics. -Continue linezolid for VRE/MRSA pending above. -Her pain is not well controlled with Vicodin, agree with adding MS Dorothy. -Continue the rest of her home meds including hydrochlorothiazide, omeprazole, losartan, diltiazem seemed, loratadine, gabapentin. Pain management with morphine and vicodin. -Patient's Coumadin is held, resume per orthopedic surgery recommendations, continue heparin for DVT prophylaxis. -Patient is full code. Subjective Subjective: Patient is seen and examined. He continues to report of back pain, 8/10 at worse, and further worsened on moving. She also reports of new onset diarrhea since yesterday, she states that her stools are formed but she is going every 2 hours. Patient was constipated since 01/05, of note, patient was given laxatives , also she was started on broad-spectrum antibiotics on admission. Review of Systems Constitutional: Reports: see HPI. Objective Last 24 Hrs of Vital Signs/I&O Vital Signs Date Time Temp Pulse Resp B/P B/P Pulse O2 O2 Flow FiO2 Mean Ox Delivery Rate 01/08 0850 95 Room Air 01/08 0650 97.4 68 20 140/70 94 Room Air 01/07 2212 98.5 81 18 154/74 96 01/07 2010 97 Room Air 01/07 1714 98.0 73 18 144/60 96 01/07 1453 98.5 71 20 135/72 97 Room Air 01/07 1326 99.1 01/07 0934 94 Room Air Intake & Output 01/08 1600 01/08 0800 01/08 0000 Intake Total 240 850 Output Total 700 600 Balance -460 250 Intake, Blood 350 Product Intake, Oral 240 500 Number 2 1 Bowel Movements Output, Urine 700 600 Physical Exam General Appearance: well developed/nourished, no apparent distress, alert, awake , comfortable Head: atraumatic, normal appearance Neck: normal inspection, supple Cardiovascular: regular rate/rhythm Respiratory: normal breath sounds, chest non-tender Abdomen: normal bowel sounds, soft, non-tender Extremities: normal inspection, no edema Current Medications: Current Medications Sig/Clementine Start time Last Medication Dose Route Stop Time Status Admin Acetaminophen 650 MG .STK-MED ONE 01/07 2316 DC PO 01/07 2317 Acetaminophen 650 MG ONCE ONE 01/07 1330 DC 01/07 PO 01/07 1331 1326 Albuterol Sulfate 3 ML BID 01/05 2100 AC 01/08 INH 0849 Albuterol Sulfate 2 PUF Q6P PRN 01/05 2000 AC 01/05 INH 2350 Benzonatate 100 MG TID 01/06 0200 AC 01/07 PO 210 Budesonide/ 2 PUF BID 01/04 2100 AC 01/07 Formoterol Fumarate INH 2110 Cyclobenzaprine HCl 5 MG Q12P PRN 01/05 0015 AC 01/06 PO 2107 Diltiazem HCl 300 MG DAILY 01/05 09 AC 01/07 PO 0759 Docusate Sodium 100 MG BID 01/04 2100 AC 01/07 PO 2108 Fluconazole 400 MG Q24H 01/07 1645 AC 01/07 PO 1736 Gabapentin 300 MG .STK-MED ONE 01/07 1547 DC PO 01/07 1548 Gabapentin 300 MG Q8P PRN 01/05 2000 AC 01/07 PO 1548 Heparin Sodium 5,000 UNIT Q8 01/06 0625 AC 01/08 (Porcine) SC 0431 Hydrochlorothiazide 25 MG DAILY 01/06 09 AC 01/07 PO 0800 Hydrocodone Bitart/ 1 TAB Q4P PRN 01/08 09 AC Acetaminophen PO Hydrocodone Bitart/ 2 TAB Q4P PRN 01/08 09 AC Acetaminophen PO Hydrocodone Bitart/ 2 TAB Q4P PRN 01/05 2000 DC 01/07 Acetaminophen PO 1050 Insulin Aspart 0 TIDAC 01/06 0815 01/07 SC 1737 Lactobacillus 1 CAP BID 01/06 2100 AC 01/07 Acidophilus PO 210 Linezolid 600 MG Q12H 01/07 2330 AC 01/07 PO 2355 Linezolid 600 MG Q12 01/07 09 DC 01/07 PO 1259 Loratadine 10 MG DAILY 01/05 09 AC 01/07 PO 0807 Losartan Potassium 100 MG DAILY 01/05 09 AC 01/07 PO 0800 Melatonin 9 MG QPM 01/04 2100 AC 01/07 PO 210 Montelukast Sodium 10 MG 01/07 AC 01/07 PO 210 Morphine Sulfate 15 MG Q8 01/08 09 AC PO Morphine Sulfate 2 MG Q2 HRS NEEDED PRN 01/06 08 AC 01/08 IV 0431 Omeprazole 40 MG DAILY AC 01/05 07 AC 01/08 PO 0431 Ondansetron HCl 4 MG Q6-PRN PRN 01/05 2000 AC IV Oxycodone HCl 5 MG Q4-6 PRN PRN 01/07 1345 DC PO Oxycodone HCl 10 MG Q4-6 PRN PRN 01/07 1345 DC 01/08 PO 0203 Polyethylene Glycol 17 GM DAILY 01/06 0900 AC 01/07 PO 0800 Sodium Chloride 2 SPRAY Q4P PRN 01/06 1145 AC KIM Zolpidem Tartrate 5 MG AT BEDTIME NEED.. 01/07 1800 AC PO Results Last 24 Hrs Lab/Chucky Results: Laboratory Tests 01/08/18 044: CBC w Diff Pending, RBC 3.74 L, MCV 83.6, MCH 27.6, MCHC 33.0, RDW 15.3 H, MPV 7.0 L, Gran % 72.2, Lymphocytes % 15.3 L, Monocytes % 10.0 H, Eosinophils % 1.4, Basophils % 1.1, Absolute Granulocytes 12.1 H, Absolute Lymphocytes 2.6, Absolute Monocytes 1.7 H, Absolute Eosinophils 0.2, Absolute Basophils 0.2 Otis HARRIS,[facility] 01/08/18 1246: Attending MD Review Statement Attending Sign Off Attending Cosign Statement: I have: examined this patient, reviewed aval EMR data, discussd w/resident/PA/ CUSTOMER CARE REPRESENTATIVE, discussed mgmt plan w/anna marie, discussed mgmt plan w/pt, agreed w/resident/PA/CUSTOMER CARE REPRESENTATIVE , amended to note. Other Findings: Patient seen and examined, not feeling well. Still complaining of back pain and now has developed diarrhea. Vital Signs Date Time Temp Pulse Resp B/P B/P Pulse O2 O2 Flow FiO2 Mean Ox Delivery Rate 01/08 1002 97.4 68 20 140/70 01/08 0850 95 Room Air 01/08 0650 97.4 68 20 140/70 94 Room Air 01/07 2212 98.5 81 18 154/74 96 01/07 2010 97 Room Air 01/07 1714 98.0 73 18 144/60 96 01/07 1453 98.5 71 20 135/72 97 Room Air 01/07 1326 99.1 ON EXAM; aox3, nad. cv; s1,s2, rrr resp; clear abd; soft, nt, bs+ + brace on . ext; no edema Laboratory Tests 01/09 440 Hematology CBC w Diff NO MAN DIFF REQ WBC (4.8 - 10.8 /CUMM) 16.7 H RBC (4.20 - 5.40 /CUMM) 3.74 L Hgb (12.0 - 16.0 G/DL) 10.4 L Hct (37 - 47 %) 31.3 L MCV (81.0 - 99.0 FL) 83.6 MCH (27.0 - 31.0 PG) 27.6 MCHC (33.0 - 37.0 G/DL) 33.0 RDW (11.5 - 14.5 %) 15.3 H Plt Count (130 - 400 /CUMM) 465 H MPV (7.4 - 10.4 FL) 7.0 L Gran % (42.2 - 75.2 %) 72.2 Lymphocytes % (20.5 - 51.1 %) 15.3 L Monocytes % (1.7 - 9.3 %) 10.0 H Eosinophils % (0 - 5 %) 1.4 Basophils % (0.0 - 2.0 %) 1.1 Absolute Granulocytes (1.4 - 6.5 /CUMM) 12.1 H Absolute Lymphocytes (1.2 - 3.4 /CUMM) 2.6 Absolute Monocytes (0.10 - 0.60 /CUMM) 1.7 H Absolute Eosinophils (0.0 - 0.7 /CUMM) 0.2 Absolute Basophils (0.0 - 0.2 /CUMM) 0.2 Assessment and recommendations; 72 y/o F with pmh sig for TIA on plavix, hyperlipidemia, hypertension, asthma, COPD, GERD, chronic back pain status post spinal fusion, NIDD, right upper extremity DVTon warfarin, PVD, b/l lung nodules, was sent to ED by Ray Najera MD for persistent wound infection., And status post multiple recent I&D's of this wound infection. This time admitted on January 05 with persistent drainage and pain after an MRI revealed a rim-enhancing fluid collection within the operative bed centered at the L3- S1 level. Overall cultures growing VRE. Patient was started on linezolid. Also fluconazole has been added as culture also grew yeast. Patient also had acute anemia. Source unclear. H&H improved after transfusion. Please check stool for guaiac. Patient currently on morphine and Vicodin for pain control. Still off of Coumadin. Will leave that up to the orthopedic to resume her Coumadin when they think it is appropriate and no further procedures are indicated. Blood sugars are stable on current regimen. DVt px; Hep sq. Thank you will follow.
--- NOTE | 2018-01-08 08:37 | PN- Orthopedic ---
Subjective Subjective: co constant pain to the back, severe, L side mostly mid lumbar region. no fever or flu like illness overnight. Objective Vital Signs and I&Os Vital Signs Date Time Temp Pulse Resp B/P B/P Pulse O2 O2 Flow FiO2 Mean Ox Delivery Rate 01/08 0650 97.4 68 20 140/70 94 Room Air 01/07 2212 98.5 81 18 154/74 96 01/07 2010 97 Room Air 01/07 1714 98.0 73 18 144/60 96 01/07 1453 98.5 71 20 135/72 97 Room Air 01/07 1326 99.1 01/07 0934 94 Room Air Intake & Output 01/08 1600 01/08 0800 01/08 0000 01/07 1600 01/07 0800 01/07 0000 Intake Total 240 850 880 480 Output Total 700 600 450 830 550 Balance -460 250 -450 50 -70 Intake, Blood 350 Product Intake, IV 400 Intake, Oral 240 500 480 480 Number 2 1 1 Bowel Movements Output, 80 100 Drainage Output, Urine 700 600 450 750 450 Physical Exam: wdwn aox3, nad, sitting upright, eating breakfast, mildly uncomfortable. back:wound vac in place, s/s drainage present. BLE-nvi, sensation and motor intact. Results Last 48 Hours of Labs: Laboratory Tests 01/08 01/07 0440 0615 Hematology CBC w Diff Pending NO MAN DIFF REQ WBC (4.8 - 10.8 /CUMM) 16.7 H 16.9 H RBC (4.20 - 5.40 /CUMM) 3.74 L 2.70 L Hgb (12.0 - 16.0 G/DL) 10.4 L 7.4 *L Hct (37 - 47 %) 31.3 L 22.5 L MCV (81.0 - 99.0 FL) 83.6 83.2 MCH (27.0 - 31.0 PG) 27.6 27.3 MCHC (33.0 - 37.0 G/DL) 33.0 32.8 L RDW (11.5 - 14.5 %) 15.3 H 15.6 H Plt Count (130 - 400 /CUMM) 465 H 448 H MPV (7.4 - 10.4 FL) 7.0 L 7.7 Gran % (42.2 - 75.2 %) 72.2 82.1 H Lymphocytes % (20.5 - 51.1 %) 15.3 L 10.9 L Monocytes % (1.7 - 9.3 %) 10.0 H 6.6 Eosinophils % (0 - 5 %) 1.4 0.1 Basophils % (0.0 - 2.0 %) 1.1 0.3 Absolute Granulocytes (1.4 - 6.5 /CUMM) 12.1 H 13.9 H Absolute Lymphocytes (1.2 - 3.4 /CUMM) 2.6 1.8 Absolute Monocytes (0.10 - 0.60 /CUMM) 1.7 H 1.1 H Absolute Eosinophils (0.0 - 0.7 /CUMM) 0.2 0 Absolute Basophils (0.0 - 0.2 /CUMM) 0.2 0.1 Assessment/Plan Assessment/Plan pod3 sp I and D lumbar post op wound secondary to infection, VRE, ? kristen OM, prevoius decompressive lumbar laminectomy L2-S1 fusion 13w ago, mulitple I and D secondary to infection and hardware removal 12/25 Continue wound vac: Thu//Sat schedule acute blood loss anemia: improved, responded nicely to Transfusion of 2U yesterday. Abx per ID: Zyvox, awaiting final cultures/fungal cultures, on diflucan trend cbc/wbc Poor pain control, requiring morphine IV frequently. will add long acting oral narcotic and switch to vidodin (pt prefers over oxycodone). Core Measures Venous Thromboembolism VTE Risk Factors VTE (Previous) No Mechanical VTE Prophylaxis d/t N/A MechProphylax Ordered No VTE Pharm Prophylaxis d/t Surgical Contraindication (per dr garcia)
--- NOTE | 2018-01-08 10:01 | PN- Neurosurgical ---
Surgical Brief Attending Note Brief Attending Note: Postoperative day #3 Still complaining of back pain Some element of diarrhea Finally out of bed to chair Growing VRE from most of the cultures including deep ones and possibly from the bone graft Also seems to have Chana superinfection superficially WBCs still rising Plan is to add appropriate treatment to the antibiotic regimen, continue wound VAC treatment and mobilize as much as possible She will probably need SNF after her hospital stay here instead of going home Discussed with Eron Simon MD
--- NOTE | 2018-01-08 10:46 | PN- Infect Dx ---
Subjective Subjective: Afebrile. She continues to complain of severe back pain. She also notes soft stools. Objective Last 24 Hrs of Vital Signs/I&O Vital Signs Date Time Temp Pulse Resp B/P B/P Pulse O2 O2 Flow FiO2 Mean Ox Delivery Rate 01/08 1002 97.4 68 20 140/70 01/08 0850 95 Room Air 01/08 0650 97.4 68 20 140/70 94 Room Air 01/07 2212 98.5 81 18 154/74 96 01/07 2010 97 Room Air 01/07 1714 98.0 73 18 144/60 96 01/07 1453 98.5 71 20 135/72 97 Room Air 01/07 1326 99.1 Intake & Output 01/08 1600 01/08 0800 01/08 0000 Intake Total 240 850 Output Total 700 600 Balance -460 250 Intake, Blood 350 Product Intake, Oral 240 500 Number 2 1 Bowel Movements Output, Urine 700 600 Patient 173 lb Weight Physical Exam Other Physical Findings: She is awake and alert, in mild distress secondary to pain Back dressing intact Extremities PICC in the left upper extremity with no inflammation at the site Results Last 24 Hours of Lab Results: Laboratory Tests 01/08 0440 Hematology CBC w Diff NO MAN DIFF REQ WBC (4.8 - 10.8 /CUMM) 16.7 H RBC (4.20 - 5.40 /CUMM) 3.74 L Hgb (12.0 - 16.0 G/DL) 10.4 L Hct (37 - 47 %) 31.3 L MCV (81.0 - 99.0 FL) 83.6 MCH (27.0 - 31.0 PG) 27.6 MCHC (33.0 - 37.0 G/DL) 33.0 RDW (11.5 - 14.5 %) 15.3 H Plt Count (130 - 400 /CUMM) 465 H MPV (7.4 - 10.4 FL) 7.0 L Gran % (42.2 - 75.2 %) 72.2 Lymphocytes % (20.5 - 51.1 %) 15.3 L Monocytes % (1.7 - 9.3 %) 10.0 H Eosinophils % (0 - 5 %) 1.4 Basophils % (0.0 - 2.0 %) 1.1 Absolute Granulocytes (1.4 - 6.5 /CUMM) 12.1 H Absolute Lymphocytes (1.2 - 3.4 /CUMM) 2.6 Absolute Monocytes (0.10 - 0.60 /CUMM) 1.7 H Absolute Eosinophils (0.0 - 0.7 /CUMM) 0.2 Absolute Basophils (0.0 - 0.2 /CUMM) 0.2 Last 24 Hours of Chucky Results: OR cultures January 05 positive for VRE, with yeast isolated from 2 of the cultures , both labeled suprafascial Assessment/Plan ID Impression: Stable, with temperatures remaining normal, but with a persistent leukocytosis, now 3 days status post I&D of a surgical site infection. She is now on Linezolid, Day 3 for VRE isolated from all of her recent OR cultures and Fluconazole, begun yesterday after 2 of her OR cultures, both superficial, grew yeast, with the ID pending. She reports soft stools, not suggestive of C. difficile but, if they become liquidy, would rule this out. Suggestion: 1. Follow-up final OR cultures 2. Continue Linezolid and Fluconazole pending above
[2018-01-08 14:33] VITALS: BP 128/66
[2018-01-08 22:21] VITALS: BP 122/60
[2018-01-09 06:44] VITALS: BP 158/72
--- NOTE | 2018-01-09 10:19 | PN- Neurosurgical ---
See Addendum Subjective Subjective: C/o back pain which is controlled with vicodin. She is frustrated she hasn't ambulated lately. She denies fever, chills, nausea, vomiting. Objective Vital Signs and I&Os Vital Signs Date Time Temp Pulse Resp B/P B/P Pulse O2 O2 Flow FiO2 Mean Ox Delivery Rate 01/09 1024 98 Room Air 01/09 0843 74 158/72 01/09 0644 98.0 74 20 158/72 96 01/08 2221 98.3 82 19 122/60 96 Room Air 01/08 1827 98 Room Air 01/08 1433 98.7 78 17 128/66 97 Room Air Intake & Output 01/09 1600 01/09 0800 01/09 0000 01/08 1600 01/08 0801/08 0000 Intake Total 400 300 240 850 Output Total 600 60 700 600 Balance -200 240 -460 250 Intake, Blood 350 Product Intake, Oral 400 300 240 500 Number 1 2 1 Bowel Movements Output, 60 Drainage Output, Urine 600 700 600 Patient 173 lb Weight Physical Exam: Gen - resting comfortably in nad Back - brace in place, wound vac in place, serosang drainage present, no surrounding erythema present Ext - motor and senosry intact B/L, no edema or calf tenderness B/L Current Medications: Current Medications Sig/Clementine Start time Last Medication Dose Route Stop Time Status Admin Albuterol Sulfate 3 ML BID 01/05 2100 01/09 INH 1024 Albuterol Sulfate 2 PUF Q6P PRN 01/04 INH 2350 Benzonatate 100 MG TID 01/06 0200 01/09 PO 0843 Budesonide/ 2 PUF BID 01/04 Formoterol Fumarate INH 0847 Cyclobenzaprine HCl 5 MG Q12P PRN 01/05 0015 01/08 PO 1103 Diltiazem HCl 300 MG DAILY 01/05 0900 01/09 PO 0844 Docusate Sodium 100 MG BID 01/04 PO 2053 Fluconazole 400 MG Q24H 01/07 1645 AC 01/08 PO 1700 Gabapentin 300 MG Q8P PRN 01/04 PO 2043 Heparin Sodium 5,000 UNIT Q8 01/06 0625 01/09 (Porcine) SC 0640 Hydrochlorothiazide 25 MG DAILY 01/06 09 AC 01/09 PO 0843 Hydrocodone Bitart/ 1 TAB Q4P PRN 01/08 0900 AC Acetaminophen PO Hydrocodone Bitart/ 2 TAB Q4P PRN 01/08 09 AC 01/09 Acetaminophen PO 0852 Insulin Aspart 0 TIDAC 01/06 0815 AC 01/08 SC 1243 Lactobacillus 1 CAP BID 01/06 2100 AC 01/09 Acidophilus PO 0843 Linezolid 600 MG Q12 01/08 2100 AC 01/09 PO 0844 Loratadine 10 MG DAILY 01/05 09 AC 01/09 PO 0843 Losartan Potassium 100 MG DAILY 01/05 09 AC 01/09 PO 0843 Melatonin 9 MG QPM 01/04 2100 AC 01/08 PO 2052 Montelukast Sodium 10 MG 01/07 AC 01/08 PO 205 Morphine Sulfate 15 MG Q8 01/08 09 AC 01/09 PO 0639 Morphine Sulfate 2 MG Q2 HRS NEEDED PRN 01/06 08 AC 01/09 IV 1016 Omeprazole 40 MG DAILY AC 01/05 07 AC 01/09 PO 0640 Ondansetron HCl 4 MG Q6-PRN PRN 01/04 2000 AC IV Polyethylene Glycol 17 GM DAILY 01/06 09 AC 01/09 PO 0845 Sodium Chloride 2 SPRAY Q4P PRN 01/06 1145 AC 01/08 KIM 1000 Zolpidem Tartrate 5 MG AT BEDTIME NEED.. 01/07 1800 AC PO Results Last 48 Hours of Labs: Laboratory Tests 01/09 01/08 1000 0440 Hematology CBC w Diff Pending NO MAN DIFF REQ WBC (4.8 - 10.8 /CUMM) Pending 16.7 H RBC (4.20 - 5.40 /CUMM) Pending 3.74 L Hgb (12.0 - 16.0 G/DL) Pending 10.4 L Hct (37 - 47 %) Pending 31.3 L MCV (81.0 - 99.0 FL) Pending 83.6 MCH (27.0 - 31.0 PG) Pending 27.6 MCHC (33.0 - 37.0 G/DL) Pending 33.0 RDW (11.5 - 14.5 %) Pending 15.3 H Plt Count (130 - 400 /CUMM) Pending 465 H MPV (7.4 - 10.4 FL) Pending 7.0 L Gran % (42.2 - 75.2 %) 72.2 Lymphocytes % (20.5 - 51.1 %) 15.3 L Monocytes % (1.7 - 9.3 %) 10.0 H Eosinophils % (0 - 5 %) 1.4 Basophils % (0.0 - 2.0 %) 1.1 Absolute Granulocytes (1.4 - 6.5 /CUMM) 12.1 H Absolute Lymphocytes (1.2 - 3.4 /CUMM) 2.6 Absolute Monocytes (0.10 - 0.60 /CUMM) 1.7 H Absolute Eosinophils (0.0 - 0.7 /CUMM) 0.2 Absolute Basophils (0.0 - 0.2 /CUMM) 0.2 Assessment/Plan Assessment/Plan 72 F POD 4 s/p I&D lumbar post op wound secondary to infection, VRE, staph coag neg, ? kristen, prior decompressive lumbar laminectomy L2-S1 fusion 13 weeks ago , mulitple I&Ds secondary to infection and hardware removal 12/25 with acute blood loss anemia, s/p 2 units PRBCs with good response Cont wound vac, tue/thurs/sat schedule, will change tonight Cont abx per ID - oral zyvox and diflucan Pain regimen prn OOB w/ PT, WBAT w/ brace and wv F/u labs Will d/w Dr. Najera Core Measures Venous Thromboembolism VTE Risk Factors VTE (Previous) No Mechanical VTE Prophylaxis d/t N/A MechProphylax Ordered No VTE Pharm Prophylaxis d/t Surgical Contraindication (per dr najera)
[2018-01-09 11:54] LABS: MEAN PLATELET VOLUME 7.9 FL (7.4-10.4)
[2018-01-09 12:09] LABS: ABSOLUTE BASOPHIL COUNT 0 /CUMM (0.0-0.2); ABSOLUTE EOSINOPHIL COUNT 0.6 /CUMM (0.0-0.7); ABSOLUTE GRANULOCYTE CT 9.2 /CUMM (1.4-6.5); ABSOLUTE LYMPH COUNT 1.5 /CUMM (1.2-3.4); ABSOLUTE MONOCYTE COUNT 1.1 /CUMM (0.10-0.60); BASOPHIL % 0.3 % (0.0-2.0); GRANULOCYTE % 73.8 % (42.2-75.2); MEAN CORPUSCULAR HGB 27.2 PG (27.0-31.0); MEAN CORPUSCULAR HGB CONC 32.3 G/DL (33.0-37.0); MEAN CORPUSCULAR VOLUME 84.3 FL (81.0-99.0); PLATELET COUNT 490 /CUMM (130-400); RBC DISTRIBUTION WIDTH 16.1 % (11.5-14.5); RED BLOOD CELL CT 4.41 /CUMM (4.20-5.40); WHITE BLOOD CELL COUNT 12.5 /CUMM (4.8-10.8)
[2018-01-09 12:18] LABS: HEMATOCRIT 37.2 % (37-47)
--- NOTE | 2018-01-09 14:50 | PN- Att Addend ---
Attending Addendum Attending Brief Note Ms. Eduardo was seen and evaluated. Chart reviewed. Briefly, she is a 72 y/o F with PMHx: TIA on plavix, hyperlipidemia, hypertension, asthma, COPD, GERD, chronic back pain status post spinal fusion, NIDD, right upper extremity DVT on warfarin, PVD, b/l lung nodules a/w wound infection s/p multiple recent I&D's of this wound infection. This time admitted on January 05 with persistent drainage and pain after an MRI revealed a rim-enhancing fluid collection within the operative bed centered at the L3- S1 level. Found to have growing VRE. Patient was started on linezolid. Also fluconazole has been added as culture also grew yeast. Patient also had acute anemia. Source unclear. H&H improved after transfusion. Vital Signs Date Time Temp Pulse Resp B/P B/P Pulse O2 O2 Flow FiO2 Mean Ox Delivery Rate 01/09 1024 98 Room Air 01/09 0843 74 158/72 01/09 0644 98.0 74 20 158/72 96 01/08 2221 98.3 82 19 122/60 96 Room Air 01/08 1827 98 Room Air Intake & Output 01/09 1600 01/09 0800 01/09 0000 Intake Total 400 300 Output Total 600 60 Balance -200 240 Intake, Oral 400 300 Number 1 Bowel Movements Output, 60 Drainage Output, Urine 600 A/P: control. --cont to monitor blood sugars and titrate as needed. --Still off of Coumadin. Will leave that up to the orthopedic to resume her Coumadin when they think it is appropriate and no further procedures are indicated. --DVt px; Hep sq.
[2018-01-09 14:55] VITALS: BP 110/60
[2018-01-09 21:25] VITALS: BP 172/68
[2018-01-10 07:02] VITALS: BP 168/64
[2018-01-10 08:18] LABS: ABSOLUTE BASOPHIL COUNT 0 /CUMM (0.0-0.2); ABSOLUTE EOSINOPHIL COUNT 0.6 /CUMM (0.0-0.7); BASOPHIL % 0.3 % (0.0-2.0); MEAN CORPUSCULAR HGB 27.6 PG (27.0-31.0)
[2018-01-10 08:29] LABS: ABSOLUTE MONOCYTE COUNT 0.9 /CUMM (0.10-0.60); EOSINOPHIL % 5.5 % (0-5); MEAN CORPUSCULAR HGB CONC 33.2 G/DL (33.0-37.0); MEAN CORPUSCULAR VOLUME 83.2 FL (81.0-99.0); MEAN PLATELET VOLUME 7.9 FL (7.4-10.4); PLATELET COUNT 460 /CUMM (130-400); RBC DISTRIBUTION WIDTH 15.4 % (11.5-14.5); RED BLOOD CELL CT 3.79 /CUMM (4.20-5.40); WHITE BLOOD CELL COUNT 11.5 /CUMM (4.8-10.8)
[2018-01-10 08:30] LABS: HEMATOCRIT 31.6 % (37-47)
--- NOTE | 2018-01-10 08:53 | PN- Infect Dx ---
Subjective Subjective: Afebrile. Her pain has improved to some extent and she is somewhat more mobile. She does note continued soft stools. Objective Last 24 Hrs of Vital Signs/I&O Vital Signs Date Time Temp Pulse Resp B/P B/P Pulse O2 O2 Flow FiO2 Mean Ox Delivery Rate 01/10 0702 98.3 71 20 168/64 95 01/09 2125 97.5 85 16 172/68 98 Room Air 01/09 1920 97 Room Air 01/09 1455 98.3 85 20 110/60 95 Room Air 01/09 1024 98 Room Air Intake & Output 01/10 1600 01/10 0800 01/10 0000 Intake Total 450 100 Output Total 350 1002 Balance 100 -902 Intake, Oral 450 100 Output, Stool 2 Output, Urine 350 1000 Physical Exam Other Physical Findings: She appears comfortable in no acute distress Back wound VAC in place Extremities PICC in the left upper extremity with no inflammation at the site Results Last 24 Hours of Lab Results: Laboratory Tests 01/10 01/09 0530 1000 Hematology CBC w Diff NO MAN DIFF REQ NO MAN DIFF REQ WBC (4.8 - 10.8 /CUMM) 11.5 H 12.5 H RBC (4.20 - 5.40 /CUMM) 3.79 L 4.41 Hgb (12.0 - 16.0 G/DL) 10.5 L 12.0 Hct (37 - 47 %) 31.6 L 37.2 MCV (81.0 - 99.0 FL) 83.2 84.3 MCH (27.0 - 31.0 PG) 27.6 27.2 MCHC (33.0 - 37.0 G/DL) 33.2 32.3 L RDW (11.5 - 14.5 %) 15.4 H 16.1 H Plt Count (130 - 400 /CUMM) 460 H 490 H MPV (7.4 - 10.4 FL) 7.9 7.9 Gran % (42.2 - 75.2 %) 69.0 73.8 Lymphocytes % (20.5 - 51.1 %) 17.3 L 12.1 L Monocytes % (1.7 - 9.3 %) 7.9 8.8 Eosinophils % (0 - 5 %) 5.5 H 5.0 Basophils % (0.0 - 2.0 %) 0.3 0.3 Absolute Granulocytes (1.4 - 6.5 /CUMM) 8.0 H 9.2 H Absolute Lymphocytes (1.2 - 3.4 /CUMM) 2.0 1.5 Absolute Monocytes (0.10 - 0.60 /CUMM) 0.9 H 1.1 H Absolute Eosinophils (0.0 - 0.7 /CUMM) 0.6 0.6 Absolute Basophils (0.0 - 0.2 /CUMM) 0 0 Last 24 Hours of Cuhcky Results: OR cultures January 05 positive for VRE, with 2 of the cultures, labeled suprafascial wound, also positive for Chana albicans, and with one, labeled tissue culture, also positive for coag negative Staph (sensitive to Linezolid) Assessment/Plan ID Impression: Stable, with temperatures remaining normal and with her white blood cell count continuing to decrease, now 5 days status post I&D of a polymicrobial surgical site infection, on Linezolid, Day 5 for VRE isolated from all of her recent OR cultures and Fluconazole, Day 3 for Chana albicans, isolated from 2 superficial cultures. The coag negative Staph, isolated from just one culture, is of unclear significance, but it should be covered by the Linezolid. She continues to note soft, but not liquidy, stools. Suggestion: 1. Stool C. difficile if her stools becomes liquidy 2. Continue Linezolid and Fluconazole to plan on a 6 week course of antibiotics 3. Will need a weekly CBC and ESR while on the above antibiotics Temitope Chin MD will be covering until January 13
[2018-01-10 14:39] VITALS: BP 160/65
--- NOTE | 2018-01-10 19:00 | PN- Orthopedic ---
Subjective Subjective: This is a late entry. Patient seen and evaluated multiple times through the day. Overnight and into this morning patients wound VAC was leaking and had poor seal. Covering surgery PA interigated wound VAC and re-enforced as needed. Irrigation tubing had was off and new only suction tubing was in place on wound. After discussion with patient and Dr. Roger, wound VAC was again changed and irrigation tubing was placed with good seal. Otherwise, patient is doing well. She is more mobile today and pain is well controlled on current meds. She is frustrated with frequent wound VAC leaks and changes. She has had a BM and is voiding. Denies cp, dyspnea, fever, chills, sweats. Objective Vital Signs and I&Os Vital Signs Date Time Temp Pulse Resp B/P B/P Pulse O2 O2 Flow FiO2 Mean Ox Delivery Rate 01/10 1439 98.0 81 20 160/65 97 Room Air 01/10 1339 98 Room Air 01/10 0842 71 168/64 01/10 0702 98.3 71 20 168/64 95 01/09 2125 97.5 85 16 172/68 98 Room Air 01/09 1920 97 Room Air Intake & Output 01/10 1600 01/10 0800 01/10 0000 01/09 1600 01/09 0800 01/09 0000 Intake Total 320 450 100 400 300 Output Total 041 860 6920 450 600 60 Balance -30 100 -902 -450 -200 240 Intake, IV 20 Intake, Oral 300 450 100 400 300 Number 2 1 1 Bowel Movements Output, 60 Drainage Output, Stool 2 Output, Urine 075 479 9661 450 600 Physical Exam: General: elderly appearing female sitting in bedside chair, NAD Cardiac: RRR Pulm: CTA b/l wound: VAC in place, leaking at gluteal cleft with poor seal, tape was taken down and re-applied, seal was obtained and VAC appears to be working well, surround irritation from tape Extremities: alps in place, no calf tenderness, no edema Current Medications: Current Medications Sig/Clementine Start time Last Medication Dose Route Stop Time Status Admin Albuterol Sulfate 3 ML BID 01/05 INH 1855 Albuterol Sulfate 2 PUF Q6P PRN 01/04 INH 2350 Benzonatate 100 MG TID 01/06 02001/10 PO 1451 Budesonide/ 2 PUF BID 01/04 2100 AC 01/10 Formoterol Fumarate INH 0845 Cyclobenzaprine HCl 5 MG .STK-MED ONE 01/10 0931 DC PO 01/10 09 Cyclobenzaprine HCl 5 MG .STK-MED ONE 01/10 2148 DC PO 01/09 2149 Cyclobenzaprine HCl 5 MG Q12P PRN 01/05 0015 AC 01/10 PO 0934 Diltiazem HCl 300 MG DAILY 01/05 09 AC 01/10 PO 0842 Docusate Sodium 100 MG BID 01/04 2100 AC 01/09 PO 2107 Fluconazole 400 MG Q24H 01/07 1645 AC 01/10 PO 1701 Gabapentin 300 MG Q8P PRN 01/05 2000 AC 01/10 PO 0437 Heparin Sodium 5,000 UNIT Q8 01/06 0625 AC 01/10 (Porcine) SC 1455 Hydrochlorothiazide 25 MG DAILY 01/06 09 AC 01/10 PO 0841 Hydrocodone Bitart/ 1 TAB Q4P PRN 01/08 09 AC Acetaminophen PO Hydrocodone Bitart/ 2 TAB Q4P PRN 01/08 09 AC 01/10 Acetaminophen PO 1656 Insulin Aspart 0 TIDAC 01/06 0815 AC 01/10 SC 1708 Lactobacillus 1 CAP BID 01/06 2100 AC 01/10 Acidophilus PO 0841 Linezolid 600 MG Q12 01/08 2100 AC 01/10 PO 0842 Loratadine 10 MG DAILY 01/05 0900 AC 01/10 PO 0842 Losartan Potassium 100 MG DAILY 01/05 09 AC 01/10 PO 0842 Melatonin 9 MG QPM 01/04 2100 AC 01/09 PO 210 Montelukast Sodium 10 MG 01/07 AC 01/09 PO 2107 Morphine Sulfate 15 MG Q8 01/08 0900 AC 01/09 PO 0639 Morphine Sulfate 2 MG Q2 HRS NEEDED PRN 01/06 08 AC 01/10 IV 1655 Omeprazole 40 MG DAILY AC 01/05 07 AC 01/10 PO 0527 Ondansetron HCl 4 MG Q6-PRN PRN 01/04 2000 AC IV Polyethylene Glycol 17 GM DAILY 01/06 0900 AC 01/10 PO 0844 Sodium Chloride 2 SPRAY Q4P PRN 01/06 1145 AC 01/08 KIM 1000 Zolpidem Tartrate 5 MG AT BEDTIME NEED.. 01/07 1800 AC PO Results Last 48 Hours of Labs: Laboratory Tests 01/10 01/09 0530 1000 Hematology CBC w Diff NO MAN DIFF REQ NO MAN DIFF REQ WBC (4.8 - 10.8 /CUMM) 11.5 H 12.5 H RBC (4.20 - 5.40 /CUMM) 3.79 L 4.41 Hgb (12.0 - 16.0 G/DL) 10.5 L 12.0 Hct (37 - 47 %) 31.6 L 37.2 MCV (81.0 - 99.0 FL) 83.2 84.3 MCH (27.0 - 31.0 PG) 27.6 27.2 MCHC (33.0 - 37.0 G/DL) 33.2 32.3 L RDW (11.5 - 14.5 %) 15.4 H 16.1 H Plt Count (130 - 400 /CUMM) 460 H 490 H MPV (7.4 - 10.4 FL) 7.9 7.9 Gran % (42.2 - 75.2 %) 69.0 73.8 Lymphocytes % (20.5 - 51.1 %) 17.3 L 12.1 L Monocytes % (1.7 - 9.3 %) 7.9 8.8 Eosinophils % (0 - 5 %) 5.5 H 5.0 Basophils % (0.0 - 2.0 %) 0.3 0.3 Absolute Granulocytes (1.4 - 6.5 /CUMM) 8.0 H 9.2 H Absolute Lymphocytes (1.2 - 3.4 /CUMM) 2.0 1.5 Absolute Monocytes (0.10 - 0.60 /CUMM) 0.9 H 1.1 H Absolute Eosinophils (0.0 - 0.7 /CUMM) 0.6 0.6 Absolute Basophils (0.0 - 0.2 /CUMM) 0 0 Assessment/Plan Assessment/Plan 72 F POD 5 s/p I&D lumbar post op wound secondary to infection, VRE, staph coag neg, ? kristen, prior decompressive lumbar laminectomy L2-S1 fusion 13 weeks ago , mulitple I&Ds secondary to infection and hardware removal 12/25 with acute blood loss anemia, s/p 2 units PRBCs with good response Cont wound vac, tue/thurs/sat schedule, was changed thursday and again today Cont abx per ID - will need 6 weeks Pain regimen prn OOB w/ PT, WBAT w/ brace and wv F/u morning labs Holding warfarin per Dr. Kinney note until close to dc sc heparin Discussed with attending (DR. Roger) Core Measures Venous Thromboembolism VTE Risk Factors VTE (Previous) No Mechanical VTE Prophylaxis d/t N/A MechProphylax Ordered No VTE Pharm Prophylaxis d/t Surgical Contraindication (per dr garcia)
[2018-01-10 22:25] VITALS: BP 150/70
[2018-01-11 07:07] VITALS: BP 159/73
--- NOTE | 2018-01-11 07:10 | PN- Medicine Consult ---
Casandra Armstrong 01/11/18 0710: Assessment/PlanMedical Consult Assessment/Plan Assessment: Patient is 72-year-old woman with past medical history of TIA on plavix, hyperlipidemia, hypertension, asthma, COPD, GERD, chronic back pain status post spinal fusion, NIDD, right upper extremity DVT secondary to a recently placed PICC, now on warfarin, PVD, b/l lung nodules, was sent to ED by Ray Najera MD for persistent wound infection. Patient is postoperative day 12 status post I &D of lumbar wound with hardware removal. With multiple recent I&Ds of this wound infection. Patient was discharged from hospital on 12/31, had OR cultures positive for MRSA and was discharged on vancomycin. Patient came back to ED on for wound drainage and pain. Superficial cultures taken in ED at that time grew out VRE. Patient was continued on vancomycin and was taken to OR on 01/05 for wound debridement and wound VAC was placed. CT lumbar spine from 01/04: Again there are recent changes related to the removal of a transpedicular hardware construct with residual screw tracks visible within the L2-S1 vertebra. The L3-S1 vertebral segments appear chronically fused. Possible nonunion at L2-L3. There is an acute compression fracture of the L2 vertebral body with impaction of the upper endplate resulting in 30% vertebral body height loss anteriorly and buckling with retropulsion of the posterior cortex causing minimal indentation of the ventral thecal sac. The canal and foramina are better illustrated on the dedicated lumbar spine MRI from 01/04/2018. The known peripherally enhancing paraspinal fluid collection consistent with an abscess is also better demonstrated on prior imaging. Plan: Problem list 1. Persistent surgical site infection 2. Diabetes Mellitus 3. hx of Hypertension 4. hx of TIA 5. Hx of DVT- anticoagulation held 6. VRE and MRSA contact isolation 7. Pain management 8. Diarrhea -Patient is admitted to general medicine floor under orthopedic surgery service and medicine team is consulted for management of comorbidities. -Hemoglobin fell to 10.5 from 12 on 01/10, morning labs are pending -Blood sugars continue to be improved. -If diarrhea persists, please send stool for C. difficile given that she is on broad-spectrum antibiotics. -Continue linezolid for VRE/MRSA and fluconazol for yeast infection. pt will need a total of 6 weeks -Her pain is better well controlled with Vicodin, can try IV tylenol for breakthrough pain. -Continue the rest of her home meds including hydrochlorothiazide, omeprazole, losartan, diltiazem seemed, loratadine, gabapentin. Pain management with morphine and vicodin. -Patient's Coumadin is held, resume per orthopedic surgery recommendations, continue heparin for DVT prophylaxis. -Patient is full code. Subjective Subjective: Patient is seen and examined. She states that she is doing well and walked with PT. The pain is improving and she states that she does not want mscontin as it makes her fussy and gives her visual hallucination. The wound vac continues to put out frothy yellowish red material. Patient at worse is 11/22. Review of Systems Constitutional: Reports: see HPI. EENTM: Reports: see HPI. Objective Last 24 Hrs of Vital Signs/I&O Vital Signs Date Time Temp Pulse Resp B/P B/P Pulse O2 O2 Flow FiO2 Mean Ox Delivery Rate 01/11 0941 98.8 66 20 159/73 01/11 0855 94 Room Air Room Air 01/11 0805 Room Air Room Air 01/11 0707 98.8 66 20 159/73 97 Room Air 01/10 2225 98.3 86 20 150/70 96 Room Air 01/10 1855 97 Room Air 01/10 1439 98.0 81 20 160/65 97 Room Air 01/10 1339 98 Room Air Intake & Output 01/11 1600 01/11 0800 01/11 0000 Intake Total 180 120 Output Total 300 400 Balance -120 -280 Intake, IV 100 Intake, Oral 80 120 Number 1 Bowel Movements Output, Urine 300 400 Physical Exam General Appearance: well developed/nourished, no apparent distress, alert, awake , comfortable Head: atraumatic, normal appearance Ears, Nose, Throat: normal pharynx Neck: normal inspection, supple Cardiovascular: regular rate/rhythm Respiratory: normal breath sounds Abdomen: normal bowel sounds, soft, non-tender Back: patient was wearing chest brace Extremities: normal inspection, no edema Current Medications: Current Medications Sig/Clementine Start time Last Medication Dose Route Stop Time Status Admin Albuterol Sulfate 3 ML BID 01/05 2100 AC 01/11 INH 0854 Albuterol Sulfate 2 PUF Q6P PRN 01/05 2000 AC 01/05 INH 2350 Benzonatate 100 MG TID 01/06 0200 AC 01/11 PO 0941 Budesonide/ 2 PUF BID 01/04 2100 AC 01/11 Formoterol Fumarate INH 0945 Cyclobenzaprine HCl 5 MG .STK-MED ONE 01/10 2149 DC PO 01/10 215 Cyclobenzaprine HCl 5 MG Q12P PRN 01/05 0015 AC 01/10 PO 2150 Diltiazem HCl 300 MG DAILY 01/05 09 AC 01/11 PO 0942 Docusate Sodium 100 MG BID 01/04 2100 AC 01/09 PO 2107 Fluconazole 400 MG Q24H 01/07 1645 AC 01/10 PO 1701 Gabapentin 300 MG .STK-MED ONE 01/10 2117 DC PO 01/10 2118 Gabapentin 300 MG Q8P PRN 01/05 2000 AC 01/10 PO 2117 Heparin Sodium 5,000 UNIT Q8 01/06 0625 AC 01/11 (Porcine) SC 0517 Hydrochlorothiazide 25 MG DAILY 01/06 09 AC 01/11 PO 0941 Hydrocodone Bitart/ 1 TAB Q4P PRN 01/08 09 AC Acetaminophen PO Hydrocodone Bitart/ 2 TAB Q4P PRN 01/08 0900 AC 01/11 Acetaminophen PO 0941 Insulin Aspart 0 TIDAC 01/06 0815 AC 01/10 SC 1708 Lactobacillus 1 CAP BID 01/06 2100 AC 01/11 Acidophilus PO 0941 Linezolid 600 MG Q12 01/08 2100 AC 01/11 PO 0942 Loratadine 10 MG DAILY 01/05 09 AC 01/11 PO 0942 Losartan Potassium 100 MG DAILY 01/05 09 AC 01/11 PO 0941 Melatonin 9 MG QPM 01/04 2100 AC 01/10 PO 2058 Montelukast Sodium 10 MG 01/07 2100 AC 01/10 PO 2058 Morphine Sulfate 15 MG Q8 01/08 09 AC 01/09 PO 0639 Morphine Sulfate 2 MG Q2 HRS NEEDED PRN 01/06 08 AC 01/10 IV 2333 Omeprazole 40 MG DAILY AC 01/05 07 AC 01/11 PO 0517 Ondansetron HCl 4 MG Q6-PRN PRN 01/05 2000 AC IV Polyethylene Glycol 17 GM DAILY 01/06 0900 AC 01/10 PO 0844 Sodium Chloride 2 SPRAY Q4P PRN 01/06 1145 AC 01/08 KIM 1000 Zolpidem Tartrate 5 MG AT BEDTIME NEED.. 01/07 1800 AC PO Results Last 24 Hrs Lab/Chucky Results: Laboratory Tests 01/11/18 0520: Anion Gap 10, Estimated GFR > 60, BUN/Creatinine Ratio 25.0, CBC w Diff NO MAN DIFF REQ, RBC 3.94 L, MCV 84.5, MCH 27.2, MCHC 32.2 L, RDW 15.6 H, MPV 7.9, Gran % 65.4, Lymphocytes % 18.8 L, Monocytes % 9.9 H, Eosinophils % 5.3 H, Basophils % 0.6, Absolute Granulocytes 6.6 H, Absolute Lymphocytes 1.9, Absolute Monocytes 1.0 H, Absolute Eosinophils 0.5, Absolute Basophils 0.1 Otis HARRIS,[facility] 01/11/18 1254: Attending MD Review Statement Attending Sign Off Attending Cosign Statement: I have: examined this patient, [facility], personally reviewd images, discussd w/resident/PA/YARD DEMURRAGE CLERK, discussed mgmt plan w/anna marie, discussed mgmt plan w/CM, discussed mgmt plan w/pt, agreed w/resident/PA/YARD DEMURRAGE CLERK, amended to note. Other Findings: Patient seen and examined, doing okay. Pain is under reasonable control on current regimen. Blood sugars are in acceptable range. No fevers. White blood cell count is improving. H&H remained stable. Patient currently on linezolid as well as fluconazole per infectious disease. Medical issues are stable. Further management infection will be per orthopedic and infectious disease. Patient should be resumed back on her oral hypoglycemics upon discharge. Noted a slightly high blood pressure. She is on 3 antihypertensives. This all could be secondary to pain. Continue to monitor. Resume Coumadin when Orthopedic think it is appropriate. Currently patient on heparin subcu.
--- NOTE | 2018-01-11 07:52 | PN- General Surgery ---
Subjective Subjective: Patient lying in bed comfortable, pain controlled. tolarating normal diet, nurse reports loose stools, no fevers or chills Objective Vital Signs and I&Os Vital Signs Date Time Temp Pulse Resp B/P B/P Pulse O2 O2 Flow FiO2 Mean Ox Delivery Rate 01/11 0707 98.8 66 20 159/73 97 Room Air 01/10 2225 98.3 86 20 150/70 96 Room Air 01/10 1855 97 Room Air 01/10 1439 98.0 81 20 160/65 97 Room Air 01/10 1339 98 Room Air 01/10 0842 71 168/64 Intake & Output 01/11 0801/11 0000 01/10 1600 01/10 0800 01/10 0000 01/09 1600 Intake Total 180 120 320 450 100 Output Total 300 400 486 758 5774 450 Balance -120 -280 -30 100 -902 -450 Intake, IV 100 20 Intake, Oral 80 120 300 450 100 Number 1 2 1 Bowel Movements Output, Stool 2 Output, Urine 300 400 005 084 0579 450 Physical Exam: alert and oriented, VSS chest -CTA symmetric heart - RRR without MRG Abd - rounded without distention non-tender -loose stools this am. lumbar wound -wound vac functioning well, no erythema sourrounding wound changesd yesterday. bilateral lower extremity - calves soft bilaterally, distal pulses intact Current Medications: Current Medications Sig/Clementine Start time Last Medication Dose Route Stop Time Status Admin Albuterol Sulfate 3 ML BID 01/05 2100 AC 01/10 INH 1855 Albuterol Sulfate 2 PUF Q6P PRN 01/05 2000 AC 01/05 INH 2350 Benzonatate 100 MG TID 01/06 0200 AC 01/10 PO 2058 Budesonide/ 2 PUF BID 01/04 2100 AC 01/10 Formoterol Fumarate INH 2100 Cyclobenzaprine HCl 5 MG .STK-MED ONE 01/10 2149 DC PO 01/10 215 Cyclobenzaprine HCl 5 MG .STK-MED ONE 01/10 0931 DC PO 01/10 0932 Cyclobenzaprine HCl 5 MG Q12P PRN 01/05 0015 AC 01/10 PO 2150 Diltiazem HCl 300 MG DAILY 01/05 0900 AC 01/10 PO 0842 Docusate Sodium 100 MG BID 01/04 2100 AC 01/09 PO 210 Fluconazole 400 MG Q24H 01/07 1645 AC 01/10 PO 1701 Gabapentin 300 MG .STK-MED ONE 01/10 2117 DC PO 01/10 2118 Gabapentin 300 MG Q8P PRN 01/05 2000 AC 01/10 PO 2117 Heparin Sodium 5,000 UNIT Q8 01/06 0625 AC 01/11 (Porcine) SC 0517 Hydrochlorothiazide 25 MG DAILY 01/06 09 AC 01/10 PO 0841 Hydrocodone Bitart/ 1 TAB Q4P PRN 01/08 09 AC Acetaminophen PO Hydrocodone Bitart/ 2 TAB Q4P PRN 01/08 09 AC 01/11 Acetaminophen PO 0352 Insulin Aspart 0 TIDAC 01/06 0815 AC 01/10 SC 1708 Lactobacillus 1 CAP BID 01/06 2100 AC 01/10 Acidophilus PO 2058 Linezolid 600 MG Q12 01/08 2100 AC 01/10 PO 2058 Loratadine 10 MG DAILY 01/05 09 AC 01/10 PO 0842 Losartan Potassium 100 MG DAILY 01/05 09 AC 01/10 PO 0842 Melatonin 9 MG QPM 01/04 2100 AC 01/10 PO 2058 Montelukast Sodium 10 MG 01/07 AC 01/10 PO 2058 Morphine Sulfate 15 MG Q8 01/08 09 AC 01/09 PO 0639 Morphine Sulfate 2 MG Q2 HRS NEEDED PRN 01/06 08 AC 01/10 IV 2333 Omeprazole 40 MG DAILY AC 01/05 07 AC 01/11 PO 0517 Ondansetron HCl 4 MG Q6-PRN PRN 01/05 2000 AC IV Polyethylene Glycol 17 GM DAILY 01/06 09 AC 01/10 PO 0844 Sodium Chloride 2 SPRAY Q4P PRN 01/06 1145 AC 01/08 KIM 1000 Zolpidem Tartrate 5 MG AT BEDTIME NEED.. 01/07 1800 AC PO Results Last 48 Hours of Labs: Laboratory Tests 01/11 01/10 0520 0530 Chemistry Sodium (137 - 145 mmol/L) 140 Potassium (3.5 - 5.1 mmol/L) 4.4 Chloride (98 - 107 mmol/L) 98 Carbon Dioxide (22 - 30 mmol/L) 32 H Anion Gap (5 - 16) 10 BUN (7 - 17 mg/dL) 20 H Creatinine (0.5 - 1.0 mg/dL) 0.8 Estimated GFR (>60 ml/min) > 60 BUN/Creatinine Ratio (7 - 25 %) 25.0 Hematology CBC w Diff Pending NO MAN DIFF REQ WBC (4.8 - 10.8 /CUMM) Pending 11.5 H RBC (4.20 - 5.40 /CUMM) Pending 3.79 L Hgb (12.0 - 16.0 G/DL) Pending 10.5 L Hct (37 - 47 %) Pending 31.6 L MCV (81.0 - 99.0 FL) Pending 83.2 MCH (27.0 - 31.0 PG) Pending 27.6 MCHC (33.0 - 37.0 G/DL) Pending 33.2 RDW (11.5 - 14.5 %) Pending 15.4 H Plt Count (130 - 400 /CUMM) Pending 460 H MPV (7.4 - 10.4 FL) Pending 7.9 Gran % (42.2 - 75.2 %) 69.0 Lymphocytes % (20.5 - 51.1 %) 17.3 L Monocytes % (1.7 - 9.3 %) 7.9 Eosinophils % (0 - 5 %) 5.5 H Basophils % (0.0 - 2.0 %) 0.3 Absolute Granulocytes (1.4 - 6.5 /CUMM) 8.0 H Absolute Lymphocytes (1.2 - 3.4 /CUMM) 2.0 Absolute Monocytes (0.10 - 0.60 /CUMM) 0.9 H Absolute Eosinophils (0.0 - 0.7 /CUMM) 0.6 Absolute Basophils (0.0 - 0.2 /CUMM) 0 07/28 1000 Hematology CBC w Diff NO MAN DIFF REQ WBC (4.8 - 10.8 /CUMM) 12.5 H RBC (4.20 - 5.40 /CUMM) 4.41 Hgb (12.0 - 16.0 G/DL) 12.0 Hct (37 - 47 %) 37.2 MCV (81.0 - 99.0 FL) 84.3 MCH (27.0 - 31.0 PG) 27.2 MCHC (33.0 - 37.0 G/DL) 32.3 L RDW (11.5 - 14.5 %) 16.1 H Plt Count (130 - 400 /CUMM) 490 H MPV (7.4 - 10.4 FL) 7.9 Gran % (42.2 - 75.2 %) 73.8 Lymphocytes % (20.5 - 51.1 %) 12.1 L Monocytes % (1.7 - 9.3 %) 8.8 Eosinophils % (0 - 5 %) 5.0 Basophils % (0.0 - 2.0 %) 0.3 Absolute Granulocytes (1.4 - 6.5 /CUMM) 9.2 H Absolute Lymphocytes (1.2 - 3.4 /CUMM) 1.5 Absolute Monocytes (0.10 - 0.60 /CUMM) 1.1 H Absolute Eosinophils (0.0 - 0.7 /CUMM) 0.6 Absolute Basophils (0.0 - 0.2 /CUMM) 0 Assessment/Plan Assessment/Plan 72 F POD 6 s/p I&D lumbar post op wound secondary to infection, VRE, staph coag neg, ? kristen, prior decompressive lumbar laminectomy L2-S1 fusion 13 weeks ago , mulitple I&Ds secondary to infection and hardware removal 12/25 with acute blood loss anemia Cont wound vac, thu//sat schedule, changed on Thursday loose stool this am, if continues cx for c-diff Cont abx per ID - will need 6 weeks Pain regimen prn OOB w/ PT, WBAT w/ brace and wv F/u morning labs Holding warfarin per Dr. Kinney note until close to dc sc heparin Core Measures Venous Thromboembolism VTE Risk Factors VTE (Previous) No Mechanical VTE Prophylaxis d/t N/A MechProphylax Ordered No VTE Pharm Prophylaxis d/t Surgical Contraindication (per dr garcia)
[2018-01-11 07:59] LABS: ABSOLUTE BASOPHIL COUNT 0.1 /CUMM (0.0-0.2); ABSOLUTE EOSINOPHIL COUNT 0.5 /CUMM (0.0-0.7); ABSOLUTE GRANULOCYTE CT 6.6 /CUMM (1.4-6.5); ABSOLUTE LYMPH COUNT 1.9 /CUMM (1.2-3.4); BASOPHIL % 0.6 % (0.0-2.0); EOSINOPHIL % 5.3 % (0-5); GRANULOCYTE % 65.4 % (42.2-75.2); HEMATOCRIT 33.3 % (37-47); MEAN CORPUSCULAR HGB 27.2 PG (27.0-31.0); MEAN CORPUSCULAR HGB CONC 32.2 G/DL (33.0-37.0); MEAN CORPUSCULAR VOLUME 84.5 FL (81.0-99.0); MEAN PLATELET VOLUME 7.9 FL (7.4-10.4); PLATELET COUNT 469 /CUMM (130-400); RBC DISTRIBUTION WIDTH 15.6 % (11.5-14.5); RED BLOOD CELL CT 3.94 /CUMM (4.20-5.40)
--- NOTE | 2018-01-11 13:40 | PN- Infect Dx ---
Subjective Subjective: Appears comfortable, back pain controlled; tolarating normal diet; loose stools, no fevers or chills Review of Systems Comments: 12 points reviewed as noted, otherwise negative. Objective Last 24 Hrs of Vital Signs/I&O Vital Signs Date Time Temp Pulse Resp B/P B/P Pulse O2 O2 Flow FiO2 Mean Ox Delivery Rate 01/11 0941 98.8 66 20 159/73 01/11 0855 94 Room Air Room Air 01/11 0805 Room Air Room Air 01/11 0707 98.8 66 20 159/73 97 Room Air 01/10 2225 98.3 86 20 150/70 96 Room Air 01/10 1855 97 Room Air 01/10 1439 98.0 81 20 160/65 97 Room Air 01/10 1339 98 Room Air Intake & Output 01/11 1600 01/11 0800 01/11 0000 Intake Total 180 120 Output Total 300 400 Balance -120 -280 Intake, IV 100 Intake, Oral 80 120 Number 1 Bowel Movements Output, Urine 300 400 Physical Exam Other Physical Findings: She is awake and alert in moderate distress secondary to pain. She is afebrile. Skin reveals no rash. HEENT exam is negative. Neck is supple with no adenopathy. Lungs decreased breath sounds both bases. Heart regular rhythm with no murmur. Abdomen is soft, nontender with positive bowel sounds. Back dressing intact with wound VAC in place. Extremities trace edema both lower extremities; PICC in the left upper extremity with no inflammation at the site. Neuro is without focality Results Last 24 Hours of Lab Results: Laboratory Tests 01/11 0520 Chemistry Sodium (137 - 145 mmol/L) 140 Potassium (3.5 - 5.1 mmol/L) 4.4 Chloride (98 - 107 mmol/L) 98 Carbon Dioxide (22 - 30 mmol/L) 32 H Anion Gap (5 - 16) 10 BUN (7 - 17 mg/dL) 20 H Creatinine (0.5 - 1.0 mg/dL) 0.8 Estimated GFR (>60 ml/min) > 60 BUN/Creatinine Ratio (7 - 25 %) 25.0 Hematology CBC w Diff NO MAN DIFF REQ WBC (4.8 - 10.8 /CUMM) 10.0 RBC (4.20 - 5.40 /CUMM) 3.94 L Hgb (12.0 - 16.0 G/DL) 10.7 L Hct (37 - 47 %) 33.3 L MCV (81.0 - 99.0 FL) 84.5 MCH (27.0 - 31.0 PG) 27.2 MCHC (33.0 - 37.0 G/DL) 32.2 L RDW (11.5 - 14.5 %) 15.6 H Plt Count (130 - 400 /CUMM) 469 H MPV (7.4 - 10.4 FL) 7.9 Gran % (42.2 - 75.2 %) 65.4 Lymphocytes % (20.5 - 51.1 %) 18.8 L Monocytes % (1.7 - 9.3 %) 9.9 H Eosinophils % (0 - 5 %) 5.3 H Basophils % (0.0 - 2.0 %) 0.6 Absolute Granulocytes (1.4 - 6.5 /CUMM) 6.6 H Absolute Lymphocytes (1.2 - 3.4 /CUMM) 1.9 Absolute Monocytes (0.10 - 0.60 /CUMM) 1.0 H Absolute Eosinophils (0.0 - 0.7 /CUMM) 0.5 Absolute Basophils (0.0 - 0.2 /CUMM) 0.1 Last 24 Hours of Chucky Results: SPEC #: [id number] JOSHUA: 01/05/18 STATUS: COMP RECD: 01/05/[address]: Dania HARRIS,Ray Rose SOURCE: TRUNK/O.R. ENTR: 01/05/18 [facility] DR: Radha HARRIS,Flavio Chaudhry SPDESC: BACK LOWER ORDERED: TRUNK OR CULT COMMENT: RECEIVED TISSUE IN STERILE CUP ADDITIONAL INFORMATION: TISSUE CULTURE Procedure Result > GRAM STAIN Final 01/06/18 WHITE BLOOD CELLS RARE GRAM POSITIVE COCCI FEW IN PAIRS > TRUNK AREA OR CULTURE Final 01/10/18 Heavy growth of: VANC RESIST ENTEROCOCCUS Scant growth of STAPH COAGULASE NEGATIVE * This is a corrected result. * A prior result that was reported as final has been changed. VRE VRE Coag Neg RX AB RX AB RX AB ------ -- ------ -- ------ -- DAPTO CHUCKY S AMPICILLIN R R CEFAZOLIN R AMOX/CLAV AUGM R AMP/SULB-UNASYN R TETRACYCLINE S TRIMETH/SULFA R AZITHROMYCIN R CLINDAMYCIN S ERYTHROMYCIN R LINEZOLID S OXACILLIN R VANCOMYCIN R S 1. VANC RESIST ENTEROCOCCUS RX AB ------ -- DAPTOMYCIN CHUCKY S 1. VANC RESIST ENTEROCOCCUS RX AB ------ -- AMPICILLIN R VANCOMYCIN R 2. STAPH COAGULASE NEGATIVE RX AB ------ -- AMPICILLIN R CEFAZOLIN R AMOXICILLIN/CLAVULINIC ACID R AMPICILLIN/SULBACTAM R TETRACYCLINE S TRIMETHOPRIM/SULFAMETHOXAZOLE R AZITHROMYCIN R CLINDAMYCIN S ERYTHROMYCIN R LINEZOLID S OXACILLIN R VANCOMYCIN S Recent Imaging Studies: Lumbar CT IMPRESSION: Again there are recent changes related to the removal of a transpedicular hardware construct with residual screw tracks visible within the L2-S1 vertebra. The L3-S1 vertebral segments appear chronically fused. Possible nonunion at L2-L3. There is an acute compression fracture of the L2 vertebral body with impaction of the upper endplate resulting in 30% vertebral body height loss anteriorly and buckling with retropulsion of the posterior cortex causing minimal indentation of the ventral thecal sac. The canal and foramina are better illustrated on the dedicated lumbar spine MRI from 01/04/2018. The known peripherally enhancing paraspinal fluid collection consistent with an abscess is also better demonstrated on prior imaging. DICTATED BY: Sandra HARRIS,Stepan Kang DATE/TIME DICTATED:01/05/18848 FITTER WELDER:SANGEETA DATE/TIME TRANSCRIBED:01/05/18848 Assessment/Plan ID Impression: This is a 72-year-old woman status post decompressive lumbar laminectomy L2-S1 13 weeks prior to admission, with insertion of a cage and pedicle screws, status post multiple returns to the OR since then for surgical site infections, initially secondary to Klebsiella, followed by MRSA, with eventual removal of the hardware during her most recent surgery 2 weeks prior to admission, admitted on January 05 with persistent drainage and pain after an MRI revealed a rim-enhancing fluid collection within the operative bed centered at the L3- S1 level, now 1 days status post repeat I&D, with her OR cultures positive. 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 The coag negative Staph, isolated from just one culture, is of unclear significance, but it should be covered by the Linezolid. She continues to note soft, but not liquidy, stools. Suggestion: 1. Stool C. difficile if her stools become watery/worsening diarrhea 2. Continue Linezolid and Fluconazole to plan on a 6 week course of antibiotics 3. Will need a weekly CBC, BMP, lactic acid level and ESR while on the above antibiotics; and weekly fisher spear QT interval.
[2018-01-11 14:25] VITALS: BP 136/58
[2018-01-11 21:39] VITALS: BP 144/68
[2018-01-12 06:08] VITALS: BP 138/62
--- NOTE | 2018-01-12 07:18 | PN- Medicine Consult ---
Casandra Armstrong 01/12/18 0718: Assessment/PlanMedical Consult Assessment/Plan Assessment: Patient is 72-year-old woman with past medical history of TIA on plavix, hyperlipidemia, hypertension, asthma, COPD, GERD, chronic back pain status post spinal fusion, NIDD, right upper extremity DVT secondary to a recently placed PICC, now on warfarin, PVD, b/l lung nodules, was sent to ED by Ray Najera MD for persistent wound infection. Patient is postoperative day 12 status post I &D of lumbar wound with hardware removal. With multiple recent I&Ds of this wound infection. Patient was discharged from hospital on 12/31, had OR cultures positive for MRSA and was discharged on vancomycin. Patient came back to ED on for wound drainage and pain. Superficial cultures taken in ED at that time grew out VRE. Patient was continued on vancomycin and was taken to OR on 01/05 for wound debridement and wound VAC was placed. Plan: Problem list 1. Persistent surgical site infection 2. Diabetes Mellitus 3. hx of Hypertension 4. hx of TIA 5. Hx of DVT- anticoagulation held 6. VRE and MRSA contact isolation 7. Pain management 8. Diarrhea Patient is admitted to general medicine floor under orthopedic surgery service and medicine team is consulted for management of comorbidities.Hemoglobin has been stable. Blood sugars are well controlled, upon discharge she can restart her oral antidiabetics. Patient to continue linezolid for VRE/MRSA and fluconazol for yeast infection, she will need a total of 6 weeks. Her pain is better well controlled with Vicodin, can try IV tylenol for breakthrough pain. Continue the rest of her home meds including hydrochlorothiazide, omeprazole, losartan, diltiazem seemed, loratadine, gabapentin. Pain management with morphine and vicodin. Patient's Coumadin is held, per old records, patient developed a dvt right upper ext on 10/08 when the ultrasound showed both basilic and cephalic veins occluded distally. Patient has completed [address] Najera thinks that her DVT was provoked secondary to insertion of PICC line in right upper extremity. A follow-up Doppler on right upper extremity was negative for clot, therefore, he recommends to discontinue anticoagulation. Given that the patient currently has a back wound with wound VAC in place, Dr. Najera and Dr. Елена are in aggrement that it is reasonable to discontinue anticoagulation due to bleeding risk. Continue heparin for DVT prophylaxis. Plan is to be discharged to facility today, wound vac with irrigation will continue for 2 more weeks and then it will be transitioned to portable non iriigating wound vac. Patient is full code. Attending recommendations to follow. Subjective Subjective: Patient is seen and examined. She reports that he pain is about the same. ROS is negative for headache/dizziness/chest pain/SOB/ abdominal discomfort/ burning micturation. Patient wanted to know how she will be transported to the rehab facility and suggested that if it is out of pocket, her will transport her. Vitals are stable this morning, no new complain. Review of Systems Constitutional: Reports: see HPI. Objective Last 24 Hrs of Vital Signs/I&O Vital Signs Date Time Temp Pulse Resp B/P B/P Pulse O2 O2 Flow FiO2 Mean Ox Delivery Rate 01/12 0608 98.2 70 20 138/62 95 Room Air 01/11 2139 98.1 88 18 144/68 99 Room Air 01/12 2000 97 Room Air 01/11 1425 98.0 73 18 136/58 96 Room Air 01/11 0941 98.8 66 20 159/73 01/11 0855 94 Room Air Room Air Intake & Output 01/12 1600 01/12 0800 01/12 0000 Intake Total 220 480 Output Total 400 500 Balance -180 -20 Intake, IV 20 Intake, Oral 200 480 Output, Urine 400 500 Physical Exam General Appearance: well developed/nourished, no apparent distress, alert, comfortable Head: atraumatic, normal appearance Neck: normal inspection, supple Cardiovascular: regular rate/rhythm Respiratory: normal breath sounds, chest non-tender Back: patient is wearing hard back brace post surgery Extremities: no edema Neurologic/Psychiatric: awake, alert, oriented x 3 Skin: intact, normal color, warm/dry Current Medications: Current Medications Sig/Clementine Start time Last Medication Dose Route Stop Time Status Admin Albuterol Sulfate 3 ML BID 01/05 2100 AC 01/11 INH 1999 Albuterol Sulfate 2 PUF Q6P PRN 01/05 2000 AC 01/05 INH 2350 Benzonatate 100 MG .STK-MED ONE 01/11 1441 DC PO 01/11 144 Benzonatate 100 MG TID 01/06 200 AC 01/11 PO 2112 Budesonide/ 2 PUF BID 01/04 2100 AC 01/11 Formoterol Fumarate INH 8 Cyclobenzaprine HCl 5 MG Q12P PRN 01/05 0015 AC 01/11 PO 2224 Diltiazem HCl 300 MG DAILY 01/05 09 AC 01/11 PO 0942 Docusate Sodium 100 MG BID 01/04 2100 AC 01/09 PO 2107 Fluconazole 400 MG Q24H 01/07 1645 AC 01/11 PO 1659 Gabapentin 300 MG Q8P PRN 01/05 2000 AC 01/10 PO 2118 Heparin Sodium 5,000 UNIT Q8 01/06 06 AC 01/12 (Porcine) SC 0528 Hydrochlorothiazide 25 MG DAILY 01/06 09 AC 01/11 PO 0941 Hydrocodone Bitart/ 1 TAB Q4P PRN 01/08 09 AC Acetaminophen PO Hydrocodone Bitart/ 2 TAB Q4P PRN 01/08 09 AC 01/12 Acetaminophen PO 0206 Insulin Aspart 0 TIDAC 01/06 0815 AC 01/11 SC 1755 Lactobacillus 1 CAP BID 01/06 2100 AC 01/11 Acidophilus PO 2112 Linezolid 600 MG Q12 01/08 2100 AC 01/11 PO 2112 Loratadine 10 MG DAILY 01/05 09 AC 01/11 PO 0942 Losartan Potassium 100 MG DAILY 01/05 09 AC 01/11 PO 0941 Melatonin 9 MG QPM 01/04 2100 AC 01/11 PO 2112 Montelukast Sodium 10 MG 01/07 2100 AC 01/11 PO 211 Morphine Sulfate 15 MG Q8 01/08 09 AC 01/09 PO 0639 Morphine Sulfate 2 MG Q2 HRS NEEDED PRN 01/06 08 AC 01/11 IV 2322 Omeprazole 40 MG DAILY AC 01/05 07 AC 01/12 PO 0528 Ondansetron HCl 4 MG Q6-PRN PRN 01/05 2000 AC IV Polyethylene Glycol 17 GM DAILY 01/06 09 AC 01/10 PO 0844 Sodium Chloride 2 SPRAY Q4P PRN 01/06 1145 AC 01/08 KIM 1000 Zolpidem Tartrate 5 MG AT BEDTIME NEED.. 01/07 1800 AC PO Results Last 24 Hrs Lab/Chucky Results: Laboratory Tests 01/12/18 0531: CBC w Diff Pending, WBC Pending, RBC Pending, Hgb Pending, Hct Pending, MCV Pending, MCH Pending, MCHC Pending, RDW Pending, Plt Count Pending, MPV Pending Otis HARRIS,Kenna 01/12/18 1107: Attending MD Review Statement Attending Sign Off Attending Cosign Statement: I have: examined this patient, reviewed aval EMR data, personally reviewd images, discussd w/resident/PA/DNA SEQUENCING ASSOCIATE, discussed mgmt plan w/pt, agreed w/resident/ PA/DNA SEQUENCING ASSOCIATE, amended to note. Other Findings: Patient seen and examined, states that she is sore today. Her H&H had remained stable. White count was slightly up today from 10-11. H&H remained stable. I spoke with Dr. Najera who had asked me about patient's anticoagulation for that upper extremity DVT. Patient was diagnosed with upper extremity DVT end of September. At least 3 months of anticoagulation is indicated for provoked DVT.Due to her complicated situation that includes wide gaped wound on her back and a constant suction and patient has dropped H&H multiple times while on Coumadin. I recommend that we should involve hematology for further decision-making. Patient has been kept off of Coumadin during this admission and has been only kept on heparin subcu. Her H&H had remained stable after she received RBC transfusion. Will consult hematology to ask for the continuation of anticoagulant agent. If she gets started back again on Coumadin then her H&H should be monitored closely. Blood sugars remained stable. Continue all current management.
--- NOTE | 2018-01-12 07:23 | PN- Orthopedic ---
Subjective Subjective: Patient reports pain improves with vicodin. She reports wound vac system was changed by yesterday. She believes she will be going to a facility in the next few days once a facility capable of handling the wound vac cleanse system is secured. Objective Vital Signs and I&Os Vital Signs Date Time Temp Pulse Resp B/P B/P Pulse O2 O2 Flow FiO2 Mean Ox Delivery Rate 01/12 0608 98.2 70 20 138/62 95 Room Air 01/11 2139 98.1 88 18 144/68 99 Room Air 01/11 2000 97 Room Air 01/11 1425 98.0 73 18 136/58 96 Room Air 01/11 0941 98.8 66 20 159/73 01/11 0855 94 Room Air Room Air 01/11 0805 Room Air Room Air Intake & Output 01/12 0801/12 0000 01/11 1600 01/11 0801/11 0000 01/10 1600 Intake Total 220 480 360 180 120 320 Output Total 400 500 320 300 400 350 Balance -180 -20 40 -120 -280 -30 Intake, IV 20 100 20 Intake, Oral 200 480 360 80 120 300 Number 1 1 2 Bowel Movements Output, Urine 400 500 320 300 400 350 Physical Exam: General - alert & oriented x 3. comfortable. no acute distress Lungs - decreased breath sounds b/l Cardiac - s1s2. reg. wound - VAC in place, which appears to be working well, without evidence of leak Extremities - warm bilaterally. venodynes active b/l. calves nontender b/l. Current Medications: Current Medications Sig/Clementine Start time Last Medication Dose Route Stop Time Status Admin Albuterol Sulfate 3 ML BID 01/05 2100 AC 01/11 INH 1999 Albuterol Sulfate 2 PUF Q6P PRN 01/05 2000 AC 01/05 INH 2350 Benzonatate 100 MG .STK-MED ONE 01/11 1441 DC PO 01/11 1442 Benzonatate 100 MG TID 01/06 200 AC 01/11 PO 211 Budesonide/ 2 PUF BID 01/04 2100 AC 01/11 Formoterol Fumarate INH 2117 Cyclobenzaprine HCl 5 MG Q12P PRN 01/05 0015 AC 01/11 PO 2224 Diltiazem HCl 300 MG DAILY 01/05 09 AC 01/11 PO 0942 Docusate Sodium 100 MG BID 01/04 2100 AC 01/09 PO 2106 Fluconazole 400 MG Q24H 01/07 1645 AC 01/11 PO 1659 Gabapentin 300 MG Q8P PRN 01/05 2000 AC 01/10 PO 211 Heparin Sodium 5,000 UNIT Q8 01/06 06 AC 01/12 (Porcine) SC 0528 Hydrochlorothiazide 25 MG DAILY 01/06 09 AC 01/11 PO 0941 Hydrocodone Bitart/ 1 TAB Q4P PRN 01/08 09 AC Acetaminophen PO Hydrocodone Bitart/ 2 TAB Q4P PRN 01/08 09 AC 01/12 Acetaminophen PO 0206 Insulin Aspart 0 TIDAC 01/06 0815 AC 01/11 SC 1755 Lactobacillus 1 CAP BID 01/06 2100 AC 01/11 Acidophilus PO 2112 Linezolid 600 MG Q12 01/08 2100 AC 01/11 PO 2112 Loratadine 10 MG DAILY 01/05 09 AC 01/11 PO 0942 Losartan Potassium 100 MG DAILY 01/05 09 AC 01/11 PO 0941 Melatonin 9 MG QPM 01/04 2100 AC 01/11 PO 2112 Montelukast Sodium 10 MG 01/07 AC 01/11 PO 2112 Morphine Sulfate 15 MG Q8 01/08 09 AC 01/09 PO 0639 Morphine Sulfate 2 MG Q2 HRS NEEDED PRN 01/06 08 AC 01/11 IV 232 Omeprazole 40 MG DAILY AC 01/05 07 AC 01/12 PO 0528 Ondansetron HCl 4 MG Q6-PRN PRN 01/05 2000 AC IV Polyethylene Glycol 17 GM DAILY 01/06 09 AC 01/10 PO 0844 Sodium Chloride 2 SPRAY Q4P PRN 01/06 1145 AC 01/08 KIM 1000 Zolpidem Tartrate 5 MG AT BEDTIME NEED.. 01/07 1800 AC PO Results Last 48 Hours of Labs: Laboratory Tests 01/12 01/11 0531 0520 Chemistry Sodium (137 - 145 mmol/L) 140 Potassium (3.5 - 5.1 mmol/L) 4.4 Chloride (98 - 107 mmol/L) 98 Carbon Dioxide (22 - 30 mmol/L) 32 H Anion Gap (5 - 16) 10 BUN (7 - 17 mg/dL) 20 H Creatinine (0.5 - 1.0 mg/dL) 0.8 Estimated GFR (>60 ml/min) > 60 BUN/Creatinine Ratio (7 - 25 %) 25.0 Hematology CBC w Diff Pending NO MAN DIFF REQ WBC (4.8 - 10.8 /CUMM) Pending 10.0 RBC (4.20 - 5.40 /CUMM) Pending 3.94 L Hgb (12.0 - 16.0 G/DL) Pending 10.7 L Hct (37 - 47 %) Pending 33.3 L MCV (81.0 - 99.0 FL) Pending 84.5 MCH (27.0 - 31.0 PG) Pending 27.2 MCHC (33.0 - 37.0 G/DL) Pending 32.2 L RDW (11.5 - 14.5 %) Pending 15.6 H Plt Count (130 - 400 /CUMM) Pending 469 H MPV (7.4 - 10.4 FL) Pending 7.9 Gran % (42.2 - 75.2 %) 65.4 Lymphocytes % (20.5 - 51.1 %) 18.8 L Monocytes % (1.7 - 9.3 %) 9.9 H Eosinophils % (0 - 5 %) 5.3 H Basophils % (0.0 - 2.0 %) 0.6 Absolute Granulocytes (1.4 - 6.5 /CUMM) 6.6 H Absolute Lymphocytes (1.2 - 3.4 /CUMM) 1.9 Absolute Monocytes (0.10 - 0.60 /CUMM) 1.0 H Absolute Eosinophils (0.0 - 0.7 /CUMM) 0.5 Absolute Basophils (0.0 - 0.2 /CUMM) 0.1 Assessment/Plan Assessment/Plan This 72 F POD#7 s/p I&D lumbar post op wound secondary to infection, VRE, staph coag neg, ? kristen, prior decompressive lumbar laminectomy L2-S1 fusion 13 weeks ago, mulitple I&Ds secondary to infection and hardware removal 12/25, improved acute blood loss anemia s/p transfusion PRBCs wound vac cleanse system changed yesterday, to continue ?mon/weds/fri continue antibiotics per ID for 6 weeks pain improves with vicoddin oob with PT, wbat with back brace hep sc - dvt ppx ?restart coumadin soon will d/w Core Measures Venous Thromboembolism VTE Risk Factors VTE (Previous) No Mechanical VTE Prophylaxis d/t N/A MechProphylax Ordered No VTE Pharm Prophylaxis d/t Surgical Contraindication (per dr garcia)
--- NOTE | 2018-01-12 08:43 | Surgical Discharge Summary ---
Visit Information Visit Dates Admission Date: 01/04/18 Discharge Date: 01/13/18 History of Present Illness Chief Complaint: infected lumbar wound Medical History Neurological: TIA EENT: allergies Cardiovascular: hypertension, hyperlipidemia, CAROTID ARTERY STENOSIS BRADYCARDIA Respiratory: asthma, bronchitis, COPD, MRSA PNA Gastrointestinal: GERD Musculoskeletal: chronic back pain, osteoarthritis, spinal stenosis Endocrine: diabetes History of MRSA: Yes History of VRE: Yes History of CDIFF: No Isolation History: Contact Surgical History Pertinent Surgical History: spinal fusion (infection sp hw removal-lumbar), tubal ligation, status post carpal tunnel release right rotator cuff GANGION CYST REMOVAL TUBAL LIGATION Family History Relations & Conditions If Any: FATHER Relation not specified for: FH: myocardial infarction Psychosocial History Where Do You Live? Other Who Do You Live With? Spouse Services at Home: Nursing What is Your Primary Language? Urdu Review of Systems: see h&p Hospital Course Course Attending Physician: Dania HARRIS,Ray Rose Primary Care Physician: Flavio Garcia MD Hospital Course: This is a 72-year-old woman s/p decompressive lumbar laminectomy L2-S1 about 13 weeks prior to admission, with insertion of a cage and pedicle screws, s/p multiple returns to the OR since then for surgical site infections, initially secondary to Klebsiella, followed by MRSA, with eventual removal of the hardware during her most recent surgery 2 weeks prior to admission (12/25/17), admitted with persistent drainage and pain after an MRI revealed a rim-enhancing fluid collection within the operative bed centered at the L3- S1 level, who was taken back to the OR on 01/05/18 for repeat I&D, with her OR cultures positive. She was narrowed down to Linezolid (zyvox) for VRE isolated from all of her recent OR cultures in addition to fluconazele for Chana albicans isolated from 2 supergicial cultures. The coag negative Staph, isolated from just one culture, is of unclear significance, but it should be covered by the Linezolid. Our infectious disease team has been onboard with her co-management during her previous and current hospitizations. Her antibiotics should continue to complete a total course of 6 weeks, per ID's recommendations. She also had an irrigating wound vac cleansing system placed at the time of her surgery on 01/05/18, which has been changed several times during her admission. It is anticipated that this irrigating wound vac system should continue for approximately 2 weeks, to be transitioned to a non-irrigating wound vac system afterwards, which may need to continue for as long as 3 months. She was previously anticoagulated with coumadin for a provoked dvt of her right arm s/p PICC line, identified by venous doppler ultrasound on 10/08/17. Since this time, that PICC line was removed, and a new PICC line had been placed in her left arm on 10/30/17 for difficult venous access related issues. She was restarted on heparin subcutaneously every 8 hours post-operatively since her I&D on 01/05/18. A hematology consult was completed on 01/12/18 from , who determined she would not need to resume coumadin at this time, but has recommended checking a D-dimer and follow up draw. For transport it is essential that she remain in supine position, therefore she will require ambulance transportation to short term rehabilitation facility so as not to disrupt the integrity of the cleansing property of the woundvac dressing which is in place in the lower part of her back. Complications: see hospital course Allergies: Coded Allergies: Sulfa (Sulfonamide Antibiotics) (Intermediate, SKIN TURNS PURPLE/HOT 10/28/17) Penicillins (Mild, ITCHING 10/28/17) aspirin (HX GASTRITIS 10/28/17) ASA->BLEEDING atorvastatin (PER PT MED LIST 10/28/17) prednisone (Severe, VISION CHANGES 10/28/17) Uncoded Allergies: ENVIRONMENTAL (UNKNOWN 07/20/13) MULTIPLE ANTIBIOTICS (UNKNOWN 07/20/13) Significant Procedures: Surgery Date: 01/05/18 Name of Procedure: 1) L1-S1 Lumbar And Lumbosacral Region Surgical Site Fourth Incision, Exploration, Culture, Evacuation Of Fluid Collection, And Post-Debridement Pulse Lavage Irrigation Of All Exposed [place] Soft Tissue And Osseous Structures As Well As Grafted Fusion Mass For Recurrent Postoperative Incisional Dehiscence, Recurrent Purulent Incisional Fluid Drainage And Suggestion Of Possible Associated Underlying Recurrent Purulent Fluid Collection Consistent With Potentially Infected Surgical Site Tissues Based On Preoperative ER Culture Without Evidence Of Epidural Or Anterior Column Involvement Following Complex Index Revision And New Decompression With Extension Of Multicolumn Instrumented Fusion (10/07/2017) Complicated By Late Infection Requiring Three Previous I&Ds (10/29/2017, 12/01/2017, 12/25/2017) (MIKAYLA Cunningham-TRAVIS) 2) L2-S1 Exploration Of Posterobilateral Column Lumbar And Lumbosacral Fusion With Visual And Palpation Assessment (MIKAYLA Cunningham-TRAVIS) 3) L1-S1 Lumbar And Lumbosacral Region Initial Section (Initial 20 Square Centimeters) Of Surgical Site Suprafascial, Fascial, And Deep Subfascial Tissue Layer Sharp (Scalpel Dissection), Blunt Mechanical (Curette And Other Instrument Surface Abrasion) And Hydrodynamic (Pulse Lavage) Superficial Tissue Surface Surgical Site Debridement Of All Exposed Tissues Down To The Osseous Level Including Epidermal, Dermal, Subcutaneous, Fascial, Deep Paraspinal Muscular And Both [place] (Spinous Process, Laminar, Lateral Mass And Sacral Alar) As Well As Grafted (Incorporated Bilateral L2-S1 Fusion Mass) Osseous Tissues; Debrided Osseous Dimensions: Initial Section - Initial 20 Square Centimeters Out Of A Total Debrided Osseous Area Of Approximately 80 Square Centimeters (* = Refer To This Procedure Description For Details Of Debridement) (MIKAYLA Cunningham-TRAVIS ) 4) L1-S1 Lumbar And Lumbosacral Region Second Section (2nd 20 Square Centimeters) Of Surgical Site Suprafascial, Fascial And Deep Subfascial Tissue Layer Sharp, Blunt Mechanical And Hydrodynamic Superficial Surface Tissue Layer Surgical Site Debridement* Of All Exposed Tissues Down To And Including The Osseous Tissue Level; 2nd Section - 2nd 20 Square Centimeters Out Of A Total Debrided Osseous Area Of Approximately 80 Square Centimeters ( = Refer To This Procedure Description For Details Of Additional Sections Of Debridement) ( MIKAYLA Cunningham-TRAVIS) 5) L1-S1 Lumbar And Lumbosacral Region Third Section (3rd 20 Square Centimeters Out Of A Total Of Approximately 80 Square Centimeters) Of Surgical Site Osseous Tissue Level Debridement (MIKAYLA Cunningham-TRAVIS) 6) L1-S1 Lumbar And Lumbosacral Region Fourth Section (4th 20 Square Centimeters Out Of A Total Of Approximately 80 Square Centimeters) Of Surgical Site Osseous Tissue Level Debridement (MIKAYLA Cunningham-BC) 7) Deep Bone Biopsy Of L2-S1 Posterobilateral Intertransverse-Process Fusion Mass (MIKAYLA Cunningham-TRAVIS) 8) L2-S1 Application Of Wound Vac To Open Suprafascial Infected Lumbar Surgical Site (HILARY Cunningham) Disposition Summary Disposition Principal Diagnosis: Primary Surgically Treated Diagnoses: 1) L2-S1 Infected Superficial (Suprafascial) And Deep (Subfascial) Lumbar And Lumbosacral Region Surgical Site (Undergoing Active And Acute Surgical Treatment) 2) Moderate To Severe, Activity And Functionally Limiting Lumbosacral Region Back Pain Additional Diagnosis: Primary Surgically Treated Diagnoses: 1) L2-S1 Infected Superficial (Suprafascial) And Deep (Subfascial) Lumbar And Lumbosacral Region Surgical Site (Undergoing Active And Acute Surgical Treatment) 2) Moderate To Severe, Activity And Functionally Limiting Lumbosacral Region Back Pain s/p Surgery Date: 01/05/18 Name of Procedure: 1) L1-S1 Lumbar And Lumbosacral Region Surgical Site Fourth Incision, Exploration, Culture, Evacuation Of Fluid Collection, And Post-Debridement Pulse Lavage Irrigation Of All Exposed [place] Soft Tissue And Osseous Structures As Well As Grafted Fusion Mass For Recurrent Postoperative Incisional Dehiscence, Recurrent Purulent Incisional Fluid Drainage And Suggestion Of Possible Associated Underlying Recurrent Purulent Fluid Collection Consistent With Potentially Infected Surgical Site Tissues Based On Preoperative ER Culture Without Evidence Of Epidural Or Anterior Column Involvement Following Complex Index Revision And New Decompression With Extension Of Multicolumn Instrumented Fusion (10/07/2017) Complicated By Late Infection Requiring Three Previous I&Ds (10/29/2017, 12/01/2017, 12/25/2017) (MIKAYLA Cunningham-TRAVIS) 2) L2-S1 Exploration Of Posterobilateral Column Lumbar And Lumbosacral Fusion With Visual And Palpation Assessment (MIKAYLA Cunningham-TRAVIS) 3) L1-S1 Lumbar And Lumbosacral Region Initial Section (Initial 20 Square Centimeters) Of Surgical Site Suprafascial, Fascial, And Deep Subfascial Tissue Layer Sharp (Scalpel Dissection), Blunt Mechanical (Curette And Other Instrument Surface Abrasion) And Hydrodynamic (Pulse Lavage) Superficial Tissue Surface Surgical Site Debridement Of All Exposed Tissues Down To The Osseous Level Including Epidermal, Dermal, Subcutaneous, Fascial, Deep Paraspinal Muscular And Both [place] (Spinous Process, Laminar, Lateral Mass And Sacral Alar) As Well As Grafted (Incorporated Bilateral L2-S1 Fusion Mass) Osseous Tissues; Debrided Osseous Dimensions: Initial Section - Initial 20 Square Centimeters Out Of A Total Debrided Osseous Area Of Approximately 80 Square Centimeters (* = Refer To This Procedure Description For Details Of Debridement) (MIKAYLA Cunningham-BC ) 4) L1-S1 Lumbar And Lumbosacral Region Second Section (2nd 20 Square Centimeters) Of Surgical Site Suprafascial, Fascial And Deep Subfascial Tissue Layer Sharp, Blunt Mechanical And Hydrodynamic Superficial Surface Tissue Layer Surgical Site Debridement* Of All Exposed Tissues Down To And Including The Osseous Tissue Level; 2nd Section - 2nd 20 Square Centimeters Out Of A Total Debrided Osseous Area Of Approximately 80 Square Centimeters ( = Refer To This Procedure Description For Details Of Additional Sections Of Debridement) ( MIKAYLA Cunningham-TRAVIS) 5) L1-S1 Lumbar And Lumbosacral Region Third Section (3rd 20 Square Centimeters Out Of A Total Of Approximately 80 Square Centimeters) Of Surgical Site Osseous Tissue Level Debridement (MIKAYLA Cunningham-BC) 6) L1-S1 Lumbar And Lumbosacral Region Fourth Section (4th 20 Square Centimeters Out Of A Total Of Approximately 80 Square Centimeters) Of Surgical Site Osseous Tissue Level Debridement (MIKAYLA Cunningham-BC) 7) Deep Bone Biopsy Of L2-S1 Posterobilateral Intertransverse-Process Fusion Mass (MIKAYLA Cunningham-BC) 8) L2-S1 Application Of Wound Vac To Open Suprafascial Infected Lumbar Surgical Site (VLAD CunninghamP-TRAVIS) Discharge Disposition: SNF Discharge Instructions General Discharge Information Code Status: Full Code Patient's Diet: diabetic diet, cc2 Patient's Activity: out of bed with back brace and assistance Follow-Up Instructions/Appts: continue cleanse wound vac irrigating system for the next 2 weeks, with dressing changes every thursday / thursday / thursday, and as needed for leaks to transition to non-irrigating wound vac system after 2 more weeks of irrigating / cleanse system, to complete up to 3 months of wound vac therapy follow up with in 1-2 weeks continue PICC line care continue antibiotics, to complete total course of 6 weeks will need weekly CBC, BMP, lactic acid level and ESR while on the above antibiotics; and weekly deputy sheriff generalist/bailiff QT interval will need follow up D-dimer weekly, until discharged from rehab facility back to home continue accuchecks ACTID, with sliding scale coverage as ordered Medications at Discharge Discharge Medications: Stop taking the following medications: Warfarin Sodium (Warfarin Sodium) 5 MG TABLET ORAL As Directed Qty = 30 Warfarin Sodium (Warfarin Sodium) 7.5 MG TABLET ORAL As Directed Qty = 30 Vancomycin/0.9 % Sod Chloride (Vanco 1.25 Gm/250 Ml-0.9% NaCl) 1.25 GRAM/250 ML PLAST..BAG IV DAILY Qty = 36 Hydrocodone/Acetaminophen (Hydrocodon-Acetaminophen 5-325) 5 MG-325 MG TABLET ORAL Q4H as needed for PAIN Continue taking these medications: Cetirizine HCl (Zyrtec) 10 MG CAPSULE 1 Capsule ORAL DAILY Comments: Last Taken: 01/13/18 Time: 0830 claritin given Omeprazole (Omeprazole) 40 MG CAPSULE.DR 1 Capsule ORAL DAILY BEFORE BREAKFAST Comments: Last Taken: 01/13/18 Time: 5:30AM Multivit-Min/FA/Lutein/Zeaxant (Macular Vitamin Tablet) 500 MCG-5 MG-1 MG TABLET 1 Tablet ORAL DAILY Comments: NOT GIVEN IN HOSPITAL Budesonide/Formoterol Fumarate (Symbicort 160-4.5 Mcg Inhaler) 160 MCG-4.5 MCG/ ACTUATION HFA.AER.AD 2 PUFF Inhale through mouth TWICE DAILY Comments: Last Taken: 01/13/18 Time: 0830 Multiple Vitamin (Multivitamins) 1 EACH TABLET 1 Tablet ORAL DAILY Comments: NOT GIVEN IN HOSPITAL Montelukast Sodium (Singulair) 10 MG TABLET 1 Tablet ORAL DAILY Comments: Last Taken: 01/12/18 Time: 8PM Sitagliptin Phosphate (Januvia) 100 MG TABLET 1 Tablet ORAL DAILY Comments: NOT GIVEN IN HOSPITAL Azelastine/Fluticasone (Dymista Nasal [place]) 137 MCG-50 MCG/SPRAY SPRAY.PUMP 1 [place] Both sides of nose Comments: not given in hospital Cyclobenzaprine HCl (Cyclobenzaprine HCl) 5 MG TABLET 1 Tablet ORAL Every night as needed as needed for MUSCLE SPASMS Comments: NOT GIVEN IN HOSPITAL Diltiazem HCl (Cartia Xt) 300 MG CAP.ER.24H 1 Capsule ORAL DAILY Comments: Last Taken: 01/13/18 Time: 9AM Glimepiride (Glimepiride) 2 MG TABLET 1.5 Tablet ORAL DAILY Comments: NOT GIVEN IN HOSPITAL Melatonin (Melatonin) 3 MG TABLET 3 Tablet ORAL Every night Comments: Last Taken: 01/12/18 Time: 9PM Ascorbate Calcium (Vitamin C) 500 MG TABLET 1 Tablet ORAL DAILY Comments: not given in hospital Albuterol Sulfate (Proair Hfa) 90 MCG HFA.AER.AD 2 Puff Inhale through mouth as needed for ASTHMA/ALLERGIES Comments: Last Taken: 01/13/18 Time: 0830 Losartan/Hydrochlorothiazide (Losartan-Hctz 100-25 MG Tab) 100 MG-25 MG TABLET 1 Tablet ORAL DAILY Comments: Last Taken: 01/13/18 Time: 8:30AM Ferrous Sulfate (Ferrous Sulfate) 325 MG (65 MG IRON) TABLET 1 Tablet ORAL DAILY Comments: NOT GIVEN IN HOSPITAL Ondansetron HCl (Zofran) 4 MG TABLET 1 Tablet ORAL THREE TIMES DAILY as needed for NAUSEA/VOMITING Comments: NOT GIVEN IN HOSPITAL Lactobacillus Acidophilus (Acidophilus) 1 EACH CAPSULE 1 Capsule ORAL TWICE DAILY Comments: Last Taken: 01/13/18 Time: 0830AM Rosuvastatin Calcium (Crestor) 20 MG TABLET 1 Tablet ORAL DAILY Qty = 90 Comments: NOT GIVEN IN HOSPITAL Gabapentin (Gabapentin) 300 MG CAPSULE 300 Milligram ORAL EVERY 8 HOURS as needed for PAIN Qty = 90 Instructions: . Comments: not given in hospital Cholecalciferol (Vitamin D3) (Vitamin D) 10,000 UNIT CAPSULE 1 Capsule ORAL DAILY Comments: not given in hospital Start taking the following new medications: Docusate Sodium (Docusate Sodium) 100 MG CAPSULE 100 Milligram ORAL TWICE DAILY as needed for CONSTIPATION Days = 10 No Refills Instructions: hold for loose stool / diarrhea Comments: DID NOT ADMINSTER Benzonatate (Benzonatate) 100 MG CAPSULE 100 Milligram ORAL THREE TIMES DAILY as needed for cough Days = 14 No Refills Comments: Last Taken: 01/13/18 Time: 0820 Fluconazole (Diflucan) 100 MG TABLET 400 Milligram ORAL Q24H Days = 37 No Refills Instructions: to complete 6 weeks, started on 01/07/18 Comments: Last Taken: 01/12/18 Time: 6PM Hydrocodone/Acetaminophen (Hydrocodon-Acetaminophen 5-325) 5 MG-325 MG TABLET 1 Tablet ORAL EVERY 4 HOURS NEEDED as needed for PAIN SCALE 4-6 (MODERATE ) Days = 14 No Refills Comments: Last Taken: 01/13/18 Time: 12:45PM 2 TABS ADMINISTERED Hydrocodone/Acetaminophen (Hydrocodon-Acetaminophen 5-325) 5 MG-325 MG TABLET 2 Tablet ORAL EVERY 4 HOURS NEEDED as needed for PAIN SCALE 7-10 (SEVERE) Days = 14 No Refills Comments: Last Taken: 01/13/18 Time: 12:45PM Linezolid (Zyvox) 600 MG TABLET 600 Milligram ORAL EVERY 12 HOURS Days = 38 No Refills Instructions: to complete 6 weeks, started on 01/08/18 Comments: Last Taken: 01/13/18 Time: 0830AM Morphine Sulfate (Morphine Sulfate ER) 15 MG TABLET.ER 15 Milligram ORAL EVERY 8 HOURS as needed for PAIN SCALE 7-10 (SEVERE) Days = 14 No Refills Comments: DID NOT ADMINISTER IN HOSPITAL Sodium Chloride (Deep Sea) 0.65 % SPRAY 2 [place] In the nose EVERY 4 HOURS NEEDED as needed for CONGESTION Days = 14 No Refills Comments: DID NOT ADMINISTER IN HOSPITAL Zolpidem Tartrate (Zolpidem Tartrate) 5 MG TABLET 5 Milligram ORAL AT BEDTIME as needed for INSOMNIA Days = 14 No Refills Comments: DID NOT ADMINISTER IN HOSPITAL Insulin Aspart (Novolog) 100 UNIT/ML VIAL 0 Units SC 3 TIMES DAILY BEFORE MEALS Days = 30 No Refills Instructions: BS Sliding Scale <80 mg/dl hypoglycemia protocol, call 80-150 no change 151-200 4 units 201-250 6 251-300 8 301-350 10 351-400 12 >400 14 units, call Comments: Last Taken: 01/13/18 Time: 12PM Copies To: Radha HARRIS,Flavio Chaudhry; Alfred HARRIS,Eron Kang
[2018-01-12 08:46] LABS: ABSOLUTE BASOPHIL COUNT 0.1 /CUMM (0.0-0.2); ABSOLUTE EOSINOPHIL COUNT 0.5 /CUMM (0.0-0.7); ABSOLUTE GRANULOCYTE CT 7.3 /CUMM (1.4-6.5); ABSOLUTE LYMPH COUNT 2.1 /CUMM (1.2-3.4); BASOPHIL % 0.7 % (0.0-2.0); EOSINOPHIL % 4.5 % (0-5); GRANULOCYTE % 66.7 % (42.2-75.2); MEAN CORPUSCULAR HGB 27.3 PG (27.0-31.0); MEAN CORPUSCULAR HGB CONC 32.3 G/DL (33.0-37.0); MEAN CORPUSCULAR VOLUME 84.5 FL (81.0-99.0); MEAN PLATELET VOLUME 7.9 FL (7.4-10.4); PLATELET COUNT 455 /CUMM (130-400); RBC DISTRIBUTION WIDTH 16.1 % (11.5-14.5); RED BLOOD CELL CT 3.91 /CUMM (4.20-5.40)
--- NOTE | 2018-01-12 09:11 | Patient Discharge Instructions ---
Discharge Instructions General Discharge Information You were seen/treated for: Primary Surgically Treated Diagnoses: 1) L2-S1 Infected Superficial (Suprafascial) And Deep (Subfascial) Lumbar And Lumbosacral Region Surgical Site (Undergoing Active And Acute Surgical Treatment) 2) Moderate To Severe, Activity And Functionally Limiting Lumbosacral Region Back Pain You had these procedures: Surgery Date: 01/05/18 Name of Procedure: 1) L1-S1 Lumbar And Lumbosacral Region Surgical Site Fourth Incision, Exploration, Culture, Evacuation Of Fluid Collection, And Post-Debridement Pulse Lavage Irrigation Of All Exposed [place] Soft Tissue And Osseous Structures As Well As Grafted Fusion Mass For Recurrent Postoperative Incisional Dehiscence, Recurrent Purulent Incisional Fluid Drainage And Suggestion Of Possible Associated Underlying Recurrent Purulent Fluid Collection Consistent With Potentially Infected Surgical Site Tissues Based On Preoperative ER Culture Without Evidence Of Epidural Or Anterior Column Involvement Following Complex Index Revision And New Decompression With Extension Of Multicolumn Instrumented Fusion (10/07/2017) Complicated By Late Infection Requiring Three Previous I&Ds (10/29/2017, 12/01/2017, 12/25/2017) (Marisa, MIKAYLA-BC) 2) L2-S1 Exploration Of Posterobilateral Column Lumbar And Lumbosacral Fusion With Visual And Palpation Assessment (Marisa, MIKAYLA-BC) 3) L1-S1 Lumbar And Lumbosacral Region Initial Section (Initial 20 Square Centimeters) Of Surgical Site Suprafascial, Fascial, And Deep Subfascial Tissue Layer Sharp (Scalpel Dissection), Blunt Mechanical (Curette And Other Instrument Surface Abrasion) And Hydrodynamic (Pulse Lavage) Superficial Tissue Surface Surgical Site Debridement Of All Exposed Tissues Down To The Osseous Level Including Epidermal, Dermal, Subcutaneous, Fascial, Deep Paraspinal Muscular And Both [place] (Spinous Process, Laminar, Lateral Mass And Sacral Alar) As Well As Grafted (Incorporated Bilateral L2-S1 Fusion Mass) Osseous Tissues; Debrided Osseous Dimensions: Initial Section - Initial 20 Square Centimeters Out Of A Total Debrided Osseous Area Of Approximately 80 Square Centimeters (* = Refer To This Procedure Description For Details Of Debridement) (Marisa, LEACHER-BC ) 4) L1-S1 Lumbar And Lumbosacral Region Second Section (2nd 20 Square Centimeters) Of Surgical Site Suprafascial, Fascial And Deep Subfascial Tissue Layer Sharp, Blunt Mechanical And Hydrodynamic Superficial Surface Tissue Layer Surgical Site Debridement* Of All Exposed Tissues Down To And Including The Osseous Tissue Level; 2nd Section - 2nd 20 Square Centimeters Out Of A Total Debrided Osseous Area Of Approximately 80 Square Centimeters ( = Refer To This Procedure Description For Details Of Additional Sections Of Debridement) ( Marisa, LEACHER-BC) 5) L1-S1 Lumbar And Lumbosacral Region Third Section (3rd 20 Square Centimeters Out Of A Total Of Approximately 80 Square Centimeters) Of Surgical Site Osseous Tissue Level Debridement (Marisa, LEACHER-BC) 6) L1-S1 Lumbar And Lumbosacral Region Fourth Section (4th 20 Square Centimeters Out Of A Total Of Approximately 80 Square Centimeters) Of Surgical Site Osseous Tissue Level Debridement (Marisa, LEACHER-BC) 7) Deep Bone Biopsy Of L2-S1 Posterobilateral Intertransverse-Process Fusion Mass (Marisa LEACHER-BC) 8) L2-S1 Application Of Wound Vac To Open Suprafascial Infected Lumbar Surgical Site (Marisa, LEACHER-BC) Watch for these problems: fever>101.3, increased pain, increased redness/swelling/drainage, dizziness, shortness of breath, chest pains Other wound care: continue cleanse wound vac irrigating system, with dressing changes to continue thu / / thu, to complete 2 more weeks to transition to non-irrigating wound vac granufoam system with same dressing change schedule, anticipated to complete nearly 3 months Special Instructions: weekly blood draws for CBC, BMP, lactic acid level and ESR while on the above antibiotics; and weekly gambling monitor QT interval Make an appointment to see Dr. Najera Thursday01/18/2018, please bring a wound vac dressing change with you to that appointment. Diet Continue normal diet: No Recommended Diet: Diabetic DAILY Calorie limit of: 2200 Additional DIET Information: cc2 diet Activity Full Activity/No Limits: No Activity Self Limited: Yes Pounds, do NOT lift more than: 10 Activity Limited to: Weight bear as tolerated Other activity limits: out of bed with back brace. continue daily PT Additional ACTIVITY Info: rolling walker assistance Acute Coronary Syndrome Inclusion Criteria At AR or during hospital stay patient has or had the following: ACS DIAGNOSIS No Discharge Core Measures Meds if any: Prescribed or Continued at Discharge Meds if any: NOT Prescribed or Continued at Discharge Congestive Heart Failure Inclusion Criteria At DC or during hospital stay patient has or had the following: CHF DIAGNOSIS No Discharge Core Measures Meds if any: Prescribed or Continued at Discharge Meds if any: NOT Prescribed or Continued at Discharge Cerebrovascular accident Inclusion Criteria At DC or during hospital stay patient has or had the following: CVA/TIA Diagnosis No Discharge Core Measures Meds if any: Prescribed or Continued at Discharge Meds if any: NOT Prescribed or Continued at Discharge Venous thromboembolism Inclusion Criteria VTE Diagnosis No VTE Type NONE VTE Confirmed by (Test) NONE Discharge Core Measures - Per Current guidelines, there needs to be overlap - treatment for the first 5 days of Warfarin therapy. - If discharged on Warfarin prior to 5 days of - overlap therapy, the patient will need to be - assessed for post discharge needs including - *Post discharge parental anticoagulation - *Warfarin and/or parental anticoagulation education - *Follow up date to check INR post discharge At least 5 days overlap therapy as Inpatient No Meds if any: Prescribed or Continued at Discharge Note: Overlap Therapy is Warfarin and Anticoagulant Meds if any: NOT Prescribed or Continued at Discharge
[2018-01-12] MEDS ORDERED: DOCUSATE SODIU100 M3 PO (09:19)
[2018-01-12] MEDS ORDERED: DIFLUCAN100 M1 PO (09:46)
[2018-01-12] MEDS ORDERED: ZOLPIDEM TARTRAT5 M1 PO (09:46)
[2018-01-12] MEDS ORDERED: DEEP SEA44 ML NAS (09:46)
[2018-01-12] MEDS ORDERED: ZYVOX600 M1 PO (09:46)
[2018-01-12] MEDS ORDERED: MORPHINE SULFAT15 M3 PO (09:46)
[2018-01-12] MEDS ORDERED: BENZONATATE100 M1 PO (09:46)
[2018-01-12] MEDS ORDERED: HYDROCODON-ACE1 EAC2 PO (09:46)
[2018-01-12 10:34] VITALS: BP 138/62
[2018-01-12] MEDS ORDERED: NOVOLOG100 UNIT/2 SC (11:40)
--- NOTE | 2018-01-12 12:38 | PN- Infect Dx ---
Subjective Subjective: No fever or chills, mild lower back discomfort. Review of Systems Comments: 12 points reviewed as noted, otherwise negative. Objective Last 24 Hrs of Vital Signs/I&O Vital Signs Date Time Temp Pulse Resp B/P B/P Pulse O2 O2 Flow FiO2 Mean Ox Delivery Rate 01/12 1034 98.2 70 20 138/62 01/12 0917 97 Room Air Room Air 01/12 0826 98.2 70 20 138/62 01/12 0608 98.2 70 20 138/62 95 Room Air 01/11 2139 98.1 88 18 144/68 99 Room Air 01/11 2000 97 Room Air 01/11 1425 98.0 73 18 136/58 96 Room Air Intake & Output 01/12 1600 01/12 0800 01/12 0000 Intake Total 220 480 Output Total 400 500 Balance -180 -20 Intake, IV 20 Intake, Oral 200 480 Output, Urine 400 500 Physical Exam Other Physical Findings: She is awake and alert in moderate distress secondary to pain. She is afebrile. Skin reveals no rash. HEENT exam is negative. Neck is supple with no adenopathy. Lungs decreased breath sounds both bases. Heart regular rhythm with no murmur. Abdomen is soft, nontender with positive bowel sounds. Back dressing intact with wound VAC in place. Extremities trace edema both lower extremities; PICC in the left upper extremity with no inflammation at the site. Neuro is without focality Results Last 24 Hours of Lab Results: Laboratory Tests 01/12 01/12 1207 0531 Coagulation PT Pending INR Pending D-Dimer High Sensitivty Pending Hematology CBC w Diff NO MAN DIFF REQ WBC (4.8 - 10.8 /CUMM) 11.0 H RBC (4.20 - 5.40 /CUMM) 3.91 L Hgb (12.0 - 16.0 G/DL) 10.7 L Hct (37 - 47 %) 33.0 L MCV (81.0 - 99.0 FL) 84.5 MCH (27.0 - 31.0 PG) 27.3 MCHC (33.0 - 37.0 G/DL) 32.3 L RDW (11.5 - 14.5 %) 16.1 H Plt Count (130 - 400 /CUMM) 455 H MPV (7.4 - 10.4 FL) 7.9 Gran % (42.2 - 75.2 %) 66.7 Lymphocytes % (20.5 - 51.1 %) 19.2 L Monocytes % (1.7 - 9.3 %) 8.9 Eosinophils % (0 - 5 %) 4.5 Basophils % (0.0 - 2.0 %) 0.7 Absolute Granulocytes (1.4 - 6.5 /CUMM) 7.3 H Absolute Lymphocytes (1.2 - 3.4 /CUMM) 2.1 Absolute Monocytes (0.10 - 0.60 /CUMM) 1.0 H Absolute Eosinophils (0.0 - 0.7 /CUMM) 0.5 Absolute Basophils (0.0 - 0.2 /CUMM) 0.1 Last 24 Hours of Chucky Results: reviewed Recent Imaging Studies: reviewed Assessment/Plan ID Impression: This is a 72-year-old woman status post decompressive lumbar laminectomy L2-S1 13 weeks prior to admission, with insertion of a cage and pedicle screws, status post multiple returns to the OR since then for surgical site infections, initially secondary to Klebsiella, followed by MRSA, with eventual removal of the hardware during her most recent surgery 2 weeks prior to admission, admitted on January 05 with persistent drainage and pain after an MRI revealed a rim-enhancing fluid collection within the operative bed centered at the L3- S1 level. Stable, with temperatures remaining normal and mild leukocytosis, now 7 days status post I&D of a polymicrobial surgical site infection, on Linezolid, Day 7 for VRE isolated from all of her recent OR cultures and Fluconazole, Day 5 for Chana albicans, isolated from 2 superficial cultures. The coag negative Staph , isolated from just one culture, is of unclear significance, but it should be covered by the Linezolid. She continues to note soft, but not liquidy, stools. Suggestion: 1. Stool C. difficile if her stools become watery/worsening diarrhea 2. Continue Linezolid and Fluconazole to plan on a 6 week course of antibiotics 3. Will need a weekly CBC, BMP, lactic acid level and ESR while on the above antibiotics; and weekly campus monitor QT interval. 4. Wound care per sx.
[2018-01-12 12:45] LABS: PT 12.1 SEC (9.4-12.5)
[2018-01-12 15:02] VITALS: BP 140/80
[2018-01-12 20:50] VITALS: BP 156/66
[2018-01-13 06:47] VITALS: BP 166/60
--- NOTE | 2018-01-13 07:12 | PN- Medicine Consult ---
Jared Tucker 01/13/18 0712: Assessment/PlanMedical Consult Assessment/Plan Assessment: Ms Eduardo is a 72 year old woman w/ a PMHx of TIA, HLD, HTN, Asthma, COPD, chronic back pain s/p decompressive lumbar laminectomy L2-S1 with insertion of cage and pedicle screws, multiple surgical site infections - 13 weeks w/ Klebsiella, MRSA w/ recent I&D (day 8) of lumbar wound with hardware removal. RUE DVT ( previously on AC dc'ed due to bleeding complication), who was admitted for persistent wound infection on 01/05/18. Recent MRI revealed a rim-enhancing fluid collection within the operative bed centered at the L3- S1 level who is currently on Linezolid day 8 for VRE isolated from deep OR cultures, and Fluconazole day 6 for kristen albicans from superficial cultures. Also had coag negative staph in . She is admitted under orthopedic service, w/ medicine team has been co-managing her other comorbid conditions. Plan: Problem list: 1. Persistent surgical site infection 2. Diabetes Mellitus 3. hx of Hypertension 4. hx of TIA 5. Hx of DVT- anticoagulation held 6. VRE and MRSA contact isolation 7. Pain management 8. Diarrhea Recommendations: - Continue to monitor blood sugar levels. Current BS 160s. - Continue sliding scale insulin for now, and restart oral hypoglycemics at the time of dc. - Would follow ID recs on continuation of abx. - Pain managment w/ vicodin, and iv tylenol - As per previous discussion, continue to hold off on any anticoagulation. - Continue dvt prophylaxis. - Wound vac management as per surgical team. - No labs were drawn on 01/13/18. As per previous labs, HCT is stable, and no leucocytosis. - Continue anti-hypertensives. BP stable at this time. - Discharge planning. Final recs to follow after discussing w/ the attending. Subjective Subjective: She feels well, with no new symptoms. Afebrile, and currently has wound vac in place. She had one episode of bowel movement, and didnt think that she had diarrhea. Pain is adequately controlled at this time. No other symptoms such as shortness of breath, or chest pain. No dysurea, or abdominal pain. Review of Systems Constitutional: Reports: see HPI. Objective Last 24 Hrs of Vital Signs/I&O Vital Signs Date Time Temp Pulse Resp B/P B/P Pulse O2 O2 Flow FiO2 Mean Ox Delivery Rate 01/13 0819 68 166/60 08 0647 97.9 68 20 166/60 94 Room Air 01/12 2050 97.6 86 12 156/66 97 01/12 1917 97 Room Air Room Air 01/12 1600 Room Air 01/12 1502 98.2 82 20 140/80 98 Room Air 01/12 1034 98.2 70 20 138/62 Intake & Output 01/13 1600 01/13 0801/13 0000 Intake Total 100 300 Output Total 1050 Balance -950 300 Intake, Oral 100 300 Output, Urine 1050 Physical Exam General Appearance: no apparent distress Other Physical Findings: General Appearance: well developed/nourished, no apparent distress, alert, comfortable Head: atraumatic, normal appearance Neck: normal inspection, supple Cardiovascular: regular rate/rhythm Respiratory: normal breath sounds, chest non-tender Back: patient is wearing hard back brace post surgery. Wound was not examined. Extremities: no edema Neurologic/Psychiatric: awake, alert, oriented x 3 Skin: intact, normal color, warm/dry Current Medications: Current Medications Sig/Clementine Start time Last Medication Dose Route Stop Time Status Admin Albuterol Sulfate 3 ML BID 01/05 2100 AC 01/13 INH 0906 Albuterol Sulfate 2 PUF Q6P PRN 01/05 2000 AC 01/12 INH 1610 Benzonatate 100 MG TID 01/06 0200 AC 01/13 PO 0819 Budesonide/ 2 PUF BID 01/04 2100 AC 01/13 Formoterol Fumarate INH 0822 Cyclobenzaprine HCl 5 MG Q12P PRN 01/05 0015 AC 01/12 PO 202 Diltiazem HCl 300 MG DAILY 01/05 09 AC 01/13 PO 0820 Docusate Sodium 100 MG BID 01/04 2100 AC 01/09 PO 210 Fluconazole 400 MG Q24H 01/07 1645 AC 01/12 PO 1759 Gabapentin 300 MG .STK-MED ONE 01/12 2130 DC PO 01/12 213 Gabapentin 300 MG Q8P PRN 01/05 2000 AC 01/12 PO 213 Heparin Sodium 5,000 UNIT Q8 01/06 0625 AC 01/13 (Porcine) SC 0536 Hydrochlorothiazide 25 MG DAILY 01/06 0900 AC 01/13 PO 0819 Hydrocodone Bitart/ 1 TAB Q4P PRN 01/08 0900 AC Acetaminophen PO Hydrocodone Bitart/ 2 TAB Q4P PRN 01/08 09 AC 01/13 Acetaminophen PO 0820 Insulin Aspart 0 TIDAC 01/06 0815 AC 01/13 SC 0818 Lactobacillus 1 CAP BID 01/06 2100 AC 01/13 Acidophilus PO 08 Linezolid 600 MG Q12 01/08 2100 AC 01/13 PO 0819 Loratadine 10 MG DAILY 01/05 09 AC 01/13 PO 0819 Losartan Potassium 100 MG DAILY 01/05 09 AC 01/13 PO 0819 Melatonin 9 MG QPM 01/04 2100 AC 01/12 PO 2014 Montelukast Sodium 10 MG 2100 01/07 2100 AC 01/12 PO 2015 Morphine Sulfate 15 MG Q8 01/08 09 AC 01/09 PO 0639 Morphine Sulfate 2 MG Q2 HRS NEEDED PRN 01/06 08 AC 01/11 IV 2322 Omeprazole 40 MG DAILY AC 01/05 07 AC 01/13 PO 0536 Ondansetron HCl 4 MG Q6-PRN PRN 01/04 2000 AC IV Polyethylene Glycol 17 GM DAILY 01/06 09 AC 01/10 PO 0844 Sodium Chloride 2 SPRAY Q4P PRN 01/06 1145 AC 01/12 KIM 0828 Zolpidem Tartrate 5 MG AT BEDTIME NEED.. 01/07 1800 AC PO Results Last 24 Hrs Lab/Chucky Results: Laboratory Tests 01/12/18 1207: PT 12.1, INR 1.11, D-Dimer High Sensitivty 526 H Recent Imaging Studies: No recent imaging in the last 24 hrs. Otis HARRIS,[facility] 01/13/18 1110: Attending MD Review Statement Attending Sign Off Attending Cosign Statement: I have: examined this patient, reviewed [facility] EMR data, personally reviewd images, discussd w/resident/PA/CHEMICAL EQUIPMENT CONTROLLER, discussed mgmt plan w/anna marie, discussed mgmt plan w/CM, discussed mgmt plan w/pt, agreed w/resident/PA/CHEMICAL EQUIPMENT CONTROLLER, amended to note. Other Findings: Patient seen and examined, felt sore this morning in her back. Denies any further diarrhea. No blood work obtained this morning. Vital Signs Date Time Temp Pulse Resp B/P B/P Pulse O2 O2 Flow FiO2 Mean Ox Delivery Rate 01/13 0906 98 Room Air 01/13 0819 68 166/60 01/13 0647 97.9 68 20 166/60 94 Room Air 01/12 2050 97.6 86 12 156/66 97 01/12 1917 97 Room Air Room Air 01/12 1600 Room Air 01/12 1502 98.2 82 20 140/80 98 Room Air on exam; aox3, nad. cv; s1, s2, rrr resp; clear] abd; soft, nt, bs+ ext; no edema Laboratory Tests 01/12 1207 Coagulation PT (9.4 - 12.5 SEC) 12.1 INR (0.90 - 1.19) 1.11 D-Dimer High Sensitivty (0 - 243 ng/ml) 526 H Assessment and Recommendations: 72 y/o F with pmh sig for TIA on plavix, hyperlipidemia, hypertension, asthma, COPD, GERD, chronic back pain status post spinal fusion, NIDD, right upper extremity DVTon warfarin, PVD, b/l lung nodules, was sent to ED by Ray Najera MD for persistent wound infection, status post multiple recent I&D's of this wound infection. This time admitted on January 05 with persistent drainage and pain after an MRI revealed a rim-enhancing fluid collection within the operative bed centered at the L3- S1 level. Status post further further wound debridement with Dr. Najera. Now on Linezolid for VRE and Fluconazole for Yeast. Further abx per ID. There was discussion between the orthopod as well as hematology. It was decided that no further anticoagulation is needed. Patient has had an ultrasound that showed no DVT in the right upper extremity. At this point due to risk of bleeding from her wide gaped wound, Coumadin is held. H&H has remained stable. Blood sugars are running in acceptable range. No further diarrhea. Recommend checking with ID if there is any continued need for PICC? Continue the rest of the Mx. DVt px; hep sq. Medical issues are stable. Medicine will sign off.
--- NOTE | 2018-01-13 07:12 | PN- Housestaff ---
Subjective Review of Systems Constitutional: Reports: see HPI. Objective Last 24 Hrs of Vital Signs/I&O Vital Signs Date Time Temp Pulse Resp B/P B/P Pulse O2 O2 Flow FiO2 Mean Ox Delivery Rate 01/13 0647 97.9 68 20 166/60 94 Room Air 01/12 2050 97.6 86 12 156/66 97 01/12 1917 97 Room Air Room Air 01/12 1600 Room Air 01/12 1502 98.2 82 20 140/80 98 Room Air 01/12 1034 98.2 70 20 138/62 01/12 0917 97 Room Air Room Air 01/12 0826 98.2 70 20 138/62 Intake & Output 01/13 0800 08/ 0000 01/12 1600 Intake Total 100 300 320 Output Total 1050 200 Balance -950 300 120 Intake, Oral 100 300 320 Number 1 Bowel Movements Output, Urine 1050 200 Physical Exam General Appearance: No Acute Distress Last 24 Hrs of Lab/Chucky Results Last 24 Hrs of Labs/Mics: Laboratory Tests 01/12/18 1207: PT 12.1, INR 1.11, D-Dimer High Sensitivty 526 H
[2018-01-13 08:19] VITALS: BP 166/60
--- NOTE | 2018-01-13 12:44 | PN- Infect Dx ---
Subjective Subjective: Afebrile. She complains of a cough, with no shortness of breath. She still has back pain, which is controlled with her pain medication. Objective Last 24 Hrs of Vital Signs/I&O Vital Signs Date Time Temp Pulse Resp B/P B/P Pulse O2 O2 Flow FiO2 Mean Ox Delivery Rate 01/13 1212 Room Air Room Air 01/13 0906 98 Room Air 01/13 0819 68 166/60 01/13 0647 97.9 68 20 166/60 94 Room Air 01/12 2050 97.6 86 12 156/66 97 01/12 1917 97 Room Air Room Air 01/12 1600 Room Air 01/12 1502 98.2 82 20 140/80 98 Room Air Intake & Output 01/13 1600 01/13 0800 01/13 0000 Intake Total 100 300 Output Total 1050 Balance -950 300 Intake, Oral 100 300 Number 1 Bowel Movements Output, Urine 1050 Physical Exam Other Physical Findings: She appears comfortable in no acute distress Lungs are clear Heart regular rhythm with no murmur Back wound VAC in place Extremities PICC in place in the left upper extremity with no inflammation at the site; no cyanosis, clubbing or edema Results Last 24 Hours of Lab Results: Laboratory Tests 01/12 01/12 1207 0531 Coagulation PT (9.4 - 12.5 SEC) 12.1 INR (0.90 - 1.19) 1.11 D-Dimer High Sensitivty (0 - 243 ng/ml) 526 H Hematology CBC w Diff NO MAN DIFF REQ WBC (4.8 - 10.8 /CUMM) 11.0 H RBC (4.20 - 5.40 /CUMM) 3.91 L Hgb (12.0 - 16.0 G/DL) 10.7 L Hct (37 - 47 %) 33.0 L MCV (81.0 - 99.0 FL) 84.5 MCH (27.0 - 31.0 PG) 27.3 MCHC (33.0 - 37.0 G/DL) 32.3 L RDW (11.5 - 14.5 %) 16.1 H Plt Count (130 - 400 /CUMM) 455 H MPV (7.4 - 10.4 FL) 7.9 Gran % (42.2 - 75.2 %) 66.7 Lymphocytes % (20.5 - 51.1 %) 19.2 L Monocytes % (1.7 - 9.3 %) 8.9 Eosinophils % (0 - 5 %) 4.5 Basophils % (0.0 - 2.0 %) 0.7 Absolute Granulocytes (1.4 - 6.5 /CUMM) 7.3 H Absolute Lymphocytes (1.2 - 3.4 /CUMM) 2.1 Absolute Monocytes (0.10 - 0.60 /CUMM) 1.0 H Absolute Eosinophils (0.0 - 0.7 /CUMM) 0.5 Absolute Basophils (0.0 - 0.2 /CUMM) 0.1 Last 24 Hours of Chucky Results: No new cultures Assessment/Plan ID Impression: Stable, with temperatures remaining normal and with her white blood cell count only minimally elevated, now 8 days status post I&D of a polymicrobial surgical site infection, on Linezolid, Day 8 for VRE isolated from all of her recent OR cultures and Fluconazole, Day 6 for Chana albicans, isolated from 2 superficial cultures. The coag negative Staph, isolated from just one culture, is of unclear significance, but it should be covered by the Linezolid. Suggestion: 1. Continue Linezolid and Fluconazole to complete 6 weeks of antibiotics (until February 18) 2. Repeat ESR today and follow CBC (to follow the platelet count on Linezolid) and ESR weekly
[2018-01-13] MEDS ORDERED: HYDROCODON-ACE1 EAC2 PO (13:07)
[2018-01-13] MEDS ORDERED: WARFARIN SODIUM5 M1 PO (13:09)
[2018-01-13] MEDS ORDERED: WARFARIN SODIU7.5 M1 PO (13:09)
== END 2018-01-13 14:00 | DRG 940 ==
LOC: DELPENDDIS → ERH 18:59 → 2NA 19:31 → ERHI 19:31 → ENRESERV 20:04 → ENTRNSPT 20:20 → EDTRNSPTSTS 20:41 → EDTRNSPT 20:41 → CMPTRNSPT 20:47 → 2NA 20:56 → CMPTRNSPT 21:09 → ENTRNSPT 01-05 14:15 → EDTRNSPT 01-05 14:18 → EDTRNSPTTYP 01-05 14:18 → CMPTRNSPT 01-05 15:40 → ENTRNSPT 01-05 19:47 → EDTRNSPTSTS 01-05 19:51 → EDTRNSPT 01-05 19:51 → CMPTRNSPT 01-05 20:10 → ENPENDDIS 01-12 09:18 → 2NA 01-13 14:00
PROVIDERS: Physician Assistant; Physician Assistant Medical; Physician Assistant Surgical
PROC: 0QB00ZX Excision of Lumbar Vertebra, Open Approach, Diagnostic (ICD-10-PCS; principal; 2018-01-05)
PROC: 0SJ30ZZ Inspection of Lumbosacral Joint, Open Approach (ICD-10-PCS; principal; 2018-01-05)
PROC: 2W15X6Z Compression of Back using Pressure Dressing (ICD-10-PCS; principal; 2018-01-05)
PROC: 0J9700Z Drainage of Back Subcutaneous Tissue and Fascia with Drainage Device, Open Approach (ICD-10-PCS; principal; 2018-01-05)
PROC: 30233N1 Transfusion of Nonautologous Red Blood Cells into Peripheral Vein, Percutaneous Approach (ICD-10-PCS; principal; 2018-01-05)
DX: T81.4XXD Infection following a procedure, subsequent encounter (principal); B37.89 Other sites of candidiasis; D62 Acute posthemorrhagic anemia; I10 Essential (primary) hypertension; E78.5 Hyperlipidemia, unspecified; K21.9 Gastro-esophageal reflux disease without esophagitis; Z86.73 Personal history of transient ischemic attack (TIA), and cerebral infarction without residual deficits; T81.31XD Disruption of external operation (surgical) wound, not elsewhere classified, subsequent encounter; G89.29 Other chronic pain; E11.9 Type 2 diabetes mellitus without complications; Z79.84 Long term (current) use of oral hypoglycemic drugs; J45.909 Unspecified asthma, uncomplicated; B95.2 Enterococcus as the cause of diseases classified elsewhere; E11.65 Type 2 diabetes mellitus with hyperglycemia; D64.9 Anemia, unspecified; B95.62 Methicillin resistant Staphylococcus aureus infection as the cause of diseases classified elsewhere; Z16.22 Resistance to vancomycin related antibiotics; R19.7 Diarrhea, unspecified; Z88.0 Allergy status to penicillin; Z88.2 Allergy status to sulfonamides; Z88.8 Allergy status to other drugs, medicaments and biological substances; Z79.01 Long term (current) use of anticoagulants; Z98.51 Tubal ligation status; Z98.1 Arthrodesis status; Z79.51 Long term (current) use of inhaled steroids
CPT/HCPCS: 2NAP; 72149; 87070; 87075; 36415; 36592; 72158; 82436; 86920; 87040; 87071; 87086; 87147; 88304; 93005; 93010; 97116-GO; 97161-GP; 97530-GO; A9579; J0131; J1100; J1644; J1815; J2020; J2405; J2997; J3370; J3490; J7040; J7042; P9016

== ENCOUNTER 2018-02-21 12:46 | Emergency (ER) | payer OTHER, MEDICARE ==
[~2018-02-21] VITALS: Ht 149.9 cm; Wt 73.5 kg
[~2018-02-21 12:46] MED LIST changes: +BENZONATATE100 M1 PO; +DEEP SEA44 ML NAS; +DIFLUCAN100 M1 PO; +NOVOLOG100 UNIT/2 SC; +WARFARIN SODIU7.5 M1 PO; +WARFARIN SODIUM5 M1 PO; +ZOLPIDEM TARTRAT5 M1 PO; +ZYVOX600 M1 PO
--- NOTE | 2018-02-21 13:21 | ED GENERAL ADULT ---
History of Present Illness General Chief Complaint: General Adult Stated Complaint: BURNING WITH URINATION, PROBLEM WITH WOUND VAC Source: patient, family, old records Exam Limitations: no limitations Vital Signs & Intake/Output Vital Signs & Intake/Output Vital Signs Date Time Temp Pulse Resp B/P B/P Pulse O2 O2 Flow FiO2 Mean Ox Delivery Rate 02/21 1551 98.6 67 18 140/65 97 Room Air 02/21 1328 Room Air 02/21 1253 97.7 106 15 148/70 96 Room Air Room Air Allergies Coded Allergies: Sulfa (Sulfonamide Antibiotics) (Intermediate, SKIN TURNS PURPLE/HOT 02/21/18) Penicillins (Mild, ITCHING 02/21/18) aspirin (HX GASTRITIS 02/21/18) ASA->BLEEDING atorvastatin (PER PT MED LIST 02/21/18) prednisone (Severe, VISION CHANGES 02/21/18) Uncoded Allergies: ENVIRONMENTAL (UNKNOWN 07/20/13) MULTIPLE ANTIBIOTICS (UNKNOWN 07/20/13) Reconcile Medications Albuterol Sulfate (Proair Hfa) 90 MCG HFA.AER.AD 2 PUF INH PRN ASTHMA/ ALLERGIES (Reported) Ascorbate Calcium (Vitamin C) 500 MG TABLET 1 TAB PO DAILY SUPPLEMENT ( Reported) Azelastine/Fluticasone (Dymista Nasal [place]) 137 MCG-50 MCG/SPRAY SPRAY.PUMP 1 SPRAY NASB ALLERGIES (Reported) Benzonatate 100 MG CAPSULE 100 MG PO TID PRN cough Budesonide/Formoterol Fumarate (Symbicort 160-4.5 Mcg Inhaler) 160 MCG-4.5 MCG/ ACTUATION HFA.AER.AD 2 PUFF INH BID ASTHMA/ALLERGIES (Reported) Cetirizine HCl (Zyrtec) 10 MG CAPSULE 1 CAP PO DAILY ALLERGIES (Reported) Cholecalciferol (Vitamin D3) (Vitamin D) 10,000 UNIT CAPSULE 1 CAP PO DAILY SUPPLEMENT (Reported) Cyclobenzaprine HCl 5 MG TABLET 1 TAB PO QPMP PRN MUSCLE SPASMS (Reported) Diltiazem HCl (Cartia Xt) 300 MG CAP.ER.24H 1 CAP PO DAILY HEART (Reported) Docusate Sodium 100 MG CAPSULE 100 MG PO BID PRN CONSTIPATION hold for loose stool / diarrhea Ferrous Sulfate 325 MG (65 MG IRON) TABLET 1 TAB PO DAILY IRON, VITAMIN ( Reported) Fluconazole (Diflucan) 100 MG TABLET 400 MG PO Q24H kristen albicans, SSI to complete 6 weeks, started on 01/07/18 Gabapentin 300 MG CAPSULE 300 MG PO Q8 PRN PAIN . Glimepiride 2 MG TABLET 1.5 TAB PO DAILY DM (Reported) Hydrocodone/Acetaminophen (Hydrocodon-Acetaminophen 5-325) 5 MG-325 MG TABLET 1 TAB PO Q4P PRN PAIN SCALE 4-6 (MODERATE) Hydrocodone/Acetaminophen (Hydrocodon-Acetaminophen 5-325) 5 MG-325 MG TABLET 2 TAB PO Q4P PRN PAIN SCALE 7-10 (SEVERE) Insulin Aspart (Novolog) 100 UNIT/ML VIAL 0 UNITS SC TIDAC diabetes, sliding scale BS Sliding Scale <80 mg/dl hypoglycemia protocol, call 80-150 no change 151-200 4 units 201-250 6 251-300 8 301-350 10 351-400 12 >400 14 units, call Lactobacillus Acidophilus (Acidophilus) 1 EACH CAPSULE 1 CAP PO BID PROBIOTIC (Reported) Linezolid (Zyvox) 600 MG TABLET 600 MG PO Q12 VRE, SSI to complete 6 weeks, started on 01/08/18 Losartan/Hydrochlorothiazide (Losartan-Hctz 100-25 MG Tab) 100 MG-25 MG TABLET 1 TAB PO DAILY HTN (Reported) Melatonin 3 MG TABLET 3 TAB PO QPM SLEEP (Reported) Montelukast Sodium (Singulair) 10 MG TABLET 1 TAB PO DAILY ALLERGIES ( Reported) Morphine Sulfate (Morphine Sulfate ER) 15 MG TABLET.ER 15 MG PO Q8 PRN PAIN SCALE 7-10 (SEVERE) Multiple Vitamin (Multivitamins) 1 EACH TABLET 1 TAB PO DAILY SUPPLEMENT ( Reported) Multivit-Min/FA/Lutein/Zeaxant (Macular Vitamin Tablet) 500 MCG-5 MG-1 MG TABLET 1 TAB PO DAILY SUPPLEMENT (Reported) Nitrofurantoin Monohyd/M-Cryst (Macrobid 100 MG Capsule) 100 MG CAPSULE 1 CAP PO BID UTI Omeprazole 40 MG CAPSULE.DR 1 CAP PO DAILY AC GERD (Reported) Ondansetron HCl (Zofran) 4 MG TABLET 1 TAB PO TID PRN NAUSEA/VOMITING ( Reported) Phenazopyridine HCl (Pyridium) 200 MG TABLET 1 TAB PO TID UTI Rosuvastatin Calcium (Crestor) 20 MG TABLET 1 TAB PO DAILY CHOLESTEROL ( Reported) Sitagliptin Phosphate (Januvia) 100 MG TABLET 1 TAB PO DAILY DM (Reported) Sodium Chloride ([place]) 0.65 % SPRAY 2 SPRAY KIM Q4P PRN CONGESTION Zolpidem Tartrate 5 MG TABLET 5 MG PO AT BEDTIME PRN INSOMNIA Triage Note: PT TO ED FOR C/C OF BURNING WITH URINATION X 1 DAY. PT ALSO REPORTS LEAKING TO HER WOUND VAC ON HER BACK SINCE LAST NIGHT. Triage Nurses Notes Reviewed? 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 Patient was previously admitted to [facility] from 12/25/17-12/31/17 after being sent in by her orthopedic surgeon for persistent lumbar wound drainage status post orthopedic procedure with washout and I&D with removal of hardware and placement of CLARIBEL drainx2. She was transferred to the ICU postoperatively for blood pressure monitoring. She was treated with intravenous vancomycin for her surgical site infection for which a PICC line was placed and continued on this medication for 6 total weeks. She was ultimately discharged home with health services. Patient reports waking this morning around 5 AM from sleep with suprapubic abdominal pain for which she is the restroom which worsened her pain. She was only able to pass a small amount of urine. She states that this is how "she gets when she has a UTI". She otherwise denies any fever, chills, urinary urgency or incontinence. Additionally she is reporting some mild nasal congestion for which she is taking Mucinex and would like to discuss further treatment possibilities for her symptoms. She denies any headache or sinus fullness. She also states that her wound VAC appears to be having some difficulty but appears normal and functioning. (Gianfranco HARRIS,Sanjay) Past History Travel History Traveled to [place] past 21 day No Medical History Any Pertinent Medical History? see below for history Neurological: TIA EENT: allergies Cardiovascular: hypertension, hyperlipidemia, CAROTID ARTERY STENOSIS BRADYCARDIA Respiratory: asthma, bronchitis, COPD, MRSA PNA Gastrointestinal: GERD Musculoskeletal: chronic back pain, osteoarthritis, spinal stenosis Endocrine: diabetes History of MRSA: Yes History of VRE: Yes History of CDIFF: No Surgical History Surgical History: spinal fusion (infection sp hw removal-lumbar), tubal ligation , status post carpal tunnel release right rotator cuff GANGION CYST REMOVAL TUBAL LIGATION Psychosocial History Who do you live with Spouse Services at Home Nursing What is your primary language Kyrgyz Tobacco Use: Never used Family History Family History, If Any: FATHER Relation not specified for: FH: myocardial infarction Hx Contributory? No (Sanjay Medel MD) Review of Systems Review of Systems Constitutional: Reports: see HPI. (Sanjay Medel MD) Physical Exam Physical Exam General Appearance: well developed/nourished, no apparent distress, alert, awake , comfortable Comments: General - well developed, obese elderly woman in no acute distress HEENT - NCAT, PERRL, EOMI, anicteric sclera Neck- Supple, no JVD/HJR, no bruits, trachea midline, thyroid normal Cardio - S1, S2 w/o murmurs/gallops/rubs; regular rate and rhythm Resp - Clear to auscultation bilaterally GI - Soft, nontender, nondistended, bowel sounds present -no CVA/suprapubic tenderness Back-rigid brace in place with low back wound VAC in place appearing normal Neuro - Awake and alert, CN II - XII grossly intact Extremities - No edema, pulses intact Core Measures ACS in differential dx? No CVA/TIA Diagnosis: No Sepsis Present: No Sepsis Focused Exam Completed? No (Sanjay Medle MD) Progress Differential Diagnoses I considered the following diagnoses in my evaluation of the patient: Urinary tract infection, colitis, gastroenteritis, sepsis, pyelonephritis Plan of Care: Orders Procedure Date/time Status CULTURE,URINE 02/21 1321 Active URINALYSIS 02/21 1321 Complete LACTIC ACID 02/21 1321 Complete COMPREHENSIVE METABOLIC PANEL 02/21 1321 Complete CBC WITHOUT DIFFERENTIAL 02/21 1321 Complete Laboratory Tests 02/21/18 1621: Lactic Acid Cancelled 02/21/18 1441: Urinalysis LIGHT H, Urine Color YEL, Urine Clarity HAZY H, Urine pH 7.0, Ur Specific [place] 1.020, Urine Protein TRACE H, Urine Ketones NEG, Urine Nitrite NEG, Urine Bilirubin NEG, Urine Urobilinogen 0.2, Ur Leukocyte Esterase SMALL H , Ur Microscopic SEDIMENT EXAMINED, Urine RBC RARE, Urine WBC 10-15 H, Urine Bacteria FEW H, Hyaline Casts RARE H, Urine Hemoglobin NEG, Urine Glucose NEG 02/21/18 1335: Anion Gap 10, Estimated GFR > 60, BUN/Creatinine Ratio 18.8, Glucose 126 H, Lactic Acid 1.7, Calcium 9.5, Total Bilirubin 0.2, AST 24, ALT 35, Alkaline Phosphatase 98, Total Protein 6.4, Albumin 3.9, Globulin 2.5, Albumin/Globulin Ratio 1.6, CBC w Diff NO MAN DIFF REQ, RBC 3.57 L, MCV 81.2, MCH 27.3, MCHC 33.7, RDW 15.4 H, MPV 7.3 L, Gran % 60.1, Lymphocytes % 20.8, Monocytes % 16.3 H, Eosinophils % 2.5, Basophils % 0.3, Absolute Granulocytes 6.2, Absolute Lymphocytes 2.1, Absolute Monocytes 1.7 H, Absolute Eosinophils 0.3, Absolute Basophils 0 Microbiology 02/21 1441 URINE ROUT: Urine Culture - RECD Initial ED EKG: none Comments: Elderly woman with multiple medical problems seen for evaluation of lower abdominal discomfort with urinary hesitancy and dysuria. Vital signs remain within normal limits. Physical examination demonstrates a pleasant woman in no acute distress with a normal cardiopulmonary examination without CVA or suprapubic tenderness. Labs including CBC and serum chemistry are unremarkable including a normal WBC count. Urinalysis demonstrates 10-15 WBC with leukocyte esterase. Bladder scan is limited due to patient's body habitus. Straight cath removed 200 cc of cloudy urine. Clinically patient has urinalysis that is suggestive of a urinary tract infection given her symptoms. Patient has a sulfa allergy for which she is provided a prescription for Macrobid. She is given Pyridium for her urinary discomfort. (Gianfranco HARRIS,Sanjay) Departure Departure Disposition: HOME OR SELF CARE Condition: Stable Clinical Impression Primary Impression: UTI (urinary tract infection) Referrals: Radha HARRIS,Flavio Chaudhry (PCP/Family) Additional Instructions: Take your antibiotic as directed-be sure to finish this medication. Take Pyridium as directed for bladder discomfort. Stay hydrated, continue to take Mucinex for your nasal congestion. Have your wound VAC change tomorrow with your visiting nurse services. Contact your orthopedist should your wound VAC have any further issues. Call 911 or return to the ED should you develop further signs of infection or your symptoms worsen. Follow-up with your primary care provider. Departure Forms: Customer Survey General Discharge Information Prescriptions: Current Visit Scripts Nitrofurantoin Monohyd/M-Cryst (Macrobid 100 MG Capsule) 1 CAP PO BID #20 CAP Phenazopyridine HCl (Pyridium) 1 TAB PO TID #6 TAB (Sanjay Medel MD) Resident Co-Sign Statement Statement: ED Attending supervision documentation- I saw and evaluated the patient. I have also reviewed all the pertinent lab results and diagnostic results. I agree with the findings and the plan of care as documented in the Resident's documentation. x I have reviewed the ED Record and agree with the Resident's documentation. [] Additions or exceptions (if any) to the Resident's note and plan are summarized below: [] (Moses Virgen MD) Critical Care Note Critical Care Note Critical Care Time: non-applicable (Sanjay Medel MD)
[2018-02-21 14:04] LABS: ABSOLUTE BASOPHIL COUNT 0 /CUMM (0.0-0.2); ABSOLUTE EOSINOPHIL COUNT 0.3 /CUMM (0.0-0.7); ABSOLUTE GRANULOCYTE CT 6.2 /CUMM (1.4-6.5); ABSOLUTE LYMPH COUNT 2.1 /CUMM (1.2-3.4); ABSOLUTE MONOCYTE COUNT 1.7 /CUMM (0.10-0.60); BASOPHIL % 0.3 % (0.0-2.0); EOSINOPHIL % 2.5 % (0-5); GRANULOCYTE % 60.1 % (42.2-75.2); MEAN CORPUSCULAR HGB 27.3 PG (27.0-31.0); MEAN CORPUSCULAR HGB CONC 33.7 G/DL (33.0-37.0); MEAN CORPUSCULAR VOLUME 81.2 FL (81.0-99.0); MEAN PLATELET VOLUME 7.3 FL (7.4-10.4); PLATELET COUNT 271 /CUMM (130-400); RBC DISTRIBUTION WIDTH 15.4 % (11.5-14.5); RED BLOOD CELL CT 3.57 /CUMM (4.20-5.40); WHITE BLOOD CELL COUNT 10.3 /CUMM (4.8-10.8)
[2018-02-21] MEDS ORDERED: MACROBID 100 M100 MG PO (15:36)
[2018-02-21] MEDS ORDERED: PYRIDIUM200 M1 PO (15:38)
[2018-02-21 15:51] VITALS: BP 140/65
== END 2018-02-21 16:12 ==
LOC: ERH 12:46
PROVIDERS: Internal Medicine Interventional Cardiology
DX: N39.0 Urinary tract infection, site not specified (principal); I10 Essential (primary) hypertension; E78.5 Hyperlipidemia, unspecified; I77.1 Stricture of artery; R00.1 Bradycardia, unspecified; J45.909 Unspecified asthma, uncomplicated; J44.9 Chronic obstructive pulmonary disease, unspecified
CPT/HCPCS: 81001; 87086